=== PATIENT | female | born 1955 | race Caucasian/White ===

== ENCOUNTER → 2016-09-16 | Outpatient (REF) | payer OTHER ==
[~2016-09-16] MED LIST: /AMIT10TA PO; /ESOM40CA PO; /PRAV20TA PO; /RISE30TA PO; AMIT10TA PO; AMLO5TAB2 PO; CALC-204 PO; CELE50CA PO; CO Q100C10 PO; COLA50CA3 PO; COZA100T2 PO; CYMB1CAP PO; CYMB60CA3 PO; DETR4CAP PO; FISH500C PO; FOLI5INJ2 PO; HYDR-3713 PO; HYDR-3719 PO; HYDR200T3 PO; MAGN250T9 PO; METH2.5TA PO; NEXI40CA PO; PRIL20CA PO; PROL60SO SC; SKEL-29 PO; TOPA25TA10 PO; TRAM50TA2 PO; VICO5TAB16 PO; [UNRECOGNIZED DRUG - OTHER] PO; ambien PO; magnesium sulfate PO
== END | disposition home or self-care (01) ==
LOC: M SMT 17:13
PROVIDERS: ATTEND Nurse Practitioner Women's Health
DX: R32 Unspecified urinary incontinence (principal)

== ENCOUNTER → 2016-10-06 | Outpatient (CLI) | payer OTHER ==
--- NOTE | 2016-10-07 00:29 | ECWPNPC ---
PATIENT NAME: DUY RODRIGUEZ : 1955 GENDER: FEMALE VISIT DATE: 10/06/2016 DISCHARGE DATE: 10/06/16 0946 VISIT LOCKED DATE TIME: PHYSICIAN: ADRIANA ALLISON RESOURCE: ADRIANA ALLISON REASON FOR APPOINTMENT 1. FOLLOW UP HISTORY OF PRESENT ILLNESS HISTORY OF PRESENT ILLNESS: HERE FOR F/U AND MANAGEMENT OF CHRONIC GENERALIZED TORSO PAIN.RATING PAIN VAS 2/10.STATES SHE WAS DIAGNOSED WITH MULTIPLE SCLEROSISONE MOS. AGO.HAVING HEADACHES.USING TRAMADOL PRN AND VERY SPARINGLY.ON PREDNISONE 10MG DAILY.RESTARTED ON CELEBREX 100MG BID FROM RHEUMATOLOGY DR. 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 PAIN THE PATIENT DESCRIBES THE PAIN... FALL RISK SCREENING: SCREENING :NO FALLS IN THE PAST YEAR CURRENT MEDICATIONS TAKING AMLODIPINE 5MG TABLET 1 TAB ORAL ONCE DAILY TAKING CALCIUM 500 500-250-200 MG-MG-UNIT TABLET 1 TABLET WITH A MEAL ORALLY TWICE DAILY TAKING CO ENZYME Q-10 100 MG ORALLY ONCE A DAY TAKING COZAAR 100 MG TABLET 1 TABLET ORALLY ONCE A DAY TAKING CYMBALTA 60 MG CAPSULE DELAYED RELEASE PARTICLES 1 CAPSULE ORALLY ONCE A DAY AT BEDTIME TAKING DETROL LA 4 MG CAPSULE EXTENDED RELEASE 24 HOUR 1 CAPSULE ORALLY ONCE A DAY TAKING FOLIC ACID 1 MG TABLET 1 TABLET ORALLY ONCE A DAY TAKING NEXIUM 40 MG PACKET 1 CAPSULE ORALLY TWICE DAILY TAKING COLACE 100 MG CAPSULE 1 CAPSULE NEEDED ORALLY TWICE A DAY TAKING AMBIEN 5 MG TABLET 1 TABLET AT BEDTIME NEEDED ORALLY ONCE A DAY TAKING CYMBALTA 30 MG CAPSULE DELAYED RELEASE PARTICLES ORALLY ONCE A DAY IN AM TAKING ASPIR-81 81 MG TABLET DELAYED RELEASE 1 TABLET ORALLY ONCE A DAY TAKING METHOTREXATE 2.5 MG TABLET ORALLY DIRECTED, NOTES: WEEKLY ON TUESDAY TAKING CRESTOR 40 MG TABLET 1 TABLET ORALLY ONCE A DAY TAKING TRAMADOL HCL 50 MG TABLET 1-2 TAB ORALLY Q8H PRN MDD4 TAKING FISH OIL 500 MG CAPSULE 1 CAPSULE ORALLY DAILY TAKING PREDNISONE 10 MG TABLET 1 TABLET ORALLY BID TAKING CELEBREX 100 MG CAPSULE 1 CAPSULE ORALLY TWICE A DAY TAKING ELAVIL 10 MG TABLET 1 TABLET ORALLY ONCE A DAY NOT-TAKING SKELAXIN 800 MG TABLET 1 TABLET ORALLY THREE TIMES A DAY NOT-TAKING TOPIRAMATE 100 MG TABLET 1 TABLET ORALLY TWICE A DAY NOT-TAKING ATENOLOL 100 MG TABLET 1 TABLET ORALLY ONCE A DAY NOT-TAKING NORCO 5-325 MG TABLET 1-2 TAB ORALLY Q4-6H PRN MDD 8 NOT-TAKING VALTREX 1 GM TABLET ORALLY 1TIMES A DAY NOT-TAKING GABAPENTIN 300 MG TABLET ORALLY FOUR TIMES DAILY NOT-TAKING NICODERM CQ 7 MG/24HR PATCH 24 HOUR 1 PATCH TO SKIN TRANSDERMAL ONCE A DAY NOT-TAKING LYRICA 100 MG CAPSULE 1 CAPSULE ORALLY TWICE A DAY MDD2 NOT-TAKING VICODIN 5-500 MG TABLET 1 CAP ORALLY THREE TIMES DAILY NEEDED NOT-TAKING RESTASIS 0.05 % EMULSION 1 INTO AFFECTED EYE OPHTHALMIC TWICE A DAY NOT-TAKING LOSARTAN POTASSIUM 25 MG TABLET 1 TABLET ORALLY ONCE A DAY NOT-TAKING PROLIA 60MG/ML SUBCUTANEOUSLY DIRECTED NOT-TAKING OCUVITE ADULT 50+ 1 1 TAB ORALLY ONCE DAILY UNKNOWN CYMBALTA 60 MG CAPSULE DELAYED RELEASE PARTICLES 1 CAPSULE ORALLY BEFORE BEDTIME MEDICATION LIST REVIEWED AND RECONCILED WITH THE PATIENT PAST MEDICAL HISTORY BONE SPURS BOTH HIPS OSTEOPENIA URINARY INCONTINENCE HYPERCHOLESTEROLEMIA PERIODIC CONSTIPATION HTN CERVICALGIA AINCOMPLETE ROTATR-CUFF TEAR/RUPTR OF LEFT SHOULDER, NOT TRAUMA 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 NEW PATIENT PAIN DIARY TODAY'S VISITNOTES FROM 0-10, WHAT LEVEL IS YOUR PAIN TODAY?0 PAIN CLINIC PFS, CLERGY, PUBLIC HEALTH REFERRALS PFS REFERRAL NEEDED?NO CLERGY REFERRAL NEEDED?NO PUBLIC HEALTH REFERRAL NEEDED?NO WAS THE PROVIDER NOTIFIED OF ANY PERTINENT INFO?NO PFS REFERRAL NEEDED?NO CLERGY REFERRAL NEEDED?NO PUBLIC HEALTH REFERRAL NEEDED?NO WAS THE PROVIDER NOTIFIED OF ANY PERTINENT INFO?NO REVIEW OF SYSTEMS CONSTITUTIONAL: ANY CHANGE IN YOUR MEDICAL CONDITION? NO . RECENT ILLNESS DENIES . CHILLS NO . FEVER NO . WEIGHT LOSS DENIES . INFECTION: DO YOU HAVE NEW INFECTIONS? NO . DO YOU HAVE HISTORY OF MRSA? NO . MUSCULOSKELETAL: ANY NEW PATTERNS OF PAIN OR NUMBNESS? NO . GASTROENTEROLOGY: ANY NEW CHANGE IN BOWEL CONTROL? NO . GENITOURINARY: ANY NEW CHANGE IN BLADDER CONTROL? NO . IS THERE A CHANCE YOU COULD BE ? NO . HEMATOLOGY/LYMPH: DO YOU TAKE ANY BLOOD THINNERS? (FOR EXAMPLE- COUMADIN, PLAVIX, AGGRENOX, PLATEL, PRADAXA, OR XARELTO) NO . WHEN WAS YOUR LAST DOSE? DATE: TIME: . NEUROLOGY: HAVE YOU FALLEN IN THE PAST 6 MONTHS? NO . ANY NEW EXTREMITY NUMBNESS OR WEAKNESS? NO . CARDIOLOGY: DO YOU HAVE A PACEMAKER OR DEFIBRILLATOR? NO . CHEST PAIN DENIES . SHORTNESS OF BREATH DENIES . RESPIRATORY: HAVE YOU BEEN SICK IN THE PAST WEEK? NO . FEVER NO . FLU LIKE SYMPTOMS? NO . COUGH NO, DENIES . SHORTNESS OF BREATH DENIES . INTEGUMENTARY: DO YOU HAVE ANY RASHES OR OPEN SORES? NO . ALLERGIC/IMMUNO: ARE YOU ALLERGIC TO SHELLFISH OR IV DYE? NO . ANY NEW ALLERGIES? NO . PSYCHIATRIC: DO YOU HAVE THOUGHTS OF HURTING YOURSELF OR SOMEONE ELSE? NO . ARE YOU ABUSED, NEGLECTED, OR IN AN UNSAFE ENVIRONMENT? NO . ENDOCRINOLOGY: ARE YOU DIABETIC? NO . OTHER: DO YOU NEED ANY PRESCRIPTIONS? NO . IF YES, PLEASE LIST: ____ . ANY NEW PROBLEMS WITH YOUR MEDICATIONS? NO . WHEN DID YOU LAST EAT? ____ . WHEN DID YOU LAST DRINK? ____ . WHAT DID YOU LAST DRINK? ____ . NAME OF PERSON DRIVING YOU HOME? ____ . DO YOU HAVE ANY OTHER QUESTIONS OR CONCERNS NO . REVIEWED BY: PROVIDER: ADRIANA RICHMOND . REPORTS NUMBNESS IN HAND AND FEET.RECENT DIAGNOSIS OF MULTIPLE SCLEROSIS. VITAL SIGNS WT 125 LBS, HT 60 IN, BMI 24.41 INDEX, BP 155/73 MM HG, HR 108 /MIN, RR 16 /MIN, TEMP 98.7 F, OXYGEN SAT % 98, NA INITIALS TL 0835, REVIEWED BY: KG. EXAMINATION GENERAL EXAMINATION: LUNGS:LUNG SOUNDS ARE CLEAR. HEART:HEART RATE REGULAR. MUSCULOSKELETAL:*MUSCLE STRENGTH TESTING UPPER AND LOWER EXTREMITIES SHOWING WEAKNESS L>R.CLONUS NOTED BILAT LOWER EXTREMITIES.DTR-4+BILAT LOWER EXTREMITIES.MULTIPLE AREAS OF TENDER SPOTS INDICATIVE OF PMR/FIBROMYALGIA.. DIAGNOSTIC: . 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 IT IS NOT A COPY OF THE [employer] PROGRESS NOTE. ED
== END ==
LOC: M PAIN 08:40
PROVIDERS: ATTEND Nurse Practitioner Family
DX: Z09 Encounter for follow-up examination after completed treatment for conditions other than malignant neoplasm (principal); G89.29 Other chronic pain; M35.3 Polymyalgia rheumatica; G35 Multiple sclerosis; M54.5 Low back pain; M47.812 Spondylosis without myelopathy or radiculopathy, cervical region; M85.80 Other specified disorders of bone density and structure, unspecified site; E78.00 Pure hypercholesterolemia, unspecified; I65.21 Occlusion and stenosis of right carotid artery; I10 Essential (primary) hypertension; G25.0 Essential tremor; G46.7 Other lacunar syndromes; Z88.0 Allergy status to penicillin; Z88.8 Allergy status to other drugs, medicaments and biological substances; Z79.82 Long term (current) use of aspirin; Z79.891 Long term (current) use of opiate analgesic; Z79.52 Long term (current) use of systemic steroids; Z79.899 Other long term (current) drug therapy; Z86.73 Personal history of transient ischemic attack (TIA), and cerebral infarction without residual deficits

== ENCOUNTER → 2017-01-12 | Outpatient (CLI) | payer OTHER ==
--- NOTE | 2017-02-02 01:43 | ECWPNPC ---
PATIENT NAME: DUY RODRIGUEZ : 1955 GENDER: FEMALE VISIT DATE: 01/12/2017 DISCHARGE DATE: 01/12/17 1208 VISIT LOCKED DATE TIME: PHYSICIAN: ADRIANA ALLISON RESOURCE: ADRIANA ALLISON REASON FOR APPOINTMENT 1. CHRONIC PAIN HISTORY OF PRESENT ILLNESS HISTORY OF PRESENT ILLNESS: HERE FOR FOLLOW UP OF CHRONIC LOW BACK PAIN AND SHOULDER AND NECK PAIN.RECENTLY HAD 4 MONTHS DOSE PACK OF PREDNISONE WITH SOME IMPROVEMENT IN PAIN.USING HYDROCODONE 5/325 UP TO 4 TABS PER DAY THAT IS SOMEWHAT HELPFUL.RATING PAIN VAS 6/10.PAIN IS LOCATED MAINLY IN NECK AND JOINTS.DESCRIBES PAIN INTERMITTENT BURNING AND ACHING.PAIN IS AGGREVATED BY INCREASED ACTIVITY. FALL RISK SCREENING: SCREENING :NO FALLS IN THE PAST YEAR CURRENT MEDICATIONS TAKING AMLODIPINE 5MG TABLET 1 TAB ORAL ONCE DAILY TAKING CALCIUM 500 500-250-200 MG-MG-UNIT TABLET 1 TABLET WITH A MEAL ORALLY TWICE DAILY TAKING CO ENZYME Q-10 100 MG ORALLY ONCE A DAY TAKING COZAAR 100 MG TABLET 1 TABLET ORALLY ONCE A DAY TAKING CYMBALTA 60 MG CAPSULE DELAYED RELEASE PARTICLES 1 CAPSULE ORALLY ONCE A DAY AT BEDTIME TAKING DETROL LA 4 MG CAPSULE EXTENDED RELEASE 24 HOUR 1 CAPSULE ORALLY ONCE A DAY TAKING FOLIC ACID 1 MG TABLET 1 TABLET ORALLY ONCE A DAY TAKING NEXIUM 40 MG PACKET 1 CAPSULE ORALLY TWICE DAILY TAKING COLACE 100 MG CAPSULE 1 CAPSULE NEEDED ORALLY TWICE A DAY TAKING AMBIEN 5 MG TABLET 1 TABLET AT BEDTIME NEEDED ORALLY ONCE A DAY TAKING CYMBALTA 30 MG CAPSULE DELAYED RELEASE PARTICLES ORALLY ONCE A DAY IN AM TAKING ASPIR-81 81 MG TABLET DELAYED RELEASE 1 TABLET ORALLY ONCE A DAY TAKING METHOTREXATE 2.5 MG TABLET 6 TABS ORALLY DIRECTED, NOTES: WEEKLY ON TUESDAY TAKING CRESTOR 40 MG TABLET 1 TABLET ORALLY ONCE A DAY TAKING FISH OIL 500 MG CAPSULE 1 CAPSULE ORALLY DAILY TAKING CELEBREX 100 MG CAPSULE 1 CAPSULE ORALLY TWICE A DAY TAKING ELAVIL 10 MG TABLET 1 TABLET ORALLY ONCE A DAY TAKING NORCO 5-325 MG TABLET 1-2 TAB ORALLY Q4-6H PRN PAIN MDD4 TAKING COLACE 100 MG CAPSULE 1 CAPSULE NEEDED ORALLY ONCE A DAY NOT-TAKING PREDNISONE 10 MG TABLET 1 TABLET ORALLY BID NOT-TAKING TRAMADOL HCL 50 MG TABLET 1-2 TAB ORALLY Q8H PRN MDD4 NOT-TAKING SKELAXIN 800 MG TABLET 1 TABLET ORALLY THREE TIMES A DAY NOT-TAKING TOPIRAMATE 100 MG TABLET 1 TABLET ORALLY TWICE A DAY NOT-TAKING ATENOLOL 100 MG TABLET 1 TABLET ORALLY ONCE A DAY NOT-TAKING VALTREX 1 GM TABLET ORALLY 1TIMES A DAY NOT-TAKING GABAPENTIN 300 MG TABLET ORALLY FOUR TIMES DAILY NOT-TAKING NICODERM CQ 7 MG/24HR PATCH 24 HOUR 1 PATCH TO SKIN TRANSDERMAL ONCE A DAY NOT-TAKING LYRICA 100 MG CAPSULE 1 CAPSULE ORALLY TWICE A DAY MDD2 NOT-TAKING VICODIN 5-500 MG TABLET 1 CAP ORALLY THREE TIMES DAILY NEEDED NOT-TAKING RESTASIS 0.05 % EMULSION 1 INTO AFFECTED EYE OPHTHALMIC TWICE A DAY NOT-TAKING LOSARTAN POTASSIUM 25 MG TABLET 1 TABLET ORALLY ONCE A DAY NOT-TAKING PROLIA 60MG/ML SUBCUTANEOUSLY DIRECTED NOT-TAKING OCUVITE ADULT 50+ 1 1 TAB ORALLY ONCE DAILY UNKNOWN CYMBALTA 60 MG CAPSULE DELAYED RELEASE PARTICLES 1 CAPSULE ORALLY BEFORE BEDTIME MEDICATION LIST REVIEWED AND RECONCILED WITH THE PATIENT PAST MEDICAL HISTORY BONE SPURS BOTH HIPS OSTEOPENIA URINARY INCONTINENCE HYPERCHOLESTEROLEMIA PERIODIC CONSTIPATION HTN CERVICALGIA AINCOMPLETE ROTATR-CUFF TEAR/RUPTR OF LEFT SHOULDER, NOT TRAUMA TIA 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 NO . CHILLS NO . FEVER NO . INFECTION: DO YOU HAVE NEW INFECTIONS? NO . DO YOU HAVE HISTORY OF MRSA? NO . MUSCULOSKELETAL: ANY NEW PATTERNS OF PAIN OR NUMBNESS? YES ARMS LEGS/ . GASTROENTEROLOGY: ANY NEW CHANGE IN BOWEL CONTROL? NO . GENITOURINARY: ANY NEW CHANGE IN BLADDER CONTROL? NO . IS THERE A CHANCE YOU COULD BE ? NO . HEMATOLOGY/LYMPH: DO YOU TAKE ANY BLOOD THINNERS? (FOR EXAMPLE- COUMADIN, PLAVIX, AGGRENOX, PLATEL, PRADAXA, OR XARELTO) NO . WHEN WAS YOUR LAST DOSE? DATE: TIME: . NEUROLOGY: HAVE YOU FALLEN IN THE PAST 6 MONTHS? NO . ANY NEW EXTREMITY NUMBNESS OR WEAKNESS? NO . CARDIOLOGY: DO YOU HAVE A PACEMAKER OR DEFIBRILLATOR? NO . RESPIRATORY: HAVE YOU BEEN SICK IN THE PAST WEEK? NO . FEVER NO . FLU LIKE SYMPTOMS? NO . COUGH NO . INTEGUMENTARY: DO YOU HAVE ANY RASHES OR OPEN SORES? NO . ALLERGIC/IMMUNO: ARE YOU ALLERGIC TO SHELLFISH OR IV DYE? NO . ANY NEW ALLERGIES? NO . PSYCHIATRIC: DO YOU HAVE THOUGHTS OF HURTING YOURSELF OR SOMEONE ELSE? NO . ARE YOU ABUSED, NEGLECTED, OR IN AN UNSAFE ENVIRONMENT? NO . ENDOCRINOLOGY: ARE YOU DIABETIC? NO . OTHER: DO YOU NEED ANY PRESCRIPTIONS? NO . IF YES, PLEASE LIST: ____ . ANY NEW PROBLEMS WITH YOUR MEDICATIONS? NO . WHEN DID YOU LAST EAT? ____ . WHEN DID YOU LAST DRINK? ____ . WHAT DID YOU LAST DRINK? ____ . NAME OF PERSON DRIVING YOU HOME? ____ . DO YOU HAVE ANY OTHER QUESTIONS OR CONCERNS NO . REVIEWED BY: PROVIDER: ADRIANA RICHMOND . VITAL SIGNS WT 139.0 LBS, HT 60 IN, BMI 27.14 INDEX, BP 128/69 MM HG, HR 98 /MIN, RR 16 /MIN, TEMP 97.9 F, OXYGEN SAT % 96%, SAFE IN ENV? (Y/N) YES, NA INITIALS TL 1110, REVIEWED BY: KG. EXAMINATION GENERAL EXAMINATION: LUNGS:LUNG SOUNDS ARE CLEAR. HEART:HEART RATE REGULAR. MUSCULOSKELETAL:*MUSCLE STRENGTH TESTING UPPER AND LOWER EXTREMITIES SHOWING WEAKNESS L>R.CLONUS NOTED BILAT LOWER EXTREMITIES.DTR-4+BILAT LOWER EXTREMITIES.MULTIPLE AREAS OF TENDER SPOTS INDICATIVE OF PMR/FIBROMYALGIA.. DIAGNOSTIC: . 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 BRINGS IN MEDICATIONS WHICH IS APPROPRIATE FOR WHAT WAS DISPENSED. RECENT URINE TOXICOLOGY REVIEWED. NO UNAUTHORIZED MEDICATIONS. NO ILLICIT SUBSTANCES AND PRESCRIBED MEDICATIONS WERE PRESENT. , RISKS AND BENEFITS OF NARCOTIC/OPIOD MEDICATIONS WERE REVIEWED WITH PATIENT - THIS INCLUDES BUT IS NOT LIMITED TO RISK OF DEPENDANCE/DEVELOPMENT OF ADDICTION, MOOD DISTURBANCE AND DEPRESSION, OSTEOPOROSIS, HORMONAL AND LABIDAL CHANGES, RESPIRATORY DEPRESSION AND . PATIENT IS ADVISED NOT TO DRIVE WHILE ON THESE MEDICATIONS. PROCEDURE CODES FA211 ESTABILISHED PATIENT [facility] CHARGE DISPOSITION & COMMUNICATION FOLLOW UP 4 WEEKS ELECTRONICALLY SIGNED BY YI PENNY ON 02/01/2017 AT 04:53 PM EDT DISCLAIMER : THIS IS A VISIT SUMMARY EXTRACTED FROM THE [employer] CHART. IT IS NOT A COPY OF THE [employer] PROGRESS NOTE. ED
== END ==
LOC: M PAIN 11:00
PROVIDERS: ATTEND Nurse Practitioner Family
DX: G89.29 Other chronic pain (principal); M47.12 Other spondylosis with myelopathy, cervical region; M85.80 Other specified disorders of bone density and structure, unspecified site; E78.00 Pure hypercholesterolemia, unspecified; K59.00 Constipation, unspecified; I10 Essential (primary) hypertension; M35.3 Polymyalgia rheumatica; I65.22 Occlusion and stenosis of left carotid artery; G35 Multiple sclerosis; G46.7 Other lacunar syndromes; G25.0 Essential tremor; Z86.73 Personal history of transient ischemic attack (TIA), and cerebral infarction without residual deficits; Z79.891 Long term (current) use of opiate analgesic; Z79.82 Long term (current) use of aspirin; Z79.899 Other long term (current) drug therapy; Z88.0 Allergy status to penicillin; Z88.1 Allergy status to other antibiotic agents

== ENCOUNTER → 2017-02-11 | Outpatient (CLI) | payer OTHER ==
--- NOTE | 2017-02-23 23:45 | ECWPNPC ---
PATIENT NAME: DUY RODRIGUEZ : 1955 GENDER: FEMALE VISIT DATE: 02/11/2017 DISCHARGE DATE: 02/11/17 1003 VISIT LOCKED DATE TIME: PHYSICIAN: ADRIANA ALLISON RESOURCE: ADRIANA ALLISON REASON FOR APPOINTMENT 1. L SHOULDER HISTORY OF PRESENT ILLNESS HISTORY OF PRESENT ILLNESS: HERE FOR F/U OF GENERALIZED BACK PAIN AND UPPER BACK PAIN L>R.USING HYDROCODONE 5/325 Q6H PRN FOR SEVERE PAIN WITH SOME IMPROVEMENT.RATING PAIN VAS 7/10 MAINLY LEFT SHOULDER.PAIN IS AGGREVATED BY USE OF LEFT ARM.PATIENT STATES SHE WAS UPSET AT OUR LAST VISIT AFTER OUR DISCUSSION ON USE OF HYDROCODONE ON A SCHEDULED BASIS 4X PER DAY.WE TOLD HER WE DIDNT WANT HER TO TAKE IT 4X DAY AND ONLY TO USE IT PRN FOR SEVERE PAIN EPISODES #60 FOR ONE MONTH SUPPLY.SHE HAS TAKEN HERSELF OFF MEDICATION WE WANTED HER ON AND HAS RESTARTED HYDROCODONE ON A SCHEDULED BASIS.SHE THOUGHT I WAS ACCUSING HER OF DRUG SEEKING.SHE HAS NOT BEEN HERE ON A REGULAR BASIS AND JAYDA INFORMED HER THAT WE HAVE TO MONITOR THESE MEDICATIONS ON A MONTHLY BASIS.SHE DID SEEM TO UNDERSTAND OUR POSITION AFTER MUCH DISCUSSION TODAY. PAIN THE PATIENT DESCRIBES THE PAIN... FALL RISK SCREENING: SCREENING :NO FALLS IN THE PAST YEAR CURRENT MEDICATIONS TAKING CALCIUM 500 500-250-200 MG-MG-UNIT TABLET 1 TABLET WITH A MEAL ORALLY TWICE DAILY TAKING CO ENZYME Q-10 100 MG ORALLY ONCE A DAY TAKING COZAAR 100 MG TABLET 1 TABLET ORALLY ONCE A DAY TAKING CYMBALTA 60 MG CAPSULE DELAYED RELEASE PARTICLES 1 CAPSULE ORALLY ONCE A DAY AT BEDTIME TAKING DETROL LA 4 MG CAPSULE EXTENDED RELEASE 24 HOUR 1 CAPSULE ORALLY ONCE A DAY TAKING FOLIC ACID 1 MG TABLET 1 TABLET ORALLY ONCE A DAY TAKING NEXIUM 40 MG PACKET 1 CAPSULE ORALLY TWICE DAILY TAKING COLACE 100 MG CAPSULE 1 CAPSULE NEEDED ORALLY TWICE A DAY TAKING AMBIEN 5 MG TABLET 1 TABLET AT BEDTIME NEEDED ORALLY ONCE A DAY TAKING ASPIR-81 81 MG TABLET DELAYED RELEASE 1 TABLET ORALLY ONCE A DAY TAKING METHOTREXATE 2.5 MG TABLET 6 TABS ORALLY DIRECTED, NOTES: WEEKLY ON TUESDAY TAKING CRESTOR 40 MG TABLET 1 TABLET ORALLY ONCE A DAY TAKING FISH OIL 500 MG CAPSULE 1 CAPSULE ORALLY DAILY TAKING CELEBREX 100 MG CAPSULE 1 CAPSULE ORALLY TWICE A DAY TAKING NORCO 5-325 MG TABLET 1 ORALLY Q4-6H PRN MDD2 #60 TAB.SHOULD LAST 30 DAYS TAKING VITAMIN D3 1000 UNIT TABLET 1 TABLET ORALLY ONCE A DAY TAKES 3000 UNITS PER DAY NOT-TAKING AMLODIPINE 5MG TABLET 1 TAB ORAL ONCE DAILY NOT-TAKING CYMBALTA 30 MG CAPSULE DELAYED RELEASE PARTICLES ORALLY ONCE A DAY IN AM NOT-TAKING ELAVIL 10 MG TABLET 1 TABLET ORALLY ONCE A DAY NOT-TAKING COLACE 100 MG CAPSULE 1 CAPSULE NEEDED ORALLY ONCE A DAY NOT-TAKING PREDNISONE 10 MG TABLET 1 TABLET ORALLY BID NOT-TAKING TRAMADOL HCL 50 MG TABLET 1-2 TAB ORALLY Q8H PRN MDD4 NOT-TAKING SKELAXIN 800 MG TABLET 1 TABLET ORALLY THREE TIMES A DAY NOT-TAKING TOPIRAMATE 100 MG TABLET 1 TABLET ORALLY TWICE A DAY NOT-TAKING ATENOLOL 100 MG TABLET 1 TABLET ORALLY ONCE A DAY NOT-TAKING VALTREX 1 GM TABLET ORALLY 1TIMES A DAY NOT-TAKING GABAPENTIN 300 MG TABLET ORALLY FOUR TIMES DAILY NOT-TAKING NICODERM CQ 7 MG/24HR PATCH 24 HOUR 1 PATCH TO SKIN TRANSDERMAL ONCE A DAY NOT-TAKING LYRICA 100 MG CAPSULE 1 CAPSULE ORALLY TWICE A DAY MDD2 NOT-TAKING VICODIN 5-500 MG TABLET 1 CAP ORALLY THREE TIMES DAILY NEEDED NOT-TAKING RESTASIS 0.05 % EMULSION 1 INTO AFFECTED EYE OPHTHALMIC TWICE A DAY NOT-TAKING LOSARTAN POTASSIUM 25 MG TABLET 1 TABLET ORALLY ONCE A DAY NOT-TAKING PROLIA 60MG/ML SUBCUTANEOUSLY DIRECTED NOT-TAKING OCUVITE ADULT 50+ 1 1 TAB ORALLY ONCE DAILY UNKNOWN CYMBALTA 60 MG CAPSULE DELAYED RELEASE PARTICLES 1 CAPSULE ORALLY BEFORE BEDTIME MEDICATION LIST REVIEWED AND RECONCILED WITH THE PATIENT PAST MEDICAL HISTORY BONE SPURS BOTH HIPS OSTEOPENIA URINARY INCONTINENCE HYPERCHOLESTEROLEMIA PERIODIC CONSTIPATION HTN CERVICALGIA AINCOMPLETE ROTATR-CUFF TEAR/RUPTR OF LEFT SHOULDER, NOT TRAUMA 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 NEW PATIENT PAIN DIARY TODAY'S VISITNOTES FROM 0-10, WHAT LEVEL IS YOUR PAIN TODAY?0 PAIN CLINIC PFS, CLERGY, PUBLIC HEALTH REFERRALS PFS REFERRAL NEEDED?NO CLERGY REFERRAL NEEDED?NO PUBLIC HEALTH REFERRAL NEEDED?NO WAS THE PROVIDER NOTIFIED OF ANY PERTINENT INFO?NO HAS THE PATIENT BEEN EDUCATED REGARDING HIS/HER PLAN OF CARE?YES HAS THE PATIENT BEEN EDUCATED REGARDING PAIN, THE RISK FOR PAIN, THE IMPORTANCE OF EFFECTIVE PAIN MANAGEMENT, AND THE PAIN ASSESSMENT PROCESS?YES REVIEW OF SYSTEMS REVIEWED BY: PROVIDER: ADRIANA RICHMNOD . CONSTITUTIONAL: ANY CHANGE IN YOUR MEDICAL CONDITION? YES, DR. STOKES THINKS PATIENT HAS MS . CHILLS NO . FEVER NO . INFECTION: DO YOU HAVE NEW INFECTIONS? NO . DO YOU HAVE HISTORY OF MRSA? NO . MUSCULOSKELETAL: ANY NEW PATTERNS OF PAIN OR NUMBNESS? YES, NUMBNESS AND TINGLING NOW IN LEFT ARM . GASTROENTEROLOGY: ANY NEW CHANGE IN BOWEL CONTROL? NO . GENITOURINARY: ANY NEW CHANGE IN BLADDER CONTROL? NO . IS THERE A CHANCE YOU COULD BE ? NO . HEMATOLOGY/LYMPH: DO YOU TAKE ANY BLOOD THINNERS? (FOR EXAMPLE- COUMADIN, PLAVIX, AGGRENOX, PLATEL, PRADAXA, OR XARELTO) NO . WHEN WAS YOUR LAST DOSE? DATE: TIME: . NEUROLOGY: HAVE YOU FALLEN IN THE PAST 6 MONTHS? NO . ANY NEW EXTREMITY NUMBNESS OR WEAKNESS? NO . CARDIOLOGY: DO YOU HAVE A PACEMAKER OR DEFIBRILLATOR? NO . RESPIRATORY: HAVE YOU BEEN SICK IN THE PAST WEEK? NO . FEVER NO . FLU LIKE SYMPTOMS? NO . COUGH NO . INTEGUMENTARY: DO YOU HAVE ANY RASHES OR OPEN SORES? NO . ALLERGIC/IMMUNO: ARE YOU ALLERGIC TO SHELLFISH OR IV DYE? NO . ANY NEW ALLERGIES? NO . PSYCHIATRIC: DO YOU HAVE THOUGHTS OF HURTING YOURSELF OR SOMEONE ELSE? NO . ARE YOU ABUSED, NEGLECTED, OR IN AN UNSAFE ENVIRONMENT? NO . ENDOCRINOLOGY: ARE YOU DIABETIC? NO . OTHER: DO YOU NEED ANY PRESCRIPTIONS? NO . IF YES, PLEASE LIST: ____ . ANY NEW PROBLEMS WITH YOUR MEDICATIONS? NO . WHEN DID YOU LAST EAT? ____ . WHEN DID YOU LAST DRINK? ____ . WHAT DID YOU LAST DRINK? ____ . NAME OF PERSON DRIVING YOU HOME? ____ . DO YOU HAVE ANY OTHER QUESTIONS OR CONCERNS NO . VITAL SIGNS WT 135 LBS, HT 60 IN, BMI 26.36 INDEX, BP 159/74 MM HG, HR 96 /MIN, RR 16 /MIN, TEMP 96.9 F, OXYGEN SAT % 97%, REVIEWED BY: MAINOR (DONE AT 0925). EXAMINATION GENERAL EXAMINATION: LUNGS:LUNG SOUNDS ARE CLEAR. HEART:HEART RATE REGULAR. MUSCULOSKELETAL:*MUSCLE STRENGTH TESTING UPPER AND LOWER EXTREMITIES SHOWING WEAKNESS L>R.CLONUS NOTED BILAT LOWER EXTREMITIES.DTR-4+BILAT LOWER EXTREMITIES.MULTIPLE AREAS OF TENDER SPOTS INDICATIVE OF PMR/FIBROMYALGIA., TRIGGER POINTS:LEFT UPPER BACK. DIAGNOSTIC:MRI C-SPINE [id number]. 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 BRINGS IN MEDICATIONS WHICH IS APPROPRIATE FOR WHAT WAS DISPENSED. RECENT URINE TOXICOLOGY REVIEWED. NO UNAUTHORIZED MEDICATIONS. NO ILLICIT SUBSTANCES AND PRESCRIBED MEDICATIONS WERE PRESENT. , RISKS AND BENEFITS OF NARCOTIC/OPIOD MEDICATIONS WERE REVIEWED WITH PATIENT - THIS INCLUDES BUT IS NOT LIMITED TO RISK OF DEPENDANCE/DEVELOPMENT OF ADDICTION, MOOD DISTURBANCE AND DEPRESSION, OSTEOPOROSIS, HORMONAL AND LABIDAL CHANGES, RESPIRATORY DEPRESSION AND . PATIENT IS ADVISED NOT TO DRIVE WHILE ON THESE MEDICATIONS. PREVENTIVE MEDICINE PAIN CLINIC TEACHING: PROCEDURE TEACHING PRE-PROCEDURE INSTRUCTIONS GIVEN TO PATIENT AND QUESTIONS ANSWERED. PROCEDURE CODES FA211 ESTABILISHED PATIENT [facility] CHARGE DISPOSITION & COMMUNICATION FOLLOW UP 2WK POST (REASON: TPI LEFT SHOULDER) ELECTRONICALLY SIGNED BY YI PENNY ON 02/23/2017 AT 04:51 PM EDT DISCLAIMER : THIS IS A VISIT SUMMARY EXTRACTED FROM THE [employer] CHART. IT IS NOT A COPY OF THE [employer] PROGRESS NOTE. MTDD
== END ==
LOC: M PAIN 09:00
PROVIDERS: ATTEND Nurse Practitioner Family
DX: G89.29 Other chronic pain (principal); M47.12 Other spondylosis with myelopathy, cervical region; M25.512 Pain in left shoulder; M85.80 Other specified disorders of bone density and structure, unspecified site; E78.00 Pure hypercholesterolemia, unspecified; K59.00 Constipation, unspecified; I10 Essential (primary) hypertension; I65.21 Occlusion and stenosis of right carotid artery; R33.9 Retention of urine, unspecified; G25.0 Essential tremor; G35 Multiple sclerosis; M35.3 Polymyalgia rheumatica; Z79.891 Long term (current) use of opiate analgesic; Z79.52 Long term (current) use of systemic steroids; Z86.73 Personal history of transient ischemic attack (TIA), and cerebral infarction without residual deficits; Z79.899 Other long term (current) drug therapy; Z88.0 Allergy status to penicillin; Z88.1 Allergy status to other antibiotic agents

== ENCOUNTER → 2017-05-20 | Outpatient (CLI) | payer OTHER ==
[~2017-05-20] MED LIST changes: +PREG50CA; +SERT-155; -SKEL-29 PO; +SKEL800T97 PO; +TOPA1TAB PO; -TOPA25TA10 PO; +ZOLP5TAB
--- NOTE | 2017-06-12 23:35 | ECWPNPC ---
PATIENT NAME: DUY RODRIGUEZ : 1955 GENDER: FEMALE VISIT DATE: 05/20/2017 DISCHARGE DATE: 05/20/17 1352 VISIT LOCKED DATE TIME: PHYSICIAN: ADRIANA ALLISON RESOURCE: ADRIANA ALLISON REASON FOR APPOINTMENT 1. FIBRO HISTORY OF PRESENT ILLNESS HISTORY OF PRESENT ILLNESS: HERE FOR F/U OF GENERALIZED BACK PAIN AND UPPER BACK PAIN.HAVING SEVERE INCREASE IN PAIN AND PARATHESIAS LATELY.USING HYDROCODONE 5/325 Q6H PRN FOR SEVERE PAIN WITH SOME IMPROVEMENT.RATING PAIN VAS 8/10.DESCRIBES PAIN CONSTANT,BURNING AND ACHING.ACCOMPANIED IN EXAM ROOM WITH .SHE ADMITS TO NOT BEING ABLE TO GO OUT AND TOLERATE ADL'S DUE TO PSIN BEING OUT OF CONTROL,SHE IS DEPRESSED BUT DENIES ACTIVE SUICIDAL THOUGHTS.DISCUSSED MEDICINE AND TREATMENT OPTIONS. PAIN THE PATIENT DESCRIBES THE PAIN... THE PATIENT DESCRIBES THE PAIN... FALL RISK SCREENING: SCREENING :NO FALLS IN THE PAST YEAR CURRENT MEDICATIONS TAKING CALCIUM 500 500-250-200 MG-MG-UNIT TABLET 1 TABLET WITH A MEAL ORALLY TWICE DAILY TAKING CO ENZYME Q-10 100 MG ORALLY ONCE A DAY TAKING COZAAR 100 MG TABLET 1 TABLET ORALLY ONCE A DAY TAKING CYMBALTA 60 MG CAPSULE DELAYED RELEASE PARTICLES 1 CAPSULE ORALLY ONCE A DAY AT BEDTIME TAKING DETROL LA 4 MG CAPSULE EXTENDED RELEASE 24 HOUR 1 CAPSULE ORALLY ONCE A DAY TAKING FOLIC ACID 1 MG TABLET 1 TABLET ORALLY ONCE A DAY TAKING NEXIUM 40 MG PACKET 1 CAPSULE ORALLY TWICE DAILY TAKING COLACE 100 MG CAPSULE 1 CAPSULE NEEDED ORALLY TWICE A DAY TAKING AMBIEN 5 MG TABLET 1 TABLET AT BEDTIME NEEDED ORALLY ONCE A DAY TAKING ASPIR-81 81 MG TABLET DELAYED RELEASE 1 TABLET ORALLY ONCE A DAY TAKING METHOTREXATE 2.5 MG TABLET 6 TABS ORALLY DIRECTED, NOTES: WEEKLY ON TUESDAY TAKING CRESTOR 40 MG TABLET 1 TABLET ORALLY ONCE A DAY TAKING FISH OIL 500 MG CAPSULE 1 CAPSULE ORALLY DAILY TAKING CELEBREX 100 MG CAPSULE 1 CAPSULE ORALLY TWICE A DAY TAKING VITAMIN D3 1000 UNIT TABLET 1 TABLET ORALLY ONCE A DAY TAKES 3000 UNITS PER DAY TAKING NORCO 5-325 MG TABLET 1-2 ORALLY Q4-6H PRN MDD4 #100 FOR 30 DAY SUPPLY TAKING CYMBALTA 30 MG CAPSULE DELAYED RELEASE PARTICLES ORALLY ONCE A DAY IN AM NOT-TAKING AMLODIPINE 5MG TABLET 1 TAB ORAL ONCE DAILY NOT-TAKING ELAVIL 10 MG TABLET 1 TABLET ORALLY ONCE A DAY NOT-TAKING COLACE 100 MG CAPSULE 1 CAPSULE NEEDED ORALLY ONCE A DAY NOT-TAKING PREDNISONE 10 MG TABLET 1 TABLET ORALLY BID NOT-TAKING TRAMADOL HCL 50 MG TABLET 1-2 TAB ORALLY Q8H PRN MDD4 NOT-TAKING SKELAXIN 800 MG TABLET 1 TABLET ORALLY THREE TIMES A DAY NOT-TAKING TOPIRAMATE 100 MG TABLET 1 TABLET ORALLY TWICE A DAY NOT-TAKING ATENOLOL 100 MG TABLET 1 TABLET ORALLY ONCE A DAY NOT-TAKING VALTREX 1 GM TABLET ORALLY 1TIMES A DAY NOT-TAKING GABAPENTIN 300 MG TABLET ORALLY FOUR TIMES DAILY NOT-TAKING NICODERM CQ 7 MG/24HR PATCH 24 HOUR 1 PATCH TO SKIN TRANSDERMAL ONCE A DAY NOT-TAKING LYRICA 100 MG CAPSULE 1 CAPSULE ORALLY TWICE A DAY MDD2 NOT-TAKING VICODIN 5-500 MG TABLET 1 CAP ORALLY THREE TIMES DAILY NEEDED NOT-TAKING RESTASIS 0.05 % EMULSION 1 INTO AFFECTED EYE OPHTHALMIC TWICE A DAY NOT-TAKING LOSARTAN POTASSIUM 25 MG TABLET 1 TABLET ORALLY ONCE A DAY NOT-TAKING PROLIA 60MG/ML SUBCUTANEOUSLY DIRECTED NOT-TAKING OCUVITE ADULT 50+ 1 1 TAB ORALLY ONCE DAILY UNKNOWN CYMBALTA 60 MG CAPSULE DELAYED RELEASE PARTICLES 1 CAPSULE ORALLY BEFORE BEDTIME MEDICATION LIST REVIEWED AND RECONCILED WITH THE PATIENT PAST MEDICAL HISTORY BONE SPURS BOTH HIPS OSTEOPENIA URINARY INCONTINENCE HYPERCHOLESTEROLEMIA PERIODIC CONSTIPATION HTN CERVICALGIA AINCOMPLETE ROTATR-CUFF TEAR/RUPTR OF LEFT SHOULDER, NOT TRAUMA 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 CONSTITUTIONAL: ANY CHANGE IN YOUR MEDICAL CONDITION? QUIT SMOKING IN JANUARY . CHILLS NO . FEVER NO . INFECTION: DO YOU HAVE NEW INFECTIONS? NO . DO YOU HAVE HISTORY OF MRSA? NO . MUSCULOSKELETAL: ANY NEW PATTERNS OF PAIN OR NUMBNESS? NUMB TINGLE HANDS, ARMS, LEGS. THERE IS NOT A SPOT ON MY BODY THAT DOES NOT HURT RIGHT NOW . GASTROENTEROLOGY: ANY NEW CHANGE IN BOWEL CONTROL? NO . GENITOURINARY: ANY NEW CHANGE IN BLADDER CONTROL? NO . IS THERE A CHANCE YOU COULD BE ? NO . HEMATOLOGY/LYMPH: DO YOU TAKE ANY BLOOD THINNERS? (FOR EXAMPLE- COUMADIN, PLAVIX, AGGRENOX, PLATEL, PRADAXA, OR XARELTO) NO . WHEN WAS YOUR LAST DOSE? DATE: TIME: . NEUROLOGY: HAVE YOU FALLEN IN THE PAST 6 MONTHS? STARTED TO FALL IN THE SHOWER ABOUT 1 WEEK AGO AND CAUGHT SELF WITH THE RAILINGS BEFORE SHE FELL . ANY NEW EXTREMITY NUMBNESS OR WEAKNESS? NO . CARDIOLOGY: DO YOU HAVE A PACEMAKER OR DEFIBRILLATOR? NO . RESPIRATORY: HAVE YOU BEEN SICK IN THE PAST WEEK? NO . FEVER NO . FLU LIKE SYMPTOMS? NO . COUGH NO . INTEGUMENTARY: DO YOU HAVE ANY RASHES OR OPEN SORES? NO . ALLERGIC/IMMUNO: ARE YOU ALLERGIC TO SHELLFISH OR IV DYE? NO . ANY NEW ALLERGIES? NO . PSYCHIATRIC: DO YOU HAVE THOUGHTS OF HURTING YOURSELF OR SOMEONE ELSE? NO . ARE YOU ABUSED, NEGLECTED, OR IN AN UNSAFE ENVIRONMENT? NO . ENDOCRINOLOGY: ARE YOU DIABETIC? NO . OTHER: DO YOU NEED ANY PRESCRIPTIONS? NO . IF YES, PLEASE LIST: ____ . ANY NEW PROBLEMS WITH YOUR MEDICATIONS? NO . WHEN DID YOU LAST EAT? ____ . WHEN DID YOU LAST DRINK? ____ . WHAT DID YOU LAST DRINK? ____ . NAME OF PERSON DRIVING YOU HOME? ____ . DO YOU HAVE ANY OTHER QUESTIONS OR CONCERNS PAIN IS MUCH MORE DEBILITATING THAN IT HAS BEEN IN PAST . VITAL SIGNS WT 140 LBS, HT 60 IN, BMI 27.34 INDEX, BP 143/76 MM HG, HR 87 /MIN, RR 18 /MIN, TEMP 97.7 F, OXYGEN SAT % 96, NA INITIALS NL. EXAMINATION GENERAL EXAMINATION: LUNGS:LUNG SOUNDS ARE CLEAR. HEART:HEART RATE REGULAR. MUSCULOSKELETAL:*MUSCLE STRENGTH TESTING UPPER AND LOWER EXTREMITIES SHOWING WEAKNESS L>R.CLONUS NOTED BILAT LOWER EXTREMITIES.DTR-4+BILAT LOWER EXTREMITIES.MULTIPLE AREAS OF TENDER SPOTS INDICATIVE OF PMR/FIBROMYALGIA., TRIGGER POINTS:LEFT UPPER BACK. DIAGNOSTIC:MRI C-SPINE [id number]. ASSESSMENTS CHRONIC PRESCRIPTION OPIATE USE - Z79.891 FIBROMYALGIA - M79.7 TREATMENT OTHERS START ZOLOFT TABLET, 50 MG, 1 TABLET, ORALLY, ONCE A DAY, 30 DAY(S), 30, REFILLS 2 START LYRICA CAPSULE, 50 MG, 1 CAPSULE, ORALLY, BID MDD2, 30 DAY(S), 60, REFILLS 2 REFILL NORCO TABLET, 5-325 MG, 1-2, ORALLY, Q4-6H PRN MDD4 #100 FOR 30 DAY SUPPLY, 30 DAY(S), 100, REFILLS 0 NOTES: ISTOP REGISTRY REVIEWED [id number] AND DEMNOSTRATES COMPLLIANCE. BRINGS IN MEDICATIONS WHICH IS APPROPRIATE FOR WHAT WAS DISPENSED. RECENT URINE TOXICOLOGY REVIEWED. NO UNAUTHORIZED MEDICATIONS. NO ILLICIT SUBSTANCES AND PRESCRIBED MEDICATIONS WERE PRESENT RISKS AND BENEFITS OF NARCOTIC/OPIOD MEDICATIONS WERE REVIEWED WITH PATIENT - THIS INCLUDES BUT IS NOT LIMITED TO RISK OF DEPENDANCE/DEVELOPMENT OF ADDICTION, MOOD DISTURBANCE AND DEPRESSION, OSTEOPOROSIS, HORMONAL AND LABIDAL CHANGES, RESPIRATORY DEPRESSION AND . PATIENT IS ADVISED NOT TO DRIVE WHILE ON THESE MEDICATIONS, . PROCEDURE CODES FA211 ESTABILISHED PATIENT [facility] CHARGE DISPOSITION & COMMUNICATION FOLLOW UP 4 WEEKS ELECTRONICALLY SIGNED BY YI PENNY ON 06/12/2017 AT 06:36 PM EDT DISCLAIMER : THIS IS A VISIT SUMMARY EXTRACTED FROM THE [employer] CHART. IT IS NOT A COPY OF THE [employer] PROGRESS NOTE. ED
== END ==
LOC: M PAIN 13:00
PROVIDERS: ATTEND Nurse Practitioner Family
DX: G89.29 Other chronic pain (principal); M79.7 Fibromyalgia; E78.00 Pure hypercholesterolemia, unspecified; K59.00 Constipation, unspecified; M54.2 Cervicalgia; M35.3 Polymyalgia rheumatica; I10 Essential (primary) hypertension; M85.80 Other specified disorders of bone density and structure, unspecified site; R32 Unspecified urinary incontinence; I65.21 Occlusion and stenosis of right carotid artery; Z79.891 Long term (current) use of opiate analgesic; Z79.899 Other long term (current) drug therapy; Z79.82 Long term (current) use of aspirin; Z88.0 Allergy status to penicillin; Z88.1 Allergy status to other antibiotic agents; Z87.891 Personal history of nicotine dependence

== ENCOUNTER 2017-06-02 12:52 | Emergency (ER) | payer OTHER ==
[~2017-06-02] VITALS: Ht 152.4 cm; Wt 66.8 kg
[~2017-06-02 12:52] MED LIST changes: -PREG50CA; -SERT-155; -ZOLP5TAB
[2017-06-02] MEDS ORDERED: SERT-155 (13:09)
[2017-06-02] MEDS ORDERED: PREG50CA (13:09)
[2017-06-02] MEDS ORDERED: ZOLP5TAB (13:09)
[2017-06-02 17:53] LABS: BASO # 0.1 10^3/uL (0.0-0.2); BASO % 0.6 % (0.0-1.0); EOS # 0.2 10^3/uL (0.0-0.50); EOS % 2.5 % (0.0-3.0); IMMATURE GRANULOCYTE % 0.3 % (0-0); LYMPH # 2.8 10^3/uL (1.5-4.5); LYMPH % 35.8 % (24.0-44.0); MEAN CORPUSCULAR HEMOGLOBIN 27.4 pg (27.0-33.0); MEAN CORPUSCULAR HGB CONC 31.2 g/dl (32.0-36.5); MEAN CORPUSCULAR VOLUME 87.9 fl (80.0-96.0); MONO % 12.6 % (0.0-5.0); NEUTROPHILS # 3.8 10^3/uL (1.8-7.7); NEUTROPHILS % 48.2 % (36.0-66.0); PLATELET COUNT, AUTOMATED 271 10^3/uL (150-450); RED CELL DISTRIBUTION WIDTH 18.1 % (11.5-14.5); WHITE BLOOD COUNT 7.9 10^3/uL (4.0-10.0)
[2017-06-02 17:55] LABS: ADD MORPHOLOGY? NO
[2017-06-02 18:07] LABS: ALBUMIN 3.9 GM/DL (3.2-5.2); ALBUMIN/GLOBULIN RATIO 1.11 (1.00-1.93); ALKALINE PHOSPHATASE 86 U/L (45-117); ALT/SGPT 29 U/L (12-78); ANION GAP 7 MEQ/L (8-16); AST/SGOT 18 U/L (15-37); BILIRUBIN,DIRECT < 0.1 MG/DL (0.0-0.2); BILIRUBIN,TOTAL 0.2 MG/DL (0.2-1.0); BLOOD UREA NITROGEN 18 MG/DL (7-18); CARBON DIOXIDE LEVEL 29 MEQ/L (21-32); CHLORIDE LEVEL 106 MEQ/L (98-107); CREATININE FOR GFR 1.13 MG/DL (0.55-1.02); GLOMERULAR FILTRATION RATE 51.6 (>45); GLUCOSE, FASTING 90 MG/DL (80-110); POTASSIUM SERUM 3.7 MEQ/L (3.5-5.1); SODIUM LEVEL 142 MEQ/L (136-145); TOTAL PROTEIN 7.4 GM/DL (6.4-8.2)
[2017-06-02 19:14] VITALS: BP 156/84
--- NOTE | 2017-06-02 19:14 | REP ---
CT BRAIN WITHOUT IV CONTRAST: CT brain is performed without IV contrast. COMPARISON: 03/13/2012. 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 There are mild chronic periventricular small vessel ischemic changes. There is no midline shift or mass effect. There is no acute hemorrhage. There is no extra-axial fluid collection. There are mild vascular calcifications in the carotid siphons. IMPRESSION: No acute hemorrhage. Old left basal ganglia lacunar infarcts and chronic periventricular small vessel ischemic changes. Signed by Aston Lowe MD 06/02/2017 07:17 P
== END 2017-06-02 19:15 | disposition home or self-care (01) ==
LOC: M ED 12:52
DX: R53.83 Other fatigue (principal); T42.75XA Adverse effect of unspecified antiepileptic and sedative-hypnotic drugs, initial encounter; I10 Essential (primary) hypertension; G35 Multiple sclerosis; M79.7 Fibromyalgia; E78.70 Disorder of bile acid and cholesterol metabolism, unspecified; M50.80 Other cervical disc disorders, unspecified cervical region; Z79.899 Other long term (current) drug therapy; Z88.8 Allergy status to other drugs, medicaments and biological substances; Z88.0 Allergy status to penicillin; Z88.1 Allergy status to other antibiotic agents; Z86.73 Personal history of transient ischemic attack (TIA), and cerebral infarction without residual deficits; Z87.891 Personal history of nicotine dependence

== ENCOUNTER → 2017-06-17 | Outpatient (CLI) | payer OTHER ==
[~2017-06-17] MED LIST changes: +PREG50CA; +SERT-155; +ZOLP5TAB
--- NOTE | 2017-07-14 01:42 | ECWPNPC ---
PATIENT NAME: DUY RODRIGUEZ : 1955 GENDER: FEMALE VISIT DATE: 06/17/2017 DISCHARGE DATE: 06/17/17 1356 VISIT LOCKED DATE TIME: PHYSICIAN: ADRIANA ALLISON RESOURCE: ADRIANA ALLISON REASON FOR APPOINTMENT 1. FOLLOWUP- RUNNING 5 MIN. LATE HISTORY OF PRESENT ILLNESS HISTORY OF PRESENT ILLNESS: HERE FOR F/U OF GENERALIZED BACK PAIN AND UPPER BACK PAIN.HAVING SEVERE INCREASE IN PAIN AND PARATHESIAS LATELY.USING HYDROCODONE 5/325 Q6H PRN FOR SEVERE PAIN WITH SOME IMPROVEMENT.RATING PAIN VAS 8/10.DESCRIBES PAIN CONSTANT,BURNING AND ACHING.ACCOMPANIED IN EXAM ROOM WITH .AT HER LAST VISIT WE TRIALED LYRICA.SHE HAD AN ANAPHYLACTIC REACTION.TRIALED ON TRAMADOL AND THIS CAUSED MUSCLE FATIGUE.SHE ADMITS TO NOT BEING ABLE TO GO OUT AND TOLERATE ADL'S DUE TO PAIN BEING OUT OF CONTROL.SHE IS DEPRESSED BUT DENIES ACTIVE SUICIDAL THOUGHTS.DISCUSSED MEDICINE AND TREATMENT OPTIONS. PAIN THE PATIENT DESCRIBES THE PAIN... THE PATIENT DESCRIBES THE PAIN... THE PATIENT DESCRIBES THE PAIN... FALL RISK SCREENING: SCREENING :NO FALLS IN THE PAST YEAR CURRENT MEDICATIONS TAKING ZOLOFT 50 MG TABLET 1 TABLET ORALLY ONCE A DAY TAKING CALCIUM 500 500-250-200 MG-MG-UNIT TABLET 1 TABLET WITH A MEAL ORALLY TWICE DAILY TAKING CO ENZYME Q-10 100 MG ORALLY ONCE A DAY TAKING COZAAR 100 MG TABLET 1 TABLET ORALLY ONCE A DAY TAKING CYMBALTA 60 MG CAPSULE DELAYED RELEASE PARTICLES 1 CAPSULE ORALLY ONCE A DAY AT BEDTIME TAKING DETROL LA 4 MG CAPSULE EXTENDED RELEASE 24 HOUR 1 CAPSULE ORALLY ONCE A DAY TAKING FOLIC ACID 1 MG TABLET 1 TABLET ORALLY ONCE A DAY TAKING NEXIUM 40 MG PACKET 1 CAPSULE ORALLY TWICE DAILY TAKING COLACE 100 MG CAPSULE 1 CAPSULE NEEDED ORALLY TWICE A DAY TAKING AMBIEN 5 MG TABLET 1 TABLET AT BEDTIME NEEDED ORALLY ONCE A DAY TAKING ASPIR-81 81 MG TABLET DELAYED RELEASE 1 TABLET ORALLY ONCE A DAY TAKING METHOTREXATE 2.5 MG TABLET 6 TABS ORALLY DIRECTED, NOTES: WEEKLY ON TUESDAY TAKING CRESTOR 40 MG TABLET 1 TABLET ORALLY ONCE A DAY TAKING FISH OIL 500 MG CAPSULE 1 CAPSULE ORALLY DAILY TAKING CELEBREX 100 MG CAPSULE 1 CAPSULE ORALLY TWICE A DAY TAKING VITAMIN D3 1000 UNIT TABLET 1 TABLET ORALLY ONCE A DAY TAKES 3000 UNITS PER DAY TAKING CYMBALTA 30 MG CAPSULE DELAYED RELEASE PARTICLES ORALLY ONCE A DAY IN AM TAKING NORCO 5-325 MG TABLET 1-2 ORALLY Q4-6H PRN MDD4 #100 FOR 30 DAY SUPPLY TAKING AMLODIPINE 5MG TABLET 1 TAB ORAL ONCE DAILY TAKING ELAVIL 10 MG TABLET 1 TABLET ORALLY ONCE A DAY TAKING COLACE 100 MG CAPSULE 1 CAPSULE NEEDED ORALLY ONCE A DAY TAKING TRAMADOL HCL 50 MG TABLET 1-2 TAB ORALLY Q8H PRN MDD4 TAKING ATENOLOL 100 MG TABLET 1 TABLET ORALLY ONCE A DAY TAKING VICODIN 5-500 MG TABLET 1 CAP ORALLY THREE TIMES DAILY NEEDED TAKING PROLIA 60MG/ML SUBCUTANEOUSLY DIRECTED NOT-TAKING PREDNISONE 10 MG TABLET 1 TABLET ORALLY BID NOT-TAKING SKELAXIN 800 MG TABLET 1 TABLET ORALLY THREE TIMES A DAY NOT-TAKING TOPIRAMATE 100 MG TABLET 1 TABLET ORALLY TWICE A DAY NOT-TAKING VALTREX 1 GM TABLET ORALLY 1TIMES A DAY NOT-TAKING GABAPENTIN 300 MG TABLET ORALLY FOUR TIMES DAILY NOT-TAKING NICODERM CQ 7 MG/24HR PATCH 24 HOUR 1 PATCH TO SKIN TRANSDERMAL ONCE A DAY NOT-TAKING LYRICA 100 MG CAPSULE 1 CAPSULE ORALLY TWICE A DAY MDD2 NOT-TAKING RESTASIS 0.05 % EMULSION 1 INTO AFFECTED EYE OPHTHALMIC TWICE A DAY NOT-TAKING LOSARTAN POTASSIUM 25 MG TABLET 1 TABLET ORALLY ONCE A DAY NOT-TAKING OCUVITE ADULT 50+ 1 1 TAB ORALLY ONCE DAILY NOT-TAKING CYMBALTA 60 MG CAPSULE DELAYED RELEASE PARTICLES 1 CAPSULE ORALLY BEFORE BEDTIME DISCONTINUED TRAMADOL HCL 50 MG TABLET 1 TABLET NEEDED ORALLY EVERY 6 HRS PRN MODERATE PAIN MDD4 DISCONTINUED ZOLOFT 50 MG TABLET 1 TABLET ORALLY ONCE A DAY DISCONTINUED LYRICA 50 MG CAPSULE 1 CAPSULE ORALLY BID MDD2 MEDICATION LIST REVIEWED AND RECONCILED WITH THE PATIENT PAST MEDICAL HISTORY BONE SPURS BOTH HIPS OSTEOPENIA URINARY INCONTINENCE HYPERCHOLESTEROLEMIA PERIODIC CONSTIPATION HTN CERVICALGIA AINCOMPLETE ROTATR-CUFF TEAR/RUPTR OF LEFT SHOULDER, NOT TRAUMA 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 CONSTITUTIONAL: ANY CHANGE IN YOUR MEDICAL CONDITION? YES, MORE GENERALIZED PAIN, MORE PAIN . CHILLS NO . FEVER NO . INFECTION: DO YOU HAVE NEW INFECTIONS? NO . DO YOU HAVE HISTORY OF MRSA? NO . MUSCULOSKELETAL: ANY NEW PATTERNS OF PAIN OR NUMBNESS? NO . GASTROENTEROLOGY: ANY NEW CHANGE IN BOWEL CONTROL? NO . GENITOURINARY: ANY NEW CHANGE IN BLADDER CONTROL? NO . IS THERE A CHANCE YOU COULD BE ? NO . HEMATOLOGY/LYMPH: DO YOU TAKE ANY BLOOD THINNERS? (FOR EXAMPLE- COUMADIN, PLAVIX, AGGRENOX, PLATEL, PRADAXA, OR XARELTO) NO . WHEN WAS YOUR LAST DOSE? DATE: TIME: . NEUROLOGY: HAVE YOU FALLEN IN THE PAST 6 MONTHS? YES, LOST BALANCE IN SHOWER BUT CAUGHT HERSELF . ANY NEW EXTREMITY NUMBNESS OR WEAKNESS? NO . CARDIOLOGY: DO YOU HAVE A PACEMAKER OR DEFIBRILLATOR? NO . RESPIRATORY: HAVE YOU BEEN SICK IN THE PAST WEEK? NO . FEVER NO . FLU LIKE SYMPTOMS? NO . COUGH NO . INTEGUMENTARY: DO YOU HAVE ANY RASHES OR OPEN SORES? NO . ALLERGIC/IMMUNO: ARE YOU ALLERGIC TO SHELLFISH OR IV DYE? NO . ANY NEW ALLERGIES? NO . PSYCHIATRIC: DO YOU HAVE THOUGHTS OF HURTING YOURSELF OR SOMEONE ELSE? NO . ARE YOU ABUSED, NEGLECTED, OR IN AN UNSAFE ENVIRONMENT? NO . ENDOCRINOLOGY: ARE YOU DIABETIC? NO . OTHER: DO YOU NEED ANY PRESCRIPTIONS? NO . IF YES, PLEASE LIST: ____ . ANY NEW PROBLEMS WITH YOUR MEDICATIONS? YES, LYRICA - ALLERGIC (HIGH BP, SOB, SOME TONGUE SWELLING) . WHEN DID YOU LAST EAT? ____ . WHEN DID YOU LAST DRINK? ____ . WHAT DID YOU LAST DRINK? ____ . NAME OF PERSON DRIVING YOU HOME? ____ . DO YOU HAVE ANY OTHER QUESTIONS OR CONCERNS NO . VITAL SIGNS WT 139 LBS, HT 60 IN, BMI 27.14 INDEX, BP 146/69 MM HG, HR 100 /MIN, RR 18 /MIN, TEMP 96.3 F, OXYGEN SAT % 97%, NA INITIALS SC 13:15, REVIEWED BY: NL. EXAMINATION GENERAL EXAMINATION: LUNGS:LUNG SOUNDS ARE CLEAR. HEART:HEART RATE REGULAR. MUSCULOSKELETAL:*MUSCLE STRENGTH TESTING UPPER AND LOWER EXTREMITIES SHOWING WEAKNESS L>R.CLONUS NOTED BILAT LOWER EXTREMITIES.DTR-4+BILAT LOWER EXTREMITIES.MULTIPLE AREAS OF TENDER SPOTS INDICATIVE OF PMR/FIBROMYALGIA., TRIGGER POINTS:LEFT UPPER BACK. DIAGNOSTIC:MRI C-SPINE [id number]. 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 BRINGS IN MEDICATIONS WHICH IS APPROPRIATE FOR WHAT WAS DISPENSED. RECENT URINE TOXICOLOGY REVIEWED. NO UNAUTHORIZED MEDICATIONS. NO ILLICIT SUBSTANCES AND PRESCRIBED MEDICATIONS WERE PRESENT. , RISKS AND BENEFITS OF NARCOTIC/OPIOD MEDICATIONS WERE REVIEWED WITH PATIENT - THIS INCLUDES BUT IS NOT LIMITED TO RISK OF DEPENDANCE/DEVELOPMENT OF ADDICTION, MOOD DISTURBANCE AND DEPRESSION, OSTEOPOROSIS, HORMONAL AND LABIDAL CHANGES, RESPIRATORY DEPRESSION AND . PATIENT IS ADVISED NOT TO DRIVE WHILE ON THESE MEDICATIONS. PROCEDURE CODES FA211 ESTABILISHED PATIENT [facility] CHARGE DISPOSITION & COMMUNICATION FOLLOW UP 6 WEEKS ELECTRONICALLY SIGNED BY YI PENNY ON 07/12/2017 AT 08:42 PM EST DISCLAIMER : THIS IS A VISIT SUMMARY EXTRACTED FROM THE [employer] CHART. IT IS NOT A COPY OF THE [employer] PROGRESS NOTE. MTDD
== END ==
LOC: M PAIN 13:00
PROVIDERS: ATTEND Nurse Practitioner Family
DX: M47.12 Other spondylosis with myelopathy, cervical region (principal); M79.7 Fibromyalgia; Z79.891 Long term (current) use of opiate analgesic; I10 Essential (primary) hypertension; M85.80 Other specified disorders of bone density and structure, unspecified site; F32.9 Major depressive disorder, single episode, unspecified; E78.00 Pure hypercholesterolemia, unspecified; Z79.82 Long term (current) use of aspirin; Z79.899 Other long term (current) drug therapy; Z88.5 Allergy status to narcotic agent; Z88.0 Allergy status to penicillin; Z88.8 Allergy status to other drugs, medicaments and biological substances

== ENCOUNTER → 2017-09-09 | Outpatient (CLI) | payer OTHER | LOC: M PAIN 14:30 | DX: M12.9 Arthropathy, unspecified (principal); M85.80 Other specified disorders of bone density and structure, unspecified site; E78.00 Pure hypercholesterolemia, unspecified; I10 Essential (primary) hypertension; R25.1 Tremor, unspecified; G00-G99 Diseases of the nervous system; G35 Multiple sclerosis; M35.3 Polymyalgia rheumatica; Z79.891 Long term (current) use of opiate analgesic; Z79.82 Long term (current) use of aspirin; Z79.899 Other long term (current) drug therapy; Z86.79 Personal history of other diseases of the circulatory system; Z86.73 Personal history of transient ischemic attack (TIA), and cerebral infarction without residual deficits; Z87.891 Personal history of nicotine dependence | CPT/HCPCS: G0463 ==

== ENCOUNTER → 2017-11-10 | Outpatient (CLI) | payer OTHER ==
[2017-11-10 13:23] LABS: HEMOGLOBIN 11.6 g/dl (12.0-16.0)
== END ==
LOC: M CARPUL 12:21
DX: R91.8 Other nonspecific abnormal finding of lung field (principal); R94.2 Abnormal results of pulmonary function studies

== ENCOUNTER → 2017-11-25 | Outpatient (CLI) | payer OTHER | LOC: M PAIN 13:30 | DX: M12.9 Arthropathy, unspecified (principal); M25.751 Osteophyte, right hip; M25.752 Osteophyte, left hip; M85.80 Other specified disorders of bone density and structure, unspecified site; E78.00 Pure hypercholesterolemia, unspecified; I10 Essential (primary) hypertension; G25.0 Essential tremor; G46.7 Other lacunar syndromes; G35 Multiple sclerosis; M79.7 Fibromyalgia; M35.3 Polymyalgia rheumatica; I65.29 Occlusion and stenosis of unspecified carotid artery; Z79.82 Long term (current) use of aspirin; Z79.891 Long term (current) use of opiate analgesic; Z79.899 Other long term (current) drug therapy; Z88.0 Allergy status to penicillin; Z88.5 Allergy status to narcotic agent; Z88.8 Allergy status to other drugs, medicaments and biological substances; Z86.73 Personal history of transient ischemic attack (TIA), and cerebral infarction without residual deficits; Z87.891 Personal history of nicotine dependence | CPT/HCPCS: G0463 ==

== ENCOUNTER → 2018-03-16 | Outpatient (CLI) | payer MEDICARE, OTHER | LOC: M PAIN 14:30 | DX: M12.9 Arthropathy, unspecified (principal); M25.50 Pain in unspecified joint; G89.29 Other chronic pain; E78.00 Pure hypercholesterolemia, unspecified; I10 Essential (primary) hypertension; G25.0 Essential tremor; G46.7 Other lacunar syndromes; G35 Multiple sclerosis; M85.80 Other specified disorders of bone density and structure, unspecified site; Z79.82 Long term (current) use of aspirin; Z79.891 Long term (current) use of opiate analgesic; Z79.899 Other long term (current) drug therapy; Z88.0 Allergy status to penicillin; Z88.1 Allergy status to other antibiotic agents; Z88.6 Allergy status to analgesic agent; Z88.8 Allergy status to other drugs, medicaments and biological substances; Z86.73 Personal history of transient ischemic attack (TIA), and cerebral infarction without residual deficits; Z87.891 Personal history of nicotine dependence | CPT/HCPCS: G0463 ==

== ENCOUNTER → 2018-05-17 | Outpatient (CLI) | payer MEDICARE, OTHER | LOC: M PAIN 09:15 | DX: Z79.891 Long term (current) use of opiate analgesic (principal); Z79.82 Long term (current) use of aspirin; Z79.899 Other long term (current) drug therapy; Z88.0 Allergy status to penicillin; Z88.8 Allergy status to other drugs, medicaments and biological substances; G89.29 Other chronic pain; E78.00 Pure hypercholesterolemia, unspecified; I10 Essential (primary) hypertension; G35 Multiple sclerosis; M79.7 Fibromyalgia; Z87.891 Personal history of nicotine dependence | CPT/HCPCS: G0463 ==

== ENCOUNTER → 2018-07-17 | Outpatient (CLI) | payer MEDICARE, OTHER | LOC: M PAIN 13:45 | DX: M79.7 Fibromyalgia (principal); E78.00 Pure hypercholesterolemia, unspecified; I10 Essential (primary) hypertension; M85.80 Other specified disorders of bone density and structure, unspecified site; G35 Multiple sclerosis; G25.0 Essential tremor; G46.7 Other lacunar syndromes; Z79.891 Long term (current) use of opiate analgesic; Z79.82 Long term (current) use of aspirin; Z79.899 Other long term (current) drug therapy; Z88.0 Allergy status to penicillin; Z88.5 Allergy status to narcotic agent; Z88.8 Allergy status to other drugs, medicaments and biological substances; Z86.73 Personal history of transient ischemic attack (TIA), and cerebral infarction without residual deficits; Z86.79 Personal history of other diseases of the circulatory system; Z87.891 Personal history of nicotine dependence | CPT/HCPCS: G0463 ==

== ENCOUNTER → 2018-10-31 | Outpatient (CLI) | payer MEDICARE, OTHER ==
[~2018-10-31] MED LIST changes: +METH2.5T48 PO; -METH2.5TA PO
--- NOTE | 2018-11-15 01:29 | ECWPNPC ---
PATIENT NAME: DUY RODRIGUEZ : 1955 GENDER: FEMALE VISIT DATE: 10/31/2018 DISCHARGE DATE: 10/31/18 1522 VISIT LOCKED DATE TIME: PHYSICIAN: ADRIANA ALLISON RESOURCE: ADRIANA ALLISON REASON FOR APPOINTMENT 1. CHRONIC PAIN HISTORY OF PRESENT ILLNESS HISTORY OF PRESENT ILLNESS: HERE FOR F/U OF CHRONIC GENERALIZED PAIN.REPORTS GENERALIZED JOINT PAIN.FOLLOWS WITH RHEUMATOLOGY AND IS DIAGNOSED WITH CONNECTIVE TISSUE DISEASE.RATING PAIN VAS 7/10.FINDING HYDROCODONE 10/325 Q6H PRN SOMEWHAT EFFECTIVE.HAD A DISCUSSION ABOUT MEDICATION WITH BOTH SHE AND HER .GOAL IS FOR HER TO USE LESS AND TO BEGIN DOING MORE REGULAR AEROBIC ACTIVITY.SHE WILL BE REESTABLISHING WITH PSYCHIATRY. PAIN THE PATIENT DESCRIBES THE PAIN... FALL RISK SCREENING: SCREENING : NO FALLS IN THE PAST YEAR. CURRENT MEDICATIONS TAKING CALCIUM 500 500-250-200 MG-MG-UNIT TABLET 1 TABLET WITH A MEAL ORALLY TWICE DAILY TAKING CO ENZYME Q-10 100 MG ORALLY ONCE A DAY TAKING COZAAR 100 MG TABLET 1 TABLET ORALLY ONCE A DAY TAKING DETROL LA 4 MG CAPSULE EXTENDED RELEASE 24 HOUR 1 CAPSULE ORALLY ONCE A DAY TAKING FOLIC ACID 1 MG TABLET 1 TABLET ORALLY ONCE A DAY TAKING NEXIUM 40 MG PACKET 1 CAPSULE ORALLY TWICE DAILY TAKING COLACE 100 MG CAPSULE 1 CAPSULE NEEDED ORALLY TWICE A DAY TAKING AMBIEN 5 MG TABLET 1 TABLET AT BEDTIME NEEDED ORALLY ONCE A DAY TAKING ASPIR-81 81 MG TABLET DELAYED RELEASE 1 TABLET ORALLY ONCE A DAY TAKING METHOTREXATE 2.5 MG TABLET 4ABS ORALLY WEEKLY, NOTES: WEEKLY ON TUESDAY TAKING CRESTOR 20 MG TABLET 1 TABLET ORALLY ONCE A DAY TAKING FISH OIL 500 MG CAPSULE 1 CAPSULE ORALLY DAILY TAKING CELEBREX 100 MG CAPSULE ORALLY TWICE A DAY TAKING VITAMIN D3 1000 UNIT TABLET 1 TABLET ORALLY DAILY TAKING AMLODIPINE 5MG TABLET 1 TAB ORAL ONCE DAILY TAKING ATENOLOL 100 MG TABLET 1 TABLET ORALLY ONCE A DAY TAKING CYMBALTA 60 MG CAPSULE DELAYED RELEASE PARTICLES 1 CAPSULE ORALLY BEFORE BEDTIME TAKING CYMBALTA 30 MG CAPSULE DELAYED RELEASE PARTICLES ORALLY DAILY TAKING NORCO 10-325 MG TABLET 1 ORALLY Q4-6H PRN MDD4 TAKING MELATONIN 1 MG CAPSULE 1 CAPSULE AT BEDTIME NEEDED WITH FOOD ORALLY ONCE A DAY, NOTES: 2 MG NOT-TAKING PREDNISONE 10 MG TABLET 1 TABLET ORALLY BID MEDICATION LIST REVIEWED AND RECONCILED WITH THE PATIENT PAST MEDICAL HISTORY BONE SPURS BOTH HIPS OSTEOPENIA URINARY INCONTINENCE HYPERCHOLESTEROLEMIA PERIODIC CONSTIPATION HTN CERVICALGIA AINCOMPLETE ROTATR-CUFF TEAR/RUPTR OF LEFT SHOULDER, NOT TRAUMA TIA 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 SOCIAL HISTORY GENERAL: TOBACCO USE ARE YOU A:FORMER SMOKER E-CIGARETTEYES LATEX QUESTIONNAIRE LATEX ALLERGY : HAVE YOU EVER DEVELOPED ANY TYPE OF REACTION AFTER HANDLING LATEX PRODUCTS SUCH RUBBER GLOVES, CONDOMS, DIAPHRAGMS, BALLOONS, SOCKS, OR UNDERWEAR?NO LATEX ALLERGY : HAVE YOU EVER DEVELOPED ANY TYPE OF REACTION DURING OR AFTER DENTAL APPOINTMENT, VAGINAL/RECTAL EXAMINATION, SURGICAL PROCEDURE, OR ANY OTHER EXPOSURE?NO LATEX RISK : HAVE YOU EVER HAD ANY DIFFICULTY BREATHING OR HIVES AFTER EATING OR HANDLING ANY FRUITS, OR VEGETABLES; SUCH KIWI, BANANAS, STONE FRUITS, OR CHESTNUTSNO LATEX RISK : DO YOU HAVE A PREVIOUS PERSONAL HISTORY OF MORE THAN NINE SURGERIES, SPINA BIFIDA, OR REPEATED CATHERTIZATIONS? NO LATEX RISK : ARE YOU FREQUENTLY EXPOSED TO LATEX PRODUCTS IN YOUR OCCUPATION?NO DATE ASKED : 10/31/2018 RECREATIONAL DRUG USE DRUG USE?NO LANGUAGE LANGUAGES SPOKEN:SETSWANA LEARNING BARRIERS / SPECIAL NEEDS ORIENTED TO PLAN OF CARE: PATIENT, PAIN MANAGEMENT PATIENT, ORIENTED TO PLAN OF CARE: PATIENT, PAIN MANAGEMENT PATIENT. DIET: REGULAR. MARITAL STATUS: . NEW PATIENT PAIN DIARY TODAY'S VISITNOTES FROM 0-10, WHAT LEVEL IS YOUR PAIN TODAY?0 PAIN CLINIC PFS, CLERGY, PUBLIC HEALTH REFERRALS PFS REFERRAL NEEDED?NO CLERGY REFERRAL NEEDED?NO PUBLIC HEALTH REFERRAL NEEDED?NO WAS THE PROVIDER NOTIFIED OF ANY PERTINENT INFO?NO HAS THE PATIENT BEEN EDUCATED REGARDING HIS/HER PLAN OF CARE?YES HAS THE PATIENT BEEN EDUCATED REGARDING PAIN, THE RISK FOR PAIN, THE IMPORTANCE OF EFFECTIVE PAIN MANAGEMENT, AND THE PAIN ASSESSMENT PROCESS?YES ADVANCE DIRECTIVE ADVANCE DIRECTIVE DISCUSSED WITH PATIENT:YES HCP - JORY () REVIEWED WITH PATIENT 10/31/18 [id number] JS. HOSPITALIZATION/MAJOR DIAGNOSTIC PROCEDURE SURGICALY RELATED REVIEW OF SYSTEMS REVIEWED BY: PROVIDER: ADRIANA RICHMOND . CONSTITUTIONAL: ANY CHANGE IN YOUR MEDICAL CONDITION? YES, POSSIBLE LUPUS . CHILLS NO . FEVER NO . INFECTION: DO YOU HAVE NEW INFECTIONS? NO . DO YOU HAVE HISTORY OF MRSA? NO . MUSCULOSKELETAL: ANY NEW PATTERNS OF PAIN OR NUMBNESS? YES, PAIN MORE CONSTANT . GASTROENTEROLOGY: ANY NEW CHANGE IN BOWEL CONTROL? NO . GENITOURINARY: ANY NEW CHANGE IN BLADDER CONTROL? NO . IS THERE A CHANCE YOU COULD BE ? NO . HEMATOLOGY/LYMPH: DO YOU TAKE ANY BLOOD THINNERS? (FOR EXAMPLE- COUMADIN, PLAVIX, AGGRENOX, PLATEL, PRADAXA, OR XARELTO) NO . WHEN WAS YOUR LAST DOSE? DATE: TIME: . NEUROLOGY: HAVE YOU FALLEN IN THE PAST 12 MONTHS? NO . ANY NEW EXTREMITY NUMBNESS OR WEAKNESS? NO . CARDIOLOGY: DO YOU HAVE A PACEMAKER OR DEFIBRILLATOR? NO . RESPIRATORY: HAVE YOU BEEN SICK IN THE PAST WEEK? NO . FEVER NO . FLU LIKE SYMPTOMS? NO . COUGH NO . INTEGUMENTARY: DO YOU HAVE ANY RASHES OR OPEN SORES? NO . ALLERGIC/IMMUNO: ARE YOU ALLERGIC TO IV DYE? NO . ANY NEW ALLERGIES? NO . PSYCHIATRIC: DO YOU HAVE THOUGHTS OF HURTING YOURSELF OR SOMEONE ELSE? NO . ARE YOU ABUSED, NEGLECTED, OR IN AN UNSAFE ENVIRONMENT? NO . ENDOCRINOLOGY: ARE YOU DIABETIC? NO . OTHER: DO YOU NEED ANY PRESCRIPTIONS? NO . IF YES, PLEASE LIST: ____ . ANY NEW PROBLEMS WITH YOUR MEDICATIONS? NO . WHEN DID YOU LAST EAT? ____ . WHEN DID YOU LAST DRINK? ____ . WHAT DID YOU LAST DRINK? ____ . NAME OF PERSON DRIVING YOU HOME? ____ . DO YOU HAVE ANY OTHER QUESTIONS OR CONCERNS YES, STATES FEELING MORE DEPRESSED THIS WINTER . VITAL SIGNS WT 144.2 LBS, HT 60 IN, BMI 28.16 INDEX, BP 148/74 MM HG, HR 111 /MIN, RR 18 /MIN, TEMP 97.0 F, OXYGEN SAT % 96%, SAFE IN ENV? (Y/N) YES, NA INITIALS AW 1433, REVIEWED BY: ANKUR. EXAMINATION GENERAL EXAMINATION: GENERAL APPEARANCE:AWAKE,ALERT ,PLEAASANT . PSYCHAFFECT NORMAL . LUNGS:LUNG BERRIOS ARE CLEAR TO AUSCULTATION BILATERALLY. GOOD MOVEMENT OF AIR . HEART:S1, S2 IN A REGULAR RATE AND RHYTHM. NO SIGNIFICANT MURMURS, RUBS OR GALLOPS NOTED . ASSESSMENTS FIBROMYALGIA - M79.7 (PRIMARY) TREATMENT FIBROMYALGIA CONTINUE NORCO TABLET, 10-325 MG, 1, ORALLY, Q4-6H PRN MDD4, 30 DAY(S), 120, REFILLS 0 NOTES: CONTINUE HOME EXCERSISE, ISTOP REGISTRY REVIEWED AND DEMONSTRATES COMPLLIANCE. (REF # ) BRINGS IN MEDICATIONS WHICH IS APPROPRIATE FOR WHAT WAS DISPENSED. RECENT URINE TOXICOLOGY REVIEWED. NO UNAUTHORIZED MEDICATIONS. NO ILLICIT SUBSTANCES AND PRESCRIBED MEDICATIONS WERE PRESENT. [id number] TOX TODAY, RISKS AND BENEFITS OF NARCOTIC/OPIOD MEDICATIONS WERE REVIEWED WITH PATIENT - THIS INCLUDES BUT IS NOT LIMITED TO RISK OF DEPENDANCE/DEVELOPMENT OF ADDICTION, MOOD DISTURBANCE AND DEPRESSION, OSTEOPOROSIS, HORMONAL AND LABIDAL CHANGES, RESPIRATORY DEPRESSION AND . PATIENT IS ADVISED NOT TO DRIVE OR DRINK ALCOHOL WHILE ON THESE MEDICATIONS. PROCEDURE CODES [id number] ESTABILISHED PATIENT [facility] CHARGE DISPOSITION & COMMUNICATION FOLLOW UP 3 MONTHS ELECTRONICALLY SIGNED BY YI PEARSON ON 11/14/2018 AT 08:49 AM EDT DISCLAIMER : THIS IS A VISIT SUMMARY EXTRACTED FROM THE [employer] CHART. IT IS NOT A COPY OF THE [employer] PROGRESS NOTE. ED
== END ==
LOC: M PAIN 14:30
PROVIDERS: ATTEND Nurse Practitioner Family
DX: M79.7 Fibromyalgia (principal); M85.80 Other specified disorders of bone density and structure, unspecified site; E78.00 Pure hypercholesterolemia, unspecified; I10 Essential (primary) hypertension; Z86.73 Personal history of transient ischemic attack (TIA), and cerebral infarction without residual deficits; Z86.79 Personal history of other diseases of the circulatory system; Z87.39 Personal history of other diseases of the musculoskeletal system and connective tissue; Z87.891 Personal history of nicotine dependence; Z88.0 Allergy status to penicillin; Z88.1 Allergy status to other antibiotic agents; Z88.5 Allergy status to narcotic agent; Z88.8 Allergy status to other drugs, medicaments and biological substances; Z79.82 Long term (current) use of aspirin; Z79.891 Long term (current) use of opiate analgesic; Z79.899 Other long term (current) drug therapy

== ENCOUNTER → 2019-01-31 | Outpatient (CLI) | payer MEDICARE, OTHER ==
[~2019-01-31] MED LIST changes: -/AMIT10TA PO; -/ESOM40CA PO; -/PRAV20TA PO; -/RISE30TA PO; +AMIT1TAB10 PO; +NEXI1CAP3 PO; +OCUVTA PO; +PRAV1TAB39 PO; +[UNRECOGNIZED DRUG - CODE] PO; -[UNRECOGNIZED DRUG - OTHER] PO
--- NOTE | 2019-02-17 02:07 | ECWPNPC ---
PATIENT NAME: DUY RODRIGUEZ : 1955 GENDER: FEMALE VISIT DATE: 01/31/2019 DISCHARGE DATE: 01/31/19 1519 VISIT LOCKED DATE TIME: PHYSICIAN: ADRIANA ALLISON RESOURCE: ADRIANA ALLISON REASON FOR APPOINTMENT 1. CHRONIC PAIN HISTORY OF PRESENT ILLNESS HISTORY OF PRESENT ILLNESS: HERE FOR F/U OF CHRONIC GENERALIZED PAIN.REPORTS GENERALIZED JOINT PAIN.FOLLOWS WITH RHEUMATOLOGY AND IS DIAGNOSED WITH CONNECTIVE TISSUE DISEASE.RATING PAIN VAS 7/10.FINDING HYDROCODONE 10/325 Q6H PRN SOMEWHAT EFFECTIVE.HAD A DISCUSSION ABOUT MEDICATION WITH BOTH SHE AND HER .GOAL IS FOR HER TO USE LESS AND TO BEGIN DOING MORE REGULAR AEROBIC ACTIVITY.SHE WILL BE REESTABLISHING WITH PSYCHIATRY. PAIN THE PATIENT DESCRIBES THE PAIN... THE PATIENT DESCRIBES THE PAIN... PAIN THE PATIENT DESCRIBES THE PAIN... THE PATIENT DESCRIBES THE PAIN... FALL RISK SCREENING: SCREENING :NO FALLS REPORTED IN THE LAST YEAR CURRENT MEDICATIONS TAKING CALCIUM 500 500-250-200 MG-MG-UNIT TABLET 1 TABLET WITH A MEAL ORALLY TWICE DAILY TAKING CO ENZYME Q-10 100 MG ORALLY ONCE A DAY TAKING COZAAR 100 MG TABLET 1 TABLET ORALLY ONCE A DAY TAKING DETROL LA 4 MG CAPSULE EXTENDED RELEASE 24 HOUR 1 CAPSULE ORALLY ONCE A DAY TAKING FOLIC ACID 1 MG TABLET 1 TABLET ORALLY ONCE A DAY TAKING NEXIUM 40 MG PACKET 1 CAPSULE ORALLY TWICE DAILY TAKING COLACE 100 MG CAPSULE 1 CAPSULE NEEDED ORALLY TWICE A DAY TAKING AMBIEN 5 MG TABLET 1 TABLET AT BEDTIME NEEDED ORALLY ONCE A DAY TAKING ASPIR-81 81 MG TABLET DELAYED RELEASE 1 TABLET ORALLY ONCE A DAY TAKING METHOTREXATE 2.5 MG TABLET 3 TABS ORALLY THREE TIMES WEEKLY TAKING CRESTOR 20 MG TABLET 1 TABLET ORALLY ONCE A DAY TAKING FISH OIL 500 MG CAPSULE 1 CAPSULE ORALLY DAILY TAKING CELEBREX 100 MG CAPSULE ORALLY TWICE A DAY TAKING VITAMIN D3 1000 UNIT TABLET 1 TABLET ORALLY DAILY TAKING AMLODIPINE 5MG TABLET 1 TAB ORAL ONCE DAILY TAKING ATENOLOL 100 MG TABLET 1 TABLET ORALLY ONCE A DAY TAKING CYMBALTA 60 MG CAPSULE DELAYED RELEASE PARTICLES 1 CAPSULE ORALLY BEFORE BEDTIME TAKING CYMBALTA 30 MG CAPSULE DELAYED RELEASE PARTICLES ORALLY DAILY TAKING MELATONIN 1 MG CAPSULE 1 CAPSULE AT BEDTIME NEEDED WITH FOOD ORALLY ONCE A DAY, NOTES: NEEDED TAKING NORCO 10-325 MG TABLET 1 ORALLY Q4-6H PRN MDD4 NOT-TAKING PREDNISONE 10 MG TABLET 1 TABLET ORALLY BID MEDICATION LIST REVIEWED AND RECONCILED WITH THE PATIENT PAST MEDICAL HISTORY BONE SPURS BOTH HIPS OSTEOPENIA URINARY INCONTINENCE HYPERCHOLESTEROLEMIA PERIODIC CONSTIPATION HTN CERVICALGIA AINCOMPLETE ROTATR-CUFF TEAR/RUPTR OF LEFT SHOULDER, NOT TRAUMA TIA 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 MS PMR FIBROMYALGIA 2.7 CM AORIC ANEURYSM ALLERGIES CEPHALOSPORINS: ANAPHYLAXIS - ALLERGY PENICILLINS: ANAPHYLAXIS - ALLERGY LYRICA: SOB, TONGUE SWELLING - ALLERGY TRAMADOL: MUSCLE ACHES - SIDE EFFECTS SURGICAL HISTORY TOTAL HYSTERECTOMY 1998 1982 CHOLECYSTECTOMY 2002 C4-C6 FUSION 2011 RIGHT CORATID ENDOCARDOTEMY 03/12 FAMILY HISTORY FATHER: DIAGNOSED WITH HYPERTENSION SOCIAL HISTORY GENERAL: TOBACCO USE ARE YOU A:FORMER SMOKER E-CIGARETTEYES PAIN CLINIC PFS, CLERGY, PUBLIC HEALTH REFERRALS PFS REFERRAL NEEDED?NO CLERGY REFERRAL NEEDED?NO PUBLIC HEALTH REFERRAL NEEDED?NO WAS THE PROVIDER NOTIFIED OF ANY PERTINENT INFO?NO HAS THE PATIENT BEEN EDUCATED REGARDING HIS/HER PLAN OF CARE?YES HAS THE PATIENT BEEN EDUCATED REGARDING PAIN, THE RISK FOR PAIN, THE IMPORTANCE OF EFFECTIVE PAIN MANAGEMENT, AND THE PAIN ASSESSMENT PROCESS?YES LATEX QUESTIONNAIRE LATEX ALLERGY : HAVE YOU EVER DEVELOPED ANY TYPE OF REACTION AFTER HANDLING LATEX PRODUCTS SUCH RUBBER GLOVES, CONDOMS, DIAPHRAGMS, BALLOONS, SOCKS, OR UNDERWEAR?NO LATEX ALLERGY : HAVE YOU EVER DEVELOPED ANY TYPE OF REACTION DURING OR AFTER DENTAL APPOINTMENT, VAGINAL/RECTAL EXAMINATION, SURGICAL PROCEDURE, OR ANY OTHER EXPOSURE?NO LATEX RISK : HAVE YOU EVER HAD ANY DIFFICULTY BREATHING OR HIVES AFTER EATING OR HANDLING ANY FRUITS, OR VEGETABLES; SUCH KIWI, BANANAS, STONE FRUITS, OR CHESTNUTSNO LATEX RISK : DO YOU HAVE A PREVIOUS PERSONAL HISTORY OF MORE THAN NINE SURGERIES, SPINA BIFIDA, OR REPEATED CATHERTIZATIONS? NO LATEX RISK : ARE YOU FREQUENTLY EXPOSED TO LATEX PRODUCTS IN YOUR OCCUPATION?NO DATE ASKED : 10/31/2018 ADVANCE DIRECTIVE ADVANCE DIRECTIVE DISCUSSED WITH PATIENT:YES HCP - JORY () DIET: REGULAR. EPISCOPAL EPISCOPAL NO ORTHODOXY BELIEFS THAT WOULD IMPACT HEALTH CARE. LANGUAGE LANGUAGES SPOKEN:VIETNAMESE MARITAL STATUS: . NEW PATIENT PAIN DIARY FROM 0-10, WHAT LEVEL IS YOUR PAIN TODAY?8 RECREATIONAL DRUG USE DRUG USE?NO LEARNING BARRIERS / SPECIAL NEEDS BARRIERS TO LEARNING?NO HEARING IMPAIRED?YES : RIGHT EAR VISION IMPAIRED?YES :CORRECTIVE LENSES HAS VISION ISSUES MOSTLY RELATED TO MS COGNITIVELY IMPAIRED?NO READINESS TO LEARN?YES LEARNING PREFERENCES?NO LEARNING CAPABILITIES PRESENT?YES EMOTIONAL BARRIERS?NO SPECIAL DEVICES?YES : USE CANE REVIEWED WITH PATIENT 10/31/18 [id number] JSREVIEWED [facility] PATIENT 01/31/19 1502. HOSPITALIZATION/MAJOR DIAGNOSTIC PROCEDURE SURGICALY RELATED REVIEW OF SYSTEMS REVIEWED BY: PROVIDER: ADRIANA RICHMOND . CONSTITUTIONAL: ANY CHANGE IN YOUR MEDICAL CONDITION? NO . CHILLS NO . FEVER NO . INFECTION: DO YOU HAVE NEW INFECTIONS? NO . DO YOU HAVE HISTORY OF MRSA? NO . MUSCULOSKELETAL: ANY NEW PATTERNS OF PAIN OR NUMBNESS? NO . GASTROENTEROLOGY: ANY NEW CHANGE IN BOWEL CONTROL? NO . GENITOURINARY: ANY NEW CHANGE IN BLADDER CONTROL? NO . IS THERE A CHANCE YOU COULD BE ? NO . HEMATOLOGY/LYMPH: DO YOU TAKE ANY BLOOD THINNERS? (FOR EXAMPLE- COUMADIN, PLAVIX, AGGRENOX, PLATEL, PRADAXA, OR XARELTO) NO . WHEN WAS YOUR LAST DOSE? DATE: TIME: . NEUROLOGY: HAVE YOU FALLEN IN THE PAST 12 MONTHS? NO . ANY NEW EXTREMITY NUMBNESS OR WEAKNESS? NO . CARDIOLOGY: DO YOU HAVE A PACEMAKER OR DEFIBRILLATOR? NO . RESPIRATORY: HAVE YOU BEEN SICK IN THE PAST WEEK? NO . FEVER NO . FLU LIKE SYMPTOMS? NO . COUGH NO . INTEGUMENTARY: DO YOU HAVE ANY RASHES OR OPEN SORES? NO . ALLERGIC/IMMUNO: ARE YOU ALLERGIC TO IV DYE? NO . ANY NEW ALLERGIES? YES, PT HAS NO NEW ALLERGIES . PSYCHIATRIC: DO YOU HAVE THOUGHTS OF HURTING YOURSELF OR SOMEONE ELSE? NO . ARE YOU ABUSED, NEGLECTED, OR IN AN UNSAFE ENVIRONMENT? NO . ENDOCRINOLOGY: ARE YOU DIABETIC? NO . OTHER: DO YOU NEED ANY PRESCRIPTIONS? NO . IF YES, PLEASE LIST: ____ . ANY NEW PROBLEMS WITH YOUR MEDICATIONS? NO . WHEN DID YOU LAST EAT? ____ . WHEN DID YOU LAST DRINK? ____ . WHAT DID YOU LAST DRINK? ____ . NAME OF PERSON DRIVING YOU HOME? ____ . DO YOU HAVE ANY OTHER QUESTIONS OR CONCERNS NO . VITAL SIGNS WT 143.0 LBS, HT 60 IN, BMI 27.92 INDEX, BP 154/67 MM HG, HR 98 /MIN, RR 18 /MIN, TEMP 97.2 F, OXYGEN SAT % 96, NA INITIALS MP 1455, REVIEWED BY: BV. EXAMINATION GENERAL EXAMINATION: GENERAL APPEARANCE:AWAKE,ALERT ,PLEAASANT . PSYCHAFFECT NORMAL . LUNGS:LUNG BERRIOS ARE CLEAR TO AUSCULTATION BILATERALLY. GOOD MOVEMENT OF AIR . HEART:S1, S2 IN A REGULAR RATE AND RHYTHM. NO SIGNIFICANT MURMURS, RUBS OR GALLOPS NOTED . ASSESSMENTS FIBROMYALGIA - M79.7 (PRIMARY) TREATMENT FIBROMYALGIA CONTINUE NORCO TABLET, 10-325 MG, 1, ORALLY, Q4-6H PRN MDD4 CONTINUE COLACE CAPSULE, 100 MG, 1 CAPSULE NEEDED, ORALLY, TWICE A DAY CONTINUE CYMBALTA CAPSULE DELAYED RELEASE PARTICLES, 60 MG, 1 CAPSULE, ORALLY, BEFORE BEDTIME CONTINUE CYMBALTA CAPSULE DELAYED RELEASE PARTICLES, 30 MG, ORALLY, DAILY NOTES: ISTOP REGISTRY REVIEWED AND DEMONSTRATES COMPLLIANCE. BRINGS IN MEDICATIONS WHICH IS APPROPRIATE FOR WHAT WAS DISPENSED. RECENT URINE TOXICOLOGY REVIEWED. NO UNAUTHORIZED MEDICATIONS. NO ILLICIT SUBSTANCES AND PRESCRIBED MEDICATIONS WERE PRESENT. , RISKS AND BENEFITS OF NARCOTIC/OPIOD MEDICATIONS WERE REVIEWED WITH PATIENT - THIS INCLUDES BUT IS NOT LIMITED TO RISK OF DEPENDANCE/DEVELOPMENT OF ADDICTION, MOOD DISTURBANCE AND DEPRESSION, OSTEOPOROSIS, HORMONAL AND LABIDAL CHANGES, RESPIRATORY DEPRESSION AND . PATIENT IS ADVISED NOT TO DRIVE OR DRINK ALCOHOL WHILE ON THESE MEDICATIONS. PROCEDURE CODES FA211 ESTABILISHED PATIENT [facility] CHARGE DISPOSITION & COMMUNICATION FOLLOW UP 3 MONTHS ELECTRONICALLY SIGNED BY YI PEARSON ON 02/15/2019 AT 08:54 AM EDT DISCLAIMER : THIS IS A VISIT SUMMARY EXTRACTED FROM THE [employer] CHART. IT IS NOT A COPY OF THE [employer] PROGRESS NOTE. ED
== END ==
LOC: M PAIN 14:45
PROVIDERS: ATTEND Nurse Practitioner Family
DX: M79.7 Fibromyalgia (principal); M85.88 Other specified disorders of bone density and structure, other site; E78.00 Pure hypercholesterolemia, unspecified; I10 Essential (primary) hypertension; G35 Multiple sclerosis; Z87.891 Personal history of nicotine dependence; Z88.0 Allergy status to penicillin; Z88.1 Allergy status to other antibiotic agents; Z88.5 Allergy status to narcotic agent; Z88.8 Allergy status to other drugs, medicaments and biological substances; Z79.82 Long term (current) use of aspirin; Z79.891 Long term (current) use of opiate analgesic; Z79.899 Other long term (current) drug therapy

== ENCOUNTER → 2019-03-30 | Outpatient (REF) | payer MEDICARE, OTHER | LOC: M SFHCLERA 20:16 | PROVIDERS: ATTEND Physician Assistant | DX: J02.9 Acute pharyngitis, unspecified (principal) ==

== ENCOUNTER → 2019-05-04 | Outpatient (CLI) | payer MEDICARE, OTHER ==
--- NOTE | 2019-05-17 02:01 | ECWPNPC ---
PATIENT NAME: DUY RODRIGUEZ : 1955 GENDER: FEMALE VISIT DATE: 05/04/2019 DISCHARGE DATE: 05/04/19 1503 VISIT LOCKED DATE TIME: PHYSICIAN: ADRIANA ALLISON RESOURCE: ADRIANA ALLISON REASON FOR APPOINTMENT 1. CHRONIC PAIN HISTORY OF PRESENT ILLNESS HISTORY OF PRESENT ILLNESS: HERE FOR F/U OF CHRONIC GENERALIZED PAIN.REPORTS GENERALIZED JOINT PAIN.FOLLOWS WITH RHEUMATOLOGY AND IS DIAGNOSED WITH CONNECTIVE TISSUE DISEASE WITH RECENT DIAGNOSIS OF LUPUS.RATING PAIN VAS 7/10.FINDING HYDROCODONE 10/325 Q6H PRN SOMEWHAT EFFECTIVE.DISCUSSED [facility] AND SHE IS RECEPTIVE.REPORTING LESS USE OF HYDROCODONE SINCE STARTING GABAPENTIN 200MG TID 1 MOS AGO. PAIN THE PATIENT DESCRIBES THE PAIN... THE PATIENT DESCRIBES THE PAIN... THE PATIENT DESCRIBES THE PAIN... FALL RISK SCREENING: SCREENING :NO FALLS REPORTED IN THE LAST YEAR CURRENT MEDICATIONS TAKING CALCIUM 500 500-250-200 MG-MG-UNIT TABLET 1 TABLET WITH A MEAL ORALLY TWICE DAILY TAKING CO ENZYME Q-10 100 MG ORALLY ONCE A DAY TAKING COZAAR 100 MG TABLET 1 TABLET ORALLY ONCE A DAY TAKING DETROL LA 4 MG CAPSULE EXTENDED RELEASE 24 HOUR 1 CAPSULE ORALLY ONCE A DAY TAKING FOLIC ACID 1 MG TABLET 1 TABLET ORALLY ONCE A DAY TAKING NEXIUM 40 MG PACKET 1 CAPSULE ORALLY TWICE DAILY TAKING AMBIEN 5 MG TABLET 1 TABLET AT BEDTIME NEEDED ORALLY ONCE A DAY TAKING ASPIR-81 81 MG TABLET DELAYED RELEASE 1 TABLET ORALLY ONCE A DAY TAKING METHOTREXATE 2.5 MG TABLET 6 TABS ORALLY WEEKLY TAKING CRESTOR 20 MG TABLET 1 TABLET ORALLY ONCE A DAY TAKING CELEBREX 100 MG CAPSULE ORALLY TWICE A DAY TAKING VITAMIN D3 1000 UNIT TABLET 1 TABLET ORALLY DAILY TAKING AMLODIPINE 5MG TABLET 1 TAB ORAL ONCE DAILY TAKING ATENOLOL 100 MG TABLET 1 TABLET ORALLY ONCE A DAY TAKING COLACE 100 MG CAPSULE 1 CAPSULE NEEDED ORALLY TWICE A DAY TAKING CYMBALTA 60 MG CAPSULE DELAYED RELEASE PARTICLES 1 CAPSULE ORALLY BEFORE BEDTIME TAKING CYMBALTA 30 MG CAPSULE DELAYED RELEASE PARTICLES ORALLY DAILY TAKING LIDOCAINE VISCOUS 2 % SOLUTION 10 ML TO AFFECTED AREA NEEDED MOUTH/THROAT EVERY 4 HOURS NEEDED TAKING DIPHENHYDRAMINE HCL 12.5 MG/5ML ELIXIR 10 ML NEEDED ORALLY EVERY 4 HOURS NEEDED TAKING MAALOX 225-200 MG/5ML SUSPENSION 10 ML AFTER MEALS AND AT BEDTIME NEEDED ORALLY EVERY 4 HOURS NEEDED TAKING VALTREX 1 GM TABLET 1 TABLET ORALLY BID PRN TAKING NORCO 10-325 MG TABLET 1 ORALLY Q4-6H PRN MDD4 TAKING KRILL OIL 500 MG CAPSULE DIRECTED ORALLY TAKING GABAPENTIN 100 MG CAPSULE 2 TABS ORALLY TID NOT-TAKING MELATONIN 1 MG CAPSULE 1 CAPSULE AT BEDTIME NEEDED WITH FOOD ORALLY ONCE A DAY, NOTES: NEEDED NOT-TAKING PREDNISONE 10 MG TABLET 1 TABLET ORALLY BID MEDICATION LIST REVIEWED AND RECONCILED WITH THE PATIENT PAST MEDICAL HISTORY BONE SPURS BOTH HIPS OSTEOPENIA URINARY INCONTINENCE HYPERCHOLESTEROLEMIA PERIODIC CONSTIPATION HTN CERVICALGIA AINCOMPLETE ROTATR-CUFF TEAR/RUPTR OF LEFT SHOULDER, NOT TRAUMA TIA 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 MS PMR FIBROMYALGIA 2.7 CM AORIC ANEURYSM LUPUS ALLERGIES CEPHALOSPORINS: ANAPHYLAXIS - ALLERGY PENICILLINS: ANAPHYLAXIS - ALLERGY LYRICA: SOB, TONGUE SWELLING - ALLERGY TRAMADOL: MUSCLE ACHES - SIDE EFFECTS SURGICAL HISTORY TOTAL HYSTERECTOMY 1998 1982 CHOLECYSTECTOMY 2002 C4-C6 FUSION 2011 RIGHT CORATID ENDOCARDOTEMY 03/12 FAMILY HISTORY FATHER: DIAGNOSED WITH HYPERTENSION SOCIAL HISTORY GENERAL: TOBACCO USE ARE YOU A:FORMER SMOKER E-CIGARETTEYES PAIN CLINIC PFS, CLERGY, PUBLIC HEALTH REFERRALS PFS REFERRAL NEEDED?NO CLERGY REFERRAL NEEDED?NO PUBLIC HEALTH REFERRAL NEEDED?NO WAS THE PROVIDER NOTIFIED OF ANY PERTINENT INFO?NO HAS THE PATIENT BEEN EDUCATED REGARDING HIS/HER PLAN OF CARE?YES HAS THE PATIENT BEEN EDUCATED REGARDING PAIN, THE RISK FOR PAIN, THE IMPORTANCE OF EFFECTIVE PAIN MANAGEMENT, AND THE PAIN ASSESSMENT PROCESS?YES LATEX QUESTIONNAIRE LATEX ALLERGY : HAVE YOU EVER DEVELOPED ANY TYPE OF REACTION AFTER HANDLING LATEX PRODUCTS SUCH RUBBER GLOVES, CONDOMS, DIAPHRAGMS, BALLOONS, SOCKS, OR UNDERWEAR?NO LATEX ALLERGY : HAVE YOU EVER DEVELOPED ANY TYPE OF REACTION DURING OR AFTER DENTAL APPOINTMENT, VAGINAL/RECTAL EXAMINATION, SURGICAL PROCEDURE, OR ANY OTHER EXPOSURE?NO DATE ASKED : 10/31/2018 LATEX RISK : HAVE YOU EVER HAD ANY DIFFICULTY BREATHING OR HIVES AFTER EATING OR HANDLING ANY FRUITS, OR VEGETABLES; SUCH KIWI, BANANAS, STONE FRUITS, OR CHESTNUTSNO LATEX RISK : DO YOU HAVE A PREVIOUS PERSONAL HISTORY OF MORE THAN NINE SURGERIES, SPINA BIFIDA, OR REPEATED CATHERIZATIONS? NO LATEX RISK : ARE YOU FREQUENTLY EXPOSED TO LATEX PRODUCTS IN YOUR OCCUPATION?NO ADVANCE DIRECTIVE ADVANCE DIRECTIVE DISCUSSED WITH PATIENT:YES HCP - JORY () DIET: REGULAR. BAPTISM BAPTISM NO RASTAFARIAN BELIEFS THAT WOULD IMPACT HEALTH CARE. LANGUAGE LANGUAGES SPOKEN:BRUNEIAN MARITAL STATUS: . NEW PATIENT PAIN DIARY FROM 0-10, WHAT LEVEL IS YOUR PAIN TODAY?8 RECREATIONAL DRUG USE DRUG USE?NO LEARNING BARRIERS / SPECIAL NEEDS BARRIERS TO LEARNING?NO HEARING IMPAIRED?YES VISION IMPAIRED?YES COGNITIVELY IMPAIRED?NO : RIGHT EAR :CORRECTIVE LENSES HAS VISION ISSUES MOSTLY RELATED TO MS READINESS TO LEARN?YES LEARNING PREFERENCES?NO LEARNING CAPABILITIES PRESENT?YES EMOTIONAL BARRIERS?NO SPECIAL DEVICES?YES : USE CANE REVIEWED WITH PATIENT 10/31/18 1446 JSREVIEWED [facility] PATIENT 01/31/19 1502REVIEWED WITH PATIENT 05/04/19 1426 NLJ. HOSPITALIZATION/MAJOR DIAGNOSTIC PROCEDURE SURGICALY RELATED REVIEW OF SYSTEMS REVIEWED BY: PROVIDER: ADRIANA RICHMOND . CONSTITUTIONAL: ANY CHANGE IN YOUR MEDICAL CONDITION? YES- DIAGNOSED WITH LUPUS . CHILLS NO . FEVER NO . INFECTION: DO YOU HAVE NEW INFECTIONS? NO . DO YOU HAVE HISTORY OF MRSA? NO . MUSCULOSKELETAL: ANY NEW PATTERNS OF PAIN OR NUMBNESS? YES- GENERALIZED JINT AND BONE AIN THAT COMES AND GOES AND IS WORSE SOME DAYS THAN OTHERS . GASTROENTEROLOGY: ANY NEW CHANGE IN BOWEL CONTROL? NO . GENITOURINARY: ANY NEW CHANGE IN BLADDER CONTROL? NO . IS THERE A CHANCE YOU COULD BE ? NO . HEMATOLOGY/LYMPH: DO YOU TAKE ANY BLOOD THINNERS? (FOR EXAMPLE- COUMADIN, PLAVIX, AGGRENOX, PLATEL, PRADAXA, OR XARELTO) NO . WHEN WAS YOUR LAST DOSE? DATE: TIME: . NEUROLOGY: HAVE YOU FALLEN IN THE PAST 12 MONTHS? NO . ANY NEW EXTREMITY NUMBNESS OR WEAKNESS? NO . CARDIOLOGY: DO YOU HAVE A PACEMAKER OR DEFIBRILLATOR? NO . RESPIRATORY: HAVE YOU BEEN SICK IN THE PAST WEEK? NO . FEVER NO . FLU LIKE SYMPTOMS? NO . COUGH NO . INTEGUMENTARY: DO YOU HAVE ANY RASHES OR OPEN SORES? YES- MOUTH- IS TREATED WITH MEDS . ALLERGIC/IMMUNO: ARE YOU ALLERGIC TO IV DYE? NO . ANY NEW ALLERGIES? NO . PSYCHIATRIC: DO YOU HAVE THOUGHTS OF HURTING YOURSELF OR SOMEONE ELSE? NO . ARE YOU ABUSED, NEGLECTED, OR IN AN UNSAFE ENVIRONMENT? NO . ENDOCRINOLOGY: ARE YOU DIABETIC? NO . OTHER: DO YOU NEED ANY PRESCRIPTIONS? NO . IF YES, PLEASE LIST: ____ . ANY NEW PROBLEMS WITH YOUR MEDICATIONS? NO . WHEN DID YOU LAST EAT? ____ . WHEN DID YOU LAST DRINK? ____ . WHAT DID YOU LAST DRINK? ____ . NAME OF PERSON DRIVING YOU HOME? ____ . DO YOU HAVE ANY OTHER QUESTIONS OR CONCERNS YES- STATES SHE HAS CONSTANT PAIN THAT SHE STATES SHE FEELS IS GETTING WORSE . VITAL SIGNS WT 140.2 LBS, HT 60 IN, BMI 27.38 INDEX, BP 148/66 MM HG, HR 96 /MIN, RR 18 /MIN, TEMP 97.5 F, OXYGEN SAT % 96%, SAFE IN ENV? (Y/N) YES, REVIEWED BY: MEAGAN. EXAMINATION GENERAL EXAMINATION: GENERALAWAKE,ALERT ,PLEAASANT . PSYCHAFFECT NORMAL . LUNGS:LUNG BERRIOS ARE CLEAR TO AUSCULTATION BILATERALLY. GOOD MOVEMENT OF AIR . HEART:S1, S2 IN A REGULAR RATE AND RHYTHM. GR 4/6/ PANSYSTOLIC MURMUR. ASSESSMENTS FIBROMYALGIA - M79.7 (PRIMARY) INFLAMMATORY ARTHROPATHY - M19.90 TREATMENT FIBROMYALGIA CONTINUE CYMBALTA CAPSULE DELAYED RELEASE PARTICLES, 60 MG, 1 CAPSULE, ORALLY, BEFORE BEDTIME CONTINUE CYMBALTA CAPSULE DELAYED RELEASE PARTICLES, 30 MG, ORALLY, DAILY CONTINUE NORCO TABLET, 10-325 MG, 1, ORALLY, Q4-6H PRN MDD4 NOTES: ISTOP REGISTRY REVIEWED AND DEMONSTRATES COMPLLIANCE. BRINGS IN MEDICATIONS WHICH IS APPROPRIATE FOR WHAT WAS DISPENSED. RECENT URINE TOXICOLOGY REVIEWED. NO UNAUTHORIZED MEDICATIONS. NO ILLICIT SUBSTANCES AND PRESCRIBED MEDICATIONS WERE PRESENT. , RISKS AND BENEFITS OF NARCOTIC/OPIOD MEDICATIONS WERE REVIEWED WITH PATIENT - THIS INCLUDES BUT IS NOT LIMITED TO RISK OF DEPENDANCE/DEVELOPMENT OF ADDICTION, MOOD DISTURBANCE AND DEPRESSION, OSTEOPOROSIS, HORMONAL AND LABIDAL CHANGES, RESPIRATORY DEPRESSION AND . PATIENT IS ADVISED NOT TO DRIVE OR DRINK ALCOHOL WHILE ON THESE MEDICATIONS. [facility] REASON:CHRONIC PAIN HX OF LUPUS/INFLAMMATORY ARTHROPATHY PROCEDURE CODES FA211 ESTABILISHED PATIENT [facility] FACILITY CHARGE DISPOSITION & COMMUNICATION FOLLOW UP PT WILL CALL (REASON: [facility]ERR[facility]) ELECTRONICALLY SIGNED BY YI PEARSON ON 05/16/2019 AT 01:38 PM EDT DISCLAIMER : THIS IS A VISIT SUMMARY EXTRACTED FROM THE [employer] CHART. IT IS NOT A COPY OF THE [employer] PROGRESS NOTE. ED
== END ==
LOC: M PAIN 14:15
PROVIDERS: ATTEND Nurse Practitioner Family
DX: M79.7 Fibromyalgia (principal); M19.90 Unspecified osteoarthritis, unspecified site; M85.88 Other specified disorders of bone density and structure, other site; E78.00 Pure hypercholesterolemia, unspecified; I10 Essential (primary) hypertension; Z86.73 Personal history of transient ischemic attack (TIA), and cerebral infarction without residual deficits; G25.0 Essential tremor; G35 Multiple sclerosis; Z87.891 Personal history of nicotine dependence; Z88.0 Allergy status to penicillin; Z88.1 Allergy status to other antibiotic agents; Z88.5 Allergy status to narcotic agent; Z88.8 Allergy status to other drugs, medicaments and biological substances; M32.9 Systemic lupus erythematosus, unspecified; Z79.82 Long term (current) use of aspirin; Z79.891 Long term (current) use of opiate analgesic; Z79.899 Other long term (current) drug therapy

== ENCOUNTER 2019-07-30 13:43 | Emergency (ER) | payer MEDICARE, OTHER ==
[~2019-07-30] VITALS: Ht 152.4 cm; Wt 61.4 kg
[~2019-07-30 13:43] MED LIST changes: -SERT-155; +SERT50TA29
[2019-07-30] MEDS ORDERED: VICO10TA11 PO (14:11)
[2019-07-30] MEDS ORDERED: GABA-843 PO (14:11)
[2019-07-30] MEDS ORDERED: ALBUTEROL SULFATE 2.5 MG/0.5 ML INH NEB SOLN NEB ONE (15:00)
[2019-07-30 15:42] LABS: HEMATOCRIT 36.2 % (36.0-47.0); HEMOGLOBIN 11.2 g/dl (12.0-15.5); MEAN CORPUSCULAR HEMOGLOBIN 30.3 pg (27.0-33.0); MEAN CORPUSCULAR HGB CONC 30.9 g/dl (32.0-36.5); MEAN CORPUSCULAR VOLUME 97.8 fl (80.0-96.0); PLATELET COUNT, AUTOMATED 204 10^3/uL (150-450); WHITE BLOOD COUNT 8.1 10^3/uL (4.0-10.0)
--- NOTE | 2019-07-30 15:42 | REP ---
Clinical: Dyspnea. Wheezing. Technique: PA and lateral. Comparison: 03/22/2014. Findings: Mediastinum and cardiac silhouette are normal. Subtle vague coarsened markings suggests bronchitis and should be correlated clinically. No focal consolidation. No effusion. No pneumothorax. Skeletal structures intact. Anterior cervical fusion noted. Impression: Possible bronchitis. No focal consolidation or effusion. Electronically Signed by Ez Hurd MD 07/30/2019 03:33 P
--- NOTE | 2019-07-30 15:44 | REP ---
Three views neck soft tissues: 07/30/2019. Indication: Wheezing. Cough. Comparison: 05/10/2012. Findings: Postoperative sequelae are present status post C4 - C6 ACDF with the surgical hardware intact. Multiple neck soft tissue surgical clips are noted on the right likely related to previous carotid endarterectomy. There is no acute fracture. The prevertebral and additional visualized soft tissues are unremarkable. Impression: No significant neck soft tissue abnormality. Specifically, there is evidence of epiglottitis or prevertebral soft tissue edema/abscess. Electronically Signed by Artie Bautista DO 07/30/2019 03:36 P
[2019-07-30 16:17] LABS: ALBUMIN 3.2 GM/DL (3.2-5.2); ALT/SGPT 22 U/L (12-78); BILIRUBIN,TOTAL 0.3 MG/DL (0.2-1.0); BLOOD UREA NITROGEN 12 MG/DL (7-18); CALCIUM LEVEL 8.7 MG/DL (8.8-10.2); CARBON DIOXIDE LEVEL 25 MEQ/L (21-32); CHLORIDE LEVEL 100 MEQ/L (98-107); CREATININE FOR GFR 0.94 MG/DL (0.55-1.30); GLOMERULAR FILTRATION RATE > 60.0 (>45); GLUCOSE, FASTING 110 MG/DL (70-100); NT-PRO BNP 200 PG/ML (<125); POTASSIUM SERUM 4.2 MEQ/L (3.5-5.1); SODIUM LEVEL 133 MEQ/L (136-145)
--- NOTE | 2019-07-30 17:38 | ECGEPIP ---
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 Order Number: [id number] Reading MD: Shanna Velasquez Measurements Intervals [place] Rate: 74 P: -7 HI: 148 QRS: 38 QRSD: 82 T: 14 QT: 376 QTc: 418 Interpretive Statements SINUS RHYTHM NONSPECIFIC T-WAVE ABNORMALITY No prior Electronically Signed on 07-30-2019 17:37:55 EST by Shanna Velasquez
[2019-07-30] MEDS ORDERED: ISOVUE-370 76% 100ML VIAL (Q9967) As Ordered ONE (17:53)
--- NOTE | 2019-07-30 18:32 | REPVR ---
PROCEDURE INFORMATION: Exam: CT Neck With Contrast Exam date and time: 07/30/2019 6:13 PM Age: 64 years old Clinical history: Dyspnea / difficulty breathing; Additional info: Odynaphagia w/ ur wheeze; R/O narrowing, vocal cord paralysi TECHNIQUE: Imaging protocol: Computed tomography images of the neck with intravenous contrast. Radiation optimization: All CT scans at this facility use at least one of these dose optimization techniques: automated exposure control; mA and/or kV adjustment per patient size (includes targeted exams where dose is matched to clinical indication); or iterative reconstruction. Contrast material: ISOVUE 370; Contrast volume: 100 ml; Contrast route: IV; COMPARISON: CR Soft Tissue Neck 2019-07-30 15:05 FINDINGS: Limitations: Artifact from spinal hardware. Nasopharynx: Unremarkable. Oropharynx: Unremarkable. No significant tonsillar enlargement. Hypopharynx: Unremarkable Larynx: Unremarkable. Normal epiglottis. Retropharyngeal space: Unremarkable. Submandibular/Parotid glands: Normal. Glands are normal in size. Thyroid: Normal. No enlarged or calcified nodules. Lymph nodes: Unremarkable. No lymphadenopathy. Trachea: Visualized trachea is unremarkable. Lungs: Unremarkable as visualized. Vasculature: Coarse atherosclerotic calcifications in the vertebral and internal carotid arteries. Bones/joints: C4-C6 ACDF. Soft tissues: Inclusion cyst in the upper neck measuring 1.5 cm. Right neck clips. IMPRESSION: No acute findings. Electronically signed by: Chau Cristobal On 07/30/2019 18:32:25 PM
--- NOTE | 2019-07-30 18:42 | REPVR ---
PROCEDURE INFORMATION: Exam: CT Angiography Chest With Contrast Exam date and time: 07/30/2019 6:13 PM Age: 64 years old Clinical history: Dyspnea; Additional info: Acute dyspnea 64yo F; R/O pe TECHNIQUE: Imaging protocol: Computed tomographic angiography of the chest with intravenous contrast. 3D rendering: MIP reconstructed images were created and reviewed. Radiation optimization: All CT scans at this facility use at least one of these dose optimization techniques: automated exposure control; mA and/or kV adjustment per patient size (includes targeted exams where dose is matched to clinical indication); or iterative reconstruction. Contrast material: ISOVUE 370; Contrast volume: 100 ml; Contrast route: IV; COMPARISON: CR Chest, 2 view PA, Lat 2019-07-30 15:05 FINDINGS: Limitations: Motion artifact does moderately limit the sensitivity of this examination. Pulmonary arteries: No filling defects in the pulmonary arteries to suggest pulmonary emboli. Aorta: Unremarkable. No aortic aneurysm. No aortic dissection. Other arteries: Mild/moderate renal artery origin stenosis. Moderate celiac artery origin stenosis. Lungs: Mild hazy nonspecific pulmonary groundglass opacities and interlobular septal thickening, question mild edema. Pleural space: Unremarkable. No pneumothorax. No pleural effusion. Heart: Unremarkable. No cardiomegaly. No pericardial effusion. Gallbladder and bile ducts: Cholecystectomy clips in the right upper quadrant. Lymph nodes: Unremarkable. No enlarged lymph nodes. Bones/joints: Lower cervical spinal fusion. Soft tissues: Unremarkable. IMPRESSION: 1. No filling defects in the pulmonary arteries to suggest pulmonary emboli. 2. Mild hazy nonspecific pulmonary groundglass opacities and interlobular septal thickening, question mild edema. Electronically signed by: Chau Cristobal On 07/30/2019 18:41:37 PM
[2019-07-30] MEDS ORDERED: BENZ200C70 PO (19:19)
[2019-07-30 19:37] VITALS: BP 150/70
== END 2019-07-30 19:38 | disposition home or self-care (01) ==
LOC: M ED 13:43
DX: J20.8 Acute bronchitis due to other specified organisms (principal); I10 Essential (primary) hypertension; E78.5 Hyperlipidemia, unspecified; M79.7 Fibromyalgia; M32.9 Systemic lupus erythematosus, unspecified; G25.0 Essential tremor; M34.9 Systemic sclerosis, unspecified; I71.4 Abdominal aortic aneurysm, without rupture; Z87.891 Personal history of nicotine dependence; Z88.0 Allergy status to penicillin; Z88.1 Allergy status to other antibiotic agents; Z79.899 Other long term (current) drug therapy
CPT/HCPCS: 70360; 70491; 71046; 71275; 80053; 83880; 85027; 87486; 87581; 87633; 87798; 93005; 94640; 99284; Q9967

== ENCOUNTER 2019-10-27 09:02 | Inpatient (IN) | payer MEDICARE, OTHER ==
[~2019-10-27] VITALS: Ht 152.4 cm; Wt 59.6 kg
[~2019-10-27 09:02] MED LIST changes: +ASPIRIN 81 MG ENTERIC TAB PO SCH; +BENZ200C70 PO; +GABA-843 PO; +VICO10TA11 PO
[2019-10-27] MEDS ORDERED: NS 1,000 ML IV ONE ×2 (09:15→17:00)
[2019-10-27 09:34] LABS: BASO # 0.1 10^3/uL (0.0-0.2); BASO % 0.2 % (0.0-1.0); HEMATOCRIT 43.7 % (36.0-47.0); HEMOGLOBIN 14.5 g/dl (12.0-15.5); LYMPH # 1.2 10^3/uL (1.5-5.0); LYMPH % 4.8 % (24.0-44.0); MEAN CORPUSCULAR HEMOGLOBIN 29.4 pg (27.0-33.0); MEAN CORPUSCULAR HGB CONC 33.2 g/dl (32.0-36.5); MEAN CORPUSCULAR VOLUME 88.6 fl (80.0-96.0); MONO # 0.7 10^3/uL (0.0-0.8); MONO % 2.8 % (0.0-5.0); NEUTROPHILS # 22.9 10^3/uL (1.5-8.5); NEUTROPHILS % 91.8 % (36.0-66.0); PLATELET COUNT, AUTOMATED 294 10^3/uL (150-450); RED BLOOD COUNT 4.93 10^6/uL (4.00-5.40)
[2019-10-27 09:59] LABS: ALBUMIN 3.4 GM/DL (3.2-5.2); BILIRUBIN,DIRECT 0.2 MG/DL (0.0-0.2); BILIRUBIN,TOTAL 0.7 MG/DL (0.2-1.0); TOTAL PROTEIN 7.2 GM/DL (6.4-8.2)
[2019-10-27] MEDS ORDERED: TOLT4CAP3 PO (10:28)
[2019-10-27] MEDS ORDERED: ZOLP10TA2 PO (10:28)
[2019-10-27] MEDS ORDERED: CO Q100C10 PO (10:28)
[2019-10-27] MEDS ORDERED: FOLI1TAB11 PO (10:28)
[2019-10-27] MEDS ORDERED: ROSU10TA6 PO (10:28)
--- NOTE | 2019-10-27 10:29 | REP ---
CHEST, TWO VIEWS: Two views of the chest are performed and compared with prior study, 07/30/2019. There is a band of atelectasis or infiltrate in the right middle lobe. Mild chronic interstitial opacities are seen in the lung bases bilaterally. There is stable elevation of the right hemidiaphragm. Heart is not enlarged. There is mild calcification of the thoracic aorta. Mediastinal silhouette is unchanged. Metallic plate is seen in the lower cervical spine. There are mild degenerative changes of the spine. IMPRESSION: Band of atelectasis or mild infiltrate right middle lobe. Electronically Signed by Aston Lowe MD 10/27/2019 06:37 P
[2019-10-27] MEDS ORDERED: HYDR-4517 PO (10:57)
[2019-10-27] MEDS ORDERED: VALT1TAB PO (10:57)
[2019-10-27] MEDS ORDERED: MULTCAP PO (10:57)
[2019-10-27] MEDS ORDERED: OYST500T11 PO (10:57)
[2019-10-27] MEDS ORDERED: DULO1CAP5 PO (10:57)
[2019-10-27] MEDS ORDERED: DOCU100C16 PO (10:57)
[2019-10-27] MEDS ORDERED: CELE100C PO (10:57)
[2019-10-27] MEDS ORDERED: CARV3.12 PO (10:57)
[2019-10-27] MEDS ORDERED: ASPI81TA85 PO (10:57)
[2019-10-27] MEDS ORDERED: DULO30CA9 PO (10:57)
[2019-10-27] MEDS ORDERED: NORV5TAB PO (10:57)
[2019-10-27] MEDS ORDERED: PRED5TA PO (11:01)
--- NOTE | 2019-10-27 11:24 | REP ---
CT BRAIN WITHOUT CONTRAST: CT brain performed without IV contrast. Coronal reconstruction images are performed. Comparison made with prior study, 06/02/2017. Once again, there is mild to moderate atrophy. There is no midline shift or mass effect. Patchy periventricular chronic small vessel ischemic changes are again noted as well as an old left basal ganglia lacunar infarct. Findings are unchanged. There is no acute intracranial hemorrhage or extra-axial fluid collection. There are vascular calcifications in the carotid siphons. IMPRESSION: Stable, chronic changes, as discussed in detail above. No acute intracranial hemorrhage, midline shift, or mass effect. Electronically Signed by Aston Lowe MD 10/27/2019 06:42 P
[2019-10-27] MEDS ORDERED: AMLO25TA PO (11:45)
[2019-10-27 11:50] LABS: CREATININE FOR GFR 1.58 MG/DL (0.55-1.30); GLOMERULAR FILTRATION RATE 34.8 (>45); MAGNESIUM LEVEL 4.8 MG/DL (1.8-2.4); POTASSIUM SERUM 5.9 MEQ/L (3.5-5.1)
[2019-10-27] MEDS ORDERED: LevoFLOXacin IV 750 MG in IV 1 EA IV ONE (12:00)
[2019-10-27 12:11] LABS: CALCIUM LEVEL 8.6 MG/DL (8.8-10.2); CREATININE FOR GFR 1.74 MG/DL (0.55-1.30); GLOMERULAR FILTRATION RATE 31.2 (>45); POTASSIUM SERUM 5.4 MEQ/L (3.5-5.1)
[2019-10-27] MEDS ORDERED: NS 880 ML in IV 1 EA IV ONE (12:15)
--- NOTE | 2019-10-27 13:11 | REP ---
CT ABDOMEN/PELVIS WITHOUT CONTRAST: CT abdomen/pelvis performed. No IV contrast was administered. Sagittal and coronal reconstruction images are performed. There is patchy infiltrate or atelectasis in the right middle lobe. Liver demonstrates no gross abnormality. The patient has had a prior cholecystectomy. The spleen is normal in size. Adrenal glands are normal. Pancreas demonstrates no gross abnormality. Kidneys demonstrate no stone. There is no hydroureteronephrosis. There is mild aneurysmal dilation of the distal abdominal aorta up to 3.1 cm with mild to moderate atherosclerotic calcification. There is no adenopathy. There is no free air or free fluid. There appears to be mild thickening of a segment of sigmoid colon suggesting sigmoid colitis. I see no pelvic mass. The patient appears to have had a hysterectomy. Urinary bladder is moderately distended and is otherwise grossly unremarkable. There are degenerative changes of the spine. IMPRESSION: Right middle lobe infiltrate/atelectasis. Status post cholecystectomy. Mild aneurysmal dilatation of the distal abdominal aorta 3.1 cm. There appears to be mild thickening of the wall of the sigmoid colon, suggesting sigmoid colitis. Electronically Signed by Aston Lowe MD 10/27/2019 06:47 P
[2019-10-27] MEDS ORDERED: ACETAMINOPHEN TAB 650MG DOSE (2X325MG) PO PRN (13:15)
[2019-10-27] MEDS ORDERED: MORPHINE 2 MG/ML 1ML VIAL (J2270) IV PRN (13:30)
[2019-10-27] MEDS ORDERED: ONDANSETRON 4MG/2ML VIAL (J2405) IV PRN (13:30)
[2019-10-27] MEDS: NS 1,000 ML IV SCH (14:00)
[2019-10-27 14:18] LABS: C REACTIVE PROTEIN QUANTITATIV 11.8 MG/DL (0.00-0.30)
[2019-10-27 14:22] VITALS: BP 132/71
[2019-10-27] MEDS: metroNIDAZOLE 500 MG in IV 1 EA IV SCH ×2 (16:12→20:40)
[2019-10-27] MEDS: valACYclovir HCL 500 MG TAB PO SCH (16:12)
[2019-10-27] MEDS: FOLIC ACID 1 MG TAB PO SCH (16:14)
[2019-10-27] MEDS: TOLTERODINE TARTRATE 2 MG LA CAP (DETROL LA) PO SCH (16:14)
[2019-10-27] MEDS: GABAPENTIN 300 MG CAP PO SCH ×2 (16:14→20:38)
[2019-10-27] MEDS: PERCOCET 5MG/325MG TAB PO PRN ×2 (16:15→22:20)
[2019-10-27] MEDS: LOPERAMIDE 2 MG CAPLET PO PRN ×3 (17:17→22:19)
--- NOTE | 2019-10-27 17:51 | ECGEPIP ---
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
[2019-10-27] MEDS: ROSUVASTATIN 10 MG TAB (CRESTOR) PO SCH (20:38)
[2019-10-27] MEDS: PANTOPRAZOLE 40MG TAB (PROTONIX) PO SCH (20:38)
[2019-10-27] MEDS: HEPARIN SOD (PORCINE) 5000 UNITS/ML VIAL (J1644 PER 1000UNITS) SC SCH (20:39)
[2019-10-27] MEDS: ASPIRIN 81 MG ENTERIC TAB PO SCH (20:39)
[2019-10-27] MEDS ORDERED: DULoxetine 30 MG CAP (CYMBALTA) PO SCH (21:00)
[2019-10-27 22:00] VITALS: BP 126/69
[2019-10-27] MEDS ORDERED: zolPIDEM TARTRATE 5 MG TAB PO PRN (22:00)
[2019-10-28] MEDS: NS 1,000 ML IV SCH ×2 (02:12→09:51)
[2019-10-28 06:00] VITALS: BP 125/73
[2019-10-28 06:34] LABS: HEMATOCRIT 32.6 % (36.0-47.0); MEAN CORPUSCULAR HEMOGLOBIN 29.2 pg (27.0-33.0); MEAN CORPUSCULAR HGB CONC 31.9 g/dl (32.0-36.5); MEAN CORPUSCULAR VOLUME 91.6 fl (80.0-96.0); RED BLOOD COUNT 3.56 10^6/uL (4.00-5.40); WHITE BLOOD COUNT 9.6 10^3/uL (4.0-10.0)
[2019-10-28 06:44] LABS: HEMOGLOBIN 10.4 g/dl (12.0-15.5); PLATELET COUNT, AUTOMATED 178 10^3/uL (150-450)
[2019-10-28 06:53] LABS: ALBUMIN 2.7 GM/DL (3.2-5.2); BILIRUBIN,TOTAL 0.3 MG/DL (0.2-1.0); CALCIUM LEVEL 7.2 MG/DL (8.8-10.2); CREATININE FOR GFR 1.01 MG/DL (0.55-1.30); GLOMERULAR FILTRATION RATE 58.4 (>45); POTASSIUM SERUM 4.1 MEQ/L (3.5-5.1); TOTAL PROTEIN 5.8 GM/DL (6.4-8.2)
[2019-10-28] MEDS: HEPARIN SOD (PORCINE) 5000 UNITS/ML VIAL (J1644 PER 1000UNITS) SC SCH ×2 (09:40→20:08)
[2019-10-28] MEDS: metroNIDAZOLE 500 MG in IV 1 EA IV SCH (09:41)
[2019-10-28] MEDS: GABAPENTIN 300 MG CAP PO SCH ×3 (09:42→20:08)
[2019-10-28] MEDS: TOLTERODINE TARTRATE 2 MG LA CAP (DETROL LA) PO SCH (09:42)
[2019-10-28] MEDS: FOLIC ACID 1 MG TAB PO SCH (09:42)
[2019-10-28] MEDS: valACYclovir HCL 500 MG TAB PO SCH (09:42)
[2019-10-28] MEDS: PANTOPRAZOLE 40MG TAB (PROTONIX) PO SCH ×2 (09:42→20:08)
[2019-10-28] MEDS: PERCOCET 5MG/325MG TAB PO PRN ×3 (09:42→21:56)
[2019-10-28 10:00] VITALS: BP 121/73
--- NOTE | 2019-10-28 11:08 | HPE ---
DATE OF ADMISSION: 10/27/2019 TIME: 1:00 p.m. CHIEF COMPLAINT: Generalized weakness with associated nausea, vomiting and diarrhea. HISTORY OF PRESENT ILLNESS: Mrs. Newberry is a 64-year-old woman who has an extensive medical history that includes recently diagnosis scleroderma as well as lupus. She has a history of previously stroke secondary to carotid artery disease in addition to being immunocompromised by methotrexate therapy. The patient also has a history of aortic stenosis with associated pulmonary hypertension. The patient was in her usual state up until 1-2 days ago when she noticed that she was constipated. She had taken about five tablets of senna on a particular day and subsequently developed nausea, vomiting and diarrhea yesterday with associated subjective fevers. She reports having about five loose and runny nonbloody stools, over the course of the past 24 hours with associated generalized weakness. Her thought that she was becoming more confused while at home and brought her into the emergency room. She was found to have white count of 25,000. She was afebrile on admission with a temperature of 97.7. She was noted to be acutely dehydrated with a potassium of 5.9, BUN of 32, and a creatinine of 1.58. Her creatinine usually runs in the normal range. The patient met sepsis criteria. When orthostatics were checked she was found to have orthostatic hypotension. She was treated with intravenous fluids per sepsis protocol. A chest x-ray showed a right middle lobe linear infiltrate. She was prescribed IV Levaquin and because she was complaining of abdominal pain a CT of the abdomen and pelvis without contrast was obtained. This was essentially unremarkable with the exception showed some possible sigmoid colon thickening suggestive of sigmoid colitis. The patient has had diarrhea while in the emergency room, and she appears otherwise acutely ill. Due to her findings of sepsis with possible pneumonia versus colitis, she was admitted to the hospitalist service for further treatment and evaluation. She denies having any recent travel. She has not been on any antibiotics lately. A GI panel was obtained in the emergency room which was normal. The patient reports having an upper respiratory tract infection about a month ago. ALLERGIES: Her allergies are to PENICILLIN and CEPHALOSPORINS which cause anaphylaxis. HOME MEDICATIONS: Are the following: - Norvasc 7.5 mg daily - baby aspirin daily - calcium carbonate with vitamin D3 one tablet daily - Coreg 3.125 mg twice a day - Celebrex 100 mg twice a day - Colace 100 mg twice a day - duloxetine 60 mg at bedtime, 30 mg during the day - Nexium 40 mg twice a day - folic acid 1 mg by mouth daily - gabapentin 300 mg by mouth three times a day - [place] one tablet every 6 hours as needed for pain - methotrexate 5 mg on Tuesday, Tuesday, and Tuesday - multivitamin one capsule daily - prednisone 5 mg daily as needed for arthritis - rosuvastatin 10 mg at bedtime - Detrol XL 4 mg daily - coenzyme Q10 100 mg twice a day - Valtrex 1 gram by mouth daily - Ambien 10 mg at bedtime PAST MEDICAL HISTORY: Her past medical history includes: Right hemidiaphragm elevation. Gastroesophageal reflux disease (GERD). Immunocompromised state secondary to methotrexate therapy. Hyperlipidemia. Overactive bladder. Depression. Carotid artery stenosis status post carotid endarterectomy. She has history of a cerebrovascular accident (CVA). She has history of essential tremors. She has a history of endometriosis. She has a history of scleroderma. She has a history of lupus. Fibromyalgia. Aortic valve stenosis with chronic heart murmur. She has a history of pulmonary hypertension. She has a history of aortic abdominal aneurysm measuring 3.1 cm. PAST SURGICAL HISTORY: Notable for: Right carotid endarterectomy. She has a history of cervical fusion. She has a history of cholecystectomy. section. Hysterectomy. 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 She currently uses E-cigarettes. She quit tobacco 5 years ago. She is presently retired. Does not use any alcohol or illicit drugs. She lives at home with her who is her surrogate medical decision maker. She is a FULL CODE. FAMILY HISTORY: Notable for a brother with mesothelioma. Mom in her mid 60s from pancreatic cancer and her father is living, in his 90s presently, who has history of renal carcinoma. REVIEW OF SYSTEMS: 12 systems reviewed with the patient, otherwise negative with the exception that she is having subjective fevers and confusion, generalized weakness, constipation alternating with diarrhea, although she did take stool softeners. She had an upper respiratory tract infection a month ago and she has not been on any antibiotics or had any recent travel to any areas with endemic COVID-19 infections. PHYSICAL EXAMINATION: On examination, the patient's temperature is 97.3, pulse is 84, respirations 20, bp 133/64, oxygen saturation is 93% on 2 liters. General: The patient is alert and oriented times three. She is a middle aged woman who appears to be acutely ill. Her skin is warm to touch without any visible pallor, rash or jaundice. Head is atraumatic, normocephalic. She has eyeglasses in place. Her pupils are symmetric and reactive to light. Without any scleral icterus. The oropharynx is clear. Oral mucosa is dry Her neck is supple. No palpable lymphadenopathy or thyromegaly. Lung sounds are appreciated bilaterally without rales, wheezing or rhonchi heard. She has some symmetric chest wall rise. She has no audible strider. Heart S1, S2. She has a grade 3/6 systolic murmur consistent with her history of aortic stenosis. No rubs or gallops are appreciated. Abdomen is soft, mildly tender to palpation with no visible distention or ascites, nor midline pulsatile masses. No peritoneal signs are appreciated. Extremities are without any cyanosis, clubbing or edema. Neuro exam: Her speech is fluent. She has no facial asymmetry. She is moving all four extremities in a purposeful and coordinated manner. RELEVANT LABS: White count is 25,000 with a left shift of 91%, hemoglobin 14.5, hematocrit 43, platelet count is 294. Sodium 130, potassium 5.9, chloride 100, bicarb 22, BUN 32, creatinine 1.55, magnesium 4.8, lipase 31. GI panel was negative. CT scan of the head was unremarkable. CT of the abdomen and pelvis without contrast showed some questionable sigmoid colon thickening suggestive of mild sigmoid colitis. Chest x-ray showed a right middle lobe linear atelectasis versus infiltrate. Blood cultures have been drawn and are pending. IMPRESSION: 1. Sepsis, possibly secondary to acute colitis versus community acquired pneumonia. The patient will be admitted to an inpatient status. She warrants a minimum of two midnight hospital stay given her acute presentation. Blood cultures times two have been obtained. The patient will be placed on IV Levaquin given her antibiotics allergy profile in addition to Flagyl. Blood cultures have been requested. We will also request a urine with culture if indicated. Await the results of cultures. Patient will be aggressively hydrated with IV fluids. 2. Possible right middle lobe pneumonia versus infiltrate. The patient will be placed on empiric antibiotics consisting of IV Levaquin, although I do not feel that the pneumonia is playing a significant part. 3. Acute kidney injury with hyperkalemia and acute dehydration. The patient will be acutely hydrated. Will avoid nephrotoxins. Her Levaquin will be doses every 48 hours for now given her renal dysfunction. She will have repeat labs in the morning. I will check a urinalysis at this time. 4. Hypertension. Given her acute dehydration, we are going to hold her Norvasc and Coreg and will resume these as soon as we can. 5. Depression. The patient will be continued on her duloxetine. 6. History of scleroderma. We are going to hold her methotrexate given her acute illness. Will continue her Protonix 40 mg twice a day. I will hold her Norvasc for now. The patient will be a FULL CODE and will be placed on heparin subcu for deep vein thrombosis (DVT) prophylaxis.
--- NOTE | 2019-10-28 11:41 | IPNPDOC ---
Subjective Date Seen The patient was seen on 10/28/19. Subjective Chief Complaint/HPI Mable is improved today, no diarrhea since early this morning. Afebrile, no longer having abd pain/cramping. She's scheduled to have EGD/colonoscopy in 2 weeks. Objective Physical Examination General Exam: Positive: Alert, Cooperative, No Acute Distress ENT Exam: Negative: Mucous membr. moist/pink Neck Exam: Positive: Supple Chest Exam: Positive: Clear to auscultation Heart Exam: Positive: Rate Normal Abdomen Exam: Positive: Normal bowel sounds, Soft; Negative: Tenderness Extremity Exam: Negative: Edema Skin Exam: Negative: Rash Neuro Exam: Positive: Normal Speech Psych Exam: Positive: Mental status NL, Mood NL; Negative: Anxiety Assessment /Plan Assessment # Sepsis likely due to acute sigmoid colitis -resolved # Colitis may be attributed to methotrexate toxicity vs infectious vs. lower GI tract manifestation of scleroderma # MIQUEL/Dehydration/Hyperkalemia - resolved # Chronic immunosuppression (methotrexate) # HTN # Hx of scleroderma/lupus Plan: - change to oral abx - transfer to floor - saline lock - home in am - egd + c-scope as outpatient Plan/VTE VTE Prophylaxis Ordered?: Yes VTE Exclusion Mechanical Proph: N/A:VTE Prophy Ordered VTE Exclusion Pharmacological: N/A:VTE Prophy Ordered VS, I&O, 24H, Fishbone Vital Signs/I&O Vital Signs Date Time Temp Pulse Resp B/P (MAP) Pulse Ox O2 Delivery O2 Flow Rate FiO2 10/28/19 10:15 18 10/28/19 10:00 97.4 97 121/73 (89) 99 Room Air 10/27/19 12:58 2.0 I&O- Last 24 Hours up to 6 AM 10/28/19 06:00 Intake Total 4950 ml Output Total 15 ml Balance 4935 ml Laboratory Data 24H LABS Laboratory Tests 2 10/27/19 14:31: Urine Color AMIRAH, Urine Appearance CLEAR, Urine pH 5.0, Urine Specific [place] 1.012, Urine Protein NEGATIVE, Urine Glucose (UA) NEGATIVE, Urine Ketones NEGATIVE, Urine Blood 1+H, Urine Nitrite NEGATIVE, Urine Bilirubin NEGATIVE, Urine Urobilinogen 0.2, Urine Leukocyte Esterase NEGATIVE, Urine WBC (Auto) 2, Urine RBC (Auto) 3, Urine Hyaline Casts (Auto) 7, Urine Bacteria (Auto) 1+H, Urine Squamous Epithelial Cells 1, Urine Sperm (Auto) 10/27/19 15:22: Lactic Acid Followup at 4 Hours 3.2*H 10/28/19 06:06: Nucleated Red Blood Cells % (auto) 0.0, Anion Gap 3L, Glomerular Filtration Rate 58.4, Calcium Level 7.2L, Total Bilirubin 0.3#, Aspartate Amino Transf (AST/SGOT) 24, Alanine Aminotransferase (ALT/SGPT) 19, Alkaline Phosphatase 51, Total Protein 5.8L, Albumin 2.7#L, Albumin/Globulin Ratio 0.87L 10/28/19 08:00: Lactic Acid Level 0.8 CBC/BMP Laboratory Tests 10/28/19 06:06 Microbiology Microbiology 10/27/19 Blood Culture, Received Pending 10/27/19 Gastrointestinal Tract Panel (PCR) - Final, Complete BRICE SOUSA MD Oct 28, 2019 11:41
[2019-10-28 14:00] VITALS: BP 96/50
[2019-10-28] MEDS: metroNIDAZOLE (FLAGYL) 500 MG TAB PO SCH ×2 (15:44→23:23)
[2019-10-28 15:52] VITALS: BP 100/68
[2019-10-28 18:00] VITALS: BP 119/71
[2019-10-28] MEDS: CIPROFLOXACIN 500 MG TAB PO SCH (18:06)
[2019-10-28] MEDS: ROSUVASTATIN 10 MG TAB (CRESTOR) PO SCH (20:08)
[2019-10-28] MEDS: ASPIRIN 81 MG ENTERIC TAB PO SCH (20:08)
[2019-10-28 22:00] VITALS: BP 152/69
[2019-10-29 02:00] VITALS: BP 113/66
[2019-10-29 06:00] VITALS: BP 135/82
[2019-10-29 06:01] LABS: MEAN CORPUSCULAR HEMOGLOBIN 29.4 pg (27.0-33.0); MEAN CORPUSCULAR HGB CONC 32.3 g/dl (32.0-36.5); MEAN CORPUSCULAR VOLUME 91.2 fl (80.0-96.0); PLATELET COUNT, AUTOMATED 173 10^3/uL (150-450); WHITE BLOOD COUNT 5.5 10^3/uL (4.0-10.0)
[2019-10-29] MEDS: CIPROFLOXACIN 500 MG TAB PO SCH (06:01)
[2019-10-29] MEDS: FOLIC ACID 1 MG TAB PO SCH (08:59)
[2019-10-29] MEDS: GABAPENTIN 300 MG CAP PO SCH (08:59)
[2019-10-29] MEDS: TOLTERODINE TARTRATE 2 MG LA CAP (DETROL LA) PO SCH (08:59)
[2019-10-29] MEDS: valACYclovir HCL 500 MG TAB PO SCH (08:59)
[2019-10-29] MEDS: PANTOPRAZOLE 40MG TAB (PROTONIX) PO SCH (08:59)
[2019-10-29] MEDS: metroNIDAZOLE (FLAGYL) 500 MG TAB PO SCH (08:59)
[2019-10-29] MEDS: HEPARIN SOD (PORCINE) 5000 UNITS/ML VIAL (J1644 PER 1000UNITS) SC SCH (09:00)
[2019-10-29] MEDS ORDERED: LevoFLOXacin IV 750 MG in IV 1 EA IV SCH (09:00)
[2019-10-29] MEDS ORDERED: FLAG500T PO (09:09)
[2019-10-29] MEDS ORDERED: LEVA750T7 PO (09:09)
--- NOTE | 2019-10-29 09:15 | IPNPDOC ---
Subjective Date Seen The patient was seen on 10/29/19. Subjective Chief Complaint/HPI Only having some abd cramping, no diarrhea Objective Physical Examination General Exam: Positive: Alert, Cooperative, No Acute Distress ENT Exam: Negative: Mucous membr. moist/pink Neck Exam: Positive: Supple Chest Exam: Positive: Clear to auscultation Heart Exam: Positive: Rate Normal Abdomen Exam: Positive: Normal bowel sounds, Soft, Tenderness (mild) Extremity Exam: Negative: Edema Skin Exam: Negative: Rash Neuro Exam: Positive: Normal Speech Psych Exam: Positive: Mental status NL, Mood NL; Negative: Anxiety Assessment /Plan Assessment # Sepsis likely due to acute sigmoid colitis -resolved # Colitis may be attributed to methotrexate toxicity vs infectious vs. lower GI tract manifestation of scleroderma # MIQUEL/Dehydration/Hyperkalemia - resolved # Chronic immunosuppression (methotrexate) # HTN # Hx of scleroderma/lupus Plan: - Home today - F/u with PCP in 1 week - flagyl + levaquin x 5 days - outpt egd + c-scope in 2 weeks, previously scheduled Plan/VTE VTE Prophylaxis Ordered?: Yes VTE Exclusion Mechanical Proph: N/A:VTE Prophy Ordered VTE Exclusion Pharmacological: N/A:VTE Prophy Ordered VS, I&O, 24H, Fishbone Vital Signs/I&O Vital Signs Date Time Temp Pulse Resp B/P (MAP) Pulse Ox O2 Delivery O2 Flow Rate FiO2 10/29/19 06:00 98.7 86 16 135/82 (99) 95 Room Air 10/27/19 12:58 2.0 I&O- Last 24 Hours up to 6 AM 10/29/19 06:00 Intake Total 4140 ml Output Total 450 ml Balance 3690 ml Laboratory Data 24H LABS Laboratory Tests 2 10/29/19 05:32: Nucleated Red Blood Cells % (auto) 0.0 CBC/BMP Laboratory Tests 10/29/19 05:32 Microbiology Microbiology 10/27/19 Blood Culture - Preliminary, Resulted No growth after 24 hours . All specim... 10/27/19 Gastrointestinal Tract Panel (PCR) - Final, Complete BRICE SOUSA MD Oct 29, 2019 09:15
--- NOTE | 2019-10-31 15:17 | DSES ---
DATE OF ADMISSION: 10/27/2019 DATE OF DISCHARGE: 10/29/2019 DISCHARGE DIAGNOSES: 1. Sepsis, likely due to acute sigmoid colitis. 2. Colitis, possibly attributed to methotrexate toxicity versus infectious source versus lower gastrointestinal (GI) tract manifestation of scleroderma. 3. Acute kidney injury. 4. Dehydration. 5. Hyperkalemia. 6. Chronic immunosuppression with methotrexate. 7. Hypertension. 8. History of scleroderma and lupus. 9. Possible right middle lobe pneumonia versus atelectasis. PROCEDURES PERFORMED DURING THIS HOSPITALIZATION: None. CONSULTANTS ON CASE: None. DISPOSITION: The patient was discharged home in stable condition. LABS THAT ARE PENDING AT THE TIME OF DISCHARGE: None. DISCHARGE INSTRUCTIONS: The patient was instructed to take antibiotics as prescribed and followup with her primary care physician in one week. CONDITION ON DISCHARGE: Improved from admission. RELEVANT LABS: Blood cultures drawn during this hospitalization are without any growth of organism. GI panel was negative for any organism identified. White count on admission was 25,000, it discharge has trended down to 5,000. Hemoglobin is 10, hematocrit is 31, platelet count 173,000. Procalcitonin was 26, sodium was 142, potassium 4.1, chloride 114, bicarb 25, BUN 17, creatinine 1, glucose 96. RELEVANT IMAGING STUDIES: CT scan of the head without contrast was unremarkable. Chest x-ray was unremarkable. CT of the abdomen and pelvis showed a right middle lobe infiltrative atelectasis and then mild thickening of the wall of the sigmoid colon suggesting sigmoid colitis. DISCHARGE MEDICATIONS: - levofloxacin 750 mg by mouth daily for five days - Flagyl 500 mg every 8 hours for five days The remainder of her home medications are continued without any changes. HOSPITAL COURSE: Mrs. Newberry is a 64-year-old woman who presented to the hospital with headache, abdominal pain and diarrhea. She did not complain of any shortness of breath (SOB) or productive cough. In the ER, because she was complaining of a headache, she underwent a CT scan of her head which was negative for any acute intracranial event. Abdomen and pelvis CT without contrast was obtained due to acute kidney injury on presentation to the ED. This showed that she had some evidence of sigmoid colitis as well as a right middle lobe infiltrate. She was treated with antibiotics and admitted to the hospitalist service for further treatment. The patient was placed on IV Cipro and Flagyl with significant improvement in her white blood cell count, which was 26,000 upon admission. She was also noted to have an elevated procalcitonin. With 48 hours of intravenous antibiotics the patient's leukocytosis normalized. Her symptoms of diarrhea and abdominal cramping also improved significantly. A GI panel was tested and this was found to be negative. This morning, the patient is doing quite well and is appropriate for discharge home. She will be placed on oral antibiotics to complete a weeks course and she was advised to follow with her primary care physician upon discharge. A total of 30 minutes was spent, including all discharge paperwork.
== END 2019-10-29 10:30 | disposition home or self-care (01) | DRG 872 ==
LOC: M ED 09:02 → EDBD 09:02 → M ED INP 13:05 → ENRESERV 13:40 → M MSPAV 14:20
PROVIDERS: ADMIT Internal Medicine; ATTEND Internal Medicine
DX: A41.9 Sepsis, unspecified organism (principal); N17.9 Acute kidney failure, unspecified; K52.1 Toxic gastroenteritis and colitis; K21.9 Gastro-esophageal reflux disease without esophagitis; E78.5 Hyperlipidemia, unspecified; N32.81 Overactive bladder; F32.9 Major depressive disorder, single episode, unspecified; G25.0 Essential tremor; Z86.73 Personal history of transient ischemic attack (TIA), and cerebral infarction without residual deficits; Z88.0 Allergy status to penicillin; Z88.1 Allergy status to other antibiotic agents; Z79.891 Long term (current) use of opiate analgesic; Z79.899 Other long term (current) drug therapy; Z79.82 Long term (current) use of aspirin; M79.7 Fibromyalgia; I71.4 Abdominal aortic aneurysm, without rupture; M32.9 Systemic lupus erythematosus, unspecified; M34.9 Systemic sclerosis, unspecified; I35.0 Nonrheumatic aortic (valve) stenosis; F17.290 Nicotine dependence, other tobacco product, uncomplicated; E87.5 Hyperkalemia; T45.1X5A Adverse effect of antineoplastic and immunosuppressive drugs, initial encounter

== ENCOUNTER → 2019-11-27 | Outpatient (CLI) | payer MEDICARE, OTHER ==
[~2019-11-27] MED LIST changes: +AMLO25TA PO; +ASPI81TA85 PO; -ASPIRIN 81 MG ENTERIC TAB PO SCH; +CARV3.12 PO; +CELE100C PO; +DOCU100C16 PO; +DULO1CAP5 PO; +DULO30CA9 PO; +FLAG500T PO; +FOLI1TAB11 PO; +HYDR-4517 PO; +LEVA750T7 PO; +MULTCAP PO; +NORV5TAB PO; +OYST500T11 PO; +PRED5TA PO; +ROSU10TA6 PO; +TOLT4CAP3 PO; +VALT1TAB PO; +ZOLP10TA2 PO
== END ==
LOC: M LABSMTC 13:29
PROVIDERS: ATTEND Family Medicine
DX: Z11.59 Encounter for screening for other viral diseases (principal); Z20.828 Contact with and (suspected) exposure to other viral communicable diseases

== ENCOUNTER → 2019-11-29 | Outpatient (REF) | payer MEDICARE, OTHER ==
[2019-11-29 18:07] LABS: BASO # 0.1 10^3/uL (0.0-0.2); BASO % 0.9 % (0.0-1.0); EOS # 1.2 10^3/uL (0.0-0.5); EOS % 11.1 % (0.0-3.0); HEMATOCRIT 41.1 % (36.0-47.0); HEMOGLOBIN 13.6 g/dl (12.0-15.5); LYMPH # 2.2 10^3/uL (1.5-5.0); LYMPH % 19.8 % (24.0-44.0); MEAN CORPUSCULAR HEMOGLOBIN 31.3 pg (27.0-33.0); MEAN CORPUSCULAR HGB CONC 33.1 g/dl (32.0-36.5); MEAN CORPUSCULAR VOLUME 94.7 fl (80.0-96.0); MONO # 0.8 10^3/uL (0.0-0.8); MONO % 7.3 % (0.0-5.0); NEUTROPHILS # 6.6 10^3/uL (1.5-8.5); NEUTROPHILS % 60.4 % (36.0-66.0); PLATELET COUNT, AUTOMATED 216 10^3/uL (150-450); RED BLOOD COUNT 4.34 10^6/uL (4.00-5.40)
[2019-11-29 18:32] LABS: ALBUMIN 3.8 GM/DL (3.2-5.2); ALT/SGPT 23 U/L (12-78); BILIRUBIN,DIRECT 0.1 MG/DL (0.0-0.2); BILIRUBIN,TOTAL 0.2 MG/DL (0.2-1.0); BLOOD UREA NITROGEN 9 MG/DL (7-18); CALCIUM LEVEL 9.2 MG/DL (8.8-10.2); CARBON DIOXIDE LEVEL 29 MEQ/L (21-32); CHLORIDE LEVEL 106 MEQ/L (98-107); GLOMERULAR FILTRATION RATE > 60.0 (>45); GLUCOSE, FASTING 94 MG/DL (70-100); POTASSIUM SERUM 4.3 MEQ/L (3.5-5.1); SODIUM LEVEL 139 MEQ/L (136-145); TOTAL PROTEIN 7.4 GM/DL (6.4-8.2)
== END ==
LOC: M LABDRAW1 15:30
PROVIDERS: ATTEND Physician Assistant
DX: R19.7 Diarrhea, unspecified (principal)

== ENCOUNTER → 2019-12-06 | Outpatient (CLI) | payer MEDICARE, OTHER ==
[~2019-12-06] MED LIST changes: +ISOVUE-370 76% 100ML VIAL (Q9967) As Ordered ONE
--- NOTE | 2019-12-06 19:49 | REP ---
CT chest with IV contrast: History: Pulmonary nodule. Comparison chest CT study July 30, 2019. Comparison chest x-ray November 29, 2019. Most recent chest x-ray was read as showing a tiny nodular density in the right lower lobe. CT contrast dose: 75 mL of intravenous Isovue 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 The lung narayan are well inflated. No infiltrate is seen. No pulmonary mass lesion is observed. No observable pulmonary nodule is seen. No pleural or pericardial effusion is noted. There are scattered normal-sized mediastinal and right hilar lymph nodes which are felt to be unchanged from the comparison CT study. No adenopathy. No bony destructive lesion is appreciated. No adrenal mass is seen. The visualized upper abdominal structures are unremarkable. Impression: No active cardiopulmonary disease. No nodule is appreciated. Electronically Signed by Mike Cruz MD 12/06/2019 08:49 P
== END ==
LOC: M RAD 16:04
PROVIDERS: ATTEND Physician Assistant
DX: R91.1 Solitary pulmonary nodule (principal)
CPT/HCPCS: 71260; Q9967

== ENCOUNTER → 2020-02-11 | Outpatient (REF) | payer MEDICARE, OTHER ==
[~2020-02-11] MED LIST changes: -ISOVUE-370 76% 100ML VIAL (Q9967) As Ordered ONE
== END ==
LOC: M LAB REF 09:48
PROVIDERS: ATTEND Physician Assistant
DX: Z20.828 Contact with and (suspected) exposure to other viral communicable diseases (principal); Z11.59 Encounter for screening for other viral diseases

== ENCOUNTER 2020-04-09 16:00 | Inpatient (IN) | payer MEDICARE, OTHER ==
[~2020-04-09 16:00] MED LIST changes: -ASPI81TA85 PO; +ASPI81TA86 PO; +IPRATROPIUM 0.5MG/ALBUTEROL 2.5MG INH SOL UD 3ML (DUONEB) ONE
[2020-04-09] MEDS ORDERED: ACETAMINOPHEN 325 MG TAB As Ordered ONE (18:20)
[2020-04-09] MEDS ORDERED: DOCUSATE SODIUM 100 MG CAP As Ordered ONE (20:22)
[2020-04-09] MEDS ORDERED: guaiFENesin 200 MG TAB As Ordered ONE (20:22)
[2020-04-09] MEDS ORDERED: GABAPENTIN 300 MG CAP As Ordered ONE (20:22)
[2020-04-09] MEDS ORDERED: APIXABAN 5 MG TAB (ELIQUIS) As Ordered ONE (20:23)
[2020-04-09] MEDS ORDERED: PANTOPRAZOLE 40MG TAB (PROTONIX) As Ordered ONE (20:23)
[2020-04-09] MEDS ORDERED: DULoxetine 30 MG CAP (CYMBALTA) As Ordered ONE (20:23)
[2020-04-09] MEDS ORDERED: LACTOBACILLUS ACIDOPHILUS CAP (BACID) As Ordered ONE (20:23)
[2020-04-09] MEDS ORDERED: AMIODARONE 200 MG TAB (PACERONE) As Ordered ONE (20:24)
[2020-04-09] MEDS ORDERED: CIPROFLOXACIN 500MG TABLET As Ordered ONE (20:24)
[2020-04-09] MEDS ORDERED: ROSUVASTATIN 10 MG TAB (CRESTOR) As Ordered ONE (20:24)
[2020-04-09] MEDS ORDERED: LORATADINE 10 MG TAB As Ordered ONE (20:24)
[2020-04-09] MEDS ORDERED: SODIUM CHLORIDE NASAL 0.65% SPRAY BTL (OCEAN) ONE (21:00)
[2020-04-09] MEDS ORDERED: metroNIDAZOLE (FLAGYL) 500MG TABLET ONE (21:00)
[2020-04-09] MEDS ORDERED: FLUTICASONE PROP 0.05% NASAL SPRAY 16 GM (FLONASE) ONE (21:00)
[2020-04-10] MEDS ORDERED: guaiFENesin 200 MG TAB As Ordered ONE ×3 (08:10→20:41)
[2020-04-10] MEDS ORDERED: FOLIC ACID 1 MG TAB As Ordered ONE (08:10)
[2020-04-10] MEDS ORDERED: amLODIPine 5 MG TAB As Ordered ONE (08:11)
[2020-04-10] MEDS ORDERED: DOCUSATE SODIUM 100 MG CAP As Ordered ONE ×2 (08:11→16:05)
[2020-04-10] MEDS ORDERED: GABAPENTIN 300 MG CAP As Ordered ONE ×3 (08:11→20:42)
[2020-04-10] MEDS ORDERED: LACTOBACILLUS ACIDOPHILUS CAP (BACID) As Ordered ONE ×3 (08:12→20:42)
[2020-04-10] MEDS ORDERED: PANTOPRAZOLE 40MG TAB (PROTONIX) As Ordered ONE ×2 (08:12→20:53)
[2020-04-10] MEDS ORDERED: MAGNESIUM OXIDE 400 MG TAB (MAG-OX) As Ordered ONE (08:12)
[2020-04-10] MEDS ORDERED: VITAMIN D 1,000 INTERNATIONAL UNITS TABLET As Ordered ONE (08:13)
[2020-04-10] MEDS ORDERED: APIXABAN 5 MG TAB (ELIQUIS) As Ordered ONE ×2 (08:13→20:42)
[2020-04-10] MEDS ORDERED: DULoxetine 30 MG CAP (CYMBALTA) As Ordered ONE ×2 (08:14→20:43)
[2020-04-10] MEDS ORDERED: atenoloL 25 MG TAB As Ordered ONE (08:14)
[2020-04-10] MEDS ORDERED: CIPROFLOXACIN 500MG TABLET As Ordered ONE ×2 (08:15→20:43)
[2020-04-10] MEDS ORDERED: AMIODARONE 200 MG TAB (PACERONE) As Ordered ONE ×3 (08:15→20:43)
[2020-04-10] MEDS ORDERED: ACETAMINOPHEN TAB 650MG DOSE (2X325MG) As Ordered ONE (08:43)
[2020-04-10] MEDS ORDERED: IPRATROPIUM 0.5MG/ALBUTEROL 2.5MG INH SOL UD 3ML (DUONEB) ONE (10:00)
[2020-04-10] MEDS ORDERED: oxyCODONE 5MG TAB As Ordered ONE ×3 (10:23→23:05)
[2020-04-10] MEDS ORDERED: LORATADINE 10 MG TAB As Ordered ONE (20:43)
[2020-04-10] MEDS ORDERED: ROSUVASTATIN 10 MG TAB (CRESTOR) As Ordered ONE (20:43)
[2020-04-11] MEDS ORDERED: oxyCODONE 5MG TAB As Ordered ONE ×2 (05:01→09:06)
[2020-04-11] MEDS ORDERED: amLODIPine 5 MG TAB As Ordered ONE (09:05)
[2020-04-11] MEDS ORDERED: FOLIC ACID 1 MG TAB As Ordered ONE (09:05)
[2020-04-11] MEDS ORDERED: guaiFENesin 200 MG TAB As Ordered ONE ×3 (09:05→20:48)
[2020-04-11] MEDS ORDERED: DOCUSATE SODIUM 100 MG CAP As Ordered ONE ×2 (09:05→20:48)
[2020-04-11] MEDS ORDERED: GABAPENTIN 300 MG CAP As Ordered ONE ×3 (09:05→20:48)
[2020-04-11] MEDS ORDERED: MAGNESIUM OXIDE 400 MG TAB (MAG-OX) As Ordered ONE (09:06)
[2020-04-11] MEDS ORDERED: LACTOBACILLUS ACIDOPHILUS CAP (BACID) As Ordered ONE ×3 (09:06→20:48)
[2020-04-11] MEDS ORDERED: PANTOPRAZOLE 40MG TAB (PROTONIX) As Ordered ONE ×2 (09:06→20:48)
[2020-04-11] MEDS ORDERED: DULoxetine 30 MG CAP (CYMBALTA) As Ordered ONE ×2 (09:07→20:49)
[2020-04-11] MEDS ORDERED: VITAMIN D 1,000 INTERNATIONAL UNITS TABLET As Ordered ONE (09:07)
[2020-04-11] MEDS ORDERED: atenoloL 25 MG TAB As Ordered ONE (09:07)
[2020-04-11] MEDS ORDERED: APIXABAN 5 MG TAB (ELIQUIS) As Ordered ONE ×2 (09:07→20:49)
[2020-04-11] MEDS ORDERED: AMIODARONE 200 MG TAB (PACERONE) As Ordered ONE ×4 (09:08→21:13)
[2020-04-11] MEDS ORDERED: CIPROFLOXACIN 500MG TABLET As Ordered ONE ×2 (09:08→20:49)
[2020-04-11] MEDS ORDERED: IPRATROPIUM 0.5MG/ALBUTEROL 2.5MG INH SOL UD 3ML (DUONEB) ONE (10:00)
[2020-04-11] MEDS ORDERED: ROSUVASTATIN 10 MG TAB (CRESTOR) As Ordered ONE (20:49)
[2020-04-11] MEDS ORDERED: LORATADINE 10 MG TAB As Ordered ONE (20:49)
[2020-04-11] MEDS ORDERED: OLANZapine 2.5MG TABLET ONE (21:00)
[2020-04-11] MEDS ORDERED: NORCO, ANEXSIA 5/325MG TABLET (HYDROcodone/ACETAMINOPHEN) As Ordered ONE (21:04)
[2020-04-12] MEDS ORDERED: ACETAMINOPHEN TAB 650MG DOSE (2X325MG) As Ordered ONE ×2 (05:01→19:23)
[2020-04-12] MEDS ORDERED: GABAPENTIN 300 MG CAP As Ordered ONE ×3 (09:14→20:14)
[2020-04-12] MEDS ORDERED: FOLIC ACID 1 MG TAB As Ordered ONE (09:14)
[2020-04-12] MEDS ORDERED: guaiFENesin 200 MG TAB As Ordered ONE ×3 (09:14→20:14)
[2020-04-12] MEDS ORDERED: DOCUSATE SODIUM 100 MG CAP As Ordered ONE (09:14)
[2020-04-12] MEDS ORDERED: VITAMIN D 1,000 INTERNATIONAL UNITS TABLET As Ordered ONE (09:15)
[2020-04-12] MEDS ORDERED: MAGNESIUM OXIDE 400 MG TAB (MAG-OX) As Ordered ONE (09:15)
[2020-04-12] MEDS ORDERED: LACTOBACILLUS ACIDOPHILUS CAP (BACID) As Ordered ONE ×3 (09:15→20:14)
[2020-04-12] MEDS ORDERED: PANTOPRAZOLE 40MG TAB (PROTONIX) As Ordered ONE ×2 (09:15→20:15)
[2020-04-12] MEDS ORDERED: DULoxetine 30 MG CAP (CYMBALTA) As Ordered ONE ×2 (09:20→20:15)
[2020-04-12] MEDS ORDERED: atenoloL 25 MG TAB As Ordered ONE (09:20)
[2020-04-12] MEDS ORDERED: APIXABAN 5 MG TAB (ELIQUIS) As Ordered ONE ×2 (09:20→20:15)
[2020-04-12] MEDS ORDERED: CIPROFLOXACIN 500MG TABLET As Ordered ONE (09:21)
[2020-04-12] MEDS ORDERED: AMIODARONE 200 MG TAB (PACERONE) As Ordered ONE ×3 (09:21→20:16)
[2020-04-12] MEDS ORDERED: IPRATROPIUM 0.5MG/ALBUTEROL 2.5MG INH SOL UD 3ML (DUONEB) ONE (10:00)
[2020-04-12] MEDS ORDERED: NORCO, ANEXSIA 5/325MG TABLET (HYDROcodone/ACETAMINOPHEN) As Ordered ONE ×3 (12:01→20:16)
[2020-04-12] MEDS ORDERED: LevoFLOXacin 750MG/150ML IV BAG (J1956 PER 250MG) ONE (20:00)
[2020-04-12] MEDS ORDERED: LORATADINE 10 MG TAB As Ordered ONE (20:15)
[2020-04-12] MEDS ORDERED: VANCOMYCIN 1000MG/20ML VIAL As Ordered ONE ×2 (20:15→23:02)
[2020-04-12] MEDS ORDERED: ROSUVASTATIN 10 MG TAB (CRESTOR) As Ordered ONE (20:16)
[2020-04-13] MEDS ORDERED: ACETAMINOPHEN TAB 650MG DOSE (2X325MG) As Ordered ONE (04:12)
[2020-04-13] MEDS ORDERED: MAGNESIUM OXIDE 400 MG TAB (MAG-OX) As Ordered ONE (06:24)
[2020-04-13] MEDS ORDERED: FOLIC ACID 1 MG TAB As Ordered ONE (06:24)
[2020-04-13] MEDS ORDERED: LACTOBACILLUS ACIDOPHILUS CAP (BACID) As Ordered ONE ×3 (06:24→21:44)
[2020-04-13] MEDS ORDERED: GABAPENTIN 300 MG CAP As Ordered ONE ×3 (06:24→21:44)
[2020-04-13] MEDS ORDERED: VITAMIN D 1,000 INTERNATIONAL UNITS TABLET As Ordered ONE (06:25)
[2020-04-13] MEDS ORDERED: PANTOPRAZOLE 40MG TAB (PROTONIX) As Ordered ONE ×2 (06:25→21:44)
[2020-04-13] MEDS ORDERED: DULoxetine 30 MG CAP (CYMBALTA) As Ordered ONE ×2 (06:25→21:45)
[2020-04-13] MEDS ORDERED: APIXABAN 5 MG TAB (ELIQUIS) As Ordered ONE ×2 (06:25→21:45)
[2020-04-13] MEDS ORDERED: NORCO, ANEXSIA 5/325MG TABLET (HYDROcodone/ACETAMINOPHEN) As Ordered ONE ×3 (06:26→22:10)
[2020-04-13] MEDS ORDERED: AMIODARONE 200 MG TAB (PACERONE) As Ordered ONE ×3 (06:26→21:46)
[2020-04-13] MEDS ORDERED: MAGNESIUM SULFATE 1GM/100ML D5W BAG (10MG/ML) As Ordered ONE (16:08)
[2020-04-13] MEDS ORDERED: DOCUSATE SODIUM 100 MG CAP As Ordered ONE (16:08)
[2020-04-13] MEDS ORDERED: guaiFENesin 200 MG TAB As Ordered ONE (21:44)
[2020-04-13] MEDS ORDERED: ROSUVASTATIN 10 MG TAB (CRESTOR) As Ordered ONE (21:45)
[2020-04-13] MEDS ORDERED: LORATADINE 10 MG TAB As Ordered ONE (21:45)
[2020-04-13] MEDS ORDERED: LevoFLOXacin 750MG/150ML IV BAG (J1956 PER 250MG) As Ordered ONE (21:49)
[2020-04-14] MEDS ORDERED: LACTOBACILLUS ACIDOPHILUS CAP (BACID) ONE (09:00)
[2020-04-14] MEDS ORDERED: FLUTICASONE PROP 0.05% NASAL SPRAY 16 GM (FLONASE) ONE (09:00)
[2020-04-14] MEDS ORDERED: SODIUM CHLORIDE NASAL 0.65% SPRAY BTL (OCEAN) ONE (09:00)
[2020-04-14] MEDS ORDERED: OLANZapine 2.5MG TABLET ONE (09:00)
[2020-06-01 16:43] LABS: BASO # 0.1 10^3/uL (0.0-0.2); BASO % 0.3 % (0.0-1.0); EOS # 0.1 10^3/uL (0.0-0.5); EOS % 0.9 % (0.0-3.0); HEMOGLOBIN 9.7 g/dl (12.0-15.5); LYMPH % 6.9 % (24.0-44.0); MEAN CORPUSCULAR HEMOGLOBIN 30.4 pg (27.0-33.0); MEAN CORPUSCULAR HGB CONC 32.3 g/dl (32.0-36.5); MONO # 0.9 10^3/uL (0.0-0.8); MONO % 5.8 % (0.0-5.0); NEUTROPHILS # 12.8 10^3/uL (1.5-8.5); NEUTROPHILS % 84.8 % (36.0-66.0); PLATELET COUNT, AUTOMATED 341 10^3/uL (150-450); RED BLOOD COUNT 3.19 10^6/uL (4.00-5.40); WHITE BLOOD COUNT 15.1 10^3/uL (4.0-10.0)
[2020-06-01 18:02] LABS: APPEARANCE, URINE CLEAR (CLEAR); BACTERIA, URINE AUTO NEGATIVE (NEGATIVE); BILIRUBIN, URINE AUTO NEGATIVE (NEGATIVE); BLOOD, URINE BLOOD NEGATIVE (NEGATIVE); COLOR, URINE YELLOW (YELLOW); GLUCOSE, URINE (UA) AUTO NEGATIVE (NEGATIVE); KETONE, URINE AUTO NEGATIVE (NEGATIVE); LEUKOCYTE ESTERASE, URINE AUTO NEGATIVE (NEGATIVE); NITRITE, URINE AUTO NEGATIVE (NEGATIVE); PROTEIN, URINE AUTO NEGATIVE (NEGATIVE); RBC, URINE AUTO 2 /HPF (0-3); SQUAMOUS EPITHELIAL CELL UR AU 0 /HPF (0-6); UROBILINOGEN, URINE AUTO 0.2 mg/dL (0.0-2.0); WBC, URINE AUTO 1 /HPF (0-3)
[2020-06-08 07:16] LABS: HEMATOCRIT 31.1 % (36.0-47.0); HEMOGLOBIN 9.8 g/dl (12.0-15.5); MEAN CORPUSCULAR HEMOGLOBIN 29.9 pg (27.0-33.0); MEAN CORPUSCULAR HGB CONC 31.5 g/dl (32.0-36.5); MEAN CORPUSCULAR VOLUME 94.8 fl (80.0-96.0); PLATELET COUNT, AUTOMATED 331 10^3/uL (150-450); RED BLOOD COUNT 3.28 10^6/uL (4.00-5.40)
[2020-06-08 18:14] LABS: HEMATOCRIT 30.5 % (36.0-47.0); HEMOGLOBIN 9.7 g/dl (12.0-15.5); MEAN CORPUSCULAR HEMOGLOBIN 29.8 pg (27.0-33.0); MEAN CORPUSCULAR HGB CONC 31.8 g/dl (32.0-36.5); MEAN CORPUSCULAR VOLUME 93.8 fl (80.0-96.0); PLATELET COUNT, AUTOMATED 360 10^3/uL (150-450); RED BLOOD COUNT 3.25 10^6/uL (4.00-5.40); WHITE BLOOD COUNT 9.8 10^3/uL (4.0-10.0)
[2020-06-18] MEDS ORDERED: CO Q200C10 PO (15:51)
[2020-06-18] MEDS ORDERED: WELLTAB38 PO (15:51)
[2020-06-18] MEDS ORDERED: ALBU83IN INH (15:51)
[2020-06-18] MEDS ORDERED: SING10TA32 PO (15:51)
[2020-06-18] MEDS ORDERED: OYST500T12 PO (15:51)
[2020-06-18] MEDS ORDERED: DETR4CAP PO (15:51)
[2020-06-18] MEDS ORDERED: NEXI40CA PO (15:51)
[2020-06-18] MEDS ORDERED: CELE100C PO (15:51)
[2020-06-18] MEDS ORDERED: PERC10TA26 PO (15:51)
[2020-06-23 13:46] LABS: HEMATOCRIT 26.8 % (36.0-47.0); HEMOGLOBIN 8.7 g/dl (12.0-15.5); MEAN CORPUSCULAR HGB CONC 32.5 g/dl (32.0-36.5); MEAN CORPUSCULAR VOLUME 92.4 fl (80.0-96.0); PLATELET COUNT, AUTOMATED 361 10^3/uL (150-450); WHITE BLOOD COUNT 9.1 10^3/uL (4.0-10.0)
[2020-06-29 07:37] LABS: ALBUMIN 1.7 GM/DL (3.2-5.2); ALT/SGPT 39 U/L (12-78); BILIRUBIN,TOTAL 0.4 MG/DL (0.2-1.0); BLOOD UREA NITROGEN 12 MG/DL (7-18); CALCIUM LEVEL 6.9 MG/DL (8.8-10.2); CARBON DIOXIDE LEVEL 19 MEQ/L (21-32); CHLORIDE LEVEL 105 MEQ/L (98-107); CREATININE FOR GFR 0.81 MG/DL (0.55-1.30); GLOMERULAR FILTRATION RATE > 60.0 (>45); GLUCOSE, FASTING 83 MG/DL (70-100); MAGNESIUM LEVEL 1.6 MG/DL (1.8-2.4); POTASSIUM SERUM 3.8 MEQ/L (3.5-5.1); SODIUM LEVEL 131 MEQ/L (136-145); TOTAL PROTEIN 4.8 GM/DL (6.4-8.2)
[2020-07-06 02:50] LABS: ALBUMIN 2.1 GM/DL (3.2-5.2); ALT/SGPT 87 U/L (12-78); BILIRUBIN,TOTAL 0.5 MG/DL (0.2-1.0); BLOOD UREA NITROGEN 12 MG/DL (7-18); CALCIUM LEVEL 7.5 MG/DL (8.8-10.2); CARBON DIOXIDE LEVEL 19 MEQ/L (21-32); CHLORIDE LEVEL 110 MEQ/L (98-107); CREATININE FOR GFR 0.85 MG/DL (0.55-1.30); GLOMERULAR FILTRATION RATE > 60.0 (>45); GLUCOSE, FASTING 85 MG/DL (70-100); MAGNESIUM LEVEL 1.9 MG/DL (1.8-2.4); POTASSIUM SERUM 3.8 MEQ/L (3.5-5.1); SODIUM LEVEL 137 MEQ/L (136-145); TOTAL PROTEIN 5.6 GM/DL (6.4-8.2)
== END 2020-04-13 21:00 | disposition home or self-care (01) | DRG 91 ==
LOC: M PM&R 16:00
PROVIDERS: ADMIT Physical Medicine & Rehabilitation; ATTEND Physical Medicine & Rehabilitation
DX: R26.89 Other abnormalities of gait and mobility (principal); J18.9 Pneumonia, unspecified organism; Z90.49 Acquired absence of other specified parts of digestive tract; I48.91 Unspecified atrial fibrillation; Z79.01 Long term (current) use of anticoagulants; E83.42 Hypomagnesemia; I35.0 Nonrheumatic aortic (valve) stenosis

== ENCOUNTER 2020-04-13 21:50 | Inpatient (IN) | payer MEDICARE, OTHER ==
[~2020-04-13 21:50] MED LIST changes: +AMIODARONE 200 MG TAB (PACERONE) ONE; +APIXABAN 5 MG TAB (ELIQUIS) ONE; +DULoxetine 30 MG CAP (CYMBALTA) ONE; +GABAPENTIN 300 MG CAP ONE; +LACTOBACILLUS ACIDOPHILUS CAP (BACID) ONE; +LORATADINE 10 MG TAB ONE; +LevoFLOXacin 750MG/150ML IV BAG (J1956 PER 250MG) ONE; +PANTOPRAZOLE 40MG TAB (PROTONIX) ONE; +ROSUVASTATIN 10 MG TAB (CRESTOR) ONE; +guaiFENesin 200 MG TAB ONE
[2020-04-13] MEDS ORDERED: NORCO, ANEXSIA 5/325MG TABLET (HYDROcodone/ACETAMINOPHEN) ONE (22:10)
[2020-04-14] MEDS ORDERED: VANCOMYCIN 1000MG/20ML VIAL As Ordered ONE (04:23)
[2020-04-14] MEDS ORDERED: NORCO, ANEXSIA 5/325MG TABLET (HYDROcodone/ACETAMINOPHEN) As Ordered ONE ×5 (05:02→22:54)
[2020-04-14] MEDS ORDERED: DULoxetine 30 MG CAP (CYMBALTA) As Ordered ONE ×2 (09:45→21:13)
[2020-04-14] MEDS ORDERED: DOCUSATE SODIUM 100 MG CAP As Ordered ONE ×3 (09:45→21:13)
[2020-04-14] MEDS ORDERED: GABAPENTIN 300 MG CAP As Ordered ONE ×3 (09:46→21:14)
[2020-04-14] MEDS ORDERED: APIXABAN 5 MG TAB (ELIQUIS) As Ordered ONE ×2 (09:46→21:13)
[2020-04-14] MEDS ORDERED: PANTOPRAZOLE 40MG TAB (PROTONIX) As Ordered ONE ×2 (09:46→21:14)
[2020-04-14] MEDS ORDERED: MAGNESIUM OXIDE 400 MG TAB (MAG-OX) As Ordered ONE (09:46)
[2020-04-14] MEDS ORDERED: FOLIC ACID 1 MG TAB As Ordered ONE (09:47)
[2020-04-14] MEDS ORDERED: VITAMIN D 1,000 INTERNATIONAL UNITS TABLET As Ordered ONE (09:47)
[2020-04-14] MEDS ORDERED: AMIODARONE 200 MG TAB (PACERONE) As Ordered ONE ×3 (09:47→21:15)
[2020-04-14] MEDS ORDERED: PERCOCET 5MG/325MG TAB As Ordered ONE (10:15)
[2020-04-14] MEDS ORDERED: OLANZapine 2.5MG TABLET ONE (13:00)
[2020-04-14] MEDS ORDERED: LACTOBACILLUS ACIDOPHILUS CAP (BACID) As Ordered ONE ×2 (17:13→21:14)
[2020-04-14] MEDS ORDERED: metroNIDAZOLE/NACL 500MG(5MG/ML) 100ML BAG (S0030) As Ordered ONE ×2 (18:10→23:30)
[2020-04-14] MEDS ORDERED: LORATADINE 10 MG TAB As Ordered ONE (21:13)
[2020-04-14] MEDS ORDERED: ROSUVASTATIN 10 MG TAB (CRESTOR) As Ordered ONE (21:15)
[2020-04-14] MEDS ORDERED: LevoFLOXacin 750MG/150ML IV BAG (J1956 PER 250MG) As Ordered ONE (22:54)
[2020-04-15] MEDS ORDERED: ACETAMINOPHEN TAB 650MG DOSE (2X325MG) As Ordered ONE (01:47)
[2020-04-15] MEDS ORDERED: NORCO, ANEXSIA 5/325MG TABLET (HYDROcodone/ACETAMINOPHEN) As Ordered ONE ×4 (03:28→18:33)
[2020-04-15] MEDS ORDERED: DOCUSATE SODIUM 100 MG CAP As Ordered ONE ×2 (09:08→15:38)
[2020-04-15] MEDS ORDERED: DULoxetine 30 MG CAP (CYMBALTA) As Ordered ONE (09:08)
[2020-04-15] MEDS ORDERED: APIXABAN 5 MG TAB (ELIQUIS) As Ordered ONE (09:08)
[2020-04-15] MEDS ORDERED: PANTOPRAZOLE 40MG TAB (PROTONIX) As Ordered ONE (09:09)
[2020-04-15] MEDS ORDERED: GABAPENTIN 300 MG CAP As Ordered ONE ×2 (09:09→15:39)
[2020-04-15] MEDS ORDERED: MAGNESIUM OXIDE 400 MG TAB (MAG-OX) As Ordered ONE (09:09)
[2020-04-15] MEDS ORDERED: FOLIC ACID 1 MG TAB As Ordered ONE (09:10)
[2020-04-15] MEDS ORDERED: AMIODARONE 200 MG TAB (PACERONE) As Ordered ONE ×2 (09:10→15:40)
[2020-04-15] MEDS ORDERED: metroNIDAZOLE/NACL 500MG(5MG/ML) 100ML BAG (S0030) As Ordered ONE ×2 (09:10→15:39)
[2020-04-15] MEDS ORDERED: LACTOBACILLUS ACIDOPHILUS CAP (BACID) As Ordered ONE ×2 (09:10→15:39)
[2020-04-15] MEDS ORDERED: VITAMIN D 1,000 INTERNATIONAL UNITS TABLET As Ordered ONE (09:10)
[2020-04-15] MEDS ORDERED: CARV12.5 PO (13:17)
[2020-04-15] MEDS ORDERED: ZOLP5TAB PO (13:17)
[2020-04-15] MEDS ORDERED: VITA-145 PO (13:17)
[2020-04-15] MEDS ORDERED: GNP250TA9 PO (13:17)
[2020-04-15] MEDS ORDERED: LORA-674 PO (13:17)
[2020-04-15] MEDS ORDERED: FLEEENE12 PR (13:17)
[2020-04-15] MEDS ORDERED: SENN-80 PO (13:27)
[2020-04-15] MEDS ORDERED: GLUCAGON INJ 1MG VIAL SC PRN (19:00)
[2020-04-15] MEDS ORDERED: GLUCOSE 4GM CHEW TABLET PO PRN (19:00)
[2020-04-15] MEDS ORDERED: DEXTROSE 50% 50 ML SYRINGE IV PRN (19:00)
[2020-04-15 20:00] VITALS: BP 97/53
[2020-04-15] MEDS: IPRATROPIUM 0.5MG/ALBUTEROL 2.5MG INH SOL UD 3ML (DUONEB) NEB SCH (20:48)
[2020-04-15] MEDS: DOCUSATE SODIUM 100 MG CAP PO SCH (21:12)
[2020-04-15] MEDS: APIXABAN 5 MG TAB (ELIQUIS) PO SCH (21:12)
[2020-04-15] MEDS: PANTOPRAZOLE 40MG TAB (PROTONIX) PO SCH (21:12)
[2020-04-15] MEDS: DULoxetine 30 MG CAP (CYMBALTA) PO SCH (21:13)
[2020-04-15] MEDS: GABAPENTIN 300 MG CAP PO SCH (21:13)
[2020-04-15] MEDS: LACTOBACILLUS ACIDOPHILUS CAP (BACID) PO SCH (21:13)
[2020-04-15] MEDS: ROSUVASTATIN 10 MG TAB (CRESTOR) PO SCH (21:13)
[2020-04-15] MEDS: OLANZapine 2.5MG TABLET PO SCH (21:13)
[2020-04-15] MEDS: LORATADINE 10 MG TAB PO SCH (21:13)
[2020-04-15] MEDS: FLUTICASONE PROP 0.05% NASAL SPRAY 16 GM (FLONASE) NARES SCH (21:14)
[2020-04-15] MEDS: SODIUM CHLORIDE NASAL 0.65% SPRAY BTL (OCEAN) SCH (21:14)
[2020-04-15] MEDS: ACETAMINOPHEN TAB 650MG DOSE (2X325MG) PO PRN (21:14)
[2020-04-15] MEDS: REMEDY PHYTOPLEX Z-GUARD PASTE 113GM TUBE (FROM STOREROOM PRODUCT) TOP SCH (21:15)
[2020-04-15] MEDS: NS 1,000 ML IV SCH (21:15)
[2020-04-15] MEDS: AMIODARONE 200 MG TAB (PACERONE) PO SCH (21:16)
[2020-04-15 21:50] LABS: HEMATOCRIT 27.5 % (36.0-47.0); HEMOGLOBIN 8.6 g/dl (12.0-15.5); MEAN CORPUSCULAR HEMOGLOBIN 29.7 pg (27.0-33.0); MEAN CORPUSCULAR HGB CONC 31.3 g/dl (32.0-36.5); MEAN CORPUSCULAR VOLUME 94.8 fl (80.0-96.0); PLATELET COUNT, AUTOMATED 393 10^3/uL (150-450); WHITE BLOOD COUNT 7.9 10^3/uL (4.0-10.0)
[2020-04-15] MEDS: NORCO, ANEXSIA 5/325MG TABLET (HYDROcodone/ACETAMINOPHEN) PO PRN (22:34)
[2020-04-16] MEDS: LevoFLOXacin IV 750 MG in IV 1 EA IV SCH ×2 (00:22→23:21)
[2020-04-16] MEDS: metroNIDAZOLE 500 MG in IV 1 EA IV SCH ×3 (01:28→16:10)
[2020-04-16] MEDS ORDERED: VANCOMYCIN HCL 1,000 MG, VIAL MATE ADAPTER 1 EACH in D5W 250 ML IV SCH (02:00)
[2020-04-16] MEDS: zolPIDEM TARTRATE 5 MG TAB PO PRN (03:04)
[2020-04-16 04:00] VITALS: BP 113/61
[2020-04-16] MEDS: NS 1,000 ML IV SCH ×2 (05:31→16:16)
[2020-04-16 06:15] LABS: HEMATOCRIT 26.4 % (36.0-47.0); HEMOGLOBIN 8.2 g/dl (12.0-15.5); MEAN CORPUSCULAR HEMOGLOBIN 29.6 pg (27.0-33.0); MEAN CORPUSCULAR HGB CONC 31.1 g/dl (32.0-36.5); MEAN CORPUSCULAR VOLUME 95.3 fl (80.0-96.0); PLATELET COUNT, AUTOMATED 354 10^3/uL (150-450); RED BLOOD COUNT 2.77 10^6/uL (4.00-5.40)
[2020-04-16 06:47] LABS: BLOOD UREA NITROGEN 5 MG/DL (7-18); CALCIUM LEVEL 7.4 MG/DL (8.8-10.2); CARBON DIOXIDE LEVEL 20 MEQ/L (21-32); CHLORIDE LEVEL 118 MEQ/L (98-107); CREATININE FOR GFR 0.77 MG/DL (0.55-1.30); GLOMERULAR FILTRATION RATE > 60.0 (>45); GLUCOSE, FASTING 84 MG/DL (70-100); POTASSIUM SERUM 3.7 MEQ/L (3.5-5.1); SODIUM LEVEL 143 MEQ/L (136-145)
[2020-04-16 07:36] VITALS: BP 137/83
[2020-04-16] MEDS: VITAMIN D 1,000 INTERNATIONAL UNITS TABLET PO SCH (07:42)
[2020-04-16] MEDS: AMIODARONE 200 MG TAB (PACERONE) PO SCH ×3 (07:42→20:45)
[2020-04-16] MEDS: PANTOPRAZOLE 40MG TAB (PROTONIX) PO SCH ×2 (07:42→20:46)
[2020-04-16] MEDS: FOLIC ACID 1 MG TAB PO SCH (07:43)
[2020-04-16] MEDS: GABAPENTIN 300 MG CAP PO SCH ×3 (07:43→20:46)
[2020-04-16] MEDS: DULoxetine 30 MG CAP (CYMBALTA) PO SCH ×2 (07:43→20:46)
[2020-04-16] MEDS: LACTOBACILLUS ACIDOPHILUS CAP (BACID) PO SCH ×3 (07:43→20:45)
[2020-04-16] MEDS: OLANZapine 2.5MG TABLET PO SCH ×2 (07:43→20:46)
[2020-04-16] MEDS: MAGNESIUM OXIDE 400 MG TAB (MAG-OX) PO SCH (07:43)
[2020-04-16] MEDS: APIXABAN 5 MG TAB (ELIQUIS) PO SCH ×2 (07:44→20:46)
[2020-04-16] MEDS: NORCO, ANEXSIA 5/325MG TABLET (HYDROcodone/ACETAMINOPHEN) PO PRN ×4 (07:45→20:47)
[2020-04-16] MEDS: SODIUM CHLORIDE NASAL 0.65% SPRAY BTL (OCEAN) SCH ×3 (07:45→20:47)
[2020-04-16] MEDS: FLUTICASONE PROP 0.05% NASAL SPRAY 16 GM (FLONASE) NARES SCH ×2 (07:45→20:47)
[2020-04-16] MEDS: REMEDY PHYTOPLEX Z-GUARD PASTE 113GM TUBE (FROM STOREROOM PRODUCT) TOP SCH ×3 (07:48→21:00)
[2020-04-16] MEDS: DOCUSATE SODIUM 100 MG CAP PO SCH ×3 (07:49→20:46)
[2020-04-16] MEDS: IPRATROPIUM 0.5MG/ALBUTEROL 2.5MG INH SOL UD 3ML (DUONEB) NEB SCH ×3 (07:57→19:40)
[2020-04-16 12:00] VITALS: BP 133/75
[2020-04-16 15:43] VITALS: BP 111/71
--- NOTE | 2020-04-16 16:00 | IPNPDOC ---
Date Seen The patient was seen on 04/16/20. Progress Note SUBJECTIVE: Pt seen at bedside this am, NAD. no acute complaints. Pain is controlled. Wound vac site intact. No acute events overnight. BP controlled and no episodes of hypotension. bp was 137/83 this am. Denies CP, SOB, abdominal pain. Pt is tolerating PT/OT well. OBJECTIVE PHYSICAL EXAMINATION: VITAL SIGNS: Please see below. GENERAL: NAD, resting comfortably in bed, no accessory m use, no retractions HEENT: head atraumatic EOMI, mucosa moist NECK:no lymphadenopathy, neck supple no thyromegaly CARDIOVASCULAR EXAMINATION: Ns1,2, systolic murmur 3/6 (aortic stenosis ) RESPIRATORY EXAMINATION: no wheezing, rhonci or rales ABDOMINAL EXAMINATION: soft, nt, nd, nbs, wound vac site intact EXTREMITIES/SKIN :no pitting edema, no bruising, cyanosis, clubbing or hematomas NEUROLOGICAL EXAMINATION: no focal neuro deficits PSYCHIATRIC EXAMINATION: appropriate mood and affect LABORATORY DATA, IMAGING STUDIES, MICROBIOLOGY: Please see below. ASSESSMENT AND PLAN: # SBO s/p subtotal colectomy # PNA # Afib RVR # HTN # acute hypoxic respiratory failure (resolved) # #HLD - Pt is in sinus rhythm; Continue amiodarone 200mg PO TID - Hypotension resolved- resumed atenolol 25mg PO qd w/ hold parameters sbp <100; dbp <90; HR <60 - will continue to monitor bp closely - Continue levaquin and flagyl - Continue PT/OT - daily CBC, BMP - will continue to monitor closely and replete lytes accordingly DVT ppx: eliquis GI ppx: protonix and detrol LA DISPOSITION: Continue PT/OT. Dr. Urbina wants patient on the floor for a few more days before returning back to [facility]. VS, I&O, 24H, Fishbone Vital Signs/I&O Vital Signs Date Time Temp Pulse Resp B/P (MAP) Pulse Ox O2 Delivery O2 Flow Rate FiO2 04/16/20 12:45 18 Room Air 04/16/20 12:00 97.7 92 133/75 (94) 99 Laboratory Data 24H LABS Laboratory Tests 2 04/16/20 05:40: Nucleated Red Blood Cells % (auto) 0.3H, Anion Gap 5L, Glomerular Filtration Rate > 60.0, Calcium Level 7.4L CBC/BMP Laboratory Tests 04/16/20 05:40 GME ATTESTATION GME ATTESTATION My faculty preceptor for this patient encounter was physically present during the encounter and was fully available. All aspects of the patient interview, examination, medical decision making process, and medical care plan development were reviewed and approved by the faculty preceptor. The faculty preceptor is aware and concurs with the plan as stated in the body of this note and will attest to such by his/her cosignature. ATTENDING NOTE Patient independently seen and examined. Agree with resident's note. Carlos Singh DO Apr 16, 2020 15:59 JORY HENDERSON MD May 13, 2020 11:14
[2020-04-16] MEDS ORDERED: atenoloL 25 MG TAB As Ordered ONE (16:05)
[2020-04-16] MEDS: TOLTERODINE TARTRATE 2 MG LA CAP (DETROL LA) PO SCH (16:12)
[2020-04-16] MEDS ORDERED: NORCO, ANEXSIA 5/325MG TABLET (HYDROcodone/ACETAMINOPHEN) PO ONE (18:00)
[2020-04-16 20:00] VITALS: BP 113/55
[2020-04-16] MEDS: ROSUVASTATIN 10 MG TAB (CRESTOR) PO SCH (20:46)
[2020-04-16] MEDS: LORATADINE 10 MG TAB PO SCH (20:46)
[2020-04-17] VITALS: BP 118/78
[2020-04-17] MEDS: NORCO, ANEXSIA 5/325MG TABLET (HYDROcodone/ACETAMINOPHEN) PO PRN ×5 (00:51→21:20)
[2020-04-17] MEDS: zolPIDEM TARTRATE 5 MG TAB PO PRN (00:51)
[2020-04-17] MEDS: metroNIDAZOLE 500 MG in IV 1 EA IV SCH ×3 (01:36→16:56)
[2020-04-17 04:00] VITALS: BP 114/64
[2020-04-17 04:47] LABS: HEMATOCRIT 28.6 % (36.0-47.0); HEMOGLOBIN 8.5 g/dl (12.0-15.5); MEAN CORPUSCULAR HEMOGLOBIN 29.6 pg (27.0-33.0); MEAN CORPUSCULAR HGB CONC 29.7 g/dl (32.0-36.5); MEAN CORPUSCULAR VOLUME 99.7 fl (80.0-96.0); PLATELET COUNT, AUTOMATED 330 10^3/uL (150-450); RED BLOOD COUNT 2.87 10^6/uL (4.00-5.40); WHITE BLOOD COUNT 9.3 10^3/uL (4.0-10.0)
[2020-04-17 05:11] LABS: BLOOD UREA NITROGEN 4 MG/DL (7-18); CALCIUM LEVEL 7.1 MG/DL (8.8-10.2); CARBON DIOXIDE LEVEL 18 MEQ/L (21-32); CHLORIDE LEVEL 120 MEQ/L (98-107); CREATININE FOR GFR 0.92 MG/DL (0.55-1.30); GLOMERULAR FILTRATION RATE > 60.0 (>45); GLUCOSE, FASTING 93 MG/DL (70-100); POTASSIUM SERUM 3.6 MEQ/L (3.5-5.1); SODIUM LEVEL 142 MEQ/L (136-145)
[2020-04-17] MEDS: NS 1,000 ML IV SCH ×3 (06:26→21:00)
--- NOTE | 2020-04-17 07:39 | IPNPDOC ---
Date Seen The patient was seen on 04/17/20. Progress Note SUBJECTIVE: Pt seen at bedside this am, NAD. No acute complaints. Pain is controlled. Wound vac site intact. No acute events overnight. Atenolol decreased from 25mg to 12.5mg PO daily. BP controlled and no episodes of hypotension overnight. Denies CP, sob, fever, n/v/d. She has some increased pain from the wound vac. OBJECTIVE PHYSICAL EXAMINATION: VITAL SIGNS: Please see below. GENERAL: NAD, resting comfortably in bed, no accessory m use, no retractions HEENT: head atraumatic EOMI, mucosa moist NECK: no lymphadenopathy, neck supple no thyromegaly CARDIOVASCULAR EXAMINATION: Ns1,2, systolic murmur 3/6 (aortic stenosis ) RESPIRATORY EXAMINATION: no wheezing, rhonci or rales ABDOMINAL EXAMINATION: soft, nt, nd, nbs, wound vac site intact EXTREMITIES/SKIN :no pitting edema, no bruising, cyanosis, clubbing or hematomas NEUROLOGICAL EXAMINATION: no focal neuro deficits PSYCHIATRIC EXAMINATION: appropriate mood and affect LABORATORY DATA, IMAGING STUDIES, MICROBIOLOGY: Please see below. LABORATORY DATA, IMAGING STUDIES, MICROBIOLOGY: Please see below. ASSESSMENT AND PLAN: # SBO s/p subtotal colectomy # PNA # Afib RVR # HTN # Acute hypoxic respiratory failure (resolved) # #HLD - Pt is in sinus rhythm; Continue amiodarone 200mg PO TID - Hypotension resolved- atenolol 12.5mg PO qd w/ hold parameters sbp <100; dbp <90; HR <60 - will continue to monitor bp closely - Continue levaquin and flagyl - Continue PT/OT - daily CBC, BMP - will continue to monitor closely and replete lytes accordingly DVT ppx: eliquis GI ppx: protonix and detrol LA DISPOSITION: Continue PT/OT. Dr. Urbina wants patient on the floor for a few more days before returning back to ARU. VS, I&O, 24H, Fishbone Vital Signs/I&O Vital Signs Date Time Temp Pulse Resp B/P (MAP) Pulse Ox O2 Delivery O2 Flow Rate FiO2 04/17/20 05:26 18 Room Air 04/17/20 04:00 98.1 99 114/64 (81) 95 I&O- Last 24 Hours up to 6 AM 04/17/20 06:00 Intake Total 3520 ml Output Total 2300 ml Balance 1220 ml Laboratory Data 24H LABS Laboratory Tests 2 04/17/20 04:15: Nucleated Red Blood Cells % (auto) 0.2H, Anion Gap 4L, Glomerular Filtration Rate > 60.0, Calcium Level 7.1L CBC/BMP Laboratory Tests 04/17/20 04:15 Microbiology Microbiology 04/14/20 Gram Stain - Final, Complete 04/14/20 Wound Culture - Final, Complete 04/14/20 Urine Culture - Final, Complete GME ATTESTATION GME ATTESTATION My faculty preceptor for this patient encounter was physically present during the encounter and was fully available. All aspects of the patient interview, examination, medical decision making process, and medical care plan development were reviewed and approved by the faculty preceptor. The faculty preceptor is aware and concurs with the plan as stated in the body of this note and will attest to such by his/her cosignature. ATTENDING NOTE Patient independently seen and examined. Agree with resident's note. Carlos Singh DO Apr 17, 2020 07:39 JORY HENDERSON MD May 13, 2020 11:15
[2020-04-17] MEDS: IPRATROPIUM 0.5MG/ALBUTEROL 2.5MG INH SOL UD 3ML (DUONEB) NEB SCH ×3 (07:41→20:00)
[2020-04-17 08:00] VITALS: BP 102/54
[2020-04-17 08:40] LABS: BASO % 0.5 % (0.0-1.0); EOS # 0.2 10^3/uL (0.0-0.5); EOS % 2.7 % (0.0-3.0); HEMOGLOBIN 8.8 g/dl (12.0-15.5); LYMPH # 0.9 10^3/uL (1.5-5.0); LYMPH % 13.9 % (24.0-44.0); MEAN CORPUSCULAR HEMOGLOBIN 29.5 pg (27.0-33.0); MEAN CORPUSCULAR HGB CONC 31.4 g/dl (32.0-36.5); MONO # 0.8 10^3/uL (0.0-0.8); MONO % 12.9 % (0.0-5.0); NEUTROPHILS # 4.2 10^3/uL (1.5-8.5); NEUTROPHILS % 68.1 % (36.0-66.0); PLATELET COUNT, AUTOMATED 386 10^3/uL (150-450); RED BLOOD COUNT 2.98 10^6/uL (4.00-5.40); WHITE BLOOD COUNT 6.2 10^3/uL (4.0-10.0)
[2020-04-17 08:57] LABS: INR 2.26; PROTHROMBIN TIME 25.5 SECONDS (11.8-14.0)
[2020-04-17] MEDS ORDERED: atenoloL 25 MG TAB PO SCH (09:00)
[2020-04-17] MEDS: MAGNESIUM OXIDE 400 MG TAB (MAG-OX) PO SCH (09:41)
[2020-04-17] MEDS: VITAMIN D 1,000 INTERNATIONAL UNITS TABLET PO SCH (09:41)
[2020-04-17] MEDS: LACTOBACILLUS ACIDOPHILUS CAP (BACID) PO SCH ×3 (09:41→21:19)
[2020-04-17] MEDS: OLANZapine 2.5MG TABLET PO SCH ×2 (09:41→21:20)
[2020-04-17] MEDS: APIXABAN 5 MG TAB (ELIQUIS) PO SCH ×2 (09:41→21:20)
[2020-04-17] MEDS: TOLTERODINE TARTRATE 2 MG LA CAP (DETROL LA) PO SCH (09:41)
[2020-04-17] MEDS: GABAPENTIN 300 MG CAP PO SCH ×3 (09:42→21:19)
[2020-04-17] MEDS: AMIODARONE 200 MG TAB (PACERONE) PO SCH ×3 (09:42→21:20)
[2020-04-17] MEDS: DOCUSATE SODIUM 100 MG CAP PO SCH ×3 (09:42→21:00)
[2020-04-17] MEDS: PANTOPRAZOLE 40MG TAB (PROTONIX) PO SCH ×2 (09:42→21:19)
[2020-04-17] MEDS: FOLIC ACID 1 MG TAB PO SCH (09:42)
[2020-04-17] MEDS: DULoxetine 30 MG CAP (CYMBALTA) PO SCH ×2 (09:42→21:19)
[2020-04-17 09:43] LABS: APPEARANCE, URINE MANUAL CLEAR (CLEAR); COLOR, URINE MANUAL YELLOW (YELLOW); GLUCOSE, URINE (UA) MANUAL NEGATIVE (NEGATIVE); KETONE, URINE MANUAL NEGATIVE (NEGATIVE); PROTEIN, URINE MANUAL NEGATIVE (NEGATIVE)
[2020-04-17 09:44] LABS: BILIRUBIN, URINE MANUAL NEGATIVE (NEGATIVE); BLOOD URINE MANUAL TRACE (NEGATIVE); LEUKOCYTE ESTERASE, URINE MAN NEGATIVE (NEGATIVE); NITRITE, URINE MANUAL NEGATIVE (NEGATIVE); UROBILINOGEN, URINE MANUAL NORMAL (NORMAL)
[2020-04-17] MEDS: SODIUM CHLORIDE NASAL 0.65% SPRAY BTL (OCEAN) SCH ×3 (09:44→21:19)
[2020-04-17] MEDS: FLUTICASONE PROP 0.05% NASAL SPRAY 16 GM (FLONASE) NARES SCH ×2 (09:44→21:18)
[2020-04-17] MEDS: REMEDY PHYTOPLEX Z-GUARD PASTE 113GM TUBE (FROM STOREROOM PRODUCT) TOP SCH ×3 (09:45→21:22)
[2020-04-17 09:46] LABS: BACTERIA, URINE SMALL AMOUNT; HYALINE CAST, URINE NONE SEEN /lpf (0-1); MUCUS, URINE SMALL AMOUNT (NEGATIVE); RBC, URINE 0-1 /hpf (0-3); SQUAMOUS EPITHELIAL CELL URINE SMALL AMOUNT /hpf (SMALL AMT)
[2020-04-17] MEDS: ATENOLOL 12.5MG PER 1/2 TABLET PO SCH (10:25)
[2020-04-17 11:24] VITALS: BP 127/69
[2020-04-17 15:37] VITALS: BP 112/59
[2020-04-17 20:00] VITALS: BP 97/72
[2020-04-17] MEDS: ROSUVASTATIN 10 MG TAB (CRESTOR) PO SCH (21:18)
[2020-04-17] MEDS: LORATADINE 10 MG TAB PO SCH (21:19)
[2020-04-17] MEDS: LevoFLOXacin IV 750 MG in IV 1 EA IV SCH (23:07)
[2020-04-18] VITALS (7 sets, daily range): BP systolic 95–129; BP diastolic 48–79
[2020-04-18] MEDS: metroNIDAZOLE 500 MG in IV 1 EA IV SCH ×3 (00:55→16:54)
[2020-04-18] MEDS: NORCO, ANEXSIA 5/325MG TABLET (HYDROcodone/ACETAMINOPHEN) PO PRN ×3 (03:16→16:55)
[2020-04-18 04:19] LABS: HEMATOCRIT 27.5 % (36.0-47.0); HEMOGLOBIN 8.7 g/dl (12.0-15.5); MEAN CORPUSCULAR HEMOGLOBIN 29.7 pg (27.0-33.0); MEAN CORPUSCULAR HGB CONC 31.6 g/dl (32.0-36.5); MEAN CORPUSCULAR VOLUME 93.9 fl (80.0-96.0); PLATELET COUNT, AUTOMATED 315 10^3/uL (150-450); RED BLOOD COUNT 2.93 10^6/uL (4.00-5.40); WHITE BLOOD COUNT 9.5 10^3/uL (4.0-10.0)
[2020-04-18 04:42] LABS: BLOOD UREA NITROGEN 4 MG/DL (7-18); C REACTIVE PROTEIN QUANTITATIV 7.98 MG/DL (0.00-0.30); CALCIUM LEVEL 7.2 MG/DL (8.8-10.2); CARBON DIOXIDE LEVEL 20 MEQ/L (21-32); CHLORIDE LEVEL 119 MEQ/L (98-107); CREATININE FOR GFR 0.81 MG/DL (0.55-1.30); GLOMERULAR FILTRATION RATE > 60.0 (>45); GLUCOSE, FASTING 81 MG/DL (70-100); POTASSIUM SERUM 3.6 MEQ/L (3.5-5.1); SODIUM LEVEL 140 MEQ/L (136-145)
[2020-04-18] MEDS: NS 1,000 ML IV SCH ×2 (06:56→18:39)
--- NOTE | 2020-04-18 07:50 | IPNPDOC ---
Date Seen The patient was seen on 04/18/20. Progress Note SUBJECTIVE: Pt seen at bedside this am, NAD. No acute complaints. Pain is controlled. Wound vac popped off and nurse is putting in new one. No acute events overnight. BP controlled and no episodes of hypotension overnight. Denies CP, sob, fever, n/v/d. She has some increased pain from the wound vac. OBJECTIVE PHYSICAL EXAMINATION: VITAL SIGNS: Please see below. GENERAL: NAD, resting comfortably in bed, no accessory m use, no retractions HEENT: head atraumatic EOMI, mucosa moist NECK: no lymphadenopathy, neck supple no thyromegaly CARDIOVASCULAR EXAMINATION: Ns1,2, systolic murmur 3/6 (aortic stenosis ) RESPIRATORY EXAMINATION: no wheezing, rhonci or rales ABDOMINAL EXAMINATION: soft, nt, nd, nbs, wound vac site intact EXTREMITIES/SKIN :no pitting edema, no bruising, cyanosis, clubbing or hematomas NEUROLOGICAL EXAMINATION: no focal neuro deficits PSYCHIATRIC EXAMINATION: appropriate mood and affect LABORATORY DATA, IMAGING STUDIES, MICROBIOLOGY: Please see below. LABORATORY DATA, IMAGING STUDIES, MICROBIOLOGY: Please see below. ASSESSMENT AND PLAN: # SBO s/p subtotal colectomy # PNA # Afib RVR # HTN # Acute hypoxic respiratory failure (resolved) # #HLD - Pt is in sinus rhythm; Continue amiodarone 200mg PO TID - Hypotension resolved- continue atenolol 12.5mg PO qd w/ hold parameters sbp <100; dbp <90; HR <60 - no hypotension in 48h- d/c telemetry - will continue to monitor bp closely - Continue levaquin (day 3) and flagyl (10/05) per infectious disease recommendations - Continue PT/OT - daily CBC, BMP - will continue to monitor closely and replete lytes accordingly Consultations: Dr. Urbina (Gen surg); ID (Dr. Stokes) DVT ppx: eliquis GI ppx: protonix and detrol LA DISPOSITION: Continue PT/OT. Anticipate ARU on tuesday. VS, I&O, 24H, Fishbone Vital Signs/I&O Vital Signs Date Time Temp Pulse Resp B/P (MAP) Pulse Ox O2 Delivery O2 Flow Rate FiO2 04/18/20 04:00 97.5 83 16 103/67 (79) 95 Room Air I&O- Last 24 Hours up to 6 AM 04/18/20 06:00 Intake Total 1770 ml Output Total 1875 ml Balance -105 ml Laboratory Data 24H LABS Laboratory Tests 2 04/18/20 03:42: Nucleated Red Blood Cells % (auto) 0.2H, Anion Gap 1L, Glomerular Filtration Rate > 60.0, Calcium Level 7.2L, C-Reactive Protein, Quantitative 7.98H CBC/BMP Laboratory Tests 04/18/20 03:42 Microbiology Microbiology 04/14/20 Gram Stain - Final, Complete 04/14/20 Wound Culture - Final, Complete 04/14/20 Urine Culture - Final, Complete GME ATTESTATION GME ATTESTATION My faculty preceptor for this patient encounter was physically present during the encounter and was fully available. All aspects of the patient interview, examination, medical decision making process, and medical care plan development were reviewed and approved by the faculty preceptor. The faculty preceptor is aware and concurs with the plan as stated in the body of this note and will attest to such by his/her cosignature. ATTENDING NOTE Patient independently seen and examined. Agree with resident's note. Carlos Singh DO Apr 18, 2020 07:50 JORY HENDERSON MD May 13, 2020 11:17
[2020-04-18] MEDS: IPRATROPIUM 0.5MG/ALBUTEROL 2.5MG INH SOL UD 3ML (DUONEB) NEB SCH ×3 (08:30→20:23)
[2020-04-18] MEDS: AMIODARONE 200 MG TAB (PACERONE) PO SCH ×3 (08:50→22:12)
[2020-04-18] MEDS: FOLIC ACID 1 MG TAB PO SCH (08:50)
[2020-04-18] MEDS: VITAMIN D 1,000 INTERNATIONAL UNITS TABLET PO SCH (08:51)
[2020-04-18] MEDS: MAGNESIUM OXIDE 400 MG TAB (MAG-OX) PO SCH (08:51)
[2020-04-18] MEDS: GABAPENTIN 300 MG CAP PO SCH ×3 (08:52→22:12)
[2020-04-18] MEDS: DOCUSATE SODIUM 100 MG CAP PO SCH ×3 (08:52→22:12)
[2020-04-18] MEDS: APIXABAN 5 MG TAB (ELIQUIS) PO SCH ×2 (08:52→22:12)
[2020-04-18] MEDS: ATENOLOL 12.5MG PER 1/2 TABLET PO SCH (08:52)
[2020-04-18] MEDS: PANTOPRAZOLE 40MG TAB (PROTONIX) PO SCH ×2 (08:52→22:12)
[2020-04-18] MEDS: TOLTERODINE TARTRATE 2 MG LA CAP (DETROL LA) PO SCH (08:52)
[2020-04-18] MEDS: DULoxetine 30 MG CAP (CYMBALTA) PO SCH ×2 (08:52→22:11)
[2020-04-18] MEDS: SODIUM CHLORIDE NASAL 0.65% SPRAY BTL (OCEAN) SCH ×3 (08:53→22:13)
[2020-04-18] MEDS: OLANZapine 2.5MG TABLET PO SCH ×2 (08:53→22:12)
[2020-04-18] MEDS: LACTOBACILLUS ACIDOPHILUS CAP (BACID) PO SCH ×3 (08:53→22:11)
[2020-04-18] MEDS: FLUTICASONE PROP 0.05% NASAL SPRAY 16 GM (FLONASE) NARES SCH ×2 (08:53→22:13)
[2020-04-18] MEDS: REMEDY PHYTOPLEX Z-GUARD PASTE 113GM TUBE (FROM STOREROOM PRODUCT) TOP SCH ×3 (08:54→22:18)
[2020-04-18] MEDS: LevoFLOXacin IV 750 MG in IV 1 EA IV SCH (22:11)
[2020-04-18] MEDS: LORATADINE 10 MG TAB PO SCH (22:12)
[2020-04-18] MEDS: ROSUVASTATIN 10 MG TAB (CRESTOR) PO SCH (22:12)
[2020-04-19] MEDS: metroNIDAZOLE 500 MG in IV 1 EA IV SCH ×3 (01:19→17:00)
[2020-04-19] MEDS: NORCO, ANEXSIA 5/325MG TABLET (HYDROcodone/ACETAMINOPHEN) PO PRN ×4 (02:31→21:56)
[2020-04-19 06:00] VITALS: BP 112/62
[2020-04-19] MEDS: IPRATROPIUM 0.5MG/ALBUTEROL 2.5MG INH SOL UD 3ML (DUONEB) NEB SCH ×3 (07:28→19:52)
--- NOTE | 2020-04-19 07:56 | IPNPDOC ---
Date Seen The patient was seen on 04/19/20. Progress Note SUBJECTIVE: Pt seen at bedside this am, NAD. No acute complaints. Pain is controlled. Wound vac popped off and nurse is putting in new one. No acute events overnight. BP controlled and no episodes of hypotension overnight. Denies CP, sob, fever, n/v/d. Pain from the wound vac controlled with 2 tabs of hydrocodone ROS: see HPI OBJECTIVE PHYSICAL EXAMINATION: VITAL SIGNS: Please see below. GENERAL: NAD, resting comfortably in bed, no accessory m use, no retractions HEENT: head atraumatic EOMI, mucosa moist NECK: no lymphadenopathy, neck supple no thyromegaly CARDIOVASCULAR EXAMINATION: Ns1,2, systolic murmur 3/6 (aortic stenosis ) RESPIRATORY EXAMINATION: no wheezing, rhonci or rales ABDOMINAL EXAMINATION: soft, nt, nd, nbs, wound vac site intact EXTREMITIES/SKIN :no pitting edema, no bruising, cyanosis, clubbing or hematomas NEUROLOGICAL EXAMINATION: no focal neuro deficits PSYCHIATRIC EXAMINATION: appropriate mood and affect LABORATORY DATA, IMAGING STUDIES, MICROBIOLOGY: Please see below. ASSESSMENT AND PLAN: # SBO s/p subtotal colectomy # PNA # Afib RVR # HTN # Acute hypoxic respiratory failure (resolved) # #HLD - Pt is in sinus rhythm; Continue amiodarone 200mg PO TID - Hypotension resolved- continue atenolol 12.5mg PO qd w/ hold parameters sbp <100; dbp <90; HR <60 - Will continue to monitor bp closely - Continue levaquin (day 12/03) and flagyl (11/02) per infectious disease recommendations - D/C abx after 7 days per ID (Dr. Stokes) - Continue PT/OT - daily CBC, BMP - will continue to monitor closely and replete lytes accordingly Consultations: Dr. Urbina (Gen surg); ID (Dr. Stokes) DVT ppx: Eliquis GI ppx: protonix and detrol LA Code status: Full DISPOSITION: Continue PT/OT. Anticipate ARU on Tuesday. VS, I&O, 24H, Fishbone Vital Signs/I&O Vital Signs Date Time Temp Pulse Resp B/P (MAP) Pulse Ox O2 Delivery O2 Flow Rate FiO2 04/19/20 06:00 98.6 78 18 112/62 (79) 95 Room Air I&O- Last 24 Hours up to 6 AM 04/19/20 06:00 Intake Total 2110 ml Output Total 1125 ml Balance 985 ml Laboratory Data 24H LABS Laboratory Tests 2 04/19/20 06:05: CBC/BMP Microbiology Microbiology 04/14/20 Gram Stain - Final, Complete 04/14/20 Wound Culture - Final, Complete 04/14/20 Urine Culture - Final, Complete GME ATTESTATION GME ATTESTATION My faculty preceptor for this patient encounter was physically present during the encounter and was fully available. All aspects of the patient interview, examination, medical decision making process, and medical care plan development were reviewed and approved by the faculty preceptor. The faculty preceptor is aware and concurs with the plan as stated in the body of this note and will attest to such by his/her cosignature. ATTENDING NOTE Patient independently seen and examined. Agree with resident's note. Carlos Singh DO Apr 19, 2020 07:56 JORY HENDERSON MD May 13, 2020 11:18
[2020-04-19 08:22] LABS: HEMATOCRIT 24.1 % (36.0-47.0); HEMOGLOBIN 7.5 g/dl (12.0-15.5); MEAN CORPUSCULAR HEMOGLOBIN 29.6 pg (27.0-33.0); MEAN CORPUSCULAR HGB CONC 31.1 g/dl (32.0-36.5); MEAN CORPUSCULAR VOLUME 95.3 fl (80.0-96.0); PLATELET COUNT, AUTOMATED 258 10^3/uL (150-450); RED BLOOD COUNT 2.53 10^6/uL (4.00-5.40); WHITE BLOOD COUNT 8.2 10^3/uL (4.0-10.0)
[2020-04-19] MEDS: NS 1,000 ML IV SCH ×3 (08:27→22:01)
[2020-04-19] MEDS: GABAPENTIN 300 MG CAP PO SCH ×3 (08:36→21:57)
[2020-04-19] MEDS: LACTOBACILLUS ACIDOPHILUS CAP (BACID) PO SCH ×3 (08:36→21:57)
[2020-04-19] MEDS: MAGNESIUM OXIDE 400 MG TAB (MAG-OX) PO SCH (08:36)
[2020-04-19] MEDS: OLANZapine 2.5MG TABLET PO SCH ×2 (08:37→21:57)
[2020-04-19] MEDS: PANTOPRAZOLE 40MG TAB (PROTONIX) PO SCH ×2 (08:37→21:00)
[2020-04-19] MEDS: DULoxetine 30 MG CAP (CYMBALTA) PO SCH ×2 (08:37→21:57)
[2020-04-19] MEDS: FOLIC ACID 1 MG TAB PO SCH (08:37)
[2020-04-19] MEDS: TOLTERODINE TARTRATE 2 MG LA CAP (DETROL LA) PO SCH (08:37)
[2020-04-19] MEDS: ATENOLOL 12.5MG PER 1/2 TABLET PO SCH (08:37)
[2020-04-19] MEDS: AMIODARONE 200 MG TAB (PACERONE) PO SCH ×3 (08:37→21:57)
[2020-04-19] MEDS: FLUTICASONE PROP 0.05% NASAL SPRAY 16 GM (FLONASE) NARES SCH ×2 (08:38→21:58)
[2020-04-19] MEDS: APIXABAN 5 MG TAB (ELIQUIS) PO SCH ×2 (08:38→21:57)
[2020-04-19] MEDS: REMEDY PHYTOPLEX Z-GUARD PASTE 113GM TUBE (FROM STOREROOM PRODUCT) TOP SCH ×3 (08:38→21:58)
[2020-04-19] MEDS: SODIUM CHLORIDE NASAL 0.65% SPRAY BTL (OCEAN) SCH ×3 (08:38→21:57)
[2020-04-19] MEDS: VITAMIN D 1,000 INTERNATIONAL UNITS TABLET PO SCH (08:38)
[2020-04-19] MEDS: DOCUSATE SODIUM 100 MG CAP PO SCH (08:40)
[2020-04-19 08:56] LABS: BLOOD UREA NITROGEN 5 MG/DL (7-18); CALCIUM LEVEL 6.3 MG/DL (8.8-10.2); CARBON DIOXIDE LEVEL 17 MEQ/L (21-32); CHLORIDE LEVEL 125 MEQ/L (98-107); CREATININE FOR GFR 0.63 MG/DL (0.55-1.30); GLOMERULAR FILTRATION RATE > 60.0 (>45); GLUCOSE, FASTING 71 MG/DL (70-100); POTASSIUM SERUM 3.1 MEQ/L (3.5-5.1); SODIUM LEVEL 145 MEQ/L (136-145)
[2020-04-19 14:00] VITALS: BP 120/64
[2020-04-19] MEDS ORDERED: POTASSIUM CHLORIDE 10 MEQ SR TABLET PO ONE (16:00)
[2020-04-19] MEDS: ROSUVASTATIN 10 MG TAB (CRESTOR) PO SCH (21:57)
[2020-04-19] MEDS: LORATADINE 10 MG TAB PO SCH (21:57)
[2020-04-19 22:00] VITALS: BP 128/57
[2020-04-19] MEDS: LevoFLOXacin IV 750 MG in IV 1 EA IV SCH (22:00)
[2020-04-19 23:08] LABS: BLOOD UREA NITROGEN 6 MG/DL (7-18); CALCIUM LEVEL 7.3 MG/DL (8.8-10.2); CARBON DIOXIDE LEVEL 18 MEQ/L (21-32); CHLORIDE LEVEL 115 MEQ/L (98-107); CREATININE FOR GFR 0.88 MG/DL (0.55-1.30); GLOMERULAR FILTRATION RATE > 60.0 (>45); GLUCOSE, FASTING 84 MG/DL (70-100); SODIUM LEVEL 140 MEQ/L (136-145)
[2020-04-20] MEDS: metroNIDAZOLE 500 MG in IV 1 EA IV SCH ×3 (00:44→16:45)
[2020-04-20] MEDS: zolPIDEM TARTRATE 5 MG TAB PO PRN (00:47)
[2020-04-20 06:00] VITALS: BP 121/59
[2020-04-20 06:51] LABS: HEMATOCRIT 28.3 % (36.0-47.0); HEMOGLOBIN 8.7 g/dl (12.0-15.5); MEAN CORPUSCULAR HEMOGLOBIN 29.4 pg (27.0-33.0); MEAN CORPUSCULAR HGB CONC 30.7 g/dl (32.0-36.5); MEAN CORPUSCULAR VOLUME 95.6 fl (80.0-96.0); PLATELET COUNT, AUTOMATED 256 10^3/uL (150-450); RED BLOOD COUNT 2.96 10^6/uL (4.00-5.40); WHITE BLOOD COUNT 9.8 10^3/uL (4.0-10.0)
[2020-04-20 06:56] LABS: BLOOD UREA NITROGEN 5 MG/DL (7-18); CARBON DIOXIDE LEVEL 16 MEQ/L (21-32); CHLORIDE LEVEL 119 MEQ/L (98-107); CREATININE FOR GFR 0.81 MG/DL (0.55-1.30); GLOMERULAR FILTRATION RATE > 60.0 (>45); GLUCOSE, FASTING 80 MG/DL (70-100); POTASSIUM SERUM 4.2 MEQ/L (3.5-5.1); SODIUM LEVEL 144 MEQ/L (136-145)
[2020-04-20] MEDS: REMEDY PHYTOPLEX Z-GUARD PASTE 113GM TUBE (FROM STOREROOM PRODUCT) TOP SCH ×3 (08:07→22:21)
[2020-04-20] MEDS: FLUTICASONE PROP 0.05% NASAL SPRAY 16 GM (FLONASE) NARES SCH ×2 (08:07→22:20)
[2020-04-20] MEDS: SODIUM CHLORIDE NASAL 0.65% SPRAY BTL (OCEAN) SCH ×3 (08:07→22:20)
[2020-04-20 08:15] LABS: MAGNESIUM LEVEL 1.6 MG/DL (1.8-2.4)
[2020-04-20] MEDS: GABAPENTIN 300 MG CAP PO SCH ×3 (08:22→22:19)
[2020-04-20] MEDS: DULoxetine 30 MG CAP (CYMBALTA) PO SCH ×2 (08:22→22:20)
[2020-04-20] MEDS: ATENOLOL 12.5MG PER 1/2 TABLET PO SCH (08:22)
[2020-04-20] MEDS: PANTOPRAZOLE 40MG TAB (PROTONIX) PO SCH ×2 (08:23→22:19)
[2020-04-20] MEDS: OLANZapine 2.5MG TABLET PO SCH ×2 (08:23→22:19)
[2020-04-20] MEDS: VITAMIN D 1,000 INTERNATIONAL UNITS TABLET PO SCH (08:23)
[2020-04-20] MEDS: TOLTERODINE TARTRATE 2 MG LA CAP (DETROL LA) PO SCH (08:23)
[2020-04-20] MEDS: MAGNESIUM OXIDE 400 MG TAB (MAG-OX) PO SCH (08:23)
[2020-04-20] MEDS: FOLIC ACID 1 MG TAB PO SCH (08:23)
[2020-04-20] MEDS: LACTOBACILLUS ACIDOPHILUS CAP (BACID) PO SCH ×3 (08:23→22:19)
[2020-04-20] MEDS: AMIODARONE 200 MG TAB (PACERONE) PO SCH ×3 (08:24→22:20)
[2020-04-20] MEDS: APIXABAN 5 MG TAB (ELIQUIS) PO SCH ×2 (08:24→22:19)
[2020-04-20] MEDS: IPRATROPIUM 0.5MG/ALBUTEROL 2.5MG INH SOL UD 3ML (DUONEB) NEB SCH ×3 (08:41→19:53)
[2020-04-20] MEDS: NS 1,000 ML IV SCH (09:51)
--- NOTE | 2020-04-20 11:58 | IPNPDOC ---
Text Note Date of Service The patient was seen on 04/20/20. NOTE SUBJECTIVE: Patient seen and examined at bedside. No acute overnight events reported. No new medical complaints this morning. OBJECTIVE PHYSICAL EXAMINATION: VITAL SIGNS: Please see below. GENERAL: NAD, resting comfortably in bed, in good spirits HEENT: NC/AT, EOMI CARDIOVASCULAR EXAMINATION: +S1S2, RRR, systolic murmur 3/6 (aortic stenosis ) RESPIRATORY EXAMINATION: no wheezing, rhonci or rales ABDOMINAL EXAMINATION: soft, nt, nd, nbs, wound vac in place LABORATORY DATA, IMAGING STUDIES, MICROBIOLOGY: Please see below. ASSESSMENT AND PLAN: 65 yo female transferred to medical floor from ARU, s/p colon resection secondary to SBO. # SBO s/p subtotal colectomy - follow as per surgery - recs appreciated # PNA - continue levaquin (01/02), flagyl (12/03) as per ID - assistance appreciated # Afib RVR - rate controlled - continue BB, amiodarone - Eliquis for a/c # HTN # Acute hypoxic respiratory failure - resolved #possible lupus/scleroderma - was on MTX - stopped in August 2019 #HLD DISPOSITION: Continue PT/OT. Anticipate ARU on Tuesday. VS,Fishbone, I+O VS, Fishbone, I+O Laboratory Tests 04/20/20 05:50 Vital Signs Date Time Temp Pulse Resp B/P (MAP) Pulse Ox O2 Delivery O2 Flow Rate FiO2 04/20/20 08:22 86 121/59 04/20/20 06:00 97.0 18 97 Room Air I&O- Last 24 Hours up to 6 AM 04/20/20 06:00 Intake Total 2450 ml Output Total 1100 ml Balance 1350 ml JORY HENDERSON MD Apr 20, 2020 11:58
[2020-04-20] MEDS: NORCO, ANEXSIA 5/325MG TABLET (HYDROcodone/ACETAMINOPHEN) PO PRN ×3 (12:05→23:15)
[2020-04-20] MEDS: MAG SULF 1GM/100ML (MAG RUN) 1 GM in IV 1 EA IV SCH ×2 (13:19→15:24)
[2020-04-20 14:00] VITALS: BP 120/60
[2020-04-20 22:00] VITALS: BP 88/53
[2020-04-20 22:15] VITALS: BP 110/70
[2020-04-20] MEDS: ROSUVASTATIN 10 MG TAB (CRESTOR) PO SCH (22:18)
[2020-04-20] MEDS: LORATADINE 10 MG TAB PO SCH (22:19)
[2020-04-20] MEDS: LevoFLOXacin IV 750 MG in IV 1 EA IV SCH (23:13)
[2020-04-21] VITALS (15 sets, daily range): BP systolic 82–115; BP diastolic 42–74
[2020-04-21] MEDS: zolPIDEM TARTRATE 5 MG TAB PO PRN (00:54)
[2020-04-21] MEDS: metroNIDAZOLE 500 MG in IV 1 EA IV SCH ×3 (01:09→16:35)
[2020-04-21] MEDS: NORCO, ANEXSIA 5/325MG TABLET (HYDROcodone/ACETAMINOPHEN) PO PRN ×2 (05:38→16:36)
[2020-04-21] MEDS: IPRATROPIUM 0.5MG/ALBUTEROL 2.5MG INH SOL UD 3ML (DUONEB) NEB SCH ×3 (08:11→20:00)
[2020-04-21] MEDS: LACTOBACILLUS ACIDOPHILUS CAP (BACID) PO SCH ×3 (08:56→20:33)
[2020-04-21] MEDS: VITAMIN D 1,000 INTERNATIONAL UNITS TABLET PO SCH (08:57)
[2020-04-21] MEDS: APIXABAN 5 MG TAB (ELIQUIS) PO SCH ×2 (08:57→20:34)
[2020-04-21] MEDS: GABAPENTIN 300 MG CAP PO SCH ×3 (08:57→20:34)
[2020-04-21] MEDS: DULoxetine 30 MG CAP (CYMBALTA) PO SCH ×2 (08:57→20:33)
[2020-04-21] MEDS: OLANZapine 2.5MG TABLET PO SCH ×2 (08:57→20:34)
[2020-04-21] MEDS: FOLIC ACID 1 MG TAB PO SCH (08:58)
[2020-04-21] MEDS: AMIODARONE 200 MG TAB (PACERONE) PO SCH ×3 (08:58→20:34)
[2020-04-21] MEDS: PANTOPRAZOLE 40MG TAB (PROTONIX) PO SCH ×2 (08:58→20:33)
[2020-04-21] MEDS: MAGNESIUM OXIDE 400 MG TAB (MAG-OX) PO SCH (08:59)
[2020-04-21] MEDS: FLUTICASONE PROP 0.05% NASAL SPRAY 16 GM (FLONASE) NARES SCH ×2 (09:00→20:35)
[2020-04-21] MEDS: ATENOLOL 12.5MG PER 1/2 TABLET PO SCH (09:00)
[2020-04-21 09:02] LABS: HEMATOCRIT 28.5 % (36.0-47.0); HEMOGLOBIN 8.6 g/dl (12.0-15.5); MEAN CORPUSCULAR HEMOGLOBIN 28.7 pg (27.0-33.0); MEAN CORPUSCULAR HGB CONC 30.2 g/dl (32.0-36.5); PLATELET COUNT, AUTOMATED 271 10^3/uL (150-450); WHITE BLOOD COUNT 13.3 10^3/uL (4.0-10.0)
[2020-04-21] MEDS: SODIUM CHLORIDE NASAL 0.65% SPRAY BTL (OCEAN) SCH ×3 (09:05→20:35)
[2020-04-21] MEDS: TOLTERODINE TARTRATE 2 MG LA CAP (DETROL LA) PO SCH (09:23)
[2020-04-21 09:42] LABS: BLOOD UREA NITROGEN 6 MG/DL (7-18); CALCIUM LEVEL 7.4 MG/DL (8.8-10.2); CARBON DIOXIDE LEVEL 19 MEQ/L (21-32); CHLORIDE LEVEL 116 MEQ/L (98-107); CREATININE FOR GFR 0.95 MG/DL (0.55-1.30); GLOMERULAR FILTRATION RATE > 60.0 (>45); GLUCOSE, FASTING 95 MG/DL (70-100); MAGNESIUM LEVEL 2.1 MG/DL (1.8-2.4); SODIUM LEVEL 143 MEQ/L (136-145)
[2020-04-21] MEDS ORDERED: NS 500 ML IV ONE ×2 (10:00→12:00)
[2020-04-21] MEDS: REMEDY PHYTOPLEX Z-GUARD PASTE 113GM TUBE (FROM STOREROOM PRODUCT) TOP SCH ×3 (10:25→20:35)
[2020-04-21] MEDS: ACETAMINOPHEN TAB 650MG DOSE (2X325MG) PO PRN (12:14)
[2020-04-21 12:59] LABS: ALBUMIN 1.8 GM/DL (3.2-5.2); ALT/SGPT 10 U/L (12-78); BILIRUBIN,DIRECT < 0.1 MG/DL (0.0-0.2); BILIRUBIN,TOTAL 0.2 MG/DL (0.2-1.0); TOTAL PROTEIN 4.8 GM/DL (6.4-8.2)
[2020-04-21] MEDS ORDERED: MEROPENEM INJ 1 GM in IV 1 EA IV SCH (13:30)
[2020-04-21] MEDS ORDERED: ISOVUE-370 76% 100ML VIAL As Ordered ONE (13:33)
--- NOTE | 2020-04-21 14:21 | REPVR ---
PROCEDURE INFORMATION: Exam: CT Abdomen And Pelvis With Contrast Exam date and time: 04/21/2020 2:01 PM Age: 65 years old Clinical indication: Abdominal pain; Generalized; Additional info: Hypotension, abdominal pain TECHNIQUE: Imaging protocol: Computed tomography of the abdomen and pelvis with intravenous contrast. Radiation optimization: All CT scans at this facility use at least one of these dose optimization techniques: automated exposure control; mA and/or kV adjustment per patient size (includes targeted exams where dose is matched to clinical indication); or iterative reconstruction. Contrast material: ISOVUE 370; Contrast volume: 100 ml; Contrast route: INTRAVENOUS (IV); COMPARISON: CT ABD PELVIS W/O CONTRAST 03/28/2020 10:35 AM FINDINGS: Lungs: Bilateral posterior pulmonary partial passive atelectasis. Right middle lobe pulmonary subsegmental atelectasis. Pleural space: Moderate bilateral pleural effusions. Heart: Mitral annular calcification is present. Liver: Normal. No mass. Gallbladder and bile ducts: The gallbladder is surgically absent, with metallic clips in the gallbladder fossa. Pancreas: Moderate pancreatic atrophy. Spleen: Normal. No splenomegaly. Adrenals: Normal. No mass. Kidneys and ureters: Normal. No hydronephrosis. Stomach and bowel: Prior abdominal colectomy. Sigmoid colonic Ragini pouch. Right lower quadrant ileostomy. Appendix: No evidence of appendicitis. Intraperitoneal space: Loculated subhepatic fluid collection measuring 7.9 x 4.2 x 7.8 cm, with a peripheral thin wall. Vasculature: Fusiform infrarenal abdominal aortic ectasia measuring 2.8 cm, stable. No evidence of rupture/leakage. The iliac vasculature shows marked bilateral atherosclerotic calcifications without evidence of aneurysm. Left pelvic phleboliths. Atherosclerotic coronary calcifications are noted involving the left main and LAD coronary arteries. Lymph nodes: Right external iliac lymph node measuring 7 mm short axis. Bladder: The urinary bladder contains a small amount of gas. Reproductive: The uterus is status post hysterectomy. The ovaries are not identified. Bones/joints: Angular kyphosis of the sacrococcygeal junction consistent with remote injury. Soft tissues: Moderate anasarca. IMPRESSION: 1. Prior cholecystectomy. 2. Loculated subhepatic fluid. Differential diagnosis could include abscess or benign postsurgical fluid collection. Clinical correlation is recommended. 3. Prior abdominal colectomy. 4. Sigmoid colonic Ragini pouch. 5. Right lower quadrant ileostomy. 6. The urinary bladder contains a small amount of gas. Recommend clinical confirmation of recent bladder catheterization. 7. Prior hysterectomy. 8. Moderate bilateral pleural effusions. 9. Coronary atherosclerosis. Electronically signed by: Juan Luis Gordillo On 04/21/2020 14:22:03 PM
--- NOTE | 2020-04-21 18:55 | IPNPDOC ---
Text Note Date of Service The patient was seen on 04/21/20. NOTE SUBJECTIVE: Episode of hypotension last night with lightheadedness and genera lized weakness this AM. Initially normotensive but was again found to be hypotensive on 0900 vitals. Otherwise denies fevers, chills, chest pain, SOB, nausea, vomiting, or abdominal pain. Complaining of LE edema primarily. Patient seen and examined at bedside. No acute overnight events reported. No new medical complaints this morning. OBJECTIVE PHYSICAL EXAMINATION: VITAL SIGNS: Please see below. GENERAL: Patient is lying comfortably in bed in no acute distress HEENT: NC,AT, EOMI, no scleral icterus. Dry mucous membranes, no pharyngeal erythema. CV: +S1S2, RRR, systolic murmur appreciated 3/6 (aortic stenosis ) Resp: CTAB with full breath sounds, no wheezes, crackles, or rhonchi appreciated on exam. Abdomen: Bowel sounds diminished, but present, abdomen is obese, soft, generalized tenderness to palpation, non-distended, mild generalized guarding present throughout abdomen, no rebound tenderness. Wound vac in place. Ostomy in place. LABORATORY DATA, IMAGING STUDIES, MICROBIOLOGY: Please see below. ASSESSMENT AND PLAN: 65 yo female transferred to medical floor from ARU, s/p c olon resection secondary to SBO. #. Hypotension. -Given LE edema, will be judicious with fluids and give 500ml NS boluses to see how she responds as she has already had 3 liters of intake on 04/20 and is net positive in the past 24 hours. - No URI or dysuria symptoms, but some abd pain, will obtain CT abd/pelvis to r/o abscess. If abscess is present will have radiology drain in AM using US. - Addendum: hypotension persisted throughout the day despite fluids, consulted Dr. Obrien with ICU for central line placement. Patient's blood pressure correct during elevator ride, will continue to monitor in ICU as patient has hx of hypotension. Dr. Obrien to help with line placement should pressors become necessary. Continue with broad spectrum abx (levaquin and flagyl) # SBO s/p subtotal colectomy - follow as per surgery - recs appreciated # PNA - continue levaquin (01/02), flagyl (12/03) as per ID - assistance appreciated # Afib RVR - rate controlled - continue BB, amiodarone - Eliquis for a/c # HTN - Hold home meds # Acute hypoxic respiratory failure - resolved #possible lupus/scleroderma - was on MTX - stopped in August 2019 #HLD -Continue home meds DISPOSITION: Pending clinical improvement. VS,Fishbone, I+O VS, Fishbone, I+O Laboratory Tests 04/21/20 08:24 Vital Signs Date Time Temp Pulse Resp B/P (MAP) Pulse Ox O2 Delivery O2 Flow Rate FiO2 04/21/20 17:21 77 104/55 (71) 95 Room Air 04/21/20 17:06 17 04/21/20 16:35 98.2 I&O- Last 24 Hours up to 6 AM 04/21/20 06:00 Intake Total 3290 ml Output Total 1300 ml Balance 1990 ml GME ATTESTATION GME ATTESTATION My faculty preceptor for this patient encounter was physically present during the encounter and was fully available. All aspects of the patient interview, examination, medical decision making process, and medical care plan development were reviewed and approved by the faculty preceptor. The faculty preceptor is aware and concurs with the plan as stated in the body of this note and will attest to such by his/her cosignature. ATTENDING NOTE I, Eboni Arriola, have independently examined this patient and performed my own physical exam, as well as reviewed the documentation and edited where necessary. I have discussed in detail with the resident / student the findings and plan of treatment as documented by the resident / student and edited their note. I agree with their findings and treatment plan and have edited their documentation. I will continue to follow the patient during this hospital stay. - Will hold anticoagulation (Eliquis) for US guided drainage of abscess on - Will consider downgrade from ICU ZACKARY ROTHMAN DO Apr 21, 2020 18:55 EBONI ARRIOLA MD Apr 22, 2020 14:21
[2020-04-21] MEDS: ROSUVASTATIN 10 MG TAB (CRESTOR) PO SCH (20:32)
[2020-04-21] MEDS: LORATADINE 10 MG TAB PO SCH (20:33)
[2020-04-21] MEDS ORDERED: SODIUM CHLORIDE 0.9% 1000ML IV ONE (21:15)
[2020-04-21] MEDS ORDERED: LR 1,000 ML IV ONE (22:15)
[2020-04-21] MEDS: LevoFLOXacin IV 750 MG in IV 1 EA IV SCH (23:21)
[2020-04-22] VITALS (22 sets, daily range): BP systolic 97–146; BP diastolic 55–74
[2020-04-22] MEDS: metroNIDAZOLE 500 MG in IV 1 EA IV SCH ×3 (00:57→16:29)
[2020-04-22] MEDS ORDERED: LR 500 ML IV ONE (01:30)
[2020-04-22 05:43] LABS: HEMATOCRIT 28.7 % (36.0-47.0); HEMOGLOBIN 8.9 g/dl (12.0-15.5); MEAN CORPUSCULAR HEMOGLOBIN 29.5 pg (27.0-33.0); PLATELET COUNT, AUTOMATED 235 10^3/uL (150-450); RED BLOOD COUNT 3.02 10^6/uL (4.00-5.40); WHITE BLOOD COUNT 10.8 10^3/uL (4.0-10.0)
[2020-04-22 06:31] LABS: ALBUMIN 1.6 GM/DL (3.2-5.2); ALT/SGPT 11 U/L (12-78); BILIRUBIN,TOTAL 0.2 MG/DL (0.2-1.0); BLOOD UREA NITROGEN 4 MG/DL (7-18); CALCIUM LEVEL 7.4 MG/DL (8.8-10.2); CARBON DIOXIDE LEVEL 15 MEQ/L (21-32); CHLORIDE LEVEL 122 MEQ/L (98-107); CREATININE FOR GFR 0.92 MG/DL (0.55-1.30); GLOMERULAR FILTRATION RATE > 60.0 (>45); GLUCOSE, FASTING 93 MG/DL (70-100); POTASSIUM SERUM 4.1 MEQ/L (3.5-5.1); SODIUM LEVEL 145 MEQ/L (136-145); TOTAL PROTEIN 5.2 GM/DL (6.4-8.2)
[2020-04-22] MEDS: IPRATROPIUM 0.5MG/ALBUTEROL 2.5MG INH SOL UD 3ML (DUONEB) NEB SCH ×3 (07:04→19:30)
[2020-04-22] MEDS: NORCO, ANEXSIA 5/325MG TABLET (HYDROcodone/ACETAMINOPHEN) PO PRN ×4 (08:20→21:40)
[2020-04-22] MEDS: APIXABAN 5 MG TAB (ELIQUIS) PO SCH (09:00)
[2020-04-22] MEDS: ATENOLOL 12.5MG PER 1/2 TABLET PO SCH (09:00)
[2020-04-22] MEDS: FOLIC ACID 1 MG TAB PO SCH (09:28)
[2020-04-22] MEDS: VITAMIN D 1,000 INTERNATIONAL UNITS TABLET PO SCH (09:28)
[2020-04-22] MEDS: DULoxetine 30 MG CAP (CYMBALTA) PO SCH ×2 (09:28→20:22)
[2020-04-22] MEDS: FLUTICASONE PROP 0.05% NASAL SPRAY 16 GM (FLONASE) NARES SCH ×2 (09:29→20:23)
[2020-04-22] MEDS: GABAPENTIN 300 MG CAP PO SCH ×3 (09:29→20:21)
[2020-04-22] MEDS: SODIUM CHLORIDE NASAL 0.65% SPRAY BTL (OCEAN) SCH ×3 (09:29→20:22)
[2020-04-22] MEDS: PANTOPRAZOLE 40MG TAB (PROTONIX) PO SCH ×2 (09:29→20:21)
[2020-04-22] MEDS: LACTOBACILLUS ACIDOPHILUS CAP (BACID) PO SCH ×3 (09:29→20:20)
[2020-04-22] MEDS: OLANZapine 2.5MG TABLET PO SCH ×2 (09:29→20:20)
[2020-04-22] MEDS: MAGNESIUM OXIDE 400 MG TAB (MAG-OX) PO SCH (09:29)
[2020-04-22] MEDS: AMIODARONE 200 MG TAB (PACERONE) PO SCH ×3 (09:29→20:21)
[2020-04-22] MEDS: TOLTERODINE TARTRATE 2 MG LA CAP (DETROL LA) PO SCH (09:29)
[2020-04-22] MEDS: REMEDY PHYTOPLEX Z-GUARD PASTE 113GM TUBE (FROM STOREROOM PRODUCT) TOP SCH ×3 (09:31→20:23)
--- NOTE | 2020-04-22 14:46 | REPVR ---
PROCEDURE INFORMATION: Exam: US Duplex Left Upper Extremity Veins, Limited Exam date and time: 04/22/2020 2:19 PM Age: 65 years old Clinical indication: Pain; Swelling (edema) of limb; Upper extremity, left; Arm, upper; Additional info: Swelling/pain in lue TECHNIQUE: Imaging protocol: Real-time Duplex ultrasound of the Left Upper Extremity with 2-D rawls scale, color Doppler flow and spectral waveform analysis with image documentation. Limited exam focused on the left upper extremity veins. COMPARISON: No relevant prior studies available. FINDINGS: Left deep veins: Unremarkable. Axillary and brachial veins are patent throughout without thrombus. Normal Doppler waveforms. Normal compressibility and/or augmentation response. Visualized internal jugular and subclavian veins are patent. Left superficial veins: Unremarkable. Visualized cephalic and basilic veins are patent without thrombus. Soft tissues: There is soft tissue swelling. IMPRESSION: No evidence of deep vein thrombosis. Electronically signed by: Farzad Payton On 04/22/2020 14:46:43 PM
--- NOTE | 2020-04-22 18:38 | IPNPDOC ---
Text Note Date of Service The patient was seen on 04/22/20. NOTE SUBJECTIVE: Mild hypotension overnight requiring 2 total liters of fluid bolu ses, but patient asymptomatic and very responsive to fluids now in AM. She states she feels "lousy" today, but cannot articulate why and just feels generally weak. She denies any fevers, chills, chest pain, SOB, nausea, or vomiting. She admits to generalized abdominal pain still. OBJECTIVE PHYSICAL EXAMINATION: VITAL SIGNS: Please see below. GENERAL: Patient is lying comfortably in bed in no acute distress HEENT: NC,AT, EOMI, no scleral icterus. Dry mucous membranes, no pharyngeal erythema. CV: +S1S2, RRR, 3/6 systolic murmur on exam. Resp: CTAB with full breath sounds, no wheezes, crackles, or rhonchi appreciated on exam. Abdomen: Bowel sounds diminished, but present, abdomen is obese, soft, generalized tenderness to palpation, but more focal tenderness in RUQ, non- distended, no guarding, no rebound tenderness. Wound vac in place. Ostomy in place. C/D/I. LABORATORY DATA, IMAGING STUDIES, MICROBIOLOGY: Please see below. ASSESSMENT AND PLAN: 65 yo female s/p colon resection secondary to undifferentiated ischemia #. Subhepatic fluid collection -Plans for US guided drainage on Tuesday, holding patient's eliquis until then. - Will continue patient on broad spectrum abx pending results of fluid collection (flagyl and Levaquin). #. Generalized weakness -Hypotension seems to have resolved but given her hypoalbuminemia it seems likely she will 3rd space again. -Surgery recommending initiating TPN today given poor nutrition status. -PT/OT reconsulted to work with her today as well. #. Hypotension -Appears to have resolved and she is now much more fluid responsive. #. Poor peripheral access -Patient has hx of LUE dvt, so unable to obtain access in that arm, ordering LUE US to see if it is still present and a viable option for peripheral access. -If unable to obtain access, will put in order for midline. # SBO s/p subtotal colectomy - follow as per surgery - recs appreciated # PNA - Resolved. Patient previously on Zosyn without issue. ID recommending Meropenem in the event she spikes a fever. # Afib RVR - rate controlled - continue BB, amiodarone - Eliquis for a/c # HTN - Continue holding home meds # Acute hypoxic respiratory failure - resolved #possible lupus/scleroderma - was on MTX - stopped in August 2019 #HLD -Continue home meds DISPOSITION: Pending clinical improvement. VS,Fishbone, I+O VS, Fishbone, I+O Laboratory Tests 04/22/20 05:30 Vital Signs Date Time Temp Pulse Resp B/P (MAP) Pulse Ox O2 Delivery O2 Flow Rate FiO2 04/22/20 16:18 15 04/22/20 16:00 97.6 87 146/74 (98) 96 Room Air I&O- Last 24 Hours up to 6 AM 04/22/20 05:59 Intake Total 2810 ml Output Total 376 ml Balance 2434 ml GME ATTESTATION GME ATTESTATION My faculty preceptor for this patient encounter was physically present during the encounter and was fully available. All aspects of the patient interview, examination, medical decision making process, and medical care plan development were reviewed and approved by the faculty preceptor. The faculty preceptor is aware and concurs with the plan as stated in the body of this note and will attest to such by his/her cosignature. ATTENDING NOTE I, Eboni Arriola, have independently examined this patient and performed my own physical exam, as well as reviewed the documentation and edited where necessary. I have discussed in detail with the resident / student the findings and plan of treatment as documented by the resident / student and edited their note. I agree with their findings and treatment plan and have edited their documentation. I will continue to follow the patient during this hospital stay. ZACKARY ROTHMAN DO Apr 22, 2020 18:38 EBONI ARRIOLA MD May 11, 2020 16:32
[2020-04-22] MEDS: ROSUVASTATIN 10 MG TAB (CRESTOR) PO SCH (20:21)
[2020-04-22] MEDS: LORATADINE 10 MG TAB PO SCH (20:21)
[2020-04-22] MEDS: LevoFLOXacin IV 750 MG in IV 1 EA IV SCH (22:47)
[2020-04-23] MEDS: metroNIDAZOLE 500 MG in IV 1 EA IV SCH ×3 (00:26→17:08)
[2020-04-23 01:30] VITALS: BP 118/63
[2020-04-23] MEDS: NORCO, ANEXSIA 5/325MG TABLET (HYDROcodone/ACETAMINOPHEN) PO PRN ×4 (02:51→18:07)
[2020-04-23 06:00] VITALS: BP 146/83
[2020-04-23] MEDS: IPRATROPIUM 0.5MG/ALBUTEROL 2.5MG INH SOL UD 3ML (DUONEB) NEB SCH ×3 (08:12→19:36)
[2020-04-23] MEDS: OMEPRAZOLE 20 MG CAP PO SCH ×2 (09:00→09:08)
[2020-04-23] MEDS: VITAMIN D 1,000 INTERNATIONAL UNITS TABLET PO SCH (09:06)
[2020-04-23] MEDS: FOLIC ACID 1 MG TAB PO SCH (09:06)
[2020-04-23] MEDS: TOLTERODINE TARTRATE 2 MG LA CAP (DETROL LA) PO SCH (09:06)
[2020-04-23] MEDS: OLANZapine 2.5MG TABLET PO SCH ×2 (09:06→22:17)
[2020-04-23] MEDS: MAGNESIUM OXIDE 400 MG TAB (MAG-OX) PO SCH (09:07)
[2020-04-23] MEDS: ATENOLOL 12.5MG PER 1/2 TABLET PO SCH (09:07)
[2020-04-23] MEDS: LACTOBACILLUS ACIDOPHILUS CAP (BACID) PO SCH ×3 (09:07→22:16)
[2020-04-23] MEDS: AMIODARONE 200 MG TAB (PACERONE) PO SCH ×3 (09:07→22:16)
[2020-04-23] MEDS: DULoxetine 30 MG CAP (CYMBALTA) PO SCH ×2 (09:08→22:17)
[2020-04-23] MEDS: GABAPENTIN 300 MG CAP PO SCH ×3 (09:08→22:17)
[2020-04-23] MEDS: PANTOPRAZOLE 40MG TAB (PROTONIX) PO SCH (09:08)
[2020-04-23 09:38] LABS: BASO # 0.1 10^3/uL (0.0-0.2); BASO % 0.7 % (0.0-1.0); EOS # 0.2 10^3/uL (0.0-0.5); EOS % 2.3 % (0.0-3.0); HEMATOCRIT 30.6 % (36.0-47.0); HEMOGLOBIN 9.4 g/dl (12.0-15.5); LYMPH # 2.5 10^3/uL (1.5-5.0); LYMPH % 24.5 % (24.0-44.0); MEAN CORPUSCULAR HEMOGLOBIN 28.7 pg (27.0-33.0); MEAN CORPUSCULAR HGB CONC 30.7 g/dl (32.0-36.5); MEAN CORPUSCULAR VOLUME 93.6 fl (80.0-96.0); MONO # 0.7 10^3/uL (0.0-0.8); MONO % 6.4 % (0.0-5.0); NEUTROPHILS # 6.4 10^3/uL (1.5-8.5); NEUTROPHILS % 62.8 % (36.0-66.0); PLATELET COUNT, AUTOMATED 244 10^3/uL (150-450); RED BLOOD COUNT 3.27 10^6/uL (4.00-5.40); WHITE BLOOD COUNT 10.2 10^3/uL (4.0-10.0)
[2020-04-23 10:12] LABS: ALBUMIN 1.8 GM/DL (3.2-5.2); ALT/SGPT 9 U/L (12-78); BILIRUBIN,TOTAL 0.2 MG/DL (0.2-1.0); BLOOD UREA NITROGEN 4 MG/DL (7-18); CALCIUM LEVEL 7.6 MG/DL (8.8-10.2); CARBON DIOXIDE LEVEL 19 MEQ/L (21-32); CHLORIDE LEVEL 116 MEQ/L (98-107); CREATININE FOR GFR 0.86 MG/DL (0.55-1.30); GLOMERULAR FILTRATION RATE > 60.0 (>45); GLUCOSE, FASTING 85 MG/DL (70-100); MAGNESIUM LEVEL 1.7 MG/DL (1.8-2.4); POTASSIUM SERUM 4.2 MEQ/L (3.5-5.1); SODIUM LEVEL 143 MEQ/L (136-145); TOTAL PROTEIN 4.9 GM/DL (6.4-8.2)
[2020-04-23] MEDS: FLUTICASONE PROP 0.05% NASAL SPRAY 16 GM (FLONASE) NARES SCH ×2 (10:14→22:18)
[2020-04-23] MEDS: SODIUM CHLORIDE NASAL 0.65% SPRAY BTL (OCEAN) SCH ×3 (10:14→22:18)
[2020-04-23] MEDS ORDERED: PERCOCET 5MG/325MG TAB PO ONE (10:30)
[2020-04-23] MEDS: REMEDY PHYTOPLEX Z-GUARD PASTE 113GM TUBE (FROM STOREROOM PRODUCT) TOP SCH ×3 (10:45→21:00)
[2020-04-23] MEDS: NEXIUM 40 MG PO SCH ×2 (11:16→22:17)
[2020-04-23] MEDS ORDERED: LIDOCAINE 1% MDV 20ML VIAL ONE (14:00)
[2020-04-23] MEDS ORDERED: MAG SULF 1GM/100ML (MAG RUN) 1 GM in IV 1 EA IV ONE (14:15)
[2020-04-23 15:56] VITALS: BP 137/86
[2020-04-23] MEDS ORDERED: SODIUM CHLORIDE 0.9% INJ 10 ML SYR IV PRN (17:15)
[2020-04-23] MEDS: HumaLOG INSULIN (NovoLOG) PER UNIT SC SCH (18:00)
[2020-04-23] MEDS ORDERED: AMINO AC/ELECTROLYTE/DEX/CALC 2,000 ML IV SCH (18:00)
[2020-04-23] MEDS ORDERED: FAT EMULSION IV 20% 500 ML IV SCH (18:00)
[2020-04-23] MEDS: SODIUM CHLORIDE 0.9% INJ 10 ML SYR IV SCH (18:08)
--- NOTE | 2020-04-23 21:41 | IPNPDOC ---
Text Note Date of Service The patient was seen on 04/23/20. NOTE SUBJECTIVE: No acute events overnight. Patient states she isn't feeling great but has no specific complaints including fevers, chills, chest pain, SOB, nausea, or vomiting. She admits to generalized abdominal pain still. She continues to work with physical therapy. OBJECTIVE PHYSICAL EXAMINATION: VITAL SIGNS: Please see below. GENERAL: Patient is lying comfortably in bed in no acute distress HEENT: NC,AT, EOMI, no scleral icterus. Dry mucous membranes, no pharyngeal linda thema. CV: +S1S2, RRR, 3/6 systolic murmur on exam. Resp: CTAB with full breath sounds, no wheezes, crackles, or rhonchi appreciated on exam. Abdomen: Bowel sounds diminished, but present, abdomen is obese, soft, generalized tenderness to palpation, but more focal tenderness in RUQ, non-distended, no guarding, no rebound tenderness. Wound vac in place. Ostomy in place. C/D/I. LABORATORY DATA, IMAGING STUDIES, MICROBIOLOGY: Please see below. ASSESSMENT AND PLAN: 65 yo female s/p colon resection secondary to undifferentiated ischemia who was sent to ARU but returned to medical management because she was hypotensive in afib with rvr which has since been corrected in the ICU. She was then transferred to med/surg for further care with surgery wanting her on the medical floor for monitoring, however she again became hypotensive and unresponsive to fluids so she was transferred back to the icu with resolution of her hypotension and a subhepatic fluid collection was found concerning for possible abscess. She was transferred back to the medical floor where she was placed on tpn for poor nutrition and awaits subhepatic drainage of fluid collection in light of temporary discontinuation of her anticoagulants for the procedure. #. Subhepatic fluid collection -Plans for US guided drainage tomorrow, continue holding eliquis, ok to resume after procedure. - Will continue patient on broad spectrum abx pending results of fluid collection (flagyl and Levaquin). #. Poor nutrition status -S/p picc line, initiating tpn today. #. Generalized weakness -PT/OT reconsulted #. Hypotension -Resolved #. Poor peripheral access -LUE negative for DVT but poor access, picc line placed. # SBO s/p subtotal colectomy - Wound vac changes MWF # Atrial fibrillation. - rate controlled - continue BB, amiodarone - Eliquis for a/c # HTN - Continue holding home meds # Acute hypoxic respiratory failure - resolved #possible lupus/scleroderma - was on MTX - stopped in August 2019 #HLD -Continue home meds DISPOSITION: Pending clinical improvement. VS,Fishbone, I+O VS, Fishbone, I+O Laboratory Tests 04/23/20 08:58 Vital Signs Date Time Temp Pulse Resp B/P (MAP) Pulse Ox O2 Delivery O2 Flow Rate FiO2 04/23/20 18:37 18 04/23/20 15:56 98.0 78 137/86 (103) 98 04/23/20 14:28 Room Air I&O- Last 24 Hours up to 6 AM 04/23/20 06:00 Intake Total 990 ml Output Total 2805 ml Balance -1815 ml GME ATTESTATION GME ATTESTATION My faculty preceptor for this patient encounter was physically present during the encounter and was fully available. All aspects of the patient interview, examination, medical decision making process, and medical care plan development were reviewed and approved by the faculty preceptor. The faculty preceptor is aware and concurs with the plan as stated in the body of this note and will attest to such by his/her cosignature. ATTENDING NOTE I, Eboni Arriola, have independently examined this patient and performed my own physical exam, as well as reviewed the documentation and edited where necessary. I have discussed in detail with the resident / student the findings and plan of treatment as documented by the resident / student and edited their note. I agree with their findings and treatment plan and have edited their documentation. I will continue to follow the patient during this hospital stay. ZACKARY ROTHMAN DO Apr 23, 2020 21:41 EBONI ARRIOLA MD Apr 24, 2020 12:58
[2020-04-23 22:00] VITALS: BP 131/77
[2020-04-23] MEDS: zolPIDEM TARTRATE 5 MG TAB PO PRN (22:16)
[2020-04-23] MEDS: ROSUVASTATIN 10 MG TAB (CRESTOR) PO SCH (22:16)
[2020-04-23] MEDS: LORATADINE 10 MG TAB PO SCH (22:17)
[2020-04-23] MEDS: LevoFLOXacin IV 750 MG in IV 1 EA IV SCH (23:04)
[2020-04-24] MEDS: metroNIDAZOLE 500 MG in IV 1 EA IV SCH ×3 (00:46→15:39)
[2020-04-24] MEDS: HumaLOG INSULIN (NovoLOG) PER UNIT SC SCH ×5 (01:12→23:51)
[2020-04-24 06:00] VITALS: BP 151/83
[2020-04-24] MEDS: SODIUM CHLORIDE 0.9% INJ 10 ML SYR IV SCH ×2 (06:00→16:52)
[2020-04-24] MEDS: IPRATROPIUM 0.5MG/ALBUTEROL 2.5MG INH SOL UD 3ML (DUONEB) NEB SCH ×3 (06:33→18:40)
[2020-04-24] MEDS: ONDANSETRON 4MG/2ML VIAL IV PRN (06:40)
[2020-04-24] MEDS: REMEDY PHYTOPLEX Z-GUARD PASTE 113GM TUBE (FROM STOREROOM PRODUCT) TOP SCH ×3 (09:00→21:05)
[2020-04-24] MEDS ORDERED: SODIUM BICARBONATE 8.4% INJ 50MEQ 50 ML VIAL As Ordered ONE (09:11)
[2020-04-24] MEDS ORDERED: LIDOCAINE 1% MDV 20ML VIAL As Ordered ONE (09:11)
[2020-04-24 10:50] VITALS: BP 164/74
--- NOTE | 2020-04-24 11:09 | IPNPDOC ---
Text Note Date of Service The patient was seen on 04/24/20. NOTE SUBJECTIVE: No acute events overnight. Patient states she still has some abdominal pain. Denies fevers, chills, chest pain, SOB, nausea, or vomiting. She continues to work with physical therapy. OBJECTIVE PHYSICAL EXAMINATION: VITAL SIGNS: Please see below. GENERAL: Patient is lying comfortably in bed in no acute distress HEENT: NC,AT, EOMI, no scleral icterus. Dry mucous membranes, no pharyngeal erythema. CV: +S1S2, RRR, 3/6 systolic murmur on exam. Resp: CTAB with full breath sounds, no wheezes, crackles, or rhonchi appreciated on exam. Abdomen: Bowel sounds diminished, but present, abdomen is obese, soft, generalized tenderness to palpation, but more focal tenderness in RUQ, non- distended, no guarding, no rebound tenderness. Wound vac in place. Ostomy in place. C/D/I. Ext: 1+ pitting edema in bilateral LE. LABORATORY DATA, IMAGING STUDIES, MICROBIOLOGY: Please see below. ASSESSMENT AND PLAN: 65 yo female s/p colon resection secondary to undifferentiated ischemia who was sent to ARU but returned to medical management because she was hypotensive in afib with rvr which has since been corrected in the ICU. She was then transferred to med/surg for further care with surgery wanting her on the medical floor for monitoring, however she again became hypotensive and unresponsive to fluids so she was transferred back to the icu with resolution of her hypotension and a subhepatic fluid collection was found concerning for possible abscess. She was transferred back to the medical floor where she was placed on tpn for poor nutrition and awaits subhepatic drainage of fluid collection in light of temporary discontinuation of her anticoagulants for the procedure. #. Subhepatic fluid collection -US guided drainage today, resuming eliquis after procedure. - Will continue patient on broad spectrum abx pending results of fluid collection (flagyl and Levaquin). Procalcitonin ordered. #. Poor nutrition status -TPN #. Peripheral edema -Blood pressure has been consistently stable, giving one time dose of IV lasix. #. Generalized weakness -PT/OT consulted #. Poor peripheral access -LUE negative for DVT but poor access, picc line placed. # SBO s/p subtotal colectomy - Wound vac changes MWF # Atrial fibrillation. - rate controlled - continue BB, amiodarone - Eliquis for a/c # HTN - Continue holding home meds #possible lupus/scleroderma - was on MTX - stopped in August 2019 #HLD -Continue home meds DISPOSITION: Pending clinical improvement. VS,Fishbone, I+O VS, Fishbone, I+O Vital Signs Date Time Temp Pulse Resp B/P (MAP) Pulse Ox O2 Delivery O2 Flow Rate FiO2 04/24/20 10:25 89 18 94 Room Air 04/24/20 09:47 99.1 04/24/20 06:00 151/83 (105) I&O- Last 24 Hours up to 6 AM0 04/24/20 06:00 Intake Total 870 ml Output Total 2950 ml Balance -2080 ml GME ATTESTATION GME ATTESTATION My faculty preceptor for this patient encounter was physically present during the encounter and was fully available. All aspects of the patient interview, examination, medical decision making process, and medical care plan development were reviewed and approved by the faculty preceptor. The faculty preceptor is aware and concurs with the plan as stated in the body of this note and will attest to such by his/her cosignature. ATTENDING NOTE I, Eboni Arriola, have independently examined this patient and performed my own physical exam, as well as reviewed the documentation and edited where necessary. I have discussed in detail with the resident / student the findings and plan of treatment as documented by the resident / student and edited their note. I agree with their findings and treatment plan and have edited their documentation. I will continue to follow the patient during this hospital stay. - Discussed case in depth with patient and - Will get PCT today and discontinue antibiotics if negative ZACKARY ROTHMAN DO Apr 24, 2020 11:09 EBONI ARRIOLA MD Apr 24, 2020 20:17
[2020-04-24] MEDS: NORCO, ANEXSIA 5/325MG TABLET (HYDROcodone/ACETAMINOPHEN) PO PRN ×3 (11:25→21:04)
[2020-04-24] MEDS: ATENOLOL 12.5MG PER 1/2 TABLET PO SCH (11:33)
[2020-04-24] MEDS: TOLTERODINE TARTRATE 2 MG LA CAP (DETROL LA) PO SCH (11:34)
[2020-04-24] MEDS: DULoxetine 30 MG CAP (CYMBALTA) PO SCH ×2 (11:34→21:04)
[2020-04-24] MEDS: VITAMIN D 1,000 INTERNATIONAL UNITS TABLET PO SCH (11:35)
[2020-04-24] MEDS: LACTOBACILLUS ACIDOPHILUS CAP (BACID) PO SCH ×3 (11:35→21:02)
[2020-04-24] MEDS: GABAPENTIN 300 MG CAP PO SCH ×3 (11:36→21:02)
[2020-04-24] MEDS: MAGNESIUM OXIDE 400 MG TAB (MAG-OX) PO SCH (11:36)
[2020-04-24] MEDS: FOLIC ACID 1 MG TAB PO SCH (11:36)
[2020-04-24] MEDS: OLANZapine 2.5MG TABLET PO SCH ×2 (11:37→21:02)
[2020-04-24] MEDS: AMIODARONE 200 MG TAB (PACERONE) PO SCH ×3 (11:37→21:02)
[2020-04-24] MEDS: FLUTICASONE PROP 0.05% NASAL SPRAY 16 GM (FLONASE) NARES SCH ×2 (11:38→21:04)
[2020-04-24] MEDS: NEXIUM 40 MG PO SCH ×2 (11:38→21:04)
[2020-04-24] MEDS: SODIUM CHLORIDE NASAL 0.65% SPRAY BTL (OCEAN) SCH ×3 (11:39→21:04)
[2020-04-24 12:50] LABS: HEMATOCRIT 31.1 % (36.0-47.0); HEMOGLOBIN 9.6 g/dl (12.0-15.5); MEAN CORPUSCULAR HEMOGLOBIN 28.8 pg (27.0-33.0); MEAN CORPUSCULAR HGB CONC 30.9 g/dl (32.0-36.5); MEAN CORPUSCULAR VOLUME 93.4 fl (80.0-96.0); PLATELET COUNT, AUTOMATED 248 10^3/uL (150-450); RED BLOOD COUNT 3.33 10^6/uL (4.00-5.40); WHITE BLOOD COUNT 10.4 10^3/uL (4.0-10.0)
[2020-04-24 13:11] LABS: ALBUMIN 1.8 GM/DL (3.2-5.2); ALT/SGPT 12 U/L (12-78); BILIRUBIN,TOTAL 0.2 MG/DL (0.2-1.0); BLOOD UREA NITROGEN 8 MG/DL (7-18); CALCIUM LEVEL 7.8 MG/DL (8.8-10.2); CARBON DIOXIDE LEVEL 23 MEQ/L (21-32); CHLORIDE LEVEL 113 MEQ/L (98-107); CREATININE FOR GFR 0.76 MG/DL (0.55-1.30); GLOMERULAR FILTRATION RATE > 60.0 (>45); GLUCOSE, FASTING 118 MG/DL (70-100); MAGNESIUM LEVEL 1.8 MG/DL (1.8-2.4); SODIUM LEVEL 143 MEQ/L (136-145); TOTAL PROTEIN 5.5 GM/DL (6.4-8.2)
[2020-04-24] MEDS ORDERED: FUROSEMIDE 20MG/2ML VIAL (J1940) IV ONE (13:30)
[2020-04-24 13:38] LABS: SOURCE, BODY FLUID GLUCOSE ASCITES; SOURCE, BODY FLUID TOT PROTEIN ASCITES; TOTAL PROTEIN, BODY FLUID 3.8 G/DL (NOT ESTABLISHED)
[2020-04-24 14:00] VITALS: BP 133/70
[2020-04-24 14:00] LABS: SOURCE, BODY FLUID ASCITES
[2020-04-24 14:02] LABS: APPEARANCE, BODY FLUID TURBID (CLEAR); ASCITES FL COLOR RED (COLORLESS)
--- NOTE | 2020-04-24 14:46 | HPEPDOC ---
[facility] Medical History & Physical History and Physical CHIEF COMPLAINT: HISTORY OF PRESENT ILLNESS: PAST MEDICAL HISTORY: 1. . 2. . 3. . PAST SURGICAL HISTORY: 1. . 2. . 3. . SOCIAL HISTORY: Marital status: . Resides in: Children: Employment: Tobacco use: ETOH: Illicit drug use: Tattoos done unprofessionally: . IV drug use: Other relevant social factors: FAMILY HISTORY: Father: Mother: Siblings: Children: Hereditary Diseases: Unexpected deaths due to medical reasons: ALLERGIES: Please see below. REVIEW OF SYSTEMS: CONSTITUTIONAL: . HEENT: . CARDIOVASCULAR: . RESPIRATORY: . GASTROINTESTINAL: . GENITOURINARY: . SKIN: . MUSCULOSKELETAL: . NEUROLOGICAL: . PSYCHIATRIC: . ENDOCRINE: . HEMATOLOGIC/LYMPHATIC: . HOME MEDICATIONS: Please see below. PHYSICAL EXAMINATION: VITAL SIGNS: Temperature , pulse , respiratory rate , blood pressure , pulse oximetry % on room air. GENERAL APPEARANCE: . HEENT: . CARDIOVASCULAR: . LUNGS: . ABDOMEN: . MUSCULOSKELETAL: . EXTREMITIES: . NEUROLOGICAL: . PSYCHIATRIC: . LABORATORY DATA: See below. IMAGING: MICROBIOLOGY: Please see below. ASSESSMENT: . . PLAN: 1. . Vital Signs Vital Signs Date Time Temp Pulse Resp B/P (MAP) Pulse Ox O2 Delivery O2 Flow Rate FiO2 04/24/20 11:33 98 164/74 04/24/20 11:25 16 04/24/20 10:50 99.1 94 Room Air Laboratory Data Labs 24H Laboratory Tests 2 04/24/20 10:35: 04/24/20 12:15: Nucleated Red Blood Cells % (auto) 0.0, Anion Gap 7L, Glomerular Filtration Rate > 60.0, Calcium Level 7.8L, Phosphorus Level 3.0, Magnesium Level 1.8, Total Bilirubin 0.2, Aspartate Amino Transf (AST/SGOT) 17, Alanine Aminotransferase (ALT/SGPT) 12, Alkaline Phosphatase 67, Total Protein 5.5L, Albumin 1.8L, Albumin/Globulin Ratio 0.5L CBC/BMP Laboratory Tests 04/24/20 12:15 Microbiology Microbiology 04/24/20 Acid Fast Stain, Received Pending 04/24/20 Mycobacterial Culture, Received Pending 04/24/20 Fungal Smear, Received Pending 04/24/20 Fungal Culture, Received Pending 04/24/20 Gram Stain, Received Pending 04/24/20 Body Fluid Culture, Received Pending 04/14/20 Gram Stain - Final, Complete 04/14/20 Wound Culture - Final, Complete 04/14/20 Urine Culture - Final, Complete Home Medications Scheduled Amlodipine Besylate (Norvasc) 5 Mg Tablet, 5 MG PO DAILY TOTAL OF 7.5MG DAILY Aspirin (Aspir 81) 81 Mg Tablet.dr, 81 MG PO QHS Carvedilol (Carvedilol) 12.5 Mg Tablet, 12.5 MG PO BID Cholecalciferol (Vitamin D3) (Vitamin D3) 25 Mcg Tablet, 25 MCG PO DAILY Duloxetine Hcl (Duloxetine HCl) 30 Mg Capsule.dr, 60 MG PO QHS Duloxetine Hcl (Duloxetine HCl) 30 Mg Capsule.dr, 30 MG PO QAM Esomeprazole Magnesium (Nexium) 40 Mg Cap, 40 MG PO BID Folic Acid (Folic Acid) 1 Mg Tablet, 1 MG PO DAILY Gabapentin (Gabapentin) 300 Mg Capsule, 300 MG PO TID Loratadine (Loratadine) 10 Mg Tablet, 10 MG PO QHS Magnesium Oxide (Magnesium) 250 Mg Tablet, 1 TAB PO DAILY Rosuvastatin Calcium (Rosuvastatin Calcium) 10 Mg Tablet, 10 MG PO QHS Zolpidem Tartrate (Zolpidem Tartrate) 5 Mg Tablet, 5 MG PO QHS Scheduled PRN Hydrocodone/Acetaminophen (Hydrocodone-Acetamin 10-325 mg) 1 Each Tablet, 1 TAB PO QID PRN for PAIN Prednisone (Prednisone) 5 Mg Tablet, 5 MG PO DAILY PRN for ARTHRITIS Sennosides (Senna) 8.6 Mg Tablet, 43 MG PO QHS PRN for CONSTIPATION Miscellaneous Medications Sodium Phosphate,[place]-Dibasic (Fleet Enema) 133 Ml Enema, 1 [place] Allergies Coded Allergies: Cephalosporins (Verified Allergy, Severe, red man syndrome, 07/30/19) Penicillins (Verified Allergy, Severe, anyphylaxis, 07/30/19) Physical Examination General Exam: Positive: Alert, No Acute Distress Eye Exam: Positive: PERRLA, Conjunctiva & lids normal; Negative: Sclera icteric ENT EXAM: Positive: Atraumatic, Mucous membr. moist/pink Neck Exam: Positive: Supple; Negative: JVD, Thyromegaly, Lymphadenopathy Chest Exam: Positive: Clear to auscultation, Normal air movement Heart Exam: Positive: Rate Normal Breast Exam: Positive: Symmetric Bilaterally Abdomen Exam: Positive: Normal bowel sounds; Negative: Tenderness, Hepatospenomegaly, Mass Extremity Exam: Negative: Clubbing, Cyanosis, Edema Skin Exam: Positive: Nl turgor and temperature; Negative: Rash, Breakdown, Lesion Neuro Exam: Positive: Normal Speech, Normal Tone Psych Exam: Positive: Mental status JAMARI VILLAR OMS-3 Apr 24, 2020 14:36
[2020-04-24] MEDS ORDERED: AMINO AC/ELECTROLYTE/DEX/CALC 2,000 ML IV SCH (18:00)
[2020-04-24] MEDS ORDERED: FAT EMULSION IV 20% 500 ML IV SCH (18:00)
[2020-04-24] MEDS: ACETAMINOPHEN TAB 650MG DOSE (2X325MG) PO PRN (18:27)
[2020-04-24] MEDS: ROSUVASTATIN 10 MG TAB (CRESTOR) PO SCH (21:02)
[2020-04-24] MEDS: LORATADINE 10 MG TAB PO SCH (21:02)
[2020-04-24 22:00] VITALS: BP 107/56
[2020-04-24] MEDS: LevoFLOXacin IV 750 MG in IV 1 EA IV SCH (23:37)
[2020-04-25] MEDS: zolPIDEM TARTRATE 5 MG TAB PO PRN (00:20)
[2020-04-25] MEDS: metroNIDAZOLE 500 MG in IV 1 EA IV SCH ×3 (01:28→15:31)
[2020-04-25 06:00] VITALS: BP 117/62
[2020-04-25] MEDS: HumaLOG INSULIN (NovoLOG) PER UNIT SC SCH ×2 (06:00→12:08)
[2020-04-25] MEDS: SODIUM CHLORIDE 0.9% INJ 10 ML SYR IV SCH ×2 (06:00→18:36)
[2020-04-25] MEDS: IPRATROPIUM 0.5MG/ALBUTEROL 2.5MG INH SOL UD 3ML (DUONEB) NEB SCH ×3 (07:30→18:04)
[2020-04-25] MEDS: NEXIUM 40 MG PO SCH ×2 (08:04→21:33)
[2020-04-25] MEDS: FLUTICASONE PROP 0.05% NASAL SPRAY 16 GM (FLONASE) NARES SCH ×2 (08:04→21:34)
[2020-04-25] MEDS: SODIUM CHLORIDE NASAL 0.65% SPRAY BTL (OCEAN) SCH ×3 (08:05→21:34)
[2020-04-25] MEDS: VITAMIN D 1,000 INTERNATIONAL UNITS TABLET PO SCH (08:05)
[2020-04-25] MEDS: MAGNESIUM OXIDE 400 MG TAB (MAG-OX) PO SCH (08:05)
[2020-04-25] MEDS: TOLTERODINE TARTRATE 2 MG LA CAP (DETROL LA) PO SCH (08:05)
[2020-04-25] MEDS: DULoxetine 30 MG CAP (CYMBALTA) PO SCH ×2 (08:05→21:32)
[2020-04-25] MEDS: ATENOLOL 12.5MG PER 1/2 TABLET PO SCH (08:05)
[2020-04-25] MEDS: OLANZapine 2.5MG TABLET PO SCH ×2 (08:06→21:33)
[2020-04-25] MEDS: LACTOBACILLUS ACIDOPHILUS CAP (BACID) PO SCH ×3 (08:06→21:32)
[2020-04-25] MEDS: AMIODARONE 200 MG TAB (PACERONE) PO SCH ×3 (08:06→21:33)
[2020-04-25] MEDS: FOLIC ACID 1 MG TAB PO SCH (08:06)
[2020-04-25] MEDS: NORCO, ANEXSIA 5/325MG TABLET (HYDROcodone/ACETAMINOPHEN) PO PRN ×3 (08:06→21:38)
[2020-04-25] MEDS: GABAPENTIN 300 MG CAP PO SCH ×3 (08:06→21:32)
[2020-04-25] MEDS: REMEDY PHYTOPLEX Z-GUARD PASTE 113GM TUBE (FROM STOREROOM PRODUCT) TOP SCH ×4 (08:07→22:12)
[2020-04-25] MEDS ORDERED: FUROSEMIDE 20MG/2ML VIAL (J1940) IV ONE (08:15)
[2020-04-25 09:24] LABS: BASO # 0.1 10^3/uL (0.0-0.2); BASO % 0.6 % (0.0-1.0); EOS # 0.3 10^3/uL (0.0-0.5); EOS % 2.2 % (0.0-3.0); HEMATOCRIT 29.9 % (36.0-47.0); HEMOGLOBIN 9.3 g/dl (12.0-15.5); LYMPH # 2.2 10^3/uL (1.5-5.0); LYMPH % 18.8 % (24.0-44.0); MEAN CORPUSCULAR HEMOGLOBIN 29.3 pg (27.0-33.0); MEAN CORPUSCULAR HGB CONC 31.1 g/dl (32.0-36.5); MEAN CORPUSCULAR VOLUME 94.3 fl (80.0-96.0); MONO # 0.6 10^3/uL (0.0-0.8); MONO % 5.5 % (0.0-5.0); NEUTROPHILS # 8.2 10^3/uL (1.5-8.5); NEUTROPHILS % 71.1 % (36.0-66.0); PLATELET COUNT, AUTOMATED 228 10^3/uL (150-450); RED BLOOD COUNT 3.17 10^6/uL (4.00-5.40); WHITE BLOOD COUNT 11.5 10^3/uL (4.0-10.0)
--- NOTE | 2020-04-25 09:37 | IPNPDOC ---
Text Note Date of Service The patient was seen on 04/25/20. NOTE SUBJECTIVE: Patient seen on med surg floor this morning, was pleasant and com fortable. No further episodes of hypotension. Says she feels ok, a little sore from the ultrasound guided subhepatic abscess performed yesterday. She denies any fever, chills, chest pain, SOB, nausea or vomiting. Still complains of abdominal pain at an intensity of 9/10 before administration of pain medication. OBJECTIVE: PHYSICAL EXAMINATION: VITAL SIGNS: Please see below. GENERAL: Patient is pleasant and lying comfortably in bed in NAD. HEENT: NC, AT, EOMI, no scleral icterus. Dry mucous membranes, no pharyngeal erythema. CV: RRR +S1 and S2, 3/6 systolic murmur appreciated. RESP: Exam limited due to pain but no abnormalities appreciated. ABDOMEN: Bowel sounds present, abdomen obese and generally tender, more tenderness in RUQ, non-distended, no guarding or rebound tenderness. Colectomy wound appears clean and dry without erythema. Wound vac still in place with no signs of infection. Ostomy bag in place nondistended with semi-solid stool and is clean and dry without erythema. RUQ abscess drainage site clean and dry without erythema. EXTREMITIES: 1+ pitting edema noted LABORATORY DATA, IMAGING STUDIES, MICROBIOLOGY: Please see below. ASSESSMENT AND PLAN: 65 yo female s/p colectomy secondary to undifferentiated ischemia and following ultrasound guided drainage of subhepatic abscess. #Subhepatic fluid collection - likely 2/2 hematoma / seroma - Drainage performed yesterday, culture and analysis pending. - Continue on broad spectrum antibiotics pending results of fluid analysis. #Generalized weakness - Pt has been working with PT/OT with the goal of going to rehab unit or discharge home. - Currently on TPN via PICC line to improve nutrition status. - Continue PT/OT and blood pressure monitoring. #Hypotension - Appears to have resolved and is responsive to fluids. #Poor peripheral access - PICC line in place for peripheral access. - Continue TPN through PICC line. #SBO s/p subtotal colectomy - follow as per surgery #Afib RVR - Rate controlled - Continue BB and amiodarone. - Eliquis for anticoagulation. #HTN - Continue holding home meds. #HLD - Continue home meds. VS,Fishbone, I+O VS, Fishbone, I+O Laboratory Tests 04/24/20 12:15 Vital Signs Date Time Temp Pulse Resp B/P (MAP) Pulse Ox O2 Delivery O2 Flow Rate FiO2 04/25/20 08:36 18 04/25/20 08:05 75 117/62 04/25/20 06:00 98.7 96 Room Air I&O- Last 24 Hours up to 6 AM 04/25/20 06:00 Intake Total 1635 ml Output Total 3450 ml Balance -1815 ml GME ATTESTATION GME ATTESTATION My faculty preceptor for this patient encounter was physically present during the encounter and was fully available. All aspects of the patient interview, examination, medical decision making process, and medical care plan development were reviewed and approved by the faculty preceptor. The faculty preceptor is aware and concurs with the plan as stated in the body of this note and will attest to such by his/her cosignature. ATTENDING NOTE I, Eboni Arriola, have independently examined this patient and performed my own physical exam, as well as reviewed the documentation and edited where necessary. I have discussed in detail with the resident / student the findings and plan of treatment as documented by the resident / student and edited their note. I agree with their findings and treatment plan and have edited their documentation. I will continue to follow the patient during this hospital stay. JAMARI MCDOWELL S-3 Apr 25, 2020 09:37 EBONI ARRIOLA MD Apr 25, 2020 17:23
[2020-04-25] MEDS: APIXABAN 5 MG TAB (ELIQUIS) PO SCH ×2 (09:39→21:33)
[2020-04-25 09:55] LABS: ALBUMIN 1.7 GM/DL (3.2-5.2); ALT/SGPT 10 U/L (12-78); BILIRUBIN,TOTAL 0.2 MG/DL (0.2-1.0); BLOOD UREA NITROGEN 10 MG/DL (7-18); CALCIUM LEVEL 7.4 MG/DL (8.8-10.2); CARBON DIOXIDE LEVEL 23 MEQ/L (21-32); CHLORIDE LEVEL 111 MEQ/L (98-107); CREATININE FOR GFR 0.75 MG/DL (0.55-1.30); GLOMERULAR FILTRATION RATE > 60.0 (>45); GLUCOSE, FASTING 122 MG/DL (70-100); MAGNESIUM LEVEL 1.7 MG/DL (1.8-2.4); PHOSPHORUS LEVEL 3.5 MG/DL (2.5-4.9); POTASSIUM SERUM 4.3 MEQ/L (3.5-5.1); SODIUM LEVEL 142 MEQ/L (136-145); TOTAL PROTEIN 4.9 GM/DL (6.4-8.2)
[2020-04-25 14:00] VITALS: BP_SYST 134; BP_SYST 167; BP_DIAS 74; BP_DIAS 86
[2020-04-25] MEDS: ACETAMINOPHEN TAB 650MG DOSE (2X325MG) PO PRN (15:31)
[2020-04-25 20:00] VITALS: BP 109/62
[2020-04-25] MEDS: ROSUVASTATIN 10 MG TAB (CRESTOR) PO SCH (21:32)
[2020-04-25] MEDS: LORATADINE 10 MG TAB PO SCH (21:33)
[2020-04-25 22:11] LABS: SPEC. GRAVITY BODY FLUIDS 1.029 (NOT ESTABLISHED)
[2020-04-25] MEDS: ONDANSETRON 4MG/2ML VIAL IV PRN (22:51)
[2020-04-25] MEDS: LevoFLOXacin IV 750 MG in IV 1 EA IV SCH (22:52)
[2020-04-26] MEDS: metroNIDAZOLE 500 MG in IV 1 EA IV SCH ×2 (00:40→09:01)
[2020-04-26 06:00] VITALS: BP 115/65
[2020-04-26] MEDS: NORCO, ANEXSIA 5/325MG TABLET (HYDROcodone/ACETAMINOPHEN) PO PRN ×4 (06:22→19:35)
[2020-04-26] MEDS: SODIUM CHLORIDE 0.9% INJ 10 ML SYR IV SCH ×2 (06:24→19:03)
[2020-04-26 06:40] LABS: BASO # 0.1 10^3/uL (0.0-0.2); BASO % 0.7 % (0.0-1.0); EOS # 0.1 10^3/uL (0.0-0.5); EOS % 1.3 % (0.0-3.0); HEMATOCRIT 30.2 % (36.0-47.0); HEMOGLOBIN 9.3 g/dl (12.0-15.5); LYMPH # 1.7 10^3/uL (1.5-5.0); LYMPH % 20.9 % (24.0-44.0); MEAN CORPUSCULAR HEMOGLOBIN 29.2 pg (27.0-33.0); MEAN CORPUSCULAR HGB CONC 30.8 g/dl (32.0-36.5); MONO # 0.7 10^3/uL (0.0-0.8); MONO % 8.2 % (0.0-5.0); NEUTROPHILS # 5.5 10^3/uL (1.5-8.5); NEUTROPHILS % 66.9 % (36.0-66.0); PLATELET COUNT, AUTOMATED 195 10^3/uL (150-450); RED BLOOD COUNT 3.18 10^6/uL (4.00-5.40); WHITE BLOOD COUNT 8.2 10^3/uL (4.0-10.0)
[2020-04-26 06:53] LABS: ALBUMIN 1.6 GM/DL (3.2-5.2); ALT/SGPT 7 U/L (12-78); BILIRUBIN,TOTAL 0.2 MG/DL (0.2-1.0); BLOOD UREA NITROGEN 10 MG/DL (7-18); CALCIUM LEVEL 7.7 MG/DL (8.8-10.2); CARBON DIOXIDE LEVEL 24 MEQ/L (21-32); CHLORIDE LEVEL 112 MEQ/L (98-107); CREATININE FOR GFR 0.78 MG/DL (0.55-1.30); GLOMERULAR FILTRATION RATE > 60.0 (>45); GLUCOSE, FASTING 89 MG/DL (70-100); MAGNESIUM LEVEL 1.8 MG/DL (1.8-2.4); PHOSPHORUS LEVEL 3.9 MG/DL (2.5-4.9); POTASSIUM SERUM 3.8 MEQ/L (3.5-5.1); SODIUM LEVEL 143 MEQ/L (136-145); TOTAL PROTEIN 5.2 GM/DL (6.4-8.2)
[2020-04-26] MEDS: IPRATROPIUM 0.5MG/ALBUTEROL 2.5MG INH SOL UD 3ML (DUONEB) NEB SCH ×3 (07:38→18:18)
[2020-04-26 08:15] VITALS: BP 124/64
--- NOTE | 2020-04-26 08:45 | IPNPDOC ---
Text Note Date of Service The patient was seen on 04/26/20. NOTE No acute events overnight. She is tolerating a reg diet. No complaints of suzy sea, emesis, fevers, or pains. The subhepatic drain has minimal output, and her ostomy is working well. VSSAF NAD abd - soft, nt, nd, dressing c/d/i with wound vac in place w/out leak, subhepatic drain with serosanguinous output labs - below A) 65y/o female s/p subtotal colectomy with ileostomy. Wound dehisence with wound vac in place P) reg diet wound vac likely removed subhepatic drain by tuesday abx PT/OT plan for return to rehab soon Jeramie Byrd DO VS,[place], I+O VS, [place], I+O Laboratory Tests 04/25/20 08:57 04/26/20 05:56 Vital Signs Date Time Temp Pulse Resp B/P (MAP) Pulse Ox O2 Delivery O2 Flow Rate FiO2 04/26/20 06:22 17 04/26/20 06:00 98.7 78 115/65 (82) 97 Room Air I&O- Last 24 Hours up to 6 AM 04/26/20 06:00 Intake Total 1450 ml Output Total 3170 ml Balance -1720 ml ROXANN BYRD DO Apr 26, 2020 08:45
[2020-04-26] MEDS ORDERED: MORPHINE 2 MG/ML 1ML VIAL (J2270) IV ONE (10:00)
[2020-04-26] MEDS: NEXIUM 40 MG PO SCH ×2 (10:39→20:19)
[2020-04-26] MEDS: MAGNESIUM OXIDE 400 MG TAB (MAG-OX) PO SCH (10:41)
[2020-04-26] MEDS: FOLIC ACID 1 MG TAB PO SCH (10:41)
[2020-04-26] MEDS: OLANZapine 2.5MG TABLET PO SCH ×2 (10:41→20:19)
[2020-04-26] MEDS: DULoxetine 30 MG CAP (CYMBALTA) PO SCH ×2 (10:42→20:19)
[2020-04-26] MEDS: LACTOBACILLUS ACIDOPHILUS CAP (BACID) PO SCH ×3 (10:42→20:19)
[2020-04-26] MEDS: AMIODARONE 200 MG TAB (PACERONE) PO SCH (10:42)
[2020-04-26] MEDS: APIXABAN 5 MG TAB (ELIQUIS) PO SCH ×2 (10:42→20:19)
[2020-04-26] MEDS: GABAPENTIN 300 MG CAP PO SCH ×3 (10:42→20:19)
[2020-04-26] MEDS: VITAMIN D 1,000 INTERNATIONAL UNITS TABLET PO SCH (10:42)
[2020-04-26] MEDS: TOLTERODINE TARTRATE 2 MG LA CAP (DETROL LA) PO SCH (10:46)
[2020-04-26] MEDS: ATENOLOL 12.5MG PER 1/2 TABLET PO SCH (10:46)
[2020-04-26] MEDS: FLUTICASONE PROP 0.05% NASAL SPRAY 16 GM (FLONASE) NARES SCH ×2 (10:48→20:20)
[2020-04-26] MEDS: SODIUM CHLORIDE NASAL 0.65% SPRAY BTL (OCEAN) SCH ×3 (10:49→20:20)
[2020-04-26] MEDS: REMEDY PHYTOPLEX Z-GUARD PASTE 113GM TUBE (FROM STOREROOM PRODUCT) TOP SCH ×3 (10:50→20:20)
[2020-04-26] MEDS: FUROSEMIDE 20MG/2ML VIAL (J1940) IV SCH (11:00)
[2020-04-26 14:00] VITALS: BP 91/58
[2020-04-26 14:15] VITALS: BP 110/58
--- NOTE | 2020-04-26 17:56 | IPNPDOC ---
Text Note Date of Service The patient was seen on 04/26/20. NOTE SUBJECTIVE: No acute events overnight, patient reports she is doing well. She denies any fever, chills, chest pain, SOB, nausea or vomiting. Still complains of abdominal pain, but well controlled on pain medications. OBJECTIVE: PHYSICAL EXAMINATION: VITAL SIGNS: Please see below. GENERAL: Patient is pleasant and lying comfortably in bed in NAD. HEENT: NC, AT, EOMI, no scleral icterus. Dry mucous membranes, no pharyngeal erythema. CV: RRR +S1 and S2, 3/6 systolic murmur appreciated. RESP: CTAB with diminished breath sounds, no wheezes, crackles, or rhonchi. ABDOMEN: Bowel sounds present, abdomen obese and generally tender, more tenderness in RUQ, non-distended, no guarding or rebound tenderness. Colectomy wound appears clean and dry without erythema. Wound vac still in place with no signs of infection. Ostomy bag in place nondistended with semi-solid stool and is clean and dry without erythema. RUQ abscess drainage site clean and dry without erythema. EXTREMITIES: 1+ pitting edema noted LABORATORY DATA, IMAGING STUDIES, MICROBIOLOGY: Please see below. ASSESSMENT AND PLAN: 65 yo female s/p colectomy secondary to undifferentiated ischemia and following ultrasound guided drainage of subhepatic abscess. #Subhepatic fluid collection - likely 2/2 hematoma/seroma - Drainage performed, fluid analysis showing 38k wbc, 528 RBC with PMN predominance, procalcitonin negative, gram stain negative, will dc IV abx as patient has been on them for 10 days with no fevers,chills, or elevation in WBC count #Generalized weakness - Pt has been working with PT/OT with the goal of going to rehab unit or discharge home. - Currently on TPN via PICC line to improve nutrition status. - Continue PT/OT and blood pressure monitoring. #Poor peripheral access - PICC line in place for peripheral access. - Continue TPN through PICC line. #SBO s/p subtotal colectomy - follow as per surgery #Afib RVR - Rate controlled - Continue BB and amiodarone. - Eliquis for anticoagulation. #HTN - Continue holding home meds. #HLD - Continue home meds. Dispo: Pending clinical improvement, ARU screen entered. VS,Fishbone, I+O VS, Fishbone, I+O Laboratory Tests 04/26/20 05:56 Vital Signs Date Time Temp Pulse Resp B/P (MAP) Pulse Ox O2 Delivery O2 Flow Rate FiO2 04/26/20 16:02 16 04/26/20 10:46 80 124/64 04/26/20 08:15 97.8 94 Room Air I&O- Last 24 Hours up to 6 AM 04/26/20 06:00 Intake Total 1450 ml Output Total 3170 ml Balance -1720 ml GME ATTESTATION GME ATTESTATION My faculty preceptor for this patient encounter was physically present during the encounter and was fully available. All aspects of the patient interview, examination, medical decision making process, and medical care plan development were reviewed and approved by the faculty preceptor. The faculty preceptor is aware and concurs with the plan as stated in the body of this note and will attest to such by his/her cosignature. ATTENDING NOTE I, Eboni Arriola, have independently examined this patient and performed my own physical exam, as well as reviewed the documentation and edited where necessary. I have discussed in detail with the resident / student the findings and plan of treatment as documented by the resident / student and edited their note. I agree with their findings and treatment plan and have edited their documentation. I will continue to follow the patient during this hospital stay. ZACKARY ROTHMAN DO Apr 26, 2020 17:56 EBONI ARRIOLA MD May 11, 2020 16:35
[2020-04-26] MEDS ORDERED: FAT EMULSION IV 20% 500 ML IV SCH (18:00)
[2020-04-26] MEDS: HumaLOG INSULIN (NovoLOG) PER UNIT SC SCH ×2 (18:00→23:38)
[2020-04-26] MEDS ORDERED: AMINO AC/ELECTROLYTE/DEX/CALC 2,000 ML IV SCH (18:00)
[2020-04-26 20:00] VITALS: BP 124/71
[2020-04-26] MEDS: LORATADINE 10 MG TAB PO SCH (20:19)
[2020-04-26] MEDS: ROSUVASTATIN 10 MG TAB (CRESTOR) PO SCH (20:19)
[2020-04-26 21:30] LABS: C REACTIVE PROTEIN QUANTITATIV 2.24 MG/DL (0.00-0.30)
[2020-04-27] MEDS: zolPIDEM TARTRATE 5 MG TAB PO PRN (00:49)
[2020-04-27] MEDS: NORCO, ANEXSIA 5/325MG TABLET (HYDROcodone/ACETAMINOPHEN) PO PRN ×4 (03:57→22:19)
[2020-04-27] MEDS: SODIUM CHLORIDE 0.9% INJ 10 ML SYR IV SCH ×3 (05:10→18:21)
[2020-04-27 06:00] VITALS: BP 125/69
[2020-04-27] MEDS: HumaLOG INSULIN (NovoLOG) PER UNIT SC SCH ×2 (06:47→12:00)
[2020-04-27] MEDS: IPRATROPIUM 0.5MG/ALBUTEROL 2.5MG INH SOL UD 3ML (DUONEB) NEB SCH ×3 (07:45→20:42)
[2020-04-27] MEDS: NEXIUM 40 MG PO SCH ×2 (09:27→21:50)
[2020-04-27] MEDS: APIXABAN 5 MG TAB (ELIQUIS) PO SCH ×2 (09:28→21:51)
[2020-04-27] MEDS: FUROSEMIDE 20MG/2ML VIAL (J1940) IV SCH (09:28)
[2020-04-27] MEDS: GABAPENTIN 300 MG CAP PO SCH ×3 (09:29→21:51)
[2020-04-27] MEDS: OLANZapine 2.5MG TABLET PO SCH ×2 (09:29→21:51)
[2020-04-27] MEDS: FOLIC ACID 1 MG TAB PO SCH (09:29)
[2020-04-27] MEDS: DULoxetine 30 MG CAP (CYMBALTA) PO SCH ×2 (09:29→21:51)
[2020-04-27] MEDS: VITAMIN D 1,000 INTERNATIONAL UNITS TABLET PO SCH (09:29)
[2020-04-27] MEDS: AMIODARONE 200 MG TAB (PACERONE) PO SCH (09:29)
[2020-04-27] MEDS: TOLTERODINE TARTRATE 2 MG LA CAP (DETROL LA) PO SCH (09:29)
[2020-04-27] MEDS: MAGNESIUM OXIDE 400 MG TAB (MAG-OX) PO SCH (09:29)
[2020-04-27] MEDS: ATENOLOL 12.5MG PER 1/2 TABLET PO SCH (09:30)
[2020-04-27] MEDS: LACTOBACILLUS ACIDOPHILUS CAP (BACID) PO SCH ×3 (09:30→21:51)
[2020-04-27] MEDS: SODIUM CHLORIDE NASAL 0.65% SPRAY BTL (OCEAN) SCH ×3 (09:41→21:51)
[2020-04-27] MEDS: FLUTICASONE PROP 0.05% NASAL SPRAY 16 GM (FLONASE) NARES SCH ×2 (09:41→21:51)
[2020-04-27] MEDS: REMEDY PHYTOPLEX Z-GUARD PASTE 113GM TUBE (FROM STOREROOM PRODUCT) TOP SCH ×3 (09:42→21:52)
[2020-04-27 09:49] LABS: BASO # 0.1 10^3/uL (0.0-0.2); BASO % 0.8 % (0.0-1.0); EOS # 0.3 10^3/uL (0.0-0.5); HEMATOCRIT 25.8 % (36.0-47.0); HEMOGLOBIN 8.8 g/dl (12.0-15.5); LYMPH # 1.4 10^3/uL (1.5-5.0); LYMPH % 21.9 % (24.0-44.0); MEAN CORPUSCULAR HEMOGLOBIN 35.2 pg (27.0-33.0); MEAN CORPUSCULAR HGB CONC 34.1 g/dl (32.0-36.5); MEAN CORPUSCULAR VOLUME 103.2 fl (80.0-96.0); MONO # 0.5 10^3/uL (0.0-0.8); MONO % 7.9 % (0.0-5.0); NEUTROPHILS # 4.2 10^3/uL (1.5-8.5); NEUTROPHILS % 63.6 % (36.0-66.0); PLATELET COUNT, AUTOMATED 196 10^3/uL (150-450); WHITE BLOOD COUNT 6.6 10^3/uL (4.0-10.0)
--- NOTE | 2020-04-27 09:55 | IPNPDOC ---
Text Note Date of Service The patient was seen on 04/27/20. NOTE Subjective: Patient is a 65 year old female with recent colectomy 2/2 ischemic colitis. Admitted to hospitalist service after she was noted to be hypotensive in the ARU. Patient was seen and examined at the bedside. Denies any problems overnight. Reports no CP, SOB or palpitations. Reports that her leg swelling has improved. Objective: Vitals (See below) General: Lying in bed, appears comfortable, AAOx3 HEENT: NC, AT CVS: +S1S2 Lungs: Fair air entry b/l, -w/r/r Abdomen: Soft, drainage catheter at RUQ, midline incision with wound vac in place Extremities: 1+ edema bilaterally, - Calf tenderness Assessment and plan: s/p Leukocytosis - No evidence of ongoing infection - Hemodynamically stable / Afebrile - s/p Leukocytosis - PCT negative - s/p Drainage of subhepatic fluid collection - likely 2/2 hematoma/seroma - Plans for removal of drainage catheter on Tuesday - will discuss with Surgery - s/p antibiotics Generalized weakness - likely 2/2 deconditioning - Currently on TPN nutrition for supplement; will c/w regular diet + ensure - c/w PT and OT Fluid overload - continues to improve - c/w Diuresis with Furosemide IV Poor peripheral access - s/p PICC line SBO s/p subtotal colectomy for ischemic colitis - Surgery on consultation A. fib; s/p RVR - c/w rate / rhythm control with Amiodarone / Atenolol - c/w Eliquis for anticoagulation HTN - c/w Atenolol with hold parameters DLP - c/w Rosuvastatin GI prophylaxis - c/w Home Nexium DVT prophylaxis - c/w full anticoagulation with Eliquis Disposition: - Pending clinical improvement, ARU screen entered. VS,Fishbone, I+O VS, Fishbone, I+O Vital Signs Date Time Temp Pulse Resp B/P (MAP) Pulse Ox O2 Delivery O2 Flow Rate FiO2 04/27/20 09:30 88 121/76 04/27/20 07:47 16 04/27/20 06:00 95.6 93 Room Air I&O- Last 24 Hours up to 6 AM 04/27/20 06:00 Intake Total 1210 ml Output Total 2750 ml Balance -1540 ml ARRIOLA,VIJESH MD Apr 27, 2020 09:55
[2020-04-27 12:09] LABS: ALBUMIN 1.8 GM/DL (3.2-5.2); ALT/SGPT 7 U/L (12-78); BILIRUBIN,TOTAL 0.2 MG/DL (0.2-1.0); BLOOD UREA NITROGEN 11 MG/DL (7-18); CALCIUM LEVEL 7.8 MG/DL (8.8-10.2); CARBON DIOXIDE LEVEL 29 MEQ/L (21-32); CHLORIDE LEVEL 106 MEQ/L (98-107); CREATININE FOR GFR 0.75 MG/DL (0.55-1.30); GLOMERULAR FILTRATION RATE > 60.0 (>45); GLUCOSE, FASTING 115 MG/DL (70-100); MAGNESIUM LEVEL 1.7 MG/DL (1.8-2.4); PHOSPHORUS LEVEL 3.7 MG/DL (2.5-4.9); POTASSIUM SERUM 3.6 MEQ/L (3.5-5.1); SODIUM LEVEL 142 MEQ/L (136-145); TOTAL PROTEIN 5.6 GM/DL (6.4-8.2)
[2020-04-27 14:00] VITALS: BP 116/69
[2020-04-27] MEDS ORDERED: MAG SULF 1GM/100ML (MAG RUN) 1 GM in IV 1 EA IV ONE (14:00)
[2020-04-27] MEDS ORDERED: AMINO AC/ELECTROLYTE/DEX/CALC 2,000 ML IV SCH (18:00)
[2020-04-27] MEDS ORDERED: FAT EMULSION IV 20% 500 ML IV SCH (18:00)
[2020-04-27] MEDS: LORATADINE 10 MG TAB PO SCH (21:51)
[2020-04-27] MEDS: ROSUVASTATIN 10 MG TAB (CRESTOR) PO SCH (21:51)
[2020-04-27 22:00] VITALS: BP 135/74
[2020-04-28] MEDS: zolPIDEM TARTRATE 5 MG TAB PO PRN ×2 (00:01→23:29)
[2020-04-28] MEDS: SODIUM CHLORIDE 0.9% INJ 10 ML SYR IV SCH ×2 (05:57→18:00)
[2020-04-28 06:00] VITALS: BP 129/70
[2020-04-28 06:07] LABS: BASO # 0.1 10^3/uL (0.0-0.2); BASO % 0.6 % (0.0-1.0); EOS # 0.2 10^3/uL (0.0-0.5); EOS % 2.2 % (0.0-3.0); HEMATOCRIT 26.7 % (36.0-47.0); HEMOGLOBIN 8.3 g/dl (12.0-15.5); LYMPH # 1.5 10^3/uL (1.5-5.0); LYMPH % 19.7 % (24.0-44.0); MEAN CORPUSCULAR HEMOGLOBIN 29.1 pg (27.0-33.0); MEAN CORPUSCULAR HGB CONC 31.1 g/dl (32.0-36.5); MEAN CORPUSCULAR VOLUME 93.7 fl (80.0-96.0); MONO # 0.7 10^3/uL (0.0-0.8); MONO % 8.9 % (0.0-5.0); NEUTROPHILS # 5.2 10^3/uL (1.5-8.5); NEUTROPHILS % 67.4 % (36.0-66.0); PLATELET COUNT, AUTOMATED 203 10^3/uL (150-450); RED BLOOD COUNT 2.85 10^6/uL (4.00-5.40); WHITE BLOOD COUNT 7.7 10^3/uL (4.0-10.0)
[2020-04-28] MEDS: IPRATROPIUM 0.5MG/ALBUTEROL 2.5MG INH SOL UD 3ML (DUONEB) NEB SCH ×3 (06:11→18:38)
[2020-04-28 07:03] LABS: ALBUMIN 1.7 GM/DL (3.2-5.2); ALT/SGPT 6 U/L (12-78); BILIRUBIN,TOTAL 0.1 MG/DL (0.2-1.0); BLOOD UREA NITROGEN 13 MG/DL (7-18); CALCIUM LEVEL 7.7 MG/DL (8.8-10.2); CARBON DIOXIDE LEVEL 28 MEQ/L (21-32); CHLORIDE LEVEL 108 MEQ/L (98-107); CREATININE FOR GFR 0.78 MG/DL (0.55-1.30); GLOMERULAR FILTRATION RATE > 60.0 (>45); GLUCOSE, FASTING 108 MG/DL (70-100); MAGNESIUM LEVEL 2.2 MG/DL (1.8-2.4); PHOSPHORUS LEVEL 4.1 MG/DL (2.5-4.9); POTASSIUM SERUM 4.3 MEQ/L (3.5-5.1); SODIUM LEVEL 142 MEQ/L (136-145)
[2020-04-28] MEDS: NORCO, ANEXSIA 5/325MG TABLET (HYDROcodone/ACETAMINOPHEN) PO PRN ×4 (07:44→21:29)
[2020-04-28] MEDS ORDERED: ATEN25TA PO (09:54)
[2020-04-28] MEDS ORDERED: OLAN2.5T25 PO (09:54)
[2020-04-28] MEDS ORDERED: AMIO200T3 PO (09:54)
[2020-04-28] MEDS ORDERED: RISATAB3 PO (09:54)
[2020-04-28] MEDS ORDERED: FURO40TA2 PO (09:54)
[2020-04-28] MEDS ORDERED: ELIQ5TAB PO (09:54)
[2020-04-28] MEDS ORDERED: DETR2CAP PO (09:54)
[2020-04-28] MEDS: MAGNESIUM OXIDE 400 MG TAB (MAG-OX) PO SCH (10:21)
[2020-04-28] MEDS: LACTOBACILLUS ACIDOPHILUS CAP (BACID) PO SCH ×3 (10:21→21:30)
[2020-04-28] MEDS: ATENOLOL 12.5MG PER 1/2 TABLET PO SCH (10:22)
[2020-04-28] MEDS: TOLTERODINE TARTRATE 2 MG LA CAP (DETROL LA) PO SCH (10:23)
[2020-04-28] MEDS: DULoxetine 30 MG CAP (CYMBALTA) PO SCH ×2 (10:23→21:30)
[2020-04-28] MEDS: AMIODARONE 200 MG TAB (PACERONE) PO SCH (10:23)
[2020-04-28] MEDS: APIXABAN 5 MG TAB (ELIQUIS) PO SCH ×2 (10:23→21:31)
[2020-04-28] MEDS: GABAPENTIN 300 MG CAP PO SCH ×3 (10:23→21:30)
[2020-04-28] MEDS: VITAMIN D 1,000 INTERNATIONAL UNITS TABLET PO SCH (10:23)
[2020-04-28] MEDS: OLANZapine 2.5MG TABLET PO SCH ×2 (10:24→21:31)
[2020-04-28] MEDS: FUROSEMIDE 20MG/2ML VIAL (J1940) IV SCH (10:24)
[2020-04-28] MEDS: FOLIC ACID 1 MG TAB PO SCH (10:24)
[2020-04-28] MEDS: NEXIUM 40 MG PO SCH ×2 (10:25→21:32)
[2020-04-28] MEDS: SODIUM CHLORIDE NASAL 0.65% SPRAY BTL (OCEAN) SCH ×3 (10:26→21:32)
[2020-04-28] MEDS: FLUTICASONE PROP 0.05% NASAL SPRAY 16 GM (FLONASE) NARES SCH ×2 (10:28→21:32)
[2020-04-28] MEDS: REMEDY PHYTOPLEX Z-GUARD PASTE 113GM TUBE (FROM STOREROOM PRODUCT) TOP SCH ×3 (10:30→21:32)
--- NOTE | 2020-04-28 13:15 | IPNPDOC ---
Text Note Date of Service The patient was seen on 04/28/20. NOTE Subjective: Patient is a 65 year old female with recent colectomy 2/2 ischemic colitis. Admitted to hospitalist service after she was noted to be hypotensive in the ARU. Patient was seen and examined at the bedside. Currently denies any CP, SOB or palpitations. No N/V, has been tolerating a PO diet, reports some abdominal discomfort, has had output from her ostomy. Objective: Vitals (See below) General: Lying in bed, remains comfortable, AAOx3 HEENT: NC, AT CVS: +S1S2 Lungs: Fair air entry b/l, no wheezing / rhonchi / rales Abdomen: Soft, drainage catheter at RUQ, wound vac in place on mid line incision Extremities: 1+ edema of LE bilaterally, No calf tenderness Assessment and plan: s/p Leukocytosis - No evidence of ongoing infection - Hemodynamically stable / Afebrile - PCT negative - s/p Drainage of subhepatic fluid collection - likely 2/2 hematoma/seroma - Will have drainage catheter removed today - Will DC PICC line and TPN today - s/p antibiotics Generalized weakness - likely 2/2 deconditioning - Currently on TPN nutrition for supplement; c/w regular diet + ensure - c/w PT and OT Fluid overload - continues to improve - c/w Diuresis; will transition to PO diuretics Poor peripheral access - s/p PICC line; will likely discontinue today SBO s/p subtotal colectomy for ischemic colitis - Surgery on consultation A. fib; s/p RVR - c/w rate / rhythm control with Amiodarone / Atenolol - c/w Eliquis for anticoagulation HTN - c/w Atenolol with hold parameters DLP - c/w Rosuvastatin GI prophylaxis - c/w Home Nexium DVT prophylaxis - c/w full anticoagulation with Eliquis Disposition: - Anticipate DC within 24 hours VS[place], I+O VSFranklin, I+O Laboratory Tests 04/28/20 05:50 Vital Signs Date Time Temp Pulse Resp B/P (MAP) Pulse Ox O2 Delivery O2 Flow Rate FiO2 04/28/20 10:22 87 129/70 04/28/20 08:14 18 04/28/20 06:00 98.1 96 Room Air I&O- Last 24 Hours up to 6 AM 04/28/20 06:00 Intake Total 2106 ml Output Total 2400 ml Balance -294 ml GERRY ARRIOLA MD Apr 28, 2020 13:15
[2020-04-28 14:00] VITALS: BP 126/70
--- NOTE | 2020-04-28 15:35 | CR ---
DATE OF CONSULTATION: 04/14/2020 REASON FOR CONSULTATION: Asked to consult by hospitalist for fever in a patient who had a subtotal colectomy for ischemic colitis. HISTORY OF PRESENT ILLNESS: Mable is a 65-year-old female who was admitted about 3 weeks ago with bowel perforation. She was admitted with abdominal pain. She underwent a subtotal colectomy and ileostomy done by Dr. Do for ischemic colitis. The patient was treated with IV Zosyn followed by Levaquin, Cipro, and Flagyl. Eventually, she slowly improved and transferred on 04/09/2020 to acute rehabilitation. The patient was there for 4 days without much improvement. Patient stated she was in a lot of pain and the wound did not heal at all. She is now being transferred back to the progressive care unit (PCU) for mild hypotension and a fever of 101.6. She only had one fever spike. Part of the workup done was a CT chest abdomen and pelvis which showed, on 04/12/2020, right lower lobe consolidation with air bronchograms concerning for pneumonia and CT abdomen showed a possible seroma versus abscess on the right lateral side of the abdomen. Patient had her wound open up and now a wound vacuum assisted closure (VAC) is being placed to promote wound healing. She states that she has a lot of pain in general everywhere, specifically in the abdomen, but everything hurts. The drainage from the abdominal wound is mostly serosanguinous. PAST MEDICAL HISTORY: Significant for atrial fibrillation, history of fibromyalgia and scleroderma, ischemic colitis, aortic stenosis, hypertension, fibromyalgia, chronic pain syndrome. PAST SURGICAL HISTORY: Subtotal colectomy on 03/28/2020 for ischemic bowel. ALLERGIES: PENICILLIN, but patient has been treated with IV Zosyn in the hospital and has tolerated. MEDICATIONS: - rosuvastatin 10 mg by mouth nightly - Colace 100 mg by mouth three times a day - gabapentin 300 mg by mouth three times a day - loratadine 10 mg by mouth nightly - folic acid 1 mg daily - vitamin D 3000 units daily - magnesium oxide 400 mg daily - Cymbalta 60 mg by mouth nightly, 30 mg every morning - Bacid one tablet by mouth three times a day - amiodarone 200 mg by mouth three times a day - Flonase nasal spray one inhalation twice a day - Protonix 40 mg by mouth twice a day - Zyprexa 2 mg by mouth nightly - Levaquin 750 mg IV every 24 hours - vancomycin one dose was given today 1 gram IV every 12 hours but this was discontinued - Eliquis 5 mg by mouth twice a day Yesterday, patient was on Cipro and Flagyl, these were discontinued. PHYSICAL EXAMINATION: She is a frail looking female in no acute distress. Vital signs: Temperature is 97.8, she has been afebrile for 24 hours, oxygen saturation 96% on room air, respiratory rate 18, blood pressure 99/57. Heart: Normal S1, S2, regular, no murmurs, rubs, or gallops. Lungs are clear, no wheezes, rales, or rhonchi anteriorly. Abdomen: Soft, diffusely tender, open wound from the xiphoid to the mons pubis with serosanguinous drainage. The wound is open all the way to the fascia, there is good granulation tissue, no purulent discharge noted. There is an area of the wound on the suprapubic area that is deep and has a lot of pooling of secretions and therefore a culture was obtained from there. IMPRESSION: 65-year-old female with ischemic colitis status post subtotal colectomy and ileostomy who had no wound healing now 18 days post-surgery. She had spiked a fever up to 101.[address] concerning for infection versus seroma. She has been on multiple antibiotics including Zosyn, quinolones, and Flagyl. She has no evidence of lactic acidosis, her fever resolved without change of antibiotics. PLAN: Continue with levofloxacin 750 mg IV daily. Continue with IV Flagyl 500 mg every 8 hours for anaerobic coverage. Wound gram stain and culture has been obtained. Fungal smear and culture has been obtained. Blood cultures two sets were ordered on the day she spiked a fever, 48 hours ago, so far are negative. Will continue to follow. If the patient has a recurrent fever in spite of Levaquin, Flagyl, patient could be switched to meropenem. Will decide on further antibiotics based on results of culture and clinical course. Case has been discussed with Dr. Hays, who agrees with the plan, and Dr. Do. [facility] CENTER[facility]atin
[2020-04-28] MEDS: LORATADINE 10 MG TAB PO SCH (21:31)
[2020-04-28] MEDS: ROSUVASTATIN 10 MG TAB (CRESTOR) PO SCH (21:31)
[2020-04-28 22:00] VITALS: BP 105/65
[2020-04-29 06:00] VITALS: BP 100/56
[2020-04-29] MEDS: SODIUM CHLORIDE 0.9% INJ 10 ML SYR IV SCH (06:00)
[2020-04-29 07:24] LABS: BASO # 0.1 10^3/uL (0.0-0.2); BASO % 0.4 % (0.0-1.0); EOS # 0.2 10^3/uL (0.0-0.5); EOS % 1.8 % (0.0-3.0); HEMATOCRIT 33.4 % (36.0-47.0); HEMOGLOBIN 10.2 g/dl (12.0-15.5); LYMPH % 15.7 % (24.0-44.0); MEAN CORPUSCULAR HEMOGLOBIN 28.8 pg (27.0-33.0); MEAN CORPUSCULAR HGB CONC 30.5 g/dl (32.0-36.5); MEAN CORPUSCULAR VOLUME 94.4 fl (80.0-96.0); MONO # 1.2 10^3/uL (0.0-0.8); MONO % 9.7 % (0.0-5.0); NEUTROPHILS # 8.9 10^3/uL (1.5-8.5); PLATELET COUNT, AUTOMATED 207 10^3/uL (150-450); RED BLOOD COUNT 3.54 10^6/uL (4.00-5.40); WHITE BLOOD COUNT 12.5 10^3/uL (4.0-10.0)
[2020-04-29 08:00] LABS: ALBUMIN 2.1 GM/DL (3.2-5.2); ALT/SGPT 9 U/L (12-78); BILIRUBIN,TOTAL 0.3 MG/DL (0.2-1.0); BLOOD UREA NITROGEN 11 MG/DL (7-18); CALCIUM LEVEL 8.3 MG/DL (8.8-10.2); CARBON DIOXIDE LEVEL 29 MEQ/L (21-32); CHLORIDE LEVEL 102 MEQ/L (98-107); CREATININE FOR GFR 0.84 MG/DL (0.55-1.30); GLOMERULAR FILTRATION RATE > 60.0 (>45); GLUCOSE, FASTING 87 MG/DL (70-100); PHOSPHORUS LEVEL 4.1 MG/DL (2.5-4.9); POTASSIUM SERUM 4.4 MEQ/L (3.5-5.1); SODIUM LEVEL 139 MEQ/L (136-145); TOTAL PROTEIN 5.5 GM/DL (6.4-8.2)
[2020-04-29] MEDS: IPRATROPIUM 0.5MG/ALBUTEROL 2.5MG INH SOL UD 3ML (DUONEB) NEB SCH ×2 (08:00→14:46)
[2020-04-29 09:00] VITALS: BP 100/56
[2020-04-29] MEDS ORDERED: FUROSEMIDE 40 MG TAB PO SCH (09:00)
[2020-04-29] MEDS: REMEDY PHYTOPLEX Z-GUARD PASTE 113GM TUBE (FROM STOREROOM PRODUCT) TOP SCH ×2 (09:00→15:08)
[2020-04-29] MEDS: ATENOLOL 12.5MG PER 1/2 TABLET PO SCH (09:00)
[2020-04-29] MEDS: NEXIUM 40 MG PO SCH (10:31)
[2020-04-29] MEDS: LACTOBACILLUS ACIDOPHILUS CAP (BACID) PO SCH ×2 (10:32→15:08)
[2020-04-29] MEDS: VITAMIN D 1,000 INTERNATIONAL UNITS TABLET PO SCH (10:32)
[2020-04-29] MEDS: APIXABAN 5 MG TAB (ELIQUIS) PO SCH (10:33)
[2020-04-29] MEDS: OLANZapine 2.5MG TABLET PO SCH (10:33)
[2020-04-29] MEDS: AMIODARONE 200 MG TAB (PACERONE) PO SCH (10:33)
[2020-04-29] MEDS: DULoxetine 30 MG CAP (CYMBALTA) PO SCH (10:33)
[2020-04-29] MEDS: TOLTERODINE TARTRATE 2 MG LA CAP (DETROL LA) PO SCH (10:33)
[2020-04-29] MEDS: GABAPENTIN 300 MG CAP PO SCH ×2 (10:33→15:08)
[2020-04-29] MEDS: MAGNESIUM OXIDE 400 MG TAB (MAG-OX) PO SCH (10:34)
[2020-04-29] MEDS: FOLIC ACID 1 MG TAB PO SCH (10:34)
[2020-04-29] MEDS: NORCO, ANEXSIA 5/325MG TABLET (HYDROcodone/ACETAMINOPHEN) PO PRN ×2 (10:35→15:07)
[2020-04-29] MEDS: FLUTICASONE PROP 0.05% NASAL SPRAY 16 GM (FLONASE) NARES SCH (10:35)
[2020-04-29] MEDS: SODIUM CHLORIDE NASAL 0.65% SPRAY BTL (OCEAN) SCH ×2 (10:35→15:08)
[2020-04-29 14:00] VITALS: BP 108/62
--- NOTE | 2020-04-29 19:48 | DS.PDOC ---
Discharge Summary General Date of Admission Apr 13, 2020 at 21:50 Date of Discharge 04/29/2020 Discharge Summary Date of Admission: April 13, 2020 Date of Discharge: April 29, 2020 Attending Physician: Milagros PCP: see below Admission Diagnosis: hypotension. Discharge Diagnosis: generalized weakness Secondary Diagnoses: volume overload Consultations: none Procedures: none HPI: 65-year-old female with past medical history of hypertension, scleroderma, aortic stenosis was admitted four weeks ago for abdominal pain secondary to ischemic colitis and was transferred to aru. Hospital Course: Patient was then transferred back to inpatient on 04/13 for hypotension suspected to be secondary to pneumonia or intra-abdominal abscess. Initial leukocytosis was reviewed to be unlikely to be infectious. She has completed four weeks of antibiotic therapy. Given Pro calcitonin being negative and no other systemic signs of infection, no other antibiotics were given. Patients medically cleared to be transferred to aru. Physical Exam: General: no acute distress HEENT: normocephalic Neck: supple Heart: normal heart sounds Lungs: no abnormalities on auscultation GI: soft Neuro: no focal deficits Psych: normal mood vitals as below Pending Lab or Test Results: none Immunizations Given During Admission: none Discharge Disposition: stable Diet: cardiac Discharge Medications: as attached Follow-up Appointments: PCP within one week of discharge TIME SPENT ON DISCHARGE: 20min Vital Signs/I&Os Vital Signs Date Time Temp Pulse Resp B/P (MAP) Pulse Ox O2 Delivery O2 Flow Rate FiO2 04/29/20 15:07 16 Room Air 04/29/20 14:00 97.9 91 108/62 (77) 96 I&O- Last 24 Hours up to 6 AM 04/29/20 06:00 Intake Total 1100 ml Output Total 0 ml Balance 1100 ml Laboratory Data Labs 24H Laboratory Tests 2 04/29/20 06:49: Immature Granulocyte % (Auto) 1.4, Neutrophils (%) (Auto) 71.0H, Lymphocytes (%) (Auto) 15.7L, Monocytes (%) (Auto) 9.7H, Eosinophils (%) (Auto) 1.8, Basophils (%) (Auto) 0.4, Neutrophils # (Auto) 8.9H, Lymphocytes # (Auto) 2.0, Monocytes # (Auto) 1.2H, Eosinophils # (Auto) 0.2, Basophils # (Auto) 0.1, Nucleated Red Blood Cells % (auto) 0.2H, Anion Gap 8, Glomerular Filtration Rate > 60.0, Calcium Level 8.3L, Phosphorus Level 4.1, Magnesium Level 2.0, Total Bilirubin 0.3#, Aspartate Amino Transf (AST/SGOT) 19, Alanine Aminotransferase (ALT/SGPT) 9L, Alkaline Phosphatase 72, Total Protein 5.5L, Albumin 2.1#L, Albumin/Globulin Ratio 0.6L CBC/BMP Laboratory Tests 04/29/20 06:49 Microbiology Microbiology 04/24/20 Acid Fast Stain, Received Pending 04/24/20 Mycobacterial Culture, Received Pending 04/24/20 Fungal Smear, Received Pending 04/24/20 Fungal Culture, Received Pending 04/24/20 Gram Stain - Final, Complete 04/24/20 Body Fluid Culture - Final, Complete Discharge Medications Scheduled Amiodarone HCl (Amiodarone HCl) 200 Mg Tablet, 200 MG PO DAILY Apixaban (Eliquis) 5 Mg Tablet, 5 MG PO BID Aspirin (Aspir 81) 81 Mg Tablet.dr, 81 MG PO QHS, (Reported) Atenolol (Atenolol) 25 Mg Tablet, 12.5 MG PO DAILY Cholecalciferol (Vitamin D3) (Vitamin D3) 25 Mcg Tablet, 25 MCG PO DAILY, (R eported) Duloxetine Hcl (Duloxetine HCl) 30 Mg Capsule.dr, 60 MG PO QHS, (Reported) Duloxetine Hcl (Duloxetine HCl) 30 Mg Capsule.dr, 30 MG PO QAM, (Reported) Esomeprazole Magnesium (Nexium) 40 Mg Cap, 40 MG PO BID, (Reported) Folic Acid (Folic Acid) 1 Mg Tablet, 1 MG PO DAILY, (Reported) Furosemide (Furosemide) 40 Mg Tablet, 1 TAB PO DAILY Hold for SBP < 110 Gabapentin (Gabapentin) 300 Mg Capsule, 300 MG PO TID, (Reported) L.acidoph/L.bulg/B.bif/S.therm (Jaquelin-Bid Caplet) 1 Each Tablet, 1 EA PO TID Loratadine (Loratadine) 10 Mg Tablet, 10 MG PO QHS, (Reported) Magnesium Oxide (Magnesium) 250 Mg Tablet, 1 TAB PO DAILY, (Reported) Olanzapine (Olanzapine) 2.5 Mg Tablet, 2.5 MG PO BID Rosuvastatin Calcium (Rosuvastatin Calcium) 10 Mg Tablet, 10 MG PO QHS, (Rep orted) Tolterodine Tartrate (Detrol LA) 2 Mg Cap.er.24h, 2 MG PO DAILY Zolpidem Tartrate (Zolpidem Tartrate) 5 Mg Tablet, 5 MG PO QHS, (Reported) Scheduled PRN Hydrocodone/Acetaminophen (Hydrocodone-Acetamin 10-325 mg) 1 Each Tablet, 1 TAB PO QID PRN for PAIN, (Reported) Sennosides (Senna) 8.6 Mg Tablet, 43 MG PO QHS PRN for CONSTIPATION, (Reported) Allergies Coded Allergies: Penicillins (Verified Allergy, Severe, anyphylaxis, 07/30/19) Cephalosporins (Verified Adverse Reaction, Severe, red man syndrome, 04/29/20) SUDHEER STEPHENS DO Apr 29, 2020 19:48
--- NOTE | 2020-04-30 15:35 | REP ---
PICC LINE INSERTION WITH KARISHMA The procedure was performed under the direct supervision of Dr. Cruz. The risks and benefits of the procedure were explained to the patient and informed consent was obtained. The right basilic vein was localized using ultrasound guidance. The skin was prepped and draped in a sterile fashion. 1% Lidocaine was used as a local anesthetic. Using ultrasound guidance, the basilic vein was cannulated and a 0.018 guidewire was inserted and advanced to the SVC using fluoroscopic guidance. The needle was removed and a 5.5 Tamazight dilator and Peel-Away sheath was inserted over the guidewire. A 5.5 Tamazight dual-lumen catheter was cut to a length of 34 cm. The dilator was removed and the catheter was inserted over the guidewire with the tip ending in the SVC. The Peel-Away sheath was removed, and the catheter was flushed with heparinized saline as per hospital protocol. The catheter was affixed to the skin and a sterile dressing was applied. The patient tolerated the procedure well and there were no immediate complications. 0.5 minutes of fluoroscopy time was utilized for this procedure. ED
--- NOTE | 2020-04-30 15:37 | REP ---
ULTRASOUND-GUIDED SUBHEPATIC ABSCESS DRAIN The procedure was performed under the direct supervision of Dr. Cruz. The patient has a history of a loculated subhepatic fluid collection measuring 7.9 x 4.2 x 7.[address] a previous [address] scan dated 04/21/2020. The risks and benefits of the procedure were explained to the patient and informed consent was obtained. The subhepatic fluid collection was localized using ultrasound guidance. The skin was prepped and draped in a sterile fashion. 1% Lidocaine was used as a local anesthetic. Using ultrasound guidance, a 10-[place] Skater APDL catheter was inserted using trocar technique. 20 mL of low viscosity red colored fluid was withdrawn and sent to the lab for analysis. The catheter was affixed to the skin and a sterile dressing was applied. The catheter was connected to a gravity drainage bag. The patient tolerated the procedure well and there were no immediate complications. After the appropriate amount of monitored convalescence, the patient was discharged from the department. ED
[2020-05-05 22:07] LABS: HEMOGLOBIN 10.9 g/dl (12.0-15.5); MEAN CORPUSCULAR HEMOGLOBIN 29.6 pg (27.0-33.0); MEAN CORPUSCULAR HGB CONC 34.1 g/dl (32.0-36.5); PLATELET COUNT, AUTOMATED 76 10^3/uL (150-450); RED BLOOD COUNT 3.68 10^6/uL (4.00-5.40); WHITE BLOOD COUNT 13.7 10^3/uL (4.0-10.0)
[2020-05-05 22:08] LABS: PLATELET ESTIMATE DECREASED (NORMAL); POLYCHROMASIA 1+
--- NOTE | 2020-05-12 15:30 | IPN ---
DATE: 04/15/2020 Mable feels much better today. She states the wound vacuum assisted closure (VAC) has given her much more relief, she does not feel as bloated. She was able to get out of bed. She has been afebrile for 48 hours. Temperature is 98.3, pulse 92, respirations 20, oxygen saturation 95% on room air, blood pressure 140/62. Heart: Normal S1, S2, no murmurs. Lungs: Anteriorly clear, no wheezes, rales, or rhonchi. Abdomen: Obese, soft, mildly tender around the wound VAC but better than yesterday. Extremities: No clubbing, cyanosis, or edema. No calf tenderness. Procalcitonin on 04/14/2020 was 0.6, lactic acid was 0.9. IMPRESSION: 1. Status post colectomy with ileostomy for ischemic colitis with postoperative fever, slightly elevated procalcitonin. Patient on IV Levaquin and metronidazole. Wound culture has been obtained from lower aspect of abdominal wound where there was some tracking of fluid. The cultures are still pending, but if patient is afebrile with normal white count I would not switch her antibiotics at this time. 2. CT findings of pneumonia with air bronchogram although patient does not have a cough, shortness of breath, or hypoxia so I am not sure if this is more related to atelectasis and from abdominal wound. PLAN: Continue with IV levofloxacin and metronidazole. Will continue to follow. Patient is being transferred to medical/surgical floor. Continue with vacuum assisted closure (VAC). ED
--- NOTE | 2020-05-12 15:39 | IPN ---
DATE: 04/17/2020 Mable is doing well. She has some abdominal pain from the wound vacuum assisted closure (VAC), but otherwise is doing well. No fever or chills. No nausea, vomiting, or diarrhea. No chest pain or shortness of breath. PHYSICAL EXAMINATION: She is in no acute distress. Heart: Normal S1, S2 with a systolic ejection murmur 3/6. Lungs: Clear, no wheezes, rales, or rhonchi. Abdomen: Soft, mildly tender around the wound VAC site. Open abdominal wound from xiphoid process to the suprapubic area. Extremities: No clubbing, cyanosis, or edema. LABORATORY DATA: White count 9.3, hemoglobin 8.5, hematocrit 28.6, platelets 330. ESR on 04/14/2020 was 89. Sodium 142, potassium 3.6, chloride 120, bicarbonate 18, BUN 4, creatinine 0.92, glucose 93, calcium 7.1. Wound culture from 04/14/2020 was negative. Urine culture was negative. Chest CT, abdomen and pelvis had shown a pneumonia with consolidation and air bronchogram. MEDICATIONS: - metronidazole 500 mg IV every 8 hours - levofloxacin 750 mg IV every 24 hours IMPRESSION: 1. Pneumonia by CT even though clinically patient does not have any pulmonary symptoms. Patient on Levaquin and Flagyl doing well. 2. Wound dehiscence status post colectomy for ischemic colitis. Wound culture negative, no evidence of infection. PLAN: Patient could be switched to oral Levaquin and Flagyl and transferred back to acute rehabilitation. Please continue 7 day course of antibiotics. MTDD
--- NOTE | 2020-05-12 15:43 | IPN ---
DATE: 04/23/2020 Patient was transferred to the floor last week and essentially had been seeing her on the floor and she has been doing well with her wound vacuum assisted closure (VAC) in place and had done well over the weekend with the wound VAC in place, however her white count spiked to 13,000. She did get a followup CT scan on 04/21/2020 that showed some fluid around the liver and at that point although she did not appear septic to me, she still did have a low blood pressure, her white count was elevated, and thus etiology for her elevated white count was undetermined at that time. Given the fluid and somewhat of a rim enhancement, the patient then had an ultrasound-guided placement of a needle into this fluid and it appears to be not turbid but mostly old bloody fluid and was probably a hematoma from the original operation. In any case, she has been stable and been transferred from intensive care unit (ICU) to progressive care unit (PCU) and to the floor. Her ostomy is still putting out a lot of stool. They have still had some significant difficulties with placing the ostomy appliance on this given it is in a fold in her abdominal wall. But, the wound VAC has been slowly closing up the midline quite nicely and has not been affected by the ostomy itself. IMPRESSION/PLAN: Patients abdomen is soft, nondistended, nontender, her ostomy is putting out fine amounts and she is stable. I do feel that continuing with this current treatment is reasonable for right now and we will see how she does with this. I am not convinced the fluid was infected but we are waiting on some cultures from the aspiration that was performed. ED
--- NOTE | 2020-05-12 15:46 | IPN ---
DATE: 04/24/2020 White count has been stable at 10.4 and overall the Pan-Jim (LYNDA) drainage has not been a significant amount. However, I took a look at the ostomy and it has always had a great deal of stool coming out of the ostomy after the first few days and thus with the stool output I could see some pink fluid tinged area under this, but obviously what has occurred is that the ostomy itself has retracted significantly and there is some granulation tissue along the skin edges and some inflammatory changes along this area, and this may be a component of why there is some slightly elevated white count here, but I am not seeing any abscess formation and no evidence of cellulitis in this area, but this may be why she is having this persistent low grade inflammatory response. I do feel that unfortunately she has such bad albumin and just such total anasarca that any operative intervention at this time would be fraught with significant difficulty postoperatively healing. Thus, at this point she is not leaking intra-abdominally. She is adequately draining that I do feel that this is something that we will have to be concerned about and watching, but I would say that intervention at this time could be fraught with significant problems and overall she is so frail and not doing well from an almost failure to thrive standpoint, that I would feel that an operative intervention would even set her back further, and I think there would be a significant likelihood that she would not recover significantly well from this and would need some prolonged long term care. We are seeing some healing on the midline wound. Once we get this well enough healed, the question is whether when she is stabilized, and we are far enough out, could she have, instead of a new ostomy placed, something put back together. Her best option may need to be something like a robotic repair and that is something I do not perform and we may need to get her to the colorectal surgeons for additional recommendation/treatment for this in [place] at some point in the future. However, at this time, we will continue with her current treatment and continue with the wound vacuum assisted closure (VAC). From the drain standpoint, it has put out a significantly decreased amount since yesterday and overall this appears to be more serosanguinous old blood and I anticipate that this will be a non-infected source and resolving hematoma. ED
--- NOTE | 2020-05-12 15:49 | IPN ---
DATE: 04/25/2020 SUBJECTIVE: Patient seems to be doing well from an overall strength standpoint. She has been afebrile. Her white count still is slightly elevated. Her hematocrit is still on the low side, but really has not budged too much. From a chemistry standpoint, her albumin is still very low. She is getting the TPN and tolerating this with supplementing with her own p.o. intake, although she really does not take much for p.o. intake. From her midline incision standpoint, this is actually coming together relatively well with the wound VAC, and I am pleasantly surprised and happy that this is working this way. The ostomy is still putting out. There is no surrounding cellulitis. There is some abdominal wall edema and this has been her baseline status, but I am not seeing any other significant abnormality present. Thus, at this point, we will continue with supportive care and will be available should any additional issues develop. Her other issue obviously is that drain that is in place. I am not seeing a lot of drainage at this point and it is probably reasonable to discontinue that drain tomorrow morning if it continues with decreased output as it is at this point. ED
--- NOTE | 2020-05-20 10:07 | ECGEPIP ---
[facility] Test Date: 2020-04-14 Pat Name: DUY RODRIGUEZ Department: Room: [place] [address] Gender: Female Vp [employer]: TEJ : 1955 Requested By: GERRY ARRIOLA Order Number: [id number] Reading MD: Abhinav Theodore Measurements Intervals [place] Rate: 77 P: 30 MN: 159 QRS: -3 QRSD: 91 T: 14 QT: 313 QTc: 355 Interpretive Statements SINUS RHYTHM MODERATE VOLTAGE CRITERIA FOR LVH, CONSIDER NORMAL VARIANT NONSPECIFIC T-WAVE ABNORMALITY BORDERLINE ECG NO PRIOR IN THE SYSTEM SEE SCANNED DOWNTIME REPORT
--- NOTE | 2020-05-25 14:00 | REP ---
PELVIC RADIOGRAPH: CLINICAL: Trauma, fall. TECHNIQUE: Single AP view of the pelvis. FINDINGS: The osseous structure are intact and there is no evidence for acute fracture or dislocation. Post surgical changes are appreciated, including ostomy overlying the right pelvis. IMPRESSION: No acute fracture or dislocation. MTDD
[2020-06-18] MEDS ORDERED: NEXI40CA PO (15:51)
[2020-06-18] MEDS ORDERED: ALBU83IN INH (15:51)
[2020-06-18] MEDS ORDERED: CELE100C PO (15:51)
[2020-06-18] MEDS ORDERED: WELLTAB38 PO (15:51)
[2020-06-18] MEDS ORDERED: PERC10TA26 PO (15:51)
[2020-06-18] MEDS ORDERED: CO Q200C10 PO (15:51)
[2020-06-18] MEDS ORDERED: DETR4CAP PO (15:51)
[2020-06-18] MEDS ORDERED: OYST500T12 PO (15:51)
[2020-06-18] MEDS ORDERED: SING10TA32 PO (15:51)
[2020-07-06 13:02] LABS: ALBUMIN 1.7 GM/DL (3.2-5.2); ALT/SGPT 29 U/L (12-78); BILIRUBIN,TOTAL 0.3 MG/DL (0.2-1.0); BLOOD UREA NITROGEN 8 MG/DL (7-18); CARBON DIOXIDE LEVEL 19 MEQ/L (21-32); CHLORIDE LEVEL 115 MEQ/L (98-107); CHOLESTEROL LEVEL 69 MG/DL (<200); CHOLESTEROL RISK RATIO 2.653 (<5); CREATININE FOR GFR 0.85 MG/DL (0.55-1.30); GLOMERULAR FILTRATION RATE > 60.0 (>45); GLUCOSE, FASTING 101 MG/DL (70-100); HDL CHOLESTEROL 26 MG/DL (>40); HEMOGLOBIN A1c 5.1 %; LDL CHOLESTEROL 20 MG/DL (<100); MAGNESIUM LEVEL 1.9 MG/DL (1.8-2.4); NON-HDL-C 43 MG/DL; PHOSPHORUS LEVEL 2.2 MG/DL (2.5-4.9); POTASSIUM SERUM 3.6 MEQ/L (3.5-5.1); SODIUM LEVEL 139 MEQ/L (136-145); TOTAL 25(OH) VITAMIN D 29.6 NG/ML (30.0-100.0); TOTAL PROTEIN 4.8 GM/DL (6.4-8.2); TRIGLYCERIDES LEVEL 113 MG/DL (<150)
[2020-07-06 13:02] LABS: ALBUMIN 1.7 GM/DL (3.2-5.2); ALT/SGPT 30 U/L (12-78); BILIRUBIN,TOTAL 0.3 MG/DL (0.2-1.0); BLOOD UREA NITROGEN 7 MG/DL (7-18); CALCIUM LEVEL 7.2 MG/DL (8.8-10.2); CARBON DIOXIDE LEVEL 19 MEQ/L (21-32); CHLORIDE LEVEL 116 MEQ/L (98-107); GLOMERULAR FILTRATION RATE > 60.0 (>45); GLUCOSE, FASTING 85 MG/DL (70-100); POTASSIUM SERUM 3.6 MEQ/L (3.5-5.1); SODIUM LEVEL 140 MEQ/L (136-145); TOTAL PROTEIN 4.9 GM/DL (6.4-8.2)
== END 2020-04-29 16:50 | DRG 919 ==
LOC: M PCU 21:50 → M MSPAV 04-18 19:04 → M ICU 04-21 16:01 → M MS5PR 04-23 01:30
PROVIDERS: ADMIT Internal Medicine; ATTEND Internal Medicine
PROC: 3E0436Z Introduction of Nutritional Substance into Central Vein, Percutaneous Approach (ICD-10-PCS; 2020-04-23)
PROC: 02HV33Z Insertion of Infusion Device into Superior Vena Cava, Percutaneous Approach (ICD-10-PCS; principal; 2020-04-23 13:00)
PROC: 0W9G30Z Drainage of Peritoneal Cavity with Drainage Device, Percutaneous Approach (ICD-10-PCS; 2020-04-24)
DX: K91.872 Postprocedural seroma of a digestive system organ or structure following a digestive system procedure (principal); J18.9 Pneumonia, unspecified organism; J96.01 Acute respiratory failure with hypoxia; R53.1 Weakness; I48.91 Unspecified atrial fibrillation; I35.0 Nonrheumatic aortic (valve) stenosis; I95.9 Hypotension, unspecified; I10 Essential (primary) hypertension; M79.7 Fibromyalgia; Z88.0 Allergy status to penicillin; Z88.1 Allergy status to other antibiotic agents; M34.9 Systemic sclerosis, unspecified; Z79.01 Long term (current) use of anticoagulants; Z90.49 Acquired absence of other specified parts of digestive tract; Z79.899 Other long term (current) drug therapy; Y83.8 Other surgical procedures as the cause of abnormal reaction of the patient, or of later complication, without mention of misadventure at the time of the procedure

== ENCOUNTER 2020-04-29 15:02 | Inpatient (IN) | payer MEDICARE, OTHER ==
[~2020-04-29] VITALS: Ht 149.9 cm; Wt 63.1 kg
[~2020-04-29 15:02] MED LIST changes: +AMIO200T3 PO; -AMIODARONE 200 MG TAB (PACERONE) ONE; -APIXABAN 5 MG TAB (ELIQUIS) ONE; +ATEN25TA PO; +CARV12.5 PO; +DETR2CAP PO; -DULoxetine 30 MG CAP (CYMBALTA) ONE; +ELIQ5TAB PO; +FLEEENE12 PR; +FURO40TA2 PO; -GABAPENTIN 300 MG CAP ONE; +GNP250TA9 PO; -IPRATROPIUM 0.5MG/ALBUTEROL 2.5MG INH SOL UD 3ML (DUONEB) ONE; -LACTOBACILLUS ACIDOPHILUS CAP (BACID) ONE; +LORA-674 PO; -LORATADINE 10 MG TAB ONE; -LevoFLOXacin 750MG/150ML IV BAG (J1956 PER 250MG) ONE; +OLAN2.5T25 PO; -PANTOPRAZOLE 40MG TAB (PROTONIX) ONE; +RISATAB3 PO; -ROSUVASTATIN 10 MG TAB (CRESTOR) ONE; +SENN-80 PO; +VITA-145 PO; +ZOLP5TAB PO; -guaiFENesin 200 MG TAB ONE
[2020-04-29 17:31] VITALS: BP 101/55
[2020-04-29] MEDS ORDERED: ACETAMINOPHEN TAB 650MG DOSE (2X325MG) PO PRN (17:45)
[2020-04-29] MEDS: IPRATROPIUM 0.5MG/ALBUTEROL 2.5MG INH SOL UD 3ML (DUONEB) NEB SCH (18:19)
[2020-04-29 20:00] VITALS: BP 102/57
[2020-04-29] MEDS: SODIUM CHLORIDE NASAL 0.65% SPRAY BTL (OCEAN) SCH (20:34)
[2020-04-29] MEDS: FLUTICASONE PROP 0.05% NASAL SPRAY 16 GM (FLONASE) NARES SCH (20:34)
[2020-04-29] MEDS: ESOMEPRAZOLE 40 MG PO SCH (20:35)
[2020-04-29] MEDS: LACTOBACILLUS ACIDOPHILUS CAP (BACID) PO SCH (20:35)
[2020-04-29] MEDS: OLANZapine 2.5MG TABLET PO SCH (20:35)
[2020-04-29] MEDS: APIXABAN 5 MG TAB (ELIQUIS) PO SCH (20:35)
[2020-04-29] MEDS: DULoxetine 30 MG CAP (CYMBALTA) PO SCH (20:35)
[2020-04-29] MEDS: ROSUVASTATIN 10 MG TAB (CRESTOR) PO SCH (20:35)
[2020-04-29] MEDS: LORATADINE 10 MG TAB PO SCH (20:35)
[2020-04-29] MEDS: DOCUSATE SODIUM 100 MG CAP PO SCH (20:36)
[2020-04-29] MEDS: NORCO, ANEXSIA 5/325MG TABLET (HYDROcodone/ACETAMINOPHEN) PO PRN (20:36)
[2020-04-29] MEDS: GABAPENTIN 300 MG CAP PO SCH (20:36)
[2020-04-29] MEDS: REMEDY PHYTOPLEX Z-GUARD PASTE 113GM TUBE (FROM STOREROOM PRODUCT) TOP SCH (20:36)
[2020-04-30] MEDS: NORCO, ANEXSIA 5/325MG TABLET (HYDROcodone/ACETAMINOPHEN) PO PRN ×3 (03:02→20:52)
[2020-04-30 06:21] VITALS: BP 128/68
[2020-04-30] MEDS ORDERED: ONDANSETRON 4 MG TAB PO ONE (06:45)
[2020-04-30 06:59] LABS: BASO # 0.1 10^3/uL (0.0-0.2); BASO % 0.4 % (0.0-1.0); EOS % 0.4 % (0.0-3.0); HEMATOCRIT 28.7 % (36.0-47.0); HEMOGLOBIN 8.9 g/dl (12.0-15.5); LYMPH # 1.3 10^3/uL (1.5-5.0); MEAN CORPUSCULAR HEMOGLOBIN 29.2 pg (27.0-33.0); MEAN CORPUSCULAR VOLUME 94.1 fl (80.0-96.0); MONO % 8.8 % (0.0-5.0); NEUTROPHILS # 8.6 10^3/uL (1.5-8.5); NEUTROPHILS % 77.4 % (36.0-66.0); PLATELET COUNT, AUTOMATED 223 10^3/uL (150-450); RED BLOOD COUNT 3.05 10^6/uL (4.00-5.40); WHITE BLOOD COUNT 11.1 10^3/uL (4.0-10.0)
[2020-04-30 07:25] LABS: ALBUMIN 1.9 GM/DL (3.2-5.2); ALT/SGPT 8 U/L (12-78); BILIRUBIN,TOTAL 0.3 MG/DL (0.2-1.0); BLOOD UREA NITROGEN 9 MG/DL (7-18); CARBON DIOXIDE LEVEL 29 MEQ/L (21-32); CHLORIDE LEVEL 103 MEQ/L (98-107); GLOMERULAR FILTRATION RATE > 60.0 (>45); GLUCOSE, FASTING 103 MG/DL (70-100); POTASSIUM SERUM 4.1 MEQ/L (3.5-5.1); SODIUM LEVEL 137 MEQ/L (136-145); TOTAL PROTEIN 5.7 GM/DL (6.4-8.2)
[2020-04-30] MEDS: IPRATROPIUM 0.5MG/ALBUTEROL 2.5MG INH SOL UD 3ML (DUONEB) NEB SCH ×3 (07:35→17:56)
[2020-04-30] MEDS: ATENOLOL 12.5MG PER 1/2 TABLET PO SCH (09:00)
[2020-04-30] MEDS: FUROSEMIDE 40 MG TAB PO SCH (09:00)
[2020-04-30] MEDS: DOCUSATE SODIUM 100 MG CAP PO SCH ×2 (09:00→20:51)
[2020-04-30] MEDS: VITAMIN D 1,000 INTERNATIONAL UNITS TABLET PO SCH (11:08)
[2020-04-30] MEDS: TOLTERODINE TARTRATE 2 MG LA CAP (DETROL LA) PO SCH (11:08)
[2020-04-30] MEDS: MAGNESIUM OXIDE 400 MG TAB (MAG-OX) PO SCH (11:08)
[2020-04-30] MEDS: ESOMEPRAZOLE 40 MG PO SCH ×2 (11:08→20:53)
[2020-04-30] MEDS: GABAPENTIN 300 MG CAP PO SCH ×3 (11:08→20:51)
[2020-04-30] MEDS: APIXABAN 5 MG TAB (ELIQUIS) PO SCH ×2 (11:09→20:51)
[2020-04-30] MEDS: FOLIC ACID 1 MG TAB PO SCH (11:09)
[2020-04-30] MEDS: AMIODARONE 200 MG TAB (PACERONE) PO SCH (11:09)
[2020-04-30] MEDS: OLANZapine 2.5MG TABLET PO SCH ×2 (11:09→20:51)
[2020-04-30] MEDS: SODIUM CHLORIDE NASAL 0.65% SPRAY BTL (OCEAN) SCH ×2 (11:09→20:53)
[2020-04-30] MEDS: LACTOBACILLUS ACIDOPHILUS CAP (BACID) PO SCH ×3 (11:09→20:51)
[2020-04-30] MEDS: DULoxetine 30 MG CAP (CYMBALTA) PO SCH ×2 (11:09→20:51)
[2020-04-30] MEDS: FLUTICASONE PROP 0.05% NASAL SPRAY 16 GM (FLONASE) NARES SCH ×2 (11:10→20:53)
[2020-04-30] MEDS: REMEDY PHYTOPLEX Z-GUARD PASTE 113GM TUBE (FROM STOREROOM PRODUCT) TOP SCH ×3 (11:10→20:53)
[2020-04-30] MEDS ORDERED: ONDANSETRON 4 MG ORAL DISINTEGRATING TAB PO PRN (11:15)
--- NOTE | 2020-04-30 13:33 | HPEPDOC ---
[employer] Note DATE OF ADMISSION: 04-29-20 DATE OF SERVICE: 04-30-20 TIME OF ADMISSION: Please refer to physician's admission order. SOURCE OF ADMISSION INFORMATION: [facility] record and patient CHIEF COMPLAINT:s/p subtotal colectomy with sepsis HISTORY OF PRESENT ILLNESS: 65F pmh aortic stenosis, newly diagnosed Afib on eliquis, HTN, scleroderma, fibromyalgia, chronic pain syndrome who underwent a subtotal colectomy on 03-28-20 for ischemic bowel after which she was transferred to inpatient rehab on antibiotics for suspected bowel infection. She was transferred out on 04-13-20 for sepsis with suspected pneumonia and CT abdomen showing a possible abscess vs seroma in the right lateral side of her abdomen. She was started with a wound vac to promote better incision site healing and seen by ID who recommended continuation of Flagyl and Levaquin pending blood culture results. She had drainage performed of her subhepatic fluid collection with negative gram stain and her antibiotics were discontinued after 10 days. She was again evaluated by therapy, still noted to have impairments in mobility and ADLs and deemed medically appropriate for discharge to ARU on 04-29-20. REVIEW OF SYSTEMS: The following is a completed review of systems and has been reviewed. Review of systems otherwise unremarkable. PAIN: Patient self reports generalized pain EYES: No recent vision changes EARS, NOSE, & THROAT: No throat pain, or dysphagia, or rhinorrhea CARDIOVASCULAR: Denies chest pain or palpitations PULMONARY: Denies shortness of breath GASTROINTESTINAL: +colostomy GENITOURINARY: denies dysuria MUSCULOSKELETAL: generalized weakness NEUROLOGICAL: denies paresthesias HEMATOLOGICAL: denies easy bruising, +chronic anemia SKIN: +colostomy, sacral erythema, abdominal incision PSYCHIATRIC: Unremarkable All other review of systems found to be negative. PAST MEDICAL HISTORY: as per HPI PAST SURGICAL HISTORY: as per HPI ALLERGIES: Please see below. MEDICATIONS: Please see below. SOCIAL HISTORY: denies etoh/smoking/illicit drugs DIET: regular diet PHYSICAL EXAMINATION: VITAL SIGNS: Please see below. GENERAL: Pleasant and cooperative. No acute distress. HEENT: PERRL. Extraocular movements intact. Clear conjunctiva CARDIOVASCULAR: Regular rate and rhythm. No murmurs, rubs, or gallops LUNGS: Clear to auscultation bilaterally. No wheezes. No rhonchi ABDOMEN: Soft, mildly TTP near incision site, +colsotomy and vertical wound vac, +bowel sounds NEUROLOGICAL: Alert and oriented times three. Cranial nerves II through XII grossly intact. Sensation grossly intact in all 4limbs EXTREMITIES: 5\5 strength bilateral upper extremities. 5-\5 strength right lower extremity. 5-/5 strength in left lower extremity. SKIN: sacral erythema (blanchable), vertical incision with wound vac in place- no periwound induration/erythema LABORATORY DATA: Please see below. IMAGING:Imaging documentation personally reviewed by record FUNCTIONAL STATUS: Premorbid: Independent with all activities of daily life as well as mobility On Admission: Contact guard for functional transfers and ambulation, dressing, toileting, requires assistance with wound vac GOALS: Mod-I for ambulation with RW, functional transfers, stairs, dressing, toileting, bathing ASSESSMENT:65-year-old F with past medical history of Afib who presents status post subtotal colectomy complicated by sepsis PLAN: 1. Rehab- PT/OT advance mobility and ADLs, work on colostomy care 2. Neuro- monitor for delirium, patient with fluctuating levels of confusion, may be baseline or related to chronic opioid use, c/u Zyprexa and monitor for infectious source 3. CArdiac- c/u eliquis, Atenolol, and amiodarone for Afib, medicine following along -HLD c/u statin 4. Resp- c/u duonebs and incentive spirometry, monitor for infection 5. GI- s/p subtotal colectomy 03-28-20 with subhepatic fluid drainage, completed course of Cipro and Flagyl, monitor for infection, f/u surgery on d/c -c/u wound vac -Bacid 6. DVT ppx- on eliquis 7. Pain- c/u Cymbalta, [place], gabapentin, and Tylenol 8. Dispo- TBD POST ADMISSION PHYSICIAN EVALUATION: Medical and functional status: Description of medical status, medical assessmen t: As above. Rehabilitation diagnosis and current and prior cold morbid medical conditions as above. Risk of complications and plans to mitigate them as above. Description of functional status current status is as above. Prior status as above. Status compared to preadmission: There are no clinically significant differences between the patient's current status and the information described on the preadmission screening document. Treatment plan anticipated: Treatment plan is as described above. Required disciplines including physical therapy, occupational therapy, others as noted above. Intensity of services: 3 hours a day, 6 days a week. Special considerations: There are no specific special or safety considerations that would likely preclude immediate implementation of an intensive rehabil itation program or subsequently influence the plan of care. ATTESTATION: Considering all the information above, it is my best judgment that this patient requires intensive rehabilitation therapy as described above and an inpatient hospital environment due to the complexity of nursing, medical, and rehabilitation needs required by the patient. Furthermore, this patient can reasonably be expected to participate in an benefit from an inpatient rehabilitation stay with an interdisciplinary team approach to the delivery of rehabilitation care under the direction and supervision of johanna cat. PROGNOSIS: good ESTIMATED LENGTH OF STAY:10-14 days. PROJECTED DISCHARGE DESTINATION: Home with family support and any durable medical equipment required to increase functional safety and mobility. TIME SPENT COUNSELING AND COORDINATING INITIAL CARE: Greater than 70 minutes. Vital Signs Vital Sign - Last 24 Hours 04/29/20 04/29/20 04/29/20 04/29/20 17:31 20:00 20:36 21:10 Temp 97.5 98.1 Pulse 92 76 Resp 18 17 18 18 B/P (MAP) 101/55 (70) 102/57 (72) Pulse Ox 93 97 O2 Delivery Room Air Room Air Room Air Room Air 04/30/20 04/30/20 04/30/20 04/30/20 03:02 03:40 06:21 09:00 Temp 98.6 Pulse 94 Resp 18 18 18 B/P (MAP) 128/68 (88) 98/62 Pulse Ox 91 O2 Delivery Room Air Room Air Room Air 04/30/20 04/30/20 10:12 10:45 Resp 17 16 O2 Delivery Room Air Room Air Laboratory Data CBC/BMP Laboratory Tests 04/30/20 06:30 Labs 24H Laboratory Tests 2 04/30/20 06:30: Immature Granulocyte % (Auto) 1.0, Neutrophils (%) (Auto) 77.4H, Lymphocytes (%) (Auto) 12.0L, Monocytes (%) (Auto) 8.8H, Eosinophils (%) (Auto) 0.4, Basophils (%) (Auto) 0.4, Neutrophils # (Auto) 8.6H, Lymphocytes # (Auto) 1.3L, Monocytes # (Auto) 1.0H, Eosinophils # (Auto) 0.0, Basophils # (Auto) 0.1, Nucleated Red Blood Cells % (auto) 0.2H, Anion Gap 5L, Glomerular Filtration Rate > 60.0, Calcium Level 8.0L, Total Bilirubin 0.3, Aspartate Amino Transf (AST/SGOT) 17, Alanine Aminotransferase (ALT/SGPT) 8L, Alkaline Phosphatase 82, Total Protein 5.7L, Albumin 1.9L, Albumin/Globulin Ratio 0.5L Home Medications Scheduled Amiodarone HCl (Amiodarone HCl) 200 Mg Tablet, 200 MG PO DAILY Apixaban (Eliquis) 5 Mg Tablet, 5 MG PO BID Aspirin (Aspir 81) 81 Mg Tablet.dr, 81 MG PO QHS, (Reported) Atenolol (Atenolol) 25 Mg Tablet, 12.5 MG PO DAILY Cholecalciferol (Vitamin D3) (Vitamin D3) 25 Mcg Tablet, 25 MCG PO DAILY, (Reported) Duloxetine Hcl (Duloxetine HCl) 30 Mg Capsule.dr, 60 MG PO QHS, (Reported) Duloxetine Hcl (Duloxetine HCl) 30 Mg Capsule.dr, 30 MG PO QAM, (Reported) Esomeprazole Magnesium (Nexium) 40 Mg Cap, 40 MG PO BID, (Reported) Folic Acid (Folic Acid) 1 Mg Tablet, 1 MG PO DAILY, (Reported) Furosemide (Furosemide) 40 Mg Tablet, 1 TAB PO DAILY Hold for SBP < 110 Gabapentin (Gabapentin) 300 Mg Capsule, 300 MG PO TID, (Reported) L.acidoph/L.bulg/B.bif/S.therm (Jaquelin-Bid Caplet) 1 Each Tablet, 1 EA PO TID Loratadine (Loratadine) 10 Mg Tablet, 10 MG PO QHS, (Reported) Magnesium Oxide (Magnesium) 250 Mg Tablet, 1 TAB PO DAILY, (Reported) Olanzapine (Olanzapine) 2.5 Mg Tablet, 2.5 MG PO BID Rosuvastatin Calcium (Rosuvastatin Calcium) 10 Mg Tablet, 10 MG PO QHS, (Reported) Tolterodine Tartrate (Detrol LA) 2 Mg Cap.er.24h, 2 MG PO DAILY Zolpidem Tartrate (Zolpidem Tartrate) 5 Mg Tablet, 5 MG PO QHS, (Reported) Scheduled PRN Hydrocodone/Acetaminophen (Hydrocodone-Acetamin 10-325 mg) 1 Each Tablet, 1 TAB PO QID PRN for PAIN, (Reported) Sennosides (Senna) 8.6 Mg Tablet, 43 MG PO QHS PRN for CONSTIPATION, (Reported) Allergies Coded Allergies: Penicillins (Verified Allergy, Severe, anyphylaxis, 07/30/19) Cephalosporins (Verified Adverse Reaction, Severe, red man syndrome, 04/29/20) A-FIB/CHADSVASC A-FIB History Current/History of A-Fib/PAF?: Yes Current PO Anticoag Therapy: Yes EDIE TORRES MD Apr 30, 2020 13:33
[2020-04-30 14:00] VITALS: BP 108/59
[2020-04-30 20:00] VITALS: BP 103/59
[2020-04-30] MEDS: ROSUVASTATIN 10 MG TAB (CRESTOR) PO SCH (20:51)
[2020-04-30] MEDS: LORATADINE 10 MG TAB PO SCH (20:51)
[2020-05-01] MEDS: zolPIDEM TARTRATE 5 MG TAB PO PRN ×2 (00:53→21:08)
[2020-05-01] MEDS: NORCO, ANEXSIA 5/325MG TABLET (HYDROcodone/ACETAMINOPHEN) PO PRN ×4 (00:56→21:09)
[2020-05-01 06:00] VITALS: BP 113/68
--- NOTE | 2020-05-01 06:58 | CR.PDOC ---
General Date of Consultation: May 01, 2020 Attending Physician: WINSTON HOSKINS MD Consultation REASON FOR CONSULTATION/CHIEF COMPLAINT: Admission to ARU. HISTORY OF PRESENT ILLNESS: . ALLERGIES: Please see below. HOME MEDICATIONS: Please see below. PAST MEDICAL HISTORY: 1. HTN 2. Scleroderma 3. Fibromyalgia 4. Chronic pain syndrome PAST SURGICAL HISTORY: Seroma drainage, s/p wound vac, ostomy. Right carotid endarterectomy. She has a history of cervical fusion. She has a history of cholecystectomy. section. Hysterectomy. FAMILY HISTORY: Brother hx of mesothelioma SOCIAL HISTORY: Quit smoking 6 years ago. Uses e-cigarettes Does not use any alcohol REVIEW OF SYSTEMS: CONSTITUTIONAL: none HEENT: none. CARDIOVASCULAR: none. RESPIRATORY: none. GENITOURINARY: none. MUSCULOSKELETAL: c/o back pain. GASTROINTESTINAL: stoma functioning, semi solid output. SKIN: none. NEUROLOGICAL: none. PSYCHIATRIC: none. ENDOCRINE: none. HEMATOLOGIC/LYMPHATIC: none. ALLERGIC/IMMUNOLOGIC: none. PHYSICAL EXAMINATION: VITAL SIGNS: Please see below. GENERAL APPEARANCE: NAD, comfortable HEENT: PERRLA, eomi. RESPIRATORY: lungs CTAB. CARDIOVASCULAR: RRR, normal S1, s2. ABDOMEN: wound vac, RLQ stoma, retracted. EXTREMITIES: no edema. NEUROLOGICAL: no focal neuro deficits. PSYCHIATRIC: AAO x 3, calm, cooperative. LABORATORY DATA: Please see below. ASSESSMENT/PLAN: 1. Subhepatic seroma/hematoma: s/p subtotal colectomy for SBO. s/p drainage. afebrile. VSS. completed course of abx. wound vac in place. Surgery as outpatient. 2. Generalized weakness: deconditioning. active PT at ARU. 3. Afib: rate control with amiodarone, atenolol. Eliquis for AC. 4. HTN: c/w atenolol 5. Dyslipidemia: crestor 6. Chronic pain syndrome: cymbalta, gabapentin, tylenol. Given fluctuating levels of cog, recommend avoidance of sedating medications eg narcotics at this time. DVT ppx: eliquis. Thank you for involving us in the care of this patient. Please re-consult as necessary. Vital Signs/I&O Vital Signs Date Time Temp Pulse Resp B/P (MAP) Pulse Ox O2 Delivery O2 Flow Rate FiO2 05/01/20 06:20 18 Room Air 04/30/20 20:00 98.0 104 103/59 (33) 53 I&O- Last 24 Hours up to 6 AM 05/01/20 05:59 Intake Total 1320 ml Output Total 1250 ml Balance 70 ml Allergies Coded Allergies: Penicillins (Verified Allergy, Severe, anyphylaxis, 07/30/19) Cephalosporins (Verified Adverse Reaction, Severe, red man syndrome, 04/29/20) Home Medications Scheduled Amiodarone HCl (Amiodarone HCl) 200 Mg Tablet, 200 MG PO DAILY for 30 Days, #30 Apixaban (Eliquis) 5 Mg Tablet, 5 MG PO BID for 30 Days, #60 Aspirin (Aspir 81) 81 Mg Tablet.dr, 81 MG PO QHS, (Reported) Atenolol (Atenolol) 25 Mg Tablet, 12.5 MG PO DAILY for 30 Days, #30 Cholecalciferol (Vitamin D3) (Vitamin D3) 25 Mcg Tablet, 25 MCG PO DAILY, (Reported) Duloxetine Hcl (Duloxetine HCl) 30 Mg Capsule.dr, 60 MG PO QHS, (Reported) Duloxetine Hcl (Duloxetine HCl) 30 Mg Capsule.dr, 30 MG PO QAM, (Reported) Esomeprazole Magnesium (Nexium) 40 Mg Cap, 40 MG PO BID, (Reported) Folic Acid (Folic Acid) 1 Mg Tablet, 1 MG PO DAILY, (Reported) Furosemide (Furosemide) 40 Mg Tablet, 1 TAB PO DAILY for 30 Days, #30 Hold for SBP < 110 Gabapentin (Gabapentin) 300 Mg Capsule, 300 MG PO TID, (Reported) L.acidoph/L.bulg/B.bif/S.therm ([place]-Bid [place]) 1 Each Tablet, 1 EA PO TID for 30 Days, #90 Loratadine (Loratadine) 10 Mg Tablet, 10 MG PO QHS, (Reported) Magnesium Oxide (Magnesium) 250 Mg Tablet, 1 TAB PO DAILY for 30 Days, #30 (Reported) Olanzapine (Olanzapine) 2.5 Mg Tablet, 2.5 MG PO BID for 30 Days, #60 Rosuvastatin Calcium (Rosuvastatin Calcium) 10 Mg Tablet, 10 MG PO QHS, (Reported) Tolterodine Tartrate (Detrol LA) 2 Mg Cap.er.24h, 2 MG PO DAILY for 30 Days, #30 Zolpidem Tartrate (Zolpidem Tartrate) 5 Mg Tablet, 5 MG PO QHS, (Reported) Scheduled PRN Hydrocodone/Acetaminophen (Hydrocodone-Acetamin 10-325 mg) 1 Each Tablet, 1 TAB PO QID PRN for PAIN, (Reported) Sennosides (Senna) 8.6 Mg Tablet, 43 MG PO QHS PRN for CONSTIPATION, (Reported) WINSTON HOSKINS MD May 01, 2020 06:58
[2020-05-01] MEDS: DULoxetine 30 MG CAP (CYMBALTA) PO SCH ×2 (07:48→21:08)
[2020-05-01] MEDS: OLANZapine 2.5MG TABLET PO SCH ×2 (07:49→21:08)
[2020-05-01] MEDS: GABAPENTIN 300 MG CAP PO SCH ×3 (07:49→21:08)
[2020-05-01] MEDS: DOCUSATE SODIUM 100 MG CAP PO SCH ×2 (07:49→19:35)
[2020-05-01] MEDS: MAGNESIUM OXIDE 400 MG TAB (MAG-OX) PO SCH (07:49)
[2020-05-01] MEDS: AMIODARONE 200 MG TAB (PACERONE) PO SCH (07:50)
[2020-05-01] MEDS: ATENOLOL 12.5MG PER 1/2 TABLET PO SCH (07:50)
[2020-05-01] MEDS: FUROSEMIDE 40 MG TAB PO SCH (07:50)
[2020-05-01] MEDS: TOLTERODINE TARTRATE 2 MG LA CAP (DETROL LA) PO SCH (07:50)
[2020-05-01] MEDS: FOLIC ACID 1 MG TAB PO SCH (07:50)
[2020-05-01] MEDS: APIXABAN 5 MG TAB (ELIQUIS) PO SCH ×2 (07:51→21:08)
[2020-05-01] MEDS: LACTOBACILLUS ACIDOPHILUS CAP (BACID) PO SCH ×3 (07:51→21:08)
[2020-05-01] MEDS: VITAMIN D 1,000 INTERNATIONAL UNITS TABLET PO SCH (07:51)
[2020-05-01] MEDS: SODIUM CHLORIDE NASAL 0.65% SPRAY BTL (OCEAN) SCH ×2 (07:51→21:08)
[2020-05-01] MEDS: ESOMEPRAZOLE 40 MG PO SCH ×2 (07:52→21:09)
[2020-05-01] MEDS: REMEDY PHYTOPLEX Z-GUARD PASTE 113GM TUBE (FROM STOREROOM PRODUCT) TOP SCH ×3 (07:52→21:11)
[2020-05-01] MEDS: FLUTICASONE PROP 0.05% NASAL SPRAY 16 GM (FLONASE) NARES SCH ×2 (07:52→21:07)
[2020-05-01] MEDS: IPRATROPIUM 0.5MG/ALBUTEROL 2.5MG INH SOL UD 3ML (DUONEB) NEB SCH ×3 (08:00→18:07)
[2020-05-01 08:13] LABS: BASO % 0.5 % (0.0-1.0); EOS # 0.2 10^3/uL (0.0-0.5); EOS % 2.8 % (0.0-3.0); HEMATOCRIT 26.3 % (36.0-47.0); LYMPH # 1.8 10^3/uL (1.5-5.0); LYMPH % 23.7 % (24.0-44.0); MEAN CORPUSCULAR HEMOGLOBIN 29.1 pg (27.0-33.0); MEAN CORPUSCULAR HGB CONC 30.4 g/dl (32.0-36.5); MEAN CORPUSCULAR VOLUME 95.6 fl (80.0-96.0); MONO # 1.2 10^3/uL (0.0-0.8); MONO % 16.7 % (0.0-5.0); NEUTROPHILS % 54.5 % (36.0-66.0); PLATELET COUNT, AUTOMATED 200 10^3/uL (150-450); RED BLOOD COUNT 2.75 10^6/uL (4.00-5.40); WHITE BLOOD COUNT 7.4 10^3/uL (4.0-10.0)
[2020-05-01 08:37] LABS: BLOOD UREA NITROGEN 8 MG/DL (7-18); CALCIUM LEVEL 7.9 MG/DL (8.8-10.2); CARBON DIOXIDE LEVEL 30 MEQ/L (21-32); CHLORIDE LEVEL 102 MEQ/L (98-107); CREATININE FOR GFR 0.85 MG/DL (0.55-1.30); GLOMERULAR FILTRATION RATE > 60.0 (>45); GLUCOSE, FASTING 87 MG/DL (70-100); SODIUM LEVEL 138 MEQ/L (136-145)
[2020-05-01 14:00] VITALS: BP 105/55
[2020-05-01 20:00] VITALS: BP 117/54
[2020-05-01] MEDS: DICLOFENAC EPOLAMINE 1.3 % PATCH TOP SCH (21:07)
[2020-05-01] MEDS: ROSUVASTATIN 10 MG TAB (CRESTOR) PO SCH (21:08)
[2020-05-01] MEDS: LORATADINE 10 MG TAB PO SCH (21:08)
[2020-05-02] VITALS (9 sets, daily range): BP systolic 105–152; BP diastolic 59–78
[2020-05-02] MEDS: NORCO, ANEXSIA 5/325MG TABLET (HYDROcodone/ACETAMINOPHEN) PO PRN ×3 (03:46→14:17)
[2020-05-02 06:52] LABS: BASO % 0.5 % (0.0-1.0); EOS # 0.1 10^3/uL (0.0-0.5); EOS % 1.4 % (0.0-3.0); HEMATOCRIT 24.9 % (36.0-47.0); HEMOGLOBIN 7.7 g/dl (12.0-15.5); LYMPH # 1.7 10^3/uL (1.5-5.0); LYMPH % 20.3 % (24.0-44.0); MEAN CORPUSCULAR HEMOGLOBIN 29.5 pg (27.0-33.0); MEAN CORPUSCULAR HGB CONC 30.9 g/dl (32.0-36.5); MEAN CORPUSCULAR VOLUME 95.4 fl (80.0-96.0); MONO # 1.2 10^3/uL (0.0-0.8); MONO % 14.1 % (0.0-5.0); NEUTROPHILS # 5.2 10^3/uL (1.5-8.5); NEUTROPHILS % 62.4 % (36.0-66.0); PLATELET COUNT, AUTOMATED 223 10^3/uL (150-450); RED BLOOD COUNT 2.61 10^6/uL (4.00-5.40); WHITE BLOOD COUNT 8.3 10^3/uL (4.0-10.0)
[2020-05-02] MEDS: IPRATROPIUM 0.5MG/ALBUTEROL 2.5MG INH SOL UD 3ML (DUONEB) NEB SCH ×3 (07:01→18:00)
[2020-05-02 07:14] LABS: BLOOD UREA NITROGEN 7 MG/DL (7-18); CALCIUM LEVEL 8.2 MG/DL (8.8-10.2); CARBON DIOXIDE LEVEL 31 MEQ/L (21-32); CHLORIDE LEVEL 102 MEQ/L (98-107); CREATININE FOR GFR 0.87 MG/DL (0.55-1.30); GLOMERULAR FILTRATION RATE > 60.0 (>45); GLUCOSE, FASTING 87 MG/DL (70-100); POTASSIUM SERUM 3.9 MEQ/L (3.5-5.1); SODIUM LEVEL 138 MEQ/L (136-145)
[2020-05-02] MEDS: MAGNESIUM OXIDE 400 MG TAB (MAG-OX) PO SCH (08:58)
[2020-05-02] MEDS: FUROSEMIDE 40 MG TAB PO SCH (08:58)
[2020-05-02] MEDS: LACTOBACILLUS ACIDOPHILUS CAP (BACID) PO SCH ×3 (08:58→19:53)
[2020-05-02] MEDS: FOLIC ACID 1 MG TAB PO SCH (08:58)
[2020-05-02] MEDS: VITAMIN D 1,000 INTERNATIONAL UNITS TABLET PO SCH (08:58)
[2020-05-02] MEDS: DOCUSATE SODIUM 100 MG CAP PO SCH ×2 (08:58→19:44)
[2020-05-02] MEDS: GABAPENTIN 300 MG CAP PO SCH ×3 (08:58→19:53)
[2020-05-02] MEDS: DULoxetine 30 MG CAP (CYMBALTA) PO SCH ×2 (08:58→19:54)
[2020-05-02] MEDS: APIXABAN 5 MG TAB (ELIQUIS) PO SCH ×2 (08:58→19:53)
[2020-05-02] MEDS: ESOMEPRAZOLE 40 MG PO SCH ×2 (09:00→19:53)
[2020-05-02] MEDS: ATENOLOL 12.5MG PER 1/2 TABLET PO SCH (09:00)
[2020-05-02] MEDS: AMIODARONE 200 MG TAB (PACERONE) PO SCH (09:00)
[2020-05-02] MEDS: OLANZapine 2.5MG TABLET PO SCH ×2 (09:00→19:53)
[2020-05-02] MEDS: SODIUM CHLORIDE NASAL 0.65% SPRAY BTL (OCEAN) SCH ×2 (09:01→19:54)
[2020-05-02] MEDS: FLUTICASONE PROP 0.05% NASAL SPRAY 16 GM (FLONASE) NARES SCH ×2 (09:01→19:55)
[2020-05-02] MEDS: DICLOFENAC EPOLAMINE 1.3 % PATCH TOP SCH ×2 (09:01→19:56)
[2020-05-02] MEDS: REMEDY PHYTOPLEX Z-GUARD PASTE 113GM TUBE (FROM STOREROOM PRODUCT) TOP SCH ×3 (09:01→19:55)
[2020-05-02] MEDS: TOLTERODINE TARTRATE 2 MG LA CAP (DETROL LA) PO SCH (09:02)
--- NOTE | 2020-05-02 10:14 | IPNPDOC ---
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 She is open to trying a topical analgesic instead of increasing her opioids. REVIEW OF SYSTEMS: The following is a completed review of systems and has been reviewed. Review of systems otherwise unremarkable. PAIN: Patient self reports generalized pain EYES: No recent vision changes EARS, NOSE, & THROAT: No throat pain, or dysphagia, or rhinorrhea CARDIOVASCULAR: Denies chest pain or palpitations, +chest wall tenderness PULMONARY: Denies shortness of breath GASTROINTESTINAL: +colostomy GENITOURINARY: denies dysuria MUSCULOSKELETAL: generalized weakness NEUROLOGICAL: denies paresthesias HEMATOLOGICAL: denies easy bruising, +chronic anemia SKIN: +colostomy, sacral erythema, abdominal incision PSYCHIATRIC: Unremarkable All other review of systems found to be negative. PHYSICAL EXAMINATION: VITAL SIGNS: Please see below. GENERAL: Pleasant and cooperative. No acute distress. HEENT: PERRL. Extraocular movements intact. Clear conjunctiva CARDIOVASCULAR: Regular rate and rhythm. No murmurs, rubs, or gallops, TTP sternal LUNGS: Clear to auscultation bilaterally. No wheezes. No rhonchi ABDOMEN: Soft, mildly TTP near incision site, +colostomy and vertical wound vac, +bowel sounds NEUROLOGICAL: Alert and oriented times three. Cranial nerves II through XII grossly intact. Sensation grossly intact in all 4limbs EXTREMITIES: 5\5 strength bilateral upper extremities. 5-\5 strength right lower extremity. 5-/5 strength in left lower extremity. SKIN: sacral erythema (blanchable), vertical incision with wound vac in place- no periwound induration/erythema ASSESSMENT:65-year-old F with past medical history of Afib who presents status post subtotal colectomy complicated by sepsis PLAN: 1. Rehab- PT/OT advance mobility and ADLs, work on colostomy care, ambulating in therapy 2. Neuro- monitor for delirium, patient with fluctuating levels of confusion, may be baseline or related to chronic opioid use, c/u Zyprexa and monitor for infectious source 3. CArdiac- c/u eliquis, Atenolol, and amiodarone for Afib, medicine following along -HLD c/u statin 4. Resp- c/u duonebs and incentive spirometry, monitor for infection 5. GI- s/p subtotal colectomy 03-28-20 with subhepatic fluid drainage, completed course of Cipro and Flagyl, monitor for infection, f/u surgery on d/c -c/u wound vac -Bacid 6. DVT ppx- on eliquis 7. Pain- c/u Cymbalta, [place], gabapentin, and Tylenol -will add flector patch to chest for patient's chronic chest wall pain likely due to costochondritis 8. Heme- anemia likely due to blood loss from recent surgery and chronic disease, monitor and transfuse if Hgb <8 9. Dispo- TBD Allergies Coded Allergies: Penicillins (Verified Allergy, Severe, anyphylaxis, 07/30/19) Cephalosporins (Verified Adverse Reaction, Severe, red man syndrome, 04/29/20) Vital Signs Vital Signs Date Time Temp Pulse Resp B/P (MAP) Pulse Ox O2 Delivery O2 Flow Rate FiO2 05/02/20 09:27 18 05/02/20 09:00 106 122/59 05/02/20 06:00 98.3 95 Room Air Laboratory Data CBC/BMP Laboratory Tests 05/02/20 06:31 Labs 24H Laboratory Tests 2 05/02/20 06:31: Immature Granulocyte % (Auto) 1.3, Neutrophils (%) (Auto) 62.4, Lymphocytes (%) (Auto) 20.3L, Monocytes (%) (Auto) 14.1H, Eosinophils (%) (Auto) 1.4, Basophils (%) (Auto) 0.5, Neutrophils # (Auto) 5.2, Lymphocytes # (Auto) 1.7, Monocytes # (Auto) 1.2H, Eosinophils # (Auto) 0.1, Basophils # (Auto) 0.0, Nucleated Red Blood Cells % (auto) 0.6H, Anion Gap 5L, Glomerular Filtration Rate > 60.0, Calcium Level 8.2L Current Medications Current Medications Current Medications Medications (Trade) Dose Ordered Sig/Nicolas Route PRN Reason Start Time Stop Time Status Last Admin Dose Admin Acetaminophen (Tylenol Tab) 650 mg Q4HP PRN PO fever/MILD PAIN (PS 1-4) 04/29/20 17:45 05/01/20 13:18 Acetaminophen/ Hydrocodone Bitart ([place], Anexsia 5/325) 1 tab Q4HP PRN PO MILD/MODERATE PAIN (PS 1-7) 04/29/20 17:45 05/02/20 08:57 Albuterol/ Ipratropium (Duoneb (Ipr 0.5mg/Alb 2.5mg)) 3 ml RTID NEB 04/29/20 20:00 05/02/20 07:01 Amiodarone HCl (Pacerone, Cordarone) 200 mg DAILY PO 04/30/20 09:00 05/02/20 09:00 Apixaban (Eliquis) 5 mg BID PO 04/29/20 21:00 05/02/20 08:58 Atenolol (Tenormin) 12.5 mg DAILY PO 04/30/20 09:00 05/02/20 09:00 Diclofenac Epolamine (Flector 1.3%) 1 patch Q12H TOP 05/01/20 21:00 05/02/20 09:01 Docusate Sodium (Colace) 100 mg BID PO 04/29/20 21:00 05/02/20 08:58 Duloxetine HCl (Cymbalta) 30 mg DAILY PO 04/30/20 09:00 05/02/20 08:58 Duloxetine HCl (Cymbalta) 60 mg QHS PO 04/29/20 21:00 05/01/20 21:08 Fluticasone Propionate (Flonase 0.05% Nasal [place]) 1 spray BID NARES 04/29/20 21:00 05/02/20 09:01 Folic Acid (Folic Acid) 1 mg DAILY PO 04/30/20 09:00 05/02/20 08:58 Furosemide (Lasix) 40 mg DAILY PO 04/30/20 09:00 05/02/20 08:58 Gabapentin (Neurontin) 300 mg TID PO 04/29/20 21:00 05/02/20 08:58 Lactobacillus Acidophilus (Bacid) 1 ea TID PO 04/29/20 21:00 05/02/20 08:58 Loratadine (Claritin) 10 mg QHS PO 04/29/20 21:00 05/01/20 21:08 Magnesium Oxide (Mag-Ox) 400 mg DAILY PO 04/30/20 09:00 05/02/20 08:58 Olanzapine (ZyPREXA) 2.5 mg BID PO 04/29/20 21:00 05/02/20 09:00 Ondansetron HCl (Zofran Odt) 4 mg Q4HP PRN PO NAUSEA OR VOMITING 04/30/20 11:15 Patient Own Medication (Patient'S Own Med) nexium 40mg BID BID PO 04/29/20 21:00 05/02/20 09:00 Rosuvastatin Calcium (Crestor) 10 mg QHS PO 04/29/20 21:00 05/01/20 21:08 Sodium Chloride ([place] Nasal [place]) 2 spray BID NA 04/29/20 21:00 05/02/20 09:01 Tolterodine Tartrate (Detrol La) 2 mg DAILY PO 04/30/20 09:00 05/02/20 09:02 Vitamin D (Vitamin D) 1,000 units DAILY PO 04/30/20 09:00 05/02/20 08:58 Zolpidem Tartrate (Ambien) 5 mg QHSP PRN PO insomnia 04/29/20 17:45 05/01/20 21:08 EDIE TORRES MD May 02, 2020 10:14
--- NOTE | 2020-05-02 10:14 | IPNPDOC ---
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 REVIEW OF SYSTEMS: The following is a completed review of systems and has been reviewed. Review of systems otherwise unremarkable. PAIN: Patient self reports generalized pain EYES: No recent vision changes EARS, NOSE, & THROAT: No throat pain, or dysphagia, or rhinorrhea CARDIOVASCULAR: Denies chest pain or palpitations, +chest wall tenderness PULMONARY: Denies shortness of breath GASTROINTESTINAL: +colostomy GENITOURINARY: denies dysuria MUSCULOSKELETAL: generalized weakness NEUROLOGICAL: denies paresthesias HEMATOLOGICAL: denies easy bruising, +chronic anemia SKIN: +colostomy, sacral erythema, abdominal incision PSYCHIATRIC: Unremarkable All other review of systems found to be negative. PHYSICAL EXAMINATION: VITAL SIGNS: Please see below. GENERAL: Pleasant and cooperative. No acute distress. HEENT: PERRL. Extraocular movements intact. Clear conjunctiva CARDIOVASCULAR: Regular rate and rhythm. No murmurs, rubs, or gallops, TTP sternal LUNGS: Clear to auscultation bilaterally. No wheezes. No rhonchi ABDOMEN: Soft, mildly TTP near incision site, +colostomy and vertical wound vac, +bowel sounds NEUROLOGICAL: Alert and oriented times three. Cranial nerves II through XII grossly intact. Sensation grossly intact in all 4limbs EXTREMITIES: 5\5 strength bilateral upper extremities. 5-\5 strength right lower extremity. 5-/5 strength in left lower extremity. SKIN: sacral erythema (blanchable), vertical incision with wound vac in place- no periwound induration/erythema ASSESSMENT:65-year-old F with past medical history of Afib who presents status post subtotal colectomy complicated by sepsis PLAN: 1. Rehab- PT/OT advance mobility and ADLs, work on colostomy care, ambulating in therapy 2. Neuro- monitor for delirium, patient with fluctuating levels of confusion, may be baseline or related to chronic opioid use, c/u Zyprexa and monitor for infectious source 3. CArdiac- c/u eliquis, Atenolol, and amiodarone for Afib, medicine following along -HLD c/u statin 4. Resp- c/u duonebs and incentive spirometry, monitor for infection 5. GI- s/p subtotal colectomy 03-28-20 with subhepatic fluid drainage, completed course of Cipro and Flagyl, monitor for infection, f/u surgery on d/c -c/u wound vac -Bacid 6. DVT ppx- on eliquis 7. Pain- c/u Cymbalta, [place], gabapentin, and Tylenol -c/u flector patch to chest for patient's chronic chest wall pain likely due to costochondritis 8. Heme- anemia likely due to blood loss from recent surgery and chronic disease, Hgn 7.7 today with mild tachcyardia and fatigue, will transfuse 2 units and f/u cbc tomorrow 9. Dispo- TBD Allergies Coded Allergies: Penicillins (Verified Allergy, Severe, anyphylaxis, 07/30/19) Cephalosporins (Verified Adverse Reaction, Severe, red man syndrome, 04/29/20) Vital Signs Vital Signs Date Time Temp Pulse Resp B/P (MAP) Pulse Ox O2 Delivery O2 Flow Rate FiO2 05/02/20 09:27 18 05/02/20 09:00 106 122/59 05/02/20 06:00 98.3 95 Room Air Laboratory Data CBC/BMP Laboratory Tests 05/02/20 06:31 Labs 24H Laboratory Tests 2 05/02/20 06:31: Immature Granulocyte % (Auto) 1.3, Neutrophils (%) (Auto) 62.4, Lymphocytes (%) (Auto) 20.3L, Monocytes (%) (Auto) 14.1H, Eosinophils (%) (Auto) 1.4, Basophils (%) (Auto) 0.5, Neutrophils # (Auto) 5.2, Lymphocytes # (Auto) 1.7, Monocytes # (Auto) 1.2H, Eosinophils # (Auto) 0.1, Basophils # (Auto) 0.0, Nucleated Red Blood Cells % (auto) 0.6H, Anion Gap 5L, Glomerular Filtration Rate > 60.0, Calcium Level 8.2L Current Medications Current Medications Current Medications Medications (Trade) Dose Ordered Sig/Nicolas Route PRN Reason Start Time Stop Time Status Last Admin Dose Admin Acetaminophen (Tylenol Tab) 650 mg Q4HP PRN PO fever/MILD PAIN (PS 1-4) 04/29/20 17:45 05/01/20 13:18 Acetaminophen/ Hydrocodone Bitart ([place], Anexsia 5/325) 1 tab Q4HP PRN PO MILD/MODERATE PAIN (PS 1-7) 04/29/20 17:45 05/02/20 08:57 Albuterol/ Ipratropium (Duoneb (Ipr 0.5mg/Alb 2.5mg)) 3 ml RTID NEB 04/29/20 20:00 05/02/20 07:01 Amiodarone HCl (Pacerone, Cordarone) 200 mg DAILY PO 04/30/20 09:00 05/02/20 09:00 Apixaban (Eliquis) 5 mg BID PO 04/29/20 21:00 05/02/20 08:58 Atenolol (Tenormin) 12.5 mg DAILY PO 04/30/20 09:00 05/02/20 09:00 Diclofenac Epolamine (Flector 1.3%) 1 patch Q12H TOP 05/01/20 21:00 05/02/20 09:01 Docusate Sodium (Colace) 100 mg BID PO 04/29/20 21:00 05/02/20 08:58 Duloxetine HCl (Cymbalta) 30 mg DAILY PO 04/30/20 09:00 05/02/20 08:58 Duloxetine HCl (Cymbalta) 60 mg QHS PO 04/29/20 21:00 05/01/20 21:08 Fluticasone Propionate (Flonase 0.05% Nasal [place]) 1 spray BID NARES 04/29/20 21:00 05/02/20 09:01 Folic Acid (Folic Acid) 1 mg DAILY PO 04/30/20 09:00 05/02/20 08:58 Furosemide (Lasix) 40 mg DAILY PO 04/30/20 09:00 05/02/20 08:58 Gabapentin (Neurontin) 300 mg TID PO 04/29/20 21:00 05/02/20 08:58 Lactobacillus Acidophilus (Bacid) 1 ea TID PO 04/29/20 21:00 05/02/20 08:58 Loratadine (Claritin) 10 mg QHS PO 04/29/20 21:00 05/01/20 21:08 Magnesium Oxide (Mag-Ox) 400 mg DAILY PO 04/30/20 09:00 05/02/20 08:58 Olanzapine (ZyPREXA) 2.5 mg BID PO 04/29/20 21:00 05/02/20 09:00 Ondansetron HCl (Zofran Odt) 4 mg Q4HP PRN PO NAUSEA OR VOMITING 04/30/20 11:15 Patient Own Medication (Patient'S Own Med) nexium 40mg BID BID PO 04/29/20 21:00 05/02/20 09:00 Rosuvastatin Calcium (Crestor) 10 mg QHS PO 04/29/20 21:00 05/01/20 21:08 Sodium Chloride ([place] Nasal [place]) 2 spray BID NA 04/29/20 21:00 05/02/20 09:01 Tolterodine Tartrate (Detrol La) 2 mg DAILY PO 04/30/20 09:00 05/02/20 09:02 Vitamin D (Vitamin D) 1,000 units DAILY PO 04/30/20 09:00 05/02/20 08:58 Zolpidem Tartrate (Ambien) 5 mg QHSP PRN PO insomnia 04/29/20 17:45 05/01/20 21:08 EDIE TORRES MD May 02, 2020 10:14
[2020-05-02] MEDS ORDERED: diphenhydrAMINE 25MG CAP PO ONE (10:15)
[2020-05-02] MEDS ORDERED: ACETAMINOPHEN TAB 650MG DOSE (2X325MG) PO ONE (10:15)
[2020-05-02] MEDS ORDERED: FUROSEMIDE 20MG/2ML VIAL (J1940) IV ONE (10:15)
[2020-05-02] MEDS: LORATADINE 10 MG TAB PO SCH (19:54)
[2020-05-02] MEDS: ROSUVASTATIN 10 MG TAB (CRESTOR) PO SCH (19:54)
[2020-05-03] MEDS: NORCO, ANEXSIA 5/325MG TABLET (HYDROcodone/ACETAMINOPHEN) PO PRN ×3 (05:20→15:08)
[2020-05-03] MEDS ORDERED: ONDANSETRON 4MG/2ML VIAL As Ordered ONE (05:58)
[2020-05-03 06:00] VITALS: BP 155/84
[2020-05-03] MEDS ORDERED: ONDANSETRON 4MG/2ML VIAL IV ONE (06:00)
[2020-05-03] MEDS: IPRATROPIUM 0.5MG/ALBUTEROL 2.5MG INH SOL UD 3ML (DUONEB) NEB SCH ×2 (07:24→14:00)
[2020-05-03 07:54] VITALS: BP 140/72
[2020-05-03] MEDS: ATENOLOL 12.5MG PER 1/2 TABLET PO SCH (07:54)
[2020-05-03] MEDS: DULoxetine 30 MG CAP (CYMBALTA) PO SCH (07:55)
[2020-05-03] MEDS: VITAMIN D 1,000 INTERNATIONAL UNITS TABLET PO SCH (07:55)
[2020-05-03] MEDS: MAGNESIUM OXIDE 400 MG TAB (MAG-OX) PO SCH (07:55)
[2020-05-03] MEDS: LACTOBACILLUS ACIDOPHILUS CAP (BACID) PO SCH (07:55)
[2020-05-03] MEDS: FUROSEMIDE 40 MG TAB PO SCH (07:56)
[2020-05-03] MEDS: APIXABAN 5 MG TAB (ELIQUIS) PO SCH (07:56)
[2020-05-03] MEDS: OLANZapine 2.5MG TABLET PO SCH (07:56)
[2020-05-03] MEDS: DOCUSATE SODIUM 100 MG CAP PO SCH (07:56)
[2020-05-03] MEDS: AMIODARONE 200 MG TAB (PACERONE) PO SCH (07:56)
[2020-05-03] MEDS: GABAPENTIN 300 MG CAP PO SCH (07:56)
[2020-05-03] MEDS: FOLIC ACID 1 MG TAB PO SCH (07:56)
[2020-05-03] MEDS: TOLTERODINE TARTRATE 2 MG LA CAP (DETROL LA) PO SCH (07:56)
[2020-05-03] MEDS: SODIUM CHLORIDE NASAL 0.65% SPRAY BTL (OCEAN) SCH (07:57)
[2020-05-03] MEDS: ESOMEPRAZOLE 40 MG PO SCH (07:57)
[2020-05-03] MEDS: FLUTICASONE PROP 0.05% NASAL SPRAY 16 GM (FLONASE) NARES SCH (07:57)
[2020-05-03] MEDS: DICLOFENAC EPOLAMINE 1.3 % PATCH TOP SCH (07:57)
[2020-05-03] MEDS: REMEDY PHYTOPLEX Z-GUARD PASTE 113GM TUBE (FROM STOREROOM PRODUCT) TOP SCH (07:58)
[2020-05-03 09:23] LABS: BASO # 0.1 10^3/uL (0.0-0.2); BASO % 0.5 % (0.0-1.0); EOS % 0.3 % (0.0-3.0); HEMATOCRIT 38.7 % (36.0-47.0); LYMPH # 1.3 10^3/uL (1.5-5.0); LYMPH % 12.6 % (24.0-44.0); MEAN CORPUSCULAR HEMOGLOBIN 28.8 pg (27.0-33.0); MEAN CORPUSCULAR VOLUME 89.8 fl (80.0-96.0); MONO # 1.1 10^3/uL (0.0-0.8); MONO % 10.7 % (0.0-5.0); NEUTROPHILS % 75.2 % (36.0-66.0); PLATELET COUNT, AUTOMATED 266 10^3/uL (150-450); RED BLOOD COUNT 4.31 10^6/uL (4.00-5.40); WHITE BLOOD COUNT 10.6 10^3/uL (4.0-10.0)
[2020-05-03 09:24] LABS: HEMOGLOBIN 12.4 g/dl (12.0-15.5)
[2020-05-03] MEDS ORDERED: NS 1,000 ML IV SCH (10:00)
--- NOTE | 2020-05-03 10:06 | IPNPDOC ---
Date Seen The patient was seen on 05/03/20. Progress Note SUBJECTIVE: patient seen and examined at bedside. Vomited stool at approx 6 am this morning per patient. Reports projectile vomitus. Did not see blood. Afebrile. VSS. Endorses worsening abdominal pain on palpation. Stoma bag has gas, some secretions. Per RN, stoma output has decreased over past 2 days. OBJECTIVE PHYSICAL EXAMINATION: VITAL SIGNS: Please see below. GENERAL APPEARANCE: NAD, comfortable HEENT: PERRLA, eomi. RESPIRATORY: lungs CTAB. CARDIOVASCULAR: RRR, normal S1, s2. ABDOMEN: wound vac, RLQ stoma, retracted. EXTREMITIES: no edema. NEUROLOGICAL: no focal neuro deficits. PSYCHIATRIC: AAO x 3, calm, cooperative. LABORATORY DATA, IMAGING STUDIES, MICROBIOLOGY: Please see below. DVT prophylaxis ordered?: On eliquis, holding now. ASSESSMENT AND PLAN: 65 yo F with a hx of newly diagnosed Afib on eliquis, HTN, Scleroderma, fibromyalgia, chronic pain syndrome, recently underwent a subtotal colectomy on 03/28/20 for bowel ischemia. She was transfered to ARU with IV abx. On 04/13/20, transfered to inpatient unit with sepsis, CT abdo showing a developed abscess poss seroma in R abdomen. Underwent drainage of subhepatic collection. Wound vac placed for improved healing of dehisced wound. Completed course of flagyl and levaquin. PROBLEMS: 1. Fecal vomiting: projectile fecal vomitus at 6 am. No blood seen. Reduced output in ileostomy bag. Suspect bowel obstruction. Hgb 12.4. WBC 10.6. Ordered stat NGT to LIS. NPO. Stat CT abdo pelvis with IV contrast. Start zosyn for empiric therapy. General surgery consult. 2. Subhepatic seroma/hematoma: s/p subtotal colectomy for ischemic colitis, with ileostomy. s/p drainage. VSS. completed course of abx. wound vac in place. 3. Generalized weakness: deconditioning. active PT at ARU. 4. Afib: rate control with amiodarone, atenolol. Eliquis for AC. 5. HTN: c/w atenolol 6. Dyslipidemia: crestor 7. Chronic pain syndrome: cymbalta, gabapentin, tylenol. Given fluctuating levels of cog, recommend avoidance of sedating medications eg narcotics at this time. DVT ppx: eliquis, on hold given SBO, possible OR. TEDs, SCDs. VS, I&O, 24H, Fishbone Vital Signs/I&O Vital Signs Date Time Temp Pulse Resp B/P (MAP) Pulse Ox O2 Delivery O2 Flow Rate FiO2 05/03/20 07:54 86 140/72 05/03/20 06:20 16 05/03/20 06:00 97.1 91 Room Air I&O- Last 24 Hours up to 6 AM 05/03/20 05:59 Intake Total 1050 ml Balance 1050 ml Laboratory Data 24H LABS Laboratory Tests 2 05/03/20 08:15: Immature Granulocyte % (Auto) 0.7, Neutrophils (%) (Auto) 75.2H, Lymphocytes (%) (Auto) 12.6L, Monocytes (%) (Auto) 10.7H, Eosinophils (%) (Auto) 0.3, Basophils (%) (Auto) 0.5, Neutrophils # (Auto) 8.0, Lymphocytes # (Auto) 1.3L, Monocytes # (Auto) 1.1H, Eosinophils # (Auto) 0.0, Basophils # (Auto) 0.1, Nucleated Red Blood Cells % (auto) 0.4H CBC/BMP Laboratory Tests 05/03/20 08:15 WINSTON HOSKINS MD May 03, 2020 10:06
[2020-05-03] MEDS ORDERED: LevoFLOXacin IV 750 MG in IV 1 EA IV SCH (11:00)
[2020-05-03] MEDS ORDERED: ISOVUE-370 76% 100ML VIAL As Ordered ONE (11:55)
[2020-05-03] MEDS ORDERED: metroNIDAZOLE 500 MG in IV 1 EA IV SCH (13:00)
--- NOTE | 2020-05-03 13:28 | REPVR ---
PROCEDURE INFORMATION: Exam: CT Abdomen And Pelvis With Contrast Exam date and time: 05/03/2020 12:29 PM Age: 65 years old Clinical indication: Vomiting; Prior surgery; Surgery date: 3-7 days post-operative; Surgery type: Colostomy; Additional info: Vomited stool, colostomy, suspect obstruction TECHNIQUE: Imaging protocol: Computed tomography of the abdomen and pelvis with intravenous contrast. Radiation optimization: All CT scans at this facility use at least one of these dose optimization techniques: automated exposure control; mA and/or kV adjustment per patient size (includes targeted exams where dose is matched to clinical indication); or iterative reconstruction. Contrast material: ISOVUE 370; Contrast volume: 100 ml; Contrast route: INTRAVENOUS (IV); COMPARISON: CT ABD/PEL W/IV CONTRAST ONLY 04/21/2020 2:09 PM FINDINGS: Tubes, catheters and devices: There is a nasogastric tube within the stomach. Lungs: There is bibasilar atelectasis. Liver: There is a 5.6 x 2.0 cm loculated fluid collection inferior to the right hepatic lobe, smaller than prior study. An underlying abscess cannot be excluded. Gallbladder and bile ducts: The patient is status post cholecystectomy. Pancreas: Normal. No ductal dilation. Spleen: Normal. No splenomegaly. Adrenals: Normal. No mass. Kidneys and ureters: Normal. No hydronephrosis. Stomach and bowel: There is a right lower quadrant ostomy, please correlate with surgical history. There is a high-grade distal small-bowel obstruction. At least 1 transition point is identified in the mid anterior abdomen deep to the umbilicus. There may be a 2nd transition point at the ostomy site. There may be a 3rd transition point in the left upper quadrant. The stomach is collapsed. There is a minimal amount of oral contrast within the gastric fundus. No oral contrast is seen distal to the stomach. There is a suture line within the sigmoid colon with what appears to be a Ragini's pouch, please correlate with surgical history. Appendix: No evidence of appendicitis. Intraperitoneal space: Unremarkable. No free air. No significant fluid collection. Vasculature: There are atherosclerotic changes of the abdominal aorta and aneurysmal dilatation of the infrarenal abdominal aorta measuring as large as 3.0 cm, similar to prior study. Lymph nodes: There are multiple borderline enlarged right lower quadrant lymph nodes. Bladder: The urinary bladder is moderately distended. Reproductive: The patient is status post hysterectomy. Bones/joints: Unremarkable. No acute fracture. Soft tissues: Unremarkable. IMPRESSION: 1. There is a high-grade distal small-bowel obstruction. At least 1 transition point is identified in the mid anterior abdomen deep to the umbilicus. There may be a 2nd transition point at the ostomy site. There may be a 3rd transition point in the left upper quadrant. Evaluation is limited due to a paucity of oral contrast. Surgical consultation is recommended. 2. There is a 5.6 x 2.0 cm loculated fluid collection inferior to the right hepatic lobe, smaller than prior study. An underlying abscess cannot be excluded. 3. The urinary bladder is moderately distended. Consider [place] catheter placement if clinically indicated. Electronically signed by: Dav Hopper On 05/03/2020 13:28:16 PM
[2020-05-03 14:00] VITALS: BP 121/60
--- NOTE | 2020-05-03 14:35 | DS.PDOC ---
Discharge Summary General Date of Admission Apr 29, 2020 at 16:55 Date of Discharge 05/03/2020 Attending Physician: WINSTON HOSKINS MD Discharge Summary PROCEDURES PERFORMED DURING STAY: [None]. ADMITTING DIAGNOSES: 1. Bowel ischemia s/p subtotal colectomy 2. Ileostomy 3. Afib 4. HTN 5. Scleroderma 6. Fibromyalgia 6. Chronic pain syndrome DISCHARGE DIAGNOSES: 1. Bowel ischemia s/p subtotal colectomy 2. Ileostomy 3. Afib 4. HTN 5. Scleroderma 6. Fibromyalgia 6. Chronic pain syndrome 7. Small bowel obstruction COMPLICATIONS/CHIEF COMPLAINT: S/P Colectomy For Ischemic Colitis. HISTORY OF PRESENT ILLNESS: 65 yo F with a hx of newly diagnosed Afib on is, HTN, Scleroderma, fibromyalgia, chronic pain syndrome, recently underwent a subtotal colectomy on 03/28/20 for bowel ischemia. She was transfered to ARU with IV abx. On 04/13/20, transfered to inpatient unit with sepsis, CT abdo showing a developed abscess poss seroma in R abdomen. Underwent drainage of subhepatic collection. Wound vac placed for improved healing of dehisced wound. Completed course of flagyl and levaquin. HOSPITAL COURSE: Patient was admitted to ARU for active rehab. On morning of 05/03/20, developed fecal vomiting. Decompressed with NGT. CT abdo showed high grade distal SBO with multiple transition points. Made NPO. General surgery was consulted. Planned for surgery. Discharged and for admission to inpatient unit for management of SBO. DISCHARGE MEDICATIONS: Please see below. ALLERGIES: Please see below. PHYSICAL EXAMINATION ON DISCHARGE: VITAL SIGNS: Please see below. GENERAL APPEARANCE: NAD, comfortable HEENT: PERRLA, eomi. RESPIRATORY: lungs CTAB. CARDIOVASCULAR: RRR, normal S1, s2. ABDOMEN: wound vac, RLQ stoma, retracted, epigastric pain to palpation 7/10. Stoma bag tense with gas. EXTREMITIES: no edema. NEUROLOGICAL: no focal neuro deficits. PSYCHIATRIC: AAO x 3, calm, cooperative. LABORATORY DATA: Please see below. IMAGING: IMPRESSION: 1. There is a high-grade distal small-bowel obstruction. At least 1 transition point is identified in the mid anterior abdomen deep to the umbilicus. There may be a 2nd transition point at the ostomy site. There may be a 3rd transition point in the left upper quadrant. Evaluation is limited due to a paucity of oral contrast. Surgical consultation is recommended. 2. There is a 5.6 x 2.0 cm loculated fluid collection inferior to the right hepatic lobe, smaller than prior study. An underlying abscess cannot be excluded. 3. The urinary bladder is moderately distended. Consider Dudley catheter placement if clinically indicated. PROGNOSIS: good ACTIVITY: [As tolerated]. DIET: NPO DISCHARGE PLAN: will admit to inpatient for surgical management of SBO DISPOSITION: admit to inpatient unit at [facility] DISCHARGE INSTRUCTIONS: 1. admit to Inpatient ITEMS TO FOLLOWUP ON ON OUTPATIENT: 1. SBO obstruction DISCHARGE CONDITION: [Stable]. TIME SPENT ON DISCHARGE: Greater than [30] minutes. Vital Signs/I&Os Vital Signs Date Time Temp Pulse Resp B/P (MAP) Pulse Ox O2 Delivery O2 Flow Rate FiO2 05/03/20 11:33 18 05/03/20 07:54 86 140/72 05/03/20 06:00 97.1 91 Room Air I&O- Last 24 Hours up to 6 AM 05/03/20 05:59 Intake Total 1050 ml Balance 1050 ml Laboratory Data Labs 24H Laboratory Tests 2 05/03/20 08:15: Immature Granulocyte % (Auto) 0.7, Neutrophils (%) (Auto) 75.2H, Lymphocytes (%) (Auto) 12.6L, Monocytes (%) (Auto) 10.7H, Eosinophils (%) (Auto) 0.3, Basophils (%) (Auto) 0.5, Neutrophils # (Auto) 8.0, Lymphocytes # (Auto) 1.3L, Monocytes # (Auto) 1.1H, Eosinophils # (Auto) 0.0, Basophils # (Auto) 0.1, Nucleated Red Blood Cells % (auto) 0.4H CBC/BMP Laboratory Tests 05/03/20 08:15 Microbiology Microbiology 05/03/20 Blood Culture, Received Pending Discharge Medications Scheduled Amiodarone HCl (Amiodarone HCl) 200 Mg Tablet, 200 MG PO DAILY Apixaban (Eliquis) 5 Mg Tablet, 5 MG PO BID Aspirin (Aspir 81) 81 Mg Tablet.dr, 81 MG PO QHS, (Reported) Atenolol (Atenolol) 25 Mg Tablet, 12.5 MG PO DAILY Cholecalciferol (Vitamin D3) (Vitamin D3) 25 Mcg Tablet, 25 MCG PO DAILY, (Reported) Duloxetine Hcl (Duloxetine HCl) 30 Mg Capsule.dr, 60 MG PO QHS, (Reported) Duloxetine Hcl (Duloxetine HCl) 30 Mg Capsule.dr, 30 MG PO QAM, (Reported) Esomeprazole Magnesium (Nexium) 40 Mg Cap, 40 MG PO BID, (Reported) Folic Acid (Folic Acid) 1 Mg Tablet, 1 MG PO DAILY, (Reported) Furosemide (Furosemide) 40 Mg Tablet, 1 TAB PO DAILY Hold for SBP < 110 Gabapentin (Gabapentin) 300 Mg Capsule, 300 MG PO TID, (Reported) L.acidoph/L.bulg/B.bif/S.therm (Jaquelin-Bid Caplet) 1 Each Tablet, 1 EA PO TID Loratadine (Loratadine) 10 Mg Tablet, 10 MG PO QHS, (Reported) Magnesium Oxide (Magnesium) 250 Mg Tablet, 1 TAB PO DAILY, (Reported) Olanzapine (Olanzapine) 2.5 Mg Tablet, 2.5 MG PO BID Rosuvastatin Calcium (Rosuvastatin Calcium) 10 Mg Tablet, 10 MG PO QHS, (Reported) Tolterodine Tartrate (Detrol LA) 2 Mg Cap.er.24h, 2 MG PO DAILY Zolpidem Tartrate (Zolpidem Tartrate) 5 Mg Tablet, 5 MG PO QHS, (Reported) Scheduled PRN Hydrocodone/Acetaminophen (Hydrocodone-Acetamin 10-325 mg) 1 Each Tablet, 1 TAB PO QID PRN for PAIN, (Reported) Sennosides (Senna) 8.6 Mg Tablet, 43 MG PO QHS PRN for CONSTIPATION, (Reported) Allergies Coded Allergies: Penicillins (Verified Allergy, Severe, anyphylaxis, 07/30/19) Cephalosporins (Verified Adverse Reaction, Severe, red man syndrome, 04/29/20) WINSTON HOSKINS MD May 03, 2020 14:34
[2020-05-03 15:44] VITALS: BP 111/57
--- NOTE | 2020-05-27 11:17 | DSES ---
DATE OF ADMISSION: 04/29/2020. DATE OF DISCHARGE: 05/03/2020. CHIEF COMPLAINT/DISCHARGE DIAGNOSIS: Status post subtotal colectomy with sepsis and anemia. HISTORY OF PRESENT ILLNESS: This is a 65-year-old female with a past medical history of aortic stenosis, newly diagnosed atrial fibrillation on Eliquis, hypertension, scleroderma, fibromyalgia, chronic pain syndrome, who underwent a subtotal colectomy on 03/28/2020 for ischemic bowel. After which, she was transferred to inpatient rehab on antibiotics for suspected bowel infection. She was transferred out on 04/13/2020 for sepsis with suspected pneumonia and CT abdomen showing a possible abscess versus seroma in the right lateral side of her abdomen. She was started with a wound VAC to promote better incision site healing and seen by ID, who recommended continuation of Flagyl and Levaquin pending blood culture results. She had drainage of her subhepatic fluid collection with negative gram stain and her antibiotics were discontinued after 10 days total. She was again evaluated by therapy, and still noted to have impairments in mobility and ADLs, and deemed medically appropriate for discharge to ARU on 04/29/2020. PAST MEDICAL HISTORY: As per HPI. HOSPITAL COURSE: The patient was admitted and enrolled in comprehensive PT/OT programs. She received 24 hour nursing supervision and weekly team meetings were set up. Patient received wound VAC changes three times a week and was maintained off of antibiotics with close monitoring for infection. She had a drop in her hemoglobin and hematocrit with hemoglobin on 05/02/2020 down to 7.7 with mild tachycardia and reported fatigue. She was given two units of PRBCs and for her pain, she was treated with Cymbalta, [place], Gabapentin, Tylenol and a Flector patch was added to her chest for costochondritis. Patient was making slow but steady gains in therapy when on 05/03/2020, patient was reported to have vomiting of fecal matter. NG tube was placed. CT abdomen showed high grade distal small bowel obstruction. She was made n.p.o. and discharged back to acute care for further surgery. ED
[2020-06-18] MEDS ORDERED: DETR4CAP PO (15:51)
[2020-06-18] MEDS ORDERED: CELE100C PO (15:51)
[2020-06-18] MEDS ORDERED: OYST500T12 PO (15:51)
[2020-06-18] MEDS ORDERED: ALBU83IN INH (15:51)
[2020-06-18] MEDS ORDERED: SING10TA32 PO (15:51)
[2020-06-18] MEDS ORDERED: NEXI40CA PO (15:51)
[2020-06-18] MEDS ORDERED: WELLTAB38 PO (15:51)
[2020-06-18] MEDS ORDERED: PERC10TA26 PO (15:51)
[2020-06-18] MEDS ORDERED: CO Q200C10 PO (15:51)
== END 2020-05-03 15:40 | disposition short-term general hospital (02) | DRG 948 ==
LOC: M PM&R 16:55 → M MSPAV 05-03 15:37 → M PM&R 05-03 15:37 → UNDODISIN 05-03 15:40
PROVIDERS: ADMIT Physical Medicine & Rehabilitation; ATTEND Physical Medicine & Rehabilitation
PROC: 30233N1 Transfusion of Nonautologous Red Blood Cells into Peripheral Vein, Percutaneous Approach (ICD-10-PCS; principal; 2020-05-02)
DX: R53.1 Weakness (principal); K56.601 Complete intestinal obstruction, unspecified as to cause; I35.0 Nonrheumatic aortic (valve) stenosis; I48.91 Unspecified atrial fibrillation; I10 Essential (primary) hypertension; M34.9 Systemic sclerosis, unspecified; R11.13 Vomiting of fecal matter; M79.7 Fibromyalgia; D50.0 Iron deficiency anemia secondary to blood loss (chronic); G89.4 Chronic pain syndrome; Z79.01 Long term (current) use of anticoagulants; Z79.82 Long term (current) use of aspirin; Z79.891 Long term (current) use of opiate analgesic; Z79.899 Other long term (current) drug therapy; Z88.0 Allergy status to penicillin; Z88.1 Allergy status to other antibiotic agents; Z90.49 Acquired absence of other specified parts of digestive tract; Z93.3 Colostomy status; Z98.1 Arthrodesis status

== ENCOUNTER 2020-05-03 14:13 | Inpatient (IN) | payer MEDICARE, OTHER ==
[~2020-05-03] VITALS: Ht 149.9 cm; Wt 58.8 kg
[2020-05-03] MEDS: LORATADINE 10 MG TAB PO SCH (00:38)
[2020-05-03] MEDS: ROSUVASTATIN 10 MG TAB (CRESTOR) PO SCH (00:38)
[2020-05-03] MEDS: DULoxetine 30 MG CAP (CYMBALTA) PO SCH (00:38)
[2020-05-03] MEDS: GABAPENTIN 300 MG CAP PO SCH (00:39)
[2020-05-03] MEDS: OLANZapine 2.5MG TABLET PO SCH (00:40)
[2020-05-03] MEDS ORDERED: MOM 30ML SUSPENSION UDC PO PRN (15:00)
[2020-05-03] MEDS ORDERED: ACETAMINOPHEN TAB 650MG DOSE (2X325MG) PO PRN (15:00)
--- NOTE | 2020-05-03 15:05 | HPEPDOC ---
[facility] Medical History & Physical Date of Admission May 03, 2020 Date of Service: May 03, 2020 Attending Physician: WINSTON HOSKINS MD History and Physical CHIEF COMPLAINT: FECAL VOMITING 2/2 SBO HISTORY OF PRESENT ILLNESS: 65 yo F with a hx of newly diagnosed Afib on eliquis, HTN, Scleroderma, fibromyalgia, chronic pain syndrome, recently underwent a subtotal colectomy on 03/28/20 for bowel ischemia. She was transfered to ARU with IV abx. On 04/13/20, transfered to inpatient unit with sepsis, CT abdo showing a developed abscess poss seroma in R abdomen. Underwent drainage of subhepatic collection. Wound vac placed for improved healing of dehisced wound. Completed course of flagyl and levaquin. Back at ARU, on morning of 05/03/20, patient developed projective fecal vomitus, with worsening diffuse abdo pain. NGT placed. CT scan showing high grade SBO with multiple transition points. Gen Surg consulted. Transfered back to inpatient for surgical management. PMHX: Gastroesophageal reflux disease (GERD) Hyperlipidemia. Overactive bladder Depression. Carotid artery stenosis status post carotid endarterectomy. cerebrovascular accident (CVA) essential tremors endometriosis scleroderma SLE. Fibromyalgia. Aortic valve stenosis with chronic heart murmur. pulmonary hypertension. aortic abdominal aneurysm measuring 3.1 cm. PAST SURGICAL HISTORY: Bowel ischemia s/p subtotal colectomy with ileostomy Right carotid endarterectomy. cervical fusion. cholecystectomy. section. Hysterectomy. 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 She currently uses E-cigarettes. She quit tobacco 5 years ago. She is presently retired. Does not use any alcohol or illicit drugs. FAMILY HISTORY: Notable for a brother with mesothelioma. Mom in her mid 60s from pancreatic cancer and her father is living, in his 90s presently, who has history of renal carcinoma. ALLERGIES: Please see below. REVIEW OF SYSTEMS: EYES: No recent vision changes EARS, NOSE, & THROAT: No throat pain, or dysphagia, or rhinorrhea CARDIOVASCULAR: Denies chest pain or palpitations PULMONARY: Denies shortness of breath GASTROINTESTINAL: ileostomy. wound vac. FECAL VOMITUS THIS MORNING. PROJECTILE. ABDOMINAL PAIN, WORSE IN EPIGASTRIUM GENITOURINARY: denies dysuria MUSCULOSKELETAL: generalized weakness NEUROLOGICAL: denies focal weakness HEMATOLOGICAL: denies easy bruising, +chronic anemia SKIN: +ileostomy, wound vac midline abdo PSYCHIATRIC: Unremarkable All other review of systems found to be negative. HOME MEDICATIONS: Please see below. PHYSICAL EXAMINATION: VITAL SIGNS: see below GENERAL APPEARANCE: NAD, comfortable HEENT: PERRLA, eomi. RESPIRATORY: lungs CTAB. CARDIOVASCULAR: RRR, normal S1, s2. ABDOMEN: wound vac, RLQ stoma, retracted, epigastric pain to palpation 7/10. Stoma bag tense with gas. EXTREMITIES: no edema. NEUROLOGICAL: no focal neuro deficits. PSYCHIATRIC: AAO x 3, calm, cooperative. LABORATORY DATA: See below. IMAGING: IMPRESSION: 1. There is a high-grade distal small-bowel obstruction. At least 1 transition point is identified in the mid anterior abdomen deep to the umbilicus. There may be a 2nd transition point at the ostomy site. There may be a 3rd transition point in the left upper quadrant. Evaluation is limited due to a paucity of oral contrast. Surgical consultation is recommended. 2. There is a 5.6 x 2.0 cm loculated fluid collection inferior to the right hepatic lobe, smaller than prior study. An underlying abscess cannot be excluded. 3. The urinary bladder is moderately distended. Consider Dudley catheter placement if clinically indicated. MICROBIOLOGY: Please see below. ASSESSMENT AND PLAN: 65 yo F with a hx of newly diagnosed Afib on eliquis, HTN, Scleroderma, fibromyalgia, chronic pain syndrome, recently underwent a subtotal colectomy on 03/28/20 for bowel ischemia. She was transfered to ARU with IV abx. On 04/13/20, transfered to inpatient unit with sepsis, CT abdo showing a developed abscess poss seroma in R abdomen. Underwent drainage of subhepatic collection. Wound vac placed for improved healing of dehisced wound. Completed course of flagyl and levaquin. Fecal vomitus, with worsening diffuse abdo pain. NGT placed. CT scan showing high grade SBO with multiple transition points. Gen Surg consulted. Transfered back to inpatient for surgical management. PROBLEMS: 1. Fecal vomiting: projectile fecal vomitus at 6 am. No blood seen. Reduced output in ileostomy bag. Suspect bowel obstruction. Hgb 12.4. WBC 10.6. Ordered stat NGT to LIS. NPO. Stat CT abdo pelvis with IV contrast. Start zosyn for empiric therapy. General surgery consult. 2. Subhepatic seroma/hematoma: s/p subtotal colectomy for ischemic colitis, with ileostomy. s/p drainage. VSS. completed course of abx. wound vac in place. 3. Generalized weakness: deconditioning. active PT at ARU. 4. Afib: rate control with amiodarone, atenolol. Eliquis for AC. Held 5. HTN: c/w atenolol 6. Dyslipidemia: crestor. 7. Chronic pain syndrome: cymbalta, gabapentin, tylenol. Given fluctuating levels of cog, recommend avoidance of sedating medications eg narcotics at this time. 8. Hx of CVA: asa/statin. hold ASA. Possible OR. DVT ppx: eliquis, on hold given SBO, possible OR. TEDs, SCDs. . Laboratory Data Labs 24H Vital Signs Date Time Temp Pulse Resp B/P (MAP) Pulse Ox O2 Delivery O2 Flow Rate FiO2 05/03/20 20:15 16 Room Air 05/03/20 20:05 18 Room Air 05/03/20 16:00 98.0 78 18 111/57 (75) 92 Room Air Laboratory Tests 05/03/20 16:58: White Blood Count 8.3, Red Blood Count 4.23, Hemoglobin 12.0, Hematocrit 38.4, Mean Corpuscular Volume 90.8, Mean Corpuscular Hemoglobin 28.4, Mean Corpuscular Hemoglobin Concent 31.3L, Red Cell Distribution Width 19.3H, Platelet Count 253, Immature Granulocyte % (Auto) 0.6, Neutrophils (%) (Auto) 62.1, Lymphocytes (%) (Auto) 20.9L, Monocytes (%) (Auto) 14.6H, Eosinophils (%) (Auto) 1.4, Basophils (%) (Auto) 0.4, Neutrophils # (Auto) 5.1, Lymphocytes # (Auto) 1.7, Monocytes # (Auto) 1.2H, Eosinophils # (Auto) 0.1, Basophils # (Auto) 0.0, Nucleated Red Blood Cells % (auto) 0.0, Prothrombin Time 21.8H, Prothromb Time International Ratio 1.85, Sodium Level 135L, Potassium Level 3.8, Chloride Level 99, Carbon Dioxide Level 32, Anion Gap 4L, Blood Urea Nitrogen 10, Creatinine 0.98, Glomerular Filtration Rate > 60.0, Fasting Glucose 86, Calcium Level 7.5L Current Medications Medications (Trade) Dose Ordered Sig/Nicolas Route PRN Reason Start Time Stop Time Status Last Admin Dose Admin Lactated Ringer's 1,000 ml @ 100 mls/hr Q10H IV 05/03/20 16:30 05/03/20 17:28 100 MLS/HR Metronidazole 500 mg/IV Miscellaneous Supplies 100 ml @ 100 mls/hr Q8H IV 05/03/20 22:00 05/03/20 21:11 100 MLS/HR Morphine Sulfate (Morphine Sulfate Inj) 2 mg Q4H PRN IV MODERATE PAIN (PS 5-7) 05/03/20 16:30 05/03/20 20:05 2 MG Home Medications Scheduled Amiodarone HCl (Amiodarone HCl) 200 Mg Tablet, 200 MG PO DAILY Apixaban (Eliquis) 5 Mg Tablet, 5 MG PO BID Aspirin (Aspir 81) 81 Mg Tablet.dr, 81 MG PO QHS Atenolol (Atenolol) 25 Mg Tablet, 12.5 MG PO DAILY Cholecalciferol (Vitamin D3) (Vitamin D3) 25 Mcg Tablet, 25 MCG PO DAILY Duloxetine Hcl (Duloxetine HCl) 30 Mg Capsule.dr, 60 MG PO QHS Duloxetine Hcl (Duloxetine HCl) 30 Mg Capsule.dr, 30 MG PO QAM Esomeprazole Magnesium (Nexium) 40 Mg Cap, 40 MG PO BID Folic Acid (Folic Acid) 1 Mg Tablet, 1 MG PO DAILY Furosemide (Furosemide) 40 Mg Tablet, 1 TAB PO DAILY Hold for SBP < 110 Gabapentin (Gabapentin) 300 Mg Capsule, 300 MG PO TID L.acidoph/L.bulg/B.bif/S.therm (Jaquelin-Bid Caplet) 1 Each Tablet, 1 EA PO TID Loratadine (Loratadine) 10 Mg Tablet, 10 MG PO QHS Magnesium Oxide (Magnesium) 250 Mg Tablet, 1 TAB PO DAILY Olanzapine (Olanzapine) 2.5 Mg Tablet, 2.5 MG PO BID Rosuvastatin Calcium (Rosuvastatin Calcium) 10 Mg Tablet, 10 MG PO QHS Tolterodine Tartrate (Detrol LA) 2 Mg Cap.er.24h, 2 MG PO DAILY Zolpidem Tartrate (Zolpidem Tartrate) 5 Mg Tablet, 5 MG PO QHS Scheduled PRN Hydrocodone/Acetaminophen (Hydrocodone-Acetamin 10-325 mg) 1 Each Tablet, 1 TAB PO QID PRN for PAIN Sennosides (Senna) 8.6 Mg Tablet, 43 MG PO QHS PRN for CONSTIPATION Allergies Coded Allergies: Penicillins (Verified Allergy, Severe, anyphylaxis, 07/30/19) Cephalosporins (Verified Adverse Reaction, Severe, red man syndrome, 04/29/20) A-FIB/CHADSVASC A-FIB History Current/History of A-Fib/PAF?: Yes Current PO Anticoag Therapy: Yes WINSOTN HOSKINS MD May 03, 2020 15:05
[2020-05-03 16:00] VITALS: BP 111/57
[2020-05-03 17:11] LABS: BASO % 0.4 % (0.0-1.0); EOS # 0.1 10^3/uL (0.0-0.5); EOS % 1.4 % (0.0-3.0); HEMATOCRIT 38.4 % (36.0-47.0); LYMPH # 1.7 10^3/uL (1.5-5.0); LYMPH % 20.9 % (24.0-44.0); MEAN CORPUSCULAR HEMOGLOBIN 28.4 pg (27.0-33.0); MEAN CORPUSCULAR HGB CONC 31.3 g/dl (32.0-36.5); MEAN CORPUSCULAR VOLUME 90.8 fl (80.0-96.0); MONO # 1.2 10^3/uL (0.0-0.8); MONO % 14.6 % (0.0-5.0); NEUTROPHILS # 5.1 10^3/uL (1.5-8.5); NEUTROPHILS % 62.1 % (36.0-66.0); PLATELET COUNT, AUTOMATED 253 10^3/uL (150-450); RED BLOOD COUNT 4.23 10^6/uL (4.00-5.40); WHITE BLOOD COUNT 8.3 10^3/uL (4.0-10.0)
[2020-05-03] MEDS: LR 1,000 ML IV SCH (17:28)
[2020-05-03 17:34] LABS: BLOOD UREA NITROGEN 10 MG/DL (7-18); CALCIUM LEVEL 7.5 MG/DL (8.8-10.2); CARBON DIOXIDE LEVEL 32 MEQ/L (21-32); CHLORIDE LEVEL 99 MEQ/L (98-107); CREATININE FOR GFR 0.98 MG/DL (0.55-1.30); GLOMERULAR FILTRATION RATE > 60.0 (>45); GLUCOSE, FASTING 86 MG/DL (70-100); POTASSIUM SERUM 3.8 MEQ/L (3.5-5.1); SODIUM LEVEL 135 MEQ/L (136-145)
[2020-05-03 17:43] LABS: INR 1.85; PROTHROMBIN TIME 21.8 SECONDS (11.8-14.0)
[2020-05-03] MEDS: MORPHINE 2 MG/ML 1ML VIAL (J2270) IV PRN (20:05)
[2020-05-03] MEDS ORDERED: PANTOPRAZOLE 40MG TAB (PROTONIX) PO SCH (21:00)
[2020-05-03] MEDS: metroNIDAZOLE 500 MG in IV 1 EA IV SCH (21:11)
[2020-05-03 22:00] VITALS: BP 113/58
[2020-05-03] MEDS ORDERED: SENNA 8.6 MG TAB (SENOKOT) PO PRN (22:00)
[2020-05-04] MEDS: LR 1,000 ML IV SCH ×3 (02:30→21:01)
[2020-05-04] MEDS: LevoFLOXacin IV 750 MG in IV 1 EA IV SCH (04:30)
[2020-05-04] MEDS: MORPHINE 2 MG/ML 1ML VIAL (J2270) IV PRN ×4 (04:34→17:33)
[2020-05-04 06:00] VITALS: BP 133/73
[2020-05-04] MEDS: metroNIDAZOLE 500 MG in IV 1 EA IV SCH ×3 (06:03→21:00)
[2020-05-04 06:48] LABS: BASO % 0.6 % (0.0-1.0); EOS # 0.1 10^3/uL (0.0-0.5); EOS % 1.7 % (0.0-3.0); HEMATOCRIT 36.1 % (36.0-47.0); HEMOGLOBIN 11.2 g/dl (12.0-15.5); LYMPH # 1.2 10^3/uL (1.5-5.0); LYMPH % 19.2 % (24.0-44.0); MEAN CORPUSCULAR HEMOGLOBIN 28.7 pg (27.0-33.0); MEAN CORPUSCULAR VOLUME 92.6 fl (80.0-96.0); MONO % 15.8 % (0.0-5.0); NEUTROPHILS # 3.9 10^3/uL (1.5-8.5); NEUTROPHILS % 61.9 % (36.0-66.0); PLATELET COUNT, AUTOMATED 231 10^3/uL (150-450); WHITE BLOOD COUNT 6.3 10^3/uL (4.0-10.0)
[2020-05-04 07:12] LABS: ALBUMIN 1.8 GM/DL (3.2-5.2); ALT/SGPT 7 U/L (12-78); BILIRUBIN,TOTAL 0.3 MG/DL (0.2-1.0); BLOOD UREA NITROGEN 8 MG/DL (7-18); CALCIUM LEVEL 7.4 MG/DL (8.8-10.2); CARBON DIOXIDE LEVEL 31 MEQ/L (21-32); CHLORIDE LEVEL 103 MEQ/L (98-107); CREATININE FOR GFR 0.91 MG/DL (0.55-1.30); GLOMERULAR FILTRATION RATE > 60.0 (>45); GLUCOSE, FASTING 89 MG/DL (70-100); POTASSIUM SERUM 3.5 MEQ/L (3.5-5.1); SODIUM LEVEL 140 MEQ/L (136-145); TOTAL PROTEIN 4.9 GM/DL (6.4-8.2)
[2020-05-04] MEDS: PANTOPRAZOLE 40MG VIAL (C9113 PER 1) IV SCH ×2 (08:40→21:00)
[2020-05-04] MEDS: OLANZapine 2.5MG TABLET PO SCH (08:42)
[2020-05-04] MEDS: FOLIC ACID 1 MG TAB PO SCH (08:42)
[2020-05-04] MEDS: FUROSEMIDE 40 MG TAB PO SCH (08:42)
[2020-05-04] MEDS: GABAPENTIN 300 MG CAP PO SCH (08:42)
[2020-05-04] MEDS: ATENOLOL 12.5MG PER 1/2 TABLET PO SCH (08:42)
[2020-05-04] MEDS: AMIODARONE 200 MG TAB (PACERONE) PO SCH (08:43)
[2020-05-04] MEDS: TOLTERODINE TARTRATE 2 MG LA CAP (DETROL LA) PO SCH (09:00)
[2020-05-04] MEDS: DULoxetine 30 MG CAP (CYMBALTA) PO SCH (09:00)
[2020-05-04] MEDS ORDERED: APIXABAN 5 MG TAB (ELIQUIS) PO SCH (09:00)
[2020-05-04 14:00] VITALS: BP_SYST 126; BP_SYST 129; BP_DIAS 72; BP_DIAS 79
--- NOTE | 2020-05-04 17:38 | IPNPDOC ---
Date Seen The patient was seen on 05/04/20. Progress Note SUBJECTIVE: patient was seen and examined at bedside. No acute events overnight. Afebrile. Abdo pain 6-7/10. No further vomitus. Denies CP. Stoma putting out bilious stool. GENERAL APPEARANCE: NAD, comfortable HEENT: PERRLA, eomi. RESPIRATORY: lungs CTAB. CARDIOVASCULAR: RRR, normal S1, s2. ABDOMEN: wound vac, RLQ stoma, retracted, epigastric pain to palpation 7/10. Stoma putting out bilious stool. EXTREMITIES: no edema. NEUROLOGICAL: no focal neuro deficits. PSYCHIATRIC: AAO x 3, calm, cooperative. LABORATORY DATA: See below. IMAGING: CT abdo pelvis: IMPRESSION: 1. There is a high-grade distal small-bowel obstruction. At least 1 transition point is identified in the mid anterior abdomen deep to the umbilicus. There may be a 2nd transition point at the ostomy site. There may be a 3rd transition point in the left upper quadrant. Evaluation is limited due to a paucity of oral contrast. Surgical consultation is recommended. 2. There is a 5.6 x 2.0 cm loculated fluid collection inferior to the right hepatic lobe, smaller than prior study. An underlying abscess cannot be excluded. 3. The urinary bladder is moderately distended. Consider Dudley catheter placement if clinically indicated. MICROBIOLOGY: Please see below. ASSESSMENT AND PLAN: 65 yo F with a hx of newly diagnosed Afib on eliquis, HTN, Scleroderma, fibromyalgia, chronic pain syndrome, recently underwent a subtotal colectomy on 03/28/20 for bowel ischemia. She was transfered to ARU with IV abx. On 04/13/20, transfered to inpatient unit with sepsis, CT abdo showing a developed abscess poss seroma in R abdomen. Underwent drainage of subhepatic collection. Wound vac placed for improved healing of dehisced wound. Completed course of flagyl and levaquin. Fecal vomitus, with worsening diffuse abdo pain. NGT placed. CT scan showing high grade SBO with multiple transition points. Gen Surg consulted. Transfered back to inpatient for surgical management. PROBLEMS: 1. SBO: projectile fecal vomitus at 6 am. No blood seen. Reduced output in ileostomy bag. Hgb 12.4. WBC trending down. Ordered stat NGT to LIS. NPO. zosyn. General surgery consult. Discussed with Dr. Johnson. Will likely require revision ileostomy, give retraction, possible site of obstruction at ostomy. 2. Subhepatic seroma/hematoma: s/p subtotal colectomy for ischemic colitis, with ileostomy. s/p drainage. VSS. completed course of abx. wound vac in place. 3. Generalized weakness: deconditioning. active PT at ARU. 4. Afib: rate control with amiodarone, atenolol. Eliquis for AC. Held 5. HTN: c/w atenolol 6. Dyslipidemia: crestor. 7. Chronic pain syndrome: cymbalta, gabapentin, tylenol. Given fluctuating levels of cog, recommend avoidance of sedating medications eg narcotics at this time. 8. Hx of CVA: asa/statin. hold ASA. Possible OR. DVT ppx: eliquis, on hold given SBO, possible OR. TEDs, SCDs. . VS, I&O, 24H, Fishbone Vital Signs/I&O Vital Signs Date Time Temp Pulse Resp B/P (MAP) Pulse Ox O2 Delivery O2 Flow Rate FiO2 05/04/20 17:33 16 05/04/20 14:00 98.6 81 126/72 (90) 96 Room Air I&O- Last 24 Hours up to 6 AM 05/04/20 06:00 Intake Total 1510 ml Output Total 225 ml Balance 1285 ml Laboratory Data 24H LABS Laboratory Tests 2 05/04/20 06:17: Immature Granulocyte % (Auto) 0.8, Neutrophils (%) (Auto) 61.9, Lymphocytes (%) (Auto) 19.2L, Monocytes (%) (Auto) 15.8H, Eosinophils (%) (Auto) 1.7, Basophils (%) (Auto) 0.6, Neutrophils # (Auto) 3.9, Lymphocytes # (Auto) 1.2L, Monocytes # (Auto) 1.0H, Eosinophils # (Auto) 0.1, Basophils # (Auto) 0.0, Nucleated Red Blood Cells % (auto) 0.0, Anion Gap 6L, Glomerular Filtration Rate > 60.0, C alcium Level 7.4L, Phosphorus Level 3.0, Magnesium Level 2.0, Total Bilirubin 0.3, Aspartate Amino Transf (AST/SGOT) 11, Alanine Aminotransferase (ALT/SGPT) 7L, Alkaline Phosphatase 64, Total Protein 4.9L, Albumin 1.8L, Albumin/Globulin Ratio 0.6L CBC/BMP Laboratory Tests 05/04/20 06:17 WINSTON HOSKINS MD May 04, 2020 17:38
[2020-05-04] MEDS ORDERED: ASPIRIN 81 MG ENTERIC TAB PO SCH (21:00)
[2020-05-04] MEDS: zolPIDEM TARTRATE 5 MG TAB PO SCH (21:00)
[2020-05-04 22:00] VITALS: BP 129/70
[2020-05-04] MEDS: MORPHINE 4 MG/ML 1ML VIAL/SYRINGE (J2270) IV PRN (22:04)
[2020-05-05] MEDS: LevoFLOXacin IV 750 MG in IV 1 EA IV SCH (03:58)
[2020-05-05] MEDS: metroNIDAZOLE 500 MG in IV 1 EA IV SCH ×3 (05:44→22:02)
[2020-05-05] MEDS: LR 1,000 ML IV SCH ×3 (05:44→19:52)
[2020-05-05] MEDS: MORPHINE 4 MG/ML 1ML VIAL/SYRINGE (J2270) IV PRN ×3 (05:44→19:53)
[2020-05-05 06:00] VITALS: BP 156/69
[2020-05-05 06:49] LABS: BASO % 0.3 % (0.0-1.0); EOS # 0.2 10^3/uL (0.0-0.5); EOS % 3.1 % (0.0-3.0); HEMATOCRIT 38.3 % (36.0-47.0); HEMOGLOBIN 11.7 g/dl (12.0-15.5); LYMPH # 1.1 10^3/uL (1.5-5.0); LYMPH % 18.9 % (24.0-44.0); MEAN CORPUSCULAR HEMOGLOBIN 28.5 pg (27.0-33.0); MEAN CORPUSCULAR HGB CONC 30.5 g/dl (32.0-36.5); MEAN CORPUSCULAR VOLUME 93.4 fl (80.0-96.0); MONO # 0.9 10^3/uL (0.0-0.8); MONO % 15.3 % (0.0-5.0); NEUTROPHILS # 3.6 10^3/uL (1.5-8.5); NEUTROPHILS % 61.4 % (36.0-66.0); PLATELET COUNT, AUTOMATED 204 10^3/uL (150-450); WHITE BLOOD COUNT 5.8 10^3/uL (4.0-10.0)
[2020-05-05 07:13] LABS: ALBUMIN 1.9 GM/DL (3.2-5.2); ALT/SGPT < 6 U/L (12-78); BILIRUBIN,TOTAL 0.4 MG/DL (0.2-1.0); BLOOD UREA NITROGEN 7 MG/DL (7-18); CALCIUM LEVEL 7.6 MG/DL (8.8-10.2); CARBON DIOXIDE LEVEL 31 MEQ/L (21-32); CHLORIDE LEVEL 104 MEQ/L (98-107); CREATININE FOR GFR 0.83 MG/DL (0.55-1.30); GLOMERULAR FILTRATION RATE > 60.0 (>45); GLUCOSE, FASTING 77 MG/DL (70-100); PHOSPHORUS LEVEL 2.4 MG/DL (2.5-4.9); POTASSIUM SERUM 3.6 MEQ/L (3.5-5.1); SODIUM LEVEL 140 MEQ/L (136-145); TOTAL PROTEIN 4.9 GM/DL (6.4-8.2)
[2020-05-05] MEDS: PANTOPRAZOLE 40MG VIAL (C9113 PER 1) IV SCH ×2 (08:56→22:02)
--- NOTE | 2020-05-05 10:27 | IPN ---
DATE: 05/04/2020 HISTORY: The patient was transferred from acute rehab back to the Medicine service yesterday after she showed evidence of a bowel obstruction. I saw her yesterday in consultation. Her CT scan shows a bowel obstruction that on my review suggests that the blockage is at the level of her ileostomy. Examination shows that she does not have any small bowel visible at the ostomy site. There is just an open wound with the ileostomy itself either necrosed and sloughed or perhaps just badly retracted. She has an NG tube in place. PHYSICAL EXAMINATION: VITAL SIGNS: Vital signs show that she has been afebrile over the past 24 hours. Her pulse is in the 70s and 80s, and her blood pressure is good. Intake and output show that yesterday after she was transferred she received 860 mL with 150 recorded out in NG output. She had several incontinent voids which were not measured. She did have a small amount of stool recorded out this morning. GENERAL APPEARANCE: The patient is lying quietly in the hospital bed. She is alert and responsive. NG tube appears to be appropriately placed with a minimal amount of turbid brownish fluid in the container and tubing. HEART: Regular rhythm and she is not tachycardic. LUNGS: Good bilateral breath sounds. ABDOMEN: A wound VAC dressinf is on a midline wound. There is an ostomy site in the right mid abdomen with an appliance in place. There is no fluid or stool coming from the ostomy at this point. Again, this appears just as an open, ragged edged wound with no bowel visible. The abdomen is not particularly distended. There is some mild diffuse tenderness throughout on palpation. LABORATORY STUDIES: This morning white count of 6, hemoglobin 11, hematocrit 36, and a platelet count of 231,000. Differential count shows 62% neutrophils, 19% lymphocytes and 16% monocytes. Chemistry profile shows normal electrolytes, BUN, creatinine and glucose. Liver function tests are normal. Total protein and albumin are both low at 4.9 and 1.8 respectively. A KUB done today shows some markedly dilated air filled loops of small bowel in the mid and upper abdomen. I do not see any definite air in bowel approaching her ostomy site. IMPRESSION: The patient has a small-bowel obstruction. The ostomy site shows that the small bowel has retracted and this appeared to be a point of obstruction on yesterdays CT scan. Today there are still some markedly dilated proximal small bowel loops though there is no air noted distally or approaching the ostomy appliance. PLAN: 1. The patient will be kept n.p.o. and off her anticoagulation for right now. 2. It may be worthwhile attempting some sort of contrast study to insure that the level of her obstruction is truly at the site of her stoma and not more proximal. 3. I will reassess her in the morning and try to determine how to proceed. ED
--- NOTE | 2020-05-05 12:02 | IPNPDOC ---
Date Seen The patient was seen on 05/05/20. Progress Note SUBJECTIVE: patient was seen and examined at bedside. No acute events overnight. Afebrile. Abdo pain /10. No further vomitus. Denies CP. Stoma putting out bilious stool. AA x 3. GENERAL APPEARANCE: NAD, comfortable HEENT: PERRLA, eomi. RESPIRATORY: lungs CTAB. CARDIOVASCULAR: RRR, normal S1, s2. ABDOMEN: wound vac, RLQ stoma, retracted, epigastric pain to palpation 03/07. Stoma putting out bilious stool. Abdomen is soft. No guarding. EXTREMITIES: no edema. NEUROLOGICAL: no focal neuro deficits. PSYCHIATRIC: AAO x 3, calm, cooperative. LABORATORY DATA: See below. IMAGING: CT abdo pelvis: IMPRESSION: 1. There is a high-grade distal small-bowel obstruction. At least 1 transition point is identified in the mid anterior abdomen deep to the umbilicus. There may be a 2nd transition point at the ostomy site. There may be a 3rd transition point in the left upper quadrant. Evaluation is limited due to a paucity of oral contrast. Surgical consultation is recommended. 2. There is a 5.6 x 2.0 cm loculated fluid collection inferior to the right hepatic lobe, smaller than prior study. An underlying abscess cannot be excluded. 3. The urinary bladder is moderately distended. Consider Dudley catheter placement if clinically indicated. MICROBIOLOGY: Please see below. ASSESSMENT AND PLAN: 65 yo F with a hx of newly diagnosed Afib on eliquis, HTN, Scleroderma, fibromyalgia, chronic pain syndrome, recently underwent a subtotal colectomy on 03/28/20 for bowel ischemia. She was transfered to ARU with IV abx. On 04/13/20, transfered to inpatient unit with sepsis, CT abdo showing a developed abscess poss seroma in R abdomen. Underwent drainage of subhepatic collection. Wound vac placed for improved healing of dehisced wound. Completed course of flagyl and levaquin. Fecal vomitus, with worsening diffuse abdo pain. NGT placed. CT scan showing high grade SBO with multiple transition points. Gen Surg consulted. Transfered back to inpatient for surgical management. PROBLEMS: 1. SBO: admitted for SBO, likely at level of ostomy. Dr. Johnson consulted. Patient will likely require surgery. VSS. Afebrile. No leukocytosis. Empiric zosyn. Pain control. 2. Subhepatic seroma/hematoma: s/p subtotal colectomy for ischemic colitis, with ileostomy. s/p drainage. VSS. completed course of abx. wound vac in place. 3. Generalized weakness: deconditioning. Will require ongoing PT after DC. 4. Afib: rate control with amiodarone, atenolol. Eliquis for AC. Held 5. HTN: c/w atenolol 6. Dyslipidemia: crestor. 7. Chronic pain syndrome: cymbalta, gabapentin, tylenol. 8. Hx of CVA: asa/statin. hold ASA. Possible OR. DVT ppx: eliquis, on hold given SBO, possible OR. TEDs, SCDs. . VS, I&O, 24H, Fishbone Vital Signs/I&O Vital Signs Date Time Temp Pulse Resp B/P (MAP) Pulse Ox O2 Delivery O2 Flow Rate FiO2 05/05/20 10:11 16 05/05/20 06:00 97.8 81 156/69 (98) 93 Room Air I&O- Last 24 Hours up to 6 AM 05/05/20 05:59 Intake Total 2700 ml Output Total 600 ml Balance 2100 ml Laboratory Data 24H LABS Laboratory Tests 2 05/05/20 06:27: Immature Granulocyte % (Auto) 1.0, Neutrophils (%) (Auto) 61.4, Lymphocytes (%) (Auto) 18.9L, Monocytes (%) (Auto) 15.3H, Eosinophils (%) (Auto) 3.1H, Basophils (%) (Auto) 0.3, Neutrophils # (Auto) 3.6, Lymphocytes # (Auto) 1.1L, Monocytes # (Auto) 0.9H, Eosinophils # (Auto) 0.2, Basophils # (Auto) 0.0, Nucleated Red Blood Cells % (auto) 0.0, Anion Gap 5L, Glomerular Filtration Rate > 60.0, Calcium Level 7.6L, Phosphorus Level 2.4L, Magnesium Level 2.0, Total Bilirubin 0.4, Aspartate Amino Transf (AST/SGOT) 11, Alanine Aminotransferase (ALT/SGPT) < 6L, Alkaline Phosphatase 60, Total Protein 4.9L, Albumin 1.9L, Albumin/Globulin Ratio 0.6L CBC/BMP Laboratory Tests 9/7/20 06:27 WINSTON HOSKINS MD May 05, 2020 12:02
[2020-05-05] MEDS: ONDANSETRON 4MG/2ML VIAL IV PRN (12:58)
[2020-05-05 14:00] VITALS: BP 154/69
[2020-05-05] MEDS: GABAPENTIN 300 MG CAP PO SCH ×2 (15:19→22:02)
[2020-05-05] MEDS: OLANZapine 2.5MG TABLET PO SCH (21:00)
[2020-05-05 22:00] VITALS: BP 151/70
[2020-05-05] MEDS: zolPIDEM TARTRATE 5 MG TAB PO SCH (22:01)
[2020-05-05] MEDS: LORATADINE 10 MG TAB PO SCH (22:01)
[2020-05-05] MEDS: DULoxetine 30 MG CAP (CYMBALTA) PO SCH (22:02)
[2020-05-05] MEDS: ROSUVASTATIN 10 MG TAB (CRESTOR) PO SCH (22:02)
[2020-05-06] MEDS: MORPHINE 4 MG/ML 1ML VIAL/SYRINGE (J2270) IV PRN ×6 (00:13→22:53)
[2020-05-06] MEDS: LevoFLOXacin IV 750 MG in IV 1 EA IV SCH (03:52)
[2020-05-06] MEDS: metroNIDAZOLE 500 MG in IV 1 EA IV SCH ×3 (05:46→21:14)
[2020-05-06 06:00] VITALS: BP 107/52
[2020-05-06 06:12] LABS: BASO % 0.3 % (0.0-1.0); EOS # 0.2 10^3/uL (0.0-0.5); EOS % 3.3 % (0.0-3.0); HEMATOCRIT 34.5 % (36.0-47.0); HEMOGLOBIN 10.3 g/dl (12.0-15.5); LYMPH # 1.1 10^3/uL (1.5-5.0); LYMPH % 18.5 % (24.0-44.0); MEAN CORPUSCULAR HEMOGLOBIN 28.1 pg (27.0-33.0); MEAN CORPUSCULAR HGB CONC 29.9 g/dl (32.0-36.5); MEAN CORPUSCULAR VOLUME 94.3 fl (80.0-96.0); MONO # 0.7 10^3/uL (0.0-0.8); MONO % 12.1 % (0.0-5.0); PLATELET COUNT, AUTOMATED 189 10^3/uL (150-450); RED BLOOD COUNT 3.66 10^6/uL (4.00-5.40); WHITE BLOOD COUNT 6.1 10^3/uL (4.0-10.0)
[2020-05-06 06:37] LABS: ALBUMIN 1.8 GM/DL (3.2-5.2); ALT/SGPT 6 U/L (12-78); BILIRUBIN,TOTAL 0.4 MG/DL (0.2-1.0); BLOOD UREA NITROGEN 6 MG/DL (7-18); CALCIUM LEVEL 7.4 MG/DL (8.8-10.2); CARBON DIOXIDE LEVEL 25 MEQ/L (21-32); CHLORIDE LEVEL 103 MEQ/L (98-107); CREATININE FOR GFR 0.64 MG/DL (0.55-1.30); GLOMERULAR FILTRATION RATE > 60.0 (>45); GLUCOSE, FASTING 64 MG/DL (70-100); MAGNESIUM LEVEL 1.8 MG/DL (1.8-2.4); PHOSPHORUS LEVEL 2.5 MG/DL (2.5-4.9); POTASSIUM SERUM 3.3 MEQ/L (3.5-5.1); SODIUM LEVEL 137 MEQ/L (136-145); TOTAL PROTEIN 4.7 GM/DL (6.4-8.2)
[2020-05-06] MEDS: PANTOPRAZOLE 40MG VIAL (C9113 PER 1) IV SCH ×2 (08:22→21:13)
[2020-05-06] MEDS ORDERED: E-Z-PAQUE 96% w/w SUSP 176GM BTL As Ordered ONE (09:57)
[2020-05-06] MEDS ORDERED: LIDOCAINE 1% MDV 20ML VIAL As Ordered ONE (10:27)
--- NOTE | 2020-05-06 10:27 | IPN ---
DATE: 05/05/2020 HISTORY: The patient is somewhat over a month out from her exploratory laparotomy and subtotal colectomy with ileostomy. She was on rehab and developed nausea and vomiting 2 days ago and was transferred back to the acute care locke. She clearly requires revision of her ileostomy as this has either retracted or necrosed. The CT scan done 2 days ago shows evidence for a small-bowel obstruction. Initially I thought this was at the level of her stoma but on further review, and following a KUB yesterday, I think it is likely that her bowel obstruction is more proximal in the small bowel. She remains with an NG tube in place. PHYSICAL EXAMINATION: VITAL SIGNS: Vital signs show that she has been afebrile over the past 24 hours. Pulse is in the 80s and her blood pressure is good. Intake and output show that yesterday she had 2,500 in with 600 recorded out. She did have 500 mL of stool noted as well as a small amount of gastric output. She had several unmeasured voids and incontinent voids. GENERAL APPEARANCE: The patient today appears somewhat more alert but reports she just feels bad overall. She is not having any nausea or vomiting and the NG tube remains in place. ABDOMEN: as called in to see her when the wound VAC was being replaced and her midline incision is open and looks to be granulating well and healing. This is a bilobed open wound with two segments that are 8-10 cm in length and about 3 cm in width and one and a half to two cm deep, at the umbilicus by a bridge of healed skin at the umbilicus. Her stoma site is on the right but there is just a jagged open wound with no mucosa showing, as I believe this has retracted about to the level of the fascia. The abdomen is somewhat full and she has a few bowel sounds present. LABORATORY STUDIES: Today white count of 6, hemoglobin 12, hematocrit 38 and a platelet count of 204,000. Differential shows 61 neutrophils, 19% lymphocytes and 15% monocytes. Chemistry profile shows normal electrolytes, BUN, creatinine and glucose. Liver function tests are within normal limits. Her protein is 4.9 with an album of 1.9. KUB from yesterday I reviewed, and there are several markedly dilated small bowel loops in the upper mid abdomen but there does not appear to be any significant or visible air in the small bowel distal to this point. There is certainly no air in the right lower quadrant or in the area where her ileostomy would be located. IMPRESSION: Small-bowel obstruction, likely more proximal though she also will require revision of her ileostomy. RECOMMENDATIONS: At this point I have ordered a repeat KUB to reassess her bowel loops. I think that if surgery is required for her bowel obstruction, that this could be quite difficult given her recent surgery, and her nutrition is poor at this time. I would recommend placement of a PICC line and I have taken the liberty of ordering this, although it will probably not be done until tomorrow. I believe she should be on total parenteral nutrition to try to improve her nutrition prior to the potential need of abdominal surgery. With any luck, this will resolve over the next couple of days. She should continue the wound VAC. I did communicate by text with the hospitalist about my recommendation for TPN. MTDD
[2020-05-06] MEDS: DULoxetine 30 MG CAP (CYMBALTA) PO SCH ×2 (14:24→21:12)
[2020-05-06] MEDS: FOLIC ACID 1 MG TAB PO SCH (14:24)
[2020-05-06 14:25] VITALS: BP 167/88
[2020-05-06] MEDS: GABAPENTIN 300 MG CAP PO SCH ×3 (14:25→21:11)
[2020-05-06] MEDS: FUROSEMIDE 40 MG TAB PO SCH (14:26)
[2020-05-06] MEDS: AMIODARONE 200 MG TAB (PACERONE) PO SCH (14:27)
[2020-05-06] MEDS: OLANZapine 2.5MG TABLET PO SCH ×2 (14:27→21:12)
[2020-05-06] MEDS: TOLTERODINE TARTRATE 2 MG LA CAP (DETROL LA) PO SCH (14:27)
[2020-05-06] MEDS: ATENOLOL 12.5MG PER 1/2 TABLET PO SCH (14:28)
[2020-05-06] MEDS: KCL 10MEQ/100ML SWI (KRUN) 10 MEQ in IV 1 EA IV SCH ×4 (14:29→18:40)
[2020-05-06] MEDS: LR 1,000 ML IV SCH (16:27)
[2020-05-06] MEDS ORDERED: KCL 10MEQ IN STERILE WATER 100ML As Ordered ONE ×2 (17:10→18:23)
[2020-05-06] MEDS: AMINO AC/ELECTROLYTE/DEX/CALC 2,000 ML IV SCH (18:38)
[2020-05-06] MEDS: FAT EMULSION IV 20% 500 ML IV SCH (18:39)
[2020-05-06] MEDS: ONDANSETRON 4MG/2ML VIAL IV PRN (18:40)
--- NOTE | 2020-05-06 19:50 | IPNPDOC ---
Subjective Date Seen The patient was seen on 05/06/20. Subjective Chief Complaint/HPI Patient is a 65 year old female with fibromyalgia, chronic pain syndrome, and recent subtotal colectomy on 03/28/20 for bowel ischemia here for SBO. No events overnight. She continues with NGT. No change in abdominal pain, although she feels pain all over from fibromyalgia. No events overnight. Constitutional: Denies: Chills, Fever Eyes: Denies: Vision change ENT: Reports: Other Symptoms (Irritation from NG tube) Pulmonary: Denies: Dyspnea Cardiovascular: Denies: Chest Pain Gastrointestinal: Reports: Abdominal Pain Genitourinary: Denies: Dysuria Objective Physical Examination General Exam: Positive: Alert, Cooperative, No Acute Distress Eye Exam: Positive: EOMI; Negative: Sclera icteric Neck Exam: Positive: Supple Chest Exam: Positive: Clear to auscultation, Normal air movement Heart Exam: Positive: Rate Normal, Regular Rhythm Abdomen Exam: Positive: BS Hypoactive Neuro Exam: Positive: Normal Speech Psych Exam: Positive: Mental status NL, Mood NL Assessment /Plan Assessment Patient is a 65 year old female with fibromyalgia and chronic pain syndrome here for SBO. On 03/28/2020 she had subtotal colectomy for bowel ischemia and t ransferred to ARU for IV antibiotics. on 04/13/2020, she was transferred to inpatient unit for sepsis with seroma. She underwent drainage of subhepatic collection and wound vac was placed. She completed a course of flagyl and levaquin. Then she had Fecal vomitus with worsening abdominal pain. She was found to have high grade SBO with multiple transition points. General surgery following, pending surgery Plan/VTE VTE Prophylaxis Ordered?: Yes Plan 1. SBO. CT demonstrated multiple transition points. General surgery is following, recommendations appreciated. Continue NG tube. Started TPN today. Currently on levofloxacin and metronidazole 2. Subhepatic seroma/hematoma. S/p drainage. Completed course on antibiotics. Wound vac in place 3. Atrial fibrillation. On amiodarone and atenolol. Eliquis held for surgery 4. HTN. Continue with atenolol 5. Generalized weakness: Deconditioning. Will need PT on DC 6. Dyslipidemia: Crestor 7. Chronic pain syndrome: Olanzapine, Duloxetine, Gabapentin 8. DVT ppx: SCD and TEDS. Off anticoagulation pending surgery VS, I&O, 24H, [place] Vital Signs/I&O Vital Signs Date Time Temp Pulse Resp B/P (MAP) Pulse Ox O2 Delivery O2 Flow Rate FiO2 05/06/20 18:42 18 Nasal Cannula 0.5 05/06/20 14:28 85 167/88 05/06/20 14:25 98.3 94 I&O- Last 24 Hours up to 6 AM 05/06/20 06:00 Intake Total 1200 ml Output Total 1350 ml Balance -150 ml Laboratory Data 24H LABS Laboratory Tests 2 05/06/20 05:35: Immature Granulocyte % (Auto) 0.8, Neutrophils (%) (Auto) 65.0, Lymphocytes (%) (Auto) 18.5L, Monocytes (%) (Auto) 12.1H, Eosinophils (%) (Auto) 3.3H, Basophils (%) (Auto) 0.3, Neutrophils # (Auto) 4.0, Lymphocytes # (Auto) 1.1L, Monocytes # (Auto) 0.7, Eosinophils # (Auto) 0.2, Basophils # (Auto) 0.0, Nucleated Red Blood Cells % (auto) 0.0, Anion Gap 9, Glomerular Filtration Rate > 60.0, Calcium Level 7.4L, Phosphorus Level 2.5, Magnesium Level 1.8, Total Bilirubin 0.4, Aspartate Amino Transf (AST/SGOT) 10, Alanine Aminotransferase (ALT/SGPT) 6L, Alkaline Phosphatase 53, Total Protein 4.7L, Albumin 1.8L, Albumin/Globulin Ratio 0.6L CBC/BMP Laboratory Tests 05/06/20 05:35 LUIS AMIN DO May 06, 2020 19:50
[2020-05-06] MEDS: LORATADINE 10 MG TAB PO SCH (21:12)
[2020-05-06] MEDS: ROSUVASTATIN 10 MG TAB (CRESTOR) PO SCH (21:12)
[2020-05-06] MEDS: zolPIDEM TARTRATE 5 MG TAB PO SCH (21:13)
[2020-05-06 22:00] VITALS: BP 155/82
[2020-05-06] MEDS: SODIUM CHLORIDE 0.9% INJ 10 ML SYR IV PRN (22:54)
[2020-05-07] MEDS: LevoFLOXacin IV 750 MG in IV 1 EA IV SCH (03:57)
[2020-05-07] MEDS: MORPHINE 4 MG/ML 1ML VIAL/SYRINGE (J2270) IV PRN ×4 (04:08→16:51)
[2020-05-07] MEDS: metroNIDAZOLE 500 MG in IV 1 EA IV SCH ×3 (05:53→21:41)
[2020-05-07 06:00] VITALS: BP 138/75
[2020-05-07 06:28] LABS: BASO % 0.6 % (0.0-1.0); EOS # 0.4 10^3/uL (0.0-0.5); EOS % 6.3 % (0.0-3.0); HEMATOCRIT 34.4 % (36.0-47.0); HEMOGLOBIN 10.7 g/dl (12.0-15.5); LYMPH # 1.2 10^3/uL (1.5-5.0); MEAN CORPUSCULAR HEMOGLOBIN 28.5 pg (27.0-33.0); MEAN CORPUSCULAR HGB CONC 31.1 g/dl (32.0-36.5); MEAN CORPUSCULAR VOLUME 91.7 fl (80.0-96.0); MONO # 0.9 10^3/uL (0.0-0.8); MONO % 13.6 % (0.0-5.0); NEUTROPHILS # 3.9 10^3/uL (1.5-8.5); NEUTROPHILS % 60.3 % (36.0-66.0); PLATELET COUNT, AUTOMATED 187 10^3/uL (150-450); RED BLOOD COUNT 3.75 10^6/uL (4.00-5.40); WHITE BLOOD COUNT 6.5 10^3/uL (4.0-10.0)
[2020-05-07 06:57] LABS: ALBUMIN 1.8 GM/DL (3.2-5.2); ALT/SGPT 8 U/L (12-78); BILIRUBIN,TOTAL 0.4 MG/DL (0.2-1.0); BLOOD UREA NITROGEN 10 MG/DL (7-18); CALCIUM LEVEL 7.5 MG/DL (8.8-10.2); CARBON DIOXIDE LEVEL 29 MEQ/L (21-32); CHLORIDE LEVEL 100 MEQ/L (98-107); CREATININE FOR GFR 0.74 MG/DL (0.55-1.30); GLOMERULAR FILTRATION RATE > 60.0 (>45); GLUCOSE, FASTING 140 MG/DL (70-100); MAGNESIUM LEVEL 1.8 MG/DL (1.8-2.4); PHOSPHORUS LEVEL 2.6 MG/DL (2.5-4.9); POTASSIUM SERUM 3.3 MEQ/L (3.5-5.1); SODIUM LEVEL 135 MEQ/L (136-145); TOTAL PROTEIN 4.9 GM/DL (6.4-8.2)
[2020-05-07] MEDS: SODIUM CHLORIDE 0.9% INJ 10 ML SYR IV SCH ×2 (07:21→17:05)
[2020-05-07] MEDS: DULoxetine 30 MG CAP (CYMBALTA) PO SCH ×2 (08:45→21:40)
[2020-05-07] MEDS: OLANZapine 2.5MG TABLET PO SCH ×2 (08:45→21:41)
[2020-05-07] MEDS: GABAPENTIN 300 MG CAP PO SCH ×3 (08:45→21:41)
[2020-05-07] MEDS: TOLTERODINE TARTRATE 2 MG LA CAP (DETROL LA) PO SCH (08:46)
[2020-05-07] MEDS: FOLIC ACID 1 MG TAB PO SCH (08:46)
[2020-05-07] MEDS: FUROSEMIDE 40 MG TAB PO SCH (08:47)
[2020-05-07] MEDS: ATENOLOL 12.5MG PER 1/2 TABLET PO SCH (08:47)
[2020-05-07] MEDS: AMIODARONE 200 MG TAB (PACERONE) PO SCH (08:47)
[2020-05-07] MEDS: PANTOPRAZOLE 40MG VIAL (C9113 PER 1) IV SCH ×2 (08:47→21:40)
[2020-05-07] MEDS: SODIUM CHLORIDE 0.9% INJ 10 ML SYR IV PRN (12:52)
[2020-05-07 14:00] VITALS: BP 102/62
[2020-05-07] MEDS ORDERED: AMINO AC/ELECTROLYTE/DEX/CALC 2,000 ML IV SCH (18:00)
[2020-05-07] MEDS ORDERED: FAT EMULSION IV 20% 500 ML IV SCH (18:00)
[2020-05-07] MEDS: AMINO AC/ELECTROLYTE/DEX/CALC 2,000 ML IV SCH (18:24)
[2020-05-07] MEDS: FAT EMULSION IV 20% 500 ML IV SCH (18:24)
[2020-05-07] MEDS: LORATADINE 10 MG TAB PO SCH (21:40)
[2020-05-07] MEDS: ROSUVASTATIN 10 MG TAB (CRESTOR) PO SCH (21:41)
[2020-05-07] MEDS: zolPIDEM TARTRATE 5 MG TAB PO SCH (21:41)
[2020-05-07] MEDS: CHLORASEPTIC SPRAY MT PRN (21:47)
[2020-05-07 22:00] VITALS: BP 146/73
[2020-05-08] MEDS: LevoFLOXacin IV 750 MG in IV 1 EA IV SCH (03:34)
[2020-05-08] MEDS: CHLORASEPTIC SPRAY MT PRN (03:38)
[2020-05-08] MEDS: metroNIDAZOLE 500 MG in IV 1 EA IV SCH (05:26)
[2020-05-08 06:00] VITALS: BP 112/67
[2020-05-08 06:02] LABS: BASO % 0.3 % (0.0-1.0); EOS # 0.5 10^3/uL (0.0-0.5); EOS % 5.5 % (0.0-3.0); HEMATOCRIT 37.4 % (36.0-47.0); HEMOGLOBIN 11.7 g/dl (12.0-15.5); LYMPH # 1.4 10^3/uL (1.5-5.0); LYMPH % 15.9 % (24.0-44.0); MEAN CORPUSCULAR HEMOGLOBIN 28.7 pg (27.0-33.0); MEAN CORPUSCULAR HGB CONC 31.3 g/dl (32.0-36.5); MEAN CORPUSCULAR VOLUME 91.9 fl (80.0-96.0); MONO # 1.1 10^3/uL (0.0-0.8); MONO % 12.2 % (0.0-5.0); NEUTROPHILS # 5.6 10^3/uL (1.5-8.5); NEUTROPHILS % 64.8 % (36.0-66.0); PLATELET COUNT, AUTOMATED 178 10^3/uL (150-450); RED BLOOD COUNT 4.07 10^6/uL (4.00-5.40); WHITE BLOOD COUNT 8.6 10^3/uL (4.0-10.0)
[2020-05-08 06:14] LABS: INR 1.14; PROTHROMBIN TIME 14.9 SECONDS (11.8-14.0)
[2020-05-08 06:28] LABS: BLOOD UREA NITROGEN 16 MG/DL (7-18); CALCIUM LEVEL 7.6 MG/DL (8.8-10.2); CARBON DIOXIDE LEVEL 31 MEQ/L (21-32); CHLORIDE LEVEL 101 MEQ/L (98-107); GLOMERULAR FILTRATION RATE > 60.0 (>45); GLUCOSE, FASTING 112 MG/DL (70-100); POTASSIUM SERUM 3.2 MEQ/L (3.5-5.1); SODIUM LEVEL 137 MEQ/L (136-145)
[2020-05-08] MEDS: SODIUM CHLORIDE 0.9% INJ 10 ML SYR IV SCH ×2 (06:38→18:15)
[2020-05-08] MEDS: MORPHINE 4 MG/ML 1ML VIAL/SYRINGE (J2270) IV PRN ×3 (06:55→20:17)
[2020-05-08] MEDS: OLANZapine 2.5MG TABLET PO SCH ×2 (08:30→20:16)
[2020-05-08] MEDS: KCL 10MEQ/100ML SWI (KRUN) 10 MEQ in IV 1 EA IV SCH ×4 (08:30→12:14)
[2020-05-08] MEDS: FUROSEMIDE 40 MG TAB PO SCH (08:31)
[2020-05-08] MEDS: GABAPENTIN 300 MG CAP PO SCH ×3 (08:31→20:16)
[2020-05-08] MEDS: FOLIC ACID 1 MG TAB PO SCH (08:31)
[2020-05-08] MEDS: DULoxetine 30 MG CAP (CYMBALTA) PO SCH ×2 (08:31→20:16)
[2020-05-08] MEDS: AMIODARONE 200 MG TAB (PACERONE) PO SCH (08:31)
[2020-05-08] MEDS: TOLTERODINE TARTRATE 2 MG LA CAP (DETROL LA) PO SCH (08:31)
[2020-05-08 08:32] VITALS: BP 112/67
[2020-05-08] MEDS: ATENOLOL 12.5MG PER 1/2 TABLET PO SCH (08:32)
[2020-05-08] MEDS: PANTOPRAZOLE 40MG VIAL (C9113 PER 1) IV SCH ×2 (08:32→20:16)
[2020-05-08 14:00] VITALS: BP 86/48
[2020-05-08] MEDS ORDERED: NS 500 ML IV ONE ×2 (14:30→19:00)
[2020-05-08] MEDS ORDERED: PERCOCET 5MG/325MG TAB PO ONE (14:30)
--- NOTE | 2020-05-08 15:05 | IPNPDOC ---
Subjective Date Seen The patient was seen on 05/08/20. Subjective Chief Complaint/HPI Patient is a 65 year old female with fibromyalgia, chronic pain syndrome, and recent subtotal colectomy on 03/28/20 for bowel ischemia here for SBO. No events overnight. Still has abdominal pain/tenderness and continues with NGT. She tells me she has not had much output from ostomy bag. Otherwise denies fever/chills, chest pain, dyspnea, or dysuria Constitutional: Denies: Chills, Fever Eyes: Denies: Vision change ENT: Reports: Sore Throat Pulmonary: Denies: Dyspnea Cardiovascular: Denies: Chest Pain Gastrointestinal: Reports: Abdominal Pain Genitourinary: Denies: Dysuria Objective Physical Examination General Exam: Positive: Alert, Cooperative, No Acute Distress Eye Exam: Positive: EOMI; Negative: Sclera icteric Neck Exam: Positive: Supple Chest Exam: Positive: Clear to auscultation, Normal air movement Heart Exam: Positive: Rate Normal, Regular Rhythm Abdomen Exam: Positive: BS Hypoactive, Soft, Tenderness Extremity Exam: Negative: Edema Neuro Exam: Positive: Normal Speech Psych Exam: Positive: Mental status NL, Mood NL Assessment /Plan Assessment Patient is a 65 year old female with fibromyalgia and chronic pain syndrome here for SBO. On 03/28/2020 she had subtotal colectomy for bowel ischemia and tr ansferred to ARU for IV antibiotics. on 04/13/2020, she was transferred to inpatient unit for sepsis with seroma. She underwent drainage of subhepatic collection and wound vac was placed. She completed a course of flagyl and levaquin. Then she had Fecal vomitus with worsening abdominal pain. She was found to have high grade SBO with multiple transition points. General surgery following, pending surgery Plan/VTE VTE Prophylaxis Ordered?: Yes Plan 1. SBO. CT demonstrated multiple transition points. General surgery is following, recommendations appreciated. Continue NG tube. Continuing TPN today. Will discontinue antibiotics today. She had sore throat yesterday secondary to NG tube, but improved with Chloraseptic spray. Continue spray 2. Subhepatic seroma/hematoma. S/p drainage. Completed course of antibiotics. Wound vac in place 3. Atrial fibrillation. On amiodarone and atenolol. Eliquis held for surgery 4. HTN. Continue with atenolol 5. Generalized weakness: Deconditioning. Will need PT on DC 6. Dyslipidemia: Crestor 7. Chronic pain syndrome: Olanzapine, Duloxetine, Gabapentin 8. DVT ppx: SCD and TEDS. Off anticoagulation pending surgery VS, I&O, 24H, Fishbone Vital Signs/I&O Vital Signs Date Time Temp Pulse Resp B/P (MAP) Pulse Ox O2 Delivery O2 Flow Rate FiO2 05/08/20 09:57 18 05/08/20 08:32 85 112/67 05/08/20 06:00 98.1 95 Room Air 05/07/20 21:00 0.5 I&O- Last 24 Hours up to 6 AM 05/08/20 06:00 Intake Total 2100 ml Output Total 2475 ml Balance -375 ml Laboratory Data 24H LABS Laboratory Tests 2 05/07/20 12:00: Bedside Glucose (Misc Panel) 135H 05/07/20 15:13: Coronavirus (COVID-19)(PCR) NEGATIVE 05/07/20 17:20: Bedside Glucose (Misc Panel) 139H 05/07/20 20:21: Bedside Glucose (Misc Panel) 153H 05/08/20 00:09: Bedside Glucose (Misc Panel) 152H 05/08/20 05:43: Immature Granulocyte % (Auto) 1.3, Neutrophils (%) (Auto) 64.8, Lymphocytes (%) (Auto) 15.9L, Monocytes (%) (Auto) 12.2H, Eosinophils (%) (Auto) 5.5H, Basophils (%) (Auto) 0.3, Neutrophils # (Auto) 5.6, Lymphocytes # (Auto) 1.4L, Monocytes # (Auto) 1.1H, Eosinophils # (Auto) 0.5, Basophils # (Auto) 0.0, Nucleated Red Blood Cells % (auto) 0.0, Prothrombin Time 14.9H, Prothromb Time International Ratio 1.14, Anion Gap 5L, Glomerular Filtration Rate > 60.0, Calcium Level 7.6L 05/08/20 06:03: Bedside Glucose (Misc Panel) 105 CBC/BMP Laboratory Tests 05/08/20 05:43 LUIS AMIN DO May 08, 2020 10:33
--- NOTE | 2020-05-08 15:12 | IPNPDOC ---
Subjective Date Seen The patient was seen on 05/07/20. Note from 05/07/2020 had not been saved and has been entered 05/08/2020 Subjective Chief Complaint/HPI Patient is a 65 year old female with fibromyalgia, chronic pain syndrome, and recent subtotal colectomy on 03/28/20 for bowel ischemia here for SBO. No events overnight yesterday. Today, she felt about the same. Still has abdominal pain and does not have output from ostomy bag. She has sore throat from the NG tube. Otherwise, denies fever/chills, chest pain, shortness of breath, or dysuria Constitutional: Denies: Chills, Fever ENT: Reports: Sore Throat Pulmonary: Denies: Dyspnea Cardiovascular: Denies: Chest Pain Gastrointestinal: Reports: Abdominal Pain Genitourinary: Denies: Dysuria Objective Physical Examination General Exam: Positive: Alert, Cooperative, No Acute Distress Eye Exam: Positive: EOMI; Negative: Sclera icteric Neck Exam: Positive: Supple Chest Exam: Positive: Clear to auscultation, Normal air movement Heart Exam: Positive: Rate Normal, Regular Rhythm Abdomen Exam: Positive: BS Hypoactive, Soft, Tenderness Extremity Exam: Negative: Edema Neuro Exam: Positive: Normal Speech Psych Exam: Positive: Mental status NL, Mood NL Assessment /Plan Assessment Patient is a 65 year old female with fibromyalgia and chronic pain syndrome here for SBO. On 03/28/2020 she had subtotal colectomy for bowel ischemia and transferred to ARU for IV antibiotics. on 04/13/2020, she was transferred to inpatient unit for sepsis with seroma. She underwent drainage of subhepatic collection and wound vac was placed. She completed a course of flagyl and levaquin. Then she had Fecal vomitus with worsening abdominal pain. She was found to have high grade SBO with multiple transition points. General surgery following, pending surgery Plan/VTE VTE Prophylaxis Ordered?: Yes Plan This is plan from 05/07/2020. Note was lost (not saved) yesterday 1. SBO. CT demonstrated multiple transition points. General surgery is following, recommendations appreciated. Continue NG tube. Continue TPN today. Currently on levofloxacin and metronidazole 2. Subhepatic seroma/hematoma. S/p drainage. Completed course on antibiotics. Wound vac in place 3. Atrial fibrillation. On amiodarone and atenolol. Eliquis held for surgery 4. HTN. Continue with atenolol 5. Generalized weakness: Deconditioning. Will need PT on DC 6. Dyslipidemia: Crestor 7. Chronic pain syndrome: Olanzapine, Duloxetine, Gabapentin 8. DVT ppx: SCD and TEDS. Off anticoagulation pending surgery VS, I&O, 24H, Fishbone Vital Signs/I&O Vital Signs Date Time Temp Pulse Resp B/P (MAP) Pulse Ox O2 Delivery O2 Flow Rate FiO2 05/08/20 15:02 16 05/08/20 08:32 85 112/67 05/08/20 06:00 98.1 95 Room Air 05/07/20 21:00 0.5 I&O- Last 24 Hours up to 6 AM 05/08/20 05:59 Intake Total 2100 ml Output Total 2300 ml Balance -200 ml Laboratory Data 24H LABS Laboratory Tests 2 05/07/20 15:13: Coronavirus (COVID-19)(PCR) NEGATIVE 05/07/20 17:20: Bedside Glucose (Misc Panel) 139H 05/07/20 20:21: Bedside Glucose (Misc Panel) 153H 05/08/20 00:09: Bedside Glucose (Misc Panel) 152H 05/08/20 05:43: Immature Granulocyte % (Auto) 1.3, Neutrophils (%) (Auto) 64.8, Lymphocytes (%) (Auto) 15.9L, Monocytes (%) (Auto) 12.2H, Eosinophils (%) (Auto) 5.5H, Basophils (%) (Auto) 0.3, Neutrophils # (Auto) 5.6, Lymphocytes # (Auto) 1.4L, Monocytes # (Auto) 1.1H, Eosinophils # (Auto) 0.5, Basophils # (Auto) 0.0, Nucleated Red Blood Cells % (auto) 0.0, Prothrombin Time 14.9H, Prothromb Time International Ratio 1.14, Anion Gap 5L, Glomerular Filtration Rate > 60.0, Calcium Level 7.6L 05/08/20 06:03: Bedside Glucose (Misc Panel) 105 05/08/20 11:59: Bedside Glucose (Misc Panel) 124H CBC/BMP Laboratory Tests 05/08/20 05:43 LUIS AMIN DO May 08, 2020 15:12
[2020-05-08 16:04] VITALS: BP 104/52
[2020-05-08] MEDS ORDERED: FAT EMULSION IV 20% 500 ML IV SCH (18:00)
[2020-05-08] MEDS ORDERED: AMINO AC/ELECTROLYTE/DEX/CALC 2,000 ML IV SCH (18:00)
[2020-05-08 18:44] VITALS: BP 103/74
[2020-05-08] MEDS ORDERED: oxyCODONE 5MG TAB PO ONE (19:00)
[2020-05-08] MEDS: ROSUVASTATIN 10 MG TAB (CRESTOR) PO SCH (20:16)
[2020-05-08] MEDS: LORATADINE 10 MG TAB PO SCH (20:16)
[2020-05-08] MEDS: zolPIDEM TARTRATE 5 MG TAB PO SCH (20:16)
[2020-05-08 22:00] VITALS: BP 106/71
[2020-05-09] VITALS (9 sets, daily range): BP systolic 109–145; BP diastolic 67–76
[2020-05-09 06:29] LABS: BLOOD UREA NITROGEN 19 MG/DL (7-18); CALCIUM LEVEL 7.4 MG/DL (8.8-10.2); CARBON DIOXIDE LEVEL 30 MEQ/L (21-32); CHLORIDE LEVEL 103 MEQ/L (98-107); CREATININE FOR GFR 0.75 MG/DL (0.55-1.30); GLOMERULAR FILTRATION RATE > 60.0 (>45); GLUCOSE, FASTING 118 MG/DL (70-100); POTASSIUM SERUM 3.5 MEQ/L (3.5-5.1); SODIUM LEVEL 137 MEQ/L (136-145)
[2020-05-09] MEDS: SODIUM CHLORIDE 0.9% INJ 10 ML SYR IV SCH ×2 (06:34→18:00)
[2020-05-09] MEDS ORDERED: ONDANSETRON 4MG/2ML VIAL As Ordered ONE (07:06)
[2020-05-09] MEDS ORDERED: LIDOCAINE 2% 100MG/5ML SDV (FOR ANES.) As Ordered ONE (07:06)
[2020-05-09] MEDS ORDERED: propofoL 200 MG/20 ML VIAL As Ordered ONE (07:06)
[2020-05-09] MEDS ORDERED: ROCURONIUM BROMIDE 50 MG/5 ML VIAL As Ordered ONE ×3 (07:06→10:48)
[2020-05-09] MEDS ORDERED: dexameTHASONE 4 MG/ML 1ML VIAL (J1100 PER 1MG) As Ordered ONE (07:06)
[2020-05-09] MEDS ORDERED: fentaNYL 100 MCG/2 ML INJECTION (J3010) As Ordered ONE ×2 (07:07→09:33)
[2020-05-09] MEDS ORDERED: MIDAZOLAM INJ 2MG/2ML VIAL (J2250 PER 1MG) As Ordered ONE (07:07)
[2020-05-09] MEDS ORDERED: KCL 10MEQ/100ML SWI (KRUN) 10 MEQ in IV 1 EA IV ONE (07:30)
[2020-05-09] MEDS ORDERED: GLUCAGON INJ 1MG VIAL As Ordered ONE (08:25)
[2020-05-09] MEDS ORDERED: CLINDAMYCIN 600 MG/50 ML PREMIX BAG As Ordered ONE (08:59)
[2020-05-09] MEDS ORDERED: CLINDAMYCIN 900 MG/50 ML PREMIX BAG As Ordered ONE (09:00)
[2020-05-09] MEDS: GABAPENTIN 300 MG CAP PO SCH ×3 (09:00→21:23)
[2020-05-09] MEDS ORDERED: PHENYLEPHRINE 10MG/ML 1ML VIAL (J2370 PER 1) As Ordered ONE ×2 (09:30→10:38)
[2020-05-09] MEDS ORDERED: CLINDAMYCIN 900 MG in IV 1 EA IV ONE ×2 (10:00→11:00)
[2020-05-09] MEDS ORDERED: AZTREONAM 2 GM in D5W MINI-BAG PLUS 50 ML IV ONE (10:00)
[2020-05-09] MEDS ORDERED: SUGAMMADEX SODIUM 500 MG/5 ML VIAL (BRIDION) As Ordered ONE (10:38)
[2020-05-09] MEDS ORDERED: BUPIVACAINE LIPOSOME/PF 1.3% 20ML VIAL (13.3MG/ML)(EXPAREL)(C9290 PER1MG) As Ordered ONE (11:56)
[2020-05-09] MEDS ORDERED: BUPIVACAINE HCL 0.25% 10ML VIAL As Ordered ONE (11:56)
--- NOTE | 2020-05-09 12:31 | IPNPDOC ---
Subjective Date Seen The patient was seen on 05/09/20. Subjective Chief Complaint/HPI Patient is a 65 year old female with fibromyalgia, chronic pain syndrome, and recent subtotal colectomy on 03/28/20 for bowel ischemia here for SBO. No events overnight. She was seen this morning prior to going down to surgery. She was feeling well. Denies fever/chills, chest pain, shortness of breath, or dysuria. NG tube was out. Constitutional: Denies: Chills, Fever ENT: Denies: Head Aches Pulmonary: Denies: Dyspnea Cardiovascular: Denies: Chest Pain Gastrointestinal: Reports: Abdominal Pain Genitourinary: Denies: Dysuria Objective Physical Examination General Exam: Positive: Alert, Cooperative, No Acute Distress Eye Exam: Positive: EOMI; Negative: Sclera icteric Neck Exam: Positive: Supple Chest Exam: Positive: Clear to auscultation, Normal air movement Heart Exam: Positive: Rate Normal, Regular Rhythm Abdomen Exam: Positive: BS Hypoactive, Soft, Tenderness Extremity Exam: Negative: Edema Neuro Exam: Positive: Normal Speech Psych Exam: Positive: Mental status NL, Mood NL Assessment /Plan Assessment Patient is a 65 year old female with fibromyalgia and chronic pain syndrome here for SBO. On 03/28/2020 she had subtotal colectomy for bowel ischemia and transferred to ARU for IV antibiotics. on 04/13/2020, she was transferred to inpatient unit for sepsis with seroma. She underwent drainage of subhepatic collection and wound vac was placed. She completed a course of flagyl and levaquin. Then she had fecal vomitus with worsening abdominal pain. She was found to have high grade SBO with multiple transition points. General surgery has been following and has taken the patient down to surgery today Plan/VTE VTE Prophylaxis Ordered?: Yes Plan 1. SBO. CT demonstrated multiple transition points. General surgery is following, recommendations appreciated. Going to surgery today. 2. Subhepatic seroma/hematoma. S/p drainage. Completed course of antibiotics. Wound vac in place 3. Atrial fibrillation. On amiodarone and atenolol. Eliquis held for surgery 4. HTN. Continue with atenolol 5. Generalized weakness: Deconditioning. Will need PT on DC 6. Dyslipidemia: Crestor 7. Chronic pain syndrome: Olanzapine, Duloxetine, Gabapentin 8. DVT ppx: SCD and TEDS. Off anticoagulation pending surgery VS, I&O, 24H, Fishbone Vital Signs/I&O Vital Signs Date Time Temp Pulse Resp B/P (MAP) Pulse Ox O2 Delivery O2 Flow Rate FiO2 05/09/20 06:00 98.8 86 16 109/70 (83) 96 Room Air 0.5 I&O- Last 24 Hours up to 6 AM 05/09/20 06:00 Intake Total 1880 ml Output Total 2350 ml Balance -470 ml Laboratory Data 24H LABS Laboratory Tests 2 05/08/20 18:49: Bedside Glucose (Misc Panel) 123H 05/08/20 20:22: Bedside Glucose (Misc Panel) 123H 05/09/20 02:52: Bedside Glucose (Misc Panel) 105 05/09/20 05:48: Anion Gap 4L, Glomerular Filtration Rate > 60.0, Calcium Level 7.4L 05/09/20 06:29: Bedside Glucose (Misc Panel) 118H CBC/BMP Laboratory Tests 05/09/20 05:48 LUIS AMIN DO May 09, 2020 12:31
[2020-05-09] MEDS ORDERED: HYDROmorphone HCL 2 MG/ML 1ML VIAL (J1170) As Ordered ONE (12:35)
[2020-05-09] MEDS ORDERED: LR 1,000 ML IV SCH (13:45)
[2020-05-09] MEDS ORDERED: fentaNYL 100 MCG/2 ML INJECTION (J3010) IV PRN (13:45)
[2020-05-09] MEDS ORDERED: HYDROMORPHONE HCL 0.5 MG/ 0.5 ML SYRINGE (J1170 PER 1) IV PRN (13:45)
[2020-05-09] MEDS ORDERED: ONDANSETRON 4MG/2ML VIAL IV PRN (13:45)
[2020-05-09] MEDS: DULoxetine 30 MG CAP (CYMBALTA) PO SCH ×2 (14:32→21:22)
[2020-05-09] MEDS: TOLTERODINE TARTRATE 2 MG LA CAP (DETROL LA) PO SCH (14:32)
[2020-05-09] MEDS: AMIODARONE 200 MG TAB (PACERONE) PO SCH (14:32)
[2020-05-09] MEDS: OLANZapine 2.5MG TABLET PO SCH ×2 (14:32→21:22)
[2020-05-09] MEDS: FOLIC ACID 1 MG TAB PO SCH (14:32)
[2020-05-09] MEDS: MORPHINE 2 MG/ML 1ML VIAL (J2270) IV PRN ×3 (14:52→21:24)
[2020-05-09] MEDS: KETOROLAC 30 MG/ML 1ML VIAL IV PRN (16:15)
[2020-05-09] MEDS: AZTREONAM 1 GM in D5W MINI-BAG PLUS 50 ML IV SCH (17:18)
[2020-05-09] MEDS ORDERED: FAT EMULSION IV 20% 500 ML IV SCH (18:00)
[2020-05-09] MEDS ORDERED: AMINO AC/ELECTROLYTE/DEX/CALC 2,000 ML IV SCH (18:00)
[2020-05-09] MEDS: oxyCODONE 5MG TAB PO PRN (18:23)
[2020-05-09] MEDS: CLINDAMYCIN 900 MG in IV 1 EA IV SCH (18:50)
[2020-05-09] MEDS: zolPIDEM TARTRATE 5 MG TAB PO SCH (21:21)
[2020-05-09] MEDS: ROSUVASTATIN 10 MG TAB (CRESTOR) PO SCH (21:22)
[2020-05-09] MEDS: LORATADINE 10 MG TAB PO SCH (21:23)
[2020-05-10] MEDS: AZTREONAM 1 GM in D5W MINI-BAG PLUS 50 ML IV SCH ×2 (01:30→08:58)
[2020-05-10] MEDS: KETOROLAC 30 MG/ML 1ML VIAL IV PRN ×3 (01:30→20:57)
[2020-05-10 02:00] VITALS: BP 131/71
[2020-05-10] MEDS: CLINDAMYCIN 900 MG in IV 1 EA IV SCH ×2 (02:29→10:20)
[2020-05-10 06:00] VITALS: BP 128/77
[2020-05-10] MEDS: SODIUM CHLORIDE 0.9% INJ 10 ML SYR IV SCH ×2 (06:45→18:45)
[2020-05-10 07:00] LABS: BASO # 0.1 10^3/uL (0.0-0.2); BASO % 0.5 % (0.0-1.0); EOS % 0.1 % (0.0-3.0); HEMATOCRIT 29.5 % (36.0-47.0); HEMOGLOBIN 9.3 g/dl (12.0-15.5); LYMPH # 0.9 10^3/uL (1.5-5.0); LYMPH % 9.5 % (24.0-44.0); MEAN CORPUSCULAR HEMOGLOBIN 28.8 pg (27.0-33.0); MEAN CORPUSCULAR HGB CONC 31.5 g/dl (32.0-36.5); MEAN CORPUSCULAR VOLUME 91.3 fl (80.0-96.0); MONO # 0.9 10^3/uL (0.0-0.8); MONO % 9.5 % (0.0-5.0); NEUTROPHILS # 7.6 10^3/uL (1.5-8.5); NEUTROPHILS % 78.2 % (36.0-66.0); PLATELET COUNT, AUTOMATED 154 10^3/uL (150-450); RED BLOOD COUNT 3.23 10^6/uL (4.00-5.40); WHITE BLOOD COUNT 9.8 10^3/uL (4.0-10.0)
[2020-05-10 07:15] LABS: ALBUMIN 1.7 GM/DL (3.2-5.2); ALT/SGPT 7 U/L (12-78); BILIRUBIN,TOTAL 0.2 MG/DL (0.2-1.0); BLOOD UREA NITROGEN 21 MG/DL (7-18); CALCIUM LEVEL 7.4 MG/DL (8.8-10.2); CARBON DIOXIDE LEVEL 26 MEQ/L (21-32); CHLORIDE LEVEL 101 MEQ/L (98-107); CREATININE FOR GFR 0.64 MG/DL (0.55-1.30); GLOMERULAR FILTRATION RATE > 60.0 (>45); GLUCOSE, FASTING 147 MG/DL (70-100); SODIUM LEVEL 132 MEQ/L (136-145); TOTAL PROTEIN 4.7 GM/DL (6.4-8.2)
[2020-05-10] MEDS: TOLTERODINE TARTRATE 2 MG LA CAP (DETROL LA) PO SCH (08:58)
[2020-05-10] MEDS: AMIODARONE 200 MG TAB (PACERONE) PO SCH (08:58)
[2020-05-10] MEDS: ENOXAPARIN 40MG/0.4ML SYRINGE (J1650 PER 10MG) SC SCH (08:58)
[2020-05-10] MEDS: GABAPENTIN 300 MG CAP PO SCH ×3 (08:59→20:56)
[2020-05-10] MEDS: OLANZapine 2.5MG TABLET PO SCH ×2 (08:59→20:56)
[2020-05-10] MEDS: FOLIC ACID 1 MG TAB PO SCH (08:59)
[2020-05-10] MEDS: PANTOPRAZOLE 40MG TAB (PROTONIX) PO SCH (08:59)
[2020-05-10] MEDS: oxyCODONE 5MG TAB PO PRN ×2 (08:59→14:57)
[2020-05-10] MEDS: DULoxetine 30 MG CAP (CYMBALTA) PO SCH ×2 (09:00→20:56)
[2020-05-10 10:00] VITALS: BP 123/70
[2020-05-10] MEDS: MORPHINE 2 MG/ML 1ML VIAL (J2270) IV PRN ×4 (10:20→22:53)
[2020-05-10] MEDS: SODIUM CHLORIDE 0.9% INJ 10 ML SYR IV PRN ×3 (11:43→18:51)
--- NOTE | 2020-05-10 12:53 | IPNPDOC ---
Subjective Date Seen The patient was seen on 05/10/20. Subjective Chief Complaint/HPI Patient is a 65 year old female with fibromyalgia, chronic pain syndrome, and recent subtotal colectomy on 03/28/20 for bowel ischemia here for SBO. Yesterday, she went down for surgery for SBO. POD#1. This morning, she was aware, alert, and orientated. She has pain 2/2 surgery, but otherwise denies fever/chills, chest pain, dyspnea, or dysuria. General: Denies: Chills Constitutional: Denies: Chills, Fever ENT: Denies: Head Aches, Sore Throat Pulmonary: Denies: Dyspnea Cardiovascular: Denies: Chest Pain Gastrointestinal: Reports: Abdominal Pain Genitourinary: Denies: Dysuria Objective Physical Examination General Exam: Positive: Alert, Cooperative, No Acute Distress Eye Exam: Positive: EOMI; Negative: Sclera icteric Neck Exam: Positive: Supple Chest Exam: Positive: Clear to auscultation, Normal air movement Heart Exam: Positive: Rate Normal, Regular Rhythm Abdomen Exam: Positive: BS Hypoactive, Soft, Tenderness Extremity Exam: Negative: Edema Neuro Exam: Positive: Normal Speech Psych Exam: Positive: Mental status NL, Mood NL Assessment /Plan Assessment Patient is a 65 year old female with fibromyalgia and chronic pain syndrome here for SBO. On 03/28/2020 she had subtotal colectomy for bowel ischemia and transferred to ARU for IV antibiotics. on 04/13/2020, she was transferred to inpatient unit for sepsis with seroma. She underwent drainage of subhepatic collection and wound vac was placed. She completed a course of flagyl and levaquin. Then she had fecal vomitus with worsening abdominal pain. She was found to have high grade SBO with multiple transition points. General surgery took her down for surgery on 05/10/2020. Today is POD#1. Otherwise, she will need rehab. Plan/VTE VTE Prophylaxis Ordered?: Yes Plan 1. SBO. CT demonstrated multiple transition points. General surgery is following, recommendations appreciated. When to surgery on 05/09/2020. Today is POD #1. Patient is currently on a clear liquid diet. 2. Subhepatic seroma/hematoma. S/p drainage. Completed course of antibiotics. 3. Atrial fibrillation. On amiodarone and atenolol. Spoke with surgery. Okay to restart anticoagulation tomorrow 4. HTN. Atenolol was held due to hypotension. Continue to monitor 5. Generalized weakness: Deconditioning. Will need rehab 6. Dyslipidemia: Crestor 7. Chronic pain syndrome: Olanzapine, Duloxetine, Gabapentin 8. DVT ppx: SCD and TEDS. Off anticoagulation, okay to restart tomorrow Dispo: Will need rehab VS, I&O, 24H, Fishbone Vital Signs/I&O Vital Signs Date Time Temp Pulse Resp B/P (MAP) Pulse Ox O2 Delivery O2 Flow Rate FiO2 05/10/20 10:30 18 05/10/20 09:00 0.5 05/10/20 06:00 97.0 95 128/77 (94) 94 Nasal Cannula I&O- Last 24 Hours up to 6 AM 05/10/20 06:00 Intake Total 3900 ml Output Total 2125 ml Balance 1775 ml Laboratory Data 24H LABS Laboratory Tests 2 05/09/20 19:29: Bedside Glucose (Misc Panel) 221H 05/10/20 00:24: Bedside Glucose (Misc Panel) 156H 05/10/20 06:03: Bedside Glucose (Misc Panel) 149H 05/10/20 06:25: Immature Granulocyte % (Auto) 2.2, Neutrophils (%) (Auto) 78.2H, Lymphocytes (%) (Auto) 9.5L, Monocytes (%) (Auto) 9.5H, Eosinophils (%) (Auto) 0.1, Basophils (%) (Auto) 0.5, Neutrophils # (Auto) 7.6, Lymphocytes # (Auto) 0.9L, Monocytes # (Auto) 0.9H, Eosinophils # (Auto) 0.0, Basophils # (Auto) 0.1, Nucleated Red Blood Cells % (auto) 0.0, Anion Gap 5L, Glomerular Filtration Rate > 60.0, Calcium Level 7.4L, Total Bilirubin 0.2, Aspartate Amino Transf (AST/SGOT) 12, Alanine Aminotransferase (ALT/SGPT) 7L, Alkaline Phosphatase 47, Total Protein 4.7L, Albumin 1.7L, Albumin/Globulin Ratio 0.6L CBC/BMP Laboratory Tests 05/10/20 06:25 LUIS AMIN DO May 10, 2020 12:53
[2020-05-10 14:00] VITALS: BP 123/68
[2020-05-10] MEDS ORDERED: AMINO AC/ELECTROLYTE/DEX/CALC 2,000 ML IV SCH (18:00)
[2020-05-10] MEDS ORDERED: FAT EMULSION IV 20% 500 ML IV SCH (18:00)
[2020-05-10] MEDS: ROSUVASTATIN 10 MG TAB (CRESTOR) PO SCH (20:56)
[2020-05-10] MEDS: zolPIDEM TARTRATE 5 MG TAB PO SCH (20:56)
[2020-05-10] MEDS: LORATADINE 10 MG TAB PO SCH (20:56)
[2020-05-10 22:00] VITALS: BP 127/66
[2020-05-11] MEDS: oxyCODONE 5MG TAB PO PRN ×2 (00:54→10:41)
[2020-05-11 02:00] VITALS: BP 126/66
[2020-05-11] MEDS: MORPHINE 2 MG/ML 1ML VIAL (J2270) IV PRN ×2 (03:57→18:18)
[2020-05-11 05:15] LABS: BASO # 0.1 10^3/uL (0.0-0.2); EOS # 0.5 10^3/uL (0.0-0.5); HEMATOCRIT 34.2 % (36.0-47.0); HEMOGLOBIN 10.8 g/dl (12.0-15.5); LYMPH # 1.8 10^3/uL (1.5-5.0); LYMPH % 16.1 % (24.0-44.0); MEAN CORPUSCULAR HEMOGLOBIN 28.5 pg (27.0-33.0); MEAN CORPUSCULAR HGB CONC 31.6 g/dl (32.0-36.5); MEAN CORPUSCULAR VOLUME 90.2 fl (80.0-96.0); MONO # 1.1 10^3/uL (0.0-0.8); MONO % 9.8 % (0.0-5.0); NEUTROPHILS # 7.4 10^3/uL (1.5-8.5); NEUTROPHILS % 64.8 % (36.0-66.0); PLATELET COUNT, AUTOMATED 180 10^3/uL (150-450); RED BLOOD COUNT 3.79 10^6/uL (4.00-5.40); WHITE BLOOD COUNT 11.4 10^3/uL (4.0-10.0)
[2020-05-11] MEDS: SODIUM CHLORIDE 0.9% INJ 10 ML SYR IV SCH ×2 (05:18→18:18)
[2020-05-11 05:41] LABS: BLOOD UREA NITROGEN 21 MG/DL (7-18); CALCIUM LEVEL 7.9 MG/DL (8.8-10.2); CARBON DIOXIDE LEVEL 26 MEQ/L (21-32); CHLORIDE LEVEL 100 MEQ/L (98-107); CREATININE FOR GFR 0.68 MG/DL (0.55-1.30); GLOMERULAR FILTRATION RATE > 60.0 (>45); GLUCOSE, FASTING 107 MG/DL (70-100); POTASSIUM SERUM 3.8 MEQ/L (3.5-5.1); SODIUM LEVEL 128 MEQ/L (136-145)
[2020-05-11 06:00] VITALS: BP 128/67
[2020-05-11] MEDS: ONDANSETRON 4MG/2ML VIAL IV PRN ×2 (06:48→10:42)
[2020-05-11] MEDS: DULoxetine 30 MG CAP (CYMBALTA) PO SCH ×2 (09:15→20:40)
[2020-05-11] MEDS: ENOXAPARIN 40MG/0.4ML SYRINGE (J1650 PER 10MG) SC SCH (09:15)
[2020-05-11] MEDS: oxyCODONE 10 MG CR TAB PO SCH ×2 (09:15→20:41)
[2020-05-11] MEDS: AMIODARONE 200 MG TAB (PACERONE) PO SCH (09:15)
[2020-05-11] MEDS: PANTOPRAZOLE 40MG TAB (PROTONIX) PO SCH (09:16)
[2020-05-11] MEDS: GABAPENTIN 300 MG CAP PO SCH ×3 (09:16→20:40)
[2020-05-11] MEDS: OLANZapine 2.5MG TABLET PO SCH ×2 (09:16→20:42)
[2020-05-11] MEDS: ACETAMINOPHEN TAB 650MG DOSE (2X325MG) PO SCH ×3 (09:16→20:40)
[2020-05-11] MEDS: FOLIC ACID 1 MG TAB PO SCH (09:16)
[2020-05-11 10:00] VITALS: BP 126/62
[2020-05-11] MEDS: TOLTERODINE TARTRATE 2 MG LA CAP (DETROL LA) PO SCH (10:35)
[2020-05-11] MEDS: SODIUM CHLORIDE 0.9% INJ 10 ML SYR IV PRN (10:41)
--- NOTE | 2020-05-11 11:32 | IPNPDOC ---
Subjective Date Seen The patient was seen on 05/11/20. Subjective Chief Complaint/HPI Patient is a 65 year old female with fibromyalgia, chronic pain syndrome, and recent subtotal colectomy on 03/28/20 for bowel ischemia here for SBO, s/p surgery. Today is POD#2. This morning, she was in more pain. Morphine, oxyIR, and tramadol did not help with the pain. In addition, she felt that she was having a lot of urine output, but no dysuria. She has a cleary in place. Denies fever/chills, chest pain, dyspnea. She was having abdominal pain secondary to surgery. Constitutional: Denies: Chills, Fever Eyes: Denies: Pain Pulmonary: Denies: Dyspnea Cardiovascular: Denies: Chest Pain Gastrointestinal: Reports: Abdominal Pain Genitourinary: Denies: Dysuria Objective Physical Examination General Exam: Positive: Alert, Cooperative, Mild Distress (From pain) Eye Exam: Positive: EOMI; Negative: Sclera icteric Neck Exam: Positive: Supple Chest Exam: Positive: Clear to auscultation, Normal air movement Heart Exam: Positive: Rate Normal, Regular Rhythm Abdomen Exam: Positive: BS Hypoactive, Tenderness Extremity Exam: Negative: Edema Neuro Exam: Positive: Normal Speech Psych Exam: Positive: Mental status NL, Mood NL Assessment /Plan Assessment Patient is a 65 year old female with fibromyalgia and chronic pain syndrome here for SBO. On 03/28/2020 she had subtotal colectomy for bowel ischemia and transferred to ARU for IV antibiotics. on 04/13/2020, she was transferred to inpatient unit for sepsis with seroma. She underwent drainage of subhepatic collection and wound vac was placed. She completed a course of flagyl and levaquin. Then she had fecal vomitus with worsening abdominal pain. She was found to have high grade SBO with multiple transition points. General surgery took her down for surgery on 05/09/2020. Today is POD#2. Otherwise, she will need rehab. Plan/VTE VTE Prophylaxis Ordered?: Yes Plan 1. SBO. CT demonstrated multiple transition points. General surgery is following, recommendations appreciated. When to surgery on 05/09/2020. Today is POD #2. Patient is currently on a mechanical soft diet. 2. Subhepatic seroma/hematoma. S/p drainage. Completed course of antibiotics. 3. Atrial fibrillation. On amiodarone and atenolol. Spoke with surgery today. Okay to start anticoagulation this evening 4. HTN. Atenolol was held due to hypotension. Continue to monitor 5. Generalized weakness: Deconditioning. Will need rehab 6. Dyslipidemia: Crestor 7. Chronic pain syndrome: Olanzapine, Duloxetine, Gabapentin 8. Hyponatremia: Sodium has been steadily declining while on TPN. Today 128. Spoke with surgery, her oral intake while on mechanical soft is not sufficient enough. Will decrease TPN from 60 to 25mL/hr. Will recheck sodium in the afternoon 9. DVT ppx: SCD and TEDS. Will restart anticoagulation this evening Dispo: Will need rehab VS, I&O, 24H, Fishbone Vital Signs/I&O Vital Signs Date Time Temp Pulse Resp B/P (MAP) Pulse Ox O2 Delivery O2 Flow Rate FiO2 05/11/20 10:41 16 Room Air 05/11/20 06:00 97.6 102 128/67 (87) 99 05/10/20 14:00 0.5 I&O- Last 24 Hours up to 6 AM 05/11/20 05:59 Intake Total 1230 ml Output Total 2525 ml Balance -1295 ml Laboratory Data 24H LABS Laboratory Tests 2 05/11/20 05:05: Immature Granulocyte % (Auto) 4.3H, Neutrophils (%) (Auto) 64.8, Lymphocytes (%) (Auto) 16.1L, Monocytes (%) (Auto) 9.8H, Eosinophils (%) (Auto) 4.0H, Basophils (%) (Auto) 1.0, Neutrophils # (Auto) 7.4, Lymphocytes # (Auto) 1.8, Monocytes # (Auto) 1.1H, Eosinophils # (Auto) 0.5, Basophils # (Auto) 0.1, Nucleated Red Blood Cells % (auto) 0.0, Anion Gap 2L, Glomerular Filtration Rate > 60.0, Calcium Level 7.9L CBC/BMP Laboratory Tests 05/11/20 05:05 LUIS AMIN DO May 11, 2020 11:21
--- NOTE | 2020-05-11 13:28 | IPN ---
DATE: 05/07/2020 HISTORY: The patient underwent a total abdominal colectomy about 6 weeks ago. She was on rehab and developed a small-bowel obstruction. Some of this may relate to a very stenotic ileostomy which is quite retracted. She had a small bowel study yesterday. For this I do not have any dictated report, but review of the images shows that there was some delay in transit through the small bowel, but the contrast passed all the way through to the ileostomy appliance. There was some marked narrowing noted at the ileostomy itself. Vital signs show that the patient has been afebrile over the past 24 hours. Her pulse has remained in the 70s and 80s and her blood pressure is good. Intake and output show that yesterday she had 1,100 in with 3,500 out in urine with 400 of gastric drainage. The patient Hospitalist has been giving her some Lasix. PHYSICAL EXAMINATION: GENERAL APPEARANCE: The patient is fairly alert and seems comfortable. HEART: Regular rhythm. LUNGS: Clear. ABDOMEN: Her ileostomy has a bag in the right lower quadrant, contains some barium contrast consistent with passage of the barium. The abdomen is flat and she has fairly active bowel sounds. LABORATORY STUDIES: Today white count of 6, hemoglobin 11, hematocrit 34 with a platelet count of 187,000. Her differential count is normal. Chemistries show a potassium of 3.3 and the electrolytes are otherwise normal. Liver function tests are normal and her total protein and albumin are 4.9 and 1.8 which is fairly stable for her. IMPRESSION: The patient tolerated the small bowel study and this showed no evidence of complete blockage with some delay in transit but the contrast has made it through easily to her ostomy appliance. PLAN: The patient will have her NG tube clamped today. If she tolerates this, we will consider removing her NG tube and starting her on some clear liquids. She will remain on her total parenteral nutrition for now. I am going to schedule tentatively for revision of her ileostomy on Tuesday, 05/09, as this will still need to be done even if any concerns about bowel obstruction elsewhere in the abdomen have resolved. ED
--- NOTE | 2020-05-11 13:29 | IPN ---
DATE: 05/08/2020 HISTORY: The patient is being followed for a very stenotic, retracted ileostomy and had a small bowel study on 05/06 that showed flow of contrast to through to her stoma. Her NG tube was clamped yesterday and she has tolerated this well. A KUB this morning shows that the contrast has basically completely cleared her GI tract. The patient reports she is fairly comfortable, and having no nausea or significant abdominal pain. Her biggest complaint is about the NG tube. Vital signs show that she has been afebrile. Her pulse is in the 70s to low 90s. Her blood pressure is good. Intake and output show that she had 1,800 in yesterday with 2,500 out. This is almost all urine output. PHYSICAL EXAMINATION: GENERAL APPEARANCE: The patient is alert and oriented. HEART: Regular rhythm. LUNGS: Clear. ABDOMEN: Flat. Her wound VAC remains on her midline. She has her ileostomy low in the right lower quadrant. This has a small amount of watery liquid in the bag. LABORATORY STUDIES: Sodium of 137, potassium 3.2, chloride 101, CO2 of 31, BUN of 16, creatinine 0.7 and a glucose of 112. Her CBC showed a white count of 9, hemoglobin 12, hematocrit 37 and a platelet count of 178. Differential count was effectively normal. As noted, her KUB showed that the contrast had cleared completely out of her GI tract. IMPRESSION: Patient clearly has flow of contrast through the GI tract. PLAN: The patients NG tube has been clamped since yesterday. This will be removed. I will start her on some clear liquids. I counseled her that now that there is no concern about any more proximal obstruction, I think we should go ahead and repair her ileostomy. I advised her that it is unclear exactly how difficult this will be. I anticipate trying to work through the ileostomy site to free up bowel. I would likely then move the ileostomy slightly higher up in the right abdominal wall and close the existing site. It is possible that she will be so adhesed that a more formal laparotomy would be required. It might be possible to accomplish some of this laparoscopically, and I could consider this at the time as well based on the findings. The patient is agreeable with this plan. Hopefully this would be the last surgery she would require and she could then proceed with her recuperation unhindered. ED
[2020-05-11 13:47] LABS: BLOOD UREA NITROGEN 19 MG/DL (7-18); CALCIUM LEVEL 7.8 MG/DL (8.8-10.2); CARBON DIOXIDE LEVEL 26 MEQ/L (21-32); CHLORIDE LEVEL 105 MEQ/L (98-107); CREATININE FOR GFR 0.64 MG/DL (0.55-1.30); GLOMERULAR FILTRATION RATE > 60.0 (>45); GLUCOSE, FASTING 92 MG/DL (70-100); POTASSIUM SERUM 4.5 MEQ/L (3.5-5.1); SODIUM LEVEL 136 MEQ/L (136-145)
[2020-05-11 14:00] VITALS: BP 119/66
[2020-05-11 18:00] VITALS: BP 112/65
[2020-05-11] MEDS ORDERED: FAT EMULSION IV 20% 500 ML IV SCH (18:00)
[2020-05-11] MEDS ORDERED: AMINO AC/ELECTROLYTE/DEX/CALC 2,000 ML IV SCH (18:00)
[2020-05-11] MEDS: zolPIDEM TARTRATE 5 MG TAB PO SCH (20:41)
[2020-05-11] MEDS: LORATADINE 10 MG TAB PO SCH (20:41)
[2020-05-11] MEDS: ROSUVASTATIN 10 MG TAB (CRESTOR) PO SCH (20:41)
[2020-05-11] MEDS: APIXABAN 5 MG TAB (ELIQUIS) PO SCH (20:42)
[2020-05-12] VITALS (8 sets, daily range): BP systolic 101–129; BP diastolic 59–74
[2020-05-12] MEDS: SODIUM CHLORIDE 0.9% INJ 10 ML SYR IV SCH ×2 (05:11→18:27)
[2020-05-12 06:47] LABS: BASO # 0.1 10^3/uL (0.0-0.2); EOS # 0.6 10^3/uL (0.0-0.5); HEMATOCRIT 31.3 % (36.0-47.0); HEMOGLOBIN 9.8 g/dl (12.0-15.5); LYMPH # 1.6 10^3/uL (1.5-5.0); LYMPH % 17.3 % (24.0-44.0); MEAN CORPUSCULAR HEMOGLOBIN 28.8 pg (27.0-33.0); MEAN CORPUSCULAR HGB CONC 31.3 g/dl (32.0-36.5); MEAN CORPUSCULAR VOLUME 92.1 fl (80.0-96.0); MONO % 11.2 % (0.0-5.0); NEUTROPHILS # 5.5 10^3/uL (1.5-8.5); PLATELET COUNT, AUTOMATED 162 10^3/uL (150-450); WHITE BLOOD COUNT 9.2 10^3/uL (4.0-10.0)
[2020-05-12 07:12] LABS: BLOOD UREA NITROGEN 18 MG/DL (7-18); CALCIUM LEVEL 7.9 MG/DL (8.8-10.2); CARBON DIOXIDE LEVEL 27 MEQ/L (21-32); CHLORIDE LEVEL 104 MEQ/L (98-107); CREATININE FOR GFR 0.67 MG/DL (0.55-1.30); GLOMERULAR FILTRATION RATE > 60.0 (>45); GLUCOSE, FASTING 97 MG/DL (70-100); POTASSIUM SERUM 4.2 MEQ/L (3.5-5.1); SODIUM LEVEL 135 MEQ/L (136-145)
[2020-05-12] MEDS: ONDANSETRON 4MG/2ML VIAL IV PRN ×2 (07:52→23:43)
[2020-05-12] MEDS: SODIUM CHLORIDE 0.9% INJ 10 ML SYR IV PRN ×3 (07:53→14:09)
[2020-05-12] MEDS: ACETAMINOPHEN TAB 650MG DOSE (2X325MG) PO SCH ×3 (07:54→21:39)
[2020-05-12] MEDS: FOLIC ACID 1 MG TAB PO SCH (07:54)
[2020-05-12] MEDS: APIXABAN 5 MG TAB (ELIQUIS) PO SCH ×2 (07:54→20:23)
[2020-05-12] MEDS: GABAPENTIN 300 MG CAP PO SCH ×3 (07:54→20:23)
[2020-05-12] MEDS: DULoxetine 30 MG CAP (CYMBALTA) PO SCH ×2 (07:54→20:23)
[2020-05-12] MEDS: PANTOPRAZOLE 40MG TAB (PROTONIX) PO SCH (07:54)
[2020-05-12] MEDS: OLANZapine 2.5MG TABLET PO SCH ×2 (07:54→21:31)
[2020-05-12] MEDS: TOLTERODINE TARTRATE 2 MG LA CAP (DETROL LA) PO SCH (07:55)
[2020-05-12] MEDS: AMIODARONE 200 MG TAB (PACERONE) PO SCH (07:55)
[2020-05-12] MEDS: oxyCODONE 10 MG CR TAB PO SCH ×2 (07:55→20:23)
[2020-05-12] MEDS: MORPHINE 2 MG/ML 1ML VIAL (J2270) IV PRN ×3 (09:17→18:27)
[2020-05-12] MEDS ORDERED: NYSTATIN 100,000 UNITS/GM TOPICAL PWD 15 GM TOP PRN (10:15)
--- NOTE | 2020-05-12 17:20 | IPN ---
DATE: 05/10/2020 SUBJECTIVE: The patient is status post revision of her colostomy and overall has had some significant improvement of her discomfort and pain overnight. She did have a fair drop off of her hematocrit but this may be partially dilutional given that she has had some good urine output over the morning. She continues still on her TPN. From the standpoint of overall she is complaining of pain and discomfort at the site but when we look at her and evaluate her she seems to be rather comfortable in bed when she is moving around slightly; when she is trying to be more active, however she does seem to wince to some degree but otherwise seems to be making some good progress clinically. Her ostomy is pink and functioning. IMPRESSION AND PLAN: The patient is doing well. Her ostomy is pink and appropriately edematous at this point. Her previously ostomy site is closed with marshall and overall appears to be intact without erythema, drainage or discharge and otherwise she looks like she is making some good progress. She is still not very hungry, thus at this point we will have her on clear liquids. I feel that given that she has good ostomy output and she is not distended it is reasonable for her to advance her diet as tolerated without restrictions although I have encouraged her to go slowly with this. Will continue her on TPN. In addition, because she is having a hard time getting up and moving around will keep Dudley in place overnight, however we may remove that in the next 24 to 48 hours. ED
[2020-05-12] MEDS ORDERED: MULTIVITAMIN -ADULT INJECTION 10 ML, CR/CU/SE/MN/ZN INJ 1 ML in AMINO AC/ELECTROLYTE/DE... IV SCH (18:00)
[2020-05-12] MEDS ORDERED: FAT EMULSION IV 20% 500 ML IV SCH (18:00)
--- NOTE | 2020-05-12 19:26 | IPNPDOC ---
Subjective Date Seen The patient was seen on 05/12/20. Subjective Chief Complaint/HPI Patient is a 65 year old female with fibromyalgia, chronic pain syndrome, and recent subtotal colectomy on 03/28/20 for bowel ischemia here for SBO, s/p surgery. Today is POD#3. Today, she still has significant pain, but feels that it is slightly better. On a soft diet and she is trying to eat. Still requiring TPN. Otherwise denies fever/chills, chest pain, dyspnea. Constitutional: Denies: Chills, Fever ENT: Denies: Head Aches Pulmonary: Denies: Dyspnea Cardiovascular: Denies: Chest Pain Gastrointestinal: Reports: Abdominal Pain Genitourinary: Denies: Dysuria Objective Physical Examination General Exam: Positive: Alert, Cooperative, Mild Distress (From pain) Eye Exam: Positive: EOMI; Negative: Sclera icteric Neck Exam: Positive: Supple Chest Exam: Positive: Clear to auscultation, Normal air movement Heart Exam: Positive: Rate Normal, Regular Rhythm Abdomen Exam: Positive: BS Hypoactive, Tenderness Extremity Exam: Negative: Edema Neuro Exam: Positive: Normal Speech Psych Exam: Positive: Mental status NL, Mood NL Assessment /Plan Assessment Patient is a 65 year old female with fibromyalgia and chronic pain syndrome here for SBO. On 03/28/2020 she had subtotal colectomy for bowel ischemia and transferred to ARU for IV antibiotics. on 04/13/2020, she was transferred to inpatient unit for sepsis with seroma. She underwent drainage of subhepatic collection and wound vac was placed. She completed a course of flagyl and levaquin. Then she had fecal vomitus with worsening abdominal pain. She was found to have high grade SBO with multiple transition points. General surgery took her down for surgery on 05/09/2020. Today is POD#3. Otherwise, she will need rehab. Plan/VTE VTE Prophylaxis Ordered?: Yes Plan 1. SBO. CT demonstrated multiple transition points. General surgery is following, recommendations appreciated. Went to surgery on 05/09/2020. Today is POD #3. Patient is currently on a soft diet. 2. Subhepatic seroma/hematoma. S/p drainage. Completed course of antibiotics. 3. Atrial fibrillation. On amiodarone and apixaban. Atenolol held due to low blood pressure. 4. HTN. Atenolol was held due to hypotension. Continue to monitor 5. Generalized weakness: Deconditioning. Will need rehab 6. Dyslipidemia: Crestor 7. Chronic pain syndrome: Olanzapine, Duloxetine, Gabapentin 8. Hyponatremia: Resolved with lower rate of TPN. Continue to monitor sodium while on TPN 9. DVT ppx: SCD and TEDS. On apixaban Dispo: Will need rehab VS, I&O, 24H, Fishbone Vital Signs/I&O Vital Signs Date Time Temp Pulse Resp B/P (MAP) Pulse Ox O2 Delivery O2 Flow Rate FiO2 05/12/20 18:40 17 05/12/20 17:30 97.7 106 101/59 (73) 94 Room Air 05/12/20 02:00 0.5 I&O- Last 24 Hours up to 6 AM 05/12/20 06:00 Intake Total 370 ml Output Total 3350 ml Balance -2980 ml Laboratory Data 24H LABS Laboratory Tests 2 05/12/20 06:32: Immature Granulocyte % (Auto) 4.5H, Neutrophils (%) (Auto) 60.0, Lymphocytes (%) (Auto) 17.3L, Monocytes (%) (Auto) 11.2H, Eosinophils (%) (Auto) 6.0H, Basophils (%) (Auto) 1.0, Neutrophils # (Auto) 5.5, Lymphocytes # (Auto) 1.6, Monocytes # (Auto) 1.0H, Eosinophils # (Auto) 0.6H, Basophils # (Auto) 0.1, Nucleated Red Blood Cells % (auto) 0.0, Anion Gap 4L, Glomerular Filtration Rate > 60.0, Calcium Level 7.9L CBC/BMP Laboratory Tests 05/12/20 06:32 LUIS AMIN DO May 12, 2020 19:26
[2020-05-12] MEDS: ROSUVASTATIN 10 MG TAB (CRESTOR) PO SCH (20:22)
[2020-05-12] MEDS: LORATADINE 10 MG TAB PO SCH (20:23)
[2020-05-12] MEDS: zolPIDEM TARTRATE 5 MG TAB PO SCH (21:31)
[2020-05-13] MEDS: KETOROLAC 30 MG/ML 1ML VIAL IV PRN (00:53)
[2020-05-13] MEDS: SODIUM CHLORIDE 0.9% INJ 10 ML SYR IV SCH ×2 (05:31→18:54)
[2020-05-13] MEDS: ONDANSETRON 4MG/2ML VIAL IV PRN ×4 (05:51→18:54)
[2020-05-13 06:00] VITALS: BP 137/78
[2020-05-13 06:16] LABS: BASO # 0.1 10^3/uL (0.0-0.2); BASO % 0.5 % (0.0-1.0); EOS # 0.5 10^3/uL (0.0-0.5); EOS % 3.8 % (0.0-3.0); HEMATOCRIT 35.4 % (36.0-47.0); LYMPH % 8.5 % (24.0-44.0); MEAN CORPUSCULAR HEMOGLOBIN 28.4 pg (27.0-33.0); MEAN CORPUSCULAR HGB CONC 31.1 g/dl (32.0-36.5); MEAN CORPUSCULAR VOLUME 91.5 fl (80.0-96.0); MONO # 0.9 10^3/uL (0.0-0.8); MONO % 7.2 % (0.0-5.0); NEUTROPHILS # 8.9 10^3/uL (1.5-8.5); NEUTROPHILS % 75.8 % (36.0-66.0); PLATELET COUNT, AUTOMATED 190 10^3/uL (150-450); RED BLOOD COUNT 3.87 10^6/uL (4.00-5.40); WHITE BLOOD COUNT 11.8 10^3/uL (4.0-10.0)
[2020-05-13 06:46] LABS: BLOOD UREA NITROGEN 21 MG/DL (7-18); CARBON DIOXIDE LEVEL 27 MEQ/L (21-32); CHLORIDE LEVEL 101 MEQ/L (98-107); CREATININE FOR GFR 0.78 MG/DL (0.55-1.30); GLOMERULAR FILTRATION RATE > 60.0 (>45); GLUCOSE, FASTING 127 MG/DL (70-100); POTASSIUM SERUM 4.5 MEQ/L (3.5-5.1); SODIUM LEVEL 134 MEQ/L (136-145)
[2020-05-13] MEDS: ACETAMINOPHEN TAB 650MG DOSE (2X325MG) PO SCH ×3 (07:43→21:00)
[2020-05-13] MEDS: GABAPENTIN 300 MG CAP PO SCH ×3 (07:44→21:00)
[2020-05-13] MEDS: DULoxetine 30 MG CAP (CYMBALTA) PO SCH ×2 (07:44→21:00)
[2020-05-13] MEDS: APIXABAN 5 MG TAB (ELIQUIS) PO SCH (07:44)
[2020-05-13] MEDS: AMIODARONE 200 MG TAB (PACERONE) PO SCH (07:44)
[2020-05-13] MEDS: OLANZapine 2.5MG TABLET PO SCH ×2 (07:44→21:00)
[2020-05-13] MEDS: PANTOPRAZOLE 40MG TAB (PROTONIX) PO SCH (07:44)
[2020-05-13] MEDS: TOLTERODINE TARTRATE 2 MG LA CAP (DETROL LA) PO SCH (07:44)
[2020-05-13] MEDS: FOLIC ACID 1 MG TAB PO SCH (07:44)
[2020-05-13] MEDS: oxyCODONE 10 MG CR TAB PO SCH (07:53)
[2020-05-13] MEDS: SODIUM CHLORIDE 0.9% INJ 10 ML SYR IV PRN ×2 (10:37→14:42)
[2020-05-13 12:30] VITALS: BP 155/96
[2020-05-13 14:00] VITALS: BP 120/60
[2020-05-13 15:00] VITALS: BP 182/86
--- NOTE | 2020-05-13 15:52 | IPNPDOC ---
Text Note Date of Service The patient was seen on 05/13/20. NOTE S: Patient seen and examined at bedside. No acute overnight events reported. No new medical complaints this morning, still c/o abdominal pain. Later in afternoon had episodes of bilious vomiting with some hematemesis. O: General: NAD, lying comfortably in bed, chronically ill appearing HEENT: NC/AT Lungs: CTA B/L Heart: harsh systolic murmur Abd: soft, mid-epigastric tenderness, hypoactive BS Ext: no edema A/P: Patient is a 65 year old female with fibromyalgia and chronic pain syndrome here for SBO. On 03/28/2020 she had subtotal colectomy for bowel ischemia and transferred to ARU for IV antibiotics. on 04/13/2020, she was transferred to inpatient unit for sepsis with seroma. She underwent drainage of subhepatic collection and wound vac was placed. She completed a course of flagyl and levaquin. Then she had fecal vomitus with worsening abdominal pain. She was found to have high grade SBO with multiple transition points. General surgery took her down for surgery on 05/09/2020. Today is POD#4. #SBO - follow as per surgery - still with abdominal pain, bilious vomiting today, increasing leukocytosis - POD #4 #lethargy/abdominal pain - concern for adverse effects from narcotics - will consider lowering dosage - patient was agreeable #Subhepatic seroma/hematoma. S/p drainage. Completed course of antibiotics. #Atrial fibrillation. On amiodarone and apixaban. Atenolol held due to low blood pressure. #HTN. Atenolol was held due to hypotension. Continue to monitor #Generalized weakness: Deconditioning. Will need rehab #Dyslipidemia: Crestor #Chronic pain syndrome: Olanzapine, Duloxetine, Gabapentin #Hyponatremia: Resolved with lower rate of TPN. Continue to monitor electrolytes while on TPN #cleary catheter - to d/w surgery and PT regarding discontinuing #DVT ppx: SCD and TEDS. On apixaban Dispo: pending clinical improvement; will need rehab VS,Fishbone, I+O VS, Fishbone, I+O Laboratory Tests 05/13/20 05:57 Vital Signs Date Time Temp Pulse Resp B/P (MAP) Pulse Ox O2 Delivery O2 Flow Rate FiO2 05/13/20 15:00 113 182/86 (118) 05/13/20 12:30 97.6 14 Room Air 05/13/20 06:00 94 05/12/20 02:00 0.5 I&O- Last 24 Hours up to 6 AM 05/13/20 05:59 Intake Total 4100 ml Output Total 3680 ml Balance 420 ml JORY HENDERSON MD May 13, 2020 15:52
[2020-05-13] MEDS: MORPHINE 2 MG/ML 1ML VIAL (J2270) IV PRN ×2 (16:15→21:44)
[2020-05-13] MEDS ORDERED: FAT EMULSION IV 20% 500 ML IV SCH (18:00)
[2020-05-13] MEDS ORDERED: AMINO AC/ELECTROLYTE/DEX/CALC 2,000 ML IV SCH (18:00)
[2020-05-13] MEDS: SUCRALFATE SUSP 1GM/10ML UD PO SCH ×2 (18:29→21:00)
[2020-05-13] MEDS: ROSUVASTATIN 10 MG TAB (CRESTOR) PO SCH (21:00)
[2020-05-13] MEDS: zolPIDEM TARTRATE 5 MG TAB PO SCH (21:00)
[2020-05-13] MEDS: LORATADINE 10 MG TAB PO SCH (21:00)
[2020-05-13] MEDS: PANTOPRAZOLE 40MG VIAL (C9113 PER 1) IV SCH (21:43)
[2020-05-13 22:00] VITALS: BP 154/90
[2020-05-13] MEDS: METOCLOPRAMIDE INJ 10MG/2ML VIAL (J2765 PER 1) IV PRN (22:20)
[2020-05-14] MEDS: MORPHINE 2 MG/ML 1ML VIAL (J2270) IV PRN ×3 (01:27→08:28)
[2020-05-14] MEDS: ONDANSETRON 4MG/2ML VIAL IV PRN ×3 (01:27→14:50)
[2020-05-14 06:00] VITALS: BP 154/90
[2020-05-14] MEDS: METOCLOPRAMIDE INJ 10MG/2ML VIAL (J2765 PER 1) IV PRN ×2 (06:08→18:24)
[2020-05-14] MEDS: SODIUM CHLORIDE 0.9% INJ 10 ML SYR IV SCH ×2 (06:09→17:15)
[2020-05-14 07:01] LABS: BASO # 0.1 10^3/uL (0.0-0.2); BASO % 0.8 % (0.0-1.0); EOS # 0.3 10^3/uL (0.0-0.5); EOS % 2.1 % (0.0-3.0); HEMATOCRIT 33.8 % (36.0-47.0); HEMOGLOBIN 10.7 g/dl (12.0-15.5); LYMPH # 1.5 10^3/uL (1.5-5.0); LYMPH % 10.5 % (24.0-44.0); MEAN CORPUSCULAR HEMOGLOBIN 28.8 pg (27.0-33.0); MEAN CORPUSCULAR HGB CONC 31.7 g/dl (32.0-36.5); MEAN CORPUSCULAR VOLUME 90.9 fl (80.0-96.0); MONO # 1.3 10^3/uL (0.0-0.8); MONO % 9.1 % (0.0-5.0); NEUTROPHILS # 10.8 10^3/uL (1.5-8.5); NEUTROPHILS % 74.6 % (36.0-66.0); PLATELET COUNT, AUTOMATED 231 10^3/uL (150-450); RED BLOOD COUNT 3.72 10^6/uL (4.00-5.40); WHITE BLOOD COUNT 14.5 10^3/uL (4.0-10.0)
[2020-05-14 07:06] LABS: BLOOD UREA NITROGEN 23 MG/DL (7-18); CALCIUM LEVEL 8.5 MG/DL (8.8-10.2); CARBON DIOXIDE LEVEL 30 MEQ/L (21-32); CHLORIDE LEVEL 101 MEQ/L (98-107); CREATININE FOR GFR 0.69 MG/DL (0.55-1.30); GLOMERULAR FILTRATION RATE > 60.0 (>45); GLUCOSE, FASTING 114 MG/DL (70-100); POTASSIUM SERUM 3.7 MEQ/L (3.5-5.1); SODIUM LEVEL 136 MEQ/L (136-145)
[2020-05-14] MEDS: SUCRALFATE SUSP 1GM/10ML UD PO SCH ×4 (08:27→21:48)
[2020-05-14] MEDS: SODIUM CHLORIDE 0.9% INJ 10 ML SYR IV PRN ×5 (08:29→21:52)
[2020-05-14 10:03] VITALS: BP 142/78
--- NOTE | 2020-05-14 10:51 | IPNPDOC ---
Text Note Date of Service The patient was seen on 05/14/20. NOTE S: Patient seen and examined at bedside. Still complains of abdominal pain. NG tube placed yesterday. O: General: NAD, lying comfortably in bed, chronically ill appearing HEENT: NC/AT, NG tube in place Lungs: CTA B/L Heart: systolic murmur Abd: soft, mid-epigastric tenderness, hypoactive BS Ext: no edema A/P: Patient is a 65 year old female with fibromyalgia and chronic pain syndrome here for SBO. On 03/28/2020 she had subtotal colectomy for bowel ischemia and transferred to ARU for IV antibiotics. on 04/13/2020, she was transferred to inpatient unit for sepsis with seroma. She underwent drainage of subhepatic collection and wound vac was placed. She completed a course of flagyl and levaquin. Then she had fecal vomitus with worsening abdominal pain. She was found to have high grade SBO with multiple transition points. General surgery took her down for surgery again on 05/09/2020 for lysis of adhesions/revision of ileostomy. Today is POD#5. #SBO - follow as per surgery - still with abdominal pain, NG tube place, repeat imaging pending - POD #5 #lethargy/abdominal pain - concern for adverse effects from narcotics - will consider lowering dosage - patient was agreeable #Subhepatic seroma/hematoma. S/p drainage. Completed course of antibiotics. #Atrial fibrillation. On amiodarone and apixaban. Atenolol held due to low blood pressure. #HTN. Atenolol was held due to hypotension. Continue to monitor #Generalized weakness: Deconditioning. Will need rehab #Dyslipidemia: Crestor #Chronic pain syndrome: Olanzapine, Duloxetine, Gabapentin #Hyponatremia: Resolved with lower rate of TPN. Continue to monitor electrolytes while on TPN #cleary catheter - to d/w surgery and PT regarding discontinuing #DVT ppx: SCD and TEDS. On apixaban Dispo: pending surgical follow up, clinical improvement; discussed at length with karla garland [phone] VS,Fishbone, I+O VS, Fishbone, I+O Laboratory Tests 05/14/20 06:07 Vital Signs Date Time Temp Pulse Resp B/P (MAP) Pulse Ox O2 Delivery O2 Flow Rate FiO2 05/14/20 10:03 96.9 93 18 142/78 (99) 97 Room Air 05/12/20 02:00 0.5 I&O- Last 24 Hours up to 6 AM 05/14/20 06:00 Intake Total 2820 ml Output Total 3625 ml Balance -805 ml KARLA HENDERSON MD May 14, 2020 10:51
[2020-05-14] MEDS: TOLTERODINE TARTRATE 2 MG LA CAP (DETROL LA) PO SCH (11:48)
[2020-05-14] MEDS: GABAPENTIN 300 MG CAP PO SCH ×3 (11:49→21:51)
[2020-05-14] MEDS: ACETAMINOPHEN TAB 650MG DOSE (2X325MG) PO SCH ×3 (11:50→21:51)
[2020-05-14] MEDS: FOLIC ACID 1 MG TAB PO SCH (11:50)
[2020-05-14] MEDS: DULoxetine 30 MG CAP (CYMBALTA) PO SCH ×2 (11:50→21:51)
[2020-05-14] MEDS: PANTOPRAZOLE 40MG VIAL (C9113 PER 1) IV SCH ×2 (11:51→21:48)
[2020-05-14] MEDS: AMIODARONE 200 MG TAB (PACERONE) PO SCH (11:52)
[2020-05-14] MEDS: OLANZapine 2.5MG TABLET PO SCH ×2 (11:57→21:51)
[2020-05-14] MEDS: oxyCODONE 5MG TAB PO PRN ×3 (11:59→21:50)
[2020-05-14 12:00] VITALS: BP 144/77
[2020-05-14 13:51] VITALS: BP 144/77
[2020-05-14 18:00] VITALS: BP 160/82
[2020-05-14] MEDS ORDERED: MULTIVITAMIN -ADULT INJECTION 10 ML, CR/CU/SE/MN/ZN INJ 1 ML in AMINO AC/ELECTROLYTE/DE... IV SCH (18:00)
[2020-05-14] MEDS ORDERED: FAT EMULSION IV 20% 500 ML IV SCH (18:00)
[2020-05-14] MEDS: zolPIDEM TARTRATE 5 MG TAB PO SCH (21:48)
[2020-05-14] MEDS: ROSUVASTATIN 10 MG TAB (CRESTOR) PO SCH (21:48)
[2020-05-14] MEDS: LORATADINE 10 MG TAB PO SCH (21:51)
[2020-05-14 22:00] VITALS: BP 156/80
[2020-05-15 02:00] VITALS: BP 161/89
[2020-05-15] MEDS: SODIUM CHLORIDE 0.9% INJ 10 ML SYR IV SCH ×2 (05:52→09:33)
[2020-05-15] MEDS: oxyCODONE 5MG TAB PO PRN ×4 (05:52→21:46)
[2020-05-15 06:00] VITALS: BP 131/71
[2020-05-15 06:17] LABS: BASO # 0.2 10^3/uL (0.0-0.2); BASO % 1.1 % (0.0-1.0); EOS # 0.6 10^3/uL (0.0-0.5); EOS % 3.7 % (0.0-3.0); HEMATOCRIT 30.2 % (36.0-47.0); HEMOGLOBIN 9.6 g/dl (12.0-15.5); LYMPH # 1.8 10^3/uL (1.5-5.0); MEAN CORPUSCULAR HEMOGLOBIN 28.9 pg (27.0-33.0); MEAN CORPUSCULAR HGB CONC 31.8 g/dl (32.0-36.5); MONO # 1.7 10^3/uL (0.0-0.8); MONO % 10.9 % (0.0-5.0); NEUTROPHILS # 10.2 10^3/uL (1.5-8.5); NEUTROPHILS % 66.2 % (36.0-66.0); PLATELET COUNT, AUTOMATED 250 10^3/uL (150-450); RED BLOOD COUNT 3.32 10^6/uL (4.00-5.40); WHITE BLOOD COUNT 15.4 10^3/uL (4.0-10.0)
[2020-05-15 06:34] LABS: BLOOD UREA NITROGEN 26 MG/DL (7-18); CALCIUM LEVEL 8.1 MG/DL (8.8-10.2); CARBON DIOXIDE LEVEL 28 MEQ/L (21-32); CHLORIDE LEVEL 101 MEQ/L (98-107); CREATININE FOR GFR 0.73 MG/DL (0.55-1.30); GLOMERULAR FILTRATION RATE > 60.0 (>45); GLUCOSE, FASTING 105 MG/DL (70-100); POTASSIUM SERUM 4.2 MEQ/L (3.5-5.1); SODIUM LEVEL 137 MEQ/L (136-145)
[2020-05-15] MEDS ORDERED: SUMAtriptan SUCCINATE 25 MG TAB PO ONE (07:00)
[2020-05-15] MEDS: GASTROGRAFIN SOLUTION 30ML PO SCH ×2 (07:48→07:49)
[2020-05-15] MEDS: ONDANSETRON 4MG/2ML VIAL IV PRN (08:27)
[2020-05-15] MEDS: SODIUM CHLORIDE 0.9% INJ 10 ML SYR IV PRN ×2 (08:30→15:38)
[2020-05-15] MEDS ORDERED: ISOVUE-370 76% 100ML VIAL As Ordered ONE (08:50)
--- NOTE | 2020-05-15 09:36 | REPVR ---
PROCEDURE INFORMATION: Exam: CT Abdomen And Pelvis With Contrast Exam date and time: 05/15/2020 9:09 AM Age: 65 years old Clinical indication: Abdominal pain; Additional info: Elevated wbc, ileus TECHNIQUE: Imaging protocol: Computed tomography of the abdomen and pelvis with intravenous contrast. Radiation optimization: All CT scans at this facility use at least one of these dose optimization techniques: automated exposure control; mA and/or kV adjustment per patient size (includes targeted exams where dose is matched to clinical indication); or iterative reconstruction. Contrast material: ISOVUE 370; Contrast volume: 100 ml; Contrast route: INTRAVENOUS (IV); COMPARISON: CT ABD PELVIS WITH CONTRAST 05/03/2020 12:24 PM FINDINGS: Tubes, catheters and devices: Termination of feeding tube in the gastric fundus. Lungs: Interstitial prominence and asymmetric airspace disease, disproportionately localized in the right lower lobe. Asymmetric elevation of the right hemidiaphragm. Liver: Fatty infiltration of the liver. Gallbladder and bile ducts: Status post cholecystectomy. Pancreas: No pancreatic mass or ductal dilatation. Spleen: No splenomegaly. Adrenals: Unremarkable adrenals. Kidneys and ureters: Normal renal morphology. No hydronephrosis. Stomach and bowel: Antro duodenal wall thickening (series 201: Image 49). Small bowel dilatation, of lesser severity when compared to the previous study, in a pattern of partial small bowel obstruction. Appendix: Status post appendectomy. Intraperitoneal space: Poorly defined complex fluid collection in the right subhepatic region, lateral to the ostomy site, with approximate measurements of 4.1 x 2.9 by 2.9 cm. This previously measured 5.4 by 3.1 by 5.0 cm. Small quantity of intraperitoneal fluid. Vasculature: Stable 3.1 cm infrarenal abdominal aortic aneurysm with prominent atherosclerotic plaque and vascular calcification. Duodenal dilatation with abrupt transition in caliber in the midline at the level of the superior mesenteric artery (series 201: Image 62). Lymph nodes: Subcentimeter lymph nodes. Bladder: Bladder dilatation and intraluminal air. Reproductive: Status post hysterectomy. Bones/joints: Osteopenia and degenerative change. Soft tissues: Right-sided ostomy and parastomal hernia. Infiltration of subcutaneous fat, edema, and high attenuation fluid in the right abdominal wall and pelvis. IMPRESSION: 1. Antroduodenal wall thickening (series 201: Image 49). 2. Duodenal dilatation with abrupt transition in caliber in the midline at the level of the superior mesenteric artery (series 201: Image 62). 3. Small bowel dilatation, of lesser severity when compared to the previous study, in a pattern of partial small bowel obstruction. 4. Right-sided ostomy and parastomal hernia. 5. Poorly defined complex fluid collection in the right subhepatic region, lateral to the ostomy site, with approximate measurements of 4.1 x 2.9 by 2.9 cm. This previously measured 5.4 by 3.1 by 5.0 cm. 6. Bladder dilatation and intraluminal air. 7. Additional findings as described above. Electronically signed by: Mandeep Cueva On 05/15/2020 09:35:59 AM
[2020-05-15] MEDS: PANTOPRAZOLE 40MG VIAL (C9113 PER 1) IV SCH ×2 (09:41→21:43)
[2020-05-15] MEDS: ACETAMINOPHEN TAB 650MG DOSE (2X325MG) PO SCH ×3 (09:42→21:46)
[2020-05-15] MEDS: TOLTERODINE TARTRATE 2 MG LA CAP (DETROL LA) PO SCH (09:42)
[2020-05-15] MEDS: DULoxetine 30 MG CAP (CYMBALTA) PO SCH ×2 (09:42→21:44)
[2020-05-15] MEDS: GABAPENTIN 300 MG CAP PO SCH ×3 (09:42→21:44)
[2020-05-15] MEDS: OLANZapine 2.5MG TABLET PO SCH ×2 (09:42→21:45)
[2020-05-15] MEDS: FOLIC ACID 1 MG TAB PO SCH (09:43)
[2020-05-15] MEDS: AMIODARONE 200 MG TAB (PACERONE) PO SCH (09:45)
[2020-05-15] MEDS: SUCRALFATE SUSP 1GM/10ML UD PO SCH ×4 (09:46→21:43)
--- NOTE | 2020-05-15 10:08 | IPN ---
DATE: 05/12/2020 SUBJECTIVE: Over the last couple of days, patient has had some great urine output. The ostomy has been working really well, although she has a very poor intake. A couple days ago, she started with some hyponatremia. We held her TPN for a short bit and then started at a lower rate and then her sodium came up significantly overnight. Today, it has been stable since yesterday and her white count is down at 9.2. She has been afebrile. Otherwise, she states that she is just feeling mostly weak and she has been terribly sore. Her incision/colostomy site hurts more this time than it did the previous operation and that has been a persistent pain that has been problematic for her. Her abdomen is tender throughout mild palpation, but with distraction she does not have significant peritoneal signs, it is mostly on the right hand side where the ostomy is that it is uncomfortable with palpation. She had a very difficult physical examination given that touching her on her hip actually causes pain, discomfort, etc. IMPRESSION/PLAN: Patient still has poor p.o. intake. I would recommend that we continue on the TPN for now and we have her on a regular diet, although I have encouraged to just go slowly with her diet at this point. She is making slow progress and I anticipate that we may have to continue with supportive I.V. nutrition for a while. Last albumin was on 05/10/2020 and it was 1.7. Otherwise we have encouraged her to increase her activity and I would like to get the [place] out, but she seems so frail at this time, I would like to avoid removing this if we are going to have a problem with I's and Os. ED
--- NOTE | 2020-05-15 10:09 | IPN ---
DATE: 05/13/2020 SUBJECTIVE: Patient still has had some stool overnight, but she has had a fair bit of vomiting in the middle of the night and this morning; it has mostly been bilious vomiting. I saw her earlier this morning and she was nauseated, got some Zofran and was feeling a little bit better. I told her to take it easy with food given that her ostomy was still putting out a fair bit of fluid at this time. She still has good urine output and has been rather sleepy today. She stated because she did not sleep well last night. She is rather tired. Overall that was earlier this morning and when I saw her again later on this afternoon after she had another episode of emesis, we obtained a KUB, which showed a dilated stomach. I went to see her and we had an NG tube placed. She was much more awake and alert, but unfortunately has not had much for pain medication today and she has been normally on some OxyContin and was complaining of ongoing discomfort. Overall, her abdomen is unchanged from a physical exam, it is a little bit more distended than it was previously. She does have some blood within the ostomy output, it is not clots and the last episode of emesis was bilious with a slight tinge of blood. IMPRESSION/PLAN: Patient has evidence of a probable ileus at this time. Will keep her n.p.o., place an NG tube, I.V. fluids. She may need additional saline if she continues with high NG output. Otherwise, her Eliquis has been on and that was started just a couple days ago and I feel that this is probably contributing to her blood, and we have asked to hold this for right now. We will see how the NG tube makes a difference with her abdominal tenderness and pain, and determine our next steps based on that. [facility]ERN[facility] HOSPITALJatin
--- NOTE | 2020-05-15 11:43 | IPNPDOC ---
Text Note Date of Service The patient was seen on 05/15/20. NOTE S: Patient seen and examined at bedside. Still complains of abdominal pain. NG tube placed yesterday. O: General: NAD, lying comfortably in bed, chronically ill appearing HEENT: NC/AT, NG tube in place Lungs: CTA B/L Heart: systolic murmur Abd: soft, mid-epigastric tenderness, hypoactive BS Ext: no edema A/P: Patient is a 65 year old female with fibromyalgia and chronic pain syndrome here for SBO. On 03/28/2020 she had subtotal colectomy for bowel ischemia and transferred to ARU for IV antibiotics. on 04/13/2020, she was transferred to inpatient unit for sepsis with seroma. She underwent drainage of subhepatic collection and wound vac was placed. She completed a course of flagyl and levaquin. Then she had fecal vomitus with worsening abdominal pain. She was found to have high grade SBO with multiple transition points. General surgery took her down for surgery again on #SBO - s/p lysis of adhesions/revision of ileostomy 05/09/20 - follow as per surgery - still with abdominal pain, NG tube place, repeat imaging pending #lethargy/abdominal pain - concern for adverse effects from narcotics - will consider lowering dosage - patient was agreeable #Subhepatic seroma/hematoma. S/p drainage. Completed course of antibiotics. #Atrial fibrillation. On amiodarone and apixaban. Atenolol held due to low blood pressure. #HTN. Atenolol was held due to hypotension. Continue to monitor #Generalized weakness: Deconditioning. Will need rehab #Dyslipidemia: Crestor #Chronic pain syndrome: Olanzapine, Duloxetine, Gabapentin #Hyponatremia: Resolved with lower rate of TPN. Continue to monitor electrolytes while on TPN #cleary catheter - to d/w surgery and PT regarding discontinuing #DVT ppx: SCD and TEDS. On apixaban Dispo: pending surgical follow up, clinical improvement; discussed at length with karla garland [phone] VS,[place], I+O VSFranklin, I+O Laboratory Tests 05/15/20 05:53 Vital Signs Date Time Temp Pulse Resp B/P (MAP) Pulse Ox O2 Delivery O2 Flow Rate FiO2 9/17/20 09:50 16 Room Air 05/15/20 06:00 99.1 103 131/71 (91) 95 05/12/20 02:00 0.5 I&O- Last 24 Hours up to 6 AM 05/15/20 06:00 Intake Total 1330 ml Output Total 2090 ml Balance -760 ml KARLA HENDERSON MD May 15, 2020 11:41
[2020-05-15] MEDS: CIPROFLOXACIN 400 MG in IV 1 EA IV SCH ×2 (13:19→23:14)
[2020-05-15 14:00] VITALS: BP 132/72
[2020-05-15] MEDS: metroNIDAZOLE 500 MG in IV 1 EA IV SCH ×2 (14:25→21:49)
[2020-05-15] MEDS ORDERED: FAT EMULSION IV 20% 500 ML IV SCH (18:00)
[2020-05-15] MEDS ORDERED: AMINO AC/ELECTROLYTE/DEX/CALC 2,000 ML IV SCH (18:00)
[2020-05-15] MEDS: ROSUVASTATIN 10 MG TAB (CRESTOR) PO SCH (21:44)
[2020-05-15] MEDS: zolPIDEM TARTRATE 5 MG TAB PO SCH (21:44)
[2020-05-15] MEDS: LORATADINE 10 MG TAB PO SCH (21:45)
[2020-05-15 22:00] VITALS: BP 121/65
[2020-05-16] MEDS: SODIUM CHLORIDE 0.9% INJ 10 ML SYR IV PRN ×4 (00:56→15:38)
[2020-05-16] MEDS: metroNIDAZOLE 500 MG in IV 1 EA IV SCH ×3 (05:22→20:39)
[2020-05-16 06:00] VITALS: BP 123/66
[2020-05-16] MEDS: oxyCODONE 5MG TAB PO PRN ×2 (06:24→14:00)
[2020-05-16] MEDS: SODIUM CHLORIDE 0.9% INJ 10 ML SYR IV SCH ×2 (06:31→18:06)
[2020-05-16] MEDS: PANTOPRAZOLE 40MG VIAL (C9113 PER 1) IV SCH ×2 (08:54→20:37)
[2020-05-16] MEDS: SUCRALFATE SUSP 1GM/10ML UD PO SCH ×4 (08:54→20:36)
[2020-05-16] MEDS: AMIODARONE 200 MG TAB (PACERONE) PO SCH (08:55)
[2020-05-16] MEDS: TOLTERODINE TARTRATE 2 MG LA CAP (DETROL LA) PO SCH (08:55)
[2020-05-16] MEDS: GABAPENTIN 300 MG CAP PO SCH ×3 (08:55→20:37)
[2020-05-16] MEDS: FOLIC ACID 1 MG TAB PO SCH (08:55)
[2020-05-16] MEDS: DULoxetine 30 MG CAP (CYMBALTA) PO SCH ×2 (08:55→20:37)
[2020-05-16] MEDS: OLANZapine 2.5MG TABLET PO SCH ×2 (08:55→20:46)
[2020-05-16] MEDS: ACETAMINOPHEN TAB 650MG DOSE (2X325MG) PO SCH ×3 (08:56→20:37)
[2020-05-16] MEDS: ONDANSETRON 4MG/2ML VIAL IV PRN ×3 (09:47→20:45)
[2020-05-16] MEDS: MORPHINE 2 MG/ML 1ML VIAL (J2270) IV PRN ×3 (09:48→20:46)
[2020-05-16] MEDS: CIPROFLOXACIN 400 MG in IV 1 EA IV SCH ×2 (11:15→23:31)
[2020-05-16 14:00] VITALS: BP 175/66
[2020-05-16] MEDS ORDERED: MULTIVITAMIN -ADULT INJECTION 10 ML, CR/CU/SE/MN/ZN INJ 1 ML in AMINO AC/ELECTROLYTE/DE... IV SCH (18:00)
[2020-05-16] MEDS ORDERED: FAT EMULSION IV 20% 500 ML IV SCH (18:00)
--- NOTE | 2020-05-16 19:36 | IPNPDOC ---
Subjective Date Seen The patient was seen on 05/16/20. Subjective Chief Complaint/HPI Patient is a 65 year old female with fibromyalgia, chronic pain syndrome, and recent subtotal colectomy on 03/28/20 for bowel ischemia here for SBO, s/p surgery. Today is POD#7. This morning, she had the NG tube place draining green bile. Today, she is still having abdominal pain. She reports some output from the ostomy bag, but appears to be small volume. Otherwise denies fevers, chest pain, dyspnea, or dysuria Constitutional: Denies: Fever Pulmonary: Denies: Dyspnea Cardiovascular: Denies: Chest Pain Gastrointestinal: Reports: Abdominal Pain Genitourinary: Denies: Dysuria Objective Physical Examination General Exam: Positive: Alert, Cooperative, Mild Distress (From pain) Eye Exam: Positive: EOMI; Negative: Sclera icteric Neck Exam: Positive: Supple Chest Exam: Positive: Clear to auscultation, Normal air movement Heart Exam: Positive: Rate Normal, Regular Rhythm Abdomen Exam: Positive: BS Hypoactive, Tenderness Extremity Exam: Negative: Edema Neuro Exam: Positive: Normal Speech Psych Exam: Positive: Mental status NL, Mood NL Assessment /Plan Assessment Patient is a 65 year old female with fibromyalgia and chronic pain syndrome here for SBO. On 03/28/2020 she had subtotal colectomy for bowel ischemia and transferred to ARU for IV antibiotics. on 04/13/2020, she was transferred to inpatient unit for sepsis with seroma. She underwent drainage of subhepatic collection and wound vac was placed. She completed a course of flagyl and levaquin. Then she had fecal vomitus with worsening abdominal pain. She was found to have high grade SBO with multiple transition points. General surgery took her down for surgery on 05/09/2020. Today is POD#7. Still having abdominal pain. There may be a component of ileus. Surgery following recommendations appreciated. Otherwise, she will need rehab. Plan/VTE VTE Prophylaxis Ordered?: Yes Plan 1. SBO. CT demonstrated multiple transition points. General surgery is following, recommendations appreciated. Went to surgery on 05/09/2020. Today is POD #7. Pain is persistent. NGT draining green bile 2. Ileus. Question if there is a component of ileus involved. NGT placed. Patient on TPN. Patient on PRN metoclopramide for nausea/vomiting 3. Subhepatic seroma/hematoma. S/p drainage. Completed course of antibiotics. 4. Atrial fibrillation. On amiodarone. Atenolol held due to low blood pressure. Apixaban on hold due to blood tinged output from NGT. 4. HTN. Atenolol was held due to hypotension. Blood pressure better off atenolol. Continue to monitor 5. Generalized weakness: Deconditioning. Will need rehab 6. Dyslipidemia: Crestor 7. Chronic pain syndrome: Olanzapine, Duloxetine, Gabapentin 8. Hyponatremia: Resolved with lower rate of TPN. Continue to monitor sodium wh ile on TPN 9. DVT ppx: SCD and TEDS. Dispo: Will need rehab VS, I&O, 24H, Fishbone Vital Signs/I&O Vital Signs Date Time Temp Pulse Resp B/P (MAP) Pulse Ox O2 Delivery O2 Flow Rate FiO2 05/16/20 16:00 16 Room Air 05/16/20 15:39 96 05/16/20 06:00 98.1 100 123/66 (85) 05/12/20 02:00 0.5 I&O- Last 24 Hours up to 6 AM 05/16/20 06:00 Intake Total 1800 ml Output Total 3670 ml Balance -1870 ml Laboratory Data Microbiology Microbiology 05/15/20 Urine Culture, Received Pending LUIS AMIN DO May 16, 2020 19:35
[2020-05-16] MEDS: LORATADINE 10 MG TAB PO SCH (20:36)
[2020-05-16] MEDS: zolPIDEM TARTRATE 5 MG TAB PO SCH (20:36)
[2020-05-16] MEDS: ROSUVASTATIN 10 MG TAB (CRESTOR) PO SCH (20:37)
[2020-05-16 22:00] VITALS: BP 126/66
[2020-05-17 06:00] VITALS: BP 125/65
[2020-05-17] MEDS: metroNIDAZOLE 500 MG in IV 1 EA IV SCH ×3 (06:04→21:45)
[2020-05-17] MEDS: SODIUM CHLORIDE 0.9% INJ 10 ML SYR IV SCH ×2 (06:04→18:32)
[2020-05-17] MEDS: PANTOPRAZOLE 40MG VIAL (C9113 PER 1) IV SCH ×2 (08:13→21:45)
[2020-05-17] MEDS: SUCRALFATE SUSP 1GM/10ML UD PO SCH ×4 (08:13→21:44)
[2020-05-17] MEDS: AMIODARONE 200 MG TAB (PACERONE) PO SCH (08:14)
[2020-05-17] MEDS: FOLIC ACID 1 MG TAB PO SCH (08:14)
[2020-05-17] MEDS: SODIUM CHLORIDE 0.9% INJ 10 ML SYR IV PRN ×3 (08:14→16:46)
[2020-05-17] MEDS: ACETAMINOPHEN TAB 650MG DOSE (2X325MG) PO SCH ×3 (08:14→21:45)
[2020-05-17] MEDS: OLANZapine 2.5MG TABLET PO SCH ×2 (08:14→21:44)
[2020-05-17] MEDS: DULoxetine 30 MG CAP (CYMBALTA) PO SCH ×2 (08:14→21:44)
[2020-05-17] MEDS: TOLTERODINE TARTRATE 2 MG LA CAP (DETROL LA) PO SCH (08:14)
[2020-05-17] MEDS: GABAPENTIN 300 MG CAP PO SCH ×3 (08:15→21:44)
[2020-05-17] MEDS: oxyCODONE 5MG TAB PO PRN ×2 (08:15→13:27)
[2020-05-17] MEDS: ONDANSETRON 4MG/2ML VIAL IV PRN ×3 (08:23→21:45)
[2020-05-17 08:33] LABS: HEMOGLOBIN 8.4 g/dl (12.0-15.5); MEAN CORPUSCULAR HEMOGLOBIN 28.7 pg (27.0-33.0); MEAN CORPUSCULAR HGB CONC 31.1 g/dl (32.0-36.5); MEAN CORPUSCULAR VOLUME 92.2 fl (80.0-96.0); PLATELET COUNT, AUTOMATED 209 10^3/uL (150-450); RED BLOOD COUNT 2.93 10^6/uL (4.00-5.40); WHITE BLOOD COUNT 13.2 10^3/uL (4.0-10.0)
[2020-05-17 08:40] LABS: BLOOD UREA NITROGEN 28 MG/DL (7-18); CALCIUM LEVEL 7.9 MG/DL (8.8-10.2); CARBON DIOXIDE LEVEL 24 MEQ/L (21-32); CHLORIDE LEVEL 106 MEQ/L (98-107); CREATININE FOR GFR 0.74 MG/DL (0.55-1.30); GLOMERULAR FILTRATION RATE > 60.0 (>45); GLUCOSE, FASTING 112 MG/DL (70-100); POTASSIUM SERUM 4.3 MEQ/L (3.5-5.1); SODIUM LEVEL 139 MEQ/L (136-145)
[2020-05-17] MEDS: CIPROFLOXACIN 400 MG in IV 1 EA IV SCH (12:02)
--- NOTE | 2020-05-17 13:02 | IPNPDOC ---
Subjective Date Seen The patient was seen on 05/17/20. Subjective Chief Complaint/HPI Patient is a 65 year old female with fibromyalgia, chronic pain syndrome, and recent subtotal colectomy on 03/28/20 for bowel ischemia here for SBO, s/p surgery. Today is POD#8. This morning, she still had the NGT, but it was clamped. Otherwise, still having abdominal pain. Denies fever, chest pain, dyspnea, or dysuria. Constitutional: Denies: Fever Pulmonary: Denies: Dyspnea Cardiovascular: Denies: Chest Pain Gastrointestinal: Reports: Abdominal Pain Genitourinary: Denies: Dysuria Objective Physical Examination General Exam: Positive: Alert, Cooperative Eye Exam: Positive: EOMI Neck Exam: Positive: Supple Chest Exam: Positive: Clear to auscultation, Normal air movement Heart Exam: Positive: Rate Normal, Regular Rhythm Abdomen Exam: Positive: BS Hypoactive, Tenderness Extremity Exam: Negative: Edema Neuro Exam: Positive: Normal Speech Psych Exam: Positive: Mental status NL, Mood NL Assessment /Plan Assessment Patient is a 65 year old female with fibromyalgia and chronic pain syndrome here for SBO. On 03/28/2020 she had subtotal colectomy for bowel ischemia and transferred to ARU for IV antibiotics. on 04/13/2020, she was transferred to inpatient unit for sepsis with seroma. She underwent drainage of subhepatic collection and wound vac was placed. She completed a course of flagyl and levaquin. Then she had fecal vomitus with worsening abdominal pain. She was found to have high grade SBO with multiple transition points. General surgery took her down for surgery on 05/09/2020. Today is POD#8. Still having abdominal pain. There may be a component of ileus. Surgery following recommendations appreciated. Otherwise, she will need rehab. Plan/VTE VTE Prophylaxis Ordered?: Yes Plan 1. SBO. CT demonstrated multiple transition points. General surgery is following, recommendations appreciated. Went to surgery on 05/09/2020. Today is POD #8. NGT clamp this morning 2. Ileus. Question if there is a component of ileus involved. NGT placed. Patient on TPN. Patient on PRN metoclopramide for nausea/vomiting 3. Subhepatic seroma/hematoma. S/p drainage. Completed course of antibiotics. 4. Atrial fibrillation. On amiodarone. Atenolol held due to low blood pressure. Apixaban on hold due to blood tinged output from NGT. 4. HTN. Atenolol was held due to hypotension. Blood pressure better off atenolol. Continue to monitor 5. Generalized weakness: Deconditioning. Will need rehab 6. Dyslipidemia: Crestor 7. Chronic pain syndrome: Olanzapine, Duloxetine, Gabapentin 8. Hyponatremia: Resolved with lower rate of TPN. Continue to monitor sodium while on TPN 9. DVT ppx: SCD and TEDS. Dispo: Will need rehab VS, I&O, 24H, Fishbone Vital Signs/I&O Vital Signs Date Time Temp Pulse Resp B/P (MAP) Pulse Ox O2 Delivery O2 Flow Rate FiO2 05/17/20 08:45 16 Room Air 05/17/20 06:00 97.5 96 125/65 (85) 100 05/12/20 02:00 0.5 I&O- Last 24 Hours up to 6 AM 05/17/20 06:00 Intake Total 1657 ml Output Total 3260 ml Balance -1603 ml Laboratory Data 24H LABS Laboratory Tests 2 05/17/20 06:52: Nucleated Red Blood Cells % (auto) 0.2H, Anion Gap 9, Glomerular Filtration Rate > 60.0, Calcium Level 7.9L CBC/BMP Laboratory Tests 05/17/20 06:52 Microbiology Microbiology 05/15/20 Urine Culture, Received Pending LUIS AMIN DO May 17, 2020 13:02
[2020-05-17 13:27] LABS: HEMOGLOBIN 9.9 g/dl (12.0-15.5)
[2020-05-17 14:00] VITALS: BP 133/68
[2020-05-17] MEDS: MORPHINE 2 MG/ML 1ML VIAL (J2270) IV PRN ×2 (16:46→21:45)
[2020-05-17] MEDS: HumaLOG INSULIN (NovoLOG) PER UNIT SC SCH (18:00)
[2020-05-17] MEDS ORDERED: AMINO AC/ELECTROLYTE/DEX/CALC 2,000 ML IV SCH (18:00)
[2020-05-17] MEDS ORDERED: FAT EMULSION IV 20% 500 ML IV SCH (18:00)
[2020-05-17] MEDS: zolPIDEM TARTRATE 5 MG TAB PO SCH (21:44)
[2020-05-17] MEDS: ROSUVASTATIN 10 MG TAB (CRESTOR) PO SCH (21:44)
[2020-05-17] MEDS: LORATADINE 10 MG TAB PO SCH (21:44)
[2020-05-17 22:00] VITALS: BP 130/67
[2020-05-18] MEDS: CIPROFLOXACIN 400 MG in IV 1 EA IV SCH ×3 (00:09→23:50)
[2020-05-18] MEDS: HumaLOG INSULIN (NovoLOG) PER UNIT SC SCH ×3 (05:32→12:00)
[2020-05-18] MEDS: metroNIDAZOLE 500 MG in IV 1 EA IV SCH ×3 (05:38→22:17)
[2020-05-18] MEDS: SODIUM CHLORIDE 0.9% INJ 10 ML SYR IV SCH ×2 (05:39→18:15)
[2020-05-18 06:00] VITALS: BP 129/67
[2020-05-18] MEDS: FOLIC ACID 1 MG TAB PO SCH (08:11)
[2020-05-18] MEDS: ONDANSETRON 4MG/2ML VIAL IV PRN ×5 (08:11→22:17)
[2020-05-18] MEDS: PANTOPRAZOLE 40MG VIAL (C9113 PER 1) IV SCH ×2 (08:11→22:17)
[2020-05-18] MEDS: TOLTERODINE TARTRATE 2 MG LA CAP (DETROL LA) PO SCH (08:11)
[2020-05-18] MEDS: SODIUM CHLORIDE 0.9% INJ 10 ML SYR IV PRN ×2 (08:11→15:35)
[2020-05-18] MEDS: SUCRALFATE SUSP 1GM/10ML UD PO SCH ×4 (08:11→22:17)
[2020-05-18] MEDS: GABAPENTIN 300 MG CAP PO SCH ×3 (08:12→22:18)
[2020-05-18] MEDS: OLANZapine 2.5MG TABLET PO SCH ×2 (08:12→22:19)
[2020-05-18] MEDS: ACETAMINOPHEN TAB 650MG DOSE (2X325MG) PO SCH ×3 (08:12→22:18)
[2020-05-18] MEDS: AMIODARONE 200 MG TAB (PACERONE) PO SCH (08:12)
[2020-05-18] MEDS: oxyCODONE 5MG TAB PO PRN ×3 (08:12→16:37)
[2020-05-18] MEDS: DULoxetine 30 MG CAP (CYMBALTA) PO SCH ×2 (08:12→22:18)
[2020-05-18 08:50] LABS: HEMATOCRIT 31.6 % (36.0-47.0); HEMOGLOBIN 9.6 g/dl (12.0-15.5); MEAN CORPUSCULAR HEMOGLOBIN 28.2 pg (27.0-33.0); MEAN CORPUSCULAR HGB CONC 30.4 g/dl (32.0-36.5); MEAN CORPUSCULAR VOLUME 92.9 fl (80.0-96.0); PLATELET COUNT, AUTOMATED 236 10^3/uL (150-450); WHITE BLOOD COUNT 13.3 10^3/uL (4.0-10.0)
[2020-05-18 09:05] LABS: BLOOD UREA NITROGEN 25 MG/DL (7-18); CARBON DIOXIDE LEVEL 25 MEQ/L (21-32); CHLORIDE LEVEL 107 MEQ/L (98-107); CREATININE FOR GFR 0.77 MG/DL (0.55-1.30); GLOMERULAR FILTRATION RATE > 60.0 (>45); GLUCOSE, FASTING 105 MG/DL (70-100); POTASSIUM SERUM 4.4 MEQ/L (3.5-5.1); SODIUM LEVEL 139 MEQ/L (136-145)
[2020-05-18 14:00] VITALS: BP 126/66
[2020-05-18] MEDS: MORPHINE 2 MG/ML 1ML VIAL (J2270) IV PRN ×3 (14:08→22:20)
--- NOTE | 2020-05-18 18:40 | IPNPDOC ---
Subjective Date Seen The patient was seen on 05/18/20. Subjective Chief Complaint/HPI Patient is a 65 year old female with fibromyalgia, chronic pain syndrome, and recent subtotal colectomy on 03/28/20 for bowel ischemia here for SBO, s/p surgery. Today is POD#9. She was seen in the morning. This morning, the NGT has been removed and she tolerated a clear liquid diet. There was some output in her ostomy bag. Abdominal pain present, but improving. Overnight, cleary was removed and she had an incontinence episode. Denies fever, chest pain, dyspnea, or dysuria. Constitutional: Denies: Chills, Fever Pulmonary: Denies: Dyspnea Cardiovascular: Denies: Chest Pain Gastrointestinal: Reports: Abdominal Pain Genitourinary: Reports: Incontinence; Denies: Dysuria Objective Physical Examination General Exam: Positive: Alert, Cooperative Eye Exam: Positive: EOMI Neck Exam: Positive: Supple Chest Exam: Positive: Clear to auscultation, Normal air movement Heart Exam: Positive: Rate Normal, Regular Rhythm Abdomen Exam: Positive: BS Hypoactive, Tenderness Extremity Exam: Negative: Edema Neuro Exam: Positive: Normal Speech Psych Exam: Positive: Mental status NL, Mood NL Assessment /Plan Assessment Patient is a 65 year old female with fibromyalgia and chronic pain syndrome here for SBO. On 03/28/2020 she had subtotal colectomy for bowel ischemia and t ransferred to ARU for IV antibiotics. on 04/13/2020, she was transferred to inpatient unit for sepsis with seroma. She underwent drainage of subhepatic collection and wound vac was placed. She completed a course of flagyl and levaquin. Then she had fecal vomitus with worsening abdominal pain. She was found to have high grade SBO with multiple transition points. General surgery took her down for surgery on 05/09/2020. Today is POD#9. Still having abdominal pain. There may be a component of ileus. Surgery following recommendations appreciated. Otherwise, she will need rehab. Plan/VTE VTE Prophylaxis Ordered?: Yes Plan 1. SBO. CT demonstrated multiple transition points. General surgery is following, recommendations appreciated. Went to surgery on 05/09/2020. Today is POD #9. NGT was removed yesterday. Tolerated a clear liquid diet this morning. 2. Ileus. Question if there is a component of ileus involved. NGT placed. Patient on TPN. Patient on PRN metoclopramide for nausea/vomiting 3. Subhepatic seroma/hematoma. S/p drainage. Completed course of antibiotics. 4. Atrial fibrillation. On amiodarone. Atenolol held due to low blood pressure. Apixaban on hold due to blood tinged output from NGT. 4. HTN. Atenolol was held due to hypotension. Blood pressure better off atenolol. Continue to monitor 5. Generalized weakness: Deconditioning. Will need rehab 6. Dyslipidemia: Crestor 7. Chronic pain syndrome: Olanzapine, Duloxetine, Gabapentin 8. Hyponatremia: Resolved with lower rate of TPN. Continue to monitor sodium while on TPN 9. DVT ppx: SCD and TEDS. Dispo: Will need rehab VS, I&O, 24H, Fishbone Vital Signs/I&O Vital Signs Date Time Temp Pulse Resp B/P (MAP) Pulse Ox O2 Delivery O2 Flow Rate FiO2 05/18/20 18:30 16 Room Air 05/18/20 14:00 97.3 95 126/66 (86) 97 05/12/20 02:00 0.5 I&O- Last 24 Hours up to 6 AM 05/18/20 06:00 Intake Total 2772 ml Output Total 1975 ml Balance 797 ml Laboratory Data 24H LABS Laboratory Tests 2 05/17/20 20:05: Bedside Glucose (Misc Panel) 115 05/17/20 23:56: Bedside Glucose (Misc Panel) 103 05/18/20 07:37: Nucleated Red Blood Cells % (auto) 0.4H, Anion Gap 7L, Glomerular Filtration Rate > 60.0, Calcium Level 8.0L 05/18/20 12:10: Bedside Glucose (Misc Panel) 114 05/18/20 16:59: Bedside Glucose (Misc Panel) 118H CBC/BMP Laboratory Tests 05/18/20 07:37 Microbiology Microbiology 05/15/20 Urine Culture - Final, Complete Enterococcus Faecalis LUIS AMIN DO May 18, 2020 18:40
[2020-05-18 22:00] VITALS: BP 125/65
[2020-05-18] MEDS: zolPIDEM TARTRATE 5 MG TAB PO SCH (22:18)
[2020-05-18] MEDS: ROSUVASTATIN 10 MG TAB (CRESTOR) PO SCH (22:19)
[2020-05-18] MEDS: LORATADINE 10 MG TAB PO SCH (22:19)
[2020-05-19] MEDS: metroNIDAZOLE 500 MG in IV 1 EA IV SCH ×3 (05:46→20:55)
[2020-05-19] MEDS: SODIUM CHLORIDE 0.9% INJ 10 ML SYR IV SCH ×2 (05:46→18:03)
[2020-05-19 06:00] VITALS: BP 141/74
[2020-05-19 06:43] LABS: HEMATOCRIT 28.9 % (36.0-47.0); HEMOGLOBIN 9.1 g/dl (12.0-15.5); MEAN CORPUSCULAR HGB CONC 31.5 g/dl (32.0-36.5); PLATELET COUNT, AUTOMATED 205 10^3/uL (150-450); RED BLOOD COUNT 3.14 10^6/uL (4.00-5.40); WHITE BLOOD COUNT 10.9 10^3/uL (4.0-10.0)
[2020-05-19 07:13] LABS: BLOOD UREA NITROGEN 23 MG/DL (7-18); CALCIUM LEVEL 7.9 MG/DL (8.8-10.2); CARBON DIOXIDE LEVEL 24 MEQ/L (21-32); CHLORIDE LEVEL 107 MEQ/L (98-107); CREATININE FOR GFR 0.95 MG/DL (0.55-1.30); GLOMERULAR FILTRATION RATE > 60.0 (>45); GLUCOSE, FASTING 86 MG/DL (70-100); POTASSIUM SERUM 4.8 MEQ/L (3.5-5.1); SODIUM LEVEL 138 MEQ/L (136-145)
[2020-05-19] MEDS: SUCRALFATE SUSP 1GM/10ML UD PO SCH ×4 (07:45→20:54)
[2020-05-19 08:15] VITALS: BP 107/70
[2020-05-19] MEDS: oxyCODONE 5MG TAB PO PRN (08:45)
[2020-05-19] MEDS: ACETAMINOPHEN TAB 650MG DOSE (2X325MG) PO SCH ×3 (09:40→20:55)
[2020-05-19] MEDS: TOLTERODINE TARTRATE 2 MG LA CAP (DETROL LA) PO SCH (09:42)
[2020-05-19] MEDS: OLANZapine 2.5MG TABLET PO SCH ×2 (09:42→20:55)
[2020-05-19] MEDS: DULoxetine 30 MG CAP (CYMBALTA) PO SCH ×2 (09:43→20:54)
[2020-05-19] MEDS: GABAPENTIN 300 MG CAP PO SCH ×3 (09:44→20:55)
[2020-05-19] MEDS: FOLIC ACID 1 MG TAB PO SCH (09:44)
[2020-05-19] MEDS: AMIODARONE 200 MG TAB (PACERONE) PO SCH (09:44)
[2020-05-19] MEDS: PANTOPRAZOLE 40MG VIAL (C9113 PER 1) IV SCH ×2 (09:46→20:55)
--- NOTE | 2020-05-19 10:58 | IPNPDOC ---
Text Note Date of Service The patient was seen on 05/19/20. NOTE Patient was seen and examined this morning by me. She looks in the very good mood and states that she has been getting out of the bed to chair without any difficulty. Appetite is good and she has been able to tolerate a clear liquid diet. PHYSICAL EXAMINATION: General: The patient is awake, alert, oriented x3, sitting up in the bed in no apparent distress. Head and Neck Exam: Extraocular muscles intact. Pupils equally round and reactive to light. Mucous membranes are moist. Neck is supple. There is no jugular venous distention (JVD). Cardiovascular: S1 and S2, regular rate. Trace edema of the bilateral lower extremities. Respiratory: No crackles, no rhonchi, no rales. Mildly decreased breath sounds at the left side. Abdomen: Ileostomy present with healthy stoma and a functional ileostomy liquid stool in the ileostomy bag. Wound VAC present and very mild tenderness on palpation. No rigidity, no guarding. Bowel sounds are present. Genitourinary: Deferred Musculoskeletal: Clubbing of the fingernails, no cyanosis was noted. PICC line in the right cubital fossa Central Nervous System (JAVASCRIPT SOFTWARE ENGINEER): No focal deficit. Power is 5/5 in all extremities. Assessment and plan Patient is a 65 year old female with fibromyalgia and chronic pain syndrome, was admitted for SBO and on 03/28/2020 she had subtotal colectomy for bowel ischemia and transferred to ARU. On 04/13/2020, she was transferred to inpatient unit for sepsis with seroma. She underwent drainage of subhepatic collection and wound vac was placed. She completed a course of flagyl and levaquin. Then she had fecal vomitus with worsening abdominal pain. She was found to have high grade SBO with multiple transition points. General surgery took her down for surgery on 05/09/2020. . She has been improving and currently has a wound VAC and an ileostomy which is functional. 1. SBO likely related to her multiple abdominal surgeries. Improving. This morning she has been able to tolerate good oral intake, which has been liquid and has a good ileostomy output. Patient was on TPN till 05/18/20 and has been tolerating clear liquid diet well. We will talk to surgery for advancement of her diet to a full liquid diet. Continue wound VAC as per surgical recommendations. Currently, the wound VAC looks clean and very minimal drainage. 2. Ileus. Improved .Patient on PRN metoclopramide for nausea/vomiting 3. Subhepatic seroma/hematoma. S/p drainage. Completed course of antibiotics. 4. Atrial fibrillation. On amiodarone. Atenolol held due to low blood pressure. Apixaban will be restarted as the patient has a chart of a score more than 2 and on my discussion with her. She understands the risks and the benefits and is agreeable to be restarted on an anticoagulant. 4. HTN. Atenolol was held due to hypotension. Continue to monitor 5. Generalized weakness: Deconditioning. Will need rehab 6. Dyslipidemia: Crestor 7. Chronic pain syndrome: Olanzapine, Duloxetine, Gabapentin DVT ppx: SCD and TEDS. Dispo: Will need rehab VS,Fishbone, I+O VS, Fishbone, I+O Laboratory Tests 05/19/20 06:30 Vital Signs Date Time Temp Pulse Resp B/P (MAP) Pulse Ox O2 Delivery O2 Flow Rate FiO2 05/19/20 09:15 18 05/19/20 08:45 Room Air 05/19/20 08:15 96.9 96 107/70 (82 95 I&O- Last 24 Hours up to 6 AM 05/19/20 06:00 Intake Total 2570 ml Output Total 1950 ml Balance 620 ml MARIPOSA CARRION MD May 19, 2020 10:58
[2020-05-19] MEDS: CIPROFLOXACIN 400 MG in IV 1 EA IV SCH (11:46)
[2020-05-19 14:24] VITALS: BP 105/62
[2020-05-19 14:45] VITALS: BP 105/62
[2020-05-19] MEDS: ONDANSETRON 4MG/2ML VIAL IV PRN ×2 (15:02→20:55)
[2020-05-19] MEDS: MORPHINE 2 MG/ML 1ML VIAL (J2270) IV PRN ×2 (15:04→20:56)
[2020-05-19] MEDS: SODIUM CHLORIDE 0.9% INJ 10 ML SYR IV PRN ×2 (15:05→22:27)
[2020-05-19] MEDS: ROSUVASTATIN 10 MG TAB (CRESTOR) PO SCH (20:54)
[2020-05-19] MEDS: zolPIDEM TARTRATE 5 MG TAB PO SCH (20:54)
[2020-05-19] MEDS: LORATADINE 10 MG TAB PO SCH (20:54)
[2020-05-19] MEDS: APIXABAN 5 MG TAB (ELIQUIS) PO SCH (20:55)
[2020-05-19 22:00] VITALS: BP 126/60
[2020-05-20] MEDS: CIPROFLOXACIN 400 MG in IV 1 EA IV SCH ×2 (00:53→12:38)
[2020-05-20] MEDS: SODIUM CHLORIDE 0.9% INJ 10 ML SYR IV PRN ×6 (00:55→23:42)
[2020-05-20] MEDS: metroNIDAZOLE 500 MG in IV 1 EA IV SCH ×2 (05:22→14:09)
[2020-05-20 06:00] VITALS: BP 127/69
[2020-05-20 06:24] LABS: HEMOGLOBIN 9.4 g/dl (12.0-15.5); MEAN CORPUSCULAR HEMOGLOBIN 28.1 pg (27.0-33.0); MEAN CORPUSCULAR HGB CONC 30.3 g/dl (32.0-36.5); MEAN CORPUSCULAR VOLUME 92.8 fl (80.0-96.0); PLATELET COUNT, AUTOMATED 199 10^3/uL (150-450); RED BLOOD COUNT 3.34 10^6/uL (4.00-5.40); WHITE BLOOD COUNT 7.8 10^3/uL (4.0-10.0)
[2020-05-20] MEDS: SODIUM CHLORIDE 0.9% INJ 10 ML SYR IV SCH ×2 (06:39→19:13)
[2020-05-20 06:50] LABS: BLOOD UREA NITROGEN 15 MG/DL (7-18); CARBON DIOXIDE LEVEL 23 MEQ/L (21-32); CHLORIDE LEVEL 106 MEQ/L (98-107); GLOMERULAR FILTRATION RATE > 60.0 (>45); GLUCOSE, FASTING 92 MG/DL (70-100); POTASSIUM SERUM 4.4 MEQ/L (3.5-5.1); SODIUM LEVEL 137 MEQ/L (136-145)
[2020-05-20] MEDS: PANTOPRAZOLE 40MG VIAL (C9113 PER 1) IV SCH (08:54)
[2020-05-20] MEDS: GABAPENTIN 300 MG CAP PO SCH ×3 (08:55→20:05)
[2020-05-20] MEDS: SUCRALFATE SUSP 1GM/10ML UD PO SCH ×4 (08:55→20:04)
[2020-05-20] MEDS: ACETAMINOPHEN TAB 650MG DOSE (2X325MG) PO SCH ×3 (08:56→20:05)
[2020-05-20] MEDS: TOLTERODINE TARTRATE 2 MG LA CAP (DETROL LA) PO SCH (08:56)
[2020-05-20] MEDS: oxyCODONE 5MG TAB PO PRN ×3 (08:56→20:06)
[2020-05-20] MEDS: FOLIC ACID 1 MG TAB PO SCH (08:56)
[2020-05-20] MEDS: APIXABAN 5 MG TAB (ELIQUIS) PO SCH ×2 (08:57→20:05)
[2020-05-20] MEDS: AMIODARONE 200 MG TAB (PACERONE) PO SCH (08:57)
[2020-05-20] MEDS: DULoxetine 30 MG CAP (CYMBALTA) PO SCH ×2 (08:57→20:05)
[2020-05-20] MEDS: OLANZapine 2.5MG TABLET PO SCH ×2 (08:58→20:05)
--- NOTE | 2020-05-20 11:08 | IPNPDOC ---
Text Note Date of Service The patient was seen on 05/20/20. NOTE Patient was seen and examined this morning by me. She looks in the very good mood and states that she has been getting out of the bed to chair without any difficulty. She wants her foot to be escalated to soft diet PHYSICAL EXAMINATION: General: The patient is awake, alert, oriented x3, sitting up in the bed in no apparent distress. Head and Neck Exam: Extraocular muscles intact. Pupils equally round and reactive to light. Mucous membranes are moist. Neck is supple. There is no jugular venous distention (JVD). Cardiovascular: S1 and S2, regular rate. Trace edema of the bilateral lower extremities. Respiratory: No crackles, no rhonchi, no rales. Mildly decreased breath sounds at the left side. Abdomen: Ileostomy present with healthy stoma and a functional ileostomy liquid stool in the ileostomy bag. Wound VAC present and very mild tenderness on palpation. No rigidity, no guarding. Bowel sounds are present. Genitourinary: Deferred Musculoskeletal: Clubbing of the fingernails, no cyanosis was noted. PICC line in the right cubital fossa Central Nervous System (VISITOR SERVICES INFORMATION ASSISTANT): No focal deficit. Power is 5/5 in all extremities. Assessment and plan Patient is a 65 year old female with fibromyalgia and chronic pain syndrome, was admitted for SBO and on 03/28/2020 she had subtotal colectomy for bowel ischemia and transferred to ARU. On 04/13/2020, she was transferred to inpatient unit for sepsis with seroma. She underwent drainage of subhepatic collection and wound vac was placed. She completed a course of flagyl and levaquin. Then she had fecal vomitus with worsening abdominal pain. She was found to have high grade SBO with multiple transition points. General surgery took her down for surgery on 05/09/2020. . She has been improving and currently has a wound VAC and an ileostomy which is functional. Her wound VAC will be reevaluated tomorrow and possibly discontinued as she has had very minimal output. 1. SBO likely related to her multiple abdominal surgeries. Improving. This morning she has been able to tolerate good oral intake, which has been liquid and has a good ileostomy output. Patient was on TPN till 05/18/20 and has been tolerating full liquid diet well. I spoke with surgery, Dr. Johnson for advancement of her diet to soft diet and she'll be put on low fiber, low residual diet. 2. Ileus. Improved .Patient on PRN metoclopramide for nausea/vomiting 3. Subhepatic seroma/hematoma. S/p drainage. Completed course of antibiotics. 4. Atrial fibrillation. On amiodarone. Atenolol held due to low blood pressure. Apixaban was restarted on 05/19/20 as the patient has a CHADVASC score more than 2 and on my discussion with her. She understands the risks and the benefits and is agreeable to be restarted on an anticoagulant. 4. HTN. Atenolol was held due to hypotension. Continue to monitor 5. Generalized weakness: Deconditioning. Will need rehab 6. Dyslipidemia: Crestor 7. Chronic pain syndrome: Olanzapine, Duloxetine, Gabapentin DVT ppx: SCD and TEDS. Dispo: She wants to go home with services and the process has been started. VS,Jerrybone, I+O VS, Fishbone, I+O Laboratory Tests 05/20/20 06:01 Vital Signs Date Time Temp Pulse Resp B/P (MAP) Pulse Ox O2 Delivery O2 Flow Rate FiO2 05/20/20 08:56 16 Room Air 05/20/20 06:00 97.9 94 127/69 (88) 97 I&O- Last 24 Hours up to 6 AM 05/20/20 06:00 Intake Total 1490 ml Output Total 2350 ml Balance -860 ml MARIPOSA CARRION MD May 20, 2020 11:07
[2020-05-20 14:00] VITALS: BP 131/93
[2020-05-20] MEDS: CIPROFLOXACIN 500MG TABLET PO SCH (19:11)
[2020-05-20] MEDS: ROSUVASTATIN 10 MG TAB (CRESTOR) PO SCH (20:04)
[2020-05-20] MEDS: LORATADINE 10 MG TAB PO SCH (20:04)
[2020-05-20] MEDS: zolPIDEM TARTRATE 5 MG TAB PO SCH (20:04)
[2020-05-20 22:00] VITALS: BP 133/64
[2020-05-20] MEDS: metroNIDAZOLE (FLAGYL) 500MG TABLET PO SCH (22:07)
[2020-05-20] MEDS: ONDANSETRON 4MG/2ML VIAL IV PRN (22:07)
[2020-05-20] MEDS: METOCLOPRAMIDE INJ 10MG/2ML VIAL (J2765 PER 1) IV PRN (23:41)
[2020-05-21 06:00] VITALS: BP 134/67
[2020-05-21] MEDS: metroNIDAZOLE (FLAGYL) 500MG TABLET PO SCH ×3 (06:19→21:21)
[2020-05-21] MEDS: SODIUM CHLORIDE 0.9% INJ 10 ML SYR IV SCH (06:19)
[2020-05-21] MEDS: CIPROFLOXACIN 500MG TABLET PO SCH ×2 (06:19→17:18)
[2020-05-21] MEDS: SODIUM CHLORIDE 0.9% INJ 10 ML SYR IV PRN (06:20)
[2020-05-21] MEDS: oxyCODONE 5MG TAB PO PRN ×4 (06:20→20:43)
[2020-05-21 07:10] LABS: HEMATOCRIT 31.3 % (36.0-47.0); HEMOGLOBIN 9.7 g/dl (12.0-15.5); MEAN CORPUSCULAR HEMOGLOBIN 28.7 pg (27.0-33.0); MEAN CORPUSCULAR VOLUME 92.6 fl (80.0-96.0); PLATELET COUNT, AUTOMATED 213 10^3/uL (150-450); RED BLOOD COUNT 3.38 10^6/uL (4.00-5.40); WHITE BLOOD COUNT 8.5 10^3/uL (4.0-10.0)
[2020-05-21 07:34] LABS: BLOOD UREA NITROGEN 11 MG/DL (7-18); CALCIUM LEVEL 8.3 MG/DL (8.8-10.2); CARBON DIOXIDE LEVEL 24 MEQ/L (21-32); CHLORIDE LEVEL 107 MEQ/L (98-107); CREATININE FOR GFR 0.96 MG/DL (0.55-1.30); GLOMERULAR FILTRATION RATE > 60.0 (>45); GLUCOSE, FASTING 92 MG/DL (70-100); POTASSIUM SERUM 4.3 MEQ/L (3.5-5.1); SODIUM LEVEL 139 MEQ/L (136-145)
[2020-05-21] MEDS: SUCRALFATE SUSP 1GM/10ML UD PO SCH ×4 (08:31→20:41)
[2020-05-21] MEDS: APIXABAN 5 MG TAB (ELIQUIS) PO SCH ×2 (08:32→20:42)
[2020-05-21] MEDS: GABAPENTIN 300 MG CAP PO SCH ×3 (08:32→20:42)
[2020-05-21] MEDS: ACETAMINOPHEN TAB 650MG DOSE (2X325MG) PO SCH ×3 (08:32→20:42)
[2020-05-21] MEDS: PANTOPRAZOLE 40MG TAB (PROTONIX) PO SCH (08:32)
[2020-05-21] MEDS: TOLTERODINE TARTRATE 2 MG LA CAP (DETROL LA) PO SCH (08:32)
[2020-05-21] MEDS: AMIODARONE 200 MG TAB (PACERONE) PO SCH (08:33)
[2020-05-21] MEDS: FOLIC ACID 1 MG TAB PO SCH (08:33)
[2020-05-21] MEDS: DULoxetine 30 MG CAP (CYMBALTA) PO SCH ×2 (08:33→20:42)
[2020-05-21] MEDS: METOCLOPRAMIDE 5 MG TAB PO PRN ×3 (11:03→23:46)
[2020-05-21] MEDS: OLANZapine 2.5MG TABLET PO SCH ×2 (11:03→21:48)
--- NOTE | 2020-05-21 11:23 | IPNPDOC ---
Text Note Date of Service The patient was seen on 05/21/20. NOTE Patient was seen and examined this morning by me. She is doing fine tolerated soft diet. PHYSICAL EXAMINATION: General: The patient is awake, alert, oriented x3, sitting up in the bed in no apparent distress. Head and Neck Exam: Extraocular muscles intact. Pupils equally round and reactive to light. Mucous membranes are moist. Neck is supple. There is no jugular venous distention (JVD). Cardiovascular: S1 and S2, regular rate. Trace edema of the bilateral lower extremities. Respiratory: No crackles, no rhonchi, no rales. Mildly decreased breath sounds at the left side. Abdomen: Ileostomy present with healthy stoma and a functional ileostomy soft stool in the ileostomy bag. Wound VAC present and very mild tenderness on palpation. No rigidity, no guarding. Bowel sounds are present. Genitourinary: Deferred Musculoskeletal: Clubbing of the fingernails, no cyanosis was noted. PICC line in the right cubital fossa Central Nervous System (MISSIONARY COORDINATOR): No focal deficit. Power is 5/5 in all extremities. Assessment and plan Patient is a 65 year old female with fibromyalgia and chronic pain syndrome, was admitted for SBO and on 03/28/2020 she had subtotal colectomy for bowel ischemia and transferred to ARU. On 04/13/2020, she was transferred to inpatient unit for sepsis with seroma. She underwent drainage of subhepatic collection and wound vac was placed. She completed a course of flagyl and levaquin. Then she had fecal vomitus with worsening abdominal pain. She was found to have high grade SBO with multiple transition points. General surgery took her down for surgery on 05/09/2020. . She has been improving and currently has a wound VAC and an ileostomy which is functional. Her wound VAC will be reevaluated today and possibly discontinued as she has had very minimal output. 1. SBO likely related to her multiple abdominal surgeries. Improving. This m orning she has been able to tolerate good oral intake, which has been liquid and has a good ileostomy output. Patient was on TPN till 05/18/20 and has been tolerating soft diet well. continue with low fiber, low residual diet. 2. Ileus. Improved .Patient on PRN metoclopramide for nausea/vomiting 3. Subhepatic seroma/hematoma. S/p drainage. Completed course of antibiotics. 4. Atrial fibrillation. On amiodarone. Atenolol held due to low blood pressure. Apixaban was restarted on 05/19/20 as the patient has a CHADVASC score more than 2 and on my discussion with her. She understands the risks and the benefits and is agreeable to be restarted on an anticoagulant. 4. HTN. Atenolol was held due to hypotension. Continue to monitor 5. Generalized weakness: Deconditioning. Will need rehab 6. Dyslipidemia: Crestor 7. Chronic pain syndrome: Olanzapine, Duloxetine, Gabapentin DVT ppx: SCD and TEDS. Dispo: She wants to go home with services and the process has been started. Discharge tomorrow VS,[place], I+O VSFranklin, I+O Laboratory Tests 05/21/20 06:23 Vital Signs Date Time Temp Pulse Resp B/P (MAP) Pulse Ox O2 Delivery O2 Flow Rate FiO2 05/21/20 11:03 17 05/21/20 06:20 Room Air 05/21/20 06:00 97.4 103 134/67 (89) 94 I&O- Last 24 Hours up to 6 AM 05/21/20 06:00 Intake Total 2035 ml Output Total 2100 ml Balance -65 ml MARIPOSA CARRION MD May 21, 2020 11:23
[2020-05-21] MEDS: ONDANSETRON 4 MG TAB PO PRN ×2 (13:56→20:42)
[2020-05-21 14:00] VITALS: BP 136/70
--- NOTE | 2020-05-21 15:20 | ECGEPIP ---
[facility] Test Date: 2020-05-03 Pat Name: DUY RODRIGUEZ Department: Room: - Gender: Female Internet Merchant: TEJ : 1955 Requested By: WINSTON HOSKINS Order Number: [id number] Reading MD: Abhinav Theodore Measurements Intervals [place] Rate: 78 P: 34 IA: 156 QRS: -13 QRSD: 82 T: 8 QT: 424 QTc: 484 Interpretive Statements SINUS RHYTHM WITH POOR R WAVE PROGRESION VOLTAGE CRITERIA FOR LVH ABNORMAL ECG NO PRIOR TRACING
[2020-05-21] MEDS: ROSUVASTATIN 10 MG TAB (CRESTOR) PO SCH (20:41)
[2020-05-21] MEDS: zolPIDEM TARTRATE 5 MG TAB PO SCH (20:41)
[2020-05-21] MEDS: LORATADINE 10 MG TAB PO SCH (20:41)
[2020-05-21 22:00] VITALS: BP 153/84
[2020-05-22] MEDS: ONDANSETRON 4 MG TAB PO PRN ×4 (00:48→20:38)
[2020-05-22] MEDS: oxyCODONE 5MG TAB PO PRN ×5 (00:49→21:20)
[2020-05-22] MEDS ORDERED: ONDANSETRON 4MG/2ML VIAL IV PRN (02:00)
[2020-05-22 06:00] VITALS: BP 153/82
[2020-05-22] MEDS: CIPROFLOXACIN 500MG TABLET PO SCH (06:00)
[2020-05-22] MEDS: metroNIDAZOLE (FLAGYL) 500MG TABLET PO SCH ×2 (06:00→14:05)
[2020-05-22 07:20] LABS: HEMATOCRIT 34.6 % (36.0-47.0); HEMOGLOBIN 10.6 g/dl (12.0-15.5); MEAN CORPUSCULAR HGB CONC 30.6 g/dl (32.0-36.5); MEAN CORPUSCULAR VOLUME 91.3 fl (80.0-96.0); PLATELET COUNT, AUTOMATED 241 10^3/uL (150-450); RED BLOOD COUNT 3.79 10^6/uL (4.00-5.40); WHITE BLOOD COUNT 9.3 10^3/uL (4.0-10.0)
[2020-05-22] MEDS: SUCRALFATE SUSP 1GM/10ML UD PO SCH ×2 (07:30→12:00)
[2020-05-22 07:33] LABS: BLOOD UREA NITROGEN 10 MG/DL (7-18); CALCIUM LEVEL 8.5 MG/DL (8.8-10.2); CARBON DIOXIDE LEVEL 24 MEQ/L (21-32); CHLORIDE LEVEL 105 MEQ/L (98-107); CREATININE FOR GFR 0.86 MG/DL (0.55-1.30); GLOMERULAR FILTRATION RATE > 60.0 (>45); GLUCOSE, FASTING 105 MG/DL (70-100); POTASSIUM SERUM 4.1 MEQ/L (3.5-5.1); SODIUM LEVEL 135 MEQ/L (136-145)
[2020-05-22] MEDS: AMIODARONE 200 MG TAB (PACERONE) PO SCH (08:40)
[2020-05-22] MEDS: DULoxetine 30 MG CAP (CYMBALTA) PO SCH ×2 (11:04→20:37)
[2020-05-22] MEDS: APIXABAN 5 MG TAB (ELIQUIS) PO SCH ×2 (11:05→20:37)
[2020-05-22] MEDS: PANTOPRAZOLE 40MG TAB (PROTONIX) PO SCH (11:05)
[2020-05-22] MEDS: OLANZapine 2.5MG TABLET PO SCH ×2 (11:05→20:37)
[2020-05-22] MEDS: GABAPENTIN 300 MG CAP PO SCH ×3 (11:05→20:37)
[2020-05-22] MEDS: TOLTERODINE TARTRATE 2 MG LA CAP (DETROL LA) PO SCH (11:06)
[2020-05-22] MEDS: FOLIC ACID 1 MG TAB PO SCH (11:06)
[2020-05-22] MEDS: ACETAMINOPHEN TAB 650MG DOSE (2X325MG) PO SCH ×3 (11:06→20:39)
--- NOTE | 2020-05-22 11:57 | IPNPDOC ---
Text Note Date of Service The patient was seen on 05/22/20. NOTE Patient was seen and examined this morning by me. . She had a rough night and has had multiple episodes of vomiting which were bilious but currently for the last 4 hours. She has not vomited. PHYSICAL EXAMINATION: General: The patient is awake, alert, oriented x3, sitting up in the bed in no apparent distress. Head and Neck Exam: Extraocular muscles intact. Pupils equally round and reactive to light. Mucous membranes are moist. Neck is supple. There is no jugular venous distention (JVD). Cardiovascular: S1 and S2, regular rate. Trace edema of the bilateral lower extremities. Respiratory: No crackles, no rhonchi, no rales. Mildly decreased breath sounds at the left side. Abdomen: Ileostomy present with healthy stoma and a functional ileostomy soft greenish stool in the ileostomy bag. very mild tenderness on palpation on the mid abdomen. No rigidity, no guarding. Bowel sounds are present. Genitourinary: Deferred Musculoskeletal: Clubbing of the fingernails, no cyanosis was noted. PICC line in the right cubital fossa Central Nervous System (HELPER STEEL FABRICATION): No focal deficit. Power is 5/5 in all extremities. Assessment and plan Patient is a 65 year old female with fibromyalgia and chronic pain syndrome, was admitted for SBO and on 03/28/2020 she had subtotal colectomy for bowel ischemia and transferred to ARU. On 04/13/2020, she was transferred to inpatient unit for sepsis with seroma. She underwent drainage of subhepatic collection and wound vac was placed. She completed a course of flagyl and levaquin. Then she had fecal vomitus with worsening abdominal pain. She was found to have high grade SBO with multiple transition points. General surgery took her down for surgery on 05/09/2020. Her wound VAC is still in place and has minimal drainage. She has had multiple episodes of vomiting overnight and for that reason, she has been kept nothing by mouth again and surgery will evaluate her again. 1. SBO likely related to her multiple abdominal surgeries. This morning it was reported that overnight she had multiple episodes of vomiting which were bilious in nature.. She has a well-functioning ileostomy with green stool in it and the abdominis completely benign. We will take surgeries opening and regarding this. No rebound, no guarding no rigidity. No need of acute decompression at this time. Will keep nothing by mouth until surgery evaluates. Nothing by mouth except meds 2. Ileus. Patient on PRN metoclopramide for nausea/vomiting 3. Subhepatic seroma/hematoma. S/p drainage. Completed course of antibiotics. 4. Atrial fibrillation. On amiodarone. Atenolol held due to low blood pressure. Apixaban was restarted on 05/19/20 as the patient has a CHADVASC score more than 2 and on my discussion with her. She understands the risks and the benefits and is agreeable to be restarted on an anticoagulant. 4. HTN. Atenolol was held due to hypotension. Continue to monitor 5. Generalized weakness: Deconditioning. Will need rehab 6. Dyslipidemia: Crestor 7. Chronic pain syndrome: Olanzapine, Duloxetine, Gabapentin DVT ppx: SCD and TEDS. Dispo: Unknown at this time VS,Fishbone, I+O VS, Fishbone, I+O Laboratory Tests 05/22/20 06:32 Vital Signs Date Time Temp Pulse Resp B/P (MAP) Pulse Ox O2 Delivery O2 Flow Rate FiO2 05/22/20 11:46 15 05/22/20 06:45 Room Air 05/22/20 06:00 97.0 103 153/82 (105) 92 I&O- Last 24 Hours up to 6 AM 05/22/20 06:00 Intake Total 1110 ml Output Total 2350 ml Balance -1240 ml MARIPOSA CARRION MD May 22, 2020 11:57
[2020-05-22 14:00] VITALS: BP 128/78
[2020-05-22] MEDS: zolPIDEM TARTRATE 5 MG TAB PO SCH (20:37)
[2020-05-22] MEDS: ROSUVASTATIN 10 MG TAB (CRESTOR) PO SCH (20:38)
[2020-05-22] MEDS: LORATADINE 10 MG TAB PO SCH (20:38)
[2020-05-22 22:00] VITALS: BP 129/78
[2020-05-23 06:00] VITALS: BP 129/76
[2020-05-23] MEDS: ONDANSETRON 4 MG TAB PO PRN ×4 (06:14→23:08)
[2020-05-23] MEDS: oxyCODONE 5MG TAB PO PRN ×4 (06:14→23:08)
[2020-05-23] MEDS: AMIODARONE 200 MG TAB (PACERONE) PO SCH (08:03)
[2020-05-23] MEDS: GABAPENTIN 300 MG CAP PO SCH ×3 (08:03→21:11)
[2020-05-23] MEDS: FOLIC ACID 1 MG TAB PO SCH (08:03)
[2020-05-23] MEDS: DULoxetine 30 MG CAP (CYMBALTA) PO SCH ×2 (08:03→21:11)
[2020-05-23] MEDS: ACETAMINOPHEN TAB 650MG DOSE (2X325MG) PO SCH ×3 (08:04→21:11)
[2020-05-23] MEDS: PANTOPRAZOLE 40MG TAB (PROTONIX) PO SCH (08:04)
[2020-05-23] MEDS: OLANZapine 2.5MG TABLET PO SCH ×2 (08:04→21:12)
[2020-05-23] MEDS: TOLTERODINE TARTRATE 2 MG LA CAP (DETROL LA) PO SCH (08:04)
[2020-05-23] MEDS: APIXABAN 5 MG TAB (ELIQUIS) PO SCH ×2 (08:04→21:11)
--- NOTE | 2020-05-23 10:53 | IPNPDOC ---
Text Note Date of Service The patient was seen on 05/23/20. NOTE Patient was seen and examined this morning by me. . He had a better night and did not have any issues with any vomiting. She was started on a clear liquid diet by surgery which she tolerated well. Her ileostomy is functional PHYSICAL EXAMINATION: General: The patient is awake, alert, oriented x3, sitting up in the bed in no apparent distress. Head and Neck Exam: Extraocular muscles intact. Pupils equally round and reactive to light. Mucous membranes are moist. Neck is supple. There is no jugular venous distention (JVD). Cardiovascular: S1 and S2, regular rate. Trace edema of the bilateral lower extremities. Respiratory: No crackles, no rhonchi, no rales. Mildly decreased breath sounds at the left side. Abdomen: Ileostomy present with healthy stoma and a functional ileostomy soft greenish stool in the ileostomy bag. very mild tenderness on palpation on the mid abdomen. No rigidity, no guarding. Bowel sounds are present. Genitourinary: Deferred Musculoskeletal: Clubbing of the fingernails, no cyanosis was noted. PICC line in the right cubital fossa Central Nervous System (SUPERINTENDENT WAREHOUSE): No focal deficit. Power is 5/5 in all extremities. Assessment and plan Patient is a 65 year old female with fibromyalgia and chronic pain syndrome, was admitted for SBO and on 03/28/2020 she had subtotal colectomy for bowel ischemia and transferred to ARU. On 04/13/2020, she was transferred to inpatient unit for sepsis with seroma. She underwent drainage of subhepatic collection and wound vac was placed. She completed a course of flagyl and levaquin. Then she had fecal vomitus with worsening abdominal pain. She was found to have high grade SBO with multiple transition points. General surgery took her down for surgery on 05/09/2020. Her wound VAC is still in place and has minimal drainage. She has had multiple episodes of vomiting overnight. On 05/22/20 and for that reason, she has been kept nothing by mouth again and surgery evaluated her again and I had a discussion with Dr. Johnson about her. 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 She probably will need to be only on clear liquids or full liquid diet because she is not tolerating soft diet. . She had a good night last night tolerated the clear liquids abdominis completely benign. Currently, her phone VAC is supposed to be taken off today , and if she continues to improve and tolerate the diet. She potentially could be discharged this weekend if cleared by surgery. Medically, she is optimized already 1. SBO likely related to her multiple abdominal surgeries. This morning. She reports of tolerated the clear liquid diet. She has a well-functioning ileostomy with green stool in it and the abdomen is completely benign. Continue clear liquid diet 2. Ileus. Patient on PRN metoclopramide for nausea/vomiting 3. Subhepatic seroma/hematoma. S/p drainage. Completed course of antibiotics. 4. Atrial fibrillation. On oral amiodarone. Atenolol held as she drops her blood pressure on it. Apixaban was restarted on 05/19/20 as the patient has a CHADVASC score more than 2 and on my discussion with her. She understands the risks and the benefits and is agreeable to be restarted on an anticoagulant. 4. HTN. Atenolol was held due to hypotension. Continue to monitor 5. Generalized weakness: Deconditioning. Will need rehab 6. Dyslipidemia: Crestor 7. Chronic pain syndrome: Olanzapine, Duloxetine, Gabapentin DVT ppx: SCD and TEDS. Dispo: If she continues to be stable on clear liquid diet in the next 24-48 hours if cleared by surgery. She can go home. She does not want to go to any rehabilitation and her is involved in her care. VS,Fishbone, I+O VS, Fishbone, I+O Vital Signs Date Time Temp Pulse Resp B/P (MAP) Pulse Ox O2 Delivery O2 Flow Rate FiO2 05/23/20 06:44 17 05/23/20 06:00 97.0 96 129/76 (93) 94 Room Air I&O- Last 24 Hours up to 6 AM 05/23/20 05:59 Intake Total 950 ml Output Total 600 ml Balance 350 ml MARIPOSA CARRION MD May 23, 2020 10:53
[2020-05-23 14:00] VITALS: BP 126/76
[2020-05-23] MEDS: ROSUVASTATIN 10 MG TAB (CRESTOR) PO SCH (21:12)
[2020-05-23] MEDS: LORATADINE 10 MG TAB PO SCH (21:12)
[2020-05-23] MEDS: zolPIDEM TARTRATE 5 MG TAB PO SCH (21:12)
[2020-05-23 22:00] VITALS: BP 126/75
[2020-05-24 06:00] VITALS: BP 126/76
[2020-05-24 07:27] LABS: HEMATOCRIT 35.4 % (36.0-47.0); MEAN CORPUSCULAR HEMOGLOBIN 28.6 pg (27.0-33.0); MEAN CORPUSCULAR HGB CONC 31.1 g/dl (32.0-36.5); MEAN CORPUSCULAR VOLUME 91.9 fl (80.0-96.0); PLATELET COUNT, AUTOMATED 246 10^3/uL (150-450); RED BLOOD COUNT 3.85 10^6/uL (4.00-5.40); WHITE BLOOD COUNT 9.7 10^3/uL (4.0-10.0)
[2020-05-24 07:48] LABS: BLOOD UREA NITROGEN 7 MG/DL (7-18); CALCIUM LEVEL 8.8 MG/DL (8.8-10.2); CARBON DIOXIDE LEVEL 23 MEQ/L (21-32); CHLORIDE LEVEL 101 MEQ/L (98-107); CREATININE FOR GFR 0.94 MG/DL (0.55-1.30); GLOMERULAR FILTRATION RATE > 60.0 (>45); GLUCOSE, FASTING 81 MG/DL (70-100); MAGNESIUM LEVEL 1.7 MG/DL (1.8-2.4); SODIUM LEVEL 130 MEQ/L (136-145)
[2020-05-24] MEDS: ACETAMINOPHEN TAB 650MG DOSE (2X325MG) PO SCH ×3 (08:31→20:05)
[2020-05-24] MEDS: ONDANSETRON 4 MG TAB PO PRN ×4 (08:31→21:20)
[2020-05-24] MEDS: oxyCODONE 5MG TAB PO PRN ×4 (08:32→21:20)
[2020-05-24] MEDS: OLANZapine 2.5MG TABLET PO SCH ×2 (09:06→20:05)
[2020-05-24] MEDS: GABAPENTIN 300 MG CAP PO SCH ×3 (09:06→20:04)
[2020-05-24] MEDS: PANTOPRAZOLE 40MG TAB (PROTONIX) PO SCH (09:06)
[2020-05-24] MEDS: AMIODARONE 200 MG TAB (PACERONE) PO SCH (09:06)
[2020-05-24] MEDS: TOLTERODINE TARTRATE 2 MG LA CAP (DETROL LA) PO SCH (09:06)
[2020-05-24] MEDS: FOLIC ACID 1 MG TAB PO SCH (09:06)
[2020-05-24] MEDS: DULoxetine 30 MG CAP (CYMBALTA) PO SCH ×2 (09:06→20:04)
[2020-05-24] MEDS: APIXABAN 5 MG TAB (ELIQUIS) PO SCH ×2 (09:07→20:04)
--- NOTE | 2020-05-24 09:10 | IPNPDOC ---
Text Note Date of Service The patient was seen on 05/24/20. NOTE No acute events overnight. She is tolerating full liquid diet without any nausea or emesis. 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 Jeramie Byrd DO VS,[place], I+O VS, Fishbone, I+O Laboratory Tests 05/24/20 06:53 Vital Signs Date Time Temp Pulse Resp B/P (MAP) Pulse Ox O2 Delivery O2 Flow Rate FiO2 05/24/20 08:32 20 05/24/20 06:00 98.2 98 126/76 (93) 96 Room Air I&O- Last 24 Hours up to 6 AM 05/24/20 06:00 Intake Total 2220 ml Output Total 1525 ml Balance 695 ml ORXANN BYRD DO May 24, 2020 09:10
--- NOTE | 2020-05-24 11:31 | IPNPDOC ---
Text Note Date of Service The patient was seen on 05/24/20. NOTE Subjective: Patient is a 65-year-old female with a PMHx of Moderate Aortic stenosis (Follows with Dr. Schulte), Fibromyalgia, Chronic pain syndrome who was originally admitted on 03/28/2020 for abdominal pain, found to be secondary to a small bowel obstruction with ischemia. Patient underwent urgent subtotal colectomy with ostomy creation. . She had remained inpatient and was eventually transitioned to acute rehabilitation unit on 04/09/2020. On 04/13/2020 she was transferred to inpatient floor again for suspected sepsis 2/2 seroma / fluid collection and questionable pneumonia. Subhepatic collection was drained. Wound vac continued for her abdominal incision. Patient had completed a course of Levaquin and Flagyl. Patient was again transitioned back to the acute rehabilitation unit on 04/29/2020. On 05/03/2020 patient experienced fecal vomitus with worsening abdominal pain. Was found to have a high-grade small bowel obstruction with multiple transition points. General surgery was consulted and she had failed conservative measures and was ultimately taken down for surgery on for revision of her ostomy on 05/09/2020. Patient continued to experience vomiting and was eventually taken down again on 05/12/2020 for laparotomy with lysis of adhesions and revision of ileostomy. Patient has remained on a wound VAC since that point. Her diet has been slowly advanced by surgery Patient was seen and examined at the bedside. Currently patient reports that she does not experience any nausea, vomiting, any significant worsening of her abdominal pain. Reports her ostomy output has been adequate. Denies any urinary discomfort. Denies any chest pain, shortness of breath or palpitations. Objective: Vitals (See below) General: Sitting up in bed, appears to be comfortable, AAOx3 HEENT: NC, AT CVS: +S1S2 Lungs: Fair air entry b/l Abdomen: Soft, nondistended. Mild tenderness, positive ostomy at right lower quadrant Extremities: No evidence of edema, - Calf tenderness Assessment and plan: s/p Nausea and Vomiting - likely SBO - Clinically patient has had significant improvement of symptoms and resolution of nausea and vomiting - Abdomen without any significant tenderness; ostomy continues to reveal adequate output - No leukocytosis - Diet advanced as per surgery Hyponatremia - suspect 2/2 hypotonic etiology - appears euvolemic - Will check Urine / Serum Osmolality - Will check urine electrolytes - Will place fluid restrictions for now Hypomagnesemia - Will supplement via IV Generalized weakness - likely 2/2 deconditioning - Has progressed with physical therapy s/p Ileus Subhepatic seroma/hematoma - Area of fluid collection has been drained via interventional radiology - Patient has completed course of antibiotics Atrial fibrillation - Continue with rate and rhythm control with amiodarone - Discussions about risks and benefits of anticoagulation were had with the patient on 05/19 - Continue with full anticoagulation with Eliquis Moderate Aortic stenosis - Follows with Dr. Schulte HTN - Currently patient's blood pressure appears to be normotensive - s/p atenolol DLP - c/w Rosuvastatin Fibromyalgia / Chronic pain syndrome - c/w Olanzapine, Duloxetine, Gabapentin GERD - c/w Protonix DVT prophylaxis - c/w TEDs/Sequentials Durable medical equipment requirements: Wheelchair 1) The beneficiary has a mobility limitation that significantly impairs her ability to participate in one or more mobility related activities of daily living (MRADL) such as toileting, feeding dressing, grooming and bathing in customary locations in the home. A mobility limitation is one that: a) prevents her from accomplishing an MRADL entirely b) places the beneficiary at reasonably determined heightened risk of morbidity or mortality secondary to the attempts to perform an MRADL c) prevents the beneficiary from completing an MRADL within a reasonable time frame 2) The beneficiary's mobility limitation cannot be sufficiently resolved by the use of an appropriate fitted cane or walker 3) Her home provides adequate access between rooms, maneuvering space and surface for use of the manual wheelchair that is provided 4) Use of manual wheelchair will significantly improve the beneficiary's ability to participate in MRADLs and she will use it on a regular basis in the home 5) The beneficiary has not expressed unwillingness to use the manual wheelchair that is provided in the home. 6) She has a caregiver who is available, willing and able to provide assistance with the wheelchair Disposition: - Diet will continue to be advanced as per surgery - Patient has been cleared by physical therapy for discharge home with services - Patient does not want to go to rehabilitation - Anticipate DC home within 24-48 hours VS,Fishbone, I+O VS, Fishbone, I+O Laboratory Tests 05/24/20 06:53 Vital Signs Date Time Temp Pulse Resp B/P (MAP) Pulse Ox O2 Delivery O2 Flow Rate FiO2 05/24/20 08:32 20 05/24/20 06:00 98.2 98 126/76 (93) 96 Room Air I&O- Last 24 Hours up to 6 AM 05/24/20 06:00 Intake Total 2220 ml Output Total 1525 ml Balance 695 ml GERRY ARRIOLA MD May 24, 2020 11:31
[2020-05-24] MEDS ORDERED: MAG SULF 1GM/100ML (MAG RUN) 1 GM in IV 1 EA IV ONE (12:00)
[2020-05-24 14:00] VITALS: BP 131/68
[2020-05-24 14:01] LABS: OSMOLALITY URINE 63 MOSM/KG (500-800)
[2020-05-24 14:13] LABS: CREATININE,RANDOM URINE < 13.0 MG/DL; SODIUM,RANDOM URINE < 10 MEQ/L
[2020-05-24 15:59] LABS: BLOOD UREA NITROGEN 6 MG/DL (7-18); CALCIUM LEVEL 8.3 MG/DL (8.8-10.2); CARBON DIOXIDE LEVEL 22 MEQ/L (21-32); CHLORIDE LEVEL 98 MEQ/L (98-107); CREATININE FOR GFR 0.92 MG/DL (0.55-1.30); GLOMERULAR FILTRATION RATE > 60.0 (>45); GLUCOSE, FASTING 91 MG/DL (70-100); POTASSIUM SERUM 4.3 MEQ/L (3.5-5.1); SODIUM LEVEL 127 MEQ/L (136-145)
[2020-05-24 16:00] LABS: OSMOLALITY SERUM 260 MOSM/KG (280-301)
[2020-05-24] MEDS ORDERED: NS 1,000 ML IV SCH ×2 (16:30→19:30)
[2020-05-24 19:05] LABS: BLOOD UREA NITROGEN 7 MG/DL (7-18); CALCIUM LEVEL 8.2 MG/DL (8.8-10.2); CARBON DIOXIDE LEVEL 22 MEQ/L (21-32); CHLORIDE LEVEL 97 MEQ/L (98-107); CREATININE FOR GFR 0.88 MG/DL (0.55-1.30); GLOMERULAR FILTRATION RATE > 60.0 (>45); GLUCOSE, FASTING 87 MG/DL (70-100); POTASSIUM SERUM 4.2 MEQ/L (3.5-5.1); SODIUM LEVEL 126 MEQ/L (136-145)
[2020-05-24] MEDS ORDERED: SODIUM CHLORIDE 0.9% 1000ML IV ONE (19:30)
[2020-05-24] MEDS: ROSUVASTATIN 10 MG TAB (CRESTOR) PO SCH (20:05)
[2020-05-24] MEDS: LORATADINE 10 MG TAB PO SCH (20:05)
[2020-05-24] MEDS: zolPIDEM TARTRATE 5 MG TAB PO SCH (20:05)
[2020-05-24 21:32] LABS: BLOOD UREA NITROGEN 6 MG/DL (7-18); CALCIUM LEVEL 8.3 MG/DL (8.8-10.2); CARBON DIOXIDE LEVEL 23 MEQ/L (21-32); CHLORIDE LEVEL 103 MEQ/L (98-107); CREATININE FOR GFR 0.92 MG/DL (0.55-1.30); GLOMERULAR FILTRATION RATE > 60.0 (>45); GLUCOSE, FASTING 88 MG/DL (70-100); POTASSIUM SERUM 3.7 MEQ/L (3.5-5.1); SODIUM LEVEL 130 MEQ/L (136-145)
[2020-05-24 22:00] VITALS: BP 142/90
[2020-05-25 01:46] LABS: BLOOD UREA NITROGEN 6 MG/DL (7-18); CARBON DIOXIDE LEVEL 21 MEQ/L (21-32); CHLORIDE LEVEL 105 MEQ/L (98-107); CREATININE FOR GFR 0.98 MG/DL (0.55-1.30); GLOMERULAR FILTRATION RATE > 60.0 (>45); GLUCOSE, FASTING 104 MG/DL (70-100); POTASSIUM SERUM 3.8 MEQ/L (3.5-5.1); SODIUM LEVEL 132 MEQ/L (136-145)
[2020-05-25] MEDS: ONDANSETRON 4 MG TAB PO PRN ×4 (03:45→22:20)
[2020-05-25] MEDS: oxyCODONE 5MG TAB PO PRN ×4 (03:45→22:18)
[2020-05-25 06:00] VITALS: BP 115/76
[2020-05-25 07:50] LABS: BASO # 0.1 10^3/uL (0.0-0.2); BASO % 0.7 % (0.0-1.0); EOS # 0.7 10^3/uL (0.0-0.5); HEMATOCRIT 30.7 % (36.0-47.0); HEMOGLOBIN 9.5 g/dl (12.0-15.5); LYMPH # 1.5 10^3/uL (1.5-5.0); LYMPH % 20.6 % (24.0-44.0); MEAN CORPUSCULAR HEMOGLOBIN 28.4 pg (27.0-33.0); MEAN CORPUSCULAR HGB CONC 30.9 g/dl (32.0-36.5); MEAN CORPUSCULAR VOLUME 91.6 fl (80.0-96.0); MONO # 0.9 10^3/uL (0.0-0.8); MONO % 11.8 % (0.0-5.0); NEUTROPHILS # 4.2 10^3/uL (1.5-8.5); NEUTROPHILS % 57.1 % (36.0-66.0); PLATELET COUNT, AUTOMATED 225 10^3/uL (150-450); RED BLOOD COUNT 3.35 10^6/uL (4.00-5.40); WHITE BLOOD COUNT 7.4 10^3/uL (4.0-10.0)
[2020-05-25 08:15] LABS: BLOOD UREA NITROGEN 6 MG/DL (7-18); CALCIUM LEVEL 7.4 MG/DL (8.8-10.2); CARBON DIOXIDE LEVEL 22 MEQ/L (21-32); CHLORIDE LEVEL 110 MEQ/L (98-107); CREATININE FOR GFR 0.93 MG/DL (0.55-1.30); GLOMERULAR FILTRATION RATE > 60.0 (>45); GLUCOSE, FASTING 88 MG/DL (70-100); MAGNESIUM LEVEL 1.8 MG/DL (1.8-2.4); POTASSIUM SERUM 4.3 MEQ/L (3.5-5.1); SODIUM LEVEL 138 MEQ/L (136-145)
--- NOTE | 2020-05-25 08:32 | IPNPDOC ---
Text Note Date of Service The patient was seen on 05/25/20. NOTE Subjective: Patient is a 65-year-old female with a PMHx of Moderate Aortic stenosis (Follows with Dr. Schulte), Fibromyalgia, Chronic pain syndrome who was originally admitted on 03/28/2020 for abdominal pain, found to be secondary to a small bowel obstruction with ischemia. Patient underwent urgent subtotal colectomy with ostomy creation. . She had remained inpatient and was eventually transitioned to acute rehabilitation unit on 04/09/2020. On 04/13/2020 she was transferred to inpatient floor again for suspected sepsis 2/2 seroma / fluid collection and questionable pneumonia. Subhepatic collection was drained. Wound vac continued for her abdominal incision. Patient had completed a course of Levaquin and Flagyl. Patient was again transitioned back to the acute rehabilitation unit on 04/29/2020. On 05/03/2020 patient experienced fecal vomitus with worsening abdominal pain. Was found to have a high-grade small bowel obstruction with multiple transition points. General surgery was consulted and she had failed conservative measures and was ultimately taken down for surgery on for revision of her ostomy on 05/09/2020. Patient continued to experience vomiting and was eventually taken down again on 05/12/2020 for laparotomy with lysis of adhesions and revision of ileostomy. Patient has remained on a wound VAC since that point. Her diet has been slowly advanced by surgery Patient was seen and examined at the bedside. Patient reports that she has had an uneventful evening denies any chest pain, shortness breath or palpitations. Denies any nausea, vomiting. Reports no significant abdominal tenderness and reports that her output from her ostomy site has continued to remain liquid. Objective: Vitals (See below) General: Patient is awake, alert and oriented 3, sitting up in bed. She reports that she does not like her pured breakfast HEENT: NC, AT CVS: +S1S2 Lungs: Air entry bilaterally is fair without any auscultated rhonchi, crackles or wheezing Abdomen: Abdomen remains soft. Mild tenderness noted diffusely central abdominal incision noted with wound fact in place, right-sided ostomy present Extremities: Lower extremities are free of pitting edema, - Calf tenderness Assessment and plan: s/p Nausea and Vomiting - likely SBO - Clinically patient has had significant improvement of symptoms and resolution of nausea and vomiting - Abdomen without any significant tenderness; ostomy continues to reveal adequate output - No leukocytosis - Diet advanced as per surgery s/p Hyponatremia - suspect 2/2 hypotonic etiology - likely 2/2 dehydration 2/2 increased ostomy output - Patient's likely severely dehydrated - Will DC fluids - Trend sodium to ensure stability - May require stool bulking agent to prevent additional fluid loss s/p Hypomagnesemia Generalized weakness - likely 2/2 deconditioning - Has progressed with physical therapy s/p Ileus Subhepatic seroma/hematoma - Area of fluid collection has been drained via interventional radiology - Patient has completed course of antibiotics Atrial fibrillation - Continue with rate and rhythm control with amiodarone - Discussions about risks and benefits of anticoagulation were had with the patient on 05/19 - Continue with full anticoagulation with Eliquis Moderate Aortic stenosis - Follows with Dr. Schulte HTN - Currently patient's blood pressure appears to be normotensive - s/p atenolol DLP - c/w Rosuvastatin Fibromyalgia / Chronic pain syndrome - c/w Olanzapine, Duloxetine, Gabapentin GERD - c/w Protonix DVT prophylaxis - c/w TEDs/Sequentials Durable medical equipment requirements: Wheelchair 1) The beneficiary has a mobility limitation that significantly impairs her ability to participate in one or more mobility related activities of daily living (MRADL) such as toileting, feeding dressing, grooming and bathing in customary locations in the home. A mobility limitation is one that: a) prevents her from accomplishing an MRADL entirely b) places the beneficiary at reasonably determined heightened risk of morbidity or mortality secondary to the attempts to perform an MRADL c) prevents the beneficiary from completing an MRADL within a reasonable time frame 2) The beneficiary's mobility limitation cannot be sufficiently resolved by the use of an appropriate fitted cane or walker 3) Her home provides adequate access between rooms, maneuvering space and surface for use of the manual wheelchair that is provided 4) Use of manual wheelchair will significantly improve the beneficiary's ability to participate in MRADLs and she will use it on a regular basis in the home 5) The beneficiary has not expressed unwillingness to use the manual wheelchair that is provided in the home. 6) She has a caregiver who is available, willing and able to provide assistance with the wheelchair Disposition: - Diet has been advanced to pured by surgery - Patient has been cleared by physical therapy for discharge home with services - Patient does not want to go to rehabilitation - Will continue to follow sodium trend anticipate discharge within the next 24 hours VSFranklin, I+O VSFranklin I+O Laboratory Tests 05/24/20 15:24 05/24/20 18:17 05/24/20 20:54 05/25/20 01:08 05/25/20 07:40 Vital Signs Date Time Temp Pulse Resp B/P (MAP) Pulse Ox O2 Delivery O2 Flow Rate FiO2 05/25/20 06:00 98.2 98 18 115/76 (89) 97 Room Air I&O- Last 24 Hours up to 6 AM0 05/25/20 06:00 Intake Total 1945 ml Output Total 1500 ml Balance 445 ml GERRY ARRIOLA MD May 25, 2020 08:32
[2020-05-25] MEDS: TOLTERODINE TARTRATE 2 MG LA CAP (DETROL LA) PO SCH (08:39)
[2020-05-25] MEDS: APIXABAN 5 MG TAB (ELIQUIS) PO SCH ×2 (08:39→22:17)
[2020-05-25] MEDS: FOLIC ACID 1 MG TAB PO SCH (08:39)
[2020-05-25] MEDS: ACETAMINOPHEN TAB 650MG DOSE (2X325MG) PO SCH ×3 (08:40→22:17)
[2020-05-25] MEDS: GABAPENTIN 300 MG CAP PO SCH ×3 (08:40→22:17)
[2020-05-25] MEDS: OLANZapine 2.5MG TABLET PO SCH ×2 (08:40→22:20)
[2020-05-25] MEDS: PANTOPRAZOLE 40MG TAB (PROTONIX) PO SCH (08:40)
[2020-05-25] MEDS: DULoxetine 30 MG CAP (CYMBALTA) PO SCH ×2 (08:40→22:17)
[2020-05-25] MEDS: AMIODARONE 200 MG TAB (PACERONE) PO SCH (08:40)
[2020-05-25] MEDS ORDERED: CHOLESTYRAMINE 4 GM PWD PKT PO SCH ×2 (12:00→12:18)
[2020-05-25] MEDS: CHOLESTYRAMINE 4 GM PWD PKT PO SCH ×2 (12:26→18:14)
[2020-05-25 12:33] LABS: BLOOD UREA NITROGEN 6 MG/DL (7-18); CALCIUM LEVEL 7.8 MG/DL (8.8-10.2); CARBON DIOXIDE LEVEL 20 MEQ/L (21-32); CHLORIDE LEVEL 110 MEQ/L (98-107); CREATININE FOR GFR 0.87 MG/DL (0.55-1.30); GLOMERULAR FILTRATION RATE > 60.0 (>45); GLUCOSE, FASTING 86 MG/DL (70-100); POTASSIUM SERUM 4.8 MEQ/L (3.5-5.1); SODIUM LEVEL 137 MEQ/L (136-145)
--- NOTE | 2020-05-25 13:35 | RO ---
DATE OF OPERATION: 05/09/2020 PREOPERATIVE DIAGNOSIS: Partially obstructing stenotic retracted ileostomy. POSTOPERATIVE DIAGNOSIS: Partially obstructing stenotic retracted ileostomy with extensive abdominal adhesions. PROCEDURE: Excision of scarred and retracted ileostomy, laparotomy with lysis of adhesions and creation of a new right upper quadrant ileostomy. SURGEON: Greg Johnson MD NIGHT STOCKER: ANESTHESIA: General. INDICATIONS FOR THE PROCEDURE: The patient is a 65-year-old woman who had undergone a total abdominal colectomy about 6 weeks ago for ischemic bowel. She had an ileostomy created in the right lower quadrant. She was noted to have a retracted and stenotic ileostomy, which was becoming obstructed. She is now for repair. DESCRIPTION OF OPERATIVE PROCEDURE: The patient was brought to the operating room and placed on the table in a supine position. She was placed under general endotracheal anesthesia. A Dudley catheter was inserted. The patient's wound V.A.C dressing and ileostomy appliance were all removed. The patient's abdomen was then prepped with a Betadine prep and draped sterilely. Inspection of the ileostomy showed an open skin wound with some granulation tissue and nodularity deeper, but there was no mucosa identified. The midline wound was granulating well and consisted of 2 largely separate islands of open wound by a healed skin bridge at the umbilicus. I made an elliptical incision around the ileostomy site in the right lower quadrant. This was oriented obliquely. The incision was deep into the subcutaneous tissues largely using electrocautery. I stayed out of the open wound working outside of this through the subcutaneous tissues and down to the fascia. At the level of the fascia, there was clearly some significant scarring and a narrowed segment of bowel that was quite scarred was identified at the level the level of the fascia. The fascia was incised circumferentially and then the anterior sheath was opened superiorly and inferiorly, longitudinally. The underlying rectus muscle fibers were off of the bowel and the posterior fascia and peritoneum were opened as well. The bowel was clearly quite scarred down to just at and slightly below the level of the fascia. Beyond this, the small bowel appeared viable. Initially, some of the adhesions right beneath the fascia were broken apart by blunt finger dissection. It was necessary to extend the fascial incisions somewhat during the course of the dissection to allow placement of retractors so that the bowel could be seen and a lysis of adhesions performed. This proceeded to free the distal small bowel over a distance of perhaps 8 to 10 inches. During the course of dissection, I elected to cut off the stenosed portion of the bowel and this was accomplished by placing a TX-60 G stapler across the end of the ileum and cutting off the distal portion. This was sent as a specimen for permanent pathology. Because of the amount of dissection required to free the bowel, I elected to move the ostomy superiorly into the right upper quadrant. I thought this would also create a more stable location and avoid a skin fold near her current site. After freeing the bowel adequately, the ostomy site was created. A roughly 2 to 2.5 cm disk of skin was excised. The subcutaneous tissues were opened in cruciate fashion with the cautery. The anterior rectus sheath was opened longitudinally with the cautery. The muscle fibers were spread and the posterior sheath was also opened longitudinally with cautery. Internal dissection had revealed that the inferior edge of the right lobe of the liver was just above the level I selected for the ostomy site. This was densely scarred to the abdominal wall because of the previous formation of an abscess of this area. A trial showed that the small bowel could be passed through the opening, but it required extension of the fascial incision slightly. The wounds were expected for hemostasis and hemostasis was found to be excellent. The very tip of the staple line of the small bowel looked slightly dusky, but otherwise the vascularity appeared excellent. The abdominal wounds and the right side of the abdomen that had been opened were irrigated and inspected and hemostasis was insured. The small bowel was then delivered through the ostomy site. This nicely came through far enough to create length for an eversion and maturation of the stoma. Two 3-0 Vicryls were used to tack the edge of the skin to the small bowel to prevent retraction. The right lower quadrant wound was then closed. The inner fascia was closed with a running suture of 0 Vicryl. Several 0 chromic sutures were placed to loosely approximate the rectus muscle in the lower portion of the wound where these were . The anterior fascia was then closed in his oblique orientation with interrupted simple suture of #1 Vicryl. One or two sutures were placed in the subcutaneous tissues to close the space slightly. The skin incision was then closed with skin marshall. The midline and right lower quadrant wounds were then covered with a towel and I proceeded with the maturation of the ileostomy. The antimesenteric portion of the staple line was excised from the end of the bowel and a short longitudinal incision was carried down the antimesenteric boarder of the small bowel to open this further. Four everting corner sutures of 3-0 Vicryl were then placed. Multiple additional sutures were then placed using 3-0 and 4-0 Vicryl to complete the suturing of the bowel wall to the skin edge. There was some mild edema beginning to form of the stoma. This remained pink and clearly viable. An ostomy appliance was then placed over the stoma. The wound V.A.C dressing was reapplied to the midline wound. A dry sterile dressing was placed over the right lower quadrant incision. The patient tolerated the procedure well without apparent complications. I elected to continue the Dudley catheter at this point. She was then awakened in the operating, extubated and moved to the recovery room in stable condition. ED
--- NOTE | 2020-05-25 13:39 | IPN ---
DATE: 05/14/2020 SUBJECTIVE: The patient overall was nauseated overnight. Events of yesterday have been noted, and she had some bloody output out of her ostomy, however really nothing overnight and into this morning, her hematocrit has not dropped significantly, however her white count is bumped a little bit this morning at 14.5. She is complaining of more nausea and her NG tube is not functioning well. However, when I walked in this morning her NG tube was out to 40 cm, suggesting it was only in the esophagus at most. Her urine output has still been good overnight, and earlier this morning when I first saw her she looked rather frail and stated that she did not sleep well, however after her NG tube was inserted the further and advanced and her abdomen became distended, later on in the afternoon she definitely perked up, definitely had more color and much more interactive and stated that she had much less pain, much less nausea and overall feeling better than she was earlier in the morning. Her abdomen is mildly distended, tender to light palpation throughout which is her typical exam. With distraction I am not finding significant tenderness, however. And she is a very difficult exam given her almost reflex nature to discomfort. IMPRESSION AND PLAN: The patient has an ileus postoperative. At this point we will keep her n.p.o. IV fluids. She does have a little bit of stool of out of her ostomy. It is clear, bilious. The ostomy is edematous, but it is pink, it is viable and no significant bloody discharge. Her NG tube output is bilious this afternoon and does not have any blood in it. Thus I feel that the bleeding probably was secondary to Eliquis and we will keep off the significant anticoagulation as she was on before, but continue with n.p.o. and IV fluids, TPN for now. If her white count is elevated tomorrow morning and she is not continuing to improve, then we will order a CT of the abdomen and pelvis for further evaluation. Right now the previous ostomy site on the right lower quadrant is clean. There is no edema, there is erythema. The midline wound VAC was changed today and was granulating in well without any evidence of pockets or drainage problems or evidence of healing issues. ED
--- NOTE | 2020-05-25 13:41 | IPN ---
DATE: 05/15/2020 SUBJECTIVE: The patient overnight has been actually feeling better, but her major complaint at this time is still some crampy abdominal pain. She has a white count that has bumped up a little bit. Essentially what correlated with her white count bumping up was also her Dudley coming out at the same time, and we got a CAT scan this morning that showed that her bladder is distended with an air fluid level, and I think she had some urinary retention that is contributing to this. Otherwise no other significant abnormalities or abscesses appreciated. It appears that she has more an ileus when we look at her x-rays than a true bowel obstruction per se. IMPRESSION AND PLAN: We will keep her n.p.o. on J-tube for right now, keep IV fluids, place Dudley at this time. We will see if that makes a difference with the white count and check a urinalysis and determine our next course of action depending on this. MTDD
--- NOTE | 2020-05-25 13:44 | REP ---
ABDOMINAL RADIOGRAPH CLINICAL: Small bowel obstruction. TECHNIQUE: Single supine view of the abdomen and pelvis. FINDINGS: Evidence for bowel obstruction. Ostomy overlies the right hemipelvis. No obvious free air. Skeletal structures are intact. IMPRESSION: Findings consistent with small bowel obstruction. MTDD
--- NOTE | 2020-05-25 13:46 | REP ---
PORTABLE ABDOMINAL RADIOGRAPHS: 05/05/20 AT 1:39PM CLINICAL: Follow-up small bowel obstruction. TECHNIQUE: Two supine portable views of the abdomen and pelvis. COMPARISON: 05/04/20 FINDINGS: There is evidence for a prior colostomy overlying the right lower abdomen. Continued evidence for small bowel obstruction is appreciated which may be slightly improved as compared to prior examination. The current examination demonstrates a nasogastric tube in satisfactory position. Post surgical changes are appreciated. Skeletal structures demonstrate age related changes. IMPRESSION: Continued evidence for small bowel obstruction although mildly improved. MTDD
--- NOTE | 2020-05-25 13:48 | REP ---
PICC LINE INSERTION WITH KARISHMA The procedure was performed under the direct supervision of Dr. Lowe. The risks and benefits of the procedure were explained to the patient and informed consent was obtained. The right brachial vein was localized using ultrasound guidance. The skin was prepped and draped in a sterile fashion. 1% Lidocaine was used as a local anesthetic. Using ultrasound guidance, the brachial vein was cannulated and a 0.018 guidewire was inserted and advanced to the SVC using fluoroscopic guidance. The needle was removed and a 5.5 Iranian dilator and Peel-Away sheath was inserted over the guidewire. A 5.5 Iranian dual-lumen catheter was cut to a length of 35 cm. The dilator was removed and the catheter was inserted over the guidewire with the tip ending in the SVC. The Peel-Away sheath was removed, and the catheter was flushed with heparinized saline as per hospital protocol. The catheter was affixed to the skin and a sterile dressing was applied. The patient tolerated the procedure well and there were no immediate complications. 0.1 minutes of fluoroscopy time was utilized for this procedure. ED
--- NOTE | 2020-05-25 13:51 | REP ---
SMALL BOWEL FOLLOW-THROUGH The procedure was performed under the direct supervision of Dr. Lowe. The images were reviewed with Dr. Lowe. The cross roller film shows no organomegaly or pathological masses. The intestinal gas pattern is nonspecific. There are multiple surgical clips and bowel sutures noted throughout the abdomen. There is a nasogastric (NG) tube in place. There is an ileostomy on the right. There is a wound VAC overlying the abdomen. Liquid barium was administered and the barium column was followed through the small bowel to the level of the terminal ileum. Small bowel transit time was approximately 160 minutes. During fluoroscopy gentle palpation shows all loops are freely movable and pliable. There are no fixed or angulated loops. The small bowel mucosal pattern is normal in course and caliber. At the ostomy site, there is a question of mild diffuse narrowing. There is contrast seen emptying into the bag. IMPRESSION: There is a question of mild diffuse narrowing at the ostomy. There is contrast seen emptying into the bag. The remainder of the bowel was unremarkable. 1.4minutes of fluoroscopy time was utilized for this procedure. ED
--- NOTE | 2020-05-25 13:54 | REP ---
ABDOMINAL RADIOGRAPH: 05/08/20 COMPARISON: 05/05/20 CLINICAL: Follow-up contrast passage. Prior small bowel obstruction. TECHNIQUE: Single supine view of the abdomen and pelvis. FINDINGS: Post-surgical changes are appreciated and previously noted small bowel obstruction appears to resolved. Intraluminal contrast material is now identified passing via the colostomy in the right lower abdomen. IMPRESSION: Previously noted small bowel obstruction has resolved and contrast is identified passing through the ostomy. MTDD
--- NOTE | 2020-05-25 13:56 | REP ---
KUB: 2-VIEWS HISTORY: Question ileus. COMPARISON: KUB study 05/08/2020. FINDINGS: There is a right lower abdominal enterostomy with adjacent surgical clips and there are sutures in the mid abdomen and pelvis. There is air and fluid distention of the stomach moderate in degree. This is new from the prior study of 05/08/2020. No large or small bowel dilation is seen. There is a small air bubble centrally in the pelvic, which may be rectal or conceivably within the urinary bladder. Psoas margins are symmetric. Flank stripes are intact. IMPRESSION: Gastric distention. Postsurgical changes. MTDD
--- NOTE | 2020-05-25 13:58 | REP ---
ABDOMINAL RADIOGRAPHS: 05/14/20 CLINICAL: Leukocytosis Ileus. TECHNIQUE: Frontal view of the chest, supine view of the abdomen and pelvis and cross table lateral views of the abdomen and pelvis. FINDINGS: Frontal view of the chest demonstrates a nasogastric tube terminating in the mid esophagus and warranting advancement. A right PICC line is identified with tip in the SVC. Linear atelectasis and suspected small pleural effusion at the right lung base noted. Images of the abdomen and pelvis demonstrate evidence for prior colostomy with a possible nasogastric tube extending through the ostomy and correlation is recommended. Surgical clips are identified along with suture material throughout the abdomen. The bowel gas pattern raises the possibility of ileus without definite obstruction. No obvious free air. Skeletal structures are intact. IMPRESSION: 1. Nasogastric tube identified terminating in the mid esophagus and requiring repositioning. 2. Right lower lobe linear atelectasis and right basilar opacity raising the possibility of underlying consolidation or effusion. 3. The bowel gas pattern is nonspecific although possible ileus and most likely early obstruction cannot be excluded. Follow up serial radiographs may be warranted. MTDD
[2020-05-25 14:00] VITALS: BP 124/84
[2020-05-25 18:45] LABS: BLOOD UREA NITROGEN 5 MG/DL (7-18); CALCIUM LEVEL 8.1 MG/DL (8.8-10.2); CARBON DIOXIDE LEVEL 21 MEQ/L (21-32); CHLORIDE LEVEL 110 MEQ/L (98-107); CREATININE FOR GFR 0.88 MG/DL (0.55-1.30); GLOMERULAR FILTRATION RATE > 60.0 (>45); GLUCOSE, FASTING 90 MG/DL (70-100); POTASSIUM SERUM 4.5 MEQ/L (3.5-5.1); SODIUM LEVEL 136 MEQ/L (136-145)
[2020-05-25 22:00] VITALS: BP 125/81
[2020-05-25] MEDS: LORATADINE 10 MG TAB PO SCH (22:17)
[2020-05-25] MEDS: ROSUVASTATIN 10 MG TAB (CRESTOR) PO SCH (22:17)
[2020-05-25] MEDS: zolPIDEM TARTRATE 5 MG TAB PO SCH (22:17)
[2020-05-26 00:38] LABS: BLOOD UREA NITROGEN 4 MG/DL (7-18); CALCIUM LEVEL 7.9 MG/DL (8.8-10.2); CARBON DIOXIDE LEVEL 22 MEQ/L (21-32); CHLORIDE LEVEL 107 MEQ/L (98-107); CREATININE FOR GFR 0.84 MG/DL (0.55-1.30); GLOMERULAR FILTRATION RATE > 60.0 (>45); GLUCOSE, FASTING 93 MG/DL (70-100); POTASSIUM SERUM 4.2 MEQ/L (3.5-5.1); SODIUM LEVEL 134 MEQ/L (136-145)
[2020-05-26 06:00] VITALS: BP 125/80
[2020-05-26 06:08] LABS: HEMATOCRIT 31.8 % (36.0-47.0); HEMOGLOBIN 9.7 g/dl (12.0-15.5); MEAN CORPUSCULAR HGB CONC 30.5 g/dl (32.0-36.5); MEAN CORPUSCULAR VOLUME 91.6 fl (80.0-96.0); PLATELET COUNT, AUTOMATED 240 10^3/uL (150-450); RED BLOOD COUNT 3.47 10^6/uL (4.00-5.40); WHITE BLOOD COUNT 6.4 10^3/uL (4.0-10.0)
[2020-05-26 06:32] LABS: BLOOD UREA NITROGEN 3 MG/DL (7-18); CALCIUM LEVEL 8.4 MG/DL (8.8-10.2); CARBON DIOXIDE LEVEL 21 MEQ/L (21-32); CHLORIDE LEVEL 109 MEQ/L (98-107); GLOMERULAR FILTRATION RATE > 60.0 (>45); GLUCOSE, FASTING 79 MG/DL (70-100); MAGNESIUM LEVEL 1.7 MG/DL (1.8-2.4); SODIUM LEVEL 137 MEQ/L (136-145)
[2020-05-26 07:44] VITALS: BP 136/78
[2020-05-26] MEDS: oxyCODONE 5MG TAB PO PRN (08:10)
[2020-05-26] MEDS: ONDANSETRON 4 MG TAB PO PRN (09:08)
[2020-05-26] MEDS: PANTOPRAZOLE 40MG TAB (PROTONIX) PO SCH (09:09)
[2020-05-26] MEDS: APIXABAN 5 MG TAB (ELIQUIS) PO SCH (09:09)
[2020-05-26] MEDS: GABAPENTIN 300 MG CAP PO SCH (09:10)
[2020-05-26] MEDS: AMIODARONE 200 MG TAB (PACERONE) PO SCH (09:10)
[2020-05-26] MEDS: OLANZapine 2.5MG TABLET PO SCH (09:10)
[2020-05-26] MEDS: FOLIC ACID 1 MG TAB PO SCH (09:12)
[2020-05-26] MEDS: ACETAMINOPHEN TAB 650MG DOSE (2X325MG) PO SCH (09:12)
[2020-05-26] MEDS: DULoxetine 30 MG CAP (CYMBALTA) PO SCH (09:12)
[2020-05-26] MEDS: TOLTERODINE TARTRATE 2 MG LA CAP (DETROL LA) PO SCH (09:12)
[2020-05-26] MEDS ORDERED: MOM30SS2 PO (10:54)
[2020-05-26] MEDS ORDERED: METO5TAB2 PO (10:54)
[2020-05-26] MEDS ORDERED: CHOL4PW PO (10:54)
[2020-05-26] MEDS ORDERED: OXYC-517 PO (10:54)
[2020-05-26] MEDS ORDERED: PANT40TA29 PO (10:54)
[2020-05-26] MEDS: CHOLESTYRAMINE 4 GM PWD PKT PO SCH (11:41)
[2020-05-26 13:45] VITALS: BP 134/104
--- NOTE | 2020-05-26 15:25 | DS.PDOC ---
Discharge Summary General Date of Admission May 03, 2020 at 15:40 Date of Discharge 05/26/2020 Discharge Summary PROCEDURES PERFORMED DURING STAY: 05/09/2020: Revision of her ostomy with Dr. Do 05/12/2020: Laparotomy with lysis of adhesions and revision of ileostomy with Dr. Johnson ADMITTING DIAGNOSES / DISCHARGE DIAGNOSES: s/p Nausea and Vomiting - likely SBO s/p Hyponatremia - suspect 2/2 hypotonic etiology - likely 2/2 dehydration 2/2 increased ostomy output s/p Hypomagnesemia Generalized weakness - likely 2/2 deconditioning s/p Ileus Subhepatic seroma/hematoma Atrial fibrillation Moderate Aortic stenosis HTN DLP Fibromyalgia / Chronic pain syndrome GERD DVT prophylaxis COMPLICATIONS/CHIEF COMPLAINT: Retracted Ileostomy. HISTORY OF PRESENT ILLNESS: Patient is a 65-year-old female with a PMHx of Moderate Aortic stenosis (Follows with Dr. Schulte), Fibromyalgia, Chronic pain syndrome who was originally admitted on 03/28/2020 for abdominal pain, found to be secondary to a small bowel obstruction with ischemia. Patient underwent urgent subtotal colectomy with ostomy creation. . She had remained inpatient and was eventually transitioned to acute rehabilitation unit on 04/09/2020. On 04/13/2020 she was transferred to inpatient floor again for suspected sepsis 2/2 seroma / fluid collection and questionable pneumonia. Subhepatic collection was drained. Wound vac continued for her abdominal incision. Patient had completed a course of Levaquin and Flagyl. Patient was again transitioned back to the acute rehabilitation unit on 04/29/2020. On 05/03/2020 patient experienced fecal vomitus with worsening abdominal pain. Was found to have a high-grade small bowel obstruction with multiple transition points. General surgery was consulted and she had failed conservative measures and was ultimately taken down for surgery on for revision of her ostomy on 05/09/2020. Patient continued to experience vomiting and was eventually taken down again on 05/12/2020 for laparotomy with lysis of adhesions and revision of ileostomy. Patient has remained on a wound VAC since that point. Her diet has been slowly advanced by surgery to pureed. Patient has had wound VAC discontinued this morning as per surgery and advised to continue with wet to dry dressing changes at home. Patient was seen and examined at the bedside. Currently patient denies any nausea, vomiting, abdominal discomfort. Reports adequate output from ostomy. Denies any chest pain, shortness breath or palpitations. HOSPITAL COURSE: s/p Nausea and Vomiting - likely SBO - Abdomen is without any significant tenderness, has not experience any nausea, vomiting, Output from ostomy has been adequate - Abdomen without any significant tenderness; ostomy continues to reveal adequate output - No leukocytosis - s/p Wound vac; has been discontinued by general surgery this morning - Continue with dressing changes as per surgery - Diet advanced as per surgery; tolerating pured diet - Will have outpatient follow-up with general surgery within the next 7 days s/p Hyponatremia - suspect 2/2 hypotonic etiology - likely 2/2 dehydration 2/2 increased ostomy output - Sodium has remained stable - s/p Fluids - Started of Cholestyramine; will have close follow up with PCP / General surgery to ensure adequate consistency of stools from ostomy - Patient has been advised to remain complaint with dietary plan s/p Hypomagnesemia Generalized weakness - likely 2/2 deconditioning - Has progressed with physical therapy; cleared for DC home s/p Ileus Subhepatic seroma/hematoma - Area of fluid collection has been drained via interventional radiology - Patient has completed course of antibiotics Atrial fibrillation - Continue with rate and rhythm control with amiodarone - Discussions about risks and benefits of anticoagulation were had with the patient on 05/19 and anticoagulation was resumed - c/w full anticoagulation with Eliquis Moderate Aortic stenosis - Follows with Dr. Schulte HTN - Currently patient's blood pressure appears to be normotensive - s/p atenolol DLP - c/w Rosuvastatin Fibromyalgia / Chronic pain syndrome - c/w Olanzapine, Duloxetine, Gabapentin GERD - c/w Protonix DVT prophylaxis - c/w TEDs/Sequentials and full anticoagulation with Eliquis DISCHARGE MEDICATIONS: Please see below. ALLERGIES: Please see below. PHYSICAL EXAMINATION ON DISCHARGE: VITAL SIGNS: Please see below. Vitals (See below) General: Patient is sitting up in chair, does not appear to be in any acute distress, is awake, alert and oriented 3 HEENT: NC, AT CVS: +S1S2 Lungs: Again, auscultation is fair bilaterally without evidence of rhonchi, crackles or wheezing Abdomen: Abdomen is soft without any distention or tenderness. Midline incision appears to be healing well; no drainage Extremities: There does not appear to be any edema. Extremities, - Calf tenderness LABORATORY DATA: Please see below. ACTIVITY: [As tolerated]. DIET: Pured DISCHARGE PLAN: Follow-up with primary care, cardiology and surgery within the next 7 days Remain compliant with treatment plan and medications Return to the ER if you experience any problems Durable medical equipment requirements: Wheelchair 1) The beneficiary has a mobility limitation that significantly impairs her ability to participate in one or more mobility related activities of daily living (MRADL) such as toileting, feeding dressing, grooming and bathing in customary locations in the home. A mobility limitation is one that: a) prevents her from accomplishing an MRADL entirely b) places the beneficiary at reasonably determined heightened risk of morbidity or mortality secondary to the attempts to perform an MRADL c) prevents the beneficiary from completing an MRADL within a reasonable time f rame 2) The beneficiary's mobility limitation cannot be sufficiently resolved by the use of an appropriate fitted cane or walker 3) Her home provides adequate access between rooms, maneuvering space and surface for use of the manual wheelchair that is provided 4) Use of manual wheelchair will significantly improve the beneficiary's ability to participate in MRADLs and she will use it on a regular basis in the home 5) The beneficiary has not expressed unwillingness to use the manual wheelchair that is provided in the home. 6) She has a caregiver who is available, willing and able to provide assistance with the wheelchair DISPOSITION: Home with services DISCHARGE CONDITION: [Stable]. TIME SPENT ON DISCHARGE: 35 minutes. Vital Signs/I&Os Vital Signs Date Time Temp Pulse Resp B/P (MAP) Pulse Ox O2 Delivery O2 Flow Rate FiO2 05/26/20 13:45 97.6 98 16 134/104 (114) 97 05/26/20 08:10 Room Air I&O- Last 24 Hours up to 6 AM 05/26/20 06:00 Intake Total 770 ml Output Total 1875 ml Balance -1105 ml Laboratory Data Labs 24H Laboratory Tests 2 05/25/20 17:58: Anion Gap 5L, Glomerular Filtration Rate > 60.0, Calcium Level 8.1L 05/26/20 00:02: Anion Gap 5L, Glomerular Filtration Rate > 60.0, Calcium Level 7.9L 05/26/20 05:44: Anion Gap 7L, Glomerular Filtration Rate > 60.0, Calcium Level 8.4L, Nucleated Red Blood Cells % (auto) 0.0, Magnesium Level 1.7L CBC/BMP Laboratory Tests 05/25/20 17:58 05/26/20 00:02 05/26/20 05:44 Discharge Medications Scheduled Amiodarone HCl (Amiodarone HCl) 200 Mg Tablet, 200 MG PO DAILY Apixaban (Eliquis) 5 Mg Tablet, 5 MG PO BID Cholecalciferol (Vitamin D3) (Vitamin D3) 25 Mcg Tablet, 25 MCG PO DAILY, (Reported) Cholestyramine (Cholestyramine Packet) 4 Gm Powd.pack, 2 GM PO BID@1100,1800 Duloxetine Hcl (Duloxetine HCl) 30 Mg Capsule.dr, 60 MG PO QHS, (Reported) Duloxetine Hcl (Duloxetine HCl) 30 Mg Capsule.dr, 30 MG PO QAM, (Reported) Folic Acid (Folic Acid) 1 Mg Tablet, 1 MG PO DAILY, (Reported) Gabapentin (Gabapentin) 300 Mg Capsule, 300 MG PO TID, (Reported) L.acidoph/L.bulg/B.bif/S.therm (Jaquelin-Bid Caplet) 1 Each Tablet, 1 EA PO TID Magnesium Oxide (Magnesium) 250 Mg Tablet, 1 TAB PO DAILY, (Reported) Olanzapine (Olanzapine) 2.5 Mg Tablet, 2.5 MG PO BID Pantoprazole Sodium (Pantoprazole Sodium) 40 Mg Tablet.dr, 40 MG PO DAILY Rosuvastatin Calcium (Rosuvastatin Calcium) 10 Mg Tablet, 10 MG PO QHS, (Reported) Tolterodine Tartrate (Detrol LA) 2 Mg Cap.er.24h, 2 MG PO DAILY Zolpidem Tartrate (Zolpidem Tartrate) 5 Mg Tablet, 5 MG PO QHS, (Reported) Scheduled PRN Magnesium Hydroxide (Milk of Magnesia) 400 Mg/5 Ml Oral.susp, 30 ML PO DAILY PRN for CONSTIPATION Metoclopramide HCl (Metoclopramide HCl) 5 Mg Tablet, 5 MG PO Q6HP PRN for NAUSEA OR VOMITING Oxycodone HCl (Oxycodone HCl) 5 Mg Tablet, 5 MG PO Q4HP PRN for MODERATE/SEVERE PAIN (PS 5-10) Allergies Coded Allergies: Penicillins (Verified Allergy, Severe, anyphylaxis, 07/30/19) Cephalosporins (Verified Adverse Reaction, Severe, red man syndrome, 04/29/20) GERRY ARRIOLA MD May 26, 2020 15:25
[2020-05-26] MEDS ORDERED: ELIQ5TAB PO (15:41)
[2020-05-26] MEDS ORDERED: OLAN2.5T25 PO (15:41)
--- NOTE | 2020-05-29 10:23 | IPN ---
DATE: 05/26/2020 HISTORY: Patient is now 17 days postoperative from revision of her ileostomy. She did well over the weekend and was advanced to a pureed diet. The diet was not appetizing and she is wondering if she can continue with some soft foods. She also expressed that she thinks the wound vacuum assisted closure (VAC) may no longer be necessary. Vital signs show that she has been afebrile over the past 24 hours. Her pulse is in the 90s. Blood pressure is good and her room air oxygen saturation is in the mid to upper 90s. Intake and output shows that she had 1670 in yesterday, 920 of which was oral. She had an excellent urine output and a good output of stool from her ileostomy. PHYSICAL EXAMINATION: Patient is alert and seems oriented. Skin is warm and dry. Heart and lung exams are unremarkable. The abdomen shows that the ileostomy is functioning well with the appliance in place. Her incision from the old ileostomy site appears to be well-healed though this is partially hidden by the overlying ostomy appliance. The wound VAC was removed and she has two thin strips of granulation tissue present at the top and bottom portions of the wound. These are about 3 cm in length x 1 cm in width and require only some epithelialization at this point. LABORATORY STUDIES: Today Show a white count of 6, hemoglobin 10, hematocrit 32, and a platelet count of 240,000. Chemistry profile shows sodium 137, potassium 4.0, chloride 109, CO2 of 21, BUN of 3, creatinine 0.8, and a glucose of 79. IMPRESSION: Patient appears to be doing well. I believe she is ready for discharge today. She has tolerated her pureed diet well. RECOMMENDATIONS: I have recommended to her that she remain on pureed food and baby food consistencies for now. I believe she has an underlying partial small bowel obstruction and has not tolerated solid foods several times now. I believe we can dispense with the wound vacuum assisted closure (VAC). I have encouraged her to wash the wound gently with soap and water twice daily and apply a light dressing of moist gauze covered by dry gauze. She should be up to ambulate as able and should probably continue some physical therapy at home. She should followup in the surgical office in another 2-3 weeks for assessment at that point. Hopefully, as time goes on, her partial obstruction will become less evident and she will be able to resume more normal foods. MTDD
--- NOTE | 2020-06-01 13:51 | IPN ---
DATE: 05/20/2020 HISTORY: Patient is a 65-year-old woman who, at the end of February, had undergone a total abdominal colectomy for ischemia. Her ileostomy had necrosed and retracted and on 05/09/2020, I recreated a new ileostomy and moved this into the right upper quadrant. The next day, I began vacation. In my absence, the patient had some recurrence of obstructive type symptoms. She did not tolerate a diet well and ultimately her nasogastric (NG) tube was reinserted. A repeat CT scan was done on 05/15/2020. This suggested possible partial small bowel obstruction. This was quite proximal. She subsequently had her NG tube removed and she has tolerated clear liquids and then full liquids over this past weekend. Vital signs show that patient has remained afebrile over the past 24 hours. Her pulse is generally in the 90s to low 100s and her blood pressure is good. Intake and output show that she had 1200 mL in yesterday with 2150 out. PHYSICAL EXAMINATION: The patient is alert and appears fairly comfortable. Skin is warm and dry. Heart and lung exam is unremarkable. Her wound vacuum assisted closure (VAC) remains in place on her midline incision. The ostomy appears to be functioning. The old ostomy site remains closed with surgical marshall. The abdomen is nondistended with bowel sounds present. LABORATORY STUDIES: Show a white count of 8, hemoglobin of 9, hematocrit of 31%, and a platelet count of 199,000. Chemistry profile shows normal electrolytes, BUN, creatinine, and glucose. IMPRESSION: The patient appears to be doing well and has been tolerating her current diet of full liquids. Her ostomy appears to be functioning and her abdomen is nondistended. PLAN: I discussed with Dr. Beaulieu possibly advancing the patients diet and she will be advanced to a low residue diet. I counseled her that she should chew carefully as she may still have a persistent partial obstruction. We will see how she does with this diet, but hopefully she will be ready for discharge within the next 2 days. ED
--- NOTE | 2020-06-01 13:53 | IPN ---
DATE: 05/21/2020 HISTORY: Patient is now 12 days postoperative from re-creation of her ileostomy. She has been tolerating her diet better. Her ostomy has been functioning well. She has been a little more physically active and has done some ambulation though fairly limited. Her wound vacuum assisted closure (VAC) has remained in place. Vital signs show that she has been afebrile over the past 24 hours. Her pulse is in the 90s generally to low 100s. Blood pressure is good and her room air oxygen saturations are normal. Intake and output show that yesterday she had 2300 in with 2100 out. Her urine output has been excellent. PHYSICAL EXAMINATION: The patient is alert and appears fairly comfortable. Heart exam shows a regular rhythm and the lungs are clear. The abdomen is flat. She has bowel sounds present. Her wound VAC is removed today and examination shows that she has only two shallow areas of primarily epithelialization yet to occur. The wound is nicely filled in and there are no more deep portions of the wound remaining. The ostomy appears healthy. The healing old ostomy site in the right lower quadrant has marshall still in place. LABORATORY STUDIES: Today show a white count of 8, hemoglobin 10, hematocrit 31, and a platelet count of 213,000. The chemistry profile shows normal electrolytes, BUN and creatinine, and glucose. IMPRESSION: Patient is doing well. Her wound has healed in very nicely and there remain only a few small areas to epithelialize. Her ostomy is functioning well. PLAN: We will continue the wound vacuum assisted closure (VAC) for now. I will have the nurse remove the marshall from her old ostomy site. She will continue with her low residue diet. I would anticipate her being ready for discharge within the next 1-2 days. ED
--- NOTE | 2020-06-01 13:54 | IPN ---
DATE: 05/22/2020 HISTORY: Patient is now 13 days postoperative creation of a new right upper quadrant ileostomy. She had been tolerating her low residue diet for about a day and a half but developed some vomiting very early this morning. She suggests that it may have been associated with the administration of her Flagyl but that is not entirely clear. She was made nothing by mouth after that episode by the covering physician. Her IV has remained saline locked. She currently complains of no nausea and no abdominal pain. She is now about 12-14 hours since her episode of emesis. Vital signs show that she has been afebrile over the past 24 hours. Pulse is in the 90s to low 100s. Blood pressure is good and her oxygenations are fine. Intake and output shows that yesterday she had 1200 in with 1900 out. PHYSICAL EXAMINATION: Patient is sitting up in a chair at the bedside and looks quite comfortable. She denies any nausea or vomiting. Skin is warm and dry. Her ostomy is putting out some watery green-brown fluid. The wound vacuum assisted closure (VAC) is functional with little to no output in the cannister. The abdomen is soft and nondistended with active bowel sounds. IMPRESSION: Patient has had another episode of vomiting following advancement to a low residue diet. PLAN: Patient will be started back on clears since she has not had any further vomiting since early this morning. I will stop her ciprofloxacin and Flagyl at this point as there does not seem to be any need to continue these. I encouraged her to be up ambulating. We will work slowly toward advancing her diet again, but it may be prudent not to advance her all the way back to anything thicker than a pureed diet. We will see how it goes over the next couple days. Her discharge will have to be on hold for now. ED
--- NOTE | 2020-06-01 13:55 | IPN ---
DATE: 05/23/2020 HISTORY: Patient is now 2 weeks post-creation of her new ileostomy. She had an episode of vomiting early yesterday morning after being advanced to a low residue diet about a day and a half earlier. She tolerated the clear liquids yesterday afternoon and this morning. She denies any nausea or vomiting currently and her urine output and ostomy output have been fine. Vital signs show that she has been afebrile over the past 24 hours. Her pulse is in the 90s. Blood pressure is good and her oxygen saturations are fine. Intake and output show that yesterday she had only 800 recorded in with 1350 out. PHYSICAL EXAMINATION: Patient is alert and comfortable. Skin is warm and dry. The abdomen is flat. Her wound vacuum assisted closure (VAC) remains in place with little to no output. The ostomy appears healthy. LABORATORY STUDIES: Patient had no labs this morning. IMPRESSION: Patient has tolerated the clear liquids since yesterday afternoon. She has had no recurrence of any vomiting. My impression is that she likely has a persistent partial obstruction and just may not be able to tolerate any solid food. PLAN: I discussed with the patient and her my concerns about a persistent partial small bowel obstruction. I advised them that we could advance her to a full liquid diet and see how this goes. I reassured them that if necessary she could go home on a liquid diet, though the seemed somewhat skeptical. I assured him that it would be possible for her to gain adequate calories and nutritional value from liquids if necessary. We will therefore try the full liquids today. I discussed with them that I will be out of the hospital this weekend but I will speak to the covering physician about advancing her to a pureed diet over the weekend. I would anticipate that if she can tolerate this, she could go home on a baby food consistency diet for a time to see if her partial obstruction will improve with time. We will continue the wound vacuum assisted closure (VAC) for now. ED
[2020-06-18] MEDS ORDERED: PERC10TA26 PO (15:51)
[2020-06-18] MEDS ORDERED: NEXI40CA PO (15:51)
[2020-06-18] MEDS ORDERED: CO Q200C10 PO (15:51)
[2020-06-18] MEDS ORDERED: SING10TA32 PO (15:51)
[2020-06-18] MEDS ORDERED: CELE100C PO (15:51)
[2020-06-18] MEDS ORDERED: WELLTAB38 PO (15:51)
[2020-06-18] MEDS ORDERED: OYST500T12 PO (15:51)
[2020-06-18] MEDS ORDERED: ALBU83IN INH (15:51)
[2020-06-18] MEDS ORDERED: DETR4CAP PO (15:51)
== END 2020-05-26 16:36 | disposition home health service (06) | DRG 330 ==
LOC: M MSPAV 15:40
PROVIDERS: ADMIT Family Medicine; ATTEND Internal Medicine
PROC: 02HV33Z Insertion of Infusion Device into Superior Vena Cava, Percutaneous Approach (ICD-10-PCS; 2020-05-06)
PROC: 3E0436Z Introduction of Nutritional Substance into Central Vein, Percutaneous Approach (ICD-10-PCS; 2020-05-06)
PROC: 0D1B0J4 Bypass Ileum to Cutaneous with Synthetic Substitute, Open Approach (ICD-10-PCS; 2020-05-09)
PROC: 0DBB0ZZ Excision of Ileum, Open Approach (ICD-10-PCS; principal; 2020-05-09 08:15)
DX: K94.13 Enterostomy malfunction (principal); K56.601 Complete intestinal obstruction, unspecified as to cause; E87.1 Hypo-osmolality and hyponatremia; K91.870 Postprocedural hematoma of a digestive system organ or structure following a digestive system procedure; K56.7 Ileus, unspecified; K91.89 Other postprocedural complications and disorders of digestive system; K21.9 Gastro-esophageal reflux disease without esophagitis; E83.42 Hypomagnesemia; I35.0 Nonrheumatic aortic (valve) stenosis; G89.4 Chronic pain syndrome; I10 Essential (primary) hypertension; R53.1 Weakness; I48.91 Unspecified atrial fibrillation; E78.5 Hyperlipidemia, unspecified; N32.81 Overactive bladder; F17.290 Nicotine dependence, other tobacco product, uncomplicated; F32.9 Major depressive disorder, single episode, unspecified; G25.0 Essential tremor; M79.7 Fibromyalgia; I27.20 Pulmonary hypertension, unspecified; I71.4 Abdominal aortic aneurysm, without rupture; Z86.73 Personal history of transient ischemic attack (TIA), and cerebral infarction without residual deficits; Z98.1 Arthrodesis status; Z90.49 Acquired absence of other specified parts of digestive tract

== ENCOUNTER → 2020-06-02 | Outpatient (REF) | payer MEDICARE, OTHER ==
[~2020-06-02] MED LIST changes: +ALBU83IN INH; +ASPI81TA26 PO; +CHOL4PW PO; +CIPR500T3 PO; +CO Q200C10 PO; +METO5TAB2 PO; +MOM30SS2 PO; +OXYC-517 PO; +OYST500T12 PO; +PANT40TA29 PO; +PERC10TA26 PO; +PRED20TA PO; +SING10TA32 PO; +WELLTAB38 PO
[2020-06-02 14:37] LABS: BASO % 0.4 % (0.0-1.0); EOS # 0.5 10^3/uL (0.0-0.5); EOS % 6.3 % (0.0-3.0); HEMATOCRIT 31.3 % (36.0-47.0); HEMOGLOBIN 9.7 g/dl (12.0-15.5); LYMPH # 1.7 10^3/uL (1.5-5.0); LYMPH % 19.6 % (24.0-44.0); MEAN CORPUSCULAR HEMOGLOBIN 28.4 pg (27.0-33.0); MEAN CORPUSCULAR VOLUME 91.5 fl (80.0-96.0); MONO # 0.9 10^3/uL (0.0-0.8); MONO % 10.1 % (0.0-5.0); NEUTROPHILS # 5.4 10^3/uL (1.5-8.5); PLATELET COUNT, AUTOMATED 208 10^3/uL (150-450); RED BLOOD COUNT 3.42 10^6/uL (4.00-5.40); WHITE BLOOD COUNT 8.6 10^3/uL (4.0-10.0)
[2020-06-02 15:09] LABS: ALBUMIN 2.7 GM/DL (3.2-5.2); ALT/SGPT 14 U/L (12-78); BILIRUBIN,DIRECT 0.1 MG/DL (0.0-0.2); BILIRUBIN,TOTAL 0.3 MG/DL (0.2-1.0); BLOOD UREA NITROGEN 6 MG/DL (7-18); C REACTIVE PROTEIN QUANTITATIV 0.96 MG/DL (0.00-0.30); CALCIUM LEVEL 8.5 MG/DL (8.8-10.2); CARBON DIOXIDE LEVEL 23 MEQ/L (21-32); CHLORIDE LEVEL 94 MEQ/L (98-107); CREATININE FOR GFR 0.86 MG/DL (0.55-1.30); FREE T4 1.85 NG/DL (0.76-1.46); GLOMERULAR FILTRATION RATE > 60.0 (>45); GLUCOSE, FASTING 71 MG/DL (70-100); IRON (FE) 37 UG/DL (50-170); LIPASE 82 U/L (73-393); MAGNESIUM LEVEL 1.3 MG/DL (1.8-2.4); PERCENT SATURATION 16.6 % (13.2-45.0); POTASSIUM SERUM 4.4 MEQ/L (3.5-5.1); SODIUM LEVEL 126 MEQ/L (136-145); TOTAL IRON BINDING CAPACITY 223 UG/DL (250-450); TOTAL PROTEIN 6.1 GM/DL (6.4-8.2)
[2020-06-05 16:10] LABS: AMIODARONE (CORDARONE) 1.1 ug/mL (1.0-2.5); ANA (HEP2) Negative (.); NORAMIODARONE LEVEL 0.8 ug/mL (1.0-2.5)
== END ==
LOC: M SHH 13:28
PROVIDERS: ATTEND Physician Assistant
DX: R10.84 Generalized abdominal pain (principal); L94.1 Linear scleroderma

== ENCOUNTER → 2020-06-03 | Outpatient (REF) | payer MEDICARE, OTHER ==
[2020-06-03 18:39] LABS: APPEARANCE, URINE CLOUDY (CLEAR); BACTERIA, URINE AUTO 3+ (NEGATIVE); BILIRUBIN, URINE AUTO NEGATIVE (NEGATIVE); BLOOD, URINE BLOOD 2+ (NEGATIVE); COLOR, URINE YELLOW (YELLOW); GLUCOSE, URINE (UA) AUTO NEGATIVE (NEGATIVE); KETONE, URINE AUTO NEGATIVE (NEGATIVE); LEUKOCYTE ESTERASE, URINE AUTO 3+ (NEGATIVE); MUCUS, URINE SMALL (NEGATIVE); NITRITE, URINE AUTO POSITIVE (NEGATIVE); PROTEIN, URINE AUTO 1+ mg/dL (NEGATIVE); RBC, URINE AUTO 27 /HPF (0-3); SPECIFIC GRAVITY URINE AUTO 1.008 (1.002-1.035); SQUAMOUS EPITHELIAL CELL UR AU 0 /HPF (0-6); UROBILINOGEN, URINE AUTO 0.2 mg/dL (0.0-2.0); WBC, URINE AUTO TNTC /HPF (0-3)
== END ==
LOC: M LAB REF 17:09 → M SHH 17:09
PROVIDERS: ATTEND Physician Assistant
DX: R82.90 Unspecified abnormal findings in urine (principal)

== ENCOUNTER 2020-06-14 04:50 | Emergency (ER) | payer MEDICARE, OTHER ==
[~2020-06-14] VITALS: Ht 152.4 cm; Wt 58.6 kg
[~2020-06-14 04:50] MED LIST changes: -ALBU83IN INH; -ASPI81TA26 PO; -CIPR500T3 PO; -CO Q200C10 PO; -OYST500T12 PO; -PERC10TA26 PO; -PRED20TA PO; -SING10TA32 PO; -WELLTAB38 PO
[2020-06-14] MEDS ORDERED: CIPR500T3 PO (05:15)
[2020-06-14] MEDS ORDERED: ASPI81TA26 PO (05:15)
[2020-06-14] MEDS ORDERED: dexameTHASONE 20MG/5ML VIAL (J1100 PER 1MG) IV ONE (06:15)
[2020-06-14 06:22] LABS: BASO % 0.4 % (0.0-1.0); EOS # 0.3 10^3/uL (0.0-0.5); EOS % 2.9 % (0.0-3.0); HEMATOCRIT 33.6 % (36.0-47.0); HEMOGLOBIN 10.5 g/dl (12.0-15.5); LYMPH # 2.5 10^3/uL (1.5-5.0); LYMPH % 23.5 % (24.0-44.0); MEAN CORPUSCULAR HEMOGLOBIN 28.6 pg (27.0-33.0); MEAN CORPUSCULAR HGB CONC 31.3 g/dl (32.0-36.5); MEAN CORPUSCULAR VOLUME 91.6 fl (80.0-96.0); MONO # 0.6 10^3/uL (0.0-0.8); NEUTROPHILS # 6.9 10^3/uL (1.5-8.5); NEUTROPHILS % 66.3 % (36.0-66.0); PLATELET COUNT, AUTOMATED 204 10^3/uL (150-450); RED BLOOD COUNT 3.67 10^6/uL (4.00-5.40); WHITE BLOOD COUNT 10.4 10^3/uL (4.0-10.0)
[2020-06-14 06:32] LABS: BLOOD UREA NITROGEN 7 MG/DL (7-18); CALCIUM LEVEL 7.5 MG/DL (8.8-10.2); CARBON DIOXIDE LEVEL 23 MEQ/L (21-32); CHLORIDE LEVEL 96 MEQ/L (98-107); CREATININE FOR GFR 0.77 MG/DL (0.55-1.30); GLOMERULAR FILTRATION RATE > 60.0 (>45); GLUCOSE, FASTING 91 MG/DL (70-100); SODIUM LEVEL 127 MEQ/L (136-145)
--- NOTE | 2020-06-14 07:08 | REPVR ---
PROCEDURE INFORMATION: Exam: XR Chest, 2 Views Exam date and time: 06/14/2020 6:13 AM Age: 65 years old Clinical indication: Other: Dyspnea/cough TECHNIQUE: Imaging protocol: XR of the chest Views: 2 views. COMPARISON: CR Abdomen,Flat Upright,PA CHEST 05/14/2020 9:31 AM FINDINGS: Lungs: Stable parenchymal stranding in the right middle lobe and mild interstitial prominence. Pleural space: No significant pleural effusion. Heart/Mediastinum: No cardiomegaly. Bones/joints: Cervical spine fusion. Degenerative change. When correlating with the previous study, no significant interval changes are present. IMPRESSION: Stable appearance of the chest, not significantly changed from 05/14/20. Electronically signed by: Mandeep Cueva On 06/14/2020 07:07:40 AM
[2020-06-14] MEDS ORDERED: PRED20TA PO (08:29)
[2020-06-14 09:06] VITALS: BP 146/81
[2020-06-18] MEDS ORDERED: OYST500T12 PO (15:51)
[2020-06-18] MEDS ORDERED: ALBU83IN INH (15:51)
[2020-06-18] MEDS ORDERED: CELE100C PO (15:51)
[2020-06-18] MEDS ORDERED: NEXI40CA PO (15:51)
[2020-06-18] MEDS ORDERED: WELLTAB38 PO (15:51)
[2020-06-18] MEDS ORDERED: SING10TA32 PO (15:51)
[2020-06-18] MEDS ORDERED: DETR4CAP PO (15:51)
[2020-06-18] MEDS ORDERED: PERC10TA26 PO (15:51)
[2020-06-18] MEDS ORDERED: CO Q200C10 PO (15:51)
== END 2020-06-14 09:15 | disposition home or self-care (01) ==
LOC: M ED 04:50
DX: R05 Cough (principal); I48.91 Unspecified atrial fibrillation; M79.7 Fibromyalgia; M34.9 Systemic sclerosis, unspecified; E78.5 Hyperlipidemia, unspecified; K55.9 Vascular disorder of intestine, unspecified; I35.0 Nonrheumatic aortic (valve) stenosis; Z88.0 Allergy status to penicillin; Z88.1 Allergy status to other antibiotic agents; Z88.8 Allergy status to other drugs, medicaments and biological substances; Z79.899 Other long term (current) drug therapy; Z79.01 Long term (current) use of anticoagulants
CPT/HCPCS: 36415; 71046; 80048; 85025; 93041; 94760; 96374; 99285; J1100

== ENCOUNTER → 2020-06-23 | Outpatient (CLI) | payer MEDICARE, OTHER ==
[~2020-06-23] MED LIST changes: +ALBU83IN INH; +ASPI1CHW3 PO; +ASPI81TA26 PO; +CHOL4POW4 PO; +CIPR500T3 PO; +CO Q200C10 PO; +FLUT44IN INH; +FLUTISP; +MILKSUS3 PO; +OYST500T12 PO; +PERC10TA26 PO; +PRED20TA PO; +SING10TA32 PO; +SM M250T PO; +WELLTAB38 PO; +flovent
== END ==
LOC: M LABSMTC 13:21
PROVIDERS: ATTEND Anesthesiology
DX: Z20.828 Contact with and (suspected) exposure to other viral communicable diseases (principal)
CPT/HCPCS: C9803; U0003

== ENCOUNTER 2020-07-04 21:34 | Inpatient (IN) | payer MEDICARE, OTHER ==
[~2020-07-04] VITALS: Ht 154.9 cm; Wt 60.5 kg
[~2020-07-04 21:34] MED LIST changes: -ASPI1CHW3 PO; -CHOL4POW4 PO; -FLUT44IN INH; -FLUTISP; -MILKSUS3 PO; -SM M250T PO; -flovent
[2020-07-04] MEDS ORDERED: SUCRALFATE 1 GM TAB PO ONE (23:15)
[2020-07-04] MEDS ORDERED: PANTOPRAZOLE 40MG VIAL (C9113 PER 1) IV ONE (23:15)
[2020-07-04] MEDS: NS 1,000 ML IV SCH (23:41)
[2020-07-04 23:48] LABS: HEMATOCRIT 34.2 % (36.0-47.0); HEMOGLOBIN 10.3 g/dl (12.0-15.5); MEAN CORPUSCULAR HGB CONC 30.1 g/dl (32.0-36.5); MEAN CORPUSCULAR VOLUME 92.9 fl (80.0-96.0); PLATELET COUNT, AUTOMATED 254 10^3/uL (150-450); RED BLOOD COUNT 3.68 10^6/uL (4.00-5.40); WHITE BLOOD COUNT 7.5 10^3/uL (4.0-10.0)
[2020-07-04 23:59] LABS: INR 0.99; PROTHROMBIN TIME 13.3 SECONDS (12.5-14.3)
[2020-07-05] MEDS ORDERED: AMIO200T3 PO (00:01)
[2020-07-05] MEDS ORDERED: ELIQ5TAB PO (00:01)
[2020-07-05] MEDS ORDERED: ASPI1CHW3 PO (00:01)
[2020-07-05] MEDS ORDERED: CHOL4POW4 PO (00:01)
[2020-07-05] MEDS ORDERED: RISATAB3 PO (00:05)
[2020-07-05] MEDS ORDERED: SM M250T PO (00:05)
[2020-07-05] MEDS ORDERED: MILKSUS3 PO (00:05)
[2020-07-05 00:10] LABS: ALBUMIN 3.4 GM/DL (3.2-5.2); ALT/SGPT 15 U/L (12-78); BILIRUBIN,DIRECT < 0.1 MG/DL (0.0-0.2); BILIRUBIN,TOTAL 0.2 MG/DL (0.2-1.0); BLOOD UREA NITROGEN 9 MG/DL (7-18); CALCIUM LEVEL 8.3 MG/DL (8.8-10.2); CARBON DIOXIDE LEVEL 27 MEQ/L (21-32); CHLORIDE LEVEL 100 MEQ/L (98-107); CREATININE FOR GFR 1.27 MG/DL (0.55-1.30); GLOMERULAR FILTRATION RATE 44.7 (>45); GLUCOSE, FASTING 85 MG/DL (70-100); LIPASE 69 U/L (73-393); POTASSIUM SERUM 4.3 MEQ/L (3.5-5.1); SODIUM LEVEL 133 MEQ/L (136-145); TOTAL PROTEIN 6.4 GM/DL (6.4-8.2)
[2020-07-05] MEDS ORDERED: HYDR-4517 PO (00:10)
[2020-07-05] MEDS ORDERED: OLAN2.5T25 PO (00:10)
[2020-07-05] MEDS ORDERED: FLUTISP (00:10)
[2020-07-05] MEDS ORDERED: METO5TAB2 PO (00:10)
[2020-07-05] MEDS ORDERED: FLUT44IN INH (00:14)
[2020-07-05] MEDS ORDERED: flovent (00:14)
--- NOTE | 2020-07-05 00:27 | REPVR ---
PROCEDURE INFORMATION: Exam: XR Complete Acute Abdomen Series Exam date and time: 07/04/2020 11:57 PM Age: 65 years old Clinical indication: Other: Abdominal pain TECHNIQUE: Imaging protocol: XR complete acute abdomen series, including 2 or more views of the abdomen and a single view chest. COMPARISON: CR Chest, 2 view PA, Lat 2020-06-14 05:50 FINDINGS: Lungs: Right basilar subsegmental platelike atelectasis. Pleural space: Normal. No pneumothorax. Heart/Mediastinum: Normal. No cardiomegaly. Gastrointestinal tract: Nonobstructed bowel gas pattern. Question right lower quadrant colostomy. Intraperitoneal space: Multiple clips in suture material in the abdomen. Organs: Cholecystectomy. Bones/joints: Cervical fusion. Soft tissues: Normal. IMPRESSION: 1. Right basilar subsegmental platelike atelectasis. 2. Nonobstructed bowel gas pattern. Electronically signed by: Chau Cristobal On 07/05/2020 00:26:53 AM
[2020-07-05 00:29] LABS: ANISOCYTOSIS 1+; EOSINOPHILS 4 % (0-3); LYMPHOCYTES 43 % (16-44); METAMYELOCYTES 2 % (0-0); MONOCYTES 4 % (0-5); NEUTROPHILS 46 % (28-66); PLATELET ESTIMATE NORMAL (NORMAL)
[2020-07-05 00:30] LABS: HYPOCHROMASIA 1+
[2020-07-05] MEDS ORDERED: ISOVUE-370 76% 100ML VIAL As Ordered ONE (01:32)
[2020-07-05] MEDS ORDERED: KETOROLAC 30 MG/ML 1ML VIAL IV ONE (02:00)
--- NOTE | 2020-07-05 02:07 | REPVR ---
PROCEDURE INFORMATION: Exam: CT Abdomen And Pelvis With Contrast Exam date and time: 07/05/2020 1:24 AM Age: 65 years old Clinical indication: Abdominal pain; Generalized TECHNIQUE: Imaging protocol: Computed tomography of the abdomen and pelvis with intravenous contrast. Radiation optimization: All CT scans at this facility use at least one of these dose optimization techniques: automated exposure control; mA and/or kV adjustment per patient size (includes targeted exams where dose is matched to clinical indication); or iterative reconstruction. Contrast material: ISO; Contrast volume: 100 ml; Contrast route: INTRAVENOUS (IV); COMPARISON: CT ABD/PEL W/IV ORAL CONTRAS 2020-05-15 09:20 FINDINGS: Lungs: Dependent subsegmental pulmonary atelectasis. Decreased atelectasis and opacities in the right lung base. Lingular atelectasis. Liver: Resolved perihepatic fluid. Hepatic steatosis. Gallbladder and bile ducts: Cholecystectomy. There is a mild, expected degree of intrahepatic and common bile duct dilation. Pancreas: Normal. No ductal dilation. Spleen: Normal. No splenomegaly. Adrenal glands: Normal. No mass. Kidneys and ureters: Normal. No hydronephrosis. Stomach and bowel: Diffuse gastric distension and proximal duodenal distension. Suspect some delayed transit or minimal partial obstruction related to the SMA. Courses along the proximal duodenum on series 201, image 54. Right lower quadrant ileostomy with peristomal hernia with protruding small bowel loops in a region measuring approximately 5 cm. Gastric mucosal enhancement, question gastritis. Some of the bowel loops appear adhesed to the anterior abdominal wall. Appendix: Appendectomy. Intraperitoneal space: Unremarkable. No free air. No significant fluid collection. Vasculature: Transition point at the aorta and SMA. There appear to be a couple small artery branches which appear embolized within the mesentery and are hyperdense on series 201, image 69. Focal saccular aneurysm from the distal aorta projecting anteriorly is unchanged measuring 1 cm. High origin of the celiac trunk with moderate stenosis related to the arcuate ligaments. Infrarenal aortic aneurysm with maximal diameter 3 cm is unchanged. Mild right common femoral artery stenosis. Mild moderate renal artery origin stenosis. Lymph nodes: Unremarkable. No enlarged lymph nodes. Urinary bladder: Bladder distension. Reproductive: Hysterectomy. Bones/joints: Moderate lumbar spondylosis. Soft tissues: Parastomal hernia is new since the comparison. Laparotomy scar. IMPRESSION: 1. Right lower quadrant ileostomy with peristomal hernia with protruding small bowel loops in a region measuring approximately 5 cm. Parastomal hernia is new since the comparison. 2. Diffuse gastric distension and proximal duodenal distension. Question gastritis. Transition point at the aorta and SMA. Suspect some delayed transit or minimal partial obstruction related to the SMA. Unchanged. 3. There appear to be a couple small artery branches which appear embolized within the mesentery and are hyperdense on series 201, image 69. Courses along the proximal duodenum on series 201, image 54. Correlate with surgical history. Unchanged. 4. Focal saccular aneurysm from the distal aorta projecting anteriorly is unchanged measuring 1 cm. 5. High origin of the celiac trunk with moderate stenosis related to the arcuate ligaments. 6. Infrarenal aortic aneurysm with maximal diameter 3 cm is unchanged. 7. Gastric mucosal enhancement, question gastritis. Electronically signed by: Chau Cristobal On 07/05/2020 02:06:58 AM
--- NOTE | 2020-07-05 03:28 | REPVR ---
PROCEDURE INFORMATION: Exam: CT Head Without Contrast Exam date and time: 07/05/2020 2:51 AM Age: 65 years old Clinical indication: Injury or trauma; Fall; Concussion/head injury; Consciousness not specified TECHNIQUE: Imaging protocol: Computed tomography of the head without contrast. Radiation optimization: All CT scans at this facility use at least one of these dose optimization techniques: automated exposure control; mA and/or kV adjustment per patient size (includes targeted exams where dose is matched to clinical indication); or iterative reconstruction. COMPARISON: CT Head without contrast 2019-10-27 10:18 FINDINGS: Brain: Diffuse moderate cerebral age related volume loss. Moderate patchy low attenuation in the white matter compatible with moderate chronic small vessel ischemic disease. No midline shift, mass, fluid collection, or evidence of hemorrhage. Cerebral ventricles: Ventricular enlargement proportional to volume loss. Bones/joints: Unremarkable. No acute fracture. Paranasal sinuses: Visualized sinuses are unremarkable. No fluid levels. Mastoid air cells: Visualized mastoid air cells are well aerated. Soft tissues: Right parietal scalp hematoma. IMPRESSION: 1. Moderate involutional changes, no acute intracranial abnormality. 2. Right parietal scalp hematoma. Electronically signed by: Chau Cristobal On 07/05/2020 03:28:22 AM
--- NOTE | 2020-07-05 03:31 | REPVR ---
PROCEDURE INFORMATION: Exam: CT Cervical Spine Without Contrast Exam date and time: 07/05/2020 2:51 AM Age: 65 years old Clinical indication: Injury or trauma; Fall; Concussion/head injury TECHNIQUE: Imaging protocol: Computed tomography images of the cervical spine without contrast. Radiation optimization: All CT scans at this facility use at least one of these dose optimization techniques: automated exposure control; mA and/or kV adjustment per patient size (includes targeted exams where dose is matched to clinical indication); or iterative reconstruction. COMPARISON: CT Neck with contrast 2019-07-30 18:08 FINDINGS: Bones/joints: C4-C6 ACDF. Straightened cervical curvature. No acute vertebral fracture/subluxation. Discs/Spinal canal/Neural foramina: Degenerative disc and joint disease greatest at C3-C4 with a central disc protrusion and disc osteophyte complex causing at least, moderate spinal and moderate to severe left greater than right foraminal stenosis. Soft tissues: Unremarkable. Auditory system: Debris and cerumen located in the external auditory canals. Lungs: Lung apices are normal. IMPRESSION: 1. Degenerative disc and joint disease greatest at C3-C4 with a central disc protrusion and disc osteophyte complex causing at least, moderate spinal and moderate to severe left greater than right foraminal stenosis. 2. No acute vertebral fracture/subluxation. Electronically signed by: Chau Cristobal On 07/05/2020 03:31:29 AM
[2020-07-05] MEDS: MORPHINE 2 MG/ML 1ML VIAL (J2270) IV PRN ×4 (04:04→20:50)
--- NOTE | 2020-07-05 04:10 | REPVR ---
PROCEDURE INFORMATION: Exam: XR Right Shoulder Exam date and time: 07/05/2020 2:53 AM Age: 65 years old Clinical indication: Other: Fall TECHNIQUE: Imaging protocol: XR Right shoulder. Views: 2 or more views. COMPARISON: No relevant prior studies available. FINDINGS: Bones/joints: Acute right humeral head fracture. Cervical fusion. Lungs: Right lung base opacities. Soft tissues: Soft tissue swelling. IMPRESSION: Acute right humeral head fracture. Electronically signed by: Chau Cristobal On 07/05/2020 04:10:26 AM
[2020-07-05] MEDS ORDERED: NORCO, ANEXSIA 5/325MG TABLET (HYDROcodone/ACETAMINOPHEN) PO ONE (05:00)
[2020-07-05] MEDS ORDERED: atenoloL 25 MG TAB PO ONE (05:00)
[2020-07-05] MEDS ORDERED: ACETAMINOPHEN TAB 650MG DOSE (2X325MG) PO PRN (05:00)
[2020-07-05] MEDS ORDERED: MOM 30ML SUSPENSION UDC PO PRN (05:00)
[2020-07-05] MEDS ORDERED: METOCLOPRAMIDE 5 MG TAB PO PRN (05:00)
--- NOTE | 2020-07-05 05:21 | HPEPDOC ---
[facility] Medical History & Physical Date of Admission Jul 05, 2020 Date of Service: Jul 05, 2020 History and Physical CHIEF COMPLAINT: Concern for blood in ostomy bag HISTORY OF PRESENT ILLNESS: 65F hx of paroxysmal Afib on eliquis, HTN, Scleroderma, fibromyalgia, chronic pain syndrome, recently underwent a subtotal colectomy on 03/28/20 for bowel ischemia with ostomy bag. Patient presented to the emergency department because of concern of perhaps having noticed blood in her ostomy bag. When I saw her she tells me she doesn't see the blood anymore. ED Dr. Manzano spoke with Dr. Do surgery who will evaluate the patient in the morning. While in the emergency department patient tells me she got up to use the washr oom and decided she did not want use her walker and tripped on her feet and fell onto her right shoulder and head. In the emergency department CT head which does not show an acute intracranial abnormality per the radiologist's read. Cervical spine CT does not show acute vertebral fracture/subluxation. Right shoulder x- ray shows acute right humeral head fracture and Dr. Manzano placed her on a sling and recommended morning evaluation by orthopedics. CT abdomen does not show any acute pathology. PAST MEDICAL HISTORY: Gastroesophageal reflux disease (GERD) Hyperlipidemia. Overactive bladder Depression. Carotid artery stenosis status post carotid endarterectomy. cerebrovascular accident (CVA) essential tremors endometriosis scleroderma SLE. Fibromyalgia. Aortic valve stenosis with chronic heart murmur. pulmonary hypertension. aortic abdominal aneurysm measuring 3.1 cm. PAST SURGICAL HISTORY: Bowel ischemia s/p subtotal colectomy with ileostomy Right carotid endarterectomy. cervical fusion. cholecystectomy. section. Hysterectomy. 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 She currently uses E-cigarettes. She quit tobacco 5 years ago. She is presently retired. Does not use any alcohol or illicit drugs. FAMILY HISTORY: From chart review: Notable for a brother with mesothelioma. Mom in her mid 60s from pancreatic cancer and her father is living, in his 90s presently, who has history of renal carcinoma. ALLERGIES: Please see below. REVIEW OF SYSTEMS: 10 point review of systems complete all negative otherwise stated in HPI HOME MEDICATIONS: Please see below. PHYSICAL EXAMINATION: Constitutional: Awake and alert, in no apparent distress ENT: Sclera are clear. Mucosa is moist. Respiratory: Lungs CTA bilaterally. No respiratory distress. No use of accessory muscles. Cardiovascular: RRR S1 and S2 are normal, no murmur Gastrointestinal: Abdomen is soft, non distended, non tender, BS present. Right- sided ileostomy bag with soft brown stool in no apparent blood or clots. Musculoskeletal: No edema. Neurologic: No focal neurological deficit. Mental Status: A&O x3, normal affect Skin: Warm, dry LABORATORY DATA: See below. IMAGING: Imaging reviewed. See chart. MICROBIOLOGY: Please see below. ASSESSMENT/PLAN 65F hx of paroxysmal Afib on eliquis, HTN, Scleroderma, fibromyalgia, chronic pain syndrome, recently underwent a subtotal colectomy on 03/28/20 for bowel is chemia with ostomy bag. Admitted because of concern of bleed in ostomy bag. ED spoke with Dr. Do who will see her in the morning. In the ED she was walking to bathroom and did not want use her walker and she fell on the back of her head and right shoulder. CT head negative. X-ray read by Dr. Rubio suggests right humeral head fracture knee put her on a sling and suggested orthopedics consultation in the morning. Admitted to medical unit for further management. #. Reported blood in ileostomy bag: s/p subtotal colectomy for ischemic colitis. Surgery Dr Roberts contacted from ED and evaluated patient in the morning. Hold eliquis for now. No blood seen on exam. Repeat CBC. CT abdomen/pelvis not showing acute pathology. # R humeral head fx s/p fall: consult ortho in the morning. Sling in place. Redig and tylenol for pain control. # Paroxysmal Afib: rate control with amiodarone, atenolol. Eliquis held. Med rec doesnt reveal atenolol but hr Is elevated ~100 and she was on it before. Attempt to reconcile in the morning, I will place her back on atenolol for now. EKG showing sinus tachy. Follows with Dr Hooks with plans for loop recorder to be placed next week in clinic. # HTN: Atenolol. Add amlodipine. Pain control. Monitor and titrate # Dyslipidemia: crestor. # Fibromyalgia: cymbalta, gabapentin, tylenol. # MDD: continue home meds # Hx of CVA: asa/statin. hold ASA. # DVT Prophylaxis: SCDs only until evaluation by surgery for possible ileostomy bag bleed A [facility] Hospitalist Vital Signs Vital Signs Date Time Temp Pulse Resp B/P (MAP) Pulse Ox O2 Delivery O2 Flow Rate FiO2 07/05/20 04:19 110 07/05/20 04:15 188/94 (125) 07/05/20 04:14 18 20 Room Air 07/04/20 21:35 98.3 Laboratory Data Labs 24H Laboratory Tests 2 07/04/20 23:34: Neutrophils (%) (Auto) , Nucleated Red Blood Cells % (auto) 0.0, Neutrophils 46, Band Neutrophils 1, Lymphocytes (Manual) 43, Monocytes (Manual) 4, Eosinophils (Manual) 4H, Metamyelocytes 2H, Hypochromasia 1+, Anisocytosis 1+, Platelet Estimate NORMAL, Prothrombin Time 13.3, Prothromb Time International Ratio 0.99, Anion Gap 6L, Glomerular Filtration Rate 44.7L, Calcium Level 8.3L, Total Bilirubin 0.2, Direct Bilirubin < 0.1, Aspartate Amino Transf (AST/SGOT) 13, Alanine Aminotransferase (ALT/SGPT) 15, Alkaline Phosphatase 75, Total Protein 6.4, Albumin 3.4, Albumin/Globulin Ratio 1.1L, Lipase 69L CBC/BMP Laboratory Tests 07/04/20 23:34 Home Medications Scheduled Albuterol Sulf (Albuterol Sulfate) 2.5 Mg/3 Ml Vial.neb, 2.5 MG INH DAILY Amiodarone HCl (Amiodarone HCl) 200 Mg Tablet, 200 MG PO DAILY Apixaban (Eliquis) 5 Mg Tablet, 5 MG PO BID Aspirin (Aspirin) 81 Mg Tab.chew, 81 MG PO DAILY Bupropion HCl (Wellbutrin Xl) 150 Mg Tab.er.24h, 150 MG PO DAILY Celecoxib (Celebrex) 100 Mg Capsule, 100 MG PO BID Cholecalciferol (Vitamin D3) (Vitamin D3) 25 Mcg Tablet, 25 MCG PO DAILY Cholestyramine (with Sugar) (Cholestyramine Packet) 4 Gm Powd.pack, 2 GM PO BID 1100 and 1800 Duloxetine Hcl (Duloxetine HCl) 30 Mg Capsule.dr, 60 MG PO QHS Duloxetine Hcl (Duloxetine HCl) 30 Mg Capsule.dr, 30 MG PO QAM Esomeprazole Magnesium (Nexium) 40 Mg Capsule.dr, 40 MG PO BID Fluticasone Propionate (Fluticasone Propionate) 16 Gm [place].susp, 2 SPRAY NA DAILY Folic Acid (Folic Acid) 1 Mg Tablet, 1 MG PO DAILY Gabapentin (Gabapentin) 300 Mg Capsule, 300 MG PO TID L.acidoph/L.bulg/B.bif/S.therm (Jaquelin-Bid Caplet) 1 Each Tablet, 1 TAB PO BID Magnesium (Magnesium) 250 Mg Tablet, 250 MG PO DAILY Montelukast Sodium (Singulair) 10 Mg Tablet, 10 MG PO QHS Olanzapine (Olanzapine) 2.5 Mg Tablet, 2.5 MG PO BID Rosuvastatin Calcium (Rosuvastatin Calcium) 10 Mg Tablet, 10 MG PO QHS Tolterodine Tartrate (Detrol LA) 4 Mg Cap.er.24h, 4 MG PO DAILY Ubidecarenone (Co Q-10) 200 Mg Capsule, 100 MG PO DAILY Zolpidem Tartrate (Zolpidem Tartrate) 5 Mg Tablet, 5 MG PO QHS Scheduled PRN Hydrocodone/Acetaminophen (Hydrocodone-Acetamin 10-325 mg) 1 Each Tablet, 1 TAB PO BID PRN for PAIN Magnesium Hydroxide (Milk of Magnesia) 400 Mg/5 Ml Oral.susp, 30 M PO DAILY PRN for CONSTIPATION Metoclopramide HCl (Metoclopramide HCl) 5 Mg Tablet, 5 MG PO Q6H PRN for NAUSEA OR VOMITING Miscellaneous Medications [flovent] patient not sure on dose and not in external Allergies Coded Allergies: Penicillins (Verified Allergy, Severe, anaphylaxis, 06/18/20) pregabalin (Verified Allergy, Severe, ANAPHYLAXIS, 07/04/20) Cephalosporins (Verified Adverse Reaction, Severe, red man syndrome, 06/14/20) HELGA WELLINGTON MD Jul 05, 2020 05:21
[2020-07-05] MEDS: ROSUVASTATIN 10 MG TAB (CRESTOR) PO SCH ×2 (05:22→20:34)
[2020-07-05] MEDS: amLODIPine 5 MG TAB PO SCH (05:25)
[2020-07-05 05:47] VITALS: BP 177/85
[2020-07-05] MEDS: DULoxetine 30 MG CAP (CYMBALTA) PO SCH ×2 (06:35→20:33)
[2020-07-05] MEDS: MONTELUKAST 10 MG TAB PO SCH ×2 (06:35→20:33)
[2020-07-05 07:06] LABS: HEMATOCRIT 32.8 % (36.0-47.0); HEMOGLOBIN 10.1 g/dl (12.0-15.5); MEAN CORPUSCULAR HEMOGLOBIN 28.6 pg (27.0-33.0); MEAN CORPUSCULAR HGB CONC 30.8 g/dl (32.0-36.5); MEAN CORPUSCULAR VOLUME 92.9 fl (80.0-96.0); PLATELET COUNT, AUTOMATED 234 10^3/uL (150-450); RED BLOOD COUNT 3.53 10^6/uL (4.00-5.40)
[2020-07-05 07:22] LABS: CALCIUM LEVEL 7.7 MG/DL (8.8-10.2); CREATININE FOR GFR 1.01 MG/DL (0.55-1.30); GLOMERULAR FILTRATION RATE 58.2 (>45); POTASSIUM SERUM 4.2 MEQ/L (3.5-5.1)
[2020-07-05] MEDS: ALBUTEROL SULFATE 2.5 MG/0.5 ML INH NEB SOLN INH SCH (07:42)
[2020-07-05] MEDS: FLUTICASONE PROP 0.05% NASAL SPRAY 16 GM (FLONASE) SCH (09:00)
[2020-07-05] MEDS: FOLIC ACID 1 MG TAB PO SCH (09:47)
[2020-07-05] MEDS: GABAPENTIN 300 MG CAP PO SCH ×3 (09:47→20:33)
[2020-07-05] MEDS: PANTOPRAZOLE 40MG TAB (PROTONIX) PO SCH ×2 (09:48→20:34)
[2020-07-05] MEDS: AMIODARONE 200 MG TAB (PACERONE) PO SCH (09:48)
[2020-07-05] MEDS: TOLTERODINE TARTRATE 2 MG LA CAP (DETROL LA) PO SCH (09:48)
[2020-07-05] MEDS: buPROPion **XL** TABLET 150MG (WELLBUTRIN XL) PO SCH (09:48)
[2020-07-05] MEDS: OLANZapine 2.5MG TABLET PO SCH ×2 (09:48→20:34)
[2020-07-05] MEDS: NORCO, ANEXSIA 5/325MG TABLET (HYDROcodone/ACETAMINOPHEN) PO PRN ×3 (09:49→22:07)
--- NOTE | 2020-07-05 10:27 | REP ---
INDICATION: right humeral head fracture s/p fall. COMPARISON: X-RAY 09/04/2019 TECHNIQUE: AXIAL SOFT TISSUE AND BONE WINDOWS WITH CORONAL AND SAGITTAL BONE WINDOW RECONSTRUCTIONS. FINDINGS: THE GREATER TUBEROSITY HUMERAL HEAD SHOWS A FRACTURE FROM ANTERIOR TO ITS MID POSTEROLATERAL ASPECT. THERE IS ONLY A FEW MM OF DISTRACTION OF THE LARGEST FRAGMENT LATERALLY WITHOUT SIGNIFICANT DISPLACEMENT AND NO ANGULATION. MULTIPLE SMALL NONDISPLACED CORTICAL FRAGMENTS ARE PRESENT AROUND THE MAJOR FRAGMENT. THE GLENOHUMERAL ARTICULATION WAS INTACT WITHOUT ARTICULAR FRACTURE, SUBLUXATION OR DISLOCATION. THE AC JOINT IS PRESERVED. THE SCAPULA, CLAVICLE AND RIBS SHOW NO EVIDENCE OF FRACTURE. SOME UNDERLYING FIBROSIS, LINEAR ATELECTATIC CHANGE OR SCARRING IN THE LUNG BERRIOS NOTED. IMPRESSION: 1. MILDLY COMMINUTED GREATER TUBEROSITY FRACTURE OF THE HUMERAL HEAD WITH THE LARGEST FRAGMENT LATERALLY AND MULTIPLE OTHER SMALL NONDISPLACED FRAGMENTS PRESENT A FEW MM OF DISTRACTION NOTED. 2. NO SUBLUXATION OR DISLOCATION THE AC JOINT, GLENOHUMERAL JOINT, SCAPULA, CLAVICLE AND RIBS WITHOUT VISIBLE FRACTURE. <Electronically signed by Fabrice Singh > 07/05/20 1022
[2020-07-05] MEDS: CHOLESTYRAMINE 4 GM PWD PKT PO SCH ×2 (11:58→18:58)
[2020-07-05 14:00] VITALS: BP 123/68
[2020-07-05] MEDS: NS 1,000 ML IV SCH ×2 (14:16→19:10)
--- NOTE | 2020-07-05 17:02 | ECGEPIP ---
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
[2020-07-05] MEDS ORDERED: zolPIDEM TARTRATE 5 MG TAB PO SCH (21:00)
[2020-07-05 22:00] VITALS: BP 147/68
[2020-07-05] MEDS: LACTOBACILLUS ACIDOPHILUS CAP (BACID) PO SCH (22:06)
[2020-07-05] MEDS: IPRATROPIUM HFA INHALER 12.9 GRAMS (ATROVENT HFA) INH SCH (22:18)
[2020-07-05 23:10] VITALS: BP 141/85
[2020-07-06] MEDS: NS 1,000 ML IV SCH (05:10)
[2020-07-06 06:00] VITALS: BP 130/67
[2020-07-06 06:15] LABS: HEMATOCRIT 31.6 % (36.0-47.0); HEMOGLOBIN 9.4 g/dl (12.0-15.5); MEAN CORPUSCULAR HEMOGLOBIN 27.8 pg (27.0-33.0); MEAN CORPUSCULAR HGB CONC 29.7 g/dl (32.0-36.5); MEAN CORPUSCULAR VOLUME 93.5 fl (80.0-96.0); PLATELET COUNT, AUTOMATED 206 10^3/uL (150-450); RED BLOOD COUNT 3.38 10^6/uL (4.00-5.40); WHITE BLOOD COUNT 8.1 10^3/uL (4.0-10.0)
[2020-07-06 06:43] LABS: BLOOD UREA NITROGEN 6 MG/DL (7-18); CALCIUM LEVEL 7.8 MG/DL (8.8-10.2); CARBON DIOXIDE LEVEL 26 MEQ/L (21-32); CHLORIDE LEVEL 112 MEQ/L (98-107); GLOMERULAR FILTRATION RATE > 60.0 (>45); GLUCOSE, FASTING 91 MG/DL (70-100); POTASSIUM SERUM 4.1 MEQ/L (3.5-5.1); SODIUM LEVEL 142 MEQ/L (136-145)
[2020-07-06] MEDS: IPRATROPIUM HFA INHALER 12.9 GRAMS (ATROVENT HFA) INH SCH (07:47)
[2020-07-06] MEDS: ALBUTEROL SULFATE 2.5 MG/0.5 ML INH NEB SOLN INH SCH (07:47)
[2020-07-06] MEDS: NORCO, ANEXSIA 5/325MG TABLET (HYDROcodone/ACETAMINOPHEN) PO PRN (09:18)
[2020-07-06] MEDS: FOLIC ACID 1 MG TAB PO SCH (09:18)
[2020-07-06] MEDS: OLANZapine 2.5MG TABLET PO SCH (09:18)
[2020-07-06] MEDS: TOLTERODINE TARTRATE 2 MG LA CAP (DETROL LA) PO SCH (09:19)
[2020-07-06] MEDS: AMIODARONE 200 MG TAB (PACERONE) PO SCH (09:19)
[2020-07-06] MEDS: GABAPENTIN 300 MG CAP PO SCH (09:19)
[2020-07-06] MEDS: PANTOPRAZOLE 40MG TAB (PROTONIX) PO SCH (09:19)
[2020-07-06] MEDS: LACTOBACILLUS ACIDOPHILUS CAP (BACID) PO SCH (09:19)
[2020-07-06 09:21] VITALS: BP 144/83
[2020-07-06] MEDS: amLODIPine 5 MG TAB PO SCH (09:21)
[2020-07-06] MEDS: FLUTICASONE PROP 0.05% NASAL SPRAY 16 GM (FLONASE) SCH (09:23)
[2020-07-06] MEDS: buPROPion **XL** TABLET 150MG (WELLBUTRIN XL) PO SCH (09:23)
[2020-07-06] MEDS: MORPHINE 2 MG/ML 1ML VIAL (J2270) IV PRN (10:16)
[2020-07-06] MEDS: CHOLESTYRAMINE 4 GM PWD PKT PO SCH (12:21)
--- NOTE | 2020-07-06 13:53 | DS.PDOC ---
Discharge Summary General Date of Admission Jul 05, 2020 at 04:54 Date of Discharge 07/06/20 Attending Physician: Selma Tabor MD Discharge Summary HISTORY OF PRESENT ILLNESS: 65F hx of paroxysmal Afib on eliquis, HTN, Scleroderma, fibromyalgia, chronic pain syndrome, recently underwent a subtotal colectomy on 03/28/20 for bowel ischemia with ostomy bag. Patient presented to the emergency department because of concern of perhaps having noticed blood in her ostomy bag. When I saw her she tells me she doesn't see the blood anymore. ED Dr. Manzano spoke with Dr. Hi song who will evaluate the patient in the morning. While in the emergency department patient told admitting physician she got up to use the washroom and decided she did not want use her walker and tripped on her feet and fell onto her right shoulder and head. In the emergency department CT head which does not show an acute intracranial abnormality per the radiologist's read. Cervical spine CT does not show acute vertebral fracture/subluxation. Right shoulder x-ray shows acute right humeral head fracture and Dr. Manzano placed her on a sling and recommended morning evaluation by orthopedics. CT abdomen does not show any acute pathology. HOSPITAL COURSE: Gen. surgery evaluated patient and stated that the patient will need follow-up with gastroenterology for upper and lower scope to further investigate source of bleeding. There was nothing emergent to be done this stay. Patient is well established with GI on the outside and will be following up with her after discharge. On their evaluation there was no blood in the ostomy bag. They felt that she could resume eliquis and aspirin after discharge. Orthopedic surgery also evaluated the patient and to continue toward the sling at all times. He also suggested icing the area with no lifting or reaching activities. The patient states to have fallen over the evening 07/05/2020 due to not being able to get to the bathroom fast enough. There were no new injury sustained. Due to controlled pain and follow-up in place, the patient was discharged on 07/06/2020 in improved condition. At the time of discharge the patient denied any chest pains, shortness of breath, fevers, chills, nausea, vomiting, abdominal pain. PAST MEDICAL HISTORY: Gastroesophageal reflux disease (GERD) Hyperlipidemia. Overactive bladder Depression. Carotid artery stenosis status post carotid endarterectomy. cerebrovascular accident (CVA) essential tremors endometriosis scleroderma SLE. Fibromyalgia. Aortic valve stenosis with chronic heart murmur. pulmonary hypertension. aortic abdominal aneurysm measuring 3.1 cm. PAST SURGICAL HISTORY: Bowel ischemia s/p subtotal colectomy with ileostomy Right carotid endarterectomy. cervical fusion. cholecystectomy. section. Hysterectomy. 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 She currently uses E-cigarettes. She quit tobacco 5 years ag o. She is presently retired. Does not use any alcohol or illicit drugs. FAMILY HISTORY: From chart review: Notable for a brother with mesothelioma. Mom in her mid 60s from pancreatic cancer and her father is living, in his 90s presently, who has history of renal carcinoma. ALLERGIES: Please see below. DISCHARGE MEDICATIONS: Please see below. PHYSICAL EXAMINATION: VS: Please see below Constitutional: Awake and alert, in no apparent distress ENT: Sclera are clear. Mucosa is moist. Respiratory: Lungs CTA bilaterally. No respiratory distress. No use of accessory muscles. Cardiovascular: RRR S1 and S2 are normal, no murmur Gastrointestinal: Abdomen is soft, non distended, non tender, BS present. Right- sided ileostomy bag with soft brown stool in no apparent blood or clots. Musculoskeletal: No edema. No ROM tested for RUE, full ROM of lower ext and RUE. Neurologic: No focal neurological deficit. Mental Status: A&O x3, normal affect Skin: Warm, dry Psych: Mood and affect appropriate LABORATORY DATA: See below. IMAGING: Imaging reviewed. See chart. MICROBIOLOGY: Please see below. ASSESSMENT: 65F hx of paroxysmal Afib on eliquis, HTN, Scleroderma, fibromyalgia, chronic pain syndrome, recently underwent a subtotal colectomy on 03/28/20 for bowel ischemia with ostomy bag admitted for GI bleed, right humeral head fracture s/p fall. PLAN: #. ? GI bleed, blood in ileostomy bag -S/p subtotal colectomy for ischemic colitis this summer -Per Dr. Do, no blood on bag when assessed. -Suggesting f/u with GI as o/p (already well established) for upper and lower scope -Held eliquis and ASA this admission; however, per surgery safe to resume after discharge. # R humeral head fx s/p fall -Ortho: keep in sling, no lifting or pulling. -pain control with norco and tylenol -To follow up with orthopedic surgery as o/p this week # Paroxysmal Afib -Rate controlled with current meds, holding eliquis. -Plans for loop recorder to be placed next week # HTN -C/w current meds # Dyslipidemia -statin # Fibromyalgia -Stable -C/w cymbalta, gabapentin, tylenol. # MDD -Denies HI/SI -Continue home meds # Hx of CVA -C/w asa/statin. DISPOSITION: D/c home today with f/u with PCP, GI and orthopedic surgery. TIME SPENT ON DISCHARGE: Greater than 30 minutes. Vital Signs/I&Os Vital Signs Date Time Temp Pulse Resp B/P (MAP) Pulse Ox O2 Delivery O2 Flow Rate FiO2 07/06/20 10:47 18 07/06/20 09:21 90 144/83 07/06/20 06:00 97.8 93 Room Air I&O- Last 24 Hours up to 6 AM 07/06/20 05:59 Intake Total 1630 ml Output Total 285 ml Balance 1345 ml Laboratory Data Labs 24H Laboratory Tests 2 07/06/20 05:53: Nucleated Red Blood Cells % (auto) 0.0, Anion Gap 4L, Glomerular Filtration Rate > 60.0, Calcium Level 7.8L CBC/BMP Laboratory Tests 07/06/20 05:53 Discharge Medications Scheduled Albuterol Sulf (Albuterol Sulfate) 2.5 Mg/3 Ml Vial.neb, 2.5 MG INH DAILY, (Reported) Amiodarone HCl (Amiodarone HCl) 200 Mg Tablet, 200 MG PO DAILY, (Reported) Apixaban (Eliquis) 5 Mg Tablet, 5 MG PO BID, (Reported) Aspirin (Aspirin) 81 Mg Tab.chew, 81 MG PO DAILY, (Reported) Bupropion HCl (Wellbutrin Xl) 150 Mg Tab.er.24h, 150 MG PO DAILY, (Reported) Celecoxib (Celebrex) 100 Mg Capsule, 100 MG PO BID, (Reported) Cholecalciferol (Vitamin D3) (Vitamin D3) 25 Mcg Tablet, 25 MCG PO DAILY, (Reported) Cholestyramine (with Sugar) (Cholestyramine Packet) 4 Gm Powd.pack, 2 GM PO BID, (Reported) 1100 and 1800 Duloxetine Hcl (Duloxetine HCl) 30 Mg Capsule.dr, 60 MG PO QHS, (Reported) Duloxetine Hcl (Duloxetine HCl) 30 Mg Capsule.dr, 30 MG PO QAM, (Reported) Esomeprazole Magnesium (Nexium) 40 Mg Capsule.dr, 40 MG PO BID, (Reported) Fluticasone Propionate (Fluticasone Propionate) 16 Gm [place].susp, 2 SPRAY NA DAILY, (Reported) Folic Acid (Folic Acid) 1 Mg Tablet, 1 MG PO DAILY, (Reported) Gabapentin (Gabapentin) 300 Mg Capsule, 300 MG PO TID, (Reported) L.acidoph/L.bulg/B.bif/S.therm (Jaquelin-Bid Caplet) 1 Each Tablet, 1 TAB PO BID, (Reported) Magnesium (Magnesium) 250 Mg Tablet, 250 MG PO DAILY, (Reported) Montelukast Sodium (Singulair) 10 Mg Tablet, 10 MG PO QHS, (Reported) Olanzapine (Olanzapine) 2.5 Mg Tablet, 2.5 MG PO BID, (Reported) Rosuvastatin Calcium (Rosuvastatin Calcium) 10 Mg Tablet, 10 MG PO QHS, (Reported) Tolterodine Tartrate (Detrol LA) 4 Mg Cap.er.24h, 4 MG PO DAILY, (Reported) Ubidecarenone (Co Q-10) 200 Mg Capsule, 100 MG PO DAILY, (Reported) Zolpidem Tartrate (Zolpidem Tartrate) 5 Mg Tablet, 5 MG PO QHS, (Reported) Scheduled PRN Hydrocodone/Acetaminophen (Hydrocodone-Acetamin 10-325 mg) 1 Each Tablet, 1 TAB PO BID PRN for PAIN, (Reported) Magnesium Hydroxide (Milk of Magnesia) 400 Mg/5 Ml Oral.susp, 30 M PO DAILY PRN for CONSTIPATION, (Reported) Metoclopramide HCl (Metoclopramide HCl) 5 Mg Tablet, 5 MG PO Q6H PRN for NAUSEA OR VOMITING, (Reported) Miscellaneous Medications [flovent] , (Reported) patient not sure on dose and not in external Allergies Coded Allergies: Penicillins (Verified Allergy, Severe, anaphylaxis, 06/18/20) pregabalin (Verified Allergy, Severe, ANAPHYLAXIS, 07/04/20) Cephalosporins (Verified Adverse Reaction, Severe, red man syndrome, 06/14/20) Selma Tabor MD Jul 06, 2020 13:53
--- NOTE | 2020-07-08 14:28 | CR ---
DATE OF CONSULTATION: 07/06/2020 REASON FOR CONSULTATION: Right proximal humerus fracture. HISTORY OF PRESENT ILLNESS: Mable is a pleasant right hand dominant 65-year-old female who was in the [facility] ER for bleeding of her stoma and unfortunately, she did fall in the ER landing on her right shoulder. X-rays in the emergency department revealed a proximal humerus fracture with mild displacement. The initial thought was that she could be discharged. I learned the next day that she was admitted to the hospitalist service so a consult was performed on 07/06/2020 and date of admission was 07/05/2020. In talking on the floor with the patient, she is reporting [id number] right shoulder pain improved with rest and worse with any movement. She denied numbness or tingling in her fingers. For the patients full past medical history, past surgical history, medications, allergies, social history, and review of systems, please see the admitting H&P, which I personally reviewed. PHYSICAL EXAMINATION: GENERAL: Reveals a well-appearing middle-aged female in no distress. Alert and oriented x3. Neurologic with appropriate mood and affect. She is very pleasant to talk to. CARDIOVASCULAR: 2+ radial pulse. PULMONARY: Nonlabored breathing. ABDOMEN: Nondistended. SKIN: Intact without open lesions. MUSCULOSKELETAL: The patient had a sling on the right arm. Proximal humerus was tender to palpation as expected. She could make a full fist and open her hand all the way. Sensation to light touch intact. No tenderness at the elbow. IMAGING: X-rays and CT scan of the right shoulder were reviewed. There was a mildly impacted fracture of the proximal humerus with involvement of the greater tuberosity on x-ray. On CT scan, there is a comminuted fracture of the greater tuberosity with very mild displacement and extension into the humeral head. ASSESSMENT/PLAN: Mable has a mildly displaced right proximal humerus fracture. We discussed operative and nonoperative treatment. I definitely recommend nonoperative treatment here. She has a chance to do very well as long as the fracture heals where it is. We discussed that the bone in this location is very soft and there would be a very high probability that it will settle somewhat. We discussed the importance of avoiding active range of motion of the shoulder to avoid the rotator cuff tendons displacing the tuberosity portion of the fracture. So really no role for surgery in my opinion and the patient agrees. She wants to proceed with nonoperative treatment. She understands that there is the chance that it does not heal. The patient was instructed on the importance of taking vitamin D, the importance of using her sling, and the plan would be for a sling for the first month and following up in one to two weeks with repeat x-rays and then, initiation of passive range of motion of the shoulder around the four week shahida. We could start some assisted range of motion around six to seven weeks as long as there is some callous formation. Active range of motion around eight weeks. I recommend holding off on any strengthening to 10-12 weeks depending on x-rays. So we will follow her in the office at [facility]. If we need to switch out her sling, we can get her a better fitting shoulder immobilizer. She was instructed to not put any rings onto the right hand for at least three weeks, and we discussed sleeping in a recliner if needed and icing. All of her questions were answered and she agrees to the plan. ED
== END 2020-07-06 12:46 | disposition home or self-care (01) | DRG 378 ==
LOC: M ED 21:34 → M ED INP 07-05 04:54 → ENRESERV 07-05 05:12 → M MSPAV 07-05 06:11 → ENRESERV 07-05 06:42 → M MS5PR 07-05 07:40 → M MSPAV 07-05 07:51
PROVIDERS: ADMIT Family Medicine; ATTEND Internal Medicine
DX: K92.2 Gastrointestinal hemorrhage, unspecified (principal); S42.251A Displaced fracture of greater tuberosity of right humerus, initial encounter for closed fracture; K21.9 Gastro-esophageal reflux disease without esophagitis; E78.5 Hyperlipidemia, unspecified; N32.81 Overactive bladder; F32.9 Major depressive disorder, single episode, unspecified; G25.0 Essential tremor; M79.7 Fibromyalgia; M32.9 Systemic lupus erythematosus, unspecified; M34.9 Systemic sclerosis, unspecified; I35.0 Nonrheumatic aortic (valve) stenosis; R01.1 Cardiac murmur, unspecified; I27.20 Pulmonary hypertension, unspecified; F17.290 Nicotine dependence, other tobacco product, uncomplicated; I71.4 Abdominal aortic aneurysm, without rupture; I10 Essential (primary) hypertension; I48.0 Paroxysmal atrial fibrillation; Z93.2 Ileostomy status; Z90.49 Acquired absence of other specified parts of digestive tract; Z98.1 Arthrodesis status; Z79.01 Long term (current) use of anticoagulants; Z79.82 Long term (current) use of aspirin; Z79.899 Other long term (current) drug therapy; Z88.0 Allergy status to penicillin; Z88.1 Allergy status to other antibiotic agents; Z88.8 Allergy status to other drugs, medicaments and biological substances; W18.09XA Striking against other object with subsequent fall, initial encounter; Y92.238 Other place in hospital as the place of occurrence of the external cause

== ENCOUNTER → 2020-08-28 | Outpatient (CLI) | payer MEDICARE, OTHER ==
[~2020-08-28] MED LIST changes: +AMLO1TAB24 PO; +ASPI1CHW3 PO; +CALC500T68 PO; +CHOL4POW4 PO; +FLUT44IN INH; +FLUTISP; +LASI20TA3 PO; +MILKSUS3 PO; +PROAAER10 INH; +RA T500C2 PO; +SM M250T PO; +THERTAB52 PO; +flovent
== END ==
LOC: M LABSMTC 13:35
PROVIDERS: ATTEND Anesthesiology
DX: Z01.812 Encounter for preprocedural laboratory examination (principal); Z20.828 Contact with and (suspected) exposure to other viral communicable diseases

== ENCOUNTER 2020-09-02 12:37 | Day surgery (SDC) | payer MEDICARE, OTHER ==
[~2020-09-02] VITALS: Ht 152.4 cm; Wt 58.5 kg
[~2020-09-02 12:37] MED LIST changes: +LR 1,000 ML IV ONE; +VANCOMYCIN HCL 1,000 MG, VIAL MATE ADAPTER 1 EACH in D5W 250 ML IV ONE
[2020-09-02] MEDS ORDERED: fentaNYL 100 MCG/2 ML INJECTION (J3010) As Ordered ONE (13:35)
[2020-09-02] MEDS ORDERED: LIDOCAINE 2% 100MG/5ML SDV (FOR ANES.) As Ordered ONE (13:35)
[2020-09-02] MEDS ORDERED: MIDAZOLAM INJ 2MG/2ML VIAL (J2250 PER 1MG) As Ordered ONE (13:35)
[2020-09-02] MEDS ORDERED: propofoL 200 MG/20 ML VIAL As Ordered ONE (13:35)
[2020-09-02] MEDS ORDERED: LIDOCAINE 1% SDV 30ML VIAL As Ordered ONE (14:01)
[2020-09-02 15:35] VITALS: BP 147/80
--- NOTE | 2020-09-03 09:22 | RO ---
OPERATIVE NOTE DATE OF OPERATION: 09/02/2020 PREOPERATIVE DIAGNOSIS: Atrial fibrillation monitoring (paroxysmal atrial fibrillation). POSTOPERATIVE DIAGNOSIS: Atrial fibrillation monitoring (paroxysmal atrial fibrillation). FINDINGS: Atrial fibrillation monitoring (paroxysmal atrial fibrillation). PROCEDURE PERFORMED: Implantation of a subcutaneous cardiac rhythm monitor (Medtronic). SURGEON: Chau Schulte MD NETWORK DEVELOPMENT COORDINATOR: None. ANESTHESIA: Lidocaine 1% local/monitored anesthetic care. SPECIMENS: None. ESTIMATED BLOOD LOSS: Less than 1 mL. No blood products given. DRAINS: None. BIOPSIES: None. COMPLICATIONS: None. PROCEDURE DESCRIPTION: The patient was prepped and draped over the sternum and left anterior chest. Lidocaine 1% was used for local anesthetic. An incision approximately 1 cm in length was made with a #15 blade through the skin at approximately the left fourth interspace but one inch lateral to the left parasternal border. The guide insertion tool was then placed into the incision and advanced into the subcutaneous tissue parallel to the chest wall in a left lateral-caudal direction. The insertion tool was rotated 180 degrees and then the plunger was used to advance the loop recorder into the subcutaneous tissue. The plunger was removed followed by removing the insertion tool. The initial R wave amplitude measured 0.70 millivolts. The incision was approximated temporarily using a 4-0 Biosyn subcuticular stitch with the free ends protruding 1 cm from either end of the incision on both sides. Three layers of Dermabond were applied and the suture was then pulled through the incision line and removed entirely. The patient tolerated the procedure well without any immediate complications. The implant loop recorder implanted was a [employer] Reveal LINQ, model LNQ11 with serial number [id number].
== END 2020-09-02 15:45 | disposition home or self-care (01) ==
LOC: M SDC 12:37
PROVIDERS: ATTEND Internal Medicine Cardiovascular Disease
DX: I48.0 Paroxysmal atrial fibrillation (principal); I10 Essential (primary) hypertension; I35.2 Nonrheumatic aortic (valve) stenosis with insufficiency; E78.2 Mixed hyperlipidemia; R94.31 Abnormal electrocardiogram [ECG] [EKG]; K21.9 Gastro-esophageal reflux disease without esophagitis; D64.9 Anemia, unspecified; M79.7 Fibromyalgia; Z79.82 Long term (current) use of aspirin; Z79.899 Other long term (current) drug therapy; Z79.01 Long term (current) use of anticoagulants; Z87.891 Personal history of nicotine dependence; Z88.0 Allergy status to penicillin; Z88.8 Allergy status to other drugs, medicaments and biological substances; Z88.1 Allergy status to other antibiotic agents
CPT/HCPCS: 33285; C1764; J2250; J3010; J3370

== ENCOUNTER → 2020-09-09 | Outpatient (CLI) | payer MEDICARE, OTHER ==
[~2020-09-09] MED LIST changes: +GABA-282 PO; -GABA-843 PO; -LR 1,000 ML IV ONE; +NEUR300C PO; -VANCOMYCIN HCL 1,000 MG, VIAL MATE ADAPTER 1 EACH in D5W 250 ML IV ONE; -VITA-145 PO; +VITAD1000T PO
== END ==
LOC: M LABSMTC 14:39
PROVIDERS: ATTEND Anesthesiology
DX: Z01.812 Encounter for preprocedural laboratory examination (principal); Z20.822 Contact with and (suspected) exposure to COVID-19

== ENCOUNTER → 2020-09-11 | Outpatient (CLI) | payer MEDICARE, OTHER ==
--- NOTE | 2020-09-11 09:09 | REPVR ---
PROCEDURE INFORMATION: Exam: CT Head Without Contrast Exam date and time: 09/11/2020 9:00 AM Age: 65 years old Clinical indication: Pain; Headache; Additional info: Unspecified abnormalities of gait and mobility TECHNIQUE: Imaging protocol: Computed tomography of the head without contrast. Radiation optimization: All CT scans at this facility use at least one of these dose optimization techniques: automated exposure control; mA and/or kV adjustment per patient size (includes targeted exams where dose is matched to clinical indication); or iterative reconstruction. COMPARISON: CT Head without contrast 07/05/2020 3:01 AM FINDINGS: Brain: There is no acute intracranial hemorrhage or mass effect. Moderate diffuse volume loss is within the range of normal for patient age. There are small vessel ischemic changes within the periventricular and subcortical white matter, but the normal rawls-white matter delineation is maintained. Cerebral ventricles: Prominence of the ventricular system is commensurate with volume loss. Bones/joints: Unremarkable. No acute fracture. Paranasal sinuses: Visualized sinuses are unremarkable. No fluid levels. Mastoid air cells: Visualized mastoid air cells are well aerated. Soft tissues: Unremarkable. IMPRESSION: No acute intracranial hemorrhage or edema. Electronically signed by: Muriel Gallegos On 09/11/2020 09:08:49 AM
== END ==
LOC: M RAD 08:33
PROVIDERS: ATTEND Physician Assistant
DX: R26.9 Unspecified abnormalities of gait and mobility (principal)

== ENCOUNTER 2020-09-19 01:20 | Emergency (ER) | payer MEDICARE, OTHER ==
[~2020-09-19] VITALS: Ht 152.4 cm; Wt 56.8 kg
[2020-09-19 01:22] VITALS: BP 166/95
--- OUTSIDE RECORDS SUMMARY | 2020-09-19 01:30 | CCD | Continuity of Care Document ---
Author Author Mable CHRISTENSEN Organization Unknown [place] [address] Phone [phone] Care Team Providers Care Policy Change Clerk Name Role Phone Elizabeth Sarkar D.O. 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 AUTM [phone] [facility]M [facility] AUTM [phone] Chioma Gorman AUTM [phone] Problems Active Problems Provider Date Mixed hyperlipidemia LEVI Melissa Onset: 01/25/2019 Insomnia LEVI Melissa Onset: 01/25/2019 Gastroesophageal reflux disease LEVI Melissa Onset: 01/25/2019 Coronary atherosclerosis LEVI Melissa Onset: 019 Osteoarthritis LEVI Melissa Onset: 01/25/2019 Essential hypertension LEVI Melissa Onset: 9 Urinary incontinence LEVI Melissa Onset: 01/25/2019 Fibromyalgia LEVI Melissa Onset: 01/25/2019 Constipation LEVI Melissa Onset: 01/25/2019 Disorder of connective tissue LEVI Melissa Onset: Other specified systemic involvement of connective tissue Mi LEVI Rose Onset: 06/29/2019 Paroxysmal atrial fibrillation LEVI Metzger Onset: Mild recurrent major depression LEVI Metzger Onset: 1 09/02/2019 Social History Type Date Description Comments Sex Unknown ETOH Use Denies alcohol use Tobacco Use Start: Unknown End: Patient is a former smoker Recreational Drug Use Denies Drug Use Smoking Uses Vape pen Smoking Status Reviewed: 02/19/19 Patient is a former smoker Exercise Type/Frequency Exercises regularly Stat ionary bike and swimming. Sun Exposure Uses sunscreen Seat Belt/Car Seat Always uses seat belt Allergies, Adverse Reactions, Alerts Active Allergies Reaction Severity Comments Date Penicillin anaphylaxis 01/15/2019 Cephalosporins Red Man Syndrome, Anaphylaxis 01/15/2019 Lyrica 06/19/2020 Medications Active Medications SIG Qnty Indications Ordering Provide r Date [facility] Home Sleep Study presence of Nocturnal hypoxia 1units R09 .02 Jatin Bernardo.OKristy 08/27/2020 Cholestyramine 4gm Packet 2 grams twice a day 120units Jatin Argueta.O. 08/27 Prednisone 5mg Tablets one tablet by mouth once a day 90tabs Jatin Argueta.O. 08/25 Esomeprazole Magnesium 40mg Capsul es DR 1 capsule twice a day by mouth every day 180caps Elizabeth Lindo D.O. 07/03/2020 Flonase Allergy Relief 50mcg/Act Suspension two sprays in each nostril once daily 18.200ml Jatin Burks.OKristy 06/17/2020 Metoclopramide HCL 5mg Tablets 1 by mouth every 4-6 hours as needed for nausea 42tabs Jatin Louise.O. 06/11/2020 Wellbutrin XL 150mg Tablets ER 24H R take one tablet by mouth once a day 90tabs Jatin Phan.O. 12/18/2019 Singulair 10mg Tablets 1 by mouth every day 90tabs Jatin Argueta.O. 11/29 Albuterol Sulfate HFA 108(90Base) mcg/Act Aerosol 1-2 puffs every 4-6 hours as needed for shortness of breath 25.5 gm J20.9 Elizabeth Sarkar D.O. 11/29/2019 Pro Comfort Inhaler Spacer Chamber Adult Misc to be used in combination with Mdi 1units Jatin Chaudhry.O. 11/29/2019 Zolpidem Tartrate 5mg Tablets take one - two tablet by mouth an hour before bedtime as needed. ensure at least 8 hours of sleep istop: [id number] 60tabs Jatin Argueta.O . 11/15/2019 Gabapentin 300mg Capsules 2 in the am 1 in the pm and 2 at bedtime 270caps Jatin Argueta. O. 07/23/2019 Premarin 0.625mg/GM Cream apply 1/2 gram topically to vagina as needed 90gm N95.2 Elizabeth Linares er, D.O. 02/19/2019 Amlodipine Besylate 5mg Tablets 1 by mouth every day 90tabs Jatin Argueta.O. Liquid Calcium With D3 Maximum Strength [id number] Capsules Unknown 0 Aspirin Ec Low Dose 81mg Tablets D R one by mouth every day 90tabs Jatin Argueta.O. Eliquis 5mg Tablets take one tablet by mouth twice a day 60tabs Jatin Argueta.O. Jaquelin-bid Probiotic Tablets 1 by mouth every three times day 270tabs Jatin Argueta.O. Folic Acid 1mg Tablets 1 by mouth every day 90tabs Jatin Argueta.O. Rosuvastatin Calcium 10mg Tablets take one tablet by mouth each night 90tabs Jatin Argueta.O. Turmeric 500mg Capsules one tablet by mouth once per day Unknown Celecoxib 100mg Capsules 1 tab by mouth twice a day 180caps Christopher ArguetaO. Tolterodine Tartrate ER 4mg Caps E R 24HR 1 tab by mouth daily 90caps Jatin Argueta.O. Duloxetine HCL 30mg Caps DR Part 2 tab by mouth in the morning and 1 tabs in the evening 360caps Elizabeth Sarkar D.O. Docusate Sodium 100mg Capsules 1 cap by mouth twice a day 180caps Christopher ArguetaO. Hydrocodone-Acetaminophen 10-325mg Tablets Take One - 2 Tablet By Mouth Every 6 Bimal rs as Needed Maximum Daily Dose 8 Tablets Unknown Osteo Bi-Flex Advanced Double Strength W ith Joint Shield Tablets take 2 tablets by mouth every day Unknown Multivitamin Women 50+ 50+ Tablets Unknown Vitamin D3 1000Unit Capsules 1 by mouth every day Unknown Co Q 10 100mg Capsules 1 by mouth every day Unknown History Medications Prednisone 20mg Tablets 1 tab by mouth daily x 5 days 5tabs Christopher ArguetaO. 08/18 - 08/25/2020 Nocturnal Oximetry Spo2 Monitor Increased desaturations at home. 1u nits R06.00 Christopher ArguetaO. 08/07/2020 - 09/09/2020 Lasix 20mg Tablets 1 by mouth once a day as needed for edema 90tabs Christopher ArguetaO. 1 09/07/2019 - 09/09/2020 Flovent HFA 44mcg/Act Aerosol take 2 puffs twice daily as needed 10.600gm R06.00 Christopher ArguetaO. 07/03/2020 - 09/09/2020 Cipro 500mg Tablets 1 tablet every 12 hours for 7 days 14tabs Christopher ArguetaO. 10/0 02/2020 - 06/19/2020 Macrobid 100mg Capsules one capsule by mouth daily for ten days 20caps Jatin ArguetaO. 06/03/2020 - 06/04/2020 Prevnar 13 Suspension administer at pharmacy .500ml Christopher ArguetaO. 04/10 - 05/29/2020 Shingrix 50mcg/0.5ML Suspension Re c administer shingrix vaccine at pharmacy 1units Christopher WalkerOKristy 04/10/2020 - 05/29/2020 Medications Administered in Office Medication SIG Qnty Indications Ordering Provider Date Injection Methylprednisolone Acetate 80 MG Injection LEVI Metzger 12/04/19 20 Immunizations Description No Information Available Vital Signs Date Vital Result Comment 09/09/2020 3:16pm BP Systolic 136 mmHg BP Diastolic 70 mmHg Height 60.2 inches 5'0.20" Weight 127.00 lb BMI (Body Mass Index) 24.6 kg/m2 Heart Rate 87 /min Respiratory Rate 20 /min Body Temperature 98.7 F O2 % BldC Oximetry 99 % [place] Body Weight 100 lb 08/07/2020 1:12pm BP Systolic 124 mmHg BP Diastolic 70 mmHg Height 60.2 inches 5'0.20" Heart Rate 85 /min Respiratory Rate 18 /min Body Temperature 97.4 F O2 % BldC Oximetry 96 % [place] Body Weight 100 lb Results Test Acquired Date Facility Test Result H/L Range Note CBC With Differential 07/04/2020 [facility] Outpatient Sherly ting (Registration) [address] [place] [address] [phone] White Blood Count 7.5 10 Normal 4.0-10.0 Red Blood Count 3.68 10 Low 4.00-5.40 Hemoglobin 10.3 g/dL Low 12.0-15.5 Hematocrit 34.2 % Low 36.0-47.0 Mean Corpuscular Volume 92.9 fl Normal 80.0-96.0 Mean Corpuscular Hemoglobin 28.0 pg Normal 27.0-33.0 Mean Corpuscular HGB Conc 30.1 g/dL Low 32.0-36.5 Red Cell Distribution Width 16.3 % High 11.5-14.5 Platelet Count, Automated 254 10 Normal 150-450 Nucleated Red Blood Cell % 0.0 % Normal 0-0 Prothrombin Time/Inr 07/04/2020 [facility] Outpatient Test ing (Registration) [address] [place] [address] [phone] Prothrombin Time 13.3 seconds Normal 12.5-14.3 Inr 0.99 Normal 1 Liver Profile 07/04/2020 [facility] Outpatient Testi ng (Registration) [address] [place] [address] [phone] Ast/Sgot 13 U/L Normal 7-37 Alt/SGPT 15 U/L Normal 12-78 Alkaline Phosphatase 75 U/L Normal 45-117 Bilirubin,Total 0.2 mg/dL Normal 0.2-1.0 Bilirubin,Direct < 0.1 mg/dL Normal 0.0-0.2 Total Protein 6.4 GM/DL Normal 6.4-8.2 Albumin 3.4 GM/DL Normal 3.2-5.2 Albumin/Globulin Ratio 1.1 Low 1.2-2.2 Basic Metabolic Profile 07/04/2020 [facility] Outpatient T esting (Registration) [address] [place] [address] [phone] Glucose, Fasting 85 mg/dL Normal 70-100 Blood Urea Nitrogen 9 mg/dL Normal 7-18 Creatinine For GFR 1.27 mg/dL Normal 0.55-1.30 Glomerular Filtration Rate 44.7 Low >45 2 Sodium Level 133 mEq/L Low 136-145 Potassium Serum 4.3 mEq/L Normal 3.5-5.1 Chloride Level 100 mEq/L Normal 98-107 Carbon Dioxide Level 27 mEq/L Normal 21-32 Anion Gap 6 mEq/L Low 8-16 Calcium Level 8.3 mg/dL Low 8.8-10.2 Laboratory test finding 07/04/2020 [facility] Outpatient T esting (Registration) [address] [place] [address] [phone] Lipase 69 U/L Low 73-393 Differential 07/04/2020 [facility] Outpatient Testi ng (Registration) [address] [place] [address] [phone] Neutrophils 46 % Normal 28-66 Bands 1 % Normal < 11 Lymphocytes 43 % Normal 16-44 Monocytes 4 % Normal 0-5 Eosinophils 4 % High 0-3 Metamyelocytes 2 % High 0-0 Hypochromasia 1+ Normal Anisocytosis 1+ Normal Laboratory test finding 07/04/2020 [facility] Outpatient T esting (Registration) [address] [place] [address] [phone] Platelet Estimate NORMAL Normal Normal Ua Routine 06/03/2020 [facility] nter [address] [place] [address] [phone] Appearance, Urine CLOUDY High Clear Color, Urine YELLOW Normal Yellow PH,Urine 6.0 units Normal 5.0-9.0 Specific [place] Urine Auto 1.008 Normal 1.002-1.035 Protein, Urine Auto 1+ mg/dL High Negative Glucose, Urine (Ua) Auto NEGATIVE mg/dL Normal Negative Ketone, Urine Auto NEGATIVE mg/dL Normal Negative Urobilinogen, Urine Auto 0.2 mg/dL Normal 0.0-2.0 Bilirubin, Urine Auto NEGATIVE Normal Negative Nitrite, Urine Auto POSITIVE Normal Negative Leukocyte Esterase, Urine Auto 3+ High Negative Blood, Urine Blood 2+ High Negative WBC, Urine Auto TNTC /HPF High 0-3 RBC, Urine Auto 27 /HPF High 0-3 Bacteria, Urine Auto 3+ High Negative Squamous Epithelial Cell Ur AU 0 /HPF Normal 0-6 Mucus, Urine SMALL Normal Negative Hyaline Cast, Urine Auto 0 /LPF Normal 0-1 Laboratory test finding 06/03/[address] [address] [phone] Urine Culture FULL REPORT IN L <SEE NOTE> Normal 3 Randa Titer & Pattern 06/02/[address] [address] [phone] Randa (Hep2) Negative Normal . 4 Amiodarone Level 06/02/[address] [address] [phone] Amiodarone (Cordarone) 1.1 ug/mL Normal 1.0-2.5 5 Noramiodarone Level 0.8 ug/mL Low 1.0-2.5 6 FT4&TSH Panel 06/02/[address] [address] [phone] Thyroid Stimulating Hormone 6.210 uIU/ML High 0. 358-3.740 Free T4 1.85 ng/dL High 0.76-1.46 Laboratory test finding 06/02/[address] [address] [phone] Lipase 82 U/L Normal 73-393 Total Iron Binding Capacit 06/02/[address] [address] [phone] Iron (Fe) 37 g/dL Low 50-170 Total Iron Binding Capacity 223 g/dL Low 250-450 Percent Saturation 16.6 % Normal 13.2-45.0 CBC With Differential 06/02/[address] [address] [phone] White Blood Count 8.6 10 Normal 4.0-10.0 Red Blood Count 3.42 10 Low 4.00-5.40 Hemoglobin 9.7 g/dL Low 12.0-15.5 Hematocrit 31.3 % Low 36.0-47.0 Mean Corpuscular Volume 91.5 fl Normal 80.0-96.0 Mean Corpuscular Hemoglobin 28.4 pg Normal 27.0-33.0 Mean Corpuscular HGB Conc 31.0 g/dL Low 32.0-36.5 Red Cell Distribution Width 16.5 % High 11.5-14.5 Platelet Count, Automated 208 10 Normal 150-450 Neutrophils % 63.0 % Normal 36.0-66.0 Lymph % 19.6 % Low 24.0-44.0 [place] % 10.1 % High 0.0-5.0 Eos % 6.3 % High 0.0-3.0 Baso % 0.4 % Normal 0.0-1.0 Immature Granulocyte % 0.6 % Normal 0-3.0 Nucleated Red Blood Cell % 0.0 % Normal 0-0 Neutrophils # 5.4 10 Normal 1.5-8.5 Lymph # 1.7 10 Normal 1.5-5.0 [place] # 0.9 10 High 0.0-0.8 Eos # 0.5 10 Normal 0.0-0.5 Baso # 0.0 10 Normal 0.0-0.2 Laboratory test finding 06/02/[address] [address] [phone] C Reactive Protein Quantitativ 0.96 mg/dL High 0 .00-0.30 Liver Profile 06/02/2020 [facility] nter [address] [place] [address] [phone] Ast/Sgot 15 U/L Normal 7-37 Alt/SGPT 14 U/L Normal 12-78 Alkaline Phosphatase 76 U/L Normal 45-117 Bilirubin,Total 0.3 mg/dL Normal 0.2-1.0 Bilirubin,Direct 0.1 mg/dL Normal 0.0-0.2 Total Protein 6.1 GM/DL Low 6.4-8.2 Albumin 2.7 GM/DL Low 3.2-5.2 Albumin/Globulin Ratio 0.8 Low 1.2-2.2 Basic Metabolic Profile 06/02/[address] [address] [phone] Glucose, Fasting 71 mg/dL Normal 70-100 Blood Urea Nitrogen 6 mg/dL Low 7-18 Creatinine For GFR 0.86 mg/dL Normal 0.55-1.30 Glomerular Filtration Rate > 60.0 Normal >45 7 Sodium Level 126 mEq/L Low 136-145 Potassium Serum 4.4 mEq/L Normal 3.5-5.1 Chloride Level 94 mEq/L Low 98-107 Carbon Dioxide Level 23 mEq/L Normal 21-32 Anion Gap 9 mEq/L Normal 8-16 Calcium Level 8.5 mg/dL Low 8.8-10.2 Laboratory test finding 06/02/[address] [address] [phone] Magnesium Level 1.3 mg/dL Low 1.8-2.4 Laboratory test finding 04/02/2020 [facility] Outpatient T esting (Registration) [address] [place] [address] [phone] Partial Thromboplastin Time 108.7 seconds High 2 5.0-38.4 Laboratory test finding 04/02/2020 [facility] Outpatient T esting (Registration) [address] [place] [address] [phone] Partial Thromboplastin Time 45.1 seconds High 25 .0-38.4 Laboratory test finding 04/02/2020 [facility] Outpatient T esting (Registration) [address] [place] [address] [phone] Partial Thromboplastin Time 95.8 seconds High 25 .0-38.4 Type & Screen -Incl Blood Type,[place],AB SC 03/28/2020 [facility] Outpatient Testing (Registration) [address] [place] [phone] Blood Type B POSITIVE Normal AB Screen (Indirect Sara)Vis NEGATIVE Normal Laboratory test finding 03/28/2020 [facility] Outpatient T esting (Registration) [address] [place] [address] [place] [id number] [phone] Packed Cells TRANSFUSED PRODU <SEE NOTE> 8 Complete Blood Count 03/28/2020 [facility] Outpatient Test ing (Registration) [address] [place] [address] [phone] White Blood Count 19.8 10 High 4.0-10.0 Red Blood Count 4.98 10 Normal 4.00-5.40 Hemoglobin 14.8 g/dL Normal 12.0-15.5 Hematocrit 47.1 % High 36.0-47.0 Mean Corpuscular Volume 94.6 fl Normal 80.0-96.0 Mean Corpuscular Hemoglobin 29.7 pg Normal 27.0-33.0 Mean Corpuscular HGB Conc 31.4 g/dL Low 32.0-36.5 Red Cell Distribution Width 14.7 % High 11.5-14.5 Platelet Count, Automated 335 10 Normal 150-450 Nucleated Red Blood Cell % 0.0 % Normal 0-0 Comprehensive Metabolic Profil 03/28/2020 [facility] Outpa tient Testing (Registration) [address] [place] [address] [phone] Glucose, Fasting 130 mg/dL High 70-100 Blood Urea Nitrogen 36 mg/dL High 7-18 Creatinine For GFR 1.77 mg/dL High 0.55-1.30 Glomerular Filtration Rate 30.5 Low >45 9 Sodium Level 136 mEq/L Normal 136-145 Potassium Serum 7.2 mEq/L Critical high 3.5-5.1 10 Chloride Level 108 mEq/L High 98-107 Carbon Dioxide Level 17 mEq/L Low 21-32 Anion Gap 11 mEq/L Normal 8-16 Calcium Level 7.9 mg/dL Low 8.8-10.2 Ast/Sgot 31 U/L Normal 7-37 Alt/SGPT 22 U/L Normal 12-78 Alkaline Phosphatase 67 U/L Normal 45-117 Bilirubin,Total 1.3 mg/dL High 0.2-1.0 Total Protein 5.4 GM/DL Low 6.4-8.2 Albumin 2.5 GM/DL Low 3.2-5.2 Albumin/Globulin Ratio 0.9 Low 1.2-2.2 Laboratory test finding 03/28/2020 [facility] Outpatient T esting (Registration) [address] [place] [address] [phone] Magnesium Level 5.5 mg/dL Critical high 1.8-2.4 PT & Aptt 03/27/2020 [facility] Outpatient Testi ng (Registration) [address] [place] [address] [phone] Prothrombin Time 15.2 seconds High 11.8-14.0 Inr 1.17 Normal 11 Partial Thromboplastin Time 35.4 seconds Normal 25.0-38.4 CBC With Differential 03/27/2020 [facility] Outpatient Sherly ting (Registration) [address] [place] [address] [phone] White Blood Count 14.4 10 High 4.0-10.0 Red Blood Count 4.86 10 Normal 4.00-5.40 Hemoglobin 14.5 g/dL Normal 12.0-15.5 Hematocrit 44.6 % Normal 36.0-47.0 Mean Corpuscular Volume 91.8 fl Normal 80.0-96.0 Mean Corpuscular Hemoglobin 29.8 pg Normal 27.0-33.0 Mean Corpuscular HGB Conc 32.5 g/dL Normal 32.0-36.5 Red Cell Distribution Width 14.0 % Normal 11.5-14.5 Platelet Count, Automated 248 10 Normal 150-450 Neutrophils % 74.4 % High 36.0-66.0 Lymph % 10.9 % Low 24.0-44.0 [place] % 13.9 % High 0.0-5.0 Eos % 0.3 % Normal 0.0-3.0 Baso % 0.2 % Normal 0.0-1.0 Immature Granulocyte % 0.3 % Normal 0-3.0 Nucleated Red Blood Cell % 0.0 % Normal 0-0 Neutrophils # 10.7 10 High 1.5-8.5 Lymph # 1.6 10 Normal 1.5-5.0 [place] # 2.0 10 High 0.0-0.8 Eos # 0.0 10 Normal 0.0-0.5 Baso # 0.0 10 Normal 0.0-0.2 Laboratory test finding 03/27/2020 [facility] Outpatient T esting (Registration) [address] [place] [address] [phone] Coronavirus 2019 Nasopharygeal <pending> Sars Covid-19 Amplification NEGATIVE Normal Negative 12 Sars Covid-19 Amplification <pending> Sars Covid-19 Amplification <pending> Sars Covid-19 Amplification <pending> Sars Covid-19 Amplification <pending> Sars Covid-19 Amplification <pending> Sars Covid-19 Amplification <pending> Sars Covid-19 Amplification <pending> Sars Covid-19 Amplification <pending> Sars Covid-19 Amplification <pending> Sars Covid-19 Amplification <pending> Sars Covid-19 Amplification <pending> Sars Covid-19 Amplification <pending> Sars Covid-19 Amplification <pending> Sars Covid-19 Amplification <pending> Sars Covid-19 Amplification <pending> Sars Covid-19 Amplification <pending> Sars Covid-19 Amplification <pending> Sars Covid-19 Amplification <pending> Sars Covid-19 Amplification <pending> Sars Covid-19 Amplification <pending> Sars Covid-19 Amplification <pending> Sars Covid-19 Amplification <pending> Sars Covid-19 Amplification <pending> 1 THERAPUTIC HUMAN INR VALUES INDICATIONS NORMAL RANGES PROPHYLAXIS/TREATMENT OF: VENOUS THROMBOSIS 2.0-3.0 PULMONARY EMBOLISM 2.0-3.0 PREVENTION OF SYSTEMIC EMBOLISM FROM: TISSUE HEART VALVES 2.0-3.0 ACUTE MYOCARDIAL INFARCTION 2.0-3.0 VALVULAR HEART DISEASE 2.0-3.0 ATRIAL FIBRILLATION 2.0-3.0 MECHANICAL VALVES(HIGH RISK) 2.5-3.5 RECURRENT MYOCARDIAL INFARCTION 2.5-3.5 2 Units are mL/min/1.73 m2 Chronic Kidney Disease Staging per NKF: Stage I & II GFR >=60 Normal to Mildly Decreased Stage III GFR 30-59 Moderately Decreased Stage IV GFR 15-29 Severely Decreased Stage V GFR <15 Very Little GFR Left ESRD GFR <15 on ELEVATING GRADER OPERATOR 3 FULL REPORT IN LAB NOTES (eC W and [facility]). ORGANISM 1: KLEBSIELLA PNEUMONIAE COLONY COUNT >100,000 ORGANISM 1: KLEBSIELLA PNEUMONIAE KLEBSIELLA PNEUMONIAE: REACTION TRIMETHOPRIM/SULFAMETHOXAZOLE IV 160mg TMP & 800mg SMXq6h <=20 S TRIMETHOPRIM/SULFAMETHOXAZOLE PO Bactrim DS Bid <=20 S AMPICILLIN IV 500mg q6h >=32 R AMPICILLIN PO 500mg q6h fasting >=32 R GENTAMICIN IV 80mg q8h <=1 S NITROFURANTOIN PO 100mg BID 128 R CEFAZOLIN IV 1gm q8h <=4 S LEVOFLOXACIN IV 500mg qd <=0.12 S LEVOFLOXACIN PO 250mg qd <=0.12 S LEVOFLOXACIN PO 500mg qd <=0.12 S TOBRAMYCIN IV 80mg q8h <=1 S CEFTRIAXONE IV 1gm q24h <=1 S CEFTAZIDIME IV 1gm q8h <=1 S AMPICILLIN/SULBACTAM IV 1.5g q6h 4 S PIPERACILLIN/TAZOBACTAM IV 2.25 gm q6h <=4 S AZTREONAM IV 1gm q8h <=1 S ERTAPENEM IV 1gm qd <=0.5 S MEROPENEM IV 1 gm q8h <=0.25 S MEROPENEM IV 500 mg q8h <=0.25 S TIGECYCLINE IV 50mg q12h 2 S CEFEPIME IV 1 gm q12h <=1 S CEFEPIME IV 2 gm q12h <=1 S EXTD BRD SPCTRM BETA LACTAMASE IV NEGATIVE FOR ESBL 4 Negative <1:80 Borderline 1:80 Positive >1:80 Performed at: [facility] [address] [id number] Doctor Of Audiology: Javier Scott MD, Phone: [phone] Performed at: [facility] [address] [id number] Doctor Of Audiology: Tammy Sarmiento MD, Phone: [phone] This test was developed and its performance characteristics determined by [facility] It has not been cleared or approved by the Food and Drug Administration. Detection Limit = 0.2 6 This test was developed and its performance characteristics determined by [facility]. It has not been cleared or approved by the Food and Drug Administration. Detection Limit = 0.2 7 Units are mL/min/1.73 m2 Chronic Kidney Disease Staging per NKF: Stage I & II GFR >=60 Normal to Mildly Decreased Stage III GFR 30-59 Moderately Decreased Stage IV GFR 15-29 Severely Decreased Stage V GFR <15 Very Little GFR Left ESRD GFR <15 on ELEVATING GRADER OPERATOR 8 TRANSFUSED PRODUCT: PACKED C ELLS COUNT: 2 9 Units are mL/min/1.73 m2 Chronic Kidney Disease Staging per NKF: Stage I & II GFR >=60 Normal to Mildly Decreased Stage III GFR 30-59 Moderately Decreased Stage IV GFR 15-29 Severely Decreased Stage V GFR <15 Very Little GFR Left ESRD GFR <15 on ELEVATING GRADER OPERATOR 10 This specimen has an elevate d potassium level but there is NO visible hemolysis noted. 11 THERAPUTIC HUMAN INR VALUES INDICATIONS NORMAL RANGES PROPHYLAXIS/TREATMENT OF: VENOUS THROMBOSIS 2.0-3.0 PULMONARY EMBOLISM 2.0-3.0 PREVENTION OF SYSTEMIC EMBOLISM FROM: TISSUE HEART VALVES 2.0-3.0 ACUTE MYOCARDIAL INFARCTION 2.0-3.0 VALVULAR HEART DISEASE 2.0-3.0 ATRIAL FIBRILLATION 2.0-3.0 MECHANICAL VALVES(HIGH RISK) 2.5-3.5 RECURRENT MYOCARDIAL INFARCTION 2.5-3.5 12 A false negative result may occur if a specimen is improperly collected, transported or handled. False negative results may also occur if inadequate numbers of organisms are present in the specimen. As with any molecular test, mutations within the target regions of Xpert Xpress SARS-CoV-2 could affect primer and/or probe binding resulting in failure to detect the presence of virus. This test cannot rule out diseases caused by other bacterial or viral pathogens. DISCLAIMER: Testing was performed using the [employer] SARS-CoV-2 test. This test was developed and its performance characteristics determined by [employer]. This test has not been FDA cleared or approved. This test has been authorized by FDA under an Emergency Use Authorization (EUA). This test is only authorized for the duration of time the declaration that circumstances exist justifying the authorization of the emergency use of in vitro diagnostic tests for detection of SARS-CoV-2 virus and/or diagnosis of COVID-19 infection under section 564(b)(1) of the Act, 21 U.S.C. 360bbb-3(b)(1), unless the authorization is terminated or revoked sooner. Procedures Description No Information Available Medical Devices Description No Information Available Encounters Type Date Location Provider Dx Diagnosis Office Visit 09/09/2020 3:30p [facility] LEVI Metzger R26.9 Unspecified abnormalities of gait and mobility I10 Essential (primary) hyperten opal I48.0 Paroxysmal atrial fibrillati on I49.5 Sick sinus syndrome M79.7 Fibromyalgia F33.0 Major depressive disorder, r ecurrent, mild E78.2 Mixed hyperlipidemia G47.8 Other sleep disorders Z79.899 Other care home (current) dr saleem therapy Z79.82 half-way (current) use of a spirin Z79.01 half-way (current) use of a nticoagulants Office Visit 08/07/2020 1:00p [facility] LEVI Metzger R06.00 Dyspnea, unspecified Office Visit 07/23/2020 10:00a [facility] LEVI Metzger I10 Essential (primary) hyperten opal I48.0 Paroxysmal atrial fibrillati on M79.7 Fibromyalgia S42.201D Unsp fx upper end of r yolanda , subs for fx w harish heal Office Visit 07/03/2020 3:00p [facility] LEVI Metzger E44.1 Mild protein-calorie malnutr ition R06.00 Dyspnea, unspecified Z79.899 Other terminal system operator (current) dr saleem therapy Z79.82 half-way (current) use of a spirin K21.9 Gastro-esophageal reflux dis ease without esophagitis F33.0 Major depressive disorder, r ecurrent, mild Office Visit 06/19/2020 1:30p [facility] LEVI Metzger E87.1 Hypo-osmolality and hyponatr emia E83.42 Hypomagnesemia E44.1 Mild protein-calorie malnutr ition Z79.82 terminal system operator (current) use of a spirin Z79.899 Other terminal system operator (current) dr saleem therapy R06.00 Dyspnea, unspecified Office Visit 05/29/2020 2:40p 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 Assessments Date Code Description Provider 09/09/2020 R26.9 Unspecified abnormalities of gai t and mobility LEVI Metzger 09/09/2020 I10 Essential (primary) hypertension LEVI Metzger 09/09/2020 I48.0 Paroxysmal atrial fibrillation LEVI Rain 09/09/2020 I49.5 Sick sinus syndrome LEVI Anthony 09/09/2020 M79.7 Fibromyalgia LEVI Metzger 09/09/2020 F33.0 Major depressive disorder, recur rent, mild LEVI Metzger 09/09/2020 E78.2 Mixed hyperlipidemia LEVI Ortiz 09/09/2020 G47.8 Other sleep disorders LEVI Nguyen 09/09/2020 Z79.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 LEVI Metzger 09/09/2020 Z79.82 half-way (current) use of aspir in LEVI Metzger 09/09/2020 Z79.01 half-way (current) use of antic oagulants LEVI Metzger 08/07/2020 R06.00 Dyspnea, unspecified LEVI Ortiz 07/23/2020 I10 Essential (primary) hypertension LEVI Metzger 07/23/2020 I48.0 Paroxysmal atrial fibrillation LEVI Rain 07/23/2020 M79.7 Fibromyalgia LEVI Metzger 07/23/2020 S42.201D Unspecified fracture of upper end of right humerus, subsequent encounter for fracture with routine healing LEVI Metzger 07/03/2020 E44.1 Mild protein-calorie malnutritio n LEVI Metzger 07/03/2020 R06.00 Dyspnea, unspecified LEVI Ortiz 07/03/2020 Z79.899 Other care home (current) drug t herapy LEVI Metzger 07/03/2020 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 LEVI Metzger 07/03/2020 K21.9 Gastro-esophageal reflux disease without esophagitis LEVI Metzger 07/03/2020 F33.0 Major depressive disorder, recur rent, mild LEVI Metzger 06/19/2020 E87.1 Hypo-osmolality and hyponatremia LEVI Metzger 06/19/2020 E83.42 Hypomagnesemia LEVI Metzger 06/19/2020 E44.1 Mild protein-calorie malnutritio n LEVI Metzger 06/19/2020 Z79.82 half-way (current) use of aspir in LEVI Metzger 06/19/2020 Z79.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 LEVI Metzger 06/19/2020 R06.00 Dyspnea, unspecified LEVI Ortiz 05/29/2020 R10.84 Generalized abdominal pain Jatinder LEVI Johnson 05/29/2020 I48.0 Paroxysmal atrial fibrillation Sandra aravindanoop LEVI Christensen 05/29/2020 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 She has weakness of her body generalized but noted to be worse in the LLE. She has a large hematoma to the left upper arm from a recent fall from sitting and unsteady gait. 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 Please evaluate and treat for weakness and deconditioning of LE and her unsteady gait. Please evaluate and treat LUE due to recent fall and pain in left upper arm. Closed [address] [place] [id number] [phone] [facility] had recent issue s with ischemic bowel, bowel resection, colostomy bag and fracture of right upper humerus on 07/05/20. She has weakness of her body generalized but noted to be worse in the LLE. She has a large hematoma to the left upper arm from a recent fall from sitting and unsteady gait. She is her right arm in a sling care home with muscle atrophy of the RUE and PT for upper extremity pending ortho clearance. Please evaluate and treat for weakness and deconditioning of LE and her unsteady gait. Please evaluate and treat LUE due to recent fall and pain in left upper arm. Closed [address] [place] [id number] [phone] SherifChioma Emi Riley has auto immune disease, recent colectomy, and history of depression which has been worse with her chronic disease. Interested in virtual counseling Sent [address] [place] [address] [address] [place] [address] [phone]
--- OUTSIDE RECORDS SUMMARY | 2020-09-19 01:30 | CCD | Continuity of Care Document ---
Author Author Mable IBARRA MD Organization Unknown Address [facility] [address] [address] Phone [phone] Care Team Providers Care Administrative Aide Name Role Phone Luis Fernando Banks MD AUT [phone] Problems Description No Information Available Social History Type Date Description Comments Sex Unknown ETOH Use Denies alcohol use Tobacco Use Start: Unknown End: Unknown Patient is a former smoker Smoking Status Reviewed: 09/09/20 Patient is a former smoker Allergies, Adverse Reactions, Alerts Active Allergies Reaction Severity Comments Date Cephalosporins 02/20/2015 Penicillin 02/20/2015 Medications Active Medications SIG Qnty Indications Ordering Provide r Date Duloxetine HCL 30mg Caps DR Part 1 by mouth once day Unknown Esomeprazole Magnesium 40mg Capsul es DR 1 po bid Unknown Multiple Vitamin/Minerals/No Iron Tablets Unknown Flovent HFA 44mcg/Act Aerosol 2 puffs twice a day with spacer Unknown 00 Flonase Allergy Relief 50mcg/Act Suspension 2 sprays per nostril every in the morning as needed Unknown Metoclopramide HCL 5mg Tablets Unknown Wellbutrin XL 150mg Tablets ER 24H R take 1 by mouth every morning Unknown 0 Singulair 10mg Tablets 1 by mouth every day Unknown Albuterol Sulfate HFA 108(90Base) mcg/Act Aerosol Unknown Zolpidem Tartrate 5mg Tablets Unknown Gabapentin 300mg Capsules 1 tab po qhs for one week, then one tab po bid for one week then one tab po tid Unknown Celecoxib 100mg Capsules Unknown Immunizations Description No Information Available Vital Signs Date Vital Result Comment 09/18/2020 2:49pm Body Temperature 96.2 F 07/11/2020 9:18am Body Temperature 97.1 F Height 69.75 inches 5'9.75" Weight 131.38 lb BMI (Body Mass Index) 19.0 kg/m2 Results Description No Information Available Procedures Date Code Description Status 09/18/2020 35671 X-Ray Shoulder Complete Complete d 09/09/2020 74825 X-Ray Shoulder Complete Complete d 07/31/2020 61417 X-Ray Shoulder Complete Complete d 07/11/2020 21602 X-Ray Shoulder Complete Complete d 07/06/2020 82620 FX Greater Tuberosity W/O Manipu lation Completed Medical Devices Description No Information Available Encounters Type Date Location Provider Dx Diagnosis Office Visit 09/09/2020 2:00p Campbell Ibarra MD S42. 251D Disp fx of greater tuberosity of r humer, 7thD Office Visit 07/31/2020 10:00a Campbell Ibarra MD S42. 251D Disp fx of greater tuberosity of r humer, 7thD Office Visit 07/11/2020 9:00a Campbell Ibarra MD S42. 251D Disp fx of greater tuberosity of r humer, 7thD Office Visit 07/06/2020 3:54p Campbell Ibarra MD S42. 251A Disp fx of greater tuberosity of right humerus, init Assessments Date Code Description Provider 09/18/2020 S42.251D Displaced fracture o f greater tuberosity of right humerus, subsequent encounter for fracture with routine healing Jama Ibarra MD 09/09/2020 S42.251D Displaced fracture o f greater tuberosity of right humerus, subsequent encounter for fracture with routine healing Jama Ibarra MD 07/31/2020 S42.251D Displaced fracture o f greater tuberosity of right humerus, subsequent encounter for fracture with routine healing Jama Ibarra MD 07/11/2020 S42.251D Displaced fracture o f greater tuberosity of right humerus, subsequent encounter for fracture with routine healing Jama Ibarra MD 07/11/2020 S42.251D Displaced fracture o f greater tuberosity of right humerus, subsequent encounter for fracture with routine healing Jama Ibarra MD 07/06/2020 S42.251A Displaced fracture o f greater tuberosity of right humerus, initial encounter for closed fracture Jama Ibarra MD Plan of Treatment Future Appointment(s):* 10/09/2020 3:00 pm - Narda Butler at [place] 09/18/2020 - Jama Ibarra MD* S42.251D Displaced fracture of greater tuberosity of right humerus, subsequent encounter for fracture with routine healing* New Xrays:* MRI RT Shoulder, Ordered: 09/18/20 * Follow up:* [facility] with [facility] at current appt on 10/09/20 for mri results Functional Status Description No Information Available Mental Status Description No Information Available Referrals Refer to Dr Reason for Referral Status Appt Date Milind Edwards MD CT NO AUTH REQUIRED FOR CT OF RIGHT SHOU LDER ([id number]). DG Created [address] [place] [id number] [phone] NO AUTH REQUIRED FOR CT OF RIGHT SHOU LDER ([id number]). DG Created [address] [place] [phone]
--- OUTSIDE RECORDS SUMMARY | 2020-09-19 01:31 | CCD | Continuity of Care Document ---
Author Author Mable REHMAN M.D. Organization Unknown Address [address] [facility], [address] [place] [address] Phone [phone] Care Team Providers Care Bandsaw Operator Name Role Phone Ian Yang AUTM [phone] Problems Active Problems Provider Date Pulmonary function studies abnormal Carlos Gilbert MD Onse t: 09/12/2013 Solitary nodule of lung Carlos Gilbert MD Onset: 4 Tobacco user Carlos Gilbert MD Onset: 06/11/2013 Cough Carlos Gilbert MD Onset: 06/11/2013 Overweight Carlos Gilbert MD Onset: 06/11/2013 Essential hypertension Greg Rehman M.D. Onset: 0 Social History Type Date Description Comments Sex Unknown ETOH Use Denies alcohol use Tobacco Use Start: Unknown End: Unknown Patient is a former smoker Quit tobacco 5 years ago Recreational Drug Use Denies Drug Use Tobacco Use Start: Unknown Using Electronic Cig. Smoking Status Reviewed: 07/08/20 Using Electronic Cig. Allergies, Adverse Reactions, Alerts Active Allergies Reaction Severity Comments Date Lyrica 12/22/2017 Penicillin Anaphylaxis, sick serum syndrome 06/11/2013 Cephalosporins sick serum syndrome 2012 Medications Active Medications SIG Qnty Indications Ordering Provide r Date Flovent HFA 44mcg/Act Aerosol 2 puffs once daily as needed Unknown Albuterol Sulfate HFA 108(90Base) mcg/Act Aerosol inhale two puffs by mouth four times a day as needed Unknown Coq-10 30mg Capsules every da y Unknown Celebrex 100mg Capsules 1 by mouth twice a day Unknown Montelukast Sodium 10mg Tablets 1 by mouth every day Unknown Wellbutrin SR 150mg Tablets ER 12H R by mouth every day Unknown Zolpidem Tartrate 5mg Tablets 1 po at hs Unknown Tolterodine Tartrate 2mg Tablets 1 po daily Unknown Rosuvastatin Calcium 10mg Tablets 1 by mouth every day Unknown Olanzapine 2.5mg Tablets 1 po bid Unknown Magnesium Oxide 250mg Tablets 1 by mouth daily Unknown Loratadine 10mg Capsules 1 by mouth every day Unknown Jaquelin-bid Probiotic Tablets 1 tab by mouth tid Unknown Esomeprazole Magnesium 40mg Capsul es DR 1 by mouth bid Unknown Duloxetine HCL 60mg Caps DR Part one tablet to be taken at bedtime.. Unknown Duloxetine HCL 30mg Caps DR Part 1 by mouth every day Unknown Vitamin D3 25mcg (1000 Ut) Tablets 1 po daily Unknown Eliquis 5mg Tablets 1 tab by mouth twice a day Unknown Amiodarone HCL 200mg Tablets 1 po daily Unknown Gabapentin 300mg Capsules 1 by mouth three times a day Unknown Aspir-[address] 1 by mouth every day Unknown Folic Acid 1mg Tablets 1 by mouth every day Unknown Immunizations CPT Code Status Date Vaccine Lot # [id number] Given 06/13/2014 Influenza Virus Split 3 Yrs And Above For Intramuscular Use Q2036 Given 06/27/2013 Influenza Vaccine 3 Years Of Age Or Older (Flulaval) Q2036 Given 06/07/2012 Influenza Vaccine 3 Years Of Age Or Older (Flulaval) Vital Signs Date Vital Result Comment 09/10/2020 8:39am BP Systolic 120 mmHg BP Diastolic 72 mmHg Height 60 inches 5'0" Weight 126.00 lb Stated BMI (Body Mass Index) 24.6 kg/m2 [place] Body Weight 100 lb Weight 57.154 kg BSA (Body Surface Area) 1.53 m2 07/08/2020 2:48pm BP Systolic 160 mmHg BP Diastolic 80 mmHg Heart Rate 102 /min O2 % BldC Oximetry 91 % 89 ra Height 60 inches 5'0" Weight 131.00 lb BMI (Body Mass Index) 25.6 kg/m2 [place] Body Weight 100 lb Weight 59.422 kg BSA (Body Surface Area) 1.56 m2 Results Test Acquired Date Facility Test Result H/L Range Note Laboratory test finding 03/28/2020 [facility] [address] [place] [address] [phone] Pathology Request For Service (SEE NOTE) 1 1 FINAL DIAGNOSIS Colon, resection for ischemic bowel: Ischemic bowel. Mucosal ulceration and transmural acute inflammation and early necrosis is noted. 04/24/2020 - 141 CLINICAL DIAGNOSIS Ischemic bowel 04/24/2020 - 1320 GROSS DIAGNOSIS Received in formalin labeled "colon" is a 50 cm. portion of colon as well as another 55 cm. portion of colon with omentum and an additional 15 cm. portion of sigmoid colon. The se mira lining is hemorrhagic with punctate necrotic areas. Opening reveals hemorrhagic fluid in the lumen. The sigmoid shows predominantly formed fecal material. Additional portions of fat, skin and colonic tissue, 5 cm. in aggregate are noted in the container. Space Planner sections are submitted as follows; (A1 & A2) cecum, (A3 & A4) transverse colon and (A5 & A6) sigmoid colon. - 04/24/2020 - 1413 Signed Cortez Portillo MD 04/24/2020 1558 Procedures Date Code Description Status 05/09/2020 36993 Revise Ileostomy Complicated Com pleted Medical Devices Description No Information Available Encounters Type Date Location Provider Dx Diagnosis Office Visit 07/08/2020 2:30p [facility] Pulmonary/Thoracic Lawrenc e MD Vladimir R91.8 Other nonspecific abnormal finding of bre ng field Office Visit 07/07/2020 9:00a [facility] Greg hernandez M.D. K55.049 Acute infarction of large intestine, ext ent unspecified K94.19 Other complications of enter ostomy S42.254S Nondisp fx of greater tubero sity of right humerus, sequela Z48.89 Encounter for other specifie d surgical aftercare Office Visit 06/11/2020 11:45a [facility] Greg hernandez M.D. Z48.89 Encounter for other specified surgical a ftercare K56.51 Intestinal adhesions [bands] , with partial obstruction K94.19 Other complications of enter ostomy K55.049 Acute infarction of large in testine, extent unspecified Office Visit 04/02/2020 1:23a [facility] Rosy Gilbert MD J98.11 Atelectasis I10 Essential (primary) hyperten opal I48.91 Unspecified atrial fibrillat ion N28.9 Disorder of kidney and urete r, unspecified Office Visit 04/01/2020 1:23a [facility] Rosy Gilbert MD J96.90 Respiratory failure, unsp, unsp w hypoxi a or hypercapnia E87.2 Acidosis Office Visit 03/31/2020 1:23a [facility] Rosy Gilbert MD J96.90 Respiratory failure, unsp, unsp w hypoxi a or hypercapnia E87.2 Acidosis I35.0 Nonrheumatic aortic (valve) stenosis N28.9 Disorder of kidney and urete r, unspecified Office Visit 03/30/2020 1:23a [facility] Rosy Gilbert MD J96.90 Respiratory failure, unsp, unsp w hypoxi a or hypercapnia E87.2 Acidosis I48.91 Unspecified atrial fibrillat ion Office Visit 03/29/2020 1:23a [facility] Rosy Gilbert MD J96.90 Respiratory failure, unsp, unsp w hypoxi a or hypercapnia E87.2 Acidosis Office Visit 03/28/2020 1:23a [facility] Rosy Gilbert MD I95.9 Hypotension, unspecified I35.0 Nonrheumatic aortic (valve) stenosis M34.9 Systemic sclerosis, unspecif ied Assessments Date Code Description Provider 07/08/2020 R91.8 Other nonspecific abnormal findi ng of lung field Carlos Gilbert MD 07/07/2020 K55.049 Acute infarction of large intest ine, extent unspecified Greg Rehman M.D. 07/07/2020 K94.19 Other complications of enterosto my Greg Rehman M.D. 07/07/2020 S42.254S Nondisplaced fractur e of greater tuberosity of right humerus, sequela Greg Rehman M.D. 07/07/2020 Z48.89 Encounter for other specified castellon rgical aftercare Greg Rehman M.D. 06/11/2020 Z48.89 Encounter for other specified castellon rgical aftercare Greg Rehman M.D. 06/11/2020 K56.51 Intestinal adhesions [bands], wi th partial obstruction Greg Rehman M.D. 06/11/2020 K94.19 Other complications of enterosto my Greg Rehman M.D. 06/11/2020 K55.049 Acute infarction of large intest ine, extent unspecified Greg Rehman M.D. 05/09/2020 K56.51 Intestinal adhesions [bands], wi th partial obstruction Greg Rehman M.D. 05/09/2020 K94.19 Other complications of enterosto my Greg Rehman M.D. 04/02/2020 J98.11 Atelectasis Carlos Gilbert MD 04/02/2020 I10 Essential (primary) hypertension Carlos Gilbert MD 04/02/2020 I48.91 Unspecified atrial fibrillation Carlos Gilbert MD 04/02/2020 N28.9 Disorder of kidney and ureter, u nspecified Carlos Gilbert MD 04/01/2020 J96.90 Respiratory failure, unspecified, unspecified whether with hypoxia or hypercapnia Carlos Gilbert MD 04/01/2020 E87.2 Acidosis Carlos Gilbert MD 03/31/2020 J96.90 Respiratory failure, unspecified, unspecified whether with hypoxia or hypercapnia Carlos Gilbert MD 03/31/2020 E87.2 Acidosis Carlos Gilbert MD 03/31/2020 I35.0 Nonrheumatic aortic (valve) sten josé miguel Gilbert MD 03/31/2020 N28.9 Disorder of kidney and ureter, u nspecified Carlos Gilbert MD 03/30/2020 J96.90 Respiratory failure, unspecified, unspecified whether with hypoxia or hypercapnia Carlos Gilbert MD 03/30/2020 E87.2 Acidosis Carlos Gilbert MD 03/30/2020 I48.91 Unspecified atrial fibrillation Carlos Gilbert MD 03/29/2020 J96.90 Respiratory failure, unspecified, unspecified whether with hypoxia or hypercapnia Carlos Gilbert MD 03/29/2020 E87.2 Acidosis Carlos Gilbert MD 03/28/2020 I95.9 Hypotension, unspecified Lawrenc gerri Gilbert MD 03/28/2020 I35.0 Nonrheumatic aortic (valve) sten josé miguel Gilbert MD 03/28/2020 M34.9 Systemic sclerosis, unspecified Carlos Gilbert MD Plan of Treatment Future Appointment(s):* 01/15/2021 1:00 pm - Carlos Gilbert MD at [facility] Pulmonary/Thoracic 07/08/2020 - Carlos Gilbert MD* R91.8 Other nonspecific abnormal finding of lung field * * Comments:* ~ At this point, I have urged her to continue with her physical therapy and increased activity.~ I will see her in a minimum of six months. At that point in time, we can consider a repeat CT scan, but I would let her get through her acute events now. She can certainly call me sooner if problems arise with which we can be of assistance. * Follow up:* 6 months....no testing Functional Status Description No Information Available Mental Status Description No Information Available Referrals Refer to Reason for Referral Status Appt Date Radiology/[place] [id number] Created
--- OUTSIDE RECORDS SUMMARY | 2020-09-19 01:31 | CCD | Continuity of Care Document ---
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 Supervisor Name Role Phone Shabana Velásquez PA-C AUTM [phone] Lenny Cote DO AUTM [phone] Emiliano Silveira MD AUTM [phone] Delvis Acevedo MD AUTM Chau Ventura MD AUTM [phone] Riley Alvarado MD AUTM [phone] Edilberto Al MD AUTM [phone] Beata Caballero Crna AUTM [phone] Elizabeth Sarkar DO AUTM [phone] Greg Johnson MD AUTM [phone] Problems Active Problems Provider Date Aortic valve disorder Chau Schulte MD Onset: 12/15/2011 Benign essential hypertension Chau Schulte MD Onset: Tobacco user Chau Schulte MD Onset: 12/15/2011 Precordial pain Chau Schulte MD Onset: 12/08/2012 Pure hypercholesterolemia Chau Schulte MD Onset: 2012 Aortic valve stenosis with insufficiency Sandra Car Onset: 09/04/2015 Essential hypertension Chau Schulte MD Onset: 6 Electrocardiogram abnormal Chau Schulte MD Onset: 09/04 Mixed hyperlipidemia Chau Schulte MD Onset: 09/03/2016 Substance abuse counseling Chau Schulte MD Onset: 09/21 Overweight Chau Schulte MD Onset: 09/21/2018 Dietary management surveillance Chau Schulte MD Onset: 05/14/2019 Edema Chau Schulte MD Onset: 09/18/2019 Paroxysmal atrial fibrillation Chau Schulte MD Onset: 1 Sinus node dysfunction Chau Schulte MD Onset: 1 Social History Type Date Description Comments Sex Unknown Tobacco Use Start: Unknown Patient is a current cigarette smoker, smokes some days Has smoked since age 16 up to 1ppd, curr ently <5 daily ETOH Use Consumes Wine 2 glasses yearly - Aureliano and New Year's ETOH Use Consumes Beer 1 once yearly fo r [employer]bowl Tobacco Use Start: Unknown End: Unknown Patient is a former smoker up to 1/2 ppd from age 16, quit 2016 Smoking Status Reviewed: 06/05/20 Patient is a former smoker up to 1/2 ppd from age 16, quit 2016 Exercise Type/Frequency Physical Therapy at home daily Exercise Type/Frequency Occupational Therapy alicia ly at home Exercise Limitations Joint Pain Exercise Limitations Fatigue Lupus Exercise Limitations Weakness Allergies, Adverse Reactions, Alerts Active Allergies Reaction Severity Comments Date Penicillins anaphylaxis 12/15/2011 Cephalosporins anaphylaxis 12/15/2011 Inactive Allergies NKDA 12/27/2007 Medications Active Medications SIG Qnty Indications Ordering Provide r Date Lasix 20mg Tablets 1 by mouth as needed for edema Unknown 09/07/2020 Celecoxib 100mg Capsules 1 by mouth bid Unknown 09/07/2020 Amiodarone HCL 200mg Tablets 1 by mouth every day 90tabs I48.0 Chau Schulte MD 09/07/2020 Jaquelin-bid Probiotic Tablets 1 by mouth daily Unknown 09/07/2020 Amlodipine Besylate 5mg Tablets 1 by mouth every day 30tabs Chau Schulte MD 07/22/2020 Aspirin Ec 81mg Tablets DR 1 by mouth every day 90tabs I48.0 Chau Schulte MD 06/05/2020 Duloxetine HCL 30mg Caps DR Part 2 by mouth twice every day Unknown 06/04/2020 Bupropion Hydrochloride ER (SR) 150mg Tablets ER 12HR once daily 180tabs Unknown 06/04/2020 Eliquis 5mg Tablets 1 by mouth twice a day Unknown 06/04/2020 Docusate Sodium 100mg Capsules 1 by mouth twice a day Unknown 06/04/2020 Tolterodine Tartrate ER 4mg Caps E R 24HR 1 by mouth every day Unknown 06/04/2020 Gabapentin 300mg Capsules 1 by mouth three times a day Unknown 09/17/2019 Zolpidem Tartrate 10mg Tablets 1 by mouth every night at bedtime as needed Unknown 09/17/2019 Rosuvastatin Calcium 10mg Tablets 1 tablet by mouth every evening 90tabs I65.21 Chau Schulte MD 04/29 E78.2 Folic Acid 1mg Tablets 1 by mouth every day Unknown 05/13/2019 Hydrocodone-Acetaminophen 10-325mg Tablets 1 by mouth every 6 hours as needed mmd=4 Beata Caballero Crna 09/20/2018 Vitamin D3 1000Unit Capsules 1 by mouth every day Unknown 09/20/[address] take one by mouth twice a day Unknown 03/15/2016 Coenzyme Q-10 100mg Capsules 1 po qd 90caps I35.2 Chau Schulte MD 01/03/2013 Multivitamins Tablets 1 PO D aily Unknown 12/27/2007 History Medications Carvedilol 3.125mg Tablets 2 by mouth twice a day 180tabs Chau Schulte MD 07/22/2020 - 09/07/2020 Carvedilol 3.125mg Tablets 1 by mouth twice a day 180tabs Chau Schulte MD 07/18/2020 - 07/22/2020 Montelukast Sodium 10mg Tablets 1 by mouth every day Unknown 06/04/2020 - 05/2021 Olanzapine 2.5mg Tablets one by mouth bid Unknown 06/04/2020 - 021 Probiotic Capsules 1 by mouth every day Unknown 06/04/2020 - 021 Ciprofloxacin HCL 500mg Tablets 1 by mouth twice a day Unknown 06/04/2020 - 05/2021 Amiodarone HCL 200mg Tablets 1 by mouth every day I48.0 Unknown 06/04/2020 - 03/2020 Immunizations Description No Information Available Vital Signs Date Vital Result Comment 09/08/2020 9:38am Weight 130.00 lb Home Weight 126lb home weight Height 60 inches 5'0" BMI (Body Mass Index) 25.4 kg/m2 Heart Rate 87 /min BP Systolic Sitting 152 mmHg CBP, adult cuff/LA BP Diastolic Sitting 81 mmHg CBP, adult cuff/LA 06/05/2020 9:55am Weight 127.00 lb Height 60 inches 5'0" BMI (Body Mass Index) 24.8 kg/m2 Heart Rate 90 /min BP Systolic Sitting 125 mmHg CBP, adult cuff/Ra BP Diastolic Sitting 74 mmHg CBP, adult cuff/Ra Results Test Acquired Date Facility Test Result H/L Range Note CMP 06/02/2020 [facility] - not interfaced (315)- - Albumin Serum/Plasma 2.7 Alt - SGPT 14 Calcium Ser/Plasma Mass/Vol 8.5 Carbon Dioxide Ser/Plasm 8.5 Chloride Serum/Plasma 94 Alkaline Phosphatase 76 Potassium 4.4 Protein Total 6.1 Sodium 126 Ast - Sgot 15 BUN - Urea Nitrogen 6 Glucose 71 70-100 Creatinine For GFR 6 Laboratory test finding 06/02/2020 [facility] - not interf aced (315)- - Magnesium Level 1.3 Low 1.8-2.4 Tibc/Iron/% Saturation 06/02/2020 [facility] - not interfa dlylan (315)- - Iron 37 Low 50-170 Tibc 223 Tibc % Saturation 16.6 Laboratory test finding 06/02/2020 [facility] - not interf aced (315)- - Thyroid Stimulating Hormone 6.210 High 0.358-3. 740 Free T4 1.85 C-Reactive Protein 0.96 Lipase 82 CBC without Differential 06/02/2020 [facility] - not inter faced (315)- - White Blood Count 8.6 4.0-10.0 Red Blood Count 3.42 Low 4.00-5.40 Platelets 208 172-450 Hemoglobin 9.7 Hematocrit 31.3 Procedures Date Code Description Status 09/08/2020 40242 Arterial Pressure Wa veform Analysis For Assessment Of Central Art Completed 06/05/2020 64644 Arterial Pressure Wa veform Analysis For Assessment Of Central Art Completed 06/05/2020 86547 ECG 12-Lead Completed Medical Devices Description No Information Available Encounters Type Date Location Provider Dx Diagnosis Office Visit 09/08/2020 9:30a Main Office Chau Schulte MD I49.5 Sick sinus syndrome I48.0 Paroxysmal atrial fibrillati on I10 Essential (primary) hyperten opal Office Visit 06/06/2020 11:03a Main Office Chau Schulte MD I48.0 Paroxysmal atrial fibrillation I35.2 Nonrheumatic aortic (valve) stenosis with insufficiency I10 Essential (primary) hyperten opal E78.2 Mixed hyperlipidemia Office Visit 06/05/2020 9:30a Main Office Chau Schulte MD I48.0 Paroxysmal atrial fibrillation I35.2 Nonrheumatic aortic (valve) stenosis with insufficiency I10 Essential (primary) hyperten opal R94.31 Abnormal electrocardiogram [ ECG] [EKG] E78.2 Mixed hyperlipidemia Assessments Date Code Description Provider 09/08/2020 I49.5 Sick sinus syndrome Chau navarro MD 09/08/2020 I48.0 Paroxysmal atrial fibrillation D nisha Schulte MD 09/08/2020 I10 Essential (primary) hypertension Chau Scuhlte MD 07/18/2020 I48.0 Paroxysmal atrial fibrillation D nisha Schulte MD 07/18/2020 I35.2 Nonrheumatic aortic (valve) sten osis with insufficiency Chau Schulte MD 07/18/2020 I10 Essential (primary) hypertension Chau Schulte MD 07/18/2020 E78.2 Mixed hyperlipidemia Chau florez MD 06/06/2020 I48.0 Paroxysmal atrial fibrillation D nisha Schulte MD 06/06/2020 I35.2 Nonrheumatic aortic (valve) sten osis with insufficiency Chau Schulte MD 06/06/2020 I10 Essential (primary) hypertension Chau Schulte MD 06/06/2020 E78.2 Mixed hyperlipidemia Chau florez MD 06/05/2020 I48.0 Paroxysmal atrial fibrillation D nisha Schulte MD 06/05/2020 I35.2 Nonrheumatic aortic (valve) sten osis with insufficiency Chau Schulte MD 06/05/2020 I10 Essential (primary) hypertension Chau Schulte MD 06/05/2020 R94.31 Abnormal electrocardiogram [ECG] [EKG] Chau Schulte MD 06/05/2020 E78.2 Mixed hyperlipidemia Chau florez MD Plan of Treatment Future Appointment(s):* 10/07/2020 7:00 am - [facility] at Main Office 09/08/2020 - Chau Schulte MD* I49.5 Sick sinus syndrome * I48.0 Paroxysmal atrial fibrillation * I10 Essential (primary) hypertension * All * Follow up:* 1. Book Medtronic dual-chamber pacemaker implant by Dr. Schulte 09/12/2020. 2. Book incision check/staple removal 7 days after pacemaker implant. Functional Status Functional Condition Comment Date Status Requires assistance with ambulating in wheelchair when out of home (uses walker in-home) Active Requires assistance with bathing Active Requires assistance with dressing Active Requires assistance with feeding Active Requires assistance with grooming Active Requires assistance with standing Active Requires assistance with toileting Active Mental Status Description No Information Available Referrals Description No Information Available
--- OUTSIDE RECORDS SUMMARY | 2020-09-19 01:31 | CCD ---
Continuity of Care Document (CCD) Created on: 09/09/2020 Mable Newberry External Reference #: [id number] : [id number] Sex: Female Author Author Mable IBARRA MD Organization Unknown Address [address] [address] Phone [phone] Care Team Providers Care Control Panel Assembler Name Role Phone Luis Fernando Banks MD AUT [phone] Problems Description No Information Available Social History [...] Available Vital Signs Date Vital Result Comment 07/11/2020 9:18am Body Temperature 97.1 F Height 69.75 inches 5'9.75" Weight 131.38 lb BMI (Body Mass Index) 19.0 kg/m2 02/20/2015 1:05pm Body Temperature 98.6 F Height 60 inches 5'0" Weight 126.00 lb BMI (Body Mass Index) 24.6 kg/m2 Results Description No Information Available Procedures Date Code Description Status 09/09/2020 47014 X-Ray Shoulder Complete Complete d 07/31/2020 02747 X-Ray Shoulder Complete Complete d 07/11/2020 27605 X-Ray Shoulder Complete Complete d 07/06/2020 30833 FX Greater Tuberosity W/O Manipu lation Completed Medical Devices Description No Information Available Encounters Type Date Location Provider Dx Diagnosis Office Visit 07/31/2020 10:00a Campbell Ibarra MD S42. 251D Disp fx of greater tuberosity of r humer, 7thD Office Visit 07/11/2020 9:00a Campbell Ibarra MD S42. 251D Disp fx of greater tuberosity of r humer, 7thD Office Visit 07/06/2020 3:54p Campbell Ibarra MD S42. 251A Disp fx of greater tuberosity of right humerus, init Assessments Date Code Description Provider 09/09/2020 S42.251D Displaced fracture o f greater [...] fracture Jama Ibarra MD Plan of Treatment 09/09/2020 - Jama Ibarra MD* S42.251D Displaced fracture of greater tuberosity of right humerus, subsequent encounter for fracture with routine healing* Follow up:* f/u with [facility] in 4-5 weeks with xray right shoulder 4 views Functional Status Description No Information Available Mental Status Description No Information Available Referrals Refer to Reason for Referral Status Appt Date Milind Edwards MD CT NO AUTH REQUIRED FOR CT OF RIGHT SHOU LDER ([id number]). DG Created [address] [place] [phone] NO AUTH REQUIRED FOR CT OF RIGHT SHOU LDER ([id number]). BHAVYA Created [address] [place] [phone]
--- OUTSIDE RECORDS SUMMARY | 2020-09-19 01:31 | CCD | Continuity of Care Document ---
Author Author Mable TILLMAN Organization Unknown Address [place] [address] Phone [phone] Care Team Providers Care Shoe Dyer Name Role Phone Elizabeth Sarkar D.O. AUTM Otnya Alejandro TICKET WRITER-R AUTM [phone] [facility] AUTM [phone] [facility] AUTM [phone] Choima Gorman AUTM [phone] Problems Active Problems Provider Date Mixed hyperlipidemia [...] SIG Qnty Indications Ordering Provide r Date [facility] Home Sleep Study presence of Nocturnal [...] at least 8 hours of sleep istop: [id number] 60tabs Jatin Argueta.O . 11/15/2019 Gabapentin 300mg Capsules 2 in the am 1 in the pm and 2 at bedtime 270caps Jatin Argueta. O. 07/23/2019 Premarin 0.625mg/GM Cream apply 1/2 gram topically to vagina as needed 90gm N95.2 Elizabeth Linares er, D.O. 02/19/2019 Amlodipine Besylate 5mg Tablets 1 by mouth every day 90tabs Jatin Argueta.O. Liquid Calcium With D3 Maximum Strength [id number] Capsules Unknown 0 Aspirin Ec Low Dose [...] F O2 % BldC Oximetry 99 % [facility] Body Weight 100 lb 08/07/2020 1:12pm BP Systolic 124 mmHg BP Diastolic 70 mmHg Height 60.2 inches 5'0.20" Heart Rate 85 /min Respiratory Rate 18 /min Body Temperature 97.4 F O2 % BldC Oximetry 96 % [facility] Body Weight 100 lb Results Test Acquired Date Facility Test Result H/L Range Note CBC With Differential 07/04/2020 [facility] (Registration) [address] [place] [address] [phone] White Blood Count 7.5 10 Normal 4.0-10.0 [...] 0.0 % Normal 0-0 Prothrombin Time/Inr 07/04/2020 [facility] Outpatient Test ing (Registration) [address] [place] [address] [phone] Prothrombin Time 13.3 seconds Normal 12.5-14.3 Inr 0.99 Normal 1 Liver Profile 07/04/2020 [facility] Outpatient Testi ng (Registration) [address] [place] [address] [phone] Ast/Sgot 13 U/L Normal 7-37 Alt/SGPT 15 U/L Normal 12-78 Alkaline Phosphatase 75 U/L Normal 45-117 Bilirubin,Total 0.2 mg/dL Normal 0.2-1.0 Bilirubin,Direct < 0.1 mg/dL Normal 0.0-0.2 Total Protein 6.4 GM/DL Normal 6.4-8.2 Albumin 3.4 GM/DL Normal 3.2-5.2 Albumin/Globulin Ratio 1.1 Low 1.2-2.2 Basic Metabolic Profile 07/04/2020 [facility] Out[facility] T esting (Registration) [address] [place] [address] [phone] Glucose, Fasting 85 mg/dL Normal 70-100 Blood [...] mg/dL Low 8.8-10.2 Laboratory test finding 07/04/2020 [facility] T est[facility] (Registration) [address] [place] [address] [phone] Lipase 69 U/L Low 73-393 Differential 07/04/2020 [facility] Outpatient Testi ng (Registration) [address] [place] [address] [phone] Neutrophils 46 % Normal 28-66 Bands 1 % Normal < 11 Lymphocytes 43 % Normal 16-44 Monocytes 4 % Normal 0-5 Eosinophils 4 % High 0-3 Metamyelocytes 2 % High 0-0 Hypochromasia 1+ Normal Anisocytosis 1+ Normal Laboratory test finding 07/04/2020 [facility] T esting (Registration) [address] [place] [address] [phone] Platelet Estimate NORMAL Normal Normal Ua Routine 06/03/2020 [facility] nter [address] [place] [address] [phone] Appearance, Urine CLOUDY High Clear Color, Urine YELLOW Normal Yellow PH,Urine 6.0 units Normal 5.0-9.0 Specific Dennis Urine Auto 1.008 Normal 1.002-1.035 Protein, Urine [...] /LPF Normal 0-1 Laboratory test finding 06/03/[address] [address] [phone] Urine Culture FULL REPORT IN L <SEE NOTE> Normal 3 Randa Titer & Pattern 06/02/[address] [address] [phone] Randa (Hep2) Negative Normal . 4 Amiodarone Level 06/02/[address] [address] [phone] Amiodarone (Cordarone) 1.1 ug/mL Normal 1.0-2.5 5 Noramiodarone Level 0.8 ug/mL Low 1.0-2.5 6 FT4&TSH Panel 06/02/[address] [address] [phone] Thyroid Stimulating Hormone 6.210 uIU/ML High 0. 358-3.740 Free T4 1.85 ng/dL High 0.76-1.46 Laboratory test finding 06/02/[address] [address] [phone] Lipase 82 U/L Normal 73-393 Total Iron Binding Capacit 06/02/[address] [address] [phone] Iron (Fe) 37 g/dL Low 50-170 Total Iron Binding Capacity 223 g/dL Low 250-450 Percent Saturation 16.6 % Normal 13.2-45.0 CBC With Differential 06/02/[address] [address] [phone] White Blood Count 8.6 10 Normal 4.0-10.0 [...] 36.0-66.0 Lymph % 19.6 % Low 24.0-44.0 Ramsey % 10.1 % High 0.0-5.0 Eos % 6.3 % High 0.0-3.0 Baso % 0.4 % Normal 0.0-1.0 Immature Granulocyte % 0.6 % Normal 0-3.0 Nucleated Red Blood Cell % 0.0 % Normal 0-0 Neutrophils # 5.4 10 Normal 1.5-8.5 Lymph # 1.7 10 Normal 1.5-5.0 Ramsey # 0.9 10 High 0.0-0.8 Eos # 0.5 10 Normal 0.0-0.5 Baso # 0.0 10 Normal 0.0-0.2 Laboratory test finding 06/02/[address] [address] [phone] C Reactive Protein Quantitativ 0.96 mg/dL High 0 .00-0.30 Liver Profile 06/02/2020 [facility] nter [address] [place] [address] [phone] Ast/Sgot 15 U/L Normal 7-37 Alt/SGPT 14 U/L Normal 12-78 Alkaline Phosphatase 76 U/L Normal 45-117 Bilirubin,Total 0.3 mg/dL Normal 0.2-1.0 Bilirubin,Direct 0.1 mg/dL Normal 0.0-0.2 Total Protein 6.1 GM/DL Low 6.4-8.2 Albumin 2.7 GM/DL Low 3.2-5.2 Albumin/Globulin Ratio 0.8 Low 1.2-2.2 Basic Metabolic Profile 06/02/[address] [address] [phone] Glucose, Fasting 71 mg/dL Normal 70-100 Blood [...] mg/dL Low 8.8-10.2 Laboratory test finding 06/02/[address] [address] [phone] Magnesium Level 1.3 mg/dL Low 1.8-2.4 Laboratory test finding 04/02/2020 [facility] Outpatient T esting (Registration) [address] [place] [address] [phone] Partial Thromboplastin Time 108.7 seconds High 2 5.0-38.4 Laboratory test finding 04/02/2020 [facility] Outpatient T esting (Registration) [address] [place] [address] [phone] Partial Thromboplastin Time 45.1 seconds High 25 .0-38.4 Laboratory test finding 04/02/2020 [facility] Outpatient T esting (Registration) [address] [place] [address] [phone] Partial Thromboplastin Time 95.8 seconds High 25 .0-38.4 Type & Screen -Incl Blood Type,[place],AB SC 03/28/2020 [facility] Outpatient Testing (Registration) [address] [place] [phone] Blood Type B POSITIVE Normal AB Screen (Indirect Sara)Vis NEGATIVE Normal Laboratory test finding 03/28/2020 [facility] Outpatient T esting (Registration) [address] [place] [address] [place] [id number] [phone] Packed Cells TRANSFUSED PRODU <SEE NOTE> 8 Complete Blood Count 03/28/2020 [facility] Outpatient Test ing (Registration) [address] [place] [address] [phone] White Blood Count 19.8 10 High 4.0-10.0 [...] % Normal 0-0 Comprehensive Metabolic Profil 03/28/2020 [facility] Outpa tient Testing (Registration) [address] [place] [address] [phone] Glucose, Fasting 130 mg/dL High 70-100 Blood [...] 0.9 Low 1.2-2.2 Laboratory test finding 03/28/2020 [facility] Outpatient T esting (Registration) [address] [place] [address] [phone] Magnesium Level 5.5 mg/dL Critical high 1.8-2.4 PT & Aptt 03/27/2020 [facility] Outpatient Testi ng (Registration) [address] [place] [address] [phone] Prothrombin Time 15.2 seconds High 11.8-14.0 Inr 1.17 Normal 11 Partial Thromboplastin Time 35.4 seconds Normal 25.0-38.4 CBC With Differential 03/27/2020 [facility] Outpatient Sherly ting (Registration) [address] [place] [address] [phone] White Blood Count 14.4 10 High 4.0-10.0 [...] 36.0-66.0 Lymph % 10.9 % Low 24.0-44.0 Ramsey % 13.9 % High 0.0-5.0 Eos % 0.3 % Normal 0.0-3.0 Baso % 0.2 % Normal 0.0-1.0 Immature Granulocyte % 0.3 % Normal 0-3.0 Nucleated Red Blood Cell % 0.0 % Normal 0-0 Neutrophils # 10.7 10 High 1.5-8.5 Lymph # 1.6 10 Normal 1.5-5.0 Ramsey # 2.0 10 High 0.0-0.8 Eos # 0.0 10 Normal 0.0-0.5 Baso # 0.0 10 Normal 0.0-0.2 Laboratory test finding 03/27/2020 [facility] Out[facility] T esting (Registration) [address] [place] [address] [phone] Coronavirus 2019 Nasopharygeal <pending> Sars Covid-19 Amplification [...] Little GFR Left ESRD GFR <15 on MAINTENANCE HELPER 3 FULL REPORT IN LAB NOTES (eC [...] <1:80 Borderline 1:80 Positive >1:80 Performed at: [facility] [address] [id number] Family Development Extension Specialist: Javier Scott MD, Phone: [phone] Performed at: [facility] [address] [id number] Family Development Extension Specialist: Tammy Sarmiento MD, Phone: [phone] This test was developed and its performance characteristics determined by [employer]. It has not been cleared or approved by the Food and Drug Administration. Detection Limit = 0.2 6 This test was developed and its performance characteristics determined by [employer]. It has not been cleared or approved by the Food and Drug Administration. Detection Limit = 0.2 7 Units are mL/min/1.73 m2 Chronic Kidney Disease Staging per NKF: Stage I & II GFR >=60 Normal to Mildly Decreased Stage III GFR 30-59 Moderately Decreased Stage IV GFR 15-29 Severely Decreased Stage V GFR <15 Very Little GFR Left ESRD GFR <15 on MAINTENANCE HELPER 8 TRANSFUSED PRODUCT: PACKED C ELLS COUNT: 2 9 Units are mL/min/1.73 m2 Chronic Kidney Disease Staging per NKF: Stage I & II GFR >=60 Normal to Mildly Decreased Stage III GFR 30-59 Moderately Decreased Stage IV GFR 15-29 Severely Decreased Stage V GFR <15 Very Little GFR Left ESRD GFR <15 on MAINTENANCE HELPER 10 This specimen has an elevate d [...] pathogens. DISCLAIMER: Testing was performed using the [employer] SARS-CoV-2 test. This test was developed and its performance characteristics determined by [employer]. This test has not been FDA cleared [...] Date Location Provider Dx Diagnosis Office Visit 08/07/2020 1:00p [facility] LEVI Metzger R06.00 Dyspnea, unspecified Office Visit 07/23/2020 10:00a [facility] LEVI Metzger I10 Essential (primary) hyperten opal I48.0 Paroxysmal atrial fibrillati on M79.7 Fibromyalgia S42.201D Unsp fx upper end of r humer , subs for fx w harish heal Office Visit 07/03/2020 3:00p [facility] LEVI Metzger E44.1 Mild protein-calorie malnutr ition R06.00 Dyspnea, unspecified Z79.899 Other exterminator helper termite (current) dr asleem therapy Z79.82 terminal block assembler (current) use of a spirin K21.9 Gastro-esophageal reflux dis ease without esophagitis F33.0 Major depressive disorder, r ecurrent, mild Office Visit 06/19/2020 1:30p [facility] LEVI Metzger E87.1 Hypo-osmolality and hyponatr emia E83.42 Hypomagnesemia E44.1 Mild protein-calorie malnutr ition Z79.82 terminal block assembler (current) use of a spirin Z79.899 Other mcfp (current) dr saleem therapy R06.00 Dyspnea, unspecified Office Visit 05/29/2020 2:40p [facility] LEVI Metzger R10.84 Generalized abdominal pain I48.0 Paroxysmal atrial fibrillati on 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 Assessments Date Code Description Provider 08/07/2020 R06.00 Dyspnea, unspecified LEVI Ortiz 07/23/2020 I10 Essential (primary) hypertension LEVI Metzger 07/23/2020 I48.0 Paroxysmal atrial fibrillation LEVI Rain 07/23/2020 M79.7 Fibromyalgia LEVI Metzger 07/23/2020 S42.201D Unspecified fracture of upper end of right humerus, subsequent encounter for fracture with routine healing LEVI Metzger 07/03/2020 E44.1 Mild protein-calorie malnutritio n LEVI Metzger 07/03/2020 R06.00 Dyspnea, unspecified LEVI Ortiz 07/03/2020 Z79.899 Other m[facility]p (current) drug t herapy LEVI Metzger 07/03/2020 Z79.82 jail (current) use of aspir in LEVI Metzger 07/03/2020 K21.9 Gastro-esophageal reflux disease without esophagitis LEVI Metzger 07/03/2020 F33.0 Major depressive disorder, recur rent, mild LEVI Metzger 06/19/2020 E87.1 Hypo-osmolality and hyponatremia LEVI Metzger 06/19/2020 E83.42 Hypomagnesemia LEVI Metzger 06/19/2020 E44.1 Mild protein-calorie malnutritio n LEVI Metzger 06/19/2020 Z79.82 terminal block assembler (current) use of aspir in LEVI Metzger 06/19/2020 Z79.899 Other exterminator helper termite (current) drug t herapy LEVI Metzger 06/19/2020 R06.00 Dyspnea, unspecified LEVI Ortiz 05/29/2020 R10.84 Generalized abdominal pain Jatinder LEVI Johnson 05/29/2020 I48.0 Paroxysmal atrial fibrillation Sandra LEVI Baker 05/29/2020 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 She has weakness of her body generalized but noted to be worse in the LLE. She has a large hematoma to the left upper arm from a recent fall from sitting and unsteady gait. She is her right arm in a sling exterminator helper termite with muscle atrophy of the RUE and PT for upper extremity pending ortho clearance. Please evaluate and treat for weakness and deconditioning of LE and her unsteady gait. Please evaluate and treat LUE due to recent fall and pain in left upper arm. Closed [address] [place] [address] [phone] [facility] had [...] is her right arm in a sling mcfp with muscle atrophy of the RUE and PT for upper extremity pending ortho clearance. Please evaluate and treat for weakness and deconditioning of LE and her unsteady gait. Please evaluate and treat LUE due to recent fall and pain in left upper arm. Closed [address] [facility] [address] [phone] Chioma Gorman has auto immune disease, recent colectomy, and history of depression which has been worse with her chronic disease. Interested in virtual counseling [address] [facility] [address] [place] [address] [phone]
--- OUTSIDE RECORDS SUMMARY | 2020-09-19 01:34 | CCD ---
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 Executive Creative Director Name Role Phone Desiree'barney, Brianna Ian PA Unavailable Unavailable O'barney, A Ian PA Unavailable Unavailable O'barney, A Ian PA Unavailable Unavailable O'barney, A Ian PA Unavailable Unavailable O'barney, A Ian PA Unavailable Unavailable O'barney, A Ian PA Unavailable Unavailable O'barney, A Ian PA Unavailable Unavailable O'barney, A Ian PA Unavailable Unavailable O'barney, A Ian PA Unavailable Unavailable O'barney, A Ian PA Unavailable Unavailable O'barney, A Ian PA Unavailable Unavailable O'barney, A Ian PA Unavailable Unavailable O'barney, A Ian PA Unavailable Unavailable O'barney, A Ian PA Unavailable Unavailable O'barney, A Ian PA Unavailable Unavailable O'barney, A Ian PA Unavailable Unavailable O'barney, A Ian PA Unavailable Unavailable O'barney, A Ian PA Unavailable Unavailable O'barney, A Ian PA Unavailable Unavailable O'barney, A Ian PA Unavailable Unavailable O'barney, A Ian PA Unavailable Unavailable O'barney, A Ian PA Unavailable Unavailable O'barney, A Ian PA Unavailable Unavailable O'barney, A Ian PA Unavailable Unavailable O'barney, A Ian PA Unavailable Unavailable O'barney, A Ian PA Unavailable Unavailable O'barney, A Ian PA Unavailable Unavailable O'barney, Brianna SIMS Unavailable Unavailable O'barney, Brianna Sosa PA Unavailable Unavailable O'barney, A Ian SIMS Unavailable Unavailable O'barney, A Ian PA Unavailable Unavailable O'barney, Brianna SIMS Unavailable Unavailable ANTECOL, Tatiana HARDEN MD Unavailable Unavailable ANTECOL, Tatiana HARDEN MD Unavailable Unavailable ANTECOL, Tatiana HARDEN MD Unavailable Unavailable ANTECOL, Tatiana HARDEN MD Unavailable Unavailable ANTECOL, Tatiana HARDEN MD Unavailable Unavailable ANTECOL, Tatiana HARDEN MD Unavailable Unavailable ANTECOL, Tatiana HARDEN MD Unavailable Unavailable ANTECOL, Tatiana HARDEN MD Unavailable Unavailable ANTECOL, Tatiana HARDEN MD Unavailable Unavailable ANTECOL, Ttaiana HARDEN MD Unavailable Unavailable ANTECOL, Tatiana HARDEN MD Unavailable Unavailable ANTECOL, Tatiana HARDEN MD Unavailable Unavailable ANTECOL, Tatiana HARDEN MD Unavailable Unavailable ANTECOL, Tatiana HARDEN MD Unavailable Unavailable ANTECOL, Tatiana HARDEN MD Unavailable Unavailable ANTECOL, Tatiana HARDEN MD Unavailable Unavailable ANTECOL, Tatiana HARDEN MD Unavailable Unavailable ANTECOL, Tatiana HARDEN MD Unavailable Unavailable ANTECOL, Tatiana HARDEN MD Unavailable Unavailable ANTECOL, Tatiana HARDEN MD Unavailable Unavailable ANTECOL, Tatiana HARDEN MD Unavailable Unavailable ANTECOL, Tatiana HARDEN MD Unavailable Unavailable ANTECOL, Tatiana HARDEN MD Unavailable Unavailable ANTECOL, Tatiana HARDEN MD Unavailable Unavailable ANTECOL, Tatiana HARDEN MD Unavailable Unavailable ANTECOL, Tatiana HARDEN MD Unavailable Unavailable ANTECOL, Tatiana HARDEN MD Unavailable Unavailable ANTECOL, Tatiana HARDEN MD Unavailable Unavailable ANTECOL, Tatiana HARDEN MD Unavailable Unavailable ANTECOL, Tatiana HARDEN MD Unavailable Unavailable ANTECOL, Tatiana HARDEN MD Unavailable Unavailable ANTECOL, Tatiana HARDEN MD Unavailable Unavailable ANTECOL, Tatiana HARDEN MD Unavailable Unavailable ANTECOL, Tatiana HARDEN MD Unavailable Unavailable ANTECOL, Tatiana HARDEN MD Unavailable Unavailable ANTECOL, Tatiana HARDEN MD Unavailable Unavailable ANTECOL, Tatiana HARDEN MD Unavailable Unavailable ANTECOL, Tatiana HARDEN MD Unavailable Unavailable ANTECOL, Tatiana HARDEN MD Unavailable Unavailable ANTECOL, Tatiana HARDEN MD Unavailable Unavailable ANTECOL, Tatiana HARDEN MD Unavailable Unavailable ANTECOL, Tatiana HARDEN MD Unavailable Unavailable ANTECOL, Tatiana HARDEN MD Unavailable Unavailable ANTECOL, Tatiana HARDEN MD Unavailable Unavailable ANTECOL, Tatiana HARDEN MD Unavailable Unavailable ANTECOL, Tatiana HARDEN MD Unavailable Unavailable ANTECOL, Tatiana HARDEN MD Unavailable Unavailable ANTECOL, Tatiana HARDEN MD Unavailable Unavailable ANTECOL, Tatiana HARDEN MD Unavailable Unavailable ANTECOL, Tatiana HARDEN MD Unavailable Unavailable ANTECOL, Tatiana HARDEN MD Unavailable Unavailable ANTECOL, Tatiana HARDEN MD Unavailable Unavailable ANTECOL, Tatiana HARDEN MD Unavailable Unavailable ANTECOL, Tatiana HARDEN MD Unavailable Unavailable ANTECOL, Tatiana HARDEN MD Unavailable Unavailable AUGUST, L KIRA MD Unavailable Unavailable AUGUST, L KIRA MD Unavailable Unavailable AUGUST, L KIRA MD Unavailable Unavailable AUGUST, L KIRA MD Unavailable Unavailable AUGUST, L KIRA MD Unavailable Unavailable AUGUST, L KIRA MD Unavailable Unavailable AUGUST, L KIRA MD Unavailable Unavailable AUGUST, L KIRA MD Unavailable Unavailable AUGUST, L KIRA MD Unavailable Unavailable AUGUST, L KIRA MD Unavailable Unavailable AUGUST, L KIRA MD Unavailable Unavailable AUGUST, L KIRA MD Unavailable Unavailable AUGUST, L KIRA MD Unavailable Unavailable AUGUST, L KIRA MD Unavailable Unavailable AUGUST, L KIRA MD Unavailable Unavailable AUGUST, L KIRA MD Unavailable Unavailable AUGUST, L KIRA MD Unavailable Unavailable AUGUST, L KIRA MD Unavailable Unavailable REDFORD, L KIRA MD Unavailable Unavailable AUGUST, L KIRA MD Unavailable Unavailable REDFORD, L KIRA MD Unavailable Unavailable REDFORD, L KIRA MD Unavailable Unavailable REDFORD, L KIRA MD Unavailable Unavailable REDFORD, L KIRA MD Unavailable Unavailable REDFORD, L KIRA MD Unavailable Unavailable REDFORD, L KIRA MD Unavailable Unavailable REDFORD, L KIRA MD Unavailable Unavailable REDFORD, L KIRA MD Unavailable Unavailable REDFORD, L KIRA MD Unavailable Unavailable REDFORD, L KIRA MD Unavailable Unavailable REDFORD, L KIRA MD Unavailable Unavailable REDFORD, L KIRA MD Unavailable Unavailable REDFORD, L KIRA MD Unavailable Unavailable REDFORD, L KIRA MD Unavailable Unavailable REDFORD, L KIRA MD Unavailable Unavailable REDFORD, L KIRA MD Unavailable Unavailable REDFORD, L KIRA MD Unavailable Unavailable REDFORD, L KIRA MD Unavailable Unavailable REDFORD, L KIRA MD Unavailable Unavailable REDFORD, L KIRA MD Unavailable Unavailable REDFORD, L KIRA MD Unavailable Unavailable REDFORD, L KIRA MD Unavailable Unavailable REDFORD, L KIRA MD Unavailable Unavailable REDFORD, L KIRA MD Unavailable Unavailable REDFORD, L KIRA MD Unavailable Unavailable REDFORD, L KIRA MD Unavailable Unavailable REDFORD, L KIRA MD Unavailable Unavailable REDFORD, L KIRA MD Unavailable Unavailable REDFORD, L KIRA MD Unavailable Unavailable REDFORD, L KIRA MD Unavailable Unavailable REDFORD, L KIRA MD Unavailable Unavailable REDFORD, L KIRA MD Unavailable Unavailable REDFORD, L KIRA MD Unavailable Unavailable REDFORD, L KIRA MD Unavailable Unavailable REDFORD, L KIRA MD Unavailable Unavailable REDFORD, L KIRA MD Unavailable Unavailable REDFORD, L KIRA MD Unavailable Unavailable REDFORD, L KIRA MD Unavailable Unavailable REDFORD, L KIRA MD Unavailable Unavailable REDFORD, L KIRA MD Unavailable Unavailable REDFORD, L KIRA MD Unavailable Unavailable REDFORD, L KIRA MD Unavailable Unavailable REDFORD, L KIRA MD Unavailable Unavailable REDFORD, L KIRA MD Unavailable Unavailable AUGUST, L KIRA MENDEZ Unavailable Unavailable AUGUST, L KIRA MENDEZ Unavailable Unavailable AUGUST, L KIRA MENDEZ Unavailable Unavailable AUGUST, L KIRA MENDEZ Unavailable Unavailable AUGUST, L KIRA MENDEZ Unavailable Unavailable AUGUST, L KIRA MENDEZ Unavailable Unavailable Justin, Milind PA Unavailable Unavailable Justin, Milind PA Unavailable Unavailable Justin, Milind PA Unavailable Unavailable Justin, Milind PA Unavailable Unavailable Justin, Milind PA Unavailable Unavailable Justin, Milind PA Unavailable Unavailable Justin, Milind PA Unavailable Unavailable Justin, Milind PA Unavailable Unavailable Justin, Milind PA Unavailable Unavailable Justin, Milind PA Unavailable Unavailable Justin, Milind PA Unavailable Unavailable Justin, Milind PA Unavailable Unavailable Justin, Milind PA Unavailable Unavailable Justin, Milind PA Unavailable Unavailable Justin, Milind PA Unavailable Unavailable Justin, Milind PA Unavailable Unavailable Justin, Milind PA Unavailable Unavailable Justin, Milind PA Unavailable Unavailable Justin, Milind PA Unavailable Unavailable Justin, Milind PA Unavailable Unavailable Justin, Milind PA Unavailable Unavailable Justin, Milind PA Unavailable Unavailable Justin, Milind PA Unavailable Unavailable Justin, Milind PA Unavailable Unavailable Justin, Milind PA Unavailable Unavailable Justin, Milind PA Unavailable Unavailable Justin, Milind PA Unavailable Unavailable Justin, Milind PA Unavailable Unavailable Justin, Milind PA Unavailable Unavailable Justin, Milind PA Unavailable Unavailable Justin, Milind PA Unavailable Unavailable Justin, Milind PA Unavailable Unavailable Justin, Milind PA Unavailable Unavailable Justin, Milind PA Unavailable Unavailable Justin, Milind PA Unavailable Unavailable Justin, Milind PA Unavailable Unavailable Justin, Milind PA Unavailable Unavailable Justin, Milind PA Unavailable Unavailable Justin, Milind PA Unavailable Unavailable Justin, Milind PA Unavailable Unavailable Justin, Milind PA Unavailable Unavailable Justin, Milind PA Unavailable Unavailable Justin, Milind PA Unavailable Unavailable Justin, Milind PA Unavailable Unavailable Justin, Milind PA Unavailable Unavailable Justin, Milind PA Unavailable Unavailable Justin, Milind PA Unavailable Unavailable Justin, Milind PA Unavailable Unavailable CECY-ILEANA, THONG DO Unavailable Unavailable CECY-ILEANA, THONG DO Unavailable Unavailable CECY-ILEANA, THONG DO Unavailable Unavailable CECY-ILEANA, THONG DO Unavailable Unavailable CECY-ILEANA, THONG DO Unavailable Unavailable CECY-ILEANA, THONG DO Unavailable Unavailable CECY-ILEANA, THONG DO Unavailable Unavailable CECY-ILEANA, THONG DO Unavailable Unavailable CECY-ILEANA, THONG DO Unavailable Unavailable CECY-ILEANA, THONG DO Unavailable Unavailable CECY-ILEANA, THONG DO Unavailable Unavailable CECY-ILEANA, THONG DO Unavailable Unavailable CECY-ILEANA, THONG DO Unavailable Unavailable CECY-ILEANA, THONG DO Unavailable Unavailable CECY-ILEANA, THONG DO Unavailable Unavailable CECY-ILEANA, THONG DO Unavailable Unavailable CECY-ILEANA, THONG DO Unavailable Unavailable CECY-ILEANA, THONG DO Unavailable Unavailable CECY-ILEANA, THONG DO Unavailable Unavailable CECY-ILEANA, THONG DO Unavailable Unavailable CECY-ILEANA, THONG DO Unavailable Unavailable CECY-ILEANA, THONG DO Unavailable Unavailable CECY-ILEANA, THONG DO Unavailable Unavailable CECY-ILEANA, THONG DO Unavailable Unavailable CECY-ILEANA, THONG DO Unavailable Unavailable CECY-ILEANA, THONG DO Unavailable Unavailable CECY-ILEANA, THONG DO Unavailable Unavailable CECY-ILEANA, THONG DO Unavailable Unavailable CECY-ILEANA, THONG DO Unavailable Unavailable CECY-ILEANA, THONG DO Unavailable Unavailable CECY-ILEANA, THONG DO Unavailable Unavailable CECY-ILEANA, THONG DO Unavailable Unavailable CECY-ILEANA, THONG DO Unavailable Unavailable CECY-ILEANA, THONG DO Unavailable Unavailable CECY-ILEANA, THONG DO Unavailable Unavailable CECY-ILEANA, THONG DO Unavailable Unavailable CECY-ILEANA, THONG DO Unavailable Unavailable CECY-ILEANA, THONG DO Unavailable Unavailable CECY-ILEANA, THONG DO Unavailable Unavailable CECY-ILEANA, THONG DO Unavailable Unavailable CECY-ILEANA, THONG DO Unavailable Unavailable CECY-ILEANA, THONG DO Unavailable Unavailable CECY-ILEANA, THONG DO Unavailable Unavailable CECY-ILEANA, THONG DO Unavailable Unavailable CECY-ILEANA, THONG DO Unavailable Unavailable CECY-ILEANA, THONG DO Unavailable Unavailable CECY-ILEANA, THONG DO Unavailable Unavailable CECY-ILEANA, THONG DO Unavailable Unavailable CECY-ILEANA, THONG DO Unavailable Unavailable CECY-ILEANA, THONG DO Unavailable Unavailable CECY-ILEANA, THONG DO Unavailable Unavailable CECY-ILEANA, THONG DO Unavailable Unavailable CECY-ILEANA, THONG DO Unavailable Unavailable CECY-ILEANA, THONG DO Unavailable Unavailable CECY-ILEANA, THONG DO Unavailable Unavailable CECY-ILEANA, THONG DO Unavailable Unavailable CECY-ILEANA, THONG DO Unavailable Unavailable CECY-ILEANA, THONG DO Unavailable Unavailable CECY-ILEANA, THONG DO Unavailable Unavailable CECY-ILEANA, THONG DO Unavailable Unavailable CECY-ILEANA, THONG DO Unavailable Unavailable CECY-ILEANA, THONG DO Unavailable Unavailable CECY-ILEANA, THONG DO Unavailable Unavailable CECY-ILEANA, THONG DO Unavailable Unavailable CECY-ILEANA, THONG DO Unavailable Unavailable CECY-ILEANA, THONG DO Unavailable Unavailable CECY-ILEANA, THONG DO Unavailable Unavailable CECY-ILEANA, THONG DO Unavailable Unavailable CECY-ILEANA, THONG DO Unavailable Unavailable CECY-ILEANA, THONG DO Unavailable Unavailable CECY-ILEANA, THONG DO Unavailable Unavailable CECY-ILEANA, THONG DO Unavailable Unavailable CECY-ILEANA, THONG DO Unavailable Unavailable CECY-ILEANA, THONG DO Unavailable Unavailable CECY-ILEANA, THONG DO Unavailable Unavailable CECY-ILEANA, THONG DO Unavailable Unavailable CECY-ILEANA, THONG DO Unavailable Unavailable CECY-ILEANA, THONG DO Unavailable Unavailable CECY-ILEANA, THONG DO Unavailable Unavailable CECY-ILEANA, THONG DO Unavailable Unavailable CECY-ILEANA, THONG DO Unavailable Unavailable CECY-ILEANA, THONG DO Unavailable Unavailable Desiree REHMAN MD Unavailable Unavailable Desiree REHMAN MD Unavailable Unavailable Desiree REHMAN MD Unavailable Unavailable Desiree REHMAN MD Unavailable Unavailable Desiree REHMAN MD Unavailable Unavailable Desiree REHMAN MD Unavailable Unavailable Desiree REHMAN MD Unavailable Unavailable Desiree REHMAN MD Unavailable Unavailable Desiree REHMAN MD Unavailable Unavailable Desiree REHMAN MD Unavailable Unavailable Desiree REHMAN MD Unavailable Unavailable Desiree REHMAN MD Unavailable Unavailable ORI O ALIZA MENDEZ Unavailable Unavailable ORI O ALIZA MENDEZ Unavailable Unavailable ORI O ALIZA MENDEZ Unavailable Unavailable ORI O ALIZA MENDEZ Unavailable Unavailable ORI O ALIZA MENDEZ Unavailable Unavailable ORI O ALIZA MENDEZ Unavailable Unavailable ORI, O ALIZA MENDEZ Unavailable Unavailable ORI, O ALIZA MENDEZ Unavailable Unavailable ORI, O ALIZA MENDEZ Unavailable Unavailable ORI, O ALIZA MENDEZ Unavailable Unavailable ORI, O ALIZA MENDEZ Unavailable Unavailable ORI, O ALIZA MENDEZ Unavailable Unavailable ORI, O ALIZA MENDEZ Unavailable Unavailable ORI, O ALIZA MENDEZ Unavailable Unavailable ORI, O ALIZA MENDEZ Unavailable Unavailable ORI, O ALIZA MENDEZ Unavailable Unavailable ORI, O ALIZA MENDEZ Unavailable Unavailable ORI O ALIZA MENDEZ Unavailable Unavailable ORI O ALIZA MENDEZ Unavailable Unavailable ORI O ALIZA MENDEZ Unavailable Unavailable ORI O ALIZA MENDEZ Unavailable Unavailable ORI O ALIZA MENDEZ Unavailable Unavailable ORI O ALIZA MENDEZ Unavailable Unavailable ORI O ALIZA MENDEZ Unavailable Unavailable ORI O ALIZA MENDEZ Unavailable Unavailable ORI O ALIZA MENDEZ Unavailable Unavailable ORI O ALIZA MENDEZ Unavailable Unavailable Desiree REHMAN MD Unavailable Unavailable Desiree REHMAN MD Unavailable Unavailable JASWANT ALVARADO MD Unavailable Unavailable JASWANT ALVARADO MD Unavailable Unavailable JASWANT ALVARADO MD Unavailable Unavailable JASWANT ALVARADO MD Unavailable Unavailable JASWANT ALVARADO MD Unavailable Unavailable JASWANT ALVARADO MD Unavailable Unavailable JASWANT ALVARADO MD Unavailable Unavailable JASWANT ALVARADO MD Unavailable Unavailable JASWANT ALVARADO MD Unavailable Unavailable JASWANT ALVARADO MD Unavailable Unavailable JASWANT ALVARADO MD Unavailable Unavailable JASWANT ALVARADO MD Unavailable Unavailable JASWANT ALVARADO MD Unavailable Unavailable JASWANT ALVARADO MD Unavailable Unavailable JASWANT ALVARADO MD Unavailable Unavailable JASWANT ALVARADO MD Unavailable Unavailable JASWANT ALVARADO MD Unavailable Unavailable JASWANT ALVARADO MD Unavailable Unavailable JASWANT ALVARADO MD Unavailable Unavailable JASWANT ALVARADO MD Unavailable Unavailable JASWANT ALVARADO MD Unavailable Unavailable JASWANT ALVARADO MD Unavailable Unavailable JASWANT ALVARADO MD Unavailable Unavailable JASWANT ALVARADO MD Unavailable Unavailable JASWANT ALVARADO MD Unavailable Unavailable JASWANT ALVARADO MD Unavailable Unavailable JASWANT ALVARADO MD Unavailable Unavailable JASWANT ALVARADO MD Unavailable Unavailable JASWANT ALVARADO MD Unavailable Unavailable JASWANT ALVARADO MD Unavailable Unavailable JASWANT ALVARADO MD Unavailable Unavailable JASWANT ALVARADO MD Unavailable Unavailable JASWANT ALVARADO MD Unavailable Unavailable JASWANT ALVARADO MD Unavailable Unavailable JASWANT ALVARADO MD Unavailable Unavailable JASWANT ALVARADO MD Unavailable Unavailable JASWANT ALVARADO MD Unavailable Unavailable JASWANT ALVARADO MD Unavailable Unavailable JASWANT ALVARADO MD Unavailable Unavailable JASWANT ALVARADO MD Unavailable Unavailable JASWANT ALVARADO MD Unavailable Unavailable JASWANT ALVARADO MD Unavailable Unavailable JASWANT ALVARADO MD Unavailable Unavailable JASWANT ALVARADO MD Unavailable Unavailable JASWANT ALVARADO MD Unavailable Unavailable JASWANT ALVARADO MD Unavailable Unavailable JASWANT ALVARADO MD Unavailable Unavailable JASWANT ALVARADO MD Unavailable Unavailable JASWANT ALVARADO MD Unavailable Unavailable JASWANT ALVARADO MD Unavailable Unavailable JASWANT ALVARADO MD Unavailable Unavailable JASWANT ALVARADO MD Unavailable Unavailable JASWANT ALVARADO MD Unavailable Unavailable JASWANT ALVARADO MD Unavailable Unavailable JASWANT ALVARADO MD Unavailable Unavailable JASWANT ALVARADO MD Unavailable Unavailable JASWANT ALVARADO MD Unavailable Unavailable JASWANT ALVARADO MD Unavailable Unavailable JASWANT ALVARADO MD Unavailable Unavailable JASWANT ALVARADO MD Unavailable Unavailable JASWANT ALVARADO MD Unavailable Unavailable JASWANT ALVARADO MD Unavailable Unavailable JASWANT ALVARADO MD Unavailable Unavailable JASWANT ALVARADO MD Unavailable Unavailable JASWANT ALVARADO MD Unavailable Unavailable JASWANT ALVARADO MD Unavailable Unavailable JASWANT ALVARADO MD Unavailable Unavailable JASWANT ALVARADO MD Unavailable Unavailable JASWANT ALVARADO MD Unavailable Unavailable JASWANT ALVARADO MD Unavailable Unavailable JASWANT ALVARADO MD Unavailable Unavailable JASWANT ALVARADO MD Unavailable Unavailable JASWANT ALVARADO MD Unavailable Unavailable JASWANT ALVARADO MD Unavailable Unavailable JASWANT ALVARADO MD Unavailable Unavailable JASWANT ALVARADO MD Unavailable Unavailable JASWANT ALVARADO MD Unavailable Unavailable GARFIELD, JASWANT TA MD Unavailable Unavailable GARFIELD, JASWANT TA MD Unavailable Unavailable ALVARADO, JASWANT TA MD Unavailable Unavailable GARFIELD, JASWANT TA MD Unavailable Unavailable JASWANT ALVARADO MD Unavailable Unavailable JASWANT ALVARADO MD Unavailable Unavailable Hansel Gilbert MD Unavailable Unavailable Hansel Gilbert MD Unavailable Unavailable Hansel Gilbert MD Unavailable Unavailable Hansel Gilbert MD Unavailable Unavailable Hansel Gilbert MD Unavailable Unavailable GilbertHansel MD Unavailable Unavailable GilbertHansel MD Unavailable Unavailable GilbertHansel MD Unavailable Unavailable Hansel Gilbert MD Unavailable Unavailable Hansel Gilbert MD Unavailable Unavailable Hansel Gilbert MD Unavailable Unavailable Hansel Gilbert MD Unavailable Unavailable Hansel Gilbert MD Unavailable Unavailable aHnsel Gilbert MD Unavailable Unavailable Hansel Gilbert MD Unavailable Unavailable Hansel Gilbert MD Unavailable Unavailable Hansle Gilbert MD Unavailable Unavailable Hansel Gilbert MD Unavailable Unavailable Hansel Gilbert MD Unavailable Unavailable Hansel Gilbert MD Unavailable Unavailable Hansel Gilbert MD Unavailable Unavailable Hansel Gilbert MD Unavailable Unavailable Hansel Gilbert MD Unavailable Unavailable Hansel Gilbert MD Unavailable Unavailable Hansel Gilbert MD Unavailable Unavailable Hansel Gilbert MD Unavailable Unavailable Hansel Giblert MD Unavailable Unavailable Hansel Gilbert MD Unavailable Unavailable Hansel Gilbert MD Unavailable Unavailable Hansel Gilbert MD Unavailable Unavailable Hansel Gilbert MD Unavailable Unavailable Hansel Gilbert MD Unavailable Unavailable Hansel Gilbert MD Unavailable Unavailable Hansel Gilbert MD Unavailable Unavailable Hansel Gilbert MD Unavailable Unavailable Hansel Gilbert MD Unavailable Unavailable Hansel Gilbert MD Unavailable Unavailable Hansel Gilbert MD Unavailable Unavailable Hansel Gilbert MD Unavailable Unavailable Hansel Gilbert MD Unavailable Unavailable Hansel Gilbert MD Unavailable Unavailable Hansel Gilbert MD Unavailable Unavailable Hansel Gilbert MD Unavailable Unavailable Hansel Gilbert MD Unavailable Unavailable Hansel Gilbert MD Unavailable Unavailable Hansel Gilbert MD Unavailable Unavailable Hansel Gilbert MD Unavailable Unavailable Hansel Gilbert MD Unavailable Unavailable Hansel Gilbert MD Unavailable Unavailable Hansel Gilbert MD Unavailable Unavailable Hansel Gilbert MD Unavailable Unavailable LOREN IBARRA MD Unavailable Unavailable LOREN IBARRA MD Unavailable Unavailable LOREN IBARRA MD Unavailable Unavailable LOREN IBARRA MD Unavailable Unavailable LOREN IBARRA MD Unavailable Unavailable LOREN IBARRA MD Unavailable Unavailable LOREN IBARRA MD Unavailable Unavailable LOREN IBARRA MD Unavailable Unavailable LOREN IBARRA MD Unavailable Unavailable LOREN IBARRA MD Unavailable Unavailable LOREN IBARRA MD Unavailable Unavailable LOREN IBARRA MD Unavailable Unavailable LOREN IBARRA MD Unavailable Unavailable LOREN IBARRA MD Unavailable Unavailable LOREN IBARRA MD Unavailable Unavailable LOREN IBARRA MD Unavailable Unavailable LOREN IBARRA MD Unavailable Unavailable LOREN IBARRA MD Unavailable Unavailable LOREN IBARRA MD Unavailable Unavailable LOREN IBARRA MD Unavailable Unavailable LOREN IBARRA MD Unavailable Unavailable LOREN IBARRA MD Unavailable Unavailable LOREN IBARRA MD Unavailable Unavailable LOREN IBARRA MD Unavailable Unavailable LOREN IBARRA MD Unavailable Unavailable LOREN IBARRA MD Unavailable Unavailable LOREN IBARRA MD Unavailable Unavailable LOREN IBARRA MD Unavailable Unavailable LOREN IBARRA MD Unavailable Unavailable LOREN IBARRA MD Unavailable Unavailable LOREN IBARRA MD Unavailable Unavailable LOREN IBARRA MD Unavailable Unavailable LOREN IBARRA MD Unavailable Unavailable O'barney, A Ian PA Unavailable Unavailable O'barney, A Ian PA Unavailable Unavailable O'barney, A Ian PA Unavailable Unavailable O'barney, A Ian PA Unavailable Unavailable O'barney, A Ian PA Unavailable Unavailable O'barney, A Ian PA Unavailable Unavailable O'barney, A Ian PA Unavailable Unavailable O'barney, A Ian PA Unavailable Unavailable O'barney, A Ian PA Unavailable Unavailable O'barney, A Ian PA Unavailable Unavailable O'barney, A Ian PA Unavailable Unavailable O'barney, A Ian PA Unavailable Unavailable O'barney, A Ian PA Unavailable Unavailable O'barney, A Ian PA Unavailable Unavailable O'barney, A Ian PA Unavailable Unavailable O'barney, A Ian PA Unavailable Unavailable O'barney, A Ian PA Unavailable Unavailable O'barney, A Ian PA Unavailable Unavailable O'barney, A Ian PA Unavailable Unavailable O'barney, A Ian PA Unavailable Unavailable O'barney, A Ian PA Unavailable Unavailable O'barney, A Ian PA Unavailable Unavailable O'barney, A Ian PA Unavailable Unavailable O'barney, A Ian PA Unavailable Unavailable O'barney, A Ian PA Unavailable Unavailable O'barney, A Ian PA Unavailable Unavailable O'barney, A Ian PA Unavailable Unavailable O'barney, A Ian PA Unavailable Unavailable O'barney, A Ian PA Unavailable Unavailable O'barney, A Ian PA Unavailable Unavailable O'barney, A Ian PA Unavailable Unavailable O'barney, Brianna Ian SIMS Unavailable Unavailable Re-disclosure Warning The records that you are about to access may contain information from federally-assisted alcohol or drug abuse programs. If such information is present, then the following federally mandated warning applies: This information has been disclosed to you from records protected by federal confidentiality rules (42 CFR part 2). The federal rules prohibit you from making any further disclosure of this information unless further disclosure is expressly permitted by the written consent of the person to whom it pertains or as otherwise permitted by 42 CFR part 2. A general authorization for the release of medical or other information is NOT sufficient for this purpose. The Federal rules restrict any use of the information to criminally investigate or prosecute any alcohol or drug abuse patient.The records that you are about to access may contain highly sensitive health information, the redisclosure of which is protected by Article 27-F of the [facility] Public Health law. If you continue you may have access to information: Regarding HIV / AIDS; Provided by facilities licensed or operated by the [facility] Office of Mental Health; or Provided by the [facility] Office for People With Developmental Disabilities. If such information is present, then the following [facility] mandated warning applies: This information has been disclosed to you from confidential records which are protected by state law. State law prohibits you from making any further disclosure of this information without the specific written consent of the person to whom it pertains, or as otherwise permitted by law. Any unauthorized further disclosure in violation of state law may result in a fine or half-way sentence or both. A general authorization for the release of medical or other information is NOT sufficient authorization for further disc losure. Allergies and Adverse Reactions Type Description Substance Reaction Status Data Source(s ) Drug allergy ALENDRONATE SODIUM ALENDRONATE SODIUM [facility] Family History Family Member Name Family Member Gender Family Member Status Date o f Status Description Data Source(s) Unknown Male Problem [facility] ([facility]) Unknown Unknown Problem [facility] ([facility] Male Problem [facility] ([facility] Unknown Male Problem [facility] ([facility]) Unknown Male Problem [facility] ([facility]) Unknown Male Problem [facility] ([facility]) Unknown Male Problem [facility] ([facility]) Encounters Encounter Providers Location Date Indications Data Source(s ) Outpatient Attender: CELY ALVARADO MD 02/16/2021 12:00:00 A [facility] Outpatient Attender: Ian SIMS [facility] 09/09/2020 02:30:00 PM EST MED[facility] ([facility]) Office Visit Attender: LOREN IBARRA MD Physical Therapy 01:00:00 PM EST MED[facility] ([facility]) Outpatient Attender: DERECK MORALES MD Main Office 09/08/2020 08:30:00 AM EST MED[facility] ([facility]) Outpatient Attender: Ian SIMS [facility] 08/07/2020 12:00:00 PM EST MED[facility] ([facility]) Office Visit Attender: LOREN IBARRA MD Physical Therapy 09:00:00 AM EST MED[facility] ([facility]) Outpatient Attender: Ian SIMS [facility] 07/23/2020 09:00:00 AM EST MED[facility] ([facility]) Outpatient Attender: KIRA AUGUST MDReferrer: Milind SIMS 07/17/2020 12:00:00 AM [facility] Office Visit Attender: LOREN IBARRA MD Physical Therapy 08:00:00 AM EST MED[facility] ([facility]) Outpatient Attender: Carlos Noriega/Fabio/Harris/R eindl 07/08/2020 01:30:00 PM EST MED[facility] ([facility]) Office Visit Attender: ALIZA Noriega/Fabio/Harris/Re indl 07/07/2020 08:00:00 AM EST [facility] ([facility]) Outpatient Attender: LOREN IBARRA MD Physical Therapy 02:54:00 PM EST MED[facility] ([facility]) Outpatient Attender: Ian SIMS [facility] 07/03/2020 02:00:00 PM EST MED[facility] ([facility]) Outpatient Attender: Ian SIMS [facility] 06/19/2020 01:30:00 PM EDT MED[facility] ([facility]) Office Visit Attender: ALIZA Noriega/[place]/Harris/Re indl 06/11/2020 11:45:00 AM EDT MED[facility] ([facility] Office Visit Attender: DERECK MORALES MD Main Office 06/06/2020 11: 03:00 AM EDT MED[facility] ([facility]) Outpatient Attender: DERECK MORALES MD Main Office 06/05/2020 09:30:00 AM EDT MED[facility] ([facility]) Outpatient Attender: Ian SIMS [facility] 05/29/2020 02:40:00 PM EDT MED[facility] ([facility]) Outpatient Attender: Carlos Noriega/[place]/Harris/R eindl 04/02/2020 01:23:00 AM EDT [facility] ([facility]) Outpatient Attender: Carlos Noriega/[place]/Harris/R eindl 04/01/2020 01:23:00 AM EDT [facility] ([facility]) Outpatient Attender: Carlos Noriega/Fabio/Harris/R eindl 03/31/2020 01:23:00 AM EDT [facility] ([facility]) Outpatient Attender: Carlos Noriega/Fabio/Harris/R eindl 03/30/2020 01:23:00 AM EDT [facility] ([facility]) Outpatient Attender: Carlos Noriega/Fabio/Harris/R eindl 03/29/2020 01:23:00 AM EDT [facility] ([facility]) Outpatient Attender: Carlos Noriega/Fabio/Harris/R eindl 03/28/2020 01:23:00 AM EDT [facility] ([facility]) Outpatient Attender: CELY ALVARADO MD 03/11/2020 12:00:00 A [facility] Outpatient Attender: CELY ALVARADO MDReferrer: THONG MOSLEY DO [id number] 02/18/2020 12:00:00 AM EDT - 02/18/2020 10:38:33 AM ED T Rheumatoid arthritis without rheumatoid factor, unspecified site [facility] Rheumatoid arthritis without rheumatoid factor, unspecified site [facility] [address] [place] [id number] 01/10/2020 12:00:00 AM EDT eCW1 ([facility]) Outpatient Attender: Ian SIMS [facility] 12/28/2019 01:00:00 PM EDT MED[facility] ([facility]) Outpatient Attender: Ian SIMS [facility] 12/18/2019 02:30:00 PM EDT MED[facility] ([facility]) Outpatient Attender: Ian SIMS [facility] 12/04/2019 03:40:00 PM EDT MED[facility] ([facility]) Outpatient Referrer: Ian SIMS 11/29/2019 03:11:0 0 PM EDT [facility] Outpatient Referrer: Ian SIMS 11/29/2019 03:11:0 0 PM EDT [facility] Outpatient Referrer: Ian SIMS 11/29/2019 03:11:0 0 PM EDT [facility] Outpatient Referrer: Ian SIMS 11/29/2019 03:04:0 0 PM EDT [facility] Outpatient Attender: Ian SIMS [facility] 11/29/2019 01:20:00 PM EDT [facility] ([facility]) Outpatient Referrer: Ian SIMS 11/27/2019 04:14:0 0 PM EDT [facility] Outpatient Attender: Ian SIMS [facility] 11/07/2019 02:30:00 PM EDT MED[facility] ([facility]) Outpatient Attender: CELY ALVARADO MD [id number] 2019 12:00:00 AM EDT - 11/05/2019 12:38:34 PM EDT Other [facility] (current) drug therapy [facility] Other [facility] (current) drug therapy Outpatient Referrer: Ian SIMS 11/01/2019 12:11:0 0 PM EST [facility] Outpatient Attender: CELY ALVARADO MD 10/29/2019 12:00:00 A M [facility] Outpatient Attender: CELY ALVARADO MD 10/23/2019 12:00:00 A M [facility] Outpatient Attender: Milind SIMS [facility] 10/18/2019 01:40:00 PM EST MED[facility] ([facility]) Outpatient Attender: DERECK MORALES MD Main Office 09/18/2019 10:30:00 AM EST [facility] ([facility]) Outpatient Attender: CELY ALVARADO MD 08/08/2019 12:00:00 A M [facility] Outpatient Attender: Carlos Noriega/Fabio/Harris/Theo salguero 08/02/2019 12:30:00 PM EST [facility] ([facility] Outpatient Referrer: Ian SIMS 07/23/2019 03:09:0 0 PM EST [facility] Outpatient Attender: Ian SIMS [facility] 07/23/2019 12:00:00 PM EST MED[facility] ([facility]) Immunizations Vaccine Date Status Description Data Source(s) INFLUENZA VACCINE QUADRIVALENT (65 YR UP)/MF59 C.1/PF 06/19/2020 12:00:00 AM EDT completed [facility] Medications Medication Brand Name Start Date Product Form Dose Route Admi nistrative Instructions Pharmacy Instructions Status Indications Reaction Description Data Source(s) 5 mg 09/10/2020 12:00:00 AM EST tablet 60 TAKE ONE TO TWO TABLETS BY MOUTH AN HOUR BEFORE BEDTIME NEEDED MAXIMUM DAILY DOSE = TWO TABLETS TAKE ONE TO TWO TABLETS BY MOUTH AN HOUR BEFORE BEDTIME NEEDED MAXIMUM DAILY DOSE = TWO TABLETS SOLD: 09/15/2020 [facility] Jaquelin-bid Probiotic 09/07/2020 12:00:00 AM EST ORAL active MED[facility] ([facility]) celecoxib 100 MG Oral Capsule Celecoxib 09/07/2020 12:00:00 AM EST ORAL active [facility] ([facility]) Amiodarone hydrochloride 200 MG Oral Tablet Amiodarone HCL 09/07/2020 12:00:00 AM EST ORAL active [facility] ([facility]) Furosemide 20 MG Oral Tablet [Lasix] Lasix 09/07/2020 12:00:00 AM EST ORAL active [facility] ([facility]) 1 billion cell- 250 mg 09/01/2020 12:00:00 AM EST tablet 270 TAKE ONE TABLET BY MOUTH THREE TIMES A DAY TAKE ONE TABLET BY MOUTH THREE TIMES A DAY SOLD: 09/05/2020 [facility] 5 mg 08/29/2020 12:00:00 AM EST tablet 90 TAKE ONE TABLET BY MOUTH ONCE DAILY TAKE ONE TABLET BY MOUTH ONCE DAILY SOLD: 08/29/2020 [facility] 10-325 mg 08/27/2020 12:00:00 AM EST tablet 240 TAKE ONE AND ONE- HALF TO TWO TABLETS BY MOUTH FOUR TIMES A DAY NEEDED FOR PAIN MAXIMUM DAILY DOSE = EIGHT TABLETS TAKE ONE AND ONE- HALF TO TWO TABLETS BY MOUTH FOUR TIMES A DAY NEEDED FOR PAIN MAXIMUM DAILY DOSE = EIGHT TABLETS SOLD: 08/28/2020 [facility] Home Sleep Study 08/27/2020 12:00:00 AM EST active [facility] ([facility]) Cholestyramine Resin 66.7 MG/ML Oral Suspension Cholestyrami ne 08/27/2020 12:00:00 AM EST active EDENT ([facility]) Prednisone 5 MG Oral Tablet Prednisone 08/25/2020 12:00:00 AM EST ORAL active [facility] ([facility]) Prednisone 20 MG Oral Tablet Prednisone 08/18/2020 12:00:00 AM EST ORAL completed [facility] ([facility]) Nocturnal Oximetry Spo2 Monitor 08/07/2020 12:00:00 AM EST completed [facility] ([facility]) 10-325 mg 08/01/2020 12:00:00 AM EST tablet 240 TAKE 1 & 1/2 TO 2 TABLETS BY MOUTH FOUR TIMES A DAY NEEDED FOR PAIN, MAXIMUM DAILY DOSE = EIGHT TABLETS TAKE 1 & 1/2 TO 2 TABLETS BY MOUTH FOUR TIMES A DAY NEEDED FOR PAIN, MAXIMUM DAILY DOSE = EIGHT TABLETS SOLD: 08/06/2020 [facility] carvedilol 3.125 MG Oral Tablet Carvedilol 07/22/2020 12:00:00 AM EST ORAL completed [facility] ([facility]) 5 mg 07/22/2020 12:00:00 AM EST tablet 30 TAKE ONE TABLET BY MOUTH EVERY DAY TAKE ONE TABLET BY MOUTH EVERY DAY SOLD: 07/23/2020 [facility] Amlodipine 5 MG Oral Tablet Amlodipine Besylate 07/22/2020 12:00:00 A M EST ORAL active [facility] ([facility] carvedilol 3.125 MG Oral Tablet Carvedilol 07/18/2020 12:00:00 AM EST ORAL completed [facility] ([facility]) 20 mg 07/08/2020 12:00:00 AM EST tablet 90 TAKE ONE TABLET BY MOUTH EVERY DAY NEEDED FOR EDEMA TAKE ONE TABLET BY MOUTH EVERY DAY NEEDED FOR EDEMA SOLD: 07/08/2020 [facility] Furosemide 20 MG Oral Tablet [Lasix] Lasix 07/08/2020 12:00:00 AM EST ORAL completed [facility] ([facility]) 10-325 mg 07/07/2020 12:00:00 AM EST tablet 240 TAKE 1 & 1/2 TO 2 TABLETS BY MOUTH FOUR TIMES A DAY NEEDED FOR PAIN, MAXIMUM DAILY DOSE = EIGHT TABLETS TAKE 1 & 1/2 TO 2 TABLETS BY MOUTH FOUR TIMES A DAY NEEDED FOR PAIN, MAXIMUM DAILY DOSE = EIGHT TABLETS SOLD: 07/08/2020 [facility] Esomeprazole 40 MG Delayed Release Oral Capsule Esomeprazole Magnesium 07/03/2020 12:00:00 AM EST ORAL active [facility] ([facility]) 120 ACTUAT Fluticasone propionate 0.044 MG/ACTUAT Metered Dose Inhaler [Flovent] Flovent HFA 07/03/2020 12:00:00 AM EST RESPIRATORY completed [facility] ([facility]) 5 mg 06/19/2020 12:00:00 AM EDT tablet 60 TAKE 1 TO 2 TABLETS BY MOUTH ONCE DAILY ONE HOUR BEFORE BEDTIME NEEDED, MAXIMUM DAILY DOSE = TWO TABLETS TAKE 1 TO 2 TABLETS BY MOUTH ONCE DAILY ONE HOUR BEFORE BEDTIME NEEDED, MAXIMUM DAILY DOSE = TWO TABLETS SOLD: 06/19/2020 [facility] Flonase Allergy Relief Flonase Allergy Relief 06/17/2020 12:00:00 AM E DT active [facility] ([facility]) 50 mcg/actuation 06/17/2020 12:00:00 AM EDT spray,suspension 16 INSTILL 2 SPRAYS IN EACH NOSTRIL ONCE DAILY INSTILL 2 SPRAYS IN EACH NOSTRIL ONCE DAILY SOLD: 06/19/2020 [facility] 10-325 mg 06/16/2020 12:00:00 AM EDT tablet 120 TAKE ONE TABLET BY MOUTH FOUR TIMES A DAY NEEDED FOR PAIN, MAXIMUM DAILY DOSE = FOUR TABLETS TAKE ONE TABLET BY MOUTH FOUR TIMES A DAY NEEDED FOR PAIN, MAXIMUM DAILY DOSE = FOUR TABLETS SOLD: 06/17/2020 [facility] 20 mg 06/14/2020 12:00:00 AM EDT tablet 8 TAKE ONE TABLET BY MOUTH TWO TIMES A DAY TAKE ONE TABLET BY MOUTH TWO TIMES A DAY SOLD: 06/14/2020 [facility] Metoclopramide 5 MG Oral Tablet Metoclopramide HCL 06/11/2020 12:00 :00 AM EDT ORAL active [facility] ([facility]) Aspirin 81 MG Delayed Release Oral Tablet Aspirin Ec 2019 12:00:00 AM EDT ORAL active [facility] ( [facility]) apixaban 5 MG Oral Tablet [Eliquis] Eliquis 06/04/2020 12:00:00 AM E DT ORAL active [facility] ([facility]) Lactobacillus acidophilus [id number] UNT Oral Capsule Probiot ic 06/04/2020 12:00:00 AM EDT ORAL completed [facility] ([facility]) Docusate Sodium 100 MG Oral Capsule Docusate Sodium 06/04/2020 1 2:00:00 AM EDT ORAL active [facility] ( [facility]) Ciprofloxacin 500 MG Oral Tablet Ciprofloxacin HCL 06/04/2020 12:00 :00 AM EDT ORAL completed [facility] ([facility]) Bupropion Hydrochloride ER (SR) Bupropion Hydrochloride ER ( SR) 06/04/2020 12:00:00 AM EDT active M EDENT ([facility]) olanzapine 2.5 MG Oral Tablet Olanzapine 06/04/2020 12:00:00 AM EDT ORAL completed [facility] ([facility]) Amiodarone hydrochloride 200 MG Oral Tablet Amiodarone HCL 06/04/2020 12:00:00 AM EDT ORAL completed [facility] ([facility]) Ciprofloxacin 500 MG Oral Tablet [Cipro] Cipro 06/04/2020 12:00:00 AM EDT completed [facility] ([facility]) 24 HR tolterodine tartrate 4 MG Extended Release Oral Capsule Tolterodine Tartrate ER 06/04/2020 12:00:00 AM EDT ORAL active [facility] ([facility]) montelukast 10 MG Oral Tablet Montelukast Sodium 06/04/2020 12:00:00 AM EDT ORAL completed [facility] ([facility] duloxetine 30 MG Delayed Release Oral Capsule Duloxetine HCL 06/04/2020 12:00:00 AM EDT ORAL active [facility] ([facility]) NITROFURANTOIN, MACROCRYSTALS 25 MG / Ni trofurantoin, Monohydrate 75 MG Oral Capsule [Macrobid] Macrobid 06/03/2020 12:00:00 AM EDT ORAL completed [facility] ([facility]) Amiodarone hydrochloride 200 MG Oral Tablet AMIODARONE HCL 05/28/2020 12:00:00 AM EDT tablet 30 TAKE ONE TABLET BY MOUTH TAKE ONE TABLET BY MOUTH EVERY DAY SOLD: 07/08/2020 [facility] 200 mg 05/28/2020 12:00:00 AM EDT tablet 30 TAKE ONE TABLET BY MOUTH EVERY DAY TAKE ONE TABLET BY MOUTH EVERY DAY SOLD: 05/28/2020 [facility] 5 mg 05/26/2020 12:00:00 AM EDT tablet 20 TAKE ONE TABLET BY MOUTH EVERY 6 HOURS NEEDED FOR FOR NAUSEA AND VOMITING, MAXIMUM DAILY DOSE = FOUR TABLETS TAKE ONE TABLET BY MOUTH EVERY 6 HOURS NEEDED FOR FOR NAUSEA AND VOMITING, MAXIMUM DAILY DOSE = FOUR TABLETS SOLD: 05/26/2020 [facility] 2.5 mg 05/26/2020 12:00:00 AM EDT tablet 60 TAKE ONE TABLET BY MOUTH TWICE A DAY TAKE ONE TABLET BY MOUTH TWICE A DAY SOLD: 05/26/2020 [facility] 5 mg 05/26/2020 12:00:00 AM EDT tablet 60 TAKE ONE TABLET BY MOUTH TWICE A DAY TAKE ONE TABLET BY MOUTH TWICE A DAY SOLD: 05/26/2020 [facility] 5 mg 05/26/2020 12:00:00 AM EDT tablet 30 TAKE ONE TABLET BY MOUTH EVERY 4 HOURS NEEDED FOR MODERATE/ SEVERE PAIN, MAXIMUM DAILY DOSE = SIX TABLETS TAKE ONE TABLET BY MOUTH EVERY 4 HOURS NEEDED FOR MODERATE/ SEVERE PAIN, MAXIMUM DAILY DOSE = SIX TABLETS SOLD: 05/26/2020 [facility] 4 gram 05/26/2020 12:00:00 AM EDT powder in packet 60 TAKE 2 GRAMS BY MOUTH DIRECTED 2 TIMES A DAY AT 11AM AND 5PM TAKE 2 GRAMS BY MOUTH DIRECTED 2 TIMES A DAY AT 11AM AND 5PM SOLD: 05/26/2020 [facility] pantoprazole 40 MG Delayed Release Oral Tablet PANTOPRAZOLE SODIUM 05/26/2020 12:00:00 AM EDT tablet,delayed release (DR/EC) 30 T RM ONE TABLET BY MOUTH EVERY DAY TAKE ONE TABLET BY MOUTH EVERY DAY SOLD: 05/26/2020 [facility] Shingrix Shingrix 04/10/2020 12:00:00 AM EDT compl eted MED[facility] ([facility]) 0.5 ML Streptococcus pneumoniae serotype 1 capsular antigen diphtheria [id number] protein conjugate vaccine 0.0044 MG/ML / Streptococcus pneumoniae serotype 14 capsular antigen diphtheria [id number] protein conjugate vaccine 0.0044 MG/ML / Streptococcus pneumonia Prevnar 13 04/10/2020 12:00:00 AM EDT completed [facility] ([facility]) 5 mg 03/26/2020 12:00:00 AM EDT tablet 60 TAKE ONE TO TWO TABLETS BY MOUTH EVERY DAY AN HOUR BEFORE BEDTIME NEEDED, ENSURE AT LEAST 8 HOURS OF SLEEP MAXIMUM DAILY DOSE = TWO TABLETS TAKE ONE TO TWO TABLETS BY MOUTH EVERY D AY AN HOUR BEFORE BEDTIME NEEDED, ENSURE AT LEAST 8 HOURS OF SLEEP MAXIMUM DAILY DOSE = TWO TABLETS SOLD: 03/26/2020 [facility] 10-325 mg 03/19/2020 12:00:00 AM EDT tablet 120 TAKE ONE TABLET BY MOUTH FOUR TIMES A DAY NEEDED FOR PAIN, MAXIMUM DAILY DOSE = FOUR TABLETS TAKE ONE TABLET BY MOUTH FOUR TIMES A DAY NEEDED FOR PAIN, MAXIMUM DAILY DOSE = FOUR TABLETS SOLD: 03/19/2020 [facility] 5 mg 02/25/2020 12:00:00 AM EDT tablet 60 TAKE 1 TO 2 TABLETS BY MOUTH ONE HOUR BEFORE BEDTIME NEEDED, MAXIMUM DAILY DOSE = TWO TABLETS TAKE 1 TO 2 TABLETS BY MOUTH ONE HOUR BEFORE BEDTIME NEEDED, MAXIMUM DAILY DOSE = TWO TABLETS SOLD: 02/26/2020 [facility] 10-325 mg 02/23/2020 12:00:00 AM EDT tablet 120 TAKE ONE TABLET BY MOUTH FOUR TIMES A DAY NEEDED FOR PAIN, MAXIMUM DAILY DOSE = FOUR TABLETS TAKE ONE TABLET BY MOUTH FOUR TIMES A DAY NEEDED FOR PAIN, MAXIMUM DAILY DOSE = FOUR TABLETS SOLD: 02/23/2020 [facility] 10-325 mg 01/26/2020 12:00:00 AM EDT tablet 120 TAKE ONE TABLET BY MOUTH FOUR TIMES A DAY NEEDED FOR PAIN, MAXIMUM DAILY DOSE = FOUR TABLETS TAKE ONE TABLET BY MOUTH FOUR TIMES A DAY NEEDED FOR PAIN, MAXIMUM DAILY DOSE = FOUR TABLETS SOLD: 01/26/2020 [facility] 5 mg 01/23/2020 12:00:00 AM EDT tablet 60 TAKE ONE TO TWO TABLETS BY MOUTH EVERY DAY AN HOUR BEFORE BEDTIME NEEDED - ENSURE AT LEAST 8 HOURS OF SLEEP MAXIMUM DAILY DOSE = TWO TABLETS TAKE ONE TO TWO TABLETS BY MOUTH EVERY D AY AN HOUR BEFORE BEDTIME NEEDED - ENSURE AT LEAST 8 HOURS OF SLEEP MAXIMUM DAILY DOSE = TWO TABLETS SOLD: 01/24/2020 [facility] benzonatate 200 MG Oral Capsule Benzonatate 01/03/2020 12:00:00 AM EDT completed [facility] ([facility]) 4 mg 12/28/2019 12:00:00 AM EDT tablet 45 TAKE 1-2 TABLETS BY MOUTH EVERY 6 HOURS NEEDED FOR NAUSEA TAKE 1-2 TABLETS BY MOUTH EVERY 6 HOURS NEEDED FOR NAUSEA SOLD: 12/28/2019 [facility] Ondansetron 4 MG Oral Tablet [Zofran] Zofran 12/28/2019 12:00:00 AM EDT ORAL completed [facility] ([facility]) 10-325 mg 12/28/2019 12:00:00 AM EDT tablet 120 TAKE ONE TABLET BY MOUTH FOUR TIMES A DAY NEEDED FOR PAIN, MAXIMUM DAILY DOSE = FOUR TABLETS TAKE ONE TABLET BY MOUTH FOUR TIMES A DAY NEEDED FOR PAIN, MAXIMUM DAILY DOSE = FOUR TABLETS SOLD: 12/28/2019 [facility] 5 mg 12/19/2019 12:00:00 AM EDT tablet 60 TAKE 1-2 TABLETS BY MOUTH AN HOUR BEFORE BEDTIME NEEDED - ENSURE AT LEAST 8 HOURS OF SLEEP , MAXIMUM DAILY DOSE = 2 TABLETS TAKE 1-2 TABLETS BY MOUTH AN HOUR BEFORE BEDTIME NEEDED - ENSURE AT LEAST 8 HOURS OF SLEEP , MAXIMUM DAILY DOSE = 2 TABLETS SOLD: 12/19/2019 [facility] 24 HR Bupropion Hydrochloride 150 MG Extended Release Oral Tablet [Wellbutrin] Wellbutrin XL 12/18/2019 12:00:00 AM EDT ORAL active [facility] ([facility]) Injection Methylprednisolone Acetate 80 MG 12/04/2019 12:00:00 A M EDT completed [facility] ([facility]) Medication administered onsite Prednisone 10 MG Oral Tablet Prednisone 12/04/2019 12:00:00 AM EDT completed [facility] ([facility]) montelukast 10 MG Oral Tablet [Singulair] Singulair 2019 12:00:00 AM EDT ORAL active [facility] ( [facility]) montelukast 10 MG Oral Tablet MONTELUKAST SODIUM 11/30/2019 12:0 0:00 AM EDT tablet 90 TAKE ONE TABLET BY MOUTH EVERY D AY TAKE ONE TABLET BY MOUTH EVERY DAY SOLD: 11/30/2019 [facility] 90 mcg/actuation 11/29/2019 12:00:00 AM EDT HFA aerosol inha ler 25 INHALE ONE TO TWO PUFFS BY MOUTH EVERY 4 TO 6 HOURS NEEDED FOR SHORTNESS OF BREATH INHALE ONE TO TWO PUFFS BY MOUTH EVERY 4 TO 6 HOURS NEEDED FOR SHORTNESS OF BREATH SOLD: 11/29/2019 [facility] 60 ACTUAT Albuterol 0.09 MG/ACTUAT Metered Dose Inhaler Albu terol Sulfate HFA 11/29/2019 12:00:00 AM EDT RESPIRATORY active [facility] ([facility]) benzonatate 200 MG Oral Capsule Benzonatate 11/29/2019 12:00:00 AM EDT completed [facility] ([facility]) Levofloxacin 750 MG Oral Tablet [Levaquin] Levaquin 11/28 12:00:00 AM EDT ORAL completed [facility] ([facility]) 750 mg 11/29/2019 12:00:00 AM EDT tablet 7 TAKE ONE TABLET BY MOUTH ONCE DAILY FOR 7 DAYS TAKE ONE TABLET BY MOUTH ONCE DAILY FOR 7 DAYS SOLD: 0 11/29/2019 [facility] benzonatate 200 MG Oral Capsule BENZONATATE 11/29/2019 12:00:00 AM EDT capsule 60 TAKE ONE CAPSULE BY MOUTH EVERY 8 HOURS NEEDED FOR HELP CONTROL COUGH TAKE ONE CAPSULE BY MOUTH EVERY 8 HOURS NEEDED FOR HELP CONTROL COUGH SOLD: 11/29/2019 [facility] Pro Comfort Inhaler Spacer Chamber Adult 11/29/2019 12:00:00 AM EDT active [facility] ([facility]) INHALER, ASSIST DEVICES 11/29/2019 12:00:00 AM EDT spacer 1 DIRECTED WITH INHALER DIRECTED WITH INHALER SOLD: 11/29/2019 [facility] 10-325 mg 11/27/2019 12:00:00 AM EDT tablet 120 TAKE ONE TABLET BY MOUTH FOUR TIMES A DAY NEEDED FOR PAIN , MAXIMUM DAILY DOSE = 4 TABLETS TAKE ONE TABLET BY MOUTH FOUR TIMES A DAY NEEDED FOR PAIN , MAXIMUM DAILY DOSE = 4 TABLETS SOLD: 11/29/2019 [facility] Zolpidem tartrate 5 MG Oral Tablet Zolpidem Tartrate 11/15/2019 12:00:00 AM EDT ORAL active [facility] ( [facility]) 5 mg 11/15/2019 12:00:00 AM EDT tablet 60 TAKE ONE TO TWO TABLETS BY MOUTH EVERY DAY AN HOUR BEFORE BEDTIME NEEDED, ENSURE AT LEAST 8 HOURS OF SLEEP MAXIMUM DAILY DOSE = TWO TABLETS TAKE ONE TO TWO TABLETS BY MOUTH EVERY D AY AN HOUR BEFORE BEDTIME NEEDED, ENSURE AT LEAST 8 HOURS OF SLEEP MAXIMUM DAILY DOSE = TWO TABLETS SOLD: 11/20/2019 [facility] maalox/lidocaine/diphenhydrAMINE 1:1:1 SWISH & SWAL oral shante pension 10/23/2019 12:00:00 AM EST 5 mL Swish & Spit active Swish and spit 5 mLs every 8 (eight) hours as needed Pharmacy compound: Maalox, lidocaine viscous 2 %, Benadryl 12.5 mg/5 mL [facility] [id number] 10/22/2019 12:00:00 AM EST Suspension 120 SWISH AND SPIT 5ML EVERY 8 HOURS NEEDED SWISH AND SPIT 5ML EVERY 8 HOURS NEEDED SOLD: 10/22/2019 [facility] 10-325 mg 10/22/2019 12:00:00 AM EST tablet 120 TAKE ONE TABLET BY MOUTH FOUR TIMES A DAY NEEDED FOR PAIN , MAXIMUM DAILY DOSE = 4 TABLETS TAKE ONE TABLET BY MOUTH FOUR TIMES A DAY NEEDED FOR PAIN , MAXIMUM DAILY DOSE = 4 TABLETS SOLD: 10/22/2019 [facility] 10-325 mg 09/22/2019 12:00:00 AM EST tablet 120 TAKE ONE TABLET BY MOUTH FOUR TIMES A DAY NEEDED FOR PAIN,MAXIMUM DAILY DOSE = 4 TABLETS TAKE ONE TABLET BY MOUTH FOUR TIMES A DAY NEEDED FOR PAIN,MAXIMUM DAILY DOSE = 4 TABLETS SOLD: 09/22/2019 [facility] Zolpidem tartrate 10 MG Oral Tablet Zolpidem Tartrate 08/30 12:00:00 AM EST ORAL active [facility] ([facility]) gabapentin 300 MG Oral Capsule Gabapentin 09/17/2019 12:00:00 AM EST ORAL active [facility] ([facility]) Amlodipine 5 MG Oral Tablet Amlodipine Besylate 09/17/2019 12:00:00 A M EST ORAL active [facility] ([facility]) 10-325 mg 08/18/2019 12:00:00 AM EST tablet 120 TAKE ONE TABLET BY MOUTH FOUR TIMES A DAY NEEDED, MAXIMUM DAILY DOSE = FOUR TABLETS TAKE ONE TABLET BY MOUTH FOUR TIMES A DAY NEEDED, MAXIMUM DAILY DOSE = FOUR TABLETS SOLD: 08/24/2019 [facility] acid 70 MG Oral Tablet [Fosamax] Fosamax 11/2018 12:00:00 AM EST ORAL completed [facility] ([facility]) 24 HR Bupropion Hydrochloride 150 MG Extended Release Oral Tablet [Wellbutrin] Wellbutrin XL 07/23/2019 12:00:00 AM EST ORAL completed [facility] ([facility]) Zolpidem tartrate 10 MG Oral Tablet Zolpidem Tartrate 06/30 12:00:00 AM EST completed [facility] ([facility]) Esomeprazole 40 MG Delayed Release Oral Capsule [Nexium] Nex ium 07/23/2019 12:00:00 AM EST ORAL active M EDENT ([facility]) Shingrix Shingrix 07/23/2019 12:00:00 AM EST activ e [facility] ([facility]) gabapentin 300 MG Oral Capsule Gabapentin 07/23/2019 12:00:00 AM EST active [facility] 10-325 mg 07/20/2019 12:00:00 AM EST tablet 120 TAKE ONE TABLET BY MOUTH EVERY 4-6 HOURS NEEDED , MAXIMUM DAILY DOSE = 4 TABLETS TAKE ONE TABLET BY MOUTH EVERY 4-6 HOURS NEEDED , MAXIMUM DAILY DOSE = 4 TABLETS SOLD: 07/20/2019 [facility] Folic Acid 1 MG Oral Tablet folic acid (FOLVITE) 1 MG tablet folic acid (FOLVITE) 1 MG tablet 06/19/2019 12:00:00 AM EDT 2 mg Oral aborted Take 2 tablets by mouth daily [facility] Diphenhydramine Hydrochloride 25 MG Oral Tablet Sleep-Tabs 05/13/2019 12:00:00 AM EDT ORAL completed [facility] ([facility]) gabapentin 100 MG Oral Capsule Gabapentin 05/13/2019 12:00:00 AM EDT ORAL completed [facility] ([facility]) gabapentin 100 MG Oral Capsule Gabapentin 04/13/2019 12:00:00 AM EDT ORAL completed [facility] ([facility]) Folic Acid 1 MG Oral Tablet folic acid (FOLVITE) 1 MG tablet folic acid (FOLVITE) 1 MG tablet 03/27/2019 12:00:00 AM EDT 2 mg Oral aborted Take 2 tablets by mouth daily [facility] Insurance Providers Payer name Policy type / Coverage type Policy ID Covered democrat ID Covered democrat's relationship to wiggins Policy Wiggins Plan Information FOR LIFE [id number] MEDICARE [id number] SP [id number] W64 FOR LIFE U [id number] Self [id number] MEDICARE A [id number] Self [id number] W64 FOR LIFE O [id number] S [id number] MEDICARE C [id number] S [id number] W64 U [id number] Spouse [id number] FOR LIFE [id number] 2 [id number] [employer] [id number] S [id number] MEDICARE [id number] SP [id number] ANSI-Not a Secondary Insurance [id number] ANSI-Medicare Part B [id number] ANSI-Commercial [id number] ANSI-Commercial [id number] ANSI-Medicare Part B [id number] ANSI-Not a Secondary Insurance [id number] [facility] For Life [facility] Part B [id number] Family Dependent [id number] [place] Primary [id number] Self [id number] ANSI-Commercial [id number] ANSI-Not a Secondary Insurance [id number] ANSI-Medicare Part B [id number] ANSI-Commercial [id number] ANSI-Not a Secondary Insurance [id number] ANSI-Medicare Part B [id number] For Life [facility] Part B [id number] Family Dependent [id number] Medicare [place] Medicare Primary [id number] Self [id number] ANSI-Not a Secondary Insurance [id number] ANSI-Medicare Part B [id number] ANSI-Commercial [id number] ANSI-Not a Secondary Insurance [id number] ANSI-Medicare Part B [id number] ANSI-Commercial [id number] ANSI-Commercial [id number] ANSI-Medicare Part B [id number] ANSI-Not a Secondary Insurance [id number] ANSI-Commercial [id number] ANSI-Not a Secondary Insurance [id number] ANSI-Medicare Part B [id number] ANSI-Not a Secondary Insurance [id number] ANSI-Commercial [id number] ANSI-Medicare Part B [id number] For Life - [employer] Medigap Part B [id number] Family Dependent [id number] Medicare (Part B) Medicare Primary [id number] Self [id number] Prime - [employer] Health Maintenance Organization (HMO) [id number] For Life - [employer] Medigap Part B [id number] Family Dependent [id number] Medicare (Part B) Medicare Primary [id number] Self [id number] [facility] Health Maintenance Organization ([facility]) [id number] ANSI-Commercial [id number] ANSI-Not a Secondary Insurance [id number] ANSI-Medicare Part B [id number] ANSI-Commercial [id number] ANSI-Not a Secondary Insurance [id number] ANSI-Medicare Part B [id number] ANSI-Commercial [id number] ANSI-Not a Secondary Insurance [id number] ANSI-Medicare Part B [id number] For Life F [id number] SELF 0 [id number] Medicare C [id number] SELF [id number] W64 FOR LIFE O UNAVAILABLE P U NAVAILABLE MEDICARE C UNAVAILABLE S UNAVAILA BLE ANSI-Medicare Part B [id number] ANSI-Not a Secondary Insurance [id number] [place]AST HUMANA [id number] [facility] [id number] ANSI-Not a Secondary Insurance [id number] ANSI-Medicare Part B [id number] ANSI-Medicare Part B [id number] ANSI-Not a Secondary Insurance [id number] ANSI-Medicare Part B [id number] ANSI-Not a Secondary Insurance [id number] ANSI-Not a Secondary Insurance [id number] ANSI-Medicare Part B [id number] U [id number] Self [id number] [address] (2018) Commercial [id number] Self [id number] Prime Commercial [id number] 000 [id number] [place]AST HUMANA [id number] HU2 [id number] [place]AST [employer] [id number] HU2 [id number] [place] [place] [id number] P [id number] [employer] [place] O [id number] P [id number] [employer] [place] [id number] HU2 [id number] U [id number] Spouse [id number] [employer]/ AD O [id number] P [id number] [facility] 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 [id number] Family Depend ent [id number] FOR LIFE -CLINIC [id number] [employer] [place] [id number] HU2 [id number] Prime - [facility] Health Maintenance Organization ([facility]) [id number] Spo [id number] [employer] [place] [id number] HU2 [id number] [employer]/ AD O [id number] P [id number] [facility] 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 Family Depend ent [employer] [place] P [id number] S [id number] [facility] O [id number] U [id number] [facility] O [id number] U [id number] Problems, Conditions, and Diagnoses Code Display Name Description Problem Type Effective Dates Data Source(s) 94904184 Sinus node dysfunction Sinus node dysfunction Problem 09/08/2020 12:00:00 AM ADRI LYONS ([facility]) [id number] Mild recurrent major depression Mild recurrent m ajor depression Problem 07/03/2020 12:00:00 AM EST [facility] ([facility]) [id number] Paroxysmal atrial fibrillation Paroxysmal atrial fibri llation Problem 06/05/2020 12:00:00 AM EDT [facility] ([facility]) [id number] Paroxysmal atrial fibrillation Paroxysmal atrial fibri llation Problem 05/29/2020 12:00:00 AM EDT [facility] ([facility]) 56609940 Essential hypertension Essential hypertension Problem 05/28/2020 12:00:00 AM EDT [facility] ([facility] ) [id number] Edema Edema Problem 09/18/2019 12:00:00 AM ES T [facility] ([facility]) G89.29 Other chronic pain Other chronic pain Diagnosis 10:17:06 AM [facility] M54.5 Low back pain Low back pain Diagnosis 02/18/2020 10:17:06 AM [facility] Z79.899 Other mcc (current) drug therapy 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 Diagnosis 11/05/2019 11:32:36 AM T [facility] Surgeries/Procedures Procedure Description Date Indications Data Source(s) RADEX SHOULDER COMPLETE MINIMUM 2 VIEWS 09/18/2020 12: 00:00 AM EST [facility] ([facility] ) RADEX SHOULDER COMPLETE MINIMUM 2 VIEWS 09/09/2020 12: 00:00 AM EST [facility] ([facility]) Arterial Pressure Waveform Analysis For Assessment Of Centra l Art 09/08/2020 12:00:00 AM EST [facility] ([facility]) RADEX SHOULDER COMPLETE MINIMUM 2 VIEWS 07/31/2020 12: 00:00 AM EST [facility] ([facility] ) RADEX SHOULDER COMPLETE MINIMUM 2 VIEWS 07/11/2020 12: 00:00 AM EST [facility] ([facility] ) FX Greater Tuberosity W/O Manipulation 07/06/2020 12:0 0:00 AM EST [facility] ([facility] ) ECG ROUTINE ECG W/LEAST 12 LDS W/I&R 06/05/2020 12:00: 00 AM EDT [facility] ([facility]) Arterial Pressure Waveform Analysis For Assessment Of Centra l Art 06/05/2020 12:00:00 AM EDT [facility] REVJ ILEOSTOMY COMPLIC RCNSTJ IN-DEPTH SPX 05/09/2020 12:00:00 AM EDT MEDDHARMESH ([facility], ) Arterial Pressure Waveform Analysis For Assessment Of Centra l Art 09/18/2019 12:00:00 AM EST [facility] ([facility]) Spirometry 08/02/2019 12:00:00 AM EST M LEXX ([facility], ) Results ID Date Data Source [id number] 09/09/2020 02:20:00 PM EST [facility] Name Value Range Interpretation Code Description Data Aby rce(s) Supporting Document(s) SARS coronavirus 2 RNA [facility] This lab was ordered by [facility] and reported by [facility]. ID Date Data Source [id number] 08/28/2020 12:00:00 PM EST [facility] Name Value Range Interpretation Code Description Data Aby rce(s) Supporting Document(s) SARS coronavirus [address] [facility] This lab was ordered by [facility] and reported by [facility]. ID Date Data Source [id number] 08/07/2020 12:00:00 AM EST [facility] Loren Ibarra MD Patient Name: DUY RODRIGUEZ [id number] [facility] Date of : 1955 89 Date of Exam: 08/07/2020CHARISSA Hightower [id number]#: Fax: [id number] EXAM: CT UPPER EXTREMITY WITHOUT CONTRASTCLINICAL INFORMATION: Followup fracture right shoulder.Low dose 64 slice helical scanning through the right shoulder was obtainedusing 2 mm increments and reconstructed in both coronal and sagittalplanes. 3D reconstructions were also obtained. Post processing wasperformed at the physician's workstation.Comparison is 07/05/2020 from [facility].Once again, there is a comminuted fracture of the proximal humerus. Thisinvolves the neck of the humerus and the lateral humeral head including thegreater tuberosity. Compared to the prior study, there appears to beslightly increased impaction at the fracture site and slightly increaseddistraction of the multiple small fragments laterally. There appears to beearly healing callus formation. Humeral head is well aligned with theglenoid. There is btso-fn-gzpuasjt narrowing the acromioclavicular joint.Surrounding soft tissue structures are unremarkable. There are no othersignificant findings.IMPRESSION:Comminuted fracture involving the head and neck of the proximal humerus.There is slightly increased impaction and distraction of fracture fragmentscompared to the prior exam. There appears to be very early healing callusformation.Accredited by the [employer] in [place].JONNY Camacho/Eamon you for referring DUY RODRIGUEZ to our office. Electronically Signed - ROXANN ENGLISH MD 08/07/20 16:46 Name Value Range Interpretation Code Description Data Aby rce(s) Supporting Document(s) ID Date Data Source [id number] 07/04/2020 11:34:00 PM EST [facility] ([facility]) Name Value Range Interpretation Code Description Data Aby rce(s) Supporting Document(s) Platelets [#/volume] in Blood by Estimate Laboratory test result Normal (applies to non-numeric results) [facility] ([facility]) ID Date Data Source [id number] 07/04/2020 11:34:00 PM EST [facility] ([facility]) Name Value Range Interpretation Code Description Data Aby rce(s) Supporting Document(s) Bands 1 % Normal (applies to non-numeric resul ts) [facility] ([facility]) Neutrophils 46 % 28-66 Normal (applies to non-numeric resu lts) [facility] ([facility]) Lymphocytes 43 % 16-44 Normal (applies to non-numeric resu lts) [facility] ([facility]) Eosinophils 4 % 0-3 Above high normal [facility] ([facility]) Monocytes 4 % 0-5 Normal (applies to non-numeric resul ts) [facility] ([facility]) Hypochromasia Laboratory test result Normal (applies t o non-numeric results) [facility] ([facility]) Anisocytosis Laboratory test result Normal (applies to non -numeric results) [facility] ([facility]) Metamyelocytes 2 % 0-0 Above high normal [facility] ([facility]) ID Date Data Source [id number] 07/04/2020 11:34:00 PM EST [facility] ([facility]) Name Value Range Interpretation Code Description Data Aby rce(s) Supporting Document(s) Lipase [Enzymatic activity/volume] in Serum or Plasma 69 U/L 73-393 Below low normal [facility] ([facility]) ID Date Data Source [id number] 07/04/2020 11:34:00 PM EST [facility] ([facility]) Name Value Range Interpretation Code Description Data Aby rce(s) Supporting Document(s) Glucose, Fasting 85 mg/dL 70-100 Normal (applies to non-numeric results) [facility] ([facility]) Blood Urea Nitrogen 9 mg/dL 7-18 Normal (applies to non-nume mike results) [facility] ([facility]) Glomerular Filtration Rate 44.7 Below low normal [facility] ([facility]) <content>Units are mL/min/1.73 m2</content>
<content></content>
<content>Chronic Kidney Disease Staging per NKF:</content>
<content></content>
<content>Stage I & II GFR >=60 Normal to Mildly Decreased</content>
<content>Stage III GFR 30-59 Moderately Decreased</content>
<content>Stage IV GFR 15-29 Severely Decreased</content>
<content>Stage V GFR <15 Very Little GFR Left</content>
<content>ESRD GFR <15 on SPEAR FISHER</content>
<content></content> Creatinine For GFR 1.27 mg/dL 0.55-1.30 Normal (applies to non -numeric results) [facility] ([facility]) Potassium Serum 4.3 meq/L 3.5-5.1 Normal (applies to non-numeric results) [facility] ([facility]) Sodium Level 133 meq/L 136-145 Below low normal [facility] ([facility]) Chloride Level 100 meq/L 98-107 Normal (applies to non-numeric r esults) [facility] ([facility]) Carbon Dioxide Level 27 meq/L 21-32 Normal (applies to non-num eladio results) [facility] Calcium Level 8.3 mg/dL 8.8-10.2 Below low normal MED[facility] T ([facility]) Anion Gap 6 meq/L 8-16 Below low normal [facility] ( [facility]) ID Date Data Source [id number] 07/04/2020 11:34:00 PM EST [facility] ([facility]) Name Value Range Interpretation Code Description Data Aby rce(s) Supporting Document(s) Ast/Sgot 13 U/L 7-37 Normal (applies to non-numeric resul ts) [facility] ([facility]) Alt/SGPT 15 U/L 12-78 Normal (applies to non-numeric resul ts) [facility] Alkaline Phosphatase 75 U/L 45-117 Normal (applies to non-num eladio results) [facility] ([facility]) Bilirubin,Direct Laboratory test result 0.0-0.2 Normal ( applies to non-numeric results) [facility] ([facility]) Bilirubin,Total 0.2 mg/dL 0.2-1.0 Normal (applies to non-numeric results) [facility] ([facility]) Total Protein 6.4 GM/DL 6.4-8.2 Normal (applies to non-numeric re sults) [facility] ([facility]) Albumin 3.4 GM/DL 3.2-5.2 Normal (applies to non-numeric resul ts) [facility] ([facility]) Albumin/Globulin Ratio 1.1 1.2-2.2 Below low normal [facility] ([facility]) ID Date Data Source [id number] 07/04/2020 11:34:00 PM EST [facility] ([facility]) Name Value Range Interpretation Code Description Data Aby rce(s) Supporting Document(s) Prothrombin Time 13.3 s 12.5-14.3 Normal (applies to non-numeric results) [facility] ([facility]) Inr 0.99 Normal (applies to non-numeric resul ts) [facility] ([facility]) THERAPUTIC HUMAN INR VALUES INDICATIONS NORMAL RANGES PROPHYLAXIS/TREATMENT OF: VENOUS THROMBOSIS 2.0-3.0 PULMONARY EMBOLISM 2.0-3.0 PREVENTION OF SYSTEMIC EMBOLISM FROM: TISSUE HEART VALVES 2.0-3.0 ACUTE MYOCARDIAL INFARCTION 2.0-3.0 VALVULAR HEART DISEASE 2.0-3.0 ATRIAL FIBRILLATION 2.0-3.0 MECHANICAL VALVES(HIGH RISK) 2.5-3.5 RECURRENT MYOCARDIAL INFARCTION 2.5-3.5 ID Date Data Source [id number] 07/04/2020 11:34:00 PM EST [facility] ([facility]) Name Value Range Interpretation Code Description Data Aby rce(s) Supporting Document(s) White Blood Count 7.5 10 4.0-10.0 Normal (applies to non-numeri c results) [facility] ([facility]) Red Blood Count 3.68 10 4.00-5.40 Below low normal [facility] ([facility]) Hemoglobin 10.3 g/dL 12.0-15.5 Below low normal [facility] ( [facility]) Hematocrit 34.2 % 36.0-47.0 Below low normal [facility] ( [facility]) Mean Corpuscular Volume 92.9 fl 80.0-96.0 Normal ( applies to non-numeric results) [facility] ([facility]) Mean Corpuscular Hemoglobin 28.0 pg 27.0-33.0 Norm al (applies to non-numeric results) [facility] ([facility]) Red Cell Distribution Width 16.3 % 11.5-14.5 Above high normal [facility] ([facility]) Platelet Count, Automated 254 10 150-450 Normal (applies to non-numeric results) [facility] ([facility]) Mean Corpuscular HGB Conc 30.1 g/dL 32.0-36.5 Below low normal [facility] ([facility]) Nucleated Red Blood Cell % 0.0 % 0-0 Normal (applies to n on-numeric results) [facility] ([facility]) ID Date Data Source [id number] 06/23/2020 02:30:00 PM EDT [facility] Name Value Range Interpretation Code Description Data Aby rce(s) Supporting Document(s) SARS coronavirus 2 RNA [facility] This lab was ordered by [facility] and reported by [facility]. ID Date Data Source [id number] 06/19/2020 12:00:00 AM EDT [facility] Carlos Gilbert MD Patient Name: ARNOLD [id number] [facility] Date of : 1955[place] Date of Exam: 06/19/2020CHARISSA Hightower [id number]#: Fax: [id number] EXAM: CT THORAX WITHOUT CONTRASTCLINICAL INFORMATION: Followup nodule.The latest prior for comparison is 04/12/2020 with older priors alsoreviewed.64 slice low dose helical CT scanning was obtained throughout the thoraxwithout intravenous contrast along with sagittal and coronalreconstructions.The mediastinum and pulmonary lynn essentially unchanged. No mass oradenopathy has developed. There is no significant change in the appearanceof the imaged upper abdomen or imaged osseous structures.Evaluation of the lung narayan shows improvement in the curvilinear, patchy,and asymmetric opacities in the right middle lobe and bilateral lowerlobes. The area of consolidation with air bronchograms seen previously inthe right lower lobe has nearly completely resolved. There is a minimalinferior lingular opacity, likely representing subsegmental atelectaticchange. There is cylindrical bronchiectasis, status quo. No new abnormalnodules, masses, or opacities have developed.IMPRESSION:There has been significant improvement in the lung narayan as describedabove and seen with some persistent chronic changes.Accredited by the [employer] in [place].ELOY Wooten/Eamon you for referring DUY RODRIGUEZ to our office. Electronically Signed - JARROD ZAPATA DO 06/20/20 12:01 Name Value Range Interpretation Code Description Data Aby rce(s) Supporting Document(s) ID Date Data Source [id number] 06/11/2020 12:00:00 AM EDT [facility] Patient Name: DUY RODRIGUEZ [id number] Date of : 1955[place] [address] Date of Exam: 06/11/2020PH#: Fax: [phone] EXAM: LUMBOSACRAL SPINE (5 VIEWS)CLINICAL INFORMATION: Pain after trauma "the other day".The are no priors.There is mild posterior disc space narrowing at every level. There isanterior lipping at every level. Vertebral body height and alignment iswithin normal limits. There is no spondylolysis or spondylolisthesis. Thepedicles are intact bilaterally. Heavy marginal osteophytosis is seen onthe right at L1-2.IMPRESSION:Chronic changes as described above.ELOY Wooten/Mario you for referring DUY RODRIGUEZ to our office. Electronically Signed - JARROD ZAPATA DO 06/12/20 14:25 Name Value Range Interpretation Code Description Data Aby rce(s) Supporting Document(s) ID Date Data Source [id number] 06/11/2020 12:00:00 AM EDT [facility] Ian Cortez Pa-C Patient Name: DUY RODRIGUEZ [id number] Date of : 1955[place] [address] Date of Exam: 06/11/2020#: Fax: [phone] EXAM: PELVIS (1OR2 VIEWS) X-RAYCLINICAL INFORMATION: Pain after trauma "the other day".AP PELVIS:The hip joint spaces are symmetric and relatively well maintained.. Thereis no acute fracture or destructive osseous lesion.ELOY Wooten/Mario you for referring DUY RODRIGUEZ to our office. Electronically Signed - JARROD ZAPATA DO 06/12/20 14:25 Name Value Range Interpretation Code Description Data Aby rce(s) Supporting Document(s) ID Date Data Source [id number] 06/11/2020 12:00:00 AM EDT [facility] Ian Cortez Pa-C Patient Name: DUY RODRIGUEZ [id number] Date of : 1955[place] [address] Date of Exam: 06/11/2020#: Fax: [phone] EXAM: HIP RIGHT UNILATERAL (COMPLETE) X-RAYCLINICAL INFORMATION: Pain after trauma "the other day".The hip joint space is symmetric and relatively well maintained. There isno acute fracture or destructive osseous lesion.ELOY Wooten/Mario anguiano for referring DUY RODRIGUEZ to our office. Electronically Signed - JARROD ZAPATA DO 06/12/20 14:24 Name Value Range Interpretation Code Description Data Aby rce(s) Supporting Document(s) ID Date Data Source [id number] 06/03/2020 03:30:00 PM EDT [facility] ([facility]) Name Value Range Interpretation Code Description Data Aby rce(s) Supporting Document(s) Bacteria identified in Urine by Culture Laboratory test result Normal (applies to non-numeric results) [facility] ([facility]) <content>FULL REPORT IN LAB NOTES ([facility]CW a nd [facility]).</content>
<content></content>
<content>ORGANISM 1: KLEBSIELLA PNEUMONIAE</content>
<content></content>
<content>COLONY COUNT >100,000</content>
<content></content>
<content></content>
<content> ORGANISM 1: KLEBSIELLA PNEUMONIAE</content>
<content></content>
<content>KLEBSIELLA PNEUMONIAE: REACTION</content>
<content>TRIMETHOPRIM/SULFAMETHOXAZOLE IV 160mg TMP & 800mg SMXq6h <=20 S</content>
<content> TRIMETHOPRIM/SULFAMETHOXAZOLE PO Bactrim DS Bid <=20 S</content>
<content>AMPICILLIN IV 500mg q6h >=32 R</content>
<content>AMPICILLIN PO 500mg q6h fasting >=32 R</content>
<content>GENTAMICIN IV 80mg q8h <=1 S</content>
<content>NITROFURANTOIN PO 100mg BID 128 R</content>
<content>CEFAZOLIN IV 1gm q8h <=4 S</content>
<content> LEVOFLOXACIN IV 500mg qd <=0.12 S</content>
<content>LEVOFLOXACIN PO 250mg qd <=0.12 S</content>
<content>LEVOFLOXACIN PO 500mg qd <=0.12 S</content>
<content>TOBRAMYCIN IV 80mg q8h <=1 S</content>
<content>CEFTRIAXONE IV 1gm q24h <=1 S</content>
<content>CEFTAZIDIME IV 1gm q8h <=1 S</content>
<content> AMPICILLIN/SULBACTAM IV 1.5g q6h 4 S</content>
<content>PIPERACILLIN/TAZOBACTAM IV 2.25 gm q6h <=4 S</content>
<content>AZTREONAM IV 1gm q8h <=1 S</content>
<content>ERTAPENEM IV 1gm qd <=0.5 S</content>
<content>MEROPENEM IV 1 gm q8h <=0.25 S</content>
<content>MEROPENEM IV 500 mg q8h <=0.25 S</content>
<content> TIGECYCLINE IV 50mg q12h 2 S</content>
<content>CEFEPIME IV 1 gm q12h <=1 S</content>
<content>CEFEPIME IV 2 gm q12h <=1 S</content>
<content>EXTD BRD SPCTRM BETA LACTAMASE IV NEGATIVE FOR ESBL</content>
<content></content> ID Date Data Source [id number] 06/03/2020 03:30:00 PM EDT [facility] ([facility]) Name Value Range Interpretation Code Description Data Aby rce(s) Supporting Document(s) PH,Urine 6.0 units 5.0-9.0 Normal (applies to non-numeric resul ts) [facility] ([facility]) Appearance, Urine Laboratory test result Above high normal [facility] ([facility]) Color, Urine Laboratory test result Normal (applies to non -numeric results) [facility] ([facility]) Specific Curtice Urine Auto 1.008 1.002-1.035 Norm al (applies to non-numeric results) [facility] ([facility]) Protein, Urine Auto Laboratory test result Above high norm al [facility] ([facility]) Glucose, Urine (Ua) Auto Laboratory test result Normal (applies to non-numeric results) [facility] ([facility]) Bilirubin, Urine Auto Laboratory test result Nor mal (applies to non-numeric results) [facility] ([facility]) Ketone, Urine Auto Laboratory test result Normal (applies to non-numeric results) [facility] ([facility]) Urobilinogen, Urine Auto 0.2 mg/dL 0.0-2.0 Normal (applies to non-numeric results) [facility] ([facility]) Nitrite, Urine Auto Laboratory test result Jody l (applies to non-numeric results) [facility] ([facility]) Blood, Urine Blood Laboratory test result Above high jody l [facility] ([facility]) Leukocyte Esterase, Urine Auto Laboratory test result Abov e high normal [facility] ([facility]) WBC, Urine Auto Laboratory test result 0-3 Above high normal [facility] ([facility]) Bacteria, Urine Auto Laboratory test result Above high nor mal [facility] ([facility]) RBC, Urine Auto 27 /HPF 0-3 Above high normal [facility] ([facility]) Squamous Epithelial Cell Ur AU 0 /HPF 0-6 N ormal (applies to non-numeric results) [facility] ([facility]) Mucus, Urine Laboratory test result Normal (applies to non -numeric results) [facility] ([facility]) Hyaline Cast, Urine Auto 0 /LPF 0-1 Normal (applies to non -numeric results) [facility] ID Date Data Source [id number] 06/02/2020 10:30:00 AM EDT [facility] ([facility]) Name Value Range Interpretation Code Description Data Aby rce(s) Supporting Document(s) Magnesium [Mass/volume] in Serum or Plasma 1.3 mg/dL 1.8-2.4 Belo w low normal [facility] ([facility]) ID Date Data Source [id number] 06/02/2020 10:30:00 AM EDT [facility] ([facility]) Name Value Range Interpretation Code Description Data Aby rce(s) Supporting Document(s) Creatinine For GFR 0.86 mg/dL 0.55-1.30 Normal (applies to non -numeric results) [facility] ([facility]) Blood Urea Nitrogen 6 mg/dL 7-18 Below low normal [facility] ([facility]) Glucose, Fasting 71 mg/dL 70-100 Normal (applies to non-numeric results) [facility] ([facility]) Glomerular Filtration Rate Laboratory test result Normal (applies to non- numeric results) [facility] ([facility]) <content>Units are mL/min/1.73 m2</content>
<content></content>
<content>Chronic Kidney Disease Staging per NKF:</content>
<content></content>
<content>Stage I & II GFR >=60 Normal to Mildly Decreased</content>
<content>Stage III GFR 30- 59 Moderately Decreased</content>
<content>Stage IV GFR 15-29 Severely Decreased</content>
<content>Stage V GFR <15 Very Little GFR Left</content>
<content>ESRD GFR <15 on SPEAR FISHER</content>
<content></content> Sodium Level 126 meq/L 136-145 Below low normal [facility] ([facility]) Potassium Serum 4.4 meq/L 3.5-5.1 Normal (applies to non-numeric results) [facility] ([facility]) Carbon Dioxide Level 23 meq/L 21-32 Normal (applies to non-num eladio results) [facility] ([facility]) Chloride Level 94 meq/L 98-107 Below low normal [facility] ([facility]) Calcium Level 8.5 mg/dL 8.8-10.2 Below low normal [facility] ([facility]) Anion Gap 9 meq/L 8-16 Normal (applies to non-numeric resul ts) [facility] ([facility]) ID Date Data Source [id number] 06/02/2020 10:30:00 AM EDT [facility] ([facility]) Name Value Range Interpretation Code Description Data Aby rce(s) Supporting Document(s) Alt/SGPT 14 U/L 12-78 Normal (applies to non-numeric resul ts) [facility] Ast/Sgot 15 U/L 7-37 Normal (applies to non-numeric resul ts) [facility]) Bilirubin,Total 0.3 mg/dL 0.2-1.0 Normal (applies to non-numeric results) [facility] ([facility]) Alkaline Phosphatase 76 U/L 45-117 Normal (applies to non-num eladio results) [facility] ([facility]) Bilirubin,Direct 0.1 mg/dL 0.0-0.2 Normal (applies to non-numeric results) [facility] ([facility]) Total Protein 6.1 GM/DL 6.4-8.2 Below low normal [facility] ([facility]) Albumin 2.7 GM/DL 3.2-5.2 Below low normal [facility] ( [facility]) Albumin/Globulin Ratio 0.8 1.2-2.2 Below low normal [facility] ([facility]) ID Date Data Source [id number] 06/02/2020 10:30:00 AM EDT [facility] ([facility]) Name Value Range Interpretation Code Description Data Aby rce(s) Supporting Document(s) C reactive protein [Mass/volume] in Serum or Plasma by High sensitivity method 0.96 mg/dL 0.00-0.30 Above high normal [facility] ([facility]) ID Date Data Source [id number] 06/02/2020 10:30:00 AM EDT [facility] ([facility]) Name Value Range Interpretation Code Description Data Aby rce(s) Supporting Document(s) White Blood Count 8.6 10 4.0-10.0 Normal (applies to non-numeri c results) [facility] ([facility]) Hematocrit 31.3 % 36.0-47.0 Below low normal [facility] ( [facility]) Hemoglobin 9.7 g/dL 12.0-15.5 Below low normal [facility] ( [facility]) Red Blood Count 3.42 10 4.00-5.40 Below low normal [facility] ([facility]) Mean Corpuscular Hemoglobin 28.4 pg 27.0-33.0 Norm al (applies to non-numeric results) [facility] ([facility]) Mean Corpuscular Volume 91.5 fl 80.0-96.0 Normal ( applies to non-numeric results) [facility] ([facility]) Mean Corpuscular HGB Conc 31.0 g/dL 32.0-36.5 Below low normal [facility] ([facility]) Platelet Count, Automated 208 10 150-450 Normal (applies to non-numeric results) [facility] ([facility]) Red Cell Distribution Width 16.5 % 11.5-14.5 Above high normal [facility] ([facility]) Lymph % 19.6 % 24.0-44.0 Below low normal [facility] ( [facility]) Greenlee % 10.1 % 0.0-5.0 Above high normal [facility] ([facility]) Neutrophils % 63.0 % 36.0-66.0 Normal (applies to non-numeric re sults) [facility] ([facility]) Baso % 0.4 % 0.0-1.0 Normal (applies to non-numeric resul ts) [facility] ([facility]) Immature Granulocyte % 0.6 % 0-3.0 Normal (applies to non-n umeric results) [facility] ([facility]) Eos % 6.3 % 0.0-3.0 Above high normal [facility] ([facility]) Lymph # 1.7 10 1.5-5.0 Normal (applies to non-numeric resul ts) [facility] ([facility]) Nucleated Red Blood Cell % 0.0 % 0-0 Normal (applies to n on-numeric results) [facility] ([facility]) Neutrophils # 5.4 10 1.5-8.5 Normal (applies to non-numeric re sults) [facility] ([facility]) Eos # 0.5 10 0.0-0.5 Normal (applies to non-numeric resul ts) [facility] ([facility]) Baso # 0.0 10 0.0-0.2 Normal (applies to non-numeric resul ts) [facility] ([facility]) Greenlee # 0.9 10 0.0-0.8 Above high normal [facility] ([facility]) ID Date Data Source [id number] 06/02/2020 10:30:00 AM EDT [facility] ([facility]) Name Value Range Interpretation Code Description Data Aby rce(s) Supporting Document(s) Iron (Fe) 37 ug/dL 50-170 Below low normal [facility] ( [facility]) Total Iron Binding Capacity 223 ug/dL 250-450 Below low normal [facility] ([facility]) Percent Saturation 16.6 % 13.2-45.0 Normal (applies to non-numer ic results) [facility] ([facility]) ID Date Data Source [id number] 06/02/2020 10:30:00 AM EDT [facility] ([facility]) Name Value Range Interpretation Code Description Data Aby rce(s) Supporting Document(s) Lipase [Enzymatic activity/volume] in Serum or Plasma 82 U/L 73-393 Normal (applies to non-numeric results) [facility] ([facility]) ID Date Data Source [id number] 06/02/2020 10:30:00 AM EDT [facility] ([facility]) Name Value Range Interpretation Code Description Data Aby rce(s) Supporting Document(s) Thyroid Stimulating Hormone 6.210 uIU/ML 0.358-3.740 Above high jody l [facility] ([facility]) Free T4 1.85 ng/dL 0.76-1.46 Above high normal [facility] ([facility]) ID Date Data Source [id number] 06/02/2020 10:30:00 AM EDT [facility] ([facility]) Name Value Range Interpretation Code Description Data Aby rce(s) Supporting Document(s) Laboratory test finding (navigational concept) 0.8 ug/mL 1 .0-2.5 Below low normal [facility] ([facility]) This test was developed and its performa nce characteristics determined by [facility]. It has not been cleared or approved by the Food and Drug Administration. Detection Limit = 0.2 Laboratory test finding (navigational concept) 1.1 ug/mL 1 .0-2.5 Normal (applies to non-numeric results) [facility] ([facility]) This test was developed and its performa nce characteristics determined by [facility]. It has not been cleared or approved by the Food and Drug Administration. Detection Limit = 0.2 ID Date Data Source [id number] 06/02/2020 10:30:00 AM EDT [facility] ([facility]) Name Value Range Interpretation Code Description Data Aby rce(s) Supporting Document(s) Randa (Hep2) Laboratory test result Normal (applies to non-n umeric results) [facility] ([facility]) <content>Negative <1:80</content>
<content>Borderline 1:80</content>
<content>Positive >1:80</content>
<content>Performed at: - [facility]</content>
<content>[address], [place] [id number]</content>
<content>[employer]: Javier Scott MD, Phone: [phone]</content>
<content>Performed at: - [facility]</content>
<content>[address], [place] [id number]</content>
<content>[employer]: Tammy Sarmiento MD, Phone: [phone]</content>
<content></content> ID Date Data Source [id number] 06/02/2020 08:33:00 AM EDT [facility] ([facility]) Name Value Range Interpretation Code Description Data Aby rce(s) Supporting Document(s) White Blood Count 8.6 4.0-10.0 [facility]) Platelets 208 172-450 [facility] Red Blood Count 3.42 4.00-5.40 [facility]) Hematocrit 31.3 [facility] ([facility]) Hemoglobin 9.7 [facility] ([facility]) ID Date Data Source [id number] 06/02/2020 08:33:00 AM EDT [facility] ([facility] Name Value Range Interpretation Code Description Data Aby rce(s) Supporting Document(s) Thyroid Stimulating Hormone 6.210 0.358-3.740 [facility] ([facility]) C-Reactive Protein 0.96 [facility] Free T4 1.85 [facility] Lipoprotein lipase [Enzymatic activity/volume] in Serum or Plasma 82 [facility] ([facility]) ID Date Data Source [id number] 06/02/2020 08:33:00 AM EDT [facility] ([facility] Name Value Range Interpretation Code Description Data Aby rce(s) Supporting Document(s) Iron 37 50-170 [facility] Iron binding capacity [Mass/volume] in Serum or Plasma 223 [facility] ([facility]) Tibc % Saturation 16.6 [facility]) ID Date Data Source [id number] 06/02/2020 08:33:00 AM EDT [facility] ([facility]) Name Value Range Interpretation Code Description Data Aby rce(s) Supporting Document(s) Magnesium Level 1.3 1.8-2.4 [facility] ID Date Data Source [id number] 06/02/2020 08:33:00 AM EDT [facility] ([facility]) Name Value Range Interpretation Code Description Data Aby rce(s) Supporting Document(s) Albumin [Mass/volume] in Serum or Plasma 2.7 [facility] ([facility]) Alanine aminotransferase [Enzymatic activity/volume] in Serum or Pl asma 14 [facility] ([facility]) Calcium [Mass/volume] in Serum or Plasma 8.5 [facility] ([facility]) Chloride [Moles/volume] in Serum or Plasma 94 [facility] ([facility]) Carbon dioxide, total [Moles/volume] in Serum or Plasma 8.5 [facility] ([facility]) Alkaline phosphatase [Enzymatic activity/volume] in Serum or Plasma 7 6 [facility] ([facility]) Potassium [Moles/volume] in Serum or Plasma 4.4 [facility] ([facility]) Sodium 126 [facility] Protein [Mass/volume] in Serum or Plasma 6.1 [facility] ([facility]) Aspartate aminotransferase [Enzymatic activity/volume] in Serum or Plasma 15 [facility] ([facility]) Urea nitrogen [Mass/volume] in Serum or Plasma 6 [facility] ([facility]) Glucose 71 70-100 [facility] Creatinine For GFR 6 [facility]) ID Date Data Source [id number] 04/02/2020 06:00:00 PM EDT [facility] ([facility]) Name Value Range Interpretation Code Description Data Aby rce(s) Supporting Document(s) aPTT in Platelet poor plasma by Coagulation assay 108.7 s 25.0-38.4 Above high normal [facility] ([facility]) ID Date Data Source [id number] 04/02/2020 09:45:00 AM EDT [facility] ([facility]) Name Value Range Interpretation Code Description Data Aby rce(s) Supporting Document(s) aPTT in Platelet poor plasma by Coagulation assay 45.1 s 25.0-38.4 Above high normal [facility] ([facility]) ID Date Data Source [id number] 04/02/2020 12:01:00 AM EDT [facility] ([facility]) Name Value Range Interpretation Code Description Data Aby rce(s) Supporting Document(s) aPTT in Platelet poor plasma by Coagulation assay 95.8 s 25.0-38.4 Above high normal [facility] ([facility]) ID Date Data Source [id number] 03/28/2020 01:00:00 PM EDT [facility] ([facility], ) Name Value Range Interpretation Code Description Data Aby rce(s) Supporting Document(s) Surgical pathology study Laboratory test result [facility] ([facility], ) <content>FINAL DIAGNOSIS</content>
< content></content>
<content>Colon, resection for ischemic bowel:</content>
<content>Ischemic bowel.</content>
<content>Mucosal ulceration and transmural acute inflammation and early</content>
<content>necrosis is noted.</content>
<content>04/24/2020 - 1413</content>
<content></content>
<content>CLINICAL DIAGNOSIS</content>
<content></content>
<content>Ischemic bowel</content>
<content>04/24/2020 - 1320</content>
<content></content>
<content>GROSS DIAGNOSIS</content>
<content></content>
<content>Received in formalin labeled "colon" is a 50 cm. portion of colon as</content>
<content>well as another 55 cm. portion of colon with omentum and an additional</content>
<content>15 cm. portion of sigmoid colon. The serosal lining is hemorrhagic with</content>
<content>punctate necrotic areas. Opening reveals hemorrhagic fluid in the</content>
<content>lumen. The sigmoid shows predominantly formed fecal material.</content>
<content>Additional portions of fat, skin and colonic tissue, 5 cm. in aggregate</content>
<content>are noted in the container. [employer] sections are submitted as</content>
<content>follows; (A1 & A2) cecum, (A3 & A4) transverse colon and (A5 & A6)</content>
<content>sigmoid colon.</content>
<content>- SH</content>
<content>04/24/2020 - 1413</content>
<content> </content>
<content>Signed Cortez Portillo MD 04/24/2020 1558</content>
<content></content> ID Date Data Source [id number] 03/28/2020 11:25:00 AM EDT [facility]) Name Value Range Interpretation Code Description Data Aby rce(s) Supporting Document(s) Packed Cells Laboratory test result [facility]) TRANSFUSED PRODUCT: PACKED CELLS COUNT: 2 ID Date Data Source [id number] 03/28/2020 11:25:00 AM EDT [facility]) Name Value Range Interpretation Code Description Data Aby rce(s) Supporting Document(s) AB Screen (Indirect Sara)Vis Laboratory test result Normal (applies to non- numeric results) [facility]) Blood Type Laboratory test result Normal (applies to non-n umeric results) [facility] ([facility]) ID Date Data Source [id number] 03/28/2020 06:40:00 AM EDT [facility]) Name Value Range Interpretation Code Description Data Aby rce(s) Supporting Document(s) Magnesium [Mass/volume] in Serum or Plasma 5.5 mg/dL 1.8-2 .4 Above upper panic limits [facility] ([facility]) ID Date Data Source [id number] 03/28/2020 06:40:00 AM EDT [facility] ([facility]) Name Value Range Interpretation Code Description Data Aby rce(s) Supporting Document(s) Blood Urea Nitrogen 36 mg/dL 7-18 Above high normal [facility] ([facility]) Glucose, Fasting 130 mg/dL 70-100 Above high normal [facility] ([facility]) Creatinine For GFR 1.77 mg/dL 0.55-1.30 Above high [facility] Sodium Level 136 meq/L 136-145 Normal (applies to non-numeric res ults) [facility] ([facility]) Potassium Serum 7.2 meq/L 3.5-5.1 Above upper panic limits [facility] ([facility]) This specimen has an elevated potassium level but there is NO visible hemolysis noted. Glomerular Filtration Rate 30.5 Below low normal [facility] ([facility]) <content>Units are mL/min/1.73 m2</content>
<content></content>
<content>Chronic Kidney Disease Staging per NKF:</content>
<content></content>
<content>Stage I & II GFR >=60 Normal to Mildly Decreased</content>
<content>Stage III GFR 30- 59 Moderately Decreased</content>
<content>Stage IV GFR 15-29 Severely Decreased</content>
<content>Stage V GFR <15 Very Little GFR Left</content>
<content>ESRD GFR <15 on SPEAR FISHER</content>
<content></content> Chloride Level 108 meq/L 98-107 Above high normal [facility] ([facility]) Carbon Dioxide Level 17 meq/L 21-32 Below low [facility] Anion Gap 11 meq/L 8-16 Normal (applies to non-numeric resul ts) [facility] ([facility]) Ast/Sgot 31 U/L 7-37 Normal (applies to non-numeric resul ts) [facility] ([facility]) Calcium Level 7.9 mg/dL 8.8-10.2 Below low normal [facility] ([facility]) Alkaline Phosphatase 67 U/L 45-117 Normal (applies to non-num eladio results) [facility] ([facility]) Alt/SGPT 22 U/L 12-78 Normal (applies to non-numeric resul ts) [facility] ([facility]) Bilirubin,Total 1.3 mg/dL 0.2-1.0 Above high normal [facility] ([facility]) Albumin 2.5 GM/DL 3.2-5.2 Below low normal [facility] ( [facility]) Total Protein 5.4 GM/DL 6.4-8.2 Below low normal [facility] ([facility]) Albumin/Globulin Ratio 0.9 1.2-2.2 Below low normal [facility] ([facility]) ID Date Data Source [id number] 03/28/2020 06:40:00 AM EDT [facility] ([facility]) Name Value Range Interpretation Code Description Data Aby rce(s) Supporting Document(s) White Blood Count 19.8 10 4.0-10.0 Above high normal [facility] ([facility]) Red Blood Count 4.98 10 4.00-5.40 Normal (applies to non-numeric results) [facility] Hematocrit 47.1 % 36.0-47.0 Above high normal [facility] ([facility]) Hemoglobin 14.8 g/dL 12.0-15.5 Normal (applies to non-numeric resul ts) [facility] ([facility]) Mean Corpuscular Volume 94.6 fl 80.0-96.0 Normal ( applies to non-numeric results) [facility] ([facility]) Mean Corpuscular Hemoglobin 29.7 pg 27.0-33.0 Norm al (applies to non-numeric results) [facility] Red Cell Distribution Width 14.7 % 11.5-14.5 Above high normal [facility] ([facility]) Platelet Count, Automated 335 10 150-450 Normal (applies to non-numeric results) [facility] ([facility]) Mean Corpuscular HGB Conc 31.4 g/dL 32.0-36.5 Below low normal [facility] ([facility]) Nucleated Red Blood Cell % 0.0 % 0-0 Normal (applies to n on-numeric results) [facility] ([facility]) ID Date Data Source [id number] 03/27/2020 04:27:00 PM EDT [facility] ([facility]) Name Value Range Interpretation Code Description Data Aby rce(s) Supporting Document(s) Red Blood Count 4.86 10 4.00-5.40 Normal (applies to non-numeric results) [facility] ([facility]) White Blood Count 14.4 10 4.0-10.0 Above high normal [facility] Mean Corpuscular Volume 91.8 fl 80.0-96.0 Normal ( applies to non-numeric results) [facility] ([facility]) Hematocrit 44.6 % 36.0-47.0 Normal (applies to non-numeric resul ts) [facility] ([facility]) Hemoglobin 14.5 g/dL 12.0-15.5 Normal (applies to non-numeric resul ts) [facility] Red Cell Distribution Width 14.0 % 11.5-14.5 Norm al (applies to non-numeric results) [facility] ([facility]) Mean Corpuscular HGB Conc 32.5 g/dL 32.0-36.5 Normal (applies to non-numeric results) [facility] ([facility]) Mean Corpuscular Hemoglobin 29.8 pg 27.0-33.0 Norm al (applies to non-numeric results) [facility] Platelet Count, Automated 248 10 150-450 Normal (applies to non-numeric results) [facility] ([facility]) Neutrophils % 74.4 % 36.0-66.0 Above high normal [facility] ([facility]) Lymph % 10.9 % 24.0-44.0 Below low normal [facility] ( [facility]) Greenlee % 13.9 % 0.0-5.0 Above high normal [facility] ([facility]) Eos % 0.3 % 0.0-3.0 Normal (applies to non-numeric resul ts) [facility] ([facility]) Baso % 0.2 % 0.0-1.0 Normal (applies to non-numeric resul ts) [facility] ([facility]) Immature Granulocyte % 0.3 % 0-3.0 Normal (applies to non-n umeric results) [facility] ([facility]) Neutrophils # 10.7 10 1.5-8.5 Above high normal [facility] ([facility]) Nucleated Red Blood Cell % 0.0 % 0-0 Normal (applies to n on-numeric results) [facility] ([facility]) Lymph # 1.6 10 1.5-5.0 Normal (applies to non-numeric resul ts) [facility] ([facility]) Baso # 0.0 10 0.0-0.2 Normal (applies to non-numeric resul ts) [facility] ([facility]) Greenlee # 2.0 10 0.0-0.8 Above high normal [facility] ([facility]) Eos # 0.0 10 0.0-0.5 Normal (applies to non-numeric resul ts) [facility] ([facility]) ID Date Data Source [id number] 03/27/2020 04:27:00 PM EDT [facility] ([facility]) Name Value Range Interpretation Code Description Data Aby rce(s) Supporting Document(s) Inr 1.17 Normal (applies to non-numeric resul ts) [facility] ([facility]) THERAPUTIC HUMAN INR VALUES INDICATIONS NORMAL RANGES PROPHYLAXIS/TREATMENT OF: VENOUS THROMBOSIS 2.0-3.0 PULMONARY EMBOLISM 2.0-3.0 PREVENTION OF SYSTEMIC EMBOLISM FROM: TISSUE HEART VALVES 2.0-3.0 ACUTE MYOCARDIAL INFARCTION 2.0-3.0 VALVULAR HEART DISEASE 2.0-3.0 ATRIAL FIBRILLATION 2.0-3.0 MECHANICAL VALVES(HIGH RISK) 2.5-3.5 RECURRENT MYOCARDIAL INFARCTION 2.5-3.5 Partial Thromboplastin Time 35.4 s 25.0-38.4 Norm al (applies to non-numeric results) [facility] ([facility]) Prothrombin Time 15.2 s 11.8-14.0 Above high normal [facility] ID Date Data Source [id number] 03/27/2020 11:12:00 AM EDT [facility] ([facility]) Name Value Range Interpretation Code Description Data Aby rce(s) Supporting Document(s) Coronavirus 2019 Nasopharygeal Laboratory test result [facility] ([facility]) Laboratory test finding (navigational concept) Laboratory test result [facility] ([facility]) Laboratory test finding (navigational concept) Laboratory test r esult Normal (applies to non-numeric results) [facility] ([facility]) A false negative result may occur if a s pecimen is improperly collected, transported or handled. False [...] pathogens. DISCLAIMER: Testing was performed using the [employer] SARS-CoV-2 test. This test was developed and its performance characteristics determined by [employer]. This test has not been FDA cleared [...] the authorization is terminated or revoked sooner. Laboratory test finding (navigational concept) Laboratory test result [facility] ([facility]) Laboratory test finding (navigational concept) Laboratory test result [facility] ([facility]) Laboratory test finding (navigational concept) Laboratory test result [facility] Laboratory test finding (navigational concept) Laboratory test result [facility]) Laboratory test finding (navigational concept) Laboratory test result [facility] ([facility]) Laboratory test finding (navigational concept) Laboratory test result [facility] ([facility]) Laboratory test finding (navigational concept) Laboratory test result [facility] ([facility]) Laboratory test finding (navigational concept) Laboratory test result [facility] ([facility]) Laboratory test finding (navigational concept) Laboratory test result [facility] ([facility]) Laboratory test finding (navigational concept) Laboratory test result [facility] ([facility]) Laboratory test finding (navigational concept) Laboratory test result [facility] ([facility]) Laboratory test finding (navigational concept) Laboratory test result [facility] ([facility]) Laboratory test finding (navigational concept) Laboratory test result [facility] ([facility]) Laboratory test finding (navigational concept) Laboratory test result [facility] ([facility]) Laboratory test finding (navigational concept) Laboratory test result [facility] ([facility]) Laboratory test finding (navigational concept) Laboratory test result [facility] ([facility]) Laboratory test finding (navigational concept) Laboratory test result [facility] ([facility]) Laboratory test finding (navigational concept) Laboratory test result [facility] ([facility]) Laboratory test finding (navigational concept) Laboratory test result [facility] ([facility]) Laboratory test finding (navigational concept) Laboratory test result [facility] ([facility]) Laboratory test finding (navigational concept) Laboratory test result [facility] ([facility]) Laboratory test finding (navigational concept) Laboratory test result [facility] ([facility]) ID Date Data Source [id number] 02/18/2020 10:40:49 AM EDT [facility] Name Value Range Interpretation Code Description Data Aby rce(s) Supporting Document(s) Progress Note [facility] DDZQPr9dHqVYYhKv40/UGLsgIDTug5PcUTssERm7JXkqXJQlV7EiFJQ0gU2yZSN2OEvNReFsJkGeMrId [facility] [file] K4ukfxsKjtqejhaF+3gSqmlxvsz9L7izx28m31gd9y +BhpyaVhgF/kmxOOb5jY2JKYImGm7QIh98co+9cdOtTVQaKD7c/4uRyhwUhsPcicSXG46l5eaT+yPvWP dAjsSl4KCNhyzd9/I/tiaxapH0P1HCsDWej5ZzYPIQMcBLS0RND+BBHTKNDksdRB0EO/gYGOKH8Yrn+b jKZ+BSVji09dna67NyF2IPTAsOacF11eC8CiA7QbuV u4FKwDA7Iuvl/gmvzNrMaVW8tVLt/9H1U93IdWQl2EVoEss4D778aQgQgpnSdYBYpFfJb6gmyKh+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 [file] AgICAgICAgICAgICAgICAgICAgICAgICAgICAgICAg ICAgICAgICAgICAgICAgICAgICAgICAgICAgICAgICAgICAgICAgICANCiAgICAgICAgICAgICAgICAg ICAgICAgICAgICAgICAgICAgICAgICAgICAgICAgICAgICAgICAgICAgICAgICAgICAgICAgICAgICAg ICAgICAgICAgICAgICAgICAgICAgICANCiAgICAgIC AgICAgICAgICAgICAgICAgICAgICAgICAgICAgICAgICAgICAgICAgICAgICAgICAgICAgICAgICAgIC AgICAgICAgICAgICAgICAgICAgICAgICAgICAgICAgICANCiAgICAgICAgICAgICAgICAgICAgICAgIC AgICAgICAgICAgICAgICAgICAgICAgICAgICAgICAg ICAgICAgICAgICAgICAgICAgICAgICAgICAgICAgICAgICAgICAgICAgICANCiAgICAgICAgICAgICAg ICAgICAgICAgICAgICAgICAgICAgICAgICAgICAgICAgICAgICAgICAgICAgICAgICAgICAgICAgICAg ICAgICAgICAgICAgICAgICAgICAgICAgICANCiAgIC AgICAgICAgICAgICAgICAgICAgICAgICAgICAgICAgICAgICAgICAgICAgICAgICAgICAgICAgICAgIC AgICAgICAgICAgICAgICAgICAgICAgICAgICAgICAgICAgICANCiAgICAgICAgICAgICAgICAgICAgIC AgICAgICAgICAgICAgICAgICAgICAgICAgICAgICAg ICAgICAgICAgICAgICAgICAgICAgICAgICAgICAgICAgICAgICAgICAgICAgICANCiAgICAgICAgICAg ICAgICAgICAgICAgICAgICAgICAgICAgICAgICAgICAgICAgICAgICAgICAgICAgICAgICAgICAgICAg ICAgICAgICAgICAgICAgICAgICAgICAgICAgICANCi AgICAgICAgICAgICAgICAgICAgICAgICAgICAgICAgICAgICAgICAgICAgICAgICAgICAgICAgICAgIC AgICAgICAgICAgICAgICAgICAgICAgICAgICAgICAgICAgICAgICANCiAgICAgICAgICAgICAgICAgIC AgICAgICAgICAgICAgICAgICAgICAgICAgICAgICAg ICAgICAgICAgICAgICAgICAgICAgICAgICAgICAgICAgICAgICAgICAgICAgICAgICANCjw/kMGpQ0ex wKQbtqD0P8diMz7SCi9JUH2sz8NySDThSNmhunGoGdvPDiVbBCHwKzvBLnd9NKhuBT7JrAAlC4ZtJ2Sj DBztBX9TOJGwNYJwvCXjTKFbPOShEuM1TRPbFWnvQY 4EcBZaPAmwNKDkYCAsUrLyVDMdLYRkLAKqJIHcWKPPKKLyLMTdFgRcCJWoFSBjKLogCGROTCC1LIChOt UtPSRfLACjRrOjIUOIGW6RRdLvY7IpoJ72IVFlCOf+Vs1BRQ9kr1JmXOt8UcLaXZ7asd6GTVfKDhYrU5 SaquK6MZX4JTEfJh9RUORbIZNrwBZ3PTQfNYCKPsLb A7AelZ34BDCMAy7+DOsghlUyLjzAPtT5TGOky4KvWLm9TA0HCOWxCKu0uEQvDRBjR3Kfy9IdBh31LMUm XniqFfgqzngpm24uXQi5TTQFDCSjhTV1GpOrDpEjEmMtWEF5OTByWW1oLLhlMG4YZKE2LHfzNCBrPINs H6yMAvWrMKEyYRVwqIbwHM9MUcFxH3FuxpFszLG5Gl AwIFINCj4+JKxdriTnPosUDzS3DNQji3NcJOd6LN4NZUMoSQumXH7OKELddC0xRFevUZ7GQuI9CYJpWV JGTuJgD65qrMAxRNc5I0ZcKkZfMTUuNwjcKUWbOKckIhGxZEUvFpBfJEivFR6+ID4+OKhrRD6NKWxnws KsKDQgZy6EAIFxVEUbRB6vVJIzGJMeL4S5cOezFAZK RnToV7lrejooVC3iDTLjR285jFsmqkPnIXMvSUIkJv1TUNNaQHK3YGXomGNqSGSeNVKRFJvxGN4LeRRb JKY6fO9sMRfjHQApKVHpC9nXMoMbvClvBA96lEocbeNcsNOoBRj+Fj2RSL8xd9InVAo8vvRwXOxfJCZ9 WTdaFDGiBXKjUHMlBPU5AWX8ADMJReDuHQTlRVRyZB pfONEpWGXcvt8AUPHaOWY1PDIvGXIaHCIqARAiWDirBFWmYCV6GiX8UEIzIWRoYD1KVjPoBMDkUELfBW fmXVRoNIDlwy0BXDOrFQTyOkl2FsJdMJJlPUWxGQrwLZBbWSI3PoJqPDWpFIAnVB0BWpDhRRPeSEh3MV BaKHErDKInll0ZVMMeOIYxPYQdDOOgDOTwMRLnYKog NLQnOBNnTXHdZXXzMOBhZT5YCqJtLDAbPQJrEGVcKICtLBRxxs8YSPXkMITpOUS8IEGrHGQgAGWfKHzq GBWlIZZ1PtK1KPJdKHAaFO5YJkIrRNPoLxNqWkFaDURsHUTwyz3NOCHjWXJyRKT1KABjMKGiARWuVPed VAEjMFM2TQX7OXQfNKJzXU5ONrQpDMObZmP7YvMpGC WrFNNqak1BBCJuJARdZvk6KyOjMYTzEMHsYVfxQGHdRBR5WCIbUSNdRVPmNS2LZfZjDPHiSpT4JXmnEX TrEICxpj5RVVYgDSMtQLI9ZIHxDGPbPFDeTYwcCNFnOFZ2FyF0JVYbUCGtQE4RXrUlRANjKnM4FHWgRD MtKSGlnc3JEGCdFMXqGcVkOXOiGCJjSXKtHDypBNJv BIB8PgCeXEFsTYMqNX0BOfRtMCWnFrczZrRpGYXvJIZjjh9EBOEkQNLnWJG3BGYyATDsOXGoZFcrBZSi ENV8IdMfQPPsVWHnFE0PPuKgRGGxNcy7YYKqWUBgHLEnxm8VPPOeBNGsMIajVdAgHFQyABGjBTggCTUc EGHbKJRoPICpPGLpGV9HTzLoVJImWPK8MaWkOPXhPI Pvaj2OZAKfOKU1VRw3SJWqITRvMWDuHEioASThDBShBCT4TWVsUUEcHT9WIlGwADKaQEYlQMCqSWZzVK Hgpv3OQKIjOVV2AcF1PCWqSOVzHBVvBQygFFVkWGCbQwHzJDFaLKHvPI6DWkPnNTNyZEZ0NGMpLMOtQG Rkoh8FMRWgSVE4EuN0WqNhSDMxTEDwZYekHMAjNNL3 PiG0BTJhSMRpMV6YYvJcEQMeNVZ8PNElOTYuTQBrvh2NUNLtHMQ4MVs6UsEtOMNsZGHxYJkaGOFfKDS9 CYI1NZGdHWNmCW2YTdYrWOCeGVS7XETvYOVzDGEfar2SYCBvCXH1Tva6WyPtPXFcVVPsZYncCZXqAWI8 LOOoKAUrOETwGG3FTzKeQUpgLFFOTpq7QWvnA5v7BT D0Gv1SL1Tza6PvBAEmOPKKWFtiMC9zfzMvYMPrRf6IK8iYMec2NlKcMOS2SHG4DCQ0OVP1ViUrK3KyIJ FrXRM9ZopoGy0bKTp6PSDdFOolKye2JQJuJoZ2IrWnF8GqWUH9UbvvVpXxSvYfXC3DOt2GFeT9QYY8gG OfZl7DZSgvRvtDVvCzTE3JDLq= ID Date Data Source [id number] 02/11/2020 09:14:00 AM EDT [facility] ([facility]) Name Value Range Interpretation Code Description Data Aby rce(s) Supporting Document(s) Coronavirus 2019 Nasopharygeal Laboratory test result [facility] ([facility]) Testing was performed using the [employer] S ARS-CoV-2 assay. This test was developed and its performance characteristics determined by [employer]. This test has not been FDA cleared [...] the authorization is terminated or revoked sooner. When diagnostic testing is negative, the possibility of a false negative result should be considered in the context of a patient's recent exposures and the presence of clinical signs and symptoms consistent with COVID-19. An individual without symptoms of COVID-19 and who is not shedding SARS-CoV-2 virus would expect to have a negative (not detected) result in this assay. Performed at: [address] [id number] [place] Laborer: Tammy Sarmiento MD, Phone: [phone] Not Detected ID Date Data Source [id number] 02/11/2020 09:14:00 AM EDT [facility] Name Value Range Interpretation Code Description Data Aby rce(s) Supporting Document(s) SARS CORONAVIRUS 2 RNA [facility] This lab was ordered by [facility] and reported by [facility]. ID Date Data Source [id number] 11/29/2019 03:30:00 PM EDT [facility] ([facility]) Name Value Range Interpretation Code Description Data Aby rce(s) Supporting Document(s) Ast/Sgot 21 U/L 7-37 Normal (applies to non-numeric resul ts) [facility] ([facility]) Bilirubin,Total 0.2 mg/dL 0.2-1.0 Normal (applies to non-numeric results) [facility] ([facility]) Alkaline Phosphatase 65 U/L 45-117 Normal (applies to non-num eladio results) [facility] ([facility]) Bilirubin,Direct 0.1 mg/dL 0.0-0.2 Normal (applies to non-numeric results) [facility] ([facility]) Alt/SGPT 23 U/L 12-78 Normal (applies to non-numeric resul ts) [facility] ([facility]) Albumin/Globulin Ratio 1.06 1.00-1.93 Normal (applies to non-numeric results) [facility] ([facility]) Total Protein 7.4 GM/DL 6.4-8.2 Normal (applies to non-numeric re sults) [facility] ([facility]) Albumin 3.8 GM/DL 3.2-5.2 Normal (applies to non-numeric resul ts) [facility] ([facility]) ID Date Data Source [id number] 11/29/2019 03:30:00 PM EDT [facility] ([facility]) Name Value Range Interpretation Code Description Data Aby rce(s) Supporting Document(s) White Blood Count 11.0 10 4.0-10.0 Above high normal [facility] ([facility]) Red Blood Count 4.34 10 4.00-5.40 Normal (applies to non-numeric results) [facility] ([facility]) Hemoglobin 13.6 g/dL 12.0-15.5 Normal (applies to non-numeric resul ts) [facility] ([facility]) Hematocrit 41.1 % 36.0-47.0 Normal (applies to non-numeric resul ts) [facility] ([facility]) Mean Corpuscular HGB Conc 33.1 g/dL 32.0-36.5 Normal (applies to non-numeric results) [facility] ([facility]) Mean Corpuscular Hemoglobin 31.3 pg 27.0-33.0 Norm al (applies to non-numeric results) [facility] ([facility]) Red Cell Distribution Width 18.6 % 11.5-14.5 Above high normal [facility] ([facility]) Mean Corpuscular Volume 94.7 fl 80.0-96.0 Normal ( applies to non-numeric results) [facility] ([facility]) Greenlee % 7.3 % 0.0-5.0 Above high normal [facility] ([facility]) Platelet Count, Automated 216 10 150-450 Normal (applies to non-numeric results) [facility] ([facility]) Neutrophils % 60.4 % 36.0-66.0 Normal (applies to non-numeric re sults) [facility] ([facility]) Lymph % 19.8 % 24.0-44.0 Below low normal [facility] ( [facility]) Immature Granulocyte % 0.5 % 0-3.0 Normal (applies to non-n umeric results) [facility] ([facility]) Eos % 11.1 % 0.0-3.0 Above high normal [facility] ([facility]) Baso % 0.9 % 0.0-1.0 Normal (applies to non-numeric resul ts) [facility] ([facility]) Neutrophils # 6.6 10 1.5-8.5 Normal (applies to non-numeric re sults) [facility] ([facility]) Nucleated Red Blood Cell % 0.0 % 0-0 Normal (applies to n on-numeric results) [facility] ([facility]) Greenlee # 0.8 10 0.0-0.8 Normal (applies to non-numeric resul ts) [facility] ([facility]) Lymph # 2.2 10 1.5-5.0 Normal (applies to non-numeric resul ts) [facility] ([facility]) Eos # 1.2 10 0.0-0.5 Above high normal [facility] ([facility]) Baso # 0.1 10 0.0-0.2 Normal (applies to non-numeric resul ts) [facility] ([facility]) ID Date Data Source [id number] 11/29/2019 03:30:00 PM EDT [facility] ([facility]) Name Value Range Interpretation Code Description Data Aby rce(s) Supporting Document(s) Glucose, Fasting 94 mg/dL 70-100 Normal (applies to non-numeric results) [facility] ([facility]) Glomerular Filtration Rate Laboratory test result Normal (applies to non- numeric results) [facility] ([facility]) <content>Units are mL/min/1.73 m2</content>
<content></content>
<content>Chronic Kidney Disease Staging per NKF:</content>
<content></content>
<content>Stage I & II GFR >=60 Normal to Mildly Decreased</content>
<content>Stage III GFR 30- 59 Moderately Decreased</content>
<content>Stage IV GFR 15-29 Severely Decreased</content>
<content>Stage V GFR <15 Very Little GFR Left</content>
<content>ESRD GFR <15 on SPEAR FISHER</content>
<content></content> Creatinine For GFR 0.80 mg/dL 0.55-1.30 Normal (applies to non -numeric results) [facility] ([facility]) Blood Urea Nitrogen 9 mg/dL 7-18 Normal (applies to non-nume mike results) [facility] ([facility]) Sodium Level 139 meq/L 136-145 Normal (applies to non-numeric res ults) [facility] ([facility]) Potassium Serum 4.3 meq/L 3.5-5.1 Normal (applies to non-numeric results) [facility] ([facility]) Carbon Dioxide Level 29 meq/L 21-32 Normal (applies to non-num eladio results) [facility] ([facility]) Chloride Level 106 meq/L 98-107 Normal (applies to non-numeric r esults) [facility] ([facility]) Calcium Level 9.2 mg/dL 8.8-10.2 Normal (applies to non-numeric re sults) [facility] Anion Gap 4 meq/L 8-16 Below low normal [facility] ( [facility]) ID Date Data Source [id number] [facility] Patient Name: ABDULKADIR [id number] Date of : 1955[place] [address] Date of Exam: 11/29/2019PH#: Fax: [phone] EXAM: CHEST (2 VIEW) X-RAYCLINICAL INFORMATION: History of acute bronchitis with cough.Comparison, multiples, the latest 10/27/2019. Lung base images from a CT ofthe abdomen and pelvis 10/27/2019 also reviewed.Two views. These images were obtained using digital radiography.There is a tiny 6 mm sized nodular density in the right lower lobe justsuperior to the diaphragmatic surface of the right lung. This waspreviously silhouetted out by the diaphragmatic surface of the right lungon the prior exams of 10/27/2019 and 07/30/2019, however, that area was wellvisualized on 07/30/2019 and the small nodule was not present on that exam.Lung base images of 10/27/2019 showed subsegmental atelectatic changes onthe right.The pleural angles are sharp. There are no patchy opacities in the lungfields. The heart is not enlarged. The osseous structures are normal.IMPRESSION:Tiny nodular density in the right lower lobe as described above, likely theresidual of right lung base subsegmental atelectatic change. Considerfollowup.ELOY Wooten /Eamon you for referring DUY RODRIGUEZ to our office. Electronically Signed - JARROD J ZAPATA, DO 11/29/19 16:55 Name Value Range Interpretation Code Description Data Aby rce(s) Supporting Document(s) ID Date Data Source [id number] 11/27/2019 01:45:00 PM EDT [facility]) Name Value Range Interpretation Code Description Data Aby rce(s) Supporting Document(s) Coronavirus 2019 Nasopharygeal Laboratory test result [facility] ([facility]) Testing was performed using the [employer] SARS-CoV-2 test. This test was developed and its performance characteristics determined by [employer]. This test has not been FDA cleared [...] the authorization is terminated or revoked sooner. Performed at: - [facility] [id number] [place] Laborer: Tammy Sarmiento MD, Phone: [phone] Not Detected ID Date Data Source [id number] 11/27/2019 01:45:00 PM EDT [facility] Name Value Range Interpretation Code Description Data Aby rce(s) Supporting Document(s) SARS CORONAVIRUS 2 RNA [facility] This lab was ordered by [facility] and reported by [facility]. ID Date Data Source [id number] 11/06/2019 09:53:38 AM EDT [facility] Name Value Range Interpretation Code Description Data Aby rce(s) Supporting Document(s) Progress Note [facility] NTHWPz8pKlRFWbIb95/WAOdsNFTji2KxKZuzSZc6HQirYXWvD3PbYZW2dE1cUJD9SPeQQtSqThIaFuJo [facility] WpYwaQBpYoJIDjJlrGFkRsWVnyWnfmjMImXB0ZjRD5PPMcQ29aZIVbVQFgB6ViCAP5KIa+Tu1ZUUSjrU AgWQ9TMtlE4M1boxpROj7qyR/PTpJyI0Jet700BqCY+BXqmXRSPjOGnN0Y0VtfdQMHDVdO/vro69NoIr mqNCt5CK36LHQghm0dxpDfYoh2YAx792+nY8aj92jM /5f/eSTldvkcq78Nj5ENA0ho/skGkQ+0l3hx+UH+T+P//zGdiaJ2btC4KZA/ahrRMYND8vOtAgs/evBk nk8aDvRNznHomQSnQqS8J90WecGcxZM45lxSA9S/d0vnE91wG/C1LS1gWM5fU2kf9DZJunEC3iDx63ra RJu53kOjHfo8YhwpOJWpN46rP/XoSe389uWqUIPku7 EIv0YscH62WIqbFwzQx6lq9L7y91XpdMKr7Z0pmkgjWeDr88krq4X9uqe+G8cpvGuR2wNVf3F5pbVgnJ dVohImk8biI9BGyO0kEeOHozuMqGvLV6QvI3Q8lteohqgbb/l3yY32V22KoEJkC5ku5NYwhi64nCQAwv Vknn3/hA0rEoHESEI5hG1XU+tky9oWg2txQvbPrhB3 MBrNsmuH+bpHt4nZsek/VG/7B/3n6iT/j2Eu4hSOLOpnu6Hw/6Pff140zwUM2vpiRD3gqe5olhnZzPKL hANOYAOThl451aC1Yy+WILg3KREcytk9VJIpCUO81amUJJ9oUr9rvI4ljm77mEkHBcB6JoUYT5dl9wd7 dOUVvlQX+K31ocFt9NnBal6kzONmc9zBIzWchB4YVm 6BTAPTNFBHpjjry3u1H+tcF76oIcoM3Q6dyHlRSzfasBM+tPMGXrQZr9M5NRkBpPIfp3FYtFRgRm82kZ Gf0X4fUf7HwDX9dNdTpgl+qzju165+62jGIeOB1joh56Uu5+oihf9ik5tK0xlkIH+SE8lJmolcT4r8Gl cQb2l1gz9kDJNtu1I3zecN8dohRUuN0hvkI5Aahr5U RO9wr9Oiy+joSVKFRuaaw3I6uPc2ydGOWrlijPbq2xKYvbXVqjCm7wFdfz91JgUwjpUbQ5HlwoYVh8g8 pTNXm8+cDr0X/c6hNGaSBiBDdBTVuMelMHlSGiWzgZshbEcBbT3veAXeXlQBvYuZ8rSRnScz8sgKpt/K oPGwL4Zx7yaelyYyvzVJvM1mtAoACowZV+CsK7l6oD RpW2Pm6lE2wOqmuuxI3nyPmCW10DI2S93ephntT/lOpsGoi2GiKW0ulvv0lYzrXQ16nZ0V4wrhTmRz9G xLV+DzB5VbUcFKKYvrvzupEu5uzb8jo8z08Z4DCHFlBuI32si5U7pgLwHeE5Il9qHDaHiDuJqwPcj4dq Smh7Sp51wv95v6+++ed6r/8R/[employer] ENGINEER+eAq5d0Se0wsx01 [file] ogICAgICAgICAgICAgICAgICAgICAgICAgICAgICAgICAgICAgICAgICAgICAgICAgICAgICAgICAgIC AgICAgICAgICAgICAgICAgICAgICAgICAgICAgICAgICAgICAgICAgDQogICAgICAgICAgICAgICAgIC AgICAgICAgICAgICAgICAgICAgICAgICAgICAgICAg ICAgICAgICAgICAgICAgICAgICAgICAgICAgICAgICAgICAgICAgICAgICAgICAgICAgDQogICAgICAg ICAgICAgICAgICAgICAgICAgICAgICAgICAgICAgICAgICAgICAgICAgICAgICAgICAgICAgICAgICAg ICAgICAgICAgICAgICAgICAgICAgICAgICAgICAgIC AgDQogICAgICAgICAgICAgICAgICAgICAgICAgICAgICAgICAgICAgICAgICAgICAgICAgICAgICAgIC AgICAgICAgICAgICAgICAgICAgICAgICAgICAgICAgICAgICAgICAgICAgDQogICAgICAgICAgICAgIC AgICAgICAgICAgICAgICAgICAgICAgICAgICAgICAg ICAgICAgICAgICAgICAgICAgICAgICAgICAgICAgICAgICAgICAgICAgICAgICAgICAgICAgDQogICAg ICAgICAgICAgICAgICAgICAgICAgICAgICAgICAgICAgICAgICAgICAgICAgICAgICAgICAgICAgICAg ICAgICAgICAgICAgICAgICAgICAgICAgICAgICAgIC AgICAgDQogICAgICAgICAgICAgICAgICAgICAgICAgICAgICAgICAgICAgICAgICAgICAgICAgICAgIC AgICAgICAgICAgICAgICAgICAgICAgICAgICAgICAgICAgICAgICAgICAgICAgDQogICAgICAgICAgIC AgICAgICAgICAgICAgICAgICAgICAgICAgICAgICAg ICAgICAgICAgICAgICAgICAgICAgICAgICAgICAgICAgICAgICAgICAgICAgICAgICAgICAgICAgDQog ICAgICAgICAgICAgICAgICAgICAgICAgICAgICAgICAgICAgICAgICAgICAgICAgICAgICAgICAgICAg ICAgICAgICAgICAgICAgICAgICAgICAgICAgICAgIC AgICAgICAgDQogICAgICAgICAgICAgICAgICAgICAgICAgICAgICAgICAgICAgICAgICAgICAgICAgIC PwXKOzRTTnTYGyGNAeURCgDRPrHSSdTERbECWyVLQrJFZdHNAoBPVzXLRbELGhMSQoDHb7P3byJEYuZK YqDO7cAPt8Mu7+ZIiKZsKiPPC0zzPcwS2UPI8ru4Qo DZppZNXxz9LrDJz9WG3IRJJcMMokYB9KDGhber9PPFTdTOZmxSALt2uuDfNtBYA1EOWgQgzeTY3BDACg L3snyoSzTBGeVHJZOJnkNTFPEHgpEAXUTXQlELCwZpDfGeJjSBAbZQBlFNBHUTP3ULWqXxXfYODjMXFe EaBuOXRCOYWgLTAgQzSmLUjoRM3Ib4BqjKJxGL2EPl 2CXdHqFC7vot5CVHJfDONaDgtJLzn1IErnAE4ZmFTyaCZ8XRRdKSLSKuAmF6chi5MhLXYjEDLZMNgxAV 1Vo5OvrTQoKQl+Gh6DOJ6ls4LfMSm0BTEoYV7spv1CVMjFZjBfN2PycJwfXGAqc6jgDLXnIL0bhOBxDG A3RDgeUG3guE5tAsWHpCalSISfFIYeVx61VlSyXvQr IJU3FNTlTP4oQKxjJW6ZWRJ1JGzrJVUbAVIbX1zZTdUzDEH5DxYmsRcqFE2MBjQjC2XczfVmjCB5EyKm IFINCj4+OGxmxeQfNgkVBrU5IKSmg4NeZSl8ID1EEPZnWRflWK1ZFIFbeI3gJQgzBH2NCqP3PDMhDUBR XiBbO34rkNBqZSk0K1VmXiGrSWVwTfdsTVUyNGzfNi FtZXMgWyBdDQogID4+ID4+YKhwPY3XOQqqhcKeDGEhTd0GMWPvHNMuJP0eKHBhCNKsO2N8wEanORSTDo QuC5kzvvvoOF9iCWNoV139pBqzpmUhGDElTOIbFw5GHQCjVAH4BIAcpICwSGZqUJQASIcgSQ7LfUJnHQ H0xG7wAZvdJCCnVFVgN1qFWfZvdUeeVE92tHredcAq bCBdDQo+Yh3UXQ9vs5UwNEm6ubKjUAewBGH2VFbnFYEdZHDgLLCeCAQ0TJW4YVGJSfVtMVIdYXRdBPxf FOAfYDSlnr2AEBEsSHM5ARNuIsUtHBAsZXHlQBpiOXAlXMH5OMK8JZMtSEUgEF8BMkSxNPFpXAKyBMvm FAFtIZAglk9RXIGsRLZvDTUtMgMiFTGuSLFlOVshEY CcQKK5CuKnMGMjMKKyFD0LNzIdNNSoDPf1OkSdUKCaCCYzgy1BMHAbMJEwFUVlSYOuCSBcBEWbWQxpXN EdIWApRKCcFBKpCLCsGM6SPqKhHPXpMYNqZVVnGNFmUZSpdm0CJDTjUVYxJAHaTnMbNWQuMYVoWMlkGY OwMVP1SeX5KWEuCRVtOO9FNwIiVBIqRdX7FmmnESJr MZDfav5ZVBOhHHVdWTWbWKYmGJTmUTFsKEhtVLBjWMS5HIC8CASgMJYiRN2FRdNgZPMtFiY1AIGjMMUz GVDnkc5ZCEVrVQPlXNB9WWPhCNNkEUCuVNhnVUEeWKK5ItqsQJKcUBAeKQ0MWxAyTWXqWiB1ZzcpKBTd BVTxji2RXUYuFHWqMZcsELGiIKNoWLDjIWssKAHlVO I6AHH3WJRiYJVnDU9ATuRtEKUlKfGbPvRfSAJzFRYdds3WBLBlBRJlJwLzHuVyIIXgYGVsKOrpYSIhSP L1LxRfJVUyXNTlOZ8AHrVyDYXiIom3WnGdSRNfPKRkxa9VMBLgXAQcDmb9IIRqUTOhIMDlNQudKPEmNM G0AUViCJCfKHBnVQ2VPqQnWZRyVsg1JDWjXZBqMWXf ba9AINVpMYXzHTNhUIFvZMGsKIXaIFozCNYcJEB9BcPcFZFsGVYjHB9GVjMbKDEfVEE5SgGaBEFdOFNh yh4YBSVaWAH4ZGL2OnBaAPMwBFHaGJivCEXjPKXpHvT6JEKxVIGgHW0IQsNqEZZmDTZ8TDGsSELgVOFk nq4LHRKxOWX0RHO6XlZyCUBeYVUtNLiuUIDyYPTiHr Z6IUNyJJOzRZ5TVgFyDSXlZNS5KWCgFHOaQLWypc9KNXDxXHA5Zat6DXFwOFCjSILmKGazMGAcMWSgMR Z3NZRuKMKdHJ4EVkCfHABnFYAyDMZxQZDeNIHwxq7ZFPFrWOB9QXK8TJFmLQHuQBXgSKadRXOnIAR4Dh K2KKJdBDWwPK8ZSpHeGMMmJBQjCZvjUSJzHLUjla3O BTLdJZL7ItA9GXAiCXGaEYDkIOkoEYVjGWL1QNC7DRVpWFRhHP2EBmYvQIsvWDBIBaq9KZzsF2q1QPX8 Qv4KT2Kky6NuIOGzBRDMBZrhQC0cgsRqEWNmBo3JQ9nQKqafFPJ9GVj5XUB0WWK6UiJuL4JlYfFgOgQ1 HqCdQtFyZd6jAAFaNfHgClH7LKfbXXcpQPN2HfK6TK C0GVEkXxGtNSXhIcFpWV4COs8BSkY3ZPL4jJBtDb5AKSJ4IrbAUlIwCU0YCNr= ID Date Data Source [id number] 10/27/2019 11:58:00 AM EST [facility] ([facility]) Name Value Range Interpretation Code Description Data Aby rce(s) Supporting Document(s) Gastrointestinal (GI) Panel Laboratory test result [facility]) This Gastrointestinal PCR Panel detects the following bacteria, parasites and viruses: Campylobacter (jejuni, coli and upsaliensis), Clostridium difficile (toxin A/B), Plesiomonas shigelloides, Salmonella, Yersinia enterocolitica, Vibrio (parahaemolyticus, vulnificus and cholerae), Vibrio clolerae, Enteroaggregative E. coli (EAEC), Enteropathogenis E. coli (EPEC), Enterotoxigenic E. coli (ETEC) it/st, Shiga-like producing E. coli (STEC) stx1/stc2, E.coli O157, Shigella/Enteroinvasive E. coli (EIEC), Cryptosporidium, Cyclospora cayetanensis, Entamoeba histolytica, Giardia lamblia, Adenovirus F 40/41, Astrovirus, Norovirus GI/GII, Rotavirus A and Sapovirus (I, II, IV, V). NEGATIVE by MULTIPLEXED NUCLEIC ACID PCR ID Date Data Source [id number] 10/27/2019 11:09:00 AM EST [facility] ([facility]) Name Value Range Interpretation Code Description Data Bay rce(s) Supporting Document(s) Magnesium [Mass/volume] in Serum or Plasma 4.8 mg/dL 1.8-2 .4 Above upper panic limits [facility]) ID Date Data Source [id number] 10/27/2019 11:09:00 AM EST [facility] ([facility]) Name Value Range Interpretation Code Description Data Aby rce(s) Supporting Document(s) Glucose, Fasting 108 mg/dL 70-100 Above high normal [facility] ([facility]) Glomerular Filtration Rate 34.8 Below low normal [facility] ([facility]) <content>Units are mL/min/1.73 m2</content>
<content></content>
<content>Chronic Kidney Disease Staging per NKF:</content>
<content></content>
<content>Stage I & II GFR >=60 Normal to Mildly Decreased</content>
<content>Stage III GFR 30- 59 Moderately Decreased</content>
<content>Stage IV GFR 15-29 Severely Decreased</content>
<content>Stage V GFR <15 Very Little GFR Left</content>
<content>ESRD GFR <15 on SPEAR FISHER</content>
<content></content> Blood Urea Nitrogen 32 mg/dL 7-18 Above high normal [facility] ([facility]) Creatinine For GFR 1.58 mg/dL 0.55-1.30 Above high normal [facility] Potassium Serum 5.9 meq/L 3.5-5.1 Above high normal [facility] ([facility]) Sodium Level 130 meq/L 136-145 Below low normal [facility]) Chloride Level 100 meq/L 98-107 Normal (applies to non-numeric r esults) [facility] ([facility]) Carbon Dioxide Level 22 meq/L 21-32 Normal (applies to non-num eladio results) [facility] ([facility]) Anion Gap 8 meq/L 8-16 Normal (applies to non-numeric resul ts) [facility] Calcium Level 7.0 mg/dL 8.8-10.2 [facility] ID Date Data Source [id number] 10/27/2019 09:18:00 AM EST [facility] ([facility]) Name Value Range Interpretation Code Description Data Aby rce(s) Supporting Document(s) Laboratory test finding (navigational concept) 128 mg/dL 7 0-105 Above high normal [facility]) Laboratory test finding (navigational concept) 124 meq/L 1 36-145 Below low normal [facility] Laboratory test finding (navigational concept) 46.0 % 3 8.0-51.0 Normal (applies to non-numeric results) [facility] ([facility]) Laboratory test finding (navigational concept) 4.1 mg/dL 4 .5-5.3 Below low normal [facility] ([facility]) Laboratory test finding (navigational concept) 5.5 meq/L 3 .5-5.1 Above high normal [facility] ([facility]) Laboratory test finding (navigational concept) 19.0 MM/L 2 3.0-27.0 Below low normal [facility] ([facility]) Laboratory test finding (navigational concept) 98 meq/L 9 8-109 Normal (applies to non-numeric results) [facility] ([facility]) Laboratory test finding (navigational concept) 33 mg/dL 8-26 Above high normal [facility] ([facility]) Laboratory test finding (navigational concept) 1.7 mg/dL 0 .6-1.3 Above high normal [facility] ([facility]) ID Date Data Source [id number] 10/27/2019 09:16:00 AM EST [facility] ([facility]) Name Value Range Interpretation Code Description Data Aby rce(s) Supporting Document(s) Glucose, Fasting 123 mg/dL 70-100 Above high normal [facility] ([facility]) Creatinine For GFR 1.74 mg/dL 0.55-1.30 Above high normal [facility] ([facility]) Glomerular Filtration Rate 31.2 Below low normal [facility] ([facility]) <content>Units are mL/min/1.73 m2</content>
<content></content>
<content>Chronic Kidney Disease Staging per NKF:</content>
<content></content>
<content>Stage I & II GFR >=60 Normal to Mildly Decreased</content>
<content>Stage III GFR 30- 59 Moderately Decreased</content>
<content>Stage IV GFR 15-29 Severely Decreased</content>
<content>Stage V GFR <15 Very Little GFR Left</content>
<content>ESRD GFR <15 on SPEAR FISHER</content>
<content></content> Blood Urea Nitrogen 37 mg/dL 7-18 Above high normal [facility] ([facility]) Potassium Serum 5.4 meq/L 3.5-5.1 Above high normal [facility] ([facility]) This specimen has an elevated potassium level but there is NO visible hemolysis noted. Sodium Level 125 meq/L 136-145 Below low normal [facility] ([facility]) Chloride Level 96 meq/L 98-107 Below low normal [facility] ([facility]) Calcium Level 8.6 mg/dL 8.8-10.2 Below low normal [facility] ([facility]) Carbon Dioxide Level 18 meq/L 21-32 Below low normal [facility] ([facility]) Anion Gap 11 meq/L 8-16 Normal (applies to non-numeric resul ts) [facility] ([facility]) ID Date Data Source [id number] 10/27/2019 09:16:00 AM EST [facility] ([facility]) Name Value Range Interpretation Code Description Data Aby rce(s) Supporting Document(s) Magnesium [Mass/volume] in Serum or Plasma 5.5 mg/dL 1.8-2 .4 Above upper panic limits [facility]) Lipase [Enzymatic activity/volume] in Serum or Plasma 31 U/L 73-393 Below low normal [facility]) Lactate [Mass/volume] in Serum or Plasma 2.6 mmol/L 0.4-2.0 Above upper panic limits [facility] ([facility]) Y/N query for Sepsis Lactate Rule: Y ID Date Data Source [id number] 10/27/2019 09:16:00 AM EST [facility] ([facility]) Name Value Range Interpretation Code Description Data Aby rce(s) Supporting Document(s) Alt/SGPT 22 U/L 12-78 Normal (applies to non-numeric resul ts) [facility] ([facility]) Ast/Sgot 34 U/L 7-37 Normal (applies to non-numeric resul ts) [facility] ([facility]) Alkaline Phosphatase 72 U/L 45-117 Normal (applies to non-num eladio results) [facility]) Bilirubin,Total 0.7 mg/dL 0.2-1.0 Normal (applies to non-numeric results) [facility] ([facility]) Total Protein 7.2 GM/DL 6.4-8.2 Normal (applies to non-numeric re sults) [facility] ([facility]) Albumin 3.4 GM/DL 3.2-5.2 Normal (applies to non-numeric resul ts) [facility] ([facility]) Bilirubin,Direct 0.2 mg/dL 0.0-0.2 Normal (applies to non-numeric results) [facility] ([facility]) Albumin/Globulin Ratio 0.89 1.00-1.93 Below low normal [facility] ([facility]) ID Date Data Source [id number] 10/27/2019 09:16:00 AM EST [facility] ([facility]) Name Value Range Interpretation Code Description Data Aby rce(s) Supporting Document(s) White Blood Count 25.0 10 4.0-10.0 Above high normal [facility] ([facility]) Red Blood Count 4.93 10 4.00-5.40 Normal (applies to non-numeric results) [facility] ([facility]) Mean Corpuscular Volume 88.6 fl 80.0-96.0 Normal ( applies to non-numeric results) [facility] ([facility]) Hemoglobin 14.5 g/dL 12.0-15.5 Normal (applies to non-numeric resul ts) [facility] ([facility]) Hematocrit 43.7 % 36.0-47.0 Normal (applies to non-numeric resul ts) [facility] ([facility]) Mean Corpuscular HGB Conc 33.2 g/dL 32.0-36.5 Normal (applies to non-numeric results) [facility] ([facility]) Mean Corpuscular Hemoglobin 29.4 pg 27.0-33.0 Norm al (applies to non-numeric results) [facility] ([facility]) Platelet Count, Automated 294 10 150-450 Normal (applies to non-numeric results) [facility] ([facility]) Red Cell Distribution Width 19.0 % 11.5-14.5 Above high normal [facility] ([facility]) Neutrophils % 91.8 % 36.0-66.0 Above high normal [facility] ([facility]) Eos % 0.0 % 0.0-3.0 Normal (applies to non-numeric resul ts) [facility] ([facility]) Greenlee % 2.8 % 0.0-5.0 Normal (applies to non-numeric resul ts) [facility] ([facility]) Lymph % 4.8 % 24.0-44.0 Below low normal [facility] ( [facility]) Immature Granulocyte % 0.4 % 0-3.0 Normal (applies to non-n umeric results) [facility] ([facility]) Baso % 0.2 % 0.0-1.0 Normal (applies to non-numeric resul ts) [facility] ([facility]) Neutrophils # 22.9 10 1.5-8.5 Above high normal [facility] ([facility]) Nucleated Red Blood Cell % 0.1 % 0-0 Above high normal [facility] ([facility]) Lymph # 1.2 10 1.5-5.0 Below low normal [facility] ( [facility]) Greenlee # 0.7 10 0.0-0.8 Normal (applies to non-numeric resul ts) [facility] ([facility]) Baso # 0.1 10 0.0-0.2 Normal (applies to non-numeric resul ts) [facility] ([facility]) Eos # 0.0 10 0.0-0.5 Normal (applies to non-numeric resul ts) [facility] ([facility]) ID Date Data Source [id number] 08/10/2019 09:45:00 AM EST [facility] Name Value Range Interpretation Code Description Data Aby rce(s) Supporting Document(s) [facility] YOOPLe5uKfNXHiJaWNUfQycVXDmwUKkeHHXiJ0H9HVssNs1JXYiuloXcXNDnYl2+QFLmIW2ccd6vSXJs gMy 5eAKYaKofkP9RjBCPkg22KKVXcNHyGYvDqJSvbYaUfOTBeFTY5POH8HwYrLxjvYG0sJDC3XAYsNZgmRW J4XHWgSmXmFZWpGE7nGIxdACsaYc8JVN1nu0MpHHMuBLCsYnnBKNjaLVvzWHDbEATkUYNdJ405lbAkIK 1YgJRiNAa3UXHxDpD6FRAgLmX1KXJkReTcNfCfFEPy T5Nlz219tmFlckO6QI5LP0KoQVV1OEp7R2kpVgCsMOLyTVUaQB4hYyE0LCRzUk1AaTqeCLDjFNDqTe3U kIi3VQI4QVYgTs4+Pj4+Ee7btuZbRyxVCJGnLR7zqx67EW6EyYWqKY1TKEtyW32aGGafIu32CWmvSTEf TuUbFKu3Sz8dWnKzf7FoX5IkTRx8O5tLFunfR0OeLA hqKF6pPQM4UBMtNt0+Ic3tZWFzFD44YBWlDTLKJ7HxvjJwowOzIGt1QUYqRa9+Rt9gywCnEimTOTOqLC 4wyo68WO3GZP3ksUjbIeWoMZG8K56cbDJaA3mhSqFdJ5QabPhaOGKnKJ8uT5XySHybMNLgVA2lqvEpaM 9ZlFu8BZUsUj4JiPR2GLCqR57aEJQlUZTDEYDzm7Uf WR2Qz0boevQpIEVtSZ2LNPPmY2XDP8HwF1vsbUtzYKWsTQ8HIHemcQUtFJs1LY8HiQGdCJJrG95joM2g XC20ZQu+KaG9xvWwyP6ZdUhae9BZBA632n9C9+MfPq6BnWjMUUOKLCjfTDZK6Y3VmFnETEGGb8Pow6lg 7gwafAYd/OS/4479rZ1nvuf9ii5scvn51h0N36ix56 [file] vC56H16LtBk3vr/xd56FIGI7fwCYU2z+BONDING SUPERVISOR/bpCHZ7Nqtky38h+dUYgJ9y5UFMAdsZQ8Cid30gyJy5BWz [file] 1uEaQur+evp global product [file] medical technician/driver+70oxV [file] precipitator operator [file] V4xqd2gqUvigLPnc7MTgxi935Hzx3UyotqwnbrX0B8ZMjZB0ESdrMF3/Metal Baler/fqBMDaJjTD3v+KapCnCbN [file] superintendent stevedoring+hzFiVjV3nS/N30IdxPPNEHQPyTkgXCx+IYbunnLEGcInQU+iv1PIskWGj7R912xt0NZ9/pjZtUou1 [file] j9UGELlp4Rtdum6k1Z2P/gD+walton+y+qoxY4SyjL7yCxdnLK5JSBOj42cL1g2+BI0GPlMfoQ0D6Hy2d+8h FsRh3UUwi8lbaJQ6icIgh/+L5/5XIj0Sgq1FQ/3pap CBl3OIZKAf4805CYdA7ZezOyDlwy9hBN4vQ9kCbGwNQgl9jP3Reg2vopsx1RAAH8n5IWB+filTe+4HIu D1o1C3XDQq2JCu81to2TywydhPFThM8ixpm3dIaL2brXSs6vcL1XoOAQC/cxlmOrIquTE3ChOhgWeLEZ +dTYO3ve2WKO7mj0EkTBATM2zHP5D/++r6il9CgyUA JU3Qz1MYNiB+5in7fjklIuVKAQuXUkkTODqwdz5fbcOaMo1rTYRJvOXlLI0mbxpyvgl18CdHdD/erTp5 8siZAy6nSLcTKNd5mMeNzZlBNp89BXhgZkKLGhiZi8RZBWL6EFqsqDWWftUdLBlmd+qVSf/h4gykJJL/ RiQsU9LITH9gcy6Ze705td6zC+KFqUoxZSM7lHBdk0 hfaMgCrZnXlYsx99mu5reBshTZ4UFhjkMzBZmnxN4xJd3NegoRJCBkrXKyf2U4SOusHhsx/1MhGw+p6E lL2iWGqyTloHzlBonY+taM0nQK/UGMxBcI3jfgjlAILIgSkMVchpj6JyucV5VoESnBGep5+D7AQZwA4u h8Sd20CQ3JSgwsy0WtNlrDO3rB5Lvqf+kgpcEX0tin 2VnmJa4tIG+o7pgLcAZFo//x4u+m6d8Pe+Rp0r7zajCOxosRFnJzgd07j/Y1xpIK630UvTr8NtE7ca2G T4aPVi6ONLEu2chAIK6wRct5gIG5Lrnp0qrPEyWE0qkq4RtqdRke5RNLxX/Pb3X01kKtrY04vKg2yJk0 FHoCtIZFwazkAURF3ef8cKuko/Wo3s1g0/VgbH1dRn f9k8SZYCcW1+RAIL SPLITTER+t7z/e2/F8jVWt2wrk8OBs7MG5w6mRcUqmDmlo7v2Lxjl5daIIk2LF1XUEeIM1yYA [file] A7lOXhs430vsGauDEt3sbhO++kxuph08ch5nwqaF7r1cFcfvVy30bWx+[place]/dDzi3nQi5RHyTFVQAnYp [file] tRRNC08mHo2upxoHfGvQGIZGLT2MxZQOztZWZPWBcu p4i4PzX/pryilCiupXBAuC9B+4ZFoGXO/4HZKBPE4pQseJfSAHMBT01JLKWtXMl7YUhpWq1as3zgB8Ag ui/kF75N5PxY/RA+EAml2KIcSo7yMEZHfjPBkIPKilbqFDieYZoXS3moGAp1LU404bFbd+yobYo6cBOL vsJ3Z0gnWji6M+kOebhjJu9DfXKfyeU5qXuIY7Ap5X /B8evuNqqC/tBQg2w9OecdS9VGoRDiSDUgiwMdD28kTICwpbsd7Sc6rD+x1y3gfFnmjlhVj52bBUNwDe OHZU7d+GzkzZHUtqQXL9/Q/Vv+iwDRDPID7xiO8d4NkGepqe+4sESahoWoZTybWpT6Ui2falvAS+bNmN NhM1shpCMK4rmv7+G+QnsCjH+7bWjh4B53Xlp [file] cB9lRly62B/+BH0/MqZ4wFA1NOFyA98tu7tf4nW9K7rp4njEywNPbC9vgGKRdaUQAQ1o8JY5SBnf+[place] IYQT8n1yHyDypT6F7CqPPRIi04cL6nAIIeVD10VNhQPv6SvXirkUkV+iCnb1kBk/bT5ehP9c0jC0m6g7 evp global product leadership+0pX8ewM47kYu33X1TKkQT0F5r+7SkNChN1EuZ+Y [file] Rg== ID Date Data Source [id number] 07/30/2019 03:24:00 PM EST [facility] ([facility]) Name Value Range Interpretation Code Description [facility]s) Respiratory Panel This respiratory <SEE NOTE> [facility] ([facility]) This respiratory PCR panel detects Influ nj A H1, H3 and 2009 H1 viruses, Influenza B virus, Resp iratory syncytial virus, Human metapneumovirus, Parainfluenza virus 1, 2, 3 and 4, Adenovirus, Rhinovirus/Enterovirus, Coronavirus HKU1, NL63, OC43 and 229E, Bordetella pertussis, Mycoplasma pneumoniae and Chlamydia pneumoniae. NEGATIVE by MULTIPLEXED NUCLEIC ACID PCR ID Date Data Source [id number] 07/30/2019 03:24:00 PM EST [facility] ([facility]) Name Value Range Interpretation Code Description Data Aby rce(s) Supporting Document(s) Natriuretic peptide.B prohormone N-Terminal [Mass/volu me] in Serum or Plasma 200 pg/mL Above high normal [facility] ([facility]) ID Date Data Source [id number] 07/30/2019 03:24:00 PM EST [facility] ([facility]) Name Value Range Interpretation Code Description Data [facility]) Glucose, Fasting 110 mg/dL 70-100 Above high normal [facility] Glomerular Filtration Rate > 60.0 Normal (applies to n on-numeric results) [facility] ([facility]) <content>Units are mL/min/1.73 m2</content>
<content></content>
<content>Chronic Kidney Disease Staging per NKF:</content>
<content></content>
<content>Stage I & II GFR >=60 Normal to Mildly Decreased</content>
<content>Stage III GFR 30- 59 Moderately Decreased</content>
<content>Stage IV GFR 15-29 Severely Decreased</content>
<content>Stage V GFR <15 Very Little GFR Left</content>
<content>ESRD GFR <15 on SPEAR FISHER</content>
<content></content> Blood Urea Nitrogen 12 mg/dL 7-18 Normal (applies to non-nume mike results) [facility] Creatinine For GFR 0.94 mg/dL 0.55-1.30 Normal (applies to non -numeric results) [facility] ([facility]) Sodium Level 133 meq/L 136-145 Below low normal [facility] Potassium Serum 4.2 meq/L 3.5-5.1 Normal (applies to non-numeric results) [facility] ([facility]) Chloride Level 100 meq/L 98-107 Normal (applies to non-numeric r esults) [facility] ([facility]) Anion Gap 8 meq/L 8-16 Normal (applies to non-numeric resul ts) [facility] Carbon Dioxide Level 25 meq/L 21-32 Normal (applies to non-num eladio results) [facility] ([facility]) Alt/SGPT 22 U/L 12-78 Normal (applies to non-numeric resul ts) [facility] ([facility]) Calcium Level 8.7 mg/dL 8.8-10.2 Below low normal [facility] ([facility]) Ast/Sgot 18 U/L 7-37 Normal (applies to non-numeric resul ts) [facility] Bilirubin,Total 0.3 mg/dL 0.2-1.0 Normal (applies to non-numeric results) [facility] ([facility]) Total Protein 7.0 GM/DL 6.4-8.2 Normal (applies to non-numeric re sults) [facility]) Alkaline Phosphatase 94 U/L 45-117 Normal (applies to non-num eladio results) [facility] ([facility]) Albumin 3.2 GM/DL 3.2-5.2 Normal (applies to non-numeric resul ts) [facility]) Albumin/Globulin Ratio 0.84 1.00-1.93 Below low normal [facility] ([facility]) ID Date Data Source [id number] 07/30/2019 03:24:00 PM EST [facility] ([facility]) Name Value Range Interpretation Code Description Data Aby rce(s) Supporting Document(s) Red Blood Count 3.70 10 4.00-5.40 Below low normal [facility] ([facility]) White Blood Count 8.1 10 4.0-10.0 Normal (applies to non-numeri c results) [facility] ([facility]) Hemoglobin 11.2 g/dL 12.0-15.5 Below low normal [facility] ( [facility]) Mean Corpuscular Hemoglobin 30.3 pg 27.0-33.0 Norm al (applies to non-numeric results) [facility] ([facility]) Hematocrit 36.2 % 36.0-47.0 Normal (applies to non-numeric resul ts) [facility] ([facility]) Mean Corpuscular Volume 97.8 fl 80.0-96.0 Above high normal [facility] ([facility]) Mean Corpuscular HGB Conc 30.9 g/dL 32.0-36.5 Below low normal [facility] ([facility]) Red Cell Distribution Width 15.0 % 11.5-14.5 Above high normal [facility] ([facility]) Platelet Count, Automated 204 10 150-450 Normal (applies to non-numeric results) [facility] ([facility]) Nucleated Red Blood Cell % 0.0 % 0-0 Normal (applies to n on-numeric results) [facility] ([facility]) ID Date Data Source [id number] 07/23/2019 12:00:00 AM EST [facility] Patient Name: DUY RODRIGUEZ [id number] Date of : 1955 1 Date of Exam:07/23/2019CHARISSA Hightower [id number]#: Fax: [id number] EXAM: MAMMO SCREENING WITH CADCLINICAL INFORMATION: Screening.Based on the personal and family history information your patient suppliedat the time of imaging, her lifetime risk of breast cancer estimated by theTyrer-Cuzick model is 6.6%. Given that this patient has less than 20% TCrisk score, no further medical management is currently recommended at thistime.Based on the personal and family history information your patient suppliedat the time of imaging, your patient meets the National ComprehensiveCancer Network testing criteria and elected to meet with our hereditarycancer specialist which may include genetic testing. Results are pending.This test result could increase or decrease your patient's breast cancerrisk estimate. Addendum to follow.Digital screening (2D) mammography was performed bilaterally in the CC andMLO projections. Additionally, breast tomosynthesis (3D mammography) wasperformed bilaterally in the CC and MLO projections. Today's exam wascompared to the prior exam(s).By history, the patient has no complaints of a palpable breast abnormalityor other significant breast complaints.The patient states that a clinical breast exam was not performed.The breasts are unchanged in size and shape. There are no genaro- soft tissuedensities or spiculated masses. There is no internal architecturaldistortion. There are no suspicious genaro-calcific clusters. Skinthickening or nipple retraction is not present.The Volpara volumetric breast density category is B, there are scatteredareas of fibroglandular density.IMPRESSION:BI-RADS Category 1 - Negative Mammogram. Stable mammogram. There is noevidence of malignant alteration of the breasts. Followup examinationrecommended in one year.This mammogram was read with the assistance of [employer], an FDAapproved computer aided detection system for ma mmography.Negative x-ray reports should not delay surgical consultation if a dominantor clinically suspicious mass is present.Not all breast cancers can be identified by mammography. Therefore, werecommend that you continue to perform regular breast self-examination andphysical examination and then promptly contact your physician of anyconcerns or changes.Adenosis and dense breasts may obscure an underlying neoplasm.ELOY Wooten/Eamon you for referring DUY RODRIGUEZ to our office. Electronically Signed - JARROD ZAPATA DO 07/24/19 13:35 Name Value Range Interpretation Code Description Data Aby rce(s) Supporting Document(s) Procedure Social History Code Duration Value Status Description Data Source(s ) Smoking 09/09/2020 12:00:00 AM EST Patient is a former smoker completed Patient is a former smoker [facility] ([facility]) Smoking 06/05/2020 12:00:00 AM EDT Patient is a former smoker completed Patient is a former smoker [facility] ([facility]) Alcohol intake 02/18/2020 12:00:00 AM EDT Current non-d breanna of alcohol (finding) completed Current non-drinker of alcohol (finding) [facility] Cigarette pack-years 02/18/2020 12:00:00 AM EDT [facility] Cigarettes smoked current (pack per day) - Reported 02/18/20 12:00:00 AM EDT UNK completed [facility] Smoking 02/18/2020 12:00:00 AM EDT Former smoker completed Former smoker [facility] Alcohol intake 11/05/2019 12:00:00 AM EDT Current non-d breanna of alcohol (finding) completed Current non-drinker of alcohol (finding) [facility] Cigarette pack-years 11/05/2019 12:00:00 AM EDT [facility] Cigarettes smoked current (pack per day) - Reported 11/05/19 12:00:00 AM EDT UNK completed [facility] Smoking 11/05/2019 12:00:00 AM EDT Former smoker completed Former smoker [facility] Vital Signs ID Date Data Source UNK Name Value Range Interpretation Code Description Data Source(s) Body temperature 96.2 [degF] 96.2 [degF] [facility] ([facility]) Body surface area Derived from formula 1.53 m2 1.53 m2 [facility] ([facility], ) Body weight 57.154 kg 57.154 kg [facility] ([facility]) [place] body weight 100 [lb_av] 100 [lb_av] MEDEN T ([facility]) Body mass index (BMI) [Ratio] 24.6 kg/m2 24.6 k g/m2 [facility] ([facility]) Body weight 126.00 [lb_av] 126.00 [lb_av] LEIGH T ([facility]) Stated Body height 60 [in_i] 60 [in_i] [facility] ([facility]) 5'0" Diastolic blood pressure 72 mm[Hg] 72 mm[Hg] [facility] ([facility]) Systolic blood pressure 120 mm[Hg] 120 mm[Hg] M LEXX ([facility]) [place] body weight 100 [lb_av] 100 [[facility]_av] [facility] Oxygen saturation in Arterial blood by Pulse oximetry 99 % 99 % [facility] ([facility]) Body temperature 98.7 [degF] 98.7 [degF] [facility] ([facility]) Respiratory rate 20 /min 20 /min [facility] ( [facility]) Heart rate 87 /min 87 /min [facility] ([facility]) Body mass index (BMI) [Ratio] 24.6 kg/m2 24.6 k g/m2 [facility] ([facility]) Body weight 127.00 [lb_av] 127.00 [lb_av] [facility] Body height 60.2 [in_i] 60.2 [in_i] [facility] ([facility]) 5'0.20" Diastolic blood pressure 70 mm[Hg] 70 mm[Hg] [facility] ([facility]) Systolic blood pressure 136 mm[Hg] 136 mm[Hg] [facility] Diastolic blood pressure--sitting 81 mm[Hg] 81 mm[Hg] [facility] CBP, adult cuff/LA Systolic blood pressure--sitting 152 mm[Hg] 152 mm[Hg] [facility] ([facility]) CBP, adult cuff/LA Heart rate 87 /min 87 /min [facility] ([facility]) Body mass index (BMI) [Ratio] 25.4 kg/m2 25.4 k g/m2 [facility] ([facility]) Body height 60 [in_i] 60 [in_i] [facility] ([facility]) 5'0" Body weight 130.00 [lb_av] 130.00 [lb_av] MEDEN T ([facility]) [place] body weight 100 [lb_av] 100 [lb_av] MEDEN T ([facility]) Oxygen saturation in Arterial blood by Pulse oximetry 96 % 96 % [facility] ([facility]) Body temperature 97.4 [degF] 97.4 [degF] [facility] ([facility]) Respiratory rate 18 /min 18 /min [facility] ( [facility]) Heart rate 85 /min 85 /min [facility] ([facility]) Body height 60.2 [in_i] 60.2 [in_i] [facility] ([facility] 5'0.20" Diastolic blood pressure 70 mm[Hg] 70 mm[Hg] [facility] ([facility]) Systolic blood pressure 124 mm[Hg] 124 mm[Hg] M EDENT ([facility]) [place] body weight 100 [lb_av] 100 [lb_av] MEDEN T ([facility]) Oxygen saturation in Arterial blood by Pulse oximetry 93 % 93 % [facility] ([facility]) Body temperature 97.5 [degF] 97.5 [degF] [facility] ([facility]) Respiratory rate 18 /min 18 /min [facility] ( [facility]) Heart rate 91 /min 91 /min [facility] ([facility]) Body mass index (BMI) [Ratio] 25.5 kg/m2 25.5 k g/m2 [facility] ([facility]) Body weight 131.50 [lb_av] 131.50 [lb_av] MEDEN T ([facility]) Body height 60.2 [in_i] 60.2 [in_i] [facility] ([facility] 5'0.20" Diastolic blood pressure 76 mm[Hg] 76 mm[Hg] [facility] ([facility]) Systolic blood pressure 140 mm[Hg] 140 mm[Hg] [facility] Body mass index (BMI) [Ratio] 19.0 kg/m2 19.0 k g/m2 [facility] ([facility]) Body weight 131.38 [lb_av] 131.38 [lb_av] MEDEN T ([facility]) Body height 69.75 [in_i] 69.75 [in_i] [facility] ([facility]) 5'9.75" Body temperature 97.1 [degF] 97.1 [degF] [facility] ([facility]) Body surface area Derived from formula 1.56 m2 1.56 m2 [facility] Body weight 59.422 kg 59.422 kg [facility] ([facility], ) [place] body weight 100 [lb_av] 100 [lb_av] MED[facility] T ([facility]) Body mass index (BMI) [Ratio] 25.6 kg/m2 25.6 k g/m2 [facility] ([facility], ) Body weight 131.00 [lb_av] 131.00 [lb_av] [facility] Body height 60 [in_i] 60 [in_i] [facility] ([facility]) 5'0" Oxygen saturation in Arterial blood by Pulse oximetry 91 % 91 % [facility] ([facility], ) 89 ra Heart rate 102 /min 102 /min [facility] ([facility], ) Diastolic blood pressure 80 mm[Hg] 80 mm[Hg] [facility] ([facility], ) Systolic blood pressure 160 mm[Hg] 160 mm[Hg] M LEXX ([facility], ) Body weight 60.896 kg 60.896 kg [facility] ([facility]) [place] body weight 100 [lb_av] 100 [lb_av] MEDEN T ([facility]) Body mass index (BMI) [Ratio] 26.2 kg/m2 26.2 k g/m2 [facility] ([facility], ) Body weight 134.25 [lb_av] 134.25 [lb_av] MED[facility] T ([facility]) Body height 60 [in_i] 60 [in_i] [facility] ([facility]) 5'0" Diastolic blood pressure 60 mm[Hg] 60 mm[Hg] [facility] ([facility]) Systolic blood pressure 135 mm[Hg] 135 mm[Hg] [facility] [place] body weight 100 [lb_av] 100 [lb_av] MEDEN T ([facility]) Oxygen saturation in Arterial blood by Pulse oximetry 99 % 99 % [facility] ([facility]) Body temperature 98.3 [degF] 98.3 [degF] [facility] ([facility]) Respiratory rate 16 /min 16 /min [facility] ( [facility]) Heart rate 97 /min 97 /min [facility] ([facility]) Body mass index (BMI) [Ratio] 25.4 kg/m2 25.4 k g/m2 [facility] Body weight 131.00 [lb_av] 131.00 [lb_av] MED[facility] T ([facility]) Body height 60.2 [in_i] 60.2 [in_i] [facility] 5'0.20" Diastolic blood pressure 80 mm[Hg] 80 mm[Hg] [facility] Systolic blood pressure 138 mm[Hg] 138 mm[Hg] [facility] ([facility]) [place] body weight 100 [lb_av] 100 [lb_av] MEDEN T ([facility]) Oxygen saturation in Arterial blood by Pulse oximetry 99 % 99 % [facility] Body temperature 97.8 [degF] 97.8 [degF] [facility] Respiratory rate 16 /min 16 /min [facility] ( [facility]) Heart rate 87 /min 87 /min [facility] Body height 60.2 [in_i] 60.2 [in_i] [facility] ([facility] 5'0.20" Diastolic blood pressure 80 mm[Hg] 80 mm[Hg] [facility] ([facility]) Systolic blood pressure 122 mm[Hg] 122 mm[Hg] [facility] Body weight 59.875 kg 59.875 kg [facility] ([facility]) [place] body weight 100 [lb_av] 100 [lb_av] MED[facility] T ([facility]) Body mass index (BMI) [Ratio] 25.8 kg/m2 25.8 k g/m2 [facility] ([facility]) Body weight 132.00 [lb_av] 132.00 [lb_av] [facility] Body height 60 [in_i] 60 [in_i] [facility] 5'0" Diastolic blood pressure 60 mm[Hg] 60 mm[Hg] [facility] ([facility]) Systolic blood pressure 120 mm[Hg] 120 mm[Hg] [facility] ([facility]) Diastolic blood pressure--sitting 74 mm[Hg] 74 mm[Hg] [facility] ([facility]) CBP, adult cuff/Ra Systolic blood pressure--sitting 125 mm[Hg] 125 mm[Hg] [facility] CBP, adult cuff/Ra Heart rate 90 /min 90 /min [facility] Body mass index (BMI) [Ratio] 24.8 kg/m2 24.8 k g/m2 [facility]) Body height 60 [in_i] 60 [in_i] [facility] ([facility]) 5'0" Body weight 127.00 [lb_av] 127.00 [lb_av] MEDEN T ([facility]) [place] body weight 100 [lb_av] 100 [lb_av] MEDEN T ([facility]) Oxygen saturation in Arterial blood by Pulse oximetry 96 % 96 % [facility] ([facility]) Body temperature 98.5 [degF] 98.5 [degF] [facility] ([facility]) Respiratory rate 20 /min 20 /min [facility] ( [facility]) Heart rate 99 /min 99 /min [facility] ([facility]) Body mass index (BMI) [Ratio] 23.1 kg/m2 23.1 k g/m2 [facility] ([facility]) Body weight 119.00 [lb_av] 119.00 [lb_av] MEDEN T ([facility]) Body height 60.2 [in_i] 60.2 [in_i] [facility] ([facility] 5'0.20" Diastolic blood pressure 76 mm[Hg] 76 mm[Hg] [facility] ([facility]) Systolic blood pressure 136 mm[Hg] 136 mm[Hg] M EDENT ([facility]) [place] body weight 100 [lb_av] 100 [lb_av] MEDEN T ([facility]) Oxygen saturation in Arterial blood by Pulse oximetry 97 % 97 % [facility] ([facility]) Body temperature 98.5 [degF] 98.5 [degF] [facility] ([facility]) Respiratory rate 20 /min 20 /min [facility] ( [facility]) Heart rate 82 /min 82 /min [facility] Body mass index (BMI) [Ratio] 26.4 kg/m2 26.4 k g/m2 [facility] ([facility]) Body weight 136.12 [lb_av] 136.12 [lb_av] MED[facility] T ([facility]) Body height 60.2 [in_i] 60.2 [in_i] [facility] ([facility] 5'0.20" Diastolic blood pressure 80 mm[Hg] 80 mm[Hg] [facility] ([facility]) Systolic blood pressure 118 mm[Hg] 118 mm[Hg] M EDENT ([facility]) Body mass index (BMI) [Ratio] 26.6 kg/m2 26.6 k g/m2 [facility] ([facility]) Body weight 137.00 [lb_av] 137.00 [lb_av] MEDEN T ([facility]) Body height 60.2 [in_i] 60.2 [in_i] [facility] ([facility] 5'0.20" Oxygen saturation in Arterial blood by Pulse oximetry 93 % 93 % [facility] Body temperature 99.0 [degF] 99.0 [degF] [facility] ([facility]) Heart rate 81 /min 81 /min [facility] ([facility]) Body mass index (BMI) [Ratio] 29.1 kg/m2 29.1 k g/m2 [facility] ([facility]) Body weight 150.00 [lb_av] 150.00 [lb_av] MED[facility] T ([facility]) Body height 60.2 [in_i] 60.2 [in_i] [facility] ([facility] 5'0.20" Diastolic blood pressure 72 mm[Hg] 72 mm[Hg] [facility] ([facility]) Systolic blood pressure 118 mm[Hg] 118 mm[Hg] M EDENT ([facility]) Respiratory rate 20 /min 20 /min [facility] ( [facility]) Systolic blood pressure 132 mm[Hg] 132 mm[Hg] M EDENT ([facility]) Oxygen saturation in Arterial blood by Pulse oximetry 97 % 97 % [facility] Body temperature 99.2 [degF] 99.2 [degF] [facility] ([facility]) Respiratory rate 97 /min 97 /min [facility] ( [facility]) Heart rate 98 /min 98 /min [facility] ([facility]) Body mass index (BMI) [Ratio] 27.4 kg/m2 27.4 k g/m2 [facility] ([facility]) Body weight 141.38 [lb_av] 141.38 [lb_av] MEDEN T ([facility]) Body height 60.2 [in_i] 60.2 [in_i] [facility] ([facility] 5'0.20" Diastolic blood pressure 74 mm[Hg] 74 mm[Hg] [facility] ([facility]) Oxygen saturation in Arterial blood by Pulse oximetry 95 % 95 % [facility] ([facility]) Body temperature 99.0 [degF] 99.0 [degF] [facility] Respiratory rate 18 /min 18 /min [facility] ( [facility]) Heart rate 89 /min 89 /min [facility] ([facility]) Body mass index (BMI) [Ratio] 28.2 kg/m2 28.2 k g/m2 [facility] ([facility]) Body weight 145.38 [lb_av] 145.38 [lb_av] MED[facility] T ([facility]) Body height 60.2 [in_i] 60.2 [in_i] [facility] 5'0.20" Diastolic blood pressure 74 mm[Hg] 74 mm[Hg] [facility] ([facility]) Systolic blood pressure 130 mm[Hg] 130 mm[Hg] [facility] Body mass index (BMI) [Ratio] 28.1 kg/m2 28.1 k g/m2 [facility] ) Body weight 144.00 [lb_av] 144.00 [lb_av] MED[facility] T ([facility], ) Body height 60 [in_i] 60 [in_i] [facility] ([facility]) 5'0" Oxygen saturation in Arterial blood by Pulse oximetry 97 % 97 % [facility] ([facility], ) Room Air Heart rate 98 /min 98 /min [facility] ([facility], ) Diastolic blood pressure 70 mm[Hg] 70 mm[Hg] [facility] ([facility]) Systolic blood pressure 122 mm[Hg] 122 mm[Hg] M [facility] ([facility], ) Body weight 65.318 kg 65.318 kg [facility] ([facility]) [place] body weight 100 [lb_av] 100 [lb_av] MEDEN T ([facility], ) Diastolic blood pressure--sitting 80 mm[Hg] 80 mm[Hg] [facility] ([facility]) CBP adult cuff, Ra Systolic blood pressure--sitting 132 mm[Hg] 132 mm[Hg] [facility] ([facility]) CBP adult cuff, Ra Heart rate 79 /min 79 /min [facility] ([facility]) Body mass index (BMI) [Ratio] 28.3 kg/m2 28.3 k g/m2 [facility] ([facility]) Body height 60 [in_i] 60 [in_i] [facility] ([facility]) 5'0" Body weight 145.00 [lb_av] 145.00 [lb_av] MED[facility] T ([facility]) Body weight 65.318 kg 65.318 kg [facility] ([facility]) Body mass index (BMI) [Ratio] 28.1 kg/m2 28.1 k g/m2 [facility] ([facility]) Body weight 144.00 [lb_av] 144.00 [lb_av] MEDEN T ([facility]) Body height 60 [in_i] 60 [in_i] [facility] ([facility]) 5'0" Oxygen saturation in Arterial blood by Pulse oximetry 97 % 97 % [facility] ([facility]) Room Air Heart rate 96 /min 96 /min [facility] ([facility]) Diastolic blood pressure 80 mm[Hg] 80 mm[Hg] [facility] ([facility]) Systolic blood pressure 126 mm[Hg] 126 mm[Hg] [facility] Oxygen saturation in Arterial blood by Pulse oximetry 97 % 97 % [facility] ([facility]) Body temperature 97.4 [degF] 97.4 [degF] [facility] ([facility]) Respiratory rate 18 /min 18 /min [facility] Heart rate 87 /min 87 /min [facility] ([facility]) Body mass index (BMI) [Ratio] 28.0 kg/m2 28.0 k g/m2 [facility] ([facility]) Body weight 144.50 [lb_av] 144.50 [lb_av] MED[facility] T ([facility]) Body height 60.2 [in_i] 60.2 [in_i] [facility] ([facility] 5'0.20" Diastolic blood pressure 76 mm[Hg] 76 mm[Hg] [facility] ([facility]) Systolic blood pressure 144 mm[Hg] 144 mm[Hg] [facility] ID Date Data Source [id number] 06/11/2020 04:54:52 PM [facility] Name Value Range Interpretation Code Description Data Source(s) WEIGHT RECORDED 140 lb 140 lb [facility] Body height Measured 60 in 60 in [facility] WEIGHT RECORDED 140 lb 140 lb [facility] Body height Measured 60 in 60 in [facility] ID Date Data Source [id number] 11/06/2019 09:53:38 AM [facility] Name Value Range Interpretation Code Description Data Source(s) WEIGHT RECORDED 139 lb 139 lb [facility] Body height Measured 60 in 60 in [facility] Patient Treatment Plan of Care Planned Activity Planned Date Details Description Data Source (s) maalox/lidocaine/diphenhydrAMINE 1:1:1 SWISH & SWAL or al suspension 10/23/2019 12:00:00 AM [facility] Folic Acid 1 MG Oral Tablet 06/19/2019 12:00:00 AM [facility] Folic Acid 1 MG Oral Tablet 03/27/2019 12:00:00 AM [facility]
[2020-09-19] MEDS ORDERED: diazePAM 10MG/2ML SYRINGE (J3360 PER 5MG) IV ONE ×2 (03:30→07:00)
--- OUTSIDE RECORDS SUMMARY | 2020-09-19 03:30 | CCD ---
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 Name Role Phone Desiree'barney, Brianna Ian PA [...] Unavailable AUGUST, L KIRA MD Unavailable Unavailable BEULAVILLE, L KIRA MD Unavailable Unavailable AUGUST, L KIRA MD Unavailable Unavailable BEUL[place]IL[place], L KIRA MD Unavailable Unavailable BEUL[place], L KIRA MD Unavailable Unavailable BEUL[place]IL[place], L KIRA MD Unavailable Unavailable BEUL[place]IL[place], L KIRA MD Unavailable Unavailable BE[place], L KIRA MD Unavailable Unavailable BEUL[place], L KIRA MD Unavailable Unavailable BE[place], L KIRA MD Unavailable Unavailable [place], L KIRA MD Unavailable Unavailable [place], L KIAR MD Unavailable Unavailable [place], L KIRA MD Unavailable Unavailable [place], L KIRA MD Unavailable Unavailable [place], L KIRA MD Unavailable Unavailable [place], L KIRA MD Unavailable Unavailable [place], L KIRA MD Unavailable Unavailable BE[place]IL[place], L KIRA MD Unavailable Unavailable [place], L KIRA MD Unavailable Unavailable [place], L KIRA MD Unavailable Unavailable [place], L KIRA MD Unavailable Unavailable [place], L KIRA MD Unavailable Unavailable [place], L KIRA MD Unavailable Unavailable [place], L KIRA MD Unavailable Unavailable [place], L KIRA MD Unavailable Unavailable [place], L KIRA MD Unavailable Unavailable [place], L KIRA MD Unavailable Unavailable [place], L KIRA MD Unavailable Unavailable [place], L KIRA MD Unavailable Unavailable [place], L KIRA MD Unavailable Unavailable [place], L KIRA MD Unavailable Unavailable [place], L KIRA MD Unavailable Unavailable [place], L KIRA MD Unavailable Unavailable [place], L KIRA MD Unavailable Unavailable [place], L KIRA MD Unavailable Unavailable [place], L KIRA MD Unavailable Unavailable [place], L KIRA MD Unavailable Unavailable [place], L KIRA MD Unavailable Unavailable [place], L KIRA MD Unavailable Unavailable [place], L KIRA MD Unavailable Unavailable [place], L KIRA MD Unavailable Unavailable [place], L KIRA MD Unavailable Unavailable [place], L KIRA MD Unavailable Unavailable [place], L KIRA MD Unavailable Unavailable [place], L KIRA MD Unavailable Unavailable [place], L KIRA MD Unavailable Unavailable [place], L KIRA MD Unavailable Unavailable AUGUST, L [...] Unavailable Unavailable Justin, Milind PA Unavailable Unavailable Jsutin, Milind PA Unavailable Unavailable Justin, Milind PA [...] Unavailable Unavailable CECY-ILEANA, THONG DO Unavailable Unavailable CEYC-ILEANA, THONG DO Unavailable Unavailable CECY-ILEANA, THONG DO [...] Unavailable Unavailable JASWANT ALVARADO MD Unavailable Unavailable JASWATN ALVARADO MD Unavailable Unavailable JASWANT ALVARADO MD [...] A Ian PA Unavailable Unavailable O'barney, A Ain PA Unavailable Unavailable O'barney, A Ian PA [...] is protected by Article 27-F of the [facility] Public Health law. If you continue you may have access to information: Regarding HIV / AIDS; Provided by facilities licensed or operated by the [facility] Office of Mental Health; or Provided by the [facility] Office for People With Developmental Disabilities. If such information is present, then the following [facility] mandated warning applies: This information has [...] law may result in a fine or long-term sentence or both. A general authorization for the release of medical or other information is NOT sufficient authorization for further disc losure. Allergies and Adverse Reactions Type Description Substance Reaction Status Data Source(s ) Drug allergy ALENDRONATE SODIUM ALENDRONATE SODIUM [facility] Family History Family Member Name Family Member Gender Family Member Status Date o f Status Description Data Source(s) Unknown Male Problem [facility] ([facility]) Unknown Unknown Problem [facility] ([facility] Unknown Male Problem [facility] Unknown Male Problem [facility] ([facility] Unknown Male Problem [facility] ([facility]) Unknown Male Problem [facility] ([facility]) Unknown Male Problem [facility] ([facility]) Encounters Encounter Providers Location Date Indications Data Source(s ) Outpatient Attender: CELY ALVARADO MD 02/16/2021 12:00:00 A M [facility] Outpatient Attender: Ian SIMS [facility] 09/09/2020 02:30:00 PM EST [facility] ([facility]) Office Visit Attender: LOREN IBARRA MD Physical Therapy 01:00:00 PM EST [facility] ([facility]) Outpatient Attender: DERECK MORALES MD Main Office 09/08/2020 08:30:00 AM EST [facility] ([facility]) Outpatient Attender: Ian SIMS [facility] 08/07/2020 12:00:00 PM EST [facility] ([facility]) Office Visit Attender: LOREN IBARRA MD Physical Therapy 09:00:00 AM EST [facility] ([facility] Outpatient Attender: Ian SIMS [facility] 07/23/2020 09:00:00 AM EST [facility] ([facility]) Outpatient Attender: KIRA AUGUST MDReferrer: Milind SIMS 07/17/2020 12:00:00 AM [facility] Office Visit Attender: LOREN IBARRA MD Physical Therapy 08:00:00 AM EST [facility] ([facility]) Outpatient Attender: Carlos Noriega/Fabio/Harris/R eindl 07/08/2020 01:30:00 PM EST [facility] ([facility] Office Visit Attender: ALIZA Noriega/Fabio/Harris/Re indl 07/07/2020 08:00:00 AM EST [facility] ([facility] Outpatient Attender: LOREN IBARRA MD Physical Therapy 02:54:00 PM EST [facility] ([facility]) Outpatient Attender: Ian SIMS [facility] 07/03/2020 02:00:00 PM EST MED[facility] ([facility]) Outpatient Attender: Ian SIMS [facility] 06/19/2020 01:30:00 PM EDT [facility] ([facility]) Office Visit Attender: ALIZA Noriega/[place]/Harris/Re indl 06/11/2020 11:45:00 AM EDT [facility] ([facility] Office Visit Attender: DERECK MORALES MD Main Office 06/06/2020 11: 03:00 AM EDT MED[facility] ([facility]) Outpatient Attender: DERECK MORALES MD Main Office 06/05/2020 09:30:00 AM EDT MED[facility] ([facility]) Outpatient Attender: Ian SIMS [facility] 05/29/2020 02:40:00 PM EDT MED[facility] ([facility]) Outpatient Attender: Carlos Noriega/[place]/Harris/R eindl 04/02/2020 01:23:00 AM EDT [facility] ([facility] Outpatient Attender: Carlos Noriega/[place]/Harris/R eindl 04/01/2020 01:23:00 AM EDT [facility] ([facility] Outpatient Attender: Carlos Noriega/Fabio/Harris/R eindl 03/31/2020 01:23:00 AM EDT [facility] ([facility] Outpatient Attender: Carlos Noriega/Fabio/Harris/R eindl 03/30/2020 01:23:00 AM EDT [facility] ([facility] Outpatient Attender: Carlos Noriega/Fabio/Harris/R eindl 03/29/2020 01:23:00 AM EDT [facility] ([facility] Outpatient Attender: Carlos Noriega/Fabio/Harris/R eindl 03/28/2020 01:23:00 AM EDT [facility] ([facility] Outpatient Attender: CELY ALVARADO MD 03/11/2020 12:00:00 A M [facility] Outpatient Attender: CELY ALVARADO MDReferrer: THONG MOSLEY DO [id number] 02/18/2020 12:00:00 AM EDT - 02/18/2020 10:38:33 AM ED T Rheumatoid arthritis without rheumatoid factor, unspecified site [facility] Rheumatoid arthritis without rheumatoid factor, unspecified site [facility] [address] [place] [id number] 01/10/2020 12:00:00 AM EDT eCW1 ([facility]) Outpatient Attender: Ian SIMS [facility] 12/28/2019 01:00:00 PM EDT MED[facility] ([facility]) Outpatient Attender: Ian SIMS [facility] 12/18/2019 02:30:00 PM EDT [facility] ([facility]) Outpatient Attender: Ian SIMS [facility] 12/04/2019 03:40:00 PM EDT MED[facility] ([facility]) Outpatient Referrer: Ian SIMS 11/29/2019 03:11:0 0 PM EDT [facility] Outpatient Referrer: Ian SIMS 11/29/2019 03:11:0 0 PM EDT [facility] Outpatient Referrer: Ian SIMS 11/29/2019 03:11:0 0 PM EDT [facility] Outpatient Referrer: Ian SIMS 11/29/2019 03:04:0 0 PM EDT [facility] Outpatient Attender: Ian ISMS [facility] 11/29/2019 01:20:00 PM EDT [facility] ([facility]) Outpatient Referrer: Ian SIMS 11/27/2019 04:14:0 0 PM EDT [facility] Outpatient Attender: Ian SIMS [facility] 11/07/2019 02:30:00 PM EDT [facility] ([facility]) Outpatient Attender: CELY ALVARADO MD [id number] 2019 12:00:00 AM EDT - 11/05/2019 12:38:34 PM EDT Other snf (current) drug therapy [facility] Other snf (current) drug therapy Outpatient Referrer: Ian SIMS 11/01/2019 12:11:0 0 PM EST [facility] Outpatient Attender: CELY ALVARADO MD 10/29/2019 12:00:00 A M [facility] Outpatient Attender: ECLY ALVARADO MD 10/23/2019 12:00:00 A M [facility] Outpatient Attender: Milind SIMS [facility] 10/18/2019 01:40:00 PM EST [facility] ([facility]) Outpatient Attender: DERECK MORALES MD Main Office 09/18/2019 10:30:00 AM EST [facility] ([facility]) Outpatient Attender: CELY ALVARADO MD 08/08/2019 12:00:00 A M [facility] Outpatient Attender: Carlos Nroiega/Fabio/Harris/Theo salguero 08/02/2019 12:30:00 PM EST [facility] ([facility] Outpatient Referrer: Ian SIMS 07/23/2019 03:09:0 0 PM EST [facility] Outpatient Attender: Ian SIMS [facility] 07/23/2019 12:00:00 PM EST [facility] ([facility]) Immunizations Vaccine Date Status Description Data Source(s) [...] AM EST ORAL active MED[facility] ([facility]) celecoxib 100 MG Oral Capsule Celecoxib 09/07/2020 12:00:00 AM EST ORAL active [facility] ([facility]) Amiodarone hydrochloride 200 MG Oral Tablet Amiodarone HCL 09/07/2020 12:00:00 AM EST ORAL active [facility] ([facility]) Furosemide 20 MG Oral Tablet [Lasix] Lasix 09/07/2020 12:00:00 AM EST ORAL active [facility] ([facility]) 1 billion cell- 250 mg [...] DAILY DOSE = EIGHT TABLETS SOLD: 08/28/2020 PureWR[facility] Home Sleep Study 08/27/2020 12:00:00 AM EST active [facility] ([facility]) Cholestyramine Resin 66.7 MG/ML Oral Suspension Cholestyrami ne 08/27/2020 12:00:00 AM EST active EDENT ([facility]) Prednisone 5 MG Oral Tablet Prednisone 08/25/2020 12:00:00 AM EST ORAL active [facility] ([facility]) Prednisone 20 MG Oral Tablet Prednisone 08/18/2020 12:00:00 AM EST ORAL completed [facility] ([facility]) Nocturnal Oximetry Spo2 Monitor 08/07/2020 12:00:00 AM EST completed [facility] ([facility]) 10-325 mg 08/01/2020 12:00:00 AM EST tablet 240 TAKE 1 & 1/2 TO 2 TABLETS BY MOUTH FOUR TIMES A DAY NEEDED FOR PAIN, MAXIMUM DAILY DOSE = EIGHT TABLETS TAKE 1 & 1/2 TO 2 TABLETS BY MOUTH FOUR TIMES A DAY NEEDED FOR PAIN, MAXIMUM DAILY DOSE = EIGHT TABLETS SOLD: 08/06/2020 [facility] carvedilol 3.125 MG Oral Tablet Carvedilol 07/22/2020 12:00:00 AM EST ORAL completed [facility] ([facility]) 5 mg 07/22/2020 12:00:00 AM EST tablet 30 TAKE ONE TABLET BY MOUTH EVERY DAY TAKE ONE TABLET BY MOUTH EVERY DAY SOLD: 07/23/2020 [facility] Amlodipine 5 MG Oral Tablet Amlodipine Besylate 07/22/2020 12:00:00 A M EST ORAL active [facility] ([facility] carvedilol 3.125 MG Oral Tablet Carvedilol 07/18/2020 12:00:00 AM EST ORAL completed [facility] ([facility]) 20 mg 07/08/2020 12:00:00 AM EST tablet 90 TAKE ONE TABLET BY MOUTH EVERY DAY NEEDED FOR EDEMA TAKE ONE TABLET BY MOUTH EVERY DAY NEEDED FOR EDEMA SOLD: 07/08/2020 [facility] Furosemide 20 MG Oral Tablet [Lasix] Lasix 07/08/2020 12:00:00 AM EST ORAL completed [facility] ([facility]) 10-325 mg 07/07/2020 12:00:00 AM EST tablet 240 TAKE 1 & 1/2 TO 2 TABLETS BY MOUTH FOUR TIMES A DAY NEEDED FOR PAIN, MAXIMUM DAILY DOSE = EIGHT TABLETS TAKE 1 & 1/2 TO 2 TABLETS BY MOUTH FOUR TIMES A DAY NEEDED FOR PAIN, MAXIMUM DAILY DOSE = EIGHT TABLETS SOLD: 07/08/2020 [facility] Esomeprazole 40 MG Delayed Release Oral Capsule Esomeprazole Magnesium 07/03/2020 12:00:00 AM EST ORAL active [facility] ([facility]) 120 ACTUAT Fluticasone propionate 0.044 MG/ACTUAT Metered Dose Inhaler [Flovent] Flovent HFA 07/03/2020 12:00:00 AM EST RESPIRATORY completed [facility] ([facility]) 5 mg 06/19/2020 12:00:00 AM EDT tablet 60 TAKE 1 TO 2 TABLETS BY MOUTH ONCE DAILY ONE HOUR BEFORE BEDTIME NEEDED, MAXIMUM DAILY DOSE = TWO TABLETS TAKE 1 TO 2 TABLETS BY MOUTH ONCE DAILY ONE HOUR BEFORE BEDTIME NEEDED, MAXIMUM DAILY DOSE = TWO TABLETS SOLD: 06/19/2020 [facility] Flonase Allergy Relief Flonase Allergy Relief 06/17/2020 12:00:00 AM E DT active MED[facility] ([facility]) 50 mcg/actuation 06/17/2020 12:00:00 AM EDT spray,suspension [...] 12:00 :00 AM EDT ORAL active [facility] ([facility]) Aspirin 81 MG Delayed Release Oral Tablet Aspirin Ec 2019 12:00:00 AM EDT ORAL active [facility] ( [facility]) apixaban 5 MG Oral Tablet [Eliquis] Eliquis 06/04/2020 12:00:00 AM E DT ORAL active [facility] ([facility]) Lactobacillus acidophilus [id number] UNT Oral Capsule Probiot ic 06/04/2020 12:00:00 AM EDT ORAL completed [facility] ([facility]) Docusate Sodium 100 MG Oral Capsule Docusate Sodium 06/04/2020 1 2:00:00 AM EDT ORAL active [facility] ( [facility]) Ciprofloxacin 500 MG Oral Tablet Ciprofloxacin HCL 06/04/2020 12:00 :00 AM EDT ORAL completed [facility] ([facility]) Bupropion Hydrochloride ER (SR) Bupropion Hydrochloride ER ( SR) 06/04/2020 12:00:00 AM EDT active M EDENT ([facility]) olanzapine 2.5 MG Oral Tablet Olanzapine 06/04/2020 12:00:00 AM EDT ORAL completed [facility] ([facility]) Amiodarone hydrochloride 200 MG Oral Tablet Amiodarone HCL 06/04/2020 12:00:00 AM EDT ORAL completed [facility] ([facility]) Ciprofloxacin 500 MG Oral Tablet [Cipro] Cipro 06/04/2020 12:00:00 AM EDT completed [facility] ([facility]) 24 HR tolterodine tartrate 4 MG Extended Release Oral Capsule Tolterodine Tartrate ER 06/04/2020 12:00:00 AM EDT ORAL active [facility] ([facility]) montelukast 10 MG Oral Tablet Montelukast Sodium 06/04/2020 12:00:00 AM EDT ORAL completed [facility] ([facility]) duloxetine 30 MG Delayed Release Oral Capsule Duloxetine HCL 06/04/2020 12:00:00 AM EDT ORAL active [facility] ([facility]) NITROFURANTOIN, MACROCRYSTALS 25 MG / Ni trofurantoin, Monohydrate 75 MG Oral Capsule [Macrobid] Macrobid 06/03/2020 12:00:00 AM EDT ORAL completed [facility] ([facility]) Amiodarone hydrochloride 200 MG Oral Tablet AMIODARONE [...] 04/10/2020 12:00:00 AM EDT compl eted MED[facility] ([facility]) 0.5 ML Streptococcus pneumoniae serotype 1 capsular antigen diphtheria [id number] protein conjugate vaccine 0.0044 MG/ML / Streptococcus pneumoniae serotype 14 capsular antigen diphtheria [id number] protein conjugate vaccine 0.0044 MG/ML / Streptococcus pneumonia Prevnar 13 04/10/2020 12:00:00 AM EDT completed [facility] ([facility]) 5 mg 03/26/2020 12:00:00 AM EDT [...] Benzonatate 01/03/2020 12:00:00 AM EDT completed [facility] ([facility]) 4 mg 12/28/2019 12:00:00 AM EDT tablet 45 TAKE 1-2 TABLETS BY MOUTH EVERY 6 HOURS NEEDED FOR NAUSEA TAKE 1-2 TABLETS BY MOUTH EVERY 6 HOURS NEEDED FOR NAUSEA SOLD: 12/28/2019 [facility] Ondansetron 4 MG Oral Tablet [Zofran] Zofran 12/28/2019 12:00:00 AM EDT ORAL completed [facility] ([facility]) 10-325 mg 12/28/2019 12:00:00 AM EDT tablet [...] 12/18/2019 12:00:00 AM EDT ORAL active [facility] ([facility]) Injection Methylprednisolone Acetate 80 MG 12/04/2019 12:00:00 A M EDT completed [facility] ([facility]) Medication administered onsite Prednisone 10 MG Oral Tablet Prednisone 12/04/2019 12:00:00 AM EDT completed [facility] ([facility]) montelukast 10 MG Oral Tablet [Singulair] Singulair 2019 12:00:00 AM EDT ORAL active [facility] ( [facility]) montelukast 10 MG Oral Tablet MONTELUKAST SODIUM [...] 11/29/2019 12:00:00 AM EDT RESPIRATORY active [facility] ([facility]) benzonatate 200 MG Oral Capsule Benzonatate 11/29/2019 12:00:00 AM EDT completed [facility] ([facility]) Levofloxacin 750 MG Oral Tablet [Levaquin] Levaquin 11/28 12:00:00 AM EDT ORAL completed [facility] ([facility]) 750 mg 11/29/2019 12:00:00 AM EDT tablet [...] Adult 11/29/2019 12:00:00 AM EDT active [facility] ([facility]) INHALER, ASSIST DEVICES 11/29/2019 12:00:00 AM [...] 12:00:00 AM EDT ORAL active [facility] ( [facility]) 5 mg 11/15/2019 12:00:00 AM EDT tablet [...] viscous 2 %, Benadryl 12.5 mg/5 mL [facility] [phone] 10/22/2019 12:00:00 AM EST Suspension 120 SWISH [...] EST ORAL active [facility] ([facility]) gabapentin 300 MG Oral Capsule Gabapentin 09/17/2019 12:00:00 AM EST ORAL active [facility] ([facility]) Amlodipine 5 MG Oral Tablet Amlodipine Besylate 09/17/2019 12:00:00 A M EST ORAL active [facility] ([facility]) 10-325 mg 08/18/2019 12:00:00 AM EST tablet 120 TAKE ONE TABLET BY MOUTH FOUR TIMES A DAY NEEDED, MAXIMUM DAILY DOSE = FOUR TABLETS TAKE ONE TABLET BY MOUTH FOUR TIMES A DAY NEEDED, MAXIMUM DAILY DOSE = FOUR TABLETS SOLD: 08/24/2019 [facility] Alendronic acid 70 MG Oral Tablet [Fosamax] Fosamax 11/2018 12:00:00 AM EST ORAL completed [facility] ([facility]) 24 HR Bupropion Hydrochloride 150 MG Extended Release Oral Tablet [Wellbutrin] Wellbutrin XL 07/23/2019 12:00:00 AM EST ORAL completed [facility] ([facility]) Zolpidem tartrate 10 MG Oral Tablet Zolpidem Tartrate 06/30 12:00:00 AM EST completed [facility] ([facility]) Esomeprazole 40 MG Delayed Release Oral Capsule [Nexium] Nex ium 07/23/2019 12:00:00 AM EST ORAL active M EDENT ([facility]) Shingrix Shingrix 07/23/2019 12:00:00 AM EST activ e [facility] ([facility]) gabapentin 300 MG Oral Capsule Gabapentin 07/23/2019 12:00:00 AM EST active [facility] 10-325 mg 07/20/2019 12:00:00 AM EST tablet [...] aborted Take 2 tablets by mouth daily [facility] Diphenhydramine Hydrochloride 25 MG Oral Tablet Sleep-Tabs 05/13/2019 12:00:00 AM EDT ORAL completed [facility] ([facility]) gabapentin 100 MG Oral Capsule Gabapentin 05/13/2019 12:00:00 AM EDT ORAL completed [facility] ([facility]) gabapentin 100 MG Oral Capsule Gabapentin 04/13/2019 12:00:00 AM EDT ORAL completed [facility] ([facility]) Folic Acid 1 MG Oral Tablet folic acid (FOLVITE) 1 MG tablet folic acid (FOLVITE) 1 MG tablet 03/27/2019 12:00:00 AM EDT 2 mg Oral aborted Take 2 tablets by mouth daily [facility] Insurance Providers Payer name Policy type / Coverage type Policy ID Covered libertarian ID Covered libertarian's relationship to wiggins Policy Wiggins Plan Information FOR LIFE [id number] MEDICARE [id number] SP [id number] W64 FOR LIFE U [id number] Self [id number] MEDICARE A [id number] Self [id number] W64 FOR LIFE O [id number] S [id number] MEDICARE C [id number] S [id number] W64 U [id number] Spouse [id number] FOR LIFE [id number] [employer] [id number] S [id number] MEDICARE [id number] SP [id number] A ANSI-Not a Secondary Insurance [id number] ANSI-Medicare Part B [id number] ANSI-Commercial [id number] ANSI-Commercial [id number] ANSI-Medicare Part B [id number] ANSI-Not a Secondary Insurance [id number] [facility] For Life [facility] Part B [id number] Family Dependent [id number] Medicare [place] Primary [id number] Self [id number] ANSI-Commercial [id number] ANSI-Not a Secondary Insurance [id number] ANSI-Medicare Part B [id number] ANSI-Commercial [id number] ANSI-Not a Secondary Insurance [id number] ANSI-Medicare Part B [id number] For Life [facility] Part B [id number] Family Dependent [id number] Medicare [place] Medicare Primary [id number] Self [id number] ANSI-Not a Secondary Insurance [id number] ANSI-Medicare Part B [id number] ANSI-Commercial [id number] ANSI-Not a Secondary Insurance [id number] ANSI-Medicare Part B [id number] ANSI-Commercial [id number] ANSI-Commercial [id number] ANSI-Medicare Part B [id number] ANSI-Not a Secondary Insurance [id number] ANSI-Commercial [id number] ANSI-Not a Secondary Insurance [id number] ANSI-Medicare Part B [id number] ANSI-Not a Secondary Insurance [id number] ANSI-Commercial [id number] ANSI-Medicare Part B [id number] For Life - WPS Medigap Part B [id number] Family Dependent [id number] Medicare (Part B) Medicare Primary [id number] Self [id number] Prime - [employer] Health Maintenance Organization (HMO) [id number] For Life - WPS Medigap Part B [id number] Family Dependent [id number] Medicare (Part B) Medicare Primary [id number] Self [id number] [facility] Health Maintenance Organization ([facility]) [id number] ANSI-Commercial [id number] ANSI-Not a Secondary Insurance [id number] ANSI-Medicare Part B [id number] ANSI-Commercial [id number] ANSI-Not a Secondary Insurance [id number] ANSI-Medicare Part B [id number] ANSI-Commercial [id number] ANSI-Not a Secondary Insurance [id number] ANSI-Medicare Part B [id number] For Life F [id number] SELF 0 [id number] Medicare C [id number] SELF [id number] FOR LIFE O UNAVAILABLE P U NAVAILABLE MEDICARE C UNAVAILABLE S UNAVAILA BLE ANSI-Medicare Part B [id number] ANSI-Not a Secondary Insurance [id number] [place]AST HU[employer] [id number] [facility] [id number] ANSI-Not a Secondary Insurance [id number] ANSI-Medicare Part B [id number] ANSI-Medicare Part B [id number] ANSI-Not a Secondary Insurance [id number] ANSI-Medicare Part B [id number] ANSI-Not a Secondary Insurance [id number] ANSI-Not a Secondary Insurance [id number] ANSI-Medicare Part B [id number] U [id number] Self [id number] [address] (2018) Commercial [id number] Self [id number] Prime Commercial [id number] 000 [id number] [place] [employer] [id number] HU2 [id number] [place] [employer] [id number] HU2 [id number] [place] [place] [id number] P [id number] [employer] [place] O [id number] P [id number] [employer] [place] [id number] HU2 [id number] U [id number] Spouse [id number] [employer]/ AD O [id number] P [id number] [facility] 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 [id number] Family Depend ent [id number] FOR LIFE -CLINIC [id number] 01 [id number] [employer] [place] [id number] HU2 [id number] Prime - [facility] Health Maintenance Organization ([facility]) [id number] Spo [id number] [employer] [place] [id number] HU2 [id number] [employer]/ AD O [id number] P [id number] [facility] 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 Family Depend ent [employer] [place] P [id number] S [id number] [facility] O [id number] U [id number] [facility] O [id number] U [id number] Problems, Conditions, and Diagnoses Code Display Name Description Problem Type Effective Dates Data Source(s) 59742622 Sinus node dysfunction Sinus node dysfunction Problem 09/08/2020 12:00:00 AM ADRI LYONS ([facility]) [id number] Mild recurrent major depression Mild recurrent m ajor depression Problem 07/03/2020 12:00:00 AM EST [facility] ([facility]) [id number] Paroxysmal atrial fibrillation Paroxysmal atrial fibri llation Problem 06/05/2020 12:00:00 AM EDT [facility] ([facility]) [id number] Paroxysmal atrial fibrillation Paroxysmal atrial fibri llation Problem 05/29/2020 12:00:00 AM EDT [facility] ([facility]) 45164809 Essential hypertension Essential hypertension Problem 05/28/2020 12:00:00 AM EDT [facility] ([facility], ) [id number] Edema Edema Problem 09/18/2019 12:00:00 AM ES T [facility] ([facility]) G89.29 Other chronic pain Other chronic pain Diagnosis 10:17:06 AM [facility] M54.5 Low back pain Low back pain Diagnosis 02/18/2020 10:17:06 AM [facility] Z79.899 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 Diagnosis 11/05/2019 11:32:36 AM T [facility] Surgeries/Procedures Procedure Description Date Indications Data Source(s) RADEX SHOULDER COMPLETE MINIMUM 2 VIEWS 09/18/2020 12: 00:00 AM EST [facility] ([facility] ) RADEX SHOULDER COMPLETE MINIMUM 2 VIEWS 09/09/2020 12: 00:00 AM EST [facility] ([facility]) Arterial Pressure Waveform Analysis For Assessment Of Centra l Art 09/08/2020 12:00:00 AM EST [facility] ([facility]) RADEX SHOULDER COMPLETE MINIMUM 2 VIEWS 07/31/2020 12: 00:00 AM EST [facility] ([facility] ) RADEX SHOULDER COMPLETE MINIMUM 2 VIEWS 07/11/2020 12: 00:00 AM EST [facility] ([facility] ) FX Greater Tuberosity W/O Manipulation 07/06/2020 12:0 0:00 AM EST [facility] ([facility] ) ECG ROUTINE ECG W/LEAST 12 LDS W/I&R 06/05/2020 12:00: 00 AM EDT [facility] ([facility]) Arterial Pressure Waveform Analysis For Assessment Of Centra l Art 06/05/2020 12:00:00 AM EDT [facility] REVJ ILEOSTOMY COMPLIC RCNSTJ IN-DEPTH SPX 05/09/2020 12:00:00 AM EDT [facility]ESH ([facility], ) Arterial Pressure Waveform Analysis For Assessment Of Centra l Art 09/18/2019 12:00:00 AM EST [facility] ([facility]) Spirometry 08/02/2019 12:00:00 AM EST M LEXX ([facility], ) Results ID Date Data Source [id number] 09/09/2020 02:20:00 PM EST [facility] Name Value Range Interpretation Code Description Data Aby rce(s) Supporting Document(s) SARS coronavirus 2 RNA Not Detected [facility] This lab was ordered by [facility] and reported by [facility]. ID Date Data Source [id number] 08/28/2020 12:00:00 PM EST [facility] Name Value Range Interpretation Code Description Data Aby rce(s) Supporting Document(s) SARS coronavirus 2 RNA [facility] This lab was ordered by [facility] and reported by [facility]. ID Date Data Source [id number] 08/07/2020 12:00:00 AM EST [facility] Loren Ibarra MD Patient Name: DUY RODRIGUEZ [id number] [facility] Date of : 1955 201 Date of Exam: 08/07/2020CHARISSA Hightower [id number]#: Fax: [phone] EXAM: CT UPPER EXTREMITY WITHOUT CONTRASTCLINICAL INFORMATION: Followup fracture right shoulder.Low dose 64 slice helical scanning through the right shoulder was obtainedusing 2 mm increments and reconstructed in both coronal and sagittalplanes. 3D reconstructions were also obtained. Post processing wasperformed at the physician's workstation.Comparison is 07/05/2020 from [facility].Once again, there is a comminuted fracture [...] is well aligned with theglenoid. There is qdsf-qj-igocougi narrowing the acromioclavicular joint.Surrounding soft tissue structures are unremarkable. There are no othersignificant findings.IMPRESSION:Comminuted fracture involving the head and neck of the proximal humerus.There is slightly increased impaction and distraction of fracture fragmentscompared to the prior exam. There appears to be very early healing callusformation.Accredited by the [employer] in [place].JONNY Camacho/Eamon you for referring DUY RODRIGUEZ to our office. Electronically Signed - ROXANN ENGLISH MD 08/07/20 16:46 Name Value Range Interpretation Code Description Data Aby rce(s) Supporting Document(s) ID Date Data Source [id number] 07/04/2020 11:34:00 PM EST [facility] ([facility]) Name Value Range Interpretation Code Description Data Aby rce(s) Supporting Document(s) Platelets [#/volume] in Blood by Estimate Laboratory test result Normal (applies to non-numeric results) [facility] ([facility]) ID Date Data Source [id number] 07/04/2020 11:34:00 PM EST [facility] ([facility]) Name Value Range Interpretation Code Description Data Aby rce(s) Supporting Document(s) Bands 1 % Normal (applies to non-numeric resul ts) [facility] ([facility]) Neutrophils 46 % 28-66 Normal (applies to non-numeric resu lts) [facility] ([facility]) Lymphocytes 43 % 16-44 Normal (applies to non-numeric resu lts) [facility] ([facility]) Eosinophils 4 % 0-3 Above high normal [facility] ([facility]) Monocytes 4 % 0-5 Normal (applies to non-numeric resul ts) [facility] ([facility]) Hypochromasia Laboratory test result Normal (applies t o non-numeric results) [facility] ([facility]) Anisocytosis Laboratory test result Normal (applies to non -numeric results) [facility] ([facility]) Metamyelocytes 2 % 0-0 Above high normal [facility] ([facility]) ID Date Data Source [id number] 07/04/2020 11:34:00 PM EST [facility] ([facility]) Name Value Range Interpretation Code Description Data Aby rce(s) Supporting Document(s) Lipase [Enzymatic activity/volume] in Serum or Plasma 69 U/L 73-393 Below low normal [facility] ([facility]) ID Date Data Source [id number] 07/04/2020 11:34:00 PM EST [facility] ([facility]) Name Value Range Interpretation Code Description Data Aby rce(s) Supporting Document(s) Glucose, Fasting 85 mg/dL 70-100 Normal (applies to non-numeric results) [facility] ([facility]) Blood Urea Nitrogen 9 mg/dL 7-18 Normal (applies to non-nume mike results) [facility] ([facility]) Glomerular Filtration Rate 44.7 Below low normal [facility] ([facility]) <content>Units are mL/min/1.73 m2</content>
<content></content>
<content>Chronic Kidney Disease Staging per NKF:</content>
<content></content>
<content>Stage I & II GFR >=60 Normal to Mildly Decreased</content>
<content>Stage III GFR 30-59 Moderately Decreased</content>
<content>Stage IV GFR 15-29 Severely Decreased</content>
<content>Stage V GFR <15 Very Little GFR Left</content>
<content>ESRD GFR <15 on [facility]</content>
<content></content> Creatinine For GFR 1.27 mg/dL 0.55-1.30 Normal (applies to non -numeric results) [facility] ([facility]) Potassium Serum 4.3 meq/L 3.5-5.1 Normal (applies to non-numeric results) [facility] ([facility]) Sodium Level 133 meq/L 136-145 Below low normal [facility] ([facility]) Chloride Level 100 meq/L 98-107 Normal (applies to non-numeric r esults) [facility] ([facility]) Carbon Dioxide Level 27 meq/L 21-32 Normal (applies to non-num eladio results) [facility] Calcium Level 8.3 mg/dL 8.8-10.2 Below low normal [facility] ([facility]) Anion Gap 6 meq/L 8-16 Below low normal [facility] ( [facility]) ID Date Data Source [id number] 07/04/2020 11:34:00 PM EST [facility] ([facility]) Name Value Range Interpretation Code Description Data Aby rce(s) Supporting Document(s) Ast/Sgot 13 U/L 7-37 Normal (applies to non-numeric resul ts) [facility] ([facility]) Alt/SGPT 15 U/L 12-78 Normal (applies to non-numeric resul ts) [facility] Alkaline Phosphatase 75 U/L 45-117 Normal (applies to non-num eladio results) [facility] ([facility]) Bilirubin,Direct Laboratory test result 0.0-0.2 Normal ( applies to non-numeric results) [facility] ([facility]) Bilirubin,Total 0.2 mg/dL 0.2-1.0 Normal (applies to non-numeric results) [facility] ([facility]) Total Protein 6.4 GM/DL 6.4-8.2 Normal (applies to non-numeric re sults) [facility] ([facility]) Albumin 3.4 GM/DL 3.2-5.2 Normal (applies to non-numeric resul ts) [facility] ([facility]) Albumin/Globulin Ratio 1.1 1.2-2.2 Below low normal [facility] ([facility]) ID Date Data Source [id number] 07/04/2020 11:34:00 PM EST [facility] ([facility]) Name Value Range Interpretation Code Description Data Aby rce(s) Supporting Document(s) Prothrombin Time 13.3 s 12.5-14.3 Normal (applies to non-numeric results) [facility] ([facility]) Inr 0.99 Normal (applies to non-numeric resul ts) [facility] ([facility]) THERAPUTIC HUMAN INR VALUES INDICATIONS NORMAL RANGES PROPHYLAXIS/TREATMENT OF: VENOUS THROMBOSIS 2.0-3.0 PULMONARY EMBOLISM 2.0-3.0 PREVENTION OF SYSTEMIC EMBOLISM FROM: TISSUE HEART VALVES 2.0-3.0 ACUTE MYOCARDIAL INFARCTION 2.0-3.0 VALVULAR HEART DISEASE 2.0-3.0 ATRIAL FIBRILLATION 2.0-3.0 MECHANICAL VALVES(HIGH RISK) 2.5-3.5 RECURRENT MYOCARDIAL INFARCTION 2.5-3.5 ID Date Data Source [id number] 07/04/2020 11:34:00 PM EST [facility] ([facility]) Name Value Range Interpretation Code Description Data Aby rce(s) Supporting Document(s) White Blood Count 7.5 10 4.0-10.0 Normal (applies to non-numeri c results) [facility] ([facility]) Red Blood Count 3.68 10 4.00-5.40 Below low normal [facility] ([facility]) Hemoglobin 10.3 g/dL 12.0-15.5 Below low normal [facility] ( [facility]) Hematocrit 34.2 % 36.0-47.0 Below low normal [facility] ( [facility]) Mean Corpuscular Volume 92.9 fl 80.0-96.0 Normal ( applies to non-numeric results) [facility] ([facility]) Mean Corpuscular Hemoglobin 28.0 pg 27.0-33.0 Norm al (applies to non-numeric results) [facility] ([facility]) Red Cell Distribution Width 16.3 % 11.5-14.5 Above high normal [facility] ([facility]) Platelet Count, Automated 254 10 150-450 Normal (applies to non-numeric results) [facility] ([facility]) Mean Corpuscular HGB Conc 30.1 g/dL 32.0-36.5 Below low normal [facility] ([facility]) Nucleated Red Blood Cell % 0.0 % 0-0 Normal (applies to n on-numeric results) [facility] ([facility]) ID Date Data Source [id number] 06/23/2020 02:30:00 PM EDT [facility] Name Value Range Interpretation Code Description Data Aby rce(s) Supporting Document(s) SARS coronavirus 2 RNA [facility] This lab was ordered by [facility] and reported by [facility]. ID Date Data Source [id number] 06/19/2020 12:00:00 AM EDT [facility] Carlos Gilbert MD Patient Name: ARNOLD [id number] [facility] Date of : 1955[place] Date of Exam: 06/19/2020CHARISSA Hightower [id number]#: Fax: [phone] EXAM: CT THORAX WITHOUT CONTRASTCLINICAL [...] with some persistent chronic changes.Accredited by the [employer] in [place].ELOY Wooten/Eamon you for referring DUY RODRIGUEZ to our office. Electronically Signed - JARROD ZAPATA DO 06/20/20 12:01 Name Value Range Interpretation Code Description Data Aby rce(s) Supporting Document(s) ID Date Data Source [id number] 06/11/2020 12:00:00 AM EDT [facility] Ian Cortez Pa-C Patient Name: DUY RODRIGUEZ [id number] Date of : 1955[place] [address] Date of Exam: 06/11/2020PH#: Fax: [phone] EXAM: [...] rce(s) Supporting Document(s) ID Date Data Source [id number] 06/11/2020 12:00:00 AM EDT [facility] Ian Cortez Pa-C Patient Name: DUY RODRIGUEZ [id number] Date of : 1955[place] [address] Date of Exam: 06/11/2020#: Fax: [phone] EXAM: [...] rce(s) Supporting Document(s) ID Date Data Source [id number] 06/11/2020 12:00:00 AM EDT [facility] Ian Cortez Pa-C Patient Name: DUY RODRIGUEZ [id number] Date of : 1955[place] [address] Date of Exam: 06/11/2020#: Fax: [phone] EXAM: [...] rce(s) Supporting Document(s) ID Date Data Source [id number] 06/03/2020 03:30:00 PM EDT [facility] ([facility]) Name Value Range Interpretation Code Description Data Aby rce(s) Supporting Document(s) Bacteria identified in Urine by Culture Laboratory test result Normal (applies to non-numeric results) [facility] ([facility]) <content>FULL REPORT IN LAB NOTES (eCW a [...] FOR ESBL</content>
<content></content> ID Date Data Source [id number] 06/03/2020 03:30:00 PM EDT [facility] ([facility]) Name Value Range Interpretation Code Description Data Aby rce(s) Supporting Document(s) PH,Urine 6.0 units 5.0-9.0 Normal (applies to non-numeric resul ts) [facility] ([facility]) Appearance, Urine Laboratory test result Above high normal [facility] ([facility]) Color, Urine Laboratory test result Normal (applies to non -numeric results) [facility] ([facility]) Specific [place] Urine Auto 1.008 1.002-1.035 Norm al (applies to non-numeric results) [facility] ([facility]) Protein, Urine Auto Laboratory test result Above high norm al [facility] ([facility]) Glucose, Urine (Ua) Auto Laboratory test result Normal (applies to non-numeric results) [facility] ([facility]) Bilirubin, Urine Auto Laboratory test result Nor mal (applies to non-numeric results) [facility] ([facility]) Ketone, Urine Auto Laboratory test result Normal (applies to non-numeric results) [facility] ([facility]) Urobilinogen, Urine Auto 0.2 mg/dL 0.0-2.0 Normal (applies to non-numeric results) [facility] ([facility]) Nitrite, Urine Auto Laboratory test result Jody l (applies to non-numeric results) [facility] ([facility]) Blood, Urine Blood Laboratory test result Above high jody l [facility] ([facility]) Leukocyte Esterase, Urine Auto Laboratory test result Abov e high normal [facility] ([facility]) WBC, Urine Auto Laboratory test result 0-3 Above high normal [facility] ([facility]) Bacteria, Urine Auto Laboratory test result Above high nor mal [facility] ([facility]) RBC, Urine Auto 27 /HPF 0-3 Above high normal [facility] ([facility]) Squamous Epithelial Cell Ur AU 0 /HPF 0-6 N ormal (applies to non-numeric results) [facility] ([facility]) Mucus, Urine Laboratory test result Normal (applies to non -numeric results) [facility] ([facility]) Hyaline Cast, Urine Auto 0 /LPF 0-1 Normal (applies to non -numeric results) [facility] ID Date Data Source [id number] 06/02/2020 10:30:00 AM EDT [facility] ([facility]) Name Value Range Interpretation Code Description Data Aby rce(s) Supporting Document(s) Magnesium [Mass/volume] in Serum or Plasma 1.3 mg/dL 1.8-2.4 Belo w low normal [facility] ([facility]) ID Date Data Source [id number] 06/02/2020 10:30:00 AM EDT [facility] ([facility]) Name Value Range Interpretation Code Description Data Aby rce(s) Supporting Document(s) Creatinine For GFR 0.86 mg/dL 0.55-1.30 Normal (applies to non -numeric results) [facility] ([facility]) Blood Urea Nitrogen 6 mg/dL 7-18 Below low normal [facility] ([facility]) Glucose, Fasting 71 mg/dL 70-100 Normal (applies to non-numeric results) [facility] ([facility]) Glomerular Filtration Rate Laboratory test result Normal (applies to non- numeric results) [facility] ([facility]) <content>Units are mL/min/1.73 m2</content>
<content></content>
<content>Chronic Kidney Disease Staging per NKF:</content>
<content></content>
<content>Stage I & II GFR >=60 Normal to Mildly Decreased</content>
<content>Stage III GFR 30- 59 Moderately Decreased</content>
<content>Stage IV GFR 15-29 Severely Decreased</content>
<content>Stage V GFR <15 Very Little GFR Left</content>
<content>ESRD GFR <15 on [facility]</content>
<content></content> Sodium Level 126 meq/L 136-145 Below low normal [facility] ([facility]) Potassium Serum 4.4 meq/L 3.5-5.1 Normal (applies to non-numeric results) [facility] ([facility]) Carbon Dioxide Level 23 meq/L 21-32 Normal (applies to non-num eladio results) [facility] ([facility]) Chloride Level 94 meq/L 98-107 Below low normal [facility] ([facility]) Calcium Level 8.5 mg/dL 8.8-10.2 Below low normal [facility] ([facility]) Anion Gap 9 meq/L 8-16 Normal (applies to non-numeric resul ts) [facility] ([facility]) ID Date Data Source [id number] 06/02/2020 10:30:00 AM EDT [facility] ([facility]) Name Value Range Interpretation Code Description Data Aby rce(s) Supporting Document(s) Alt/SGPT 14 U/L 12-78 Normal (applies to non-numeric resul ts) [facility] Ast/Sgot 15 U/L 7-37 Normal (applies to non-numeric resul ts) [facility] Bilirubin,Total 0.3 mg/dL 0.2-1.0 Normal (applies to non-numeric results) [facility] ([facility]) Alkaline Phosphatase 76 U/L 45-117 Normal (applies to non-num eladio results) [facility] ([facility]) Bilirubin,Direct 0.1 mg/dL 0.0-0.2 Normal (applies to non-numeric results) [facility] ([facility]) Total Protein 6.1 GM/DL 6.4-8.2 Below low normal [facility] ([facility]) Albumin 2.7 GM/DL 3.2-5.2 Below low normal [facility] ( [facility]) Albumin/Globulin Ratio 0.8 1.2-2.2 Below low normal [facility] ([facility]) ID Date Data Source [id number] 06/02/2020 10:30:00 AM EDT [facility] ([facility]) Name Value Range Interpretation Code Description Data Aby rce(s) Supporting Document(s) C reactive protein [Mass/volume] in Serum or Plasma by High sensitivity method 0.96 mg/dL 0.00-0.30 Above high normal [facility] ([facility]) ID Date Data Source [id number] 06/02/2020 10:30:00 AM EDT [facility] ([facility]) Name Value Range Interpretation Code Description Data Aby rce(s) Supporting Document(s) White Blood Count 8.6 10 4.0-10.0 Normal (applies to non-numeri c results) [facility] ([facility]) Hematocrit 31.3 % 36.0-47.0 Below low normal [facility] ( [facility]) Hemoglobin 9.7 g/dL 12.0-15.5 Below low normal [facility] ( [facility]) Red Blood Count 3.42 10 4.00-5.40 Below low normal [facility] ([facility]) Mean Corpuscular Hemoglobin 28.4 pg 27.0-33.0 Norm al (applies to non-numeric results) [facility] ([facility]) Mean Corpuscular Volume 91.5 fl 80.0-96.0 Normal ( applies to non-numeric results) [facility] ([facility]) Mean Corpuscular HGB Conc 31.0 g/dL 32.0-36.5 Below low normal [facility] ([facility]) Platelet Count, Automated 208 10 150-450 Normal (applies to non-numeric results) [facility] ([facility]) Red Cell Distribution Width 16.5 % 11.5-14.5 Above high normal [facility] ([facility]) Lymph % 19.6 % 24.0-44.0 Below low normal [facility] ( [facility]) Island % 10.1 % 0.0-5.0 Above high normal [facility] ([facility]) Neutrophils % 63.0 % 36.0-66.0 Normal (applies to non-numeric re sults) [facility] ([facility]) Baso % 0.4 % 0.0-1.0 Normal (applies to non-numeric resul ts) [facility] ([facility]) Immature Granulocyte % 0.6 % 0-3.0 Normal (applies to non-n umeric results) [facility] ([facility]) Eos % 6.3 % 0.0-3.0 Above high normal [facility] ([facility]) Lymph # 1.7 10 1.5-5.0 Normal (applies to non-numeric resul ts) [facility] ([facility]) Nucleated Red Blood Cell % 0.0 % 0-0 Normal (applies to n on-numeric results) [facility] ([facility]) Neutrophils # 5.4 10 1.5-8.5 Normal (applies to non-numeric re sults) [facility] ([facility]) Eos # 0.5 10 0.0-0.5 Normal (applies to non-numeric resul ts) [facility] ([facility]) Baso # 0.0 10 0.0-0.2 Normal (applies to non-numeric resul ts) [facility] ([facility]) Island # 0.9 10 0.0-0.8 Above high normal [facility] ([facility]) ID Date Data Source [id number] 06/02/2020 10:30:00 AM EDT [facility] ([facility]) Name Value Range Interpretation Code Description Data Aby rce(s) Supporting Document(s) Iron (Fe) 37 ug/dL 50-170 Below low normal [facility] ( [facility]) Total Iron Binding Capacity 223 ug/dL 250-450 Below low normal [facility] ([facility]) Percent Saturation 16.6 % 13.2-45.0 Normal (applies to non-numer ic results) [facility] ([facility]) ID Date Data Source [id number] 06/02/2020 10:30:00 AM EDT [facility] ([facility]) Name Value Range Interpretation Code Description Data Aby rce(s) Supporting Document(s) Lipase [Enzymatic activity/volume] in Serum or Plasma 82 U/L 73-393 Normal (applies to non-numeric results) [facility] ([facility]) ID Date Data Source [id number] 06/02/2020 10:30:00 AM EDT [facility] ([facility]) Name Value Range Interpretation Code Description Data Aby rce(s) Supporting Document(s) Thyroid Stimulating Hormone 6.210 uIU/ML 0.358-3.740 Above high jody l [facility] ([facility]) Free T4 1.85 ng/dL 0.76-1.46 Above high normal [facility] ([facility]) ID Date Data Source [id number] 06/02/2020 10:30:00 AM EDT [facility] ([facility]) Name Value Range Interpretation Code Description Data Aby rce(s) Supporting Document(s) Laboratory test finding (navigational concept) 0.8 ug/mL 1 .0-2.5 Below low normal [facility] ([facility]) This test was developed and its performa nce characteristics determined by [facility]. It has not been cleared or approved by the Food and Drug Administration. Detection Limit = 0.2 Laboratory test finding (navigational concept) 1.1 ug/mL 1 .0-2.5 Normal (applies to non-numeric results) [facility] ([facility]) This test was developed and its performa nce characteristics determined by [facility]. It has not been cleared or approved by the Food and Drug Administration. Detection Limit = 0.2 ID Date Data Source [id number] 06/02/2020 10:30:00 AM EDT [facility] ([facility]) Name Value Range Interpretation Code Description Data Aby rce(s) Supporting Document(s) Randa (Hep2) Laboratory test result Normal (applies to non-n umeric results) [facility] ([facility]) <content>Negative <1:80</content>
<content>Borderline 1:80</content>
<content>Positive >1:80</content>
<content>Performed at: - [facility]</content>
<content>[address] [place], [place] [id number]</content>
<content>[employer] Operator: Javier Scott MD, Phone: [phone]</content>
<content>Performed at: - [facility] [place]</content>
<content>[address], [place] [id number]</content>
<content>[employer] Operator: Tammy Sarmiento MD, Phone: [phone]</content>
<content></content> ID Date Data Source [id number] 06/02/2020 08:33:00 AM EDT [facility] ([facility]) Name Value Range Interpretation Code Description Data Aby rce(s) Supporting Document(s) White Blood Count 8.6 4.0-10.0 [facility] ([facility]) Platelets 208 172-450 [facility] Red Blood Count 3.42 4.00-5.40 [facility] ([facility]) Hematocrit 31.3 [facility] ([facility]) Hemoglobin 9.7 [facility] ([facility]) ID Date Data Source [id number] 06/02/2020 08:33:00 AM EDT [facility] ([facility]) Name Value Range Interpretation Code Description Data Aby rce(s) Supporting Document(s) Thyroid Stimulating Hormone 6.210 0.358-3.740 [facility] ([facility]) C-Reactive Protein 0.96 [facility] ([facility]) Free T4 1.85 [facility] Lipoprotein lipase [Enzymatic activity/volume] in Serum or Plasma 82 [facility] ([facility]) ID Date Data Source [id number] 06/02/2020 08:33:00 AM EDT [facility] ([facility]) Name Value Range Interpretation Code Description Data Aby rce(s) Supporting Document(s) Iron 37 50-170 [facility] Iron binding capacity [Mass/volume] in Serum or Plasma 223 [facility] ([facility]) Tibc % Saturation 16.6 [facility] ([facility]) ID Date Data Source [id number] 06/02/2020 08:33:00 AM EDT [facility] ([facility]) Name Value Range Interpretation Code Description Data Aby rce(s) Supporting Document(s) Magnesium Level 1.3 1.8-2.4 [facility] ([facility]) ID Date Data Source [id number] 06/02/2020 08:33:00 AM EDT [facility] ([facility]) Name Value Range Interpretation Code Description Data Aby rce(s) Supporting Document(s) Albumin [Mass/volume] in Serum or Plasma 2.7 [facility] ([facility]) Alanine aminotransferase [Enzymatic activity/volume] in Serum or Pl asma 14 [facility] ([facility]) Calcium [Mass/volume] in Serum or Plasma 8.5 [facility] ([facility]) Chloride [Moles/volume] in Serum or Plasma 94 [facility] ([facility]) Carbon dioxide, total [Moles/volume] in Serum or Plasma 8.5 [facility] ([facility]) Alkaline phosphatase [Enzymatic activity/volume] in Serum or Plasma 7 6 [facility] ([facility]) Potassium [Moles/volume] in Serum or Plasma 4.4 [facility] ([facility]) Sodium 126 [facility] ([facility] Protein [Mass/volume] in Serum or Plasma 6.1 [facility] ([facility]) Aspartate aminotransferase [Enzymatic activity/volume] in Serum or Plasma 15 [facility] ([facility]) Urea nitrogen [Mass/volume] in Serum or Plasma 6 [facility] ([facility]) Glucose 71 70-100 [facility] Creatinine For GFR 6 [facility] ([facility]) ID Date Data Source [id number] 04/02/2020 06:00:00 PM EDT [facility] ([facility]) Name Value Range Interpretation Code Description Data Aby rce(s) Supporting Document(s) aPTT in Platelet poor plasma by Coagulation assay 108.7 s 25.0-38.4 Above high normal [facility] ([facility]) ID Date Data Source [id number] 04/02/2020 09:45:00 AM EDT [facility] ([facility]) Name Value Range Interpretation Code Description Data Aby rce(s) Supporting Document(s) aPTT in Platelet poor plasma by Coagulation assay 45.1 s 25.0-38.4 Above high normal [facility] ([facility]) ID Date Data Source [id number] 04/02/2020 12:01:00 AM EDT [facility] ([facility]) Name Value Range Interpretation Code Description Data Aby rce(s) Supporting Document(s) aPTT in Platelet poor plasma by Coagulation assay 95.8 s 25.0-38.4 Above high normal [facility] ([facility]) ID Date Data Source [id number] 03/28/2020 01:00:00 PM EDT [facility] ([facility], ) Name Value Range Interpretation Code Description Data Aby rce(s) Supporting Document(s) Surgical pathology study Laboratory test result [facility] ([facility], ) <content>FINAL DIAGNOSIS</content>
< content></content>
<content>Colon, [...] in aggregate</content>
<content>are noted in the container. Rope Tier sections are submitted as</content>
<content>follows; (A1 & A2) cecum, (A3 & A4) transverse colon and (A5 & A6)</content>
<content>sigmoid colon.</content>
<content>- SH</content>
<content>04/24/2020 - 1413</content>
<content> </content>
<content>Signed Cortez Portillo MD 04/24/2020 1558</content>
<content></content> ID Date Data Source [id number] 03/28/2020 11:25:00 AM EDT [facility] Name Value Range Interpretation Code Description Data Aby rce(s) Supporting Document(s) Packed Cells Laboratory test result [facility] TRANSFUSED PRODUCT: PACKED CELLS COUNT: 2 ID Date Data Source [id number] 03/28/2020 11:25:00 AM EDT [facility] Name Value Range Interpretation Code Description Data Aby rce(s) Supporting Document(s) AB Screen (Indirect Sara)Vis Laboratory test result Normal (applies to non- numeric results) [facility] Blood Type Laboratory test result Normal (applies to non-n umeric results) [facility] ID Date Data Source [id number] 03/28/2020 06:40:00 AM EDT [facility] Name Value Range Interpretation Code Description Data Aby rce(s) Supporting Document(s) Magnesium [Mass/volume] in Serum or Plasma 5.5 mg/dL 1.8-2 .4 Above upper panic limits [facility] ([facility]) ID Date Data Source [id number] 03/28/2020 06:40:00 AM EDT [facility] ([facility]) Name Value Range Interpretation Code Description Data Aby rce(s) Supporting Document(s) Blood Urea Nitrogen 36 mg/dL 7-18 Above high normal [facility] ([facility]) Glucose, Fasting 130 mg/dL 70-100 Above high normal [facility] ([facility]) Creatinine For GFR 1.77 mg/dL 0.55-1.30 Above high normal [facility] Sodium Level 136 meq/L 136-145 Normal (applies to non-numeric res ults) [facility] ([facility]) Potassium Serum 7.2 meq/L 3.5-5.1 Above upper panic limits [facility] ([facility]) This specimen has an elevated potassium level but there is NO visible hemolysis noted. Glomerular Filtration Rate 30.5 Below low normal [facility] ([facility]) <content>Units are mL/min/1.73 m2</content>
<content></content>
<content>Chronic Kidney Disease Staging per NKF:</content>
<content></content>
<content>Stage I & II GFR >=60 Normal to Mildly Decreased</content>
<content>Stage III GFR 30- 59 Moderately Decreased</content>
<content>Stage IV GFR 15-29 Severely Decreased</content>
<content>Stage V GFR <15 Very Little GFR Left</content>
<content>ESRD GFR <15 on [employer]</content>
<content></content> Chloride Level 108 meq/L 98-107 Above high normal [facility] ([facility]) Carbon Dioxide Level 17 meq/L 21-32 Below low normal [facility]) Anion Gap 11 meq/L 8-16 Normal (applies to non-numeric resul ts) [facility] ([facility]) Ast/Sgot 31 U/L 7-37 Normal (applies to non-numeric resul ts) [facility] ([facility]) Calcium Level 7.9 mg/dL 8.8-10.2 Below low normal [facility] ([facility]) Alkaline Phosphatase 67 U/L 45-117 Normal (applies to non-num eladio results) [facility] ([facility]) Alt/SGPT 22 U/L 12-78 Normal (applies to non-numeric resul ts) [facility] ([facility]) Bilirubin,Total 1.3 mg/dL 0.2-1.0 Above high normal [facility] ([facility]) Albumin 2.5 GM/DL 3.2-5.2 Below low normal [facility] ( [facility]) Total Protein 5.4 GM/DL 6.4-8.2 Below low normal [facility] ([facility]) Albumin/Globulin Ratio 0.9 1.2-2.2 Below low normal [facility] ([facility]) ID Date Data Source [id number] 03/28/2020 06:40:00 AM EDT [facility] ([facility]) Name Value Range Interpretation Code Description Data Aby rce(s) Supporting Document(s) White Blood Count 19.8 10 4.0-10.0 Above high normal [facility] ([facility]) Red Blood Count 4.98 10 4.00-5.40 Normal (applies to non-numeric results) [facility] Hematocrit 47.1 % 36.0-47.0 Above high normal [facility] ([facility]) Hemoglobin 14.8 g/dL 12.0-15.5 Normal (applies to non-numeric resul ts) [facility] ([facility]) Mean Corpuscular Volume 94.6 fl 80.0-96.0 Normal ( applies to non-numeric results) [facility] ([facility]) Mean Corpuscular Hemoglobin 29.7 pg 27.0-33.0 Norm al (applies to non-numeric results) [facility] Red Cell Distribution Width 14.7 % 11.5-14.5 Above high normal [facility] ([facility]) Platelet Count, Automated 335 10 150-450 Normal (applies to non-numeric results) [facility] ([facility]) Mean Corpuscular HGB Conc 31.4 g/dL 32.0-36.5 Below low normal [facility] ([facility]) Nucleated Red Blood Cell % 0.0 % 0-0 Normal (applies to n on-numeric results) [facility] ([facility]) ID Date Data Source [id number] 03/27/2020 04:27:00 PM EDT [facility] ([facility]) Name Value Range Interpretation Code Description Data Aby rce(s) Supporting Document(s) Red Blood Count 4.86 10 4.00-5.40 Normal (applies to non-numeric results) [facility] ([facility]) White Blood Count 14.4 10 4.0-10.0 Above high normal [facility]) Mean Corpuscular Volume 91.8 fl 80.0-96.0 Normal ( applies to non-numeric results) [facility] ([facility]) Hematocrit 44.6 % 36.0-47.0 Normal (applies to non-numeric resul ts) [facility] ([facility]) Hemoglobin 14.5 g/dL 12.0-15.5 Normal (applies to non-numeric resul ts) [facility] Red Cell Distribution Width 14.0 % 11.5-14.5 Norm al (applies to non-numeric results) [facility] ([facility]) Mean Corpuscular HGB Conc 32.5 g/dL 32.0-36.5 Normal (applies to non-numeric results) [facility] ([facility]) Mean Corpuscular Hemoglobin 29.8 pg 27.0-33.0 Norm al (applies to non-numeric results) [facility] Platelet Count, Automated 248 10 150-450 Normal (applies to non-numeric results) [facility] ([facility]) Neutrophils % 74.4 % 36.0-66.0 Above high normal [facility] ([facility]) Lymph % 10.9 % 24.0-44.0 Below low normal [facility] ( [facility]) Island % 13.9 % 0.0-5.0 Above high normal [facility] ([facility]) Eos % 0.3 % 0.0-3.0 Normal (applies to non-numeric resul ts) [facility] ([facility]) Baso % 0.2 % 0.0-1.0 Normal (applies to non-numeric resul ts) [facility] ([facility]) Immature Granulocyte % 0.3 % 0-3.0 Normal (applies to non-n umeric results) [facility] ([facility]) Neutrophils # 10.7 10 1.5-8.5 Above high normal [facility] ([facility]) Nucleated Red Blood Cell % 0.0 % 0-0 Normal (applies to n on-numeric results) [facility] ([facility]) Lymph # 1.6 10 1.5-5.0 Normal (applies to non-numeric resul ts) [facility] ([facility]) Baso # 0.0 10 0.0-0.2 Normal (applies to non-numeric resul ts) [facility] ([facility]) Island # 2.0 10 0.0-0.8 Above high normal [facility] ([facility]) Eos # 0.0 10 0.0-0.5 Normal (applies to non-numeric resul ts) [facility] ([facility]) ID Date Data Source [id number] 03/27/2020 04:27:00 PM EDT [facility] ([facility]) Name Value Range Interpretation Code Description Data Aby rce(s) Supporting Document(s) Inr 1.17 Normal (applies to non-numeric resul ts) [facility] ([facility]) THERAPUTIC HUMAN INR VALUES INDICATIONS NORMAL RANGES PROPHYLAXIS/TREATMENT OF: VENOUS THROMBOSIS 2.0-3.0 PULMONARY EMBOLISM 2.0-3.0 PREVENTION OF SYSTEMIC EMBOLISM FROM: TISSUE HEART VALVES 2.0-3.0 ACUTE MYOCARDIAL INFARCTION 2.0-3.0 VALVULAR HEART DISEASE 2.0-3.0 ATRIAL FIBRILLATION 2.0-3.0 MECHANICAL VALVES(HIGH RISK) 2.5-3.5 RECURRENT MYOCARDIAL INFARCTION 2.5-3.5 Partial Thromboplastin Time 35.4 s 25.0-38.4 Norm al (applies to non-numeric results) [facility] ([facility]) Prothrombin Time 15.2 s 11.8-14.0 Above high normal [facility] ID Date Data Source [id number] 03/27/2020 11:12:00 AM EDT [facility] ([facility]) Name Value Range Interpretation Code Description Data Aby rce(s) Supporting Document(s) Coronavirus 2019 Nasopharygeal Laboratory test [facility] Laboratory test finding (navigational concept) Laboratory test result [facility] Laboratory test finding (navigational concept) Laboratory test r esult Normal (applies to non-numeric results) [facility] ([facility]) A false negative result may occur if [...] pathogens. DISCLAIMER: Testing was performed using the [employer] SARS-CoV-2 test. This test was developed and its performance characteristics determined by [employer]. This test has not been FDA cleared [...] test finding (navigational concept) Laboratory test result [facility] ([facility]) Laboratory test finding (navigational concept) Laboratory test result [facility] ([facility]) Laboratory test finding (navigational concept) Laboratory [facility] Laboratory test finding (navigational concept) Laboratory test [facility] Laboratory test finding (navigational concept) Laboratory test result [facility] ([facility]) Laboratory test finding (navigational concept) Laboratory test result [facility] ([facility]) Laboratory test finding (navigational concept) Laboratory test result [facility] ([facility]) Laboratory test finding (navigational concept) Laboratory test result [facility] ([facility]) Laboratory test finding (navigational concept) Laboratory test result [facility] ([facility]) Laboratory test finding (navigational concept) Laboratory test result [facility] ([facility]) Laboratory test finding (navigational concept) Laboratory test result [facility] ([facility]) Laboratory test finding (navigational concept) Laboratory test result [facility] ([facility]) Laboratory test finding (navigational concept) Laboratory test result [facility] ([facility]) Laboratory test finding (navigational concept) Laboratory test result [facility] ([facility]) Laboratory test finding (navigational concept) Laboratory test result [facility] ([facility]) Laboratory test finding (navigational concept) Laboratory test result [facility] ([facility]) Laboratory test finding (navigational concept) Laboratory test result [facility] ([facility]) Laboratory test finding (navigational concept) Laboratory test result [facility] ([facility]) Laboratory test finding (navigational concept) Laboratory test result [facility] [facility]) Laboratory test finding (navigational concept) Laboratory test result [facility] ([facility]) Laboratory test finding (navigational concept) Laboratory test result [facility] ([facility]) Laboratory test finding (navigational concept) Laboratory test result [facility] ([facility]) ID Date Data Source [id number] 02/18/2020 10:40:49 AM EDT [facility] Name Value Range Interpretation Code Description Data Aby rce(s) Supporting Document(s) Progress Note [facility] IVDJXp6zVpOVWvIk08/UEZbcCHBed8NdTRptNYa5FOozWFYwW5WpDNR6cF1jIHN4MAtUGxEjLzQbEcBe [facility] [file] E3etonrTikjmvipY+1kQhatzrlu5D1tvn86d92on7x +BhpyaVhgF/shcOBg3vF0VJOQsBt9TLn48dk+7huYcXKUeIN0v/1yQiwrUwvJrohZUO75z1ebE+yPvWP rUkbEl9ALKmqxh0/I/qddvzoW3D9JGkWDlc3ZlUTSSXjRSN4NFL+ZUMZNOXztxOS0HK/jRHUYW6Tzb+b jKZ+ORVpt72dkl00ZqF9EWKBhXniQ28eA4FbQ4HcqI o6VKhPM2Pvdy/wpmnOtAfCO5mODv/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 [file] AgICAgICAgICAgICAgICAgICAgICAgICAgICAgICAg ICAgICAgICAgICAgICAgICAgICAgICAgICAgICAgICAgICAgICAgICANCiAgICAgICAgICAgICAgICAg ICAgICAgICAgICAgICAgICAgICAgICAgICAgICAgICAgICAgICAgICAgICAgICAgICAgICAgICAgICAg ICAgICAgICAgICAgICAgICAgICAgICANCiAgICAgIC AgICAgICAgICAgICAgICAgICAgICAgICAgICAgICAgICAgICAgICAgICAgICAgICAgICAgICAgICAgIC AgICAgICAgICAgICAgICAgICAgICAgICAgICAgICAgICANCiAgICAgICAgICAgICAgICAgICAgICAgIC AgICAgICAgICAgICAgICAgICAgICAgICAgICAgICAg ICAgICAgICAgICAgICAgICAgICAgICAgICAgICAgICAgICAgICAgICAgICANCiAgICAgICAgICAgICAg ICAgICAgICAgICAgICAgICAgICAgICAgICAgICAgICAgICAgICAgICAgICAgICAgICAgICAgICAgICAg ICAgICAgICAgICAgICAgICAgICAgICAgICANCiAgIC AgICAgICAgICAgICAgICAgICAgICAgICAgICAgICAgICAgICAgICAgICAgICAgICAgICAgICAgICAgIC AgICAgICAgICAgICAgICAgICAgICAgICAgICAgICAgICAgICANCiAgICAgICAgICAgICAgICAgICAgIC AgICAgICAgICAgICAgICAgICAgICAgICAgICAgICAg ICAgICAgICAgICAgICAgICAgICAgICAgICAgICAgICAgICAgICAgICAgICAgICANCiAgICAgICAgICAg ICAgICAgICAgICAgICAgICAgICAgICAgICAgICAgICAgICAgICAgICAgICAgICAgICAgICAgICAgICAg ICAgICAgICAgICAgICAgICAgICAgICAgICAgICANCi AgICAgICAgICAgICAgICAgICAgICAgICAgICAgICAgICAgICAgICAgICAgICAgICAgICAgICAgICAgIC AgICAgICAgICAgICAgICAgICAgICAgICAgICAgICAgICAgICAgICANCiAgICAgICAgICAgICAgICAgIC AgICAgICAgICAgICAgICAgICAgICAgICAgICAgICAg ICAgICAgICAgICAgICAgICAgICAgICAgICAgICAgICAgICAgICAgICAgICAgICAgICANCjw/nMBuL3hq sVLhvbD1B3lsTz8GXs9AGR2sp6JpWZRoOHfcaxNvUhdUDpOdOGStUsbETbd7UHmhMQ2GkLJsF7KdL0Lz CVpcSF4TOUIhBVFbwUEuSQGsBJMcNpE2XQIiWFhyMJ 4GzMDkNGqtIZKdVYLpSxTnDIYvJADkHCLxNELrIMQYHZDxJVHeNhMyDPAvWOTvSSdeWZPETGP8UGYaIt PzHEZdNJBsZsSpMCJEGC9TXfAbG5BdwA48RMJpICx+Xt2JRW7gw3PuCVw4TfUsYN9zkv8SOKfJTxVlU0 ZzupI5TCY7MAMjPi8JTMOkZKJkiBD3TDXrMLOEJuNx W8CxsC61UVMNLq0+ETenqyKbOzlIYbL0KDRlf3QbGJv0BJ7PJMPfLIe2yYWzOHKsB2Dhx6IuNf73ZMOh KlpkNamzmndcg52mXYe9ANGIGFKztGB6WbQtNcAmNbCpJHQ1UOAgNQ4vMMybPR9FRLU4LLefYEGlEVCz V5dDRqAbTQGdGHKvmQuyEX7QAzFqO4QxbdUivEI5Ay AwIFINCj4+GKxdqxNlXmtBEfV4RTKsh4BpKYl5LU6FHARdIZjwSN3PHLQvfQ6cRSedWK9ZTjD7UIOoFT TDHjRrW62hsLOuZXn8C9IlQcWcORScSuctNJByNVnnHdKfRMYqSeMfWPrmKS7+ID4+YXcxPI1HEUybua AwKOVzOz9OFRFmGNEcMZ2tYGBtBTRlD1K2jIqxNTSX PjLqH0dkbmkxCW3aLPFaL581tSfavwDeIZYlAGEyYc1DFUJtENM8AYVhyMPgKQCuAFLNWJyyQL9EdDFx ZSG4cT8nWRieBSAsEXVgZ9uOJnXylSwvST52fMeoksGkuSYbIRk+Ub4DUA0dh5ThZQy5ayKhGSipFJU9 TIzsKUSoZIAhNDJnCEW1DVI2CWBVWiSdVLUfGTLkYF soBPPlXGIaqn5UMDFkYLB3CUZzAYVdVAXaVMBoGExwSXZyGDX8DgD3VCAgTEMhGH4IXgWiVFCwTCWfKP euJORsZJQifb7HNDWeBVFgMpe7VcHcXMNnEUGaTHduTYRyNNV6CjMkNBGeUXRjBL1ZZiSvUEHdUOh4QQ MiSUXcMGTrqd5JGBTjUZEqBBBdUYUnIBErUOEkUDlz YWUdPDSdWYWpNMGxMYTlFZ9GSmVbRZLvFYUqQDLmDBXnXZPewf4DSKSbQIVpITP6QRYnQMIqHYVnZSnh JLNtJQM2LbS2LMJbDVGtYN1ALdTcUHKoKtOvUrIpZEKzVRHmog3TDCKaJVZrERE7IFRgAAFmEBIcBOyh FWTtKPF2QGW4KVXsTKViDT6NGnReFBPxVjY9RxWgYX AxKXKbbg4NLSBlTLEmUhm5PlZrRSQwZOZjGHxvTXZsKEQ3MFKoGQNoIERiEM6CRaCvITQrZuT8RMrfGL QjUUBqqb7TDXBfHFVaRPX6UKNhOGXvLLKkBIzcXHRfOSU3RkW6DBDjRCAzMY4KVjXxQLJxEoV6WKXoDU FpZNBmpa8SJHOoMDBqWqRoMWOhHTDsFBHaEEhgJVGw MZO3XeWeSFTdSPOfEV5XCmUgDDAhPfawLdLoDQLhKCLqee1TNIQoNIDwTMQ9LICaAIBoITElCKnoGZYr KUG3UyIoXHNeEYTdES0CXaMgMOAtGup2BMTdBFUyANYklr2WRTRoXILlJIjeZcCfRPJzHHKwOBmeATHe MGUqCCJzUPRtXENqMF0MJyMpDOZwBKH9TxOaLHYhHW Owgj3QZONzEXJ1NGn6HPJkTLFoFTMbRNpxYHPrMRKkLLB0IZKaBQPnVT0YXwMuPGYbOKBuVAMyDXClYP Cbzx6JPQWqUVR8McS2ANEiKPOlZYYwOAioSVGlSYChDjQzGVCvZLEeUB1JCeQaCCZgDGR7MFPwWDUmOD Yjwr9CDVIyLBS1LuH6GsSjAEVgNMNoBIftIRHpPKE1 FuK0GWWcJGTePA0NXaGxUFZgSIA4ABTcIJOmNIXeoy4TFIKzWBF4CUi6WmEgNNZuATNvQQtaIGUcJHE1 HGG6PSElARKlKH7ORyQvDIYzBWC1AMKrUIGpRZZgfl6VBCImWAF1Qxm6ZuLlNJRiRLOwDBkqCRRcATM9 XQHeXIDpSPHhYH1IVmTpTKaqXXSLTkm8IQljG4d9VM G2Ku2GP9Eoe4WeIPTkDCFQQJsgHK9hmsRgWLZeEh7NL7eEHrs8TnYjFFV1BSI9BWE6XCM9FeHcV0ObAN KmJOE9FbydEa9tDFs2ISGpNMpeJav0KNGiFpI9VfNgM2EjIGK2QzkeQvFxDtJxUO5DHy4KKaS1NZJ0tQ DpLl1JZPeiBwoRYsKlYC9UCEg= ID Date Data Source [id number] 02/11/2020 09:14:00 AM EDT [facility] Name Value Range Interpretation Code Description Data Aby rce(s) Supporting Document(s) Coronavirus 2019 Nasopharygeal Laboratory test result [facility]) Testing was performed using the [employer] S ARS-CoV-2 assay. This test was developed and its performance characteristics determined by [facility] ([place]). This test has not been FDA cleared [...] detected) result in this assay. Performed at: [address] [id number] [employer] Machine Operator: Tammy Sarmiento MD, Phone: [phone] Not Detected ID Date Data Source [id number] 02/11/2020 09:14:00 AM EDT [facility] Name Value Range Interpretation Code Description Data Aby rce(s) Supporting Document(s) SARS CORONAVIRUS 2 RNA [facility] This lab was ordered by [facility] and reported by [facility]. ID Date Data Source [id number] 11/29/2019 03:30:00 PM EDT [facility] Name Value Range Interpretation Code Description Data Aby rce(s) Supporting Document(s) Ast/Sgot 21 U/L 7-37 Normal (applies to non-numeric resul ts) [facility] Bilirubin,Total 0.2 mg/dL 0.2-1.0 Normal (applies to non-numeric results) [facility] Alkaline Phosphatase 65 U/L 45-117 Normal (applies to non-num eladio results) [facility] ([facility]) Bilirubin,Direct 0.1 mg/dL 0.0-0.2 Normal (applies to non-numeric results) [facility] Alt/SGPT 23 U/L 12-78 Normal (applies to non-numeric resul ts) [facility] Albumin/Globulin Ratio 1.06 1.00-1.93 Normal (applies to non-numeric results) [facility] ([facility]) Total Protein 7.4 GM/DL 6.4-8.2 Normal (applies to non-numeric re sults) [facility] Albumin 3.8 GM/DL 3.2-5.2 Normal (applies to non-numeric resul ts) [facility]) ID Date Data Source [id number] 11/29/2019 03:30:00 PM EDT [facility] Name Value Range Interpretation Code Description Data Aby rce(s) Supporting Document(s) White Blood Count 11.0 10 4.0-10.0 Above high normal [facility] ([facility]) Red Blood Count 4.34 10 4.00-5.40 Normal (applies to non-numeric results) [facility] Hemoglobin 13.6 g/dL 12.0-15.5 Normal (applies to non-numeric resul ts) [facility]) Hematocrit 41.1 % 36.0-47.0 Normal (applies to non-numeric resul ts) [facility] Mean Corpuscular HGB Conc 33.1 g/dL 32.0-36.5 Normal (applies to non-numeric results) [facility] ([facility]) Mean Corpuscular Hemoglobin 31.3 pg 27.0-33.0 Norm al (applies to non-numeric results) [facility] ([facility]) Red Cell Distribution Width 18.6 % 11.5-14.5 Above high normal [facility] ([facility]) Mean Corpuscular Volume 94.7 fl 80.0-96.0 Normal ( applies to non-numeric results) [facility] ([facility]) Island % 7.3 % 0.0-5.0 Above high normal [facility] ([facility]) Platelet Count, Automated 216 10 150-450 Normal (applies to non-numeric results) [facility] ([facility]) Neutrophils % 60.4 % 36.0-66.0 Normal (applies to non-numeric re sults) [facility] ([facility]) Lymph % 19.8 % 24.0-44.0 Below low normal [facility] ( [facility]) Immature Granulocyte % 0.5 % 0-3.0 Normal (applies to non-n umeric results) [facility] ([facility]) Eos % 11.1 % 0.0-3.0 Above high normal [facility] ([facility]) Baso % 0.9 % 0.0-1.0 Normal (applies to non-numeric resul ts) [facility] ([facility]) Neutrophils # 6.6 10 1.5-8.5 Normal (applies to non-numeric re sults) [facility] ([facility]) Nucleated Red Blood Cell % 0.0 % 0-0 Normal (applies to n on-numeric results) [facility] ([facility]) Island # 0.8 10 0.0-0.8 Normal (applies to non-numeric resul ts) [facility] ([facility]) Lymph # 2.2 10 1.5-5.0 Normal (applies to non-numeric resul ts) [facility] ([facility]) Eos # 1.2 10 0.0-0.5 Above high normal [facility] ([facility]) Baso # 0.1 10 0.0-0.2 Normal (applies to non-numeric resul ts) [facility] ([facility]) ID Date Data Source [id number] 11/29/2019 03:30:00 PM EDT [facility] ([facility]) Name Value Range Interpretation Code Description Data Aby rce(s) Supporting Document(s) Glucose, Fasting 94 mg/dL 70-100 Normal (applies to non-numeric results) [facility] ([facility]) Glomerular Filtration Rate Laboratory test result Normal (applies to non- numeric results) [facility] ([facility]) <content>Units are mL/min/1.73 m2</content>
<content></content>
<content>Chronic Kidney Disease Staging per NKF:</content>
<content></content>
<content>Stage I & II GFR >=60 Normal to Mildly Decreased</content>
<content>Stage III GFR 30- 59 Moderately Decreased</content>
<content>Stage IV GFR 15-29 Severely Decreased</content>
<content>Stage V GFR <15 Very Little GFR Left</content>
<content>ESRD GFR <15 on [employer]</content>
<content></content> Creatinine For GFR 0.80 mg/dL 0.55-1.30 Normal (applies to non -numeric results) [facility] ([facility]) Blood Urea Nitrogen 9 mg/dL 7-18 Normal (applies to non-nume mike results) [facility] ([facility]) Sodium Level 139 meq/L 136-145 Normal (applies to non-numeric res ults) [facility] ([facility]) Potassium Serum 4.3 meq/L 3.5-5.1 Normal (applies to non-numeric results) [facility] ([facility]) Carbon Dioxide Level 29 meq/L 21-32 Normal (applies to non-num eladio results) [facility] ([facility]) Chloride Level 106 meq/L 98-107 Normal (applies to non-numeric r esults) [facility] ([facility]) Calcium Level 9.2 mg/dL 8.8-10.2 Normal (applies to non-numeric re sults) [facility] Anion Gap 4 meq/L 8-16 Below low normal [facility] ( [facility]) ID Date Data Source [id number] [facility]/29[facility]2019 [facility] Patient Name: ABDULKADIR [id number] Date of : [address] [address] Date of Exam: 11/29/2019PH#: Fax: [phone] EXAM: [...] rce(s) Supporting Document(s) ID Date Data Source [id number] 11/27/2019 01:45:00 PM EDT [facility] Name Value Range Interpretation Code Description Data Aby rce(s) Supporting Document(s) Coronavirus 2019 Nasopharygeal Laboratory test result [facility] ([facility]) Testing was performed using the [employer] SARS-CoV-2 test. This test was developed and its performance characteristics determined by [facility] ([place]). This test has not been FDA cleared [...] terminated or revoked sooner. Performed at: - [facility] [id number] [employer] Operator: Tammy Sarmiento MD, Phone: [phone] Not Detected ID Date Data Source [id number] 11/27/2019 01:45:00 PM EDT [facility] Name Value Range Interpretation Code Description Data Aby rce(s) Supporting Document(s) SARS CORONAVIRUS 2 RNA [facility] This lab was ordered by [facility] and reported by [facility]. ID Date Data Source [id number] 11/06/2019 09:53:38 AM EDT [facility] Name Value Range Interpretation Code Description Data Aby rce(s) Supporting Document(s) Progress Note [facility] CRGGXa4fKaYWAdDf21/ECGpzDUEpq5UiOJlmQBd9QDdnPGXyJ2FgQSX6uU5zZJR3SNxUXxMgGfOnJeIq [facility] GdMzuNQgAbYGZxMdmXFbIeIDbhRavuzHEcTX0RpEJ7VTRpQ20xPYJsRLCuQ2GbDPC1XKj+Ej5FBXWwwH WwMR8GSlyY4W3qzsjLBa9jaT/RNvCeR6Vic773StJW+JUypOZAKqPHjW8W7ZqnaWSETPkD/mfv74HuCh tcLZh5GC89IUStsn7ovvBiPyp2IYp826+hS2lm06lV /5f/vEGcqhsmt35Vm6OAE1am/skGkQ+0l3hx+UH+T+P//dQtjpZ0lbU0OUE/jjbDQGLY5aRvPsm/evBk qn6vBbQVqjAwwWYzKmE4S83CydIjpMX06mnYO1W/n6myG46lK/R6IW3pYG7rO1rf2NAHleXP6rZp85ei YKr01wUoVkr8XnxxPWBkU98lK/DhWp986lIkWXUpo8 RIs6ZljV72XGjuZpvIx0qk1G0r64KdvCJy1X0oblwkOzEk99dtj0A3tyr+Q1fqmXqM1hCXf6I8utAijO vUjuUel7meP2KHlY1gCiHZkqsWzYhCO4PdZ0L7zrfclnyur/e3nO51O20MtQIjL9wh8DYmva25aGSYik Vknn3/nN8jTaVERRQ1uL4AG+nqk5oIs9jcCbeQugH8 MBrNsmuH+atWe3nDqxq/VG/7B/3n6iT/p7Yt8gCGWSzcg3Od/2Pto084bdFL2ttiZK2wyp2grtzTlDMA rYUFEXCJfm380dF6Qe+DVPi7OUEmnzt1NFGmUYP78xrRUU4lNz3fzR8han74jBlQWzY2WzJGL8os2lg0 dOUVvlQX+K51qsOv6KnLna1ykZVap0mMQkPglY5SHt 5YJHRLPGZPknlvp2f7P+cqJ36nFggW4Y6rzWoMGbvobUK+sGFDIzVYx7J5QTvKiUXkz4XHbLLrIj96zZ Gr9F9aOz2AtTR9lKuAtfe+rqjr396+14cFYxHG2mhd30Zb1+ssnv2qp3rN7wfdUS+DE6bOwuwdX0b5Ul lSu3x9nd1aVDWtk2K5tbrH8pjsWEpL5shlK4Asbp9C PZ5dh0Qbb+jjXWYZEggin4S1lGl9lxEQKpwwoSnx6oNNlkCVdqIs7fFult41WoKpynLkB6WxsjJDv8u2 pTNXm8+cDr0X/r6tQBwDAvIMwQBNmHbzSVeCCkHjrOahrUmVbQ6ouEEbYnLHsDeF4gKToBpu2ghEcd/K bDScY2Nq7orgrcUlftCXiP2vjCfANzyOB+AtW7q5vK PwJ7Lw1rK9eFtghuaA3reCoIC31PT9M63dgfyhC/gPgbMjs1BaRC4rqbs7zDfbBR12zN6R6oirNnNp7E xLV+OfU5KnIdDQEFiicrfmWl6seb5lj5s70K5CYYTfJkW05cq5I0axHsRvQ3Ds1kZLbXhXfGttVba7em Iuo6Hb73ih54w4+++ed6r/8R/TRAP PULLER+sSu7a3Wv9rpe63 [file] ogICAgICAgICAgICAgICAgICAgICAgICAgICAgICAgICAgICAgICAgICAgICAgICAgICAgICAgICAgIC AgICAgICAgICAgICAgICAgICAgICAgICAgICAgICAgICAgICAgICAgDQogICAgICAgICAgICAgICAgIC AgICAgICAgICAgICAgICAgICAgICAgICAgICAgICAg ICAgICAgICAgICAgICAgICAgICAgICAgICAgICAgICAgICAgICAgICAgICAgICAgICAgDQogICAgICAg ICAgICAgICAgICAgICAgICAgICAgICAgICAgICAgICAgICAgICAgICAgICAgICAgICAgICAgICAgICAg ICAgICAgICAgICAgICAgICAgICAgICAgICAgICAgIC AgDQogICAgICAgICAgICAgICAgICAgICAgICAgICAgICAgICAgICAgICAgICAgICAgICAgICAgICAgIC AgICAgICAgICAgICAgICAgICAgICAgICAgICAgICAgICAgICAgICAgICAgDQogICAgICAgICAgICAgIC AgICAgICAgICAgICAgICAgICAgICAgICAgICAgICAg ICAgICAgICAgICAgICAgICAgICAgICAgICAgICAgICAgICAgICAgICAgICAgICAgICAgICAgDQogICAg ICAgICAgICAgICAgICAgICAgICAgICAgICAgICAgICAgICAgICAgICAgICAgICAgICAgICAgICAgICAg ICAgICAgICAgICAgICAgICAgICAgICAgICAgICAgIC AgICAgDQogICAgICAgICAgICAgICAgICAgICAgICAgICAgICAgICAgICAgICAgICAgICAgICAgICAgIC AgICAgICAgICAgICAgICAgICAgICAgICAgICAgICAgICAgICAgICAgICAgICAgDQogICAgICAgICAgIC AgICAgICAgICAgICAgICAgICAgICAgICAgICAgICAg ICAgICAgICAgICAgICAgICAgICAgICAgICAgICAgICAgICAgICAgICAgICAgICAgICAgICAgICAgDQog ICAgICAgICAgICAgICAgICAgICAgICAgICAgICAgICAgICAgICAgICAgICAgICAgICAgICAgICAgICAg ICAgICAgICAgICAgICAgICAgICAgICAgICAgICAgIC AgICAgICAgDQogICAgICAgICAgICAgICAgICAgICAgICAgICAgICAgICAgICAgICAgICAgICAgICAgIC UqNKYaNRTbCHIlGIZrNBBmWLFuAGPaVYBjFXZlLXXwWCXjNCNhUYJuTMFlYDOlMTXlROm4T1daZANyQN IxKO5hJSs1Em6+WZqWXcXsJAA5iqVqjH1MNY4aq4Tl KGzvLSNpv0JnGAk9WF6XSNNhDYuiDZ4FLQgzuq6ASYNwTAZdoPRVx5wxRuRuVUS4WVByPujtNM2JKMNc D4akffXyQUOoNHNUVHlxHYYTHMpnOQWADOGkXTPoCeWgNzEtULZrLCPiRHNBAPJ0DLBsCzKfHDDoGQSq AuXeLZTUHJNaFPCeWmNoFIzuAH8Oh7CdbCJpCZ0NIu 3UAyLeWD7wdt1GKQXpHGIuBguSVuc3CDtpVM3SoNYqxHA0RJDiYVDHZeGwW8xkc5ZvUECiQLPHVTvsRT 6Gj7UsnOHaOEq+Ib8VWV8aj5JaVYs2EOVeWD6sls8DURtVVlOkW5NakGhmBFUht8trAJIrNU8fsFKfQP S3SIlvRK2opL6vNmXHvCuhYHJlXUSnBm86GoDwMwLi XDU5UVLkTS4uWYwqBL5GWUW3IBhqLGPqFNCwT9jDHhLcTVP4ByNcaWuwJY7BDtTrY3LqonXluKK0FyGx IFINCj4+DUmlknKwAsmEKkZ8ORKox0SeACn1ED5WPIWkZFxhSP1DKOIigB1iBNfmPO7IOkU1LPIzITFK PsXsT76biMYcDGp5H6DwAfUiSCRjNqygEUJbBOxsDq FtZXMgWyBdDQogID4+ID4+QXmoTE1XEUwppjVcMBXyBa8DGEUpHOAnPI4hYTJoHGVpN6B6yJtuGVYNIx TtE3ctuxlfGG6eIKHaL926oHumjuWmJNJtSJLtAi4ODTJuTSZ4BUOohBYnSQNvWYBQVSeuVQ3KvVVyBT L4hJ3aVSeuVHUsOUUvB7uELkQctNpiAK81qJvtktCc bCBdDQo+Pv2DAO0vv3QtTOt9nrUuPIusSIG2CYpvAKBjJKWbJVGyNWA6QFG9PYPMCpElRUSjRNQfURgb OQWrUPOfze4ARPQtLWP3NTZeRaYgBXAwDFIeKNokVRKmPME5HOI1KBCrRDYdFX3ONvPtBUEuYBQeXSdt HHRjCSAhcm0HWYYhKHKfAQImQmYfKPVyLOBfNZlnCB GnFXF7OnIcPDQbDAGeAG4QEhFaRJVsSMu7KzXiBGJeXSIpym8TVTQnOWEeFBYjSRElTYOpCTClWAswIN KtIGAxHXDdWVIjGMBhGX9RJgCwNLEhCOIsMGZbKLXdHCCcaq3QJYQgDDOiFCUnRnUqFNJjOQWvQKnyZC YbCIE8IbY6ADJwMFQlSM2UTeCtBINyUjH4FtfpMAEg WGGsmf9LTJIiRREdYMFwABYyATPqDRLrCChpNMScOQO7XOX9ZGAyNSMfNH9ZFvRrVXOaBwB0MDWfANUp KUGrcf0CZPHvJUNtFCD8ZOTvZVMdRYReNUsjSJWqLPG0TpjhGGCzSBSwDS6CMqWmQSVoQuU0RdldEMKu ZRPlzc1NAQWcGGXsUPxxTKPzBSGqVBFsPMytKYMkEA F2EMI7NJRuAFQvTJ6IEtEkDBDeGeNyGxLqVNHoOMDzxw2EFQBkJSOjSyKyXfKnEMInNOKyYUnqRGJfBF S7YwGrEPAkDIKlJA7SPsJwKZVpXms2RwNjAIOqWKHhks1ADPKjFUCfVkl0KKHkSRBaBMZhIYxrCEDsCL P1DRHbGDMmQWKvGB6JYcKmEPXhLlj1PAYeUIOxRRNm ez1LPQKgWZQtCXIbWOPoJZXsVLZqTIemJWDrERT6PySkOEVyTEIaEL7WCzHoOLIgUMY8IhNsYHDlIWVg me1RAYMdKQH4FMA1YlJpTMRqUXQoSZboXQBzIZNjCpJ3OMRgFQZxEB0XUzJmDCCgNCQ5KDEyBLEuADDy ak3IZXIzPWE1WDP7ZdCrYUDcMCLxKDhcCKQqTEZlAx J3RMTrQVXvWQ1HElBuCXPuHYY5VQExRQKyJHDusj3GCESpZDY2Yli9UPBcWAQsPUEzAMkmLLIgQVTzBR P6LCInRGZdII9CCaZlUZAjRJXhKAUyBZMaHOBxzn7JDXPyLPB0PGG1DSNaJPApSJJcNCkbMEMnYQJ2Jp D6QEGtDYXfPE8RAzGbEQIxDETqFEmuOCUaDGPamw9H RMElJXB7BeW9ORXnUHVpPTCcGUlxDKMlICG8WUJ0MJFcQBAwAC2VBzGcBHkxOEDXBfd6CYrpY0s2MSK1 Lj6NG9Jbd1CpSQHnBZTORGgfTV3usaJaQIGpQl4DU8fYYtcdBNL3QNw2XUX1XFI3FxWiG3PsOsJdVfP9 ClKbKcQoPz6bIEAqYaJxKmG7PWxdTZedNZI8LkT0DZ T8UICrXeCsITKrJnMcLY0YMe6NWjA2QCX8aFWnZl3FBBH1XwkBTzMsHA1JERy= ID Date Data Source [id number] 10/27/2019 11:58:00 AM EST [facility] ([facility]) Name Value Range Interpretation Code Description Data Aby rce(s) Supporting Document(s) Gastrointestinal (GI) Panel Laboratory test result [facility] This Gastrointestinal PCR Panel detects the following [...] NUCLEIC ACID PCR ID Date Data Source [id number] 10/27/2019 11:09:00 AM EST [facility] ([facility]) Name Value Range Interpretation Code Description Data Aby rce(s) Supporting Document(s) Magnesium [Mass/volume] in Serum or Plasma 4.8 mg/dL 1.8-2 .4 Above upper panic limits [facility]) ID Date Data Source [id number] 10/27/2019 11:09:00 AM EST [facility] ([facility]) Name Value Range Interpretation Code Description Data Aby rce(s) Supporting Document(s) Glucose, Fasting 108 mg/dL 70-100 Above high normal [facility] ([facility]) Glomerular Filtration Rate 34.8 Below low normal [facility] ([facility]) <content>Units are mL/min/1.73 m2</content>
<content></content>
<content>Chronic Kidney Disease Staging per NKF:</content>
<content></content>
<content>Stage I & II GFR >=60 Normal to Mildly Decreased</content>
<content>Stage III GFR 30- 59 Moderately Decreased</content>
<content>Stage IV GFR 15-29 Severely Decreased</content>
<content>Stage V GFR <15 Very Little GFR Left</content>
<content>ESRD GFR <15 on [facility]</content>
<content></content> Blood Urea Nitrogen 32 mg/dL 7-18 Above high normal [facility] ([facility]) Creatinine For GFR 1.58 mg/dL 0.55-1.30 Above high normal [facility] Potassium Serum 5.9 meq/L 3.5-5.1 Above high normal [facility] ([facility]) Sodium Level 130 meq/L 136-145 Below low normal [facility] Chloride Level 100 meq/L 98-107 Normal (applies to non-numeric r esults) [facility] ([facility]) Carbon Dioxide Level 22 meq/L 21-32 Normal (applies to non-num eladio results) [facility] ([facility]) Anion Gap 8 meq/L 8-16 Normal (applies to non-numeric resul ts) [facility] Calcium Level 7.0 mg/dL 8.8-10.2 [facility]) ID Date Data Source [id number] 10/27/2019 09:18:00 AM EST [facility] ([facility]) Name Value Range Interpretation Code Description Data Aby rce(s) Supporting Document(s) Laboratory test finding (navigational concept) 128 mg/dL 7 0-105 Above high normal [facility]) Laboratory test finding (navigational concept) 124 meq/L 1 36-145 Below low normal [facility]) Laboratory test finding (navigational concept) 46.0 % 3 8.0-51.0 Normal (applies to non-numeric results) [facility] ([facility]) Laboratory test finding (navigational concept) 4.1 mg/dL 4 .5-5.3 Below low normal [facility] ([facility]) Laboratory test finding (navigational concept) 5.5 meq/L 3 .5-5.1 Above high normal [facility] ([facility]) Laboratory test finding (navigational concept) 19.0 MM/L 2 3.0-27.0 Below low normal [facility] ([facility]) Laboratory test finding (navigational concept) 98 meq/L 9 8-109 Normal (applies to non-numeric results) [facility] ([facility]) Laboratory test finding (navigational concept) 33 mg/dL 8-26 Above high normal [facility] ([facility]) Laboratory test finding (navigational concept) 1.7 mg/dL 0 .6-1.3 Above high normal [facility] ([facility]) ID Date Data Source [id number] 10/27/2019 09:16:00 AM EST [facility] ([facility]) Name Value Range Interpretation Code Description Data Aby rce(s) Supporting Document(s) Glucose, Fasting 123 mg/dL 70-100 Above high normal [facility] ([facility]) Creatinine For GFR 1.74 mg/dL 0.55-1.30 Above high normal [facility] ([facility]) Glomerular Filtration Rate 31.2 Below low normal [facility] ([facility]) <content>Units are mL/min/1.73 m2</content>
<content></content>
<content>Chronic Kidney Disease Staging per NK[facility]:</content>
<content></content>
<content>Stage I & II GFR >=60 Normal to Mildly Decreased</content>
<content>Stage III GFR 30- 59 Moderately Decreased</content>
<content>Stage IV GFR 15-29 Severely Decreased</content>
<content>Stage V GFR <15 Very Little GFR Left</content>
<content>ESRD GFR <15 on [facility] [employer] [facility] [facility]</content>
<content></content> Blood Urea Nitrogen 37 mg/dL 7-18 Above high normal [facility] ([facility]) Potassium Serum 5.4 meq/L 3.5-5.1 Above high normal ME DENT ([facility]) This specimen has an elevated potassium level but there is NO visible hemolysis noted. Sodium Level 125 meq/L 136-145 Below low normal [facility] ([facility]) Chloride Level 96 meq/L 98-107 Below low normal MEDE NT ([facility]) Calcium Level 8.6 mg/dL 8.8-10.2 Below low normal MEDEN T ([facility]) Carbon Dioxide Level 18 meq/L 21-32 Below low normal [facility] ([facility]) Anion Gap 11 meq/L 8-16 Normal (applies to non-numeric resul ts) [facility] ([facility]) ID Date Data Source [id number] 10/27/2019 09:16:00 AM EST [facility] ([facility]) Name Value Range Interpretation Code Description Data Aby rce(s) Supporting Document(s) Magnesium [Mass/volume] in Serum or Plasma 5.5 mg/dL 1.8-2 .4 Above upper panic limits [facility] Lipase [Enzymatic activity/volume] in Serum or Plasma 31 U/L 73-393 Below low normal [facility]) Lactate [Mass/volume] in Serum or Plasma 2.6 mmol/L 0.4-2.0 Above upper panic limits [facility] ([facility]) Y/N query for Sepsis Lactate Rule: Y ID Date Data Source [id number] 10/27/2019 09:16:00 AM EST [facility] ([facility]) Name Value Range Interpretation Code Description Data Aby rce(s) Supporting Document(s) Alt/SGPT 22 U/L 12-78 Normal (applies to non-numeric resul ts) [facility] ([facility]) Ast/Sgot 34 U/L 7-37 Normal (applies to non-numeric resul ts) [facility] ([facility]) Alkaline Phosphatase 72 U/L 45-117 Normal (applies to non-num eladio results) [facility]) Bilirubin,Total 0.7 mg/dL 0.2-1.0 Normal (applies to non-numeric results) [facility] ([facility]) Total Protein 7.2 GM/DL 6.4-8.2 Normal (applies to non-numeric re sults) [facility] ([facility]) Albumin 3.4 GM/DL 3.2-5.2 Normal (applies to non-numeric resul ts) [facility] ([facility]) Bilirubin,Direct 0.2 mg/dL 0.0-0.2 Normal (applies to non-numeric results) [facility] ([facility]) Albumin/Globulin Ratio 0.89 1.00-1.93 Below low normal [facility] ([facility]) ID Date Data Source [id number] 10/27/2019 09:16:00 AM EST [facility] ([facility]) Name Value Range Interpretation Code Description Data Aby rce(s) Supporting Document(s) White Blood Count 25.0 10 4.0-10.0 Above high normal [facility] ([facility]) Red Blood Count 4.93 10 4.00-5.40 Normal (applies to non-numeric results) [facility] ([facility]) Mean Corpuscular Volume 88.6 fl 80.0-96.0 Normal ( applies to non-numeric results) [facility] ([facility]) Hemoglobin 14.5 g/dL 12.0-15.5 Normal (applies to non-numeric resul ts) [facility] ([facility]) Hematocrit 43.7 % 36.0-47.0 Normal (applies to non-numeric resul ts) [facility] ([facility]) Mean Corpuscular HGB Conc 33.2 g/dL 32.0-36.5 Normal (applies to non-numeric results) [facility] ([facility]) Mean Corpuscular Hemoglobin 29.4 pg 27.0-33.0 Norm al (applies to non-numeric results) [facility] ([facility]) Platelet Count, Automated 294 10 150-450 Normal (applies to non-numeric results) [facility] ([facility]) Red Cell Distribution Width 19.0 % 11.5-14.5 Above high normal [facility] ([facility]) Neutrophils % 91.8 % 36.0-66.0 Above high normal [facility] NT ([facility]) Eos % 0.0 % 0.0-3.0 Normal (applies to non-numeric resul ts) [facility] ([facility]) Island % 2.8 % 0.0-5.0 Normal (applies to non-numeric resul ts) [facility] ([facility]) Lymph % 4.8 % 24.0-44.0 Below low normal [facility] ( [facility]) Immature Granulocyte % 0.4 % 0-3.0 Normal (applies to non-n umeric results) [facility] ([facility]) Baso % 0.2 % 0.0-1.0 Normal (applies to non-numeric resul ts) [facility] ([facility]) Neutrophils # 22.9 10 1.5-8.5 Above high normal [facility] NT ([facility]) Nucleated Red Blood Cell % 0.1 % 0-0 Above high normal [facility] ([facility]) Lymph # 1.2 10 1.5-5.0 Below low normal [facility] ( [facility]) Island # 0.7 10 0.0-0.8 Normal (applies to non-numeric resul ts) [facility] ([facility]) Baso # 0.1 10 0.0-0.2 Normal (applies to non-numeric resul ts) [facility] ([facility]) Eos # 0.0 10 0.0-0.5 Normal (applies to non-numeric resul ts) [facility] ([facility]) ID Date Data Source [id number] 08/10/2019 09:45:00 AM EST [facility] Name Value Range Interpretation Code Description Data Aby rce(s) Supporting Document(s) [facility] QKVHBe0wVvKDAcKwGCGeNkiEHUocMGizZTRmA4F5MDetSn2KDUhgvoRuUYIyZf8+LRPvST5uqr8aYYUj gMy 5xBNLcQyzjL9VbTCJtg01RMJRkLNeDJwQpGVqkOuQcTZNuEKE3OMW4UdVmTjdaLE3iAZZ4KHZgMCpaEG L6XNFzXlRuCZKfYQ0bTLceYDxlEt0FYO4po5NlJSOjLPIgGusZWBnxZKmzVGQpZTXmZAFyB948kgZsVQ 5GhHBsCRo3KFSsLpQ7AGKeYlE7QFAwYhPiLuOxEJPm C6Dta051ciMcndX7VP5FF3VfQLX6WLn2W1wzZwInZBKqUIQfLP2iQwT0BHLeLs0ApKdeWHBrBBLaSy9E bAf0ORY8OROqCz8+Pj4+Tt3gfxFnCpeOCJQdYP8nif26JT8EmLVsUQ8VXQjhJ90rRZkiAp43JQujFAIp UnZsMWu3Qb4lQwWrg3BuO0NfILq7Q8qNYqtzQ0SaUM tsWT0xPUM0JFToYs3+Aa7qIKHvHO28ABTtJWETW5YqiqQcorExQDa8GJVpBo2+Mr1ovoOaZaoUARGnYN 1kjq86XI7LEY8sbOdoHiEiNPC5M97akNJdJ1rcNpWwL5ScnCgsJPKlQD2eF7TcACvcIFVfPF4kqhDziH 8InPw4TRRhNb5BjCZ0DPRtL97zYQYuCZMEPRFpk1Sa AS4Qs3cotcJyVZGhGY4WZFElV5BAW8OoN5sqhOqsERVcSA3MJFhvhNFdZIm3GI0YkYSkOQEkI86anS1d YP41NQc+HoS7uaVknR5LkRvgd8SKJU631n0X0+KuHh7OaVcCGLBIBDlwRJNM1G4JaMrBAUDLi8Myc6ge 7gwafAYd/OS/7094qB4uwxv3cq4gdim43w0H79bn60 [file] oI25Y60YlWk1he/sz66HYKH2wcPIO0c+CLIENT DELIVERY MANAGER/abVXE5Aozdl80m+wLVjN1e1MGGWirMW9Jml68htWy0ZZk [file] 1uEaQur+vp emerging media/29LMNsNo+qjAuKz0Ew5oA8p/g5XNSaz [file] RYNVNr8qV9jUuvGLbWGXtdMp5emH7Rfx/towel rolling machine operator+70oxV K/EBw1KdpLRpxrCvxGKwEEntQveJskoXFERLydZcJvw2q+kiZXBTwLYI7AB7LIulvFBHBDG6vEDOQoEf ndcebmXO+HUFCuglqmlNUOdssvRhfpSf8B2JMt3QKJzojWQWjZypUf+cE6ymN41IYGSys8LaB74WkJ1N Yo3Zm/SXBX0P0Vr4SYcwxkEjYKDigXhrPUfJ48gABM SxvA2/2b5dFhjMg1q5JQRb5YZdbESxdF18r+ZVkLGnBPp8Oduc22DtlH57uvKR7hffZby72C2QMg7XFv JkuvT/dEGByPMoljWRXakHO0FuA92WDrtvbvEbMfc3H/7KzaD68VOslMO7BY6yDxKoEkPeAQ3HX2v7l5 s07sHiypVkRgzWiNGw8YW2hvGQUm4WnbeGsIIm+LGW 7jrOkvmv1jTyeOGkjHUbehlNFiTd7LPURL3YlE+6U5nkHX+ANImI9IMKkiLA2CLjFuKt+dI7HSem0Dun 2SWDu3rLK0IZR8JCvgppQPltD6KI+3w8vlsSqHnGS96IabQmMY6T6Aq3T3qTYwEILAcav8sKfx+RpsYi Tayl03Jo91vNcxmbu5YSmYoAhLx3r5hM0L2YdsNnWW nZ5zgNb5v0CCuxYL3Dahv8KVyZtvV02nCUHxdDlDyQkNPB1hqtVhf4ggxVOyk3UVWO31SuPSOt7Rqf4H fryyX4z3m//PFbRkg/yWU5enAE7f/Lkx+cwg5vB5covuhF4xRZ1hda6QO8ugZWPZ78Cb6v6nUkxkQQoe YdIU4ytxbv9mpf4bxxG7R1xvfCT/v0RUwtsRgY5Zef YsCZ8YgebvLZFWibbUSh5jPul4HPWtOsjQh71rsovhE1r8J1GVqkC+c3c75XJmG/ZkQFTspOY8OTyt5q DGE4FLmLMsyveorVFx+WOLxZ65Bhr9VEvp/2PO8WZ9Kt3yjLIx4bgq3aT5jZRniokpdprc/SwVSg6pBM F4rpOMnAaqK5iK4quoWrDQD4VLCbsiZHs4sYDKw34Q ZRcYQRhgGZNUdaBQCWA5qAtIq6iqeHNJg83u/A96+H/xw3Mogo5RfKE8k8DDjFk+Om6xyBWQVXgYde5h /lBjwHfSY7saL1Hce/Ew6QThq3/LA1RLd6KGyoxore3vZgw/GPNmTi//JrjQFdG9DGK82yn3n13hUTZ3 dkoG7mTCns/qEyquYE/FANdGPzT+Nrql6TDpxGeI7A kkYdH/5tZiDk2UMah2u8Ua0FYQ2ij6wfFHL29TxX/HJozZZSrBFHlPgdE93eY/z2gX+z6KDKBvSKjZc2 fJLoNupWdlVwzu3DIyDKRFdAckqY0Q2CZU1yyvN2hhMZ+ZnmjMdWVjwu01uemWiEfh63M6LMID6cLGZO +08mor31nfzSt0tQdbZzY1d/+tm/txf/fwZK8+utP3 75ms1pJ6oGP1vOakRqCd3tyd3MrchCSSTNyLsJZ3W0swP1AHCq+iIsmeYN+kQiT1rFdMhCUzr9FpMVuB kPp5BTLfg8jHydsaeRvbb/ECrOnpmURjhfs3mPJJpHoFH/l/76MEjm7vfAkkszBjhxp7jY7LkO924EWE Q4ibd1mAiWIGeRTRLhy/OEPpNqRhFDW4O6dpkX/hand embroiderer [file] L0efa0shTxgkERzx4CXpio999Sch9QphvvkhtuA3X1HDeDK3NIpbDE2/Python Java Developer/xhJFOeCkJI9y+KapCnCbN [file] comparative sociology professor+jwAfNbT8rX/T71RbjKQMINHWeHtnRDw+IYbunnLEGcInQU+hu7LBnyVDi5G649ni6HF0/pjZtUou1 [file] j5BZYVnm1Zulxf9l0L2M/gD+walton+y+opjB4TcrW9jGzmoSL9CKZAi77eZ7l2+CW8RAuDctV5U7Zj4i+8h LhGg0TLrr9sxaNI8duDqi/+L5/5ISb9Bod2YO/3pap WFt2LYSQNj8418ZTrJ0RnsAoFokq4lJP1mB1wVoYpKQhe3mD5Eia8hcude1VYMT3d0NBI+filTe+4HIu W0q3Y4INVf6YSy51le3PuqmwtOSXqX7fwra9qTxM1meXKd1ppK2SmHLAF/wmeaWfXwwBC4ZzWgpKiDPS +mLBR2wi5EVC9fn0OnETRNL3mHH2Q/++r4py9YugSC ZV4Vu0ZPQvI+6lx1khijCeWTMMpTDjnTAPdkrv6zkcInKe2dMQKZdJYiVS6afthdtci53FcRlD/erTp5 8dqWUe1cWSkAGDc8jYkDgGhTOa13XAhyTqTUPmaRw6KZWQP8HKtelWFOybFaELcbr+qVSf/o8vgpBEC/ HwIrW6TOBQ7eos0Vr014tg8tC+PYaLdrXEW2gOSwk9 hznCzNwEfSiQbb07ga8cwDkqUA0GQzepEqYDutuK9gIf2EhvoGBMOycPHkk3Q4QSneXcds/1MhGw+p6E cJ2oQMoeAfgRcuOumG+pqP0rRU/RYOoIcO5ladmeDYTSrVmGPlike6OvivU7BrARlJHmj7+F5SBQzI7p x6Se49WQ7LXlfew3AsLdmLV3mU5Zqrl+ngunRV6oqq 9EbzQz8sGJ+r6xoAiBIMj//x4u+m6d8Pe+Mm9p1yreACtbhRSqDzrl05a/N7euAR625EdRo1UnA0vp3R Y1nOHc5HVMCd8oeYEQ7qQnq7aSR4Ooyb8xuSUtUL5fkg5PbgnAnv5SCYqP/Px0C82vSciY66uFq0bSb3 DQjAuWMKkeypUYER0as5zBslb/Es4e3w8/ZitH6iOq f7v2TJIBvS0+WATER PUMPER+t7z/e2/D6dFGx3rti5FAt2JC2i4fRmCxcPcsl5c0Biwz4xhNKc1DE0HOFfVQ5cMK [file] F5eUUir556xnKhmMAs3wooV++zqhmk06ch0neupH2i9jOmgdOq35wFf+De Santiago/vVkg8wCv1KUcGEFFHmJp [file] rFHXE09oZl0tougKeGfGOHMONR2TdTHVfwEWQKFGbs e5d8NnI/wembkAgxmFTZuT1F+4ZFoGXO/4DHMNLH2fSubOuLLKHHQ63IQQHjAYu5RLwuMe9xf7ubW0Hd ui/dR79T3NbG/RA+SYdy4WCoHx5eVIGNneEEtPUXyyipAZijRJxQS4icGOt4SZ804iXvi+kycKm8dAIE bhU5O4ktGyp7T+nCgrmiLc8OcRVwrjG2dCmCT0Wd4V /G2zaiMfqT/sCJq7g9MgkbJ1VNwMIjMOKbfnGtC58hZMNfuiio2Mo4zH+n9s8gsYzfnwkGe90sTHHsAr OHZU7d+GzkzZHUtqQXL9/Q/Vv+oeJZCNMD7yxH8v1DsBsbmt+6lIVbnaUmLXccRyG7Fz1xduaKB+bNmN GjK6kguAEM1tmg7+G+QnsCjH+5kVat7T77Blx [file] lV5zBvh33U/+BH0/ZsB8gEA2WSUgG68vt6ht1rH2H5yv1xvYfyNRoD1obWSDqrQYEQ4z4LY6XSvu+[place] BAIV3e2qEqTmaC6D9BiFOQGl30uI3bUGUhZW32SXmNMf3BwErdsPeS+oZdd0aEr/qC8bfK3k2hF6n7c3 vp emerging media+8tD6rtX70iEt73J6RSdBS7Q8e+0UvYKmD1BhV+Y [file] Rg== ID Date Data Source [id number] 07/30/2019 03:24:00 PM EST [facility] ([facility]) Name Value Range Interpretation Code Description Data [facility] Document(s) Respiratory Panel This respiratory <SEE NOTE> [facility] ([facility]) This respiratory PCR panel detects Influ nj A H1, H3 and 2009 H1 viruses, Influenza B virus, Resp iratory syncytial virus, Human metapneumovirus, Parainfluenza virus 1, 2, 3 and 4, Adenovirus, Rhinovirus/Enterovirus, Coronavirus HKU1, NL63, OC43 and 229E, Bordetella pertussis, Mycoplasma pneumoniae and Chlamydia pneumoniae. NEGATIVE by MULTIPLEXED NUCLEIC ACID PCR ID Date Data Source [id number] 07/30/2019 03:24:00 PM EST [facility] ([facility]) Name Value Range Interpretation Code Description Data Aby rce(s) Supporting Document(s) Natriuretic peptide.B prohormone N-Terminal [Mass/volu me] in Serum or Plasma 200 pg/mL Above high normal [facility] ([facility]) ID Date Data Source [id number] 07/30/2019 03:24:00 PM EST [facility] ([facility]) Name Value Range Interpretation Code Description Data [facility] Supporting Document(s) Glucose, Fasting 110 mg/dL 70-100 Above high normal [facility] Glomerular Filtration Rate > 60.0 Normal (applies to n on-numeric results) [facility] ([facility]) <content>Units are mL/min/1.73 m2</content>
<content></content>
<content>Chronic Kidney Disease Staging per NKF:</content>
<content></content>
<content>Stage I & II GFR >=60 Normal to Mildly Decreased</content>
<content>Stage III GFR 30- 59 Moderately Decreased</content>
<content>Stage IV GFR 15-29 Severely Decreased</content>
<content>Stage V GFR <15 Very Little GFR Left</content>
<content>ESRD GFR <15 on [employer] [employer]AF[employer]</content>
<content></content> Blood Urea Nitrogen 12 mg/dL 7-18 Normal (applies to non-nume mike results) [facility] Creatinine For GFR 0.94 mg/dL 0.55-1.30 Normal (applies to non -numeric results) [facility] ([facility]) Sodium Level 133 meq/L 136-145 Below low normal [facility] Potassium Serum 4.2 meq/L 3.5-5.1 Normal (applies to non-numeric results) [facility] ([facility]) Chloride Level 100 meq/L 98-107 Normal (applies to non-numeric r esults) [facility] ([facility]) Anion Gap 8 meq/L 8-16 Normal (applies to non-numeric resul ts) [facility] Carbon Dioxide Level 25 meq/L 21-32 Normal (applies to non-num eladio results) [facility] ([facility]) Alt/SGPT 22 U/L 12-78 Normal (applies to non-numeric resul ts) [facility] ([facility]) Calcium Level 8.7 mg/dL 8.8-10.2 Below low normal [facility] T ([facility]) Ast/Sgot 18 U/L 7-37 Normal (applies to non-numeric resul ts) [facility] Bilirubin,Total 0.3 mg/dL 0.2-1.0 Normal (applies to non-numeric results) [facility] ([facility]) Total Protein 7.0 GM/DL 6.4-8.2 Normal (applies to non-numeric re sults) [facility] Alkaline Phosphatase 94 U/L 45-117 Normal (applies to non-num eladio results) [facility] ([facility]) Albumin 3.2 GM/DL 3.2-5.2 Normal (applies to non-numeric resul ts) [facility] Albumin/Globulin Ratio 0.84 1.00-1.93 Below low normal [facility] ([facility]) ID Date Data Source [id number] 07/30/2019 03:24:00 PM EST [facility] ([facility]) Name Value Range Interpretation Code Description Data Aby rce(s) Supporting Document(s) Red Blood Count 3.70 10 4.00-5.40 Below low normal [facility] ([facility]) White Blood Count 8.1 10 4.0-10.0 Normal (applies to non-numeri c results) [facility] ([facility]) Hemoglobin 11.2 g/dL 12.0-15.5 Below low normal [facility] ( [facility]) Mean Corpuscular Hemoglobin 30.3 pg 27.0-33.0 Norm al (applies to non-numeric results) [facility] ([facility]) Hematocrit 36.2 % 36.0-47.0 Normal (applies to non-numeric resul ts) [facility] ([facility]) Mean Corpuscular Volume 97.8 fl 80.0-96.0 Above high normal [facility] ([facility]) Mean Corpuscular HGB Conc 30.9 g/dL 32.0-36.5 Below low normal [facility] ([facility]) Red Cell Distribution Width 15.0 % 11.5-14.5 Above high normal [facility] ([facility]) Platelet Count, Automated 204 10 150-450 Normal (applies to non-numeric results) [facility] ([facility]) Nucleated Red Blood Cell % 0.0 % 0-0 Normal (applies to n on-numeric results) [facility] ([facility]) ID Date Data Source [id number] 07/23/2019 12:00:00 AM EST [facility] Patient Name: DUY RODRIGUEZ [id number] Date of : 1955 1 Date of Exam:07/23/2019CHARISSA Hightower [id number]#: Fax: [phone] EXAM: MAMMO SCREENING WITH CADCLINICAL [...] completed Patient is a former smoker [facility] ([facility]) Smoking 06/05/2020 12:00:00 AM EDT Patient is a former smoker completed Patient is a former smoker [facility] ([facility]) Alcohol intake 02/18/2020 12:00:00 AM EDT Current non-d breanna of alcohol (finding) completed Current non-drinker of alcohol (finding) [facility] Cigarette pack-years 02/18/2020 12:00:00 AM EDT [facility] Cigarettes smoked current (pack per day) - Reported 02/18/20 12:00:00 AM EDT [facility] completed [facility] Smoking 02/18/2020 12:00:00 AM EDT Former smoker completed Former smoker [facility] Alcohol intake 11/05/2019 12:00:00 AM EDT Current non-d breanna of alcohol (finding) completed Current non-drinker of alcohol (finding) [facility] Cigarette pack-years 11/05/2019 12:00:00 AM EDT [facility] Cigarettes smoked current (pack per day) - Reported 11/05/19 12:00:00 AM EDT [facility] completed [facility] Smoking 11/05/2019 12:00:00 AM EDT Former smoker completed Former smoker [facility] Vital Signs ID Date Data Source UNK Name Value Range Interpretation Code Description Data Source(s) Body temperature 96.2 [degF] 96.2 [degF] [facility] ([facility]) Body surface area Derived from formula 1.53 m2 1.53 m2 [facility] ([facility] ) Body weight 57.154 kg 57.154 kg [facility] ([facility]) [place] body weight 100 [lb_av] 100 [lb_av] [facility] T ([facility]) Body mass index (BMI) [Ratio] 24.6 kg/m2 24.6 k g/m2 [facility] ([facility]) Body weight 126.00 [lb_av] 126.00 [lb_av] LEIGH T ([facility]) Stated Body height 60 [in_i] 60 [in_i] [facility] ([facility]) 5'0" Diastolic blood pressure 72 mm[Hg] 72 mm[Hg] [facility] ([facility]) Systolic blood pressure 120 mm[Hg] 120 mm[Hg] M L[facility]X ([facility]) [place] body weight 100 [lb_av] 100 [lb_av] [facility] Oxygen saturation in Arterial blood by Pulse oximetry 99 % 99 % [facility] ([facility]) Body temperature 98.7 [degF] 98.7 [degF] [facility] ([facility]) Respiratory rate 20 /min 20 /min [facility] ( [facility]) Heart rate 87 /min 87 /min [facility] ([facility]) Body mass index (BMI) [Ratio] 24.6 kg/m2 24.6 k g/m2 [facility] ([facility]) Body weight 127.00 [lb_av] 127.00 [lb_av] [facility] Body height 60.2 [in_i] 60.2 [in_i] [facility] ([facility]) 5'0.20" Diastolic blood pressure 70 mm[Hg] 70 mm[Hg] [facility] ([facility]) Systolic blood pressure 136 mm[Hg] 136 mm[Hg] [facility] Diastolic blood pressure--sitting 81 mm[Hg] 81 mm[Hg] [facility] CBP, adult cuff/LA Systolic blood pressure--sitting 152 mm[Hg] 152 mm[Hg] [facility] ([facility]) CBP, adult cuff/LA Heart rate 87 /min 87 /min [facility] Body mass index (BMI) [Ratio] 25.4 kg/m2 25.4 k g/m2 [facility] ([facility]) Body height 60 [in_i] 60 [in_i] [facility] 5'0" Body weight 130.00 [lb_av] 130.00 [lb_av] [facility] T ([facility]) [place] body weight 100 [lb_av] 100 [lb_av] [facility] ([facility]) Oxygen saturation in Arterial blood by Pulse oximetry 96 % 96 % [facility] ([facility]) Body temperature 97.4 [degF] 97.4 [degF] [facility] ([facility]) Respiratory rate 18 /min 18 /min [facility] ( [facility]) Heart rate 85 /min 85 /min [facility] ([facility]) Body height 60.2 [in_i] 60.2 [in_i] [facility] ([facility]) 5'0.20" Diastolic blood pressure 70 mm[Hg] 70 mm[Hg] [facility] ([facility]) Systolic blood pressure 124 mm[Hg] 124 mm[Hg] M EDENT ([facility]) [place] body weight 100 [lb_av] 100 [lb_av] MEDEN T ([facility]) Oxygen saturation in Arterial blood by Pulse oximetry 93 % 93 % [facility] ([facility]) Body temperature 97.5 [degF] 97.5 [degF] [facility] ([facility]) Respiratory rate 18 /min 18 /min [facility] ( [facility]) Heart rate 91 /min 91 /min [facility] ([facility]) Body mass index (BMI) [Ratio] 25.5 kg/m2 25.5 k g/m2 [facility] ([facility]) Body weight 131.50 [lb_av] 131.50 [lb_av] MEDEN T ([facility]) Body height 60.2 [in_i] 60.2 [in_i] MEDENT ([facility]) 5'0.20" Diastolic blood pressure 76 mm[Hg] 76 mm[Hg] [facility] ([facility]) Systolic blood pressure 140 mm[Hg] 140 mm[Hg] [facility] Body mass index (BMI) [Ratio] 19.0 kg/m2 19.0 k g/m2 MEDENT ([facility]) Body weight 131.38 [lb_av] 131.38 [lb_av] MEDEN T ([facility]) Body height 69.75 [in_i] 69.75 [in_i] MEDENT ([facility]) 5'9.75" Body temperature 97.1 [degF] 97.1 [degF] MEDENT ([facility]) Body surface area Derived from formula 1.56 m2 1.56 m2 [facility] Body weight 59.422 kg 59.422 kg [facility] ([facility], ) [place] body weight 100 [lb_av] 100 [lb_av] MEDEN T ([facility]) Body mass index (BMI) [Ratio] 25.6 kg/m2 25.6 k g/m2 [facility] ([facility], ) Body weight 131.00 [lb_av] 131.00 [lb_av] [facility] Body height 60 [in_i] 60 [in_i] [facility] ([facility]) 5'0" Oxygen saturation in Arterial blood by Pulse oximetry 91 % 91 % [facility] ([facility], ) 89 ra Heart rate 102 /min 102 /min [facility] ([facility], ) Diastolic blood pressure 80 mm[Hg] 80 mm[Hg] [facility] ([facility], ) Systolic blood pressure 160 mm[Hg] 160 mm[Hg] M [facility] ([facility], ) Body weight 60.896 kg 60.896 kg [facility] ([facility]) [place] body weight 100 [lb_av] 100 [lb_av] MEDEN T ([facility]) Body mass index (BMI) [Ratio] 26.2 kg/m2 26.2 k g/m2 [facility] ([facility], ) Body weight 134.25 [lb_av] 134.25 [lb_av] MED[facility] T ([facility]) Body height 60 [in_i] 60 [in_i] [facility] [facility]) 5'0" Diastolic blood pressure 60 mm[Hg] 60 mm[Hg] [facility] ([facility]) Systolic blood pressure 135 mm[Hg] 135 mm[Hg] [facility] [place] body weight 100 [lb_av] 100 [lb_av] [facility] ([facility]) Oxygen saturation in Arterial blood by Pulse oximetry 99 % 99 % [facility] ([facility]) Body temperature 98.3 [degF] 98.3 [degF] [facility] ([facility]) Respiratory rate 16 /min 16 /min [facility] ( [facility]) Heart rate 97 /min 97 /min [facility] ([facility]) Body mass index (BMI) [Ratio] 25.4 kg/m2 25.4 k g/m2 [facility] Body weight 131.00 [lb_av] 131.00 [lb_av] [facility] ([facility]) Body height 60.2 [in_i] 60.2 [in_i] [facility]) 5'0.20" Diastolic blood pressure 80 mm[Hg] 80 mm[Hg] [facility] Systolic blood pressure 138 mm[Hg] 138 mm[Hg] [facility] ([facility]) [place] body weight 100 [lb_av] 100 [lb_av] [facility] ([facility]) Oxygen saturation in Arterial blood by Pulse oximetry 99 % 99 % [facility] Body temperature 97.8 [degF] 97.8 [degF] [facility] Respiratory rate 16 /min 16 /min [facility] ( [facility]) Heart rate 87 /min 87 /min [facility] Body height 60.2 [in_i] 60.2 [in_i] [facility] ([facility]) 5'0.20" Diastolic blood pressure 80 mm[Hg] 80 mm[Hg] [facility] ([facility]) Systolic blood pressure 122 mm[Hg] 122 mm[Hg] [facility] Body weight 59.875 kg 59.875 kg [facility] ([facility]) [place] body weight 100 [lb_av] 100 [lb_av] [facility] ([facility]) Body mass index (BMI) [Ratio] 25.8 kg/m2 25.8 k g/m2 [facility] ([facility]) Body weight 132.00 [lb_av] 132.00 [lb_av] [facility] Body height 60 [in_i] 60 [in_i] [facility] 5'0" Diastolic blood pressure 60 mm[Hg] 60 mm[Hg] [facility] ([facility]) Systolic blood pressure 120 mm[Hg] 120 mm[Hg] [facility] ([facility]) Diastolic blood pressure--sitting 74 mm[Hg] 74 mm[Hg] [facility] ([facility]) CBP, adult cuff/Ra Systolic blood pressure--sitting 125 mm[Hg] 125 mm[Hg] [facility] CBP, adult cuff/Ra Heart rate 90 /min 90 /min [facility] Body mass index (BMI) [Ratio] 24.8 kg/m2 24.8 k g/m2 [facility]) Body height 60 [in_i] 60 [in_i] [facility] ([facility] 5'0" Body weight 127.00 [lb_av] 127.00 [lb_av] [facility] ([facility]) [place] body weight 100 [lb_av] 100 [lb_av] [facility] ([facility]) Oxygen saturation in Arterial blood by Pulse oximetry 96 % 96 % [facility] ([facility]) Body temperature 98.5 [degF] 98.5 [degF] [facility] ([facility]) Respiratory rate 20 /min 20 /min [facility] ( [facility]) Heart rate 99 /min 99 /min [facility] ([facility]) Body mass index (BMI) [Ratio] 23.1 kg/m2 23.1 k g/m2 [facility] ([facility]) Body weight 119.00 [lb_av] 119.00 [lb_av] [facility] ([facility]) Body height 60.2 [in_i] 60.2 [in_i] [facility] ([facility]) 5'0.20" Diastolic blood pressure 76 mm[Hg] 76 mm[Hg] [facility] ([facility]) Systolic blood pressure 136 mm[Hg] 136 mm[Hg] M [facility] ([facility]) [place] body weight 100 [lb_av] 100 [lb_av] [facility] ([facility]) Oxygen saturation in Arterial blood by Pulse oximetry 97 % 97 % [facility] ([facility]) Body temperature 98.5 [degF] 98.5 [degF] [facility] ([facility]) Respiratory rate 20 /min 20 /min [facility] ( [facility]) Heart rate 82 /min 82 /min [facility] Body mass index (BMI) [Ratio] 26.4 kg/m2 26.4 k g/m2 [facility] ([facility]) Body weight 136.12 [lb_av] 136.12 [lb_av] [facility] ([facility]) Body height 60.2 [in_i] 60.2 [in_i] [facility] ([facility]) 5'0.20" Diastolic blood pressure 80 mm[Hg] 80 mm[Hg] [facility] ([facility]) Systolic blood pressure 118 mm[Hg] 118 mm[Hg] M [facility] ([facility]) Body mass index (BMI) [Ratio] 26.6 kg/m2 26.6 k g/m2 [facility] ([facility]) Body weight 137.00 [lb_av] 137.00 [lb_av] [facility] ([facility]) Body height 60.2 [in_i] 60.2 [in_i] [facility] ([facility]) 5'0.20" Oxygen saturation in Arterial blood by Pulse oximetry 93 % 93 % [facility] Body temperature 99.0 [degF] 99.0 [degF] [facility] ([facility]) Heart rate 81 /min 81 /min [facility] ([facility]) Body mass index (BMI) [Ratio] 29.1 kg/m2 29.1 k g/m2 [facility] ([facility]) Body weight 150.00 [lb_av] 150.00 [lb_av] [facility] ([facility]) Body height 60.2 [in_i] 60.2 [in_i] [facility] ([facility]) 5'0.20" Diastolic blood pressure 72 mm[Hg] 72 mm[Hg] [facility] ([facility]) Systolic blood pressure 118 mm[Hg] 118 mm[Hg] M [facility] ([facility]) Respiratory rate 20 /min 20 /min [facility] ( [facility]) Systolic blood pressure 132 mm[Hg] 132 mm[Hg] M [facility] ([facility]) Oxygen saturation in Arterial blood by Pulse oximetry 97 % 97 % [facility] Body temperature 99.2 [degF] 99.2 [degF] [facility] ([facility]) Respiratory rate 97 /min 97 /min [facility] ( [facility]) Heart rate 98 /min 98 /min [facility] ([facility]) Body mass index (BMI) [Ratio] 27.4 kg/m2 27.4 k g/m2 [facility] ([facility]) Body weight 141.38 [lb_av] 141.38 [lb_av] [facility] ([facility]) Body height 60.2 [in_i] 60.2 [in_i] [facility] ([facility]) 5'0.20" Diastolic blood pressure 74 mm[Hg] 74 mm[Hg] [facility] ([facility]) Oxygen saturation in Arterial blood by Pulse oximetry 95 % 95 % [facility] ([facility]) Body temperature 99.0 [degF] 99.0 [degF] [facility]) Respiratory rate 18 /min 18 /min [facility] ( [facility]) Heart rate 89 /min 89 /min [facility] ([facility]) Body mass index (BMI) [Ratio] 28.2 kg/m2 28.2 k g/m2 [facility] ([facility]) Body weight 145.38 [lb_av] 145.38 [lb_av] [facility] ([facility]) Body height 60.2 [in_i] 60.2 [in_i] [facility]) 5'0.20" Diastolic blood pressure 74 mm[Hg] 74 mm[Hg] [facility] ([facility]) Systolic blood pressure 130 mm[Hg] 130 mm[Hg] [facility] Body mass index (BMI) [Ratio] 28.1 kg/m2 28.1 k g/m2 [facility] ([facility] ) Body weight 144.00 [lb_av] 144.00 [lb_av] [facility] ([facility], ) Body height 60 [in_i] 60 [in_i] [facility] ([facility]) 5'0" Oxygen saturation in Arterial blood by Pulse oximetry 97 % 97 % [facility] ([facility], ) Room Air Heart rate 98 /min 98 /min [facility] ([facility], ) Diastolic blood pressure 70 mm[Hg] 70 mm[Hg] [facility] ([facility]) Systolic blood pressure 122 mm[Hg] 122 mm[Hg] M [facility] ([facility], ) Body weight 65.318 kg 65.318 kg [facility] ([facility]) [place] body weight 100 [lb_av] 100 [lb_av] [facility] ([facility], ) Diastolic blood pressure--sitting 80 mm[Hg] 80 mm[Hg] [facility] ([facility]) CBP adult cuff, Ra Systolic blood pressure--sitting 132 mm[Hg] 132 mm[Hg] [facility] ([facility]) CBP adult cuff, Ra Heart rate 79 /min 79 /min [facility] ([facility]) Body mass index (BMI) [Ratio] 28.3 kg/m2 28.3 k g/m2 [facility] ([facility]) Body height 60 [in_i] 60 [in_i] [facility] ([facility]) 5'0" Body weight 145.00 [lb_av] 145.00 [lb_av] [facility] ([facility]) Body weight 65.318 kg 65.318 kg [facility] ([facility]) Body mass index (BMI) [Ratio] 28.1 kg/m2 28.1 k g/m2 [facility] ([facility]) Body weight 144.00 [lb_av] 144.00 [lb_av] [facility] ([facility]) Body height 60 [in_i] 60 [in_i] [facility] ([facility]) 5'0" Oxygen saturation in Arterial blood by Pulse oximetry 97 % 97 % [facility] ([facility]) Room Air Heart rate 96 /min 96 /min [facility] ([facility]) Diastolic blood pressure 80 mm[Hg] 80 mm[Hg] [facility] ([facility]) Systolic blood pressure 126 mm[Hg] 126 mm[Hg] [facility]) Oxygen saturation in Arterial blood by Pulse oximetry 97 % 97 % [facility] ([facility]) Body temperature 97.4 [degF] 97.4 [degF] [facility] ([facility]) Respiratory rate 18 /min 18 /min [facility]) Heart rate 87 /min 87 /min [facility] ([facility]) Body mass index (BMI) [Ratio] 28.0 kg/m2 28.0 k g/m2 [facility] ([facility]) Body weight 144.50 [lb_av] 144.50 [lb_av] [facility] ([facility]) Body height 60.2 [in_i] 60.2 [in_i] [facility] ([facility]) 5'0.20" Diastolic blood pressure 76 mm[Hg] 76 mm[Hg] [facility] ([facility]) Systolic blood pressure 144 mm[Hg] 144 mm[Hg] [facility]) ID Date Data Source [id number] 06/11/2020 04:54:52 PM [facility] Name Value Range Interpretation Code Description Data Source(s) WEIGHT RECORDED 140 lb 140 lb [facility] Body height Measured 60 in 60 in [facility] WEIGHT RECORDED 140 lb 140 lb [facility] Body height Measured 60 in 60 in [facility] ID Date Data Source [id number] 11/06/2019 09:53:38 AM [facility] Name Value Range Interpretation Code Description Data Source(s) WEIGHT RECORDED 139 lb 139 lb [facility] Body height Measured 60 in 60 in [facility] Patient Treatment Plan of Care Planned Activity Planned Date Details Description Data Source (s) maalox/lidocaine/diphenhydrAMINE 1:1:1 SWISH & SWAL or al suspension 10/23/2019 12:00:00 AM [facility] ospital Folic Acid 1 MG Oral Tablet 06/19/2019 12:00:00 AM [facility] Folic Acid 1 MG Oral Tablet 03/27/2019 12:00:00 AM [facility]
[2020-09-19 03:57] LABS: BASO # 0.1 10^3/uL (0.0-0.2); BASO % 0.7 % (0.0-1.0); EOS # 0.2 10^3/uL (0.0-0.5); EOS % 2.8 % (0.0-3.0); HEMATOCRIT 39.6 % (36.0-47.0); HEMOGLOBIN 12.7 g/dl (12.0-15.5); LYMPH # 1.9 10^3/uL (1.5-5.0); LYMPH % 24.8 % (24.0-44.0); MEAN CORPUSCULAR HEMOGLOBIN 28.6 pg (27.0-33.0); MEAN CORPUSCULAR HGB CONC 32.1 g/dl (32.0-36.5); MEAN CORPUSCULAR VOLUME 89.2 fl (80.0-96.0); MONO # 0.8 10^3/uL (0.0-0.8); MONO % 10.1 % (0.0-5.0); NEUTROPHILS # 4.6 10^3/uL (1.5-8.5); NEUTROPHILS % 61.2 % (36.0-66.0); PLATELET COUNT, AUTOMATED 236 10^3/uL (150-450); RED BLOOD COUNT 4.44 10^6/uL (4.00-5.40); WHITE BLOOD COUNT 7.5 10^3/uL (4.0-10.0)
--- NOTE | 2020-09-19 04:28 | REPVR ---
PROCEDURE INFORMATION: Exam: CT Head Without Contrast Exam date and time: 09/19/2020 3:16 AM Age: 65 years old Clinical indication: Other: Myoclonic jerk TECHNIQUE: Imaging protocol: Computed tomography of the head without contrast. Radiation optimization: All CT scans at this facility use at least one of these dose optimization techniques: automated exposure control; mA and/or kV adjustment per patient size (includes targeted exams where dose is matched to clinical indication); or iterative reconstruction. COMPARISON: CT Head without contrast 09/11/2020 9:01 AM FINDINGS: Brain: Stable bilateral white matter changes. Cerebral ventricles: No ventriculomegaly. Bones/joints: Unremarkable. No acute fracture. Paranasal sinuses: Visualized sinuses are unremarkable. No fluid levels. Mastoid air cells: Visualized mastoid air cells are well aerated. Soft tissues: Unremarkable. IMPRESSION: No significant interval change. Stable bilateral white matter changes. Electronically signed by: Seferino Velez On 09/19/2020 04:28:37 AM
[2020-09-19 04:30] LABS: BLOOD UREA NITROGEN 8 MG/DL (7-18); CALCIUM LEVEL 9.1 MG/DL (8.8-10.2); CARBON DIOXIDE LEVEL 25 MEQ/L (21-32); CHLORIDE LEVEL 107 MEQ/L (98-107); CPK CREATINE PHOSPHOKINASE 88 U/L (26-192); CREATININE FOR GFR 0.87 MG/DL (0.55-1.30); GLOMERULAR FILTRATION RATE > 60.0 (>45); GLUCOSE, FASTING 95 MG/DL (70-100); MAGNESIUM LEVEL 2.1 MG/DL (1.8-2.4); POTASSIUM SERUM 3.7 MEQ/L (3.5-5.1); SODIUM LEVEL 139 MEQ/L (136-145)
[2020-09-19] MEDS ORDERED: VALI5TAB PO (06:44)
== END 2020-09-19 07:52 | disposition home or self-care (01) ==
LOC: M ED 01:20
DX: G25.3 Myoclonus (principal); M79.7 Fibromyalgia; Z88.0 Allergy status to penicillin; Z88.8 Allergy status to other drugs, medicaments and biological substances
CPT/HCPCS: 70450; 80048; 82550; 83735; 85025; 96374; 96375; 99284; J3360

== ENCOUNTER → 2020-10-12 | Outpatient (CLI) | payer MEDICARE, OTHER ==
[~2020-10-12] MED LIST changes: +VALI5TAB PO
== END ==
LOC: M LABSMTC 09:48
PROVIDERS: ATTEND Anesthesiology
DX: Z01.812 Encounter for preprocedural laboratory examination (principal); Z20.822 Contact with and (suspected) exposure to COVID-19

== ENCOUNTER 2020-10-17 11:46 | Day surgery (SDC) | payer MEDICARE, OTHER ==
[~2020-10-17] VITALS: Ht 152.4 cm; Wt 59.9 kg
[~2020-10-17 11:46] MED LIST changes: -AMIT10TA PO; +AMIT10TA7 PO; +LR 1,000 ML IV ONE; +NS 1,000 ML IV SCH; +VANCOMYCIN HCL 1,000 MG, VIAL MATE ADAPTER 1 EACH in D5W 250 ML IV ONE
--- OUTSIDE RECORDS SUMMARY | 2020-10-17 11:58 | CCD | Continuity of Care Document ---
Author Author Mable TILLMAN Organization Unknown Address [address] [place] [address] Phone [phone] Care Team Providers Care Boilermaker Name Role Phone Elizabeth Sarkar D.O. AUTM Tonyaben Allen MASTER POLICE DETECTIVE-R AUTM [phone] [facility] AUTM [facility] AUTM [phone] Chioma Gorman AUTM [phone] Marzena Gonzalez AUTM [phone] [facility] AUTM [phone] Mandeep Scott M.D. AUTM [phone] [facility] AUTM [phone] Problems Active Problems Provider Date Mixed hyperlipidemia [...] Other specified systemic involvement of connective tissue LEVI Franks Onset: 06/29/2019 Paroxysmal atrial fibrillation LEVI Metzger [...] SIG Qnty Indications Ordering Provide r Date Cyclobenzaprine HCL 10mg Tablets take one tablet twice a day by mouth. 60tabs Elizabeth Huitron r, D.O. 10/10/2020 Calcitonin ([place]) 200Unit/Act So lution one spray (alternating nostrils) daily 3.700ml Jatin Parisi.OKristy 10/03/2020 Hydrocodone-Acetaminophen 5-325mg Tablets 1 tablets by mouth every 4 hours (between 10/325 dose) for breakthrough pain 45tabs Jatin Argueta.OKristy 10/03/2020 Cholestyramine 4gm Packet 2 grams twice a day 120units Jatin Argueta.O. 08/27 Prednisone 5mg Tablets one tablet by mouth once a day 90tabs Elizabeth Sarkar D.O. 08/25 Esomeprazole Magnesium 40mg Capsul es DR 1 capsule twice a day by mouth every day 180caps Jatin Parisi.O. 07/03/2020 Wellbutrin XL 150mg Tablets ER 24H R take one tablet by mouth once a day 90tabs Jatin Phan.OKristy 12/18/2019 Singulair 10mg Tablets 1 by mouth every day 90tabs Jatin Argueta.O. 11/29 Albuterol Sulfate HFA 108(90Base) mcg/Act Aerosol 1-2 puffs every 4-6 hours as needed for shortness of breath 25.5 gm J20.9 Jatin Argueta.OKristy 11/29/2019 Pro Comfort Inhaler Spacer Chamber Adult Misc to be used in combination with Mdi 1units Christopher ChaudhryOKristy 11/29/2019 Zolpidem Tartrate 5mg Tablets take one - two tablet by mouth an hour before bedtime as needed. ensure at least 8 hours of sleep istop: [id number] 60tabs Jatin Argueta.O . 11/15/2019 Gabapentin 300mg Capsules 2 in the am 1 in the pm and 2 at bedtime 270caps Jatin Argueta. O. 07/23/2019 Premarin 0.625mg/GM Cream apply 1/2 gram topically to vagina as needed 90gm N95.2 Elizabeth Linares er, D.O. 02/19/2019 Amlodipine Besylate 5mg Tablets 1 by mouth every day 90tabs Jatin Argueta.O. Liquid Calcium With D3 Maximum Strength [id number] Capsules Unknown 0 Aspirin Ec Low Dose [...] tablet by mouth once per day Unknown Co Q 10 100mg Capsules 1 by mouth every day Unknown Vitamin D3 1000Unit Capsules 1 by mouth every day Unknown Multivitamin Women 50+ 50+ Tablets Unknown Osteo Bi-Flex Advanced Double Strength W ith Joint Shield Tablets take 2 tablets by mouth every day Unknown Hydrocodone-Acetaminophen 10-325mg Tablets Take One - 2 Tablet By Mouth Every 6 Bimal rs as Needed Maximum Daily Dose 8 Tablets Unknown Docusate Sodium 100mg Capsules 1 cap by mouth twice a day 180caps Elizabeth Sarkar D.O. Duloxetine HCL 30mg Caps DR Part 2 tab by mouth in the morning and 1 tabs in the evening 360caps Jatin Argueta.O. Tolterodine Tartrate ER 4mg Caps E R 24HR 1 tab by mouth daily 90caps Jatin Argueta.O. Celecoxib 100mg Capsules 1 tab by mouth twice a day 180caps Elizabeth Sarkar D.O. History Medications Valium 2mg Tablets take 1-2 tabs every 6 hours as needed for involuntary muscle activity 60tabs R26.9 Jatin Bernardo.O. 09/25/2020 - 10/10/2020 R25.8 Valium 5mg Tablets take 1 tab every 8 hours as needed for muscle spasm 9tabs Christopher GutiérrezO. 09/22/2020 - 09/25/2020 [facility] Home Sleep Study presence of Nocturnal hypoxia 1units R09 .02 Jatin Bernardo.O. 08/27/2020 - 09/25/2020 Prednisone 20mg Tablets 1 tab by mouth daily x 5 days 5tabs Jatin Argueta.O. 08/18 - 08/25/2020 Nocturnal Oximetry Spo2 Monitor Increased desaturations at home. 1u nits R06.00 Jatin Argueta.O. 08/07/2020 - 09/09/2020 Lasix 20mg Tablets 1 by mouth once a day as needed for edema 90tabs Christopher ArguetaOKristy 1 09/07/2019 - 09/09/2020 Flovent HFA 44mcg/Act Aerosol take 2 puffs twice daily as needed 10.600gm R06.00 Christopher ArguetaOKristy 07/03/2020 - 09/09/2020 Flonase Allergy Relief 50mcg/Act Suspension two sprays in each nostril once daily 18.200ml Christopher BurksOKristy 06/17/2020 - 10/10/2020 Metoclopramide HCL 5mg Tablets 1 by mouth every 4-6 hours as needed for nausea 42tabs Elizabeth Panda D.O. 06/11/2020 - 09/25/2020 Cipro 500mg Tablets 1 tablet every 12 hours for 7 days 14tabs Elizabeth Sarkar D.O. 10/0 02/2020 - 06/19/2020 Macrobid 100mg Capsules one capsule by mouth daily for ten days 20caps Jatin ArguetaOKristy 06/03/2020 - 06/04/2020 Medications Administered in Office Medication SIG Qnty Indications Ordering Provider Date Injection Methylprednisolone Acetate 80 MG Injection LEVI Metzger 12/04/19 20 Immunizations Description No Information Available Vital Signs Date Vital Result Comment 10/10/2020 8:41am BP Systolic 133 mmHg BP Diastolic 72 mmHg Height 60.2 inches 5'0.20" Weight 125.00 lb BMI (Body Mass Index) 24.2 kg/m2 Heart Rate 93 /min Respiratory Rate 14 /min Body Temperature 97.7 F O2 % BldC Oximetry 98 % [place] Body Weight 100 lb 09/25/2020 3:47pm BP Systolic 130 mmHg BP Diastolic 74 mmHg Height 60.2 inches 5'0.20" Weight 126.00 lb BMI (Body Mass Index) 24.4 kg/m2 Heart Rate 105 /min Respiratory Rate 18 /min Body Temperature 98.5 F O2 % BldC Oximetry 94 % [place] Body Weight 100 lb Results Test Acquired Date Facility Test Result H/L Range Note CBC With Differential 09/19/2020 [facility] Outpatient Sherly baileyelbert (Registration) [address] [place] [address] [phone] White Blood Count 7.5 10 Normal 4.0-10.0 Red Blood Count 4.44 10 Normal 4.00-5.40 Hemoglobin 12.7 g/dL Normal 12.0-15.5 Hematocrit 39.6 % Normal 36.0-47.0 Mean Corpuscular Volume 89.2 fl Normal 80.0-96.0 Mean Corpuscular Hemoglobin 28.6 pg Normal 27.0-33.0 Mean Corpuscular HGB Conc 32.1 g/dL Normal 32.0-36.5 Red Cell Distribution Width 17.4 % High 11.5-14.5 Platelet Count, Automated 236 10 Normal 150-450 Neutrophils % 61.2 % Normal 36.0-66.0 Lymph % 24.8 % Normal 24.0-44.0 Hinds % 10.1 % High 0.0-5.0 Eos % 2.8 % Normal 0.0-3.0 Baso % 0.7 % Normal 0.0-1.0 Immature Granulocyte % 0.4 % Normal 0-3.0 Nucleated Red Blood Cell % 0.0 % Normal 0-0 Neutrophils # 4.6 10 Normal 1.5-8.5 Lymph # 1.9 10 Normal 1.5-5.0 Hinds # 0.8 10 Normal 0.0-0.8 Eos # 0.2 10 Normal 0.0-0.5 Baso # 0.1 10 Normal 0.0-0.2 Basic Metabolic Profile 09/19/2020 [facility] Outpatient T esting (Registration) [address] [place] [address] [phone] Glucose, Fasting 95 mg/dL Normal 70-100 Blood Urea Nitrogen 8 mg/dL Normal 7-18 Creatinine For GFR 0.87 mg/dL Normal 0.55-1.30 Glomerular Filtration Rate > 60.0 Normal >45 1 Sodium Level 139 mEq/L Normal 136-145 Potassium Serum 3.7 mEq/L Normal 3.5-5.1 Chloride Level 107 mEq/L Normal 98-107 Carbon Dioxide Level 25 mEq/L Normal 21-32 Anion Gap 7 mEq/L Low 8-16 Calcium Level 9.1 mg/dL Normal 8.8-10.2 Laboratory test finding 09/19/2020 [facility] Outpatient T esting (Registration) [address] [place] [address] [phone] CPK Creatine Phosphokinase 88 U/L Normal 26-19 2 Magnesium Level 2.1 mg/dL Normal 1.8-2.4 CBC With Differential 07/04/2020 [facility] Outpatient Sherly ting (Registration) [address] [place] [address] [phone] White Blood Count 7.5 10 Normal 4.0-10.0 [...] 0.0 % Normal 0-0 Prothrombin Time/Inr 07/04/2020 [facility] Outpatient Test ing (Registration) [address] [place] [address] [phone] Prothrombin Time 13.3 seconds Normal 12.5-14.3 Inr 0.99 Normal 2 Liver Profile 07/04/2020 [facility] Outpatient Testi ng (Registration) [address] [place] [address] [phone] Ast/Sgot 13 U/L Normal 7-37 Alt/SGPT 15 U/L Normal 12-78 Alkaline Phosphatase 75 U/L Normal 45-117 Bilirubin,Total 0.2 mg/dL Normal 0.2-1.0 Bilirubin,Direct < 0.1 mg/dL Normal 0.0-0.2 Total Protein 6.4 GM/DL Normal 6.4-8.2 Albumin 3.4 GM/DL Normal 3.2-5.2 Albumin/Globulin Ratio 1.1 Low 1.2-2.2 Basic Metabolic Profile 07/04/2020 [facility] Outpatient T esting (Registration) [address] [place] [address] [phone] Glucose, Fasting 85 mg/dL Normal 70-100 Blood Urea Nitrogen 9 mg/dL Normal 7-18 Creatinine For GFR 1.27 mg/dL Normal 0.55-1.30 Glomerular Filtration Rate 44.7 Low >45 3 Sodium Level 133 mEq/L Low 136-145 Potassium Serum 4.3 mEq/L Normal 3.5-5.1 Chloride Level 100 mEq/L Normal 98-107 Carbon Dioxide Level 27 mEq/L Normal 21-32 Anion Gap 6 mEq/L Low 8-16 Calcium Level 8.3 mg/dL Low 8.8-10.2 Laboratory test finding 07/04/2020 [facility] Outpatient T esting (Registration) [address] [id number] [phone] Lipase 69 U/L Low 73-393 Differential 07/04/2020 [facility] Outpatient Testi ng (Registration) [address] [place] [address] [phone] Neutrophils 46 % Normal 28-66 Bands 1 % Normal < 11 Lymphocytes 43 % Normal 16-44 Monocytes 4 % Normal 0-5 Eosinophils 4 % High 0-3 Metamyelocytes 2 % High 0-0 Hypochromasia 1+ Normal Anisocytosis 1+ Normal Laboratory test finding 07/04/2020 [facility] Outpatient T esting (Registration) [address] [id number] [phone] Platelet Estimate NORMAL Normal Normal Laboratory test finding 06/03/[address] [address] [phone] Urine Culture FULL REPORT IN L <SEE NOTE> Normal 4 Ua Routine 06/03/2020 [facility] nter [address] [place] [address] [phone] Appearance, Urine CLOUDY High Clear Color, Urine YELLOW Normal Yellow PH,Urine 6.0 units Normal 5.0-9.0 Specific Bland Urine Auto 1.008 Normal 1.002-1.035 Protein, Urine [...] 0 /LPF Normal 0-1 Laboratory test finding 06/02/[address] [address] [phone] C Reactive Protein Quantitativ 0.96 mg/dL High 0 .00-0.30 Liver Profile 06/02/2020 [facility] nter [address] [place] [address] [phone] Ast/Sgot 15 U/L Normal 7-37 Alt/SGPT 14 U/L Normal 12-78 Alkaline Phosphatase 76 U/L Normal 45-117 Bilirubin,Total 0.3 mg/dL Normal 0.2-1.0 Bilirubin,Direct 0.1 mg/dL Normal 0.0-0.2 Total Protein 6.1 GM/DL Low 6.4-8.2 Albumin 2.7 GM/DL Low 3.2-5.2 Albumin/Globulin Ratio 0.8 Low 1.2-2.2 Basic Metabolic Profile 06/02/[address] [address] [phone] Glucose, Fasting 71 mg/dL Normal 70-100 Blood Urea Nitrogen 6 mg/dL Low 7-18 Creatinine For GFR 0.86 mg/dL Normal 0.55-1.30 Glomerular Filtration Rate > 60.0 Normal >45 5 Sodium Level 126 mEq/L Low 136-145 Potassium Serum 4.4 mEq/L Normal 3.5-5.1 Chloride Level 94 mEq/L Low 98-107 Carbon Dioxide Level 23 mEq/L Normal 21-32 Anion Gap 9 mEq/L Normal 8-16 Calcium Level 8.5 mg/dL Low 8.8-10.2 Laboratory test finding 06/02/[address] [address] [phone] Magnesium Level 1.3 mg/dL Low 1.8-2.4 Total Iron Binding Capacit 06/02/[address] [address] [phone] Iron (Fe) 37 g/dL Low 50-170 Total Iron Binding Capacity 223 g/dL Low 250-450 Percent Saturation 16.6 % Normal 13.2-45.0 Laboratory test finding 06/02/[address] [address] [phone] Lipase 82 U/L Normal 73-393 FT4&TSH Panel 06/02/[address] [address] [phone] Thyroid Stimulating Hormone 6.210 uIU/ML High 0. 358-3.740 Free T4 1.85 ng/dL High 0.76-1.46 Amiodarone Level 06/02/[address] [address] [phone] Amiodarone (Cordarone) 1.1 ug/mL Normal 1.0-2.5 6 Noramiodarone Level 0.8 ug/mL Low 1.0-2.5 7 Randa Titer & Pattern 06/02/[address] [address] [phone] Randa (Hep2) Negative Normal . 8 CBC With Differential 06/02/[address] [address] [phone] White Blood Count 8.6 10 Normal 4.0-10.0 [...] 36.0-66.0 Lymph % 19.6 % Low 24.0-44.0 Hinds % 10.1 % High 0.0-5.0 Eos % 6.3 % High 0.0-3.0 Baso % 0.4 % Normal 0.0-1.0 Immature Granulocyte % 0.6 % Normal 0-3.0 Nucleated Red Blood Cell % 0.0 % Normal 0-0 Neutrophils # 5.4 10 Normal 1.5-8.5 Lymph # 1.7 10 Normal 1.5-5.0 Hinds # 0.9 10 High 0.0-0.8 Eos # 0.5 10 Normal 0.0-0.5 Baso # 0.0 10 Normal 0.0-0.2 1 Units are mL/min/1.73 m2 Chronic Kidney Disease Staging per NKF: Stage I & II GFR >=60 Normal to Mildly Decreased Stage III GFR 30-59 Moderately Decreased Stage IV GFR 15-29 Severely Decreased Stage V GFR <15 Very Little GFR Left ESRD GFR <15 on HYDROELECTRIC PLANT MAINTAINER 2 THERAPUTIC HUMAN INR VALUES INDICATIONS NORMAL RANGES PROPHYLAXIS/TREATMENT OF: VENOUS THROMBOSIS 2.0-3.0 PULMONARY EMBOLISM 2.0-3.0 PREVENTION OF SYSTEMIC EMBOLISM FROM: TISSUE HEART VALVES 2.0-3.0 ACUTE MYOCARDIAL INFARCTION 2.0-3.0 VALVULAR HEART DISEASE 2.0-3.0 ATRIAL FIBRILLATION 2.0-3.0 MECHANICAL VALVES(HIGH RISK) 2.5-3.5 RECURRENT MYOCARDIAL INFARCTION 2.5-3.5 3 Units are mL/min/1.73 m2 Chronic Kidney Disease Staging per NKF: Stage I & II GFR >=60 Normal to Mildly Decreased Stage III GFR 30-59 Moderately Decreased Stage IV GFR 15-29 Severely Decreased Stage V GFR <15 Very Little GFR Left ESRD GFR <15 on HYDROELECTRIC PLANT MAINTAINER 4 FULL REPORT IN LAB NOTES (eC W and Med[facility]). ORGANISM 1: KLEBSIELLA PNEUMONIAE COLONY COUNT >100,000 [...] SPCTRM BETA LACTAMASE IV NEGATIVE FOR ESBL 5 Units are mL/min/1.73 m2 Chronic Kidney Disease Staging per NKF: Stage I & II GFR >=60 Normal to Mildly Decreased Stage III GFR 30-59 Moderately Decreased Stage IV GFR 15-29 Severely Decreased Stage V GFR <15 Very Little GFR Left ESRD GFR <15 on HYDROELECTRIC PLANT MAINTAINER 6 This test was developed and its performance characteristics determined by [employer]. It has not been cleared or approved by the Food and Drug Administration. Detection Limit = 0.2 7 This test was developed and its performance characteristics determined by [employer]. It has not been cleared or approved by the Food and Drug Administration. Detection Limit = 0.2 8 Negative <1:80 Borderline 1:80 Positive >1:80 Performed at: [facility] [id number] [employer] Supervisor: Javier Scott MD, Phone: [phone] Performed at: [facility] [id number] [employer] Supervisor: Tammy Sarmiento MD, Phone: [phone] Procedures Description No Information Available Medical Devices Description No Information Available Encounters Type Date Location Provider Dx Diagnosis Office Visit 10/10/2020 8:30a [facility] LEVI Metzger S22.000A Wedge compression fracture o f unsp thoracic vertebra, init Office Visit 09/30/2020 1:30p [facility] LEVI Ramon S20.20xA Contusion of thorax, unspeci fied, initial encounter M54.5 Low back pain Office Visit 09/25/2020 4:00p [facility] LEVI Ramon R25.8 Other abnormal involuntary m ovements R26.9 Unspecified abnormalities of gait and mobility Z79.899 Other exterminator helper termite (current) dr stiven marshall Z79.01 senior living (current) use of a nticoagulants Office Visit 09/09/2020 3:30p [facility] LEVI Metzger R26.9 Unspecified abnormalities of gait and mobility I10 Essential (primary) hyperten opal I48.0 Paroxysmal atrial fibrillati on I49.5 Sick sinus syndrome M79.7 Fibromyalgia F33.0 Major depressive disorder, r ecurrent, mild E78.2 Mixed hyperlipidemia G47.8 Other sleep disorders Z79.899 Other exterminator helper termite (current) dr stiven marshall Z79.82 terminal manager (current) use of a spirin Z79.01 senior living (current) use of a nticoagulants Office Visit 08/07/2020 1:00p [facility] LEVI Ramon R06.00 Dyspnea, unspecified Office Visit 07/23/2020 10:00a [facility] LEVI Metzger I10 Essential (primary) hyperten opal I48.0 Paroxysmal atrial fibrillati on M79.7 Fibromyalgia S42.201D Unsp fx upper end of r yolanda , subs for fx w [facility] Office Visit 07/03/2020 3:00p [facility] LEVI Metzger E44.1 Mild protein-calorie malnutr ition R06.00 Dyspnea, unspecified Z79.899 Other care home (current) dr saleem therapy Z79.82 terminal manager (current) use of a spirin K21.9 Gastro-esophageal reflux dis ease without esophagitis F33.0 Major depressive disorder, r ecurrent, mild Office Visit 06/19/2020 1:30p [facility] LEVI Ramon E87.1 Hypo-osmolality and hyponatr emia E83.42 Hypomagnesemia E44.1 Mild protein-calorie malnutr ition Z79.82 terminal manager (current) use of a spirin Z79.899 Other care home (current) dr stiven marshall R06.00 Dyspnea, unspecified Office Visit 05/29/2020 2:40p [facility] Medicine [facility] LEVI Metzger R10.84 Generalized abdominal pain I48.0 Paroxysmal atrial fibrillati on 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 Assessments Date Code Description Provider 10/10/2020 S22.000A Wedge compression fr acture of unspecified thoracic vertebra, initial encounter for closed fracture LEVI Metzger 09/30/2020 S20.20xA Contusion of thorax, unspecified , initial encounter LEVI Metzger 09/30/2020 M54.5 Low back pain LEVI Metzger 09/25/2020 R25.8 Other abnormal involuntary movem ents LEVI Metzger 09/25/2020 R26.9 Unspecified abnormalities of gai t and mobility LEVI Metzger 09/25/2020 Z79.899 Other care home (current) drug t herapy LEVI Metzger 09/25/2020 Z79.01 terminal manager (current) use of antic oagulants LEVI Metzger 09/09/2020 R26.9 Unspecified abnormalities of gai t and mobility LEVI Metzger 09/09/2020 I10 Essential (primary) hypertension LEVI Metzger 09/09/2020 I48.0 Paroxysmal atrial fibrillation LEVI Rain 09/09/2020 I49.5 Sick sinus syndrome LEVI Anthony 09/09/2020 M79.7 Fibromyalgia LEVI Metzger 09/09/2020 F33.0 Major depressive disorder, recur rent, mild LEVI Metzger 09/09/2020 E78.2 Mixed hyperlipidemia LEVI Ortiz 09/09/2020 G47.8 Other sleep disorders LEVI Nguyen 09/09/2020 Z79.899 Other exterminator helper termite (current) drug t herapy LEVI Metzger 09/09/2020 Z79.82 terminal manager (current) use of aspir in LEVI Metzger 09/09/2020 Z79.01 terminal manager (current) use of antic oagulants LEVI Metzger 08/07/2020 R06.00 Dyspnea, unspecified LEVI Ortiz 07/23/2020 I10 Essential (primary) hypertension LEVI Metzger 07/23/2020 I48.0 Paroxysmal atrial fibrillation M LEVI Baker 07/23/2020 M79.7 Fibromyalgia LEVI Metzger 07/23/2020 S42.201D Unspecified fracture of upper end of right humerus, subsequent encounter for fracture with routine healing LEVI Metzger 07/03/2020 E44.1 Mild protein-calorie malnutritio n LEVI Metzger 07/03/2020 R06.00 Dyspnea, unspecified LEVI Ortiz 07/03/2020 Z79.899 Other care home (current) drug t herapy LEVI Metzger 07/03/2020 Z79.82 terminal manager (current) use of aspir in LEVI Metzger 07/03/2020 K21.9 Gastro-esophageal reflux disease without esophagitis LEVI Metzger 07/03/2020 F33.0 Major depressive disorder, recur rent, mild LEVI Metzger 06/19/2020 E87.1 Hypo-osmolality and hyponatremia LEVI Metzger 06/19/2020 E83.42 Hypomagnesemia LEVI Metzger 06/19/2020 E44.1 Mild protein-calorie malnutritio n LEVI Metzger 06/19/2020 Z79.82 senior living (current) use of aspir in LEVI Metzger 06/19/2020 Z79.899 Other care home (current) drug t herapy LEVI Metzger 06/19/2020 R06.00 Dyspnea, unspecified LEVI Ortiz 05/29/2020 R10.84 Generalized abdominal pain Jatinder LEVI Johnson 05/29/2020 I48.0 Paroxysmal atrial fibrillation M LEVI Baker 05/29/2020 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 Concern for over sedation with current hydrocodone and valium. Please evaluate for better pain management. Sent [phone] Mandeep Scott M.D. compression fracture of T12. please sebastián luate and treat. Sent [facility] [address] [place] [address] [phone] [facility] Mable has sick sinus syndr ome, paroxysmal atrial fibrillation, hx of ischemic bowel, SBO and now has been complaint and taking her Eliquis. She has a history of frequent falls in recent past. She has a Pace maker for her sick sinus syndrome inserted on 09/12/20. She recently has been having some left sided neglect and a positive Rhomberg sign. She had a stat CT head on 09/11/20 which was normal. please evaluate and treat for cerebellar dysfunction. Sent [address] [facility], [place] [id number] [phone] [facility] had [...] and pain in left upper arm. Closed [address] [facility] [address] [phone] [facility] had [...] and pain in left upper arm. Closed [address] [facility] [address] [phone] Chioma Gorman Rosemary has auto immune disease, recent colectomy, and history of depression which has been worse with her chronic disease. Interested in virtual counseling Sent [address] [facility] [address] [place], [place] [id number] [phone]
--- OUTSIDE RECORDS SUMMARY | 2020-10-17 11:59 | CCD | Continuity of Care Document ---
Author Author Mable CHRISTENSEN Organization Unknown [place] [address] Phone [phone] Care Team Providers Care Crowd Controller Name Role Phone Elizabeth Sarkar D.O. AUTM Tonya Allen WOOLEN TESTER-R AUTM [phone] [facility] AUTM [phone] [facility] AUTM [phone] Chioma Gorman AUTM [phone] Marzena Gonzalez AUTM [phone] [facility] AUTM [phone] Mandeep Scott M.D. AUTM [phone] Problems Active Problems Provider Date Mixed hyperlipidemia [...] twice a day by mouth. 60tabs Elizabeth soriano, D.O. 10/10/2020 Calcitonin ([place]) 200Unit/Act So lution one spray (alternating nostrils) daily 3.700ml Jatin Parisi.OKristy 10/03/2020 Hydrocodone-Acetaminophen 5-325mg Tablets 1 tablets by mouth every 4 hours (between 10/325 dose) for breakthrough pain 45tabs Jatin Argueta.O. 10/03/2020 Cholestyramine 4gm Packet 2 grams twice a day 120units Jatin Argueta.OKristy 08/27 Prednisone 5mg Tablets one tablet by mouth once a day 90tabs Elizabeth Sarkar D.O. 08/25 Esomeprazole Magnesium 40mg Capsul es DR 1 capsule twice a day by mouth every day 180caps Jatin Parisi.OKristy 07/03/2020 Wellbutrin XL 150mg Tablets ER 24H R take one tablet by mouth once a day 90tabs Jatin Phan.OKristy 12/18/2019 Singulair 10mg Tablets 1 by mouth every day 90tabs Jatin Argueta.OKristy 11/29 Albuterol Sulfate HFA 108(90Base) mcg/Act Aerosol 1-2 puffs every 4-6 hours as needed for shortness of breath 25.5 gm J20.9 Christopher ArguetaOKristy 11/29/2019 Pro Comfort Inhaler Spacer Chamber Adult Misc to be used in combination with Mdi 1units Christopher ChaudhryOKristy 11/29/2019 Zolpidem Tartrate 5mg Tablets take one - two tablet by mouth an hour before bedtime as needed. ensure at least 8 hours of sleep istop: [id number] 60tabs Jatin Argueta.O . 11/15/2019 Gabapentin 300mg Capsules 2 in the am 1 in the pm and 2 at bedtime 270caps Jatin Argueta. O. 07/23/2019 Premarin 0.625mg/GM Cream apply 1/2 gram topically to vagina as needed 90gm N95.2 Elizabeth Linares er, D.O. 02/19/2019 Amlodipine Besylate 5mg Tablets 1 by mouth every day 90tabs Jatin Argueta.O. Liquid Calcium With D3 Maximum Strength [id number] Capsules Unknown 0 Aspirin Ec Low Dose 81mg Tablets D R one by mouth every day 90tabs Elizabeth Sarkar D.O. Eliquis 5mg Tablets take one tablet by [...] 1 tab by mouth daily 90caps Jatin Argutea.O. Celecoxib 100mg Capsules 1 tab by mouth twice a day 180caps Jatin Argueta.O. History Medications Valium 2mg Tablets take 1-2 tabs every 6 hours as needed for involuntary muscle activity 60tabs R26.9 Jatin Bernardo.O. 09/25/2020 - 10/10/2020 R25.8 Valium 5mg Tablets take 1 tab every 8 hours as needed for muscle spasm 9tabs Jatin Gutiérrez.O. 09/22/2020 - 09/25/2020 [facility] Home Sleep Study presence of Nocturnal hypoxia 1units R09 .02 Christopher BernardoO. 08/27/2020 - 09/25/2020 Prednisone 20mg Tablets 1 [...] nostril once daily 18.200ml Jatin Burks.OKristy 06/17/2020 - 10/10/2020 Metoclopramide HCL 5mg Tablets 1 by mouth every 4-6 hours as needed for nausea 42tabs Jatin Louise.OKristy 06/11/2020 - 09/25/2020 Cipro 500mg Tablets 1 tablet every 12 hours for 7 days 14tabs Christopher ArguetaOKristy 100 02/2020 - 06/19/2020 Macrobid 100mg Capsules one capsule by mouth daily for ten days 20caps Jatin ArguetaOKristy 06/03/2020 - 06/04/2020 Prevnar 13 Suspension administer at pharmacy .500ml Christopher ArguetaOKristy 04/10 - 05/29/2020 Shingrix 50mcg/0.5ML Suspension Re c administer shingrix vaccine at pharmacy 1units Elizabeth Zmimerman D.O. 04/10/2020 - 05/29/2020 Medications Administered in Office [...] F O2 % BldC Oximetry 98 % Dinosaur Body Weight 100 lb 09/25/2020 3:47pm BP Systolic 130 mmHg BP Diastolic 74 mmHg Height 60.2 inches 5'0.20" Weight 126.00 lb BMI (Body Mass Index) 24.4 kg/m2 Heart Rate 105 /min Respiratory Rate 18 /min Body Temperature 98.5 F O2 % BldC Oximetry 94 % Dinosaur Body Weight 100 lb Results Test Acquired Date Facility Test Result H/L Range Note CBC With Differential 09/19/2020 [facility] Outpatient Sherly cesar (Registration) [address] [place] [address] [phone] White Blood Count 7.5 10 Normal 4.0-10.0 [...] 36.0-66.0 Lymph % 24.8 % Normal 24.0-44.0 Boundary % 10.1 % High 0.0-5.0 Eos % 2.8 % Normal 0.0-3.0 Baso % 0.7 % Normal 0.0-1.0 Immature Granulocyte % 0.4 % Normal 0-3.0 Nucleated Red Blood Cell % 0.0 % Normal 0-0 Neutrophils # 4.6 10 Normal 1.5-8.5 Lymph # 1.9 10 Normal 1.5-5.0 Boundary # 0.8 10 Normal 0.0-0.8 Eos # 0.2 10 Normal 0.0-0.5 Baso # 0.1 10 Normal 0.0-0.2 Basic Metabolic Profile 09/19/2020 [facility] Outpatient T chioma (Registration) [address] [place] [address] [phone] Glucose, Fasting 95 mg/dL Normal 70-100 Blood [...] mg/dL Normal 8.8-10.2 Laboratory test finding 09/19/2020 [facility] Outpatient T esting (Registration) [address] [place] [address] [phone] CPK Creatine Phosphokinase 88 U/L Normal 26-19 2 Magnesium Level 2.1 mg/dL Normal 1.8-2.4 CBC With Differential 07/04/2020 [facility] Outpatient Sherly ting (Registration) [address] [place] [address] [phone] White Blood Count 7.5 10 Normal 4.0-10.0 [...] 0.0 % Normal 0-0 Prothrombin Time/Inr 07/04/2020 [facility] Outpatient Test ing (Registration) [address] [place] [address] [phone] Prothrombin Time 13.3 seconds Normal 12.5-14.3 Inr 0.99 Normal 2 Liver Profile 07/04/2020 [facility] Outpatient Testi ng (Registration) [address] [place] [address] [phone] Ast/Sgot 13 U/L Normal 7-37 Alt/SGPT 15 U/L Normal 12-78 Alkaline Phosphatase 75 U/L Normal 45-117 Bilirubin,Total 0.2 mg/dL Normal 0.2-1.0 Bilirubin,Direct < 0.1 mg/dL Normal 0.0-0.2 Total Protein 6.4 GM/DL Normal 6.4-8.2 Albumin 3.4 GM/DL Normal 3.2-5.2 Albumin/Globulin Ratio 1.1 Low 1.2-2.2 Basic Metabolic Profile 07/04/2020 [facility] Outpatient T esting (Registration) [address] [place] [address] [phone] Glucose, Fasting 85 mg/dL Normal 70-100 Blood [...] mg/dL Low 8.8-10.2 Laboratory test finding 07/04/2020 [facility] Outpatient T esting (Registration) [address] [place] [address] [phone] Lipase 69 U/L Low 73-393 Differential 07/04/2020 [facility] Outpatient Testi ng (Registration) [address] [place] [address] [phone] Neutrophils 46 % Normal 28-66 Bands 1 % Normal < 11 Lymphocytes 43 % Normal 16-44 Monocytes 4 % Normal 0-5 Eosinophils 4 % High 0-3 Metamyelocytes 2 % High 0-0 Hypochromasia 1+ Normal Anisocytosis 1+ Normal Laboratory test finding 07/04/2020 [facility] Outpatient T esting (Registration) [address] [place] [address] [phone] Platelet Estimate NORMAL Normal Normal Laboratory test finding 06/03/2020 [facility] [address] [address] [phone] Urine Culture FULL REPORT IN L <SEE NOTE> Normal 4 Ua Routine 06/03/2020 [facility] [address] [place] [address] [phone] Appearance, Urine CLOUDY High Clear Color, Urine YELLOW Normal Yellow PH,Urine 6.0 units Normal 5.0-9.0 Specific [place] Urine Auto 1.008 Normal 1.002-1.035 Protein, Urine [...] /LPF Normal 0-1 Laboratory test finding 06/02/[address] [address] [phone] C Reactive Protein Quantitativ 0.96 mg/dL High 0 .00-0.30 Liver Profile 06/02/2020 [facility] nter [address] [place] [address] [phone] Ast/Sgot 15 U/L Normal 7-37 Alt/SGPT 14 U/L Normal 12-78 Alkaline Phosphatase 76 U/L Normal 45-117 Bilirubin,Total 0.3 mg/dL Normal 0.2-1.0 Bilirubin,Direct 0.1 mg/dL Normal 0.0-0.2 Total Protein 6.1 GM/DL Low 6.4-8.2 Albumin 2.7 GM/DL Low 3.2-5.2 Albumin/Globulin Ratio 0.8 Low 1.2-2.2 Basic Metabolic Profile 06/02/[address] [address] [phone] Glucose, Fasting 71 mg/dL Normal 70-100 Blood [...] mg/dL Low 8.8-10.2 Laboratory test finding 06/02/[address] [address] [phone] Magnesium Level 1.3 mg/dL Low 1.8-2.4 Total Iron Binding Capacit 06/02/[address] [address] [phone] Iron (Fe) 37 g/dL Low 50-170 Total Iron Binding Capacity 223 g/dL Low 250-450 Percent Saturation 16.6 % Normal 13.2-45.0 Laboratory test finding 06/02/[address] [address] [phone] Lipase 82 U/L Normal 73-393 FT4&TSH Panel 06/02/2020 [facility] [address] [address] [phone] Thyroid Stimulating Hormone 6.210 uIU/ML High 0. 358-3.740 Free T4 1.85 ng/dL High 0.76-1.46 Amiodarone Level 06/02/[address] [address] [phone] Amiodarone (Cordarone) 1.1 ug/mL Normal 1.0-2.5 6 Noramiodarone Level 0.8 ug/mL Low 1.0-2.5 7 Randa Titer & Pattern 06/02/2020 [facility] [address] [address] [phone] Randa (Hep2) Negative Normal . 8 CBC With Differential 06/02/[address] [address] [phone] White Blood Count 8.6 10 Normal 4.0-10.0 [...] 36.0-66.0 Lymph % 19.6 % Low 24.0-44.0 Boundary % 10.1 % High 0.0-5.0 Eos % 6.3 % High 0.0-3.0 Baso % 0.4 % Normal 0.0-1.0 Immature Granulocyte % 0.6 % Normal 0-3.0 Nucleated Red Blood Cell % 0.0 % Normal 0-0 Neutrophils # 5.4 10 Normal 1.5-8.5 Lymph # 1.7 10 Normal 1.5-5.0 Boundary # 0.9 10 High 0.0-0.8 Eos # 0.5 10 Normal 0.0-0.5 Baso # 0.0 10 Normal 0.0-0.2 1 Units are mL/min/1.73 m2 Chronic Kidney Disease Staging per NKF: Stage I & II GFR >=60 Normal to Mildly Decreased Stage III GFR 30-59 Moderately Decreased Stage IV GFR 15-29 Severely Decreased Stage V GFR <15 Very Little GFR Left ESRD GFR <15 on WELT BUTTER HAND 2 THERAPUTIC HUMAN INR VALUES INDICATIONS NORMAL [...] Little GFR Left ESRD GFR <15 on WELT BUTTER HAND 4 FULL REPORT IN LAB NOTES (eC [...] Little GFR Left ESRD GFR <15 on WELT BUTTER HAND 6 This test was developed and its performance characteristics determined by [employer]. It has not been cleared or approved by the Food and Drug Administration. Detection Limit = 0.2 7 This test was developed and its performance characteristics determined by [employer]. It has not been cleared or approved by the Food and Drug Administration. Detection Limit = 0.2 8 Negative <1:80 Borderline 1:80 Positive >1:80 Performed at: - [facility] [address] [id number] Sod Farmer: Javier Scott MD, Phone: [phone] Performed at: - [facility] [address] [id number] Sod Farmer: Tammy Sarmiento MD, Phone: [phone] Procedures Description No Information Available Medical Devices Description No Information Available Encounters Type Date Location Provider Dx Diagnosis Office Visit 09/30/2020 1:30p [facility] Ian Christensen, PA S20.20xA Contusion of thorax, unspeci fied, initial encounter M54.5 Low back pain Office Visit 09/25/2020 4:00p [facility] LEVI Metzger R25.8 Other abnormal involuntary m ovements R26.9 Unspecified abnormalities of gait and mobility Z79.899 Other [facility] (current) dr stiven marshall Z79.01 [employer] (current) use of a nticoagulants Office Visit 09/09/2020 3:30p [facility] LEVI Ramon R26.9 Unspecified abnormalities of gait and mobility I10 Essential (primary) hyperten opal I48.0 Paroxysmal atrial fibrillati on I49.5 Sick sinus syndrome M79.7 Fibromyalgia F33.0 Major depressive disorder, r ecurrent, mild E78.2 Mixed hyperlipidemia G47.8 Other sleep disorders Z79.899 Other [facility] (current) dr stiven marshall Z79.82 [employer] (current) use of a spirin Z79.01 nursing home (current) use of a nticoagulants Office Visit 08/07/2020 1:00p [facility] LEVI Metzger R06.00 Dyspnea, unspecified Office Visit 07/23/2020 10:00a [facility] LEVI Metzger I10 Essential (primary) hyperten opal I48.0 Paroxysmal atrial fibrillati on M79.7 Fibromyalgia S42.201D Unsp fx upper end of r yolanda , subs for fx w [facility] Office Visit 07/03/2020 3:00p [facility] LEVI Ramon E44.1 Mild protein-calorie malnutr ition R06.00 Dyspnea, unspecified Z79.899 Other [facility] (current) dr stiven marshall Z79.82 [employer] (current) use of a spirin K21.9 Gastro-esophageal reflux dis ease without esophagitis F33.0 Major depressive disorder, r ecurrent, mild Office Visit 06/19/2020 1:30p [facility] LEVI Ramon E87.1 Hypo-osmolality and hyponatr emia E83.42 Hypomagnesemia E44.1 Mild protein-calorie malnutr ition Z79.82 [employer] (current) use of a spirin Z79.899 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 R06.00 Dyspnea, unspecified Office Visit 05/29/2020 2:40p [facility] LEVI Metzger R10.84 Generalized abdominal pain I48.0 Paroxysmal atrial fibrillati on 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 Assessments Date Code Description Provider 09/30/2020 S20.20xA Contusion of thorax, unspecified , initial encounter LEVI Metzger 09/30/2020 M54.5 Low back pain LEVI Metzger 09/25/2020 R25.8 Other abnormal involuntary movem ents LEVI Metzger 09/25/2020 R26.9 Unspecified abnormalities of gai t and mobility LEVI Metzger 09/25/2020 Z79.899 Other [facility] (current) drug t herapy LEVI Metzger 09/25/2020 Z79.01 [employer] (current) use of antic oagulants LEVI Metzger [...] sleep disorders LEVI Nguyen 09/09/2020 Z79.899 Other termite helper (current) drug t herapy LEVI Metzger 09/09/2020 Z79.82 nursing home (current) use of aspir in LEVI Meztger 09/09/2020 Z79.01 [employer] (current) use of antic oagulants LEVI Metzger [...] Dyspnea, unspecified LEVI Ortiz 07/03/2020 Z79.899 Other termite helper (current) drug t herapy LEVI Metzger 07/03/2020 Z79.82 nursing home (current) use of aspir in LEVI Metzger 07/03/2020 K21.9 Gastro-esophageal reflux disease without esophagitis LEVI Metzger 07/03/2020 F33.0 Major depressive disorder, recur rent, mild LEVI Metzger 06/19/2020 E87.1 Hypo-osmolality and hyponatremia LEVI Metzger 06/19/2020 E83.42 Hypomagnesemia LEVI Metzger 06/19/2020 E44.1 Mild protein-calorie malnutritio n LEVI Metzger 06/19/2020 Z79.82 [employer] (current) use of aspir in LEVI Metzger 06/19/2020 Z79.899 Other [facility] (current) drug t herapy LEVI Metzger 06/19/2020 R06.00 Dyspnea, unspecified LEVI Ortiz 05/29/2020 R10.84 Generalized abdominal pain Jatinder LEVI Johnson 05/29/2020 I48.0 Paroxysmal atrial fibrillation LEVI Rain 05/29/2020 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 compression fracture of T12. please sebastiánben díazate and treat. Sent [facility] [address] [place] [address] [phone] [facility] Mable has sick sinus syndr [...] evaluate and treat for cerebellar dysfunction. Sent [address] [place] [address] [phone] [facility] had [...] and pain in left upper arm. Closed [address] [facility] [address] [phone] [facility] had [...] and pain in left upper arm. Closed [address] [facility] [address] [phone] Chioma Gorman has auto immune disease, recent colectomy, and history of depression which has been worse with her chronic disease. Interested in virtual counseling Sent [address] [facility] [address] [place] [address] [phone]
--- OUTSIDE RECORDS SUMMARY | 2020-10-17 11:59 | CCD | Continuity of Care Document ---
Author Author Mable TILLMAN Organization Unknown Address [place] [address] Phone [phone] Care Team Providers Care Home Management Supervisor Name Role Phone Elizabeth Sarkar D.O. AUTM Tonyaben Allen [employer] AUTM [phone] [facility] AUTM [phone] Chioma Gorman AUTM [phone] Marzena Gonzalez AUTM [phone] Problems Active Problems Provider Date Mixed hyperlipidemia [...] systemic involvement of connective tissue Mi LEVI oRse Onset: 06/29/2019 Paroxysmal atrial fibrillation LEVI Metzger [...] SIG Qnty Indications Ordering Provide r Date Valium 2mg Tablets take 1 tab every 8 hours as needed for involuntary muscle activity 30tabs R26.9 Elizabeth Snider D.O. 09/25/2020 R25.8 Cholestyramine 4gm Packet 2 grams twice a day 120units Jatin Argueta.OKristy 08/27 Prednisone 5mg Tablets one tablet by mouth once a day 90tabs Elizabeth Sarkar D.O. 08/25 Esomeprazole Magnesium 40mg Capsul es DR 1 capsule twice a day by mouth every day 180caps Jatin Parisi.O. 07/03/2020 Flonase Allergy Relief 50mcg/Act Suspension two sprays in each nostril once daily 18.200ml Jatin Burks.OKristy 06/17/2020 Wellbutrin XL 150mg Tablets ER 24H R take one tablet by mouth once a day 90tabs Elizabeth echevarria D.O. 12/18/2019 Singulair 10mg Tablets 1 by mouth every day 90tabs Elizabeth Sarkar D.O. 11/29 Albuterol Sulfate HFA 108(90Base) mcg/Act Aerosol [...] at least 8 hours of sleep istop: [id number] 60tabs Jatin Argueta.O . 11/15/2019 Gabapentin 300mg Capsules 2 in the am 1 in the pm and 2 at bedtime 270caps Jatin Argueta. O. 07/23/2019 Premarin 0.625mg/GM Cream apply 1/2 gram topically to vagina as needed 90gm N95.2 Elizabeth Linares er, D.O. 02/19/2019 Amlodipine Besylate 5mg Tablets 1 by mouth every day 90tabs Jatin Argueta.O. Liquid Calcium With D3 Maximum Strength [id number] Capsules Unknown 0 Aspirin Ec Low Dose 81mg Tablets D R one by mouth every day 90tabs Christopher ArguetaO. Eliquis 5mg Tablets take one tablet by [...] cap by mouth twice a day 180caps Jatin Argueta.O. Duloxetine HCL 30mg Caps DR Part 2 tab by mouth in the morning and 1 tabs in the evening 360caps Jatin Argueta.O. Tolterodine Tartrate ER 4mg Caps E R 24HR 1 tab by mouth daily 90caps Jatin Argueta.O. Celecoxib 100mg Capsules 1 tab by mouth twice a day 180caps Jatin Argueta.O. History Medications Valium 5mg Tablets take 1 tab every 8 hours as needed for muscle spasm 9tabs Christopher GutiérrezO. 09/22/2020 - 09/25/2020 [facility] Home Sleep Study presence of Nocturnal hypoxia 1units R09 .02 Christopher BernardoO. 08/27/2020 - 09/25/2020 Prednisone 20mg Tablets 1 tab by mouth daily x 5 days 5tabs Jatin Argueta.O. 08/18 - 08/25/2020 Nocturnal Oximetry Spo2 Monitor Increased desaturations at home. 1u nits R06.00 Jatin Argueta.O. 08/07/2020 - 09/09/2020 Lasix 20mg Tablets 1 by mouth once a day as needed for edema 90tabs Jatin Argueta.O. 1 09/07/2019 - 09/09/2020 Flovent HFA 44mcg/Act Aerosol take 2 puffs twice daily as needed 10.600gm R06.00 Jatin Argueta.O. 07/03/2020 - 09/09/2020 Metoclopramide HCL 5mg Tablets 1 by mouth every 4-6 hours as needed for nausea 42tabs Jatin Louise.O. 06/11/2020 - 09/25/2020 Cipro 500mg Tablets 1 tablet every 12 hours for 7 days 14tabs Christopher ArguetaO. 1002/2020 - 06/19/2020 Macrobid 100mg Capsules one capsule by mouth daily for ten days 20caps Jatin Argueta 06/03/2020 - 06/04/2020 Prevnar 13 Suspension administer at pharmacy .500ml Elizabeth Sarkar D.O. 04/10 - 05/29/2020 Shingrix 50mcg/0.5ML Suspension Re c administer shingrix vaccine at pharmacy 1units Elizabeth Zimmerman D.O. 04/10/2020 - 05/29/2020 Medications Administered in Office Medication SIG Qnty Indications Ordering Provider Date Injection Methylprednisolone Acetate 80 MG Injection LEVI Metzger 12/04/19 20 Immunizations Description No Information Available Vital Signs Date Vital Result Comment 09/25/2020 3:47pm BP Systolic 130 mmHg BP Diastolic 74 mmHg Height 60.2 inches 5'0.20" Weight 126.00 lb BMI (Body Mass Index) 24.4 kg/m2 Heart Rate 105 /min Respiratory Rate 18 /min Body Temperature 98.5 F O2 % BldC Oximetry 94 % Taylor Body Weight 100 lb 09/09/2020 3:16pm BP Systolic 136 mmHg BP Diastolic 70 mmHg Height 60.2 inches 5'0.20" Weight 127.00 lb BMI (Body Mass Index) 24.6 kg/m2 Heart Rate 87 /min Respiratory Rate 20 /min Body Temperature 98.7 F O2 % BldC Oximetry 99 % Taylor Body Weight 100 lb Results Test Acquired Date Facility Test Result H/L Range Note CBC With Differential 09/19/2020 [facility] Outpatient Sherly cesar (Registration) [address] [place] [address] [phone] White Blood Count 7.5 10 Normal 4.0-10.0 [...] 36.0-66.0 Lymph % 24.8 % Normal 24.0-44.0 [place] % 10.1 % High 0.0-5.0 Eos % 2.8 % Normal 0.0-3.0 Baso % 0.7 % Normal 0.0-1.0 Immature Granulocyte % 0.4 % Normal 0-3.0 Nucleated Red Blood Cell % 0.0 % Normal 0-0 Neutrophils # 4.6 10 Normal 1.5-8.5 Lymph # 1.9 10 Normal 1.5-5.0 [place] # 0.8 10 Normal 0.0-0.8 Eos # 0.2 10 Normal 0.0-0.5 Baso # 0.1 10 Normal 0.0-0.2 Basic Metabolic Profile 09/19/2020 [facility] Outpatient T chioma (Registration) [address] [place] [address] [phone] Glucose, Fasting 95 mg/dL Normal 70-100 Blood [...] mg/dL Normal 8.8-10.2 Laboratory test finding 09/19/2020 [facility] Outpatient T fabioing (Registration) [address] [place] [address] [phone] CPK Creatine Phosphokinase 88 U/L Normal 26-19 2 Magnesium Level 2.1 mg/dL Normal 1.8-2.4 CBC With Differential 07/04/2020 [facility] Outpatient Sherly ting (Registration) [address] [place] [address] [phone] White Blood Count 7.5 10 Normal 4.0-10.0 [...] 0.0 % Normal 0-0 Prothrombin Time/Inr 07/04/2020 [facility] Outpatient Test ing (Registration) [address] [place] [address] [phone] Prothrombin Time 13.3 seconds Normal 12.5-14.3 Inr 0.99 Normal 2 Liver Profile 07/04/2020 [facility] Outpatient Testi ng (Registration) [address] [place] [address] [phone] Ast/Sgot 13 U/L Normal 7-37 Alt/SGPT 15 U/L Normal 12-78 Alkaline Phosphatase 75 U/L Normal 45-117 Bilirubin,Total 0.2 mg/dL Normal 0.2-1.0 Bilirubin,Direct < 0.1 mg/dL Normal 0.0-0.2 Total Protein 6.4 GM/DL Normal 6.4-8.2 Albumin 3.4 GM/DL Normal 3.2-5.2 Albumin/Globulin Ratio 1.1 Low 1.2-2.2 Basic Metabolic Profile 07/04/2020 [facility] Outpatient T esting (Registration) [address] [place] [address] [phone] Glucose, Fasting 85 mg/dL Normal 70-100 Blood [...] mg/dL Low 8.8-10.2 Laboratory test finding 07/04/2020 [facility] Outpatient T esting (Registration) [address] [place] [address] [phone] Lipase 69 U/L Low 73-393 Differential 07/04/2020 [facility] Outpatient Testi ng (Registration) [address] [place] [address] [phone] Neutrophils 46 % Normal 28-66 Bands 1 % Normal < 11 Lymphocytes 43 % Normal 16-44 Monocytes 4 % Normal 0-5 Eosinophils 4 % High 0-3 Metamyelocytes 2 % High 0-0 Hypochromasia 1+ Normal Anisocytosis 1+ Normal Laboratory test finding 07/04/2020 [facility] Outpatient T esting (Registration) [address] [place] [address] [phone] Platelet Estimate NORMAL Normal Normal Ua Routine 06/03/2020 [facility] nter [address] [place] [address] [phone] Appearance, Urine CLOUDY High Clear Color, Urine YELLOW Normal Yellow PH,Urine 6.0 units Normal 5.0-9.0 Specific [place] Urine Auto 1.008 Normal 1.002-1.035 Protein, Urine [...] /LPF Normal 0-1 Laboratory test finding 06/03/2020 [facility] [address] [place] [address] [phone] Urine Culture FULL REPORT IN L <SEE NOTE> Normal 4 Randa Titer & Pattern 06/02/2020 [facility] nter [address] [place] [address] [phone] Randa (Hep2) Negative Normal . 5 Amiodarone Level 06/02/2020 [facility] [address] [address] [phone] Amiodarone (Cordarone) 1.1 ug/mL Normal 1.0-2.5 6 Noramiodarone Level 0.8 ug/mL Low 1.0-2.5 7 FT4&TSH Panel 06/02/2020 [facility] nter [address] [place] [address] [phone] Thyroid Stimulating Hormone 6.210 uIU/ML High 0. 358-3.740 Free T4 1.85 ng/dL High 0.76-1.46 Laboratory test finding 06/02/2020 [place] [id number] [phone] Lipase 82 U/L Normal 73-393 Total Iron Binding Capacit 06/02/[address] [address] [phone] Iron (Fe) 37 g/dL Low 50-170 Total Iron Binding Capacity 223 g/dL Low 250-450 Percent Saturation 16.6 % Normal 13.2-45.0 Laboratory test finding 06/02/2020 [place] [phone] Magnesium Level 1.3 mg/dL Low 1.8-2.4 Basic Metabolic Profile 06/02/[address] [address] [phone] Glucose, Fasting 71 mg/dL Normal 70-100 Blood Urea Nitrogen 6 mg/dL Low 7-18 Creatinine For GFR 0.86 mg/dL Normal 0.55-1.30 Glomerular Filtration Rate > 60.0 Normal >45 8 Sodium Level 126 mEq/L Low 136-145 Potassium Serum 4.4 mEq/L Normal 3.5-5.1 Chloride Level 94 mEq/L Low 98-107 Carbon Dioxide Level 23 mEq/L Normal 21-32 Anion Gap 9 mEq/L Normal 8-16 Calcium Level 8.5 mg/dL Low 8.8-10.2 Liver Profile 06/02/2020 [facility] nter [address] [place] [address] [phone] Ast/Sgot 15 U/L Normal 7-37 Alt/SGPT 14 U/L Normal 12-78 Alkaline Phosphatase 76 U/L Normal 45-117 Bilirubin,Total 0.3 mg/dL Normal 0.2-1.0 Bilirubin,Direct 0.1 mg/dL Normal 0.0-0.2 Total Protein 6.1 GM/DL Low 6.4-8.2 Albumin 2.7 GM/DL Low 3.2-5.2 Albumin/Globulin Ratio 0.8 Low 1.2-2.2 Laboratory test finding 06/02/[address] [address] [phone] C Reactive Protein Quantitativ 0.96 mg/dL High 0 .00-0.30 CBC With Differential 06/02/[address] [address] [phone] White Blood Count 8.6 10 Normal 4.0-10.0 [...] 36.0-66.0 Lymph % 19.6 % Low 24.0-44.0 [place] % 10.1 % High 0.0-5.0 Eos % 6.3 % High 0.0-3.0 Baso % 0.4 % Normal 0.0-1.0 Immature Granulocyte % 0.6 % Normal 0-3.0 Nucleated Red Blood Cell % 0.0 % Normal 0-0 Neutrophils # 5.4 10 Normal 1.5-8.5 Lymph # 1.7 10 Normal 1.5-5.0 [place] # 0.9 10 High 0.0-0.8 Eos # 0.5 10 Normal 0.0-0.5 Baso # 0.0 10 Normal 0.0-0.2 Laboratory test finding 04/02/2020 [facility] Outpatient T esting (Registration) [address] [place] [address] [phone] Partial Thromboplastin Time 108.7 seconds High 2 5.0-38.4 Laboratory test finding 04/02/2020 [facility] Outpatient T esting (Registration) [address] [place] [address] [phone] Partial Thromboplastin Time 45.1 seconds High 25 .0-38.4 Laboratory test finding 04/02/2020 [facility] Outpatient T esting (Registration) [address] [place] [address] [phone] Partial Thromboplastin Time 95.8 seconds High 25 .0-38.4 1 Units are mL/min/1.73 m2 Chronic Kidney Disease Staging per NKF: Stage I & II GFR >=60 Normal to Mildly Decreased Stage III GFR 30-59 Moderately Decreased Stage IV GFR 15-29 Severely Decreased Stage V GFR <15 Very Little GFR Left ESRD GFR <15 on DIRECTOR MARKETING 2 THERAPUTIC HUMAN INR VALUES INDICATIONS NORMAL [...] Little GFR Left ESRD GFR <15 on DIRECTOR MARKETING 4 FULL REPORT IN LAB NOTES (eC [...] BETA LACTAMASE IV NEGATIVE FOR ESBL 5 Negative <1:80 Borderline 1:80 Positive >1:80 Performed at: [facility] [address] [id number] Punching Machine Operator: Javier Scott MD, Phone: [phone] Performed at: [facility] [id number] Punching Machine Operator: Tammy Sarmiento MD, Phone: [phone] This test was developed and its performance characteristics determined by [employer]. It has not been cleared or approved by the Food and Drug Administration. Detection Limit = 0.2 7 This test was developed and its performance characteristics determined by [employer]. It has not been cleared or approved by the Food and Drug Administration. Detection Limit = 0.2 8 Units are mL/min/1.73 m2 Chronic Kidney Disease Staging per NKF: Stage I & II GFR >=60 Normal to Mildly Decreased Stage III GFR 30-59 Moderately Decreased Stage IV GFR 15-29 Severely Decreased Stage V GFR <15 Very Little GFR Left ESRD GFR <15 on DIRECTOR MARKETING Procedures Description No Information Available Medical Devices Description No Information Available Encounters Type Date Location Provider Dx Diagnosis Office Visit 09/30/2020 1:30p [facility] LEVI Metzger S20.20xA Contusion of thorax, unspeci fied, initial encounter M54.5 Low back pain Office Visit 09/25/2020 4:00p [facility] LEVI Ramon R25.8 Other abnormal involuntary m ovements R26.9 Unspecified abnormalities of gait and mobility Z79.899 Other terminal operator (current) dr stiven marshall Z79.01 terminal operator (current) use of a nticoagulants Office Visit 09/09/2020 3:30p [facility] LEVI Ramon R26.9 Unspecified abnormalities of gait and mobility I10 Essential (primary) hyperten opal I48.0 Paroxysmal atrial fibrillati on I49.5 Sick sinus syndrome M79.7 Fibromyalgia F33.0 Major depressive disorder, r ecurrent, mild E78.2 Mixed hyperlipidemia G47.8 Other sleep disorders Z79.899 Other group home (current) dr stiven marshall Z79.82 terminal operator (current) use of a spirin Z79.01 skilled nursing (current) use of a nticoagulants Office Visit 08/07/2020 1:00p [facility] LEVI Ramon R06.00 Dyspnea, unspecified Office Visit 07/23/2020 10:00a [facility] LEVI Metzger I10 Essential (primary) hyperten opal I48.0 Paroxysmal atrial fibrillati on M79.7 Fibromyalgia S42.201D Unsp fx upper end of r yolanda , subs for fx w [facility] Office Visit 07/03/2020 3:00p [facility] LEVI Ramon E44.1 Mild protein-calorie malnutr ition R06.00 Dyspnea, unspecified Z79.899 Other group home (current) dr stiven marshall Z79.82 terminal operator (current) use of a spirin K21.9 Gastro-esophageal reflux dis ease without esophagitis F33.0 Major depressive disorder, r ecurrent, mild Office Visit 06/19/2020 1:30p [facility] LEVI Ramon E87.1 Hypo-osmolality and hyponatr emia E83.42 Hypomagnesemia E44.1 Mild protein-calorie malnutr ition Z79.82 terminal operator (current) use of a spirin Z79.899 Other terminal operator (current) dr stiven marshall R06.00 Dyspnea, unspecified Office Visit 05/29/2020 2:40p [facility] LEVI Metzger R10.84 Generalized abdominal pain I48.0 Paroxysmal atrial fibrillati on 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 Assessments Date Code Description Provider 09/30/2020 S20.20xA Contusion of thorax, unspecified , initial encounter LEVI Metzger 09/30/2020 M54.5 Low back pain LEVI Metzger 09/25/2020 R25.8 Other abnormal involuntary movem ents LEVI Metzger 09/25/2020 R26.9 Unspecified abnormalities of gai t and mobility LEVI Metzger 09/25/2020 Z79.899 Other terminal operator (current) drug t herapy LEVI Metzger 09/25/2020 Z79.01 terminal operator (current) use of antic oagulants LEVI Metzger [...] sleep disorders LEVI Nguyen 09/09/2020 Z79.899 Other group home (current) drug t herapy LEVI Metzger 09/09/2020 Z79.82 terminal operator (current) use of aspir in LEVI Metzger 09/09/2020 Z79.01 terminal operator (current) use of antic oagulants LEVI Metzger [...] Dyspnea, unspecified LEVI Ortiz 07/03/2020 Z79.899 Other group home (current) drug t herapy LEVI Metzger 07/03/2020 Z79.82 skilled nursing (current) use of aspir in LEVI Metzger 07/03/2020 K21.9 Gastro-esophageal reflux disease without esophagitis LEVI Metzger 07/03/2020 F33.0 Major depressive disorder, recur rent, mild LEVI Metzger 06/19/2020 E87.1 Hypo-osmolality and hyponatremia LEVI Metzger 06/19/2020 E83.42 Hypomagnesemia LEVI Metzger 06/19/2020 E44.1 Mild protein-calorie malnutritio n LEVI Metzger 06/19/2020 Z79.82 terminal operator (current) use of aspir in LEVI Metzger 06/19/2020 Z79.899 Other group home (current) drug t herapy LEVI Metzger 06/19/2020 R06.00 Dyspnea, unspecified LEVI Ortiz 05/29/2020 R10.84 Generalized abdominal pain Jatinder LEVI Johnson 05/29/2020 I48.0 Paroxysmal atrial fibrillation M LEVI Baker 05/29/2020 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 Take up to 2 valium every 6 hours to help with muscle pains. apply warm compresses. * M54.5 Low back pain* New Xrays:* Lumbar Spine Complete Min 6 Views Bending, Scheduled: 09/30/20 * Comments:* please get x rays to evaluate for fractures. Functional Status Description No Information Available Mental Status Description No Information Available Referrals Refer to Reason for Referral Status Appt Date Lorenzo Gonzalez M.DKristy Akins has sick sinus syndr ome, paroxysmal atrial [...] evaluate and treat for cerebellar dysfunction. 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 Please evaluate and treat for weakness and deconditioning of LE and her unsteady gait. Please evaluate and treat LUE due to recent fall and pain in left upper arm. Closed [address] [facility] [address] [phone] [facility] had [...] is her right arm in a sling group home with muscle atrophy of the RUE and PT for upper extremity pending ortho clearance. Please evaluate and treat for weakness and deconditioning of LE and her unsteady gait. Please evaluate and treat LUE due to recent fall and pain in left upper arm. Closed [address] [facility] [address] [phone] Chioma Gorman has auto immune disease, recent colectomy, and history of depression which has been worse with her chronic disease. Interested in virtual counseling Sent [address] [facility] [address] [place] [address] [phone]
--- OUTSIDE RECORDS SUMMARY | 2020-10-17 11:59 | CCD | Continuity of Care Document ---
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 08/27 Prednisone 5mg Tablets one tablet [...] for shortness of breath 25.5 gm J20.9 Jaitn Argueta.OKristy 11/29/2019 Pro Comfort Inhaler Spacer Chamber Adult Misc to be used in combination with Mdi 1units Christopher ChaudhryOKristy 11/29/2019 Zolpidem Tartrate 5mg Tablets take one - two tablet by mouth an hour before bedtime as needed. ensure at least 8 hours of sleep istop: [id number] 60tabs Elizabeth Sarkar D.O . 11/15/2019 Gabapentin 300mg Capsules 2 in the am 1 in the pm and 2 at bedtime 270caps Jatin Argueta. O. 07/23/2019 Premarin 0.625mg/GM Cream apply 1/2 gram topically to vagina as needed 90gm N95.2 Elizabeth Linares er, D.O. 02/19/2019 Amlodipine Besylate 5mg Tablets 1 by mouth every day 90tabs Jatin Argueta.O. Liquid Calcium With D3 Maximum Strength [id number] Capsules Unknown 0 Aspirin Ec Low Dose [...] spasm 9tabs Christopher GutiérrezO. 09/22/2020 - 09/25/2020 [facility] Home Sleep Study presence of Nocturnal hypoxia [...] F O2 % BldC Oximetry 94 % [place] Body Weight 100 lb 09/09/2020 3:16pm BP Systolic 136 mmHg BP Diastolic 70 mmHg Height 60.2 inches 5'0.20" Weight 127.00 lb BMI (Body Mass Index) 24.6 kg/m2 Heart Rate 87 /min Respiratory Rate 20 /min Body Temperature 98.7 F O2 % BldC Oximetry 99 % [place] Body Weight 100 lb Results Test Acquired Date Facility Test Result H/L Range Note CBC With Differential 09/19/2020 [facility] Outpatient Sherly cesar (Registration) [address] [place] [address] [phone] White Blood Count 7.5 10 Normal 4.0-10.0 [...] 36.0-66.0 Lymph % 24.8 % Normal 24.0-44.0 Lagrange % 10.1 % High 0.0-5.0 Eos % 2.8 % Normal 0.0-3.0 Baso % 0.7 % Normal 0.0-1.0 Immature Granulocyte % 0.4 % Normal 0-3.0 Nucleated Red Blood Cell % 0.0 % Normal 0-0 Neutrophils # 4.6 10 Normal 1.5-8.5 Lymph # 1.9 10 Normal 1.5-5.0 Lagrange # 0.8 10 Normal 0.0-0.8 Eos # 0.2 10 Normal 0.0-0.5 Baso # 0.1 10 Normal 0.0-0.2 Basic Metabolic Profile 09/19/2020 [facility] Outpatient T esting (Registration) [address] [place] [address] [phone] Glucose, Fasting 95 mg/dL Normal 70-100 Blood [...] mg/dL Normal 8.8-10.2 Laboratory test finding 09/19/2020 [facility] Outpatient T esting (Registration) [address] [place] [address] [phone] CPK Creatine Phosphokinase 88 U/L Normal 26-19 2 Magnesium Level 2.1 mg/dL Normal 1.8-2.4 CBC With Differential 07/04/2020 [facility] Outpatient Sherly ting (Registration) [address] [place] [address] [phone] White Blood Count 7.5 10 Normal 4.0-10.0 [...] 0.0 % Normal 0-0 Prothrombin Time/Inr 07/04/2020 [facility] Outpatient Test ing (Registration) [address] [place] [address] [phone] Prothrombin Time 13.3 seconds Normal 12.5-14.3 Inr 0.99 Normal 2 Liver Profile 07/04/2020 [facility] Outpatient Testi ng (Registration) [address] [place] [address] [phone] Ast/Sgot 13 U/L Normal 7-37 Alt/SGPT 15 U/L Normal 12-78 Alkaline Phosphatase 75 U/L Normal 45-117 Bilirubin,Total 0.2 mg/dL Normal 0.2-1.0 Bilirubin,Direct < 0.1 mg/dL Normal 0.0-0.2 Total Protein 6.4 GM/DL Normal 6.4-8.2 Albumin 3.4 GM/DL Normal 3.2-5.2 Albumin/Globulin Ratio 1.1 Low 1.2-2.2 Basic Metabolic Profile 07/04/2020 [facility] Outpatient T esting (Registration) [address] [place], [place] [address] [phone] Glucose, Fasting 85 mg/dL Normal 70-100 Blood [...] mg/dL Low 8.8-10.2 Laboratory test finding 07/04/2020 [facility] Outpatient T esting (Registration) [address] [place] [address] [phone] Lipase 69 U/L Low 73-393 Differential 07/04/2020 [facility] Outpatient Testi ng (Registration) [address] [place] [address] [phone] Neutrophils 46 % Normal 28-66 Bands 1 % Normal < 11 Lymphocytes 43 % Normal 16-44 Monocytes 4 % Normal 0-5 Eosinophils 4 % High 0-3 Metamyelocytes 2 % High 0-0 Hypochromasia 1+ Normal Anisocytosis 1+ Normal Laboratory test finding 07/04/2020 [facility] Outpatient T esting (Registration) [address] [place] [address] [phone] Platelet Estimate NORMAL Normal Normal Ua Routine 06/03/2020 [facility] [address] [place] [address] [phone] Appearance, Urine CLOUDY High Clear Color, Urine YELLOW Normal Yellow PH,Urine 6.0 units Normal 5.0-9.0 Specific Stigler Urine Auto 1.008 Normal 1.002-1.035 Protein, Urine [...] /LPF Normal 0-1 Laboratory test finding 06/03/2020 [facility] [address] [place] [address] [phone] Urine Culture FULL REPORT IN L <SEE NOTE> Normal 4 Randa Titer & Pattern 06/02/2020 [facility] nter [address] [place] [address] [phone] Randa (Hep2) Negative Normal . 5 Amiodarone Level 06/02/2020 [facility] [place]ter [address] [place] [address] [phone] Amiodarone (Cordarone) 1.1 ug/mL Normal 1.0-2.5 6 Noramiodarone Level 0.8 ug/mL Low 1.0-2.5 7 FT4&TSH Panel 06/02/2020 [facility] [address] [place] [address] [phone] Thyroid Stimulating Hormone 6.210 uIU/ML High 0. 358-3.740 Free T4 1.85 ng/dL High 0.76-1.46 Laboratory test finding 06/02/2020 [place] [id number] [phone] Lipase 82 U/L Normal 73-393 Total Iron Binding Capacit 06/02/[address] [address] [phone] Iron (Fe) 37 g/dL Low 50-170 Total Iron Binding Capacity 223 g/dL Low 250-450 Percent Saturation 16.6 % Normal 13.2-45.0 Laboratory test finding 06/02/2020 [place] [id number] [phone] Magnesium Level 1.3 mg/dL Low 1.8-2.4 Basic Metabolic Profile 06/02/[address] [address] [phone] Glucose, Fasting 71 mg/dL Normal 70-100 Blood [...] 8.5 mg/dL Low 8.8-10.2 Liver Profile 06/02/2020 [facility]ter [address] [place] [address] [phone] Ast/Sgot 15 U/L Normal 7-37 Alt/SGPT 14 U/L Normal 12-78 Alkaline Phosphatase 76 U/L Normal 45-117 Bilirubin,Total 0.3 mg/dL Normal 0.2-1.0 Bilirubin,Direct 0.1 mg/dL Normal 0.0-0.2 Total Protein 6.1 GM/DL Low 6.4-8.2 Albumin 2.7 GM/DL Low 3.2-5.2 Albumin/Globulin Ratio 0.8 Low 1.2-2.2 Laboratory test finding 06/02/[address] [address] [phone] C Reactive Protein Quantitativ 0.96 mg/dL High 0 .00-0.30 CBC With Differential 06/02/[address] [address] [phone] White Blood Count 8.6 10 Normal 4.0-10.0 [...] 36.0-66.0 Lymph % 19.6 % Low 24.0-44.0 Lagrange % 10.1 % High 0.0-5.0 Eos % 6.3 % High 0.0-3.0 Baso % 0.4 % Normal 0.0-1.0 Immature Granulocyte % 0.6 % Normal 0-3.0 Nucleated Red Blood Cell % 0.0 % Normal 0-0 Neutrophils # 5.4 10 Normal 1.5-8.5 Lymph # 1.7 10 Normal 1.5-5.0 Lagrange # 0.9 10 High 0.0-0.8 Eos # 0.5 10 Normal 0.0-0.5 Baso # 0.0 10 Normal 0.0-0.2 Laboratory test finding 04/02/2020 [facility] Outpatient Raman bedolla (Registration) [address] [place] [address] [phone] Partial Thromboplastin Time 108.7 seconds High 2 5.0-38.4 Laboratory test finding 04/02/2020 [facility] Outpatient T esting (Registration) [address] [place] [address] [phone] Partial Thromboplastin Time 45.1 seconds High 25 .0-38.4 Laboratory test finding 04/02/2020 [facility] Outpatient T esting (Registration) [address] [place], [place] [address] [phone] Partial Thromboplastin Time 95.8 seconds High 25 .0-38.4 1 Units are mL/min/1.73 m2 Chronic Kidney Disease Staging per NKF: Stage I & II GFR >=60 Normal to Mildly Decreased Stage III GFR 30-59 Moderately Decreased Stage IV GFR 15-29 Severely Decreased Stage V GFR <15 Very Little GFR Left ESRD GFR <15 on [employer] 2 THERAPUTIC HUMAN INR VALUES INDICATIONS NORMAL [...] Little GFR Left ESRD GFR <15 on [place] 4 FULL REPORT IN LAB NOTES (eC [...] Borderline 1:80 Positive >1:80 Performed at: [facility] [address] [id number] Filling And Stapling Machine Operator: Javier Scott MD, Phone: [phone] Performed at: [facility] [place] [address] [id number] Filling And Stapling Machine Operator: Tammy Sarmiento MD, Phone: [phone] This test was developed and its performance characteristics determined by [employer]. It has not been cleared or approved by the Food and Drug Administration. Detection Limit = 0.2 7 This test was developed and its performance characteristics determined by [employer]. It has not been cleared or approved by the Food and Drug Administration. Detection Limit = 0.2 8 Units are mL/min/1.73 m2 Chronic Kidney Disease Staging per NKF: Stage I & II GFR >=60 Normal to Mildly Decreased Stage III GFR 30-59 Moderately Decreased Stage IV GFR 15-29 Severely Decreased Stage V GFR <15 Very Little GFR Left ESRD GFR <15 on [employer] Procedures Description No Information Available Medical Devices Description No Information Available Encounters Type Date Location Provider Dx Diagnosis Office Visit 09/30/2020 1:30p [facility] LEVI Metzger S20.20xA Contusion of thorax, unspeci fied, initial encounter M54.5 Low back pain Office Visit 09/25/2020 4:00p [facility] Ian O'barney, PA R25.8 Other abnormal involuntary m ovements R26.9 Unspecified abnormalities of gait and mobility Z79.899 Other long-term (current) dr stiven marshall Z79.01 FDC (current) use of a nticoagulants Office Visit 09/09/2020 3:30p [facility] LEVI Metzger R26.9 Unspecified abnormalities of gait and mobility I10 Essential (primary) hyperten opal I48.0 Paroxysmal atrial fibrillati on I49.5 Sick sinus syndrome M79.7 Fibromyalgia F33.0 Major depressive disorder, r ecurrent, mild E78.2 Mixed hyperlipidemia G47.8 Other sleep disorders Z79.899 Other 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 block assembler (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) dr stiven marshall Z79.82 intermediate frame tender (current) use of a spirin Z79.01 intermediate frame tender (current) use of a nticoagulants Office Visit 08/07/2020 1:00p [facility] LEVI Ramon R06.00 Dyspnea, unspecified Office Visit 07/23/2020 10:00a [facility] LEVI Metzger I10 Essential (primary) hyperten opal I48.0 Paroxysmal atrial fibrillati on M79.7 Fibromyalgia S42.201D Unsp fx upper end of christie murdock, subs for fx w [facility] Office Visit 07/03/2020 3:00p [facility] LEVI Metzger E44.1 Mild protein-calorie malnutr ition R06.00 Dyspnea, unspecified Z79.899 Other long-term (current) dr stiven marshall Z79.82 intermediate frame tender (current) use of a spirin K21.9 Gastro-esophageal reflux dis ease without esophagitis F33.0 Major depressive disorder, r ecurrent, mild Office Visit 06/19/2020 1:30p [facility] LEVI Ramon E87.1 Hypo-osmolality and hyponatr emia E83.42 Hypomagnesemia E44.1 Mild protein-calorie malnutr ition Z79.82 FDC (current) use of a spirin Z79.899 Other long-term (current) dr saleem therapy R06.00 Dyspnea, unspecified Office Visit 05/29/2020 2:40p [facility] LEVI Metzger R10.84 Generalized abdominal pain I48.0 Paroxysmal atrial fibrillati on 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 Assessments Date Code Description Provider 09/30/2020 S20.20xA Contusion of thorax, unspecified , initial encounter LEVI Metzger 09/30/2020 M54.5 Low back pain LEVI Metzger 09/25/2020 R25.8 Other abnormal involuntary movem ents LEVI Metzger 09/25/2020 R26.9 Unspecified abnormalities of gai t and mobility LEVI Metzger 09/25/2020 Z79.899 Other terminal block assembler (current) drug t herapy LEVI Metzgre 09/25/2020 Z79.01 intermediate frame tender (current) use of antic oagulants LEVI Metzger 09/09/2020 R26.9 Unspecified abnormalities of gai t and mobility LEVI Metzger 09/09/2020 I10 Essential (primary) hypertension LEVI Metzger 09/09/2020 I48.0 Paroxysmal atrial fibrillation M LEVI Baker 09/09/2020 I49.5 Sick sinus syndrome LEVI Anthony 09/09/2020 M79.7 Fibromyalgia LEVI Metzger 09/09/2020 F33.0 Major depressive disorder, recur rent, mild LEVI Metzger 09/09/2020 E78.2 Mixed hyperlipidemia LEVI Ortiz 09/09/2020 G47.8 Other sleep disorders LEVI Nguyen 09/09/2020 Z79.899 Other terminal block assembler (current) drug t herapy LEVI Metzger 09/09/2020 Z79.82 intermediate frame tender (current) use of aspir in LEVI Metzger 09/09/2020 Z79.01 FDC (current) use of antic oagulants LEVI Metzger [...] Dyspnea, unspecified LEVI Ortiz 07/03/2020 Z79.899 Other terminal block assembler (current) drug t herapy LEVI Metzger 07/03/2020 Z79.82 FDC (current) use of aspir in LEVI Metzger 07/03/2020 K21.9 Gastro-esophageal reflux disease without esophagitis LEVI Metzger 07/03/2020 F33.0 Major depressive disorder, recur rent, mild LEVI Metzger 06/19/2020 E87.1 Hypo-osmolality and hyponatremia LEVI Metzger 06/19/2020 E83.42 Hypomagnesemia LEVI Metzger 06/19/2020 E44.1 Mild protein-calorie malnutritio n LEVI Metzger 06/19/2020 Z79.82 intermediate frame tender (current) use of aspir in LEVI Metzger 06/19/2020 Z79.899 Other long-term (current) drug t herapy LEVI Metzger 06/19/2020 R06.00 Dyspnea, unspecified LEVI Ortiz 05/29/2020 R10.84 Generalized abdominal pain LEVI Figueroa 05/29/2020 I48.0 Paroxysmal atrial fibrillation M LEVI Baker 05/29/2020 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 Please evaluate and treat for weakness and deconditioning of LE and her unsteady gait. Please evaluate and treat LUE due to recent fall and pain in left upper arm. Closed [address] [facility] [address] [phone] [facility] had [...] is her right arm in a sling long-term with muscle atrophy of the RUE and PT for upper extremity pending ortho clearance. Please evaluate and treat for weakness and deconditioning of LE and her unsteady gait. Please evaluate and treat LUE due to recent fall and pain in left upper arm. Closed [address] [facility] [id number] [phone] Chioma Gorman Rosemary has auto immune disease, recent colectomy, and history of depression which has been worse with her chronic disease. Interested in virtual counseling Sent [address] [facility] [address] [place], [place] [id number] [phone]
--- OUTSIDE RECORDS SUMMARY | 2020-10-17 11:59 | CCD | Continuity of Care Document ---
Author Author Mable TILLMAN Organization Unknown Address [place] [address] Phone [phone] Care Team Providers Care Residential Assistant Name Role Phone Elizabeth Sarkar D.O. AUTM [phone] Tonyaben Allen LINE ASSEMBLER-R AUTM [phone] [facility] AUTM [phone] Chioma Gorman AUTM [phone] Marzena Gonzalez AUTM [phone] Problems Active Problems Provider Date Mixed hyperlipidemia [...] at least 8 hours of sleep istop: [id number] 60tabs Jatin Argueta.O . 11/15/2019 Gabapentin 300mg Capsules 2 in the am 1 in the pm and 2 at bedtime 270caps Jatin Argueta. O. 07/23/2019 Premarin 0.625mg/GM Cream apply 1/2 gram topically to vagina as needed 90gm N95.2 Elizabeth Linares er, D.O. 02/19/2019 Amlodipine Besylate 5mg Tablets 1 by mouth every day 90tabs Jatin Argueta.O. Liquid Calcium With D3 Maximum Strength [id number] Capsules Unknown 0 Aspirin Ec Low Dose [...] spasm 9tabs Christopher GutiérrezO. 09/22/2020 - 09/25/2020 [facility] Home Sleep Study presence of Nocturnal [...] F O2 % BldC Oximetry 94 % [place] Body Weight 100 lb 09/09/2020 3:16pm BP Systolic 136 mmHg BP Diastolic 70 mmHg Height 60.2 inches 5'0.20" Weight 127.00 lb BMI (Body Mass Index) 24.6 kg/m2 Heart Rate 87 /min Respiratory Rate 20 /min Body Temperature 98.7 F O2 % BldC Oximetry 99 % [place] Body Weight 100 lb Results Test Acquired Date Facility Test Result H/L Range Note CBC With Differential 09/19/2020 [facility] Outpatient Sherly cesar (Registration) [address] [place] [address] [phone] White Blood Count 7.5 10 Normal 4.0-10.0 [...] 36.0-66.0 Lymph % 24.8 % Normal 24.0-44.0 [place]ergus % 10.1 % High 0.0-5.0 Eos % 2.8 % Normal 0.0-3.0 Baso % 0.7 % Normal 0.0-1.0 Immature Granulocyte % 0.4 % Normal 0-3.0 Nucleated Red Blood Cell % 0.0 % Normal 0-0 Neutrophils # 4.6 10 Normal 1.5-8.5 Lymph # 1.9 10 Normal 1.5-5.0 Fergus # 0.8 10 Normal 0.0-0.8 Eos # 0.2 10 Normal 0.0-0.5 Baso # 0.1 10 Normal 0.0-0.2 Basic Metabolic Profile 09/19/2020 [facility] Outpatient T chioma (Registration) [address] [place] [address] [phone] Glucose, Fasting 95 mg/dL Normal 70-100 Blood [...] mg/dL Normal 8.8-10.2 Laboratory test finding 09/19/2020 [facility] Outpatient T fabioing (Registration) [address] [place] [address] [phone] CPK Creatine Phosphokinase 88 U/L Normal 26-19 2 Magnesium Level 2.1 mg/dL Normal 1.8-2.4 CBC With Differential 07/04/2020 [facility] Outpatient Sherly ting (Registration) [address] [place] [address] [phone] White Blood Count 7.5 10 Normal 4.0-10.0 [...] 0.0 % Normal 0-0 Prothrombin Time/Inr 07/04/2020 [facility] Outpatient Test ing (Registration) [address] [place] [address] [phone] Prothrombin Time 13.3 seconds Normal 12.5-14.3 Inr 0.99 Normal 2 Liver Profile 07/04/2020 [facility] Outpatient Testi ng (Registration) [address] [place] [address] [phone] Ast/Sgot 13 U/L Normal 7-37 Alt/SGPT 15 U/L Normal 12-78 Alkaline Phosphatase 75 U/L Normal 45-117 Bilirubin,Total 0.2 mg/dL Normal 0.2-1.0 Bilirubin,Direct < 0.1 mg/dL Normal 0.0-0.2 Total Protein 6.4 GM/DL Normal 6.4-8.2 Albumin 3.4 GM/DL Normal 3.2-5.2 Albumin/Globulin Ratio 1.1 Low 1.2-2.2 Basic Metabolic Profile 07/04/2020 [facility] Outpatient T esting (Registration) [address] [place] [address] [phone] Glucose, Fasting 85 mg/dL Normal 70-100 Blood [...] mg/dL Low 8.8-10.2 Laboratory test finding 07/04/2020 [facility] Outpatient T esting (Registration) [address] [place] [address] [phone] Lipase 69 U/L Low 73-393 Differential 07/04/2020 [facility] Outpatient Testi ng (Registration) [address] [place] [address] [phone] Neutrophils 46 % Normal 28-66 Bands 1 % Normal < 11 Lymphocytes 43 % Normal 16-44 Monocytes 4 % Normal 0-5 Eosinophils 4 % High 0-3 Metamyelocytes 2 % High 0-0 Hypochromasia 1+ Normal Anisocytosis 1+ Normal Laboratory test finding 07/04/2020 [facility] Outpatient T esting (Registration) [address] [place] [address] [phone] Platelet Estimate NORMAL Normal Normal Ua Routine 06/03/2020 [facility] nter [address] [place] [address] [phone] Appearance, Urine CLOUDY High Clear Color, Urine YELLOW Normal Yellow PH,Urine 6.0 units Normal 5.0-9.0 Specific [place] Urine Auto 1.008 Normal 1.002-1.035 Protein, Urine [...] /LPF Normal 0-1 Laboratory test finding 06/03/2020 [facility] [address] [place] [address] [phone] Urine Culture FULL REPORT IN L <SEE NOTE> Normal 4 Randa Titer & Pattern 06/02/2020 [facility] nter [address] [place] [address] [phone] Randa (Hep2) Negative Normal . 5 Amiodarone Level 06/02/2020 [facility] [address] [address] [phone] Amiodarone (Cordarone) 1.1 ug/mL Normal 1.0-2.5 6 Noramiodarone Level 0.8 ug/mL Low 1.0-2.5 7 FT4&TSH Panel 06/02/2020 [facility] nter [address] [place] [address] [phone] Thyroid Stimulating Hormone 6.210 uIU/ML High 0. 358-3.740 Free T4 1.85 ng/dL High 0.76-1.46 Laboratory test finding 06/02/2020 [place] [id number] [phone] Lipase 82 U/L Normal 73-393 Total Iron Binding Capacit 06/02/[address] [address] [phone] Iron (Fe) 37 g/dL Low 50-170 Total Iron Binding Capacity 223 g/dL Low 250-450 Percent Saturation 16.6 % Normal 13.2-45.0 Laboratory test finding 06/02/2020 [place] [id number] [phone] Magnesium Level 1.3 mg/dL Low 1.8-2.4 Basic Metabolic Profile 06/02/[address] [address] [phone] Glucose, Fasting 71 mg/dL Normal 70-100 Blood [...] 8.5 mg/dL Low 8.8-10.2 Liver Profile 06/02/2020 [facility] nter [address] [place] [address] [phone] Ast/Sgot 15 U/L Normal 7-37 Alt/SGPT 14 U/L Normal 12-78 Alkaline Phosphatase 76 U/L Normal 45-117 Bilirubin,Total 0.3 mg/dL Normal 0.2-1.0 Bilirubin,Direct 0.1 mg/dL Normal 0.0-0.2 Total Protein 6.1 GM/DL Low 6.4-8.2 Albumin 2.7 GM/DL Low 3.2-5.2 Albumin/Globulin Ratio 0.8 Low 1.2-2.2 Laboratory test finding 06/02/[address] [address] [phone] C Reactive Protein Quantitativ 0.96 mg/dL High 0 .00-0.30 CBC With Differential 06/02/[address] [address] [phone] White Blood Count 8.6 10 Normal 4.0-10.0 [...] 36.0-66.0 Lymph % 19.6 % Low 24.0-44.0 Fergus % 10.1 % High 0.0-5.0 Eos % 6.3 % High 0.0-3.0 Baso % 0.4 % Normal 0.0-1.0 Immature Granulocyte % 0.6 % Normal 0-3.0 Nucleated Red Blood Cell % 0.0 % Normal 0-0 Neutrophils # 5.4 10 Normal 1.5-8.5 Lymph # 1.7 10 Normal 1.5-5.0 Fergus # 0.9 10 High 0.0-0.8 Eos # 0.5 10 Normal 0.0-0.5 Baso # 0.0 10 Normal 0.0-0.2 Laboratory test finding 04/02/2020 [facility] Outpatient T esting (Registration) [address] [place] [address] [phone] Partial Thromboplastin Time 108.7 seconds High 2 5.0-38.4 Laboratory test finding 04/02/2020 [facility] Outpatient T esting (Registration) [address] [place] [address] [phone] Partial Thromboplastin Time 45.1 seconds High 25 .0-38.4 Laboratory test finding 04/02/2020 [facility] Outpatient T esting (Registration) [address] [place] [address] [phone] Partial Thromboplastin Time 95.8 seconds High 25 .0-38.4 1 Units are mL/min/1.73 m2 Chronic Kidney Disease Staging per NKF: Stage I & II GFR >=60 Normal to Mildly Decreased Stage III GFR 30-59 Moderately Decreased Stage IV GFR 15-29 Severely Decreased Stage V GFR <15 Very Little GFR Left ESRD GFR <15 on SERVICE STATION HELPER 2 THERAPUTIC HUMAN INR VALUES INDICATIONS NORMAL [...] Little GFR Left ESRD GFR <15 on SERVICE STATION HELPER 4 FULL REPORT IN LAB NOTES (eC [...] <1:80 Borderline 1:80 Positive >1:80 Performed at: [facility] [address] [id number] Superintendent Service: Javier Scott MD, Phone: [phone] Performed at: [facility] [address] [id number] Superintendent Service: Tammy Sarmiento MD, Phone: [phone] This test was developed and its performance characteristics determined by [employer]. It has not been cleared or approved by the Food and Drug Administration. Detection Limit = 0.2 7 This test was developed and its performance characteristics determined by [employer]. It has not been cleared or approved by the Food and Drug Administration. Detection Limit = 0.2 8 Units are mL/min/1.73 m2 Chronic Kidney Disease Staging per NKF: Stage I & II GFR >=60 Normal to Mildly Decreased Stage III GFR 30-59 Moderately Decreased Stage IV GFR 15-29 Severely Decreased Stage V GFR <15 Very Little GFR Left ESRD GFR <15 on SERVICE STATION HELPER Procedures Description No Information Available Medical Devices Description No Information Available Encounters Type Date Location Provider Dx Diagnosis Office Visit 09/30/2020 1:30p [facility] LEVI Metzger S20.20xA Contusion of thorax, unspeci fied, initial encounter M54.5 Low back pain Office Visit 09/25/2020 4:00p [facility] LEVI Ramon R25.8 Other abnormal involuntary m ovements R26.9 Unspecified abnormalities of gait and mobility 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 Z79.01 rehabilitation counselor (current) use of a nticoagulants Office Visit 09/09/2020 3:30p [facility] LEVI Ramon R26.9 Unspecified abnormalities of gait and mobility I10 Essential (primary) hyperten opal I48.0 Paroxysmal atrial fibrillati on I49.5 Sick sinus syndrome M79.7 Fibromyalgia F33.0 Major depressive disorder, r ecurrent, mild E78.2 Mixed hyperlipidemia G47.8 Other sleep disorders Z79.899 Other [facility] (current) dr stiven amrshall Z79.82 rehabilitation counselor (current) use of a spirin Z79.01 custodial (current) use of a nticoagulants Office Visit 08/07/2020 1:00p [facility] LEVI Ramon R06.00 Dyspnea, unspecified Office Visit 07/23/2020 10:00a [facility] LEVI Metzger I10 Essential (primary) hyperten opal I48.0 Paroxysmal atrial fibrillati on M79.7 Fibromyalgia S42.201D Unsp fx upper end of r yolanda , subs for fx w [facility] Office Visit 07/03/2020 3:00p [facility] LEVI Ramon E44.1 Mild protein-calorie malnutr ition R06.00 Dyspnea, unspecified Z79.899 Other [facility] (current) dr stiven marshall Z79.82 rehabilitation counselor (current) use of a spirin K21.9 Gastro-esophageal reflux dis ease without esophagitis F33.0 Major depressive disorder, r ecurrent, mild Office Visit 06/19/2020 1:30p [facility] LEVI Ramon E87.1 Hypo-osmolality and hyponatr emia E83.42 Hypomagnesemia E44.1 Mild protein-calorie malnutr ition Z79.82 rehabilitation counselor (current) use of a spirin 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 R06.00 Dyspnea, unspecified Office Visit 05/29/2020 2:40p [facility] LEVI Metzger R10.84 Generalized abdominal pain I48.0 Paroxysmal atrial fibrillati on 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 Assessments Date Code Description Provider 09/30/2020 S20.20xA Contusion of thorax, unspecified , initial encounter LEVI Metzger 09/30/2020 M54.5 Low back pain LEVI Metzger 09/25/2020 R25.8 Other abnormal involuntary movem ents LEVI Metzger 09/25/2020 R26.9 Unspecified abnormalities of gai t and mobility LEVI Metzger 09/25/2020 Z79.899 Other [employer] (current) drug t herapy LEVI Metzger 09/25/2020 Z79.01 rehabilitation counselor (current) use of antic oagulants LEVI Metzger [...] sleep disorders LEVI Nguyen 09/09/2020 Z79.899 Other [facility] (current) drug t herapy LEVI Metzger 09/09/2020 Z79.82 rehabilitation counselor (current) use of aspir in LEVI Metzger 09/09/2020 Z79.01 rehabilitation counselor (current) use of antic oagulants LEVI Metzger [...] drug t herapy LEVI Metzger 07/03/2020 Z79.82 custodial (current) use of aspir in LEVI Metzger 07/03/2020 K21.9 Gastro-esophageal reflux disease without esophagitis LEVI Metzger 07/03/2020 F33.0 Major depressive disorder, recur rent, mild LEVI Metzger 06/19/2020 E87.1 Hypo-osmolality and hyponatremia LEVI Metzger 06/19/2020 E83.42 Hypomagnesemia LEVI Metzger 06/19/2020 E44.1 Mild protein-calorie malnutritio n LEVI Metzger 06/19/2020 Z79.82 rehabilitation counselor (current) use of aspir in LEVI Metzger [...] [facility] 09/30/2020 - LEVI Metzger* S20.20xA Contusion [...] evaluate and treat for cerebellar dysfunction. 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 Please evaluate and treat for weakness and deconditioning of LE and her unsteady gait. Please evaluate and treat LUE due to recent fall and pain in left upper arm. Closed [address] [facility] [address] [phone] [facility] had [...] and pain in left upper arm. Closed [address] [facility] [address] [phone] Chioma Gorman has auto immune disease, recent colectomy, and history of depression which has been worse with her chronic disease. Interested in virtual counseling Sent [address] [facility] [address] [place] [address] [phone]
--- OUTSIDE RECORDS SUMMARY | 2020-10-17 11:59 | CCD | Continuity of Care Document ---
Author Author Mable IBARRA MD Organization Unknown Address [address] [address] Phone [phone] Care Team Providers Care Insole Doubler Name Role Phone Luis Fernando Banks MD AUT [phone] Problems Description No Information Available Social History [...] Available Procedures Date Code Description Status 09/18/2020 48145 X-Ray Shoulder Complete Complete d 09/09/2020 37540 X-Ray Shoulder Complete Complete d 07/31/2020 49584 X-Ray Shoulder Complete Complete d 07/11/2020 97545 X-Ray Shoulder Complete Complete d 07/06/2020 68029 FX Greater Tuberosity W/O Manipu lation Completed Medical Devices Description No Information Available Encounters Type Date Location Provider Dx Diagnosis Office Visit 09/18/2020 2:30p Campbell Ibarra MD S42. 251D Disp fx of greater tuberosity of r humer, 7thD Office Visit 09/09/2020 2:00p Campbell Ibarra MD [...] 10/09/2020 3:00 pm - Narda Butler at [place] 09/18/2020 - Jama Ibarra MD* S42.251D Displaced fracture of greater tuberosity of right humerus, subsequent encounter for fracture with routine healing* Follow up:* [facility] B[facility] IT MARY with [facility] at current appt on 10/09/20 for mri results Functional Status Description No Information Available Mental Status Description No Information Available Referrals Refer to Dr Reason for Referral Status Appt Date Milind Edwards MD MRI NO AUTH REQUIRED FOR MRI OF RIGHT SHOULDER ([id number]) TO X- RAY. BHAVYA Created [facility] [address] [id number] [phone] Milind Edwards MD MRI NO AUTH REQUIRED FOR MRI OF RIGHT SHOULDER ([id number]) TO X- RAY. BHAVYA Created [facility] [address] [address] [phone] NO AUTH REQUIRED FOR CT OF RIGHT SHOU LDER ([id number]). BHAVYA Created [facility] [address] [address] [phone] NO AUTH REQUIRED FOR CT OF RIGHT SHOU LDER ([id number]). BHAVYA Created [facility] [address] [address] [phone]
--- OUTSIDE RECORDS SUMMARY | 2020-10-17 11:59 | CCD | Continuity of Care Document ---
Author Author Mable HOLLIDAY P.A. Organization Unknown Address [address] [place] [address] Phone [phone] Care Team Providers Care Film Vault Supervisor Name Role Phone Luis Fernando aBnks MD AUTM [phone] Problems Description No Information Available Social History [...] Information Available Procedures Date Code Description Status 10/09/2020 82046 X-Ray Shoulder Complete Complete d 09/18/2020 95808 X-Ray Shoulder Complete Complete d 09/09/2020 99301 X-Ray Shoulder Complete Complete d 07/31/2020 53425 X-Ray Shoulder Complete Complete d 07/11/2020 98141 X-Ray Shoulder Complete Complete d 07/06/2020 79289 FX Greater Tuberosity W/O Manipu lation Completed [...] humerus, init Assessments Date Code Description Provider 10/09/2020 S42.251D Displaced fracture o f greater tuberosity of right humerus, subsequent encounter for fracture with routine healing Ian Holliday, P.A. 10/09/2020 M19.011 Primary osteoarthritis, right sh oulder Ian Holliday, P.A. 10/09/2020 S22.080D Wedge compression fr acture of T11-T12 vertebra, subsequent encounter for fracture with routine healing Ian Holliday, P.A. 10/09/2020 M48.02 Spinal stenosis, cervical region Ian Holliday P.A. 10/09/2020 S46.011A Strain of muscle(s) and tendon(s) of the rotator cuff of right shoulder, initial encounter Jax ButelrA. 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 09/18/2020 S42.251D Displaced fracture o f greater [...] fracture Jama Ibarra MD Plan of Treatment 10/09/2020 - Ian Holliday, P.A.* S42.251D Displaced fracture of greater tuberosity of right humerus, subsequent encounter for fracture with routine healing* Follow up:* after L-spine mri results with [facility] please. 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 BHAVYA Created [address] [address] [phone] Milind Edwards MD MRI NO AUTH REQUIRED FOR MRI OF RIGHT SHOULDER ([id number]) TO X- RAY. BHAVYA Created [facility] [address] [address] [phone] NO AUTH REQUIRED FOR CT OF RIGHT SHOU LDER ([id number]). BHAVYA Created [facility] [address] [address] [phone] NO AUTH REQUIRED FOR CT OF RIGHT SHOU LDER ([id number]). BHAVYA Created [facility] [address] [address] [phone]
--- OUTSIDE RECORDS SUMMARY | 2020-10-17 12:00 | CCD | Continuity of Care Document ---
Author Organization Unknown Address Unknown Phone Unavailable Care Team Providers Care Enrollment Specialist Name Role Phone Shabana Velásquez PA-C AUTM [phone] Lenny Cote DO AUTM [phone] Emiliano Silveira MD AUTM [phone] Delvis Acevedo MD AUTM Chau Ventura MD AUTM [phone] Riley Alvarado MD AUTM [phone] Edilberto Al MD AUTM [phone] Beata Caballero Crna AUTM [phone] Elizabeth Sarkar DO AUTM [phone] Greg Johnson MD AUTM [phone] Problems Active Problems Provider Date Aortic valve [...] Use Consumes Wine 2 glasses yearly - [place] and New Year's ETOH Use Consumes Beer 1 once yearly fo r [employer] Tobacco Use Start: Unknown End: Unknown Patient is a former smoker up to 1/2 ppd from age 16, quit 2017 Smoking Status Reviewed: 09/08/20 Patient is a former smoker up to [...] Facility Test Result H/L Range Note CBC without Differential 09/19/2020 [facility] (315)- - White Blood Count 7.5 4.3-10.9 Red Blood Count 4.44 Low 4.70-6.20 Platelets 236 130-400 Hemoglobin 12.7 Low 13.0-17.0 Hematocrit 39.6 39.0-50.0 BMP 09/19/2020 [facility] ([facility])- - Calcium Ser/Plasma Mass/Vol 9.1 Sodium 139 Carbon Dioxide Ser/Plasm 25 Chloride Serum/Plasma 107 Potassium 3.7 Glucose 95 70-100 Blood Urea Nitrogen 8 5-21 Creatinine 0.87 0.6-1.5 G F R 60.0 Laboratory test finding 09/19/2020 [facility] (315)- - CK Creatine Kinase Ser/Plasma 88 Magnesium Level 2.1 CMP 06/02/2020 [facility] - not interfaced (315)- - Albumin Serum/Plasma 2.7 Alt - SGPT 14 Calcium Ser/Plasma Mass/Vol 8.5 Carbon Dioxide Ser/Plasm 8.5 Chloride Serum/Plasma 94 Alkaline Phosphatase 76 Potassium 4.4 Protein Total 6.1 Sodium 126 Ast - Sgot 15 BUN - Urea Nitrogen 6 Glucose 71 70-100 Creatinine For GFR 6 Laboratory test finding 06/02/2020 [facility] - not interf aced (315)- - Magnesium Level 1.3 Low 1.8-2.4 Tibc/Iron/% Saturation 06/02/2020 [facility] - not interfa dyllan (315)- - Iron 37 Low 50-170 Tibc 223 Tibc % Saturation 16.6 Laboratory test finding 06/02/2020 [facility] - not interf aced (315)- - Thyroid Stimulating Hormone 6.210 High 0.358-3. 740 Free T4 1.85 C-Reactive Protein 0.96 Lipase 82 CBC without Differential 06/02/2020 [facility] - not inter faced (315)- - White Blood Count 8.6 4.0-10.0 Red Blood Count 3.42 Low 4.00-5.40 Platelets 208 172-450 Hemoglobin 9.7 Hematocrit 31.3 Procedures Date Code Description Status 09/08/2020 80460 Arterial Pressure Wa veform Analysis For Assessment Of Central Art Completed 06/05/2020 48790 Arterial Pressure Wa veform Analysis For Assessment Of Central Art Completed 06/05/2020 75978 ECG 12-Lead Completed Medical Devices Description No Information Available Encounters Type Date Location Provider Dx Diagnosis Office Visit 09/08/2020 9:30a Main Office Chau Schulte MD I49.5 Sick sinus syndrome I48.0 Paroxysmal atrial fibrillati on I10 Essential (primary) hyperten opal Office Visit 07/18/2020 4:12p Main Office Chau Schulte MD I48.0 Paroxysmal atrial fibrillation I35.2 Nonrheumatic aortic (valve) stenosis with insufficiency I10 Essential (primary) hyperten opal E78.2 Mixed hyperlipidemia Office Visit 06/06/2020 11:03a Main Office Chau Schulte MD I48.0 Paroxysmal atrial fibrillation I35.2 Nonrheumatic aortic (valve) stenosis with insufficiency I10 Essential (primary) hyperten poal E78.2 Mixed hyperlipidemia Office Visit 06/05/2020 9:30a [...] MD 09/08/2020 I10 Essential (primary) hypertension Chau Schulte MD 08/25/2020 I49.5 Sick sinus syndrome Chau navarro MD 08/25/2020 I48.0 Paroxysmal atrial fibrillation Jatin Schulte MD 08/25/2020 I10 Essential (primary) hypertension Chau Schulte MD 08/25/2020 I35.2 Nonrheumatic aortic (valve) sten osis with insufficiency Chau cShulte MD 07/18/2020 I48.0 Paroxysmal atrial fibrillation D [...] - Chau Schulte MD* I49.5 Sick sinus syndrome* Recommendations:* Implantation of permanent dual-chamber pacemaker was explained to the patient. Also the option of no pacemaker was explained to the patient (risk of syncope and its consequences &/or inability to use medications to adequately control rapid ventricular response). Risks of pacemaker implantation were explained to the patient including, but not all-inclusive: Infection (1%), pneumothorax (1%), bleeding/hematoma, adverse drug reaction, cardiac dysrhythmias, lead dislodgment, cardiac perforation with cardiac tamponade (10/999). Patient was agreeable and signed consent form for implantation of dual-chamber pacemaker and removal of the ILR. Arrangements in progress for patient to undergo implantation of dual chamber pacemaker and removal of the ILR in the near future. She is instructed to hold Eliquis for 3 days prior to surgery. She was instructed to hold amiodarone until following pacemaker implant. Continue to hold carvedilol until following pacemaker implant. * I48.0 Paroxysmal atrial fibrillation* Recommendations:* Continue Eliquis other than to hold Eliquis for 3 days prior to pacemaker surgery. Hold amiodarone 200 mg daily until following pacemaker implant. Continue to hold carvedilol 6.25 mg twice a day until following pacemaker implant. * I10 Essential (primary) hypertension* Recommendations:* Continue amlodipine at the current dosage for now. Following pacemaker implant, I will consider restarting carvedilol. * All * Follow up:* 1. Book [...]
--- OUTSIDE RECORDS SUMMARY | 2020-10-17 12:00 | CCD | Continuity of Care Document ---
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 Name Role Phone Shabana Velásquez PA-C AUTM [phone] Lenny Cote DO AUTM [phone] Emiliano Silveira MD AUTM [phone] Delvis Acevedo MD AUTM [phone] Chau Ventura MD AUTM [phone] Riley Alvarado MD AUTM [phone] Edilberto Al MD AUTM [phone] Beata Caballero Crna AUTM [phone] Elizabeth Sarkar DO AUTM Greg Johnson MD AUTM [phone] Problems Active Problems Provider Date Aortic valve [...] Schulte MD Onset: 1 Sinus node dysfunction hCau Schulte MD Onset: 1 Social History Type [...] age 16, quit 2016 Smoking Status Reviewed: 09/08/20 Patient is a [...] Test Result H/L Range Note CMP 06/02/2020 [facility] - not interfaced (315)- - Albumin Serum/Plasma 2.7 Alt - SGPT 14 Calcium Ser/Plasma Mass/Vol 8.5 Carbon Dioxide Ser/Plasm 8.5 Chloride Serum/Plasma 94 Alkaline Phosphatase 76 Potassium 4.4 Protein Total 6.1 Sodium 126 Ast - Sgot 15 BUN - Urea Nitrogen 6 Glucose 71 70-100 Creatinine For GFR 6 Laboratory test finding 06/02/2020 [facility] - not interf aced (315)- - Magnesium Level 1.3 Low 1.8-2.4 Tibc/Iron/% Saturation 06/02/2020 [facility] - not interfa dyllan (315)- - Iron 37 Low 50-170 Tibc 223 Tibc % Saturation 16.6 Laboratory test finding 06/02/2020 [facility] - not interf aced (315)- - Thyroid Stimulating Hormone 6.210 High 0.358-3. 740 Free T4 1.85 C-Reactive Protein 0.96 Lipase 82 CBC without Differential 06/02/2020 [facility] - not inter faced (315)- - White Blood Count 8.6 4.0-10.0 Red Blood Count 3.42 Low 4.00-5.40 Platelets 208 172-450 Hemoglobin 9.7 Hematocrit 31.3 Procedures Date Code Description Status 09/08/2020 15870 Arterial Pressure Wa veform Analysis For Assessment Of Central Art Completed 06/05/2020 43944 Arterial Pressure Wa veform Analysis For Assessment Of Central Art Completed 06/05/2020 37002 ECG 12-Lead Completed Medical Devices Description No [...] navarro MD 08/25/2020 I48.0 Paroxysmal atrial fibrillation D nisha Schulte MD 08/25/2020 I10 Essential (primary) hypertension Chau Schulte MD 08/25/2020 I35.2 Nonrheumatic aortic (valve) sten osis with insufficiency Chau Schulte MD 07/18/2020 I48.0 Paroxysmal atrial fibrillation D [...] MD 06/05/2020 I48.0 Paroxysmal atrial fibrillation D avijennifer Schulte MD 06/05/2020 I35.2 Nonrheumatic aortic (valve) [...]
--- OUTSIDE RECORDS SUMMARY | 2020-10-17 12:00 | CCD | Continuity of Care Document ---
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 Name Role Phone Luis Fernando Banks MD AUT [phone] Problems Description No Information Available Social History [...] Available Procedures Date Code Description Status 09/18/2020 94340 X-Ray Shoulder Complete Complete d 09/09/2020 88074 X-Ray Shoulder Complete Complete d 07/31/2020 70913 X-Ray Shoulder Complete Complete d 07/11/2020 77672 X-Ray Shoulder Complete Complete d 07/06/2020 66402 FX Greater Tuberosity W/O Manipu lation Completed [...] 10/09/2020 3:00 pm - [facility] at [place] 09/18/2020 - Jama Ibarra MD* S42.251D Displaced fracture of greater tuberosity of right humerus, subsequent encounter for fracture with routine healing* New Xrays:* MRI RT Shoulder, Scheduled: 09/22/20 * Follow up:* [facility] with [facility] at current appt on 10/09/20 for mri results Functional Status Description No Information Available Mental Status Description No Information Available Referrals Refer to Reason for Referral Status Appt Date Milind Edwards MD MRI NO AUTH REQUIRED FOR MRI OF RIGHT SHOULDER ([id number]) TO X- RAY. BHAVYA Created [facility] [place] [address] [phone] Milind Edwards MD MRI NO AUTH REQUIRED FOR MRI OF RIGHT SHOULDER ([id number]) TO X- RAY. BHAVYA Created [facility] [address] [address] [phone] NO AUTH REQUIRED FOR CT OF RIGHT SHOU LDER ([id number]). BHAVYA Created [facility] [address] [address] [phone] NO AUTH REQUIRED FOR CT OF RIGHT SHOU LDER ([id number]). BHAVYA Created [facility] [address] [address] [phone]
--- OUTSIDE RECORDS SUMMARY | 2020-10-17 12:02 | CCD ---
Author Author [facility] Organization [facility] Address Unknown Phone Unavailable Care Team Providers Care Patient Biller Name Role Phone Desiree'barney, Brianna Arnoldo PA Unavailable Unavailable O'barney, A Arnoldo PA Unavailable Unavailable O'barney, A Arnoldo PA Unavailable Unavailable O'barney, A Arnoldo PA Unavailable Unavailable O'barney, A Arnoldo PA Unavailable Unavailable O'barney, A Arnoldo PA Unavailable Unavailable O'barney, A Arnoldo PA Unavailable Unavailable O'barney, A Arnoldo PA Unavailable Unavailable O'barney, A Arnoldo PA Unavailable Unavailable O'barney, A Arnoldo PA Unavailable Unavailable O'barney, A Arnoldo PA Unavailable Unavailable O'barney, A Arnoldo PA Unavailable Unavailable O'barney, A Arnoldo PA Unavailable Unavailable O'barney, A Arnoldo PA Unavailable Unavailable O'barney, A Arnoldo PA Unavailable Unavailable O'barney, A Arnoldo PA Unavailable Unavailable O'barney, A Arnoldo PA Unavailable Unavailable O'barney, A Arnoldo PA Unavailable Unavailable O'barney, A Arnoldo PA Unavailable Unavailable O'barney, A Arnoldo PA Unavailable Unavailable O'barney, A Arnoldo PA Unavailable Unavailable O'barney, A Arnoldo PA Unavailable Unavailable O'barney, A Arnoldo PA Unavailable Unavailable O'barney, A Arnoldo PA Unavailable Unavailable O'barney, A Arnoldo PA Unavailable Unavailable O'barney, A Arnoldo PA Unavailable Unavailable O'barney, A Arnoldo PA Unavailable Unavailable O'barney, A Arnoldo PA Unavailable Unavailable O'barney, A Arnoldo PA Unavailable Unavailable O'barney, A Arnoldo PA Unavailable Unavailable O'barney, A Arnoldo PA Unavailable Unavailable O'barney, A Arnoldo PA Unavailable Unavailable O'barney, Brianna SIMS Unavailable [...] ANTECOL, Tatiana HARDEN MD Unavailable Unavailable ANTECOL, H DERECK MD Unavailable Unavailable AUGUST, L KIRA MD Unavailable Unavailable DRESHER, L KIRA MD Unavailable Unavailable DRESHER, L KIRA MD Unavailable Unavailable AUGUST, L KIRA MD Unavailable Unavailable DRESHER, L KIRA MD Unavailable Unavailable AUGUST, L KIRA MD Unavailable Unavailable AUGUST, L KIRA MD Unavailable Unavailable AUGUST, L KIRA MD Unavailable Unavailable AUGUST, L KIRA MD Unavailable Unavailable DRESHER, L KIRA MD Unavailable Unavailable AUGUST, L KIRA MD Unavailable Unavailable AUGUST, L KIRA MD Unavailable Unavailable DRESHER, L KIRA MD Unavailable Unavailable DRESHER, L KIRA MD Unavailable Unavailable DRESHER, L KIRA MD Unavailable Unavailable DRESHER, L KIRA MD Unavailable Unavailable DRESHER, L KIRA MD Unavailable Unavailable DRESHER, L KIRA MD Unavailable Unavailable DRESHER, L KIRA MD Unavailable Unavailable DRESHER, L KIRA MD Unavailable Unavailable DRESHER, L KIRA MD Unavailable Unavailable DRESHER, L KIRA MD Unavailable Unavailable DRESHER, L KIRA MD Unavailable Unavailable DRESHER, L KIRA MD Unavailable Unavailable DRESHER, L KIRA MD Unavailable Unavailable DRESHER, L KIRA MD Unavailable Unavailable DRESHER, L KIRA MD Unavailable Unavailable DRESHER, L KIRA MD Unavailable Unavailable DRESHER, L KIRA MD Unavailable Unavailable DRESHER, L KIRA MD Unavailable Unavailable DRESHER, L KIRA MD Unavailable Unavailable DRESHER, L KIRA MD Unavailable Unavailable DRESHER, L KIRA MD Unavailable Unavailable DRESHER, L KIRA MD Unavailable Unavailable DRESHER, L KIRA MD Unavailable Unavailable DRESHER, L KIRA MD Unavailable Unavailable DRESHER, L KIRA MD Unavailable Unavailable DRESHER, L KIRA MD Unavailable Unavailable DRESHER, L KIRA MD Unavailable Unavailable DRESHER, L KIRA MD Unavailable Unavailable DRESHER, L KIRA MD Unavailable Unavailable DRESHER, L KIRA MD Unavailable Unavailable DRESHER, L KIRA MD Unavailable Unavailable DRESHER, L KIRA MD Unavailable Unavailable DRESHER, L KIRA MD Unavailable Unavailable DRESHER, L KIRA MD Unavailable Unavailable DRESHER, L KIRA MD Unavailable Unavailable DRESHER, L KIRA MD Unavailable Unavailable DRESHER, L KIRA MD Unavailable Unavailable DRESHER, L KIRA MD Unavailable Unavailable DRESHER, L KIRA MD Unavailable Unavailable DRESHER, L KIRA MD Unavailable Unavailable DRESHER, L KIRA MD Unavailable Unavailable DRESHER, L KIRA MD Unavailable Unavailable DRESHER, L IKRA MD Unavailable Unavailable DRESHER, L KIRA MD Unavailable Unavailable DRESHER, L KIRA MD Unavailable Unavailable DRESHER, L KIRA MD Unavailable Unavailable DRESHER, L KIRA MD Unavailable Unavailable DRESHER, L KIRA MD Unavailable Unavailable DRESHER, L KIRA MD Unavailable Unavailable DRESHER, L KIRA MD Unavailable Unavailable AUGUST, L KIRA MD Unavailable Unavailable DRESHER, L KIRA MENDEZ Unavailable Unavailable AUGUST, L [...] Unavailable Unavailable Justin, Milind PA Unavailable Unavailable Jusitn, Milind PA Unavailable Unavailable Justin, Milind PA Unavailable Unavailable Justin, Milind PA Unavailable Unavailable Justin, Milind PA Unavailable Unavailable Justin, Milind PA Unavailable Unavailable Justin, Milind PA Unavailable Unavailable Justin, Milind PA Unavailable Unavailable Jusitn, Milind PA Unavailable Unavailable Justin, Milind PA [...] Unavailable Desiree REHMAN MD Unavailable Unavailable Desiree RHEMAN MD Unavailable Unavailable Desiree REHMAN MD Unavailable Unavailable ORI, O ALIZA MD Unavailable Unavailable ORI, O ALIZA MD Unavailable Unavailable ORI, O ALIZA MD Unavailable Unavailable ORI, O ALIZA MD Unavailable Unavailable ORI, O ALIZA MD Unavailable Unavailable ORI, O ALIZA MD Unavailable Unavailable ORI, O ALIZA MD Unavailable Unavailable ORI, O ALIZA MD Unavailable Unavailable ORI, O ALIZA MD Unavailable Unavailable ORI, O ALIZA MD Unavailable Unavailable ORI, O ALIZA MD Unavailable Unavailable ORI, O ALIZA MD Unavailable Unavailable ORI, O ALIZA MD Unavailable Unavailable ORI, O ALIZA MD Unavailable Unavailable ORI, O ALIZA MD Unavailable Unavailable ORI, O ALIZA MD Unavailable Unavailable ORI, O ALIZA MD Unavailable Unavailable ORI, O ALIZA MD Unavailable Unavailable ORI, O ALIZA MD Unavailable Unavailable ORI, O ALIZA MD Unavailable Unavailable ORI, O ALIZA MD Unavailable Unavailable ORI, O ALIZA MD Unavailable Unavailable ORI, O ALIZA MD Unavailable Unavailable ORI, O ALIZA MD Unavailable Unavailable ORI, O ALIZA MD Unavailable Unavailable ORI, O ALIZA MD Unavailable Unavailable ORI, O ALIZA MD Unavailable Unavailable ORI, O ALIZA MD Unavailable Unavailable ORI, O ALIZA MD Unavailable Unavailable ORI, O ALIZA MD Unavailable Unavailable ORI, O ALIZA MD Unavailable Unavailable ORI, O ALIZA MD Unavailable Unavailable ORI, O ALIZA MD Unavailable Unavailable ORI, O ALIZA MD Unavailable Unavailable ORI, O ALIZA MD Unavailable Unavailable ORI, O ALIZA MD Unavailable Unavailable FARRELL,LOREN JORGITO Unavailable Unavailable FARRELL,LOREN JORGITO Unavailable Unavailable FARRELL,LOREN JORGITO Unavailable Unavailable FARRELL,LOREN JORGITO Unavailable Unavailable FARRELL,LOREN JORGITO Unavailable Unavailable FARRELL,LOREN JORGITO Unavailable Unavailable FARRELL,LOREN JORGITO Unavailable Unavailable FARRELL,LOREN JORGITO Unavailable Unavailable FARRELL,LOREN JORGITO Unavailable Unavailable FARRELL,LOREN JORGITO Unavailable Unavailable FARRELL,LOREN JORGITO Unavailable Unavailable FARRELL,LOREN JORGITO Unavailable Unavailable JASWANT MERRILL MD Unavailable Unavailable JASWANT MERRILL MD Unavailable Unavailable JASWANT MERRILL MD Unavailable Unavailable JASWANT MERRILL MD Unavailable Unavailable JASWANT MERRILL MD Unavailable Unavailable JASWANT MERRILL MD Unavailable Unavailable JASWANT MERRILL MD Unavailable Unavailable JASWANT MERRILL MD Unavailable Unavailable JASWANT MERRILL MD Unavailable Unavailable JASWANT MERRILL MD Unavailable Unavailable JASWANT MERRILL MD Unavailable Unavailable JASWANT MERRILL MD Unavailable Unavailable JASWANT MERRILL MD Unavailable Unavailable JASWANT MERRILL MD Unavailable Unavailable JASWANT MERRILL MD Unavailable Unavailable JASWANT MERRILL MD Unavailable Unavailable JASWANT MERRILL MD Unavailable Unavailable JASWANT MERRILL MD Unavailable Unavailable JASWANT MERRILL MD Unavailable Unavailable JASWANT MERRILL MD Unavailable Unavailable JASWANT MERRILL MD Unavailable Unavailable JASWANT MERRILL MD Unavailable Unavailable JASWANT MERRILL MD Unavailable Unavailable JASWANT MERRILL MD Unavailable Unavailable JASWANT MERRILL MD Unavailable Unavailable JASWANT MERRILL MD Unavailable Unavailable JASWANT MERRILL MD Unavailable Unavailable JASWANT MERRILL MD Unavailable Unavailable JASWANT MERRILL MD Unavailable Unavailable JASWANT MERRILL MD Unavailable Unavailable JASWANT MERRILL MD Unavailable Unavailable JASWANT MERRILL MD Unavailable Unavailable JASWANT MERRILL MD Unavailable Unavailable JASWANT MERRILL MD Unavailable Unavailable JASWANT MERRILL MD Unavailable Unavailable JASWANT MERRILL MD Unavailable Unavailable JASWANT MERRILL MD Unavailable Unavailable JASWANT MERRILL MD Unavailable Unavailable JASWANT MERRILL MD Unavailable Unavailable JASWANT MERRILL MD Unavailable Unavailable JASWANT MERRILL MD Unavailable Unavailable JASWANT MERRILL MD Unavailable Unavailable JASWANT MERRILL MD Unavailable Unavailable JASWANT MERRILL MD Unavailable Unavailable JASWANT MERRILL MD Unavailable Unavailable JASWANT MERRILL MD Unavailable Unavailable JASWANT MERRILL MD Unavailable Unavailable JASWANT MERRILL MD Unavailable Unavailable JASWANT MERRILL MD Unavailable Unavailable JASWANT MERRILL MD Unavailable Unavailable JASWANT MERRILL MD Unavailable Unavailable JASWANT MERRILL MD Unavailable Unavailable JASWANT MERRILL MD Unavailable Unavailable JASWANT MERRILL MD Unavailable Unavailable JASWANT MERRILL MD Unavailable Unavailable JASWANT MERRILL MD Unavailable Unavailable JASWANT MERRILL MD Unavailable Unavailable JASWANT MERRILL MD Unavailable Unavailable JASWANT MERRILL MD Unavailable Unavailable JASWANT MERRILL MD Unavailable Unavailable JASWANT MERRILL MD Unavailable Unavailable JASWANT MERRILL MD Unavailable Unavailable JASWANT MERRILL MD Unavailable Unavailable JASWANT MERRILL MD Unavailable Unavailable JASWANT MERRILL MD Unavailable Unavailable JASWANT MERRILL MD Unavailable Unavailable JASWANT MERRILL MD Unavailable Unavailable JASWANT MERRILL MD Unavailable Unavailable JASWANT MERRILL MD Unavailable Unavailable JASWANT MERRILL MD Unavailable Unavailable JASWANT MERRILL MD Unavailable Unavailable JASWANT MERRILL MD Unavailable Unavailable JASWANT MERRILL MD Unavailable Unavailable JASWANT MERRILL MD Unavailable Unavailable JASWANT MERRILL MD Unavailable Unavailable JASWANT MERRILL MD Unavailable Unavailable JASWANT MERRILL MD Unavailable Unavailable JASWANT MERRILL MD Unavailable Unavailable JASWANT MERRILL MD Unavailable Unavailable JASWANT MERRILL MD Unavailable Unavailable JASWANT MERRILL MD Unavailable Unavailable JASWANT MERRILL MD Unavailable Unavailable JASWANT MERRILL MD Unavailable Unavailable JASWANT MERRILL MD Unavailable Unavailable MCELHERAN, ARNOLDO PA Unavailable Unavailable MCELHERAN, ARNOLDO PA Unavailable Unavailable MCELHERAN, ARNOLDO PA Unavailable Unavailable MCELHERAN, ARNOLDO PA Unavailable Unavailable MCELHERAN, ARNOLDO PA Unavailable Unavailable MCELHERAN, ARNOLDO PA Unavailable Unavailable MCELHERAN, ARNOLDO PA Unavailable Unavailable MCELHERAN, ARNOLDO PA Unavailable Unavailable MCELHERAN, ARNOLDO PA Unavailable Unavailable MCELHERAN, ARNOLDO PA Unavailable Unavailable MCELHERAN, ARNOLDO PA Unavailable Unavailable MCELHERAN, ARNOLDO PA Unavailable Unavailable MCELHERAN, ARNOLDO PA Unavailable Unavailable MCELHERAN, ARNOLDO PA Unavailable Unavailable MCELHERAN, ARNOLDO PA Unavailable Unavailable MCELHERAN, ARNOLDO PA Unavailable Unavailable MCELHERAN, ARNOLDO PA Unavailable Unavailable MCELAN, ARNOLDO PA Unavailable Unavailable MCELAN, ARNOLDO PA Unavailable Unavailable MCELAN, ARNOLDO PA Unavailable Unavailable MCELAN, ARNOLDO PA Unavailable Unavailable MCELHERAN, ARNOLDO PA Unavailable Unavailable MCELAN, ARNOLDO PA Unavailable Unavailable MCELHERAN, ARNOLDO PA Unavailable Unavailable MCELHERAN, ARNOLDO PA Unavailable Unavailable MCELHERAN, ARNOLDO PA Unavailable Unavailable MCELHERAN, ARNOLDO PA Unavailable Unavailable MCELHERAN, ARNOLDO PA Unavailable Unavailable ARNOLDO LIAO Unavailable Unavailable Hansel Gilbert MD Unavailable Unavailable Gilbert, Hansel Carlos MD Unavailable Unavailable Gilbert, Hansel Gonzalez MD Unavailable Unavailable Gilbert, Hansel Gonzalez MD Unavailable Unavailable Gilbert, Hansel Carlos MD Unavailable Unavailable Gilbert, Hansel Carlos MD Unavailable Unavailable Gilbert, Hansel Carlos MD Unavailable Unavailable Gilbert, Hansel Carlos MD Unavailable Unavailable Gilbert, Hansel Carlos MD Unavailable Unavailable Gilbert, Hansel Carlos MD Unavailable Unavailable Gilbert, Hansel Carlos MD Unavailable Unavailable Gilbert, Hnasel Carlos MD Unavailable Unavailable Gilbert, Hansel Carlos MD Unavailable Unavailable Gilbert, Hansel Carlos MD Unavailable Unavailable Gilbert, Hansel Carlos MD Unavailable Unavailable Gilbert, Hansel Gonzalez MD Unavailable Unavailable Gilbert, Hansel Gonzalez MD Unavailable Unavailable Gilbert, Hansel Gonzalez MD Unavailable Unavailable Gilbert, Hansel Gonzalez MD Unavailable Unavailable Gilbert, Hansel Gonzalez MD Unavailable Unavailable Gilbert, Hansel Carlos MD Unavailable Unavailable Gilbert, Hansel Carlos MD Unavailable Unavailable Gilbert, Hansel Gonzalez MD Unavailable Unavailable Gilbert, Hansel Gonzalez MD Unavailable Unavailable Gilbert, Hansel Gonzalez MD Unavailable Unavailable Gilbert, Hansel Gonzalez MD Unavailable Unavailable Gilbert, Hansel Gonzalez MD Unavailable Unavailable Gilbert, Hansel Gonzalez MD Unavailable Unavailable Gilbert, Hansel Gonzalez MD Unavailable Unavailable Gilbert, Hansel Gonzalez MD Unavailable Unavailable Gilbert, Hansel Gonzalez MD Unavailable Unavailable Gilbert, Hansel Gonzalez MD Unavailable Unavailable Gilbert, Hansel Gonzalez MD Unavailable Unavailable Gilbert, Hansel Gonzalez MD Unavailable Unavailable Gilbert, Hansel Gonzalez MD Unavailable Unavailable Gilbert, Hansel Gonzalez MD Unavailable Unavailable Gilbert, Hansel Gonzalez MD Unavailable Unavailable Gilbert, Hansel Gonzalez MD Unavailable Unavailable Gilbert, Hansel Gonzalez MD Unavailable Unavailable Gilbert, Hansel Gonzalez MD Unavailable Unavailable Gilbert, Hansel Gonzalez MD Unavailable Unavailable Gilbert, Hansel Gonzalez MD Unavailable Unavailable Gilbert, Hansel Gonzalez MD Unavailable Unavailable Gilbert, Hansel Gonzalez MD Unavailable Unavailable Gilbert, Hansel Gonzalez MD Unavailable Unavailable Gilbert, Hansel Gonzalez MD Unavailable Unavailable Gilbert, Hansel Gonzalez MD Unavailable Unavailable GlibertHansel MD Unavailable Unavailable Gilbert, Hansel Gonzalez MD Unavailable Unavailable Gilbert, Hansel Gonzalez MD Unavailable Unavailable Gilbert, Hansel Gonzalez MD Unavailable Unavailable LOREN IBARRA MD Unavailable [...] LOREN IBARRA MD Unavailable Unavailable O'barney, A Arnoldo PA Unavailable Unavailable O'barney, A Arnoldo PA Unavailable Unavailable O'barney, A Arnoldo PA Unavailable Unavailable O'barney, A Arnoldo PA Unavailable Unavailable O'barney, A Arnoldo PA Unavailable Unavailable O'barney, A Arnoldo PA Unavailable Unavailable O'barney, A Arnoldo PA Unavailable Unavailable O'barney, A Arnoldo PA Unavailable Unavailable O'barney, A Arnoldo PA Unavailable Unavailable O'barney, A Arnoldo PA Unavailable Unavailable O'barney, A Arnoldo PA Unavailable Unavailable O'barney, A Arnoldo PA Unavailable Unavailable O'barney, A Arnoldo PA Unavailable Unavailable O'barney, A Arnoldo PA Unavailable Unavailable O'barney, A Arnoldo PA Unavailable Unavailable O'barney, A Arnoldo PA Unavailable Unavailable O'barney, A Arnoldo PA Unavailable Unavailable O'barney, A Arnoldo PA Unavailable Unavailable O'barney, A Arnoldo PA Unavailable Unavailable O'barney, A Arnoldo PA Unavailable Unavailable O'barney, A Arnoldo PA Unavailable Unavailable O'barney, A Arnoldo PA Unavailable Unavailable O'barney, A Arnoldo PA Unavailable Unavailable O'barney, A Arnoldo PA Unavailable Unavailable O'barney, A Arnoldo PA Unavailable Unavailable O'barney, A Arnoldo PA Unavailable Unavailable O'barney, A Arnoldo PA Unavailable Unavailable O'barney, A Arnoldo PA Unavailable Unavailable O'barney, A Arnoldo PA Unavailable Unavailable O'barney, A Arnoldo PA Unavailable Unavailable O'abrney, A Arnoldo PA Unavailable Unavailable O'barney, A Arnoldo PA Unavailable Unavailable O'barney, A Arnoldo PA Unavailable Unavailable LOREN IBARRA MD Unavailable Unavailable LOREN IBARRA MD Unavailable Unavailable LOREN IBARRA MD Unavailable Unavailable LOREN IBARRA MD Unavailable Unavailable LOREN IBARRA MD Unavailable Unavailable LOREN IBARRA MD Unavailable Unavailable LOREN IBARRA MD Unavailable Unavailable MARKWITH, LOREN MD Unavailable Unavailable MARKWITH, LOREN MD Unavailable Unavailable MARKWITH, LOREN MD Unavailable Unavailable MARKWITH, LOREN MD Unavailable Unavailable MARKWITH, LOREN MD Unavailable Unavailable MARKWITH, LOREN MD Unavailable Unavailable MARKWITH, LOREN MD Unavailable Unavailable MARKWITH, LOREN MD Unavailable Unavailable MARKWITH, LOREN MD Unavailable Unavailable MARKWITH, LOREN MD Unavailable Unavailable MARKWITH, LOREN MD Unavailable Unavailable MARKWITH, LOREN MD Unavailable Unavailable MARKWITH, LOREN MD Unavailable Unavailable MARKWITH, LOREN MD Unavailable Unavailable MARKWITH, LOREN MD Unavailable Unavailable MARKWITH, LOREN MD Unavailable Unavailable MARKWITH, LOREN MD Unavailable Unavailable MARKWITH, LOREN MD Unavailable Unavailable MARKWITH, LOREN MD Unavailable Unavailable MARKWITH, LOREN MD Unavailable Unavailable MARKWITH, LOREN MD Unavailable Unavailable MARKWITH, LOREN MD Unavailable Unavailable MARKWITH, LOREN MD Unavailable Unavailable MARKWITH, LOREN MD Unavailable Unavailable MARKWITH, LOREN MD Unavailable Unavailable MARKWITH, LOREN MD Unavailable Unavailable Re-disclosure Warning The records that [...] is protected by Article 27-F of the [facility] Public Health law. If you continue you may have access to information: Regarding HIV / AIDS; Provided by facilities licensed or operated by the [facility] Office of Mental Health; or Provided by the [facility] Office for People With Developmental Disabilities. If such information is present, then the following [facility] mandated warning applies: This information has [...] law may result in a fine or long term sentence or both. A general authorization for the release of medical or other information is NOT sufficient authorization for further disc losure. Allergies and Adverse Reactions Type Description Substance Reaction Status Data Source(s ) Drug allergy ALENDRONATE SODIUM ALENDRONATE SODIUM [facility] Family History Family Member Name Family Member Gender Family Member Status Date o f Status Description Data Source(s) Unknown Male Problem [facility] ([facility]) Unknown Unknown Problem [facility] Unknown Male Problem [facility] Unknown Male Problem [facility] ([facility] Unknown Male Problem [facility] ([facility]) Unknown Male Problem [facility] ([facility]) Unknown Male Problem [facility] ([facility]) Encounters Encounter Providers Location Date Indications Data Source(s ) Outpatient Attender: CELY MERRILL MD 02/16/2021 12:00:00 A [facility] Outpatient Attender: ARNOLDO GIPSON PAConsultant: JORGITO SARMIENTO, 10/16/2020 10:22:30 AM EST - 10/17/2020 08:13:00 AM [facility] Patient discharged. Outpatient Attender: Arnoldo SIMS [facility] 10/10/2020 07:30:00 AM EST [facility] ([facility]) Outpatient Attender: ARNOLDO LIAOConsultant: JORGITO FARRELL, 10/03/2020 11:12:00 AM EST - 10/03/2020 12:12:00 PM [facility] Patient discharged. Outpatient Attender: Arnoldo SIMS [facility] 09/30/2020 12:30:00 PM EST [facility] ([facility]) Outpatient Attender: Arnoldo SIMS [facility] 09/25/2020 03:00:00 PM EST [facility] ([facility]) Outpatient Attender: LOREN IBARRA MDConsultant: JORGITO COLEMAN, 09/22/2020 07:28:00 AM EST - 09/22/2020 08:28:00 AM [facility] Office Visit Attender: LOREN IBARRA MD Physical Therapy 01:30:00 PM EST [facility] ([facility]) Outpatient Attender: Arnoldo SIMS [facility] 09/09/2020 02:30:00 PM EST [facility] ([facility]) Office Visit Attender: LOREN IBARRA MD Physical Therapy 01:00:00 PM EST [facility] ([facility]) Outpatient Attender: DERECK MORALES MD Main Office 09/08/2020 08:30:00 AM EST [facility] ([facility]) Outpatient Attender: Arnoldo SIMS [facility] 08/07/2020 12:00:00 PM EST [facility] ([facility]) Office Visit Attender: LOREN IBARRA MD Physical Therapy 09:00:00 AM EST [facility] ([facility]) Outpatient Attender: Arnoldo SIMS [facility] 07/23/2020 09:00:00 AM EST [facility] ([facility]) Office Visit Attender: DERECK MORALES MD Main Office 07/18/2020 03: 12:00 PM EST [facility] ([facility]) Outpatient Attender: KIRA PORTEReferrer: Milind SIMS 07/17/2020 12:00:00 AM [facility] Office Visit Attender: LOREN IBARRA MD Physical Therapy 08:00:00 AM EST [facility] ([facility]) Outpatient Attender: Carlos Noriega/Fabio/Harris/R eindl 07/08/2020 01:30:00 PM EST [facility] ([facility] Office Visit Attender: ALIZA Noriega/Fabio/Harris/Re indl 07/07/2020 08:00:00 AM EST [facility] ([facility]) Outpatient Attender: LOREN IBARRA MD Physical Therapy 02:54:00 PM EST [facility] ([facility]) Outpatient Attender: Arnoldo SIMS [facility] 07/03/2020 02:00:00 PM EST [facility] ([facility]) Outpatient Attender: Arnoldo SIMS [facility] 06/19/2020 01:30:00 PM EDT [facility] ([facility]) Office Visit Attender: ALIZA Noriega/Fabio/Harris/Re indl 06/11/2020 11:45:00 AM EDT [facility] ([facility]) Office Visit Attender: DERECK MORALES MD Main Office 06/06/2020 11: 03:00 AM EDT [facility] ([facility]) Outpatient Attender: DERECK MORALES MD Main Office 06/05/2020 09:30:00 AM EDT [facility] ([facility]) Outpatient Attender: Arnoldo SIMS [facility] 05/29/2020 02:40:00 PM EDT [facility] ([facility]) Outpatient Attender: Carlos Noriega/[place]/Harris/R eindl 04/02/2020 01:23:00 AM EDT [facility] ([facility]) Outpatient Attender: Carlos Noriega/Fabio/Harris/R eindl 04/01/2020 01:23:00 AM EDT [facility] ([facility]) Outpatient Attender: Carlos Noriega/Fabio/Harris/R eindl 03/31/2020 01:23:00 AM EDT [facility] ([facility] Outpatient Attender: Carlos Noriega/Fabio/Harris/R eindl 03/30/2020 01:23:00 AM EDT [facility] ([facility] Outpatient Attender: Carlos Noriega/Fabio/Harris/R eindl 03/29/2020 01:23:00 AM EDT [facility] ([facility] Outpatient Attender: Carlos Noriega/Fabio/Harris/R eindl 03/28/2020 01:23:00 AM EDT [facility] ([facility]) Outpatient Attender: CELY MERRILL MD 03/11/2020 12:00:00 [facility] Outpatient Attender: CELY MERRILL MDReferrer: THONG MOSLEY DO [id number] 02/18/2020 12:00:00 AM EDT - 02/18/2020 10:38:33 AM ED T Rheumatoid arthritis without rheumatoid factor, unspecified site [facility] Rheumatoid arthritis without rheumatoid factor, unspecified site [facility] [address] [place] [id number] 01/10/2020 12:00:00 AM EDT eCW1 ([facility]) Outpatient Attender: Arnoldo SIMS [facility] 12/28/2019 01:00:00 PM EDT [facility] ([facility]) Outpatient Attender: Arnoldo SIMS [facility] 12/18/2019 02:30:00 PM EDT [facility] ([facility]) Outpatient Attender: Arnoldo SIMS [facility] 12/04/2019 03:40:00 PM EDT [facility] ([facility]) Outpatient Referrer: Arnoldo SIMS 11/29/2019 03:11:0 0 PM EDT [facility] Outpatient Referrer: Arnoldo SIMS 11/29/2019 03:11:0 0 PM EDT [facility] Outpatient Referrer: Arnoldo SIMS 11/29/2019 03:11:0 0 PM EDT [facility] Outpatient Referrer: Arnoldo SIMS 11/29/2019 03:04:0 0 PM EDT [facility] Outpatient Attender: Arnoldo SIMS [facility] 11/29/2019 01:20:00 PM EDT [facility] ([facility]) Outpatient Referrer: Arnoldo SIMS 11/27/2019 04:14:0 0 PM EDT [facility] Outpatient Attender: Arnoldo SIMS [facility] 11/07/2019 02:30:00 PM EDT [facility] ([facility]) Outpatient Attender: CELY MERRILL MD [id number] 2019 12:00:00 AM EDT - 11/05/2019 12:38:34 PM EDT Other snf (current) drug therapy [facility] Other snf (current) drug therapy Outpatient Referrer: Arnoldo SIMS 11/01/2019 12:11:0 0 PM [facility] Outpatient Attender: CELY MERRILL MD 10/29/2019 12:00:00 A M [facility] Outpatient Attender: CELY MERRILL MD 10/23/2019 12:00:00 A M [facility] Outpatient Attender: Milind SMIS [facility] 10/18/2019 01:40:00 PM EST [facility] ([facility]) Outpatient Attender: DERECK MORALES MD Main Office 09/18/2019 10:30:00 AM EST [facility] ([facility]) Immunizations Vaccine Date Status Description Data Source(s) COVID-19 VACCINE, MRNA-1273, LNP-S (MODERNA)/PF 09/22/2020 1 2:00:00 AM EST completed [facility] INFLUENZA VACCINE QUADRIVALENT (65 YR UP)/MF59 C.1/PF 06/19/2020 12:00:00 AM EDT completed [facility] Medications Medication Brand Name Start Date Product Form Dose Route Admi nistrative Instructions Pharmacy Instructions Status Indications Reaction Description Data Source(s) Cyclobenzaprine hydrochloride 10 MG Oral Tablet Cyclobenzapr ine HCL 10/10/2020 12:00:00 AM EST ORAL active M EDENT ([facility]) Cyclobenzaprine hydrochloride 10 MG Oral Tablet CYCLOBENZAPR INE HCL 10/10/2020 12:00:00 AM EST tablet 60 TAKE ONE TABLET BY MOUTH TWICE A DAY TAKE ONE TABLET BY MOUTH TWICE A DAY SOLD: 10/10/2020 [facility] 5-325 mg 10/04/2020 12:00:00 AM EST tablet 45 TAKE ONE TABLET BY MOUTH EVERY 4 HOURS (BETWEEN 10/325 DOSE) FOR BREAKTHROUGH PAIN MAXIMUM DAILY DOSE = 2 TABLETS TAKE ONE TABLET BY MOUTH EVERY 4 HOURS ( BETWEEN 10/325 DOSE) FOR BREAKTHROUGH PAIN MAXIMUM DAILY DOSE = 2 TABLETS SOLD: 10/05/2020 [facility] 2 mg 10/04/2020 12:00:00 AM EST tablet 60 TAKE 1-2 TABLETS BY MOUTH EVERY 6 HOURS NEEDED FOR INVOLUNTARY MUSCLE ACTIVITY MAXIMUM DAILY DOSE = 6 TABLETS TAKE 1-2 TABLETS BY MOUTH EVERY 6 HOURS NEEDED FOR INVOLUNTARY MUSCLE ACTIVITY MAXIMUM DAILY DOSE = 6 TABLETS SOLD: 10/05/2020 [facility] 200 unit/actuation 10/04/2020 12:00:00 AM EST spray,non-aero chana 3 SPRAY ONE SPRAY IN ONE NOSTRIL EVERY DAY (ALTERNATING NOSTRILS) SPRAY ONE SPRAY IN ONE NOSTRIL EVERY DAY (ALTERNATING NOSTRILS) SOLD: 10/05/2020 [facility] salmon calcitonin 200 UNT/ACTUAT Nasal [place] Calcitonin (Trace mon) 10/03/2020 12:00:00 AM EST active M [facility] ([facility]) Acetaminophen 325 MG / Hydrocodone Bitartrate 5 MG Ora l Tablet Hydrocodone-Acetaminophen 10/03/2020 12:00:00 AM EST ORAL active [facility] ([facility]) 2 mg 09/26/2020 12:00:00 AM EST tablet 30 TAKE ONE TABLET BY MOUTH EVERY 8 HOURS NEEDED FOR INVOLUNTARY MUSCLE ACTIVITY, MAXIMUM DAILY DOSE = THREE TABLETS TAKE ONE TABLET BY MOUTH EVERY 8 HOURS A S NEEDED FOR INVOLUNTARY MUSCLE ACTIVITY, MAXIMUM DAILY DOSE = THREE TABLETS SOLD: 09/28/2020 [facility] 10-325 mg 09/26/2020 12:00:00 AM EST tablet 240 TAKE 1 & 1/2 TO 2 TABLETS BY MOUTH FOUR TIMES A DAY NEEDED FOR PAIN, MAXIMUM DAILY DOSE = EIGHT TABLETS TAKE 1 & 1/2 TO 2 TABLETS BY MOUTH FOUR TIMES A DAY NEEDED FOR PAIN, MAXIMUM DAILY DOSE = EIGHT TABLETS SOLD: 09/28/2020 [facility] Diazepam 2 MG Oral Tablet [Valium] Valium 09/25/2020 12:00:00 AM EST completed [facility] ([facility]) 5 mg 09/22/2020 12:00:00 AM EST tablet 9 TAKE ONE TABLET BY MOUTH EVERY 8 HOURS NEEDED FOR MUSCLE SPASM , MAXIMUM DAILY DOSE = 3 TABLETS TAKE ONE TABLET BY MOUTH EVERY 8 HOURS NEEDED FOR MUSCLE SPASM , MAXIMUM DAILY DOSE = 3 TABLETS SOLD: 09/22/2020 [facility] Diazepam 5 MG Oral Tablet [Valium] Valium 09/22/2020 12:00:00 AM EST completed [facility] ([facility]) 5 mg 09/19/2020 12:00:00 AM EST tablet 9 TAKE ONE TABLET BY MOUTH THREE TIMES A DAY NEEDED FOR MUSCLE SPASMS MAXIMUM DAILY DOSE = 3 TABLETS TAKE ONE TABLET BY MOUTH THREE TIMES A DAY NEEDED FOR MUSCLE SPASMS MAXIMUM DAILY DOSE = 3 TABLETS SOLD: 09/19/2020 [facility] 5 mg 09/10/2020 12:00:00 AM EST tablet 60 TAKE ONE TO TWO TABLETS BY MOUTH AN HOUR BEFORE BEDTIME NEEDED MAXIMUM DAILY DOSE = TWO TABLETS TAKE ONE TO TWO TABLETS BY MOUTH AN HOUR BEFORE BEDTIME NEEDED MAXIMUM DAILY DOSE = TWO TABLETS SOLD: 09/15/2020 [facility] Jaquelin-bid Probiotic 09/07/2020 12:00:00 AM EST ORAL active [facility] ([facility]) celecoxib 100 MG Oral Capsule Celecoxib 09/07/2020 12:00:00 AM EST ORAL active [facility] ([facility]) Amiodarone hydrochloride 200 MG Oral Tablet Amiodarone HCL 09/07/2020 12:00:00 AM EST ORAL active [facility] ([facility] Furosemide 20 MG Oral Tablet [Lasix] Lasix 09/07/2020 12:00:00 AM EST ORAL active [facility] ([facility] 1 billion cell- 250 mg 09/01/2020 12:00:00 [...] DAILY DOSE = EIGHT TABLETS SOLD: 08/28/2020 [facility] Home Sleep Study 08/27/2020 12:00:00 AM EST completed [facility] ([facility]) Cholestyramine Resin 66.7 MG/ML Oral Suspension Cholestyrami ne 08/27/2020 12:00:00 AM EST active [facility] ([facility]) Prednisone 5 MG Oral Tablet Prednisone 08/25/2020 12:00:00 AM EST ORAL active [facility] ([facility]) Prednisone 20 MG Oral Tablet Prednisone 08/18/2020 12:00:00 AM EST ORAL completed [facility] ([facility]) Nocturnal Oximetry Spo2 Monitor 08/07/2020 12:00:00 AM EST completed [facility] ([facility]) 10-325 mg 08/01/2020 12:00:00 AM EST tablet 240 TAKE 1 & 1/2 TO 2 TABLETS BY MOUTH FOUR TIMES A DAY NEEDED FOR PAIN, MAXIMUM DAILY DOSE = EIGHT TABLETS TAKE 1 & 1/2 TO 2 TABLETS BY MOUTH FOUR TIMES A DAY NEEDED FOR PAIN, MAXIMUM DAILY DOSE = EIGHT TABLETS SOLD: 08/06/2020 [facility] carvedilol 3.125 MG Oral Tablet Carvedilol 07/22/2020 12:00:00 AM EST ORAL completed [facility] ([facility] 5 mg 07/22/2020 12:00:00 AM EST tablet 30 TAKE ONE TABLET BY MOUTH EVERY DAY TAKE ONE TABLET BY MOUTH EVERY DAY SOLD: 07/23/2020 [facility] Amlodipine 5 MG Oral Tablet Amlodipine Besylate 07/22/2020 12:00:00 A M EST ORAL active [facility] ([facility] carvedilol 3.125 MG Oral Tablet Carvedilol 07/18/2020 12:00:00 AM EST ORAL completed [facility] ([facility]) 20 mg 07/08/2020 12:00:00 AM EST tablet 90 TAKE ONE TABLET BY MOUTH EVERY DAY NEEDED FOR EDEMA TAKE ONE TABLET BY MOUTH EVERY DAY NEEDED FOR EDEMA SOLD: 07/08/2020 [facility] Furosemide 20 MG Oral Tablet [Lasix] Lasix 07/08/2020 12:00:00 AM EST ORAL completed [facility] ([facility]) 10-325 mg 07/07/2020 12:00:00 AM EST tablet 240 TAKE 1 & 1/2 TO 2 TABLETS BY MOUTH FOUR TIMES A DAY NEEDED FOR PAIN, MAXIMUM DAILY DOSE = EIGHT TABLETS TAKE 1 & 1/2 TO 2 TABLETS BY MOUTH FOUR TIMES A DAY NEEDED FOR PAIN, MAXIMUM DAILY DOSE = EIGHT TABLETS SOLD: 07/08/2020 [facility] Esomeprazole 40 MG Delayed Release Oral Capsule Esomeprazole Magnesium 07/03/2020 12:00:00 AM EST ORAL active [facility] ([facility]) 120 ACTUAT Fluticasone propionate 0.044 MG/ACTUAT Metered Dose Inhaler [Flovent] Flovent HFA 07/03/2020 12:00:00 AM EST RESPIRATORY completed [facility] ([facility]) 5 mg 06/19/2020 12:00:00 AM EDT tablet 60 TAKE 1 TO 2 TABLETS BY MOUTH ONCE DAILY ONE HOUR BEFORE BEDTIME NEEDED, MAXIMUM DAILY DOSE = TWO TABLETS TAKE 1 TO 2 TABLETS BY MOUTH ONCE DAILY ONE HOUR BEFORE BEDTIME NEEDED, MAXIMUM DAILY DOSE = TWO TABLETS SOLD: 06/19/2020 [facility] Flonase Allergy Relief Flonase Allergy Relief 06/17/2020 12:00:00 AM E DT completed [facility] ([facility]) 50 mcg/actuation 06/17/2020 12:00:00 AM EDT [...] HCL 06/11/2020 12:00 :00 AM EDT ORAL completed [facility] ([facility]) Aspirin 81 MG Delayed Release Oral Tablet Aspirin Ec 2019 12:00:00 AM EDT ORAL active [facility] ( [facility]) apixaban 5 MG Oral Tablet [Eliquis] Eliquis 06/04/2020 12:00:00 AM E DT ORAL active [facility] ([facility]) Lactobacillus acidophilus [id number] UNT Oral Capsule Probiot ic 06/04/2020 12:00:00 AM EDT ORAL completed [facility] ([facility]) Docusate Sodium 100 MG Oral Capsule Docusate Sodium 06/04/2020 1 2:00:00 AM EDT ORAL active [facility] ( [facility]) Ciprofloxacin 500 MG Oral Tablet Ciprofloxacin HCL 06/04/2020 12:00 :00 AM EDT ORAL completed [facility] ([facility]) Bupropion Hydrochloride ER (SR) Bupropion Hydrochloride ER ( SR) 06/04/2020 12:00:00 AM EDT active M [facility] ([facility]) olanzapine 2.5 MG Oral Tablet Olanzapine 06/04/2020 12:00:00 AM EDT ORAL completed [facility] ([facility]) Amiodarone hydrochloride 200 MG Oral Tablet Amiodarone HCL 06/04/2020 12:00:00 AM EDT ORAL completed [facility] ([facility]) Ciprofloxacin 500 MG Oral Tablet [Cipro] Cipro 06/04/2020 12:00:00 AM EDT completed [facility] ([facility]) 24 HR tolterodine tartrate 4 MG Extended Release Oral Capsule Tolterodine Tartrate ER 06/04/2020 12:00:00 AM EDT ORAL active [facility] ([facility]) montelukast 10 MG Oral Tablet Montelukast Sodium 06/04/2020 12:00:00 AM EDT ORAL completed [facility] ([facility] duloxetine 30 MG Delayed Release Oral Capsule Duloxetine HCL 06/04/2020 12:00:00 AM EDT ORAL active [facility] ([facility] NITROFURANTOIN, MACROCRYSTALS 25 MG / Ni trofurantoin, Monohydrate 75 MG Oral Capsule [Macrobid] Macrobid 06/03/2020 12:00:00 AM EDT ORAL completed [facility] ([facility]) Amiodarone hydrochloride 200 MG Oral Tablet AMIODARONE HCL 05/28/2020 12:00:00 AM EDT tablet 30 TAKE ONE TABLET BY MOUTH NIKITA DAY TAKE ONE TABLET BY MOUTH EVERY [...] DAILY DOSE = SIX TABLETS SOLD: 05/26/2020 [facility] 4 gram 05/26/2020 12:00:00 AM EDT powder in packet 60 TAKE 2 GRAMS BY MOUTH DIRECTED 2 TIMES A DAY AT 11AM AND 5PM TAKE 2 GRAMS BY MOUTH DIRECTED 2 TIMES A DAY AT 11AM AND 5PM SOLD: 05/26/2020 [facility] pantoprazole 40 MG Delayed Release Oral Tablet PANTOPRAZOLE SODIUM 05/26/2020 12:00:00 AM EDT tablet,delayed release (DR/EC) 30 T RM ONE TABLET BY MOUTH EVERY DAY TAKE ONE TABLET BY MOUTH EVERY DAY SOLD: 05/26/2020 [facility] Shingrix Shingrix 04/10/2020 12:00:00 AM EDT compl eted [facility] ([facility]) 0.5 ML Streptococcus pneumoniae serotype 1 capsular antigen diphtheria [id number] protein conjugate vaccine 0.0044 MG/ML / Streptococcus pneumoniae serotype 14 capsular antigen diphtheria [id number] protein conjugate vaccine 0.0044 MG/ML / Streptococcus pneumonia Prevnar 13 04/10/2020 12:00:00 AM EDT completed [facility] ([facility]) 5 mg 03/26/2020 12:00:00 AM EDT tablet [...] DAILY DOSE = TWO TABLETS SOLD: 03/26/2020 [facility] 10-325 mg 03/19/2020 12:00:00 AM [...] Benzonatate 01/03/2020 12:00:00 AM EDT completed [facility] ([facility]) 4 mg 12/28/2019 12:00:00 AM EDT tablet 45 TAKE 1-2 TABLETS BY MOUTH EVERY 6 HOURS NEEDED FOR NAUSEA TAKE 1-2 TABLETS BY MOUTH EVERY 6 HOURS NEEDED FOR NAUSEA SOLD: 12/28/2019 [facility] Ondansetron 4 MG Oral Tablet [Zofran] Zofran 12/28/2019 12:00:00 AM EDT ORAL completed [facility] ([facility]) 10-325 mg 12/28/2019 12:00:00 AM EDT tablet [...] 12/18/2019 12:00:00 AM EDT ORAL active [facility] ([facility]) Injection Methylprednisolone Acetate 80 MG 12/04/2019 12:00:00 A M EDT completed [facility] ([facility]) Medication administered onsite Prednisone 10 MG Oral Tablet Prednisone 12/04/2019 12:00:00 AM EDT completed [facility] ([facility]) montelukast 10 MG Oral Tablet [Singulair] Singulair 2019 12:00:00 AM EDT ORAL active [facility] ( [facility]) montelukast 10 MG Oral Tablet MONTELUKAST SODIUM 11/30/2019 12:0 0:00 AM EDT tablet 90 TAKE ONE TABLET BY MOUTH EVERY D AY TAKE ONE TABLET BY MOUTH EVERY DAY SOLD: 11/30/2019 [facility] 90 mcg/actuation 11/29/2019 12:00:00 AM EDT HFA aerosol inha ler 25 INHALE ONE TO TWO PUFFS BY MOUTH EVERY 4 TO 6 HOURS NEEDED FOR SHORTNESS OF BREATH INHALE ONE TO TWO PUFFS BY MOUTH EVERY 4 TO 6 HOURS NEEDED FOR SHORTNESS OF BREATH SOLD: 11/29/2019 [facility] 60 ACTUAT Albuterol 0.09 MG/ACTUAT Metered Dose Inhaler Albu terol Sulfate HFA 11/29/2019 12:00:00 AM EDT RESPIRATORY active [facility] ([facility]) benzonatate 200 MG Oral Capsule Benzonatate 11/29/2019 12:00:00 AM EDT completed [facility] ([facility]) Levofloxacin 750 MG Oral Tablet [Levaquin] Levaquin 11/28 12:00:00 AM EDT ORAL completed [facility] ([facility]) 750 mg 11/29/2019 12:00:00 AM EDT tablet 7 TAKE ONE TABLET BY MOUTH ONCE DAILY FOR 7 DAYS TAKE ONE TABLET BY MOUTH ONCE DAILY FOR 7 DAYS SOLD: 0 11/29/2019 [facility] benzonatate 200 MG Oral Capsule BENZONATATE 11/29/2019 12:00:00 AM EDT capsule 60 TAKE ONE CAPSULE BY MOUTH EVERY 8 HOURS NEEDED FOR HELP CONTROL COUGH TAKE ONE CAPSULE BY MOUTH EVERY 8 HOURS NEEDED FOR HELP CONTROL COUGH SOLD: 11/29/2019 [facility] Pro Comfort Inhaler Spacer Chamber Adult 11/29/2019 12:00:00 AM EDT active [facility] ([facility]) INHALER, ASSIST DEVICES 11/29/2019 12:00:00 AM EDT [...] 12:00:00 AM EDT ORAL active [facility] ( [facility]) 5 mg 11/15/2019 12:00:00 AM EDT [...] viscous 2 %, Benadryl 12.5 mg/5 mL [facility] [id number] 10/22/2019 12:00:00 AM EST Suspension 120 SWISH AND SPIT 5ML EVERY 8 HOURS NEEDED SWISH AND SPIT 5ML EVERY 8 HOURS NEEDED SOLD: 10/22/2019 [facility] 10-325 mg 10/22/2019 12:00:00 AM EST [...] EST ORAL active [facility] ([facility] gabapentin 300 MG Oral Capsule Gabapentin 09/17/2019 12:00:00 AM EST ORAL active [facility] ([facility]) Amlodipine 5 MG Oral Tablet Amlodipine Besylate 09/17/2019 12:00:00 A M EST ORAL active [facility] ([facility] 10-325 mg 08/18/2019 12:00:00 AM EST tablet 120 TAKE ONE TABLET BY MOUTH FOUR TIMES A DAY NEEDED, MAXIMUM DAILY DOSE = FOUR TABLETS TAKE ONE TABLET BY MOUTH FOUR TIMES A DAY NEEDED, MAXIMUM DAILY DOSE = FOUR TABLETS SOLD: 08/24/2019 [facility] Alendronic acid 70 MG Oral Tablet [Fosamax] Fosamax 11/2018 12:00:00 AM EST ORAL completed [facility] ([facility]) 24 HR Bupropion Hydrochloride 150 MG Extended Release Oral Tablet [Wellbutrin] Wellbutrin XL 07/23/2019 12:00:00 AM EST ORAL completed [facility] ([facility]) Zolpidem tartrate 10 MG Oral Tablet Zolpidem Tartrate 06/30 12:00:00 AM EST completed [facility] ([facility]) Folic Acid 1 MG Oral Tablet folic acid (FOLVITE) 1 MG tablet folic acid (FOLVITE) 1 MG tablet 06/19/2019 12:00:00 AM EDT 2 mg Oral aborted Take 2 tablets by mouth daily [facility] Diphenhydramine Hydrochloride 25 MG Oral Tablet Sleep-Tabs 05/13/2019 12:00:00 AM EDT ORAL completed [facility] ([facility]) gabapentin 100 MG Oral Capsule Gabapentin 05/13/2019 12:00:00 AM EDT ORAL completed [facility] ([facility] Folic Acid 1 MG Oral Tablet folic acid (FOLVITE) 1 MG tablet folic acid (FOLVITE) 1 MG tablet 03/27/2019 12:00:00 AM EDT 2 mg Oral aborted Take 2 tablets by mouth daily [facility] Insurance Providers Payer name Policy type / Coverage type Policy ID Covered alliance party ID Covered alliance party's relationship to wiggins Policy W[employer]ins Plan Information FOR LIFE [id number] MEDICARE [id number] SP [id number] W64 FOR LIFE -O/P [id number] 01 [id number] MEDICARE PART A -O/P [id number] FOR LIFE U [id number] Self [id number] MEDICARE A [id number] Self [id number] W64 FOR LIFE O [id number] S [id number] MEDICARE C [id number] S [id number] W64 U [id number] Spouse [id number] FOR LIFE [id number] [employer] [id number] S [id number] MEDICARE [id number] SP [id number] ANSI-Not a Secondary Insurance [id number] ANSI-Medicare Part B [id number] ANSI-Commercial [id number] ANSI-Commercial [id number] ANSI-Medicare Part B [id number] ANSI-Not a Secondary Insurance [id number] For Life [facility] Part B [id number] Family Dependent [id number] Medicare [place] Primary [id number] Self [id number] ANSI-Commercial [id number] ANSI-Not a Secondary Insurance [id number] ANSI-Medicare Part B [id number] ANSI-Commercial [id number] ANSI-Not a Secondary Insurance [id number] ANSI-Medicare Part B [id number] For Life [facility] Part B [id number] Family Dependent [id number] Medicare [place] Medicare Primary [id number] Self [id number] ANSI-Not a Secondary Insurance [id number] ANSI-Medicare Part B [id number] ANSI-Commercial [id number] ANSI-Not a Secondary Insurance [id number] ANSI-Medicare Part B [id number] ANSI-Commercial [id number] ANSI-Commercial [id number] ANSI-Medicare Part B [id number] ANSI-Not a Secondary Insurance [id number] ANSI-Commercial [id number] ANSI-Not a Secondary Insurance [id number] ANSI-Medicare Part B [id number] ANSI-Not a Secondary Insurance [id number] ANSI-Commercial [id number] ANSI-Medicare Part B [id number] For Life - [employer] Med[employer]ap Part B [id number] Family Dependent [id number] Medicare (Part B) Medicare Primary [id number] Self [id number] [employer] Health Maintenance Organization (HMO) [id number] For Life - [employer] Medigap Part B [id number] Family Dependent [id number] Medicare (Part B) Medicare Primary [id number] Self [id number] [facility] Health Maintenance Organization (HMO) [id number] ANSI-Commercial [id number] ANSI-Not a Secondary Insurance [id number] ANSI-Medicare Part B [id number] ANSI-Commercial [id number] ANSI-Not a Secondary Insurance [id number] ANSI-Medicare Part B [id number] ANSI-Commercial [id number] ANSI-Not a Secondary Insurance [id number] ANSI-Medicare Part B [id number] For Life F [id number] SELF 0 [id number] Medicare C [id number] SELF [id number] [id number] FOR LIFE O UNAVAILABLE P U NAVAILABLE MEDICARE C UNAVAILABLE S UNAVAILA BLE ANSI-Medicare Part B [id number] ANSI-Not a Secondary Insurance [id number] [facility] [id number] [facility] [id number] ANSI-Not a Secondary Insurance [id number] ANSI-Medicare Part B [id number] ANSI-Medicare Part B [id number] ANSI-Not a Secondary Insurance [id number] ANSI-Medicare Part B [id number] ANSI-Not a Secondary Insurance [id number] ANSI-Not a Secondary Insurance [id number] ANSI-Medicare Part B [id number] U [id number] Self [id number] [address] (2018) Commercial [id number] Self [id number] Prime Commercial [id number] 000 [id number] [place] [id number] HU2 [id number] [facility] HUMANA [id number] 2 [id number] [place] O [id number] P [id number] [facility] [place] O [id number] P [id number] [facility] [place] [id number] HU2 [id number] U [id number] Spouse [id number] [employer]/ AD O [id number] P [id number] [facility] [employer] Service Commercial [id number] Family Depend ent [id number] [facility] [id number] 01 [id number] [facility] [place] [id number] HU2 [id number] Prime - [facility] Health Maintenance Organization ([facility] [place]) [id number] Spo [id number] [facility] [id number] HU2 [id number] [facility]/ AD O [id number] P [id number] [facility] [employer] Service Commercial Family Depend ent [facility] [place] [place] P [id number] S [id number] [facility] O [id number] U 07 [id number] [facility] O [id number] U 07 [id number] Problems, Conditions, and Diagnoses Code Display Name Description Problem Type Effective Dates Data Source(s) 74185043 Sinus node dysfunction Sinus node dysfunction Problem 09/08/2020 12:00:00 AM EST [facility] ([facility]) [id number] Mild recurrent major depression Mild recurrent m ajor depression Problem 07/03/2020 12:00:00 AM EST [facility] ([facility]) [id number] Paroxysmal atrial fibrillation Paroxysmal atrial fibri llation Problem 06/05/2020 12:00:00 AM EDT [facility] ([facility]) [id number] Paroxysmal atrial fibrillation Paroxysmal atrial fibri llation Problem 05/29/2020 12:00:00 AM EDT [facility] ([facility]) 49944421 Essential hypertension Essential hypertension Problem 05/28/2020 12:00:00 AM EDT [facility] ([facility] ) [id number] Edema Edema Problem 09/18/2019 12:00:00 AM ES T [facility] ([facility]) M4802 Spinal stenosis, cervical region Spinal stenosis , cervical region Diagnosis 10/03/2020 11:12:00 AM [facility] M160 Bilateral primary osteoarthritis of hip Bilateral primary osteoarthritis of hip Diagnosis 10/03/2020 11:12:00 AM [facility] [id number] Collapsed vertebra, not else where classified, thoracic region, initial encounter for fracture Collapsed vertebra, not elsewhere classi fied, thoracic region, initial encounter for fracture Diagnosis 10/03/2020 11:12:00 A [facility] I517 Cardiomegaly Cardiomegaly Diagnosis 10/03/2020 11:12:00 [facility] M545 Low back pain Low back pain Diagnosis 10/03/2020 11:12:00 AM [facility] [id number] Contusion of thorax, unspecified, initia l encounter Contusion of thorax, unspecified, initial encounter Diagnosis 10/03/2020 11:12:00 AM [facility] R269 Unspecified abnormalities of gait and mo bility Unspecified abnormalities of gait and mobility Diagnosis 10/03/2020 11:12:00 AM [facility] R937 Abnormal findings on diagnos tic imaging of other parts of musculoskeletal system Abnormal findings on diagnostic imaging of other parts of musculoskeletal system Diagnosis 09/22/2020 07:28:00 AM [facility] A45959 Effusion, right shoulder Effusion, right shoulder Diag nosis 09/22/2020 07:28:00 AM [facility] F80528V Displaced fracture of greate r tuberosity of right humerus, subsequent encounter for fracture with routine healing Displaced fracture of greater tuberosity of right humerus, subsequent encounter for fracture with routine healing Diagnosis 09/22/2020 07:28:00 AM [facility] G89.29 Other chronic pain Other chronic pain Diagnosis 10:17:06 AM [facility] M54.5 Low back pain Low back pain Diagnosis 02/18/2020 10:17:06 AM [facility] 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 O ther snf (current) drug therapy Diagnosis 11/05/2019 11:32:36 AM Health system Surgeries/Procedures Procedure Description Date Indications Data Source(s) RADEX SHOULDER COMPLETE MINIMUM 2 VIEWS 10/09/2020 12: 00:00 AM EST [facility] ([facility] ) RADEX SHOULDER COMPLETE MINIMUM 2 VIEWS 09/18/2020 12: 00:00 AM EST [facility] ([facility] ) RADEX SHOULDER COMPLETE MINIMUM 2 VIEWS 09/09/2020 12: 00:00 AM EST [facility] ([facility]) Arterial Pressure Waveform Analysis For Assessment Of Centra l Art 09/08/2020 12:00:00 AM EST [facility] ([facility]) RADEX SHOULDER COMPLETE MINIMUM 2 VIEWS 07/31/2020 12: 00:00 AM EST [facility] ([facility]) RADEX SHOULDER COMPLETE MINIMUM 2 VIEWS 07/11/2020 12: 00:00 AM EST [facility] ([facility]) FX Greater Tuberosity W/O Manipulation 07/06/2020 12:0 0:00 AM EST [facility] ([facility]) ECG ROUTINE ECG W/LEAST 12 LDS W/I&R 06/05/2020 12:00: 00 AM EDT [facility] ([facility]) Arterial Pressure Waveform Analysis For Assessment Of Centra l Art 06/05/2020 12:00:00 AM EDT [facility] ([facility]) REVJ ILEOSTOMY COMPLIC RCNSTJ IN-DEPTH SPX 05/09/2020 12:00:00 AM EDT [facility] ([facility]) Arterial Pressure Waveform Analysis For Assessment Of Centra l Art 09/18/2019 12:00:00 AM EST [facility] ([facility]) Results ID Date Data Source [id number] 10/12/2020 12:00:00 PM ADRI SALDANA Name Value Range Interpretation Code Description Data Aby rce(s) Supporting Document(s) SARS coronavirus 2 RNA Not Detected [facility] [place] This lab was ordered by [facility] and reported by [facility]. ID Date Data Source [id number] 10/06/2020 10:18:00 AM EST [facility] [address] [place] [address] PHONE: [phone] FAX: [phone] Name .................. : MICHAEL PANCHALTatiana Loya Acct Number.................. : [id number] ROOM. ................. : Number ................... : [id number] Stay type ............. : O/P Discharge Date......... ... : 10/03/20 Admit Date ......... : 10/03/20 Admit Phys .................... : [facility] Date of ....... : 1955 Family Phys ................... : JAMI JORGITO Phone .................. : [phone] Age ................................ : 65 Film# .................. .:[id number] Sex ................................. : F Unsigned transcriptions are preliminary reports and do not represent a medical or legal document MRA HEAD W/O CONTRAST [id number] COMPLETE:10/03/20 14:53 [facility] 3687 (REASON FOR PROCEDURE INCREASED CEREBELLAR DYSFUNCTION MRA OF THE BRAIN WITHOUT CONTRAST: CLINICAL HISTORY: Increased cerebellar dysfunction. FINDINGS: No hemodynamically significant obstructing lesions are noted. No vascular occlusions are present. No aneurysms are identified. Incidentally noted is the left posterior cerebral artery originating from the left posterior communicating artery. IMPRESSION: Normal examination. Electronically Reviewed and Signed By Arnoldo De Leon MD , 10/06/20 10:18, [facility] Transcribe Initials: GIRISH , Transcribe Date: 10/04/20 00:51, Dictation Date: Copy for: KESHAWN MCLAUGHLIN via fax Copy for: [address] [place] [address] Page 1 of 1 Name Value Range Interpretation Code Description Data Aby rce(s) Supporting Document(s) ID Date Data Source [id number] 10/06/2020 10:16:00 AM EST [facility] [address] [place] [address] PHONE: [phone] FAX: [phone] Name .................. : [facility] : [id number] ROOM. ................. : Number ................... : [id number] Stay type ............. : O/P Discharge Date......... ... : 10/03/20 Admit Date ......... : 10/03/20 Admit Phys .................... : KESHAWN [facility] Date of ....... : 1955 Family Phys ................... : JAMI BULL Phone .................. : [phone] Age ................................ : 65 Film# .................. .:[id number] Sex ................................. : F Unsigned transcriptions are preliminary reports and do not represent a medical or legal document MRI BRAIN W/O CONTRAST 21776 COMPLETE:10/03/20 11:18 3688 (REASON FOR PROCEDURE INCREASED CEREBELLAR DYSFUNCTION MRI OF THE BRAIN WITHOUT CONTRAST, 10/03/20: INDICATION: Increased cerebellar dysfunction. FINDINGS: There is extensive abnormal signal in the michael and periventricular white matter consistent with small vessel ischemic change. The ventricles are dilated out of proportion to sulci. This is compatible with atrophy versus normal pressure hydrocephalus. There is mild vermian atrophy. No bleeding is present. Midline symmetry is preserved. IMPRESSION: Mild vermian atrophy. Extensive small vessel ischemic change. Ventricular dilatation. Diagnostic considerations include atrophy versus normal pressure hydrocephalus. Electronically Reviewed and Signed By Arnoldo De Leon MD , 10/06/20 10:16, [facility] Transcribe Initials: SSR, Transcribe Date: 10/03/20 13:46, Dictation Date: Copy for: KESHAWN MCLAUGHLIN via fax Copy for: [address] [place] [address] Page 1 of 1 Name Value Range Interpretation Code Description Data Aby rce(s) Supporting Document(s) ID Date Data Source [id number] 10/06/2020 10:16:00 AM EST [facility] [address] [place] [address] PHONE: [phone] FAX: [phone] Name .................. : MICHAEL Loya Acct Number.................. : [id number] ROOM. ................. : MR Number ................... : [id number] Stay type ............. : O/P Discharge Date......... ... : 10/03/20 Admit Date ......... : 10/03/20 Admit Phys .................... : [facility] Date of ....... : 1955 Family Phys ................... : [employer] Phone .................. : [phone] Age ................................ : 65 Film# .................. .:[id number] Sex ................................. : F Unsigned transcriptions are preliminary reports and do not represent a medical or legal document MRI CERVICAL SPINE W/O CONTRA 36373 COMPLETE:10/03/20 11:18 3689 (SPINE PROC REASON: INCREASED CEREBELLAR DYSFUNCTION MRI CERVICAL SPINE WITHOUT CONTRAST, 10/03/20: INDICATION: Increased cerebellar dysfunction. FINDINGS: The base is status post anterior fusion of C4, C5, and C6. At C3-4, there is a moderate disc protrusion with posterior cervical spondylosis and moderately severe spinal stenosis. At C6-7, there is a mild bulging annulus. There is mild posterior spondylosis. The cervical cord is normal in size and signal. There may be mild atrophy at the cerebellar vermis. The remainder of the exam is unremarkable. IMPRESSION: Moderately severe spinal stenosis at C3-4 related to a moderate disc protrusion with posterior spondylosis. Mild bulging annulus at C6-7. Electronically Reviewed and Signed By Arnoldo De Leon MD , 10/06/20 10:16, [facility] Transcribe Initials: SSR, Transcribe Date: 10/03/20 13:33, Dictation Date: Page 1 of 2 [facility] [address] [place] [address] PHONE: [phone] FAX: [phone] Name .................. : MICHAEL DUY Loya Acct Number.................. : [id number] ROOM. ................. : Number ................... : [id number] Stay type ............. : O/P Discharge Date......... ... : 10/03/20 Admit Date ......... : 10/03/20 Admit Phys .................... : [facility] Date of ....... : 1955 Family Phys ................... : JAMI JORGITO Phone .................. : [phone] Age ................................ : 65 Film# .................. .:[id number] Sex ................................. : F Unsigned transcriptions are preliminary reports and do not represent a medical or legal document MRI CERVICAL SPINE W/O CONTRA [id number] COMPLETE:10/03/20 11:18 3689 (SPINE PROC REASON: INCREASED CEREBELLAR DYSFUNCTION Copy for: KESHAWN MCLAUGHLIN via fax Copy for: [address] [place] [address] REC Page 2 of 2 Name Value Range Interpretation Code Description Data Aby rce(s) Supporting Document(s) ID Date Data Source [id number] 10/06/2020 10:09:00 AM EST [facility] [address] [place] [address] PHONE: [phone] FAX: [phone] Name .................. : MICHAEL GORDILLO Vincenzo Acct Number.................. : [id number] ROOM. ................. : Number ................... : [id number] Stay type ............. : O/P Discharge Date......... ... : 10/03/20 Admit Date ......... : 10/03/20 Admit Phys .................... : [facility] Date of ....... : 1955 Family Phys ................... : JAMI BULL Phone .................. : [phone] Age ................................ : 65 Film# .................. .:[id number] Sex ................................. : F Unsigned transcriptions are preliminary reports and do not represent a medical or legal document PELVIS COMPLETE - 3 VIEWS 23635 COMPLETE:10/03/20 12:44 [facility] 3686 (REASON FOR PELVIS: FALL AP PELVIC X-RAY: 3-VIEWS CLINICAL HISTORY: Trauma. FINDINGS: There is spurring at the superolateral aspect of both hips consistent with degenerative disease. No fractures are seen. Bone mineralization is intact. The soft tissues are unremarkable. IMPRESSION: Findings in both hips consistent with degenerative disease. Electronically Reviewed and Signed By Arnoldo De Leon MD , 10/06/20 10:09, [facility] Transcribe Initials: GIRISH , Transcribe Date: 10/03/20 23:55, Dictation Date: Copy for: KESHAWN MCLAUGHLIN via fax Copy for: [address] [place] [address] Page 1 of 1 Name Value Range Interpretation Code Description Data Aby rce(s) Supporting Document(s) ID Date Data Source [id number] 10/06/2020 10:08:00 [place] [address] PHONE: [phone] FAX: [phone] Name .................. : MICHAELJOSÉ LUIS Loya Acct Number.................. : [id number] ROOM. ................. : Number ................... : [id number] Stay type ............. : O/P Discharge Date......... ... : 10/03/20 Admit Date ......... : 10/03/20 Admit Phys .................... : KESHAWN [facility] Date of ....... : 1955 Family Phys ................... : JAMI BULL Phone . ................. : [phone] Age ................................ : 65 Film# .................. .:[id number] Sex ................................. : F Unsigned transcriptions are preliminary reports and do not represent a medical or legal document SPINE LS COMPLETE [id number] COMPLETE:10/03/20 12:44 [facility] 3685 (SPINE PROC REASON: FALL LUMBAR SPINE X-RAY: CLINICAL HISTORY: Trauma FINDINGS: There is a moderately severe compression fracture to T12. No retropulsion is seen. There is eburnation to the L3-4, L4-5 and L5-S1 facet joints. There is spurring at the superolateral aspect of both hips. The soft tissues are intact. IMPRESSION: Compression fracture to T12. Findings in both hips in the L3-4, L4-5 and L5-S1 facet joints consistent with degenerative disease. Electronically Reviewed and Signed By Arnoldo De Leon MD , 10/06/20 10:08, [facility] Transcribe Initials: GIRISH , Transcribe Date: 10/03/20 23:53, Dictation Date: Copy for: KESHAWN MCLAUGHLIN via fax Copy for: [address] [place] [address] Page 1 of 1 Name Value Range Interpretation Code Description Data Aby rce(s) Supporting Document(s) ID Date Data Source [id number] 10/06/2020 10:08:00 AM EST [facility] [address] [place] [address] PHONE: [phone] FAX: [phone] Name .................. : MICHAELJOSÉ LUIS Loya Acct Number.................. : [id number] ROOM. ................. : MR Number ................... : [id number] Stay type ............. : O/P Discharge Date......... ... : 10/03/20 Admit Date ......... : 10/03/20 Admit Phys .................... : PAJENNIFFER [facility] Date of ....... : 1955 Family Phys ................... : JAMI BULL Phone .................. : [phone] Age ................................ : 65 Film# .................. .:[id number] Sex ................................. : F Unsigned transcriptions are preliminary reports and do not represent a medical or legal document RIBS UNILAT W/[place] [id number] COMPLETE:10/03/20 12:44 [facility] 3684 (REASON FOR CHEST: FALL LEFT RIB SERIES WITH PA CHEST: CLINICAL HISTORY: Fall. FINDINGS: No fractures are seen. No pneumothorax is noted. Linear scar versus atelectasis at the right base. The heart is enlarged. IMPRESSION: No evidence for fracture. Cardiomegaly. Electronically Reviewed and Signed By Arnoldo De Leon MD , 10/06/20 10:08, [facility] Transcribe Initials: GIRISH , Transcribe Date: 10/03/20 23:17, Dictation Date: Copy for: KESHAWN MCLAUGHLIN via fax Copy for: [employer] [facility] Page 1 of 1 Name Value Range Interpretation Code Description Data Aby rce(s) Supporting Document(s) ID Date Data Source [id number] 09/23/2020 09:16:00 AM EST [facility] [address] [place] [address] PHONE: [phone] FAX: [phone] Name .................. : MICHAEL Loya Acct Number.................. : [id number] ROOM. ................. : Number ................... : [id number] Stay type ............. : O/P Discharge Date......... ... : 09/22/20 Admit Date ......... : 09/22/20 Admit Phys .................... : LIZYWITH A Date of ....... : 1955 Family Phys ................... : JAMI BULL Phone .................. : [phone] Age ................................ : 65 Film# .................. .:[id number] Sex ................................. : F Unsigned transcriptions are preliminary reports and do not represent a medical or legal document MRI UPP EXT ANY JT W/O CON [place] [id number] COMPLETE:09/22/20 08:55 [facility] 2584 (REASON FOR PROCESS: PAIN ? ROTATOR CUFF TEAR MRI OF THE RIGHT SHOULDER, 09/22/20: FINDINGS: Comminuted fracture deformity of the humeral neck, humeral head, and proximal humeral shaft noted. There is subchondral signal abnormality seen in the humeral head that is suspicious for osteonecrosis. There is no dislocation. Mild osteoarthritic changes are noted in the acromioclavicular joint. A moderate-sized glenohumeral joint effusion is s een. Signal abnormality seen in supraspinatus tendon, infraspinatus tendon, and subscapularis tendon, most likely due to recent trauma and partial thickness disruptions, and/or sprains. Long head of the biceps tendon is intact and in appropriate positioning. Teres minor tendon is unremarkable. Labral tear is not seen. IMPRESSION: Proximal humeral fracture deformity noted. Subchondral signal abnormality noted in the humeral head, suspicious for osteonecrosis. Medium- sized joint effusion. Partial tears and/or sprains supraspinatus, infraspinatus, and subscapularis tendons. Electronically Reviewed and Signed By Humphrey Grey MD , 09/23/20 09:16, [facility] Transcribe Initials: [facility], Transcribe Date: 09/22/20 08:56, Dictation Date: Copy for: KATHRYN PIMENTEL Copy for: [address] [place] [address] REC Page 1 of 1 Name Value Range Interpretation Code Description Data Aby rce(s) Supporting Document(s) ID Date Data Source [id number] 09/19/2020 02:33:00 PM EST [facility] Name Value Range Interpretation Code Description Data Aby rce(s) Supporting Document(s) Creatine kinase [Enzymatic activity/volume] in Serum or Plasma 88 [facility] ([facility]) Magnesium Level 2.1 [facility] ([facility]) ID Date Data Source [id number] 09/19/2020 02:33:00 PM EST [facility] ([facility] Name Value Range Interpretation Code Description Data Aby rce(s) Supporting Document(s) Calcium [Mass/volume] in Serum or Plasma 9.1 [facility] ([facility]) Sodium 139 [facility] Carbon dioxide, total [Moles/volume] in Serum or Plasma 25 [facility] ([facility]) Potassium [Moles/volume] in Serum or Plasma 3.7 [facility] ([facility]) Chloride [Moles/volume] in Serum or Plasma 107 [facility] ([facility]) Glucose 95 70-100 [facility] Creatinine 0.87 0.6-1.5 [facility] ([facility]) Blood Urea Nitrogen 8 5-21 [facility] ([facility]) Glomerular filtration rate/1.73 sq M.pre dicted [Volume Rate/Area] in Serum or Plasma by Creatinine-based formula (MDRD) 60.0 [facility] ([facility]) ID Date Data Source [id number] 09/19/2020 02:33:00 PM EST [facility] ([facility]) Name Value Range Interpretation Code Description Data Aby rce(s) Supporting Document(s) White Blood Count 7.5 4.3-10.9 [facility] ([facility]) Red Blood Count 4.44 4.70-6.20 [facility] ([facility]) Hemoglobin 12.7 13.0-17.0 [facility] ([facility]) Platelets 236 130-400 [facility] Hematocrit 39.6 39.0-50.0 [facility] ([facility]) ID Date Data Source [id number] 09/19/2020 03:35:00 AM EST [facility] ([facility]) Name Value Range Interpretation Code Description Data Aby rce(s) Supporting Document(s) Creatine kinase [Enzymatic activity/volume] in Serum or Plasma 8 8 U/L 26-192 Normal (applies to non-numeric results) [facility] ([facility]) Magnesium [Mass/volume] in Serum or Plasma 2.1 mg/dL 1.8-2 .4 Normal (applies to non-numeric results) [facility] ([facility]) ID Date Data Source [id number] 09/19/2020 03:35:00 AM EST [facility] ([facility]) Name Value Range Interpretation Code Description Data Aby rce(s) Supporting Document(s) Glucose, Fasting 95 mg/dL 70-100 Normal (applies to non-numeric results) [facility] ([facility]) Blood Urea Nitrogen 8 mg/dL 7-18 Normal (applies to non-nume beny results) [facility] ([facility]) Glomerular Filtration Rate Laboratory test result Normal (applies to non- numeric results) [facility] ([facility]) <content>Units are mL/min/1.73 m2</content>
<content></content>
<content>Chronic Kidney Disease Staging per NKF:</content>
<content></content>
<content>Stage I & II GFR >=60 Normal to Mildly Decreased</content>
<content>Stage III GFR 30- 59 Moderately Decreased</content>
<content>Stage IV GFR 15-29 Severely Decreased</content>
<content>Stage V GFR <15 Very Little GFR Left</content>
<content>ESRD GFR <15 on HEAD AND NECK SURGEON</content>
<content></content> Creatinine For GFR 0.87 mg/dL 0.55-1.30 Normal (applies to non -numeric results) [facility] ([facility]) Potassium Serum 3.7 meq/L 3.5-5.1 Normal (applies to non-numeric results) [facility] ([facility]) Sodium Level 139 meq/L 136-145 Normal (applies to non-numeric res ults) [facility] ([facility]) Chloride Level 107 meq/L 98-107 Normal (applies to non-numeric r esults) [facility] ([facility]) Carbon Dioxide Level 25 meq/L 21-32 Normal (applies to non-num eladio results) [facility] ([facility]) Anion Gap 7 meq/L 8-16 Below low normal [facility] ( [facility]) Calcium Level 9.1 mg/dL 8.8-10.2 Normal (applies to non-numeric re sults) [facility] ([facility]) ID Date Data Source [id number] 09/19/2020 03:35:00 AM EST [facility] Name Value Range Interpretation Code Description Data Aby rce(s) Supporting Document(s) White Blood Count 7.5 10 4.0-10.0 Normal (applies to non-numeri c results) [facility] ([facility]) Hematocrit 39.6 % 36.0-47.0 Normal (applies to non-numeric resul ts) [facility] ([facility]) Red Blood Count 4.44 10 4.00-5.40 Normal (applies to non-numeric results) [facility] ([facility]) Hemoglobin 12.7 g/dL 12.0-15.5 Normal (applies to non-numeric resul ts) [facility] ([facility]) Mean Corpuscular Volume 89.2 fl 80.0-96.0 Normal ( applies to non-numeric results) [facility] ([facility]) Mean Corpuscular Hemoglobin 28.6 pg 27.0-33.0 Norm al (applies to non-numeric results) [facility] ([facility]) Mean Corpuscular HGB Conc 32.1 g/dL 32.0-36.5 Normal (applies to non-numeric results) [facility] ([facility]) Platelet Count, Automated 236 10 150-450 Normal (applies to non-numeric results) [facility] ([facility]) Red Cell Distribution Width 17.4 % 11.5-14.5 Above high normal [facility] ([facility]) [place] % 10.1 % 0.0-5.0 Above high normal [facility] ([facility]) Lymph % 24.8 % 24.0-44.0 Normal (applies to non-numeric resul ts) [facility] ([facility]) Neutrophils % 61.2 % 36.0-66.0 Normal (applies to non-numeric re sults) [facility] ([facility]) Immature Granulocyte % 0.4 % 0-3.0 Normal (applies to non-n umeric results) [facility] ([facility]) Baso % 0.7 % 0.0-1.0 Normal (applies to non-numeric resul ts) [facility] ([facility]) Eos % 2.8 % 0.0-3.0 Normal (applies to non-numeric resul ts) [facility] ([facility]) Neutrophils # 4.6 10 1.5-8.5 Normal (applies to non-numeric re sults) [facility] ([facility]) Nucleated Red Blood Cell % 0.0 % 0-0 Normal (applies to n on-numeric results) [facility] ([facility]) Lymph # 1.9 10 1.5-5.0 Normal (applies to non-numeric resul ts) [facility] ([facility]) Baso # 0.1 10 0.0-0.2 Normal (applies to non-numeric resul ts) [facility] ([facility]) [place] # 0.8 10 0.0-0.8 Normal (applies to non-numeric resul ts) [facility] ([facility]) Eos # 0.2 10 0.0-0.5 Normal (applies to non-numeric resul ts) [facility] ([facility]) ID Date Data Source [id number] 09/09/2020 02:20:00 PM EST [facility] Name Value Range Interpretation Code Description Data Aby rce(s) Supporting Document(s) SARS coronavirus 2 RNA Not Detected [facility] This lab was ordered by [facility] and reported by [facility]. ID Date Data Source [id number] 08/28/2020 12:00:00 PM EST [facility] Name Value Range Interpretation Code Description Data Aby rce(s) Supporting Document(s) SARS coronavirus [address] [facility] This lab was ordered by [facility] and reported by [facility]. ID Date Data Source [id number] 08/07/2020 12:00:00 AM EST [facility] Loren Ibarra MD Patient Name: DUY RODRIGUEZ [id number] [facility] Date of : 1955e [birth year] Date of Exam: 08/07/2020CHARISSA Hightower [id number]#: Fax: [phone] EXAM: CT UPPER EXTREMITY WITHOUT CONTRASTCLINICAL INFORMATION: Followup fracture right shoulder.Low dose 64 slice helical scanning through the right shoulder was obtainedusing 2 mm increments and reconstructed in both coronal and sagittalplanes. 3D reconstructions were also obtained. Post processing wasperformed at the physician's workstation.Comparison is 07/05/[address] [facility].Once again, there is a comminuted [...] is well aligned with theglenoid. There is dwji-sa-qkdqqndy narrowing the acromioclavicular joint.Surrounding soft tissue structures are unremarkable. There are no othersignificant findings.IMPRESSION:Comminuted fracture involving the head and neck of the proximal humerus.There is slightly increased impaction and distraction of fracture fragmentscompared to the prior exam. There appears to be very early healing callusformation.Accredited by the [employer] in [place].JONNY Camacho/Eamon you for referring DUY RODRIGUEZ to our office. Electronically Signed - ROXANN ENGLISH MD 08/07/20 16:46 Name Value Range Interpretation Code Description Data Aby rce(s) Supporting Document(s) ID Date Data Source [id number] 07/04/2020 11:34:00 PM EST [facility] ([facility]) Name Value Range Interpretation Code Description Data Aby rce(s) Supporting Document(s) Platelets [#/volume] in Blood by Estimate Laboratory test result Normal (applies to non-numeric results) [facility] ([facility]) ID Date Data Source [id number] 07/04/2020 11:34:00 PM EST [facility] ([facility]) Name Value Range Interpretation Code Description Data Aby rce(s) Supporting Document(s) Lymphocytes 43 % 16-44 Normal (applies to non-numeric resu lts) [facility] ([facility]) Bands 1 % Normal (applies to non-numeric resul ts) [facility] ([facility]) Neutrophils 46 % 28-66 Normal (applies to non-numeric resu lts) [facility] ([facility]) Eosinophils 4 % 0-3 Above high normal [facility] ([facility]) Monocytes 4 % 0-5 Normal (applies to non-numeric resul ts) [facility] ([facility]) Metamyelocytes 2 % 0-0 Above high normal [facility] ([facility]) Hypochromasia Laboratory test result Normal (applies t o non-numeric results) [facility] ([facility]) Anisocytosis Laboratory test result Normal (applies to non -numeric results) [facility] ([facility]) ID Date Data Source [id number] 07/04/2020 11:34:00 PM EST [facility] ([facility]) Name Value Range Interpretation Code Description Data Aby rce(s) Supporting Document(s) Lipase [Enzymatic activity/volume] in Serum or Plasma 69 U/L 73-393 Below low normal [facility] ([facility]) ID Date Data Source [id number] 07/04/2020 11:34:00 PM EST [facility] ([facility]) Name Value Range Interpretation Code Description Data Aby rce(s) Supporting Document(s) Glucose, Fasting 85 mg/dL 70-100 Normal (applies to non-numeric results) [facility] ([facility]) Blood Urea Nitrogen 9 mg/dL 7-18 Normal (applies to non-nume beny results) [facility] ([facility]) Glomerular Filtration Rate 44.7 Below low normal [facility] ([facility]) <content>Units are mL/min/1.73 m2</content>
<content></content>
<content>Chronic Kidney Disease Staging per NKF:</content>
<content></content>
<content>Stage I & II GFR >=60 Normal to Mildly Decreased</content>
<content>Stage III GFR 30-59 Moderately Decreased</content>
<content>Stage IV GFR 15-29 Severely Decreased</content>
<content>Stage V GFR <15 Very Little GFR Left</content>
<content>ESRD GFR <15 on HEAD AND NECK SURGEON</content>
<content></content> Creatinine For GFR 1.27 mg/dL 0.55-1.30 Normal (applies to non -numeric results) [facility] ([facility]) Potassium Serum 4.3 meq/L 3.5-5.1 Normal (applies to non-numeric results) [facility] ([facility]) Sodium Level 133 meq/L 136-145 Below [facility] Chloride Level 100 meq/L 98-107 Normal (applies to non-numeric r esults) [facility]) Carbon Dioxide Level 27 meq/L 21-32 Normal (applies to non-num eladio results) [facility] ([facility]) Calcium Level 8.3 mg/dL 8.8-10.2 Below low normal [facility] ([facility]) Anion Gap 6 meq/L 8-16 Below low normal [facility]) ID Date Data Source [id number] 07/04/2020 11:34:00 PM EST [facility] ([facility]) Name Value Range Interpretation Code Description Data Aby rce(s) Supporting Document(s) Ast/Sgot 13 U/L 7-37 Normal (applies to non-numeric resul ts) [facility] ([facility]) Alt/SGPT 15 U/L 12-78 Normal (applies to non-numeric resul ts) [facility] ([facility]) Alkaline Phosphatase 75 U/L 45-117 Normal (applies to non-num eladio results) [facility] ([facility]) Bilirubin,Direct Laboratory test result 0.0-0.2 Normal ( applies to non-numeric results) [facility] ([facility]) Bilirubin,Total 0.2 mg/dL 0.2-1.0 Normal (applies to non-numeric results) [facility] ([facility]) Total Protein 6.4 GM/DL 6.4-8.2 Normal (applies to non-numeric re sults) [facility] ([facility]) Albumin 3.4 GM/DL 3.2-5.2 Normal (applies to non-numeric resul ts) [facility] ([facility]) Albumin/Globulin Ratio 1.1 1.2-2.2 Below low normal [facility] ([facility]) ID Date Data Source [id number] 07/04/2020 11:34:00 PM EST [facility] ([facility]) Name Value Range Interpretation Code Description Data Aby rce(s) Supporting Document(s) Prothrombin Time 13.3 s 12.5-14.3 Normal (applies to non-numeric results) [facility] ([facility]) Inr 0.99 Normal (applies to non-numeric resul ts) [facility] ([facility]) THERAPUTIC HUMAN INR VALUES INDICATIONS NORMAL RANGES PROPHYLAXIS/TREATMENT OF: VENOUS THROMBOSIS 2.0-3.0 PULMONARY EMBOLISM 2.0-3.0 PREVENTION OF SYSTEMIC EMBOLISM FROM: TISSUE HEART VALVES 2.0-3.0 ACUTE MYOCARDIAL INFARCTION 2.0-3.0 VALVULAR HEART DISEASE 2.0-3.0 ATRIAL FIBRILLATION 2.0-3.0 MECHANICAL VALVES(HIGH RISK) 2.5-3.5 RECURRENT MYOCARDIAL INFARCTION 2.5-3.5 ID Date Data Source [id number] 07/04/2020 11:34:00 PM EST [facility] ([facility]) Name Value Range Interpretation Code Description Data Aby rce(s) Supporting Document(s) White Blood Count 7.5 10 4.0-10.0 Normal (applies to non-numeri c results) [facility] ([facility]) Red Blood Count 3.68 10 4.00-5.40 Below low normal [facility] ([facility]) Hematocrit 34.2 % 36.0-47.0 Below low normal [facility] ( [facility]) Mean Corpuscular Volume 92.9 fl 80.0-96.0 Normal ( applies to non-numeric results) [facility] ([facility]) Hemoglobin 10.3 g/dL 12.0-15.5 Below low normal [facility] ( [facility]) Red Cell Distribution Width 16.3 % 11.5-14.5 Above high normal [facility] ([facility]) Mean Corpuscular HGB Conc 30.1 g/dL 32.0-36.5 Below low normal [facility] ([facility]) Mean Corpuscular Hemoglobin 28.0 pg 27.0-33.0 Norm al (applies to non-numeric results) [facility] ([facility]) Nucleated Red Blood Cell % 0.0 % 0-0 Normal (applies to n on-numeric results) [facility] ([facility]) Platelet Count, Automated 254 10 150-450 Normal (applies to non-numeric results) [facility] ([facility]) ID Date Data Source [id number] 06/23/2020 02:30:00 PM EDT [facility] Name Value Range Interpretation Code Description Data Aby rce(s) Supporting Document(s) SARS coronavirus 2 RNA [facility] This lab was ordered by [facility] and reported by [facility]. ID Date Data Source [id number] 06/19/2020 12:00:00 AM EDT [facility] Carlos Gilbert MD Patient Name: ABDULKADIR [id number] [facility] Date of : 1955[place] Date of Exam: 06/19/2020[place] CHARISSA [id number]#: Fax: [phone] EXAM: CT THORAX WITHOUT CONTRASTCLINICAL [...] with some persistent chronic changes.Accredited by the [employer] [place] [employer] in [place].ELOY Wooten/Eamon you for referring DYU RODRIGUEZ to our office. Electronically Signed - JARROD ZAPATA DO 06/20/20 12:01 Name Value Range Interpretation Code Description Data Aby rce(s) Supporting Document(s) ID Date Data Source [id number] 06/11/2020 12:00:00 AM EDT [facility] Arnoldo Cortez Pa-C Patient Name: DUY RODRIGUEZ [id number] Date [facility] : 1955[facility] [place] [address] Date of Exam: 06/11/2020#: Fax: [phone] EXAM: LUMBOSACRAL SPINE (5 VIEWS)CLINICAL INFORMATION: Pain after trauma "the other day".The are no priors.There is mild posterior disc space narrowing at every level. There isanterior lipping at every level. Vertebral body height and alignment iswithin normal limits. There is no spondylolysis or spondylolisthesis. Thepedicles are intact bilaterally. Heavy marginal osteophytosis is seen onthe right at L1-2.IMPRESSION:Chronic changes as described above.ELOY Wooten/vickiemTlamberto you for referring DUYETHEL RODRIGUEZ to our office. Electronically Signed - JARROD ZAPATA DO 06/12/20 14:25 Name Value Range Interpretation Code Description Data Aby rce(s) Supporting Document(s) ID Date Data Source [id number] 06/11/2020 12:00:00 AM EDT [facility] Arnoldo Cortez Pa-C Patient Name: DUY RODRIGUEZ [id number] Date of : 1955[place] [address] Date of Exam: 06/11/2020#: Fax: [phone] EXAM: PELVIS (1OR2 VIEWS) X-RAYCLINICAL INFORMATION: Pain after trauma "the other day".AP PELVIS:The hip joint spaces are symmetric and relatively well maintained.. Thereis no acute fracture or destructive osseous lesion.ELOY Wooten/Mario you for referring DUY VALDOVINOSCO to our office. Electronically Signed - JARROD ZAPATA DO 06/12/20 14:25 Name Value Range Interpretation Code Description Data Aby rce(s) Supporting Document(s) ID Date Data Source [id number] 06/11/2020 12:00:00 AM EDT [facility] Arnoldo Cortez Pa-C Patient Name: DUY RODRIGUEZ [id number] Date of : 1955[place] [address] Date of Exam: 06/11/2020#: Fax: [phone] EXAM: HIP RIGHT UNILATERAL (COMPLETE) X-RAYCLINICAL INFORMATION: Pain after trauma "the other day".The hip joint space is symmetric and relatively well maintained. There isno acute fracture or destructive osseous lesion.ELOY Wooten/Mario you for referring DUY VALDOVINOSCO to our office. Electronically Signed - JARROD ZAPATA DO 06/12/20 14:24 Name Value Range Interpretation Code Description Data Aby rce(s) Supporting Document(s) ID Date Data Source [id number] 06/03/2020 03:30:00 PM EDT [facility] ([facility]) Name Value Range Interpretation Code Description Data Aby rce(s) Supporting Document(s) Appearance, Urine Laboratory test result Above high normal [facility]) PH,Urine 6.0 units 5.0-9.0 Normal (applies to non-numeric resul ts) [facility] ([facility]) Specific [place] Urine Auto 1.008 1.002-1.035 Norm al (applies to non-numeric results) [facility] ([facility]) Color, Urine Laboratory test result Normal (applies to non -numeric results) [facility] ([facility]) Protein, Urine Auto Laboratory test result Above high norm al [facility] ([facility]) Glucose, Urine (Ua) Auto Laboratory test result Normal (applies to non-numeric results) [facility] ([facility]) Ketone, Urine Auto Laboratory test result Normal (applies to non-numeric results) [facility] ([facility]) Bilirubin, Urine Auto Laboratory test result Nor mal (applies to non-numeric results) [facility] ([facility]) Urobilinogen, Urine Auto 0.2 mg/dL 0.0-2.0 Normal (applies to non-numeric results) [facility] ([facility]) Nitrite, Urine Auto Laboratory test result Jody l (applies to non-numeric results) [facility] ([facility]) Blood, Urine Blood Laboratory test result Above high jody l [facility] ([facility]) Leukocyte Esterase, Urine Auto Laboratory test result Abov e high normal [facility] ([facility]) WBC, Urine Auto Laboratory test result 0-3 Above high normal [facility] ([facility]) Bacteria, Urine Auto Laboratory test result Above high nor mal [facility] ([facility]) RBC, Urine Auto 27 /HPF 0-3 Above high normal [facility] ([facility]) Squamous Epithelial Cell Ur AU 0 /HPF 0-6 N ormal (applies to non-numeric results) [facility] ([facility]) Mucus, Urine Laboratory test result Normal (applies to non -numeric results) [facility] ([facility]) Hyaline Cast, Urine Auto 0 /LPF 0-1 Normal (applies to non -numeric results) [facility] ([facility]) ID Date Data Source [id number] 06/03/2020 03:30:00 PM EDT [facility] ([facility]) Name Value Range Interpretation Code Description Data Aby rce(s) Supporting Document(s) Bacteria identified in Urine by Culture Laboratory test result Normal (applies to non-numeric results) [facility] ([facility]) <content>FULL REPORT IN LAB NOTES (eCW [...] FOR ESBL</content>
<content></content> ID Date Data Source [id number] 06/02/2020 10:30:00 AM EDT [facility] ([facility]) Name Value Range Interpretation Code Description Data Aby rce(s) Supporting Document(s) White Blood Count 8.6 10 4.0-10.0 Normal (applies to non-numeri c results) [facility] ([facility]) Hematocrit 31.3 % 36.0-47.0 Below low normal [facility] ( [facility]) Hemoglobin 9.7 g/dL 12.0-15.5 Below low normal [facility] Red Blood Count 3.42 10 4.00-5.40 Below low normal [facility] ([facility]) Mean Corpuscular Hemoglobin 28.4 pg 27.0-33.0 Norm al (applies to non-numeric results) [facility] ([facility]) Mean Corpuscular Volume 91.5 fl 80.0-96.0 Normal ( applies to non-numeric results) [facility] ([facility]) Mean Corpuscular HGB Conc 31.0 g/dL 32.0-36.5 Below low normal [facility] ([facility]) Platelet Count, Automated 208 10 150-450 Normal (applies to non-numeric results) [facility] ([facility]) Red Cell Distribution Width 16.5 % 11.5-14.5 Above high normal [facility] ([facility]) Neutrophils % 63.0 % 36.0-66.0 Normal (applies to non-numeric re sults) [facility] ([facility]) Lymph % 19.6 % 24.0-44.0 Below low normal [facility] ( [facility]) [place] % 10.1 % 0.0-5.0 Above high normal [facility] ([facility]) Eos % 6.3 % 0.0-3.0 Above high normal [facility] ([facility]) Baso % 0.4 % 0.0-1.0 Normal (applies to non-numeric resul ts) [facility] ([facility]) Nucleated Red Blood Cell % 0.0 % 0-0 Normal (applies to n on-numeric results) [facility] ([facility]) Immature Granulocyte % 0.6 % 0-3.0 Normal (applies to non-n umeric results) [facility] ([facility]) Lymph # 1.7 10 1.5-5.0 Normal (applies to non-numeric resul ts) [facility] ([facility]) [place] # 0.9 10 0.0-0.8 Above high normal [facility] ([facility]) Neutrophils # 5.4 10 1.5-8.5 Normal (applies to non-numeric re sults) [facility] ([facility]) Eos # 0.5 10 0.0-0.5 Normal (applies to non-numeric resul ts) [facility] ([facility]) Baso # 0.0 10 0.0-0.2 Normal (applies to non-numeric resul ts) [facility] ([facility]) ID Date Data Source [id number] 06/02/2020 10:30:00 AM EDT [facility] ([facility]) Name Value Range Interpretation Code Description Data Aby rce(s) Supporting Document(s) Randa (Hep2) Laboratory test result Normal (applies to non-n umeric results) [facility] ([facility]) <content>Negative <1:80</content>
<content>Borderline 1:80</content>
<content>Positive >1:80</content>
<content>Performed at: [facility]</content>
<content>[address] [place] [address] [id number]</content>
<content>Fryer Operator: Javier Scott MD, Phone: [phone]</content>
<content>Performed at: [facility]</content>
<content>[address] [place] [phone]</content>
<content>Fryer Operator: Tammy Sarmiento MD, Phone: [phone]</content>
<content></content> ID Date Data Source [id number] 06/02/2020 10:30:00 AM EDT [facility] ([facility]) Name Value Range Interpretation Code Description Data Aby rce(s) Supporting Document(s) Laboratory test finding (navigational concept) 1.1 ug/mL 1 .0-2.5 Normal (applies to non-numeric results) [facility] ([facility]) This test was developed and its performa nce characteristics determined by [facility]. It has not been cleared or approved by the Food and Drug Administration. Detection Limit = 0.2 Laboratory test finding (navigational concept) 0.8 ug/mL 1 .0-2.5 Below low normal [facility] ([facility]) This test was developed and its performa nce characteristics determined by [facility]. It has not been cleared or approved by the Food and Drug Administration. Detection Limit = 0.2 ID Date Data Source [id number] 06/02/2020 10:30:00 AM EDT [facility] ([facility]) Name Value Range Interpretation Code Description Data Aby rce(s) Supporting Document(s) Thyroid Stimulating Hormone 6.210 uIU/ML 0.358-3.740 Above high jody l [facility] ([facility]) Free T4 1.85 ng/dL 0.76-1.46 Above high normal [facility] ([facility]) ID Date Data Source [id number] 06/02/2020 10:30:00 AM EDT [facility] ([facility]) Name Value Range Interpretation Code Description Data Aby rce(s) Supporting Document(s) Lipase [Enzymatic activity/volume] in Serum or Plasma 82 U/L 73-393 Normal (applies to non-numeric results) [facility] ([facility]) ID Date Data Source [id number] 06/02/2020 10:30:00 AM EDT [facility] ([facility]) Name Value Range Interpretation Code Description Data Aby rce(s) Supporting Document(s) Iron (Fe) 37 ug/dL 50-170 Below low normal [facility] Percent Saturation 16.6 % 13.2-45.0 Normal (applies to non-numer ic results) [facility] ([facility]) Total Iron Binding Capacity 223 ug/dL 250-450 Below low normal [facility] ([facility]) ID Date Data Source [id number] 06/02/2020 10:30:00 AM EDT [facility] ([facility]) Name Value Range Interpretation Code Description Data Aby rce(s) Supporting Document(s) Magnesium [Mass/volume] in Serum or Plasma 1.3 mg/dL 1.8-2.4 Belo w low normal [facility] ([facility]) ID Date Data Source [id number] 06/02/2020 10:30:00 AM EDT [facility] ([facility]) Name Value Range Interpretation Code Description Data Aby rce(s) Supporting Document(s) Glucose, Fasting 71 mg/dL 70-100 Normal (applies to non-numeric results) [facility]) Creatinine For GFR 0.86 mg/dL 0.55-1.30 Normal (applies to non -numeric results) [facility] ([facility]) Blood Urea Nitrogen 6 mg/dL 7-18 Below low normal [facility] Glomerular Filtration Rate Laboratory test result Normal (applies to non- numeric results) [facility] ([facility]) <content>Units are mL/min/1.73 m2</content>
<content></content>
<content>Chronic Kidney Disease Staging per NKF:</content>
<content></content>
<content>Stage I & II GFR >=60 Normal to Mildly Decreased</content>
<content>Stage III GFR 30- 59 Moderately Decreased</content>
<content>Stage IV GFR 15-29 Severely Decreased</content>
<content>Stage V GFR <15 Very Little GFR Left</content>
<content>ESRD GFR <15 on HEAD AND NECK SURGEON</content>
<content></content> Sodium Level 126 meq/L 136-145 Below low normal [facility] ([facility]) Potassium Serum 4.4 meq/L 3.5-5.1 Normal (applies to non-numeric results) [facility] ([facility]) Carbon Dioxide Level 23 meq/L 21-32 Normal (applies to non-num eladio results) [facility] ([facility]) Chloride Level 94 meq/L 98-107 Below low normal MEDE NT ([facility]) Calcium Level 8.5 mg/dL 8.8-10.2 Below low normal MEDEN T ([facility]) Anion Gap 9 meq/L 8-16 Normal (applies to non-numeric resul ts) [facility] ([facility]) ID Date Data Source [id number] 06/02/2020 10:30:00 AM EDT [facility] ([facility]) Name Value Range Interpretation Code Description Data Aby rce(s) Supporting Document(s) Alt/SGPT 14 U/L 12-78 Normal (applies to non-numeric resul ts) [facility] ([facility]) Ast/Sgot 15 U/L 7-37 Normal (applies to non-numeric resul ts) [facility] Alkaline Phosphatase 76 U/L 45-117 Normal (applies to non-num eladio results) [facility] ([facility]) Bilirubin,Total 0.3 mg/dL 0.2-1.0 Normal (applies to non-numeric results) [facility] ([facility]) Bilirubin,Direct 0.1 mg/dL 0.0-0.2 Normal (applies to non-numeric results) [facility] ([facility]) Total Protein 6.1 GM/DL 6.4-8.2 Below low normal [facility] T ([facility]) Albumin/Globulin Ratio 0.8 1.2-2.2 Below low normal [facility] ([facility]) Albumin 2.7 GM/DL 3.2-5.2 Below low normal [facility] ( [facility]) ID Date Data Source [id number] 06/02/2020 10:30:00 AM EDT [facility] ([facility]) Name Value Range Interpretation Code Description Data Aby rce(s) Supporting Document(s) C reactive protein [Mass/volume] in Serum or Plasma by High sensitivity method 0.96 mg/dL 0.00-0.30 Above high normal [facility] ID Date Data Source [id number] 06/02/2020 08:33:00 AM EDT [facility] ([facility]) Name Value Range Interpretation Code Description Data Aby rce(s) Supporting Document(s) Platelets 208 172-450 [facility] White Blood Count 8.6 4.0-10.0 [facility] ([facility]) Red Blood Count 3.42 4.00-5.40 [facility] ([facility]) Hematocrit 31.3 [facility] ([facility]) Hemoglobin 9.7 [facility] ([facility]) ID Date Data Source [id number] 06/02/2020 08:33:00 AM EDT [facility]) Name Value Range Interpretation Code Description Data Aby rce(s) Supporting Document(s) Thyroid Stimulating Hormone 6.210 0.358-3.740 [facility] ([facility]) Free T4 1.85 [facility] C-Reactive Protein 0.96 [facility] ([facility]) Lipoprotein lipase [Enzymatic activity/volume] in Serum or Plasma 82 [facility] ([facility]) ID Date Data Source [id number] 06/02/2020 08:33:00 AM EDT [facility]) Name Value Range Interpretation Code Description Data Aby rce(s) Supporting Document(s) Iron 37 50-170 [facility] Iron binding capacity [Mass/volume] in Serum or Plasma 223 [facility] ([facility]) Tibc % Saturation 16.6 [facility] ([facility]) ID Date Data Source [id number] 06/02/2020 08:33:00 AM EDT [facility] Name Value Range Interpretation Code Description Data Aby rce(s) Supporting Document(s) Magnesium Level 1.3 1.8-2.4 [facility] ([facility]) ID Date Data Source [id number] 06/02/2020 08:33:00 AM EDT [facility] Name Value Range Interpretation Code Description Data Aby rce(s) Supporting Document(s) Calcium [Mass/volume] in Serum or Plasma 8.5 [facility] ([facility]) Albumin [Mass/volume] in Serum or Plasma 2.7 [facility] ([facility]) Alanine aminotransferase [Enzymatic activity/volume] in Serum or Pl asma 14 [facility] ([facility]) Chloride [Moles/volume] in Serum or Plasma 94 [facility] ([facility]) Alkaline phosphatase [Enzymatic activity/volume] in Serum or Plasma 7 6 [facility] ([facility]) Carbon dioxide, total [Moles/volume] in Serum or Plasma 8.5 [facility] ([facility]) Potassium [Moles/volume] in Serum or Plasma 4.4 [facility] ([facility]) Sodium 126 [facility] Protein [Mass/volume] in Serum or Plasma 6.1 [facility] ([facility]) Glucose 71 70-100 [facility] Urea nitrogen [Mass/volume] in Serum or Plasma 6 [facility] ([facility]) Aspartate aminotransferase [Enzymatic activity/volume] in Serum or Plasma 15 [facility] ([facility]) Creatinine For GFR 6 [facility] ([facility]) ID Date Data Source [id number] 04/02/2020 06:00:00 PM EDT [facility] ([facility]) Name Value Range Interpretation Code Description Data Aby rce(s) Supporting Document(s) aPTT in Platelet poor plasma by Coagulation assay 108.7 s 25.0-38.4 Above high normal [facility] ([facility]) ID Date Data Source [id number] 04/02/2020 09:45:00 AM EDT [facility] ([facility]) Name Value Range Interpretation Code Description Data Aby rce(s) Supporting Document(s) aPTT in Platelet poor plasma by Coagulation assay 45.1 s 25.0-38.4 Above high normal [facility] ([facility]) ID Date Data Source [id number] 04/02/2020 12:01:00 AM EDT [facility] ([facility]) Name Value Range Interpretation Code Description Data Aby rce(s) Supporting Document(s) aPTT in Platelet poor plasma by Coagulation assay 95.8 s 25.0-38.4 Above high normal [facility] ([facility]) ID Date Data Source [id number] 03/28/2020 01:00:00 PM EDT [facility] ([facility], ) Name Value Range Interpretation Code Description Data Aby rce(s) Supporting Document(s) Surgical pathology study Laboratory test result [facility] ([facility], ) <content>FINAL DIAGNOSIS</content>
< content></content>
<content>Colon, resection [...] colon. The serosal lining is hemorrhagic with</content>
<content> punctate necrotic areas. Opening reveals hemorrhagic fluid in the</content>
<content>lumen. The sigmoid shows predominantly formed fecal material.</content>
<content>Additional portions of fat, skin and colonic tissue, 5 cm. in aggregate</content>
<content>are noted in the container. Patient Financial Services Coordinator sections are submitted as</content>
<content>follows; (A1 & A2) cecum, (A3 & A4) transverse colon and (A5 & A6)</content>
<content>sigmoid colon.</content>
<content>- SH</content>
<content>04/24/2020 - 1413</content>
<content> </content>
<content>Signed Cortez Portillo MD 04/24/2020 1558</content>
<content></content> ID Date Data Source [id number] 03/28/2020 11:25:00 AM EDT [facility] ([facility]) Name Value Range Interpretation Code Description Data Aby rce(s) Supporting Document(s) Packed Cells Laboratory test result [facility]) TRANSFUSED PRODUCT: PACKED CELLS COUNT: 2 ID Date Data Source [id number] 03/28/2020 11:25:00 AM EDT [facility] ([facility]) Name Value Range Interpretation Code Description Data Aby rce(s) Supporting Document(s) AB Screen (Indirect Sara)Vis Laboratory test result Normal (applies to non- numeric results) [facility] ([facility]) Blood Type Laboratory test result Normal (applies to non-n umeric results) [facility] ([facility]) ID Date Data Source [id number] 03/28/2020 06:40:00 AM EDT [facility] ([facility]) Name Value Range Interpretation Code Description Data Aby rce(s) Supporting Document(s) Magnesium [Mass/volume] in Serum or Plasma 5.5 mg/dL 1.8-2 .4 Above upper panic limits [facility] ([facility]) ID Date Data Source [id number] 03/28/2020 06:40:00 AM EDT [facility] ([facility]) Name Value Range Interpretation Code Description Data Aby rce(s) Supporting Document(s) Blood Urea Nitrogen 36 mg/dL 7-18 Above high normal [facility] ([facility]) Glucose, Fasting 130 mg/dL 70-100 Above high normal [facility] Creatinine For GFR 1.77 mg/dL 0.55-1.30 Above high normal [facility] ([facility]) Sodium Level 136 meq/L 136-145 Normal (applies to non-numeric res ults) [facility] ([facility]) Potassium Serum 7.2 meq/L 3.5-5.1 Above upper panic limits [facility] ([facility]) This specimen has an elevated potassium level but there is NO visible hemolysis noted. Glomerular Filtration Rate 30.5 Below low normal [facility] ([facility]) <content>Units are mL/min/1.73 m2</content>
<content></content>
<content>Chronic Kidney Disease Staging per NKF:</content>
<content></content>
<content>Stage I & II GFR >=60 Normal to Mildly Decreased</content>
<content>Stage III GFR 30- 59 Moderately Decreased</content>
<content>Stage IV GFR 15-29 Severely Decreased</content>
<content>Stage V GFR <15 Very Little GFR Left</content>
<content>ESRD GFR <15 on HEAD AND NECK SURGEON</content>
<content></content> Chloride Level 108 meq/L 98-107 Above high normal [facility] ([facility]) Carbon Dioxide Level 17 meq/L 21-32 Below low normal [facility] ([facility]) Anion Gap 11 meq/L 8-16 Normal (applies to non-numeric resul ts) [facility] ([facility]) Ast/Sgot 31 U/L 7-37 Normal (applies to non-numeric resul ts) [facility] ([facility]) Calcium Level 7.9 mg/dL 8.8-10.2 Below low normal [facility] T ([facility]) Alkaline Phosphatase 67 U/L 45-117 Normal (applies to non-num eladio results) [facility] ([facility]) Alt/SGPT 22 U/L 12-78 Normal (applies to non-numeric resul ts) [facility] ([facility]) Bilirubin,Total 1.3 mg/dL 0.2-1.0 Above high normal [facility] ([facility]) Albumin 2.5 GM/DL 3.2-5.2 Below low normal [facility] ( [facility]) Total Protein 5.4 GM/DL 6.4-8.2 Below low normal [facility] T ([facility]) Albumin/Globulin Ratio 0.9 1.2-2.2 Below low normal [facility] ([facility]) ID Date Data Source [id number] 03/28/2020 06:40:00 AM EDT [facility] ([facility]) Name Value Range Interpretation Code Description Data Aby rce(s) Supporting Document(s) White Blood Count 19.8 10 4.0-10.0 Above high normal [facility] ([facility]) Red Blood Count 4.98 10 4.00-5.40 Normal (applies to non-numeric results) [facility] ([facility]) Hematocrit 47.1 % 36.0-47.0 Above high normal [facility] ([facility]) Hemoglobin 14.8 g/dL 12.0-15.5 Normal (applies to non-numeric resul ts) [facility] ([facility]) Mean Corpuscular Volume 94.6 fl 80.0-96.0 Normal ( applies to non-numeric results) [facility] ([facility]) Mean Corpuscular Hemoglobin 29.7 pg 27.0-33.0 Norm al (applies to non-numeric results) [facility] ([facility]) Red Cell Distribution Width 14.7 % 11.5-14.5 Above high normal [facility] ([facility]) Platelet Count, Automated 335 10 150-450 Normal (applies to non-numeric results) [facility] ([facility]) Mean Corpuscular HGB Conc 31.4 g/dL 32.0-36.5 Below low normal [facility] ([facility]) Nucleated Red Blood Cell % 0.0 % 0-0 Normal (applies to n on-numeric results) [facility] ([facility]) ID Date Data Source [id number] 03/27/2020 04:27:00 PM EDT [facility] ([facility]) Name Value Range Interpretation Code Description Data Aby rce(s) Supporting Document(s) Red Blood Count 4.86 10 4.00-5.40 Normal (applies to non-numeric results) [facility] ([facility]) White Blood Count 14.4 10 4.0-10.0 Above high normal [facility] ([facility]) Mean Corpuscular Volume 91.8 fl 80.0-96.0 Normal ( applies to non-numeric results) [facility] ([facility]) Hematocrit 44.6 % 36.0-47.0 Normal (applies to non-numeric resul ts) [facility] ([facility]) Hemoglobin 14.5 g/dL 12.0-15.5 Normal (applies to non-numeric resul ts) [facility] ([facility]) Red Cell Distribution Width 14.0 % 11.5-14.5 Norm al (applies to non-numeric results) [facility] ([facility]) Mean Corpuscular HGB Conc 32.5 g/dL 32.0-36.5 Normal (applies to non-numeric results) [facility] ([facility]) Mean Corpuscular Hemoglobin 29.8 pg 27.0-33.0 Norm al (applies to non-numeric results) [facility] ([facility]) Platelet Count, Automated 248 10 150-450 Normal (applies to non-numeric results) [facility] ([facility]) Neutrophils % 74.4 % 36.0-66.0 Above high normal [facility] ([facility]) Lymph % 10.9 % 24.0-44.0 Below low normal [facility] ( [facility]) [place] % 13.9 % 0.0-5.0 Above high normal [facility] ([facility]) Eos % 0.3 % 0.0-3.0 Normal (applies to non-numeric resul ts) [facility] ([facility]) Baso % 0.2 % 0.0-1.0 Normal (applies to non-numeric resul ts) [facility] ([facility]) Immature Granulocyte % 0.3 % 0-3.0 Normal (applies to non-n umeric results) [facility] ([facility]) Neutrophils # 10.7 10 1.5-8.5 Above high normal [facility] NT ([facility]) Nucleated Red Blood Cell % 0.0 % 0-0 Normal (applies to n on-numeric results) [facility] ([facility]) Lymph # 1.6 10 1.5-5.0 Normal (applies to non-numeric resul ts) [facility] ([facility]) Baso # 0.0 10 0.0-0.2 Normal (applies to non-numeric resul ts) [facility] ([facility]) [place] # 2.0 10 0.0-0.8 Above high normal [facility] ([facility]) Eos # 0.0 10 0.0-0.5 Normal (applies to non-numeric resul ts) [facility] ([facility]) ID Date Data Source [id number] 03/27/2020 04:27:00 PM EDT [facility] ([facility]) Name Value Range Interpretation Code Description Data Aby rce(s) Supporting Document(s) Inr 1.17 Normal (applies to non-numeric resul ts) [facility] ([facility]) THERAPUTIC HUMAN INR VALUES INDICATIONS NORMAL RANGES PROPHYLAXIS/TREATMENT OF: VENOUS THROMBOSIS 2.0-3.0 PULMONARY EMBOLISM 2.0-3.0 PREVENTION OF SYSTEMIC EMBOLISM FROM: TISSUE HEART VALVES 2.0-3.0 ACUTE MYOCARDIAL INFARCTION 2.0-3.0 VALVULAR HEART DISEASE 2.0-3.0 ATRIAL FIBRILLATION 2.0-3.0 MECHANICAL VALVES(HIGH RISK) 2.5-3.5 RECURRENT MYOCARDIAL INFARCTION 2.5-3.5 Partial Thromboplastin Time 35.4 s 25.0-38.4 Norm al (applies to non-numeric results) [facility] ([facility]) Prothrombin Time 15.2 s 11.8-14.0 Above high normal [facility] ID Date Data Source [id number] 03/27/2020 11:12:00 AM EDT [facility] ([facility]) Name Value Range Interpretation Code Description Data Aby rce(s) Supporting Document(s) Coronavirus 2019 Nasopharygeal Laboratory test result [facility] ([facility]) Laboratory test finding (navigational concept) Laboratory test result [facility] ([facility]) Laboratory test finding (navigational concept) Laboratory test r esult Normal (applies to non-numeric results) [facility] ([facility]) A false negative result may occur [...] pathogens. DISCLAIMER: Testing was performed using the [employer] SARS-CoV-2 test. This test was developed and its performance characteristics determined by [employer]. This test has not been FDA cleared [...] test finding (navigational concept) Laboratory test result [facility] ([facility]) Laboratory test finding (navigational concept) Laboratory test result [facility] ([facility]) Laboratory test finding (navigational concept) Laboratory test result [facility] ([facility]) Laboratory test finding (navigational concept) Laboratory test result [facility] ([facility]) Laboratory test finding (navigational concept) Laboratory test result [facility] ([facility]) Laboratory test finding (navigational concept) Laboratory test result [facility] ([facility]) Laboratory test finding (navigational concept) Laboratory test result [facility] ([facility]) Laboratory test finding (navigational concept) Laboratory test result [facility] ([facility]) Laboratory test finding (navigational concept) Laboratory test result [facility] ([facility]) Laboratory test finding (navigational concept) Laboratory test result [facility] ([facility]) Laboratory test finding (navigational concept) Laboratory test result [facility] ([facility]) Laboratory test finding (navigational concept) Laboratory test result [facility] ([facility]) Laboratory test finding (navigational concept) Laboratory test result [facility] ([facility]) Laboratory test finding (navigational concept) Laboratory test result [facility] ([facility]) Laboratory test finding (navigational concept) Laboratory test result [facility] ([facility]) Laboratory test finding (navigational concept) Laboratory test result [facility] ([facility]) Laboratory test finding (navigational concept) Laboratory test result [facility] ([facility]) Laboratory test finding (navigational concept) Laboratory test result [facility] ([facility]) Laboratory test finding (navigational concept) Laboratory test result [facility] ([facility]) Laboratory test finding (navigational concept) Laboratory test result [facility] ([facility]) Laboratory test finding (navigational concept) Laboratory test result [facility] ([facility]) Laboratory test finding (navigational concept) Laboratory test result [facility] ([facility]) ID Date Data Source [id number] 02/18/2020 10:40:49 AM EDT [facility] Name Value Range Interpretation Code Description Data Aby rce(s) Supporting Document(s) Progress Note 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 [file] AgICAgICAgICAgICAgICAgICAgICAgICAgICAgICAg ICAgICAgICAgICAgICAgICAgICAgICAgICAgICAgICAgICAgICAgICANCiAgICAgICAgICAgICAgICAg ICAgICAgICAgICAgICAgICAgICAgICAgICAgICAgICAgICAgICAgICAgICAgICAgICAgICAgICAgICAg ICAgICAgICAgICAgICAgICAgICAgICANCiAgICAgIC AgICAgICAgICAgICAgICAgICAgICAgICAgICAgICAgICAgICAgICAgICAgICAgICAgICAgICAgICAgIC AgICAgICAgICAgICAgICAgICAgICAgICAgICAgICAgICANCiAgICAgICAgICAgICAgICAgICAgICAgIC AgICAgICAgICAgICAgICAgICAgICAgICAgICAgICAg ICAgICAgICAgICAgICAgICAgICAgICAgICAgICAgICAgICAgICAgICAgICANCiAgICAgICAgICAgICAg ICAgICAgICAgICAgICAgICAgICAgICAgICAgICAgICAgICAgICAgICAgICAgICAgICAgICAgICAgICAg ICAgICAgICAgICAgICAgICAgICAgICAgICANCiAgIC AgICAgICAgICAgICAgICAgICAgICAgICAgICAgICAgICAgICAgICAgICAgICAgICAgICAgICAgICAgIC AgICAgICAgICAgICAgICAgICAgICAgICAgICAgICAgICAgICANCiAgICAgICAgICAgICAgICAgICAgIC AgICAgICAgICAgICAgICAgICAgICAgICAgICAgICAg ICAgICAgICAgICAgICAgICAgICAgICAgICAgICAgICAgICAgICAgICAgICAgICANCiAgICAgICAgICAg ICAgICAgICAgICAgICAgICAgICAgICAgICAgICAgICAgICAgICAgICAgICAgICAgICAgICAgICAgICAg ICAgICAgICAgICAgICAgICAgICAgICAgICAgICANCi AgICAgICAgICAgICAgICAgICAgICAgICAgICAgICAgICAgICAgICAgICAgICAgICAgICAgICAgICAgIC AgICAgICAgICAgICAgICAgICAgICAgICAgICAgICAgICAgICAgICANCiAgICAgICAgICAgICAgICAgIC AgICAgICAgICAgICAgICAgICAgICAgICAgICAgICAg ICAgICAgICAgICAgICAgICAgICAgICAgICAgICAgICAgICAgICAgICAgICAgICAgICANCjw/oMYvN4ox yHTcraX9S0fbOx5CXe2YSZ4yn3TbXJSuINlzlxGwEacZTvKqZLAuUzsGWsd5VXxgXU2XiTJxL9ChD6Nw KYyvEK1TEQUsWDOcvBMqWWBaVBTtZtW4LZBsOAgrVR 3VaUOvBZsjONFxXUSrTcUrCGItEYCgVZFtGFJtXJFNNZVzSEDiSjMgSFCzPTDhLRmgXDSKNYR0VUWvNq BkEQZrQFAdFeXqGARBSF4ZKiThW2WrtT99QEDtLHu+Wc7URJ2gt7IeFEn5JzUjTB9lqv2VVXwXEoVaU4 SinmM6HFV7TYWcAb2ZFIOkQMCagUZ4FPEaLWKYIvEh N4OdbT14SAZRWa9+BBpxxbXmTnvQVtG4CKXol6IcRLm8CL0CTNHgXJa5cYKtQVPwE2Lrx4RoMe87AIIt LfyqUecigqkrd04fMMs2XXQUSPGugLN7WgVnBoFnQhYtLRN9GDMqJJ3eAQmrQY0MADP6TMtrIQBiUVCy D5eOSkQhZRJpTKDjqPzsQM0BWcMqB3UvipHvyVM6Ob AwIFINCj4+KMzwppSzTumVIuL9HVOfv2DbSPh6OR4ABILxWFuaSM6UCNZxvC4bJMpgDW4QAbP2TMSkER ARAhYnB05yyENiFVq3N2OnOvXxRFDpOrdkCDRyHKgjQgXxJCItHhTlDJnlHB5+ID4+DSokWB9WOTtrqs LvNIKkYj8GWEHaIJPrOF2nLIZmAHPcQ0B3aIkvBCFL BpTiF4jwymlqMQ7wVPWvJ007eUnwsaRlHDAlEZXdYk0IDICvJRB2MDItmKHeGTRaOFPUTAmzOQ2SxKGz VYP3hJ5fAEqaSVYtNYNaC3yVEiMxfFgpRQ14lWpszaJnjVWiPMg+Ln3MBD2it7EsEVj3lkNfSHmzKKK9 DOveWMUvZZVxZEOlOMN1EOS1EKBHXhZxHFGyMIGqDW nzWIUaRXXele0OTREtUAW4AFOwHZNzMGAkOJJdWAqkQKHnZOI7TxW0LLVaWPMfLV8OXgTiHKZgNTRsOB nbQMYqMKRsad2UHWRuZJKqOyw7SmGkMDQnLOXtATarIKEtZNT4RsKsMQOpKEOwRZ4ODmQxBOUhHAe1GN BaKRXtYISxgs8NKKKsWESkGIAfQZXfZFWvSABuYNbl LELrTHJjAIKpICQmJPOpSB8RUuItVCBxXCKmIJDmQSMnYNIslk4ZFSHsHOMiXMF2FBUjOEMcQNPmLPpy FDZlSBS7XmA8VKVxLZVnAO5CFkNoCFUxUoEdPrEiOIExFXHtbl4COFDkITLqLVV6RXTxHTPlSPChPBok DXVuXXR8QZJ7ZLBgFRNgZP7LRuAgEOQyArQ8JqApJD PxLJKgew7HICNrDLJiMsv6BbJaPGDhPJOkHAlxTOVsJZC8QGKxYPBjLIGsLE5LEcIeOJViEjZ0ZMbhYJ LhBCTaor4YIWYmCQYjHNF8RKVtQKJhYVNvIBdbDRWzQWV3VhP6LGTcKWQqZJ0NOuXoTWVvXaD1AGFdRW YqSPMbkx8YDURhJIAeHyKoCWAbCVLzEJGmPUupGMIn YPL7JhOkJMYkMBMdQS2XYuNhENNxUyfxGcFtMNLbHASknf3QRBGaVXMvMNM6DXWfTVIfCIFuWYfuJAPc TAU0WrTlWREiAEAiML3UOxExBVHiQey4BMNmPZTeSNNikc7CPAPiCINrQEitGgObCBIjEOVzPNjnGKWd BMJpCRNbTURsYUSbMN4CTwIcUQWlXFU8EwEcWFCkBH Ivsm1SBJXpAVI5JSn4YKQzLCNnJYBoWYhcOVMiFPUsPXE6PCSvXKMoWA8EQjFnTWQnMJFvOIXyPXSoDJ Ljjv1FRJCaPEA1NyJ8KSShNDUjHYHiRWwvAXYcUNAcHzPdQETpWSEpYT3HZxUbCHQcLXY1FPPzQMTnPO Xxku3XGOWhWEX8HqZ2YmJiHUVtQWHzMEbmPGCoDBX1 RfY4USZlZVCjUI8JTvRkEOBwRYH4POCmGPRsTVHtkh7DVPIwVQA4IFu6ZyCwYUXdABEzFLszJZVzZJL1 UMR9VKSuVAUfOL2DSzKcXCLaPIK3VVYfIGSuIUCbnz4CSGBlADP6Hms1LjIsLCBuUGNrWUgyJIUpULU3 DDUlUGQvPTHaAQ6FAlDeXDacYSBFBfz7MOvsJ9v4YB Y2Wc7QN0Yzc5HpOJPxZPNPWSkqYD6xaxHfTFXjLe2GH3mZMxi8KxLxGPV8LSO8BBZ6ONG1NlNcC5UgCE KgFQK3ZtmgRh3gCCw9FFKsJEurUeu1OTWdKhG5OkUcG2OnMOC0LkilZfQuUnZpTB4ROo2UEtI5RHF8rU UrFh5YREisSjeAYcYzVN8GPFj= ID Date Data Source [id number] 02/11/2020 09:14:00 AM EDT [facility] ([facility]) Name Value Range Interpretation Code Description Data Aby rce(s) Supporting Document(s) Coronavirus 2019 Nasopharygeal Laboratory test result [facility] ([facility]) Testing was performed using the Selenokhod S ARS-CoV-2 assay. This test was developed and its performance characteristics determined by [employer]. This test has not been FDA cleared [...] detected) result in this assay. Performed at: [facility] [id number] [place] Operator: Tammy Sarmiento MD, Phone: [phone] Not Detected ID Date Data Source [id number] 02/11/2020 09:14:00 AM EDT [facility] Name Value Range Interpretation Code Description Data Aby rce(s) Supporting Document(s) SARS CORONAVIRUS 2 RNA [facility] This lab was ordered by [facility] and reported by [facility]. ID Date Data Source [id number] 11/29/2019 03:30:00 PM EDT [facility] ([facility]) Name Value Range Interpretation Code Description Data Aby rce(s) Supporting Document(s) Ast/Sgot 21 U/L 7-37 Normal (applies to non-numeric resul ts) [facility] ([facility]) Bilirubin,Total 0.2 mg/dL 0.2-1.0 Normal (applies to non-numeric results) [facility] ([facility]) Alkaline Phosphatase 65 U/L 45-117 Normal (applies to non-num eladio results) [facility] ([facility]) Bilirubin,Direct 0.1 mg/dL 0.0-0.2 Normal (applies to non-numeric results) [facility] ([facility]) Alt/SGPT 23 U/L 12-78 Normal (applies to non-numeric resul ts) [facility] ([facility]) Albumin/Globulin Ratio 1.06 1.00-1.93 Normal (applies to non-numeric results) [facility] ([facility]) Total Protein 7.4 GM/DL 6.4-8.2 Normal (applies to non-numeric re sults) [facility] ([facility]) Albumin 3.8 GM/DL 3.2-5.2 Normal (applies to non-numeric resul ts) [facility] ([facility]) ID Date Data Source [id number] 11/29/2019 03:30:00 PM EDT [facility] ([facility]) Name Value Range Interpretation Code Description Data Aby rce(s) Supporting Document(s) White Blood Count 11.0 10 4.0-10.0 Above high normal [facility] ([facility]) Red Blood Count 4.34 10 4.00-5.40 Normal (applies to non-numeric results) [facility] ([facility]) Hemoglobin 13.6 g/dL 12.0-15.5 Normal (applies to non-numeric resul ts) [facility] ([facility]) Hematocrit 41.1 % 36.0-47.0 Normal (applies to non-numeric resul ts) [facility] ([facility]) Mean Corpuscular HGB Conc 33.1 g/dL 32.0-36.5 Normal (applies to non-numeric results) [facility] ([facility]) Mean Corpuscular Hemoglobin 31.3 pg 27.0-33.0 Norm al (applies to non-numeric results) [facility] ([facility]) Red Cell Distribution Width 18.6 % 11.5-14.5 Above high normal [facility] ([facility]) Mean Corpuscular Volume 94.7 fl 80.0-96.0 Normal ( applies to non-numeric results) [facility] ([facility]) [place] % 7.3 % 0.0-5.0 Above high normal [facility] ([facility]) Platelet Count, Automated 216 10 150-450 Normal (applies to non-numeric results) [facility] ([facility]) Neutrophils % 60.4 % 36.0-66.0 Normal (applies to non-numeric re sults) [facility] ([facility]) Lymph % 19.8 % 24.0-44.0 Below low normal [facility] ( [facility]) Immature Granulocyte % 0.5 % 0-3.0 Normal (applies to non-n umeric results) [facility] ([facility]) Eos % 11.1 % 0.0-3.0 Above high normal [facility] ([facility]) Baso % 0.9 % 0.0-1.0 Normal (applies to non-numeric resul ts) [facility] ([facility]) Neutrophils # 6.6 10 1.5-8.5 Normal (applies to non-numeric re sults) [facility] ([facility]) Nucleated Red Blood Cell % 0.0 % 0-0 Normal (applies to n on-numeric results) [facility] ([facility]) [place] # 0.8 10 0.0-0.8 Normal (applies to non-numeric resul ts) [facility] ([facility]) Lymph # 2.2 10 1.5-5.0 Normal (applies to non-numeric resul ts) [facility] ([facility]) Eos # 1.2 10 0.0-0.5 Above high normal [facility] ([facility]) Baso # 0.1 10 0.0-0.2 Normal (applies to non-numeric resul ts) [facility] ([facility]) ID Date Data Source [id number] 11/29/2019 03:30:00 PM EDT [facility] ([facility]) Name Value Range Interpretation Code Description Data Aby rce(s) Supporting Document(s) Glucose, Fasting 94 mg/dL 70-100 Normal (applies to non-numeric results) [facility] ([facility]) Glomerular Filtration Rate Laboratory test result Normal (applies to non- numeric results) [facility] ([facility]) <content>Units are mL/min/1.73 m2</content>
<content></content>
<content>Chronic Kidney Disease Staging per NKF:</content>
<content></content>
<content>Stage I & II GFR >=60 Normal to Mildly Decreased</content>
<content>Stage III GFR 30- 59 Moderately Decreased</content>
<content>Stage IV GFR 15-29 Severely Decreased</content>
<content>Stage V GFR <15 Very Little GFR Left</content>
<content>ESRD GFR <15 on HEAD AND NECK SURGEON</content>
<content></content> Creatinine For GFR 0.80 mg/dL 0.55-1.30 Normal (applies to non -numeric results) [facility] ([facility]) Blood Urea Nitrogen 9 mg/dL 7-18 Normal (applies to non-nume beny results) [facility] ([facility]) Sodium Level 139 meq/L 136-145 Normal (applies to non-numeric res ults) [facility] ([facility]) Potassium Serum 4.3 meq/L 3.5-5.1 Normal (applies to non-numeric results) [facility] ([facility]) Carbon Dioxide Level 29 meq/L 21-32 Normal (applies to non-num eladio results) [facility] ([facility]) Chloride Level 106 meq/L 98-107 Normal (applies to non-numeric r esults) [facility] ([facility]) Calcium Level 9.2 mg/dL 8.8-10.2 Normal (applies to non-numeric re sults) [facility] ([facility]) Anion Gap 4 meq/L 8-16 Below low normal [facility] ( [facility]) ID Date Data Source [id number] 11/29/2019 12:00:00 AM EDT [facility] Arnoldo Cortez Pa-C Patient Name: ABDULKADIR [id number] Date [facility] : 1955[facility] [place] [address] Date of Exam: 11/29/2019PH#: Fax: [phone] EXAM: [...] base subsegmental atelectatic change. Considerfollowup.ELOY Wooten /Eamon anguiano for referring DUY RODRIGUEZ to our office. Electronically Signed - JARROD ZAPATA DO 11/29/19 16:55 Name Value Range Interpretation Code Description Data Aby rce(s) Supporting Document(s) ID Date Data Source [id number] 11/27/2019 01:45:00 PM EDT [facility] Name Value Range Interpretation Code Description Data Aby rce(s) Supporting Document(s) Coronavirus 2019 Nasopharygeal Laboratory test result [facility] ([facility]) Testing was performed using the audrey(R) SARS-CoV-2 test. This test was developed and its performance characteristics determined by [employer]. This test has not been FDA cleared [...] terminated or revoked sooner. Performed at: - [facility] [address] [id number] [place] Operator: Tammy Sarmiento MD, Phone: [phone] Not Detected ID Date Data Source [id number] 11/27/2019 01:45:00 PM EDT [facility] Name Value Range Interpretation Code Description Data Aby rce(s) Supporting Document(s) SARS CORONAVIRUS 2 RNA [facility] This lab was ordered by [facility] and reported by [facility]. ID Date Data Source [id number] 11/06/2019 09:53:38 AM EDT [facility] Name Value Range Interpretation Code Description Data Aby rce(s) Supporting Document(s) Progress Note [facility] ADAZWr5dNiVDRuRm93/OQFrdMGWra7SqIZylBJq8CEwrUGLiD1OpSBR9yN0nBIG6MAbZPwQwDjPjFoDw lbm [file] Njg1Xu94lj86l8+++ed6r/8R/FIELD SEISMOLOGIST+jKm1p0Gs2hkz68 [file] ogICAgICAgICAgICAgICAgICAgICAgICAgICAgICAgICAgICAgICAgICAgICAgICAgICAgICAgICAgIC AgICAgICAgICAgICAgICAgICAgICAgICAgICAgICAgICAgICAgICAgDQogICAgICAgICAgICAgICAgIC AgICAgICAgICAgICAgICAgICAgICAgICAgICAgICAg ICAgICAgICAgICAgICAgICAgICAgICAgICAgICAgICAgICAgICAgICAgICAgICAgICAgDQogICAgICAg ICAgICAgICAgICAgICAgICAgICAgICAgICAgICAgICAgICAgICAgICAgICAgICAgICAgICAgICAgICAg ICAgICAgICAgICAgICAgICAgICAgICAgICAgICAgIC AgDQogICAgICAgICAgICAgICAgICAgICAgICAgICAgICAgICAgICAgICAgICAgICAgICAgICAgICAgIC AgICAgICAgICAgICAgICAgICAgICAgICAgICAgICAgICAgICAgICAgICAgDQogICAgICAgICAgICAgIC AgICAgICAgICAgICAgICAgICAgICAgICAgICAgICAg ICAgICAgICAgICAgICAgICAgICAgICAgICAgICAgICAgICAgICAgICAgICAgICAgICAgICAgDQogICAg ICAgICAgICAgICAgICAgICAgICAgICAgICAgICAgICAgICAgICAgICAgICAgICAgICAgICAgICAgICAg ICAgICAgICAgICAgICAgICAgICAgICAgICAgICAgIC AgICAgDQogICAgICAgICAgICAgICAgICAgICAgICAgICAgICAgICAgICAgICAgICAgICAgICAgICAgIC AgICAgICAgICAgICAgICAgICAgICAgICAgICAgICAgICAgICAgICAgICAgICAgDQogICAgICAgICAgIC AgICAgICAgICAgICAgICAgICAgICAgICAgICAgICAg ICAgICAgICAgICAgICAgICAgICAgICAgICAgICAgICAgICAgICAgICAgICAgICAgICAgICAgICAgDQog ICAgICAgICAgICAgICAgICAgICAgICAgICAgICAgICAgICAgICAgICAgICAgICAgICAgICAgICAgICAg ICAgICAgICAgICAgICAgICAgICAgICAgICAgICAgIC AgICAgICAgDQogICAgICAgICAgICAgICAgICAgICAgICAgICAgICAgICAgICAgICAgICAgICAgICAgIC FwQSNqUZWjFSNvXZCfABGuVIGqXXVoAQFjSIEtNHJfLWEyECYfPGDxPVLcIRGmSOIgXKn8B7ddKHWqJZ UiKT4hHPa9Xg1+PNpHSbLgXEZ4hkQkcS5VMJ0ov6Cp ZBzmHMCov7NeVSw7OL0LDHRjUBsgKB5NHArntf0QVRNxSHRmqHGWo5sxLtZdQYX6LMUsSfdpEY9ZFQIv K3ohxkXsLQLsAVSRBXrlEMQQHKeiAQYEIDTzTBNkUlPrRbKoLLZpLJNeRQEMNYW1OORfOaYlSZXqNPSc TzPwSRYGOEImNUQaIbKzRFcxHM9Nv5QfnHQpEV8MXy 0TXuGiWF7hlu3JWSVnFCBlLgcWQyj3FAxyNA8BcOLqpVG5GCFrGSZMNoRtV7aqy0JhSXZuYGCIETxrKS 9Eq5FnpCUoEUo+Nc4PNY2ie2YzXYw0FPPwKA1aud9PFXkGLwXgE1BchNfaVDJou3mtMBZxIP5cqPBvLL X1OYvqTV4bqZ3qWbASfWlgFNAnROIdGx27NuMdYbMk VVU4WVRjSG9iNMfnFH5WRKX2AAqmOXZcAWPgM4nRRzKlBVY2TwZwtMhsGS4VTxBoW4JnltQvjUG7NtKn IFINCj4+OGhqpnPwVtcUFaW5SBOvk6XjQBm6ZK6JUKUsFMjeCL9MRXXszJ1gRVmyUF9HXgQ7JBMlAJMD XxTnI42hmTAzASe2O5SePcCwORNdVgmkYAZfIOdhLo FtZXMgWyBdDQogID4+ID4+MFkvBM0YRGejnwXmDCGgTc4OTNWuMKQeKP7oXWNvLQZnZ4B6eApvLBFGBb RmI1zdlqrwJT7oMITuG424cLghecJhGXPcYWGrXe6WSYVfFJI4OPZteUEeWYKdFNPORTmmBI8MgMOyMQ T2iS9kESmfRWQmUFPxN6uYEmOvgYgvOQ21kMeoizXv bCBdDQo+Ft8LMY1kw3EfGNd8dgZwBAdaTQC6XVbfHQTqMSWfDXQiYUU9ESF9BGYRSfVmKNLiWDJmRBkw HEOiYUAkth5PROZlIEP6VBCqJkTlUJWmSFTiHPgfBMLjRBU4ZXU1JUJdPLTmIR2YHlBzDRYgQHCbQTfy YSZzOPIujl4LFXHvHDEwIZNzGiFpCIQdZONkECujGK YaEDZ7UgDpCSOmKZMwAO1NClDuXACrCVl6CgGjHYHzHNIrll4PGYPvOTQeNRAuVUSrDBLbTESwBYnyZD GmTOEoUYUwLSEqDTKuDB1XSxVfAHXtYKItYXUxBFMuNDIozm3BWQCbJFBtLLYxYrSsKZSoEDLwZOycEC PzEJG9YpY1GBVeLERfXT0EPoFlZMOiQlP1WomrCJZo CPZepl4HQFNrSBXgUTHpCYNiRNAyYMWtNFsmVBMdZTW3GBO7OUTqOJGzDP0QDxQkBLUxAkW0INGtRBQl VLAwmu0QCMTmCCDgJDG0LOMfTFRoZFRuYNiyANXgMVV0XthvSTOgWAKnNF3UQeMmLFTxXpA8GsliGOTl RKVozt8JZFUmWSLjZCduMFOxMJAjUEAtZSenBWXtXS I6EBA1SLHyOWDfMC3PJwGfTZGbRqWpLgJyMYKaUUYjdi7PBLAfSRNyJzZrUpPcFEZkXIYwSGafVVCbOW V0ExKyPEXmHGSbSR8HJkMgTREsZmy8UySjLNWmRVTruj8NXTSeEDAzXuh0EUQvVMEfEKBeHEmeVLXoSW N2LXFwFZFuNJLcCL7BInZpWAVaYro9UKClRAVgRSGc ra6CYJFhZDCvIEJbSCMpSVYcQGHcODlvVVQiVOA7EbDtJZOhDCLeDB6YMcBdARJqCPO5VdIzCPWyGKIb yy9DWXEnDAZ8ZKO1NjWsXDPoZZUoYRyfHSGgLLAuYoD5KAOtTZMhAU7HCaYxNWCuPKK2DSWcGOOdONKk uy3DDWAzLFC5UMM3MrXwWOJdOJOwZNjcCAAjLJCsZz C9YCEqIGBxFQ8MOlNaNUVdCTD8XUPwTBOnEBDazz6FTNJiJZB8Cvj7LFCyKUUhJUGlBBevYTTaMWNpNP M6BRYlOZSdNG8OAfZmZARzUIOhUSHqUHTuRSZhfi4LRXFoEWJ0BDL3UIAyLHIcVAUyCJbsJVNoNSZ5Sv H8OVIzAAQlEM3UHyRePIZdSIWoMJgyNFNiAXTnsw2B ZQGzNVM7BjP5DIPvRCWeQCCzVGyoJXVfQFI6JUT0XYAiNMXlVC5KFcHnMJlwIFOHTvw6NXdjW6a2UXN8 Eo3FD5Vct4GlIBIuWUDGCXmwHH2xiqGlIQKcVx2QX2xHYkzfEWG6MUt3EJQ3RWL3SfUbD3DjUlGcZnM0 LvMdWvZxIm7lPXGuIkByJlU3XChaANksDGN4XzT8FG J3JVDdHnHwUKWwTkAyLN2HRc0EOqD8JHH6mUJhBd2VWTM6UngMXlNlJG6ETXn= ID Date Data Source [id number] 10/27/2019 11:58:00 AM EST [facility] ([facility]) Name Value Range Interpretation Code Description Data Aby rce(s) Supporting Document(s) Gastrointestinal (GI) Panel Laboratory test result [facility] ([facility]) This Gastrointestinal PCR Panel detects the [...] NUCLEIC ACID PCR ID Date Data Source [id number] 10/27/2019 11:09:00 AM EST [facility] ([facility]) Name Value Range Interpretation Code Description Data Aby rce(s) Supporting Document(s) Magnesium [Mass/volume] in Serum or Plasma 4.8 mg/dL 1.8-2 .4 Above upper panic limits [facility] ([facility]) ID Date Data Source [id number] 10/27/2019 11:09:00 AM EST [facility] ([facility]) Name Value Range Interpretation Code Description Data Aby rce(s) Supporting Document(s) Glucose, Fasting 108 mg/dL 70-100 Above high normal [facility] ([facility]) Glomerular Filtration Rate 34.8 Below low normal [facility] ([facility]) <content>Units are mL/min/1.73 m2</content>
<content></content>
<content>Chronic Kidney Disease Staging per NKF:</content>
<content></content>
<content>Stage I & II GFR >=60 Normal to Mildly Decreased</content>
<content>Stage III GFR 30- 59 Moderately Decreased</content>
<content>Stage IV GFR 15-29 Severely Decreased</content>
<content>Stage V GFR <15 Very Little GFR Left</content>
<content>ESRD GFR <15 on HEAD AND NECK SURGEON</content>
<content></content> Blood Urea Nitrogen 32 mg/dL 7-18 [facility] Creatinine For GFR 1.58 mg/dL 0.55-1.30 Above high normal [facility] Potassium Serum 5.9 meq/L 3.5-5.1 Above high normal [facility] ([facility]) Sodium Level 130 meq/L 136-145 Below low normal [facility] ([facility]) Chloride Level 100 meq/L 98-107 Normal (applies to non-numeric r esults) [facility] ([facility]) Carbon Dioxide Level 22 meq/L 21-32 Normal (applies to non-num eladio results) [facility] ([facility]) Anion Gap 8 meq/L 8-16 Normal (applies to non-numeric resul ts) [facility] ([facility]) Calcium Level 7.0 mg/dL 8.8-10.2 [facility] ([facility]) ID Date Data Source [id number] 10/27/2019 09:18:00 AM EST [facility] ([facility]) Name Value Range Interpretation Code Description Data Aby rce(s) Supporting Document(s) Laboratory test finding (navigational concept) 128 mg/dL 7 0-105 Above high normal [facility] ([facility]) Laboratory test finding (navigational concept) 124 meq/L 1 36-145 Below low normal [facility] ([facility]) Laboratory test finding (navigational concept) 46.0 % 3 8.0-51.0 Normal (applies to non-numeric results) [facility] ([facility]) Laboratory test finding (navigational concept) 4.1 mg/dL 4 .5-5.3 Below low normal [facility] ([facility]) Laboratory test finding (navigational concept) 5.5 meq/L 3 .5-5.1 Above high normal [facility] ([facility]) Laboratory test finding (navigational concept) 19.0 MM/L 2 3.0-27.0 Below low normal [facility] ([facility]) Laboratory test finding (navigational concept) 98 meq/L 9 8-109 Normal (applies to non-numeric results) [facility] ([facility]) Laboratory test finding (navigational concept) 33 mg/dL 8-26 Above high normal [facility] ([facility]) Laboratory test finding (navigational concept) 1.7 mg/dL 0 .6-1.3 Above high normal [facility] ([facility]) ID Date Data Source [id number] 10/27/2019 09:16:00 AM EST [facility] ([facility]) Name Value Range Interpretation Code Description Data Aby rce(s) Supporting Document(s) Glucose, Fasting 123 mg/dL 70-100 Above high normal [facility] ([facility]) Creatinine For GFR 1.74 mg/dL 0.55-1.30 Above high normal [facility] ([facility]) Glomerular Filtration Rate 31.2 Below low normal [facility] ([facility]) <content>Units are mL/min/1.73 m2</content>
<content></content>
<content>Chronic Kidney Disease Staging per NKF:</content>
<content></content>
<content>Stage I & II GFR >=60 Normal to Mildly Decreased</content>
<content>Stage III GFR 30- 59 Moderately Decreased</content>
<content>Stage IV GFR 15-29 Severely Decreased</content>
<content>Stage V GFR <15 Very Little GFR Left</content>
<content>ESRD GFR <15 on HEAD AND NECK SURGEON</content>
<content></content> Blood Urea Nitrogen 37 mg/dL 7-18 Above high normal [facility] ([facility]) Potassium Serum 5.4 meq/L 3.5-5.1 Above high normal [facility] ([facility]) This specimen has an elevated potassium level but there is NO visible hemolysis noted. Sodium Level 125 meq/L 136-145 Below low normal [facility] ([facility]) Chloride Level 96 meq/L 98-107 Below low normal [facility] ([facility]) Calcium Level 8.6 mg/dL 8.8-10.2 Below low normal [facility] ([facility]) Carbon Dioxide Level 18 meq/L 21-32 Below low normal [facility] ([facility]) Anion Gap 11 meq/L 8-16 Normal (applies to non-numeric resul ts) [facility] ([facility]) ID Date Data Source [id number] 10/27/2019 09:16:00 AM EST [facility] ([facility]) Name Value Range Interpretation Code Description Data Aby rce(s) Supporting Document(s) Magnesium [Mass/volume] in Serum or Plasma 5.5 mg/dL 1.8-2 .4 Above upper panic limits [facility] ([facility]) Lipase [Enzymatic activity/volume] in Serum or Plasma 31 U/L 73-393 Below low normal [facility] ([facility]) Lactate [Mass/volume] in Serum or Plasma 2.6 mmol/L 0.4-2.0 Above upper panic limits [facility] ([facility]) Y/N query for Sepsis Lactate Rule: Y ID Date Data Source [id number] 10/27/2019 09:16:00 AM EST [facility] ([facility]) Name Value Range Interpretation Code Description Data Aby rce(s) Supporting Document(s) Alt/SGPT 22 U/L 12-78 Normal (applies to non-numeric resul ts) [facility] ([facility]) Ast/Sgot 34 U/L 7-37 Normal (applies to non-numeric resul ts) [facility] ([facility]) Alkaline Phosphatase 72 U/L 45-117 Normal (applies to non-num eladio results) [facility] ([facility]) Bilirubin,Total 0.7 mg/dL 0.2-1.0 Normal (applies to non-numeric results) [facility] ([facility]) Total Protein 7.2 GM/DL 6.4-8.2 Normal (applies to non-numeric re sults) [facility] ([facility]) Albumin 3.4 GM/DL 3.2-5.2 Normal (applies to non-numeric resul ts) [facility] ([facility]) Bilirubin,Direct 0.2 mg/dL 0.0-0.2 Normal (applies to non-numeric results) [facility] ([facility]) Albumin/Globulin Ratio 0.89 1.00-1.93 Below low normal [facility] ([facility]) ID Date Data Source [id number] 10/27/2019 09:16:00 AM EST [facility] ([facility]) Name Value Range Interpretation Code Description Data Aby rce(s) Supporting Document(s) White Blood Count 25.0 10 4.0-10.0 Above high normal [facility] ([facility]) Red Blood Count 4.93 10 4.00-5.40 Normal (applies to non-numeric results) [facility] ([facility]) Mean Corpuscular Volume 88.6 fl 80.0-96.0 Normal ( applies to non-numeric results) [facility] ([facility]) Hemoglobin 14.5 g/dL 12.0-15.5 Normal (applies to non-numeric resul ts) [facility] ([facility]) Hematocrit 43.7 % 36.0-47.0 Normal (applies to non-numeric resul ts) [facility] ([facility]) Mean Corpuscular HGB Conc 33.2 g/dL 32.0-36.5 Normal (applies to non-numeric results) [facility] ([facility]) Mean Corpuscular Hemoglobin 29.4 pg 27.0-33.0 Norm al (applies to non-numeric results) [facility] ([facility]) Platelet Count, Automated 294 10 150-450 Normal (applies to non-numeric results) [facility] ([facility]) Red Cell Distribution Width 19.0 % 11.5-14.5 Above high normal [facility] ([facility]) Neutrophils % 91.8 % 36.0-66.0 Above high normal [facility] ([facility]) Eos % 0.0 % 0.0-3.0 Normal (applies to non-numeric resul ts) [facility] ([facility]) [place] % 2.8 % 0.0-5.0 Normal (applies to non-numeric resul ts) [facility] ([facility]) Lymph % 4.8 % 24.0-44.0 Below low normal [facility] ( [facility]) Immature Granulocyte % 0.4 % 0-3.0 Normal (applies to non-n umeric results) [facility] ([facility]) Baso % 0.2 % 0.0-1.0 Normal (applies to non-numeric resul ts) [facility] ([facility]) Neutrophils # 22.9 10 1.5-8.5 Above high normal [facility] ([facility]) Nucleated Red Blood Cell % 0.1 % 0-0 Above high normal [facility] ([facility]) Lymph # 1.2 10 1.5-5.0 Below low normal [facility] ( [facility]) [place] # 0.7 10 0.0-0.8 Normal (applies to non-numeric resul ts) [facility] ([facility]) Baso # 0.1 10 0.0-0.2 Normal (applies to non-numeric resul ts) [facility] ([facility]) Eos # 0.0 10 0.0-0.5 Normal (applies to non-numeric resul ts) [facility] ([facility]) Procedure Social History Code Duration Value Status Description Data Source(s ) Smoking 09/09/2020 12:00:00 AM EST Patient is a former smoker completed Patient is a former smoker [facility] Smoking 09/08/2020 12:00:00 AM EST Patient is a former smoker completed Patient is a former smoker [facility] ([facility]) Alcohol intake 02/18/2020 12:00:00 AM EDT Current non-d breanna of alcohol (finding) completed Current non-drinker of alcohol (finding) [facility] Cigarette pack-years 02/18/2020 12:00:00 AM EDT UNK completed [facility] Cigarettes smoked current (pack per day) - Reported 02/18/20 12:00:00 AM EDT UNK completed [facility] Smoking 02/18/2020 12:00:00 AM EDT Former smoker completed Former smoker [facility] Alcohol intake 11/05/2019 12:00:00 AM EDT Current non-d breanna of alcohol (finding) completed Current non-drinker of alcohol (finding) [facility] Cigarette pack-years 11/05/2019 12:00:00 AM EDT UNK [facility] Cigarettes smoked current (pack per day) - Reported 11/05/19 12:00:00 AM EDT UNK completed [facility] Smoking 11/05/2019 12:00:00 AM EDT Former smoker completed Former smoker [facility] Vital Signs ID Date Data Source UNK Name Value Range Interpretation Code Description Data Source(s) [place] body weight 100 [lb_av] 100 [lb_av] [facility] ([facility]) Oxygen saturation in Arterial blood by Pulse oximetry 98 % 98 % [facility] ([facility]) Body temperature 97.7 [degF] 97.7 [degF] [facility] ([facility]) Respiratory rate 14 /min 14 /min [facility] ( [facility]) Heart rate 93 /min 93 /min [facility] ([facility]) Body mass index (BMI) [Ratio] 24.2 kg/m2 24.2 k g/m2 [facility] ([facility]) Body weight 125.00 [lb_av] 125.00 [lb_av] MEDEN T ([facility]) Body height 60.2 [in_i] 60.2 [in_i] [facility] ([facility]) 5'0.20" Diastolic blood pressure 72 mm[Hg] 72 mm[Hg] [facility] ([facility]) Systolic blood pressure 133 mm[Hg] 133 mm[Hg] M EDENT ([facility]) [place] body weight 100 [lb_av] 100 [lb_av] MEDEN T ([facility]) Oxygen saturation in Arterial blood by Pulse oximetry 94 % 94 % [facility] ([facility]) Body temperature 98.5 [degF] 98.5 [degF] [facility] ([facility]) Respiratory rate 18 /min 18 /min [facility] ( [facility]) Heart rate 105 /min 105 /min [facility] ([facility]) Body mass index (BMI) [Ratio] 24.4 kg/m2 24.4 k g/m2 [facility] ([facility]) Body weight 126.00 [lb_av] 126.00 [lb_av] MED[facility] T ([facility]) Body height 60.2 [in_i] 60.2 [in_i] [facility] ([facility]) 5'0.20" Diastolic blood pressure 74 mm[Hg] 74 mm[Hg] [facility] ([facility]) Systolic blood pressure 130 mm[Hg] 130 mm[Hg] [facility] ([facility]) Body temperature 96.2 [degF] 96.2 [degF] [facility] ([facility]) Body surface area Derived from formula 1.53 m2 1.53 m2 [facility] ([facility], ) Body weight 57.154 kg 57.154 kg [facility] ([facility], ) [place] body weight 100 [lb_av] 100 [lb_av] MEDEN T ([facility], ) Body mass index (BMI) [Ratio] 24.6 kg/m2 24.6 k g/m2 [facility] ([facility], ) Body weight 126.00 [lb_av] 126.00 [lb_av] [facility] Stated Body height 60 [in_i] 60 [in_i] [facility] ([facility], ) 5'0" Diastolic blood pressure 72 mm[Hg] 72 mm[Hg] [facility] ([facility], ) Systolic blood pressure 120 mm[Hg] 120 mm[Hg] M LEXX ([facility], ) [place] body weight 100 [lb_av] 100 [lb_av] MEDEN T ([facility]) Oxygen saturation in Arterial blood by Pulse oximetry 99 % 99 % [facility] ([facility]) Body temperature 98.7 [degF] 98.7 [degF] [facility] ([facility]) Respiratory rate 20 /min 20 /min [facility] ( [facility]) Heart rate 87 /min 87 /min [facility] ([facility]) Body mass index (BMI) [Ratio] 24.6 kg/m2 24.6 k g/m2 [facility] ([facility]) Body weight 127.00 [lb_av] 127.00 [lb_av] MED[facility] T ([facility]) Body height 60.2 [in_i] 60.2 [in_i] [facility] ([facility]) 5'0.20" Diastolic blood pressure 70 mm[Hg] 70 mm[Hg] [facility] ([facility]) Systolic blood pressure 136 mm[Hg] 136 mm[Hg] [facility]) Diastolic blood pressure--sitting 81 mm[Hg] 81 mm[Hg] [facility] ([facility]) CBP, adult cuff/LA Systolic blood pressure--sitting 152 mm[Hg] 152 mm[Hg] [facility] ([facility]) CBP, adult cuff/LA Heart rate 87 /min 87 /min [facility] ([facility]) Body mass index (BMI) [Ratio] 25.4 kg/m2 25.4 k g/m2 [facility] ([facility]) Body height 60 [in_i] 60 [in_i] [facility] ([facility] 5'0" Body weight 130.00 [lb_av] 130.00 [lb_av] MED[facility] T ([facility]) [place] body weight 100 [lb_av] 100 [lb_av] MED[facility] T ([facility]) Oxygen saturation in Arterial blood by Pulse oximetry 96 % 96 % [facility] ([facility]) Body temperature 97.4 [degF] 97.4 [degF] [facility] ([facility]) Respiratory rate 18 /min 18 /min [facility] ( [facility]) Heart rate 85 /min 85 /min [facility] ([facility]) Body height 60.2 [in_i] 60.2 [in_i] [facility] 5'0.20" Diastolic blood pressure 70 mm[Hg] 70 mm[Hg] [facility] ([facility]) Systolic blood pressure 124 mm[Hg] 124 mm[Hg] M EDENT ([facility]) [place] body weight 100 [lb_av] 100 [lb_av] MED[facility] T ([facility]) Oxygen saturation in Arterial blood by Pulse oximetry 93 % 93 % [facility] ([facility]) Body temperature 97.5 [degF] 97.5 [degF] [facility] ([facility]) Respiratory rate 18 /min 18 /min [facility] ( [facility]) Heart rate 91 /min 91 /min [facility] ([facility]) Body mass index (BMI) [Ratio] 25.5 kg/m2 25.5 k g/m2 [facility] ([facility]) Body weight 131.50 [lb_av] 131.50 [lb_av] MED[facility] T ([facility]) Body height 60.2 [in_i] 60.2 [in_i] [facility] ([facility]) 5'0.20" Diastolic blood pressure 76 mm[Hg] 76 mm[Hg] [facility] ([facility]) Systolic blood pressure 140 mm[Hg] 140 mm[Hg] M EDENT ([facility]) Body mass index (BMI) [Ratio] 19.0 kg/m2 19.0 k g/m2 [facility] ([facility]) Body weight 131.38 [lb_av] 131.38 [lb_av] MED[facility] T ([facility]) Body height 69.75 [in_i] 69.75 [in_i] [facility] ([facility]) 5'9.75" Body temperature 97.1 [degF] 97.1 [degF] [facility] ([facility]) Body surface area Derived from formula 1.56 m2 1.56 m2 [facility] ([facility]) Body weight 59.422 kg 59.422 kg [facility] ([facility]) [place] body weight 100 [lb_av] 100 [lb_av] MED[facility] T ([facility]) Body mass index (BMI) [Ratio] 25.6 kg/m2 25.6 k g/m2 [facility] ([facility]) Body weight 131.00 [lb_av] 131.00 [lb_av] [facility] T ([facility]) Body height 60 [in_i] 60 [in_i] [facility] ([facility]) 5'0" Oxygen saturation in Arterial blood by Pulse oximetry 91 % 91 % [facility] ([facility]) 89 ra Heart rate 102 /min 102 /min [facility] ([facility]) Diastolic blood pressure 80 mm[Hg] 80 mm[Hg] [facility] ([facility]) Systolic blood pressure 160 mm[Hg] 160 mm[Hg] [facility] ([facility]) Body weight 60.896 kg 60.896 kg [facility] ([facility]) [place] body weight 100 [lb_av] 100 [lb_av] [facility] Body mass index (BMI) [Ratio] 26.2 kg/m2 26.2 k g/m2 [facility] ([facility]) Body weight 134.25 [lb_av] 134.25 [lb_av] [facility] Body height 60 [in_i] 60 [in_i] [facility] ([facility]) 5'0" Diastolic blood pressure 60 mm[Hg] 60 mm[Hg] [facility] ([facility]) Systolic blood pressure 135 mm[Hg] 135 mm[Hg] [facility] ([facility]) [place] body weight 100 [lb_av] 100 [lb_av] MEDEN ([facility]) Oxygen saturation in Arterial blood by Pulse oximetry 99 % 99 % [facility] ([facility]) Body temperature 98.3 [degF] 98.3 [degF] [facility] ([facility]) [facility]piratory rate 16 /min 16 /[facility] Heart rate 97 /min 97 /min [facility] ([facility]) Body mass index (BMI) [Ratio] 25.4 kg/m2 25.4 k g/m2 [facility] ([facility]) Body weight 131.00 [lb_av] 131.00 [lb_av] [facility] T ([facility]) Body height 60.2 [in_i] 60.2 [in_i] [facility] 5'0.20" Diastolic blood pressure 80 mm[Hg] 80 mm[Hg] [facility] ([facility]) Systolic blood pressure 138 mm[Hg] 138 mm[Hg] M [facility] ([facility]) [place] body weight 100 [lb_av] 100 [lb_av] MED[facility] T ([facility]) Oxygen saturation in Arterial blood by Pulse oximetry 99 % 99 % [facility] ([facility]) Body temperature 97.8 [degF] 97.8 [degF] [facility]) Respiratory rate 16 /min 16 /min [facility] ( [facility]) Heart rate 87 /min 87 /min [facility] ([facility]) Body height 60.2 [in_i] 60.2 [in_i] [facility] ([facility]) 5'0.20" Diastolic blood pressure 80 mm[Hg] 80 mm[Hg] [facility] ([facility]) Systolic blood pressure 122 mm[Hg] 122 mm[Hg] [facility] Body weight 59.875 kg 59.875 [facility] [place] body weight 100 [lb_av] 100 [lb_av] MED[facility] T ([facility], ) Body mass index (BMI) [Ratio] 25.8 kg/m2 25.8 k g/m2 [facility] ([facility], ) Body weight 132.00 [lb_av] 132.00 [lb_av] MEDEN T ([facility], ) Body height 60 [in_i] 60 [in_i] [facility] ([facility], ) 5'0" Diastolic blood pressure 60 mm[Hg] 60 mm[Hg] [facility] ([facility], ) Systolic blood pressure 120 mm[Hg] 120 mm[Hg] M EDENT ([facility], ) Diastolic blood pressure--sitting 74 mm[Hg] 74 mm[Hg] [facility] ([facility]) CBP, adult cuff/Ra Systolic blood pressure--sitting 125 mm[Hg] 125 mm[Hg] [facility] ([facility]) CBP, adult cuff/Ra Heart rate 90 /min 90 /min [facility] ([facility]) Body mass index (BMI) [Ratio] 24.8 kg/m2 24.8 k g/m2 [facility] ([facility]) Body height 60 [in_i] 60 [in_i] [facility] ([facility]) 5'0" Body weight 127.00 [lb_av] 127.00 [lb_av] MED[facility] T ([facility]) [place] body weight 100 [lb_av] 100 [lb_av] MED[facility] T ([facility]) Oxygen saturation in Arterial blood by Pulse oximetry 96 % 96 % [facility] ([facility]) Body temperature 98.5 [degF] 98.5 [degF] [facility] ([facility]) Respiratory rate 20 /min 20 /min [facility] ( [facility]) Heart rate 99 /min 99 /min [facility] ([facility]) Body mass index (BMI) [Ratio] 23.1 kg/m2 23.1 k g/m2 [facility] ([facility]) Body weight 119.00 [lb_av] 119.00 [lb_av] [facility] T ([facility]) Body height 60.2 [in_i] 60.2 [in_i] [facility] ([facility]) 5'0.20" Diastolic blood pressure 76 mm[Hg] 76 mm[Hg] [facility] ([facility]) Systolic blood pressure 136 mm[Hg] 136 mm[Hg] [facility] [place] body weight 100 [lb_av] 100 [lb_av] MED[facility] T ([facility]) Oxygen saturation in Arterial blood by Pulse oximetry 97 % 97 % [facility] ([facility]) Body temperature 98.5 [degF] 98.5 [degF] [facility] ([facility]) Respiratory rate 20 /min 20 /min [facility] ( [facility]) Heart rate 82 /min 82 /min [facility] ([facility]) Body mass index (BMI) [Ratio] 26.4 kg/m2 26.4 k g/m2 [facility] ([facility]) Body weight 136.12 [lb_av] 136.12 [lb_av] MED[facility] T ([facility]) Body height 60.2 [in_i] 60.2 [in_i] [facility] ([facility]) 5'0.20" Diastolic blood pressure 80 mm[Hg] 80 mm[Hg] [facility]) Systolic blood pressure 118 mm[Hg] 118 mm[Hg] [facility] ([facility]) Body mass index (BMI) [Ratio] 26.6 kg/m2 26.6 k g/m2 [facility] ([facility]) Body weight 137.00 [lb_av] 137.00 [lb_av] MED[facility] T ([facility]) Body height 60.2 [in_i] 60.2 [in_i] [facility] ([facility]) 5'0.20" Oxygen saturation in Arterial blood by Pulse oximetry 93 % 93 % [facility] ([facility]) Body temperature 99.0 [degF] 99.0 [degF] [facility] ([facility]) Heart rate 81 /min 81 /min [facility] ([facility]) Body mass index (BMI) [Ratio] 29.1 kg/m2 29.1 k g/m2 [facility] ([facility]) Body weight 150.00 [lb_av] 150.00 [lb_av] MED[facility] T ([facility]) Body height 60.2 [in_i] 60.2 [in_i] [facility] ([facility]) 5'0.20" Diastolic blood pressure 72 mm[Hg] 72 mm[Hg] [facility] ([facility]) Systolic blood pressure 118 mm[Hg] 118 mm[Hg] M EDENT ([facility]) Respiratory rate 20 /min 20 /min [facility] ( [facility]) Systolic blood pressure 132 mm[Hg] 132 mm[Hg] M EDENT ([facility]) Oxygen saturation in Arterial blood by Pulse oximetry 97 % 97 % [facility] ([facility]) Body temperature 99.2 [degF] 99.2 [degF] [facility] ([facility]) Respiratory rate 97 /min 97 /min [facility] ( [facility]) Heart rate 98 /min 98 /min [facility] ([facility]) Body mass index (BMI) [Ratio] 27.4 kg/m2 27.4 k g/m2 [facility] ([facility]) Body weight 141.38 [lb_av] 141.38 [lb_av] MED[facility] T ([facility]) Body height 60.2 [in_i] 60.2 [in_i] [facility] ([facility]) 5'0.20" Diastolic blood pressure 74 mm[Hg] 74 mm[Hg] [facility] ([facility]) Oxygen saturation in Arterial blood by Pulse oximetry 95 % 95 % [facility] ([facility]) Body temperature 99.0 [degF] 99.0 [degF] [facility] ([facility]) Respiratory rate 18 /min 18 /min [facility] ( [facility]) Heart rate 89 /min 89 /min [facility] ([facility]) Body mass index (BMI) [Ratio] 28.2 kg/m2 28.2 k g/m2 [facility] ([facility]) Body weight 145.38 [lb_av] 145.38 [lb_av] MED[facility] T ([facility]) Body height 60.2 [in_i] 60.2 [in_i] [facility] ([facility]) 5'0.20" Diastolic blood pressure 74 mm[Hg] 74 mm[Hg] [facility] ([facility]) Systolic blood pressure 130 mm[Hg] 130 mm[Hg] [facility] ([facility]) Body mass index (BMI) [Ratio] 28.1 kg/m2 28.1 k g/m2 [facility] ([facility]) Body weight 144.00 [lb_av] 144.00 [lb_av] MED[facility] T ([facility], ) Body height 60 [in_i] 60 [in_i] [facility] ([facility]) 5'0" Oxygen saturation in Arterial blood by Pulse oximetry 97 % 97 % [facility] ([facility]) Room Air Heart rate 98 /min 98 /min [facility] ([facility]) Diastolic blood pressure 70 mm[Hg] 70 mm[Hg] [facility] ([facility]) Systolic blood pressure 122 mm[Hg] 122 mm[Hg] [facility] ([facility]) Body weight 65.318 kg 65.318 kg [facility] ([facility]) [place] body weight 100 [lb_av] 100 [lb_av] MED[facility] T ([facility]) Diastolic blood pressure--sitting 80 mm[Hg] 80 mm[Hg] [facility]) CBP adult cuff, Ra Systolic blood pressure--sitting 132 mm[Hg] 132 mm[Hg] [facility] ([facility]) CBP adult cuff, Ra Heart rate 79 /min 79 /min [facility] Body mass index (BMI) [Ratio] 28.3 kg/m2 28.3 k g/m2 [facility] ([facility]) Body height 60 [in_i] 60 [in_i] [facility] ([facility]) 5'0" Body weight 145.00 [lb_av] 145.00 [lb_av] MED[facility] T ([facility]) ID Date Data Source [id number] 06/11/2020 04:54:52 PM [facility] Hospital Name Value Range Interpretation Code Description Data Source(s) WEIGHT RECORDED 140 lb 140 lb [facility] Body height Measured 60 in 60 in [facility] WEIGHT RECORDED 140 lb 140 lb [facility] Body height Measured 60 in 60 in [facility] ID Date Data Source [id number] 11/06/2019 09:53:38 AM Health system Name Value Range Interpretation Code Description Data Source(s) WEIGHT RECORDED 139 lb 139 lb [facility] Body height Measured 60 in 60 in [facility] Patient Treatment Plan of Care Planned Activity Planned Date Details Description Data Source (s) maalox/lidocaine/diphenhydrAMINE 1:1:1 SWISH & SWAL or al suspension 10/23/2019 12:00:00 AM [facility] ospital Folic Acid 1 MG Oral Tablet 06/19/2019 12:00:00 AM [facility] Folic Acid 1 MG Oral Tablet 03/27/2019 12:00:00 AM [facility]
[2020-10-17] MEDS ORDERED: propofoL 500 MG/50 ML VIAL As Ordered ONE (12:44)
[2020-10-17] MEDS ORDERED: fentaNYL 100 MCG/2 ML INJECTION (J3010) As Ordered ONE (12:45)
[2020-10-17] MEDS ORDERED: MIDAZOLAM INJ 2MG/2ML VIAL (J2250 PER 1MG) As Ordered ONE (12:45)
[2020-10-17] MEDS ORDERED: CARV6.25 PO (12:48)
[2020-10-17] MEDS ORDERED: CYCL5TAB PO (12:48)
[2020-10-17] MEDS ORDERED: AMIO200T3 PO (12:48)
[2020-10-17] MEDS ORDERED: HYDR-4517 PO (12:48)
[2020-10-17] MEDS ORDERED: LASI20TA3 PO (12:48)
[2020-10-17] MEDS ORDERED: LIDOCAINE 2% 100MG/5ML SDV (FOR ANES.) As Ordered ONE (12:49)
[2020-10-17] MEDS ORDERED: propofoL 200 MG/20 ML VIAL As Ordered ONE (13:15)
[2020-10-17] MEDS ORDERED: ONDANSETRON 4MG/2ML VIAL As Ordered ONE (13:19)
[2020-10-17] MEDS ORDERED: LIDOCAINE 1% SDV 30ML VIAL As Ordered ONE (13:31)
[2020-10-17] MEDS ORDERED: MUPIROCIN 2% OINT 22 GM TUBE As Ordered ONE (13:31)
[2020-10-17] MEDS ORDERED: ISOVUE-300 61% 50ML VIAL As Ordered ONE (13:32)
--- NOTE | 2020-10-17 15:57 | REP ---
INDICATION: EXPLANT OF INTERNAL LOOP RECORDER AND IMPLANT. COMPARISON: None. TECHNIQUE: Single-view. 5 minutes 55 seconds of fluoroscopy time is reported. FINDINGS: A single last image hold fluoroscopically obtained spot radiograph of the chest documents pacemaker and loop recorder position. IMPRESSION: Procedural imaging. <Electronically signed by Delfino Cruz > 10/17/20 [id number]
--- NOTE | 2020-10-17 16:33 | REP ---
INDICATION: PACEMAKER, PACU 2236. COMPARISON: Comparison chest x-ray 04 July 2020. TECHNIQUE: Portable upright AP chest radiograph. 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 There is no evidence of pneumothorax. There is linear fibrosis in the right mid lung zone. Mild linear fibrosis versus platelike atelectasis is seen in the left perihilar region. Heart is not enlarged. Aorta is tortuous. There are clips in right upper quadrant of the abdomen and the patient is status post cervical spine fusion plating.. IMPRESSION: Pacemaker in place. Bilateral perihilar pop linear fibrosis. No complication seen.. <Electronically signed by Delfino Cruz > 10/17/20 [id number]
[2020-10-17] MEDS ORDERED: fentaNYL 100 MCG/2 ML INJECTION (J3010) IV PRN (16:45)
[2020-10-17] MEDS ORDERED: oxyCODONE 5MG TAB PO PRN (16:45)
[2020-10-17 17:00] VITALS: BP 119/73
[2020-10-17] MEDS ORDERED: ACETAMINOPHEN TAB 650MG DOSE (2X325MG) PO PRN (17:00)
[2020-10-17] MEDS ORDERED: NORCO, ANEXSIA 5/325MG TABLET (HYDROcodone/ACETAMINOPHEN) PO PRN (17:00)
--- OUTSIDE RECORDS SUMMARY | 2020-10-17 17:12 | CCD ---
Author Author [facility] Organization [facility] Address Unknown Phone Unavailable Care Team Providers Care [place] Utility Worker Name Role Phone Desiree'barney, Brianna Arnoldo PA [...] Tatiana HARDEN MD Unavailable Unavailable ANTECOL, Tatiana HARDNE MD Unavailable Unavailable ANTECOL, Tatiana HARDEN MD [...] Tatiana HARDEN MD Unavailable Unavailable ANTECOL, Tatiana HAREDN MD Unavailable Unavailable ANTECOL, Tatiana HARDEN MD [...] Unavailable AUGUST, L KIRA MD Unavailable Unavailable PLEASANT PLAINS, L KIRA MD Unavailable Unavailable PLEASANT [place]INS, L KIRA MD Unavailable Unavailable AUGUST, L KIRA MD Unavailable Unavailable PLEASANT [place]INS, L KIRA MD Unavailable Unavailable AUGUST, L KIRA MD Unavailable Unavailable AUGUST, L KIRA MD Unavailable Unavailable AUGUST, L KIRA MD Unavailable Unavailable AUGUST, L KIRA MD Unavailable Unavailable PLEASANT [place]INS, L KIRA MD Unavailable Unavailable AUGUST, L KIRA MD Unavailable Unavailable AUGUST, L KIRA MD Unavailable Unavailable PLEASANT [place]INS, L KIRA MD Unavailable Unavailable PLEASANT [place]INS, L KIRA MD Unavailable Unavailable PLEASANT [place]INS, L KIRA MD Unavailable Unavailable PLEASANT PLAINS, L KIRA MD Unavailable Unavailable PLEASANT [place]INS, L KIRA MD Unavailable Unavailable PLEASANT PLAINS, L KIRA MD Unavailable Unavailable PLEASANT PLAINS, L KIRA MD Unavailable Unavailable PLEASANT [place]INS, L KIRA MD Unavailable Unavailable PLEASANT PLAINS, L KIRA MD Unavailable Unavailable PLEASANT [place]INS, L KIRA MD Unavailable Unavailable PLEASANT [place]INS, L KIRA MD Unavailable Unavailable PLEASANT [place]INS, L KIRA MD Unavailable Unavailable PLEASANT PLAINS, L KIRA MD Unavailable Unavailable PLEASANT PLAINS, L KIRA MD Unavailable Unavailable PLEASANT [place]INS, L KIRA MD Unavailable Unavailable PLEASANT [place]INS, L KIRA MD Unavailable Unavailable PLEASANT [place]INS, L KIRA MD Unavailable Unavailable PLEASANT [place]INS, L KIRA MD Unavailable Unavailable PLEASANT [place]INS, L KIRA MD Unavailable Unavailable PLEASANT [place]INS, L KIRA MD Unavailable Unavailable PLEASANT [place]INS, L KIRA MD Unavailable Unavailable PLEASANT [place]INS, L KIRA MD Unavailable Unavailable PLEASANT [place]INS, L KIRA MD Unavailable Unavailable PLEASANT [place]INS, L KIRA MD Unavailable Unavailable PLEASANT [place]INS, L KIRA MD Unavailable Unavailable PLEASANT [place]INS, L KIRA MD Unavailable Unavailable PLEASANT [place]INS, L KIRA MD Unavailable Unavailable PLEASANT [place]INS, L KIRA MD Unavailable Unavailable PLEASANT [place]INS, L KIRA MD Unavailable Unavailable PLEASANT [place]INS, L KIRA MD Unavailable Unavailable PLEASANT [place]INS, L KIRA MD Unavailable Unavailable PLEASANT [place]INS, L KIRA MD Unavailable Unavailable PLEASANT [place]INS, L KIRA MD Unavailable Unavailable PLEASANT [place]INS, L KIRA MD Unavailable Unavailable PLEASANT [place]INS, L KIRA MD Unavailable Unavailable PLEASANT [place]INS, L KIRA MD Unavailable Unavailable PLEASANT [place]INS, L KIRA MD Unavailable Unavailable PLEASANT [place]INS, L KIRA MD Unavailable Unavailable PLEASANT PLAINS, L KIRA MD Unavailable Unavailable PLEASANT [place]INS, L KIRA MD Unavailable Unavailable PLEASANT [place]INS, L KIRA MD Unavailable Unavailable PLEASANT [place]INS, L KIRA MD Unavailable Unavailable PLEASANT [place]INS, L KIRA MD Unavailable Unavailable PLEASANT [place]INS, L KIRA MD Unavailable Unavailable PLEASANT [place]INS, L KIRA MD Unavailable Unavailable PLEASANT [place]INS, L KIRA MD Unavailable Unavailable PLEASANT [place]INS, L KIRA MD Unavailable Unavailable PLEASANT [place]INS, L KIRA MD Unavailable Unavailable PLEAS[place], L KIRA MD Unavailable Unavailable [place], L KIRA MD Unavailable Unavailable AUGUST, L KIRA MD Unavailable Unavailable [place], L KIRA MENDEZ Unavailable Unavailable AUGUST, L [...] Unavailable Justin, Milind PA Unavailable Unavailable Justin, Milidn PA Unavailable Unavailable Justin, Milind PA Unavailable [...] Unavailable CECY-ILEANA, THONG DO Unavailable Unavailable CECY-ILEANA, THOGN DO Unavailable Unavailable CECY-ILEANA, THONG DO Unavailable [...] Unavailable Unavailable CECY-ILEANA, THONG DO Unavailable Unavailable ECCY-ILEANA, THONG DO Unavailable Unavailable CECY-ILEANA, THONG DO [...] Unavailable Unavailable JASWANT MERRILL MD Unavailable Unavailable JASWNAT MERRILL MD Unavailable Unavailable JASWANT MERRILL MD [...] Unavailable Gilbert, Hansel Gonzalez MD Unavailable Unavailable GilbertHansel MD Unavailable Unavailable Gilbert, Hansel Gonzalez MD [...] is protected by Article 27-F of the [facility] Public Health law. If you continue you may have access to information: Regarding HIV / AIDS; Provided by facilities licensed or operated by the [facility] Office of Mental Health; or Provided by the [facility] Office for People With Developmental Disabilities. If such information is present, then the following [facility] mandated warning applies: This information has been [...] law may result in a fine or snf sentence or both. A general authorization for the release of medical or other information is NOT sufficient authorization for further disc losure. Allergies and Adverse Reactions Type Description Substance Reaction Status Data Source(s ) Drug allergy ALENDRONATE SODIUM ALENDRONATE SODIUM [facility] Family History Family Member Name Family Member Gender Family Member Status Date o f Status Description Data Source(s) Unknown Male Problem [facility] ([facility]) Unknown Unknown Problem [facility] ([facility] Unknown Male Problem [facility] Unknown Male Problem [facility] ([facility] Unknown Male Problem [facility] ([facility]) Unknown Male Problem [facility] ([facility]) Unknown Male Problem [facility] ([facility]) Encounters Encounter Providers Location Date Indications Data Source(s ) Outpatient Attender: CELY MERRILL MD 02/16/2021 12:00:00 A M [facility] Outpatient Attender: ARNOLDO GIPSON PAConsultant: JORGITO SARMIENTO, 10/16/2020 10:22:30 AM EST - 10/17/2020 08:13:00 AM [facility] Patient discharged. Outpatient Attender: Arnoldo SIMS [facility] 10/10/2020 07:30:00 AM EST [facility] ([facility]) Outpatient Attender: ARNOLDO LIAOConsultant: JORGITO FARRELL, 10/03/2020 11:12:00 AM EST - 10/03/2020 12:12:00 PM [facility] ital Patient discharged. Outpatient Attender: Arnoldo SIMS [facility] 09/30/2020 12:30:00 PM EST [facility] ([facility]) Outpatient Attender: Arnoldo SIMS [facility] 09/25/2020 03:00:00 PM EST [facility] ([facility]) Outpatient Attender: LOREN IBARRA MDConsultant: JORGITO COLEMAN, 09/22/2020 07:28:00 AM EST - 09/22/2020 08:28:00 AM [facility] Office Visit Attender: LOREN IBARRA MD Physical Therapy 01:30:00 PM EST MED[facility] ([facility]) Outpatient Attender: Arnoldo SIMS [facility] 09/09/2020 02:30:00 PM EST MED[facility] ([facility]) Office Visit Attender: LOREN IBARRA MD Physical Therapy 01:00:00 PM EST [facility] ([facility]) Outpatient Attender: DERECK MORALES MD Main Office 09/08/2020 08:30:00 AM EST [facility] ([facility]) Outpatient Attender: Arnoldo SIMS [facility] 08/07/2020 12:00:00 PM EST MED[facility] ([facility]) Office Visit Attender: LOREN IBARRA MD Physical Therapy 09:00:00 AM EST [facility] ([facility]) Outpatient Attender: Arnoldo SIMS [facility] 07/23/2020 09:00:00 AM EST [facility] ([facility]) Office Visit Attender: DERECK MORALES MD Main Office 07/18/2020 03: 12:00 PM EST [facility] ([facility]) Outpatient Attender: KIRA PORTEReferrer: Milind SIMS 07/17/2020 12:00:00 AM [facility] Office Visit Attender: LOREN IBARRA MD Physical Therapy 08:00:00 AM EST [facility] ([facility]) Outpatient Attender: Carlos Noriega/Fabio/Harris/R eindl 07/08/2020 01:30:00 PM EST [facility] ([facility] Office Visit Attender: ALIZA Noriega/Fabio/Harris/Re indl 07/07/2020 08:00:00 AM EST [facility] ([facility]) Outpatient Attender: LOREN IBARRA MD Physical Therapy 02:54:00 PM EST [facility] ([facility]) Outpatient Attender: Arnoldo SIMS [facility] 07/03/2020 02:00:00 PM EST [facility] ([facility]) Outpatient Attender: Arnoldo SIMS [facility] 06/19/2020 01:30:00 PM EDT MED[facility] ([facility]) Office Visit Attender: ALIZA Noriega/Fabio/Harris/Re indl 06/11/2020 11:45:00 AM EDT [facility] ([facility]) Office Visit Attender: DERECK MORALES MD Main Office 06/06/2020 11: 03:00 AM EDT MED[facility] ([facility]) Outpatient Attender: DERECK MORALES MD Main Office 06/05/2020 09:30:00 AM EDT MED[facility] ([facility]) Outpatient Attender: Arnoldo SIMS [facility] 05/29/2020 02:40:00 PM EDT MED[facility] ([facility]) Outpatient Attender: Carlos Noriega/[place]/Harris/R eindl 04/02/2020 01:23:00 AM EDT [facility] ([facility]) Outpatient Attender: Carlos Noriega/Fabio/Harris/R eindl 04/01/2020 01:23:00 AM EDT [facility] ([facility] [...] CELY MERRILL MD 03/11/2020 12:00:00 A M [facility] Outpatient Attender: CELY MERRILL MDReferrer: THONG MOSLEY DO [id number] 02/18/2020 12:00:00 AM EDT - 02/18/2020 10:38:33 AM ED T Rheumatoid arthritis without rheumatoid factor, unspecified site [facility] Rheumatoid arthritis without rheumatoid factor, unspecified site [facility] [address] [place] [id number] 01/10/2020 12:00:00 AM EDT eCW1 ([facility]) Outpatient Attender: Arnoldo SIMS [facility] 12/28/2019 01:00:00 PM EDT MED[facility] ([facility]) Outpatient Attender: Arnoldo SIMS [facility] 12/18/2019 02:30:00 PM EDT [facility] ([facility]) Outpatient Attender: Arnoldo SIMS [facility] 12/04/2019 03:40:00 PM EDT MED[facility] ([facility]) Outpatient Referrer: Arnoldo SIMS 11/29/2019 03:11:0 0 PM EDT [facility] Outpatient Referrer: Arnoldo SIMS 11/29/2019 03:11:0 0 PM EDT [facility] Outpatient Referrer: Arnoldo SIMS 11/29/2019 03:11:0 0 PM EDT [facility] Outpatient Referrer: Arnoldo SIMS 11/29/2019 03:04:0 0 PM EDT [facility] Outpatient Attender: Arnoldo SIMS [facility] 11/29/2019 01:20:00 PM EDT [facility] ([facility]) Outpatient Referrer: Arnoldo SIMS 11/27/2019 04:14:0 0 PM EDT [facility] Outpatient Attender: Arnoldo SIMS [facility] 11/07/2019 02:30:00 PM EDT MED[facility] ([facility]) Outpatient Attender: CELY MERRILL MD [id number] 2019 12:00:00 AM EDT - 11/05/2019 12:38:34 PM EDT Other correction (current) drug therapy [facility] Other correction (current) drug therapy Outpatient Referrer: Arnoldo SIMS 11/01/2019 12:11:0 0 PM [facility] Outpatient Attender: CELY MERRILL MD 10/29/2019 12:00:00 A M [facility] Outpatient Attender: CELY MERRILL MD 10/23/2019 12:00:00 A M [facility] Outpatient Attender: Milind SIMS [facility] 10/18/2019 01:40:00 PM EST [facility] ([facility]) Outpatient Attender: DERECK MORALES MD Main Office 09/18/2019 10:30:00 AM EST [facility] ([facility]) Immunizations Vaccine Date Status Description Data [...] 12:00:00 AM EST ORAL active M EDENT ([facility]) Cyclobenzaprine hydrochloride 10 MG Oral Tablet [...] DAILY DOSE = 6 TABLETS SOLD: 10/05/2020 [facility] 200 unit/actuation 10/04/2020 12:00:00 AM EST spray,non-aero chana 3 SPRAY ONE SPRAY IN ONE NOSTRIL EVERY DAY (ALTERNATING NOSTRILS) SPRAY ONE SPRAY IN ONE NOSTRIL EVERY DAY (ALTERNATING NOSTRILS) SOLD: 10/05/2020 [facility] salmon calcitonin 200 UNT/ACTUAT Nasal [place] Calcitonin (Trace mon) 10/03/2020 12:00:00 AM EST active M EDENT ([facility]) Acetaminophen 325 MG / Hydrocodone Bitartrate 5 MG Ora l Tablet Hydrocodone-Acetaminophen 10/03/2020 12:00:00 AM EST ORAL active [facility] ([facility]) 2 mg 09/26/2020 12:00:00 AM EST tablet 30 TAKE ONE TABLET BY MOUTH EVERY 8 HOURS NEEDED FOR INVOLUNTARY MUSCLE ACTIVITY, MAXIMUM DAILY DOSE = THREE TABLETS TAKE ONE TABLET BY MOUTH EVERY 8 HOURS A S NEEDED FOR INVOLUNTARY MUSCLE ACTIVITY, MAXIMUM DAILY DOSE = THREE TABLETS SOLD: 09/28/2020 [facility] 10-325 mg 09/26/2020 12:00:00 AM EST tablet 240 TAKE 1 & 1/2 TO 2 TABLETS BY MOUTH FOUR TIMES A DAY NEEDED FOR PAIN, MAXIMUM DAILY DOSE = EIGHT TABLETS TAKE 1 & 1/2 TO 2 TABLETS BY MOUTH FOUR TIMES A DAY NEEDED FOR PAIN, MAXIMUM DAILY DOSE = EIGHT TABLETS SOLD: 09/28/2020 [facility] Diazepam 2 MG Oral Tablet [Valium] Valium 09/25/2020 12:00:00 AM EST completed [facility] ([facility]) 5 mg 09/22/2020 12:00:00 AM EST tablet [...] Valium 09/22/2020 12:00:00 AM EST completed [facility] ([facility]) 5 mg 09/19/2020 12:00:00 AM EST tablet [...] AM EST ORAL active [facility] ([facility]) celecoxib 100 MG Oral Capsule Celecoxib 09/07/2020 12:00:00 AM EST ORAL active [facility] ([facility]) Amiodarone hydrochloride 200 MG Oral Tablet Amiodarone HCL 09/07/2020 12:00:00 AM EST ORAL active [facility] ([facility] Furosemide 20 MG Oral Tablet [Lasix] Lasix 09/07/2020 12:00:00 AM EST ORAL active [facility] ([facility] 1 billion cell- 250 mg 09/01/2020 [...] = EIGHT TABLETS SOLD: 08/28/2020 [facility] Home Sleep Study 08/27/2020 12:00:00 AM EST completed [facility] ([facility]) Cholestyramine Resin 66.7 MG/ML Oral Suspension Cholestyrami ne 08/27/2020 12:00:00 AM EST active M EDENT ([facility]) Prednisone 5 MG Oral Tablet Prednisone 08/25/2020 12:00:00 AM EST ORAL active [facility] ([facility]) Prednisone 20 MG Oral Tablet Prednisone 08/18/2020 12:00:00 AM EST ORAL completed [facility] ([facility]) Nocturnal Oximetry Spo2 Monitor 08/07/2020 12:00:00 AM EST completed [facility] ([facility]) 10-325 mg 08/01/2020 12:00:00 AM EST tablet 240 TAKE 1 & 1/2 TO 2 TABLETS BY MOUTH FOUR TIMES A DAY NEEDED FOR PAIN, MAXIMUM DAILY DOSE = EIGHT TABLETS TAKE 1 & 1/2 TO 2 TABLETS BY MOUTH FOUR TIMES A DAY NEEDED FOR PAIN, MAXIMUM DAILY DOSE = EIGHT TABLETS SOLD: 08/06/2020 [facility] carvedilol 3.125 MG Oral Tablet Carvedilol 07/22/2020 12:00:00 AM EST ORAL completed [facility] ([facility]) 5 mg 07/22/2020 12:00:00 AM EST tablet 30 TAKE ONE TABLET BY MOUTH EVERY DAY TAKE ONE TABLET BY MOUTH EVERY DAY SOLD: 07/23/2020 [facility] Amlodipine 5 MG Oral Tablet Amlodipine Besylate 07/22/2020 12:00:00 A M EST ORAL active [facility] ([facility] carvedilol 3.125 MG Oral Tablet Carvedilol 07/18/2020 12:00:00 AM EST ORAL completed [facility] ([facility]) 20 mg 07/08/2020 12:00:00 AM EST tablet 90 TAKE ONE TABLET BY MOUTH EVERY DAY NEEDED FOR EDEMA TAKE ONE TABLET BY MOUTH EVERY DAY NEEDED FOR EDEMA SOLD: 07/08/2020 [facility] Furosemide 20 MG Oral Tablet [Lasix] Lasix 07/08/2020 12:00:00 AM EST ORAL completed [facility] ([facility]) 10-325 mg 07/07/2020 12:00:00 AM EST tablet 240 TAKE 1 & 1/2 TO 2 TABLETS BY MOUTH FOUR TIMES A DAY NEEDED FOR PAIN, MAXIMUM DAILY DOSE = EIGHT TABLETS TAKE 1 & 1/2 TO 2 TABLETS BY MOUTH FOUR TIMES A DAY NEEDED FOR PAIN, MAXIMUM DAILY DOSE = EIGHT TABLETS SOLD: 07/08/2020 [facility] Esomeprazole 40 MG Delayed Release Oral Capsule Esomeprazole Magnesium 07/03/2020 12:00:00 AM EST ORAL active [facility] ([facility]) 120 ACTUAT Fluticasone propionate 0.044 MG/ACTUAT Metered Dose Inhaler [Flovent] Flovent HFA 07/03/2020 12:00:00 AM EST RESPIRATORY completed [facility] ([facility]) 5 mg 06/19/2020 12:00:00 AM EDT [...] 06/17/2020 12:00:00 AM E DT completed [facility] ([facility]) 50 mcg/actuation 06/17/2020 12:00:00 AM EDT [...] 12:00 :00 AM EDT ORAL completed [facility] ([facility]) Aspirin 81 MG Delayed Release Oral Tablet Aspirin Ec 2019 12:00:00 AM EDT ORAL active [facility] ( [facility]) apixaban 5 MG Oral Tablet [Eliquis] Eliquis 06/04/2020 12:00:00 AM E DT ORAL active [facility] ([facility]) Lactobacillus acidophilus [id number] UNT Oral Capsule Probiot ic 06/04/2020 12:00:00 AM EDT ORAL completed [facility] ([facility]) Docusate Sodium 100 MG Oral Capsule Docusate Sodium 06/04/2020 1 2:00:00 AM EDT ORAL active [facility] ( [facility]) Ciprofloxacin 500 MG Oral Tablet Ciprofloxacin HCL 06/04/2020 12:00 :00 AM EDT ORAL completed [facility] ([facility]) Bupropion Hydrochloride ER (SR) Bupropion Hydrochloride ER ( SR) 06/04/2020 12:00:00 AM EDT active M [facility]ENT ([facility]) olanzapine 2.5 MG Oral Tablet Olanzapine 06/04/2020 12:00:00 AM EDT ORAL completed [facility] ([facility]) Amiodarone hydrochloride 200 MG Oral Tablet Amiodarone HCL 06/04/2020 12:00:00 AM EDT ORAL completed [facility] ([facility]) Ciprofloxacin 500 MG Oral Tablet [Cipro] Cipro 06/04/2020 12:00:00 AM EDT completed [facility] ([facility]) 24 HR tolterodine tartrate 4 MG Extended Release Oral Capsule Tolterodine Tartrate ER 06/04/2020 12:00:00 AM EDT ORAL active [facility] ([facility]) montelukast 10 MG Oral Tablet Montelukast Sodium 06/04/2020 12:00:00 AM EDT ORAL completed [facility] ([facility] duloxetine 30 MG Delayed Release Oral Capsule Duloxetine HCL 06/04/2020 12:00:00 AM EDT ORAL active [facility] ([facility]) NITROFURANTOIN, MACROCRYSTALS 25 MG / Ni trofurantoin, Monohydrate 75 MG Oral Capsule [Macrobid] Macrobid 06/03/2020 12:00:00 AM EDT ORAL completed [facility] ([facility]) Amiodarone hydrochloride 200 MG Oral Tablet [...] DAILY DOSE = SIX TABLETS SOLD: 05/26/2020 [facility] 4 gram 05/26/2020 12:00:00 AM EDT powder in packet 60 TAKE 2 GRAMS BY MOUTH DIRECTED 2 TIMES A DAY AT 11AM AND 5PM TAKE 2 GRAMS BY MOUTH DIRECTED 2 TIMES A DAY AT 11AM AND 5PM SOLD: 05/26/2020 [facility] pantoprazole 40 MG Delayed Release Oral Tablet PANTOPRAZOLE SODIUM 05/26/2020 12:00:00 AM EDT tablet,delayed release (DR/EC) 30 T RM ONE TABLET BY MOUTH EVERY DAY TAKE ONE TABLET BY MOUTH EVERY DAY SOLD: 05/26/2020 [facility] Shingrix Shingrix 04/10/2020 12:00:00 AM EDT compl eted MEDENT ([facility]) 0.5 ML Streptococcus pneumoniae serotype 1 capsular antigen diphtheria [id number] protein conjugate vaccine 0.0044 MG/ML / Streptococcus pneumoniae serotype 14 capsular antigen diphtheria [id number] protein conjugate vaccine 0.0044 MG/ML / Streptococcus pneumonia Prevnar 13 04/10/2020 12:00:00 AM EDT completed [facility] ([facility]) 5 mg 03/26/2020 12:00:00 AM EDT tablet [...] Benzonatate 01/03/2020 12:00:00 AM EDT completed [facility] ([facility]) 4 mg 12/28/2019 12:00:00 AM EDT tablet 45 TAKE 1-2 TABLETS BY MOUTH EVERY 6 HOURS NEEDED FOR NAUSEA TAKE 1-2 TABLETS BY MOUTH EVERY 6 HOURS NEEDED FOR NAUSEA SOLD: 12/28/2019 [facility] Ondansetron 4 MG Oral Tablet [Zofran] Zofran 12/28/2019 12:00:00 AM EDT ORAL completed [facility] ([facility]) 10-325 mg 12/28/2019 12:00:00 AM EDT [...] 12/18/2019 12:00:00 AM EDT ORAL active [facility] ([facility]) Injection Methylprednisolone Acetate 80 MG 12/04/2019 12:00:00 A M EDT completed [facility] ([facility]) Medication administered onsite Prednisone 10 MG Oral Tablet Prednisone 12/04/2019 12:00:00 AM EDT completed [facility] ([facility]) montelukast 10 MG Oral Tablet [Singulair] Singulair 2019 12:00:00 AM EDT ORAL active [facility] ( [facility]) montelukast 10 MG Oral Tablet MONTELUKAST [...] 11/29/2019 12:00:00 AM EDT RESPIRATORY active [facility] ([facility]) benzonatate 200 MG Oral Capsule Benzonatate 11/29/2019 12:00:00 AM EDT completed [facility] ([facility]) Levofloxacin 750 MG Oral Tablet [Levaquin] Levaquin 11/28 12:00:00 AM EDT ORAL completed [facility] ([facility]) 750 mg 11/29/2019 12:00:00 AM EDT [...] Adult 11/29/2019 12:00:00 AM EDT active [facility] ([facility]) INHALER, ASSIST DEVICES 11/29/2019 12:00:00 AM EDT [...] 12:00:00 AM EDT ORAL active [facility] ( [facility]) 5 mg 11/15/2019 12:00:00 AM EDT [...] viscous 2 %, Benadryl 12.5 mg/[address] [facility] [id number] 10/22/2019 12:00:00 AM EST Suspension 120 SWISH [...] EST ORAL active [facility] ([facility] gabapentin 300 MG Oral Capsule Gabapentin 09/17/2019 12:00:00 AM EST ORAL active [facility] ([facility]) Amlodipine 5 MG Oral Tablet Amlodipine Besylate 09/17/2019 12:00:00 A M EST ORAL active [facility] ([facility] 10-325 mg 08/18/2019 12:00:00 AM EST tablet 120 TAKE ONE TABLET BY MOUTH FOUR TIMES A DAY NEEDED, MAXIMUM DAILY DOSE = FOUR TABLETS TAKE ONE TABLET BY MOUTH FOUR TIMES A DAY NEEDED, MAXIMUM DAILY DOSE = FOUR TABLETS SOLD: 08/24/2019 [facility] Alendronic acid 70 MG Oral Tablet [Fosamax] Fosamax 11/2018 12:00:00 AM EST ORAL completed [facility] ([facility]) 24 HR Bupropion Hydrochloride 150 MG Extended Release Oral Tablet [Wellbutrin] Wellbutrin XL 07/23/2019 12:00:00 AM EST ORAL completed [facility] ([facility]) Zolpidem tartrate 10 MG Oral Tablet Zolpidem Tartrate 06/30 12:00:00 AM EST completed [facility] ([facility]) Folic Acid 1 MG Oral Tablet folic acid (FOLVITE) 1 MG tablet folic acid (FOLVITE) 1 MG tablet 06/19/2019 12:00:00 AM EDT 2 mg Oral aborted Take 2 tablets by mouth daily [facility] Diphenhydramine Hydrochloride 25 MG Oral Tablet Sleep-Tabs 05/13/2019 12:00:00 AM EDT ORAL completed [facility] ([facility]) gabapentin 100 MG Oral Capsule Gabapentin 05/13/2019 12:00:00 AM EDT ORAL completed [facility] ([facility]) Folic Acid 1 MG Oral Tablet folic acid (FOLVITE) 1 MG tablet folic acid (FOLVITE) 1 MG tablet 03/27/2019 12:00:00 AM EDT 2 mg Oral aborted Take [address] tablets by mouth daily [facility] Insurance Providers Payer name Policy type / Coverage type Policy ID Covered constitution party ID Covered constitution party's relationship to wiggins Policy [place] Plan Information FOR LIFE [id number] MEDICARE [id number] FOR LIFE -O/P [id number] MEDICARE PART A -O/P [id number] FOR LIFE U [id number] Self [id number] MEDICARE A [id number] Self [id number] FOR LIFE O [id number] S [id number] MEDICARE C [id number] S [id number] U [id number] Spouse [id number] FOR LIFE [id number] [employer] [id number] S [id number] MEDICARE [id number] ANSI-Not a Secondary Insurance [id number] ANSI-Medicare Part B [id number] ANSI-Commercial [id number] ANSI-Commercial [id number] ANSI-Medicare Part B [id number] ANSI-Not a Secondary Insurance [id number] For Life [facility] Part B [id number] Family Dependent [id number] [place] Primary [id number] Self [id number] ANSI-Commercial [id number] ANSI-Not a Secondary Insurance [id number] ANSI-Medicare Part B [id number] ANSI-Commercial [id number] ANSI-Not a Secondary Insurance [id number] ANSI-Medicare Part B [id number] For Life [facility] Part B [id number] Family Dependent [id number] Medicare [place] Medicare Primary [id number] Self [id number] ANSI-Not a Secondary Insurance [id number] ANSI-Medicare Part B [id number] ANSI-Commercial [id number] ANSI-Not a Secondary Insurance [id number] ANSI-Medicare Part B [id number] ANSI-Commercial [id number] ANSI-Commercial [id number] ANSI-Medicare Part B [id number] ANSI-Not a Secondary Insurance [id number] ANSI-Commercial [id number] ANSI-Not a Secondary Insurance [id number] ANSI-Medicare Part B [id number] ANSI-Not a Secondary Insurance [id number] ANSI-Commercial [id number] ANSI-Medicare Part B [id number] For Life - [employer] Medigap Part B [id number] Family Dependent [id number] Medicare (Part B) Medicare Primary [id number] Self [id number] Prime - [employer] Health Maintenance Organization (HMO) [id number] For Life - WPS Medigap Part B [id number] Family Dependent [id number] Medicare (Part B) Medicare Primary [id number] Self [id number] [facility] Health Maintenance Organization (HMO) [id number] ANSI-Commercial [id number] ANSI-Not a Secondary Insurance [id number] ANSI-Medicare Part B [id number] ANSI-Commercial [id number] ANSI-Not a Secondary Insurance [id number] ANSI-Medicare Part B [id number] ANSI-Commercial [id number] ANSI-Not a Secondary Insurance [id number] ANSI-Medicare Part B [id number] For Life F [id number] SELF 0 [id number] Medicare C [id number] SELF [id number] FOR LIFE O UNAVAILABLE P U NAVAILABLE MEDICARE C UNAVAILABLE S UNAVAILA BLE ANSI-Medicare Part B [id number] ANSI-Not a Secondary Insurance [id number] [facility] [id number] [facility] [id number] ANSI-Not a Secondary Insurance [id number] ANSI-Medicare Part B [id number] ANSI-Medicare Part B [id number] ANSI-Not a Secondary Insurance [id number] ANSI-Medicare Part B [id number] ANSI-Not a Secondary Insurance [id number] ANSI-Not a Secondary Insurance [id number] ANSI-Medicare Part B [id number] U [id number] Self [id number] [address] (2018) Commercial [id number] Self [id number] Prime Commercial [id number] [place] [id number] HU2 [id number] [facility] HUMANA [id number] 2 [id number] HU[employer] [place] O [id number] P [id number] [employer] [place] O [id number] P [id number] [employer] [place] [id number] HU2 [id number] U [id number] Spouse [id number] [employer]/ AD O [id number] P [id number] [facility] [employer] Commercial [id number] Family Depend ent [id number] FOR LIFE -CLINIC [id number] 01 [id number] [employer] [place] [id number] HU2 [id number] Prime - [facility] Health Maintenance Organization ([facility]) [id number] Spo [id number] [employer] [place] [id number] HU2 [id number] [employer]/ AD O [id number] P [id number] [facility] [employer] Analysis Service Commercial Family Depend ent [employer] [place] P [id number] S [id number] [facility] O [id number] U [id number] [facility] O [id number] U [id number] Problems, Conditions, and Diagnoses Code Display Name Description Problem Type Effective Dates Data Source(s) 95730698 Sinus node dysfunction Sinus node dysfunction Problem 09/08/2020 12:00:00 AM EST [facility] ([facility]) 86715382 Mild recurrent major depression Mild recurrent m ajor depression Problem 07/03/2020 12:00:00 AM EST [facility] ([facility]) 920565462 Paroxysmal atrial fibrillation Paroxysmal atrial fibri llation Problem 06/05/2020 12:00:00 AM EDT [facility] ([facility]) 159738111 Paroxysmal atrial fibrillation Paroxysmal atrial fibri llation Problem 05/29/2020 12:00:00 AM EDT [facility] ([facility]) 14772546 Essential hypertension Essential hypertension Problem 05/28/2020 12:00:00 AM EDT [facility] ([facility] ) 341021003 Edema Edema Problem 09/18/2019 12:00:00 AM ES T [facility] ([facility]) M4802 Spinal stenosis, cervical region Spinal stenosis , cervical region Diagnosis 10/03/2020 11:12:00 AM [facility] M160 Bilateral primary osteoarthritis of hip Bilateral primary osteoarthritis of hip Diagnosis 10/03/2020 11:12:00 AM [facility] [id number] Collapsed vertebra, not else where classified, thoracic region, initial encounter for fracture Collapsed vertebra, not elsewhere classi fied, thoracic region, initial encounter for fracture Diagnosis 10/03/2020 11:12:00 A [facility] I517 Cardiomegaly Cardiomegaly Diagnosis 10/03/2020 11:12:00 [facility] M545 Low back pain Low back pain Diagnosis 10/03/2020 11:12:00 AM [facility] [id number] Contusion of thorax, unspecified, initia l encounter Contusion of thorax, unspecified, initial encounter Diagnosis 10/03/2020 11:12:00 AM [facility] R269 Unspecified abnormalities of gait and mo bility Unspecified abnormalities of gait and mobility Diagnosis 10/03/2020 11:12:00 AM [facility] R937 Abnormal findings on diagnos tic imaging of other parts of musculoskeletal system Abnormal findings on diagnostic imaging of other parts of musculoskeletal system Diagnosis 09/22/2020 07:28:00 AM [facility] J65229 Effusion, right shoulder Effusion, right shoulder Diag nosis 09/22/2020 07:28:00 AM [facility] P72569X Displaced fracture of greate r tuberosity of right humerus, subsequent encounter for fracture with routine healing Displaced fracture of greater tuberosity of right humerus, subsequent encounter for fracture with routine healing Diagnosis 09/22/2020 07:28:00 AM [facility] G89.29 Other chronic pain Other chronic pain Diagnosis 10:17:06 AM [facility] M54.5 Low back pain Low back pain Diagnosis 02/18/2020 10:17:06 AM [facility] 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 O ther correction (current) drug therapy Diagnosis 11/05/2019 11:32:36 AM [facility] Surgeries/Procedures Procedure Description Date Indications Data Source(s) RADEX SHOULDER COMPLETE MINIMUM 2 VIEWS 10/09/2020 12: 00:00 AM EST [facility] ([facility] ) RADEX SHOULDER COMPLETE MINIMUM 2 VIEWS 09/18/2020 12: 00:00 AM EST [facility] ([facility] ) RADEX SHOULDER COMPLETE MINIMUM 2 VIEWS 09/09/2020 12: 00:00 AM EST [facility] ([facility]) Arterial Pressure Waveform Analysis For Assessment Of Centra l Art 09/08/2020 12:00:00 AM EST [facility] ([facility]) RADEX SHOULDER COMPLETE MINIMUM 2 VIEWS 07/31/2020 12: 00:00 AM EST [facility] ([facility]) RADEX SHOULDER COMPLETE MINIMUM 2 VIEWS 07/11/2020 12: 00:00 AM EST [facility] ([facility]) FX Greater Tuberosity W/O Manipulation 07/06/2020 12:0 0:00 AM EST [facility] ([facility]) ECG ROUTINE ECG W/LEAST 12 LDS W/I&R 06/05/2020 12:00: 00 AM EDT [facility] ([facility]) Arterial Pressure Waveform Analysis For Assessment Of Centra l Art 06/05/2020 12:00:00 AM EDT [facility] ([facility]) REVJ ILEOSTOMY COMPLIC RCNSTJ IN-DEPTH SPX 05/09/2020 12:00:00 AM EDT [facility] ([facility]) Arterial Pressure Waveform Analysis For Assessment Of Centra l Art 09/18/2019 12:00:00 AM EST [facility] ([facility]) Results ID Date Data Source [id number] 10/12/2020 12:00:00 PM ADRI SALDANA Name Value Range Interpretation Code Description Data Aby rce(s) Supporting Document(s) SARS coronavirus 2 RNA Not Detected [facility] [place] This lab was ordered by [facility] and reported by [facility]. ID Date Data Source [id number] 10/06/2020 10:18:00 AM EST [facility] [address] [place] [address] PHONE: [phone] FAX: [phone] Name .................. : MICHAEL PANCHALTatiana Loya Acct Number.................. : [id number] ROOM. ................. : Number ................... : [id number] Stay type ............. : O/P Discharge Date......... ... : 10/03/20 Admit Date ......... : 10/03/20 Admit Phys .................... : [facility] Date of ....... : 1955 Family Phys ................... : JAMI JORGITO Phone .................. : [phone] Age ................................ : 65 Film# .................. .:[id number] Sex ................................. : F Unsigned transcriptions are preliminary reports and do not represent a medical or legal document MRA HEAD W/O CONTRAST 90005 COMPLETE:10/03/20 14:53 [facility] 3687 (REASON FOR PROCEDURE INCREASED CEREBELLAR DYSFUNCTION [...] for: KESHAWN MCLAUGHLIN via fax Copy for: [address] [place] [address] Page 1 of 1 Name Value Range Interpretation Code Description Data Aby rce(s) Supporting Document(s) ID Date Data Source [id number] 10/06/2020 10:16:00 AM EST [facility] [address] [place] [address] PHONE: [phone] FAX: [phone] Name .................. : [facility] : [id number] ROOM. ................. : Number ................... : [id number] Stay type ............. : O/P Discharge Date......... ... : 10/03/20 Admit Date ......... : 10/03/20 Admit Phys .................... : KESHAWN [facility] Date of ....... : 1955 Family Phys ................... : JAMI BULL Phone .................. : [phone] Age ................................ : 65 Film# .................. .:[id number] Sex ................................. : F Unsigned transcriptions are preliminary reports and do not represent a medical or legal document MRI BRAIN W/O CONTRAST 33471 COMPLETE:10/03/20 11:18 3688 (REASON FOR PROCEDURE INCREASED [...] Arnoldo De Leon MD , 10/06/20 10:16, [facility] Transcribe Initials: SSR, Transcribe Date: 10/03/20 13:46, Dictation Date: Copy for: KESHAWN MCLAUGHLIN via fax Copy for: [address] [place] [address] Page 1 of 1 Name Value Range Interpretation Code Description Data Aby rce(s) Supporting Document(s) ID Date Data Source [id number] 10/06/2020 10:16:00 AM EST [facility] [address] [place] [address] PHONE: [phone] FAX: [phone] Name .................. : MICHAEL Loya Acct Number.................. : [id number] ROOM. ................. : MR Number ................... : [id number] Stay type ............. : O/P Discharge Date......... ... : 10/03/20 Admit Date ......... : 10/03/20 Admit Phys .................... : [facility] Date of ....... : 1955 Family Phys ................... : [employer] Phone .................. : [phone] Age ................................ : 65 Film# .................. .:[id number] Sex ................................. : F Unsigned transcriptions are preliminary reports and do not represent a medical or legal document MRI CERVICAL SPINE W/O CONTRA 77756 COMPLETE:10/03/20 11:18 3689 (SPINE PROC REASON: INCREASED [...] Arnoldo De Leon MD , 10/06/20 10:16, [facility] Transcribe Initials: SSR, Transcribe Date: 10/03/20 13:33, Dictation Date: Page 1 of 2 [facility] [address] [place] [address] PHONE: [phone] FAX: [phone] Name .................. : MICHAEL DUY Loya Acct Number.................. : [id number] ROOM. ................. : Number ................... : [id number] Stay type ............. : O/P Discharge Date......... ... : 10/03/20 Admit Date ......... : 10/03/20 Admit Phys .................... : [facility] Date of ....... : 1955 Family Phys ................... : JAMI JORGITO Phone .................. : [phone] Age ................................ : 65 Film# .................. .:[id number] Sex ................................. : F Unsigned transcriptions are preliminary reports and do not represent a medical or legal document MRI CERVICAL SPINE W/O CONTRA 01365 COMPLETE:10/03/20 11:18 3689 (SPINE PROC REASON: INCREASED CEREBELLAR DYSFUNCTION Copy for: KESHAWN MCLAUGHLIN via fax Copy for: [address] [place] [address] REC Page 2 of 2 Name Value Range Interpretation Code Description Data Aby rce(s) Supporting Document(s) ID Date Data Source [id number] 10/06/2020 10:09:00 AM EST [facility] [address] [place] [address] PHONE: [phone] FAX: [phone] Name .................. : MICHAEL GORDILLO Vincenzo Acct Number.................. : [id number] ROOM. ................. : Number ................... : [id number] Stay type ............. : O/P Discharge Date......... ... : 10/03/20 Admit Date ......... : 10/03/20 Admit Phys .................... : [facility] Date of ....... : 1955 Family Phys ................... : JAMI BULL Phone .................. : [phone] Age ................................ : 65 Film# .................. .:[id number] Sex ................................. : F Unsigned transcriptions are preliminary reports and do not represent a medical or legal document PELVIS COMPLETE - 3 VIEWS 87214 COMPLETE:10/03/20 12:44 [facility] 3686 (REASON FOR PELVIS: [...] Arnoldo De Leon MD , 10/06/20 10:09, [facility] Transcribe Initials: GIRISH , Transcribe Date: 10/03/20 23:55, Dictation Date: Copy for: KESHAWN MCLAUGHLIN via fax Copy for: [address] [place] [address] Page 1 of 1 Name Value Range Interpretation Code Description Data Aby rce(s) Supporting Document(s) ID Date Data Source [id number] 10/06/2020 10:08:00 [place] [address] PHONE: [phone] FAX: [phone] Name .................. : MICHAELJOSÉ LUIS Loya Acct Number.................. : [id number] ROOM. ................. : Number ................... : [id number] Stay type ............. : O/P Discharge Date......... ... : 10/03/20 Admit Date ......... : 10/03/20 Admit Phys .................... : KESHAWN [facility] Date of ....... : 1955 Family Phys ................... : JAMI BULL Phone . ................. : [phone] Age ................................ : 65 Film# .................. .:[id number] Sex ................................. : F Unsigned transcriptions are preliminary reports and do not represent a medical or legal document SPINE LS COMPLETE 96555 COMPLETE:10/03/20 12:44 [facility] 3685 (SPINE PROC REASON: [...] for: KESHAWN MCLAUGHLIN via fax Copy for: [address] [place] [address] Page 1 of 1 Name Value Range Interpretation Code Description Data Aby rce(s) Supporting Document(s) ID Date Data Source [id number] 10/06/2020 10:08:00 AM EST [facility] [address] [place] [address] PHONE: [phone] FAX: [phone] Name .................. : MICHAELJOSÉ LUIS Loya Acct Number.................. : [id number] ROOM. ................. : MR Number ................... : [id number] Stay type ............. : O/P Discharge Date......... ... : 10/03/20 Admit Date ......... : 10/03/20 Admit Phys .................... : VTJENNIFFER [facility] Date of ....... : 1955 Family Phys ................... : JAMI BULL Phone .................. : [phone] Age ................................ : 65 Film# .................. .:[id number] Sex ................................. : F Unsigned transcriptions are preliminary reports and do not represent a medical or legal document RIBS UNILAT W/PA CXR [place] [id number] COMPLETE:10/03/20 12:44 [facility] 3684 (REASON FOR CHEST: [...] for: KESHAWN MCLAUGHLIN via fax Copy for: [email or web address] Page 1 of 1 Name Value Range Interpretation Code Description Data Aby rce(s) Supporting Document(s) ID Date Data Source [id number] 09/23/2020 09:16:00 AM EST [facility] [address] [place] [address] PHONE: [phone] FAX: [phone] Name .................. : MICHAEL Loya Acct Number.................. : [id number] ROOM. ................. : Number ................... : [id number] Stay type ............. : O/P Discharge Date......... ... : 09/22/20 Admit Date ......... : 09/22/20 Admit Phys .................... : LIZYWITH A Date of ....... : 1955 Family Phys ................... : JAMI BULL Phone .................. : [phone] Age ................................ : 65 Film# .................. .:[id number] Sex ................................. : F Unsigned transcriptions are preliminary reports and do not represent a medical or legal document MRI UPP EXT ANY JT W/O CON RT [id number] COMPLETE:09/22/20 08:55 [facility] 4834 (REASON FOR PROCESS: PAIN ? ROTATOR CUFF [...] MD , 09/23/20 09:16, [facility] Transcribe Initials: [facility], Transcribe Date: 09/22/20 08:56, Dictation Date: Copy for: KATHRYN PIMENTEL Copy for: [address] [place] [address] REC Page 1 of 1 Name Value Range Interpretation Code Description Data Aby rce(s) Supporting Document(s) ID Date Data Source [id number] 09/19/2020 02:33:00 PM EST [facility] Name Value Range Interpretation Code Description Data Aby rce(s) Supporting Document(s) Creatine kinase [Enzymatic activity/volume] in Serum or Plasma 88 [facility] ([facility]) Magnesium Level 2.1 [facility] ([facility]) ID Date Data Source [id number] 09/19/2020 02:33:00 PM EST [facility] ([facility]) Name Value Range Interpretation Code Description Data Aby rce(s) Supporting Document(s) Calcium [Mass/volume] in Serum or Plasma 9.1 [facility] ([facility]) Sodium 139 [facility] Carbon dioxide, total [Moles/volume] in Serum or Plasma 25 [facility] ([facility]) Potassium [Moles/volume] in Serum or Plasma 3.7 [facility] ([facility]) Chloride [Moles/volume] in Serum or Plasma 107 [facility] ([facility]) Glucose 95 70-100 [facility] Creatinine 0.87 0.6-1.5 [facility] ([facility]) Blood Urea Nitrogen 8 5-21 [facility] ([facility]) Glomerular filtration rate/1.73 sq M.pre dicted [Volume Rate/Area] in Serum or Plasma by Creatinine-based formula (MDRD) 60.0 [facility] ([facility]) ID Date Data Source [id number] 09/19/2020 02:33:00 PM EST [facility] ([facility]) Name Value Range Interpretation Code Description Data Aby rce(s) Supporting Document(s) White Blood Count 7.5 4.3-10.9 [facility] ([facility]) Red Blood Count 4.44 4.70-6.20 [facility] ([facility]) Hemoglobin 12.7 13.0-17.0 [facility] ([facility]) Platelets 236 130-400 [facility] Hematocrit 39.6 39.0-50.0 [facility] ([facility]) ID Date Data Source [id number] 09/19/2020 03:35:00 AM EST [facility] ([facility]) Name Value Range Interpretation Code Description Data Aby rce(s) Supporting Document(s) Creatine kinase [Enzymatic activity/volume] in Serum or Plasma 8 8 U/L 26-192 Normal (applies to non-numeric results) [facility] ([facility]) Magnesium [Mass/volume] in Serum or Plasma 2.1 mg/dL 1.8-2 .4 Normal (applies to non-numeric results) [facility] ([facility]) ID Date Data Source [id number] 09/19/2020 03:35:00 AM EST [facility] ([facility]) Name Value Range Interpretation Code Description Data Aby rce(s) Supporting Document(s) Glucose, Fasting 95 mg/dL 70-100 Normal (applies to non-numeric results) [facility] ([facility]) Blood Urea Nitrogen 8 mg/dL 7-18 Normal (applies to non-nume beny results) [facility] ([facility]) Glomerular Filtration Rate Laboratory test result Normal (applies to non- numeric results) [facility] ([facility]) <content>Units are mL/min/1.73 m2</content>
<content></content>
<content>Chronic Kidney Disease Staging per NKF:</content>
<content></content>
<content>Stage I & II GFR >=60 Normal to Mildly Decreased</content>
<content>Stage III GFR 30- 59 Moderately Decreased</content>
<content>Stage IV GFR 15-29 Severely Decreased</content>
<content>Stage V GFR <15 Very Little GFR Left</content>
<content>ESRD GFR <15 on BUSINESS PLANNING MANAGER</content>
<content></content> Creatinine For GFR 0.87 mg/dL 0.55-1.30 Normal (applies to non -numeric results) [facility] ([facility]) Potassium Serum 3.7 meq/L 3.5-5.1 Normal (applies to non-numeric results) [facility] ([facility]) Sodium Level 139 meq/L 136-145 Normal (applies to non-numeric res ults) [facility] ([facility]) Chloride Level 107 meq/L 98-107 Normal (applies to non-numeric r esults) [facility] ([facility]) Carbon Dioxide Level 25 meq/L 21-32 Normal (applies to non-num eladio results) [facility] ([facility]) Anion Gap 7 meq/L 8-16 Below low normal [facility] ( [facility]) Calcium Level 9.1 mg/dL 8.8-10.2 Normal (applies to non-numeric re sults) [facility] ([facility]) ID Date Data Source [id number] 09/19/2020 03:35:00 AM EST [facility]) Name Value Range Interpretation Code Description Data Aby rce(s) Supporting Document(s) White Blood Count 7.5 10 4.0-10.0 Normal (applies to non-numeri c results) [facility] ([facility]) Hematocrit 39.6 % 36.0-47.0 Normal (applies to non-numeric resul ts) [facility] ([facility]) Red Blood Count 4.44 10 4.00-5.40 Normal (applies to non-numeric results) [facility] ([facility]) Hemoglobin 12.7 g/dL 12.0-15.5 Normal (applies to non-numeric resul ts) [facility] ([facility]) Mean Corpuscular Volume 89.2 fl 80.0-96.0 Normal ( applies to non-numeric results) [facility] ([facility]) Mean Corpuscular Hemoglobin 28.6 pg 27.0-33.0 Norm al (applies to non-numeric results) [facility] ([facility]) Mean Corpuscular HGB Conc 32.1 g/dL 32.0-36.5 Normal (applies to non-numeric results) [facility] ([facility]) Platelet Count, Automated 236 10 150-450 Normal (applies to non-numeric results) [facility] ([facility]) Red Cell Distribution Width 17.4 % 11.5-14.5 Above high normal [facility] ([facility]) Woodruff % 10.1 % 0.0-5.0 Above high normal [facility] ([facility]) Lymph % 24.8 % 24.0-44.0 Normal (applies to non-numeric resul ts) [facility] ([facility]) Neutrophils % 61.2 % 36.0-66.0 Normal (applies to non-numeric re sults) [facility] ([facility]) Immature Granulocyte % 0.4 % 0-3.0 Normal (applies to non-n umeric results) [facility] ([facility]) Baso % 0.7 % 0.0-1.0 Normal (applies to non-numeric resul ts) [facility] ([facility]) Eos % 2.8 % 0.0-3.0 Normal (applies to non-numeric resul ts) [facility] ([facility]) Neutrophils # 4.6 10 1.5-8.5 Normal (applies to non-numeric re sults) [facility] ([facility]) Nucleated Red Blood Cell % 0.0 % 0-0 Normal (applies to n on-numeric results) [facility] ([facility]) Lymph # 1.9 10 1.5-5.0 Normal (applies to non-numeric resul ts) [facility] ([facility]) Baso # 0.1 10 0.0-0.2 Normal (applies to non-numeric resul ts) [facility] ([facility]) Woodruff # 0.8 10 0.0-0.8 Normal (applies to non-numeric resul ts) [facility] ([facility]) Eos # 0.2 10 0.0-0.5 Normal (applies to non-numeric resul ts) [facility] ([facility]) ID Date Data Source [id number] 09/09/2020 02:20:00 PM EST [facility] Name Value Range Interpretation Code Description Data Aby rce(s) Supporting Document(s) SARS coronavirus 2 RNA Not Detected [facility] This lab was ordered by [facility] and reported by [facility]. ID Date Data Source [id number] 08/28/2020 12:00:00 PM EST [facility] Name Value Range Interpretation Code Description Data Aby rce(s) Supporting Document(s) SARS coronavirus 2 RNA [facility] This lab was ordered by [facility] and reported by [facility]. ID Date Data Source [id number] 08/07/2020 12:00:00 AM EST [facility] Loren Ibarra MD Patient Name: DUY RODRIGUEZ [id number] [facility] Date of : 1955e 89 Date of Exam: 08/07/2020CHARISSA Hightower [id number]#: Fax: [phone] EXAM: CT UPPER EXTREMITY WITHOUT CONTRASTCLINICAL INFORMATION: Followup fracture right shoulder.Low dose 64 slice helical scanning through the right shoulder was obtainedusing 2 mm increments and reconstructed in both coronal and sagittalplanes. 3D reconstructions were also obtained. Post processing wasperformed at the physician's workstation.Comparison is 07/05/2020 from [facility].Once again, there is a comminuted fracture of [...] is well aligned with theglenoid. There is [id number] narrowing the acromioclavicular joint.Surrounding soft tissue structures are unremarkable. There are no othersignificant findings.IMPRESSION:Comminuted fracture involving the head and neck of the proximal humerus.There is slightly increased impaction and distraction of fracture fragmentscompared to the prior exam. There appears to be very early healing callusformation.Accredited by the [employer] in [place].JONNY Camacho/Eamon you for referring DUY RODRIGUEZ to our office. Electronically Signed - ROXANN ENGLISH MD 08/07/20 16:46 Name Value Range Interpretation Code Description Data Aby rce(s) Supporting Document(s) ID Date Data Source [id number] 07/04/2020 11:34:00 PM EST [facility] Name Value Range Interpretation Code Description Data Aby rce(s) Supporting Document(s) Platelets [#/volume] in Blood by Estimate Laboratory test result Normal (applies to non-numeric results) [facility]) ID Date Data Source [id number] 07/04/2020 11:34:00 PM EST [facility] ([facility]) Name Value Range Interpretation Code Description Data Aby rce(s) Supporting Document(s) Lymphocytes 43 % 16-44 Normal (applies to non-numeric resu lts) [facility] ([facility]) Bands 1 % Normal (applies to non-numeric resul ts) [facility] ([facility]) Neutrophils 46 % 28-66 Normal (applies to non-numeric resu lts) [facility] ([facility]) Eosinophils 4 % 0-3 Above high normal [facility] ([facility]) Monocytes 4 % 0-5 Normal (applies to non-numeric resul ts) [facility] ([facility]) Metamyelocytes 2 % 0-0 Above high normal [facility] ([facility]) Hypochromasia Laboratory test result Normal (applies t o non-numeric results) [facility] ([facility]) Anisocytosis Laboratory test result Normal (applies to non -numeric results) [facility] ([facility]) ID Date Data Source [id number] 07/04/2020 11:34:00 PM EST [facility] ([facility]) Name Value Range Interpretation Code Description Data Aby rce(s) Supporting Document(s) Lipase [Enzymatic activity/volume] in Serum or Plasma 69 U/L 73-393 Below low normal [facility] ([facility]) ID Date Data Source [id number] 07/04/2020 11:34:00 PM EST [facility] ([facility]) Name Value Range Interpretation Code Description Data Aby rce(s) Supporting Document(s) Glucose, Fasting 85 mg/dL 70-100 Normal (applies to non-numeric results) [facility] ([facility]) Blood Urea Nitrogen 9 mg/dL 7-18 Normal (applies to non-nume beny results) [facility] ([facility]) Glomerular Filtration Rate 44.7 Below low normal [facility] ([facility]) <content>Units are mL/min/1.73 m2</content>
<content></content>
<content>Chronic Kidney Disease Staging per NKF:</content>
<content></content>
<content>Stage I & II GFR >=60 Normal to Mildly Decreased</content>
<content>Stage III GFR 30-59 Moderately Decreased</content>
<content>Stage IV GFR 15-29 Severely Decreased</content>
<content>Stage V GFR <15 Very Little GFR Left</content>
<content>ESRD GFR <15 on BUSINESS PLANNING MANAGER</content>
<content></content> Creatinine For GFR 1.27 mg/dL 0.55-1.30 Normal (applies to non -numeric results) [facility] ([facility]) Potassium Serum 4.3 meq/L 3.5-5.1 Normal (applies to non-numeric results) [facility] ([facility]) Sodium Level 133 meq/L 136-145 Below low normal [facility] Chloride Level 100 meq/L 98-107 Normal (applies to non-numeric r esults) [facility] ([facility]) Carbon Dioxide Level 27 meq/L 21-32 Normal (applies to non-num eladio results) [facility] ([facility]) Calcium Level 8.3 mg/dL 8.8-10.2 Below low normal [facility] ([facility]) Anion Gap 6 meq/L 8-16 Below low normal [facility] ID Date Data Source [id number] 07/04/2020 11:34:00 PM EST [facility] ([facility]) Name Value Range Interpretation Code Description Data Aby rce(s) Supporting Document(s) Ast/Sgot 13 U/L 7-37 Normal (applies to non-numeric resul ts) [facility] ([facility]) Alt/SGPT 15 U/L 12-78 Normal (applies to non-numeric resul ts) [facility] ([facility]) Alkaline Phosphatase 75 U/L 45-117 Normal (applies to non-num eladio results) [facility] ([facility]) Bilirubin,Direct Laboratory test result 0.0-0.2 Normal ( applies to non-numeric results) [facility] ([facility]) Bilirubin,Total 0.2 mg/dL 0.2-1.0 Normal (applies to non-numeric results) [facility] ([facility]) Total Protein 6.4 GM/DL 6.4-8.2 Normal (applies to non-numeric re sults) [facility] ([facility]) Albumin 3.4 GM/DL 3.2-5.2 Normal (applies to non-numeric resul ts) [facility] ([facility]) Albumin/Globulin Ratio 1.1 1.2-2.2 Below low normal [facility] ([facility]) ID Date Data Source [id number] 07/04/2020 11:34:00 PM EST [facility] ([facility]) Name Value Range Interpretation Code Description Data Aby rce(s) Supporting Document(s) Prothrombin Time 13.3 s 12.5-14.3 Normal (applies to non-numeric results) [facility] ([facility]) Inr 0.99 Normal (applies to non-numeric resul ts) [facility] ([facility]) THERAPUTIC HUMAN INR VALUES INDICATIONS NORMAL RANGES PROPHYLAXIS/TREATMENT OF: VENOUS THROMBOSIS 2.0-3.0 PULMONARY EMBOLISM 2.0-3.0 PREVENTION OF SYSTEMIC EMBOLISM FROM: TISSUE HEART VALVES 2.0-3.0 ACUTE MYOCARDIAL INFARCTION 2.0-3.0 VALVULAR HEART DISEASE 2.0-3.0 ATRIAL FIBRILLATION 2.0-3.0 MECHANICAL VALVES(HIGH RISK) 2.5-3.5 RECURRENT MYOCARDIAL INFARCTION 2.5-3.5 ID Date Data Source [id number] 07/04/2020 11:34:00 PM EST [facility] ([facility]) Name Value Range Interpretation Code Description Data Aby rce(s) Supporting Document(s) White Blood Count 7.5 10 4.0-10.0 Normal (applies to non-numeri c results) [facility] ([facility]) Red Blood Count 3.68 10 4.00-5.40 Below low normal [facility] ([facility]) Hematocrit 34.2 % 36.0-47.0 Below low normal [facility] ( [facility]) Mean Corpuscular Volume 92.9 fl 80.0-96.0 Normal ( applies to non-numeric results) [facility] ([facility]) Hemoglobin 10.3 g/dL 12.0-15.5 Below low normal [facility] ( [facility]) Red Cell Distribution Width 16.3 % 11.5-14.5 Above high normal [facility] ([facility]) Mean Corpuscular HGB Conc 30.1 g/dL 32.0-36.5 Below low normal [facility] ([facility]) Mean Corpuscular Hemoglobin 28.0 pg 27.0-33.0 Norm al (applies to non-numeric results) [facility] ([facility]) Nucleated Red Blood Cell % 0.0 % 0-0 Normal (applies to n on-numeric results) [facility] ([facility]) Platelet Count, Automated 254 10 150-450 Normal (applies to non-numeric results) [facility] ([facility]) ID Date Data Source [id number] 06/23/2020 02:30:00 PM EDT [facility] Name Value Range Interpretation Code Description Data Aby rce(s) Supporting Document(s) SARS coronavirus 2 RNA [facility] This lab was ordered by [facility] and reported by [facility]. ID Date Data Source [id number] 06/19/2020 12:00:00 AM EDT [facility] Carlos Gilbert MD Patient Name: ABDULKADIR [id number] [facility] Date of : 1955[place] Date of Exam: 06/19/2020[place] CHARISSA [id number]#: Fax: [phone] EXAM: CT THORAX WITHOUT CONTRASTCLINICAL [...] with some persistent chronic changes.Accredited by the [employer] in [place].ELOY Wooten/Eamon you for referring DUY RODRIGUEZ to our office. Electronically Signed - JARROD ZAPATA DO 06/20/20 12:01 Name Value Range Interpretation Code Description Data Aby rce(s) Supporting Document(s) ID Date Data Source [id number] 06/11/2020 12:00:00 AM EDT [facility] Arnoldo Cortez Pa-C Patient Name: DUY RODRIGUEZ [id number] Date [facility] : 1955[facility] [place] [address] Date of Exam: 06/11/2020#: Fax: [phone] EXAM: [...] rce(s) Supporting Document(s) ID Date Data Source [id number] 06/11/2020 12:00:00 AM EDT [facility] Arnoldo Cortez Pa-C Patient Name: DUY RODRIGUEZ [id number] Date of : 1955[place] [address] Date of Exam: 06/11/2020#: Fax: [phone] EXAM: [...] rce(s) Supporting Document(s) ID Date Data Source [id number] 06/11/2020 12:00:00 AM EDT [facility] Arnoldo Cortez Pa-C Patient Name: DUY RODRIGUEZ [id number] Date of : 1955[place] [address] Date of Exam: 06/11/2020#: Fax: [phone] EXAM: [...] rce(s) Supporting Document(s) ID Date Data Source [id number] 06/03/2020 03:30:00 PM EDT [facility] ([facility]) Name Value Range Interpretation Code Description Data Aby rce(s) Supporting Document(s) Appearance, Urine Laboratory test result Above high normal [facility] ([facility]) PH,Urine 6.0 units 5.0-9.0 Normal (applies to non-numeric resul ts) [facility] ([facility]) Specific [place] Urine Auto 1.008 1.002-1.035 Norm al (applies to non-numeric results) [facility] ([facility]) Color, Urine Laboratory test result Normal (applies to non -numeric results) [facility] ([facility]) Protein, Urine Auto Laboratory test result Above high norm al [facility] ([facility]) Glucose, Urine (Ua) Auto Laboratory test result Normal (applies to non-numeric results) [facility] ([facility]) Ketone, Urine Auto Laboratory test result Normal (applies to non-numeric results) [facility] ([facility]) Bilirubin, Urine Auto Laboratory test result Nor mal (applies to non-numeric results) [facility] ([facility]) Urobilinogen, Urine Auto 0.2 mg/dL 0.0-2.0 Normal (applies to non-numeric results) [facility] ([facility]) Nitrite, Urine Auto Laboratory test result Jody l (applies to non-numeric results) [facility] ([facility]) Blood, Urine Blood Laboratory test result Above high jody l [facility] ([facility]) Leukocyte Esterase, Urine Auto Laboratory test result Abov e high normal [facility] ([facility]) WBC, Urine Auto Laboratory test result 0-3 Above high normal [facility] ([facility]) Bacteria, Urine Auto Laboratory test result Above high nor mal [facility] ([facility]) RBC, Urine Auto 27 /HPF 0-3 Above high normal [facility] ([facility]) Squamous Epithelial Cell Ur AU 0 /HPF 0-6 N ormal (applies to non-numeric results) [facility] ([facility]) Mucus, Urine Laboratory test result Normal (applies to non -numeric results) [facility] ([facility]) Hyaline Cast, Urine Auto 0 /LPF 0-1 Normal (applies to non -numeric results) [facility] ([facility]) ID Date Data Source [id number] 06/03/2020 03:30:00 PM EDT [facility] ([facility]) Name Value Range Interpretation Code Description Data Aby rce(s) Supporting Document(s) Bacteria identified in Urine by Culture Laboratory test result Normal (applies to non-numeric results) [facility] ([facility]) <content>FULL REPORT IN LAB NOTES (eCW [...] FOR ESBL</content>
<content></content> ID Date Data Source [id number] 06/02/2020 10:30:00 AM EDT [facility] ([facility]) Name Value Range Interpretation Code Description Data Aby rce(s) Supporting Document(s) White Blood Count 8.6 10 4.0-10.0 Normal (applies to non-numeri c results) [facility] ([facility]) Hematocrit 31.3 % 36.0-47.0 Below low normal [facility] ( [facility]) Hemoglobin 9.7 g/dL 12.0-15.5 Below low normal [facility] Red Blood Count 3.42 10 4.00-5.40 Below low normal [facility] ([facility]) Mean Corpuscular Hemoglobin 28.4 pg 27.0-33.0 Norm al (applies to non-numeric results) [facility] ([facility]) Mean Corpuscular Volume 91.5 fl 80.0-96.0 Normal ( applies to non-numeric results) [facility] ([facility]) Mean Corpuscular HGB Conc 31.0 g/dL 32.0-36.5 Below low normal [facility] ([facility]) Platelet Count, Automated 208 10 150-450 Normal (applies to non-numeric results) [facility] ([facility]) Red Cell Distribution Width 16.5 % 11.5-14.5 Above high normal [facility] ([facility]) Neutrophils % 63.0 % 36.0-66.0 Normal (applies to non-numeric re sults) [facility] ([facility]) Lymph % 19.6 % 24.0-44.0 Below low normal [facility] ( [facility]) Woodruff % 10.1 % 0.0-5.0 Above high normal [facility] ([facility]) Eos % 6.3 % 0.0-3.0 Above high normal [facility] ([facility]) Baso % 0.4 % 0.0-1.0 Normal (applies to non-numeric resul ts) [facility] ([facility]) Nucleated Red Blood Cell % 0.0 % 0-0 Normal (applies to n on-numeric results) [facility] ([facility]) Immature Granulocyte % 0.6 % 0-3.0 Normal (applies to non-n umeric results) [facility] ([facility]) Lymph # 1.7 10 1.5-5.0 Normal (applies to non-numeric resul ts) [facility] ([facility]) Woodruff # 0.9 10 0.0-0.8 Above high normal [facility] ([facility]) Neutrophils # 5.4 10 1.5-8.5 Normal (applies to non-numeric re sults) [facility] ([facility]) Eos # 0.5 10 0.0-0.5 Normal (applies to non-numeric resul ts) [facility] ([facility]) Baso # 0.0 10 0.0-0.2 Normal (applies to non-numeric resul ts) [facility] ([facility]) ID Date Data Source [id number] 06/02/2020 10:30:00 AM EDT [facility] ([facility]) Name Value Range Interpretation Code Description Data Aby rce(s) Supporting Document(s) Randa (Hep2) Laboratory test result Normal (applies to non-n umeric results) [facility] ([facility]) <content>Negative <1:80</content>
<content>Borderline 1:80</content>
<content>Positive >1:80</content>
<content>Performed at: [facility]content>
<content>[address] [place] [address] [phone]</content>
<content>[employer]ender Lace: Javier Scott MD, Phone: [phone]</content>
<content>Performed at: [facility]</content>
<content>[address] [place] [address] [phone]</content>
<content>[employer] Tender Lace: Tammy Sarmiento MD, Phone: [phone]</content>
<content></content> ID Date Data Source [id number] 06/02/2020 10:30:00 AM EDT [facility] ([facility]) Name Value Range Interpretation Code Description Data Aby rce(s) Supporting Document(s) Laboratory test finding (navigational concept) 1.1 ug/mL 1 .0-2.5 Normal (applies to non-numeric results) [facility] ([facility]) This test was developed and its performa nce characteristics determined by [facility]. It has not been cleared or approved by the Food and Drug Administration. Detection Limit = 0.2 Laboratory test finding (navigational concept) 0.8 ug/mL 1 .0-2.5 Below low normal [facility] ([facility]) This test was developed and its performa nce characteristics determined by [facility]. It has not been cleared or approved by the Food and Drug Administration. Detection Limit = 0.2 ID Date Data Source [id number] 06/02/2020 10:30:00 AM EDT [facility] ([facility]) Name Value Range Interpretation Code Description Data Aby rce(s) Supporting Document(s) Thyroid Stimulating Hormone 6.210 uIU/ML 0.358-3.740 Above high jody l [facility] ([facility]) Free T4 1.85 ng/dL 0.76-1.46 Above high normal [facility] ([facility]) ID Date Data Source [id number] 06/02/2020 10:30:00 AM EDT [facility] ([facility]) Name Value Range Interpretation Code Description Data Aby rce(s) Supporting Document(s) Lipase [Enzymatic activity/volume] in Serum or Plasma 82 U/L 73-393 Normal (applies to non-numeric results) [facility]) ID Date Data Source [id number] 06/02/2020 10:30:00 AM EDT [facility] ([facility]) Name Value Range Interpretation Code Description Data Aby rce(s) Supporting Document(s) Iron (Fe) 37 ug/dL 50-170 Below low normal [facility] Percent Saturation 16.6 % 13.2-45.0 Normal (applies to non-numer ic results) [facility] ([facility]) Total Iron Binding Capacity 223 ug/dL 250-450 Below low normal [facility] ([facility]) ID Date Data Source [id number] 06/02/2020 10:30:00 AM EDT [facility] ([facility]) Name Value Range Interpretation Code Description Data Aby rce(s) Supporting Document(s) Magnesium [Mass/volume] in Serum or Plasma 1.3 mg/dL 1.8-2.4 Belo w low normal [facility] ([facility]) ID Date Data Source [id number] 06/02/2020 10:30:00 AM EDT [facility] ([facility]) Name Value Range Interpretation Code Description Data Aby rce(s) Supporting Document(s) Glucose, Fasting 71 mg/dL 70-100 Normal (applies to non-numeric results) [facility]) Creatinine For GFR 0.86 mg/dL 0.55-1.30 Normal (applies to non -numeric results) [facility] ([facility]) Blood Urea Nitrogen 6 mg/dL 7-18 Below low normal [facility] Glomerular Filtration Rate Laboratory test result Normal (applies to non- numeric results) [facility] ([facility]) <content>Units are mL/min/1.73 m2</content>
<content></content>
<content>Chronic Kidney Disease Staging per NKF:</content>
<content></content>
<content>Stage I & II GFR >=60 Normal to Mildly Decreased</content>
<content>Stage III GFR 30- 59 Moderately Decreased</content>
<content>Stage IV GFR 15-29 Severely Decreased</content>
<content>Stage V GFR <15 Very Little GFR Left</content>
<content>ESRD GFR <15 on BUSINESS PLANNING MANAGER</content>
<content></content> Sodium Level 126 meq/L 136-145 Below low normal [facility] ([facility]) Potassium Serum 4.4 meq/L 3.5-5.1 Normal (applies to non-numeric results) [facility] ([facility]) Carbon Dioxide Level 23 meq/L 21-32 Normal (applies to non-num eladio results) [facility] ([facility]) Chloride Level 94 meq/L 98-107 Below low normal [facility] ([facility]) Calcium Level 8.5 mg/dL 8.8-10.2 Below low normal [facility] ([facility]) Anion Gap 9 meq/L 8-16 Normal (applies to non-numeric resul ts) [facility] ([facility]) ID Date Data Source [id number] 06/02/2020 10:30:00 AM EDT [facility] ([facility]) Name Value Range Interpretation Code Description Data Aby rce(s) Supporting Document(s) Alt/SGPT 14 U/L 12-78 Normal (applies to non-numeric resul ts) [facility] ([facility]) Ast/Sgot 15 U/L 7-37 Normal (applies to non-numeric resul ts) [facility] ([facility]) Alkaline Phosphatase 76 U/L 45-117 Normal (applies to non-num eladio results) [facility] ([facility]) Bilirubin,Total 0.3 mg/dL 0.2-1.0 Normal (applies to non-numeric results) [facility] ([facility]) Bilirubin,Direct 0.1 mg/dL 0.0-0.2 Normal (applies to non-numeric results) [facility] ([facility]) Total Protein 6.1 GM/DL 6.4-8.2 Below low normal [facility] ([facility]) Albumin/Globulin Ratio 0.8 1.2-2.2 Below low normal [facility] ([facility]) Albumin 2.7 GM/DL 3.2-5.2 Below low normal [facility] ( [facility]) ID Date Data Source [id number] 06/02/2020 10:30:00 AM EDT [facility] ([facility]) Name Value Range Interpretation Code Description Data Aby rce(s) Supporting Document(s) C reactive protein [Mass/volume] in Serum or Plasma by High sensitivity method 0.96 mg/dL 0.00-0.30 Above high normal [facility] ID Date Data Source [id number] 06/02/2020 08:33:00 AM EDT [facility] ([facility]) Name Value Range Interpretation Code Description Data Aby rce(s) Supporting Document(s) Platelets 208 172-450 [facility] White Blood Count 8.6 4.0-10.0 [facility] ([facility]) Red Blood Count 3.42 4.00-5.40 [facility] ([facility]) Hematocrit 31.3 [facility] ([facility]) Hemoglobin 9.7 [facility] ([facility]) ID Date Data Source [id number] 06/02/2020 08:33:00 AM EDT [facility] Name Value Range Interpretation Code Description Data Aby rce(s) Supporting Document(s) Thyroid Stimulating Hormone 6.210 0.358-3.740 [facility] ([facility]) Free T4 1.85 [facility] C-Reactive Protein 0.96 [facility] ([facility]) Lipoprotein lipase [Enzymatic activity/volume] in Serum or Plasma 82 [facility] ([facility]) ID Date Data Source [id number] 06/02/2020 08:33:00 AM EDT [facility] ([facility]) Name Value Range Interpretation Code Description Data Aby rce(s) Supporting Document(s) Iron 37 50-170 [facility] Iron binding capacity [Mass/volume] in Serum or Plasma 223 [facility] ([facility]) Tibc % Saturation 16.6 [facility] ([facility]) ID Date Data Source [id number] 06/02/2020 08:33:00 AM EDT [facility] ([facility]) Name Value Range Interpretation Code Description Data Aby rce(s) Supporting Document(s) Magnesium Level 1.3 1.8-2.4 [facility] ([facility]) ID Date Data Source [id number] 06/02/2020 08:33:00 AM EDT [facility] Name Value Range Interpretation Code Description Data Aby rce(s) Supporting Document(s) Calcium [Mass/volume] in Serum or Plasma 8.5 [facility] ([facility]) Albumin [Mass/volume] in Serum or Plasma 2.7 [facility] ([facility]) Alanine aminotransferase [Enzymatic activity/volume] in Serum or Pl asma 14 [facility] ([facility]) Chloride [Moles/volume] in Serum or Plasma 94 [facility] ([facility]) Alkaline phosphatase [Enzymatic activity/volume] in Serum or Plasma 7 6 [facility] ([facility]) Carbon dioxide, total [Moles/volume] in Serum or Plasma 8.5 [facility] ([facility]) Potassium [Moles/volume] in Serum or Plasma 4.4 [facility] ([facility]) Sodium 126 [facility] Protein [Mass/volume] in Serum or Plasma 6.1 [facility] ([facility]) Glucose 71 70-100 [facility] Urea nitrogen [Mass/volume] in Serum or Plasma 6 [facility] ([facility]) Aspartate aminotransferase [Enzymatic activity/volume] in Serum or Plasma 15 [facility] ([facility]) Creatinine For GFR 6 [facility] ([facility]) ID Date Data Source [id number] 04/02/2020 06:00:00 PM EDT [facility] ([facility]) Name Value Range Interpretation Code Description Data Aby rce(s) Supporting Document(s) aPTT in Platelet poor plasma by Coagulation assay 108.7 s 25.0-38.4 Above high normal [facility] ([facility]) ID Date Data Source [id number] 04/02/2020 09:45:00 AM EDT [facility] ([facility]) Name Value Range Interpretation Code Description Data Aby rce(s) Supporting Document(s) aPTT in Platelet poor plasma by Coagulation assay 45.1 s 25.0-38.4 Above high normal [facility] ([facility]) ID Date Data Source [id number] 04/02/2020 12:01:00 AM EDT [facility] ([facility]) Name Value Range Interpretation Code Description Data Aby rce(s) Supporting Document(s) aPTT in Platelet poor plasma by Coagulation assay 95.8 s 25.0-38.4 Above high normal [facility] ([facility]) ID Date Data Source [id number] 03/28/2020 01:00:00 PM EDT [facility] ([facility], ) Name Value Range Interpretation Code Description Data Aby rce(s) Supporting Document(s) Surgical pathology study Laboratory test result [facility] ([facility], ) <content>FINAL DIAGNOSIS</content>
< content></content>
[...] in aggregate</content>
<content>are noted in the container. Law Professor sections are submitted as</content>
<content>follows; (A1 & A2) cecum, (A3 & A4) transverse colon and (A5 & A6)</content>
<content>sigmoid colon.</content>
<content>- SH</content>
<content>04/24/2020 - 1413</content>
<content> </content>
<content>Signed Cortez Portillo MD 04/24/2020 1558</content>
<content></content> ID Date Data Source [id number] 03/28/2020 11:25:00 AM EDT [facility] ([facility]) Name Value Range Interpretation Code Description Data Aby rce(s) Supporting Document(s) Packed Cells Laboratory test result [facility] ([facility]) TRANSFUSED PRODUCT: PACKED CELLS COUNT: 2 ID Date Data Source [id number] 03/28/2020 11:25:00 AM EDT [facility] ([facility]) Name Value Range Interpretation Code Description Data Aby rce(s) Supporting Document(s) AB Screen (Indirect Sara)Vis Laboratory test result Normal (applies to non- numeric results) [facility] ([facility]) Blood Type Laboratory test result Normal (applies to non-n umeric results) [facility] ([facility]) ID Date Data Source [id number] 03/28/2020 06:40:00 AM EDT [facility] ([facility]) Name Value Range Interpretation Code Description Data Aby rce(s) Supporting Document(s) Magnesium [Mass/volume] in Serum or Plasma 5.5 mg/dL 1.8-2 .4 Above upper panic limits [facility] ([facility]) ID Date Data Source [id number] 03/28/2020 06:40:00 AM EDT [facility] ([facility]) Name Value Range Interpretation Code Description Data Aby rce(s) Supporting Document(s) Blood Urea Nitrogen 36 mg/dL 7-18 Above high normal [facility] ([facility]) Glucose, Fasting 130 mg/dL 70-100 Above high normal [facility] Creatinine For GFR 1.77 mg/dL 0.55-1.30 Above high normal [facility] ([facility]) Sodium Level 136 meq/L 136-145 Normal (applies to non-numeric res ults) [facility] ([facility]) Potassium Serum 7.2 meq/L 3.5-5.1 Above upper panic limits [facility] ([facility]) This specimen has an elevated potassium level but there is NO visible hemolysis noted. Glomerular Filtration Rate 30.5 Below low normal [facility] ([facility]) <content>Units are mL/min/1.73 m2</content>
<content></content>
<content>Chronic Kidney Disease Staging per NKF:</content>
<content></content>
<content>Stage I & II GFR >=60 Normal to Mildly Decreased</content>
<content>Stage III GFR 30- 59 Moderately Decreased</content>
<content>Stage IV GFR 15-29 Severely Decreased</content>
<content>Stage V GFR <15 Very Little GFR Left</content>
<content>ESRD GFR <15 on BUSINESS PLANNING MANAGER</content>
<content></content> Chloride Level 108 meq/L 98-107 Above high normal [facility] ([facility]) Carbon Dioxide Level 17 meq/L 21-32 Below low normal [facility] ([facility]) Anion Gap 11 meq/L 8-16 Normal (applies to non-numeric resul ts) [facility] ([facility]) Ast/Sgot 31 U/L 7-37 Normal (applies to non-numeric resul ts) [facility] ([facility]) Calcium Level 7.9 mg/dL 8.8-10.2 Below low normal [facility] ([facility]) Alkaline Phosphatase 67 U/L 45-117 Normal (applies to non-num eladio results) [facility] ([facility]) Alt/SGPT 22 U/L 12-78 Normal (applies to non-numeric resul ts) [facility] ([facility]) Bilirubin,Total 1.3 mg/dL 0.2-1.0 Above high normal [facility] ([facility]) Albumin 2.5 GM/DL 3.2-5.2 Below low normal [facility] ( [facility]) Total Protein 5.4 GM/DL 6.4-8.2 Below low normal [facility] ([facility]) Albumin/Globulin Ratio 0.9 1.2-2.2 Below low normal [facility] ([facility]) ID Date Data Source [id number] 03/28/2020 06:40:00 AM EDT [facility] ([facility]) Name Value Range Interpretation Code Description Data Ayb rce(s) Supporting Document(s) White Blood Count 19.8 10 4.0-10.0 Above high normal [facility] ([facility]) Red Blood Count 4.98 10 4.00-5.40 Normal (applies to non-numeric results) [facility] ([facility]) Hematocrit 47.1 % 36.0-47.0 Above high normal [facility] ([facility]) Hemoglobin 14.8 g/dL 12.0-15.5 Normal (applies to non-numeric resul ts) [facility] ([facility]) Mean Corpuscular Volume 94.6 fl 80.0-96.0 Normal ( applies to non-numeric results) [facility] ([facility]) Mean Corpuscular Hemoglobin 29.7 pg 27.0-33.0 Norm al (applies to non-numeric results) [facility] ([facility]) Red Cell Distribution Width 14.7 % 11.5-14.5 Above high normal [facility] ([facility]) Platelet Count, Automated 335 10 150-450 Normal (applies to non-numeric results) [facility] ([facility]) Mean Corpuscular HGB Conc 31.4 g/dL 32.0-36.5 Below low normal [facility] ([facility]) Nucleated Red Blood Cell % 0.0 % 0-0 Normal (applies to n on-numeric results) [facility] ([facility]) ID Date Data Source [id number] 03/27/2020 04:27:00 PM EDT [facility] ([facility]) Name Value Range Interpretation Code Description Data Aby rce(s) Supporting Document(s) Red Blood Count 4.86 10 4.00-5.40 Normal (applies to non-numeric results) [facility] ([facility]) White Blood Count 14.4 10 4.0-10.0 Above high normal [facility] ([facility]) Mean Corpuscular Volume 91.8 fl 80.0-96.0 Normal ( applies to non-numeric results) [facility] ([facility]) Hematocrit 44.6 % 36.0-47.0 Normal (applies to non-numeric resul ts) [facility] ([facility]) Hemoglobin 14.5 g/dL 12.0-15.5 Normal (applies to non-numeric resul ts) [facility] ([facility]) Red Cell Distribution Width 14.0 % 11.5-14.5 Norm al (applies to non-numeric results) [facility] ([facility]) Mean Corpuscular HGB Conc 32.5 g/dL 32.0-36.5 Normal (applies to non-numeric results) [facility] ([facility]) Mean Corpuscular Hemoglobin 29.8 pg 27.0-33.0 Norm al (applies to non-numeric results) [facility] ([facility]) Platelet Count, Automated 248 10 150-450 Normal (applies to non-numeric results) [facility] ([facility]) Neutrophils % 74.4 % 36.0-66.0 Above high normal [facility] ([facility]) Lymph % 10.9 % 24.0-44.0 Below low normal [facility] ( [facility]) Woodruff % 13.9 % 0.0-5.0 Above high normal [facility] ([facility]) Eos % 0.3 % 0.0-3.0 Normal (applies to non-numeric resul ts) [facility] ([facility]) Baso % 0.2 % 0.0-1.0 Normal (applies to non-numeric resul ts) [facility] ([facility]) Immature Granulocyte % 0.3 % 0-3.0 Normal (applies to non-n umeric results) [facility] ([facility]) Neutrophils # 10.7 10 1.5-8.5 Above high normal [facility] ([facility]) Nucleated Red Blood Cell % 0.0 % 0-0 Normal (applies to n on-numeric results) [facility] ([facility]) Lymph # 1.6 10 1.5-5.0 Normal (applies to non-numeric resul ts) [facility] ([facility]) Baso # 0.0 10 0.0-0.2 Normal (applies to non-numeric resul ts) [facility] ([facility]) Woodruff # 2.0 10 0.0-0.8 Above high normal [facility] ([facility]) Eos # 0.0 10 0.0-0.5 Normal (applies to non-numeric resul ts) [facility] ([facility]) ID Date Data Source [id number] 03/27/2020 04:27:00 PM EDT [facility] ([facility]) Name Value Range Interpretation Code Description Data Aby rce(s) Supporting Document(s) Inr 1.17 Normal (applies to non-numeric resul ts) [facility] ([facility]) THERAPUTIC HUMAN INR VALUES INDICATIONS NORMAL RANGES PROPHYLAXIS/TREATMENT OF: VENOUS THROMBOSIS 2.0-3.0 PULMONARY EMBOLISM 2.0-3.0 PREVENTION OF SYSTEMIC EMBOLISM FROM: TISSUE HEART VALVES 2.0-3.0 ACUTE MYOCARDIAL INFARCTION 2.0-3.0 VALVULAR HEART DISEASE 2.0-3.0 ATRIAL FIBRILLATION 2.0-3.0 MECHANICAL VALVES(HIGH RISK) 2.5-3.5 RECURRENT MYOCARDIAL INFARCTION 2.5-3.5 Partial Thromboplastin Time 35.4 s 25.0-38.4 Norm al (applies to non-numeric results) [facility] ([facility]) Prothrombin Time 15.2 s 11.8-14.0 Above high normal [facility] ID Date Data Source [id number] 03/27/2020 11:12:00 AM EDT [facility] ([facility]) Name Value Range Interpretation Code Description Data Aby rce(s) Supporting Document(s) Coronavirus 2019 Nasopharygeal Laboratory test result [facility] ([facility]) Laboratory test finding (navigational concept) Laboratory test result [facility] ([facility]) Laboratory test finding (navigational concept) Laboratory test r esult Normal (applies to non-numeric results) [facility] ([facility]) A false negative result may occur [...] pathogens. DISCLAIMER: Testing was performed using the [employer] SARS-CoV-2 test. This test was developed and its performance characteristics determined by [employer]. This test has not been FDA cleared [...] test finding (navigational concept) Laboratory test result [facility] ([facility]) Laboratory test finding (navigational concept) Laboratory test result [facility] ([facility]) Laboratory test finding (navigational concept) Laboratory test result [facility] ([facility]) Laboratory test finding (navigational concept) Laboratory test result [facility] ([facility]) Laboratory test finding (navigational concept) Laboratory test result [facility] ([facility]) Laboratory test finding (navigational concept) Laboratory test result [facility] ([facility]) Laboratory test finding (navigational concept) Laboratory test result [facility] ([facility]) Laboratory test finding (navigational concept) Laboratory test result [facility] ([facility]) Laboratory test finding (navigational concept) Laboratory test result [facility] ([facility]) Laboratory test finding (navigational concept) Laboratory test result [facility] ([facility]) Laboratory test finding (navigational concept) Laboratory test result [facility] ([facility]) Laboratory test finding (navigational concept) Laboratory test result [facility] ([facility]) Laboratory test finding (navigational concept) Laboratory test result [facility] ([facility]) Laboratory test finding (navigational concept) Laboratory test result [facility] ([facility]) Laboratory test finding (navigational concept) Laboratory test result [facility] ([facility]) Laboratory test finding (navigational concept) Laboratory test result [facility] ([facility]) Laboratory test finding (navigational concept) Laboratory test result [facility] ([facility]) Laboratory test finding (navigational concept) Laboratory test result [facility] ([facility]) Laboratory test finding (navigational concept) Laboratory test result [facility] ([facility]) Laboratory test finding (navigational concept) Laboratory test result [facility] ([facility]) Laboratory test finding (navigational concept) Laboratory test result [facility] ([facility]) Laboratory test finding (navigational concept) Laboratory test result [facility] ([facility]) ID Date Data Source [id number] 02/18/2020 10:40:49 AM EDT [facility] Name Value Range Interpretation Code Description Data Aby rce(s) Supporting Document(s) Progress Note [facility] YBTUMh5bKvLXHuKj78/ZWSpbDTVto2EiHYfaVDy4PJekSCSvU7NrJOV1dB2bZXP1BMlGUlQgLaYeDhAs lbm [file] O3zpnspAqickkprD+8tKgqlxfuc6E1ihw57b47el0o +BhpyaVhgF/lofXWh3hH2BSDOzGc9EOf11ia+9zqCqQQRbPL8w/9eZfsuDlnGsjxNQN51e6nrX+yPvWP lVfbEo6ZPZkrkj3/I/oespeyG7K7HKsMJro1MfAOAMJfSUL4KBF+YRWWZXWqaeKK1WR/uBFVJM7Iqt+b jKZ+ZLJsm64nhk17UjL3UGVAgHggD80cN7PdZ3PzbL w6PIxOY6Crkd/glzeIpSvIZ3tPJo/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 [file] AgICAgICAgICAgICAgICAgICAgICAgICAgICAgICAg ICAgICAgICAgICAgICAgICAgICAgICAgICAgICAgICAgICAgICAgICANCiAgICAgICAgICAgICAgICAg ICAgICAgICAgICAgICAgICAgICAgICAgICAgICAgICAgICAgICAgICAgICAgICAgICAgICAgICAgICAg ICAgICAgICAgICAgICAgICAgICAgICANCiAgICAgIC AgICAgICAgICAgICAgICAgICAgICAgICAgICAgICAgICAgICAgICAgICAgICAgICAgICAgICAgICAgIC AgICAgICAgICAgICAgICAgICAgICAgICAgICAgICAgICANCiAgICAgICAgICAgICAgICAgICAgICAgIC AgICAgICAgICAgICAgICAgICAgICAgICAgICAgICAg ICAgICAgICAgICAgICAgICAgICAgICAgICAgICAgICAgICAgICAgICAgICANCiAgICAgICAgICAgICAg ICAgICAgICAgICAgICAgICAgICAgICAgICAgICAgICAgICAgICAgICAgICAgICAgICAgICAgICAgICAg ICAgICAgICAgICAgICAgICAgICAgICAgICANCiAgIC AgICAgICAgICAgICAgICAgICAgICAgICAgICAgICAgICAgICAgICAgICAgICAgICAgICAgICAgICAgIC AgICAgICAgICAgICAgICAgICAgICAgICAgICAgICAgICAgICANCiAgICAgICAgICAgICAgICAgICAgIC AgICAgICAgICAgICAgICAgICAgICAgICAgICAgICAg ICAgICAgICAgICAgICAgICAgICAgICAgICAgICAgICAgICAgICAgICAgICAgICANCiAgICAgICAgICAg ICAgICAgICAgICAgICAgICAgICAgICAgICAgICAgICAgICAgICAgICAgICAgICAgICAgICAgICAgICAg ICAgICAgICAgICAgICAgICAgICAgICAgICAgICANCi AgICAgICAgICAgICAgICAgICAgICAgICAgICAgICAgICAgICAgICAgICAgICAgICAgICAgICAgICAgIC AgICAgICAgICAgICAgICAgICAgICAgICAgICAgICAgICAgICAgICANCiAgICAgICAgICAgICAgICAgIC AgICAgICAgICAgICAgICAgICAgICAgICAgICAgICAg ICAgICAgICAgICAgICAgICAgICAgICAgICAgICAgICAgICAgICAgICAgICAgICAgICANCjw/zQJnX8ij mKZuioN9D7lmVm9MVk4DWY3ff0DuNEPiIYwqoxSiXvuJHlVfTAQdWxuGOow5MGetQP6NsIBoJ5CqG3Cg KKxzBY2XQJJoVBOgaOBtPULgODOeGzA4AGToRMwaYE 6FsXTePFmlQWTbIDBwXxUzBKCkQVZuILOuIWVeLIGOUMNqPAGwFkYnXUFmQVZkFEcjMUGDYLL0QUKpHh LpAILfRWImUkOuLXYJFB4NAtBcB5DhgC59ROLmOOm+Xo2URX0mj3BmOAm5QnCeYG8edx5LIHxIRhIcX0 YbopJ9SCM8CAFjJe3AWAAnYBTlnPF5AIPkHCYFAtCd J0BdrB47KXVSHa1+ZDzkdkItRdfKYxY2IXRov2ViTEa8YY3LLSIdGLq1kNFxDKXkN9Rns5PhGv40DAPo HlcdJukmlmwoo72xDWa3FFLHCDEqjVS1YvKhJjCwYlGzCAG9PBPhDW7mNDnkOP7YFMD9NAtfAOEqKHOa R6fANpSmNBMaSPKpiAihPW5YPzFvI6LenyFgmCK6Yu AwIFINCj4+PWvfodCpInxVOzB0HEGhi2AcQEu8JJ3QDNFgCWohNY5CJCIvoX1fQAodPF3GFeB6IGKfAW JSDlHzB66kiPAbDSi7W9BbLhHrQWKdBzerIITlAQnoUpYaVPFiAoLjDVnmFP9+ID4+OPgxIQ7DKHualp HbXOSdRw6YGCFrAMMwSO4oLPFiWNBrG9Q1iXzeHYPM IqXeC1mmwyjvMQ7jNKMxS937cEylyaCbKKZlBPJbIs9GIZLvONL1XNAndHUgBLBnAYMSPYjfKB3AqQZq PYH1gH5eMZwuRKZtPQSjG2lOQpBeoPzsBC95qLxjdtUkbFSgLHt+Zg3RCZ4xy7FpKVx3qwRrYVnlFNA0 VTufARNtBBOzBXQnSEC8PDR6ULVMSdXfKXSqIVVqYY ohLMBzBLWwjz9NGJKbGJC2DXCvPXCyLWNzGYDbYZyuBOXqLKO4QfU8TETnFBXwMW3SLiHbNYBhMTRuHE bzPIRnVFGmir9KMKQbTHPeGsv9FiXzZAYwWSMiVBgkIVSlXUU1YtPjGLUcXQSnKL8UYcHzBARkJYt9RF EeEWGnUKRcsl0FOTRoGHVlVRIeTYWeSAAkITOrBMij ROYpISRfVHXgKQDaVCCpFQ2ZDhDnSPJaTNNaSXAaPZNtLKXtni7VCLHxHGPnDIJ2KLDqCPYtKTFhXFxg HTFvRGT4AaR6UJVqUHCrGN4ISiIpNDOpYxHvGfUeIPWtZENmic5MXWRdFYZiDMG2XOMdRVKqUFOzXIbr KQQwLBS6SGY4YMFjPJXbSO2BRsVfOCXlHmA1WlRpSN NgHKQmax6DYXDjMMYbVfm1NbQmSYCwYCDoXOmjYWWyFBC3MUZrSVLqFGDaTG0UOsWdKMQfIyE0QBttLE RdEQPepc0CKXXxAXFeBMW2XUTjFSFxLQImPXdoAXXrGTH5QzK6FPHhVEXxDO1UKbWdBINwZcJ4WDNzEN XcNZExue0DWIWuZQXfQeHmBTEoXEAqNAQpROhyPBLo EHE8RhIaVBGuGDIhYQ4LZmUvOXGkEfsiIvStUTRaIOZvap1WLRNsWANlUAM5YJVfYTWyOLUrGJnrNLFe CVY9HaOnMHEjQPZlJZ7BClHcRKMbLmn6LNMlWEGcEVLkng4LNLKaLNGsRWmdAdJxLDTtHQEgHSuhATNe UXRfXRRwAZDvTVBxJN3KYcUpCOTsYHJ2MgNmUCVsDY Afkv3GBYMpZCL5NBo9CYLsAQYpUEBnTBqwAZGwLXYjHVU5QMBpRRWcLY5BClNdUFPpNLXoKQHiUDAeUH Vfbz6PKKQwDEK7DjY4NCKaTTLyMKDlCQneXOPaPBNzMoRsPIJoETXsDF1RIgWlOFPlAKS7OVBfCYRcCX Rjyw7OAGGgLFJ4BwG6LkZdUYQaNOTzEDlxPXAiZPY9 InK8HCHlZBCmYJ2SEvBwQBLzMCT9NHCmXYVmOFJnca8PWBShDHX3WVa1PbTfPIHkHCJlMEhfIDNnRDN9 TEN7MHRmPNQlRJ3NVrNmTVIqXNE4IODvUBHyMBSroz1CWSLcROA3Wqb1BsEpXYLpGFPqVPsvPNJqAAQ9 XOOnADGwHAKpUQ2EGeDoVRsySGEYEaq7TKvtN9l1KK J1Gc1LN8Ijl1BmIVIgFWVYAIycJX7lqmUoYIAwHq5KV2yKVoj5LgGgRZG3QNO9SNH4EDD2SnIwP8MqWF QgFQP7FoawSm1iXOa4BBSyMRcdTzq7LMYcIxU8PgRsW6FeSDZ4PcyxMvPkJhExSD1HSt4JPsB1OCC1fC VsTj2EQSusTlwYPoKuIJ7HBHk= ID Date Data Source [id number] 02/11/2020 09:14:00 AM EDT [facility] ([facility]) Name Value Range Interpretation Code Description Data Aby rce(s) Supporting Document(s) Coronavirus 2019 Nasopharygeal Laboratory test result [facility] ([facility]) Testing was performed using the [employer]-CoV-2 assay. This test was developed and its performance characteristics determined by [email or web address]. This test has not been FDA cleared [...] detected) result in this assay. Performed at: [facility] [id number] Burn Out Tender Lace: Tammy Sarmiento MD, Phone: [phone] Not Detected ID Date Data Source [id number] 02/11/2020 09:14:00 AM EDT [facility] Name Value Range Interpretation Code Description Data Aby rce(s) Supporting Document(s) SARS CORONAVIRUS 2 RNA [facility] This lab was ordered by [facility] and reported by [facility]. ID Date Data Source [id number] 11/29/2019 03:30:00 PM EDT [facility] ([facility]) Name Value Range Interpretation Code Description Data Aby rce(s) Supporting Document(s) Ast/Sgot 21 U/L 7-37 Normal (applies to non-numeric resul ts) [facility] ([facility]) Bilirubin,Total 0.2 mg/dL 0.2-1.0 Normal (applies to non-numeric results) [facility] ([facility]) Alkaline Phosphatase 65 U/L 45-117 Normal (applies to non-num eladio results) [facility] ([facility]) Bilirubin,Direct 0.1 mg/dL 0.0-0.2 Normal (applies to non-numeric results) [facility] ([facility]) Alt/SGPT 23 U/L 12-78 Normal (applies to non-numeric resul ts) [facility] ([facility]) Albumin/Globulin Ratio 1.06 1.00-1.93 Normal (applies to non-numeric results) [facility] ([facility]) Total Protein 7.4 GM/DL 6.4-8.2 Normal (applies to non-numeric re sults) [facility] ([facility]) Albumin 3.8 GM/DL 3.2-5.2 Normal (applies to non-numeric resul ts) [facility] ([facility]) ID Date Data Source [id number] 11/29/2019 03:30:00 PM EDT [facility] ([facility]) Name Value Range Interpretation Code Description Data Aby rce(s) Supporting Document(s) White Blood Count 11.0 10 4.0-10.0 Above high normal [facility] ([facility]) Red Blood Count 4.34 10 4.00-5.40 Normal (applies to non-numeric results) [facility] ([facility]) Hemoglobin 13.6 g/dL 12.0-15.5 Normal (applies to non-numeric resul ts) [facility] ([facility]) Hematocrit 41.1 % 36.0-47.0 Normal (applies to non-numeric resul ts) [facility] ([facility]) Mean Corpuscular HGB Conc 33.1 g/dL 32.0-36.5 Normal (applies to non-numeric results) [facility] ([facility]) Mean Corpuscular Hemoglobin 31.3 pg 27.0-33.0 Norm al (applies to non-numeric results) [facility] ([facility]) Red Cell Distribution Width 18.6 % 11.5-14.5 Above high normal [facility] ([facility]) Mean Corpuscular Volume 94.7 fl 80.0-96.0 Normal ( applies to non-numeric results) [facility] ([facility]) Woodruff % 7.3 % 0.0-5.0 Above high normal [facility] ([facility]) Platelet Count, Automated 216 10 150-450 Normal (applies to non-numeric results) [facility] ([facility]) Neutrophils % 60.4 % 36.0-66.0 Normal (applies to non-numeric re sults) [facility] ([facility]) Lymph % 19.8 % 24.0-44.0 Below low normal [facility] ( [facility]) Immature Granulocyte % 0.5 % 0-3.0 Normal (applies to non-n umeric results) [facility] ([facility]) Eos % 11.1 % 0.0-3.0 Above high normal [facility] ([facility]) Baso % 0.9 % 0.0-1.0 Normal (applies to non-numeric resul ts) [facility] ([facility]) Neutrophils # 6.6 10 1.5-8.5 Normal (applies to non-numeric re sults) [facility] ([facility]) Nucleated Red Blood Cell % 0.0 % 0-0 Normal (applies to n on-numeric results) [facility] ([facility]) Woodruff # 0.8 10 0.0-0.8 Normal (applies to non-numeric resul ts) [facility] ([facility]) Lymph # 2.2 10 1.5-5.0 Normal (applies to non-numeric resul ts) [facility] ([facility]) Eos # 1.2 10 0.0-0.5 Above high normal [facility] ([facility]) Baso # 0.1 10 0.0-0.2 Normal (applies to non-numeric resul ts) [facility] ([facility]) ID Date Data Source [id number] 11/29/2019 03:30:00 PM EDT [facility] ([facility]) Name Value Range Interpretation Code Description Data Aby rce(s) Supporting Document(s) Glucose, Fasting 94 mg/dL 70-100 Normal (applies to non-numeric results) [facility] ([facility]) Glomerular Filtration Rate Laboratory test result Normal (applies to non- numeric results) [facility] ([facility]) <content>Units are mL/min/1.73 m2</content>
<content></content>
<content>Chronic Kidney Disease Staging per NKF:</content>
<content></content>
<content>Stage I & II GFR >=60 Normal to Mildly Decreased</content>
<content>Stage III GFR 30- 59 Moderately Decreased</content>
<content>Stage IV GFR 15-29 Severely Decreased</content>
<content>Stage V GFR <15 Very Little GFR Left</content>
<content>ESRD GFR <15 on BUSINESS PLANNING MANAGER</content>
<content></content> Creatinine For GFR 0.80 mg/dL 0.55-1.30 Normal (applies to non -numeric results) [facility] ([facility]) Blood Urea Nitrogen 9 mg/dL 7-18 Normal (applies to non-nume beny results) [facility] ([facility]) Sodium Level 139 meq/L 136-145 Normal (applies to non-numeric res ults) [facility] ([facility]) Potassium Serum 4.3 meq/L 3.5-5.1 Normal (applies to non-numeric results) [facility] ([facility]) Carbon Dioxide Level 29 meq/L 21-32 Normal (applies to non-num eladio results) [facility] ([facility]) Chloride Level 106 meq/L 98-107 Normal (applies to non-numeric r esults) [facility] ([facility]) Calcium Level 9.2 mg/dL 8.8-10.2 Normal (applies to non-numeric re sults) [facility] ([facility]) Anion Gap 4 meq/L 8-16 Below low normal [facility] ( [facility]) ID Date Data Source [id number] 11/29/2019 12:00:00 AM EDT [facility] Arnoldo Cortez Pa-C Patient Name: ABDULKADIR [id number] Date [facility] : 1955[facility] [id number] Date of Exam: 11/29/2019PH#: Fax: [phone] EXAM: [...] rce(s) Supporting Document(s) ID Date Data Source [id number] 11/27/2019 01:45:00 PM EDT [facility] ([facility] Name Value Range Interpretation Code Description Data Aby rce(s) Supporting Document(s) Coronavirus 2019 Nasopharygeal Laboratory test result [facility] ([facility]) Testing was performed using the audrey(R) SARS-CoV-2 test. This test was developed and its performance characteristics determined by [email or web address]. This test has not been FDA cleared [...] or revoked sooner. Performed at: - [facility] [address] [id number] [employer] Lace: Tammy Sarmiento MD, Phone: [phone] Not Detected ID Date Data Source [id number] 11/27/2019 01:45:00 PM EDT [facility] Name Value Range Interpretation Code Description Data Aby rce(s) Supporting Document(s) SARS CORONAVIRUS 2 RNA [facility] This lab was ordered by [facility] and reported by [facility]. ID Date Data Source [id number] 11/06/2019 09:53:38 AM EDT [facility] Name Value Range Interpretation Code Description Data Aby rce(s) Supporting Document(s) Progress Note [facility] OEVPWz5pXvKHHxFs40/CRBawQRKvf8GsARdwTZz5NDleUUGbQ3SpUZW8fR8aSVA7PZtAMnAdZrYbYnPd lbm VbDibBQcCkWMXzGmbFQgLaVSmlQmoacOVkUR4PsFY0VZUmI77oTOBwNDCqX6NnLFM2NSn+He7IYASceH EuJE2UTbfF2L5adyjOCz7osD/PHsIfG9Uoe796CmLZ+CFunTHVEbSNrB0C5UndnUTIUQqS/cyf02QgZb psQXy2RL58ECVqiu8abgRnTzo1ZXd486+yB4pc68mB /5f/iVNkqvyza81Sy2RQH5cl/skGkQ+0l3hx+UH+T+P//oAtdmY2tqQ3XFG/clvSCFER0aSyYkt/evBk xt2xWvQYwsXscISbRoE4R31ViuMluHG50lgGD4F/v7pxC16nW/F6PO8pBZ8lN4ev4FDBmiRH6jTy45nx VSk00qHrXdp6VvppADLmU68vT/ZxGg029mSzKUZdp2 QSz4TmkQ43MNnyNxlVj0vo8U2n18AqpEAz0D7cmbrqIlZg76cfk6G4rvs+O4qnkDtN6xWOk9X2flRchJ nJibDpo6voV3UMqG8mYmZSmiyHuWeST4NzW1G2zexatbsqn/j8yD31X03VeAYiA1kp4XVoqj75uZNYow Vknn3/wG0wRdWYBCG0wX2ZV+tij2rTm2mbImnRpwL7 MBrNsmuH+rlWv8yVvze/VG/7B/3n6iT/q3Fz9kGILNqbp7Ln/7Onw777ouDG6vvkGT6lco1vsumKkVDD pXYSMSZKdk506rM8Jc+KFNm9BCOjgro8TPSkZQF46maQHR7aIt0nwM3jcv99kJbIZhT3OcNNP6nm0am8 dOUVvlQX+Q19ahXt3WgGql3kmIMeo8eOMdCjqD2JXk 3QORNHMLOKtelgj7w3S+kvH62jKyvR2M8dlChUNhndjAL+nXSSIlKOq6N7FOcXiKIiz3LBfJDbFc12mP Hi5L8bMn1XoJD2gVoXvfu+nilh448+88hXMuHN3dzl29Ih0+tdcw2bc6gT2nmsAE+YA9oIpyggX6z7Jg nPg6b6ej9jRWNtp1Z8xtmT3vkjTLdD4rolD4Bhmp6A EP3tq3Obv+saYFRXUuvar4Z1qDx1blMZExxceEpr2mGPxoFIprPx0fDnfh20NfNtytDhN7TuefGDi9f6 pTNXm8+cDr0X/y4yKDyPDjXCpNHRaHyzLGcMQkRweLqxgOmWoW3jzJIhKrDAuPpB0zVFxHrs1rhDmt/K bIQlU9Mo3jffooZxloNOgK9jzQlGTqiRG+UnH6z2fC BxF6Cl0wC8bJuppncU0ryHlHQ61AG1N08agpdbX/vFppAgv6QjNB3gvka9wCiiJS69tK2N1ektIjQo5R xLV+NoU4WeJhECXHxxjykdJc3xvu8dz7u75G5FICRzMxO27dy7R8awGiRxG0Pn6xYYcPaYcOzwAmm9ht Dxc7Ys57ys12c5+++ed6r/8R/TERRAZZO LAYER+kWf7u4Gt4whu22 [file] ogICAgICAgICAgICAgICAgICAgICAgICAgICAgICAgICAgICAgICAgICAgICAgICAgICAgICAgICAgIC AgICAgICAgICAgICAgICAgICAgICAgICAgICAgICAgICAgICAgICAgDQogICAgICAgICAgICAgICAgIC AgICAgICAgICAgICAgICAgICAgICAgICAgICAgICAg ICAgICAgICAgICAgICAgICAgICAgICAgICAgICAgICAgICAgICAgICAgICAgICAgICAgDQogICAgICAg ICAgICAgICAgICAgICAgICAgICAgICAgICAgICAgICAgICAgICAgICAgICAgICAgICAgICAgICAgICAg ICAgICAgICAgICAgICAgICAgICAgICAgICAgICAgIC AgDQogICAgICAgICAgICAgICAgICAgICAgICAgICAgICAgICAgICAgICAgICAgICAgICAgICAgICAgIC AgICAgICAgICAgICAgICAgICAgICAgICAgICAgICAgICAgICAgICAgICAgDQogICAgICAgICAgICAgIC AgICAgICAgICAgICAgICAgICAgICAgICAgICAgICAg ICAgICAgICAgICAgICAgICAgICAgICAgICAgICAgICAgICAgICAgICAgICAgICAgICAgICAgDQogICAg ICAgICAgICAgICAgICAgICAgICAgICAgICAgICAgICAgICAgICAgICAgICAgICAgICAgICAgICAgICAg ICAgICAgICAgICAgICAgICAgICAgICAgICAgICAgIC AgICAgDQogICAgICAgICAgICAgICAgICAgICAgICAgICAgICAgICAgICAgICAgICAgICAgICAgICAgIC AgICAgICAgICAgICAgICAgICAgICAgICAgICAgICAgICAgICAgICAgICAgICAgDQogICAgICAgICAgIC AgICAgICAgICAgICAgICAgICAgICAgICAgICAgICAg ICAgICAgICAgICAgICAgICAgICAgICAgICAgICAgICAgICAgICAgICAgICAgICAgICAgICAgICAgDQog ICAgICAgICAgICAgICAgICAgICAgICAgICAgICAgICAgICAgICAgICAgICAgICAgICAgICAgICAgICAg ICAgICAgICAgICAgICAgICAgICAgICAgICAgICAgIC AgICAgICAgDQogICAgICAgICAgICAgICAgICAgICAgICAgICAgICAgICAgICAgICAgICAgICAgICAgIC YoFWYbFCOyIMQoQCMjGPByGYEbVRChBQWqDHQxCYZeDIJqMMKfDJGbQADeOEGjJAOlQRn1R0wlNKErCQ AyUY5hWAo3Yd8+TXpQEiFgXSX5kwWerJ7UGD3jk4Yo LFwbCWTsa6KfVVb3ZU8URYCtEWqsEC8FGZtfuh5QOLZmHTDfqKLDh1jbYoQbEJE8OBNsOtqiMQ0TWPFf O8axkmQvAHKgUMPUJPohXEFEAEhvFIEZPEAjNRHkQeBaFaWaEOCzRMWiNXMMNTF4JAOfJuWhPFXyJCUz XuXiKJTQGGWmAEIsRoXhKDbmBA1Na4FxwBHyJU9KLc 3EEdMeYH4tje0GTBFtJAFcUkvQQwu6OFcoOJ3AmHOkuHO9ZHXvTFVWHpFjY0qwo5UwEHMgESHWRKedQQ 8Cn7ErrDWiUFz+Np3PTG2ii0KfMDu2DTUaJB9vnx0JZCmALvBtT6AwaIfjMAWim2vvDAEjYN1klLRnFG U7YGmzBN2kvR1xNgVTnEghLULpHXQeLy19AfLrDkYn HHN3XXBeCQ8rWWxhMI3RKJH9ZZrwGCTdLLHiT0pIEaMcGUW5UaKpsNycBR4LGvKaT2OrwwLzbEF9YpJw IFINCj4+NHiqztXjUvpYXtC4JSQoy2VjLNc2OW7ZUJWtAFniWG4JLEXszS9fPOtjCL6XEqR0NYGqYFZV RkLfD58thSYsBXm7P9BmZoSnOLUvZmlaZNMmLSomSo FtZXMgWyBdDQogID4+ID4+CBviRX1URUrsizWxEHHrWl7RYLOyDPHjMB8vRFCdXAGrD9J8hLrlPJGKRj UuT5ubzkwiVP4tUEAgL014vRmfbqVsHPEnQWXjQu9JXJAfMAC5NGYhjKMwOPMbWIKLRCniXM7TcDEbRG N6tD6zPLjvVLQvOXLtS9wBUzUiaTscDM85rVntmlXc bCBdDQo+Yz4NZB6lx8LcNHb6ivYjWQmhPVV5CQhvLPBtFKMbLKRtTMU2LXJ2GUAYWxDhZXYeSIOuTCti ZQFfAZBdgm9VHQHdXDT9YESjBbLwLHSsUNWeCBauIYFzRAK6ZPK4XZUwENVwYF4TQeFwVJOmCHVvYLty CIGlMTJjbc1OTYSwLEBwVRPnRgCuOOYjMIVcXFrbFK KwGAR1PgWoLAAeTKAhBR4FEwToWNMfQPl7GkFaWCLaBGKepu7LKPPpTEAqDOOhIFXgUJSbCEMxQRuzBH LiSTOhOSYkWMOwHHHuZB6CNcYaDQSnXCVpLJZuSHMuSBOshe8DQRPvNKOeMHPeCoXbJRIpQQMzMBeoJW ZjQXD0RnR6OYNaFANhFS3HVuXnKLPgZaJ8SrjhVGJu KRBjzd6BQTQoYHRvQJNdDIKaDRQaQCVgLRpaFWZrAHM0AZJ9RZGzCTLzOZ9OAjLjXGQxFgB0CIGdSEYh WSCjnz4FAQGkSCBsPAU6BFJiJTJqYTXgETinEBKdKXQ4ZmwaDGYrHRUeLY7AEtQiEEOuWnS0KhliIAGy YXFbge5XTJLtPPUdWSgoFPPsHDFwVISbZEntNBEhFO W5GIZ3OUGzMSFzSC3NTwLoLQRbDtNbCpDhVOWjYWSytn9RQPTgJAUsXdYoZpDlTPMyLRHuNQgmXGHfGE J4WlCuOWWiZKDjMP5EElEdQWKtAop6JjTvYXOsUVQitn8QWDOqTTBdLlb0OIKfTXCnOGGeLOqhTZQyIW I6VCFfKGQqIIVlOM8APfXxIEVuWlv8KJUwLPHkWZFj se4RELDyUWVrEXAqYXRuCTQlEFHnQYsiPCGaCPH1QsCgAJUvAIKxCO9LPeAqOTTqFQS6XnBhKTOsFDXy bt5UUMNbBFN6FBA0TmVuFIKaFEJgXTooOASiQKBpQvU5IFAwOAVsPK4HMtNlVIEvVFJ2XNNnLPYmMZBk ap2FGNQbUYQ9UAM6AwXkTNAwTDKwODznLIRdONOpWs C3YLUgNLXkGX8GHsWqZYXmATM3CGLrQJGtSKBxct0JJTCxOAD5Div0WLPjGEMsJKSlXWlvGFKwLWEwLA R0DRVqOPRaWM1LDnTxLNBiLDUdRLHrXHIlCXAxtn5JAAKoQAO5VJK6ZUVtFGXkVIToAQoqPLDbZRF5Zu R8YQTbMKGvUR4PTlXbUSGwOQSzFQumUVNwTPExyr8D AZCpVGX1ImN0IRKvMPLuSILdAMccBRFpUUQ2YPX4BKRoJBWxAR6MLeFpNThkEBJYSeb3JQzfN0h9QSO2 Ba2HH5Lth2QxRPNpEGFLNEmxNA9kzqByFFHmYj5DU9dCMsfrVOE0TLl2VYI2BUT0RcHeA7XuBzCjKwH9 EtDiXfIaZm6wIYLzNjEwDeF1WNtyUNkpOJO2IdV6RQ M9ZCAgSgZeQKTlXzEnNK1VWg4SKrA9HQM6dRFuEc4JDGM7YnrVAoHgOP5GPNs= ID Date Data Source [id number] 10/27/2019 11:58:00 AM EST [facility] ([facility]) Name Value Range Interpretation Code Description Data Aby rce(s) Supporting Document(s) Gastrointestinal (GI) Panel Laboratory test result [facility] ([facility]) This Gastrointestinal PCR Panel detects the [...] NUCLEIC ACID PCR ID Date Data Source [id number] 10/27/2019 11:09:00 AM EST [facility] ([facility]) Name Value Range Interpretation Code Description Data Aby rce(s) Supporting Document(s) Magnesium [Mass/volume] in Serum or Plasma 4.8 mg/dL 1.8-2 .4 Above upper panic limits [facility] ([facility]) ID Date Data Source [id number] 10/27/2019 11:09:00 AM EST [facility] ([facility]) Name Value Range Interpretation Code Description Data Aby rce(s) Supporting Document(s) Glucose, Fasting 108 mg/dL 70-100 Above high normal [facility] ([facility]) Glomerular Filtration Rate 34.8 Below low normal [facility] ([facility]) <content>Units are mL/min/1.73 m2</content>
<content></content>
<content>Chronic Kidney Disease Staging per NKF:</content>
<content></content>
<content>Stage I & II GFR >=60 Normal to Mildly Decreased</content>
<content>Stage III GFR 30- 59 Moderately Decreased</content>
<content>Stage IV GFR 15-29 Severely Decreased</content>
<content>Stage V GFR <15 Very Little GFR Left</content>
<content>ESRD GFR <15 on BUSINESS PLANNING MANAGER</content>
<content></content> Blood Urea Nitrogen 32 mg/dL 7-18 [facility] Creatinine For GFR 1.58 mg/dL 0.55-1.30 Above high [facility] Potassium Serum 5.9 meq/L 3.5-5.1 Above high normal [facility] ([facility]) Sodium Level 130 meq/L 136-145 Below low normal [facility] ([facility]) Chloride Level 100 meq/L 98-107 Normal (applies to non-numeric r esults) [facility] ([facility]) Carbon Dioxide Level 22 meq/L 21-32 Normal (applies to non-num eladio results) [facility] ([facility]) Anion Gap 8 meq/L 8-16 Normal (applies to non-numeric resul ts) [facility] ([facility]) Calcium Level 7.0 mg/dL 8.8-10.2 [facility] ([facility]) ID Date Data Source [id number] 10/27/2019 09:18:00 AM EST [facility] ([facility]) Name Value Range Interpretation Code Description Data Aby rce(s) Supporting Document(s) Laboratory test finding (navigational concept) 128 mg/dL 7 0-105 Above high normal [facility] ([facility]) Laboratory test finding (navigational concept) 124 meq/L 1 36-145 Below low normal [facility] ([facility]) Laboratory test finding (navigational concept) 46.0 % 3 8.0-51.0 Normal (applies to non-numeric results) [facility] ([facility]) Laboratory test finding (navigational concept) 4.1 mg/dL 4 .5-5.3 Below low normal [facility] ([facility]) Laboratory test finding (navigational concept) 5.5 meq/L 3 .5-5.1 Above high normal [facility] ([facility]) Laboratory test finding (navigational concept) 19.0 MM/L 2 3.0-27.0 Below low normal [facility] ([facility]) Laboratory test finding (navigational concept) 98 meq/L 9 8-109 Normal (applies to non-numeric results) [facility] ([facility]) Laboratory test finding (navigational concept) 33 mg/dL 8-26 Above high normal [facility] ([facility]) Laboratory test finding (navigational concept) 1.7 mg/dL 0 .6-1.3 Above high normal [facility] ([facility]) ID Date Data Source [id number] 10/27/2019 09:16:00 AM EST [facility] ([facility]) Name Value Range Interpretation Code Description Data Aby rce(s) Supporting Document(s) Glucose, Fasting 123 mg/dL 70-100 Above high normal [facility] ([facility]) Creatinine For GFR 1.74 mg/dL 0.55-1.30 Above high normal [facility] ([facility]) Glomerular Filtration Rate 31.2 Below low normal [facility] ([facility]) <content>Units are mL/min/1.73 m2</content>
<content></content>
<content>Chronic Kidney Disease Staging per NKF:</content>
<content></content>
<content>Stage I & II GFR >=60 Normal to Mildly Decreased</content>
<content>Stage III GFR 30- 59 Moderately Decreased</content>
<content>Stage IV GFR 15-29 Severely Decreased</content>
<content>Stage V GFR <15 Very Little GFR Left</content>
<content>ESRD GFR <15 on BUSINESS PLANNING MANAGER</content>
<content></content> Blood Urea Nitrogen 37 mg/dL 7-18 Above high normal [facility] ([facility]) Potassium Serum 5.4 meq/L 3.5-5.1 Above high normal [facility] ([facility]) This specimen has an elevated potassium level but there is NO visible hemolysis noted. Sodium Level 125 meq/L 136-145 Below low normal [facility] ([facility]) Chloride Level 96 meq/L 98-107 Below low normal [facility] ([facility]) Calcium Level 8.6 mg/dL 8.8-10.2 Below low normal [facility] ([facility]) Carbon Dioxide Level 18 meq/L 21-32 Below low normal [facility] ([facility]) Anion Gap 11 meq/L 8-16 Normal (applies to non-numeric resul ts) [facility] ([facility]) ID Date Data Source [id number] 10/27/2019 09:16:00 AM EST [facility] ([facility]) Name Value Range Interpretation Code Description Data Aby rce(s) Supporting Document(s) Magnesium [Mass/volume] in Serum or Plasma 5.5 mg/dL 1.8-2 .4 Above upper panic limits [facility] ([facility]) Lipase [Enzymatic activity/volume] in Serum or Plasma 31 U/L 73-393 Below low normal [facility] ([facility]) Lactate [Mass/volume] in Serum or Plasma 2.6 mmol/L 0.4-2.0 Above upper panic limits [facility] ([facility]) Y/N query for Sepsis Lactate Rule: Y ID Date Data Source [id number] 10/27/2019 09:16:00 AM EST [facility] ([facility]) Name Value Range Interpretation Code Description Data Aby rce(s) Supporting Document(s) Alt/SGPT 22 U/L 12-78 Normal (applies to non-numeric resul ts) [facility] ([facility]) Ast/Sgot 34 U/L 7-37 Normal (applies to non-numeric resul ts) [facility] ([facility]) Alkaline Phosphatase 72 U/L 45-117 Normal (applies to non-num eladio results) [facility] ([facility]) Bilirubin,Total 0.7 mg/dL 0.2-1.0 Normal (applies to non-numeric results) [facility] ([facility]) Total Protein 7.2 GM/DL 6.4-8.2 Normal (applies to non-numeric re sults) [facility] ([facility]) Albumin 3.4 GM/DL 3.2-5.2 Normal (applies to non-numeric resul ts) [facility] ([facility]) Bilirubin,Direct 0.2 mg/dL 0.0-0.2 Normal (applies to non-numeric results) [facility] ([facility]) Albumin/Globulin Ratio 0.89 1.00-1.93 Below low normal [facility] ([facility]) ID Date Data Source [id number] 10/27/2019 09:16:00 AM EST [facility] ([facility]) Name Value Range Interpretation Code Description Data Aby rce(s) Supporting Document(s) White Blood Count 25.0 10 4.0-10.0 Above high normal [facility] ([facility]) Red Blood Count 4.93 10 4.00-5.40 Normal (applies to non-numeric results) [facility] ([facility]) Mean Corpuscular Volume 88.6 fl 80.0-96.0 Normal ( applies to non-numeric results) [facility] ([facility]) Hemoglobin 14.5 g/dL 12.0-15.5 Normal (applies to non-numeric resul ts) [facility] ([facility]) Hematocrit 43.7 % 36.0-47.0 Normal (applies to non-numeric resul ts) [facility] ([facility]) Mean Corpuscular HGB Conc 33.2 g/dL 32.0-36.5 Normal (applies to non-numeric results) [facility] ([facility]) Mean Corpuscular Hemoglobin 29.4 pg 27.0-33.0 Norm al (applies to non-numeric results) [facility] ([facility]) Platelet Count, Automated 294 10 150-450 Normal (applies to non-numeric results) [facility] ([facility]) Red Cell Distribution Width 19.0 % 11.5-14.5 Above high normal [facility] ([facility]) Neutrophils % 91.8 % 36.0-66.0 Above high normal [facility] ([facility]) Eos % 0.0 % 0.0-3.0 Normal (applies to non-numeric resul ts) [facility] ([facility]) Woodruff % 2.8 % 0.0-5.0 Normal (applies to non-numeric resul ts) [facility] ([facility]) Lymph % 4.8 % 24.0-44.0 Below low normal [facility] ( [facility]) Immature Granulocyte % 0.4 % 0-3.0 Normal (applies to non-n umeric results) [facility] ([facility]) Baso % 0.2 % 0.0-1.0 Normal (applies to non-numeric resul ts) [facility] ([facility]) Neutrophils # 22.9 10 1.5-8.5 Above high normal [facility] ([facility]) Nucleated Red Blood Cell % 0.1 % 0-0 Above high normal [facility] ([facility]) Lymph # 1.2 10 1.5-5.0 Below low normal [facility] ( [facility]) Woodruff # 0.7 10 0.0-0.8 Normal (applies to non-numeric resul ts) [facility] ([facility]) Baso # 0.1 10 0.0-0.2 Normal (applies to non-numeric resul ts) [facility] ([facility]) Eos # 0.0 10 0.0-0.5 Normal (applies to non-numeric resul ts) [facility] ([facility]) Procedure Social History Code Duration Value Status Description Data Source(s ) Smoking 09/09/2020 12:00:00 AM EST Patient is a former smoker completed Patient is a former smoker [facility] ([facility] Smoking 09/08/2020 12:00:00 AM EST Patient is a former smoker completed Patient is a former smoker [facility]) Alcohol intake 02/18/2020 12:00:00 AM EDT Current non-d breanna of alcohol (finding) completed Current non-drinker of alcohol (finding) [facility] Cigarette pack-years 02/18/2020 12:00:00 AM EDT UNK completed [facility] Cigarettes smoked current (pack per day) - Reported 02/18/20 12:00:00 AM EDT UNK completed [facility] Smoking 02/18/2020 12:00:00 AM EDT Former smoker completed Former smoker [facility] Alcohol intake 11/05/2019 12:00:00 AM EDT Current non-d breanna of alcohol (finding) completed Current non-drinker of alcohol (finding) [facility] Cigarette pack-years 11/05/2019 12:00:00 AM EDT UNK [facility] Cigarettes smoked current (pack per day) - Reported 11/05/19 12:00:00 AM EDT UNK completed [facility] Smoking 11/05/2019 12:00:00 AM EDT Former smoker completed Former smoker [facility] Vital Signs ID Date Data Source UNK Name Value Range Interpretation Code Description Data Source(s) [place] body weight 100 [lb_av] 100 [lb_av] LEIGH T ([facility]) Oxygen saturation in Arterial blood by Pulse oximetry 98 % 98 % [facility] ([facility]) Body temperature 97.7 [degF] 97.7 [degF] [facility] ([facility]) Respiratory rate 14 /min 14 /min [facility] ( [facility]) Heart rate 93 /min 93 /min [facility] ([facility]) Body mass index (BMI) [Ratio] 24.2 kg/m2 24.2 k g/m2 [facility] ([facility]) Body weight 125.00 [lb_av] 125.00 [lb_av] MEDEN T ([facility]) Body height 60.2 [in_i] 60.2 [in_i] [facility] ([facility]) 5'0.20" Diastolic blood pressure 72 mm[Hg] 72 mm[Hg] [facility] ([facility]) Systolic blood pressure 133 mm[Hg] 133 mm[Hg] M EDENT ([facility]) [place] body weight 100 [lb_av] 100 [lb_av] MEDEN T ([facility]) Oxygen saturation in Arterial blood by Pulse oximetry 94 % 94 % [facility] ([facility]) Body temperature 98.5 [degF] 98.5 [degF] [facility] ([facility]) Respiratory rate 18 /min 18 /min [facility] ( [facility]) Heart rate 105 /min 105 /min [facility] ([facility]) Body mass index (BMI) [Ratio] 24.4 kg/m2 24.4 k g/m2 [facility] ([facility]) Body weight 126.00 [lb_av] 126.00 [lb_av] MEDEN T ([facility]) Body height 60.2 [in_i] 60.2 [in_i] [facility] ([facility]) 5'0.20" Diastolic blood pressure 74 mm[Hg] 74 mm[Hg] [facility] ([facility]) Systolic blood pressure 130 mm[Hg] 130 mm[Hg] [facility] ([facility]) Body temperature 96.2 [degF] 96.2 [degF] [facility] ([facility]) Body surface area Derived from formula 1.53 m2 1.53 m2 [facility] ([facility], ) Body weight 57.154 kg 57.154 kg [facility] ([facility], ) [place] body weight 100 [lb_av] 100 [lb_av] MEDEN T ([facility], ) Body mass index (BMI) [Ratio] 24.6 kg/m2 24.6 k g/m2 [facility] ([facility], ) Body weight 126.00 [lb_av] 126.00 [[facility]_av] [facility] Stated Body height 60 [in_i] 60 [in_i] [facility] ([facility], ) 5'0" Diastolic blood pressure 72 mm[Hg] 72 mm[Hg] [facility] ([facility], ) Systolic blood pressure 120 mm[Hg] 120 mm[Hg] [facility] ([facility], ) [place] body weight 100 [lb_av] 100 [lb_av] MEDEN T ([facility]) Oxygen saturation in Arterial blood by Pulse oximetry 99 % 99 % [facility] ([facility]) Body temperature 98.7 [degF] 98.7 [degF] [facility] ([facility]) Respiratory rate 20 /min 20 /min [facility] ( [facility]) Heart rate 87 /min 87 /min [facility] ([facility]) Body mass index (BMI) [Ratio] 24.6 kg/m2 24.6 k g/m2 [facility] ([facility]) Body weight 127.00 [lb_av] 127.00 [lb_av] MEDEN T ([facility]) Body height 60.2 [in_i] 60.2 [in_i] [facility] ([facility]) 5'0.20" Diastolic blood pressure 70 mm[Hg] 70 mm[Hg] [facility] ([facility]) Systolic blood pressure 136 mm[Hg] 136 mm[Hg] [facility] Diastolic blood pressure--sitting 81 mm[Hg] 81 mm[Hg] [facility] ([facility]) CBP, adult cuff/LA Systolic blood pressure--sitting 152 mm[Hg] 152 mm[Hg] [facility] ([facility]) CBP, adult cuff/LA Heart rate 87 /min 87 /min [facility] ([facility] Body mass index (BMI) [Ratio] 25.4 kg/m2 25.4 k g/m2 [facility] ([facility]) Body height 60 [in_i] 60 [in_i] [facility] ([facility] 5'0" Body weight 130.00 [lb_av] 130.00 [lb_av] MED[facility] T ([facility]) [place] body weight 100 [lb_av] 100 [lb_av] [facility] T ([facility]) Oxygen saturation in Arterial blood by Pulse oximetry 96 % 96 % [facility] ([facility]) Body temperature 97.4 [degF] 97.4 [degF] [facility] ([facility]) Respiratory rate 18 /min 18 /min [facility] ( [facility]) Heart rate 85 /min 85 /min [facility] ([facility]) Body height 60.2 [in_i] 60.2 [in_i] [facility] 5'0.20" Diastolic blood pressure 70 mm[Hg] 70 mm[Hg] [facility] ([facility]) Systolic blood pressure 124 mm[Hg] 124 mm[Hg] M EDENT ([facility]) [place] body weight 100 [lb_av] 100 [lb_av] [facility] T ([facility]) Oxygen saturation in Arterial blood by Pulse oximetry 93 % 93 % [facility] ([facility]) Body temperature 97.5 [degF] 97.5 [degF] [facility] ([facility]) Respiratory rate 18 /min 18 /min [facility] ( [facility]) Heart rate 91 /min 91 /min [facility] ([facility]) Body mass index (BMI) [Ratio] 25.5 kg/m2 25.5 k g/m2 [facility] ([facility]) Body weight 131.50 [lb_av] 131.50 [lb_av] [facility] T ([facility]) Body height 60.2 [in_i] 60.2 [in_i] [facility] ([facility]) 5'0.20" Diastolic blood pressure 76 mm[Hg] 76 mm[Hg] [facility] ([facility]) Systolic blood pressure 140 mm[Hg] 140 mm[Hg] M EDENT ([facility]) Body mass index (BMI) [Ratio] 19.0 kg/m2 19.0 k g/m2 [facility] ([facility]) Body weight 131.38 [lb_av] 131.38 [lb_av] [facility] T ([facility]) Body height 69.75 [in_i] 69.75 [in_i] [facility] ([facility]) 5'9.75" Body temperature 97.1 [degF] 97.1 [degF] [facility] ([facility]) Body surface area Derived from formula 1.56 m2 1.56 m2 [facility] (Health system) Body weight 59.422 kg 59.422 kg [facility] ([facility]) [place] body weight 100 [lb_av] 100 [lb_av] [facility] T (Health system) Body mass index (BMI) [Ratio] 25.6 kg/m2 25.6 k g/m2 [facility] (Health system) Body weight 131.00 [lb_av] 131.00 [lb_av] [facility] T (Health system) Body height 60 [in_i] 60 [in_i] [facility] ([facility]) 5'0" Oxygen saturation in Arterial blood by Pulse oximetry 91 % 91 % [facility] (Health system) 89 ra Heart rate 102 /min 102 /min [facility] ([facility]) Diastolic blood pressure 80 mm[Hg] 80 mm[Hg] [facility] (Health system) Systolic blood pressure 160 mm[Hg] 160 mm[Hg] [facility] (Health system) Body weight 60.896 kg 60.896 kg [facility] ([facility]) [place] body weight 100 [lb_av] 100 [lb_av] [facility] Body mass index (BMI) [Ratio] 26.2 kg/m2 26.2 k g/m2 [facility] (Health system) Body weight 134.25 [lb_av] 134.25 [lb_av] [facility] Body height 60 [in_i] 60 [in_i] [facility] ([facility]) 5'0" Diastolic blood pressure 60 mm[Hg] 60 mm[Hg] [facility] (Health system) Systolic blood pressure 135 mm[Hg] 135 mm[Hg] [facility] (Health system) [place] body weight 100 [lb_av] 100 [lb_av] [facility] ([facility]) Oxygen saturation in Arterial blood by Pulse oximetry 99 % 99 % [facility] ([facility]) Body temperature 98.3 [degF] 98.3 [degF] [facility] ([facility]) Respiratory rate 16 /min 16 /min [facility] Heart rate 97 /min 97 /min [facility] ([facility]) Body mass index (BMI) [Ratio] 25.4 kg/m2 25.4 k g/m2 [facility] ([facility]) Body weight 131.00 [lb_av] 131.00 [lb_av] [facility] T ([facility]) Body height 60.2 [in_i] 60.2 [in_i] [facility]) 5'0.20" Diastolic blood pressure 80 mm[Hg] 80 mm[Hg] [facility] ([facility]) Systolic blood pressure 138 mm[Hg] 138 mm[Hg] [facility]) [place] body weight 100 [lb_av] 100 [lb_av] [facility] T ([facility]) Oxygen saturation in Arterial blood by Pulse oximetry 99 % 99 % [facility] ([facility]) Body temperature 97.8 [degF] 97.8 [degF] [facility] Respiratory rate 16 /min 16 /min [facility] ( [facility]) Heart rate 87 /min 87 /min [facility] ([facility]) Body height 60.2 [in_i] 60.2 [in_i] [facility]) 5'0.20" Diastolic blood pressure 80 mm[Hg] 80 mm[Hg] [facility] ([facility]) Systolic blood pressure 122 mm[Hg] 122 mm[Hg] [facility] Body weight 59.875 kg 59.875 kg [facility] [place] body weight 100 [lb_av] 100 [lb_av] [facility] T ([facility], ) Body mass index (BMI) [Ratio] 25.8 kg/m2 25.8 k g/m2 [facility] ([facility], ) Body weight 132.00 [lb_av] 132.00 [lb_av] [facility] T ([facility], ) Body height 60 [in_i] 60 [in_i] [facility] ([facility], ) 5'0" Diastolic blood pressure 60 mm[Hg] 60 mm[Hg] [facility] ([facility], ) Systolic blood pressure 120 mm[Hg] 120 mm[Hg] M EDENT ([facility], ) Diastolic blood pressure--sitting 74 mm[Hg] 74 mm[Hg] [facility] ([facility]) CBP, adult cuff/Ra Systolic blood pressure--sitting 125 mm[Hg] 125 mm[Hg] [facility] ([facility]) CBP, adult cuff/Ra Heart rate 90 /min 90 /min [facility] ([facility]) Body mass index (BMI) [Ratio] 24.8 kg/m2 24.8 k g/m2 [facility] ([facility]) Body height 60 [in_i] 60 [in_i] [facility] 5'0" Body weight 127.00 [lb_av] 127.00 [lb_av] [facility] T ([facility]) [place] body weight 100 [lb_av] 100 [lb_av] [facility] T ([facility]) Oxygen saturation in Arterial blood by Pulse oximetry 96 % 96 % [facility] ([facility]) Body temperature 98.5 [degF] 98.5 [degF] [facility] ([facility]) Respiratory rate 20 /min 20 /min [facility] ( [facility]) Heart rate 99 /min 99 /min [facility] ([facility]) Body mass index (BMI) [Ratio] 23.1 kg/m2 23.1 k g/m2 [facility] ([facility]) Body weight 119.00 [lb_av] 119.00 [lb_av] [facility] T ([facility]) Body height 60.2 [in_i] 60.2 [in_i] [facility] ([facility]) 5'0.20" Diastolic blood pressure 76 mm[Hg] 76 mm[Hg] [facility] ([facility]) Systolic blood pressure 136 mm[Hg] 136 mm[Hg] [facility] [place] body weight 100 [lb_av] 100 [lb_av] [facility] ([facility]) Oxygen saturation in Arterial blood by Pulse oximetry 97 % 97 % [facility] ([facility]) Body temperature 98.5 [degF] 98.5 [degF] [facility] ([facility]) Respiratory rate 20 /min 20 /min [facility] ( [facility]) Heart rate 82 /min 82 /min [facility] ([facility]) Body mass index (BMI) [Ratio] 26.4 kg/m2 26.4 k g/m2 [facility] ([facility]) Body weight 136.12 [lb_av] 136.12 [lb_av] [facility] T ([facility]) Body height 60.2 [in_i] 60.2 [in_i] [facility] ([facility]) 5'0.20" Diastolic blood pressure 80 mm[Hg] 80 mm[Hg] [facility] Systolic blood pressure 118 mm[Hg] 118 mm[Hg] [facility]) Body mass index (BMI) [Ratio] 26.6 kg/m2 26.6 k g/m2 [facility] ([facility]) Body weight 137.00 [lb_av] 137.00 [lb_av] [facility] T ([facility]) Body height 60.2 [in_i] 60.2 [in_i] [facility] ([facility]) 5'0.20" Oxygen saturation in Arterial blood by Pulse oximetry 93 % 93 % [facility] ([facility]) Body temperature 99.0 [degF] 99.0 [degF] [facility] ([facility]) Heart rate 81 /min 81 /min [facility] ([facility]) Body mass index (BMI) [Ratio] 29.1 kg/m2 29.1 k g/m2 [facility] ([facility]) Body weight 150.00 [lb_av] 150.00 [lb_av] [facility] T ([facility]) Body height 60.2 [in_i] 60.2 [in_i] [facility] ([facility]) 5'0.20" Diastolic blood pressure 72 mm[Hg] 72 mm[Hg] [facility] ([facility]) Systolic blood pressure 118 mm[Hg] 118 mm[Hg] M EDENT ([facility]) Respiratory rate 20 /min 20 /min [facility] ( [facility]) Systolic blood pressure 132 mm[Hg] 132 mm[Hg] M [facility] ([facility]) Oxygen saturation in Arterial blood by Pulse oximetry 97 % 97 % [facility] ([facility]) Body temperature 99.2 [degF] 99.2 [degF] [facility] ([facility]) Respiratory rate 97 /min 97 /min [facility] ( [facility]) Heart rate 98 /min 98 /min [facility] ([facility]) Body mass index (BMI) [Ratio] 27.4 kg/m2 27.4 k g/m2 [facility] ([facility]) Body weight 141.38 [lb_av] 141.38 [lb_av] [facility] T ([facility]) Body height 60.2 [in_i] 60.2 [in_i] [facility] ([facility]) 5'0.20" Diastolic blood pressure 74 mm[Hg] 74 mm[Hg] [facility] ([facility]) Oxygen saturation in Arterial blood by Pulse oximetry 95 % 95 % [facility] ([facility]) Body temperature 99.0 [degF] 99.0 [degF] [facility] ([facility]) Respiratory rate 18 /min 18 /min [facility] ( [facility]) Heart rate 89 /min 89 /min [facility] ([facility]) Body mass index (BMI) [Ratio] 28.2 kg/m2 28.2 k g/m2 [facility] ([facility]) Body weight 145.38 [lb_av] 145.38 [lb_av] [facility] T ([facility]) Body height 60.2 [in_i] 60.2 [in_i] [facility] ([facility]) 5'0.20" Diastolic blood pressure 74 mm[Hg] 74 mm[Hg] [facility] ([facility]) Systolic blood pressure 130 mm[Hg] 130 mm[Hg] [facility] ([facility]) Body mass index (BMI) [Ratio] 28.1 kg/m2 28.1 k g/m2 [facility] (Health system) Body weight 144.00 [lb_av] 144.00 [lb_av] [facility] T ([facility], ) Body height 60 [in_i] 60 [in_i] [facility] ([facility]) 5'0" Oxygen saturation in Arterial blood by Pulse oximetry 97 % 97 % [facility] (Health system) Room Air Heart rate 98 /min 98 /min [facility] ([facility]) Diastolic blood pressure 70 mm[Hg] 70 mm[Hg] [facility] (Health system) Systolic blood pressure 122 mm[Hg] 122 mm[Hg] [facility] (Health system) Body weight 65.318 kg 65.318 kg [facility] ([facility]) [place] body weight 100 [lb_av] 100 [lb_av] [facility] T (Health system) Diastolic blood pressure--sitting 80 mm[Hg] 80 mm[Hg] [facility]) CBP adult cuff, Ra Systolic blood pressure--sitting 132 mm[Hg] 132 mm[Hg] [facility] ([facility]) CBP adult cuff, Ra Heart rate 79 /min 79 /min [facility] ([facility] Body mass index (BMI) [Ratio] 28.3 kg/m2 28.3 k g/m2 [facility] ([facility]) Body height 60 [in_i] 60 [in_i] [facility] ([facility]) 5'0" Body weight 145.00 [lb_av] 145.00 [lb_av] [facility] T ([facility]) ID Date Data Source [id number] 06/11/2020 04:54:52 PM [facility] Hospital Name Value Range Interpretation Code Description Data Source(s) WEIGHT RECORDED 140 lb 140 lb [facility] Body height Measured 60 in 60 in [facility] WEIGHT RECORDED 140 lb 140 lb [facility] Body height Measured 60 in 60 in [facility] ID Date Data Source [id number] 11/06/2019 09:53:38 AM [facility] Name Value Range Interpretation Code Description Data Source(s) WEIGHT RECORDED 139 lb 139 lb [facility] Body height Measured 60 in 60 in [facility] Patient Treatment Plan of Care Planned Activity Planned Date Details Description Data Source (s) maalox/lidocaine/diphenhydrAMINE 1:1:1 SWISH & SWAL or al suspension 10/23/2019 12:00:00 AM [facility] ospital Folic Acid 1 MG Oral Tablet 06/19/2019 12:00:00 AM [facility] Folic Acid 1 MG Oral Tablet 03/27/2019 12:00:00 AM [facility]
[2020-10-17 17:15] VITALS: BP 124/67
[2020-10-17 17:43] VITALS: BP 122/60
[2020-10-17 18:15] VITALS: BP 116/62
[2020-10-17] MEDS ORDERED: SLF 3 ML SYR IV PRN (18:30)
[2020-10-17 20:00] VITALS: BP 124/58
--- NOTE | 2020-10-17 20:34 | ECGEPIP ---
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
[2020-10-17] MEDS ORDERED: DULoxetine 30 MG CAP (CYMBALTA) PO SCH (21:00)
[2020-10-17] MEDS ORDERED: CelecoXIB (CeleBREX) 100 MG CAP PO PRN (21:00)
[2020-10-17] MEDS ORDERED: zolPIDEM TARTRATE 5 MG TAB PO PRN (21:00)
[2020-10-17] MEDS ORDERED: ROSUVASTATIN 10 MG TAB (CRESTOR) PO SCH (21:00)
[2020-10-17] MEDS: ASCORBIC ACID 250 MG TAB PO SCH (21:08)
[2020-10-17] MEDS: DOCUSATE SODIUM 100MG CAPSULE PO SCH (21:08)
[2020-10-17] MEDS: GABAPENTIN 300 MG CAP PO SCH (21:09)
[2020-10-17] MEDS: OMEPRAZOLE 20 MG CAP PO SCH (21:09)
[2020-10-17] MEDS: SLF 3 ML SYR IV SCH (21:11)
[2020-10-18] VITALS: BP 132/60
[2020-10-18 04:00] VITALS: BP 128/64
[2020-10-18] MEDS: SLF 3 ML SYR IV SCH ×2 (05:09→09:02)
[2020-10-18 07:36] VITALS: BP 146/65
--- NOTE | 2020-10-18 08:51 | REP ---
INDICATION: May be off telemetry for ransfer to radiology fo CXR. COMPARISON: AP portable 10/17/2020 TECHNIQUE: AP lateral seated chest FINDINGS: Pacer unit over the left upper chest with skin marshall in leads terminating in the right atrium and ventricle. Some linear fibrotic change right mid lung zone again noted. Minor subsegmental atelectatic change perihilar regions bilaterally. There is no pleural effusion, dense consolidation or parenchymal mass. No visible nodule nor of left pneumothorax. Heart not grossly enlarged. The aorta is calcified at the arch mildly tortuous but without aneurysm airway intact no widening of the mediastinum. The bones are unchanged without acute finding. No free air under the diaphragm. IMPRESSION: Dual lead pacer unchanged with no evidence of left-sided effusion or pneumothorax. No cardiomegaly, edema, parenchymal nodule/mass or acute infiltrate. Some lessening of the subsegmental atelectatic change perihilar regions and some right infrahilar linear atelectatic change or scar. <Electronically signed by Fabrice Singh > 10/18/20 0040
[2020-10-18] MEDS ORDERED: DULoxetine 30 MG CAP (CYMBALTA) PO SCH (09:00)
[2020-10-18] MEDS ORDERED: FOLIC ACID 1 MG TAB PO SCH (09:00)
[2020-10-18] MEDS ORDERED: MULTIVITAMINS/MINERALS THERAP 1 TAB PO SCH (09:00)
[2020-10-18] MEDS ORDERED: VITAMIN D 1,000 INTERNATIONAL UNITS TABLET PO SCH (09:00)
[2020-10-18] MEDS ORDERED: AMIODARONE 200 MG TAB (PACERONE) PO SCH (09:00)
[2020-10-18] MEDS ORDERED: TOLTERODINE TARTRATE 2 MG LA CAP (DETROL LA) PO SCH (09:00)
[2020-10-18] MEDS ORDERED: buPROPion **XL** TABLET 150MG (WELLBUTRIN XL) PO SCH (09:00)
[2020-10-18] MEDS ORDERED: ASPIRIN 81 MG ENTERIC TAB PO SCH (09:00)
[2020-10-18] MEDS ORDERED: CO-ENZYME Q10 50 MG CAP PO SCH (09:00)
[2020-10-18] MEDS ORDERED: amLODIPine 5 MG TAB PO SCH (09:00)
[2020-10-18 09:01] VITALS: BP 146/65
[2020-10-18] MEDS: GABAPENTIN 300 MG CAP PO SCH (09:02)
[2020-10-18] MEDS: DOCUSATE SODIUM 100MG CAPSULE PO SCH (09:02)
[2020-10-18] MEDS: OMEPRAZOLE 20 MG CAP PO SCH (09:02)
[2020-10-18] MEDS: ASCORBIC ACID 250 MG TAB PO SCH (09:02)
[2020-10-18 12:00] VITALS: BP 121/58
--- NOTE | 2020-10-20 09:19 | RO ---
OPERATIVE NOTE DATE OF OPERATION: 10/17/2020 PREOPERATIVE DIAGNOSIS: 1. Sick sinus syndrome/tachycardia-bradycardia syndrome. 2. Subcutaneous cardiac rhythm monitor in situ. POSTOPERATIVE DIAGNOSIS: 1. Sick sinus syndrome/tachycardia-bradycardia syndrome. 2. Subcutaneous cardiac rhythm monitor in situ. FINDINGS: 1. Sick sinus syndrome/tachycardia-bradycardia syndrome. 2. Subcutaneous cardiac rhythm monitor in situ. PROCEDURE: Implantation of a Medtronic dual-chamber pacemaker. Removal of a Medtronic subcutaneous cardiac rhythm monitor. SURGEON: Chau Schulte M.D. PROFESSIONAL DRIVER: None. ANESTHESIA: Lidocaine 1% local/monitored anesthetic care. SPECIMENS: Medtronic subcutaneous cardiac rhythm monitor LINQ Model LNQ11 with Serial #[id number]; originally implanted 09/02/2020. ESTIMATED BLOOD LOSS: Less than 10 mL. BLOOD PRODUCTS: None replaced. DRAINS: None. COMPLICATIONS: None. DESCRIPTION OF PROCEDURE: The patient was prepped and draped over the left anterior chest. Lidocaine 1% was used for local anesthetic. A left subclavian venogram was performed using 20 mL of a solution consisting of five parts to one of Isovue/normal saline. This was injected via a peripheral vein in the left upper extremity and this was used on real-time under fluoroscopy to obtain percutaneous venous access of the micropuncture needle into the extrathoracic portion of the left subclavian vein. This was then guidewire exchanged for a guidewire that came with one of the 7 [place] sheaths. Next, an incision was made approximately 2.5 inches in length 1 cm below the entry site of the guidewire into the skin and proximal and parallel to the left clavicle using a PEAK plasma blade. The PEAK plasma blade was used to get through the fatty layer into the fibrous Samantha's tissue. The pacemaker pocket was then performed in a caudal direction using blunt dissection, using two fingers to separate the Samantha's fascia from the prepectoral fascia. Next, the guidewire was pulled through the skin into the incision line. Next, I used a brand new micropuncture needle and placed the needle in the pacemaker incision about 1.5 cm lateral to the first guidewire at the level of the pectoral muscle and using fluoroscopy, I was able to get into the left subclavian vein at a separate site. This was then guidewire exchanged for a guidewire that came with the other 7 Mauritanian sheath. A 7 Mauritanian sheath introducer was applied over the more lateral of the guidewire and was used for vein access for the right ventricle lead. The right ventricle lead was placed under fluoroscopic guidance into the right ventricle apex region where it was secured with a total of 10 turns. This was positioned electronically and anatomically satisfactory and no diaphragmatic stimulation could be palpated on either side at 10 volt high output pacing.The ventricle lead was then secured to the pectoral muscle using the supplied tie down safeties and two individual sutures consisting of 0-Vicryl. Next, the other 7 Mauritanian sheath with introducer was placed over the more medial of guidewires and was used for vein access for the right ventricle lead. The right ventricle lead was secured into the right atrial appendage position with the assistance of a preformed white J-stylet where it was secured with a total of 10 turns. This position was found to be electrically and anatomically satisfactory. The sheath was removed and the right atrial lead was secured to the pectoral muscle with the supplied tie down safeties and two individual sutures consisting of 0-Ethibond. Next, another 0-Ethibond suture was placed to the pectoral muscle to serve as the tie down for the pacemaker pulse generator. The terminal pins of each pacemaker lead were then placed into their respective ports in the header of the pacemaker pulse generator and each one was secured by tightening the set screws using the hex screwdriver. A pull test was applied to each lead to demonstrate that it was secure in the header. The excess lead material was then coiled under the pacemaker pulse generator and placed into the pacemaker pocket along with the pacemaker pulse generator with the excess lead material below and the pacemaker pulse generator on top. The pulse generator was then secured with the previously placed 0-Ethibond suture and secured to the pectoral muscle. The deep layer was closed using individual sutures consisting of 2-0 Vicryl. Some additional 3-0 Vicryl sutures were used to help approximate the more superficial layer. [place] were used to close the incision. The incision line was dressed with Bactroban followed by Telfa followed by a Tegaderm dressing. Attention was turned to removal of the implantable loop recorder. Lidocaine was applied. An incision using a 15 blade was made through the existing incision. A snap was used to grab the end of the loop recorder to pull it out of the pocket. The skin was then approximated temporarily with a 4-0 Biosyn suture. Two layers of Dermabond was applied. The Biosyn suture was then pulled through the incision line and removed entirely. The patient tolerated these procedures well without any immediate complications. The pacemaker pulse generator implanted was a Medtronic Model W1DR01 [place] XT DR BETY Reyes, which had Serial #[id number]. The right ventricle lead implanted was Medtronic Model 4076-52 cm with Serial #[id number]. Testing of the right ventricle lead in bipolar configuration in the operating room with the pulse analyzer showed capture threshold of 1.0 volts at 0.4 msec with lead impedance of 1102 ohms and R-wave amplitude of 15.2 mV. Device pace testing in the operating room of the right ventricle each showed R-wave amplitude of 13.0 mV, lead impedance 798 ohms, and capture threshold of 0.5 volts at 0.4 msec. The right atrial lead implanted was a Medtronic Model 4076-45 cm with Serial #[id number]. Testing in bipolar configuration with the pulse analyzer in the operating room for the right atrial lead showed capture threshold of 1.6 volts at 0.4 msec with lead impedance of 380 ohms and P-wave amplitude of 1.4 mV. Device pace testing in the operating room for the right atrial lead showed a capture threshold of 0.75 volts at 0.4 msec with lead impedance of 399 ohms and P-wave amplitude of 1.4 mV.
[2020-10-21] MEDS ORDERED: APIXABAN 5 MG TAB (ELIQUIS) PO SCH (09:00)
== END 2020-10-18 15:26 | disposition home or self-care (01) ==
LOC: M SDC 11:46 → M PCU 17:04 → UNDOADMIN 17:04 → UNDODISIN 10-18 15:26 → M SDC 10-18 15:26
PROVIDERS: ATTEND Internal Medicine Cardiovascular Disease
DX: I49.5 Sick sinus syndrome (principal); I35.2 Nonrheumatic aortic (valve) stenosis with insufficiency; I10 Essential (primary) hypertension; E78.5 Hyperlipidemia, unspecified; K21.9 Gastro-esophageal reflux disease without esophagitis; D64.9 Anemia, unspecified; M81.0 Age-related osteoporosis without current pathological fracture; M79.7 Fibromyalgia; J44.9 Chronic obstructive pulmonary disease, unspecified; Z88.0 Allergy status to penicillin; Z88.1 Allergy status to other antibiotic agents; Z88.8 Allergy status to other drugs, medicaments and biological substances; F32.9 Major depressive disorder, single episode, unspecified; Z79.899 Other long term (current) drug therapy; F17.290 Nicotine dependence, other tobacco product, uncomplicated; Z79.01 Long term (current) use of anticoagulants; Z79.82 Long term (current) use of aspirin
CPT/HCPCS: 33208; 33286; 71045; 71046; 76000; 93005; C1769; C1785; C1898; J2250; J2405; J3010; J3370; Q9967

== ENCOUNTER → 2020-12-02 | Outpatient (CLI) | payer MEDICARE, OTHER ==
[~2020-12-02] MED LIST changes: +CARV6.25 PO; +CYCL5TAB PO; -LR 1,000 ML IV ONE; -NS 1,000 ML IV SCH; -VANCOMYCIN HCL 1,000 MG, VIAL MATE ADAPTER 1 EACH in D5W 250 ML IV ONE
[2020-12-02 18:01] LABS: BASO % 0.4 % (0.0-1.0); EOS # 0.6 10^3/uL (0.0-0.5); EOS % 5.4 % (0.0-3.0); HEMATOCRIT 32.4 % (36.0-47.0); HEMOGLOBIN 10.5 g/dl (12.0-15.5); LYMPH # 2.1 10^3/uL (1.5-5.0); LYMPH % 20.1 % (24.0-44.0); MEAN CORPUSCULAR HEMOGLOBIN 30.8 pg (27.0-33.0); MEAN CORPUSCULAR HGB CONC 32.4 g/dl (32.0-36.5); MONO # 0.9 10^3/uL (0.0-0.8); MONO % 8.8 % (2.0-8.0); NEUTROPHILS # 6.7 10^3/uL (1.5-8.5); NEUTROPHILS % 64.8 % (36.0-66.0); PLATELET COUNT, AUTOMATED 227 10^3/uL (150-450); RED BLOOD COUNT 3.41 10^6/uL (4.00-5.40); WHITE BLOOD COUNT 10.3 10^3/uL (4.0-10.0)
--- NOTE | 2020-12-02 18:37 | REPPI ---
INDICATION: R05 COUGH. COMPARISON: 06/14/2020, 10/17/2020 and 10/18/2020 TECHNIQUE: Upright PA and lateral chest. FINDINGS: The lung narayan are clear. Cardiac size is normal. The lynn, mediastinum and skeletal structures are unremarkable. There is minor chronic linear parenchymal scarring superimposed over the right hilus, unchanged. There is a dual chamber pacemaker, unchanged. There is a cervical spine stabilization plate, unchanged. IMPRESSION: Essentially negative PA and lateral chest There is no significant interval change. <Electronically signed by Aston Pereira > 12/02/20 [id number]
[2020-12-02 18:42] LABS: ALBUMIN 3.4 GM/DL (3.2-5.2); ALT/SGPT 18 U/L (12-78); BILIRUBIN,TOTAL 0.2 MG/DL (0.2-1.0); BLOOD UREA NITROGEN 9 MG/DL (7-18); CALCIUM LEVEL 8.4 MG/DL (8.8-10.2); CARBON DIOXIDE LEVEL 27 MEQ/L (21-32); CHLORIDE LEVEL 89 MEQ/L (98-107); CHOLESTEROL LEVEL 123 MG/DL (<200); CHOLESTEROL RISK RATIO 1.835 (<5); CREATININE FOR GFR 0.83 MG/DL (0.55-1.30); FREE T4 1.13 NG/DL (0.76-1.46); GLOMERULAR FILTRATION RATE > 60.0 (>45); GLUCOSE, FASTING 74 MG/DL (70-100); HDL CHOLESTEROL 67 MG/DL (>40); LDL CHOLESTEROL 17 MG/DL (<100); NON-HDL-C 56 MG/DL; SODIUM LEVEL 120 MEQ/L (136-145); TOTAL PROTEIN 6.1 GM/DL (6.4-8.2); TRIGLYCERIDES LEVEL 195 MG/DL (<150)
== END ==
LOC: M PLAIMG 15:42
PROVIDERS: ATTEND Physician Assistant
DX: R05 Cough (principal); I10 Essential (primary) hypertension; I48.91 Unspecified atrial fibrillation; E78.00 Pure hypercholesterolemia, unspecified; J44.9 Chronic obstructive pulmonary disease, unspecified

== ENCOUNTER 2020-12-03 09:24 | Emergency (ER) | payer MEDICARE, OTHER ==
[~2020-12-03] VITALS: Ht 152.4 cm; Wt 58.2 kg
[2020-12-03 11:43] LABS: BASO # 0.1 10^3/uL (0.0-0.2); BASO % 0.8 % (0.0-1.0); EOS # 0.3 10^3/uL (0.0-0.5); EOS % 5.1 % (0.0-3.0); HEMATOCRIT 34.4 % (36.0-47.0); HEMOGLOBIN 11.2 g/dl (12.0-15.5); LYMPH # 0.8 10^3/uL (1.5-5.0); MEAN CORPUSCULAR HEMOGLOBIN 30.9 pg (27.0-33.0); MEAN CORPUSCULAR HGB CONC 32.6 g/dl (32.0-36.5); MEAN CORPUSCULAR VOLUME 94.8 fl (80.0-96.0); MONO # 0.5 10^3/uL (0.0-0.8); MONO % 8.5 % (2.0-8.0); NEUTROPHILS # 4.6 10^3/uL (1.5-8.5); NEUTROPHILS % 71.8 % (36.0-66.0); PLATELET COUNT, AUTOMATED 196 10^3/uL (150-450); RED BLOOD COUNT 3.63 10^6/uL (4.00-5.40); WHITE BLOOD COUNT 6.3 10^3/uL (4.0-10.0)
[2020-12-03 12:11] LABS: ALBUMIN 3.4 GM/DL (3.2-5.2); ALT/SGPT 18 U/L (12-78); BILIRUBIN,DIRECT < 0.1 MG/DL (0.0-0.2); BILIRUBIN,TOTAL 0.2 MG/DL (0.2-1.0); BLOOD UREA NITROGEN 9 MG/DL (7-18); CALCIUM LEVEL 8.8 MG/DL (8.8-10.2); CARBON DIOXIDE LEVEL 31 MEQ/L (21-32); CHLORIDE LEVEL 97 MEQ/L (98-107); CREATININE FOR GFR 0.84 MG/DL (0.55-1.30); GLOMERULAR FILTRATION RATE > 60.0 (>45); GLUCOSE, FASTING 105 MG/DL (70-100); POTASSIUM SERUM 4.1 MEQ/L (3.5-5.1); SODIUM LEVEL 131 MEQ/L (136-145); TOTAL PROTEIN 6.1 GM/DL (6.4-8.2)
[2020-12-03 13:39] VITALS: BP 147/66
== END 2020-12-03 13:39 | disposition home or self-care (01) ==
LOC: M ED 09:24
DX: E87.1 Hypo-osmolality and hyponatremia (principal); K21.9 Gastro-esophageal reflux disease without esophagitis; M32.9 Systemic lupus erythematosus, unspecified; I27.20 Pulmonary hypertension, unspecified; Z79.899 Other long term (current) drug therapy; Z79.82 Long term (current) use of aspirin; Z79.01 Long term (current) use of anticoagulants; Z88.0 Allergy status to penicillin; Z88.1 Allergy status to other antibiotic agents; Z88.8 Allergy status to other drugs, medicaments and biological substances

== ENCOUNTER → 2020-12-04 | Outpatient (REF) | payer MEDICARE, OTHER ==
[2020-12-04 18:15] LABS: BLOOD UREA NITROGEN 8 MG/DL (7-18); CALCIUM LEVEL 8.6 MG/DL (8.8-10.2); CARBON DIOXIDE LEVEL 32 MEQ/L (21-32); CHLORIDE LEVEL 103 MEQ/L (98-107); GLOMERULAR FILTRATION RATE > 60.0 (>45); GLUCOSE, FASTING 114 MG/DL (70-100); POTASSIUM SERUM 4.1 MEQ/L (3.5-5.1); SODIUM LEVEL 138 MEQ/L (136-145)
== END ==
LOC: M LAB REF 16:56
PROVIDERS: ATTEND Emergency Medicine
DX: E87.1 Hypo-osmolality and hyponatremia (principal)

== ENCOUNTER → 2020-12-12 | Outpatient (CLI) | payer MEDICARE, OTHER ==
[2020-12-12 17:54] LABS: CALCIUM LEVEL 9.1 MG/DL (8.8-10.2); CREATININE FOR GFR 1.02 MG/DL (0.55-1.30); GLOMERULAR FILTRATION RATE 57.5 (>45); POTASSIUM SERUM 4.7 MEQ/L (3.5-5.1)
== END ==
LOC: M PLALAB 15:18
PROVIDERS: ATTEND Physician Assistant
DX: E87.1 Hypo-osmolality and hyponatremia (principal)

== ENCOUNTER → 2020-12-18 | Outpatient (CLI) | payer MEDICARE, OTHER ==
[2020-12-18 16:02] LABS: BLOOD UREA NITROGEN 9 MG/DL (7-18); CREATININE FOR GFR 0.78 MG/DL (0.55-1.30); GLOMERULAR FILTRATION RATE > 60.0 (>45)
== END ==
LOC: M LAB 14:10
PROVIDERS: ATTEND Surgery
DX: R10.9 Unspecified abdominal pain (principal)

== ENCOUNTER → 2020-12-19 | Outpatient (CLI) | payer MEDICARE, OTHER ==
[~2020-12-19] MED LIST changes: +GASTROGRAFIN SOLUTION 30ML (Q9963) As Ordered ONE; +ISOVUE-370 76% 100ML VIAL As Ordered ONE
--- NOTE | 2020-12-19 10:05 | REP ---
INDICATION: LEFT LOWER QUADRANT PAIN. COMPARISON: 07/05/2020 TECHNIQUE: Axial contrast-enhanced images from the lung bases to the pubic symphysis using oral and 100 cc Isovue 370 intravenous contrast material. Precontrast images of the abdomen obtained along with coronal and sagittal reformations. This CT examination was performed using the following dose reduction techniques: Automated exposure control, adjustment of mA and/or kv according to the patient's size, and the use of iterative reconstruction technique. FINDINGS: Liver, spleen, pancreas, bilateral adrenal glands and kidneys are normal. Patient is status post cholecystectomy with compensatory biliary ductal dilatation. The patient is again noted to be status post colectomy with residual normal appearing Ragini's pouch in the pelvis and ileostomy via the right anterior abdominal wall. There is no evidence for bowel obstruction. There is however a large and increased peristomal hernia containing multiple loops of nonobstructed bowel. Pelvis demonstrates normal bladder and prior hysterectomy. No ascites. No free air. No intraperitoneal or retroperitoneal adenopathy. There is a appears to be a chronic focal infrarenal saccular abdominal aneurysm measuring approximately 3.2 cm maximal diameter with small amount of mural thrombus. IMPRESSION: 1. Evidence for prior colectomy and ileostomy with increased size to the peristomal hernia containing mesenteric fat and multiple loops of nonobstructed bowel. Normal appearing Ragini's pouch in the pelvis. No bowel obstruction or acute inflammatory process. 2. Stable chronic focal infrarenal abdominal aneurysm. 3. No acute abdominopelvic pathology otherwise appreciated. <Electronically signed by Ez Hurd > 12/19/20 100
== END ==
LOC: M RAD 07:10
PROVIDERS: ATTEND Surgery
DX: R10.9 Unspecified abdominal pain (principal)
CPT/HCPCS: 74178; Q9963; Q9967

== ENCOUNTER → 2020-12-26 | Outpatient (CLI) | payer MEDICARE, OTHER ==
[~2020-12-26] MED LIST changes: -GASTROGRAFIN SOLUTION 30ML (Q9963) As Ordered ONE; -ISOVUE-370 76% 100ML VIAL As Ordered ONE
--- NOTE | 2020-12-26 15:17 | REPMRS ---
Patient History Family history of pancreatic cancer at age 66 in mother. Took hormonal contraceptives for 4 years. Benign left breast biopsy. Patient states no breast complaints today. Patient has signed MRS History Sheet. Digital Woman Screen Mammo: December 26, 2020 - Exam #: [id number] Bilateral CC and MLO view(s) were taken. Technologist: RT Iker Prior study comparison: July 23, 2019, bilateral digital mammo screening bilat, performed at [facility]. June 29, 2018, bilateral digital mammo screening bilat, performed at [facility]. FINDINGS: There are scattered fibroglandular densities. Screening. Digital screening (2D) mammography was performed bilaterally in the CC and MLO projections. Additionally, breast tomosynthesis (3D mammography) was performed bilaterally in the CC and MLO projections. Todays exam was compared to the prior exams(s). By history, the patient has no complaints of a palpable breast abnormality or other significant breast complaints. The breasts are unchanged in size and shape. There are no genaro-soft tissue densities or spiculated masses. There is no internal architectural distortion.Once again, stable benign appearing calcifications are seen. There are no suspicious genaro-calcific clusters. Skin thickening or nipple retraction is not present. IMPRESSION: BI-RADS Category 2- Benign Findings(s). There is no evidence of malignant alteration of the breasts. Followup examination recommended in one year. The Volpara volumetric breast density category is B, there are scattered areas of fibroglandular density. This mammogram was read with the assistance of [facility] [employer],an FDA approved computer aided detection system for mammography. The lifetime Tyrer-Cuzick score is 6.1 % Negative x-ray reports should not delay surgical consultation if a dominant or clinically suspicious mass is present. Not all breast cancers can be identified by mammography. Therefore, we recommend that you continue to perform regular breast self-examination and physical examination and then promptly contact your physician of any concerns or changes. Adenosis and dense breasts may obscure an underlying neoplasm. Assessment: BI-RADS/ACR category 2 mammogram. Benign Findings. Recommendation Routine screening mammogram of both breasts in 1 year. Electronically Signed By: Sam Marcano DO 12/26/20 [id number]
--- NOTE | 2020-12-26 15:39 | DEXAMM ---
INDICATION: SCREENING MAMMO/DISORDER OF BONE/M85.80- MAMMO FIRST. COMPARISON: Comparison DEXA studies are dated July 23, 2019 and November 08, 2008.. TECHNIQUE: Bone density was measured using dual-energy x-ray absorptionmetry (DEXA). FINDINGS: AP SPINE L1-L4 BMD 0.839 g/cm2 Young Adult T-Score -2.9 Age Matched Z-Score -1.2. LT FEMUR, TOTAL BMD 0.738 g/cm2 Young Adult T-Score -2.1 Age Matched Z-Score -0.8. LT NECK BMD 0.640 g/cm2 Young Adult T-Score -2.9 Age Matched Z-Score -1.3. RT FEMUR, TOTAL BMD 0.735 g/cm2 Young Adult T-Score -2.2 Age Matched Z-Score -0.8. RT NECK BMD 0.672 g/cm2 Young Adult T-Score -3.0 Age Matched Z-Score -1.4. IMPRESSION: There is osteoporosis of the spine. There is osteoporosis of the left hip. There is osteoporosis of the right hip. The density of the spine has decreased 2.9% since the initial exam on November 08, 2008. The density of the spine decreased 2.6% since most recent exam on July 23, 2019. The density of the left hip has decreased 9.7% since initial exam on November 08, 2008. The density of the left hip has increased 2.9% since most recent exam on July 23, 2019. The density of the right hip has decreased 11.1% since the initial exam on November 08, 2008. The density of the right hip has decreased 3.7% since the most recent exam on July 23, 2019. FOLLOW-UP: Recommendation for the next bone density exam: 2 years. <Electronically signed by Delfino Cruz > 12/26/20 [id number]
== END ==
LOC: M WHC 13:59
PROVIDERS: ATTEND Family Medicine
DX: Z12.31 Encounter for screening mammogram for malignant neoplasm of breast (principal); M81.0 Age-related osteoporosis without current pathological fracture

== ENCOUNTER → 2020-12-26 | Outpatient (CLI) | payer MEDICARE, OTHER ==
[2020-12-26 17:34] LABS: CALCIUM LEVEL 8.9 MG/DL (8.8-10.2); CREATININE FOR GFR 1.01 MG/DL (0.55-1.30); GLOMERULAR FILTRATION RATE 58.2 (>45); POTASSIUM SERUM 4.5 MEQ/L (3.5-5.1)
== END ==
LOC: M PLALAB 14:58
PROVIDERS: ATTEND Family Medicine
DX: E87.1 Hypo-osmolality and hyponatremia (principal); Z12.31 Encounter for screening mammogram for malignant neoplasm of breast; M81.0 Age-related osteoporosis without current pathological fracture

== ENCOUNTER → 2021-01-27 | Outpatient (CLI) | payer MEDICARE, OTHER ==
[~2021-01-27] MED LIST changes: +CYCL-707 PO; +FER-15DR PO; +FLUT11IN INH; +GLUC1TAB58 PO; +LORA-243 PO; +MORP-69 PO; +NARC1SPR NARES; +ONDA8TAB10 PO; +[UNRECOGNIZED DRUG - CODE] PO
--- NOTE | 2021-01-27 12:46 | REPPI ---
INDICATION: GENERALIZED ABD PAIN R10.84. COMPARISON: None. TECHNIQUE: Supine upright views of the abdomen and pelvis. FINDINGS: Postsurgical changes including colostomy. No evidence for bowel obstruction or perforation. Skeletal structures demonstrate age-related degenerative changes. IMPRESSION: No evidence for bowel obstruction or perforation. <Electronically signed by Ez Hurd > 01/27/21 [id number]
[2021-01-27 13:22] LABS: BASO % 0.3 % (0.0-1.0); EOS # 0.2 10^3/uL (0.0-0.5); EOS % 1.5 % (0.0-3.0); HEMOGLOBIN 12.2 g/dl (12.0-15.5); LYMPH # 1.5 10^3/uL (1.5-5.0); LYMPH % 13.3 % (24.0-44.0); MEAN CORPUSCULAR HEMOGLOBIN 29.7 pg (27.0-33.0); MEAN CORPUSCULAR HGB CONC 31.3 g/dl (32.0-36.5); MEAN CORPUSCULAR VOLUME 94.9 fl (80.0-96.0); MONO # 0.8 10^3/uL (0.0-0.8); MONO % 6.7 % (2.0-8.0); NEUTROPHILS % 77.7 % (36.0-66.0); PLATELET COUNT, AUTOMATED 294 10^3/uL (150-450); RED BLOOD COUNT 4.11 10^6/uL (4.00-5.40); WHITE BLOOD COUNT 11.6 10^3/uL (4.0-10.0)
[2021-01-27 13:54] LABS: ALBUMIN 3.1 GM/DL (3.2-5.2); ALT/SGPT 11 U/L (12-78); BILIRUBIN,DIRECT 0.1 MG/DL (0.0-0.2); BILIRUBIN,TOTAL 0.3 MG/DL (0.2-1.0); BLOOD UREA NITROGEN 8 MG/DL (7-18); C REACTIVE PROTEIN QUANTITATIV 9.93 MG/DL (0.00-0.30); CALCIUM LEVEL 9.2 MG/DL (8.8-10.2); CARBON DIOXIDE LEVEL 31 MEQ/L (21-32); CHLORIDE LEVEL 92 MEQ/L (98-107); CREATININE FOR GFR 0.91 MG/DL (0.55-1.30); GLOMERULAR FILTRATION RATE > 60.0 (>45); GLUCOSE, FASTING 101 MG/DL (70-100); LIPASE 31 U/L (73-393); POTASSIUM SERUM 4.7 MEQ/L (3.5-5.1); SODIUM LEVEL 128 MEQ/L (136-145); TOTAL PROTEIN 6.4 GM/DL (6.4-8.2)
== END ==
LOC: M PLAIMG 11:51
PROVIDERS: ATTEND Physician Assistant
DX: R10.84 Generalized abdominal pain (principal)

== ENCOUNTER 2021-01-28 14:40 | Inpatient (IN) | payer MEDICARE, OTHER ==
[~2021-01-28] VITALS: Ht 154.9 cm; Wt 55.7 kg
[~2021-01-28 14:40] MED LIST changes: -CYCL-707 PO; -FER-15DR PO; -FLUT11IN INH; -GASTROGRAFIN SOLUTION 30ML (Q9963) As Ordered ONE; -GLUC1TAB58 PO; -ISOVUE-370 76% 100ML VIAL As Ordered ONE; -LORA-243 PO; -MORP-69 PO; -NARC1SPR NARES; -ONDA8TAB10 PO; -[UNRECOGNIZED DRUG - CODE] PO
[2021-01-28] MEDS ORDERED: MORP-69 PO (15:21)
[2021-01-28] MEDS ORDERED: ONDANSETRON 4MG/2ML VIAL IV ONE (16:25)
[2021-01-28] MEDS ORDERED: NS 1,000 ML IV ONE (16:25)
[2021-01-28] MEDS ORDERED: LIDOCAINE 4% TOPICAL SOLN 50 ML BTL TOP ONE (17:25)
[2021-01-28 17:28] LABS: BASO # 0.1 10^3/uL (0.0-0.2); BASO % 0.4 % (0.0-1.0); EOS # 0.2 10^3/uL (0.0-0.5); EOS % 1.5 % (0.0-3.0); HEMATOCRIT 38.2 % (36.0-47.0); HEMOGLOBIN 12.3 g/dl (12.0-15.5); LYMPH # 1.4 10^3/uL (1.5-5.0); LYMPH % 11.4 % (24.0-44.0); MEAN CORPUSCULAR HEMOGLOBIN 29.9 pg (27.0-33.0); MEAN CORPUSCULAR HGB CONC 32.2 g/dl (32.0-36.5); MEAN CORPUSCULAR VOLUME 92.7 fl (80.0-96.0); MONO # 0.7 10^3/uL (0.0-0.8); MONO % 5.4 % (2.0-8.0); NEUTROPHILS # 10.1 10^3/uL (1.5-8.5); NEUTROPHILS % 80.8 % (36.0-66.0); PLATELET COUNT, AUTOMATED 278 10^3/uL (150-450); RED BLOOD COUNT 4.12 10^6/uL (4.00-5.40); WHITE BLOOD COUNT 12.5 10^3/uL (4.0-10.0)
[2021-01-28] MEDS ORDERED: LIDOCAINE 2% JELLY 5ML TUBE TOP ONE (17:35)
[2021-01-28 17:51] LABS: ALT/SGPT 13 U/L (12-78); BILIRUBIN,DIRECT < 0.1 MG/DL (0.0-0.2); BILIRUBIN,TOTAL 0.2 MG/DL (0.2-1.0); BLOOD UREA NITROGEN 5 MG/DL (7-18); CALCIUM LEVEL 8.5 MG/DL (8.8-10.2); CARBON DIOXIDE LEVEL 26 MEQ/L (21-32); CHLORIDE LEVEL 91 MEQ/L (98-107); CREATININE FOR GFR 0.64 MG/DL (0.55-1.30); GLOMERULAR FILTRATION RATE > 60.0 (>45); GLUCOSE, FASTING 95 MG/DL (70-100); LIPASE 40 U/L (73-393); POTASSIUM SERUM 4.3 MEQ/L (3.5-5.1); SODIUM LEVEL 125 MEQ/L (136-145); TOTAL PROTEIN 6.4 GM/DL (6.4-8.2)
[2021-01-28 18:10] LABS: INR 0.96; PARTIAL THROMBOPLASTIN TIME 32.5 SECONDS (24.2-38.5)
[2021-01-28] MEDS ORDERED: MORPHINE 2 MG/ML 1ML VIAL (J2270) IV ONE (19:05)
[2021-01-28] MEDS ORDERED: LORA-243 PO (19:22)
[2021-01-28] MEDS ORDERED: [UNRECOGNIZED DRUG - CODE] PO (19:22)
[2021-01-28] MEDS ORDERED: CYCL-707 PO (19:22)
[2021-01-28] MEDS ORDERED: GABA-282 PO (19:22)
[2021-01-28] MEDS ORDERED: FLUT11IN INH (19:22)
[2021-01-28] MEDS ORDERED: CARV3.12 PO (19:22)
[2021-01-28] MEDS ORDERED: PRED5TA PO (19:22)
[2021-01-28] MEDS ORDERED: GLUC1TAB58 PO (19:23)
[2021-01-28] MEDS ORDERED: ONDA8TAB10 PO (19:23)
[2021-01-28] MEDS ORDERED: NARC1SPR NARES (19:28)
[2021-01-28] MEDS ORDERED: FER-15DR PO (19:28)
--- NOTE | 2021-01-28 19:56 | HPEPDOC ---
General Date of Admission 01/28/2021 Date of Service: Jan 28, 2021 Chief Complaint The patient is a 65-year-old female admitted with a reason for nausea, vomiting, increasing weakness and Abnormal Labs. Source: Patient, Family, RN/MD Timing/Duration: Day(s) Severity: Moderate Associated Symptoms: Malaise, Nausea, Weakness History of Present Illness Mrs. Newberry is a 65 year-old female with significant PMH of s/p stoma (Ileostomy) secondary to Ileus with Small bowel obstruction (SBO) in 03/17/20, COPD, ZITA on CPAP, no supplemental oxygen, Pneumonia, Essential Hypertension, CAD, Pacemaker placed 10/17/20, s/p Right Carotid Endarterectomy, Hypercholesterolemia, s/p Cervical fusion with chronic back pain, Fibromyalgia, Major Depression with Anxiety and Insomnia, Urinary Incontinence, Osteoarthritis, Seasonal allergies, chronic constipation, Osteoporosis,GERD, Paroxysmal Atrial Fibrillation on Amiodarone 200 mg daily and Eliquis 5mg po bid, , CAD with old right carotid endarterectomy, and 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 She was seen by Dr. Byrd, Surgeon, who will be following patient while she is admitted. Ms. Newberry will be admitted Inpatient with IV antibiotics, telemetry with continuos pulse oximetry. Home Medications Scheduled Amiodarone HCl (Amiodarone HCl) 200 Mg Tablet, 200 MG PO DAILY, (Reported) Amlodipine Besylate (Amlodipine Besylate) 5 Mg Tablet, 5 MG PO DAILY, (Reported) Apixaban (Eliquis) 5 Mg Tablet, 5 MG PO BID, (Reported) ON HOLD FOR PROCEDURE SINCE 01/23 Aspirin (Aspirin) 81 Mg Tab.chew, 81 MG PO QHS, (Reported) Bupropion HCl (Wellbutrin Xl) 150 Mg Tab.er.24h, 150 MG PO DAILY, (Reported) Calcium Carbonate/Vitamin D3 (Liquid Calcium with Vitamin D) 1 Each Capsule, 1 CAP PO BID, (Reported) Carvedilol (Carvedilol) 3.125 Mg Tablet, 3.125 MG PO BID, (Reported) Celecoxib (Celebrex) 100 Mg Capsule, 100 MG PO BID, (Reported) ON HOLD FOR PROCEDURE SINCE 01/24 Cholecalciferol (Vitamin D3) (Vitamin D3) 25 Mcg Tablet, 25 MCG PO DAILY, (Reported) Duloxetine Hcl (Duloxetine HCl) 30 Mg Capsule.dr, 60 MG PO QAM, (Reported) Duloxetine Hcl (Duloxetine HCl) 30 Mg Capsule.dr, 30 MG PO QHS, (Reported) Esomeprazole Magnesium (Nexium) 40 Mg Capsule.dr, 40 MG PO BID, (Reported) Ferrous Sulfate (Shane-in-Angela) 15 Mg/1 Ml Drops, 15 MG PO DAILY, (Reported) Fluticasone Propionate (Flovent Hfa) 110 Mcg/Act Aer.w.adap, 2 PUFF INH BID, (Reported) Folic Acid (Folic Acid) 1 Mg Tablet, 1 MG PO DAILY, (Reported) Gabapentin (Gabapentin) 300 Mg Capsule, 300 MG PO BID, (Reported) MORNING AND EVENING Gabapentin (Gabapentin) 300 Mg Capsule, 900 MG PO QHS, (Reported) Glucosamine/D3/Boswellia Sheila (Osteo Bi-Flex Tablet) 1 Each Tablet, 2 TAB PO DAILY, (Reported) L.acidoph/L.bulg/B.bif/S.therm (Jaquelin-Bid Caplet) 1 Each Tablet, 1 TAB PO TID, (Reported) Loratadine (Loratadine) 10 Mg Tablet, 10 MG PO DAILY, (Reported) Montelukast Sodium (Singulair) 10 Mg Tablet, 10 MG PO QHS, (Reported) Morphine Sulfate (Morphine Sulfate ER) 15 Mg Tablet.er, 15 MG PO Q8H, (Reported) Multivitamin,Therapeutic (Thera-Tabs) 1 Each Tablet, 1 TAB PO DAILY, (Reported) Rosuvastatin Calcium (Rosuvastatin Calcium) 10 Mg Tablet, 10 MG PO QHS, (Reported) Tolterodine Tartrate (Detrol LA) 4 Mg Cap.er.24h, 4 MG PO DAILY, (Reported) Ubidecarenone (Co Q-10) 200 Mg Capsule, 100 MG PO DAILY, (Reported) Zolpidem Tartrate (Zolpidem Tartrate) 5 Mg Tablet, 5 MG PO QHS, (Reported) Scheduled PRN Albuterol Sulfate (Proair Hfa) 8.5 Gm Hfa.aer.ad, 2 PUFFS INH QID PRN for SHORTNESS OF BREATH, (Reported) Cholestyramine (with Sugar) (Cholestyramine Packet) 4 Gm Powd.pack, 2 GM PO BID PRN for DIARRHEA, (Reported) Cyclobenzaprine HCl (Cyclobenzaprine HCl) 10 Mg Tablet, 10 MG PO TID PRN for MUSCLE SPASMS, (Reported) Hydrocodone/Acetaminophen (Hydrocodone-Acetamin 10-325 mg) 1 Each Tablet, 1 TAB PO Q6H PRN for PAIN, (Reported) CAN TAKE UP TO 2 TABLETS EVERY 6 HOURS, MDD 8 TABLETS Naloxone HCl (Narcan) 4 Mg [place], 1 SPRAY NARES ONCE PRN for OVERDOSE, (Reported) Ondansetron HCl (Ondansetron HCl) 8 Mg Tablet, 8 MG PO TID PRN for NAUSEA OR VOMITING, (Reported) Prednisone (Prednisone) 5 Mg Tablet, 5 MG PO DAILY PRN for INFLAMMATION, (Reported) Allergies Coded Allergies: Penicillins (Verified Allergy, Severe, anaphylaxis, 01/28/21) pregabalin (Verified Allergy, Severe, ANAPHYLAXIS, 01/28/21) Cephalosporins (Verified Adverse Reaction, Severe, red man syndrome, 01/28/21) Past Medical History Medical History HTN, HLD, S/P ILEUS WITH ILEOSTOMY, OSTEOPOROSIS, S/P RIGHT CAROTID ENDARTERECTOMY, CONSTIPATION, CAD, SSS PACEMAKER, S/P OLD TIA, CERVICAL FUSION WITH CHRONIC PAIN (OLD), SEASONAL ALLERGIES, PAROXYSMAL ATRIAL FIBRILLATION, COPD ON CPAP AT HOME (NO SUPPLEMENTAL OXYGEN), GERD, MUSCLE SPASM LOWER BACK, INSOMNIA, RECURRENT MAJOR DEPRESSION, ANXIETY, FIBROMYALGIA, URINARY INCONTINENCE, OSTEOARTHRITIS, OBSTRUCTIVE SLEEP APNEA, VAPES NICOTINE (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 Family History Significant Family History: No pertinent family hx Social History * Smoker: former Smoker (cigarette) Drugs: denies Psychosocial History: No pertinent psych hx A-FIB/CHADSVASC A-FIB History Current/History of A-Fib/PAF?: Yes Current PO Anticoag Therapy: Yes Age/Risk Factor Scoring CHADSVASC: CHADSVASC Response (Comments) Value Age Risk Factor Age 65-74 years old 1 Gender Risk Factor Female 1 Hx of HTN No 0 Total 2 Treatment Treatment ordered: Apixaban Review of Systems Constitutional: Reports: Malaise, Weakness, Fatigue Eyes: Denies: Pain, Vision change, Conjunctivae inflammation, Eyelid inflammation, Redness, Other ENT: Reports: Other Symptoms (mouth dry) Skin: Denies: Rash, Lesions, Jaundice, Bruising, Itching, Dry, Breakdown, Nail Changes, Other Pulmonary: Denies: Dyspnea, Cough, Pleuritic Chest Pain, Other Symptoms Cardiovascular: Reports: Orthopnea, Lt Headedness Gastrointestinal: Reports: Nausea, Vomiting, Abdominal Pain Genitourinary: Denies: Dysuria, Frequency, Incontinence, Hematuria, Retention, Other Symptoms Hematologic: Denies: Bruising, Bleeding Excessively, Petecchia, Purpura, Enlarged Lymph Nodes, Other Hematologic Endocrine: Denies: Polydipsia, Polyphagia, Polyuria, Heat Intolerance, Cold Intolerance, Other Endocrine Sx Musculoskeletal: Denies: Neck Pain, Back Pain, Shoulder Pain, Arm Pain, Hand Pain, Leg Pain, Foot Pain, Joint Pain, Muscle Pain, Spasms, Other Symptoms Neurological: Reports: Weakness Psych: Reports: Mood Normal Physical Examination General Exam: Positive: Alert, Cooperative, No Acute Distress Eye Exam: Positive: PERRLA, Conjunctiva & lids normal, EOMI ENT Exam: Positive: Atraumatic, Mucous membr. moist/pink, Pharynx Normal, Tongue Midline, Nares Patent (NG tube placed and to low wall suction) Neck Exam: Positive: Supple Chest Exam: Positive: Normal air movement, Diminished (bilateral base lobes) Telemetry: Positive: No significant arrhythmia Abdomen Exam: Positive: BS Hypoactive, Soft Extremity Exam: Positive: Normal pulses Skin Exam: Positive: Nl turgor and temperature Neuro Exam: Positive: Normal Speech, Cranial Nerves 3-12 NL Vital Signs Vital Signs Date Time Temp Pulse Resp B/P (MAP) Pulse Ox O2 Delivery O2 Flow Rate FiO2 01/28/21 15:32 16 01/28/21 14:40 98.6 92 98 Room Air Laboratory Data Labs 24H Laboratory Tests 2 01/28/21 16:27: Immature Granulocyte % (Auto) 0.5, Neutrophils (%) (Auto) 80.8H, Lymphocytes (%) (Auto) 11.4L, Monocytes (%) (Auto) 5.4, Eosinophils (%) (Auto) 1.5, Basophils (%) (Auto) 0.4, Neutrophils # (Auto) 10.1H, Lymphocytes # (Auto) 1.4L, Monocytes # (Auto) 0.7, Eosinophils # (Auto) 0.2, Basophils # (Auto) 0.1, Nucleated Red Blood Cells % (auto) 0.0, Prothrombin Time 13.0, Prothromb Time International Ratio 0.96, Activated Partial Thromboplast Time 32.5, Urine Color YELLOW, Urine Appearance CLEAR, Urine pH 6.0, Urine Specific [place] 1.045, Urine Protein NEGATIVE, Urine Glucose (UA) NEGATIVE, Urine Ketones NEGATIVE, Urine Blood NEGA TIVE, Urine Nitrite NEGATIVE, Urine Bilirubin NEGATIVE, Urine Urobilinogen 0.2, Urine Leukocyte Esterase NEGATIVE, Urine WBC (Auto) 0, Urine RBC (Auto) 1, Urine Hyaline Casts (Auto) 0, Urine Bacteria (Auto) NEGATIVE, Urine Squamous Epithelial Cells 6, Urine Sperm (Auto) , Anion Gap 8, Glomerular Filtration Rate > 60.0, Lactic Acid Level 1.2, Calcium Level 8.5L, Total Bilirubin 0.2, Direct Bilirubin < 0.1, Aspartate Amino Transf (AST/SGOT) 25, Alanine Aminotransferase (ALT/SGPT) 13, Alkaline Phosphatase 114, Total Protein 6.4, Albumin 3.0L, Albumin/Globulin Ratio 0.9L, Lipase 40L 01/28/21 17:07: Coronavirus (COVID-19)(PCR) NEGATIVE CBC/BMP Laboratory Tests 01/28/21 16:27 Problems (1) Small bowel obstruction Status: Acute Discussed With: Patient, Health Care Proxy Problem Specific Plan: Consult Specialist, Monitor Clinically, Repeat Labs Problem Text: Mrs. Newberry, is a 65 year-old female admitted to [facility] for Small bowel obstruction (SBO), Dehydration secondary to nausea and vomiting. Small Bowel Obstruction with Ileostomy-Acute on Chronic CT ABD/PELV with IV Contrast: s/p colectomy with ileostomy RUQ (right anterior abdominal wall) with peristomal hernia with mesenteric fat and multiple loops of bowel. Proximal and afferent bowel moderately dilated and fluid-filled (leading bowels); while the efferent loop of bowels exiting the hernia is collapsed. No free air or fluid found. Plan Admit to Inpatient Medical-Surgical Unit with telemetry and continuous pulse oximetry Check AM labs, replace electrolytes as needed Surgeon, Dr. Byrd, will continue to follow patient NPO with sips of water with medication, NG tube to intermittent low wall suction (placement verified with chest x-ray and per Radiologist at 2116). Monitor vs/ I&O Fall precautions Change ileostomy bag q shift or as needed Pneumonia-Acute CT ABD/PELV with contrast shows: lung bases with ground-glass opacities. Incentive spirometery q 1-2 hours 10 times O2 supplemental as needed 2-5L per N/C goal O2 saturation 88-92 IV antibiotics may be needed, will be determine by AM provider. Hyponatremia secondary to Dehydration and Hypovolemia-Acute IVF NS at 100 ml/hr Re-assess Sodium level (morning labs-BMP) Fatigue-Acute Bedrest, ambulate as tolerated Essential Hypertension-Chronic Continue home medications: Carveidolol 6.25 mg po bid; Norvasc 5 mg mike daily CAD with Hyperlipidemia; S/p SSS Pacemaker and s/p Right Carotid endarterectomy-Chronic Continue home medications: Co Q-10 100 mg po daily, ASA 81 mg po daily; Cholestryarmine 2 GM packed po bid; Atrial Fibrillation & s/p Old TIA-Chronic Placed on telemetry Continue-Amiodarone, Eliquis 5 mg po bid Chronic pain secondary to cervical fusion s/p-Chronic Continue home medication prescribed by pain management: Morphine Sulfate ER 15 mg po q 8 hours Gabapentin 600mg po bid; Celebrex 100 mg po bid COPD with ZITA (Obstructive Sleep Apnea)-Chronic CPAP at home , no supplemental O2 required at home. O2 supplemental as needed 2-5L per N/C goal O2 saturation 88-92 Osteoporosis-Chronic Continue home regimen-Vitamin D3-25 mcg daily Insomnia with Anxiety and Depression-Chronic Hold Ambien-patient taking Opiates do not want to oversedate her Continue home medication regimen: Wellbutrin XL 150 mg po daily; Duloxetine 60 mg po qAM and 30 mg po QHS; GERD-chronic Continue Omeprazole DR 40 mg po BID, MOM prn; Full code, HCP Mr. Newberry PPI Prophylaxis: Omeprazole DR 40 mg po BID DVT Prophylaxis: SCDs with CHARI YVONNE BLE; Eliquis 5 mg po bid continue home regimen Discharge: Pending clinical course (2) Fatigue Status: Acute Response to Treatment: Improving (3) Nausea & vomiting Status: Acute (4) Hyponatremia Status: Acute (5) MIQUEL (acute kidney injury) Status: Acute (6) Dehydration Status: Acute (7) Immunocompromised state due to drug therapy Status: Chronic Plan / VTE VTE Prophylaxis Ordered?: Yes HARSHIL ART Jan 28, 2021 19:05
[2021-01-28] MEDS ORDERED: NS 1,000 ML IV SCH (20:05)
--- NOTE | 2021-01-28 21:03 | ECGEPIP ---
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 Order Number: [id number] Reading MD: Shanna Velasquez Measurements Intervals [place] Rate: 94 P: 39 [place]: 138 QRS: -3 QRSD: 66 T: 4 QT: 350 QTc: 437 Interpretive Statements Normal sinus rhythm Nonspecific ST abnormality similar 10/17/20 Electronically Signed on 01-28-2021 21:03:15 EDT by Shanna Velasquez
--- NOTE | 2021-01-28 21:13 | REPVR ---
PROCEDURE INFORMATION: Exam: XR Chest Exam date and time: 01/28/2021 8:14 PM Age: 65 years old Clinical indication: Other: Ng tube; Additional info: Ng tube placement TECHNIQUE: Imaging protocol: XR of the chest. Views: 1 view. COMPARISON: [place] PORTABLE CHEST X-RAY 10/17/2020 4:14 PM FINDINGS: Tubes, catheters and devices: Dual lead left approach pacemaker. Feeding tube with its tip at the gastroesophageal junction. Advancement of the tube is recommended. Lungs: Unremarkable. No consolidation. Pleural spaces: Unremarkable. No pleural effusion. No pneumothorax. Heart/Mediastinum: Unremarkable. No cardiomegaly. Bones/joints: Unremarkable. IMPRESSION: Nasogastric tube with its tip at the gastroesophageal junction. Advancement of the tube is recommended. Electronically signed by: Kapil Avendano On 01/28/2021 21:13:05 PM
[2021-01-28 21:50] VITALS: BP 144/65
[2021-01-29] VITALS (7 sets, daily range): BP systolic 130–176; BP diastolic 60–80
[2021-01-29] MEDS ORDERED: hydrALAZINE 20MG/ML 1ML VIAL (J0360 PER 20MG) IV ONE (01:30)
[2021-01-29] MEDS: MORPHINE 15 MG SA TAB PO SCH ×4 (01:36→21:59)
[2021-01-29 05:28] LABS: ALBUMIN 2.6 GM/DL (3.2-5.2); ALT/SGPT 10 U/L (12-78); BILIRUBIN,TOTAL 0.2 MG/DL (0.2-1.0); BLOOD UREA NITROGEN 3 MG/DL (7-18); CALCIUM LEVEL 7.9 MG/DL (8.8-10.2); CARBON DIOXIDE LEVEL 26 MEQ/L (21-32); CHLORIDE LEVEL 104 MEQ/L (98-107); CREATININE FOR GFR 0.49 MG/DL (0.55-1.30); GLOMERULAR FILTRATION RATE > 60.0 (>45); GLUCOSE, FASTING 95 MG/DL (70-100); MAGNESIUM LEVEL 1.9 MG/DL (1.8-2.4); POTASSIUM SERUM 3.5 MEQ/L (3.5-5.1); SODIUM LEVEL 137 MEQ/L (136-145); TOTAL PROTEIN 5.9 GM/DL (6.4-8.2)
[2021-01-29] MEDS ORDERED: D5W 1,000 ML IV SCH (07:00)
[2021-01-29] MEDS: AMIODARONE 200 MG TAB (PACERONE) PO SCH (08:10)
[2021-01-29] MEDS: amLODIPine 5 MG TAB PO SCH (08:10)
[2021-01-29 10:22] LABS: BLOOD UREA NITROGEN 3 MG/DL (7-18); CALCIUM LEVEL 7.8 MG/DL (8.8-10.2); CARBON DIOXIDE LEVEL 27 MEQ/L (21-32); CHLORIDE LEVEL 100 MEQ/L (98-107); CREATININE FOR GFR 0.48 MG/DL (0.55-1.30); GLOMERULAR FILTRATION RATE > 60.0 (>45); GLUCOSE, FASTING 106 MG/DL (70-100); POTASSIUM SERUM 3.3 MEQ/L (3.5-5.1); SODIUM LEVEL 134 MEQ/L (136-145)
--- NOTE | 2021-01-29 10:42 | IPNPDOC ---
Text Note Date of Service The patient was seen on 01/29/21. NOTE No acute events overnight. Her ostomy is full of air. She denies any problems with nausea, or emesis, and her NG has had no output overnight. However, her NG was also never advanced after the x ray last evening. VSSAF NAD abd - soft, nt, nd, ostomy intact with air in the bag. labs - pending A) 65/yo female with partial SBO likely secondary to intermittent parastomal he rnia P) advance NG ok to have ice and water once the NG is in place if there is still minimal output then we will clamp it and start a liquid diet. Jeramie Byrd DO VS,[place], I+O VS, [place], I+O Laboratory Tests 01/28/21 16:27 01/29/21 04:48 01/29/21 09:43 Vital Signs Date Time Temp Pulse Resp B/P (MAP) Pulse Ox O2 Delivery O2 Flow Rate FiO2 01/29/21 08:10 113 154/73 01/29/21 08:01 20 91 Room Air 01/29/21 08:00 98.0 2.0 l I&O- Last 24 Hours up to 6 AM 01/29/21 06:00 Intake Total 2400 ml Output Total 300 ml Balance 2100 ml ROXANN BYRD DO Jan 29, 2021 10:42
[2021-01-29] MEDS: ACETAMINOPHEN TAB 650MG DOSE (2X325MG) PO PRN ×2 (10:56→20:25)
--- NOTE | 2021-01-29 10:59 | CR ---
CONSULTATION DATE: 01/28/2021 REASON FOR CONSULTATION: Possible bowel obstruction. HISTORY OF PRESENT ILLNESS: The patient is a 65-year-old female, patient will known to our service for a history of colon resection with ileostomy, almost a year ago. For the past few days she has had issues with nausea, vomiting, intermittent abdominal pains. She had an outpatient CT done that showed early partial obstruction due to a parastomal hernia, and her primary called her and advised her to come into the hospital. In the Emergency Room she had labs done which showed just a slightly elevated white count. The rest of her labs were okay. She did have an NG tube placed in the Emergency Room, however it was not in far enough and was not putting out much at all, slight bile tinged fluid but minimal volume. She denies any current nausea or vomiting. No fevers or chills, no abdominal pains. Her abdomen is soft and her ostomy is producing large volumes of air already. No abdominal distention to speak of. PAST MEDICAL HISTORY: The patient's past medical history is significant for: 1. Hypertension. 2. Hyperlipidemia. 3. Osteoporosis. 4. Coronary artery disease. 5. TIA. 6. Paroxysmal atrial fibrillation. 7. Chronic obstructive pulmonary disease. 8. Muscle spasms. 9. Insomnia. 10. Anxiety. 11. Fibromyalgia. 12. Osteoarthritis. 13. Sleep apnea. PAST SURGICAL HISTORY: The patient's past surgical history is significant for: 1. Bowel resection with end ileostomy. 2. Carotid endarterectomy. 3. Pacemaker placement. FAMILY HISTORY: Noncontributory. SOCIAL HISTORY: Denies current drug, alcohol or tobacco abuse. ALLERGIES: 1. PENICILLIN. 2. CEPHALOSPORINS. 3. PREGABALIN. MEDICATIONS: Please see Med Rec. REVIEW OF SYSTEMS: Pertinent positives and negatives as stated in the HPI. PHYSICAL EXAMINATION: GENERAL APPEARANCE: The patient is alert and oriented x3, in no acute distress. VITAL SIGNS: Temperature 98.6, pulse 92, respirations 18, blood pressure 142/64, pulse oximetry 98% on room air. HEENT: Pupils are equal, round and reactive to light and accommodation. HEART: S1, S2, regular rate and rhythm. LUNGS: Clear to auscultation bilaterally. ABDOMEN: Soft, nontender, nondistended. No palpable deformities or masses around the stoma. There is some liquid stool and air in the bag with audible air passage during the exam. EXTREMITIES: No clubbing, cyanosis, or edema. LABORATORY STUDIES: White count 12.5, hemoglobin 12.3, platelet count 278. Sodium 125, potassium 4.3, creatinine 0.64, albumin 3. IMAGING: CT abdomen and pelvis done outpatient yesterday showed early partial small-bowel obstruction secondary to a peristomal hernia which contains mesenteric fat and multiple loops of small bowel. No associated air or free fluid. No drainable collection or abscesses. ASSESSMENT AND PLAN: The patient is a 65-year-old female with a history of a collectomy with end ileostomy, currently presenting with a partial small bowel obstruction secondary to large peristomal hernia. There is no palpable hernia on exam. On review of Dr. Do's office notes from earlier in December, he did appreciate a hernia but was able to easily reduce it. I am under the impression that this hernia has already reduced itself since I do not palpate it on exam today. 1. Recommendation is to continue with the NG tube to low intermittent suction. Once her output is minimal, we will clamp the NG and start her on a diet and see how she does. It appears that this is likely already on the path to improvement. 2. Once she is able to tolerate a diet okay, she will be discharged home and will be able to follow up with Dr. Do in the office as an outpatient.
--- NOTE | 2021-01-29 11:08 | IPNPDOC ---
Text Note Date of Service The patient was seen on 01/29/21. NOTE Subjective: Patient is a 65-year-old female with a PMHx of Colonic ischemia s/p Subtotal colectomy and Ileostomy creation (03/28/2020), Hx of SBO, HTN, CAD, SSS s/p PM, Paroxysmal A fib (Amiodarone / Eliquis), DLP, Hx of R carotid endarterectomy, Hx of TIA, COPD, ZITA on CPAP, Chronic back pain, Fibromyalgia, Depression / Anxiety / Insomnia, GERD, who presented to [facility] because of worsening fatigue nausea and vomiting. Emergency room, patient had CT scan of her abdomen completed that revealed the possibility of a partial obstruction around her ileostomy site Gen. surgery, Dr. Byrd was contacted for consultation and patient was admitted to the hospitalist service for further evaluation and treatment. NG tube was placed overnight and advanced this morning. Patient was seen and examined at the bedside. Patient reports that her nausea, abdominal discomfort have improved. She denies any chest pain, shortness breath or palpitations. Reports that the output from her ileostomy has never stopped. Objective: Vitals (See below) General: Patient is sitting up in bed, appears to be comfortable, not in any acute distress, is oriented to person, place and time HEENT: NC, AT CVS: +S1S2 Lungs: Fair air entry b/l, no visual wheezing, rhonchi or rales Abdomen: Soft, nondistended, nontender, positive ileostomy, hypoactive bowel sounds Extremities: - Edema, - Calf tenderness Imaging: CT abdomen / pelvis 01/28: 1. Findings suggest early/partial small bowel obstruction secondary to peristomal hernia which contains mesenteric fat and multiple loops of bowel. No associated free air or free fluid/ascites. No drainable collection or abscess. 2. Lung bases demonstrate subtle ground-glass opacities which may reflect early atelectasis/pneumonia. CXR 01/28: Nasogastric tube with its tip at the gastroesophageal junction. Advancement of the tube is recommended. Assessment and plan: Abdominal pain / Nausea - possibly 2/2 partial SBO - Patient has a history of ischemic colitis s/p subtotal colectomy and Ileostomy creation (03/28/2020) - Clinically patient has reported improvement of her symptoms - Physical does not reveal any significant abdominal tenderness, hypoactive bowel sounds noted - No lactic acidosis - Imaging noted above - NG tube in place and has been advanced this morning - General surgery on consultation; appreciate their input - Diet advanced as per surgery Reported ground glass opacities on imaging - Clinically patient does not express any short of breath or cough - Has remained afebrile - Leukocytosis with neutrophil predominance - UA negative - CXR negative - Will check pro-calcitonin / blood cultures - Will hold off on antibiotics at this time s/p Hyponatremia - likely 2/2 hypotonic hypovolemic etiology - Sodium levels have been improved faster than expected - Normal saline has been discontinued overnight - Will start D5W and follow up repeat sodium levels closely HTN - BP well controlled - c/w Amlodipine - Will resume Carvedilol CAD - Will resume ASA 81 SSS s/p PM Paroxysmal A fib - c/w Amiodarone - Will resume Eliquis DLP - c/w Rosuvastatin Hx of R carotid endarterectomy / Hx of TIA - c/w ASA and Rosuvastatin Chronic COPD - No evidence of exacerbation - Continue with inhaled therapy as ordered ZITA on CPAP - May use own CPAP while inpatient Chronic back pain - Will resume Gabapentin - Will hold opiates at this time (Morphine) Fibromyalgia / Depression / Anxiety / Insomnia - c/w Bupropion / Duloxetine Osteoporosis - Vitamin D supplementation on hold; will resume on discharge GERD - c/w Omeprazole DVT prophylaxis - Will resume full anticoagulation with Eliquis VS,Fishbone, I+O VS, Fishbone, I+O Laboratory Tests 01/28/21 16:27 01/29/21 04:48 01/29/21 09:43 Vital Signs Date Time Temp Pulse Resp B/P (MAP) Pulse Ox O2 Delivery O2 Flow Rate FiO2 01/29/21 08:10 113 154/73 01/29/21 08:01 20 91 Room Air 01/29/21 08:00 98.0 2.0 I&O- Last 24 Hours up to 6 AM 01/29/21 06:00 Intake Total 2400 ml Output Total 300 ml Balance 2100 ml GERRY ARRIOLA MD Jan 29, 2021 11:08
[2021-01-29] MEDS: buPROPion **XL** TABLET 150MG (WELLBUTRIN XL) PO SCH (12:09)
[2021-01-29] MEDS: LACTOBACILLUS ACIDOPHILUS CAP (BACID) PO SCH ×3 (12:09→20:24)
[2021-01-29] MEDS: APIXABAN 5 MG TAB (ELIQUIS) PO SCH ×2 (12:11→20:25)
[2021-01-29] MEDS: CARVedilol 3.125 MG TAB PO SCH ×2 (12:11→20:26)
[2021-01-29] MEDS: GABAPENTIN 300 MG CAP PO SCH ×2 (12:12→16:38)
[2021-01-29] MEDS: PANTOPRAZOLE 40MG TAB (PROTONIX) PO SCH ×2 (12:12→20:26)
[2021-01-29] MEDS: DULoxetine 30 MG CAP (CYMBALTA) PO SCH (12:12)
[2021-01-29] MEDS ORDERED: POTASSIUM CHLORIDE INJ 40 MEQ in D5W 1,000 ML IV SCH (13:00)
[2021-01-29] MEDS: FLUTICASONE HFA 110 MCG 12 GM INHALER (FLOVENT) INH SCH ×2 (13:32→19:18)
--- NOTE | 2021-01-29 14:09 | REP ---
INDICATION: desaturations COMPARISON: 01/28/2021 TECHNIQUE: PA and lateral. FINDINGS: Nasogastric tube courses below left hemidiaphragm. The mediastinum and cardiac silhouette are normal. Pacemaker in satisfactory position. The lung narayan are clear and without acute consolidation, effusion, or pneumothorax. The skeletal structures are intact and normal. IMPRESSION: No acute consolidation or effusion. <Electronically signed by Ez Hurd > 01/29/21 [id number]
[2021-01-29 14:28] LABS: BLOOD UREA NITROGEN 2 MG/DL (7-18); CALCIUM LEVEL 8.7 MG/DL (8.8-10.2); CARBON DIOXIDE LEVEL 28 MEQ/L (21-32); CHLORIDE LEVEL 96 MEQ/L (98-107); CREATININE FOR GFR 0.58 MG/DL (0.55-1.30); GLOMERULAR FILTRATION RATE > 60.0 (>45); GLUCOSE, FASTING 105 MG/DL (70-100); POTASSIUM SERUM 3.2 MEQ/L (3.5-5.1); SODIUM LEVEL 130 MEQ/L (136-145)
[2021-01-29] MEDS ORDERED: POTASSIUM CHLORIDE 10 MEQ SR TABLET PO ONE ×2 (15:30→19:00)
[2021-01-29 18:47] LABS: BLOOD UREA NITROGEN 2 MG/DL (7-18); CALCIUM LEVEL 8.5 MG/DL (8.8-10.2); CARBON DIOXIDE LEVEL 26 MEQ/L (21-32); CHLORIDE LEVEL 95 MEQ/L (98-107); CREATININE FOR GFR 0.43 MG/DL (0.55-1.30); GLOMERULAR FILTRATION RATE > 60.0 (>45); GLUCOSE, FASTING 99 MG/DL (70-100); POTASSIUM SERUM 3.3 MEQ/L (3.5-5.1); SODIUM LEVEL 131 MEQ/L (136-145)
[2021-01-29] MEDS ORDERED: MONTELUKAST 10 MG TAB PO SCH (21:00)
[2021-01-29] MEDS ORDERED: ASPIRIN 81 MG CHEW TABLET PO SCH (21:00)
[2021-01-29] MEDS ORDERED: ROSUVASTATIN 10 MG TAB (CRESTOR) PO SCH (21:00)
[2021-01-29] MEDS ORDERED: GABAPENTIN 300 MG CAP PO SCH (21:00)
[2021-01-30] VITALS: O2SAT 92
[2021-01-30] MEDS: MORPHINE 15 MG SA TAB PO SCH ×2 (05:46→14:41)
[2021-01-30 06:00] VITALS: BP 138/88
[2021-01-30] MEDS: FLUTICASONE HFA 110 MCG 12 GM INHALER (FLOVENT) INH SCH (07:21)
--- NOTE | 2021-01-30 07:21 | IPNPDOC ---
Text Note Date of Service The patient was seen on 01/30/21. NOTE No acute events overnight. Her ostomy is full of stool. She denies any problems with nausea, or emesis and she is tolerating diet with the NG out. VSSAF NAD abd - soft, nt, nd, ostomy intact with air and stool in the bag. labs - pending A) 65/yo female with partial SBO likely secondary to intermittent parastomal hernia resolved P) reg diet d/c home f/u with Dr. Do as already scheduled. Jeramie Byrd DO VS,Franklin, I+O VS, Franklin, I+O Laboratory Tests 01/29/21 09:43 01/29/21 13:51 01/29/21 18:05 Vital Signs Date Time Temp Pulse Resp B/P (MAP) Pulse Ox O2 Delivery O2 Flow Rate FiO2 01/30/21 06:00 97.6 88 20 138/88 (105) 96 Nasal Cannula 2.0 I&O- Last 24 Hours up to 6 AM 01/30/21 05:59 Intake Total 2410 ml Output Total 2325 ml Balance 85 ml ROXANN BYRD DO Jan 30, 2021 07:21
[2021-01-30 08:03] LABS: BASO # 0.1 10^3/uL (0.0-0.2); BASO % 0.6 % (0.0-1.0); EOS # 0.2 10^3/uL (0.0-0.5); EOS % 2.6 % (0.0-3.0); HEMATOCRIT 38.7 % (36.0-47.0); HEMOGLOBIN 12.1 g/dl (12.0-15.5); LYMPH # 1.6 10^3/uL (1.5-5.0); LYMPH % 17.8 % (24.0-44.0); MEAN CORPUSCULAR HEMOGLOBIN 29.2 pg (27.0-33.0); MEAN CORPUSCULAR HGB CONC 31.3 g/dl (32.0-36.5); MEAN CORPUSCULAR VOLUME 93.3 fl (80.0-96.0); MONO # 0.7 10^3/uL (0.0-0.8); MONO % 7.6 % (2.0-8.0); NEUTROPHILS # 6.3 10^3/uL (1.5-8.5); NEUTROPHILS % 70.8 % (36.0-66.0); PLATELET COUNT, AUTOMATED 285 10^3/uL (150-450); RED BLOOD COUNT 4.15 10^6/uL (4.00-5.40); WHITE BLOOD COUNT 8.9 10^3/uL (4.0-10.0)
[2021-01-30 08:32] LABS: BLOOD UREA NITROGEN 4 MG/DL (7-18); CALCIUM LEVEL 8.6 MG/DL (8.8-10.2); CARBON DIOXIDE LEVEL 27 MEQ/L (21-32); CHLORIDE LEVEL 100 MEQ/L (98-107); CREATININE FOR GFR 0.57 MG/DL (0.55-1.30); GLOMERULAR FILTRATION RATE > 60.0 (>45); GLUCOSE, FASTING 81 MG/DL (70-100); POTASSIUM SERUM 4.1 MEQ/L (3.5-5.1); SODIUM LEVEL 133 MEQ/L (136-145)
[2021-01-30] MEDS: APIXABAN 5 MG TAB (ELIQUIS) PO SCH (10:38)
[2021-01-30 10:39] VITALS: BP 133/75
[2021-01-30] MEDS: amLODIPine 5 MG TAB PO SCH (10:39)
[2021-01-30] MEDS: buPROPion **XL** TABLET 150MG (WELLBUTRIN XL) PO SCH (10:39)
[2021-01-30] MEDS: LACTOBACILLUS ACIDOPHILUS CAP (BACID) PO SCH (10:40)
[2021-01-30] MEDS: AMIODARONE 200 MG TAB (PACERONE) PO SCH (10:40)
[2021-01-30] MEDS: DULoxetine 30 MG CAP (CYMBALTA) PO SCH (10:40)
[2021-01-30] MEDS: PANTOPRAZOLE 40MG TAB (PROTONIX) PO SCH (10:40)
[2021-01-30] MEDS: CARVedilol 3.125 MG TAB PO SCH (10:40)
[2021-01-30] MEDS: GABAPENTIN 300 MG CAP PO SCH (10:40)
--- NOTE | 2021-01-30 10:41 | DS.PDOC ---
Discharge Summary General Date of Admission Jan 28, 2021 at 19:06 Date of Discharge 01/30/2021 Discharge Summary PROCEDURES PERFORMED DURING STAY: [None]. ADMITTING DIAGNOSES / DISCHARGE DIAGNOSES: s/p Abdominal pain / Nausea - possibly 2/2 partial SBO Reported ground glass opacities on imaging Hyponatremia - likely 2/2 hypotonic hypovolemic etiology HTN CAD SSS s/p PM Paroxysmal A fib DLP Hx of R carotid endarterectomy / Hx of TIA Chronic COPD Suspected ZITA Chronic back pain Fibromyalgia / Depression / Anxiety / Insomnia Osteoporosis GERD DVT prophylaxis COMPLICATIONS/CHIEF COMPLAINT: Nausea / Vomiting / Abdominal pain HISTORY OF PRESENT ILLNESS: Patient is a 65-year-old female with a PMHx of Colonic ischemia s/p Subtotal colectomy and Ileostomy creation (03/28/2020), Hx of SBO, HTN, CAD, SSS s/p PM, Paroxysmal A fib (Amiodarone / Eliquis), DLP, Hx of R carotid endarterectomy, Hx of TIA, COPD, ZITA on CPAP, Chronic back pain, Fibromyalgia, Depression / Anxiety / Insomnia, GERD, who presented to [facility] because of worsening fatigue nausea and vomiting. In the ER, patient had CT scan of her abdomen completed that revealed the possibility of a partial obstruction around her ileostomy site. General surgery, Dr. Byrd was contacted for consultation and patient was admitted to the hospitalist service for further evaluation and treatment. HOSPITAL COURSE: s/p Abdominal pain / Nausea - possibly 2/2 partial SBO - Patient has a history of ischemic colitis s/p subtotal colectomy and Ileostomy creation (03/28/2020) - Denies any nausea, vomiting or abdominal pain - No abdominal tenderness - No lactic acidosis - Imaging noted above - NG tube has been removed and diet has been advanced - General surgery on consultation; cleared for discharge home - Diet advanced as per surgery - Will have outpatient follow-up with primary care provider and general surgery within the next 7 days Reported ground glass opacities on imaging - Clinically patient does not express any short of breath or cough - Afebrile - s/p Leukocytosis - UA negative - CXR negative - Blood cultures pending - PCT negative - Will continue to hold off on antibiotics at this time Hyponatremia - likely 2/2 hypotonic hypovolemic etiology - Sodium levels have improved and remained stable - s/p Normal saline and D5W - Improving with oral hydration currently - Will have outpatient follow-up with primary care provider within the next 7 days HTN - BP well controlled - c/w Amlodipine - c/w Carvedilol CAD - c/w ASA 81 SSS s/p PM Paroxysmal A fib - c/w Amiodarone - c/w Eliquis DLP - c/w Rosuvastatin Hx of R carotid endarterectomy / Hx of TIA - c/w ASA and Rosuvastatin Chronic COPD - No evidence of exacerbation - Continue with inhaled therapy as ordered Suspected ZITA - Not on CPAP - Patient had a positive nocturnal pulse oximetry study that they have reported - They noted that they have been advised to seek a sleep study - Will have outpatient follow up with Pulmonology for possible sleep study Chronic back pain - c/w Gabapentin and Morphine Fibromyalgia / Depression / Anxiety / Insomnia - c/w Bupropion / Duloxetine Osteoporosis - Vitamin D supplementation on hold; will resume on discharge GERD - c/w Omeprazole DVT prophylaxis - c/w full anticoagulation with Eliquis DISCHARGE MEDICATIONS: Please see below. ALLERGIES: Please see below. PHYSICAL EXAMINATION ON DISCHARGE: Vitals (See below) General: Sitting up in bed, appears comfortable, awake / alert, oriented x3 HEENT: NC, AT CVS: +S1S2 Lungs: There is fair entry bilaterally, no wheezing, rhonchi, rales Abdomen: Soft, without distention, no tenderness, ileostomy with good output noted Extremities: No evidence of edema, - Calf tenderness LABORATORY DATA: Please see below. IMAGING: CT abdomen / pelvis 01/28: 1. Findings suggest early/partial small bowel obstruction secondary to peristomal hernia which contains mesenteric fat and multiple loops of bowel. No associated free air or free fluid/ascites. No drainable collection or abscess. 2. Lung bases demonstrate subtle ground-glass opacities which may reflect early atelectasis/pneumonia. CXR /: Nasogastric tube with its tip at the gastroesophageal junction. Advancement of the tube is recommended. ACTIVITY: [As tolerated]. DISCHARGE PLAN: Follow up with PCP, Pulmonology and Dr. Do within 7 days. Remain compliant with treatment plan and medications Return to the ER if you experience any problems DISPOSITION: Home with services DISCHARGE CONDITION: [Stable]. TIME SPENT ON DISCHARGE: 35 minutes Vital Signs/I&Os Vital Signs Date Time Temp Pulse Resp B/P (MAP) Pulse Ox O2 Delivery O2 Flow Rate FiO2 01/30/21 06:00 97.6 88 20 138/88 (105) 96 Nasal Cannula 2.0 I&O- Last 24 Hours up to 6 AM 01/30/21 05:59 Intake Total 2410 ml Output Total 2325 ml Balance 85 ml Laboratory Data Labs 24H Laboratory Tests 2 01/29/21 11:22: C-Reactive Protein, Quantitative 12.50H, Procalcitonin 0.05 01/29/21 13:51: Anion Gap 6L, Glomerular Filtration Rate > 60.0, Calcium Level 8.7L 01/29/21 18:05: Anion Gap 10, Glomerular Filtration Rate > 60.0, Calcium Level 8.5L 01/30/21 07:43: Anion Gap 6L, Glomerular Filtration Rate > 60.0, Calcium Level 8.6L, Immature Granulocyte % (Auto) 0.6, Neutrophils (%) (Auto) 70.8H, Lymphocytes (%) (Auto) 17.8L, Monocytes (%) (Auto) 7.6, Eosinophils (%) (Auto) 2.6, Basophils (%) (Auto) 0.6, Neutrophils # (Auto) 6.3, Lymphocytes # (Auto) 1.6, Monocytes # (Auto) 0.7, Eosinophils # (Auto) 0.2, Basophils # (Auto) 0.1, Nucleated Red Blood Cells % (auto) 0.0, Magnesium Level 2.0 CBC/BMP Laboratory Tests 01/29/21 13:51 01/29/21 18:05 01/30/21 07:43 Microbiology Microbiology 01/29/21 Blood Culture, Received Pending 01/29/21 Blood Culture, Received Pending Discharge Medications Scheduled Amiodarone HCl (Amiodarone HCl) 200 Mg Tablet, 200 MG PO DAILY, (Reported) Amlodipine Besylate (Amlodipine Besylate) 5 Mg Tablet, 5 MG PO DAILY, (Reported) Apixaban (Eliquis) 5 Mg Tablet, 5 MG PO BID, (Reported) ON HOLD FOR PROCEDURE SINCE 01/23 Aspirin (Aspirin) 81 Mg Tab.chew, 81 MG PO QHS, (Reported) Bupropion HCl (Wellbutrin Xl) 150 Mg Tab.er.24h, 150 MG PO DAILY, (Reported) Calcium Carbonate/Vitamin D3 (Liquid Calcium with Vitamin D) 1 Each Capsule, 1 CAP PO BID, (Reported) Carvedilol (Carvedilol) 3.125 Mg Tablet, 3.125 MG PO BID, (Reported) Celecoxib (Celebrex) 100 Mg Capsule, 100 MG PO BID, (Reported) ON HOLD FOR PROCEDURE SINCE 01/24 Cholecalciferol (Vitamin D3) (Vitamin D3) 25 Mcg Tablet, 25 MCG PO DAILY, (Reported) Duloxetine Hcl (Duloxetine HCl) 30 Mg Capsule.dr, 60 MG PO QAM, (Reported) Duloxetine Hcl (Duloxetine HCl) 30 Mg Capsule.dr, 30 MG PO QHS, (Reported) Esomeprazole Magnesium (Nexium) 40 Mg Capsule.dr, 40 MG PO BID, (Reported) Ferrous Sulfate (Shane-in-Angela) 15 Mg/1 Ml Drops, 15 MG PO DAILY, (Reported) Fluticasone Propionate (Flovent Hfa) 110 Mcg/Act Aer.w.adap, 2 PUFF INH BID, (Reported) Folic Acid (Folic Acid) 1 Mg Tablet, 1 MG PO DAILY, (Reported) Gabapentin (Gabapentin) 300 Mg Capsule, 300 MG PO BID, (Reported) MORNING AND EVENING Gabapentin (Gabapentin) 300 Mg Capsule, 900 MG PO QHS, (Reported) Glucosamine/D3/Boswellia Sheila (Osteo Bi-Flex Tablet) 1 Each Tablet, 2 TAB PO DAILY, (Reported) L.acidoph/L.bulg/B.bif/S.therm (Jaquelin-Bid Caplet) 1 Each Tablet, 1 TAB PO TID, (Reported) Loratadine (Loratadine) 10 Mg Tablet, 10 MG PO DAILY, (Reported) Montelukast Sodium (Singulair) 10 Mg Tablet, 10 MG PO QHS, (Reported) Morphine Sulfate (Morphine Sulfate ER) 15 Mg Tablet.er, 15 MG PO Q8H, (Reported) Multivitamin,Therapeutic (Thera-Tabs) 1 Each Tablet, 1 TAB PO DAILY, (Reported) Rosuvastatin Calcium (Rosuvastatin Calcium) 10 Mg Tablet, 10 MG PO QHS, (Reported) Tolterodine Tartrate (Detrol LA) 4 Mg Cap.er.24h, 4 MG PO DAILY, (Reported) Ubidecarenone (Co Q-10) 200 Mg Capsule, 100 MG PO DAILY, (Reported) Zolpidem Tartrate (Zolpidem Tartrate) 5 Mg Tablet, 5 MG PO QHS, (Reported) Scheduled PRN Albuterol Sulfate (Proair Hfa) 8.5 Gm Hfa.aer.ad, 2 PUFFS INH QID PRN for SHORTNESS OF BREATH, (Reported) Cholestyramine (with Sugar) (Cholestyramine Packet) 4 Gm Powd.pack, 2 GM PO BID PRN for DIARRHEA, (Reported) Cyclobenzaprine HCl (Cyclobenzaprine HCl) 10 Mg Tablet, 10 MG PO TID PRN for MUSCLE SPASMS, (Reported) Hydrocodone/Acetaminophen (Hydrocodone-Acetamin 10-325 mg) 1 Each Tablet, 1 TAB PO Q6H PRN for PAIN, (Reported) CAN TAKE UP TO 2 TABLETS EVERY 6 HOURS, MDD 8 TABLETS Naloxone HCl (Narcan) 4 Mg Dixie, 1 SPRAY NARES ONCE PRN for OVERDOSE, (Reported) Ondansetron HCl (Ondansetron HCl) 8 Mg Tablet, 8 MG PO TID PRN for NAUSEA OR VOMITING, (Reported) Prednisone (Prednisone) 5 Mg Tablet, 5 MG PO DAILY PRN for INFLAMMATION, (Reported) Allergies Coded Allergies: Penicillins (Verified Allergy, Severe, anaphylaxis, 01/28/21) pregabalin (Verified Allergy, Severe, ANAPHYLAXIS, 01/28/21) Cephalosporins (Verified Adverse Reaction, Severe, red man syndrome, 01/28/21) GERRY ARRIOLA MD Jan 30, 2021 10:41
== END 2021-01-30 14:50 | disposition home health service (06) | DRG 389 ==
LOC: M ED 14:40 → M ED INP 19:06 → ENRESERV 20:57 → M PCU 21:44 → M MSPAV 01-29 15:00
PROVIDERS: ADMIT Family Medicine; ATTEND Internal Medicine
DX: K56.600 Partial intestinal obstruction, unspecified as to cause (principal); E87.1 Hypo-osmolality and hyponatremia; J44.9 Chronic obstructive pulmonary disease, unspecified; G47.33 Obstructive sleep apnea (adult) (pediatric); I10 Essential (primary) hypertension; I25.10 Atherosclerotic heart disease of native coronary artery without angina pectoris; E78.00 Pure hypercholesterolemia, unspecified; M79.7 Fibromyalgia; F32.9 Major depressive disorder, single episode, unspecified; F41.9 Anxiety disorder, unspecified; R32 Unspecified urinary incontinence; K59.09 Other constipation; M81.0 Age-related osteoporosis without current pathological fracture; J30.2 Other seasonal allergic rhinitis; F17.290 Nicotine dependence, other tobacco product, uncomplicated; K21.9 Gastro-esophageal reflux disease without esophagitis; I48.0 Paroxysmal atrial fibrillation; Z95.0 Presence of cardiac pacemaker; Z98.1 Arthrodesis status; Z79.01 Long term (current) use of anticoagulants; Z79.82 Long term (current) use of aspirin; Z79.891 Long term (current) use of opiate analgesic; Z79.899 Other long term (current) drug therapy; Z88.0 Allergy status to penicillin; Z88.1 Allergy status to other antibiotic agents; Z88.8 Allergy status to other drugs, medicaments and biological substances; Z20.822 Contact with and (suspected) exposure to COVID-19; Z93.2 Ileostomy status; E86.0 Dehydration; R53.83 Other fatigue; Z86.73 Personal history of transient ischemic attack (TIA), and cerebral infarction without residual deficits

== ENCOUNTER → 2021-01-28 | Outpatient (CLI) | payer MEDICARE, OTHER ==
[~2021-01-28] MED LIST changes: +GASTROGRAFIN SOLUTION 30ML (Q9963) As Ordered ONE; +ISOVUE-370 76% 100ML VIAL As Ordered ONE
--- NOTE | 2021-01-28 12:05 | REP ---
INDICATION: GENERALIZED ABDOMINAL PAIN. COMPARISON: None TECHNIQUE: Axial contrast-enhanced images from the lung bases to the pubic symphysis using 100 cc Isovue 370 intravenous contrast material. . This CT examination was performed using the following dose reduction techniques: Automated exposure control, adjustment of mA and/or kv according to the patient's size, and the use of iterative reconstruction technique. FINDINGS: The patient is noted to be status post colectomy with ileostomy via the right anterior abdominal wall. There is an associated peristomal hernia containing mesenteric fat and multiple loops of bowel. The proximal and afferent leading bowel appears moderately dilated and fluid-filled raising while the efferent loop exiting the hernia appears collapsed. Findings are compatible with early/partial obstruction related to the hernia. No free air or ascites. Liver, spleen, pancreas, bilateral adrenal glands and kidneys are normal. Evidence for prior cholecystectomy with compensatory biliary ductal dilatation again noted. Further evaluation of the pelvis demonstrates normal bladder and evidence for prior hysterectomy. Stable infrarenal abdominal aortic aneurysm measuring 3 cm diameter. Musculoskeletal structures demonstrate degenerative changes. Lung bases demonstrate chronic changes and very subtle scattered ground-glass opacities raise the possibility of early acute atelectasis/pneumonia. IMPRESSION: 1. Findings suggest early/partial small bowel obstruction secondary to peristomal hernia which contains mesenteric fat and multiple loops of bowel. No associated free air or free fluid/ascites. No drainable collection or abscess. 2. Lung bases demonstrate subtle ground-glass opacities which may reflect early atelectasis/pneumonia. <Electronically signed by Ez Hurd > 01/28/21 [id number]
== END ==
LOC: M RAD 09:25
PROVIDERS: ATTEND Physician Assistant
DX: R10.84 Generalized abdominal pain (principal); K56.609 Unspecified intestinal obstruction, unspecified as to partial versus complete obstruction
CPT/HCPCS: 74177; Q9963; Q9967

== ENCOUNTER → 2021-02-10 | Outpatient (CLI) | payer MEDICARE, OTHER ==
[~2021-02-10] MED LIST changes: +CYCL-707 PO; +FER-15DR PO; +FLUT11IN INH; +GLUC1TAB58 PO; +LORA-243 PO; +MORP-69 PO; +NARC1SPR NARES; +ONDA8TAB10 PO; +[UNRECOGNIZED DRUG - CODE] PO
[2021-02-10 11:52] LABS: BASO # 0.1 10^3/uL (0.0-0.2); BASO % 0.7 % (0.0-1.0); EOS # 0.6 10^3/uL (0.0-0.5); EOS % 7.2 % (0.0-3.0); HEMATOCRIT 37.5 % (36.0-47.0); LYMPH # 1.8 10^3/uL (1.5-5.0); LYMPH % 20.1 % (24.0-44.0); MEAN CORPUSCULAR HEMOGLOBIN 29.2 pg (27.0-33.0); MEAN CORPUSCULAR VOLUME 91.2 fl (80.0-96.0); MONO # 0.5 10^3/uL (0.0-0.8); MONO % 5.9 % (2.0-8.0); NEUTROPHILS # 5.7 10^3/uL (1.5-8.5); PLATELET COUNT, AUTOMATED 330 10^3/uL (150-450); RED BLOOD COUNT 4.11 10^6/uL (4.00-5.40); WHITE BLOOD COUNT 8.8 10^3/uL (4.0-10.0)
[2021-02-10 12:41] LABS: ALBUMIN 2.8 GM/DL (3.2-5.2); ALT/SGPT 12 U/L (12-78); BILIRUBIN,DIRECT < 0.1 MG/DL (0.0-0.2); BILIRUBIN,TOTAL 0.2 MG/DL (0.2-1.0); BLOOD UREA NITROGEN 8 MG/DL (7-18); CALCIUM LEVEL 8.9 MG/DL (8.8-10.2); CARBON DIOXIDE LEVEL 24 MEQ/L (21-32); CHLORIDE LEVEL 100 MEQ/L (98-107); CREATININE FOR GFR 0.94 MG/DL (0.55-1.30); GLOMERULAR FILTRATION RATE > 60.0 (>45); GLUCOSE, FASTING 99 MG/DL (70-100); LIPASE 70 U/L (73-393); POTASSIUM SERUM 4.7 MEQ/L (3.5-5.1); SODIUM LEVEL 130 MEQ/L (136-145); TOTAL PROTEIN 6.1 GM/DL (6.4-8.2)
== END ==
LOC: M LAB 10:47
PROVIDERS: ATTEND Physician Assistant
DX: R10.84 Generalized abdominal pain (principal)

== ENCOUNTER 2021-02-17 06:20 | Inpatient (IN) | payer MEDICARE, OTHER ==
[~2021-02-17] VITALS: Ht 152.4 cm; Wt 57.0 kg
[2021-02-17 07:12] LABS: VENOUS BASE EXCESS -3.7 (-2.0-2.0); VENOUS HCO3 21.5 MEQ/L (23.0-27.0); VENOUS O2 SATURATION 92.9 % (60.0-80.0); VENOUS PARTIAL PRESSURE CO2 39.9 mmHg (38.0-50.0); VENOUS PARTIAL PRESSURE O2 61.9 mmHg (30.0-50.0); VENOUS STANDARD HCO3 21.3 MEQ/L; VENOUS TOTAL CO2 22.8 MEQ/L (24.0-28.0)
[2021-02-17 07:17] LABS: BASO # 0.1 10^3/uL (0.0-0.2); BASO % 0.2 % (0.0-1.0); EOS # 0.5 10^3/uL (0.0-0.5); EOS % 1.8 % (0.0-3.0); HEMATOCRIT 36.2 % (36.0-47.0); HEMOGLOBIN 11.5 g/dl (12.0-15.5); LYMPH # 1.7 10^3/uL (1.5-5.0); LYMPH % 6.8 % (24.0-44.0); MEAN CORPUSCULAR HEMOGLOBIN 28.7 pg (27.0-33.0); MEAN CORPUSCULAR HGB CONC 31.8 g/dl (32.0-36.5); MEAN CORPUSCULAR VOLUME 90.3 fl (80.0-96.0); MONO # 0.5 10^3/uL (0.0-0.8); NEUTROPHILS # 22.1 10^3/uL (1.5-8.5); NEUTROPHILS % 88.4 % (36.0-66.0); PLATELET COUNT, AUTOMATED 319 10^3/uL (150-450); RED BLOOD COUNT 4.01 10^6/uL (4.00-5.40)
[2021-02-17] MEDS ORDERED: NS 500 ML IV ONE (07:35)
--- NOTE | 2021-02-17 08:02 | ECGEPIP ---
[facility] - ED Test Date: 2021-02-17 Pat Name: DUY RODRIGUEZ Department: Room: - Gender: Female [employer]: : [id number] Requested By: BEVERLEY Steiner Order Number: [id number] Reading MD: Chau Manzano Measurements Intervals [place] Rate: 92 P: 41 CO: 150 QRS: -3 QRSD: 68 T: 24 QT: 344 QTc: 425 Interpretive Statements Normal sinus rhythm Nonspecific ST-T wave abnormalities Baseline artifact Similar to tracing done 01-28-21 Electronically Signed on 02-17-2021 8:02:49 EDT by Chau Manzano
--- NOTE | 2021-02-17 08:07 | REPVR ---
PROCEDURE INFORMATION: Exam: CT Head Without Contrast Exam date and time: 02/17/2021 6:47 AM Age: 65 years old Clinical indication: Altered mental status/memory loss; Confusion or disorientation TECHNIQUE: Imaging protocol: Computed tomography of the head without contrast. Radiation optimization: All CT scans at this facility use at least one of these dose optimization techniques: automated exposure control; mA and/or kV adjustment per patient size (includes targeted exams where dose is matched to clinical indication); or iterative reconstruction. COMPARISON: CT Head without contrast 09/19/2020 3:32 AM FINDINGS: Brain: There is no acute intracranial hemorrhage or mass effect. Mild diffuse volume loss is within the range of normal for patient age. There are small vessel ischemic changes within the periventricular and subcortical white matter, but the normal rawls/white matter delineation is maintained. Chronic lacunar infarcts involve the basal ganglia. Cerebral ventricles: No ventriculomegaly. Paranasal sinuses: Visualized sinuses are unremarkable. No fluid levels. Mastoid air cells: Visualized mastoid air cells are well aerated. Bones/joints: Unremarkable. No acute fracture. Soft tissues: Unremarkable. IMPRESSION: No acute hemorrhage or edema. Electronically signed by: Muriel Gallegos On 02/17/2021 08:07:02 AM
[2021-02-17 08:08] LABS: ALT/SGPT 15 U/L (12-78); BILIRUBIN,DIRECT 0.1 MG/DL (0.0-0.2); BILIRUBIN,TOTAL 0.3 MG/DL (0.2-1.0); BLOOD UREA NITROGEN 6 MG/DL (7-18); CALCIUM LEVEL 8.3 MG/DL (8.8-10.2); CARBON DIOXIDE LEVEL 24 MEQ/L (21-32); CHLORIDE LEVEL 93 MEQ/L (98-107); CK-MB VALUE MASS 2.2 NG/ML (<3.6); CPK CREATINE PHOSPHOKINASE 94 U/L (26-192); CREATININE FOR GFR 0.81 MG/DL (0.55-1.30); ETHYL ALCOHOL (ETHANOL) < 0.003 % (0.000-0.010); GLOMERULAR FILTRATION RATE > 60.0 (>45); GLUCOSE, FASTING 75 MG/DL (70-100); MB/CK RELATIVE INDEX 2.34 (< OR =4); POTASSIUM SERUM 5.4 MEQ/L (3.5-5.1); SODIUM LEVEL 125 MEQ/L (136-145); TOTAL PROTEIN 6.1 GM/DL (6.4-8.2); TROPONIN I < 0.02 NG/ML (< 0.10)
--- NOTE | 2021-02-17 08:39 | REP ---
INDICATION: leukocytosis. COMPARISON: Comparison chest x-ray is from January 29, 2021. TECHNIQUE: Portable upright AP chest radiograph. FINDINGS: EKG monitoring electrodes are seen. There are clips in right upper quadrant the abdomen and a bipolar pacemaker is seen in the right heart view of the left side. The heart is not enlarged. The patient is status post ventral discectomy and fusion plating in the lower cervical spine. There are subtle increased markings in the left lower lobe behind the heart and more laterally. I cannot exclude a new infiltrate. No other infiltrate is seen. Pleural angles are sharp. IMPRESSION: Possible new infiltrate left lower lobe. Pacemaker.. <Electronically signed by Delfino Cruz > 02/17/21 [id number]
[2021-02-17] MEDS ORDERED: LevoFLOXacin IV 750 MG in IV 1 EA IV ONE (09:10)
[2021-02-17] MEDS ORDERED: ISOVUE-370 76% 100ML VIAL As Ordered ONE (09:15)
[2021-02-17] MEDS ORDERED: NYST50SS SS (09:48)
[2021-02-17] MEDS ORDERED: PROM25TA12 PO (09:48)
[2021-02-17 09:51] LABS: OSMOLALITY SERUM 253 MOSM/KG (280-301)
[2021-02-17 09:58] LABS: RSV AMPLIFICATION NEGATIVE (NEGATIVE)
[2021-02-17 10:58] LABS: AMPHETAMINES LEVEL URINE NEGATIVE (NEGATIVE); BARBITURATES URINE NEGATIVE (NEGATIVE); BENZODIAZEPINES URINE NEGATIVE (NEGATIVE); CANNABINOIDS URINE NEGATIVE (NEGATIVE); COCAINE METABOLITE URINE NEGATIVE (NEGATIVE); METHADONE URINE NEGATIVE (NEGATIVE); OPIATES URINE POSITIVE (NEGATIVE); PHENCYCLIDINE URINE NEGATIVE (NEGATIVE)
--- NOTE | 2021-02-17 11:09 | REP ---
INDICATION: leukocytosis/altered mental status COMPARISON: 01/28/2021. TECHNIQUE: CT Scan of the abdomen and pelvis was performed with intravenous administration of 100 cc of Isovue 370, without oral contrast. Sagittal and coronal reconstruction images are performed. FINDINGS: Lung bases: There are stable bibasilar fibrotic changes. Liver: Normal Gallbladder: Prior cholecystectomy. Spleen: Normal. Adrenals: Normal. Pancreas: Normal. Kidneys: Normal. Small and large bowel: There has been a prior colectomy with ileostomy on the right. There is an associated parastomal hernia containing fat and bowel loops. Portions of small bowel of are [id number] dilated intermittently. Some degree of partial small bowel obstruction at the level of the parastomal hernia cannot be excluded. Free fluid: None. Abdominal aorta: There is borderline aneurysmal dilatation of the distal abdominal aorta 3 cm in maximum AP diameter. Adenopathy: None. Osseous structures: There is a stable compression deformity of T12. Pelvis: No mass. Prior hysterectomy IMPRESSION: Portions of small bowel are [id number] dilated intermittently in a nonspecific pattern. Some degree of partial small-bowel obstruction at the level of the right parastomal hernia cannot be excluded. <Electronically signed by Aston Lowe > 02/17/21 5921
[2021-02-17 11:11] LABS: OSMOLALITY URINE 92 MOSM/KG (50-1400)
--- NOTE | 2021-02-17 11:12 | REP ---
INDICATION: leukocytosis/altered mental status COMPARISON: Standard chest CT without contrast obtained 06/19/2020 TECHNIQUE: CT angiography of the chest after the intravenous administration of 75 cc Isovue 370. Attention pulmonary arteries. FINDINGS: There is excellent visualization of the pulmonary arterial vasculature. No focal filling defects are present that would be considered consistent with acute pulmonary emboli. The thoracic aorta is within normal limits. There is no pleural or pericardial effusion. Mildly enlarged lymph nodes are seen in the mediastinum and pulmonary lynn. This represents a change from the prior exam although difficult for an exact comparison since the prior exam was a noncontrast enhanced exam. The imaged osseous structures shows a grade 3 T12 anterior wedge compression deformity and although representing a change from the prior chest CT it is stable from prior CT of the abdomen and pelvis 12/19/2020. There is a healing left 8th rib fracture which is also stable. Additional healing left-sided rib fractures are seen involving the 4th 5th and 6 ribs not imaged on the prior abdomen CT of 01/28/2021 in representing a change from the prior chest CT. Evaluation of the lung narayan shows scattered patchy, ground-glass, and curvilinear densities and all having developed since the last chest CT with exception of the right middle lobe opacity which was present and actually appears somewhat improved. There is irregular pleural thickening posterior at the level of the superior segment of the left lower lobe. IMPRESSION: 1. There is adenopathy, as described above, which has developed since the last chest CT in the etiology of which is uncertain. Further workup is suggested along with clinical correlation. 2. Lung field changes as described above suspicious for subsegmental atelectatic changes, however, a patchy pneumonia cannot be ruled out. 3. Stable T12 compression deformity as described above. 4. Left-sided rib fractures as described above. 5. There is no evidence of a pulmonary embolism. <Electronically signed by Sam Marcano > 02/17/21 [id number]
[2021-02-17] MEDS ORDERED: ALBUTEROL 90 MCG/ACT 8GM HFA INHALER INH PRN (12:45)
[2021-02-17] MEDS ORDERED: ONDANSETRON 4 MG TAB PO PRN (12:45)
[2021-02-17] MEDS ORDERED: CYCLOBENZAPRINE 10MG TABLET PO PRN (12:45)
[2021-02-17] MEDS ORDERED: CHOLESTYRAMINE 4 GM PWD PKT PO PRN (12:45)
[2021-02-17] MEDS ORDERED: LevoFLOXacin IV 750 MG in IV 1 EA IV SCH (12:45)
[2021-02-17] MEDS ORDERED: zolPIDEM TARTRATE 5 MG TAB PO PRN (12:45)
[2021-02-17] MEDS ORDERED: NORCO, ANEXSIA 5/325MG TABLET (HYDROcodone/ACETAMINOPHEN) PO PRN (12:45)
[2021-02-17] MEDS ORDERED: PROMETHAZINE 25 MG TAB PO PRN (12:45)
[2021-02-17 13:04] LABS: SODIUM,RANDOM URINE < 10 MEQ/L
[2021-02-17 15:04] VITALS: BP 101/67
[2021-02-17] MEDS: NYSTATIN 500,000 U/5 ML SUSP UDC SS SCH ×2 (15:12→21:55)
[2021-02-17] MEDS: CALCIUM/VITAMIN D 500 MG TAB PO SCH (15:12)
[2021-02-17] MEDS: MULTIVITAMINS/MINERALS THERAP 1 TAB PO SCH (15:13)
[2021-02-17] MEDS: buPROPion **XL** TABLET 150MG (WELLBUTRIN XL) PO SCH (15:13)
[2021-02-17] MEDS: FOLIC ACID 1 MG TAB PO SCH (15:13)
[2021-02-17] MEDS: LORATADINE 10 MG TAB PO SCH (15:13)
[2021-02-17] MEDS: AMIODARONE 200 MG TAB (PACERONE) PO SCH (15:13)
[2021-02-17] MEDS: amLODIPine 5 MG TAB PO SCH (15:14)
[2021-02-17] MEDS: MORPHINE 15 MG SA TAB PO SCH ×2 (15:17→21:56)
[2021-02-17] MEDS ORDERED: NS 1,000 ML IV ONE (15:40)
[2021-02-17] MEDS: CO-ENZYME Q10 50 MG CAP PO SCH (15:52)
[2021-02-17] MEDS: TOLTERODINE TARTRATE 2 MG LA CAP (DETROL LA) PO SCH (15:53)
[2021-02-17] MEDS ORDERED: GABAPENTIN 300 MG CAP PO SCH ×3 (16:00→21:00)
--- NOTE | 2021-02-17 17:55 | HPEPDOC ---
[facility] Medical History & Physical Date of Admission Feb 17, 2021 Date of Service: Feb 17, 2021 Primary Care Physician: THONG MOSLEY DO Attending Physician: J LUIS GRIMES MD History and Physical CHIEF COMPLAINT: Altered mental status and generalized weakness HISTORY OF PRESENT ILLNESS: Erinn is a 65yo female w/ an extensive PMHx, most notable for colonic ischemia status post subtotal colectomy and ileostomy creation (03/28/2020), coronary artery disease, sick sinus syndrome status post pacemaker, paroxysmal atrial fibrillation (on amiodarone and Eliquis), s/p right carotid endarterectomy, small bowel obstruction, TIA, SBO, 40-year smoking history with likely obstructive lung process and chronic pulmonary nodules, hypertension, and chronic back pain/fibromyalgia/anxiety/depression/insomnia who presented to the [facility] ED on the weigher and charger of 02/17/21 via personal vehicle driven by her for the chief complaint of generalized weakness over the last few days and altered mental status over the past few hours. The patient's story began a few days ago, she began to experience decreased energy and strength with some associated abdominal pain at the site of her ostomy. The lethargy continued through yesterday evening when the patient's reports the patient was "not herself." Patient's goes on to state that she appeared unsteady while ambulating. The patient awoke at 2 AM on the morning of presentation and per the patient's appeared confused discussing the presence of children in the home who were actually not there. She then awoke again at 4 AM still confused and complaining of pain and by 530 the patient's was concerned enough that he drove her in. It is important note that the patient follows with pain medicine and takes a significant amount of pain related medications. During the course of yesterday into today, she took oral morphine sulfate around 10 PM then at 1030 she took [id number] Vicodin tablets, then at 2 AM this morning she took an Ambien, and then at 4 AM she took another two, 103 25 Vicodin tablets. Of relevant note, the patient's states patient has had 2 prior episodes with similar confusion: one was in September 2019 when she was admitted to the hospital for pneumonia, the other was a month and a half ago when she had outpatient blood work that revealed hyponatremia (serum sodium of 120) and was subsequently seen in the ED. Upon presentation the ED, the patient was somewhat hypoxic and was placed on 1 L nasal cannula supplemental oxygen. She was found to have leukocytosis with a left shift (WBC 25), anemia, hemoglobin 11.5), hyponatremia (serum sodium 125) with serum osmolality of 253, a serum potassium of 5.4 but this was actually reported to be a hemolyzed sample. Urine tox screen positive for opiates. Urinalysis was unremarkable and VBG was largely unremarkable as well. Imaging in the ED was extensive (CT head, abdomen pelvis, CTA, chest x-ray) and was remarkable for adenopathy in the mediastinum and pulmonary lynn, scattered densities in the lung narayan with the exception of the right middle lobe. The abdomen pelvis study again showed partial small bowel obstruction at the site of the parastomal hernia (see below for info on admission earlier this month). Patient was administered a one-time dose of intravenous levofloxacin and a 500 cc normal saline bolus. Patient was subsequently admitted under care of the hospitalist service for altered mental status secondary to possible community-acquired pneumonia versus excess TRAY SETTER depressing home medications. Of note, the patient was admitted from predominantly for partial sm all bowel obstruction secondary to intermittent parastomal hernia. The patient was accompanied by her mEiliano in the ED. Emiliano is the patient's healthcare proxy and power of civil litigation attorney and his contact number is [phone]. Patient verbally confirms in the ED that she is a full code. PAST MEDICAL HISTORY: Colonic ischemia status post subtotal colectomy and ileostomy creation, 03/28/2020 (Dr. Do); with revision on 05/09/[address] Johnson; has follow- up with both Dr. Gutierrez and Dr. Do as outpatient Paroxysmal atrial fibrillation currently on amiodarone and Eliquis; follows with Dr. Schulte as outpatient Partial small bowel obstruction secondary to intermittent parastomal hernia that was "resolved" per documentation earlier this month for admission between 40-year cigarette smoker with likely obstructive process and possible ZITA; patient had a remarkable home NOC ox study and is waiting to do a formal sleep lab study Coronary artery disease sick sinus syndrome status post pacemaker Hypertension Dyslipidemia Prior TIA Chronic back and neck pain status post discectomy and fusion with plate in lower C-spine; follows with [facility] pain management (Ele Caballero and Dr. Singh) Osteoporosis Osteoarthritis Previous episode of hyponatremia, December 2020 History of right carotid endarterectomy Fibromyalgia Depression Anxiety Insomnia PAST SURGICAL HISTORY: Right carotid endarterectomy Lower cervical spine discectomy and plate fusion Subtotal colectomy and ileostomy creation on 03/28/2020 with revision on 05/09/2020 SOCIAL HISTORY: Patient is and lives with her Emiliano. They have 1 grown son who is 39 and lives in [facility]. 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 Patient is a 40-year cigarette smoker averaging half a pack per day ([id number] history); she reportedly had quit for a bit over the past few months but continues to vape and is now for the past 3 weeks resumed smoking. Patient has not had any alcohol in the past few years and prior to that only drink very rarely on social occasions Patient denies any current or former illegal/IV drug use FAMILY HISTORY: Father: Still living; history of kidney cancer Mother: ; history of pancreatic cancer and mesothelioma Older brother: History of mesothelioma ALLERGIES: Please see below. REVIEW OF SYSTEMS: CONSTITUTIONAL: Reports generalized weakness and lethargy over the past 3 days; denies any recent fever, chills, night sweats, or unintentional change in weight HEENT: Denies any diplopia or blurry vision CARDIOVASCULAR: Denies any chest pain, chest pressure, or palpitations RESPIRATORY: Denies any shortness of breath, increased work of breathing, cough, or pleuritic chest pain GASTROINTESTINAL: Reports some abdominal pain around the ostomy site over the past few days that is a little bit improved currently. Denies any recent nausea, vomiting, increased or decreased output from baseline from her ostomy GENITOURINARY: Denies any dysuria, hematuria, suprapubic pain, or flank pain MUSCULOSKELETAL: Reports generalized muscle weakness over the past few days NEUROLOGICAL: Reports some unsteadiness of gait last evening and lethargy over the past few days with AMS as detailed in HPI. Denies any numbness or paresthesias of extremities HEMATOLOGIC: Denies any recent easy bleeding or bruising LYMPHATIC: Denies any new lumps or bumps HOME MEDICATIONS: Please see below. PHYSICAL EXAMINATION: VITAL SIGNS: Please see below GENERAL APPEARANCE: Elderly female lying in emergency department bed. She is moderately somnolent but easily arousable to vocal stimuli. On supplemental oxygen. Company by . HEENT: Normocephalic, atraumatic. Noninjected, anicteric sclera. Wearing eyeglasses. No significant conjunctival pallor. Pupils are slightly dilated but are equal round and reactive to light and accommodation. EOMI. CARDIOVASCULAR: Regular rate, regular rhythm. There is a 2/6 systolic, machine like murmur most prominent over the right second parasternal intercostal space. No rubs are appreciated. LUNGS: Moderately diminished breath sounds throughout with decreased tidal volume. There are bilateral crackles appreciate upon inspiration from the mid lung area moving inferiorly to the bases. Breathing on 1 L nasal cannula supplemental oxygen. Speaking full sentences. No accessory muscle use noted. ABDOMEN: There is an ostomy bag present in the right lower abdominal quadrant. The skin around ostomy site is not erythematous, indurated, and has no active drainage. There are some well-healed surgical scars over the abdomen. Upon auscultation there are some scattered higher pitched bowel sounds. No guarding or rigidity. EXTREMITIES: Bilateral lower extremities are free of pitting edema. 2+ radial and posterior tibial pulses bilaterally. NEUROLOGICAL: Patient is somewhat somnolent throughout the exam but is easily arousable to vocal stimuli. She is oriented to person and place. She is able to accurately state the month and year but struggles with the day the week and the numerical day of the week. Short-term memory recall intact. No gross focal neurologic deficits are appreciated. Nondysarthric speech. PSYCHIATRIC: Somewhat subdued mood at times during exam. Affect appears appropriate. LABORATORY DATA: Please see below. IMAGING: CT head without contrast, 02/17/2021 FINDINGS: Brain: There is no acute intracranial hemorrhage or mass effect. Mild diffuse volume loss is within the range of normal for patient age. There are small vessel ischemic changes within the periventricular and subcortical white matter, but the normal rawls/white matter delineation is maintained. Chronic lacunar infarcts involve the basal ganglia. Cerebral ventricles: No ventriculomegaly. Paranasal sinuses: Visualized sinuses are unremarkable. No fluid levels. Mastoid air cells: Visualized mastoid air cells are well aerated. Bones/joints: Unremarkable. No acute fracture. Soft tissues: Unremarkable. IMPRESSION: No acute hemorrhage or edema. Portable chest x-ray, 02/17/2021 FINDINGS: EKG monitoring electrodes are seen. There are clips in right upper quadrant the abdomen and a bipolar pacemaker is seen in the right heart view of the left side. The heart is not enlarged. The patient is status post ventral discectomy and fusion plating in the lower cervical spine. There are subtle increased markings in the left lower lobe behind the heart and more laterally. I cannot exclude a new infiltrate. No other infiltrate is seen. Pleural angles are sharp. IMPRESSION: Possible new infiltrate left lower lobe. Pacemaker. CT abdomen pelvis with IV contrast, 02/17/2021 FINDINGS: Lung bases: There are stable bibasilar fibrotic changes. Liver: Normal Gallbladder: Prior cholecystectomy. Spleen: Normal. Adrenals: Normal. Pancreas: Normal. Kidneys: Normal. Small and large bowel: There has been a prior colectomy with ileostomy on the right. There is an associated parastomal hernia containing fat and bowel loops. Portions of small bowel of are [id number] dilated intermittently. Some degree of partial small bowel obstruction at the level of the parastomal hernia cannot be excluded. Free fluid: None. Abdominal aorta: There is borderline aneurysmal dilatation of the distal abdominal aorta 3 cm in maximum AP diameter. Adenopathy: None. Osseous structures: There is a stable compression deformity of T12. Pelvis: No mass. Prior hysterectomy IMPRESSION: Portions of small bowel are coqq-rq-ywivcmigco dilated intermittently in a nonspecific pattern. Some degree of partial small-bowel obstruction at the level of the right parastomal hernia cannot be excluded. CT angiography, 02/17/2021 FINDINGS: There is excellent visualization of the pulmonary arterial vasculature. No focal filling defects are present that would be considered consistent with acute pulmonary emboli. The thoracic aorta is within normal limits. There is no pleural or pericardial effusion. Mildly enlarged lymph nodes are seen in the mediastinum and pulmonary lynn. This represents a change from the prior exam although difficult for an exact comparison since the prior exam was a noncontrast enhanced exam. The imaged osseous structures shows a grade 3 T12 anterior wedge compression deformity and although representing a change from the prior chest CT it is stable from prior CT of the abdomen and pelvis 12/19/2020. There is a healing left 8th rib fracture which is also stable. Additional healing left-sided rib fractures are seen involving the 4th 5th and 6 ribs not imaged on the prior abdomen CT of 01/28/2021 in representing a change from the prior chest CT. Evaluation of the lung narayan shows scattered patchy, ground-glass, and curvilinear densities and all having developed since the last chest CT with exception of the right middle lobe opacity which was present and actually appears somewhat improved. There is irregular pleural thickening posterior at the level of the superior segment of the left lower lobe. IMPRESSION: 1. There is adenopathy, as described above, which has developed since the last chest CT in the etiology of which is uncertain. Further workup is suggested along with clinical correlation. 2. Lung field changes as described above suspicious for subsegmental atelectatic changes, however, a patchy pneumonia cannot be ruled out. 3. Stable T12 compression deformity as described above. 4. Left-sided rib fractures as described above. 5. There is no evidence of a pulmonary embolism. MICROBIOLOGY: Please see below. ASSESSMENT & PLAN: This is a 65yo female w/ extensive hx most notable for colonic ischemia status post subtotal colectomy and ileostomy, history of small bowel obstruction, paroxysmal atrial fibrillation (on Eliquis), sick sinus syndrome status post pacemaker, coronary artery disease, HTN, right carotid endarterectomy, prior TIA, 40+ year smoker with presumed COPD and possible ZITA, chronic pain/fibrom yalgia/anxiety/depression, and GERD, who presented to the ED on 02/17/2021 c/o generalized weakness and lethargy over the past 3 days with altered mental status over the past few hours. She was found to have diffuse scattered pulmonary densities with impression unable to rule out pneumonia, as well as significant leukocytosis and hyponatremia. Patient was subsequently admitted for leukocytosis with secondary to possible CAP, altered mental status, and hyponatremia. #Altered mental status, likely multifactorial -Per patient's , she was confused and hallucinating early on morning of presentation; this episode was similar to an episode a month and a half ago when she was hyponatremic as well as 16 months ago when she had pneumonia -Etiology: Likely multifactorial with leading possibilities at this time of possible pneumonia (see assessment below) versus TRAY SETTER depressing home medications -Patient takes an extensive amount of TRAY SETTER depressing medications at home and follows as outpatient with pain medicine -oral morphine at 10 PM yesterday, 4 tablets of Vicodin (79669 per tab spread out over 2 tablets at 10:30 PM and this morning at 4 AM), Ambien to 2 AM -We have stopped her home zolpidem upon admission and have decreased her scheduled evening gabapentin dose to 300 mg. -CT head without contrast was unremarkable -Fall risk precautions and assisted ambulation only ordered -VBG in the ED was relatively unremarkable -Tach screen was positive for opiates #Scattered lung field densities most prominent in left lower lobe with leukocytosis -Patient presented with an episode of altered mental status earlier this morning with leukocytosis and "scattered patchy, curvilinear densities" in all lung narayan except right middle lobe with inabilityl -impression could not to rule out pneumonia on either portable chest x-ray or CTA -There is also pulmonary and mediastinal lymphadenopathy appreciated on CTA -Patient was getting mildly hypoxic in the ED but this quickly resolved with 1 L nasal cannula; patient does not use home oxygen -Patient was diagnosed with pneumonia and admitted most recently in September 2019 -she follows with Dr. Gilbert of pulmonology service as outpatient for chronic pulmonary nodules and is currently awaiting a home sleep study for possible ZITA -There is also high suspicion for an obstructive lung process as patient has smoked for 40 years ([id number] history); patient declined nicotine patch -Procalcitonin, sputum culture ordered -IV fluids being administered -Due to patient's extensive antibiotic allergies, scheduled IV levofloxacin ordered; patient is status post IV Levaquin 1 dose in ED -Atypical bacterial pneumonia etiologies ordered -Incentive spirometry and Acapella ordered -Home Singulair continued #Leukocytosis -Patient presented with a white cell count of 25,000 with a left shift. She was afebrile, not tachypneic or tachycardic, and normotensive -Receiving IV fluids -Follow-up repeat blood count -Urinalysis unremarkable with pending blood cultures and sputum culture #S/p sub-total colectomy and ileostomy creation with revision in the past year -Patient has an extensive gastrointestinal history marked by colonic ischemia requiring the ostomy; partial SBO earlier this month 2/2 intermittent parastomal hernia -CT abdomen pelvis in the ED showed "some degree of partial small bowel obs truction" but the patient's abdominal exam was negative. -ED provider discussed abdomen pelvis image study with on-call surgeon: No acute process or surgical intervention is warranted at this time #Dyslipidemia -Home rosuvastatin continued #Depression/anxiety/fibromyalgia/chronic pain/insomnia -Home duloxetine, bupropion, gabapentin (home evening dose cut to 300 mg), Celebrex, [place] prn, po morphine jayjay continued #Coronary artery disease -Patient is status post right carotid enterectomy #HTN -Home carvedilol and amlodipine continued #Paroxysmal atrial fibrillation -Home amiodarone and Eliquis continued #DVT prophylaxis: Home Eliquis continue CODE STATUS: Full code Disposition: Admit to medical surgical floor for further evaluation of altered mental status with possible pneumonia; expect 1-2 midnight stay. Vital Signs Vital Signs Date Time Temp Pulse Resp B/P (MAP) Pulse Ox O2 Delivery O2 Flow Rate FiO2 02/17/21 15:17 16 02/17/21 15:14 91 105/63 02/17/21 15:04 97.9 92 Room Air 02/17/21 14:00 1.0 Laboratory Data Labs 24H Laboratory Tests 2 02/17/21 07:01: Immature Granulocyte % (Auto) 0.8, Neutrophils (%) (Auto) 88.4H, Lymphocytes (%) (Auto) 6.8L, Monocytes (%) (Auto) 2.0, Eosinophils (%) (Auto) 1.8, Basophils (%) (Auto) 0.2, Neutrophils # (Auto) 22.1H, Lymphocytes # (Auto) 1.7, Monocytes # (Auto) 0.5, Eosinophils # (Auto) 0.5, Basophils # (Auto) 0.1, Nucleated Red Blood Cells % (auto) 0.0, Blood Gas Bicarbonate Standard 21.3, Venous Blood pH 7.350, Venous Blood Partial Pressure CO2 39.9, Venous Blood Partial Pressure O2 61.9H, Venous Blood Total Carbon Dioxide 22.8L, Venous Blood HCO3 21.5L, Venous Blood Oxygen Saturation 92.9H, Venous Blood Base Excess -3.7L, Anion Gap 8, Glomerular Filtration Rate > 60.0, Osmolality 253L, Calcium Level 8.3L, Total Bilirubin 0.3, Direct Bilirubin 0.1, Aspartate Amino Transf (AST/SGOT) 37, Alanine Aminotransferase (ALT/SGPT) 15, Alkaline Phosphatase 102, Ammonia 31, Total Creatine Kinase 94, Creatine Kinase MB 2.2, Creatine Kinase MB Relative Index 2.34, Troponin I < 0.02, Total Protein 6.1L, Albumin 3.0L, Albumin/Globulin Ratio 1.0L, Thyroid Stimulating Hormone (TSH) 3.060, Ethyl Alcohol Level < 0.003 02/17/21 07:10: Bedside Glucose (Misc Panel) 90 02/17/21 09:10: Coronavirus (COVID-19)(PCR) NEGATIVE, Influenza Type A (RT-PCR) NEGATIVE, Influenza Type B (RT-PCR) NEGATIVE, Respiratory Syncytial Virus (PCR) NEGATIVE 02/17/21 10:15: Urine Color STRAW, Urine Appearance CLEAR, Urine pH 6.0, Urine Specific Dexter 1.003, Urine Protein NEGATIVE, Urine Glucose (UA) NEGATIVE, Urine Ketones NEGATIVE, Urine Blood NEGATIVE, Urine Nitrite NEGATIVE, Urine Bilirubin NEGATIVE, Urine Urobilinogen 0.2, Urine Leukocyte Esterase NEGATIVE, Urine WBC (Auto) 0, Urine RBC (Auto) 0, Urine Hyaline Casts (Auto) 0, Urine Bacteria (Auto) NEGATIVE, Urine Squamous Epithelial Cells 0, Urine Sperm (Auto) , Urine Opiates Screen POSITIVEH, Urine Methadone Screen NEGATIVE, Urine Barbiturates Screen NEGATIVE, Urine Phencyclidine Screen NEGATIVE, Urine Amphetamines Screen NEGATIVE, Urine Benzodiazepines Screen NEGATIVE, Urine Cocaine Metabolite Screen NEGATIVE, Urine Cannabinoids Screen NEGATIVE 02/17/21 10:16: Urine Osmolality 92, Urine Random Sodium < 10 CBC/BMP Laboratory Tests 02/17/21 07:01 Home Medications Scheduled Amiodarone HCl (Amiodarone HCl) 200 Mg Tablet, 200 MG PO DAILY Amlodipine Besylate (Amlodipine Besylate) 5 Mg Tablet, 5 MG PO DAILY Apixaban (Eliquis) 5 Mg Tablet, 5 MG PO BID Aspirin (Aspirin) 81 Mg Tab.chew, 81 MG PO QHS Bupropion HCl (Wellbutrin Xl) 150 Mg Tab.er.24h, 150 MG PO DAILY Calcium Carbonate/Vitamin D3 (Liquid Calcium with Vitamin D) 1 Each Capsule, 1 CAP PO DAILY Carvedilol (Carvedilol) 3.125 Mg Tablet, 3.125 MG PO BID Celecoxib (Celebrex) 100 Mg Capsule, 100 MG PO BID Cholecalciferol (Vitamin D3) (Vitamin D3) 25 Mcg Tablet, 25 MCG PO BID Duloxetine Hcl (Duloxetine HCl) 30 Mg Capsule.dr, 60 MG PO QAM Duloxetine Hcl (Duloxetine HCl) 30 Mg Capsule.dr, 30 MG PO QHS Esomeprazole Magnesium (Nexium) 40 Mg Capsule.dr, 40 MG PO BID Ferrous Sulfate (Shane-in-Angela) 15 Mg/1 Ml Drops, 15 MG PO DAILY Fluticasone Propionate (Flovent Hfa) 110 Mcg/Act Aer.w.adap, 2 PUFF INH BID Folic Acid (Folic Acid) 1 Mg Tablet, 1 MG PO DAILY Gabapentin (Gabapentin) 300 Mg Capsule, 300 MG PO BID MORNING AND EVENING Gabapentin (Gabapentin) 300 Mg Capsule, 900 MG PO QHS Glucosamine/D3/Boswellia Sheila (Osteo Bi-Flex Tablet) 1 Each Tablet, 1 TAB PO BID L.acidoph/L.bulg/B.bif/S.therm (Jaquelin-Bid Caplet) 1 Each Tablet, 1 TAB PO TID Loratadine (Loratadine) 10 Mg Tablet, 10 MG PO DAILY Montelukast Sodium (Singulair) 10 Mg Tablet, 10 MG PO QHS Morphine Sulfate (Morphine Sulfate ER) 15 Mg Tablet.er, 15 MG PO Q8H Multivitamin,Therapeutic (Thera-Tabs) 1 Each Tablet, 1 TAB PO DAILY Nystatin (Nystatin Oral Susp) 100,000 Unit/1 Ml Oral.susp, 5 ML SS Q8H Rosuvastatin Calcium (Rosuvastatin Calcium) 10 Mg Tablet, 10 MG PO QHS Tolterodine Tartrate (Detrol LA) 4 Mg Cap.er.24h, 4 MG PO DAILY Ubidecarenone (Co Q-10) 200 Mg Capsule, 100 MG PO DAILY Scheduled PRN Albuterol Sulfate (Proair Hfa) 8.5 Gm Hfa.aer.ad, 2 PUFFS INH QID PRN for SHORTNESS OF BREATH Cholestyramine (with Sugar) (Cholestyramine Packet) 4 Gm Powd.pack, 2 GM PO BID PRN for DIARRHEA Cyclobenzaprine HCl (Cyclobenzaprine HCl) 10 Mg Tablet, 10 MG PO TID PRN for MUSCLE SPASMS Hydrocodone/Acetaminophen (Hydrocodone-Acetamin 10-325 mg) 1 Each Tablet, 1 TAB PO Q6H PRN for PAIN CAN TAKE UP TO 2 TABLETS EVERY 6 HOURS, MDD 8 TABLETS Naloxone HCl (Narcan) 4 Mg Mcdonald, 1 SPRAY NARES ONCE PRN for OVERDOSE Ondansetron HCl (Ondansetron HCl) 8 Mg Tablet, 8 MG PO TID PRN for NAUSEA OR VOMITING Prednisone (Prednisone) 5 Mg Tablet, 5 MG PO DAILY PRN for INFLAMMATION Promethazine HCl (Promethazine HCl) 25 Mg Tablet, 25 MG PO Q6H PRN for NAUSEA OR VOMITING Zolpidem Tartrate (Zolpidem Tartrate) 5 Mg Tablet, 5 MG PO QHS PRN for SLEEP Allergies Coded Allergies: Penicillins (Verified Allergy, Severe, anaphylaxis, 01/28/21) pregabalin (Verified Allergy, Severe, ANAPHYLAXIS, 01/28/21) Cephalosporins (Verified Adverse Reaction, Severe, red man syndrome, 01/28/21) GME ATTESTATION My faculty preceptor for this patient encounter was physically present during the encounter and was fully available. All aspects of the patient interview, examination, medical decision making process, and medical care plan development were reviewed and approved by the faculty preceptor. The faculty preceptor is aware and concurs with the plan as stated in the body of this note and will attest to such by his/her cosignature. ATTENDING NOTE Ms. Newberry whom I know well, returned to the ED today with encephalopathy and generally feeling unwell and was found to have significant leukocytosis and probable PNA in chest imaging and is therefore admitted for infectious workup and management. Her encephalopathy however in addition to metabolic causes was likely also precipitated by polypharmacy given the history of multiple back to back doses of centrally acting medications the night prior to presentation. I personally examined her and discussed findings, studies and plan as described by the resident physician above. A-FIB/CHADSVASC A-FIB History Current/History of A-Fib/PAF?: Yes Current PO Anticoag Therapy: Yes LALO LE D.O. Feb 17, 2021 17:54 J LUIS GRIMES MD Feb 17, 2021 23:44
[2021-02-17] MEDS: LACTOBACILLUS ACIDOPHILUS CAP (BACID) PO SCH (18:10)
[2021-02-17 18:21] LABS: BLOOD UREA NITROGEN 3 MG/DL (7-18); C REACTIVE PROTEIN QUANTITATIV 4.53 MG/DL (0.00-0.30); CARBON DIOXIDE LEVEL 27 MEQ/L (21-32); CHLORIDE LEVEL 104 MEQ/L (98-107); CREATININE FOR GFR 0.65 MG/DL (0.55-1.30); GLOMERULAR FILTRATION RATE > 60.0 (>45); GLUCOSE, FASTING 86 MG/DL (70-100); POTASSIUM SERUM 4.3 MEQ/L (3.5-5.1); SODIUM LEVEL 136 MEQ/L (136-145)
[2021-02-17 18:35] LABS: ERYTHROCYTE SEDIMENTATION RATE 32 mm/hr (0-30)
[2021-02-17] MEDS: FLUTICASONE HFA 110 MCG 12 GM INHALER (FLOVENT) INH SCH (19:46)
[2021-02-17] MEDS ORDERED: ROSUVASTATIN 10 MG TAB (CRESTOR) PO SCH (21:00)
[2021-02-17] MEDS ORDERED: ASPIRIN 81 MG CHEW TABLET PO SCH (21:00)
[2021-02-17] MEDS ORDERED: DULoxetine 30 MG CAP (CYMBALTA) PO SCH (21:00)
[2021-02-17] MEDS ORDERED: MONTELUKAST 10 MG TAB PO SCH (21:00)
[2021-02-17] MEDS: VITAMIN D 1,000 INTERNATIONAL UNITS TABLET PO SCH (21:53)
[2021-02-17] MEDS: APIXABAN 5 MG TAB (ELIQUIS) PO SCH (21:53)
[2021-02-17] MEDS: CARVedilol 3.125 MG TAB PO SCH (21:54)
[2021-02-17] MEDS: CelecoXIB (CeleBREX) 100 MG CAP PO SCH (21:54)
[2021-02-17] MEDS: PANTOPRAZOLE 40MG TAB (PROTONIX) PO SCH (21:55)
[2021-02-17] MEDS: GABAPENTIN 300 MG CAP PO SCH (21:55)
[2021-02-17 22:00] VITALS: BP 118/64
[2021-02-18 06:00] VITALS: BP 139/63
[2021-02-18] MEDS: NYSTATIN 500,000 U/5 ML SUSP UDC SS SCH ×2 (06:02→13:48)
[2021-02-18] MEDS: MORPHINE 15 MG SA TAB PO SCH ×2 (06:03→13:49)
[2021-02-18 06:41] LABS: BASO % 0.4 % (0.0-1.0); EOS # 0.3 10^3/uL (0.0-0.5); EOS % 4.1 % (0.0-3.0); HEMATOCRIT 35.9 % (36.0-47.0); HEMOGLOBIN 11.2 g/dl (12.0-15.5); LYMPH # 1.9 10^3/uL (1.5-5.0); LYMPH % 27.2 % (24.0-44.0); MEAN CORPUSCULAR HEMOGLOBIN 28.7 pg (27.0-33.0); MEAN CORPUSCULAR HGB CONC 31.2 g/dl (32.0-36.5); MEAN CORPUSCULAR VOLUME 92.1 fl (80.0-96.0); MONO # 0.4 10^3/uL (0.0-0.8); MONO % 6.3 % (2.0-8.0); NEUTROPHILS # 4.2 10^3/uL (1.5-8.5); NEUTROPHILS % 61.3 % (36.0-66.0); PLATELET COUNT, AUTOMATED 276 10^3/uL (150-450); WHITE BLOOD COUNT 6.8 10^3/uL (4.0-10.0)
[2021-02-18] MEDS: FLUTICASONE HFA 110 MCG 12 GM INHALER (FLOVENT) INH SCH (07:28)
[2021-02-18 08:05] LABS: ALBUMIN 2.4 GM/DL (3.2-5.2); ALT/SGPT 12 U/L (12-78); BILIRUBIN,TOTAL 0.1 MG/DL (0.2-1.0); BLOOD UREA NITROGEN 4 MG/DL (7-18); CALCIUM LEVEL 8.2 MG/DL (8.8-10.2); CARBON DIOXIDE LEVEL 29 MEQ/L (21-32); CHLORIDE LEVEL 109 MEQ/L (98-107); CREATININE FOR GFR 0.62 MG/DL (0.55-1.30); GLOMERULAR FILTRATION RATE > 60.0 (>45); GLUCOSE, FASTING 79 MG/DL (70-100); MAGNESIUM LEVEL 2.2 MG/DL (1.8-2.4); POTASSIUM SERUM 4.4 MEQ/L (3.5-5.1); SODIUM LEVEL 142 MEQ/L (136-145); TOTAL PROTEIN 5.2 GM/DL (6.4-8.2)
[2021-02-18] MEDS ORDERED: DULoxetine 30 MG CAP (CYMBALTA) PO SCH (09:00)
[2021-02-18] MEDS ORDERED: LevoFLOXacin IV 750 MG in IV 1 EA IV SCH (09:00)
[2021-02-18] MEDS ORDERED: FERROUS SULFATE 325MG TAB PO SCH (09:00)
[2021-02-18] MEDS: CO-ENZYME Q10 50 MG CAP PO SCH (09:03)
[2021-02-18] MEDS: CALCIUM/VITAMIN D 500 MG TAB PO SCH (09:03)
[2021-02-18] MEDS: buPROPion **XL** TABLET 150MG (WELLBUTRIN XL) PO SCH (09:03)
[2021-02-18] MEDS: MULTIVITAMINS/MINERALS THERAP 1 TAB PO SCH (09:03)
[2021-02-18] MEDS: VITAMIN D 1,000 INTERNATIONAL UNITS TABLET PO SCH (09:04)
[2021-02-18] MEDS: TOLTERODINE TARTRATE 2 MG LA CAP (DETROL LA) PO SCH (09:04)
[2021-02-18] MEDS: PANTOPRAZOLE 40MG TAB (PROTONIX) PO SCH (09:04)
[2021-02-18] MEDS: amLODIPine 5 MG TAB PO SCH (09:04)
[2021-02-18] MEDS: AMIODARONE 200 MG TAB (PACERONE) PO SCH (09:04)
[2021-02-18] MEDS: LACTOBACILLUS ACIDOPHILUS CAP (BACID) PO SCH ×2 (09:04→13:10)
[2021-02-18] MEDS: CelecoXIB (CeleBREX) 100 MG CAP PO SCH (09:04)
[2021-02-18 09:05] VITALS: BP 139/63
[2021-02-18] MEDS: FOLIC ACID 1 MG TAB PO SCH (09:05)
[2021-02-18] MEDS: LORATADINE 10 MG TAB PO SCH (09:05)
[2021-02-18] MEDS: CARVedilol 3.125 MG TAB PO SCH (09:05)
[2021-02-18] MEDS: APIXABAN 5 MG TAB (ELIQUIS) PO SCH (09:05)
[2021-02-18] MEDS: GABAPENTIN 300 MG CAP PO SCH ×2 (09:05→16:08)
[2021-02-18] MEDS ORDERED: GABA-282 PO (12:24)
[2021-02-18] MEDS ORDERED: LEVO750T13 PO (13:57)
--- NOTE | 2021-02-18 19:19 | DS.PDOC ---
Discharge Summary General Date of Admission Feb 17, 2021 at 12:43 Date of Discharge Thursday, February 18, 2021 Primary Care Physician: THONG MOSLEY DO Attending Physician: J LUIS GRIMES MD Discharge Summary PROCEDURES PERFORMED DURING STAY: None ADMITTING DIAGNOSES: -Altered mental status, likely multifactorial -Scattered lung field densities most prominent in left lower lobe with leukocytosis -Leukocytosis -Status post subtotal colectomy and ileostomy creation with revision in the past year -Dyslipidemia -Depression -Anxiety -Fibromyalgia -Chronic pain -Insomnia -Coronary artery disease status post right carotid enterectomy -Hypertension -Paroxysmal atrial fibrillation DISCHARGE DIAGNOSES: -Altered mental status likely multifactorial but greatest contribution from effect 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 HISTORY OF PRESENT ILLNESS: Erinn is a 65yo female w/ an extensive PMHx, most notable for colonic ischemia status post subtotal colectomy and ileostomy creation (03/28/2020), coronary artery disease, sick sinus syndrome status post pacemaker, paroxysmal atrial fibrillation (on amiodarone and Eliquis), s/p right carotid endarterectomy, small bowel obstruction, TIA, SBO, 40-year smoking history with likely obstructive lung process and chronic pulmonary nodules, hypertension, and ch ronic back pain/fibromyalgia/anxiety/depression/insomnia who presented to the [facility] ED on the professional system administrator of 02/17/21 via personal vehicle driven by her for the chief complaint of generalized weakness over the last few days and altered mental status over the past few hours. The patient's story began a few days ago, she began to experience decreased energy and strength with some associated abdominal pain at the site of her ostomy. The lethargy continued through yesterday evening when the patient's reports the patient was "not herself." Patient's goes on to state that she appeared unsteady while ambulating. The patient awoke at 2 AM on the morning of presentation and per the patient's appeared confused discussing the presence of children in the home who were actually not there. She then awoke again at 4 AM still confused and complaining of pain and by 530 the patient's was concerned enough that he drove her in. It is important note that the patient follows with pain medicine and takes a significant amount of pain related medications. During the course of yesterday into today, she took oral morphine sulfate around 10 PM then at 1030 she took [id number] Vicodin tablets, then at 2 AM this morning she took an Ambien, and then at 4 AM she took another two, 103 25 Vicodin tablets. Of relevant note, the patient's states patient has had 2 prior episodes with similar confusion: one was in September 2019 when she was admitted to the hospital for pneumonia, the other was a month and a half ago when she had outpatient blood work that revealed hyponatremia (serum sodium of 120) and was subsequently seen in the ED. Upon presentation the ED, the patient was somewhat hypoxic and was placed on 1 L nasal cannula supplemental oxygen. She was found to have leukocytosis with a left shift (WBC 25), anemia, hemoglobin 11.5), hyponatremia (serum sodium 125) with serum osmolality of 253, a serum potassium of 5.4 but this was actually reported to be a hemolyzed sample. Urine tox screen positive for opiates. Urinalysis was unremarkable and VBG was largely unremarkable as well. Imaging in the ED was extensive (CT head, abdomen pelvis, CTA, chest x-ray) and was remarkable for adenopathy in the mediastinum and pulmonary lynn, scattered densities in the lung narayan with the exception of the right middle lobe. The abdomen pelvis study again showed partial small bowel obstruction at the site of the parastomal hernia (see below for info on admission earlier this month). Patient was administered a one-time dose of intravenous levofloxacin and a 500 cc normal saline bolus. Patient was subsequently admitted under care of the hospitalist service for altered mental status secondary to possible community-acquired pneumonia versus excess [employer] HEL[employer] depressing home medications. Of note, the patient was admitted from 02/21/12/17 predominantly for partial small bowel obstruction secondary to intermittent parastomal hernia. The patient was accompanied by her Emiliano in the ED. Emiliano is the patient's healthcare proxy and power of divorce attorney and his contact number is [phone]. Patient verbally confirms in the ED that she is a full code. HOSPITAL COURSE: Upon admission, patient was started on maintenance normal saline in the setting of leukocytosis with bilateral lung opacities. A procalcitonin was ordered and returned unremarkable. From day 1 to day 2, the patient's leukocytosis significantly changed and returned to normal limits; going from 25 white count down to 6. Also in the initial presenting blood work, patient was hyponatremic and hyperkalemic. On discussing these findings with the ED provider, it was believed that potentially this metabolic panel may have been hemolyzed. A repeat metabolic panel later on the day of admission showed complete resolution of both serum sodium and serum potassium after simply just starting maintenance normal saline. In fact, sodium went from 1 25-1 36 and then day 2 labs showed serum sodium of 142. There were no significant focal deficits appreciate any point during admission other than her presenting somnolence. The somnolence significantly improved upon day 2. Systemic inflammatory markers were mildly elevated and the patient no longer was requiring supplemental oxygen. With her significant improvement both clinically and lab pickard, and after being evaluated by physical therapy who deemed the patient safe for discharge continuing to ambulate with her home walker, patient medically stable and subsequently discharged. The intravenous levofloxacin started on admission was subsequently stopped after 2 days of dosing and a 3-day oral prescription was sent to patient's pharmacy to complete a total 5-day dosing should the patient have an underlying pneumonia. Ultimately, the patient's presenting altered mental status and somnolence was most likely the result of multiple [employer]PER[employer] HEL[employer] depressing medications she takes at home. Upon admission, we stopped her zolpidem and decreased her evening gabapentin from 900-300. Upon discharge, we advised the patient to only take the zolpidem when she truly felt she needed to. She already took 300 mg gabapentin twice a day during the day, so upon discharge, a prescription for 300 mg gabapentin 3 times a day dosing was sent and her evening 900 mg dose was stopped. Also advised the patient speak with her pain management providers as to why she needs concurrent scheduled morphine sulfate oral medication with as needed hydrocodone acetaminophen. On the day of her presentation, within a 4.5-hour period from 10 PM to 6:30 AM, she took 150 mg oral dose of magnesium sulfate, 2 tablets of 103 25 [place] x2, and zolpidem. DISCHARGE MEDICATIONS: Please see below. ALLERGIES: Please see below. PHYSICAL EXAMINATION ON DISCHARGE: VITAL SIGNS: Please see below. GENERAL APPEARANCE: Elderly female lying in bed. She is much more alert today versus admission exam yesterday. She is now breathing on room air. HEENT: Normocephalic, atraumatic. Noninjected, anicteric sclera. Wearing eyeglasses. No significant conjunctival pallor. Pupils are remain slightly dilated but are equal round and reactive to light and accommodation. EOMI. CARDIOVASCULAR: Regular rate, regular rhythm. There remains a 2/6 systolic, machinelike murmur most prominent over the right second parasternal intercostal space. No rubs appreciated. LUNGS: Decreased tidal volume mild bibasilar inspiratory crackles that are improved versus yesterday's exam. Breathing room air. No accessory muscle use. ABDOMEN: Ostomy bag present in the right lower abdominal quadrant; no erythema, induration, or discharge of skin surrounding ostomy. Well-healed surgical scars over the abdomen. No guarding or rigidity. Normoactive bowel sounds throughout. EXTREMITIES: Bilateral lower extremities are free of pitting edema. 2+ radial and posterior tibial pulses bilaterally. NEUROLOGICAL: Patient is significantly more alert today than she was yesterday at time of admission. She was responding appropriately to all questions commands with good eye contact and is no longer somnolent. Nondysarthric speech. No gross focal neurologic deficits appreciated. PSYCHIATRIC: Mood and affect appear appropriate LABORATORY DATA: Please see below. IMAGING: CT head without contrast, 02/17/2021 FINDINGS: Brain: There is no acute intracranial hemorrhage or mass effect. Mild diffuse volume loss is within the range of normal for patient age. There are small vessel ischemic changes within the periventricular and subcortical white matter, but the normal rawls/white matter delineation is maintained. Chronic lacunar infarcts involve the basal ganglia. Cerebral ventricles: No ventriculomegaly. Paranasal sinuses: Visualized sinuses are unremarkable. No fluid levels. Mastoid air cells: Visualized mastoid air cells are well aerated. Bones/joints: Unremarkable. No acute fracture. Soft tissues: Unremarkable. IMPRESSION: No acute hemorrhage or edema. Portable chest x-ray, 02/17/2021 FINDINGS: EKG monitoring electrodes are seen. There are clips in right upper quadrant the abdomen and a bipolar pacemaker is seen in the right heart view of the left side. The heart is not enlarged. The patient is status post ventral discectomy and fusion plating in the lower cervical spine. There are subtle increased markings in the left lower lobe behind the heart and more laterally. I cannot exclude a new infiltrate. No other infiltrate is seen. Pleural angles are sharp. IMPRESSION: Possible new infiltrate left lower lobe. Pacemaker. CT abdomen pelvis with IV contrast, 02/17/2021 FINDINGS: Lung bases: There are stable bibasilar fibrotic changes. Liver: Normal Gallbladder: Prior cholecystectomy. Spleen: Normal. Adrenals: Normal. Pancreas: Normal. Kidneys: Normal. Small and large bowel: There has been a prior colectomy with ileostomy on the right. There is an associated parastomal hernia containing fat and bowel loops. P ortions of small bowel of are [id number] dilated intermittently. Some degree of partial small bowel obstruction at the level of the parastomal hernia cannot be excluded. Free fluid: None. Abdominal aorta: There is borderline aneurysmal dilatation of the distal abdominal aorta 3 cm in maximum AP diameter. Adenopathy: None. Osseous structures: There is a stable compression deformity of T12. Pelvis: No mass. Prior hysterectomy IMPRESSION: Portions of small bowel are [id number]-[id number] dilated intermittently in a nonspecific pattern. Some degree of partial small-bowel obstruction at the level of the right parastomal hernia cannot be excluded. CT angiography, 02/17/2021 FINDINGS: There is excellent visualization of the pulmonary arterial vasculature. No focal filling defects are present that would be considered consistent with acute pulmonary emboli. The thoracic aorta is within normal limits. There is no pleural or pericardial effusion. Mildly enlarged lymph nodes are seen in the mediastinum and pulmonary lynn. This represents a change from the prior exam although difficult for an exact comparison since the prior exam was a noncontrast enhanced exam. The imaged osseous structures shows a grade 3 T12 anterior wedge compression deformity and although representing a change from the prior chest CT it is stable from prior CT of the abdomen and pelvis 12/19/2020. There is a healing left 8th rib fracture which is also stable. Additional healing left-sided rib fractures are seen involving the 4th 5th and 6 ribs not imaged on the prior abdomen CT of 01/28/2021 in representing a change from the prior chest CT. Evaluation of the lung narayan shows scattered patchy, ground-glass, and curvilinear densities and all having developed since the last chest CT with exception of the right middle lobe opacity which was present and actually appears somewhat improved. There is irregular pleural thickening posterior at the level of the superior segment of the left lower lobe. IMPRESSION: 1. There is adenopathy, as described above, which has developed since the last chest CT in the etiology of which is uncertain. Further workup is suggested along with clinical correlation. 2. Lung field changes as described above suspicious for subsegmental atelectatic changes, however, a patchy pneumonia cannot be ruled out. 3. Stable T12 compression deformity as described above. 4. Left-sided rib fractures as described above. 5. There is no evidence of a pulmonary embolism. PROGNOSIS: Fair ACTIVITY: As tolerated DIET: 2 g sodium diet DISPOSITION: Home, Self-Care. DISCHARGE INSTRUCTIONS & ITEMS TO FOLLOWUP ON ON OUTPATIENT: Please follow-up with your primary care physician in the next 3-5 days for posthospitalization appointment. Upon follow-up with primary care provider, please discuss a plan as it relates to your pain medicine care and medication regimen. We will switch to gabapentin 300 mg 3 times a day dosing. -Please only take the as needed zolpidem when you truly need it. -Please assess with your pain management provider whether or not you need to be taking both a scheduled morphine sulfate oral and and as needed [place]. -Please complete 5-day course of levofloxacin. You have already received 2 days worth here in the hospital and will need to take 3 more days upon discharge (from ). The prescription will be 1, 750 mg tablet once a day for 3 days. This prescription will be sent to your pharmacy. Please continue to follow-up as previously scheduled with your tunnel worker/general surgeon. -Please continue to ambulate with assistance of a walker as you have been doing. Please adhere to a low-salt/2 g sodium diet. Should your presenting symptoms acutely worsen and/or recur, please return the emergency department. Please comply with the above treatment plan. Thank you for the opportunity to participate in your care. DISCHARGE CONDITION: Stable TIME SPENT ON DISCHARGE: 36 minutes Vital Signs/I&Os Vital Signs Date Time Temp Pulse Resp B/P (MAP) Pulse Ox O2 Delivery O2 Flow Rate FiO2 02/18/21 13:49 16 02/18/21 09:05 88 139/63 02/18/21 06:03 Room Air 02/18/21 06:00 97.6 90 02/17/21 14:00 1.0 I&O- Last 24 Hours up to 6 AM 02/18/21 06:00 Intake Total 3090 ml Output Total 2100 ml Balance 990 ml Laboratory Data Labs 24H Laboratory Tests 2 02/18/21 05:28: Immature Granulocyte % (Auto) 0.7, Neutrophils (%) (Auto) 61.3, Lymphocytes (%) (Auto) 27.2, Monocytes (%) (Auto) 6.3, Eosinophils (%) (Auto) 4.1H, Basophils (%) (Auto) 0.4, Neutrophils # (Auto) 4.2, Lymphocytes # (Auto) 1.9, Monocytes # (Auto) 0.4, Eosinophils # (Auto) 0.3, Basophils # (Auto) 0.0, Nucleated Red Blood Cells % (auto) 0.0, Anion Gap 4L, Glomerular Filtration Rate > 60.0, Calcium Level 8.2L, Magnesium Level 2.2, Total Bilirubin 0.1#L, Aspartate Amino Transf (AST/SGOT) 17, Alanine Aminotransferase (ALT/SGPT) 12, Alkaline Phosphatase 92, Total Protein 5.2L, Albumin 2.4L, Albumin/Globulin Ratio 0.9L CBC/BMP Laboratory Tests 02/18/21 05:28 Microbiology Microbiology 02/17/21 Blood Culture - Preliminary, Resulted No growth after 24 hours . All specim... 02/17/21 Blood Culture - Preliminary, Resulted No growth after 24 hours . All specim... Discharge Medications Scheduled Amiodarone HCl (Amiodarone HCl) 200 Mg Tablet, 200 MG PO DAILY, (Reported) Amlodipine Besylate (Amlodipine Besylate) 5 Mg Tablet, 5 MG PO DAILY, (Reported) Apixaban (Eliquis) 5 Mg Tablet, 5 MG PO BID, (Reported) Aspirin (Aspirin) 81 Mg Tab.chew, 81 MG PO QHS, (Reported) Bupropion HCl (Wellbutrin Xl) 150 Mg Tab.er.24h, 150 MG PO DAILY, (Reported) Calcium Carbonate/Vitamin D3 (Liquid Calcium with Vitamin D) 1 Each Capsule, 1 CAP PO DAILY, (Reported) Carvedilol (Carvedilol) 3.125 Mg Tablet, 3.125 MG PO BID, (Reported) Celecoxib (Celebrex) 100 Mg Capsule, 100 MG PO BID, (Reported) Cholecalciferol (Vitamin D3) (Vitamin D3) 25 Mcg Tablet, 25 MCG PO BID, (Reported) Duloxetine Hcl (Duloxetine HCl) 30 Mg Capsule.dr, 60 MG PO QAM, (Reported) Duloxetine Hcl (Duloxetine HCl) 30 Mg Capsule.dr, 30 MG PO QHS, (Reported) Esomeprazole Magnesium (Nexium) 40 Mg Capsule.dr, 40 MG PO BID, (Reported) Ferrous Sulfate (Shane-in-Angela) 15 Mg/1 Ml Drops, 15 MG PO DAILY, (Reported) Fluticasone Propionate (Flovent Hfa) 110 Mcg/Act Aer.w.adap, 2 PUFF INH BID, (Reported) Folic Acid (Folic Acid) 1 Mg Tablet, 1 MG PO DAILY, (Reported) Gabapentin (Gabapentin) 300 Mg Capsule, 300 MG PO TID Glucosamine/D3/Boswellia Sheila (Osteo Bi-Flex Tablet) 1 Each Tablet, 1 TAB PO BID, (Reported) L.acidoph/L.bulg/B.bif/S.therm (Jaquelin-Bid Caplet) 1 Each Tablet, 1 TAB PO TID, (Reported) Levofloxacin (Levofloxacin) 750 Mg Tablet, 1 TAB PO DAILY Loratadine (Loratadine) 10 Mg Tablet, 10 MG PO DAILY, (Reported) Montelukast Sodium (Singulair) 10 Mg Tablet, 10 MG PO QHS, (Reported) Morphine Sulfate (Morphine Sulfate ER) 15 Mg Tablet.er, 15 MG PO Q8H, (Reported) Multivitamin,Therapeutic (Thera-Tabs) 1 Each Tablet, 1 TAB PO DAILY, (Reported) Nystatin (Nystatin Oral Susp) 100,000 Unit/1 Ml Oral.susp, 5 ML SS Q8H, (Reported) Rosuvastatin Calcium (Rosuvastatin Calcium) 10 Mg Tablet, 10 MG PO QHS, (Reported) Tolterodine Tartrate (Detrol LA) 4 Mg Cap.er.24h, 4 MG PO DAILY, (Reported) Ubidecarenone (Co Q-10) 200 Mg Capsule, 100 MG PO DAILY, (Reported) Scheduled PRN Albuterol Sulfate (Proair Hfa) 8.5 Gm Hfa.aer.ad, 2 PUFFS INH QID PRN for SHOR TNESS OF BREATH, (Reported) Cholestyramine (with Sugar) (Cholestyramine Packet) 4 Gm Powd.pack, 2 GM PO BID PRN for DIARRHEA, (Reported) Cyclobenzaprine HCl (Cyclobenzaprine HCl) 10 Mg Tablet, 10 MG PO TID PRN for MUSCLE SPASMS, (Reported) Hydrocodone/Acetaminophen (Hydrocodone-Acetamin 10-325 mg) 1 Each Tablet, 1 TAB PO Q6H PRN for PAIN, (Reported) CAN TAKE UP TO 2 TABLETS EVERY 6 HOURS, MDD 8 TABLETS Naloxone HCl (Narcan) 4 Mg [place], 1 SPRAY NARES ONCE PRN for OVERDOSE, (Reported) Ondansetron HCl (Ondansetron HCl) 8 Mg Tablet, 8 MG PO TID PRN for NAUSEA OR VOMITING, (Reported) Prednisone (Prednisone) 5 Mg Tablet, 5 MG PO DAILY PRN for INFLAMMATION, (Reported) Promethazine HCl (Promethazine HCl) 25 Mg Tablet, 25 MG PO Q6H PRN for NAUSEA OR VOMITING, (Reported) Zolpidem Tartrate (Zolpidem Tartrate) 5 Mg Tablet, 5 MG PO QHS PRN for SLEEP, (Reported) Allergies Coded Allergies: Penicillins (Verified Allergy, Severe, anaphylaxis, 02/19/21) pregabalin (Verified Allergy, Severe, ANAPHYLAXIS, 02/19/21) Cephalosporins (Verified Adverse Reaction, Severe, red man syndrome, 02/19/21) GME ATTESTATION My faculty preceptor for this patient encounter was physically present during the encounter and was fully available. All aspects of the patient interview, examination, medical decision making process, and medical care plan development were reviewed and approved by the faculty preceptor. The faculty preceptor is aware and concurs with the plan as stated in the body of this note and will attest to such by his/her cosignature. ATTENDING NOTE I personally examined the patient and discussed her findings and plan with the resident team and noted above. LALO LE D.O. Feb 18, 2021 19:19 J LUIS GRIMES MD Feb 20, 2021 08:06
[2021-02-20 13:08] LABS: BODY FLUID CULTURE Not indicated. (.); LEGIONELLA ANTIGEN URINE Negative (Negative); ORGANISM ID Not indicated. (.); SPECIMEN SOURCE Urine (.); URINE STREP PNEUMONIAE ANTIGEN Negative (Negative)
== END 2021-02-18 17:00 | disposition home or self-care (01) | DRG 948 ==
LOC: M ED 06:20 → M MSPAV 12:43 → ENRESERV 13:38
PROVIDERS: ADMIT Internal Medicine; ATTEND Internal Medicine
DX: R41.82 Altered mental status, unspecified (principal); E87.1 Hypo-osmolality and hyponatremia; I25.10 Atherosclerotic heart disease of native coronary artery without angina pectoris; I49.5 Sick sinus syndrome; I48.0 Paroxysmal atrial fibrillation; R91.8 Other nonspecific abnormal finding of lung field; I10 Essential (primary) hypertension; M79.7 Fibromyalgia; F41.9 Anxiety disorder, unspecified; E87.5 Hyperkalemia; F32.9 Major depressive disorder, single episode, unspecified; G47.00 Insomnia, unspecified; T42.75XA Adverse effect of unspecified antiepileptic and sedative-hypnotic drugs, initial encounter; R09.02 Hypoxemia; F17.210 Nicotine dependence, cigarettes, uncomplicated; Z86.73 Personal history of transient ischemic attack (TIA), and cerebral infarction without residual deficits; Z93.2 Ileostomy status; Z90.49 Acquired absence of other specified parts of digestive tract; G47.33 Obstructive sleep apnea (adult) (pediatric); E78.5 Hyperlipidemia, unspecified; Z98.1 Arthrodesis status; Z20.822 Contact with and (suspected) exposure to COVID-19; Z79.01 Long term (current) use of anticoagulants; Z79.82 Long term (current) use of aspirin; Z88.0 Allergy status to penicillin; Z88.1 Allergy status to other antibiotic agents; Z88.8 Allergy status to other drugs, medicaments and biological substances

== ENCOUNTER → 2021-02-21 | Outpatient (CLI) | payer MEDICARE, OTHER ==
[~2021-02-21] MED LIST changes: +LEVO750T13 PO; +NYST50SS SS; +PROM25TA12 PO
== END ==
LOC: M LABSMTC 11:06
PROVIDERS: ATTEND Anesthesiology
DX: Z01.818 Encounter for other preprocedural examination (principal); Z11.52 Encounter for screening for COVID-19

== ENCOUNTER 2021-02-26 09:20 | Day surgery (SDC) | payer MEDICARE, OTHER ==
[~2021-02-26] VITALS: Ht 152.4 cm; Wt 54.9 kg
[~2021-02-26 09:20] MED LIST changes: +LIDOCAINE 2% 100MG/5ML SDV (FOR ANES.) As Ordered ONE; +NS 1,000 ML IV ONE; +propofoL 200 MG/20 ML VIAL As Ordered ONE
--- NOTE | 2021-02-26 12:23 | ROOR ---
Patient Name: Mable Newberry Procedure Date: 02/26/2021 11:32 AM Date of : 1955 Age: 65 Room: [facility] Gender: Female Note Status: Finalized Procedure: Upper GI endoscopy Indications: Suspected esophageal reflux Providers: Greg Johnson MD Referring MD: LEVI Metzger Requesting Provider: Medicines: Monitored Anesthesia Care Complications: No immediate complications. Procedure: Pre-Anesthesia Assessment: - Prior to the procedure, a History and Physical was performed, and patient medications and allergies were reviewed. The patient is competent. The risks and benefits of the procedure and the sedation options and risks were discussed with the patient. All questions were answered and informed consent was obtained. Patient identification and proposed procedure were verified by the physician, the nurse and the manager of revenue in the procedure room. Mental Status Examination: alert and oriented. Prophylactic Antibiotics: The patient does not require prophylactic antibiotics. Prior Anticoagulants: The patient has taken Eliquis (apixaban), last dose was 3 days prior to procedure. ASA Grade Assessment: III - A patient with severe systemic disease. After reviewing the risks and benefits, the patient was deemed in satisfactory condition to undergo the procedure. The anesthesia plan was to use monitored anesthesia care (MAC). Immediately prior to administration of medications, the patient was re-assessed for adequacy to receive sedatives. The heart rate, respiratory rate, oxygen saturations, blood pressure, adequacy of pulmonary ventilation, and response to care were monitored throughout the procedure. The physical status of the patient was re-assessed after the procedure. The Endoscope was introduced through the mouth, and advanced to the second part of duodenum. The upper GI endoscopy was accomplished without difficulty. The patient tolerated the procedure well. Findings: The examined esophagus was normal. Striped mildly erythematous mucosa without bleeding was found in the gastric body. The first portion of the duodenum and second portion of the duodenum were normal. Impression: - Normal esophagus. - Erythematous mucosa in the gastric body. - Normal first portion of the duodenum and second portion of the duodenum. - No specimens collected. Recommendation: - Discharge patient to home. - Resume previous diet. - Continue present medications. - Return to my office at appointment to be scheduled. Procedure Code(s): --- Professional --- 61054, Esophagogastroduodenoscopy, flexible, transoral; diagnostic, including collection of specimen(s) by brushing or washing, when performed (separate procedure) Diagnosis Code(s): --- Professional --- K31.89, Other diseases of stomach and duodenum CPT copyright 2019 [employer]. All rights reserved. The codes documented in this report are preliminary and upon manager home healthcare review may be revised to meet current compliance requirements. Greg Johnson MD Greg Johnson MD 02/26/2021 12:23:19 PM Electronically signed by Greg Johnson MD Number of Addenda: 0 Note Initiated On: 02/26/2021 11:32 AM Estimated Blood Loss: Estimated blood loss: none.
--- NOTE | 2021-02-26 12:38 | ROOR ---
Patient Name: Mable Newberry Procedure Date: 02/26/2021 11:34 AM Date of : 1955 Age: 65 Room: [facility] Gender: Female Note Status: Finalized Procedure: Colonoscopy Indications: Preoperative assessment, Post-operative assessment Providers: Greg Johnson MD Referring MD: LEVI Metzger Requesting Provider: Medicines: Monitored Anesthesia Care Complications: No immediate complications. Procedure: Pre-Anesthesia Assessment: - Prior to the procedure, a History and Physical was performed, and patient medications and allergies were reviewed. The patient is competent. The risks and benefits of the procedure and the sedation options and risks were discussed with the patient. All questions were answered and informed consent was obtained. Patient identification and proposed procedure were verified by the physician, the nurse and the retail customer service specialist in the procedure room. Mental Status Examination: alert and oriented. Airway Examination: normal oropharyngeal airway and neck mobility. Prophylactic Antibiotics: The patient does not require prophylactic antibiotics. Prior Anticoagulants: The patient has taken Eliquis (apixaban), last dose was 3 days prior to procedure. ASA Grade Assessment: III - A patient with severe systemic disease. After reviewing the risks and benefits, the patient was deemed in satisfactory condition to undergo the procedure. The anesthesia plan was to use monitored anesthesia care (MAC). Immediately prior to administration of medications, the patient was re-assessed for adequacy to receive sedatives. The heart rate, respiratory rate, oxygen saturations, blood pressure, adequacy of pulmonary ventilation, and response to care were monitored throughout the procedure. The physical status of the patient was re-assessed after the procedure. The Colonoscope was introduced through the anus and advanced to the sigmoid colon to examine a stenosis. This was the intended extent. The Endoscope was introduced through the and advanced to. The colonoscopy was somewhat difficult due to abnormal anatomy. The patient tolerated the procedure well. The quality of the bowel preparation was good. Findings: The perianal and digital rectal examinations were normal. A diffuse area of mildly atrophic and inflamed mucosa was found in the rectum. With the adult colonoscope it was possible to advance only to aprox 18cm due to some narrowing and angulation. A benign-appearing, intrinsic moderate stenosis measuring of unknown length was found in the recto-sigmoid colon and was non-traversed. The scope was withdrawn and replaced with the adult endoscope because of difficulty passing the scope. With the EGD scope it was still impossible to advance proximal to 18 cm. Impression: - Atrophic and inflamed mucosa in the rectum. - Stricture in the recto-sigmoid colon. - No specimens collected. Recommendation: - Discharge patient to home. - Resume previous diet. - Continue present medications. - Return to my office at appointment to be scheduled. Procedure Code(s): --- Professional --- 95369, Colonoscopy, flexible; diagnostic, including collection of specimen(s) by brushing or washing, when performed (separate procedure) Diagnosis Code(s): --- Professional --- K62.89, Other specified diseases of anus and rectum K56.699, Other intestinal obstruction unspecified as to partial versus complete obstruction Z01.818, Encounter for other preprocedural examination Z09, Encounter for follow-up examination after completed treatment for conditions other than malignant neoplasm CPT copyright 2019 [employer]. All rights reserved. The codes documented in this report are preliminary and upon supervisor bottle machines review may be revised to meet current compliance requirements. Greg Johnson MD Greg Johnson MD 02/26/2021 12:38:25 PM Electronically signed by Greg Johnson MD Number of Addenda: 0 Note Initiated On: 02/26/2021 11:34 AM Estimated Blood Loss: Estimated blood loss: none.
[2021-02-26 13:03] VITALS: BP 107/80
== END 2021-02-26 13:04 | disposition home or self-care (01) ==
LOC: M OPP 09:20
PROVIDERS: ATTEND Surgery
DX: K62.89 Other specified diseases of anus and rectum (principal); K56.699 Other intestinal obstruction unspecified as to partial versus complete obstruction; Z93.3 Colostomy status; Z09 Encounter for follow-up examination after completed treatment for conditions other than malignant neoplasm; K31.89 Other diseases of stomach and duodenum; Z79.82 Long term (current) use of aspirin; Z79.899 Other long term (current) drug therapy; Z79.891 Long term (current) use of opiate analgesic; Z88.1 Allergy status to other antibiotic agents; Z88.0 Allergy status to penicillin; Z88.8 Allergy status to other drugs, medicaments and biological substances; F17.220 Nicotine dependence, chewing tobacco, uncomplicated

== ENCOUNTER 2021-03-08 13:02 | Inpatient (IN) | payer MEDICARE, OTHER ==
[~2021-03-08] VITALS: Ht 152.4 cm; Wt 54.5 kg
[~2021-03-08 13:02] MED LIST changes: -LIDOCAINE 2% 100MG/5ML SDV (FOR ANES.) As Ordered ONE; -NS 1,000 ML IV ONE; -propofoL 200 MG/20 ML VIAL As Ordered ONE
[2021-03-08] MEDS ORDERED: NS 1,000 ML IV SCH (13:20)
[2021-03-08] MEDS ORDERED: MORPHINE 4 MG/ML 1ML VIAL/SYRINGE (J2270) IV PRN (13:30)
[2021-03-08] MEDS ORDERED: ONDANSETRON 4MG/2ML VIAL IV ONE (14:00)
[2021-03-08] MEDS ORDERED: VALA1TAB5 PO (14:03)
[2021-03-08] MEDS ORDERED: ISOVUE-370 76% 100ML VIAL As Ordered ONE (14:17)
[2021-03-08 14:18] LABS: BASO % 0.2 % (0.0-1.0); EOS # 0.1 10^3/uL (0.0-0.5); EOS % 0.2 % (0.0-3.0); HEMATOCRIT 38.9 % (36.0-47.0); HEMOGLOBIN 12.8 g/dl (12.0-15.5); LYMPH # 1.4 10^3/uL (1.5-5.0); LYMPH % 6.9 % (24.0-44.0); MEAN CORPUSCULAR HGB CONC 32.9 g/dl (32.0-36.5); MEAN CORPUSCULAR VOLUME 91.1 fl (80.0-96.0); MONO # 0.5 10^3/uL (0.0-0.8); MONO % 2.7 % (2.0-8.0); NEUTROPHILS # 18.1 10^3/uL (1.5-8.5); NEUTROPHILS % 89.4 % (36.0-66.0); PLATELET COUNT, AUTOMATED 243 10^3/uL (150-450); RED BLOOD COUNT 4.27 10^6/uL (4.00-5.40); WHITE BLOOD COUNT 20.3 10^3/uL (4.0-10.0)
[2021-03-08 14:40] LABS: ALBUMIN 3.2 GM/DL (3.2-5.2); BILIRUBIN,DIRECT 0.1 MG/DL (0.0-0.2); BILIRUBIN,TOTAL 0.4 MG/DL (0.2-1.0); TOTAL PROTEIN 6.5 GM/DL (6.4-8.2)
--- NOTE | 2021-03-08 14:45 | REP ---
INDICATION: abdpain/v ?obstruction. COMPARISON: 02/17/2021 TECHNIQUE: Axial contrast-enhanced images from the lung bases to the pubic symphysis using 100 cc Isovue 370 intravenous contrast material. Coronal and sagittal reformations obtained. This CT examination was performed using the following dose reduction techniques: Automated exposure control, adjustment of mA and/or kv according to the patient's size, and the use of iterative reconstruction technique. FINDINGS: Patient is noted to be status post total colectomy. There is high-grade small bowel obstruction secondary to a peristomal hernia where a single loop of bowel appears to be herniating through the stoma itself causing mass effect on the most distal portion of the bowel at the stoma. No free air to suggest perforation. No ascites. Liver, spleen, pancreas, bilateral adrenal glands and kidneys are relatively normal/stable. Prior cholecystectomy noted. Pelvis demonstrates normal bladder and prior hysterectomy. Atherosclerotic changes to the aorta without aneurysm or dissection. No adenopathy. Musculoskeletal structures demonstrate age-related changes. Lung bases demonstrate chronic fibrotic and interstitial changes. IMPRESSION: High-grade distal small-bowel obstruction as detailed above secondary to obstruction at the stoma of the ileostomy in the right lower quadrant. Patient is noted to be status post total colectomy. <Electronically signed by Ez Hurd > 03/08/21 [id number]
[2021-03-08 15:55] LABS: RSV AMPLIFICATION NEGATIVE (NEGATIVE)
[2021-03-08] MEDS ORDERED: ZOLP10TA2 PO (16:15)
[2021-03-08] MEDS ORDERED: GABA-282 PO (16:15)
[2021-03-08] MEDS ORDERED: SODI1TAB6 PO (16:15)
[2021-03-08 17:30] VITALS: BP 114/81
[2021-03-08] MEDS: KCL 20MEQ IN D5/NS 1000ML 1,000 ML IV SCH (18:18)
[2021-03-08] MEDS: ENOXAPARIN 60MG/0.6ML SYRINGE (J1650 PER 10MG) SC SCH (18:18)
[2021-03-08] MEDS: MORPHINE 4 MG/ML 1ML VIAL/SYRINGE (J2270) IV PRN (20:01)
[2021-03-08 22:00] VITALS: BP 121/81
[2021-03-09 02:00] VITALS: BP 124/81
[2021-03-09] MEDS: KCL 20MEQ IN D5/NS 1000ML 1,000 ML IV SCH ×3 (03:45→22:14)
[2021-03-09 06:00] VITALS: BP 129/80
[2021-03-09 06:02] LABS: HEMOGLOBIN 11.5 g/dl (12.0-15.5); MEAN CORPUSCULAR HEMOGLOBIN 29.2 pg (27.0-33.0); MEAN CORPUSCULAR HGB CONC 31.9 g/dl (32.0-36.5); MEAN CORPUSCULAR VOLUME 91.4 fl (80.0-96.0); PLATELET COUNT, AUTOMATED 186 10^3/uL (150-450); RED BLOOD COUNT 3.94 10^6/uL (4.00-5.40); WHITE BLOOD COUNT 14.6 10^3/uL (4.0-10.0)
[2021-03-09] MEDS: ENOXAPARIN 60MG/0.6ML SYRINGE (J1650 PER 10MG) SC SCH ×2 (06:07→16:42)
[2021-03-09 06:22] LABS: BLOOD UREA NITROGEN 10 MG/DL (7-18); CALCIUM LEVEL 6.9 MG/DL (8.8-10.2); CARBON DIOXIDE LEVEL 25 MEQ/L (21-32); CHLORIDE LEVEL 105 MEQ/L (98-107); CREATININE FOR GFR 0.65 MG/DL (0.55-1.30); GLOMERULAR FILTRATION RATE > 60.0 (>45); GLUCOSE, FASTING 105 MG/DL (70-100); POTASSIUM SERUM 4.3 MEQ/L (3.5-5.1); SODIUM LEVEL 136 MEQ/L (136-145)
[2021-03-09] MEDS: MORPHINE 4 MG/ML 1ML VIAL/SYRINGE (J2270) IV PRN ×4 (08:35→22:16)
--- NOTE | 2021-03-09 09:43 | HPE ---
HISTORY AND PHYSICAL DATE OF ADMISSION: 03/08/2021 ADMITTING DIAGNOSIS: Small bowel obstruction. HISTORY OF PRESENT ILLNESS: Patient has been admitted with small bowel obstruction. She has these recurrently. She has been admitted twice in January of this year. On February 26, 2021, her surgeon, Dr. Johnson, attempted a colonoscopy. He encountered a stricture, could not get past with a colonoscope or an esophagogastroduodenoscopy (EGD) scope more proximal than 18 cm. Upper endoscopy showed severe erythema of the mucosa in the gastric body. She had been having increase in distention and pain for a few days. Echocardiogram 03/30/2020 showed moderate stenosis with very mild mitral regurgitation, ejection fraction 75-80%, severe right-sided elevation of pressures/pulmonary hypertension. PAST MEDICAL HISTORY: 1. Subtotal colectomy due to chronic ischemia. 2. Ileostomy creation 03/28/2020. 3. Current hospitalizations for bowel obstruction. 4. History of coronary artery disease. 5. Sick sinus syndrome status post pacemaker. 6. Paroxysmal atrial fibrillation, anticoagulated with Eliquis. 7. Cerebrovascular disease status post right endarterectomy. 8. Probable chronic obstructive pulmonary disease (COPD). 9. Hypertensive heart disease. 10. Chronic back pain with fibromyalgia. 11. Anxiety and depression. 12. Aortic stenosis. HOME MEDICATIONS: See list. REVIEW OF SYSTEMS: She has had a cough recently. Feels like when she had a recent pneumonia. ALLERGIES: CEPHALOSPORINS, PENICILLIN AND LYRICA. FAMILY HISTORY: Noncontributory. SOCIAL HISTORY: No longer smokes. No alcohol. She has been . PHYSICAL EXAMINATION: VITAL SIGNS: Per flow sheet. GENERAL APPEARANCE: She is alert, oriented and conversant. She has gastric tubes in place. HEENT: Grossly unremarkable. LUNGS: Clear. HEART: Regular rate and rhythm. Grade 2/6 systolic ejection murmur. ABDOMEN: Soft, mildly distended. Ostomy bag is distended with gas. EXTREMITIES: No clubbing, cyanosis or edema. LABORATORY DATA: White count 20,000, hemoglobin 12.8, platelets 243. Electrolytes: Sodium 130, potassium 4.7, BUN 15, creatinine 1. COVID test negative. IMPRESSION: 1. Small bowel obstruction. Gastric tubes are in place. Surgery has been consulted. Analgesics have been ordered. Hold her Eliquis in anticipation of intervention. 2. Atrial fibrillation. Hold the Eliquis. She is on therapeutic Lovenox, which can be discontinued the day before surgical procedure. We will have to hold her amiodarone for now. 3. Chronic obstructive pulmonary disease (COPD). Nebulized bronchodilators have been ordered. She had a recent pneumonia. I am ordering a chest x-ray. 4. Hypertensive heart disease. Blood pressure medicines are on hold due to nasogastric suctioning. 5. Chronic depression with fibromyalgia. She is on duloxetine and gabapentin as an outpatient. These are on hold due to nasogastric suctioning. 6. Hyperlipidemia. Rosuvastatin is on hold due to nasogastric suctioning. Case has been discussed with Dr. Johnson.
--- NOTE | 2021-03-09 10:09 | IPN ---
PROGRESS NOTE DATE: 03/09/2021 Mable is doing better. She is getting fluid and gas into her ostomy and apparently had over 1000 mL drained recently. Feeling much better with nasogastric suctioning. PHYSICAL EXAMINATION: Blood pressure 129/80, vital signs stable, afebrile. Alert, conversant, no distress. Nasogastric tube in place. Lungs: Clear. Heart: Regular rhythm, 2/6 systolic ejection murmur. Abdomen: Soft, less distended, functioning ostomy. No peripheral edema. LABORATORY DATA: White count is down to 14.6, hemoglobin 11.5, platelets 186, electrolytes unremarkable, calcium is 6.9. IMPRESSION: 1. Small bowel obstruction with nasogastric suctioning. She has responded to conservative treatment. General surgery is involved. Her pain needs are being met. 2. Hypertension. Her antihypertensives are currently on hold and blood pressure is still well controlled. She was on carvedilol as an outpatient and if I cannot restart this soon she will be at increased risk of beta reyes induced tachycardia and hypertension secondary to withdrawal. 3. Chronic back pain. Her medications are on hold. She was on duloxetine 60 mg daily which she is not currently getting. She will be at risk of withdrawal symptoms if this does not get restarted. 4. Atrial fibrillation. She is on therapeutic Lovenox while her Eliquis is on hold. She takes amiodarone at home which is currently on hold. When okayed by surgery, will restart a number of her outpatient oral medications. Currently, continue with nasogastric suctioning.
--- NOTE | 2021-03-09 14:30 | IPNPDOC ---
Text Note Date of Service The patient was seen on 03/09/21. NOTE General surgery. Dr. Johnson The patient is a 66-year-old female admitted with SBO 03/08/2021. This morning, the patient states abdominal pain is improved but she still has some mild discomfort across the lower abdomen. Also still some mild nausea. NG tube is in place. She is noted to have a small amount of stool and flatus in her colostomy bag. Afebrile VSS Awake and alert, sitting up in bed NG tube in place S1-S2 regular rate rhythm Lungs clear to auscultation Abdomen soft, still with some distention, ostomy with small amount of stool and air noted in the bag. EGD 02/26/2021 with erythematous mucosa in the gastric body. Colonoscopy 02/26/2021 with stricture noted in the rectosigmoid colon, no specimens. WBC 14.6, this is decreased from 20.3 on admission yesterday I/o 850/1825. 03/08 NG tube output not recorded, 1675 mL stool. Assessment/plan SBO The patient does report improvement in abdominal pain and nausea since admission. NPO NG tube in place IVF 100ml/hr. Monitor. VS,Fishbone, I+O VS, Fishbone, I+O Laboratory Tests 03/09/21 05:28 Vital Signs Date Time Temp Pulse Resp B/P (MAP) Pulse Ox O2 Delivery O2 Flow Rate FiO2 03/09/21 12:50 16 91 Room Air 03/09/21 08:50 2.0 03/09/21 06:00 97.7 92 129/80 (96) I&O- Last 24 Hours up to 6 AM 03/09/21 06:00 Intake Total 1450 ml Output Total 2380 ml Balance -930 ml Crystal Zuluaga Mar 09, 2021 14:30 Greg Johnson Mar 15, 2021 15:40
[2021-03-09] MEDS ORDERED: CEPACOL LOZENGE PO PRN (20:00)
[2021-03-09] MEDS ORDERED: CHLORASEPTIC SPRAY MT PRN (20:50)
--- NOTE | 2021-03-09 21:15 | ECGEPIP ---
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
[2021-03-09 22:00] VITALS: BP 138/79
[2021-03-10 02:00] VITALS: BP 144/80
[2021-03-10] MEDS ORDERED: HYDROMORPHONE HCL 0.5 MG/ 0.5 ML SYRINGE (J1170 PER 1) IV ONE (02:30)
[2021-03-10] MEDS ORDERED: MORPHINE 10 MG/ML 1ML VIAL (J2270) IV ONE (03:05)
[2021-03-10] MEDS: ENOXAPARIN 60MG/0.6ML SYRINGE (J1650 PER 10MG) SC SCH ×2 (05:41→17:34)
[2021-03-10 06:00] VITALS: BP 146/80
[2021-03-10 06:39] LABS: HEMATOCRIT 37.4 % (36.0-47.0); HEMOGLOBIN 12.3 g/dl (12.0-15.5); MEAN CORPUSCULAR HEMOGLOBIN 29.7 pg (27.0-33.0); MEAN CORPUSCULAR HGB CONC 32.9 g/dl (32.0-36.5); MEAN CORPUSCULAR VOLUME 90.3 fl (80.0-96.0); PLATELET COUNT, AUTOMATED 216 10^3/uL (150-450); RED BLOOD COUNT 4.14 10^6/uL (4.00-5.40); WHITE BLOOD COUNT 10.1 10^3/uL (4.0-10.0)
[2021-03-10 07:12] LABS: BLOOD UREA NITROGEN 3 MG/DL (7-18); CALCIUM LEVEL 7.4 MG/DL (8.8-10.2); CARBON DIOXIDE LEVEL 28 MEQ/L (21-32); CHLORIDE LEVEL 102 MEQ/L (98-107); GLOMERULAR FILTRATION RATE > 60.0 (>45); GLUCOSE, FASTING 120 MG/DL (70-100); POTASSIUM SERUM 3.1 MEQ/L (3.5-5.1); SODIUM LEVEL 136 MEQ/L (136-145)
--- NOTE | 2021-03-10 09:10 | REP ---
INDICATION: follow SBO COMPARISON: None. TECHNIQUE: Supine view of the abdomen and pelvis. FINDINGS: Nasogastric tube with side port above the diaphragm warrants advancement. Ostomy overlies the right lower quadrant. Dilated air-filled small bowel is appreciated and continued obstruction cannot be excluded. No obvious free air. No organomegaly. IMPRESSION: 1. Nasogastric tube requires advancement. 2. Dilated air-filled small bowel suggesting continued obstruction. <Electronically signed by Ez Hurd > 03/10/21 0906
[2021-03-10] MEDS: KCL 20MEQ IN D5/NS 1000ML 1,000 ML IV SCH ×3 (09:26→20:50)
[2021-03-10] MEDS: KCL 10MEQ/100ML SWI (KRUN) 10 MEQ in IV 1 EA IV SCH ×2 (09:26→10:58)
[2021-03-10] MEDS: MORPHINE 4 MG/ML 1ML VIAL/SYRINGE (J2270) IV PRN ×3 (09:27→17:36)
[2021-03-10 14:00] VITALS: BP 162/86
--- NOTE | 2021-03-10 15:17 | IPNPDOC ---
Subjective Date Seen The patient was seen on 03/10/21. Subjective Chief Complaint/HPI Patient is still complaining of some abdominal pain she has NG tube in and no other distress. General: Denies: ROS Unobtainable, Chills, Night Sweats, Fatigue, Malaise, Normal Appetite, Other Symptoms Constitutional: Denies: Chills, Fever, Malaise, Night Sweats, Weakness, Fatigue, Weight Loss, Lethargy, Other Eyes: Denies: Pain, Vision change, Conjunctivae inflammation, Eyelid inflammation, Redness, Other ENT: Denies: Head Aches, Ear Pain, Dysphagia, Sinus Congestion, Post Nasal Drip, Sore Throat, Epistaxis, Other Symptoms Skin: Denies: Rash, Lesions, Jaundice, Bruising, Itching, Dry, Breakdown, Nail Changes, Other Pulmonary: Denies: Dyspnea, Cough, Pleuritic Chest Pain, Other Symptoms Cardiovascular: Denies: Chest Pain, Palpitations, Orthopnea, Paroxysmal Noc. Dyspnea, Edema, Lt Headedness, Other Symptoms Gastrointestinal: Reports: Abdominal Pain Genitourinary: Denies: Dysuria, Frequency, Incontinence, Hematuria, Retention, Other Symptoms Hematologic: Denies: Bruising, Bleeding Excessively, Petecchia, Purpura, Enlarged Lymph Nodes, Other Hematologic Endocrine: Denies: Polydipsia, Polyphagia, Polyuria, Heat Intolerance, Cold Intolerance, Other Endocrine Sx Musculoskeletal: Denies: Neck Pain, Back Pain, Shoulder Pain, Arm Pain, Hand Pain, Leg Pain, Foot Pain, Joint Pain, Muscle Pain, Spasms, Other Symptoms Neurological: Denies: Weakness, Numbness, Incoordination, Change in speech, Confusion, Seizures, Other Symptoms Objective Physical Examination General Exam: Positive: Alert Eye Exam: Positive: PERRLA, Conjunctiva & lids normal Chest Exam: Positive: Clear to auscultation, Normal air movement Heart Exam: Positive: Rate Normal, Normal S1, Normal S2 Abdomen Exam: Positive: BS Hypoactive, Other (Mild tenderness all over the abdomen but no rebound tenderness) Extremity Exam: Positive: Other (No clubbing sinus edema) Skin Exam: Positive: Nl turgor and temperature Assessment /Plan Problems (1) SBO (small bowel obstruction) Status: Acute Plan/VTE VTE Prophylaxis Ordered?: Yes Plan #1:Small bowel obstruction Continue NG tube with suctioning with suctioning Patient is being followed by Dr. Gutierrez further recommendations as per surgery Patient is currently on conservative nonsurgical treatment for her SBO Pain management as per orders A.m. labs ordered #2: Hypertension Patient's p.o. antihypertensive meds are on hold As patient is currently n.p.o. we will continue IV fluids and monitor blood pressure and if needed will start IV beta-blockers to control her blood pressure. #3: Chronic back pain: All home p.o. meds on hold #4: History of A. fib, she is on therapeutic Lovenox will start Eliquis when she start taking her oral meds VS, I&O, 24H, Fishbone Vital Signs/I&O Vital Signs Date Time Temp Pulse Resp B/P (MAP) Pulse Ox O2 Delivery O2 Flow Rate FiO2 03/10/21 14:00 98.6 96 16 162/86 (111) 94 Room Air 03/09/21 16:55 94.0 I&O- Last 24 Hours up to 6 AM 03/10/21 06:00 Intake Total 1200 ml Output Total 1500 ml Balance -300 ml Laboratory Data 24H LABS Laboratory Tests 2 03/10/21 06:06: Nucleated Red Blood Cells % (auto) 0.2H, Anion Gap 6L, Glomerular Filtration Rate > 60.0, Calcium Level 7.4L CBC/BMP Laboratory Tests 03/10/21 06:06 HENRY BROOKE MD Mar 10, 2021 15:17
[2021-03-10 18:00] VITALS: BP 180/80
[2021-03-10] MEDS: ONDANSETRON 4 MG TAB PO PRN ×2 (18:55→23:05)
[2021-03-10 22:00] VITALS: BP 144/76
[2021-03-10] MEDS ORDERED: ACETAMINOPHEN TAB 650MG DOSE (2X325MG) PO PRN (22:10)
[2021-03-11] MEDS: MORPHINE 4 MG/ML 1ML VIAL/SYRINGE (J2270) IV PRN (05:12)
[2021-03-11] MEDS: ENOXAPARIN 60MG/0.6ML SYRINGE (J1650 PER 10MG) SC SCH (05:12)
[2021-03-11 06:00] VITALS: BP 179/93
[2021-03-11 06:27] LABS: BASO % 0.5 % (0.0-1.0); EOS % 0.3 % (0.0-3.0); LYMPH # 1.6 10^3/uL (1.5-5.0); LYMPH % 20.7 % (24.0-44.0); MEAN CORPUSCULAR HEMOGLOBIN 29.5 pg (27.0-33.0); MEAN CORPUSCULAR HGB CONC 32.6 g/dl (32.0-36.5); MEAN CORPUSCULAR VOLUME 90.5 fl (80.0-96.0); MONO # 0.7 10^3/uL (0.0-0.8); NEUTROPHILS # 5.2 10^3/uL (1.5-8.5); NEUTROPHILS % 68.8 % (36.0-66.0); PLATELET COUNT, AUTOMATED 286 10^3/uL (150-450); RED BLOOD COUNT 4.75 10^6/uL (4.00-5.40); WHITE BLOOD COUNT 7.5 10^3/uL (4.0-10.0)
[2021-03-11 07:14] LABS: ALBUMIN 3.1 GM/DL (3.2-5.2); ALT/SGPT 18 U/L (12-78); BILIRUBIN,TOTAL 0.4 MG/DL (0.2-1.0); BLOOD UREA NITROGEN 3 MG/DL (7-18); CALCIUM LEVEL 8.2 MG/DL (8.8-10.2); CARBON DIOXIDE LEVEL 25 MEQ/L (21-32); CHLORIDE LEVEL 102 MEQ/L (98-107); CREATININE FOR GFR 0.53 MG/DL (0.55-1.30); GLOMERULAR FILTRATION RATE > 60.0 (>45); GLUCOSE, FASTING 108 MG/DL (70-100); POTASSIUM SERUM 3.8 MEQ/L (3.5-5.1); SODIUM LEVEL 135 MEQ/L (136-145); TOTAL PROTEIN 6.6 GM/DL (6.4-8.2)
[2021-03-11] MEDS ORDERED: PERCOCET 5MG/325MG TAB PO PRN ×2 (08:25)
[2021-03-11] MEDS: TOLTERODINE TARTRATE 2 MG LA CAP (DETROL LA) PO SCH (09:00)
[2021-03-11] MEDS ORDERED: predniSONE 5 MG TAB PO PRN (09:00)
[2021-03-11] MEDS: SODIUM CHLORIDE 1 GM TAB PO SCH (09:00)
[2021-03-11] MEDS: CARVedilol 3.125 MG TAB PO SCH ×2 (09:00→19:47)
[2021-03-11] MEDS ORDERED: APIXABAN 5 MG TAB (ELIQUIS) PO SCH (09:00)
[2021-03-11 09:17] VITALS: BP 146/94
[2021-03-11 10:00] VITALS: BP 159/90
--- NOTE | 2021-03-11 10:42 | IPNPDOC ---
Text Note Date of Service The patient was seen on 03/11/21. NOTE General surgery. Dr. Johnson The patient is a 66-year-old female admitted with SBO 03/08/2021. NG tube was removed 03/10, advance to clear liquids which she is tolerating. 150 mL of stool documented yesterday, 100 mL this morning. Afebrile VSS Awake and alert, sitting up in bed S1-S2 regular rate rhythm Lungs clear to auscultation Abdomen soft, nondistended, nontender, ostomy with stool and air noted in the bag. EGD 02/26/2021 with erythematous mucosa in the gastric body. Colonoscopy 02/26/2021 with stricture noted in the rectosigmoid colon, no specimens. WBC 7.5, continues to downtrend Assessment/plan SBO The patient is reviewed and examined as per Dr. Johnson. The patient is NG tube was removed and advanced to clear liquids. Per Dr. Gutierrez okay to advance diet as tolerated. From surgical standpoint, kunalay for discharge when medically cleared. Plan for elective outpatient robotic assisted laparoscopic parastomal hernia repair with mesh as per Dr. Johnson. VS,Fishbone, I+O VS, Fishbone, I+O Laboratory Tests 03/11/21 05:31 Vital Signs Date Time Temp Pulse Resp B/P (MAP) Pulse Ox O2 Delivery O2 Flow Rate FiO2 03/11/21 10:10 18 Room Air 03/11/21 09:17 96 146/94 (111) 95 03/11/21 06:00 98.0 03/09/21 16:55 94.0 I&O- Last 24 Hours up to 6 AM 03/11/21 06:00 Intake Total 1600 ml Output Total 1450 ml Balance 150 ml Crystal Zuluaga Mar 11, 2021 10:42
[2021-03-11] MEDS: ONDANSETRON 4 MG TAB PO PRN (11:19)
[2021-03-11] MEDS: KCL 20MEQ IN D5/NS 1000ML 1,000 ML IV SCH ×2 (11:24→23:23)
[2021-03-11] MEDS ORDERED: ALBUTEROL 90 MCG/ACT 8GM HFA INHALER INH PRN (12:05)
[2021-03-11] MEDS ORDERED: CHOLESTYRAMINE 4 GM PWD PKT PO PRN (12:05)
[2021-03-11] MEDS ORDERED: zolPIDEM TARTRATE 5 MG TAB PO PRN (12:05)
[2021-03-11] MEDS ORDERED: CYCLOBENZAPRINE 10MG TABLET PO PRN (12:05)
[2021-03-11] MEDS ORDERED: PROMETHAZINE 25 MG TAB PO PRN (12:05)
[2021-03-11] MEDS ORDERED: ONDANSETRON 4 MG TAB PO PRN (12:05)
--- NOTE | 2021-03-11 12:12 | IPNPDOC ---
Subjective Date Seen The patient was seen on 03/11/21. Subjective Chief Complaint/HPI Patient is comfortable NG tube is out she is tolerating clear liquids and wants to go home, awaiting surgical follow-up General: Denies: ROS Unobtainable, Chills, Night Sweats, Fatigue, Malaise, Normal Appetite, Other Symptoms Constitutional: Denies: Chills, Fever, Malaise, Night Sweats, Weakness, Fa tigue, Weight Loss, Lethargy, Other Skin: Denies: Rash, Lesions, Jaundice, Bruising, Itching, Dry, Breakdown, Nail Changes, Other Pulmonary: Denies: Dyspnea, Cough, Pleuritic Chest Pain, Other Symptoms Cardiovascular: Denies: Chest Pain, Palpitations, Orthopnea, Paroxysmal Noc. Dyspnea, Edema, Lt Headedness, Other Symptoms Gastrointestinal: Denies: Nausea, Vomiting, Abdominal Pain, Diarrhea, Constipation, Melena, Hematochezia, Other Symptoms Musculoskeletal: Denies: Neck Pain, Back Pain, Shoulder Pain, Arm Pain, Hand Pain, Leg Pain, Foot Pain, Joint Pain, Muscle Pain, Spasms, Other Symptoms Objective Physical Examination Chest Exam: Positive: Clear to auscultation, Normal air movement Heart Exam: Positive: Rate Normal, Normal S1, Normal S2 Abdomen Exam: Positive: BS Hypoactive, Other (Mild tenderness all over the abdomen but no rebound tenderness) Extremity Exam: Positive: Other (No clubbing sinus edema) Skin Exam: Positive: Nl turgor and temperature Assessment /Plan Problems (1) SBO (small bowel obstruction) Status: Acute Plan/VTE VTE Prophylaxis Ordered?: Yes Plan #1:Small bowel obstruction: Resolving NG tube was DC'd yesterday and patient has tolerated clear liquid diet Surgical follow-up noted patient has been cleared from surgery point of view and is recommended to start regular diet Patient will be started on regular diet and observe her for 24 hours before discharge home Pain plan with morphine as needed for breakthrough pain and Percocet 5 mg and Percocet 10 mg p.o. as per pain level Continue all home meds AM labs Possible discharge in the morning Patient Mr. Newberry was called and discussed regarding patient's condition and further care #2: Hypertension Restart all home meds. #3: Chronic back pain: Restart all home meds #4: History of A. fib, restart all home meds including Eliquis VS, I&O, 24H, Fishbone Vital Signs/I&O Vital Signs Date Time Temp Pulse Resp B/P (MAP) Pulse Ox O2 Delivery O2 Flow Rate FiO2 03/11/21 10:10 18 Room Air 03/11/21 10:00 98.3 93 159/90 (113) 95 03/09/21 16:55 94.0 l I&O- Last 24 Hours up to 6 AM 03/11/21 06:00 Intake Total 1600 ml Output Total 1450 ml Balance 150 ml Laboratory Data 24H LABS Laboratory Tests 2 03/11/21 05:31: Immature Granulocyte % (Auto) 0.7, Neutrophils (%) (Auto) 68.8H, Lymphocytes (%) (Auto) 20.7L, Monocytes (%) (Auto) 9.0H, Eosinophils (%) (Auto) 0.3, Basophils (%) (Auto) 0.5, Neutrophils # (Auto) 5.2, Lymphocytes # (Auto) 1.6, Monocytes # (Auto) 0.7, Eosinophils # (Auto) 0.0, Basophils # (Auto) 0.0, Nucleated Red Blood Cells % (auto) 0.0, Anion Gap 8, Glomerular Filtration Rate > 60.0, Calcium Level 8.2L, Total Bilirubin 0.4, Aspartate Amino Transf (AST/SGOT) 26, Alanine Aminotransferase (ALT/SGPT) 18, Alkaline Phosphatase 100, Total Protein 6.6, Albumin 3.1L, Albumin/Globulin Ratio 0.9L CBC/BMP Laboratory Tests 03/11/21 05:31 HENRY BROOKE MD Mar 11, 2021 12:12
[2021-03-11] MEDS: FOLIC ACID 1 MG TAB PO SCH (13:34)
[2021-03-11] MEDS: AMIODARONE 200 MG TAB (PACERONE) PO SCH (13:34)
[2021-03-11] MEDS: buPROPion **XL** TABLET 150MG (WELLBUTRIN XL) PO SCH (13:34)
[2021-03-11] MEDS: LORATADINE 10 MG TAB PO SCH (13:35)
[2021-03-11] MEDS: CelecoXIB (CeleBREX) 100 MG CAP PO SCH ×2 (13:35→19:48)
[2021-03-11] MEDS: amLODIPine 5 MG TAB PO SCH (13:35)
[2021-03-11] MEDS: PANTOPRAZOLE 40MG TAB (PROTONIX) PO SCH ×2 (13:37→19:47)
[2021-03-11 14:00] VITALS: BP 159/90
[2021-03-11] MEDS ORDERED: ONDANSETRON 4MG/2ML VIAL IV PRN (14:30)
[2021-03-11] MEDS: MORPHINE 15 MG SA TAB PO SCH ×2 (14:45→21:53)
[2021-03-11] MEDS ORDERED: valACYclovir HCL 500 MG TAB PO PRN (15:00)
[2021-03-11] MEDS: GABAPENTIN 300 MG CAP PO SCH ×2 (17:49→19:48)
[2021-03-11] MEDS: LACTOBACILLUS ACIDOPHILUS CAP (BACID) PO SCH ×2 (17:49→19:47)
--- NOTE | 2021-03-11 18:08 | REPVR ---
PROCEDURE INFORMATION: Exam: CT Head Without Contrast Exam date and time: 03/11/2021 5:10 PM Age: 66 years old Clinical indication: Injury or trauma; Fall; Blunt trauma (contusions or hematomas) TECHNIQUE: Imaging protocol: Computed tomography of the head without contrast. Radiation optimization: All CT scans at this facility use at least one of these dose optimization techniques: automated exposure control; mA and/or kV adjustment per patient size (includes targeted exams where dose is matched to clinical indication); or iterative reconstruction. COMPARISON: CT Head without contrast 02/17/2021 6:59 AM FINDINGS: Brain: There are moderate periventricular and subcortical lucencies consistent with chronic microvascular ischemic changes. The rawls-white differentiation is maintained. No hemorrhage. No edema. Cerebral ventricles: No ventriculomegaly. Paranasal sinuses: Visualized sinuses are unremarkable. No fluid levels. Mastoid air cells: Visualized mastoid air cells are well aerated. Bones/joints: Unremarkable. No acute fracture. Soft tissues: Unremarkable. IMPRESSION: No acute intracranial abnormality. Chronic microvascular ischemic changes. Electronically signed by: Kapil Avendano On 03/11/2021 18:08:14 PM
--- NOTE | 2021-03-11 18:13 | REPVR ---
PROCEDURE INFORMATION: Exam: CT Cervical Spine Without Contrast Exam date and time: 03/11/2021 5:10 PM Age: 66 years old Clinical indication: Injury or trauma; Fall; Blunt trauma TECHNIQUE: Imaging protocol: Computed tomography images of the cervical spine without contrast. Radiation optimization: All CT scans at this facility use at least one of these dose optimization techniques: automated exposure control; mA and/or kV adjustment per patient size (includes targeted exams where dose is matched to clinical indication); or iterative reconstruction. COMPARISON: CT Spine,cervical w/o contrast 07/05/2020 3:01 AM FINDINGS: Bones/joints: Anterior spinal fixation of C4, C5 and C6 vertebra. No acute fracture. No spondylolisthesis. Discs/Spinal canal/Neural foramina: Multilevel degenerative disc disease. There is multilevel uncovertebral and facet hypertrophy with neural foramina narrowing. Lungs: Lung apices are normal. Soft tissues: Unremarkable. IMPRESSION: No acute abnormality. Electronically signed by: Kapil Avendano On 03/11/2021 18:12:36 PM
[2021-03-11] MEDS: FLUTICASONE HFA 110 MCG 12 GM INHALER (FLOVENT) INH SCH (19:44)
[2021-03-11] MEDS: VITAMIN D 1,000 INTERNATIONAL UNITS TABLET PO SCH (19:47)
[2021-03-11] MEDS: APIXABAN 5 MG TAB (ELIQUIS) PO SCH (19:48)
[2021-03-11] MEDS: FERROUS SULFATE 325MG TAB PO SCH (19:48)
[2021-03-11 19:57] LABS: MAGNESIUM LEVEL 1.7 MG/DL (1.8-2.4)
[2021-03-11 20:00] VITALS: BP 151/84
[2021-03-11] MEDS ORDERED: ASPIRIN 81 MG CHEW TABLET PO SCH (21:00)
[2021-03-11] MEDS ORDERED: ROSUVASTATIN 10 MG TAB (CRESTOR) PO SCH (21:00)
[2021-03-11] MEDS ORDERED: DULoxetine 30 MG CAP (CYMBALTA) PO SCH (21:00)
[2021-03-11] MEDS ORDERED: MONTELUKAST 10 MG TAB PO SCH (21:00)
--- NOTE | 2021-03-12 00:57 | REP ---
INDICATION: Fall,pain COMPARISON: None. TECHNIQUE: AP, lateral, bilateral oblique, and coned-down views of the lumbar spine. FINDINGS: Osteopenia and degenerative changes are appreciated. The lumbar spine demonstrates satisfactory alignment and lordosis without acute fracture/compression injury or subluxation. There is a previously identified compression fracture of T12 with approximately 55% loss of superior vertebral body height. IMPRESSION: 1. Osteopenia and degenerative changes. No lumbosacral spine fracture/compression injury or subluxation. 2. Previously identified compression fracture at T12 appears relatively subacute. <Electronically signed by Ez Hurd > 03/12/21 0053
--- NOTE | 2021-03-12 00:59 | REP ---
INDICATION: Fall,pain COMPARISON: None. TECHNIQUE: AP, lateral, and swimmers views. FINDINGS: Alignment and kyphosis is maintained. There is a compression fracture at T12 with approximately 50% loss of anterior/superior vertebral body height. No further acute fracture/compression injury or subluxation. Underlying age-related osteopenia and degenerative changes. IMPRESSION: Compression fracture at T12 with approximately 50% loss of superior vertebral body height. <Electronically signed by Ez Hurd > 03/12/21 0055
[2021-03-12 02:00] VITALS: BP 138/80
[2021-03-12] MEDS: MORPHINE 15 MG SA TAB PO SCH (05:05)
[2021-03-12 06:00] VITALS: BP 121/83
[2021-03-12 06:22] LABS: BASO % 0.3 % (0.0-1.0); EOS # 0.1 10^3/uL (0.0-0.5); EOS % 0.8 % (0.0-3.0); HEMATOCRIT 39.1 % (36.0-47.0); HEMOGLOBIN 12.6 g/dl (12.0-15.5); LYMPH # 1.6 10^3/uL (1.5-5.0); LYMPH % 18.3 % (24.0-44.0); MEAN CORPUSCULAR HEMOGLOBIN 29.4 pg (27.0-33.0); MEAN CORPUSCULAR HGB CONC 32.2 g/dl (32.0-36.5); MEAN CORPUSCULAR VOLUME 91.4 fl (80.0-96.0); MONO # 0.8 10^3/uL (0.0-0.8); MONO % 9.3 % (2.0-8.0); NEUTROPHILS # 6.1 10^3/uL (1.5-8.5); NEUTROPHILS % 70.5 % (36.0-66.0); PLATELET COUNT, AUTOMATED 236 10^3/uL (150-450); RED BLOOD COUNT 4.28 10^6/uL (4.00-5.40); WHITE BLOOD COUNT 8.7 10^3/uL (4.0-10.0)
[2021-03-12 06:55] LABS: ALBUMIN 2.5 GM/DL (3.2-5.2); ALT/SGPT 14 U/L (12-78); BILIRUBIN,TOTAL 0.2 MG/DL (0.2-1.0); BLOOD UREA NITROGEN 4 MG/DL (7-18); CALCIUM LEVEL 7.9 MG/DL (8.8-10.2); CARBON DIOXIDE LEVEL 23 MEQ/L (21-32); CHLORIDE LEVEL 109 MEQ/L (98-107); GLOMERULAR FILTRATION RATE > 60.0 (>45); GLUCOSE, FASTING 96 MG/DL (70-100); POTASSIUM SERUM 4.2 MEQ/L (3.5-5.1); SODIUM LEVEL 139 MEQ/L (136-145); TOTAL PROTEIN 5.9 GM/DL (6.4-8.2)
[2021-03-12] MEDS: FLUTICASONE HFA 110 MCG 12 GM INHALER (FLOVENT) INH SCH (07:26)
[2021-03-12] MEDS: SODIUM CHLORIDE 1 GM TAB PO SCH (08:35)
[2021-03-12] MEDS: FOLIC ACID 1 MG TAB PO SCH (08:36)
[2021-03-12] MEDS: VITAMIN D 1,000 INTERNATIONAL UNITS TABLET PO SCH (08:36)
[2021-03-12] MEDS: LORATADINE 10 MG TAB PO SCH (08:36)
[2021-03-12] MEDS: buPROPion **XL** TABLET 150MG (WELLBUTRIN XL) PO SCH (08:36)
[2021-03-12] MEDS: GABAPENTIN 300 MG CAP PO SCH (08:36)
[2021-03-12] MEDS: APIXABAN 5 MG TAB (ELIQUIS) PO SCH (08:36)
[2021-03-12] MEDS: LACTOBACILLUS ACIDOPHILUS CAP (BACID) PO SCH (08:36)
[2021-03-12] MEDS: TOLTERODINE TARTRATE 2 MG LA CAP (DETROL LA) PO SCH (08:36)
[2021-03-12] MEDS: PANTOPRAZOLE 40MG TAB (PROTONIX) PO SCH (08:36)
[2021-03-12] MEDS: CelecoXIB (CeleBREX) 100 MG CAP PO SCH (08:36)
[2021-03-12] MEDS: FERROUS SULFATE 325MG TAB PO SCH (08:36)
[2021-03-12 08:37] VITALS: BP 128/79
[2021-03-12] MEDS: amLODIPine 5 MG TAB PO SCH (08:37)
[2021-03-12] MEDS: AMIODARONE 200 MG TAB (PACERONE) PO SCH (08:37)
[2021-03-12] MEDS: CARVedilol 3.125 MG TAB PO SCH (08:37)
[2021-03-12] MEDS ORDERED: DULoxetine 30 MG CAP (CYMBALTA) PO SCH (09:00)
[2021-03-12] MEDS ORDERED: FERROUS SULFATE DROPS 50ML BTL PO SCH (09:00)
--- NOTE | 2021-03-12 09:17 | DS.PDOC ---
Discharge Summary General Date of Admission Mar 10, 2021 at 15:12 Date of Discharge 03/12/20 Attending Physician: HENRY BROOKE MD Discharge Summary PROCEDURES PERFORMED DURING STAY: None. ADMITTING DIAGNOSES: 1. SBO. DISCHARGE DIAGNOSES: 1. SBO, chronic T12 compression fracture on pain management, history of sick sinus syndrome s/p PPM, paroxysmal atrial fibrillation on anticoagulation, hypertensive heart disease, COPD. COMPLICATIONS/CHIEF COMPLAINT: Small Bowel Obstruction. HISTORY OF PRESENT ILLNESS: Patient has been admitted with small bowel obstruction. Patient has history of recurrent SBO's. she has been admitted twice in January of this year. On February 26, 2021, her surgeon, Dr. Johnson, attempted a colonoscopy. He encountered a stricture, could not get past with a colonoscope or an esophagogastroduodenoscopy (EGD) scope more proximal than 18 cm. Upper endoscopy showed severe erythema of the mucosa in the gastric body. She had been having increase in distention and pain for a few days. Echocardiogram 03/30/2020 showed moderate stenosis with very mild mitral regurgitation, ejection fraction 75-80%, severe right-sided elevation of pressures/pulmonary hypertension. Patient admitted with the diagnosis of small bowel obstruction.. HOSPITAL COURSE: #1:Small bowel obstruction: Resolved Patient was treated medically and conservatively on the floor by surgical team, small bowel obstruction is resolved NG tube was removed 2 days ago. Initially patient was started on clear liquids which were increased to regular diet and all her p.o. meds were started and Lovenox was DC'd as patient has been restarted on Eliquis. Patient is already on a longstanding morphine dosage for her back pain and also was started on as needed Percocet for breakthrough pain and morphine IV was DC'd. Unfortunately yesterday patient tried to get out of bed without help to go the bathroom and she sustained a fall she is not sure whether she hit her head or back, there was no loss of consciousness no limitation of movement no deformity patient was examined by me CT of the head C-spine and x-ray of thoracic spine and lumbar spine was ordered which did not show any acute events except old compression fracture of T12 which patient is well aware of and follows up with [facility] in pain management clinic, patient is not a candidate for kyphoplasty secondary to her ileostomy as she was told by the pain management. Patient will be discharged home today on all current medication and follow-up with pain management as per scheduleD appointment Patient will continue all her home medications.. DISCHARGE MEDICATIONS: Please see below. ALLERGIES: Please see below. PHYSICAL EXAMINATION ON DISCHARGE: VITAL SIGNS: Please see below. GENERAL: Normal HEENT: PERRLA extraocular muscles intact NECK: Supple CARDIOVASCULAR EXAMINATION: S1-S2 regular RESPIRATORY EXAMINATION: Clear to A&P ABDOMINAL EXAMINATION: Abdomen soft nontender bowel sounds present EXTREMITIES: No clubbing sinus edema SKIN: Normal NEUROLOGICAL EXAMINATION: No focal motor or sensory deficit PSYCHIATRIC EXAMINATION: LABORATORY DATA: Please see below. IMAGING: Refer to radiology reports PROGNOSIS: Good ACTIVITY: As tolerated. DIET: Regular DISCHARGE PLAN: Follow-up with pain management as an outpatient DISPOSITION: Home DISCHARGE INSTRUCTIONS: 1. As per discharge directions. ITEMS TO FOLLOWUP ON ON OUTPATIENT: 1. Follow-up with pain management as an outpatient. DISCHARGE CONDITION: Stable. TIME SPENT ON DISCHARGE: 32 minutes. Vital Signs/I&Os Vital Signs Date Time Temp Pulse Resp B/P (MAP) Pulse Ox O2 Delivery O2 Flow Rate FiO2 03/12/21 08:37 91 128/79 03/12/21 06:00 98.4 18 92 Room Air 03/09/21 16:55 94.0 I&O- Last 24 Hours up to 6 AM 03/12/21 06:00 Intake Total 3080 ml Output Total 890 ml Balance 2190 ml Laboratory Data Labs 24H Laboratory Tests 2 03/12/21 05:44: Immature Granulocyte % (Auto) 0.8, Neutrophils (%) (Auto) 70.5H, Lymphocytes (%) (Auto) 18.3L, Monocytes (%) (Auto) 9.3H, Eosinophils (%) (Auto) 0.8, Basophils (%) (Auto) 0.3, Neutrophils # (Auto) 6.1, Lymphocytes # (Auto) 1.6, Monocytes # (Auto) 0.8, Eosinophils # (Auto) 0.1, Basophils # (Auto) 0.0, Nucleated Red Blood Cells % (auto) 0.0, Anion Gap 7L, Glomerular Filtration Rate > 60.0, Calcium Level 7.9L, Total Bilirubin 0.2, Aspartate Amino Transf (AST/SGOT) 13, Alanine Aminotransferase (ALT/SGPT) 14, Alkaline Phosphatase 81, Total Protein 5.9L, Albumin 2.5L, Albumin/Globulin Ratio 0.7L CBC/BMP Laboratory Tests 03/12/21 05:44 Discharge Medications Scheduled Amiodarone HCl (Amiodarone HCl) 200 Mg Tablet, 200 MG PO DAILY, (Reported) Amlodipine Besylate (Amlodipine Besylate) 5 Mg Tablet, 5 MG PO DAILY, (Reported) Apixaban (Eliquis) 5 Mg Tablet, 5 MG PO BID, (Reported) Aspirin (Aspirin) 81 Mg Tab.chew, 81 MG PO QHS, (Reported) Bupropion HCl (Wellbutrin Xl) 150 Mg Tab.er.24h, 150 MG PO DAILY, (Reported) Calcium Carbonate/Vitamin D3 (Liquid Calcium with Vitamin D) 1 Each Capsule, 1 CAP PO DAILY, (Reported) Carvedilol (Carvedilol) 3.125 Mg Tablet, 3.125 MG PO BID, (Reported) Celecoxib (Celebrex) 100 Mg Capsule, 100 MG PO BID, (Reported) Cholecalciferol (Vitamin D3) (Vitamin D3) 25 Mcg Tablet, 25 MCG PO BID, (Repo rted) Duloxetine Hcl (Duloxetine HCl) 30 Mg Capsule.dr, 60 MG PO QAM, (Reported) Duloxetine Hcl (Duloxetine HCl) 30 Mg Capsule.dr, 30 MG PO QHS, (Reported) Esomeprazole Magnesium (Nexium) 40 Mg Capsule.dr, 40 MG PO BID, (Reported) Ferrous Sulfate (Shane-in-Angela) 15 Mg/1 Ml Drops, 15 MG PO DAILY, (Reported) Folic Acid (Folic Acid) 1 Mg Tablet, 1 MG PO DAILY, (Reported) Gabapentin (Gabapentin) 300 Mg Capsule, 300 MG PO TID, (Reported) Glucosamine/D3/Boswellia Sheila (Osteo Bi-Flex Tablet) 1 Each Tablet, 1 TAB PO BID, (Reported) L.acidoph/L.bulg/B.bif/S.therm (Jaquelin-Bid Caplet) 1 Each Tablet, 1 TAB PO TID, (Reported) Loratadine (Loratadine) 10 Mg Tablet, 10 MG PO DAILY, (Reported) Montelukast Sodium (Singulair) 10 Mg Tablet, 10 MG PO QHS, (Reported) Morphine Sulfate (Morphine Sulfate ER) 15 Mg Tablet.er, 15 MG PO Q8H, (Reported) Multivitamin,Therapeutic (Thera-Tabs) 1 Each Tablet, 1 TAB PO DAILY, (Reported) Rosuvastatin Calcium (Rosuvastatin Calcium) 10 Mg Tablet, 10 MG PO QHS, (Reported) Sodium Chloride (Sodium Chloride) 1 Gm Tablet, 1 GM PO DAILY, (Reported) Tolterodine Tartrate (Detrol LA) 4 Mg Cap.er.24h, 4 MG PO DAILY, (Reported) Ubidecarenone (Co Q-10) 200 Mg Capsule, 100 MG PO DAILY, (Reported) Zolpidem Tartrate (Zolpidem Tartrate) 10 Mg Tablet, 10 MG PO QHS, (Reported) Scheduled PRN Albuterol Sulfate (Proair Hfa) 8.5 Gm Hfa.aer.ad, 2 PUFFS INH QID PRN for SHORTNESS OF BREATH, (Reported) Cholestyramine (with Sugar) (Cholestyramine Packet) 4 Gm Powd.pack, 2 GM PO BID PRN for DIARRHEA, (Reported) Cyclobenzaprine HCl (Cyclobenzaprine HCl) 10 Mg Tablet, 10 MG PO TID PRN for MUSCLE SPASMS, (Reported) Fluticasone Propionate (Flovent Hfa) 110 Mcg/Act Aer.w.adap, 2 PUFF INH BID PRN for SHORTNESS OF BREATH, (Reported) Hydrocodone/Acetaminophen (Hydrocodone-Acetamin 10-325 mg) 1 Each Tablet, 1 TAB PO Q6H PRN for PAIN, (Reported) CAN TAKE UP TO 2 TABLETS EVERY 6 HOURS, MDD 8 TABLETS Naloxone HCl (Narcan) 4 Mg [place], 1 SPRAY NARES ONCE PRN for OVERDOSE, (Reported) Ondansetron HCl (Ondansetron HCl) 8 Mg Tablet, 8 MG PO TID PRN for NAUSEA OR VOMITING, (Reported) Prednisone (Prednisone) 5 Mg Tablet, 5 MG PO DAILY PRN for INFLAMMATION, (Reported) Promethazine HCl (Promethazine HCl) 25 Mg Tablet, 25 MG PO Q6H PRN for NAUSEA OR VOMITING, (Reported) Valacyclovir HCl (Valacyclovir) 1,000 Mg Tablet, 1,000 MG PO Q8H PRN for FLARE UPS, (Reported) Allergies Coded Allergies: Penicillins (Verified Allergy, Severe, anaphylaxis, 02/19/21) pregabalin (Verified Allergy, Severe, ANAPHYLAXIS, 02/19/21) Cephalosporins (Verified Adverse Reaction, Severe, red man syndrome, 02/19/21) HENRY BROOKE MD Mar 12, 2021 09:17
== END 2021-03-12 11:34 | disposition home or self-care (01) | DRG 390 ==
LOC: M ED 13:02 → M ED INP 13:03 → ENRESERVDT 16:25 → ENRESERVTM 16:25 → M MSPAV 19:00 → OBSVTOIN 03-10 15:12
PROVIDERS: ADMIT Family Medicine; ATTEND Internal Medicine
DX: K56.609 Unspecified intestinal obstruction, unspecified as to partial versus complete obstruction (principal); I25.10 Atherosclerotic heart disease of native coronary artery without angina pectoris; I49.5 Sick sinus syndrome; I48.0 Paroxysmal atrial fibrillation; J44.9 Chronic obstructive pulmonary disease, unspecified; I11.9 Hypertensive heart disease without heart failure; M79.7 Fibromyalgia; F41.9 Anxiety disorder, unspecified; F32.9 Major depressive disorder, single episode, unspecified; I27.20 Pulmonary hypertension, unspecified; M84.48XD Pathological fracture, other site, subsequent encounter for fracture with routine healing; E78.5 Hyperlipidemia, unspecified; I35.0 Nonrheumatic aortic (valve) stenosis; Z93.2 Ileostomy status; Z88.0 Allergy status to penicillin; Z88.1 Allergy status to other antibiotic agents; Z90.49 Acquired absence of other specified parts of digestive tract; Z88.8 Allergy status to other drugs, medicaments and biological substances; Z87.891 Personal history of nicotine dependence; Z79.891 Long term (current) use of opiate analgesic; Z79.899 Other long term (current) drug therapy; Z79.01 Long term (current) use of anticoagulants; Z95.0 Presence of cardiac pacemaker; Z79.82 Long term (current) use of aspirin

== ENCOUNTER 2021-03-20 14:43 | Emergency (ER) | payer MEDICARE, OTHER ==
[~2021-03-20 14:43] MED LIST changes: +SODI1TAB6 PO; +VALA1TAB5 PO
--- NOTE | 2021-03-20 15:13 | REP ---
INDICATION: FALL ON THINNER. COMPARISON: None. TECHNIQUE: CT BRAIN PERFORMED IN THE AXIAL PLANE. CORONAL RECONSTRUCTION IMAGES ARE PERFORMED. FINDINGS: The lateral ventricles are midline, symmetric and mildly prominent. There are unchanged. Third and 4th ventricles also mildly prominent. These are proportionate to the diffuse cerebral atrophy which is [id number] in severity, greatest in the temporal and frontal lobes but present throughout. There heterogeneous low-attenuation white matter changes bilaterally suggesting chronic small vessel ischemic disease. I do not see a vascular territory infarct, intracranial hemorrhage, mass or mass effect. Basal cisterns are intact. The brainstem unremarkable cerebellum shows no mass lesion. There is no posterior fossa hemorrhage. Mastoid aeration symmetric and clear. Visualized sinuses are clear. There is some deviation of the nasal septum towards the right side. The skull base and calvarium show no fracture or focal lesion. IMPRESSION: 1. Chronic small vessel white matter ischemic changes with ventriculomegaly and proportionate atrophy, stable. There is no intracranial hemorrhage, acute infarct, parenchymal mass or mass effect. Stable exam. 2. Mastoids, sinuses, skull base and calvarium unremarkable. <Electronically signed by Fabrice Singh > 03/20/21 1014
--- NOTE | 2021-03-20 15:22 | REP ---
INDICATION: FALL ON THINNER. COMPARISON: CT 03/11/2021 TECHNIQUE: Trauma protocol with coronal and sagittal bone window reconstructions. FINDINGS: Skull base shows no intracranial abnormality. Mastoid aeration and others bony chest findings of the skull base were normal. No posterior fossa bleed. Axial images show the spinous processes of the cervical and upper thoracic spine intact. Lamina, pedicles, facets and transverse processes are preserved. The vertebral bodies of the upper thoracic spine and associated ribs are unremarkable. Lung apices grossly clear. There is been an anterior cervical discectomy C4 through C6 with fusion plate and screws in each of the 3 levels and disc spacers at C4-5 and C5-6, well-healed. Posterior osteophytic ridging at the C4-5 through C5-6 levels with mild central canal stenosis. Foramina show mild encroachment on the left at C4-5. The dens and anterior arch of C1 align normally cervical cranial junction is normal. The dens and lateral masses of C1 align normally. Some mild the superior endplate depression T1 is noted and unchanged. No new or acute finding. IMPRESSION: 1. Status post anterior C4 through C6 plate and screw fusion post discectomy and placement of disc spacers. No new or acute compression deformity fracture or malalignment. 2. Some degenerative disc changes at C4-5 and C5-6 with posterior osteophytes and minimal central canal stenosis. Foramina mildly narrowed at C5-6 and on the left at C4-5. 3. Stable old minor superior endplate depression T1. No new or acute finding. <Electronically signed by Fabrice Singh > 03/20/21 [id number]
[2021-03-20 15:25] LABS: BASO % 0.4 % (0.0-1.0); EOS # 0.2 10^3/uL (0.0-0.5); EOS % 1.3 % (0.0-3.0); HEMATOCRIT 35.2 % (36.0-47.0); HEMOGLOBIN 11.6 g/dl (12.0-15.5); LYMPH # 1.8 10^3/uL (1.5-5.0); LYMPH % 15.4 % (24.0-44.0); MEAN CORPUSCULAR HEMOGLOBIN 30.4 pg (27.0-33.0); MEAN CORPUSCULAR VOLUME 92.1 fl (80.0-96.0); MONO # 0.7 10^3/uL (0.0-0.8); MONO % 5.7 % (2.0-8.0); NEUTROPHILS # 8.7 10^3/uL (1.5-8.5); NEUTROPHILS % 76.1 % (36.0-66.0); PLATELET COUNT, AUTOMATED 280 10^3/uL (150-450); RED BLOOD COUNT 3.82 10^6/uL (4.00-5.40); WHITE BLOOD COUNT 11.4 10^3/uL (4.0-10.0)
[2021-03-20 15:53] LABS: CREATININE FOR GFR 1.03 MG/DL (0.55-1.30); GLOMERULAR FILTRATION RATE 56.7 (>45); POTASSIUM SERUM 4.5 MEQ/L (3.5-5.1)
[2021-03-20 16:56] VITALS: BP 140/84
--- NOTE | 2021-03-21 21:21 | ECGEPIP ---
[facility] - ED Test Date: 2021-03-20 Pat Name: DUY RODRIGUEZ Department: Room: - Gender: Female Hand I Blocker: BAMIB : 1955 Requested By: Lucy Amaya Order Number: [id number] Reading MD: Shanna Velasquez Measurements Intervals [place] Rate: 80 P: 42 OR: 164 QRS: -9 QRSD: 72 T: 12 QT: 392 QTc: 452 Interpretive Statements Normal sinus rhythm Minimal voltage criteria for LVH, may be normal variant ( R in aVL ) prwp NSTTW abnormalities decreased rate 03/08/21 Electronically Signed on 03-21-2021 21:20:53 EDT by Shanna Velasquez
== END 2021-03-20 17:04 | disposition home or self-care (01) ==
LOC: EDBD 14:43 → M ED 14:43
DX: S01.81XA Laceration without foreign body of other part of head, initial encounter (principal); W18.39XA Other fall on same level, initial encounter; Y92.018 Other place in single-family (private) house as the place of occurrence of the external cause; I50.9 Heart failure, unspecified; I11.0 Hypertensive heart disease with heart failure; E78.9 Disorder of lipoprotein metabolism, unspecified; M10.9 Gout, unspecified; Z95.0 Presence of cardiac pacemaker; Z79.899 Other long term (current) drug therapy; Z79.82 Long term (current) use of aspirin; Z79.01 Long term (current) use of anticoagulants; Z88.0 Allergy status to penicillin; Z88.1 Allergy status to other antibiotic agents; Z88.8 Allergy status to other drugs, medicaments and biological substances

== ENCOUNTER 2021-03-31 07:30 | Inpatient (IN) | payer MEDICARE, OTHER ==
[~2021-03-31] VITALS: Ht 149.9 cm; Wt 52.2 kg
[2021-04-21] MEDS ORDERED: LASI20TA3 PO (09:36)
[2021-04-28] MEDS ORDERED: LR 1,000 ML IV SCH (06:00)
[2021-04-28] MEDS ORDERED: CLINDAMYCIN 600 MG in IV 1 EA IV ONE (06:00)
[2021-04-28] MEDS ORDERED: AZTREONAM 2 GM in D5W MINI-BAG PLUS 100 ML IV SCH (06:00)
[2021-05-18] MEDS ORDERED: CVS1CAP2 PO (14:41)
[2021-05-18] MEDS ORDERED: COLA100C5 PO (14:41)
[2021-05-18] MEDS ORDERED: OSTE5TAB PO (14:41)
[2021-05-18] MEDS ORDERED: ESTR62CR PV (14:41)
[2021-05-18] MEDS ORDERED: GABA600T4 PO (14:41)
[2021-05-26] VITALS (8 sets, daily range): BP systolic 115–172; BP diastolic 72–98; O2SAT 91
[2021-05-26] MEDS ORDERED: CLINDAMYCIN 900 MG in IV 1 EA IV ONE (06:30)
[2021-05-26] MEDS ORDERED: LR 1,000 ML IV SCH ×2 (06:30→14:40)
[2021-05-26] MEDS ORDERED: CLINDAMYCIN 600 MG/50 ML PREMIX BAG As Ordered ONE (06:49)
[2021-05-26] MEDS ORDERED: AZTREONAM 2 GM in D5W MINI-BAG PLUS 100 ML IV SCH (07:00)
[2021-05-26] MEDS ORDERED: BUPIVACAINE HCL 0.25% 30ML VIAL As Ordered ONE (07:13)
[2021-05-26] MEDS ORDERED: fentaNYL 100 MCG/2 ML INJECTION (J3010) As Ordered ONE ×2 (07:18→11:29)
[2021-05-26] MEDS ORDERED: MIDAZOLAM INJ 2MG/2ML VIAL (J2250 PER 1MG) As Ordered ONE (07:18)
[2021-05-26] MEDS ORDERED: propofoL 200 MG/20 ML VIAL As Ordered ONE (07:18)
[2021-05-26] MEDS ORDERED: LIDOCAINE 2% 100MG/5ML SDV (FOR ANES.) As Ordered ONE (07:18)
[2021-05-26] MEDS ORDERED: dexameTHASONE 4 MG/ML 1ML VIAL (J1100 PER 1MG) As Ordered ONE (07:19)
[2021-05-26] MEDS ORDERED: ROCURONIUM BROMIDE 50 MG/5 ML VIAL As Ordered ONE ×2 (07:19→08:48)
[2021-05-26] MEDS ORDERED: ONDANSETRON 4MG/2ML VIAL As Ordered ONE (07:19)
[2021-05-26] MEDS ORDERED: LACRILUBE (AKWA TEARS) OPHTH OINT 3.5 GM As Ordered ONE (07:25)
[2021-05-26] MEDS ORDERED: ACETAMINOPHEN 1000MG 100ML IV BTL (OFIRMEV) (J0131 PER 10MG) As Ordered ONE (07:56)
[2021-05-26] MEDS ORDERED: PHENYLEPHRINE 10MG/ML 1ML VIAL (J2370 PER 1) As Ordered ONE (08:09)
[2021-05-26] MEDS ORDERED: KETOROLAC 60MG 2ML VIAL As Ordered ONE (08:16)
[2021-05-26] MEDS ORDERED: SUGAMMADEX SODIUM 500 MG/5 ML VIAL (BRIDION) As Ordered ONE (08:16)
--- NOTE | 2021-05-26 08:18 | HPE ---
HISTORY AND PHYSICAL DATE OF ADMISSION: 05/26/2021 REASON FOR ADMISSION: Peristomal hernia. 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 Her ileostomy also became ischemic and stenotic and on May 09, 2020 she underwent a laparotomy with lysis of adhesions and creation of a new right upper quadrant ileostomy. She had initially had issues with what appeared to be a partial small bowel obstruction, but that resolved. She has developed a peristomal hernia and was admitted to the hospital in mid February 2021 with a bowel obstruction secondary to bowel entrapped in her peristomal hernia. This resolved with NG decompression and hydration. She had undergone a colonoscopy on February 26 to evaluate her rectal stomp and it was determined that there was approximately 18 cm only of healthy rectum. Though there appeared to be a small portion of sigmoid above this, imaging suggests that this is scarred and nonfunctional. The patient is now being admitted to undergo a robotic assisted laparoscopic repair of her peristomal hernia. I anticipate this may be difficult based on her prior surgical procedures and the potential for significant intraabdominal adhesions. ALLERGIES: Reported to LYRICA, PENICILLIN AND CEPHALOSPORIN. CURRENT MEDICATIONS: Include loratadine 10 mg by mouth daily, Flovent inhaler 2 puffs once daily as needed, esomeprazole 40 mg by mouth twice daily, duloxetine 60 mg every morning and 20 mg every night at bedtime, vitamin D3, amiodarone hydrochloride 200 mg by mouth daily, gabapentin 300 mg by mouth in the morning, one in the evening and three at bedtime, morphine sulfate extended release tablets with 15 mg one tablet by mouth every 8 hours, Eliquis 5 mg by mouth twice daily, aspirin 81 mg by mouth daily, albuterol 2 puffs by mouth q.i.d. As needed, CoQ10, Celebrex 100 mg twice daily, montelukast 10 mg by mouth daily, Wellbutrin SR 150 mg daily, Zolpidem 5 mg one or two tablets nightly at bedtime as needed, tolterodine tartrate 2 mg once daily, rosuvastatin 10 mg by mouth daily, magnesium oxide 250 mg by mouth daily and folic acid 1 mg by mouth daily. SURGICAL HISTORY: Significant for subtotal colectomy on March 28, 2020. She underwent resection of her stenotic ileostomy with lysis of adhesion and creation of a new right upper quadrant ileostomy in April 2020. She had a pacemaker implanted October 19, 2020. She had previously undergone a right carotid endarterectomy. She has had cervical spine fusion, cholecystectomy, section and hysterectomy. She had an EGD and colonoscopy on February 26, 2021. MEDICAL HISTORY: Significant for sick sinus syndrome and she has undergone a pacemaker placement earlier this year. She has a history of coronary artery disease. She has a history of paroxysmal atrial fibrillation and is currently on Eliquis for anticoagulation. She has cerebrovascular disease and is a status post a right carotid endarterectomy. She has probable chronic obstructive pulmonary disease and hypertensive heart disease. She has chronic back pain with fibromyalgia. She has anxiety and depression. There is a report of some aortic stenosis. She has a history of hypertension and hyperlipidemia. She suffered a right humerus fracture in June 2020 and was treated also for a T12 compression fracture which occurred more recently. FAMILY HISTORY: Noncontributory. SOCIAL HISTORY: She is former smoker, but quit tobacco approximately 5 years ago. She denies any alcohol use. The patient is . REVIEW OF SYSTEMS: The patient remains somewhat unsteady on her feet at baseline and has suffered several falls. She denies any chest pain or palpitations. She denies any current cough or sputum production. She has had some intermittent abdominal discomfort. She does note the bulging of her peristomal hernia. She denies any dysuria or hematuria. She has no definite fevers or chills. PHYSICAL EXAMINATION: The patient is awake and alert. She has skin that is warm and dry. Sclerae are anicteric. Mucous membranes are moist. Neck is supple without mass, but she does have a scar on her neck from her prior carotid endarterectomy. Heart examination revealed a regular rate and rhythm. She has a pacemaker palpable in the left clavicular fossa. Lungs are clear to auscultation bilaterally. Abdomen is flat. She has an ileostomy in the right upper quadrant. She has a long midline scar, which is somewhat depressed in the area around the umbilicus and epigastrium. There is a suggestion of some weakness of the abdominal wall in this depressed area, but there is not a definite hernia. There is some bulging around her ileostomy consistent with her known peristomal hernia. The lower portions of the abdomen are soft and nontender. Lower extremities show palpable femoral pulses. She has palpable radial pulses bilaterally. DIAGNOSES: 1. Peristomal hernia. 2. Ileostomy, status post subtotal colectomy for ischemia. 3. Paroxysmal atrial fibrillation on anticoagulation. 4. Hypertensive heart disease. 5. Chronic back pain. 6. Depression. 7. Fibromyalgia. 8. Hyperlipidemia. 9. Cerebrovascular disease, status post cerebrovascular accident (CVA). 10.Chronic obstructive pulmonary disease. 11.Sick sinus syndrome, status post pacemaker placement. PLAN: The patient is coming into the hospital on May 26 to undergo a robotic assisted laparoscopic repair of her peristomal hernia. She was counseled along with her regarding the procedure. They were counseled that the repair would require placement of prosthetic mesh to cover the area of the stoma from the inside to try to prevent recurrence of the hernia. ED
--- NOTE | 2021-05-26 08:32 | HPE ---
HISTORY AND PHYSICAL DATE OF ADMISSION: 05/26/2021 REASON FOR ADMISSION: Parastomal hernia. 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 Her ileostomy also became ischemic and stenotic and on May 092019, she underwent laparotomy with lysis of adhesions and creation of a new right upper quadrant ileostomy. She had initially had some issues with what appeared to be a partial small bowel obstruction, but that resolved. She has developed a parastomal hernia and was admitted to the hospital in mid-February of 2021 with a bowel obstruction secondary to bowel entrapped in her parastomal hernia. This resolved with NGD compression and hydration. She had undergone a colonoscopy on the 26 of February to evaluate her rectal stump and it was determined that there was approximately 18 cm only of healthy rectum. So there appeared to be a small portion of sigmoid above this. Imaging suggests that this scarred and nonfunctional. Patient is now being admitted to undergo a robotic-assisted laparoscopic repair of her parastomal hernia. I anticipate this may be difficult based on her prior surgical procedures and the potential for significant intraabdominal adhesions. ALLERGIES: Reported to Lyrica, penicillin and cephalosporins. CURRENT MEDICATIONS: Include: 1. Loratadine 10 mg p.o. daily. 2. Flovent inhaler two puffs once daily as needed. 3. Esomeprazole 40 mg p.o. twice daily. 4. Duloxetine 60 mg every morning and 30 mg every night at bedtime. 5. Vitamin D3. 6. Amiodarone Hydrochloride 200 mg p.o. daily. 7. Gabapentin 300 mg p.o. in the morning, one in the evening and three at bedtime. 8. Morphine Sulfate extended release tablets 15 mg one tablet p.o. every 8 hours. 9. Eliquis 5 mg p.o. twice daily. 10.Aspirin 81 mg p.o. daily. 11.Albuterol two puffs p.o. q.i.d. as needed. 12.Co-Q10. 13.Celebrex 100 mg p.o. twice daily. 14.Montelukast 10 mg p.o. daily. 15.Wellbutrin SR 150 mg daily. 16.Zolpidem 5 mg one or two tablets nightly at bedtime as needed. 17.Tolterodine Tartrate 2 mg once daily. 18.Rosuvastatin 10 mg p.o. daily. 19.Magnesium Oxide 250 mg p.o. daily. 20.Folic Acid 1 mg p.o. daily. PAST SURGICAL HISTORY: Significant for a subtotal colectomy on March 28, 2020. She underwent resection of her stenotic ileostomy with lysis of adhesions and creation of a new right upper quadrant ileostomy in April of 2020. She had a pacemaker implanted on October 19 2020. She has previously undergone a right carotid endarterectomy. She has had surgical spine fusion, cholecystectomy, Section and hysterectomy. She had an EGD and colonoscopy on February 262020. PAST MEDICAL HISTORY: Significant for sick sinus syndrome and she has undergone a pacemaker placement earlier this year. She has a history of coronary artery disease. She has a history of paroxysmal atrial fibrillation and is currently on Eliquis for anticoagulation. She has cerebrovascular disease and is status post a right carotid endarterectomy. She has probable chronic obstructive pulmonary disease and hypertensive heart disease. She has chronic back pain with fibromyalgia. She has anxiety and depression. There is a report of some aortic stenosis. She has a history of hypertension and hyperlipidemia. She suffered a right humerus fracture in June of 2020 and was treated also for a T12 compression fracture which occurred more recently. FAMILY HISTORY: Noncontributory. SOCIAL HISTORY: She is a former smoker, but quit tobacco approximately 5 years ago. She denies any alcohol use. She is . REVIEW OF SYSTEMS: Patient remains somewhat unsteady on her feet at baseline and has suffered several falls. She denies any chest pain or palpitations. She denies any current cough or sputum production. She has had some intermittent abdominal discomfort. She does note the bulging of her parastomal hernia. She denies any dysuria or hematuria. She has no definite fevers or chills. PHYSICAL EXAMINATION: GENERAL: The patient is alert and alert. SKIN: She has skin that is warm and dry. HEENT: Sclerae are anicteric. Mucous membranes are moist. Neck is supple without mass, but she does have a scar on her neck from her prior carotid endarterectomy. HEART: Reveals a regular rate and rhythm. She has a pacemaker palpable in the left infraclavicular fossa. LUNGS: Clear to auscultation bilaterally. ABDOMEN: Flat. She has ileostomy in the right upper quadrant. She has a long midline scar which is somewhat depressed in the area around the umbilicus and epigastrium. There is a suggestion of some weakness of the abdominal wall in the depressed area, but there is not a definite hernia. There is some bulging around her ileostomy, consistent with her known parastomal hernia. The lower portions of the abdomen are soft and nontender. EXTREMITIES: Lower extremities show palpable femoral pulses. She has palpable radial pulses bilaterally. DIAGNOSES: 1. Parastomal hernia. 2. Ileostomy; status post subtotal colectomy for ischemia. 3. Paroxysmal atrial fibrillation on anticoagulation. 4. Hypertensive heart disease. 5. Chronic back pain. 6. Depression. 7. Fibromyalgia. 8. Hyperlipidemia. 9. Cerebrovascular disease; status post CVA. 10.Chronic obstructive pulmonary disease. 11.Sick sinus syndrome; status post pacemaker placement. PLAN: The patient is coming into the hospital on the 26 of May to undergo a robotic-assisted laparoscopic repair of her parastomal hernia. She was counseled along with her regarding the procedure. They were counseled that the repair would require placement of prosthetic mesh to cover the area of the stoma from the inside to try to prevent recurrence of the hernia. She will receive preoperative antibiotics. I advised her that I would anticipate a several day hospital stay. Risks of the procedure were discussed and include but are not limited to bleeding, infection, scarring, adverse drug reaction, need for further surgery, injury of internal organ, and recurrence of her hernia. She and her had an opportunity to ask questions and these were answered to the best of my ability. She desires to proceed with the surgery. ED
[2021-05-26] MEDS ORDERED: DESFLURANE 240 ML INHALANT As Ordered ONE (11:05)
[2021-05-26] MEDS ORDERED: FLUTICASONE HFA 110 MCG 12 GM INHALER (FLOVENT) INH PRN (14:35)
[2021-05-26] MEDS ORDERED: ALBUTEROL 90 MCG/ACT 8GM HFA INHALER INH PRN (14:35)
[2021-05-26] MEDS ORDERED: ONDANSETRON 4MG/2ML VIAL IV PRN ×2 (14:35→14:40)
[2021-05-26] MEDS ORDERED: MORPHINE 2 MG/ML 1ML VIAL (J2270) IV PRN (14:40)
[2021-05-26] MEDS ORDERED: oxyCODONE 5MG TAB PO PRN (14:40)
[2021-05-26] MEDS ORDERED: fentaNYL 100 MCG/2 ML INJECTION (J3010) IV PRN (14:40)
[2021-05-26] MEDS: LR 1,000 ML IV SCH ×2 (15:01→22:47)
[2021-05-26] MEDS ORDERED: PHENYLephrine 500MCG 5ML (100MCG/ML) SYRINGE As Ordered ONE (15:34)
[2021-05-26] MEDS ORDERED: ePHEDrine SULFATE 25 MG/5 ML(5MG/ML) SYRINGE As Ordered ONE (15:34)
[2021-05-26] MEDS ORDERED: B6/F1CAP PO (20:25)
[2021-05-26] MEDS ORDERED: GABA-282 PO (20:25)
[2021-05-26] MEDS ORDERED: GNP250TA9 PO (20:25)
[2021-05-26] MEDS ORDERED: VITA-243 PO (20:25)
[2021-05-26] MEDS ORDERED: COQ1100C5 PO (20:25)
[2021-05-26] MEDS ORDERED: TURM500C PO (20:25)
[2021-05-26] MEDS ORDERED: FERR325T3 PO (20:25)
[2021-05-26] MEDS ORDERED: HOME MED LIST COMPLETE! XX SCH (20:30)
[2021-05-26] MEDS: GABAPENTIN 300 MG CAP PO SCH (21:02)
[2021-05-26] MEDS: MONTELUKAST 10 MG TAB PO SCH (21:03)
[2021-05-26] MEDS: PANTOPRAZOLE 40MG TAB (PROTONIX) PO SCH (21:03)
[2021-05-26] MEDS: CelecoXIB (CeleBREX) 100 MG CAP PO SCH (21:03)
[2021-05-26] MEDS: ROSUVASTATIN 10 MG TAB (CRESTOR) PO SCH (21:04)
[2021-05-26] MEDS: CARVedilol 3.125 MG TAB PO SCH (21:05)
[2021-05-26] MEDS: MORPHINE 15 MG SA TAB PO SCH (21:07)
[2021-05-27 02:00] VITALS: BP 170/68
[2021-05-27] MEDS: PERCOCET 5MG/325MG TAB PO PRN ×4 (02:25→21:05)
[2021-05-27] MEDS: MORPHINE 15 MG SA TAB PO SCH ×3 (05:13→22:49)
[2021-05-27 06:00] VITALS: BP 154/74
[2021-05-27 08:44] LABS: BASO % 0.1 % (0.0-1.0); HEMATOCRIT 36.9 % (36.0-47.0); HEMOGLOBIN 12.2 g/dl (12.0-15.5); LYMPH # 1.4 10^3/uL (1.5-5.0); LYMPH % 8.5 % (24.0-44.0); MEAN CORPUSCULAR HEMOGLOBIN 31.1 pg (27.0-33.0); MEAN CORPUSCULAR HGB CONC 33.1 g/dl (32.0-36.5); MEAN CORPUSCULAR VOLUME 94.1 fl (80.0-96.0); MONO # 1.1 10^3/uL (0.0-0.8); MONO % 7.1 % (2.0-8.0); NEUTROPHILS # 13.2 10^3/uL (1.5-8.5); NEUTROPHILS % 83.7 % (36.0-66.0); PLATELET COUNT, AUTOMATED 267 10^3/uL (150-450); RED BLOOD COUNT 3.92 10^6/uL (4.00-5.40); WHITE BLOOD COUNT 15.8 10^3/uL (4.0-10.0)
--- NOTE | 2021-05-27 08:46 | IPNPDOC ---
Text Note Date of Service The patient was seen on 05/27/21. NOTE General surgery. Dr. 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 Ileostomy also became ischemic and stenoti, S/P laparotomy with lysis of adhesions and creation of a new right upper quadrant ileostomy 05/18. The pt developed a parastomal hernia and bowel obstruction secondary to bowel entrapped in her parastomal hernia 03/18. The pt was now now admitted to undergo a robotic-assisted laparoscopic repair of her parastomal hernia as per Dr. Johnson 05/26/2021. This morning, the patient was concerned she was not on her usual pain regimen of morphine that she takes as an outpatient however she does have MS Contin 15 mg p.o. every 8 ordered which is what she states she takes at home. She also has supplemental Percocet as needed. She is tolerating clear liquids. Denies nausea or vomiting. She is noted to have brown stool in the colostomy bag. Afebrile. Heart rate 95, respiratory rate 12, blood pressure 154/74, 94% 3 L nasal cannula . Currently awake and alert sitting up in bed, having breakfast. Appears in no acute distress at this time. Lungs clear to auscultation S1-S2 regular rate rhythm. Abdomen. Flat, soft, mild tenderness around surgical sites, ileostomy in the right upper quadrant with brown stool noted in the bag. Incisions with dressing clean/dry/intact. Extremities with no edema Labs this morning are pending. Assessment/plan Ileostomy, status post subtotal colectomy for ischemia/parastomal hernia/status post robotic assisted laparoscopic repair of her parastomal hernia as per Dr. Johnson 05/26/2021. The patient is reviewed as per Dr. Johnson. Currently tolerating clear liquids. Incisions are clean/dry/intact. IV fluids at 75 mL/h. Continue with the patient's outpatient pain regimen. Labs this morning are pending. Encourage out of bed continue to monitor. PAF. Eliquis on hold at this time. Hypertensive heart disease takes Lasix 20 mg as needed for edema as outpatient. Monitor for fluid overload. CAD Coreg 3.125 mg p.o. twice daily Crestor aspirin 81 mg on hold at this time. Chronic back pain/fibromyalgia gabapentin 300 mg p.o. twice daily Celebrex 100 mg p.o. twice daily MS Contin 15 mg p.o. every 8 hours currently Percocet 5/325 1 tablet every 4 hours as needed follows with pain management as outpatient. COPD Flovent albuterol as needed. SSS/Pacemaker. DVT prophylaxis. SCD/teds VS,Fishbone, I+O VS, Fishbone, I+O Vital Signs Date Time Temp Pulse Resp B/P (MAP) Pulse Ox O2 Delivery O2 Flow Rate FiO2 05/27/21 06:34 91 Nasal Cannula 2.0 05/27/21 06:00 98.3 95 12 154/74 (100) I&O- Last 24 Hours up to 6 AM 05/27/21 05:59 Intake Total 3045 ml Output Total 500 ml Balance 2545 ml Attending Note Attending Note I reviewed and agree with note by Crystal. Pt very slow to move due to pain. On usual baseline MS contin and Percocet. Encouraged to be up OOB. Continue current care. Crystal Zuluaga May 27, 2021 08:46 Greg Johnson May 29, 2021 13:36
[2021-05-27 09:00] VITALS: O2SAT 91
[2021-05-27] MEDS ORDERED: AMIODARONE 200 MG TAB (PACERONE) PO SCH (09:00)
[2021-05-27 09:19] LABS: BLOOD UREA NITROGEN 7 MG/DL (7-18); CALCIUM LEVEL 8.5 MG/DL (8.8-10.2); CARBON DIOXIDE LEVEL 28 MEQ/L (21-32); CHLORIDE LEVEL 98 MEQ/L (98-107); CREATININE FOR GFR 0.52 MG/DL (0.55-1.30); GLOMERULAR FILTRATION RATE > 60.0 (>45); GLUCOSE, FASTING 107 MG/DL (70-100); POTASSIUM SERUM 4.4 MEQ/L (3.5-5.1); SODIUM LEVEL 133 MEQ/L (136-145)
[2021-05-27] MEDS: DULoxetine 30MG CAPSULE (CYMBALTA) PO SCH ×2 (09:40→21:02)
[2021-05-27] MEDS: GABAPENTIN 300 MG CAP PO SCH ×3 (09:41→21:04)
[2021-05-27] MEDS: TOLTERODINE TARTRATE 2 MG LA CAP (DETROL LA) PO SCH (09:41)
[2021-05-27] MEDS: CARVedilol 3.125 MG TAB PO SCH ×2 (09:41→21:05)
[2021-05-27] MEDS: PANTOPRAZOLE 40MG TAB (PROTONIX) PO SCH (09:41)
[2021-05-27] MEDS: CelecoXIB (CeleBREX) 100 MG CAP PO SCH ×2 (09:41→21:02)
[2021-05-27] MEDS: buPROPion **XL** TABLET 150MG (WELLBUTRIN XL) PO SCH (09:42)
[2021-05-27] MEDS ORDERED: AMLO1TAB24 PO (10:29)
[2021-05-27] MEDS: amLODIPine 5 MG TAB PO SCH (12:07)
[2021-05-27 14:00] VITALS: BP 147/77
[2021-05-27] MEDS: LR 1,000 ML IV SCH ×2 (17:15→21:07)
[2021-05-27] MEDS: FLUTICASONE HFA 110 MCG 12 GM INHALER (FLOVENT) INH SCH (20:05)
[2021-05-27] MEDS: ROSUVASTATIN 10 MG TAB (CRESTOR) PO SCH (21:03)
[2021-05-27] MEDS: MONTELUKAST 10 MG TAB PO SCH (21:03)
[2021-05-27] MEDS: NEXIUM 40 MG PO SCH (21:06)
[2021-05-27 22:00] VITALS: BP 147/67
[2021-05-28] VITALS (9 sets, daily range): BP systolic 124–140; BP diastolic 68–72; O2SAT 87–91
[2021-05-28] MEDS: PERCOCET 5MG/325MG TAB PO PRN ×6 (01:11→23:54)
[2021-05-28] MEDS: MORPHINE 15 MG SA TAB PO SCH ×3 (06:49→21:33)
[2021-05-28] MEDS: FLUTICASONE HFA 110 MCG 12 GM INHALER (FLOVENT) INH SCH ×2 (07:14→19:42)
[2021-05-28] MEDS: amLODIPine 5 MG TAB PO SCH (09:00)
[2021-05-28] MEDS: GABAPENTIN 300 MG CAP PO SCH ×3 (09:39→19:58)
[2021-05-28] MEDS: CelecoXIB (CeleBREX) 100 MG CAP PO SCH ×2 (09:40→19:59)
[2021-05-28] MEDS: buPROPion **XL** TABLET 150MG (WELLBUTRIN XL) PO SCH (09:42)
[2021-05-28] MEDS: TOLTERODINE TARTRATE 2 MG LA CAP (DETROL LA) PO SCH (09:42)
[2021-05-28] MEDS: CARVedilol 3.125 MG TAB PO SCH ×2 (09:42→20:02)
[2021-05-28] MEDS: DULoxetine 30MG CAPSULE (CYMBALTA) PO SCH ×2 (09:44→19:58)
[2021-05-28] MEDS: NEXIUM 40 MG PO SCH ×2 (09:45→19:59)
--- NOTE | 2021-05-28 10:02 | RO ---
OPERATIVE NOTE DATE OF OPERATION: 05/26/2021 PREOPERATIVE DIAGNOSIS: Parastomal hernia. POSTOPERATIVE DIAGNOSES: 1. Parastomal hernia. 2. Ventral incisional hernia. 3. Extensive abdominal adhesions. PROCEDURE PERFORMED: Robotic-assisted laparoscopic repair of parastomal and ventral incisional hernias with mesh with extensive lysis of adhesions. MESH UTILIZED: [employer] Parietex patch, reference code [id number] and lot number [id number]. SURGEON: Greg Johnson MD CLAIM ADJUSTER: None ANESTHESIA: General. INDICATIONS FOR THE PROCEDURE: Patient is a 66-year-old woman who in February 2020 had undergone a subtotal colectomy for infarction. Her ileostomy subsequently stenosed after necrosing and she underwent a revision of her ileostomy into the right upper quadrant. She has had a recent occurrence of a bowel obstruction from an incarceration of small bowel into a parastomal hernia. She is now for a robotic-assisted repair of her parastomal hernia. OPERATIVE PROCEDURE: The patient was brought to the operating room and placed on the table in a supine position. She was placed under general endotracheal anesthesia. Her ostomy appliance was removed. The abdomen was prepped with Betadine. The stoma was covered with a folded gauze sponge held in place with a medium OpSite. The patient's abdomen was draped sterilely. A first robotic trocar was placed in the left upper quadrant. 0.25% Marcaine was infiltrated at each of the trocar sites as needed. A Veress needle was inserted in the left upper quadrant and after a positive hanging drop test, the abdomen was insufflated with carbon dioxide gas. The 8-mm port was placed without difficulty. Initial examination showed that there were several loops of small bowel splayed over the anterior and left lower quadrant abdominal wall with extensive adhesions. A second 8-mm port was placed in the left mid abdomen. Using a cauterizing scissor, some of the adhesions in the left lower quadrant were lysed to free a loop of small bowel that crossed the abdominal wall in this area so that we could place a third trocar in this area. After the small bowel had been carefully freed, the third trocar was placed in the left lower quadrant. The patient was rolled slightly to the right and placed in a slight Trendelenburg position. The patient cart of the [employer] Xi robot was brought into position and the endoscope arm was docked to the middle port. The camera was inserted and targeting took place in the area of the stoma in the right upper quadrant. The additional robotic arms were then docked. A cauterizing scissor was placed in the left upper quadrant and a fenestrated bipolar in the left lower quadrant. I then moved to the control console to proceed with the operation. Initial inspection revealed extensive adhesions of the small bowel to the anterior abdominal wall. There was a flattened loop of bowel adherent into the area of the mid abdomen. An extensive lysis of adhesions was necessary to expose the abdominal wall and the parastomal hernia. Approximately two hours of dissection time was required to clear the abdominal wall and to identify the parastomal hernia. There were several loops of bowel adherent into the parastomal hernia opening and these were freed by lysing the adhesions. In the mid abdomen where the small bowel loop had been freed, there was an area of quite weakened fascia along the midline which measured approximately 8 cm in diameter. Parastomal hernia was slightly lower and to the right of this. There was a segment of the small bowel leading to the stoma that was folded on itself within the hernia and this was freed by additional lysis of adhesions and reduced into the abdomen. The edge of the liver was identified extending down toward the parastomal hernia and adhesions were lysed to free this from the abdominal wall to allow placement of mesh. A ruler was inserted and the dimensions of the parastomal hernia and the weakened area of the anterior abdominal wall were measured. I selected a 15 x 20 cm Parietex patch to be placed. Prior to placement of the patch, the parastomal hernia defect was closed with a running suture of #1 STRATAFIX. This was begun at the superior edge of the hernia and carried inferiorly to narrow the opening without impinging the lumen of the bowel. In order to utilize the #1 STRATAFIX and pass the mesh, the left upper quadrant 8-mm port was converted to a 12-mm port. A second #1 STRATAFIX was used to approximate the fascial tissues, weakened though they were, across the area of weakness in the upper midline. It was possible to achieve a significant improvement in this area by approximating the tissues across this area. The 15 x 20 cm Parietex mesh was then rolled and inserted into the abdomen. This was opened and placed into the right side of the abdomen. Before sewing in the mesh, several 2-0 Vicryl sutures were placed to tack the mesentery of the distal ileum to the lateral abdominal wall inferior to the fascial opening. The mesh was then placed over the stomal opening and extending up onto the anterior abdominal wall to cover the area of the midline fascial weakness and there was excellent coverage of both areas. The mesh was positioned so that it extended over the small bowel of the distal ileum approximately 5 cm farther than the inferior edge of the stomal opening. Several sutures of 2-0 Vicryl were placed to tack the mesh in several menendez positions to hold it for additional suturing. A 2-0 V loc was then begun at the edge of the stomal fascial opening and extending along the midline of the mesh suturing this to the abdominal wall. An additional 2-0 loc was begun at the inferior tail of the mesh where it overlapped the terminal ileum. The mesh was tacked to the abdominal wall so that it wrapped around the small bowel and the mesentery at this point to some degree and this suture was then carried up along this area suturing the mesh to the abdominal wall. Another 2-0 V-loc was used to suture down the superior overlap of the mesh to the abdominal wall so that this wrapped around the small bowel. Additional 2-0 V-Loc sutures were then used to effectively suture the entire periphery of the mesh to the abdominal wall as well as place several transverse sutures across the mesh to hold it securely to the abdominal wall. Several sutures of 3-0 silk were placed from the edge of the mesh to the wall of the bowel and the mesentery where it wrapped around the bowel below the stoma site. This appeared to give an excellent coverage of both the midline fascial defect and the parastomal hernia. The area was inspected for hemostasis, which was excellent. The robotic instruments were withdrawn. The patient cart was undocked and withdrawn. I returned to the patient's side. The 12-mm port was removed and a Caro was used to place a suture of 0 Vicryl in the inner abdominal wall layer in the 12-mm port. Once this was placed, the abdomen was deflated and the trocars were removed. The skin incisions were closed with buried sutures of 4-0 Vicryl and Steri-Strips. Light dressings were applied. The dressing was removed from the stoma and a new ostomy appliance was placed. The patient was straight catheterized with a urine catheter in the operating room. She was then awakened in the operating room, extubated and moved to the recovery room in stable condition. ED
[2021-05-28] MEDS ORDERED: ALBUTEROL 90 MCG/ACT 8GM HFA INHALER INH PRN (11:20)
--- NOTE | 2021-05-28 14:17 | IPNPDOC ---
Text Note Date of Service The patient was seen on 05/28/21. NOTE General surgery. Dr. 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 Ileostomy also became ischemic and stenoti, S/P laparotomy with lysis of adhesions and creation of a new right upper quadrant ileostomy 05/18. The pt developed a parastomal hernia and bowel obstruction secondary to bowel entrapped in her parastomal hernia 03/18. The pt was now now admitted to undergo a robotic-assisted laparoscopic repair of her parastomal hernia as per Dr. Johnson 05/26/2021. The pt continues to have pain, is known to have chronic pain. Has not been out of bed yet today. Is having output from ostomy 265 mL recorded yesterday, 175 mL so far today. Afebrile. Heart rate 79, respiratory rate 16, blood pressure 128/71, 91% 1 L nasal cannula Currently awake and alert. Appears in no acute distress at this time. Lungs clear to auscultation S1-S2 regular rate rhythm. Abdomen. Flat, soft, still with some tenderness around surgical sites, ileostomy in the right upper quadrant with brown stool noted in the bag. Incisions with dressing clean/dry/intact. Extremities with no edema No new labs today. Assessment/plan Ileostomy, status post subtotal colectomy for ischemia/parastomal hernia/status post robotic assisted laparoscopic repair of her parastomal hernia as per Dr. Johnson 05/26/2021. The patient is reviewed as per Dr. Johnson. The patient is advanced to regular diet and IV fluids discontinued. Incisions are clean/dry/intact. Continue with the patient's outpatient pain regimen. Continue to encourage out of bed. PT/OT requested Incentive spirometry continue to monitor. PAF. Eliquis on hold at this time. Hypertensive heart disease takes Lasix 20 mg as needed for edema as outpatient. Monitor for fluid overload. IV fluid discontinued CAD Coreg 3.125 mg p.o. twice daily Crestor aspirin 81 mg on hold at this time. Chronic back pain/fibromyalgia gabapentin 300 mg p.o. twice daily Celebrex 100 mg p.o. twice daily MS Contin 15 mg p.o. every 8 hours currently Percocet 5/325 1 tablet every 4 hours as needed follows with pain management as outpatient. COPD Flovent albuterol as needed. SSS/Pacemaker. DVT prophylaxis. SCD/teds VS,Fishbone, I+O VS, Fishbone, I+O Vital Signs Date Time Temp Pulse Resp B/P (MAP) Pulse Ox O2 Delivery O2 Flow Rate FiO2 05/28/21 13:47 16 05/28/21 12:00 98.2 79 128/71 (90) 91 Nasal Cannula 1.0 I&O- Last 24 Hours up to 6 AM 05/28/21 05:59 Intake Total 3250 ml Output Total 1340 ml Balance 1910 ml Attending Note Attending Note I reviewed and agree with Crystal alvarado. Patient looks better today than yesterday. PT ordered to help get pt moving. Anticipate resuming Eliquis in am 05/29 Crystal Zuluaga May 28, 2021 14:17 Greg Johnson May 29, 2021 13:59
--- NOTE | 2021-05-28 16:56 | REP ---
INDICATION: rt calf pain. COMPARISON: None. TECHNIQUE: Multiple ultrasonographic images of the deep venous structures of the right lower extremity were obtained from the inguinal ligament to the ankle. Venous compression techniques, color doppler imaging, and augmentation techniques were also obtained where appropriate. As per the ACR guidelines the anterior tibial vein can not be effectively evaluated. Only compression techniques in the calf on the peroneal and posterior tibial veins was attempted/performed. FINDINGS: There is no abnormal echogenic material seen within any of the visualized deep venous structures that would suggest acute thrombosis. Coaptation is unremarkable throughout. Doppler interrogation shows an expected response to respiratory variability and augmentation in the thigh. Compression techniques in the calf showed no abnormality. The color flow images show what appears to be a normal vascular pattern throughout the thigh. IMPRESSION: There is no ultrasonographic evidence of deep venous thrombosis involving any of the visualized deep venous structures of the right lower extremity as described above. <Electronically signed by Sam Marcano > 05/28/21 [id number]
[2021-05-28] MEDS: MONTELUKAST 10 MG TAB PO SCH (19:58)
[2021-05-28] MEDS: ROSUVASTATIN 10 MG TAB (CRESTOR) PO SCH (19:59)
[2021-05-29] VITALS (7 sets, daily range): BP systolic 131–139; BP diastolic 66–76; O2SAT 88–92
[2021-05-29] MEDS: ACETAMINOPHEN TAB 650MG DOSE (2X325MG) PO PRN ×2 (02:41→12:06)
[2021-05-29] MEDS: MORPHINE 15 MG SA TAB PO SCH ×3 (05:19→21:11)
[2021-05-29] MEDS: FLUTICASONE HFA 110 MCG 12 GM INHALER (FLOVENT) INH SCH ×2 (09:16→19:28)
[2021-05-29] MEDS: GABAPENTIN 300 MG CAP PO SCH ×3 (10:00→21:06)
[2021-05-29] MEDS: PERCOCET 5MG/325MG TAB PO PRN ×3 (10:00→22:02)
[2021-05-29] MEDS: CelecoXIB (CeleBREX) 100 MG CAP PO SCH ×2 (10:00→21:08)
[2021-05-29] MEDS: NEXIUM 40 MG PO SCH ×2 (10:00→21:09)
[2021-05-29] MEDS: APIXABAN 5 MG TAB (ELIQUIS) PO SCH ×2 (10:01→21:07)
[2021-05-29] MEDS: CARVedilol 3.125 MG TAB PO SCH ×2 (10:01→21:08)
[2021-05-29] MEDS: amLODIPine 5 MG TAB PO SCH (10:01)
[2021-05-29] MEDS: TOLTERODINE TARTRATE 2 MG LA CAP (DETROL LA) PO SCH (10:01)
[2021-05-29] MEDS: buPROPion **XL** TABLET 150MG (WELLBUTRIN XL) PO SCH (10:02)
[2021-05-29] MEDS: DULoxetine 30MG CAPSULE (CYMBALTA) PO SCH ×2 (10:02→21:07)
[2021-05-29] MEDS: ROSUVASTATIN 10 MG TAB (CRESTOR) PO SCH (21:07)
[2021-05-29] MEDS: MONTELUKAST 10 MG TAB PO SCH (21:07)
[2021-05-30] MEDS: ACETAMINOPHEN TAB 650MG DOSE (2X325MG) PO PRN (00:17)
[2021-05-30 02:00] VITALS: BP 129/70
[2021-05-30] MEDS: PERCOCET 5MG/325MG TAB PO PRN ×3 (02:05→13:18)
[2021-05-30] MEDS: MORPHINE 15 MG SA TAB PO SCH ×2 (05:39→14:24)
[2021-05-30 06:00] VITALS: BP 131/70
[2021-05-30 09:00] VITALS: O2SAT 91
[2021-05-30] MEDS: amLODIPine 5 MG TAB PO SCH (09:00)
[2021-05-30] MEDS: buPROPion **XL** TABLET 150MG (WELLBUTRIN XL) PO SCH (09:00)
[2021-05-30] MEDS: TOLTERODINE TARTRATE 2 MG LA CAP (DETROL LA) PO SCH (09:00)
[2021-05-30] MEDS: GABAPENTIN 300 MG CAP PO SCH (09:00)
[2021-05-30 09:01] VITALS: BP 131/70
[2021-05-30] MEDS: CARVedilol 3.125 MG TAB PO SCH (09:01)
[2021-05-30] MEDS: APIXABAN 5 MG TAB (ELIQUIS) PO SCH (09:01)
[2021-05-30] MEDS: NEXIUM 40 MG PO SCH (09:01)
[2021-05-30] MEDS: CelecoXIB (CeleBREX) 100 MG CAP PO SCH (09:01)
[2021-05-30] MEDS: DULoxetine 30MG CAPSULE (CYMBALTA) PO SCH (09:01)
[2021-05-30 10:00] VITALS: BP 129/72
[2021-05-30 14:00] VITALS: BP 118/72
== END 2021-05-30 16:00 | disposition home or self-care (01) | DRG 337 ==
LOC: M OR 05-26 06:08 → M MSPAV 05-26 15:42
PROVIDERS: ADMIT Surgery; ATTEND Surgery
PROC: 0WUF4JZ Supplement Abdominal Wall with Synthetic Substitute, Percutaneous Endoscopic Approach (ICD-10-PCS; 2021-05-26)
PROC: 8E0W4CZ Robotic Assisted Procedure of Trunk Region, Percutaneous Endoscopic Approach (ICD-10-PCS; 2021-05-26)
PROC: 0DN84ZZ Release Small Intestine, Percutaneous Endoscopic Approach (ICD-10-PCS; principal; 2021-05-26 07:30)
DX: K43.5 Parastomal hernia without obstruction or gangrene (principal); Z88.0 Allergy status to penicillin; Z88.1 Allergy status to other antibiotic agents; Z88.8 Allergy status to other drugs, medicaments and biological substances; Z79.01 Long term (current) use of anticoagulants; Z79.891 Long term (current) use of opiate analgesic; Z79.82 Long term (current) use of aspirin; Z79.899 Other long term (current) drug therapy; Z95.0 Presence of cardiac pacemaker; I49.5 Sick sinus syndrome; I25.10 Atherosclerotic heart disease of native coronary artery without angina pectoris; I48.0 Paroxysmal atrial fibrillation; J44.9 Chronic obstructive pulmonary disease, unspecified; I11.9 Hypertensive heart disease without heart failure; M79.7 Fibromyalgia; K43.2 Incisional hernia without obstruction or gangrene; F41.9 Anxiety disorder, unspecified; F32.9 Major depressive disorder, single episode, unspecified; I35.0 Nonrheumatic aortic (valve) stenosis; E78.5 Hyperlipidemia, unspecified; Z87.81 Personal history of (healed) traumatic fracture; R26.81 Unsteadiness on feet; R29.6 Repeated falls; Z86.73 Personal history of transient ischemic attack (TIA), and cerebral infarction without residual deficits

== ENCOUNTER → 2021-04-23 | Outpatient (CLI) | payer MEDICARE, OTHER ==
[2021-04-23 18:19] LABS: BASO # 0.1 10^3/uL (0.0-0.2); BASO % 0.5 % (0.0-1.0); EOS # 0.2 10^3/uL (0.0-0.5); EOS % 1.8 % (0.0-3.0); HEMATOCRIT 35.2 % (36.0-47.0); HEMOGLOBIN 11.3 g/dl (12.0-15.5); LYMPH # 2.1 10^3/uL (1.5-5.0); LYMPH % 22.2 % (24.0-44.0); MEAN CORPUSCULAR HEMOGLOBIN 31.2 pg (27.0-33.0); MEAN CORPUSCULAR HGB CONC 32.1 g/dl (32.0-36.5); MEAN CORPUSCULAR VOLUME 97.2 fl (80.0-96.0); MONO # 0.7 10^3/uL (0.0-0.8); MONO % 6.9 % (2.0-8.0); NEUTROPHILS # 6.5 10^3/uL (1.5-8.5); NEUTROPHILS % 68.1 % (36.0-66.0); PLATELET COUNT, AUTOMATED 226 10^3/uL (150-450); RED BLOOD COUNT 3.62 10^6/uL (4.00-5.40); WHITE BLOOD COUNT 9.6 10^3/uL (4.0-10.0)
[2021-04-23 18:31] LABS: ALBUMIN 2.6 GM/DL (3.2-5.2); ALT/SGPT 16 U/L (12-78); BILIRUBIN,DIRECT < 0.1 MG/DL (0.0-0.2); BILIRUBIN,TOTAL 0.2 MG/DL (0.2-1.0); BLOOD UREA NITROGEN 7 MG/DL (7-18); CALCIUM LEVEL 8.7 MG/DL (8.8-10.2); CARBON DIOXIDE LEVEL 27 MEQ/L (21-32); CHLORIDE LEVEL 102 MEQ/L (98-107); CREATININE FOR GFR 0.62 MG/DL (0.55-1.30); GLOMERULAR FILTRATION RATE > 60.0 (>45); GLUCOSE, FASTING 86 MG/DL (70-100); POTASSIUM SERUM 4.4 MEQ/L (3.5-5.1); SODIUM LEVEL 136 MEQ/L (136-145); TOTAL PROTEIN 5.9 GM/DL (6.4-8.2)
== END ==
LOC: M PLALAB 15:44
PROVIDERS: ATTEND Physician Assistant
DX: E87.1 Hypo-osmolality and hyponatremia (principal)

== ENCOUNTER → 2021-04-23 | Outpatient (CLI) | payer MEDICARE, OTHER | LOC: M LABSMTC 09:58 | PROVIDERS: ATTEND Anesthesiology | DX: Z01.818 Encounter for other preprocedural examination (principal); Z11.52 Encounter for screening for COVID-19 ==

== ENCOUNTER → 2021-05-01 | Outpatient (CLI) | payer MEDICARE, OTHER ==
--- NOTE | 2021-05-01 17:02 | REP ---
INDICATION: ACUTE BRONCHITIS, UNSPECIFIED COMPARISON: 02/17/2021. TECHNIQUE: PA/Lateral FINDINGS: Lungs: There are stable bilateral fibrotic changes. No definite superimposed acute infiltrate is seen. Heart: Normal in size. Mediastinum: There is some calcification and tortuosity of the thoracic aorta. The mediastinal silhouette is unremarkable and unchanged. Pleural angles: There is mild blunting of the left costophrenic angle which could represent a small left pleural effusion.. Bones and soft tissues: There are mild degenerative changes of the spine. A left pacemaker is unchanged. Metallic plate and screws are seen in the cervical spine. There are metallic clips in the right upper quadrant of the abdomen. IMPRESSION: No acute pulmonary disease. Chronic fibrotic changes. Possible small left effusion. <Electronically signed by Aston Lowe > 05/01/21 [id number]
== END ==
LOC: M PLAIMG 15:16
PROVIDERS: ATTEND Physician Assistant
DX: J90 Pleural effusion, not elsewhere classified (principal); J84.10 Pulmonary fibrosis, unspecified

== ENCOUNTER → 2021-05-21 | Outpatient (CLI) | payer MEDICARE, OTHER ==
[~2021-05-21] MED LIST changes: +COLA100C5 PO; +CVS1CAP2 PO; +ESTR62CR PV; +GABA600T4 PO; +OSTE5TAB PO
== END ==
LOC: M LABSMTC 09:48
PROVIDERS: ATTEND Anesthesiology
DX: Z01.818 Encounter for other preprocedural examination (principal); Z11.52 Encounter for screening for COVID-19

== ENCOUNTER 2021-06-07 10:48 | Inpatient (IN) | payer MEDICARE, OTHER ==
[~2021-06-07] VITALS: Ht 152.4 cm; Wt 49.6 kg
[~2021-06-07 10:48] MED LIST changes: +B6/F1CAP PO; +COQ1100C5 PO; +FERR325T3 PO; +TURM500C PO; +VITA-243 PO
[2021-06-07] MEDS ORDERED: ACETAMINOPHEN TAB 650MG DOSE (2X325MG) PO ONE (11:30)
[2021-06-07 11:42] LABS: ABG BASE EXCESS 0.6 (-2.0-2.0); ABG HCO3 25.2 MEQ/L (22.0-26.0); ABG O2 SATURATION 97.6 % (95.0-99.0); ABG PARTIAL PRESSURE CO2 40.6 mmHg (35.0-45.0); ABG PARTIAL PRESSURE O2 97.3 mmHg (75.0-100.0); ABG TOTAL CO2 26.5 MEQ/L (23.0-31.0); ABG pH (ARTERIAL) 7.411 UNITS (7.350-7.450)
[2021-06-07 11:51] LABS: BASO % 0.3 % (0.0-1.0); EOS % 0.1 % (0.0-3.0); HEMATOCRIT 33.7 % (36.0-47.0); LYMPH # 0.9 10^3/uL (1.5-5.0); LYMPH % 5.7 % (24.0-44.0); MEAN CORPUSCULAR HGB CONC 32.6 g/dl (32.0-36.5); MEAN CORPUSCULAR VOLUME 94.9 fl (80.0-96.0); MONO # 0.9 10^3/uL (0.0-0.8); MONO % 6.1 % (2.0-8.0); NEUTROPHILS # 13.4 10^3/uL (1.5-8.5); NEUTROPHILS % 87.2 % (36.0-66.0); PLATELET COUNT, AUTOMATED 324 10^3/uL (150-450); RED BLOOD COUNT 3.55 10^6/uL (4.00-5.40); WHITE BLOOD COUNT 15.4 10^3/uL (4.0-10.0)
--- NOTE | 2021-06-07 11:54 | REP ---
INDICATION: fever COMPARISON: 05/01/2021 TECHNIQUE: Portable AP view of the chest FINDINGS: The mediastinum and cardiac silhouette are stable and within normal limits for portable technique. The lung narayan demonstrates relatively stable chronic changes primarily involving the lower lobes (left greater than right). Skeletal structures are intact. IMPRESSION: Stable chronic appearing changes. Cannot exclude subtle left lower lobe airspace disease. <Electronically signed by Ez Hurd > 06/07/21 [id number]
[2021-06-07 12:27] LABS: BLOOD UREA NITROGEN 9 MG/DL (7-18); CALCIUM LEVEL 8.4 MG/DL (8.8-10.2); CARBON DIOXIDE LEVEL 30 MEQ/L (21-32); CHLORIDE LEVEL 91 MEQ/L (98-107); CK-MB VALUE MASS 1.1 NG/ML (<3.6); CPK CREATINE PHOSPHOKINASE 33 U/L (26-192); CREATININE FOR GFR 0.92 MG/DL (0.55-1.30); GLOMERULAR FILTRATION RATE > 60.0 (>45); GLUCOSE, FASTING 89 MG/DL (70-100); MB/CK RELATIVE INDEX 3.33 (< OR =4); NT-PRO BNP 993 PG/ML (<125); POTASSIUM SERUM 5.1 MEQ/L (3.5-5.1); SODIUM LEVEL 127 MEQ/L (136-145); TROPONIN I < 0.02 NG/ML (< 0.10)
[2021-06-07] MEDS ORDERED: ISOVUE-370 76% 100ML VIAL As Ordered ONE (12:39)
--- NOTE | 2021-06-07 13:30 | REP ---
INDICATION: 10 days post-op with fever. COMPARISON: 03/08/2021 TECHNIQUE: Axial contrast-enhanced images from the lung bases to the pubic symphysis using 100 cc Isovue 370 intravenous contrast material. Coronal and sagittal reformations obtained. This CT examination was performed using the following dose reduction techniques: Automated exposure control, adjustment of mA and/or kv according to the patient's size, and the use of iterative reconstruction technique. FINDINGS: Current examination demonstrates high-grade small bowel obstruction with transition to collapsed short segment of small bowel at the right anterior abdominal wall ostomy which also includes herniating mesenteric fat and what appears to be a 4.9 x 3.0 x 3.0 cm seroma versus forming abscess. Patient is noted to be status post complete colectomy with residual collapsed Ragini's pouch in the deep pelvis. No free air or drainable intraperitoneal collection. Liver, spleen, pancreas, bilateral adrenal glands and kidneys are essentially normal. Pelvis demonstrates normal bladder and prior hysterectomy. No significant ascites. No free air. No intraperitoneal or retroperitoneal adenopathy. Abdominal aorta demonstrates stable ectatic change measuring approximately 3.3 cm diameter. Musculoskeletal structures demonstrate age-related degenerative changes without acute osseous abnormality. Lung bases demonstrate significant chronic interstitial changes with superimposed ground-glass opacities and left basilar atelectasis. IMPRESSION: 1. High-grade small bowel obstruction with transition to short segment of collapsed small bowel at the enterostomy along with small amount of herniating mesenteric fat and a small fluid collection in the subcutaneous soft tissue of the ostomy site. <Electronically signed by Ez Hurd > 06/07/21 [id number]
--- NOTE | 2021-06-07 15:42 | HPEPDOC ---
General Surgery H&P Date of Admission Jun 07, 2021 Attending Physician: JARROD ABRBOZA MD History and Physical CHIEF COMPLAINT: abdominal pain, decreased ostomy output HISTORY OF PRESENT ILLNESS: Patient is a 66-year-old female, patient of Dr. Greg Johnson, who recently underwent robotic assisted laparoscopic repair of her parastomal hernia in the midline incisional hernias on May 18, 2021, discharged home May 30, 2021. She was brought in by her significant other reporting that he has noted her to be hypoxic, has had increasing abdominal discomfort ever since surgery, worsened through to the weekend and decreased output from her ostomy. When I entered her room she actually looks confused, not really giving much details and was not fully oriented to the days of the week. So I called her boyfriend and had a conversation with him on this been going on and he does report that she seemed confused to him which he noted late last night and early this morning when she woke up. Also he noted that her sats were in the low 80s. They actually called last Tuesday and had a conversation with him. She was reporting increased epigastric discomfort at that time but he was reporting that she still has some output from her ostomy though decreased in amount. She took a dose of milk of magnesia and he reports that this worked and the following morning (Tuesday) she had more output. This did not totally relieve the discomfort and she continues to complain of epigastric discomfort. She has chronic pain and for which she takes regularly high doses of morphine. She also has as needed doses of hydrocodone. This is being managed at the pain clinic. She was seen early last week and because the hydrocodone was not able to make her more comfortable this was changed to 20 mg of oxycodone every 4 hours. Her boyfriend has a log of the medication she is taking and that time she has been taking it and for the past 3 days she looks to be taking about three 20 mg tablets in the average through the course of the day. He does not report any vomiting. She has decreased intake due to the discomfort, sensation of fullness. Although he says that she has been adequately drinking liquids. No fevers or chills being reported. Her incision are bruised up but otherwise stable. In the emergency room she was evaluated and was found to have evidence for bowel obstruction and this seems to be at the level of the neck of the stoma. Thus I was called in and asked to admit the patient. ALLERGIES: Please see below. HOME MEDICATIONS: Please see below. PAST SURGICAL HISTORY: Significant for a subtotal colectomy on March 28, 2020. She underwent resection of her stenotic ileostomy with lysis of adhesions and creation of a new right upper quadrant ileostomy in April of 2020. She had a pacemaker implanted on October 19 2020. She has previously undergone a right carotid endarterectomy. She has had surgical spine fusion, cholecystectomy, Section and hysterectomy. She had an EGD and colonoscopy on February 262020. PAST MEDICAL HISTORY: Significant for sick sinus syndrome and she has undergone a pacemaker placement earlier this year. She has a history of coronary artery disease. She has a history of paroxysmal atrial fibrillation and is currently on Eliquis for anticoagulation. She has cerebrovascular disease and is status post a right carotid endarterectomy. She has probable chronic obstructive pulmonary disease and hypertensive heart disease. She has chronic back pain with fibromyalgia. She has anxiety and depression. There is a report of some aortic stenosis. She has a history of hypertension and hyperlipidemia. She suffered a right humerus fracture in June of 2020 and was treated also for a T12 compression fracture which occurred more recently. PERSONAL/SOCIAL HISTORY: Former smoker has quit more than 5 years ago. REVIEW OF SYSTEMS: Due to her confusion, I cannot formally do the detailed review of systems. From what is reported to me by her , she has had poor oral intake for at least about 3 days or so but was able to tolerate liquids. No fevers or chills being reported. No reports of unexplained weight loss. The confusion is acute probably started last night or this morning though she has had prior episodes of confusion mainly she was found mostly with hyponatremia. She does have chronic complaints of back pain and she is on chronic narcotics. From what I could tell she takes morphine tablet 50 mg every 8 hours and scheduled doses and she has originally hydrocodone 05/31/2025 for breakthrough pain and this was recently switched to oxycodone 20 mg every 4 hours for breakthrough pain. Along with this she also takes gabapentin and Celebrex. She has a history of sick sinus syndrome was found to be in atrial fibrillation. She has a pacemaker and is on Eliquis for this. Her reports that she was complaining of vague chest pains this morning. Also he has noted decreased saturations in the mid 80s. Though he reported that this was also happening even before the surgery. She has had significant medical and surgical admissions for the past year including bowel infarction requiring subtotal colectomy. She has reported bouts of constipation. He reports he normally has semiliquid/semisolid output from her ileostomy normally. PHYSICAL EXAMINATION: VITAL SIGNS: Please see below. GENERAL APPEARANCE: Patient seen awake but looks confused. She knows she is in the hospital but is somewhat disoriented with a days also with how she was doing for the past week or so. HEENT: Normocephalic, dry lips. She has a recently placed NGT (14F) at about 50 cms. this is draining thick gastric material, food remnants, nonbilious. Seems to be at the stomach on auscultation. I flushed and aspirated it multiple times and would intermittently work.. CHEST: Clear to auscultation. NECK: Supple. No thyromegaly. No lymphadenopathies. LUNGS: Lung sounds are clear to auscultation bilaterally. No wheezing appr eciated. HEART: No chest wall abnormalities. Heart rate and rhythm are regular with no murmurs. ABDOMEN: Abdomen appears soft but does look moderately distended and tympanic to percussion. Hypoactive bowel sounds. She had prior midline incision. She has a right side ostomy that appears healthy. No obvious protrusions around it. No skin redness around it. No output in the bag. No noticeable fullness to signify significant seroma or hematoma around prior parastomal hernia. She has 3 incisions over on the left paramedian area with associated skin bruising. No deep ecchymosis or hematoma noted. Mildly tender on palpation around the incision and around the midline. SKIN: Warm and dry. EXTREMITIES: No significant extremity edema. NEUROLOGICAL: Patient seems to be confused, she is not oriented primarily to time. She is oriented to place. She is very vague with the details of her symptoms. ANCILLARIES:. LABORATORY DATA: Please see below. MICROBIOLOGY: Please see below. IMAGING: She had a CT abdomen and pelvis that was performed here in the emergency room. I reviewed the images and this does show significance for what looks to be obstruction at the level of the ostomy/fascia. There is a small seroma medial to the subcutaneous portion of the ostomy. IMPRESSION AND PLAN: Postop small bowel obstruction at the level of the neck of the ostomy. She has recent robotic assisted laparoscopic parastomal hernia repair with a 20 x 15 cm composite mesh placed in an IPOm (+) fashion/Sugarbaker configuration. Hyponatremia Confusion may be related to the hyponatremia may be related to the narcotics. She has an NG tube placed in the emergency room. Try to flush test to make this work better and got some more output from this. We will keep this to low intermittent wall suction. I have held most of her narcotics for now and will just intermittently use morphine for pain control. I suspect the confusion and metabolic encephalopathy may be related to her increased narcotic use. She appears to have chronic recurring hyponatremia and have spoken to the hospitalist service with regards to this and I will let them manage this. This is suspected to be secondary to polydipsia. I will speak to Dr. Johnson, her surgeon, tomorrow morning and most likely transfer primary care to his service. Vital Signs Vital Signs Date Time Temp Pulse Resp B/P (MAP) Pulse Ox O2 Delivery O2 Flow Rate FiO2 06/07/21 15:01 82 06/07/21 15:00 17 126/64 (84) 06/07/21 14:16 91 06/07/21 13:30 99.0 06/07/21 12:16 Nasal Cannula 2.0 Laboratory Data Labs 24H Laboratory Tests 2 06/07/21 11:24: Immature Granulocyte % (Auto) 0.6, Neutrophils (%) (Auto) 87.2H, Lymphocytes (%) (Auto) 5.7L, Monocytes (%) (Auto) 6.1, Eosinophils (%) (Auto) 0.1, Basophils (%) (Auto) 0.3, Neutrophils # (Auto) 13.4H, Lymphocytes # (Auto) 0.9L, Monocytes # (Auto) 0.9H, Eosinophils # (Auto) 0.0, Basophils # (Auto) 0.0, Nucleated Red Blood Cells % (auto) 0.0, Anion Gap 6L, Glomerular Filtration Rate > 60.0, Lactic Acid Level 1.0, Calcium Level 8.4L, Total Creatine Kinase 33, Creatine Kinase MB 1.1, Creatine Kinase MB Relative Index 3.33, Troponin I < 0.02, NT- Pro-B-Type Natriuretic Peptide 993H 06/07/21 11:28: Blood Gas Bicarbonate Standard 25.0, Arterial Blood pH 7.411, Arterial Blood Partial Pressure CO2 40.6, Arterial Blood Partial Pressure O2 97.3, Arterial Blood Total CO2 26.5, Arterial Blood HCO3 25.2, Arterial Blood Base Excess 0.6, Arterial Blood Oxygen Saturation 97.6 06/07/21 12:10: Urine Color YELLOW, Urine Appearance CLEAR, Urine pH 6.0, Urine Specific Mayo 1.003, Urine Protein NEGATIVE, Urine Glucose (UA) NEGATIVE, Urine Ketones NEGATIVE, Urine Blood NEGATIVE, Urine Nitrite NEGATIVE, Urine Bilirubin NEGATIVE, Urine Urobilinogen 0.2, Urine Leukocyte Esterase NEGATIVE, Urine WBC (Auto) 0, Urine RBC (Auto) 0, Urine Hyaline Casts (Auto) 0, Urine Bacteria (Auto) NEGATIVE, Urine Squamous Epithelial Cells 0, Urine Sperm (Auto) CBC/BMP Laboratory Tests 06/07/21 11:24 Microbiology Microbiology 06/07/21 Respiratory Virus Panel (PCR) (BECKY) - Final, Complete 06/07/21 Blood Culture, Received Pending 06/07/21 Blood Culture, Received Pending Home Medications Scheduled Amlodipine Besylate (Amlodipine Besylate) 5 Mg Tablet, 5 MG PO DAILY, (Reported) Apixaban (Eliquis) 5 Mg Tablet, 5 MG PO BID, (Reported) Ascorbic Acid (Vitamin C) 500 Mg Tablet, 1,000 MG PO DAILY, (Reported) Aspirin (Aspirin) 81 Mg Tab.chew, 81 MG PO QHS, (Reported) B6/Folic/B12/Coffee/Phosphatid (Neuriva Plus Brain Perform Cap) 1.7MG-400 Capsule, 1 CAP PO QHS, (Reported) Bupropion HCl (Wellbutrin Xl) 150 Mg Tab.er.24h, 150 MG PO DAILY, (Reported) Calcium Carbonate/Vitamin D3 (Liquid Calcium with Vitamin D) 1 Each Capsule, 1 CAP PO DAILY, (Reported) Carvedilol (Carvedilol) 3.125 Mg Tablet, 3.125 MG PO BID, (Reported) Celecoxib (Celebrex) 100 Mg Capsule, 100 MG PO BID, (Reported) Cholecalciferol (Vitamin D3) (Vitamin D3) 25 Mcg Tablet, 25 MCG PO DAILY, (Reported) Duloxetine Hcl (Duloxetine HCl) 30 Mg Capsule.dr, 60 MG PO DAILY, (Reported) Duloxetine Hcl (Duloxetine HCl) 30 Mg Capsule.dr, 30 MG PO QHS, (Reported) Esomeprazole Magnesium (Nexium) 40 Mg Capsule.dr, 40 MG PO BID, (Reported) has to take name brand Ferrous Sulfate (Ferrous Sulfate) 325 Mg Tablet.dr, 325 MG PO DAILY, (Reported) Folic Acid (Folic Acid) 1 Mg Tablet, 1 MG PO DAILY, (Reported) Gabapentin (Gabapentin) 300 Mg Capsule, 300 MG PO BID, (Reported) AM AND DINNERTIME (EVENING) Gabapentin (Gabapentin) 300 Mg Capsule, 600 MG PO QHS, (Reported) Glucosamine/D3/Boswellia Sheila (Osteo Bi-Flex Caplet) 1 Each Tablet, 1 TAB PO BID, (Reported) Lactobacillus Combo No.10 (Probiotic) 1 Each Capsule, 1 CAP PO DAILY, (Reported) Loratadine (Loratadine) 10 Mg Tablet, 10 MG PO DAILY, (Reported) Magnesium Oxide (Magnesium) 250 Mg Tablet, 250 MG PO DAILY, (Reported) Montelukast Sodium (Singulair) 10 Mg Tablet, 10 MG PO QHS, (Reported) Morphine Sulfate (Morphine Sulfate ER) 15 Mg Tablet.er, 15 MG PO Q8H, (Reported) 0700, 1500, 2300 Multivitamin,Therapeutic (Thera-Tabs) 1 Each Tablet, 1 TAB PO DAILY, (Reported) Rosuvastatin Calcium (Rosuvastatin Calcium) 10 Mg Tablet, 10 MG PO QHS, (Reported) Tolterodine Tartrate (Detrol LA) 4 Mg Cap.er.24h, 4 MG PO DAILY, (Reported) Turmeric/Turmeric Root Extract (Turmeric 500 mg Capsule) 1 Each Capsule, 500 MG PO DAILY, (Reported) Ubidecarenone (Co Q-10) 100 Mg Capsule, 100 MG PO DAILY, (Reported) Scheduled PRN Albuterol Sulfate (Proair Hfa) 8.5 Gm Hfa.aer.ad, 2 PUFFS INH QID PRN for SHORTNESS OF BREATH, (Reported) Cholestyramine (with Sugar) (Cholestyramine Packet) 4 Gm Powd.pack, 2 GM PO BID PRN for DIARRHEA, (Reported) Conjugated Estrogens (Premarin) 30 Gm Cream.appl, 1 APPLIC PV 2XW PRN for ATR OPHY, (Reported) Docusate Sodium (Colace) 100 Mg Capsule, 100 MG PO DAILY PRN for CONSTIPATION, (Reported) Fluticasone Propionate (Flovent Hfa) 110 Mcg/Act Aer.w.adap, 2 PUFF INH BID PRN for SHORTNESS OF BREATH, (Reported) Furosemide (Lasix) 20 Mg Tablet, 20 MG PO DAILY PRN for EDEMA, (Reported) Naloxone HCl (Narcan) 4 Mg [place], 1 SPRAY NARES ONCE PRN for OVERDOSE, (Reported) Ondansetron HCl (Ondansetron HCl) 8 Mg Tablet, 8 MG PO TID PRN for NAUSEA OR VOMITING, (Reported) Oxycodone Hcl (Oxycodone HCl) 20 Mg Tablet, 20-30 MG PO Q4H PRN for PAIN LEVEL 5-10, (Reported) Prednisone (Prednisone) 5 Mg Tablet, 5 MG PO DAILY PRN for INFLAMMATION, (Reported) Promethazine HCl (Promethazine HCl) 25 Mg Tablet, 25 MG PO Q6H PRN for NAUSEA OR VOMITING, (Reported) Sodium Chloride (Sodium Chloride) 1 Gm Tablet, 1 GM PO DAILY PRN for LOW SODIUM, (Reported) Valacyclovir HCl (Valacyclovir) 1,000 Mg Tablet, 1,000 MG PO Q8H PRN for FLARE UPS, (Reported) Zolpidem Tartrate (Zolpidem Tartrate) 10 Mg Tablet, 5 MG PO QHS PRN for INSOMNIA, (Reported) Allergies Coded Allergies: Penicillins (Verified Allergy, Severe, anaphylaxis, 05/18/21) pregabalin (Verified Allergy, Severe, ANAPHYLAXIS, 05/18/21) Cephalosporins (Verified Adverse Reaction, Severe, red man syndrome, 05/18/21) A-FIB/CHADSVASC A-FIB History Current/History of A-Fib/PAF?: Yes Current PO Anticoag Therapy: Yes JARROD BARBOZA MD Jun 07, 2021 15:42
[2021-06-07] MEDS: PANTOPRAZOLE 40MG VIAL (C9113 PER 1) IV SCH (15:45)
[2021-06-07] MEDS: LR 1,000 ML IV SCH (15:45)
[2021-06-07] MEDS ORDERED: OXYC20TA2 PO (16:31)
[2021-06-07] MEDS ORDERED: HOME MED LIST COMPLETE! XX SCH (16:35)
--- NOTE | 2021-06-07 19:16 | ECGEPIP ---
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
[2021-06-07] MEDS ORDERED: ALBUTEROL 90 MCG/ACT 8GM HFA INHALER INH PRN (19:40)
[2021-06-07] MEDS: FLUTICASONE HFA 110 MCG 12 GM INHALER (FLOVENT) INH SCH (20:00)
[2021-06-07] MEDS: ASPIRIN 81 MG CHEW TABLET PO SCH (21:54)
[2021-06-07] MEDS: LevoFLOXacin IV 750 MG in IV 1 EA IV SCH (21:54)
[2021-06-07] MEDS: SENOKOT S TAB PO SCH (21:55)
[2021-06-07] MEDS: CARVedilol 3.125 MG TAB PO SCH (21:59)
--- NOTE | 2021-06-07 22:04 | CR.PDOC ---
General Date of Consultation: Jun 07, 2021 Consultation REASON FOR CONSULTATION/CHIEF COMPLAINT: Management of medical comorbidities HISTORY OF PRESENT ILLNESS: 66-year-old female who most recently on May 26, 2021 had a robotic assisted laparoscopic peristomal hernia and ventral hernia repair and lysis of abdominal adhesions and discharged from the hospital on May 30, 2021 presented to the ER for epigastric pain, abdominal disten tion, poor stomal output, and confusion. Patient was found to have small bowel obstruction. Patient was also noted to be hyponatremic at 127. Patient is also on high-dose of narcotics chronically at home for chronic abdominal. She was admitted under the surgical service for small bowel obstruction and hospitalist has been consulted for management of her medical comorbidities. She complained of epigastric and periumbilical pain , sharp and constant in nature with some severe cramps in between was 7/10 in intensity but now a little better after getting pain medication. She new she was in hospital but thought it was [facility], [place] . She could tell me that Dr Johnson did her abdominal surgeries. CXR showed possible left lower lobe airspace disease. CT abdomen and pelvis shows High-grade small bowel obstruction with transition to short segment of collapsed small bowel at the enterostomy along with small amount of herniating mesenteric fat and a small fluid collection in the subcutaneous soft tissue of the ostomy site. No vomiting. Decreased stomal output. ALLERGIES: Please see below. HOME MEDICATIONS: Please see below. PAST MEDICAL HISTORY: Paroxysmal Atrial fibrillation. Sick sinus syndrome s/p pacemaker placement in Sep 2020 CAD Carotid artery disease status post right carotid endarterectomy History of CVA Essential tremors Chronic hyponatremia endometriosis scleroderma SLE. Fibromyalgia. Aortic valve stenosis with chronic heart murmur. pulmonary hypertension. aortic abdominal aneurysm measuring 3.1 cm. COPD Chronic back pain Chronic abdominal pain dependent on narcotics Anxiety and depression Hypertension with hypertensive heart disease Hyperlipidemia History of right humerus fracture in June of 2020 T12 compression fracture in 2020 Ischemic colitis Recurrent small bowel obstructions PAST SURGICAL HISTORY: Subtotal colectomy with ileostomy creation for ischemic colon in February 2020 Ischemia and stenosis of the ileostomy in April 2020 status post laparotomy with lysis of adhesions and creation of a new right upper quadrant ileostomy. Development of peristomal hernia status post robotic assisted laparoscopic peristomal hernia and ventral hernia repair and lysis of adhesions Pacemaker in September 2020 Cervical spine fusion Cholecystectomy section Hysterectomy Right carotid endarterectomy FAMILY HISTORY: Father had Hypertension SOCIAL HISTORY: Former smoker Does not drink Does not use any recreational drugs REVIEW OF SYSTEMS: All 10 points review of systems are negative except those mentioned in HPI. PHYSICAL EXAMINATION: VITAL SIGNS: Please see below. GENERAL APPEARANCE: awake, alert, laying in bed no acute distress. HEENT: Normo cephalic atraumatic, anicteric eyes. RESPIRATORY: clear to auscultation CARDIOVASCULAR: S1 , S2 regular no rub or gallop. Systolic murmur present at the base of the heart. ABDOMEN: soft, mildly distended, tenderness in the epigastric region. EXTREMITIES: No edema LABORATORY DATA: Please see below. ASSESSMENT/PLAN: 66-year-old female with multiple medical problems admitted for small bowel obstruction with confusion. Small bowel obstruction As per surgery Acute metabolic encephalopathy Likely due to medications which include multiple narcotic medications and other sedative medications associated with mild hyponatremia Her sodium is at 127 which is likely due to mild dehydration and being on diuretics. We will stop Lasix. Hold Wellbutrin, Cymbalta, gabapentin. Can be restarted whenpatient taking p.o. and no longer confused Continue on IV fluid as per surgery Hyponatremia will check urine osmolality dn urine sodium in a prior admission urine osmolality was < 100 suggestive of primary polydipsia. will stop lasix and salt tabs. CXR with left lower lobe air space disease ? early pneumonia/ atelectasis will give levofloxacin. Paroxysmal A. fib/sick sinus syndrome/pacemaker We will hold Eliquis as the patient may need surgical intervention Continue aspirin and Coreg Hypertension with hypertensive heart disease Continue Coreg and amlodipine COPD Continue albuterol and fluticasone inhaler Continue Singular when taking p.o. Anxiety and depression Can restart Wellbutrin when taking p.o. Hyperlipidemia Hold statin for now can restart when taking p.o. Vital Signs/I&O Vital Signs Date Time Temp Pulse Resp B/P (MAP) Pulse Ox O2 Delivery O2 Flow Rate FiO2 06/07/21 15:45 98.8 18 139/75 (96) 95 Nasal Cannula 2.0 06/07/21 15:31 83 Laboratory Data Labs 24H Laboratory Tests 2 06/07/21 11:24: Immature Granulocyte % (Auto) 0.6, Neutrophils (%) (Auto) 87.2H, Lymphocytes (%) (Auto) 5.7L, Monocytes (%) (Auto) 6.1, Eosinophils (%) (Auto) 0.1, Basophils (%) (Auto) 0.3, Neutrophils # (Auto) 13.4H, Lymphocytes # (Auto) 0.9L, Monocytes # (Auto) 0.9H, Eosinophils # (Auto) 0.0, Basophils # (Auto) 0.0, Nucleated Red Blood Cells % (auto) 0.0, Anion Gap 6L, Glomerular Filtration Rate > 60.0, Lactic Acid Level 1.0, Calcium Level 8.4L, Total Creatine Kinase 33, Creatine Kinase MB 1.1, Creatine Kinase MB Relative Index 3.33, Troponin I < 0.02, PF-Ocs-D-Type Natriuretic Peptide 993H 06/07/21 11:28: Blood Gas Bicarbonate Standard 25.0, Arterial Blood pH 7.411, Arterial Blood Partial Pressure CO2 40.6, Arterial Blood Partial Pressure O2 97.3, Arterial Blood Total CO2 26.5, Arterial Blood HCO3 25.2, Arterial Blood Base Excess 0.6, Arterial Blood Oxygen Saturation 97.6 06/07/21 12:10: Urine Color YELLOW, Urine Appearance CLEAR, Urine pH 6.0, Urine Specific [place] 1.003, Urine Protein NEGATIVE, Urine Glucose (UA) NEGATIVE, Urine Ketones NEGATIVE, Urine Blood NEGATIVE, Urine Nitrite NEGATIVE, Urine Bilirubin NEGATIVE, Urine Urobilinogen 0.2, Urine Leukocyte Esterase NEGATIVE, Urine WBC (Auto) 0, Urine RBC (Auto) 0, Urine Hyaline Casts (Auto) 0, Urine Bacteria (Auto) NEGATIVE, Urine Squamous Epithelial Cells 0, Urine Sperm (Auto) CBC/BMP Laboratory Tests 06/07/21 11:24 Microbiology Microbiology 06/07/21 Respiratory Virus Panel (PCR) (BECKY) - Final, Complete 06/07/21 Blood Culture, Received Pending 06/07/21 Blood Culture, Received Pending Allergies Coded Allergies: Penicillins (Verified Allergy, Severe, anaphylaxis, 05/18/21) pregabalin (Verified Allergy, Severe, ANAPHYLAXIS, 05/18/21) Cephalosporins (Verified Adverse Reaction, Severe, red man syndrome, 05/18/21) Home Medications Scheduled Amlodipine Besylate (Amlodipine Besylate) 5 Mg Tablet, 5 MG PO DAILY, (Reported) Apixaban (Eliquis) 5 Mg Tablet, 5 MG PO BID, (Reported) Ascorbic Acid (Vitamin C) 500 Mg Tablet, 1,000 MG PO DAILY, (Reported) Aspirin (Aspirin) 81 Mg Tab.chew, 81 MG PO QHS, (Reported) B6/Folic/B12/Coffee/Phosphatid (Neuriva Plus Brain Perform Cap) 1.7MG-400 Capsule, 1 CAP PO QHS, (Reported) Bupropion HCl (Wellbutrin Xl) 150 Mg Tab.er.24h, 150 MG PO DAILY, (Reported) Calcium Carbonate/Vitamin D3 (Liquid Calcium with Vitamin D) 1 Each Capsule, 1 CAP PO DAILY, (Reported) Carvedilol (Carvedilol) 3.125 Mg Tablet, 3.125 MG PO BID, (Reported) Celecoxib (Celebrex) 100 Mg Capsule, 100 MG PO BID, (Reported) Cholecalciferol (Vitamin D3) (Vitamin D3) 25 Mcg Tablet, 25 MCG PO DAILY, (Reported) Duloxetine Hcl (Duloxetine HCl) 30 Mg Capsule.dr, 60 MG PO DAILY, (Reported) Duloxetine Hcl (Duloxetine HCl) 30 Mg Capsule.dr, 30 MG PO QHS, (Reported) Esomeprazole Magnesium (Nexium) 40 Mg Capsule.dr, 40 MG PO BID, (Reported) has to take name brand Ferrous Sulfate (Ferrous Sulfate) 325 Mg Tablet.dr, 325 MG PO DAILY, (Reported) Folic Acid (Folic Acid) 1 Mg Tablet, 1 MG PO DAILY, (Reported) Gabapentin (Gabapentin) 300 Mg Capsule, 300 MG PO BID, (Reported) AM AND DINNERTIME (EVENING) Gabapentin (Gabapentin) 300 Mg Capsule, 600 MG PO QHS, (Reported) Glucosamine/D3/Boswellia Sheila (Osteo Bi-Flex Caplet) 1 Each Tablet, 1 TAB PO BID, (Reported) Lactobacillus Combo No.10 (Probiotic) 1 Each Capsule, 1 CAP PO DAILY, (Reported) Loratadine (Loratadine) 10 Mg Tablet, 10 MG PO DAILY, (Reported) Magnesium Oxide (Magnesium) 250 Mg Tablet, 250 MG PO DAILY, (Reported) Montelukast Sodium (Singulair) 10 Mg Tablet, 10 MG PO QHS, (Reported) Morphine Sulfate (Morphine Sulfate ER) 15 Mg Tablet.er, 15 MG PO Q8H, (Reported) 0700, 1500, 2300 Multivitamin,Therapeutic (Thera-Tabs) 1 Each Tablet, 1 TAB PO DAILY, (Reported) Rosuvastatin Calcium (Rosuvastatin Calcium) 10 Mg Tablet, 10 MG PO QHS, (Reported) Tolterodine Tartrate (Detrol LA) 4 Mg Cap.er.24h, 4 MG PO DAILY, (Reported) AM AND DINNERTIME Turmeric/Turmeric Root Extract (Turmeric 500 mg Capsule) 1 Each Capsule, 500 MG PO DAILY, (Reported) Ubidecarenone (Co Q-10) 100 Mg Capsule, 100 MG PO DAILY, (Reported) Scheduled PRN Albuterol Sulfate (Proair Hfa) 8.5 Gm Hfa.aer.ad, 2 PUFFS INH QID PRN for SHORTNESS OF BREATH, (Reported) Cholestyramine (with Sugar) (Cholestyramine Packet) 4 Gm Powd.pack, 2 GM PO BID PRN for DIARRHEA, (Reported) Conjugated Estrogens (Premarin) 30 Gm Cream.appl, 1 APPLIC PV 2XW PRN for ATROPHY, (Reported) Docusate Sodium (Colace) 100 Mg Capsule, 100 MG PO DAILY PRN for CONSTIPATION, (Reported) Fluticasone Propionate (Flovent Hfa) 110 Mcg/Act Aer.w.adap, 2 PUFF INH BID PRN for SHORTNESS OF BREATH, (Reported) Furosemide (Lasix) 20 Mg Tablet, 20 MG PO DAILY PRN for EDEMA, (Reported) Naloxone HCl (Narcan) 4 Mg [place], 1 SPRAY NARES ONCE PRN for OVERDOSE, (Reported) Ondansetron HCl (Ondansetron HCl) 8 Mg Tablet, 8 MG PO TID PRN for NAUSEA OR VOMITING, (Reported) Oxycodone Hcl (Oxycodone HCl) 20 Mg Tablet, 20-30 MG PO Q4H PRN for PAIN LEVEL 5-10, (Reported) Prednisone (Prednisone) 5 Mg Tablet, 5 MG PO DAILY PRN for INFLAMMATION, (Reported) Promethazine HCl (Promethazine HCl) 25 Mg Tablet, 25 MG PO Q6H PRN for NAUSEA OR VOMITING, (Reported) Sodium Chloride (Sodium Chloride) 1 Gm Tablet, 1 GM PO DAILY PRN for LOW SODIUM, (Reported) Valacyclovir HCl (Valacyclovir) 1,000 Mg Tablet, 1,000 MG PO Q8H PRN for FLARE UPS, (Reported) Zolpidem Tartrate (Zolpidem Tartrate) 10 Mg Tablet, 5 MG PO QHS PRN for INSOMNIA, (Reported) Ashley Rosas MD Jun 07, 2021 17:08
[2021-06-08] VITALS: BP 135/61
[2021-06-08] MEDS: LR 1,000 ML IV SCH ×4 (01:21→17:23)
[2021-06-08 04:00] VITALS: BP 143/64
[2021-06-08 04:17] LABS: BASO % 0.2 % (0.0-1.0); EOS % 0.3 % (0.0-3.0); HEMATOCRIT 33.7 % (36.0-47.0); HEMOGLOBIN 10.8 g/dl (12.0-15.5); LYMPH # 0.8 10^3/uL (1.5-5.0); LYMPH % 6.9 % (24.0-44.0); MEAN CORPUSCULAR HEMOGLOBIN 29.9 pg (27.0-33.0); MEAN CORPUSCULAR VOLUME 93.4 fl (80.0-96.0); MONO # 0.9 10^3/uL (0.0-0.8); MONO % 7.3 % (2.0-8.0); NEUTROPHILS # 10.3 10^3/uL (1.5-8.5); NEUTROPHILS % 84.7 % (36.0-66.0); PLATELET COUNT, AUTOMATED 277 10^3/uL (150-450); RED BLOOD COUNT 3.61 10^6/uL (4.00-5.40); WHITE BLOOD COUNT 12.1 10^3/uL (4.0-10.0)
[2021-06-08 04:43] LABS: BLOOD UREA NITROGEN 8 MG/DL (7-18); CALCIUM LEVEL 7.6 MG/DL (8.8-10.2); CARBON DIOXIDE LEVEL 31 MEQ/L (21-32); CHLORIDE LEVEL 98 MEQ/L (98-107); GLOMERULAR FILTRATION RATE > 60.0 (>45); GLUCOSE, FASTING 80 MG/DL (70-100); POTASSIUM SERUM 4.1 MEQ/L (3.5-5.1); SODIUM LEVEL 134 MEQ/L (136-145)
[2021-06-08] MEDS: FLUTICASONE HFA 110 MCG 12 GM INHALER (FLOVENT) INH SCH ×2 (07:13→19:56)
[2021-06-08 08:00] VITALS: BP 151/70
[2021-06-08] MEDS: SENOKOT S TAB PO SCH ×2 (09:24→21:25)
[2021-06-08] MEDS: PANTOPRAZOLE 40MG VIAL (C9113 PER 1) IV SCH (09:24)
[2021-06-08] MEDS: amLODIPine 5 MG TAB PO SCH (09:25)
[2021-06-08] MEDS: CARVedilol 3.125 MG TAB PO SCH ×2 (09:27→21:25)
[2021-06-08 12:00] VITALS: BP 139/63
[2021-06-08] MEDS: KETOROLAC 30 MG/ML 1ML VIAL IV PRN (12:45)
[2021-06-08] MEDS: ONDANSETRON 4MG/2ML VIAL IV PRN (12:45)
[2021-06-08 16:00] VITALS: BP 144/69
--- NOTE | 2021-06-08 18:14 | IPNPDOC ---
Text Note Date of Service The patient was seen on 06/08/21. NOTE Called Emiliano and left a message. Emiliano had told nurse that patient had rolled out of bed 4 days ago and he found her on her knees ont floor he thinks patient may have hit her head so ordered a CT head. VS,Fishbone, I+O VS, Fishbone, I+O Laboratory Tests 06/08/21 03:30 Vital Signs Date Time Temp Pulse Resp B/P (MAP) Pulse Ox O2 Delivery O2 Flow Rate FiO2 06/08/21 16:00 97.6 98 20 144/69 (94) 100 Nasal Cannula 2.0 I&O- Last 24 Hours up to 6 AM 06/08/21 06:00 Intake Total 2475 ml Output Total 1350 ml Balance 1125 ml Ashley Rosas MD Jun 08, 2021 18:14
--- NOTE | 2021-06-08 18:37 | REPVR ---
PROCEDURE INFORMATION: Exam: CT Head Without Contrast Exam date and time: 06/08/2021 5:05 PM Age: 66 years old Clinical indication: Injury or trauma; Fall; Blunt trauma (contusions or hematomas); Additional info: Fall at home with possible head trauma TECHNIQUE: Imaging protocol: Computed tomography of the head without contrast. Radiation optimization: All CT scans at this facility use at least one of these dose optimization techniques: automated exposure control; mA and/or kV adjustment per patient size (includes targeted exams where dose is matched to clinical indication); or iterative reconstruction. COMPARISON: CT Head without contrast 03/20/2021 2:51 PM FINDINGS: Brain: There is no acute intracranial hemorrhage, cerebral edema, or midline shift. Chronic microvascular ischemic changes are seen in the periventricular white matter. Age-related cerebral and cerebellar volume loss is present. Cerebral ventricles: Mild ex vacuo dilation of the lateral ventricles is noted. Paranasal sinuses: There is no acute sinusitis. Mastoid air cells: The mastoid air cells are clear. Orbital cavity: The included orbital structures are unremarkable. Vasculature: Atherosclerotic calcifications are seen involving the cavernous carotid arteries. Bones/joints: No acute fracture. Soft tissues: Unremarkable. IMPRESSION: 1. No acute intracranial abnormality. 2. Atrophy and chronic deep white matter ischemic changes. Electronically signed by: Jayro Alves On 06/08/2021 18:37:12 PM
--- NOTE | 2021-06-08 19:56 | IPN ---
PROGRESS NOTE DATE: 06/08/2021 HISTORY: The patient is a 66-year-old woman who was admitted by Dr. Quesada yesterday for a small-bowel obstruction. She had undergone on the 26 of May a robotic assisted laparoscopic repair of a parastomal and ventral incisional hernia using a 15 by 20 cm piece of Parietex mesh. She did well and was discharged home on the 30 of May. She has a history of chronic pain and the [facility] has been managing her with M.S. Contin 15 mg three times daily. Apparently she was seen as an outpatient at the pain clinic and they had also added some Oxycodone as needed for more severe pain. She was admitted on the with complaints of abdominal pain with decreased ostomy output but she was also found to be somewhat confused and her had reported that she was hypoxic at home. A CT scan suggested a SBO. She has a nasogastric tube in place and has been receiving IV fluids. The Hospitalist was consulted to assist in the management of her other medical issues as well. Vital signs show that she has been afebrile over the past 24 hours. Her pulse is in eh 80's and low 90's. Her blood pressure has been in the 130's to low 150's systolic. INTAKE AND OUTPUT: Intake and output from the showed 725 in with 800 out in urine. OBJECTIVE: PHYSICAL EXAMINATION: GENERAL APPEARANCE: The patient is alert and responsive. She does seem a little vague but does recognize me though I have not seen her in some 10 days. She appears fairly comfortable at rest. The NG tube has a small amount of bilious fluid in the tubing and the container. HEART: Regular rhythm of about 90. LUNGS: Good bilateral breath sounds. ABDOMEN: Does not appear distended. Her ostomy has an appliance in place which appears to be empty. The abdomen is soft throughout and she does have some bowel sounds present. She has a small amount of bruising around her upper and lower left sided trocar sites and these all appear to be healing well. LABORATORY STUDIES: Today white count of 12 which is down from 15 yesterday. Hemoglobin is 11 with a hematocrit of 34 and the platelet count is 277. Differential count shows 85% neutrophils and 7% lymphocytes. Chemistry profile shows a sodium of 134 which is up from 127 yesterday. Potassium is 4.1, chloride 98, CO2 of 31, BUN of 8, creatinine 0.6 and a glucose of 80. IMPRESSION: The patient had presented with abdominal pain and decreased ostomy output. She was on several narcotic preparations and was also having some confusion. I reviewed her CT scan and she does appear to have a relative narrowing at the point where her distal ileum transits beneath the edge of the mesh in the right lateral abdomen. There is a small fluid collection in the parastomal hernia which is not surprising but no signs of any free air or acute inflammation. She does have some dilated proximal small bowel. PLAN: 1. We will continue the NG tube for now. 2. We will take a non-operative course at this point in hopes that her bowel obstruction will resolve. There may be some degree of ileus as well based on her significant narcotic use while at home. 3. We will try to get her moving with physical therapy in the near future as well. 4. Once her stomach has been decompressed, we may be able to undertake a water soluble contrast GI series to see if this will show flow through the bowel. ED
[2021-06-08 20:00] VITALS: BP 149/69
[2021-06-08] MEDS: ASPIRIN 81 MG CHEW TABLET PO SCH (21:25)
[2021-06-09] VITALS (10 sets, daily range): BP systolic 100–186; BP diastolic 60–85
[2021-06-09] MEDS: KETOROLAC 30 MG/ML 1ML VIAL IV PRN ×2 (00:25→19:11)
[2021-06-09] MEDS: MORPHINE 4 MG/ML 1ML VIAL/SYRINGE (J2270) IV PRN ×2 (00:26→05:02)
--- NOTE | 2021-06-09 01:28 | REPVR ---
PROCEDURE INFORMATION: Exam: XR Chest Exam date and time: 06/09/2021 1:19 AM Age: 66 years old Clinical indication: Device placement; Ng tube; Additional info: Ng tube confirmation TECHNIQUE: Imaging protocol: XR of the chest. Views: 1 view. COMPARISON: CR Chest, 1 view 06/07/2021 11:31 AM FINDINGS: Tubes, catheters and devices: Nasogastric tube in the stomach. Left chest pacemaker. Lungs: Mild nonspecific bilateral perihilar reticulonodular opacities. Pleural spaces: Unremarkable. No pleural effusion. No pneumothorax. Heart/Mediastinum: Unremarkable. No cardiomegaly. Bones/joints: Mild osteopenia. Gastrointestinal tract: Gaseous distension of multiple small bowel loops in the upper abdomen. Organs: Status post cholecystectomy. IMPRESSION: Nasogastric tube in the stomach. Electronically signed by: Seferino Velez On 06/09/2021 01:28:03 AM
[2021-06-09 04:08] LABS: BASO % 0.2 % (0.0-1.0); EOS % 0.1 % (0.0-3.0); HEMATOCRIT 37.9 % (36.0-47.0); HEMOGLOBIN 12.4 g/dl (12.0-15.5); LYMPH # 1.2 10^3/uL (1.5-5.0); LYMPH % 12.9 % (24.0-44.0); MEAN CORPUSCULAR HEMOGLOBIN 30.1 pg (27.0-33.0); MEAN CORPUSCULAR HGB CONC 32.7 g/dl (32.0-36.5); MONO % 10.4 % (2.0-8.0); NEUTROPHILS # 7.1 10^3/uL (1.5-8.5); PLATELET COUNT, AUTOMATED 304 10^3/uL (150-450); RED BLOOD COUNT 4.12 10^6/uL (4.00-5.40); WHITE BLOOD COUNT 9.4 10^3/uL (4.0-10.0)
[2021-06-09 04:35] LABS: BLOOD UREA NITROGEN 6 MG/DL (7-18); CALCIUM LEVEL 7.9 MG/DL (8.8-10.2); CARBON DIOXIDE LEVEL 29 MEQ/L (21-32); CHLORIDE LEVEL 95 MEQ/L (98-107); GLOMERULAR FILTRATION RATE > 60.0 (>45); GLUCOSE, FASTING 83 MG/DL (70-100); POTASSIUM SERUM 3.1 MEQ/L (3.5-5.1); SODIUM LEVEL 131 MEQ/L (136-145)
[2021-06-09] MEDS: KCL 40MEQ in NS 1000ML 1,000 ML IV SCH ×3 (06:03→23:54)
[2021-06-09 06:06] LABS: MAGNESIUM LEVEL 1.8 MG/DL (1.8-2.4)
[2021-06-09] MEDS: FLUTICASONE HFA 110 MCG 12 GM INHALER (FLOVENT) INH SCH ×2 (07:44→20:17)
--- NOTE | 2021-06-09 09:33 | IPNPDOC ---
Text Note Date of Service The patient was seen on 06/09/21. NOTE General surgery. Dr. Johnson The patient is a 66-year-old female status post robotic assisted laparoscopic repair of parastomal and ventral hernia 05/26/2021, admitted 06/07/2021 with small bowel obstruction. NG tube is currently in place. Afebrile. Heart rate 91, respiratory rate 17, blood pressure 172/82, 99% 2 L nasal cannula. Patient is awake and alert, sitting up in bed. Lungs are clear to auscultation S1-S2 regular rate rhythm Abdomen is soft, does not appear distended, ostomy with gas noted in the bag. 50 mL stool documented 06/08. NG tube output 200 mL yesterday, 150 mL so far today. WBC this morning 9.4, this is decreased from 12.1. Hemoglobin 12.4. Sodium 131, potassium 3.1. Assessment/plan Status post robotic assisted laparoscopic repair of parastomal and ventral hernia 05/26/2021, admitted 06/07/2021 with small bowel obstruction. The patient is reviewed as per Dr. Johnson. NG tube in place. NPO. IVF. Encourage OOB. Hypokalemia KCL suppl added to IVF. mag level WNL. Hyponatremia. IVF [id number]. VS,Fishbone, I+O VS, Fishbone, I+O Laboratory Tests 06/09/21 03:55 Vital Signs Date Time Temp Pulse Resp B/P (MAP) Pulse Ox O2 Delivery O2 Flow Rate FiO2 06/09/21 08:00 97.5 91 17 172/82 (112) 99 Nasal Cannula 2.0 I&O- Last 24 Hours up to 6 AM 06/09/21 06:00 Intake Total 2825 ml Output Total 1550 ml Balance 1275 ml Attending Note Attending Note I agree with entry by Crystal. I saw patient later in day. Looks comfortable. Increased stool out ostomy. Abd soft and nondistended/nontender. Imp: seems to be resolving obstructive process. Plan: Continue NG charmaine MEDINA in am. Crystal Zuluaga Jun 09, 2021 09:33 Greg Johnson Jun 11, 2021 19:50
[2021-06-09] MEDS: SENOKOT S TAB PO SCH ×2 (10:05→21:00)
[2021-06-09] MEDS: PANTOPRAZOLE 40MG VIAL (C9113 PER 1) IV SCH (10:05)
[2021-06-09] MEDS: CARVedilol 3.125 MG TAB PO SCH ×2 (10:06→21:45)
[2021-06-09] MEDS: amLODIPine 5 MG TAB PO SCH (10:07)
--- NOTE | 2021-06-09 11:32 | IPNPDOC ---
Text Note Date of Service The patient was seen on 06/09/21. NOTE Subjective: Patient is a 66-year-old female who was admitted by the general surgery team for a small bowel obstruction. Hospitalist were consulted due to the patient being hyponatremic. Patient was thought to have possible polydipsia. Patient also became hypokalemic overnight. Patient has IV fluids which switched to normal saline with 40 mEq of potassium last night. Patient says that she has been passing some minimal amount of gas into her ostomy. Patient says that her abdominal pain is improving. Review of systems: General: Patient denies fevers HEENT: Patient denies headaches Cardiovascular: Patient denies chest pain Respiratory: Patient denies shortness of breath, cough GI: Patient reports improved abdominal pain : Patient denies increased frequency or pain with urination Physical exam: Vitals: See below General: Alert and oriented female patient who was sitting up in bed with NG tube in nasal cannula oxygen in place when walked in. Patient did not appear to be in any acute distress. HEENT: Normocephalic, atraumatic, moist mucous membranes. Neck: No lymphadenopathy or thyromegaly Cardiac: Regular rate and rhythm, no murmurs, normal S1, normal S2 Pulm: Clear to auscultation bilaterally. No wheezes, rhonchi, rales Abd: Nondistended, nontender to palpation, normal bowel sounds Ext: No edema bilateral lower extremities Labs: See below Imaging: Chest x-ray performed on 06/09/2021 was reported to show nasogastric tube in the stomach. Assessment/plan: 66-year-old female recently had laparoscopic hernia repair performed by Dr. Johnson who presented on 06/07/2021 with small bowel obstruction who was also found to have hyponatremia. 1. Small bowel obstruction. Management per the general surgery team. 2. Hyponatremia. Urine osmolality was within normal limits. We have stopped Lasix and will continue to monitor. Patient sodium level did drop overnight and the patient's fluids have been switched to normal saline with 40 mEq of p otassium chloride. We will continue to monitor the patient sodium with a repeat BMP later on this afternoon. 3. Hypokalemia. This may be secondary to the NG tube being placed on suction. Potassium chloride added to fluids as above. Will replete if necessary on repeat labs. 4. Acute metabolic encephalopathy. Most likely secondary to multiple narcotic medications other sedate of medications associated with mild hyponatremia. Holding these at this time. Continue IV fluids. CT scan of the head was performed and did not show any acute intracranial abnormality. 5. Hypertension with hypertensive heart disease. Continue Coreg and amlodipine 6. COPD. Continue albuterol fluticasone inhaler. 7. Anxiety depression. Can restart Wellbutrin when taking p.o. 8. Hyperlipidemia. Continue statin once taking p.o. 9. Paroxysmal atrial fibrillation/sick sinus syndrome/pacemaker. Hold Eliquis due to need for possible surgical intervention. Will resume once patient is tolerating p.o. intake and no longer needs surgery. 10. Chest x-ray with left lower lobe airspace disease. Possible early pneumonia or atelectasis. Will give levofloxacin. DVT Prophylaxis: Teds and sequentials with early ambulation Disposition: Pending improvement in small bowel obstruction. VS,Fishbone, I+O VS, Fishbone, I+O Laboratory Tests 06/09/21 03:55 Vital Signs Date Time Temp Pulse Resp B/P (MAP) Pulse Ox O2 Delivery O2 Flow Rate FiO2 06/09/21 10:07 94 146/69 06/09/21 08:00 97.5 17 99 Nasal Cannula 2.0 I&O- Last 24 Hours up to 6 AM 06/09/21 06:00 Intake Total 2825 ml Output Total 1550 ml Balance 1275 ml LISETTE PASCAL DO Jun 09, 2021 11:32
--- NOTE | 2021-06-09 15:17 | REP ---
INDICATION: confirm NG tube placement COMPARISON: 06/09/2021 at 1:05 a.m. TECHNIQUE: Portable AP view of the chest FINDINGS: Nasogastric tube extends just below the left hemidiaphragm and may benefit from advancement to ensure that the side port is below the diaphragm. Mediastinum and cardiac silhouette are stable and within normal limits. Lung narayan demonstrate chronic appearing changes with subtle right upper lobe and left lower lobe airspace disease suspected. No effusion. No pneumothorax. Skeletal structures intact. IMPRESSION: 1. Consider advancement to the nasogastric tube to ensure that the side port is below the diaphragm. 2. Chronic stable changes with subtle superimposed right upper lobe and left lower lobe airspace disease suspected. <Electronically signed by Ez Hurd > 06/09/21 [id number]
[2021-06-09 17:17] LABS: BLOOD UREA NITROGEN 6 MG/DL (7-18); CARBON DIOXIDE LEVEL 25 MEQ/L (21-32); CHLORIDE LEVEL 99 MEQ/L (98-107); CREATININE FOR GFR 0.39 MG/DL (0.55-1.30); GLOMERULAR FILTRATION RATE > 60.0 (>45); GLUCOSE, FASTING 73 MG/DL (70-100); POTASSIUM SERUM 4.2 MEQ/L (3.5-5.1); SODIUM LEVEL 133 MEQ/L (136-145)
--- NOTE | 2021-06-09 19:11 | REP ---
INDICATION: confirm ng tube placement COMPARISON: 06/09/2021 at 2:42 p.m. TECHNIQUE: Portable AP view of the chest FINDINGS: The side port of the nasogastric tube is above the level of the diaphragm and requires advancement. Mediastinum and cardiac silhouette are stable. Lung narayan demonstrate chronic change and subtle left lower lobe airspace disease cannot be excluded. IMPRESSION: 1. Nasogastric tube requires advancement. 2. Subtle left lower lobe early airspace disease suspected. <Electronically signed by Ez Hurd > 06/09/21 [id number]
[2021-06-09] MEDS: ASPIRIN 81 MG CHEW TABLET PO SCH (21:44)
[2021-06-09] MEDS: LevoFLOXacin IV 750 MG in IV 1 EA IV SCH (21:45)
[2021-06-09] MEDS: ONDANSETRON 4MG/2ML VIAL IV PRN (21:54)
--- NOTE | 2021-06-09 22:34 | REPVR ---
PROCEDURE INFORMATION: Exam: XR Chest Exam date and time: 06/09/2021 8:44 PM Age: 66 years old Clinical indication: Device placement; Ng tube; Additional info: Ng tube placement confirmation TECHNIQUE: Imaging protocol: XR of the chest. Views: 1 view. COMPARISON: CR Chest, 1 view 06/09/2021 6:43 PM FINDINGS: Tubes, catheters and devices: NG tube extends into the stomach Lungs: Degree of lung inflation is normal. No evidence of pulmonary edema. No focal consolidation or parenchymal lung mass. Pleural spaces: No pleural effusion or pneumothorax. Heart/Mediastinum: Cardiac silhouette appears normal. No adenopathy or hilar mass. Pacemaker is present, with right atrial and right ventricular leads. Bones/joints: Osseous structures show no concerning abnormality. Cervical spine fixation hardware is present. IMPRESSION: 1. No acute or focal cardiopulmonary process. 2. NG tube within the gastric fundus. Electronically signed by: Lei Lawrence On 06/09/2021 22:33:31 PM
--- NOTE | 2021-06-09 23:57 | REPVR ---
PROCEDURE INFORMATION: Exam: XR Chest Exam date and time: 06/09/2021 11:51 PM Age: 66 years old Clinical indication: Device placement; Ng tube; Additional info: Ng tube placement confirmation TECHNIQUE: Imaging protocol: XR of the chest. Views: 1 view. COMPARISON: CR PORTABLE CHEST X-RAY 06/09/2021 8:32 PM FINDINGS: Tubes, catheters and devices: Nasogastric tube lies in the gastric fundus Lungs: Degree of lung inflation is normal. No evidence of pulmonary edema. No focal consolidation or parenchymal lung mass. Pleural spaces: No pleural effusion or pneumothorax. Heart/Mediastinum: Cardiac silhouette appears normal. No adenopathy or hilar mass. Pacemaker is present, with right atrial and right ventricular leads. Bones/joints: Osseous structures show no concerning abnormality. Old appearing posttraumatic deformity of the right humerus surgical neck IMPRESSION: 1. No acute or focal cardiopulmonary process. 2. NG tube appears to lie in the gastric fundus Electronically signed by: Lei Lawrence On 06/09/2021 23:56:55 PM
[2021-06-10] VITALS (11 sets, daily range): BP systolic 124–179; BP diastolic 65–90
[2021-06-10] MEDS: MORPHINE 4 MG/ML 1ML VIAL/SYRINGE (J2270) IV PRN
[2021-06-10 05:27] LABS: BASO % 0.2 % (0.0-1.0); EOS % 0.4 % (0.0-3.0); HEMATOCRIT 37.9 % (36.0-47.0); HEMOGLOBIN 12.1 g/dl (12.0-15.5); LYMPH # 1.3 10^3/uL (1.5-5.0); MEAN CORPUSCULAR HGB CONC 31.9 g/dl (32.0-36.5); MEAN CORPUSCULAR VOLUME 93.8 fl (80.0-96.0); MONO % 10.1 % (2.0-8.0); NEUTROPHILS # 7.3 10^3/uL (1.5-8.5); NEUTROPHILS % 75.6 % (36.0-66.0); PLATELET COUNT, AUTOMATED 296 10^3/uL (150-450); RED BLOOD COUNT 4.04 10^6/uL (4.00-5.40); WHITE BLOOD COUNT 9.6 10^3/uL (4.0-10.0)
[2021-06-10 05:45] LABS: BLOOD UREA NITROGEN 7 MG/DL (7-18); CALCIUM LEVEL 7.7 MG/DL (8.8-10.2); CARBON DIOXIDE LEVEL 24 MEQ/L (21-32); CHLORIDE LEVEL 101 MEQ/L (98-107); CREATININE FOR GFR 0.53 MG/DL (0.55-1.30); GLOMERULAR FILTRATION RATE > 60.0 (>45); GLUCOSE, FASTING 63 MG/DL (70-100); POTASSIUM SERUM 5.6 MEQ/L (3.5-5.1); SODIUM LEVEL 133 MEQ/L (136-145)
[2021-06-10] MEDS: CARVedilol 3.125 MG TAB PO SCH ×2 (08:18→19:54)
[2021-06-10] MEDS: amLODIPine 5 MG TAB PO SCH (08:18)
[2021-06-10] MEDS: SENOKOT S TAB PO SCH ×2 (08:19→20:30)
--- NOTE | 2021-06-10 08:19 | REP ---
INDICATION: SBO COMPARISON: None. TECHNIQUE: Supine view of the abdomen and pelvis. FINDINGS: Ostomy overlies the right mid abdomen. Mildly prominent air-filled distended loops of small bowel are noted with air in large bowel also identified. Postsurgical changes include marshall and suture material throughout the abdomen and pelvis. Differential diagnosis includes early/partial obstruction as well as enterocolitis. IMPRESSION: Nonspecific findings as described above. Cannot exclude early/partial small bowel obstruction as well as enteritis. <Electronically signed by Ez Hurd > 06/10/21 [id number]
[2021-06-10] MEDS: FLUTICASONE HFA 110 MCG 12 GM INHALER (FLOVENT) INH SCH ×2 (08:33→20:00)
[2021-06-10] MEDS: PANTOPRAZOLE 40MG VIAL (C9113 PER 1) IV SCH (09:19)
[2021-06-10] MEDS: KETOROLAC 30 MG/ML 1ML VIAL IV PRN ×2 (09:21→15:39)
[2021-06-10] MEDS: ONDANSETRON 4MG/2ML VIAL IV PRN ×2 (12:06→18:24)
--- NOTE | 2021-06-10 14:11 | IPNPDOC ---
Text Note Date of Service The patient was seen on 06/10/21. NOTE Subjective: Patient is a 66-year-old female who was admitted by general surgery for small bowel obstruction. Hospitalist were consulted due to patient being hyponatremic. Patient was thought to have possible polydipsia. Patient became hypokalemic 2 nights ago and had IV fluids switched to 40 mEq of potassium. Patient became hyperkalemic so the fluids have been stopped. Patient is alert today but is only oriented to person and place. Patient denies any pain in her abdomen. Patient pulled out her NG tube multiple times last night and has been since left out this morning. Review of systems: General: Patient denies fevers HEENT: Patient denies headaches Cardiovascular: Patient denies chest pain Respiratory: Patient denies shortness of breath, cough GI: Patient denies abdominal pain, nausea, vomiting, diarrhea : Patient denies increased frequency or pain with urination Physical exam: Vitals: See below General: Alert and oriented female patient who is oriented to person place but not time who was sitting up in bed I walked in. Patient did not appear to be in any acute distress. HEENT: Normocephalic, atraumatic, moist mucous membranes. Neck: No lymphadenopathy or thyromegaly Cardiac: Regular rate and rhythm, no murmurs, normal S1, normal S2 Pulm: Clear to auscultation bilaterally. No wheezes, rhonchi, rales Abd: Nondistended, minimal tenderness to palpation, patient has ostomy on the right side of the abdomen, no rebound tenderness, abdomen was soft Ext: No edema bilateral lower extremities Labs: See below Imaging: Chest x-ray performed on 06/09/2021 is reported to show consider advancement to the nasogastric tube to ensure that the side-port is below the diaphragm. Chronic stable changes with subtle superimposed right lobe upper lobe and left lower lobe airspace disease suspected. Chest x-ray performed on 06/09/2021 was reported to show nasogastric tube requires advancement. Subtle left lower lobe early airspace disease suspected. Chest x-ray performed on 06/09/2021 is reported to show no acute or focal cardiopulmonary process. NG tube within the gastric fundus. Chest x-ray performed on 06/09/2021 was reported to show no acute or focal cardiopulmonary process. NG tube appears to lie in the gastric fundus. Abdominal x-ray performed on 06/10/2021 is reported to show mildly prominent air-filled distended loops of small bowel are noted with air in the large bowel also identified. Nonspecific findings. Cannot exclude early/partial small bowel obstruction as well as enteritis. Assessment/plan: 66-year-old female who recently had laparoscopic hernia repair presented to the hospital on 06/07/2021 with small bowel obstruction was also found to have hyponatremia 1. Small bowel obstruction. This appears to be improving with increased output in her ostomy. Dr. Johnson of general surgery has remove the NG tube. We will continue to monitor. 2. Hyponatremia. This appears chronic in nature. Diuretics have been stopped. Patient's sodium level has slightly increased but is still lower than the normal range. We will continue to monitor. 3. Hypokalemia. This is resolved and patient is actually hyperkalemic today. Patient is most likely hyperkalemic due to the fact that she was receiving IV fluids with potassium in them and the nasogastric tube being removed from suction. We will recheck the BMP later on today. 4. Acute metabolic cephalopathy. Most likely secondary to multiple narcotic medications with mild hyponatremia. CT scan of the head was performed not show any acute intracranial abnormality. 5. Hypertension with hypertensive heart disease. Continue Coreg and amlodipine. 6. COPD. Continue albuterol and fluticasone inhalers. 7. Anxiety and depression. Can restart Wellbutrin now that she is taking p.o. 8. Hyperlipidemia. Can restart statin once taking p.o. 9. Paroxysmal atrial fibrillation/sick sinus syndrome/pacemaker. Does not appear the patient will need surgical intervention so Eliquis can be restarted tomorrow. We will continue with Coreg. 10. Chest x-ray with left lower lobe airspace disease. Possible early pneumonia or atelectasis. Levofloxacin was given. DVT Prophylaxis: Teds and sequentials Disposition: Pending improvement in small bowel obstruction. Late entry: I was called by the patient's nurse stating the patient had gone into atrial fibrillation with rapid ventricular response in the 120s 130s. I started 25 mg of metoprolol p.o. to be given once. I went down to evaluate the patient and the patient's heart rate was in the 150s 170s on hall monitor. EKG was ordered and the first EKG that was done did show atrial fibrillation with a rapid ventricular response of a heart rate in the 150s. The second EKG that the nurse handed me showed sinus tachycardia with a heart rate of 109. Patient was consistently in atrial fibrillation with an RVR in the 150s to 170s. The decision was made to bolus the patient as the patient appeared clinically dry on exam. Patient was also given 5 mg of IV Lopressor. Patient's heart rate was coming down at the time I left the bedside at 1858 to sign out to the night team. Patient was hemodynamically stable with a blood pressure in the 120s/80s prior to the metoprolol being given. VS,Fishbone, I+O VS, Fishbone, I+O Laboratory Tests 06/09/21 16:29 06/10/21 04:31 Vital Signs Date Time Temp Pulse Resp B/P (MAP) Pulse Ox O2 Delivery O2 Flow Rate FiO2 06/10/21 12:00 97.5 88 18 137/65 (89) 94 Room Air 06/10/21 04:00 2.0 I&O- Last 24 Hours up to 6 AM 06/10/21 06:00 Intake Total 3125 ml Output Total 2925 ml Balance 200 ml LISETTE PASCAL DO Jun 10, 2021 14:11
--- NOTE | 2021-06-10 15:08 | IPNPDOC ---
Text Note Date of Service The patient was seen on 06/10/21. NOTE General surgery. Dr. Johnson The patient is a 66-year-old female status post robotic assisted laparoscopic repair of parastomal and ventral hernia 05/26/2021, admitted 06/07/2021 with small bowel obstruction. The pt pulled out her NGT multiple times overnight and it was subsequently left out. Afebrile. VSS 600 mL stool documented yesterday. NG tube output 375 mL yesterday. WBC this morning 9.6 Hemoglobin 12.1 Sodium 133, potassium 5.6. AXR Ostomy overlies the right mid abdomen. Mildly prominent air-filled distended loops of small bowel are noted with air in large bowel also identified. Postsurgical changes include marshall and suture material throughout the abdomen and pelvis. Differential diagnosis includes early/partial obstruction as well as enterocolitis. IMPRESSION: Nonspecific findings as described above. Cannot exclude early/partial small bowel obstruction as well as enteritis. <Electronically signed by Ez Hurd > 06/10/21 0815 Assessment/plan Status post robotic assisted laparoscopic repair of parastomal and ventral hernia 05/26/2021, admitted 06/07/2021 with small bowel obstruction. The patient is reviewed as per Dr. Johnson. NG tube left out this AM NPO with ice chips. IVF discontinued. Imaging reviewed as per Dr Johnson, similar c/w previous imaging. Continue to monitor. VS,Fishbone, I+O VS, Fishbone, I+O Laboratory Tests 06/09/21 16:29 06/10/21 04:31 Vital Signs Date Time Temp Pulse Resp B/P (MAP) Pulse Ox O2 Delivery O2 Flow Rate FiO2 06/10/21 12:00 97.5 88 18 137/65 (89) 94 Room Air 06/10/21 04:00 2.0 I&O- Last 24 Hours up to 6 AM 06/10/21 06:00 Intake Total 3125 ml Output Total 2925 ml Balance 200 ml Attending Note Attending Note I agree with note by LEVI Zuluaga. Pt seen later in day. Abdomen soft and nontender. Increased ostomy output. KUB with some irregular air filled loops of SB. Similar to appearance from CT, perhaps less air. As pt had pulled out NG 3 times per nursing I elected to leave it out. Imp: resolving obstruction. Plan: Get water soluble contrast SBFT in am. Crystal Zuluaga Jun 10, 2021 15:08 Greg Johnson Jun 11, 2021 19:55
[2021-06-10] MEDS ORDERED: METOPROLOL TART 25 MG TABLET PO ONE (18:30)
[2021-06-10 18:48] LABS: BLOOD UREA NITROGEN 6 MG/DL (7-18); CALCIUM LEVEL 8.4 MG/DL (8.8-10.2); CARBON DIOXIDE LEVEL 23 MEQ/L (21-32); CHLORIDE LEVEL 98 MEQ/L (98-107); GLOMERULAR FILTRATION RATE > 60.0 (>45); GLUCOSE, FASTING 69 MG/DL (70-100); POTASSIUM SERUM 3.9 MEQ/L (3.5-5.1); SODIUM LEVEL 133 MEQ/L (136-145)
[2021-06-10] MEDS: METOPROLOL 5 MG/5 ML VIAL IV SCH ×3 (18:57→22:42)
[2021-06-10] MEDS ORDERED: NS 500 ML IV ONE (19:00)
[2021-06-10] MEDS: ASPIRIN 81 MG CHEW TABLET PO SCH (20:30)
[2021-06-10] MEDS: KCL 20MEQ in NS 1000ML 1,000 ML IV SCH (20:30)
[2021-06-11] VITALS: BP 156/69
[2021-06-11 03:38] VITALS: BP 146/67
[2021-06-11] MEDS: KCL 20MEQ in NS 1000ML 1,000 ML IV SCH ×2 (04:36→13:27)
[2021-06-11 05:19] LABS: BASO # 0.1 10^3/uL (0.0-0.2); BASO % 0.6 % (0.0-1.0); EOS # 0.1 10^3/uL (0.0-0.5); EOS % 1.4 % (0.0-3.0); HEMATOCRIT 40.6 % (36.0-47.0); LYMPH # 1.5 10^3/uL (1.5-5.0); LYMPH % 15.3 % (24.0-44.0); MEAN CORPUSCULAR HEMOGLOBIN 29.7 pg (27.0-33.0); MEAN CORPUSCULAR VOLUME 92.7 fl (80.0-96.0); MONO # 0.9 10^3/uL (0.0-0.8); MONO % 8.6 % (2.0-8.0); NEUTROPHILS # 7.2 10^3/uL (1.5-8.5); PLATELET COUNT, AUTOMATED 316 10^3/uL (150-450); RED BLOOD COUNT 4.38 10^6/uL (4.00-5.40); WHITE BLOOD COUNT 9.9 10^3/uL (4.0-10.0)
[2021-06-11 05:43] LABS: BLOOD UREA NITROGEN 6 MG/DL (7-18); CALCIUM LEVEL 7.4 MG/DL (8.8-10.2); CARBON DIOXIDE LEVEL 23 MEQ/L (21-32); CHLORIDE LEVEL 102 MEQ/L (98-107); CREATININE FOR GFR 0.54 MG/DL (0.55-1.30); GLOMERULAR FILTRATION RATE > 60.0 (>45); GLUCOSE, FASTING 62 MG/DL (70-100); POTASSIUM SERUM 3.8 MEQ/L (3.5-5.1); SODIUM LEVEL 137 MEQ/L (136-145)
[2021-06-11 08:00] VITALS: BP 149/71
[2021-06-11] MEDS ORDERED: E-Z-PAQUE 96% w/w SUSP 176GM BTL As Ordered ONE (08:41)
[2021-06-11] MEDS ORDERED: GASTROGRAFIN SOLUTION 30ML (Q9963) As Ordered ONE (08:54)
--- NOTE | 2021-06-11 09:31 | IPNPDOC ---
Text Note Date of Service The patient was seen on 06/11/21. NOTE General surgery. Dr. Johnson The patient is a 66-year-old female status post robotic assisted laparoscopic repair of parastomal and ventral hernia 05/26/2021, admitted 06/07/2021 with small bowel obstruction. The pt had episode of PAF last evening. Metoprolol IV as per hospitalist. Afebrile. Heart rate 81, respiratory rate 16, blood pressure 146/67, 94% room air Awake and alert, resting in bed Lungs are clear to auscultation S1-S2 with regular rate rhythm. Abdomen. Soft, mild tenderness with palpation noted, nondistended, ostomy with brown stool noted in the bag Ostomy output not recorded yesterday. WBC 9.9, hemoglobin 13.0. Potassium 3.8 Assessment/plan Status post robotic assisted laparoscopic repair of parastomal and ventral hernia 05/26/2021, admitted 06/07/2021 with small bowel obstruction. The patient is reviewed as per Dr. Johnson. NG tube left out 06/10/2021 NPO with ice chips. IVF Plan for upper GI with small bowel follow-through this morning, further recommendations as per Dr. Johnson after review of imaging. Continue to monitor. VS,Fishbone, I+O VS, Fishbone, I+O Laboratory Tests 06/10/21 17:43 06/11/21 04:58 Vital Signs Date Time Temp Pulse Resp B/P (MAP) Pulse Ox O2 Delivery O2 Flow Rate FiO2 06/11/21 03:38 97.7 81 16 146/67 (93) 94 Room Air 06/10/21 04:00 2.0 l I&O- Last 24 Hours up to 6 AM 06/11/21 06:00 Intake Total 1230 ml Output Total 750 ml Balance 480 ml Attending Note Attending Note I agree with LEVI Zuluaga note. I saw patient in afternoon. SBFT with flow to ostomy within 15 mins or so. Some narrowing in TI in area of bowel covered by mesh. Brisk ostomy output since SBFT. Imp: Resolving obstruction. May have some limitation at TI level. Plan: Clears and follow. PT Crystal Zuluaga Jun 11, 2021 09:31 Greg Johnson Jun 11, 2021 19:58
[2021-06-11] MEDS: SENOKOT S TAB PO SCH ×2 (11:12→20:19)
[2021-06-11] MEDS: amLODIPine 5 MG TAB PO SCH (11:18)
[2021-06-11] MEDS: CARVedilol 3.125 MG TAB PO SCH ×2 (11:19→20:21)
[2021-06-11] MEDS: PANTOPRAZOLE 40MG VIAL (C9113 PER 1) IV SCH (11:20)
[2021-06-11] MEDS: FLUTICASONE HFA 110 MCG 12 GM INHALER (FLOVENT) INH SCH ×2 (11:32→20:40)
[2021-06-11 12:00] VITALS: BP 147/70
--- NOTE | 2021-06-11 14:04 | IPNPDOC ---
Text Note Date of Service The patient was seen on 06/11/21. NOTE Subjective: Patient is a 66-year-old female is admitted by general surgery for small bowel obstruction. Hospitalist were consulted due to patient being hyponatremic. Patient had a run of atrial fibrillation with RVR last evening up to the 170s. This was broken with IV Lopressor. Patient's heart rate remained within normal range overnight. Patient has been doing otherwise well. Patient is still having some abdominal tenderness. Patient has been advanced to clear liquids as the NG tube remained out. Review of systems: General: Patient denies fevers HEENT: Patient denies headaches Cardiovascular: Patient denies chest pain Respiratory: Patient denies shortness of breath, cough GI: Patient denies abdominal pain, nausea, vomiting : Patient denies increased frequency or pain with urination Physical exam: Vitals: See below General: Alert and oriented female patient who was sitting up in bed when I walked in. Patient did not appear to be in any acute distress. HEENT: Normocephalic, atraumatic, moist mucous membranes. Neck: No lymphadenopathy or thyromegaly Cardiac: Regular rate and rhythm, no murmurs, normal S1, normal S2 Pulm: Clear to auscultation bilaterally. No wheezes, rhonchi, rales Abd: Nondistended, tenderness to palpation of the abdomen, patient has ostomy on the right side of the abdomen, no rebound tenderness abdomen soft Ext: No edema bilateral lower extremities Labs: See below Imaging: Small bowel follow-through x-ray was performed and read is pending at the time of this note been written. Assessment/plan: 58-year-old female who recently had laparoscopic hernia repair presented to the hospital on with small bowel obstruction was also found to have hyponatremia 1. Small bowel obstruction. This appears to be improving. Dr. Johnson of general surgery has removed her NG tube and will continue to advance the aubrey ent's diet. 2. Hyponatremia. This appears chronic in nature and has resolved at this time. Patient is currently on IV fluids but these will be discontinued once patient is able to tolerate a p.o. diet. 3. Hypokalemia. Patient's potassium level was elevated yesterday but is now back within the normal range. We will continue to monitor. 4. Acute metabolic encephalopathy. Patient is improving and was alert and oriented yesterday and this morning when I saw her. 5. Hypertension with hypertensive heart disease. Continue Coreg and amlodipine. 6. COPD. Continue albuterol and fluticasone inhalers. 7. Anxiety depression. Can restart Wellbutrin. 8. Hyperlipidemia. Statin can be restarted. 9. Paroxysmal atrial fibrillation with RVR yesterday. This was broken with a dose of oral metoprolol and 2 doses of 5 mg IV metoprolol. Patient's heart rate is now in sinus and is normal. 10. Chest x-ray with left lower lobe airspace disease. Possible early pneumonia. 7 days levofloxacin. DVT Prophylaxis: Teds and sequentials Disposition: Pending improvement in small bowel obstruction. VS,Flynne, I+O VS, Flynne, I+O Laboratory Tests 06/10/21 17:43 06/11/21 04:58 Vital Signs Date Time Temp Pulse Resp B/P (MAP) Pulse Ox O2 Delivery O2 Flow Rate FiO2 06/11/21 11:19 83 142/65 06/11/21 08:00 97.8 20 97 Room Air 06/10/21 04:00 2.0 I&O- Last 24 Hours up to 6 AM 06/11/21 06:00 Intake Total 1230 ml Output Total 750 ml Balance 480 ml LISETTE PASCAL DO Jun 11, 2021 14:04
[2021-06-11 16:00] VITALS: BP 158/72
--- NOTE | 2021-06-11 17:29 | REP ---
INDICATION: water soluble contrast study for partial vs complete SBO. COMPARISON: None. TECHNIQUE: The procedure was performed under the direct supervision of Dr. Lowe. The images were reviewed with Dr. Lowe. A 50 50 solution of Gastrografin and water was administered and the contrast was followed through the small bowel to the level of the terminal ileum. 1.2 minutes of fluoro time was utilized for this procedure. FINDINGS: The drier feeder film shows no organomegaly or pathological masses. The intestinal gas pattern is nonspecific. There are multiple bowel sutures and surgical clips noted throughout the abdomen. There is an ostomy overlying the right abdomen. Small bowel transit time is approximately 15 minutes. During fluoroscopy gentle palpation shows all loops are freely movable and pliable. There are no fixed or angulated loops. The small bowel mucosal pattern is normal in course and caliber. There is a 5 cm segment of narrowing in the distal ileum, however, this has overall improved from a previous exam performed on 05/06/2020. There is no evidence of obstruction or extravasation. IMPRESSION: There is a 5 cm segment of narrowing in the distal ileum, however, this has overall improved from a previous exam performed on 05/06/2020. There is no evidence of obstruction or extravasation. <Electronically signed by Rakesh Zapata > 06/11/21 1527 <Electronically signed by Aston Lowe > 06/11/21 0232
--- NOTE | 2021-06-11 19:17 | ECGEPIP ---
[facility] Test Date: 2021-06-10 Pat Name: DUY RODRIGUEZ Department: Room: [place] [address] Gender: Female Grill Cook: SOPHIA : 1955 Requested By: LISETTE PASCAL Order Number: [id number] Reading MD: Chau Manznao Measurements Intervals [place] Rate: 109 P: 41 FL: 142 QRS: -5 QRSD: 66 T: 37 QT: 304 QTc: 409 Interpretive Statements Sinus tachycardia with premature atrial complexes Possible Left atrial enlargement Minimal voltage criteria for LVH, may be normal variant ( R in aVL ) Septal infarct , age undetermined Delayed anterior R wave progression Rate increased from tracing done 06-07-21 Electronically Signed on 06-11-2021 19:17:37 EDT by Chau Manzano
[2021-06-11 20:00] VITALS: BP 137/65
[2021-06-11] MEDS: ASPIRIN 81 MG CHEW TABLET PO SCH (20:21)
[2021-06-11] MEDS: LevoFLOXacin IV 750 MG in IV 1 EA IV SCH (20:23)
[2021-06-12] VITALS (7 sets, daily range): BP systolic 137–168; BP diastolic 63–86
[2021-06-12 04:32] LABS: BASO # 0.1 10^3/uL (0.0-0.2); BASO % 0.6 % (0.0-1.0); EOS # 0.2 10^3/uL (0.0-0.5); EOS % 1.7 % (0.0-3.0); HEMATOCRIT 39.4 % (36.0-47.0); HEMOGLOBIN 13.2 g/dl (12.0-15.5); LYMPH % 19.3 % (24.0-44.0); MEAN CORPUSCULAR HEMOGLOBIN 29.7 pg (27.0-33.0); MEAN CORPUSCULAR HGB CONC 33.5 g/dl (32.0-36.5); MEAN CORPUSCULAR VOLUME 88.7 fl (80.0-96.0); MONO # 1.2 10^3/uL (0.0-0.8); MONO % 11.7 % (2.0-8.0); NEUTROPHILS # 6.9 10^3/uL (1.5-8.5); NEUTROPHILS % 65.6 % (36.0-66.0); PLATELET COUNT, AUTOMATED 295 10^3/uL (150-450); RED BLOOD COUNT 4.44 10^6/uL (4.00-5.40); WHITE BLOOD COUNT 10.5 10^3/uL (4.0-10.0)
[2021-06-12 04:52] LABS: BLOOD UREA NITROGEN 7 MG/DL (7-18); CALCIUM LEVEL 8.1 MG/DL (8.8-10.2); CARBON DIOXIDE LEVEL 25 MEQ/L (21-32); CHLORIDE LEVEL 104 MEQ/L (98-107); CREATININE FOR GFR 0.74 MG/DL (0.55-1.30); GLOMERULAR FILTRATION RATE > 60.0 (>45); GLUCOSE, FASTING 94 MG/DL (70-100); POTASSIUM SERUM 3.3 MEQ/L (3.5-5.1); SODIUM LEVEL 136 MEQ/L (136-145)
[2021-06-12] MEDS ORDERED: POTASSIUM CHLORIDE 10MEQ SR TABLET PO ONE (06:50)
[2021-06-12 07:03] LABS: MAGNESIUM LEVEL 1.7 MG/DL (1.8-2.4)
[2021-06-12] MEDS ORDERED: MAG SULF 1GM/100ML (MAG RUN) 1 GM in IV 1 EA IV ONE (07:05)
[2021-06-12] MEDS: FLUTICASONE HFA 110 MCG 12 GM INHALER (FLOVENT) INH SCH ×2 (07:32→19:28)
[2021-06-12] MEDS: SENOKOT S TAB PO SCH ×2 (09:00→21:22)
--- NOTE | 2021-06-12 09:42 | IPNPDOC ---
Text Note Date of Service The patient was seen on 06/12/21. NOTE General surgery. Dr. Johnson The patient is a 66-year-old female status post robotic assisted laparoscopic repair of parastomal and ventral hernia 05/26/2021, admitted 06/07/2021 with small bowel obstruction. SBFT yesterday indicated improvement from previous exam, 5 cm segment of narrowing in the distal ileum, no obstruction. The pt was started on clear liquids and has been tolerating. Afebrile. Heart rate 81, respiratory rate 16, blood pressure 146/67, 94% room air Awake and alert, resting in bed Lungs are clear to auscultation S1-S2 with regular rate rhythm. Abdomen. Soft, mild tenderness with palpation noted, nondistended, ostomy with brown stool noted in the bag Ostomy output 1075 mL yesterday WBC 10.5, hemoglobin 13.2 Potassium 3.3 SBFT IMPRESSION: There is a 5 cm segment of narrowing in the distal ileum, however, this has overall improved from a previous exam performed on 05/06/2020. There is no evidence of obstruction or extravasation. <Electronically signed by Rakesh Zapata > 06/11/21 1527 <Electronically signed by Aston Lowe > 06/11/21 1725 Assessment/plan Status post robotic assisted laparoscopic repair of parastomal and ventral hernia 05/26/2021, admitted 06/07/2021 with small bowel obstruction. The patient is reviewed as per Dr. Johnson. NG tube left out 06/10/2021 SBFT yesterday indicated improvement from previous exam, 5 cm segment of narrowing in the distal ileum, no obstruction. The pt was started on clear liquids and has been tolerating. Continue clears for now. IVF d/cd Continue to monitor. Hypokalemia. Supplement ordered as per hospitalist. Hypomagnesemia. Supplement ordered as per hospitalist. VS,Fishbone, I+O VS, Fishbone, I+O Laboratory Tests 06/12/21 04:01 Vital Signs Date Time Temp Pulse Resp B/P (MAP) Pulse Ox O2 Delivery O2 Flow Rate FiO2 06/12/21 07:23 98.5 106 18 168/86 (113) 95 Room Air 06/10/21 04:00 2.0 I&O- Last 24 Hours up to 6 AM 06/12/21 06:00 Intake Total 940 ml Output Total 2975 ml Balance -2035 ml Attending Note Attending Note I agree with note by LEVI Zuluaga. Patient tolerating liquids with good ostomy output. Patient remains quite weak. Will need to continue PT. Plan: continue liquid diet/ PT Crystal Zuluaga Jun 12, 2021 09:21 Greg Johnson Jun 17, 2021 08:45
[2021-06-12] MEDS: PANTOPRAZOLE 40MG VIAL (C9113 PER 1) IV SCH (09:55)
[2021-06-12] MEDS: amLODIPine 5 MG TAB PO SCH (09:56)
[2021-06-12] MEDS: CARVedilol 3.125 MG TAB PO SCH ×2 (09:56→21:23)
[2021-06-12] MEDS: ONDANSETRON 4MG/2ML VIAL IV PRN (11:55)
--- NOTE | 2021-06-12 15:40 | IPNPDOC ---
Text Note Date of Service The patient was seen on 06/12/21. NOTE Subjective: Patient is a 66-year-old female who was admitted by general surgery for small bowel obstruction. Hospitalist were consulted the patient being hyponatremic. Patient had a run of atrial fibrillation with RVR 2 nights ago this was broken with IV Lopressor. Patient has been doing well with this. Patient's heart rate has been under control. Patient is otherwise doing well. Patient still remains confused on the date but is otherwise not complaining of any pain. Review of systems: General: Patient denies fevers HEENT: Patient denies headaches Cardiovascular: Patient denies chest pain Respiratory: Patient denies shortness of breath, cough GI: Patient denies abdominal pain, nausea, vomiting, diarrhea : Patient denies increased frequency or pain with urination Extremities: Patient denies swelling or pain in extremities Neurological: Patient denies numbness or tingling in legs Physical exam: Vitals: See below General: Alert and oriented x2 female, not oriented to time, who was sitting in bed when I walked in. Patient. Acute distress. HEENT: Normocephalic, atraumatic, moist mucous membranes. Neck: No lymphadenopathy or thyromegaly Cardiac: Regular rate and rhythm, no murmurs, normal S1, normal S2 Pulm: Clear to auscultation bilaterally. No wheezes, rhonchi, rales Abd: Nondistended, mild tenderness to palpation of the abdomen, no rebound t enderness, abdomen soft, ostomy on the right side of the abdomen draining brown stool Ext: No edema bilateral lower extremities Labs: See below Imaging: Small bowel follow-through performed on 06/11/2021 is reported to show there is a 5 cm segment of narrowing of the distal ileum, however this is o verall improved from previous exam found on 05/06/2020. There is no evidence of obstruction or extravasation. Assessment/plan: 66-year-old female who was recently had laparoscopic hernia repair presented to hospital on 06/07/2021 with small bowel obstruction was found to have hyponatremia. 1. Small bowel obstruction. This appears to be improving. Dr. Johnson of general surgery has remove the NG tube and advancing the diet to full liquids today. 2. Hyponatremia. This appears chronic in nature and is resolved at this time. We will continue to monitor. 3. Hypokalemia. We have have repleted potassium today. Continue to monitor. 4. Acute metabolic cephalopathy. Patient is alert and oriented to person and place but is not oriented to time. Patient keeps saying that is 1954 which is her year. Patient has had confusion in the past while hospitalized according to her . So this may be hospital delirium. 5. Hypertension with hypertensive heart disease. Continue Coreg and amlodipine. 6. COPD. Continue inhalers. 7. Anxiety and depression. Restart Wellbutrin. 8. Hyperlipidemia. Restart statin. 9. Paroxysmal atrial fibrillation with RVR 2 days ago. Continue with home medications. Eliquis can be restarted now that surgical intervention is not eminent. 10. Chest x-ray with left lower lung airspace disease. Possible early pneumonia. Continue 7 days levofloxacin. DVT Prophylaxis: Teds and sequentials Disposition: Pending improvement in small bowel obstruction. VS,Fishbone, I+O VS, Fishbone, I+O Laboratory Tests 06/12/21 04:01 Vital Signs Date Time Temp Pulse Resp B/P (MAP) Pulse Ox O2 Delivery O2 Flow Rate FiO2 06/12/21 12:00 97.5 87 18 147/67 (93) 94 Room Air 06/10/21 04:00 2.0 I&O- Last 24 Hours up to 6 AM 06/12/21 06:00 Intake Total 940 ml Output Total 2975 ml Balance -2035 ml LISETTE PASCAL DO Jun 12, 2021 15:40
[2021-06-12] MEDS: GABAPENTIN 300 MG CAP PO SCH ×2 (17:43→21:22)
[2021-06-12] MEDS: MONTELUKAST 10 MG TAB PO SCH (21:22)
[2021-06-12] MEDS: ASPIRIN 81 MG CHEW TABLET PO SCH (21:23)
[2021-06-12] MEDS: ROSUVASTATIN 10 MG TAB (CRESTOR) PO SCH (21:23)
[2021-06-12] MEDS ORDERED: oxyCODONE 5MG TAB PO PRN (23:20)
[2021-06-13] VITALS (7 sets, daily range): BP systolic 126–149; BP diastolic 59–72
[2021-06-13 05:34] LABS: BASO # 0.1 10^3/uL (0.0-0.2); BASO % 0.5 % (0.0-1.0); EOS # 0.2 10^3/uL (0.0-0.5); EOS % 2.5 % (0.0-3.0); HEMATOCRIT 37.6 % (36.0-47.0); HEMOGLOBIN 12.4 g/dl (12.0-15.5); MEAN CORPUSCULAR HEMOGLOBIN 30.1 pg (27.0-33.0); MEAN CORPUSCULAR VOLUME 91.3 fl (80.0-96.0); MONO # 1.2 10^3/uL (0.0-0.8); MONO % 12.7 % (2.0-8.0); NEUTROPHILS # 5.6 10^3/uL (1.5-8.5); PLATELET COUNT, AUTOMATED 256 10^3/uL (150-450); RED BLOOD COUNT 4.12 10^6/uL (4.00-5.40); WHITE BLOOD COUNT 9.2 10^3/uL (4.0-10.0)
[2021-06-13 05:54] LABS: BLOOD UREA NITROGEN 6 MG/DL (7-18); CALCIUM LEVEL 8.1 MG/DL (8.8-10.2); CARBON DIOXIDE LEVEL 25 MEQ/L (21-32); CHLORIDE LEVEL 106 MEQ/L (98-107); GLOMERULAR FILTRATION RATE > 60.0 (>45); GLUCOSE, FASTING 90 MG/DL (70-100); POTASSIUM SERUM 3.7 MEQ/L (3.5-5.1); SODIUM LEVEL 137 MEQ/L (136-145)
[2021-06-13] MEDS: FLUTICASONE HFA 110 MCG 12 GM INHALER (FLOVENT) INH SCH ×2 (07:42→19:25)
[2021-06-13] MEDS: amLODIPine 5 MG TAB PO SCH (09:22)
[2021-06-13] MEDS: SENOKOT S TAB PO SCH ×2 (09:22→21:01)
[2021-06-13] MEDS: PANTOPRAZOLE 40MG VIAL (C9113 PER 1) IV SCH (09:22)
[2021-06-13] MEDS: CARVedilol 3.125 MG TAB PO SCH ×2 (09:23→21:01)
[2021-06-13] MEDS: FOLIC ACID 1 MG TAB PO SCH (09:23)
[2021-06-13] MEDS: LORATADINE 10 MG TAB PO SCH (09:23)
[2021-06-13] MEDS: buPROPion **XL** TABLET 150MG (WELLBUTRIN XL) PO SCH (09:23)
[2021-06-13] MEDS: GABAPENTIN 300 MG CAP PO SCH ×3 (09:23→21:01)
[2021-06-13] MEDS: DULoxetine 30MG CAPSULE (CYMBALTA) PO SCH (09:23)
--- NOTE | 2021-06-13 14:24 | IPNPDOC ---
Text Note Date of Service The patient was seen on 06/13/21. NOTE Subjective: Patient is a 66-year-old female who was admitted by general surgery for small bowel obstruction. Hospitalist were consulted due to patient being hyponatremic. Patient had a run of atrial fibrillation with RVR 3 nights ago which was broken with IV Lopressor. Patient has been doing well since this time. Patient is doing otherwise well. Patient is currently on a full liquid diet. Patient denies any complaints at this time. Review of systems: General: Patient denies fevers HEENT: Patient denies headaches Cardiovascular: Patient denies chest pain Respiratory: Patient denies shortness of breath, cough GI: Patient denies abdominal pain, nausea, vomiting, diarrhea : Patient denies increased frequency or pain with urination Extremities: Patient denies swelling or pain in extremities Neurological: Patient denies numbness or tingling in legs Physical exam: Vitals: See below General: Alert and oriented x3 female, not oriented to time, who was laying in bed when I walked in. Patient did not appear to be in any acute distress. HEENT: Normocephalic, atraumatic, moist mucous membranes. Neck: No lymphadenopathy or thyromegaly Cardiac: Regular rate and rhythm, no murmurs, normal S1, normal S2 Pulm: Clear to auscultation bilaterally. No wheezes, rhonchi, rales Abd: Nondistended, mild tenderness to palpation of the abdomen, no rebound tenderness, abdomen soft, ostomy in the right side of the abdomen draining brown stool Ext: No edema bilateral lower extremities Labs: See below Imaging: No new imaging is been performed Assessment/plan: 66-year-old female who recently had laparoscopic hernia repair presented to the hospital on 06/07/2021 with small bowel obstruction was found to have hyponatremia. 1. Small bowel obstruction. This appears to be improving. Dr. Johnson of general surgery will continue full liquid diet for this time as there appears to be a narrowing of the terminal ileum which may be secondary to the patient's obstruction. Patient obstruction may also be secondary to possible ileus from narcotic use after the surgery. Patient will continue on full liquid diet at this time. 2. Hyponatremia. This appears chronic in nature and has resolved at this time. 3. Hypokalemia. Within normal range, daily supplementation has been added. Continue to monitor. 4. Acute metabolic encephalopathy patient is alert and oriented to person place but not oriented to time. She keeps saying the year is 1954 which is her year. When speaking with the yesterday patient appears to be have been confused during her last hospitalization. Her metabolic encephalopathy may be secondary to hospital delirium. 5. Hypertension. Continue Coreg and amlodipine. 6. COPD. Continue inhalers. 7. Anxiety depression. Restart Wellbutrin. 8. Hyperlipidemia. Restart statin. 9. Paroxysmal atrial fibrillation. Continue home medications. Eliquis can be restarted not a surgical intervention is not imminent. 10. Chest x-ray with left lower lung airspace disease. Possible early pneumonia. Levaquin completed. DVT Prophylaxis: Teds and sequentials, starting Eliquis. Disposition: Pending improvement in small bowel obstruction VS,Franklin, I+O VS, Franklin, I+O Laboratory Tests 06/13/21 05:06 Vital Signs Date Time Temp Pulse Resp B/P (MAP) Pulse Ox O2 Delivery O2 Flow Rate FiO2 06/13/21 12:00 98.2 71 18 130/59 (82) 94 Room Air 06/10/21 04:00 2.0 I&O- Last 24 Hours up to 6 AM 06/13/21 06:00 Intake Total 1030 ml Output Total 1550 ml Balance -520 ml LISETTE PASCAL DO Jun 13, 2021 14:24
[2021-06-13] MEDS: TOLTERODINE TARTRATE 2 MG LA CAP (DETROL LA) PO SCH (17:33)
[2021-06-13] MEDS: ONDANSETRON 4MG/2ML VIAL IV PRN (18:55)
[2021-06-13] MEDS: ROSUVASTATIN 10 MG TAB (CRESTOR) PO SCH (21:01)
[2021-06-13] MEDS: APIXABAN 5 MG TAB (ELIQUIS) PO SCH (21:01)
[2021-06-13] MEDS: ASPIRIN 81 MG CHEW TABLET PO SCH (21:01)
[2021-06-13] MEDS: LevoFLOXacin IV 750 MG in IV 1 EA IV SCH (21:01)
[2021-06-13] MEDS: MONTELUKAST 10 MG TAB PO SCH (21:01)
--- NOTE | 2021-06-13 23:11 | IPN ---
PROGRESS NOTE DATE: 06/13/2021 HISTORY: The patient was admitted on the 07 of June with evidence for a bowel obstruction. She was also found to be disoriented at the time of admission which may have been related to her significant use of narcotics at home. Her head has cleared and she is using no narcotic medications currently. She had a small-bowel follow through study during this hospital stay that shows good flow through her ileostomy with some narrowing just proximal to this in the area of her recently placed prosthetic mesh. She is now tolerating full liquids with good ostomy output. Vital signs show that she has been afebrile over the past 24 hours. Pulse is quite regular in the 70's and 80's. Blood pressure is excellent and her room air oxygenation is in the mid 90's. INTAKE AND OUTPUT: Yesterday she had 1,030 in with 1,750 recorded out. OBJECTIVE: PHYSICAL EXAMINATION: GENERAL APPEARANCE: When I came to see her today the patient was sitting up in a chair with her in attendance. She is alert and seems generally oriented. She certainly is behaving as she has when I have seen her before. SKIN: Warm and dry. HEENT: Sclerae are anicteric. HEART: Unremarkable. LUNGS: Unremarkable. ABDOMEN: Soft and without significant tenderness. LABORATORY STUDIES: Today white count of 9, hemoglobin 12, hematocrit 38 and a platelet count of 256,000. Differential count showed 61% neutrophils, 22% lymphocytes and 13% monocytes. Her chemistry profile today shows a sodium of 137, potassium 3.7, chloride 106, CO2 of 25, BUN of 6, creatinine 0.8 and a glucose of 90. IMPRESSION: The patient seems to be doing quite well at the moment. Her bowel obstruction has resolved. She is tolerating a full liquid diet. I had asked for a dietary consult for recommendations regarding nutritional supplements, but this is pending. She seems quite comfortable at rest without any of the narcotics that she had been using regularly previously. PLAN: The patient and her were encouraged that she should be up to ambulate and participate with physical therapy as much as possible. I will order her some Ensure three times daily to try to improve her nutritional support. I advised them that when she is strong enough to care for herself at home and be steady on her feet with ambulation, that I believe she would at that point be ready for discharge. I did speak with Dr. Pathak earlier today about this patient as well. He did express some concerns that she may be still a little disoriented, but I thin she is about at her baseline on my evaluation currently. We will see how things go over the next day or two.
[2021-06-14] VITALS (8 sets, daily range): BP systolic 115–146; BP diastolic 56–81
[2021-06-14 05:00] LABS: BASO # 0.1 10^3/uL (0.0-0.2); BASO % 0.6 % (0.0-1.0); EOS # 0.4 10^3/uL (0.0-0.5); EOS % 4.1 % (0.0-3.0); HEMATOCRIT 35.8 % (36.0-47.0); HEMOGLOBIN 11.5 g/dl (12.0-15.5); LYMPH # 1.9 10^3/uL (1.5-5.0); LYMPH % 18.3 % (24.0-44.0); MEAN CORPUSCULAR HEMOGLOBIN 29.3 pg (27.0-33.0); MEAN CORPUSCULAR HGB CONC 32.1 g/dl (32.0-36.5); MEAN CORPUSCULAR VOLUME 91.1 fl (80.0-96.0); MONO # 0.9 10^3/uL (0.0-0.8); MONO % 8.5 % (2.0-8.0); NEUTROPHILS # 7.1 10^3/uL (1.5-8.5); NEUTROPHILS % 67.6 % (36.0-66.0); PLATELET COUNT, AUTOMATED 225 10^3/uL (150-450); RED BLOOD COUNT 3.93 10^6/uL (4.00-5.40); WHITE BLOOD COUNT 10.5 10^3/uL (4.0-10.0)
[2021-06-14 05:22] LABS: BLOOD UREA NITROGEN 8 MG/DL (7-18); CALCIUM LEVEL 8.2 MG/DL (8.8-10.2); CARBON DIOXIDE LEVEL 24 MEQ/L (21-32); CHLORIDE LEVEL 105 MEQ/L (98-107); CREATININE FOR GFR 0.83 MG/DL (0.55-1.30); GLOMERULAR FILTRATION RATE > 60.0 (>45); GLUCOSE, FASTING 87 MG/DL (70-100); POTASSIUM SERUM 3.7 MEQ/L (3.5-5.1); SODIUM LEVEL 136 MEQ/L (136-145)
[2021-06-14] MEDS: FLUTICASONE HFA 110 MCG 12 GM INHALER (FLOVENT) INH SCH ×2 (07:11→19:05)
[2021-06-14] MEDS: SENOKOT S TAB PO SCH ×2 (08:55→21:22)
[2021-06-14] MEDS: TOLTERODINE TARTRATE 2 MG LA CAP (DETROL LA) PO SCH (08:55)
[2021-06-14] MEDS: PANTOPRAZOLE 40MG VIAL (C9113 PER 1) IV SCH (08:55)
[2021-06-14] MEDS: DULoxetine 30MG CAPSULE (CYMBALTA) PO SCH (08:55)
[2021-06-14] MEDS: POTASSIUM CHLORIDE 10MEQ SR TABLET PO SCH (08:55)
[2021-06-14] MEDS: GABAPENTIN 300 MG CAP PO SCH ×3 (08:56→21:23)
[2021-06-14] MEDS: APIXABAN 5 MG TAB (ELIQUIS) PO SCH ×2 (08:56→21:23)
[2021-06-14] MEDS: CARVedilol 3.125 MG TAB PO SCH ×2 (08:56→21:23)
[2021-06-14] MEDS: FOLIC ACID 1 MG TAB PO SCH (08:56)
[2021-06-14] MEDS: amLODIPine 5 MG TAB PO SCH (08:57)
[2021-06-14] MEDS: LORATADINE 10 MG TAB PO SCH (08:57)
[2021-06-14] MEDS: buPROPion **XL** TABLET 150MG (WELLBUTRIN XL) PO SCH (08:58)
[2021-06-14] MEDS ORDERED: ONDANSETRON 4 MG TAB PO PRN (11:20)
--- NOTE | 2021-06-14 12:17 | IPNPDOC ---
Text Note Date of Service The patient was seen on 06/14/21. NOTE Subjective: Patient is a 66-year-old female who was admitted by general surgery for small bowel obstruction. Hospitalist were consulted due to the patient being hyponatremic. Patient had a run of atrial fibrillation with RVR 4 nights ago which needed IV Lopressor in order to bring the heart rate in the normal range. Patient is doing much better this morning. She patient is sitting up. Patient is alert and oriented to time today. Patient says that she is feeling much better and is much most conversive today. Patient is currently on a full liquid diet. Patient denies any complaints at this time. Review of systems: General: Patient denies fevers HEENT: Patient denies headaches Cardiovascular: Patient denies chest pain Respiratory: Patient denies shortness of breath, cough GI: Patient denies abdominal pain, nausea, vomiting, diarrhea : Patient denies increased frequency or pain with urination Extremities: Patient denies swelling or pain in extremities Neurological: Patient denies numbness or tingling in legs Physical exam: Vitals: See below General: Alert and oriented female patient who was sitting in bedside chair when I walked in. Patient knew her name, the name of the hospital, the year and who the shank cementer hand was. Patient did not appear to be in any acute distress. HEENT: Normocephalic, atraumatic, moist mucous membranes. Neck: No lymphadenopathy or thyromegaly Cardiac: Regular rate and rhythm, no murmurs, normal S1, normal S2 Pulm: Clear to auscultation bilaterally. No wheezes, rhonchi, rales Abd: Nondistended, mild tenderness to palpation, no rebound tenderness, abdomen soft, ostomy on the right side of the abdomen draining brown stool, normal bowel sounds Ext: No edema bilateral lower extremities Labs: See below Imaging: No new imaging is been performed Assessment/plan: 66-year-old female recently had laparoscopic hernia repair presented to the hospital on 06/07/2021 with small bowel obstruction who was found to have hyponatremia 1. Small bowel obstruction. This appears to be resolved at this time. Patient's diet is slowly improving. General surgery will continue full liquid diet at this time. Patient has a narrowing of the terminal ileum which may have contributed to the patient's obstruction. Patient's obstruction could also been possible ileus from narcotic use after surgery. Continue full liquid diet at this time. 2. Hyponatremia. This appears chronic in nature and has resolved at this time. We will continue to monitor. 3. Hypokalemia. The normal range today. Daily segmentation has been added. Continue monitoring. 4. Acute metabolic encephalopathy. This is improved at this time. Patient is much more alert and oriented today. Patient's gabapentin and Wellbutrin were restarted yesterday which may have contributed to some of her delirium. Patient also appears to have delirium when hospitalized. Patient is doing much better today. 5. Hypertension. Continue Coreg and amlodipine. 6. COPD. Continue inhalers. 7. Anxiety depression. Wellbutrin has been restarted. 8. Hyperlipidemia. Continue statin. 9. Paroxysmal atrial fibrillation. Continue home medications. Eliquis can be restarted if surgical intervention is not imminent at this time. 10. Chest x-ray with left lower lobe airspace disease. Possibly early pneumonia. Levaquin has been completed DVT Prophylaxis: Eliquis Disposition: Pending improvement in small bowel obstruction. Patient may benefit from acute rehab unit stay. VS,Fishbone, I+O VS, Fishbone, I+O Laboratory Tests 06/14/21 04:44 Vital Signs Date Time Temp Pulse Resp B/P (MAP) Pulse Ox O2 Delivery O2 Flow Rate FiO2 06/14/21 12:01 99.4 82 18 115/72 (86) 98 Room Air 06/10/21 04:00 2.0 I&O- Last 24 Hours up to 6 AM 06/14/21 05:59 Intake Total 860 ml Output Total 1325 ml Balance -465 ml LISETTE PASCAL DO Jun 14, 2021 12:17
[2021-06-14] MEDS: PANTOPRAZOLE 40MG TAB (PROTONIX) PO SCH (12:41)
[2021-06-14] MEDS: ACETAMINOPHEN TAB 650MG DOSE (2X325MG) PO PRN (16:06)
[2021-06-14] MEDS: ASPIRIN 81 MG CHEW TABLET PO SCH (21:23)
[2021-06-14] MEDS: ROSUVASTATIN 10 MG TAB (CRESTOR) PO SCH (21:23)
[2021-06-14] MEDS: MONTELUKAST 10 MG TAB PO SCH (21:23)
[2021-06-15] VITALS: BP 134/62
[2021-06-15 04:00] VITALS: BP 136/89
[2021-06-15 05:56] LABS: BASO # 0.1 10^3/uL (0.0-0.2); BASO % 0.6 % (0.0-1.0); EOS # 0.5 10^3/uL (0.0-0.5); EOS % 3.7 % (0.0-3.0); HEMATOCRIT 39.6 % (36.0-47.0); HEMOGLOBIN 12.8 g/dl (12.0-15.5); LYMPH % 16.2 % (24.0-44.0); MEAN CORPUSCULAR HEMOGLOBIN 29.8 pg (27.0-33.0); MEAN CORPUSCULAR HGB CONC 32.3 g/dl (32.0-36.5); MEAN CORPUSCULAR VOLUME 92.3 fl (80.0-96.0); MONO # 1.1 10^3/uL (0.0-0.8); MONO % 8.6 % (2.0-8.0); NEUTROPHILS # 8.9 10^3/uL (1.5-8.5); NEUTROPHILS % 70.2 % (36.0-66.0); PLATELET COUNT, AUTOMATED 270 10^3/uL (150-450); RED BLOOD COUNT 4.29 10^6/uL (4.00-5.40); WHITE BLOOD COUNT 12.6 10^3/uL (4.0-10.0)
--- NOTE | 2021-06-15 06:03 | IPN ---
PROGRESS NOTE DATE: 06/14/2021 SUBJECTIVE: Patient was admitted approximately a week ago with a bowel obstruction. This has resolved and she is now tolerating full liquids well. She has been noted to have some narrowing of the terminal ileum beneath the mesh of her parastomal hernia repair. She denies any abdominal pain. She has had no nausea or vomiting. The patient reports that she has been up ambulating to the bathroom several times today. Vital signs shows that she has been afebrile over the past 24 hours. Her pulse is in the 80s. Blood pressure is good and her room air oxygen saturation is normal. Intake and output showed that she had 560 ml recorded in yesterday with 1225 out. She had 1000 out in stool with 200 of urine output recorded. OBJECTIVE: The patient is lying propped up in bed looking quite comfortable. She is alert and oriented. Skin is warm and dry. Sclera are anicteric. Abdomen is flat and soft with bowel sounds present. The ostomy is pink and she has some stool in her ostomy appliance. LABORATORY DATA: Laboratory studies today shows a white count of 10, hemoglobin of 12, hematocrit of 36 and a platelet count of 225,000. Differential count showed 68% neutrophils, 18% lymphocytes and 8% monocytes. Chemistry profile showed normal electrolytes with a BUN of 8 and creatinine of 0.8 and a glucose of 87. IMPRESSION: Patient is doing very well tolerating a full liquid diet without any apparent symptoms. Her ostomy is functioning well. She appears to remain quite week. She indicates to me that she has been up ambulating to the bathroom four or five times today although her nurse indicates that she does not think it has been that many. The patient thinks she has been doing very well with ambulation and again the nurse reports that it took nearly two full assists to help her to the bathroom the last time they had assisted her. PLAN: Patient will remain on her full liquid diet for now. I placed a consultation for an acute rehabilitation unit screen to see if she might be a candidate for some acute rehab in preparation for discharge home. She otherwise appears to be doing quite well.
[2021-06-15 06:17] LABS: BLOOD UREA NITROGEN 10 MG/DL (7-18); CALCIUM LEVEL 8.4 MG/DL (8.8-10.2); CARBON DIOXIDE LEVEL 26 MEQ/L (21-32); CHLORIDE LEVEL 104 MEQ/L (98-107); CREATININE FOR GFR 0.95 MG/DL (0.55-1.30); GLOMERULAR FILTRATION RATE > 60.0 (>45); GLUCOSE, FASTING 80 MG/DL (70-100); POTASSIUM SERUM 4.4 MEQ/L (3.5-5.1); SODIUM LEVEL 137 MEQ/L (136-145)
[2021-06-15] MEDS: FLUTICASONE HFA 110 MCG 12 GM INHALER (FLOVENT) INH SCH (07:15)
[2021-06-15 08:00] VITALS: BP 148/78
--- NOTE | 2021-06-15 08:45 | IPNPDOC ---
Text Note Date of Service The patient was seen on 06/15/21. NOTE General surgery. Dr. Johnson The patient is a 66-year-old female status post robotic assisted laparoscopic repair of parastomal and ventral hernia 05/26/2021, admitted 06/07/2021 with small bowel obstruction. The patient is tolerating full liquid diet. Denies nausea or vomiting. Afebrile. VSS Awake and alert, out of bed to the chair participating with occupational therapy aides teacher apy. Abdomen. Soft, nondistended, ostomy with brown stool noted in the bag Ostomy output 650 mL yesterday WBC 12.6, hemoglobin 12.8. Assessment/plan Status post robotic assisted laparoscopic repair of parastomal and ventral hernia 05/26/2021, admitted 06/07/2021 with small bowel obstruction. The patient is reviewed as per Dr. Johnson. NG tube left out 06/10/2021 SBFT yesterday indicated improvement from previous exam, 5 cm segment of narrowing in the distal ileum, no obstruction. Tolerating full liquids. 650 mL output from ostomy yesterday. ARU screen pending. She is out of bed working with therapy this morning. Continue to monitor. VS,Fishbone, I+O VS, Fishbone, I+O Laboratory Tests 06/15/21 04:44 Vital Signs Date Time Temp Pulse Resp B/P (MAP) Pulse Ox O2 Delivery O2 Flow Rate FiO2 06/15/21 08:00 97.6 85 18 148/78 (101) 96 Room Air 06/10/21 04:00 2.0 I&O- Last 24 Hours up to 6 AM 06/15/21 06:00 Intake Total 1675 ml Output Total 1100 ml Balance 575 ml Crystal Zuluaga Jun 15, 2021 08:45
[2021-06-15] MEDS: GABAPENTIN 300 MG CAP PO SCH (09:39)
[2021-06-15] MEDS: DULoxetine 30MG CAPSULE (CYMBALTA) PO SCH (09:40)
[2021-06-15] MEDS: SENOKOT S TAB PO SCH (09:40)
[2021-06-15] MEDS: CARVedilol 3.125 MG TAB PO SCH (09:40)
[2021-06-15] MEDS: POTASSIUM CHLORIDE 10MEQ SR TABLET PO SCH (09:40)
[2021-06-15] MEDS: APIXABAN 5 MG TAB (ELIQUIS) PO SCH (09:41)
[2021-06-15] MEDS: FOLIC ACID 1 MG TAB PO SCH (09:41)
[2021-06-15] MEDS: PANTOPRAZOLE 40MG TAB (PROTONIX) PO SCH (09:41)
[2021-06-15] MEDS: TOLTERODINE TARTRATE 2 MG LA CAP (DETROL LA) PO SCH (09:41)
[2021-06-15] MEDS: amLODIPine 5 MG TAB PO SCH (09:42)
[2021-06-15] MEDS: buPROPion **XL** TABLET 150MG (WELLBUTRIN XL) PO SCH (09:43)
[2021-06-15] MEDS: LORATADINE 10 MG TAB PO SCH (09:43)
--- NOTE | 2021-06-15 10:59 | IPNPDOC ---
Text Note Date of Service The patient was seen on 06/15/21. NOTE SUBJECTIVE: Patient seen and examined this morning at bedside. She states she is feeling well and has no concerns today. She denies any nausea or vomiting. She reports good ostomy output and drains her back to 3 times a day. She continues on a full liquid diet and states she tolerates this without any issues. OBJECTIVE: VITAL SIGNS: See below GENERAL: Alert, comfortable, in no acute distress HEENT: Normocephalic, atraumatic, moist mucous membranes NECK: Supple, trachea midline, no lymphadenopathy CARDIOVASCULAR: Regular rate and rhythm, normal S1 and S2. 3/6 systolic ejection murmur heard best at the right upper sternal border RESPIRATORY: Clear to auscultation bilaterally with equal air entry bilaterally. No wheezing, rhonchi, or rales. ABDOMEN: Soft, nontender, nondistended, bowel sounds present. There is a colostomy bag present on the right side of the abdomen. Stool in the bag appears normal without blood. EXTREMITIES: No cyanosis or edema. 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 #Small bowel obstruction, likely resolved Management per surgical service Status post NG tube decompression Patient currently is on full liquid diet and tolerating this #Hyponatremia, resolved Continue to monitor electrolytes daily while inpatient #Hypokalemia, resolved Continue daily supplementation #Acute metabolic encephalopathy, resolved Suspect delirium secondary to acute illness and hospitalization, now resolved #Hypertension. Continue home medications #COPD. Continue home inhalers #Anxiety/depression. -Continue home Wellbutrin #Hyperlipidemia. Continue home statin #Paroxysmal atrial fibrillation. Continue home medications. On Eliquis for anticoagulation. #Chest x-ray with left lower lobe airspace disease Question of an early developing pneumonia. Patient completed 7-day course of Levaquin. DVT Prophylaxis: on Eliquis for full anticoagulation Disposition: Patient is stable for discharge to ARU from a hospital standpoint. Patient will be discharged by general surgery to the acute rehab unit today. VS,Franklin, I+O VS, Jerrybone, I+O Laboratory Tests 06/15/21 04:44 Vital Signs Date Time Temp Pulse Resp B/P (MAP) Pulse Ox O2 Delivery O2 Flow Rate FiO2 06/15/21 08:00 97.6 85 18 148/78 (101) 96 Room Air 06/10/21 04:00 2.0 I&O- Last 24 Hours up to 6 AM 06/15/21 06:00 Intake Total 1675 ml Output Total 1100 ml Balance 575 ml GME ATTESTATION GME ATTESTATION My faculty preceptor for this patient encounter was physically present during the encounter and was fully available. All aspects of the patient interview, examination, medical decision making process, and medical care plan development were reviewed and approved by the faculty preceptor. The faculty preceptor is aware and concurs with the plan as stated in the body of this note and will attest to such by his/her cosignature. ATTENDING NOTE I, Dav Pascal DO, have independently examined this patient and performed my own physical exam, as well as reviewed the documentation and edited where necessary. I have discussed in detail with the resident the findings and plan of treatment as documented by the resident and edited their note. I agree with their findings and treatment plan and have edited their documentation. I will continue to follow the patient during this hospital stay. ELDA SIMPSON D.O. Jun 15, 2021 10:59 DAV PASCAL DO Jun 15, 2021 16:17
[2021-06-15] MEDS: ACETAMINOPHEN TAB 650MG DOSE (2X325MG) PO PRN (11:07)
[2021-06-15 12:00] VITALS: BP 136/71
[2021-06-15] MEDS ORDERED: SENN-52 PO (13:54)
[2021-06-15] MEDS ORDERED: POTA-136 PO (13:54)
== END 2021-06-15 15:31 | DRG 388 ==
LOC: M ED 10:48 → M ED INP 15:01 → ENRESERV 20:16 → M PCU 21:28
PROVIDERS: ADMIT Surgery; ATTEND Surgery
DX: K56.609 Unspecified intestinal obstruction, unspecified as to partial versus complete obstruction (principal); G93.41 Metabolic encephalopathy; E87.1 Hypo-osmolality and hyponatremia; Z98.1 Arthrodesis status; I49.5 Sick sinus syndrome; I25.10 Atherosclerotic heart disease of native coronary artery without angina pectoris; I48.0 Paroxysmal atrial fibrillation; J44.9 Chronic obstructive pulmonary disease, unspecified; I11.9 Hypertensive heart disease without heart failure; M79.7 Fibromyalgia; G25.0 Essential tremor; I35.0 Nonrheumatic aortic (valve) stenosis; M32.9 Systemic lupus erythematosus, unspecified; F41.9 Anxiety disorder, unspecified; F32.9 Major depressive disorder, single episode, unspecified; E78.5 Hyperlipidemia, unspecified; Z87.891 Personal history of nicotine dependence; Z79.01 Long term (current) use of anticoagulants; Z79.82 Long term (current) use of aspirin; Z79.899 Other long term (current) drug therapy; Z88.0 Allergy status to penicillin; Z88.1 Allergy status to other antibiotic agents; Z88.8 Allergy status to other drugs, medicaments and biological substances; Z95.0 Presence of cardiac pacemaker; Z93.3 Colostomy status

== ENCOUNTER 2021-06-15 13:57 | Inpatient (IN) | payer MEDICARE, OTHER ==
[~2021-06-15] VITALS: Ht 152.4 cm; Wt 47.4 kg
[~2021-06-15 13:57] MED LIST changes: +OXYC20TA2 PO; +POTA-136 PO; +SENN-52 PO
[2021-06-15 15:00] VITALS: BP 130/68
[2021-06-15] MEDS: REMEDY PHYTOPLEX Z-GUARD PASTE 113GM TUBE (FROM STOREROOM PRODUCT) TOP SCH ×2 (16:00→21:00)
[2021-06-15] MEDS: GABAPENTIN 300 MG CAP PO SCH ×2 (18:10→21:06)
[2021-06-15] MEDS: ACETAMINOPHEN TAB 650MG DOSE (2X325MG) PO PRN ×2 (18:11→23:54)
[2021-06-15 20:00] VITALS: BP 126/62
[2021-06-15] MEDS: COMBIVENT RESPIMAT 100-20MCG INHALER 4GM INH SCH (20:00)
[2021-06-15] MEDS: FLUTICASONE HFA 110 MCG 12 GM INHALER (FLOVENT) INH SCH (21:00)
[2021-06-15] MEDS: ASPIRIN 81MG ENTERIC TABLET PO SCH (21:05)
[2021-06-15] MEDS: APIXABAN 5 MG TAB (ELIQUIS) PO SCH (21:05)
[2021-06-15] MEDS: MONTELUKAST 10 MG TAB PO SCH (21:05)
[2021-06-15] MEDS: DOCUSATE SODIUM 100MG CAPSULE PO SCH (21:05)
[2021-06-15] MEDS: ROSUVASTATIN 10 MG TAB (CRESTOR) PO SCH (21:05)
[2021-06-15] MEDS: SENNA 8.6 MG TAB (SENOKOT) PO SCH (21:05)
[2021-06-15] MEDS: CARVedilol 3.125 MG TAB PO SCH (21:06)
[2021-06-16 06:00] VITALS: BP 142/65
[2021-06-16 06:40] LABS: BASO # 0.1 10^3/uL (0.0-0.2); BASO % 1.1 % (0.0-1.0); EOS # 0.6 10^3/uL (0.0-0.5); EOS % 8.1 % (0.0-3.0); HEMOGLOBIN 11.6 g/dl (12.0-15.5); LYMPH % 28.5 % (24.0-44.0); MEAN CORPUSCULAR HEMOGLOBIN 29.4 pg (27.0-33.0); MEAN CORPUSCULAR HGB CONC 32.2 g/dl (32.0-36.5); MEAN CORPUSCULAR VOLUME 91.1 fl (80.0-96.0); MONO # 0.8 10^3/uL (0.0-0.8); MONO % 11.4 % (2.0-8.0); NEUTROPHILS # 3.6 10^3/uL (1.5-8.5); NEUTROPHILS % 50.5 % (36.0-66.0); PLATELET COUNT, AUTOMATED 253 10^3/uL (150-450); RED BLOOD COUNT 3.95 10^6/uL (4.00-5.40); WHITE BLOOD COUNT 7.1 10^3/uL (4.0-10.0)
[2021-06-16 07:10] LABS: BLOOD UREA NITROGEN 8 MG/DL (7-18); CREATININE FOR GFR 0.86 MG/DL (0.55-1.30); GLOMERULAR FILTRATION RATE > 60.0 (>45); GLUCOSE, FASTING 87 MG/DL (70-100); SODIUM LEVEL 137 MEQ/L (136-145)
[2021-06-16 07:11] LABS: ALBUMIN 2.5 GM/DL (3.2-5.2); ALT/SGPT 13 U/L (12-78); BILIRUBIN,TOTAL 0.2 MG/DL (0.2-1.0); CALCIUM LEVEL 8.9 MG/DL (8.8-10.2); CARBON DIOXIDE LEVEL 26 MEQ/L (21-32); CHLORIDE LEVEL 107 MEQ/L (98-107); POTASSIUM SERUM 4.4 MEQ/L (3.5-5.1); TOTAL PROTEIN 5.8 GM/DL (6.4-8.2)
--- NOTE | 2021-06-16 08:41 | IPNPDOC ---
Text Note Date of Service The patient was seen on 06/16/21. NOTE General surgery. Dr. Johnson The patient is a 66-year-old female status post robotic assisted laparoscopic repair of parastomal and ventral hernia 05/26/2021, admitted 06/07/2021 with small bowel obstruction, transferred to ARU 06/15/21. The patient is up out of bed and sitting in the chair. Denies abdominal pain. Denies nausea or vomiting. Currently on full liquid diet. States she has been participating with therapy. Afebrile. VSS Abdomen. Soft, nondistended, ostomy with brown stool noted in the bag Ostomy output 250 mL output documented yesterday No new labs Assessment/plan Status post robotic assisted laparoscopic repair of parastomal and ventral jean ia 05/26/2021, admitted 06/07/2021 with small bowel obstruction. The patient is reviewed as per Dr. Johnson. NG tube left out 06/10/2021 SBFT yesterday indicated improvement from previous exam, 5 cm segment of narrowing in the distal ileum, no obstruction. Continuing to tolerate full liquids. Good output from ostomy. ARU, Participating with therapy. VS,Fishbone, I+O VS, Fishbone, I+O Laboratory Tests 06/16/21 06:18 Vital Signs Date Time Temp Pulse Resp B/P (MAP) Pulse Ox O2 Delivery O2 Flow Rate FiO2 06/16/21 06:00 97.5 76 17 142/65 (90) 97 Room Air I&O- Last 24 Hours up to 6 AM 06/16/21 05:59 Intake Total 60 ml Balance 60 ml Attending Note Attending Note I agree with above PA note. Now on ARU. Ostomy working well. Tolerating diet without problems. No abd pain. Imp: progressing well Recs: Continue on full liquids for now. Can try some pureed foods. If no pain or obstructive signs for a time I will discuss with her advancing to soft foods Crystal Zuluaga Jun 16, 2021 08:41 Greg Johnson Jun 18, 2021 21:58
[2021-06-16] MEDS: PANTOPRAZOLE 40MG TAB (PROTONIX) PO SCH (08:52)
[2021-06-16] MEDS: buPROPion **XL** TABLET 150MG (WELLBUTRIN XL) PO SCH (08:52)
[2021-06-16] MEDS: amLODIPine 5 MG TAB PO SCH (08:52)
[2021-06-16] MEDS: POTASSIUM CHLORIDE 10MEQ SR TABLET PO SCH (08:52)
[2021-06-16] MEDS: GABAPENTIN 300 MG CAP PO SCH ×3 (08:52→20:28)
[2021-06-16] MEDS: FOLIC ACID 1 MG TAB PO SCH (08:52)
[2021-06-16] MEDS: APIXABAN 5 MG TAB (ELIQUIS) PO SCH ×2 (08:53→20:27)
[2021-06-16] MEDS: CARVedilol 3.125 MG TAB PO SCH ×2 (08:53→20:28)
[2021-06-16] MEDS: LORATADINE 10 MG TAB PO SCH (08:53)
[2021-06-16] MEDS: DOCUSATE SODIUM 100MG CAPSULE PO SCH ×2 (08:53→20:29)
[2021-06-16] MEDS: DULoxetine 30MG CAPSULE (CYMBALTA) PO SCH (08:53)
[2021-06-16] MEDS: TOLTERODINE TARTRATE 2 MG LA CAP (DETROL LA) PO SCH (08:53)
[2021-06-16] MEDS: REMEDY PHYTOPLEX Z-GUARD PASTE 113GM TUBE (FROM STOREROOM PRODUCT) TOP SCH ×3 (08:54→20:29)
[2021-06-16] MEDS: COMBIVENT RESPIMAT 100-20MCG INHALER 4GM INH SCH ×3 (09:30→20:00)
--- NOTE | 2021-06-16 09:34 | HPEPDOC ---
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 SOURCE OF ADMISSION INFORMATION: [facility] record and patient CHIEF COMPLAINT: debility following SBO HISTORY OF PRESENT ILLNESS: 66F pmh Afib, CVA s/p right CEA, T12 compression fracture, abdominal aortic aneurysm, sick sinus syndrome with PM, essential tremor, fibromyalgia, COPD, chronic back pain on chronic opioids, anxiety/depression, HTN, recurrent SBOs presented to [facility] ED on 06-07-21 following a robotic assisted laparoscopic nazario- stomal hernia and ventral hernia repair with lysis of adhesions on 05-26-21 with worsening abdominal pain and distension with poor ostomy output. She was evaluated by surgery and diagnosed with small bowel obstruction for which she was made NPO, an NGT was placed. She had leukocytosis, electrolyte abnormalities, and developed RVR which required IV beta-blockade. Her diet was gradually advanced, she had an episode of hospital acquired delirium, was treated for a PNA, had persistent mobility and ADL impairments and deemed medically appropriate for discharge to ARU on 06-15-21. REVIEW OF SYSTEMS: The following is a completed review of systems and has been reviewed. Review of systems otherwise unremarkable. PAIN: Patient self reports no pain EYES: No recent vision changes EARS, NOSE, & THROAT: No throat pain, or dysphagia, or rhinorrhea CARDIOVASCULAR: Denies chest pain or palpitations PULMONARY: Denies shortness of breath GASTROINTESTINAL: Denies constipation/diarrhea, +ostomy GENITOURINARY: denies dysuria MUSCULOSKELETAL: generalized weakness NEUROLOGICAL:denies paresthesias HEMATOLOGICAL: denies easy bruising SKIN: +ostomy PSYCHIATRIC: +anxiety/depression All other review of systems found to be negative. PAST MEDICAL HISTORY: as per HPI PAST SURGICAL HISTORY: Subtotal colectomy 02/2020, resection of her stenotic ileostomy with new RUW ile ostomy 04/2020, PM [id number], spinal fusion, cholecystectomy, cesearan, hysterectomy, EGD/colonoscopy 02/2021 ALLERGIES: Please see below. MEDICATIONS: Please see below. SOCIAL HISTORY: Former smoker, no etoh/illicit drugs DIET: full liquid PHYSICAL EXAMINATION: VITAL SIGNS: Please see below. GENERAL: Pleasant and cooperative. No acute distress. HEENT: PERRL. Extraocular movements intact. Clear conjunctiva CARDIOVASCULAR: Regular rate and rhythm. No murmurs, rubs, or gallops, + PM LUNGS: Clear to auscultation bilaterally. No wheezes. No rhonchi]. ABDOMEN: Soft, nontender, nondistended. Positive bowel sounds. +osotomy with soft formed stool output NEUROLOGICAL: Alert and oriented times three. Cranial nerves II through XII grossly intact. Sensation grossly intact EXTREMITIES: 5\5 strength bilateral upper extremities. 4+\5 strength right lower extremity. 4+/5 strength in left lower extremity. SKIN: nazario-stoma site c/d/i LABORATORY DATA: Please see below. IMAGING: Imaging documentation personally reviewed by record. FUNCTIONAL STATUS: Premorbid: mod-Independent with all activities of daily life as well as mobility On Admission:Contact guard-Min assist for functional transfers, ambulation, dressing, toileting GOALS: Mod-I for bed mobility, functional transfers, ambulation, dressing, toileting, bathing, ostomy care ASSESSMENT:66-year-old F with past medical history of multiple abdominal surgeries who presents status post Small bowel obstruction with debility PLAN: 1. Rehab- PT/OT advance mobility and ADLs, strengthen/stretch/maintain ROM all 4 limbs 2. Neuro- patient with intermittent episodes of encephalopathy possible due to fluctuating electrolyte abnormalities vs opioids, may have some degree of cognitive impairments -refer to neurology on d/c for formal cog eval -hx of stroke s/p right CEA cont secondary stroke prevention- ASA and statin 3. Cardaic- hx of Afib with PM cont eliquis, beta-reyes -HTN cont BP meds -HLD cont statin -abdominal aortic aneurysm- to be followed by PCP -medicine consulted to assist in overall management 4. Resp- monitor for infection, cont breathing treatments, singulair, and claritin for hx of COPD -s/p course of Levaquin for PNA 5. GI- s/p robotic assisted laparoscopic nazario-stomal hernia and ventral hernia repair with lysis of adhesions on 05-26-21 complicated by SBO, treated with NGT decompression- cont full liquid diet- to be advanced per surgery who has been consulted -ostomy care -on omeprazole for ppx 6. Pain- patient with chronic pain with history of chronic opioid use, Avoid /minimize opioids as this likely has been contributing patients episodes of ileus vs obstruction -cont gabapentin 7. Psych- anxiety/depression with fibromyalgia cont Wellbutrin 8. - cont Detrol, monitor PVRs 9. DVT ppx- on eliquis 10. Dispo- TBD POST ADMISSION PHYSICIAN EVALUATION: Medical and functional status: Description of medical status, medical asse ssment: As above. Rehabilitation diagnosis and current and prior cold morbid medical conditions as above. Risk of complications and plans to mitigate them as above. Description of functional status current status is as above. Prior status as above. Status compared to preadmission: There are no clinically significant differences between the patient's current status and the information described on the preadmission screening document. Treatment plan anticipated: Treatment plan is as described above. Required disciplines including physical therapy, occupational therapy, others as noted above. Intensity of services: 3 hours a day, 6 days a week. Special considerations: There are no specific special or safety considerations that would likely preclude immediate implementation of an intensive re habilitation program or subsequently influence the plan of care. ATTESTATION: Considering all the information above, it is my best judgment that this patient requires intensive rehabilitation therapy as described above and an inpatient hospital environment due to the complexity of nursing, medical, and rehabilitation needs required by the patient. Furthermore, this patient can reasonably be expected to participate in an benefit from an inpatient rehabilitation stay with an interdisciplinary team approach to the delivery of rehabilitation care under the direction and supervision of rehabilitation physician. PROGNOSIS: good ESTIMATED LENGTH OF STAY:7-10 days. PROJECTED DISCHARGE DESTINATION: Home with family support and any durable medical equipment required to increase functional safety and mobility. TIME SPENT COUNSELING AND COORDINATING INITIAL CARE: Greater than 70 minutes. Vital Signs Vital Sign - Last 24 Hours 06/15/21 06/15/21 06/15/21 06/16/21 15:00 20:00 21:06 06:00 Temp 98.2 97.5 97.5 Pulse 90 87 87 76 Resp 20 18 17 B/P (MAP) 130/68 (88) 126/62 (83) 126/62 142/65 (90) Pulse Ox 95 94 97 O2 Delivery Room Air Room Air Room Air 06/16/21 06/16/21 08:52 08:53 Pulse 76 76 B/P (MAP) 142/65 142/65 Laboratory Data CBC/BMP Laboratory Tests 06/16/21 06:18 Labs 24H Laboratory Tests 2 06/16/21 06:18: Immature Granulocyte % (Auto) 0.4, Neutrophils (%) (Auto) 50.5, Lymphocytes (%) (Auto) 28.5, Monocytes (%) (Auto) 11.4H, Eosinophils (%) (Auto) 8.1H, Basophils (%) (Auto) 1.1H, Neutrophils # (Auto) 3.6, Lymphocytes # (Auto) 2.0, Monocytes # (Auto) 0.8, Eosinophils # (Auto) 0.6H, Basophils # (Auto) 0.1, Nucleated Red Blood Cells % (auto) 0.0, Anion Gap 4L, Glomerular Filtration Rate > 60.0, Calcium Level 8.9, Total Bilirubin 0.2, Aspartate Amino Transf (AST/SGOT) 12, Alanine Aminotransferase (ALT/SGPT) 13, Alkaline Phosphatase 63, Total Protein 5.8L, Albumin 2.5L, Albumin/Globulin Ratio 0.8L Home Medications Scheduled Amlodipine Besylate (Amlodipine Besylate) 5 Mg Tablet, 5 MG PO DAILY, (Reported) Apixaban (Eliquis) 5 Mg Tablet, 5 MG PO BID, (Reported) Aspirin (Aspirin) 81 Mg Tab.chew, 81 MG PO QHS, (Reported) B6/Folic/B12/Coffee/Phosphatid (Neuriva Plus Brain Perform Cap) 1.7MG-400 Capsule, 1 CAP PO QHS, (Reported) Bupropion HCl (Wellbutrin Xl) 150 Mg Tab.er.24h, 150 MG PO DAILY, (Reported) Carvedilol (Carvedilol) 3.125 Mg Tablet, 3.125 MG PO BID, (Reported) Cholecalciferol (Vitamin D3) (Vitamin D3) 25 Mcg Tablet, 25 MCG PO DAILY, (Reported) Duloxetine Hcl (Duloxetine HCl) 30 Mg Capsule.dr, 60 MG PO DAILY, (Reported) Esomeprazole Magnesium (Nexium) 40 Mg Capsule.dr, 40 MG PO BID, (Reported) has to take name brand Folic Acid (Folic Acid) 1 Mg Tablet, 1 MG PO DAILY, (Reported) Gabapentin (Gabapentin) 300 Mg Capsule, 300 MG PO BID, (Reported) AM AND DINNERTIME (EVENING) Gabapentin (Gabapentin) 300 Mg Capsule, 600 MG PO QHS, (Reported) Loratadine (Loratadine) 10 Mg Tablet, 10 MG PO DAILY, (Reported) Magnesium Oxide (Magnesium) 250 Mg Tablet, 250 MG PO DAILY, (Reported) Montelukast Sodium (Singulair) 10 Mg Tablet, 10 MG PO QHS, (Reported) Multivitamin,Therapeutic (Thera-Tabs) 1 Each Tablet, 1 TAB PO DAILY, (Reported) Potassium Chloride (Klor-Con M10) 10 Meq Tab.er.prt, 20 MEQ PO DAILY Rosuvastatin Calcium (Rosuvastatin Calcium) 10 Mg Tablet, 10 MG PO QHS, (Reported) Sennosides/Docusate Sodium (Senna Plus Tablet) 1 Each Tablet, 1 TAB PO BID Tolterodine Tartrate (Detrol LA) 4 Mg Cap.er.24h, 4 MG PO DAILY, (Reported) Scheduled PRN Albuterol Sulfate (Proair Hfa) 8.5 Gm Hfa.aer.ad, 2 PUFFS INH QID PRN for SHORTNESS OF BREATH, (Reported) Conjugated Estrogens (Premarin) 30 Gm Cream.appl, 1 APPLIC PV 2XW PRN for ATROPHY, (Reported) Fluticasone Propionate (Flovent Hfa) 110 Mcg/Act Aer.w.adap, 2 PUFF INH BID PRN for SHORTNESS OF BREATH, (Reported) Allergies Coded Allergies: Penicillins (Verified Allergy, Severe, anaphylaxis, 05/18/21) pregabalin (Verified Allergy, Severe, ANAPHYLAXIS, 05/18/21) Cephalosporins (Verified Adverse Reaction, Severe, red man syndrome, 05/18/21) A-FIB/CHADSVASC A-FIB History Current/History of A-Fib/PAF?: Yes Current PO Anticoag Therapy: Yes EDIE TORRES MD Jun 16, 2021 09:34
--- NOTE | 2021-06-16 09:35 | HPEPDOC ---
[employer] Note DATE OF ADMISSION: DATE OF SERVICE: TIME OF ADMISSION: Please refer to physician's admission order. SOURCE OF ADMISSION INFORMATION: CHIEF COMPLAINT: . HISTORY OF PRESENT ILLNESS: REVIEW OF SYSTEMS: The following is a completed review of systems and has been reviewed. Review of systems otherwise unremarkable. PAIN: Patient self reports [no pain]. EYES: [No recent vision changes]. EARS, NOSE, & THROAT: [No throat pain, or dysphagia, or rhinorrhea]. CARDIOVASCULAR: [Denies chest pain or palpitations]. PULMONARY: [Denies shortness of breath]. GASTROINTESTINAL: [Denies constipation/diarrhea]. GENITOURINARY: . MUSCULOSKELETAL: . NEUROLOGICAL:. HEMATOLOGICAL: . SKIN: . PSYCHIATRIC: [Unremarkable]. All other review of systems found to be negative. PAST MEDICAL HISTORY: 1. . 2. . 3. . 4. . 5. . PAST SURGICAL HISTORY: 1. . 2. . 3. . 4. . 5. . ALLERGIES: Please see below. MEDICATIONS: Please see below. FAMILY HISTORY: . SOCIAL HISTORY: . DIET: . PHYSICAL EXAMINATION: VITAL SIGNS: Please see below. GENERAL: [Pleasant and cooperative. No acute distress. Alert and oriented times three.] HEENT: [PERRL. Extraocular movements intact. Clear conjunctiva]. CARDIOVASCULAR: [Regular rate and rhythm. No murmurs, rubs, or gallops]. LUNGS: [Clear to auscultation bilaterally. No wheezes. No rhonchi]. ABDOMEN: [Soft, nontender, nondistended. Positive bowel sounds. Normal active bowel sounds]. NEUROLOGICAL: [Alert and oriented times three. Cranial nerves II through XII grossly intact. Sensation grossly intact]. EXTREMITIES: [\5 strength bilateral upper extremities. \5 strength right lower extremity. /5 strength in left lower extremity. range of motion in left lower extremity]. SKIN: . LABORATORY DATA: Please see below. IMAGING:[Imaging documentation personally reviewed by record]. FUNCTIONAL STATUS: Premorbid: [Independent with all activities of daily life as well as mobility]. On Admission: [Total assistance for lower body dressing, shower transfers, stairs]. [Maximum] assistance for bathing, upper body dressing, bed chair and wheelchair transfers, toilet transfers, ambulation. [Minimum] assistance for grooming. [Supervision] for memory and problem solving. [Modified] independence for social interaction, expression, comprehension, bowel and bladder. GOALS: ASSESSMENT:-year-old with past medical history of who presents status post PLAN: 1. . 2. . 3. . 3. . 4. . POST ADMISSION PHYSICIAN EVALUATION: Medical and functional status: Description of medical status, medical assessment: As above. Rehabilitation diagnosis and current and prior cold morbid medical conditions as above. Risk of complications and plans to mitigate them as above. Description of functional status current status is as above. Prior status as above. Status compared to preadmission: There are no clinically significant differences between the patient's current status and the information described on the preadmission screening document. Treatment plan anticipated: Treatment plan is as described above. Required disciplines including physical therapy, occupational therapy, others as noted above]. Intensity of services: hours a day, days a week. Special considerations: [There are no specific special or safety considerations that would likely preclude immediate implementation of an intensive rehabilitation program or subsequently influence the plan of care]. ATTESTATION: [Considering all the information above, it is my best judgment that this patient requires intensive rehabilitation therapy as described above and an inpatient hospital environment due to the complexity of nursing, medical, and rehabilitation needs required by the patient. Furthermore, this patient can reasonably be expected to participate in an benefit from an inpatient rehabilit ation stay with an interdisciplinary team approach to the delivery of rehabilitation care under the direction and supervision of rehabilitation physician]. PROGNOSIS: [Excellent]. ESTIMATED LENGTH OF STAY:- days. PROJECTED DISCHARGE DESTINATION: [Home with family support and any durable medical equipment required to increase functional safety and mobility]. TIME SPENT COUNSELING AND COORDINATING INITIAL CARE: Greater than minutes. Vital Signs Vital Sign - Last 24 Hours 06/15/21 06/15/21 06/15/21 06/16/21 15:00 20:00 21:06 06:00 Temp 98.2 97.5 97.5 Pulse 90 87 87 76 Resp 20 18 17 B/P (MAP) 130/68 (88) 126/62 (83) 126/62 142/65 (90) Pulse Ox 95 94 97 O2 Delivery Room Air Room Air Room Air 06/16/21 06/16/21 08:52 08:53 Pulse 76 76 B/P (MAP) 142/65 142/65 Laboratory Data CBC/BMP Laboratory Tests 06/16/21 06:18 Labs 24H Laboratory Tests 2 06/16/21 06:18: Immature Granulocyte % (Auto) 0.4, Neutrophils (%) (Auto) 50.5, Lymphocytes (%) (Auto) 28.5, Monocytes (%) (Auto) 11.4H, Eosinophils (%) (Auto) 8.1H, Basophils (%) (Auto) 1.1H, Neutrophils # (Auto) 3.6, Lymphocytes # (Auto) 2.0, Monocytes # (Auto) 0.8, Eosinophils # (Auto) 0.6H, Basophils # (Auto) 0.1, Nucleated Red Blood Cells % (auto) 0.0, Anion Gap 4L, Glomerular Filtration Rate > 60.0, Calcium Level 8.9, Total Bilirubin 0.2, Aspartate Amino Transf (AST/SGOT) 12, Alanine Aminotransferase (ALT/SGPT) 13, Alkaline Phosphatase 63, Total Protein 5.8L, Albumin 2.5L, Albumin/Globulin Ratio 0.8L Home Medications Scheduled Amlodipine Besylate (Amlodipine Besylate) 5 Mg Tablet, 5 MG PO DAILY, (Reported) Apixaban (Eliquis) 5 Mg Tablet, 5 MG PO BID, (Reported) Aspirin (Aspirin) 81 Mg Tab.chew, 81 MG PO QHS, (Reported) B6/Folic/B12/Coffee/Phosphatid (Neuriva Plus Brain Perform Cap) 1.7MG-400 Capsule, 1 CAP PO QHS, (Reported) Bupropion HCl (Wellbutrin Xl) 150 Mg Tab.er.24h, 150 MG PO DAILY, (Reported) Carvedilol (Carvedilol) 3.125 Mg Tablet, 3.125 MG PO BID, (Reported) Cholecalciferol (Vitamin D3) (Vitamin D3) 25 Mcg Tablet, 25 MCG PO DAILY, (Reported) Duloxetine Hcl (Duloxetine HCl) 30 Mg Capsule.dr, 60 MG PO DAILY, (Reported) Esomeprazole Magnesium (Nexium) 40 Mg Capsule.dr, 40 MG PO BID, (Reported) has to take name brand Folic Acid (Folic Acid) 1 Mg Tablet, 1 MG PO DAILY, (Reported) Gabapentin (Gabapentin) 300 Mg Capsule, 300 MG PO BID, (Reported) AM AND DINNERTIME (EVENING) Gabapentin (Gabapentin) 300 Mg Capsule, 600 MG PO QHS, (Reported) Loratadine (Loratadine) 10 Mg Tablet, 10 MG PO DAILY, (Reported) Magnesium Oxide (Magnesium) 250 Mg Tablet, 250 MG PO DAILY, (Reported) Montelukast Sodium (Singulair) 10 Mg Tablet, 10 MG PO QHS, (Reported) Multivitamin,Therapeutic (Thera-Tabs) 1 Each Tablet, 1 TAB PO DAILY, (Reported) Potassium Chloride (Klor-Con M10) 10 Meq Tab.er.prt, 20 MEQ PO DAILY Rosuvastatin Calcium (Rosuvastatin Calcium) 10 Mg Tablet, 10 MG PO QHS, (Repo rted) Sennosides/Docusate Sodium (Senna Plus Tablet) 1 Each Tablet, 1 TAB PO BID Tolterodine Tartrate (Detrol LA) 4 Mg Cap.er.24h, 4 MG PO DAILY, (Reported) Scheduled PRN Albuterol Sulfate (Proair Hfa) 8.5 Gm Hfa.aer.ad, 2 PUFFS INH QID PRN for SHORTNESS OF BREATH, (Reported) Conjugated Estrogens (Premarin) 30 Gm Cream.appl, 1 APPLIC PV 2XW PRN for ATROPHY, (Reported) Fluticasone Propionate (Flovent Hfa) 110 Mcg/Act Aer.w.adap, 2 PUFF INH BID PRN for SHORTNESS OF BREATH, (Reported) Allergies Coded Allergies: Penicillins (Verified Allergy, Severe, anaphylaxis, 05/18/21) pregabalin (Verified Allergy, Severe, ANAPHYLAXIS, 05/18/21) Cephalosporins (Verified Adverse Reaction, Severe, red man syndrome, 05/18/21) EDIE TORRES MD Jun 16, 2021 09:35
[2021-06-16] MEDS: ACETAMINOPHEN TAB 650MG DOSE (2X325MG) PO PRN ×2 (11:06→18:15)
--- NOTE | 2021-06-16 12:12 | IPNPDOC ---
Text Note Date of Service The patient was seen on 06/16/21. NOTE Subjective: Patient is a 66-year-old female with a PMHx of Ischemic bowel / Recurrent SBO s/p Ileostomy, who presented to the emergency room with complaints of abdominal pain. Patient was found to have small bowel structure on 06/07 and was admitted to the surgical service. Patient was transitioned to acute rehabilitation on 06/15. Hospital services been consulted for medical comanagement. Patient was seen and examined at the bedside. Patient denies any nausea, vomiting or any significant abdominal pain. Reports that Tylenol has been effective has been having output from her ostomy. Denies any urinary discomfort. Denies any chest pain, shortness of breath or palpitations. Patient is requesting her diet to be advanced; advised her that we would discuss with surgery. Objective: Vitals (See below) General: Lying in bed, no acute distress, comfortable, AAOx3 HEENT: NC, AT CVS: +S1S2 Lungs: Fair air entry b/l, -w/r/r Abdomen: Soft, ND, NT, +ostomy w/ mushy stool noted Extremities: - Edema, - Calf tenderness Imaging: No new imaging Assessment and plan: s/p Abdominal pain - 2/2 SBO - Clinically patient is doing well, tolerating a diet. - Denies any nausea, vomiting and has been having output from her ostomy - Physical without any significant tenderness - Management as per Surgery; s/p NG tube - Currently on full liquid diet s/p Hyponatremia s/p Hypokalemia s/p Acute metabolic encephalopathy - possibly 2/2 delirium 2/2 acute illness / hospitalization - Currently oriented to person/place/time HTN - BP well controlled - c/w Amlodipine / Carvedilol Chronic COPD - No evidence of exacerbation - c/w inhaled therapy as ordered Anxiety / Depression. - c/w Bupropion / Duloxetine DLP - c/w Rosuvastatin Paroxysmal atrial fibrillation - c/w Carvedilol - c/w full anticoagulation with Eliquis CXR w/ left lower lobe airspace disease - Possibly early PNA - s/p 7-day course of Levaquin. Neuropathy - c/w Gabapentin Overactive bladder - c/w Tolterodine GI prophylaxis - c/w Protonix DVT prophylaxis - c/w full anticoagulation with Eliquis Disposition: - As per ARU VS,[place], I+O VS, [place], I+O Laboratory Tests 06/16/21 06:18 Vital Signs Date Time Temp Pulse Resp B/P (MAP) Pulse Ox O2 Delivery O2 Flow Rate FiO2 06/16/21 08:53 76 142/65 06/16/21 06:00 97.5 17 97 Room Air I&O- Last 24 Hours up to 6 AM 06/16/21 06:00 Intake Total 60 ml Output Total 150 ml Balance -90 ml GERRY ARRIOLA MD Jun 16, 2021 12:12
[2021-06-16] MEDS ORDERED: PILL CUTTER 1 EACH XX PRN (12:15)
[2021-06-16] MEDS ORDERED: ACETAMINOPHEN 500 MG TAB PO ONE (12:15)
[2021-06-16] MEDS: traMADol 50 MG TAB PO PRN ×2 (12:19→20:34)
[2021-06-16] MEDS: FLUTICASONE HFA 110 MCG 12 GM INHALER (FLOVENT) INH SCH ×2 (13:22→21:00)
[2021-06-16 14:00] VITALS: BP 144/65
[2021-06-16 17:28] LABS: FOLATE > 24.0 NG/ML (>5.4); VITAMIN B12 LEVEL 802 PG/ML (247-911)
[2021-06-16 20:00] VITALS: BP 147/74
[2021-06-16] MEDS: ASPIRIN 81MG ENTERIC TABLET PO SCH (20:28)
[2021-06-16] MEDS: ROSUVASTATIN 10 MG TAB (CRESTOR) PO SCH (20:28)
[2021-06-16] MEDS: MONTELUKAST 10 MG TAB PO SCH (20:28)
[2021-06-16] MEDS: SENNA 8.6 MG TAB (SENOKOT) PO SCH (20:29)
[2021-06-17 06:00] VITALS: BP 138/77
[2021-06-17 06:24] LABS: BASO # 0.1 10^3/uL (0.0-0.2); BASO % 1.2 % (0.0-1.0); EOS # 0.7 10^3/uL (0.0-0.5); EOS % 8.9 % (0.0-3.0); HEMATOCRIT 38.4 % (36.0-47.0); HEMOGLOBIN 12.5 g/dl (12.0-15.5); LYMPH % 26.9 % (24.0-44.0); MEAN CORPUSCULAR HEMOGLOBIN 29.7 pg (27.0-33.0); MEAN CORPUSCULAR HGB CONC 32.6 g/dl (32.0-36.5); MEAN CORPUSCULAR VOLUME 91.2 fl (80.0-96.0); MONO % 13.6 % (2.0-8.0); NEUTROPHILS # 3.6 10^3/uL (1.5-8.5); NEUTROPHILS % 48.9 % (36.0-66.0); PLATELET COUNT, AUTOMATED 296 10^3/uL (150-450); RED BLOOD COUNT 4.21 10^6/uL (4.00-5.40); WHITE BLOOD COUNT 7.4 10^3/uL (4.0-10.0)
[2021-06-17 06:36] LABS: BLOOD UREA NITROGEN 9 MG/DL (7-18); CALCIUM LEVEL 9.1 MG/DL (8.8-10.2); CARBON DIOXIDE LEVEL 25 MEQ/L (21-32); CHLORIDE LEVEL 107 MEQ/L (98-107); CREATININE FOR GFR 0.95 MG/DL (0.55-1.30); GLOMERULAR FILTRATION RATE > 60.0 (>45); GLUCOSE, FASTING 84 MG/DL (70-100); POTASSIUM SERUM 4.5 MEQ/L (3.5-5.1); SODIUM LEVEL 136 MEQ/L (136-145)
[2021-06-17] MEDS: LORATADINE 10 MG TAB PO SCH (08:28)
[2021-06-17] MEDS: FOLIC ACID 1 MG TAB PO SCH (08:28)
[2021-06-17] MEDS: DULoxetine 30MG CAPSULE (CYMBALTA) PO SCH (08:28)
[2021-06-17] MEDS: CARVedilol 3.125 MG TAB PO SCH ×2 (08:28→20:58)
[2021-06-17] MEDS: amLODIPine 5 MG TAB PO SCH (08:28)
[2021-06-17] MEDS: POTASSIUM CHLORIDE 10MEQ SR TABLET PO SCH (08:28)
[2021-06-17] MEDS: GABAPENTIN 300 MG CAP PO SCH ×3 (08:28→20:57)
[2021-06-17] MEDS: PANTOPRAZOLE 40MG TAB (PROTONIX) PO SCH (08:29)
[2021-06-17] MEDS: ACETAMINOPHEN TAB 650MG DOSE (2X325MG) PO PRN (08:29)
[2021-06-17] MEDS: buPROPion **XL** TABLET 150MG (WELLBUTRIN XL) PO SCH (08:29)
[2021-06-17] MEDS: DOCUSATE SODIUM 100MG CAPSULE PO SCH ×2 (08:29→20:59)
[2021-06-17] MEDS: APIXABAN 5 MG TAB (ELIQUIS) PO SCH ×2 (08:29→20:57)
[2021-06-17] MEDS: REMEDY PHYTOPLEX Z-GUARD PASTE 113GM TUBE (FROM STOREROOM PRODUCT) TOP SCH ×3 (09:00→21:00)
[2021-06-17] MEDS: TOLTERODINE TARTRATE 2 MG LA CAP (DETROL LA) PO SCH (09:54)
[2021-06-17] MEDS: traMADol 50 MG TAB PO PRN (09:54)
[2021-06-17] MEDS: COMBIVENT RESPIMAT 100-20MCG INHALER 4GM INH SCH ×3 (10:02→21:15)
[2021-06-17] MEDS: FLUTICASONE HFA 110 MCG 12 GM INHALER (FLOVENT) INH SCH ×2 (13:31→21:15)
[2021-06-17 14:12] VITALS: BP 117/92
--- NOTE | 2021-06-17 16:16 | REP ---
INDICATION: r/o infiltrate. COMPARISON: 06/18/2012 the latest prior portable exam TECHNIQUE: PA and lateral FINDINGS: The superior mediastinal structures are midline. The dual chamber bipolar pacemaker devices unchanged. The cardiac silhouette is unremarkable in size, shape, and position. The diaphragmatic surfaces of the lungs are regular, and the costophrenic angles are clear. The pulmonary narayan are clear. The imaged osseous structures are intact. IMPRESSION: There is no acute cardiopulmonary disease. <Electronically signed by Sam Marcano > 06/17/21 [id number]
[2021-06-17] MEDS: guaiFENesin 200 MG TAB PO SCH ×2 (16:18→20:56)
[2021-06-17 20:30] VITALS: BP 152/63
[2021-06-17] MEDS: MONTELUKAST 10 MG TAB PO SCH (20:57)
[2021-06-17] MEDS: ROSUVASTATIN 10 MG TAB (CRESTOR) PO SCH (20:57)
[2021-06-17] MEDS: ASPIRIN 81MG ENTERIC TABLET PO SCH (20:58)
[2021-06-17] MEDS: SENNA 8.6 MG TAB (SENOKOT) PO SCH (20:58)
[2021-06-18 05:41] VITALS: BP 147/67
[2021-06-18] MEDS: COMBIVENT RESPIMAT 100-20MCG INHALER 4GM INH SCH ×3 (06:41→19:55)
[2021-06-18] MEDS: FLUTICASONE HFA 110 MCG 12 GM INHALER (FLOVENT) INH SCH (06:41)
[2021-06-18] MEDS: DOCUSATE SODIUM 100MG CAPSULE PO SCH ×2 (09:00→21:00)
[2021-06-18] MEDS: REMEDY PHYTOPLEX Z-GUARD PASTE 113GM TUBE (FROM STOREROOM PRODUCT) TOP SCH ×3 (09:00→21:00)
[2021-06-18] MEDS: APIXABAN 5 MG TAB (ELIQUIS) PO SCH ×2 (09:10→20:31)
[2021-06-18] MEDS: DULoxetine 30MG CAPSULE (CYMBALTA) PO SCH (09:10)
[2021-06-18] MEDS: buPROPion **XL** TABLET 150MG (WELLBUTRIN XL) PO SCH (09:10)
[2021-06-18] MEDS: TOLTERODINE TARTRATE 2 MG LA CAP (DETROL LA) PO SCH (09:10)
[2021-06-18] MEDS: guaiFENesin 200 MG TAB PO SCH ×3 (09:10→20:28)
[2021-06-18] MEDS: PANTOPRAZOLE 40MG TAB (PROTONIX) PO SCH (09:10)
[2021-06-18] MEDS: LORATADINE 10 MG TAB PO SCH (09:11)
[2021-06-18] MEDS: amLODIPine 5 MG TAB PO SCH (09:11)
[2021-06-18] MEDS: POTASSIUM CHLORIDE 10MEQ SR TABLET PO SCH (09:11)
[2021-06-18] MEDS: FOLIC ACID 1 MG TAB PO SCH (09:12)
[2021-06-18] MEDS: GABAPENTIN 300 MG CAP PO SCH ×3 (09:12→20:32)
[2021-06-18] MEDS: CARVedilol 3.125 MG TAB PO SCH ×2 (09:12→20:31)
[2021-06-18] MEDS: ACETAMINOPHEN TAB 650MG DOSE (2X325MG) PO PRN ×2 (09:13→20:34)
--- NOTE | 2021-06-18 13:14 | IPNPDOC ---
PM&R Progress Note DATE OF SERVICE: Jun 17, 2021 Cash Manager Progress Note Subjective: Patient reporting she has developed a cough, she denies fevers/chills. She is concerned tramadol is making her lose her balance. REVIEW OF SYSTEMS: The following is a completed review of systems and has been reviewed. Review of systems otherwise unremarkable. PAIN: Patient self reports no pain EYES: No recent vision changes EARS, NOSE, & THROAT: No throat pain, or dysphagia, or rhinorrhea CARDIOVASCULAR: Denies chest pain or palpitations PULMONARY: Denies shortness of breath GASTROINTESTINAL: Denies constipation/diarrhea, +ostomy GENITOURINARY: denies dysuria MUSCULOSKELETAL: generalized weakness NEUROLOGICAL:denies paresthesias HEMATOLOGICAL: denies easy bruising SKIN: +ostomy PSYCHIATRIC: +anxiety/depression All other review of systems found to be negative. PAST MEDICAL HISTORY: as per HPI PAST SURGICAL HISTORY: Subtotal colectomy 02/2020, resection of her stenotic ileostomy with new RUW ileostomy 04/2020, PM [id number], spinal fusion, cholecystectomy, cesearan, hysterectomy, EGD/colonoscopy 02/2021 ALLERGIES: Please see below. MEDICATIONS: Please see below. SOCIAL HISTORY: Former smoker, no etoh/illicit drugs DIET: full liquid PHYSICAL EXAMINATION: VITAL SIGNS: Please see below. GENERAL: Pleasant and cooperative. No acute distress. HEENT: PERRL. Extraocular movements intact. Clear conjunctiva CARDIOVASCULAR: Regular rate and rhythm. No murmurs, rubs, or gallops, + PM LUNGS: Clear to auscultation bilaterally. No wheezes. No rhonchi]. ABDOMEN: Soft, nontender, nondistended. Positive bowel sounds. +osotomy with soft formed stool output NEUROLOGICAL: Alert and oriented times three. Cranial nerves II through XII grossly intact. Sensation grossly intact EXTREMITIES: 5\5 strength bilateral upper extremities. 4+\5 strength right lower extremity. 4+/5 strength in left lower extremity. SKIN: nazario-stoma site c/d/i LABORATORY DATA: Please see below. IMAGING: Imaging documentation personally reviewed by record. FUNCTIONAL STATUS: Premorbid: mod-Independent with all activities of daily life as well as mobility On Admission:Contact guard-Min assist for functional transfers, ambulation, dressing, toileting GOALS: Mod-I for bed mobility, functional transfers, ambulation, dressing, toileting, bathing, ostomy care ASSESSMENT:66-year-old F with past medical history of multiple abdominal surgeries who presents status post Small bowel obstruction with debility PLAN: 1. Rehab- PT/OT advance mobility and ADLs, strengthen/stretch/maintain ROM all 4 limbs 2. Neuro- patient with intermittent episodes of encephalopathy possible due to fluctuating electrolyte abnormalities vs opioids, may have some degree of cognitive impairments -refer to neurology on d/c for formal cog eval -hx of stroke s/p right CEA cont secondary stroke prevention- ASA and statin 3. Cardaic- hx of Afib with PM cont eliquis, beta-reyes -HTN cont BP meds -HLD cont statin -abdominal aortic aneurysm- to be followed by PCP -medicine consulted to assist in overall management 4. Resp- monitor for infection, cont breathing treatments, singulair, and claritin for hx of COPD -s/p course of Levaquin for PNA-patient reporting new cough, will order repeat CXR, encourage incentive spirometry, will add guaifenesin 5. GI- s/p robotic assisted laparoscopic nazario-stomal hernia and ventral hernia repair with lysis of adhesions on 05-26-21 complicated by SBO, treated with NGT decompression- cont full liquid diet- to be advanced per surgery who has been consulted -ostomy care -on omeprazole for ppx 6. Pain- patient with chronic pain with history of chronic opioid use, Avoid/minimize opioids as this likely has been contributing patients episodes of ileus vs obstruction -cont gabapentin, irene trop trial of low dose tramadol prn 7. Psych- anxiety/depression with fibromyalgia cont Wellbutrin 8. - cont Detrol, monitor PVRs 9. DVT ppx- on eliquis 10. Dispo- TBD Allergies Coded Allergies: Penicillins (Verified Allergy, Severe, anaphylaxis, 05/18/21) pregabalin (Verified Allergy, Severe, ANAPHYLAXIS, 05/18/21) Cephalosporins (Verified Adverse Reaction, Severe, red man syndrome, 05/18/21) Vital Signs Vital Signs Date Time Temp Pulse Resp B/P (MAP) Pulse Ox O2 Delivery O2 Flow Rate FiO2 06/18/21 09:12 79 147/67 06/18/21 05:41 98.0 18 100 Room Air Current Medications Current Medications Current Medications Medications (Trade) Dose Ordered Sig/Nicolas Route PRN Reason Start Time Stop Time Status Last Admin Dose Admin Acetaminophen (Tylenol Tab) 650 mg Q4HP PRN PO fever/MILD PAIN (PS 1-4) 06/15/21 14:50 06/18/21 09:13 Albuterol/ Ipratropium (Combivent Respimat 100-20mcg) 1 puff RTID INH 06/15/21 20:00 06/18/21 06:41 Amlodipine Besylate (Norvasc) 5 mg DAILY PO 06/16/21 09:00 06/18/21 09:11 Apixaban (Eliquis) 5 mg BID PO 06/15/21 21:00 06/18/21 09:10 Aspirin (Ecotrin) 81 mg QHS PO 06/15/21 21:00 06/17/21 20:58 Bupropion HCl (Wellbutrin Xl) 150 mg DAILY PO 06/16/21 09:00 06/18/21 09:10 Carvedilol (COReg) 3.125 mg BID PO 06/15/21 21:00 06/18/21 09:12 Docusate Sodium (Colace) 100 mg BID PO 06/15/21 21:00 06/16/21 20:29 Duloxetine HCl (Cymbalta) 60 mg DAILY PO 06/16/21 09:00 06/18/21 09:10 Fluticasone Propionate (Flovent Hfa 110 Mcg) 2 puff BID INH 06/15/21 21:00 06/18/21 06:41 Folic Acid (Folic Acid) 1 mg DAILY PO 06/16/21 09:00 06/18/21 09:12 Gabapentin (Neurontin) 300 mg BID@0900,1800 PO 06/15/21 18:00 06/18/21 12:51 DC 06/18/21 09:12 Gabapentin (Neurontin) 600 mg QHS PO 06/15/21 21:00 06/18/21 12:51 DC 06/17/21 20:57 Gabapentin (Neurontin) 600 mg TID PO 06/18/21 16:00 UNV Guaifenesin (Robitussin Tab) 400 mg TID PO 06/17/21 16:00 06/18/21 09:10 Loratadine (Claritin) 10 mg DAILY PO 06/16/21 09:00 06/18/21 09:11 Montelukast Sodium (Singulair) 10 mg QHS PO 06/15/21 21:00 06/17/21 20:57 Ondansetron HCl (Zofran Odt) 4 mg Q6HP PRN PO NAUSEA OR VOMITING 06/15/21 14:50 Pantoprazole Sodium (Protonix) 40 mg DAILY PO 06/16/21 09:00 06/18/21 09:10 Potassium Chloride (Micro-K Extencaps) 20 meq DAILY PO 06/16/21 09:00 06/18/21 09:11 Rosuvastatin Calcium (Crestor) 10 mg QHS PO 06/15/21 21:00 06/17/21 20:57 Senna (Senokot) 1 tab QHS PO 06/15/21 21:00 06/16/21 20:29 Tolterodine Tartrate (Detrol La) 4 mg DAILY PO 06/16/21 09:00 06/18/21 09:10 Tramadol HCl (Ultram) 25 mg Q8HP PRN PO MODERATE PAIN (PS >7/10) 06/16/21 12:00 06/17/21 13:22 DC 06/17/21 09:54 EDIE TORRES MD Jun 18, 2021 13:14
--- NOTE | 2021-06-18 13:15 | IPNPDOC ---
PM&R Progress Note DATE OF SERVICE: Jun 18, 2021 Makeup Editor Progress Note Subjective: Patient reporting her cough has resolved, she is concerned that even tylenol is making her feel a little out of it. She states she is having incisional pain and would like to try going up on her gabapentin and taking less of the tylenol. REVIEW OF SYSTEMS: The following is a completed review of systems and has been reviewed. Review of systems otherwise unremarkable. PAIN: Patient self reports incisional site pain EYES: No recent vision changes EARS, NOSE, & THROAT: No throat pain, or dysphagia, or rhinorrhea CARDIOVASCULAR: Denies chest pain or palpitations PULMONARY: Denies shortness of breath GASTROINTESTINAL: Denies constipation/diarrhea, +ostomy GENITOURINARY: denies dysuria MUSCULOSKELETAL: generalized weakness NEUROLOGICAL:denies paresthesias HEMATOLOGICAL: denies easy bruising SKIN: +ostomy PSYCHIATRIC: +anxiety/depression All other review of systems found to be negative. PHYSICAL EXAMINATION: VITAL SIGNS: Please see below. GENERAL: Pleasant and cooperative. No acute distress. HEENT: PERRL. Extraocular movements intact. Clear conjunctiva CARDIOVASCULAR: Regular rate and rhythm. No murmurs, rubs, or gallops, + PM LUNGS: Clear to auscultation bilaterally. No wheezes. No rhonchi]. ABDOMEN: Soft, nontender, nondistended. Positive bowel sounds. +osotomy with soft formed stool output NEUROLOGICAL: Alert and oriented times three. Cranial nerves II through XII gr ossly intact. Sensation grossly intact EXTREMITIES: 5\5 strength bilateral upper extremities. 4+\5 strength right lower extremity. 4+/5 strength in left lower extremity. SKIN: nazario-stoma site c/d/i ASSESSMENT:66-year-old F with past medical history of multiple abdominal surgeries who presents status post Small bowel obstruction with debility PLAN: 1. Rehab- PT/OT advance mobility and ADLs, strengthen/stretch/maintain ROM all 4 limbs 2. Neuro- patient with intermittent episodes of encephalopathy possible due to fluctuating electrolyte abnormalities vs opioids, may have some degree of cognitive impairments -refer to neurology on d/c for formal cog eval -hx of stroke s/p right CEA cont secondary stroke prevention- ASA and statin 3. Cardaic- hx of Afib with PM cont eliquis, beta-reyes -HTN cont BP meds -HLD cont statin -abdominal aortic aneurysm- to be followed by PCP -medicine consulted to assist in overall management 4. Resp- monitor for infection, cont breathing treatments, singulair, and claritin for hx of COPD -s/p course of Levaquin for PNA-patient reporting new cough on 06-17-21 with repeat CXR negative, today reporting no cough, encourage incentive spirometry, cont guaifenesin 5. GI- s/p robotic assisted laparoscopic nazario-stomal hernia and ventral hernia repair with lysis of adhesions on 05-26-21 complicated by SBO, treated with NGT decompression- cont full liquid diet- to be advanced per surgery who has been consulted -ostomy care -on omeprazole for ppx 6. Pain- patient with chronic pain with history of chronic opioid use, Avoid/minimize opioids as this likely has been contributing patients episodes of ileus vs obstruction -cont gabapentin (will increase to 600 TID), tramadol d/c'd, cont tylenol prn 7. Psych- anxiety/depression with fibromyalgia cont Wellbutrin 8. - cont Detrol, monitor PVRs 9. DVT ppx- on eliquis 10. Dispo- TBD Allergies Coded Allergies: Penicillins (Verified Allergy, Severe, anaphylaxis, 05/18/21) pregabalin (Verified Allergy, Severe, ANAPHYLAXIS, 05/18/21) Cephalosporins (Verified Adverse Reaction, Severe, red man syndrome, 05/18/21) Vital Signs Vital Signs Date Time Temp Pulse Resp B/P (MAP) Pulse Ox O2 Delivery O2 Flow Rate FiO2 06/18/21 09:12 79 147/67 06/18/21 05:41 98.0 18 100 Room Air Current Medications Current Medications Current Medications Medications (Trade) Dose Ordered Sig/Nicolas Route PRN Reason Start Time Stop Time Status Last Admin Dose Admin Acetaminophen (Tylenol Tab) 650 mg Q4HP PRN PO fever/MILD PAIN (PS 1-4) 06/15/21 14:50 06/18/21 09:13 Albuterol/ Ipratropium (Combivent Respimat 100-20mcg) 1 puff RTID INH 06/15/21 20:00 06/18/21 06:41 Amlodipine Besylate (Norvasc) 5 mg DAILY PO 06/16/21 09:00 06/18/21 09:11 Apixaban (Eliquis) 5 mg BID PO 06/15/21 21:00 06/18/21 09:10 Aspirin (Ecotrin) 81 mg QHS PO 06/15/21 21:00 06/17/21 20:58 Bupropion HCl (Wellbutrin Xl) 150 mg DAILY PO 06/16/21 09:00 06/18/21 09:10 Carvedilol (COReg) 3.125 mg BID PO 06/15/21 21:00 06/18/21 09:12 Docusate Sodium (Colace) 100 mg BID PO 06/15/21 21:00 06/16/21 20:29 Duloxetine HCl (Cymbalta) 60 mg DAILY PO 06/16/21 09:00 06/18/21 09:10 Fluticasone Propionate (Flovent Hfa 110 Mcg) 2 puff BID INH 06/15/21 21:00 06/18/21 06:41 Folic Acid (Folic Acid) 1 mg DAILY PO 06/16/21 09:00 06/18/21 09:12 Gabapentin (Neurontin) 300 mg BID@0900,1800 PO 06/15/21 18:00 06/18/21 12:51 DC 06/18/21 09:12 Gabapentin (Neurontin) 600 mg QHS PO 06/15/21 21:00 06/18/21 12:51 DC 06/17/21 20:57 Gabapentin (Neurontin) 600 mg TID PO 06/18/21 16:00 UNV Guaifenesin (Robitussin Tab) 400 mg TID PO 06/17/21 16:00 06/18/21 09:10 Loratadine (Claritin) 10 mg DAILY PO 06/16/21 09:00 06/18/21 09:11 Montelukast Sodium (Singulair) 10 mg QHS PO 06/15/21 21:00 06/17/21 20:57 Ondansetron HCl (Zofran Odt) 4 mg Q6HP PRN PO NAUSEA OR VOMITING 06/15/21 14:50 Pantoprazole Sodium (Protonix) 40 mg DAILY PO 06/16/21 09:00 06/18/21 09:10 Potassium Chloride (Micro-K Extencaps) 20 meq DAILY PO 06/16/21 09:00 06/18/21 09:11 Rosuvastatin Calcium (Crestor) 10 mg QHS PO 06/15/21 21:00 06/17/21 20:57 Senna (Senokot) 1 tab QHS PO 06/15/21 21:00 06/16/21 20:29 Tolterodine Tartrate (Detrol La) 4 mg DAILY PO 06/16/21 09:00 06/18/21 09:10 Tramadol HCl (Ultram) 25 mg Q8HP PRN PO MODERATE PAIN (PS >7/10) 06/16/21 12:00 06/17/21 13:22 DC 06/17/21 09:54 EDIE TORRES MD Jun 18, 2021 13:15
[2021-06-18 14:09] VITALS: BP 135/63
[2021-06-18] MEDS: ONDANSETRON 4 MG ORAL DISINTEGRATING TAB PO PRN (19:35)
[2021-06-18 20:00] VITALS: BP 122/57
[2021-06-18] MEDS: ASPIRIN 81MG ENTERIC TABLET PO SCH (20:31)
[2021-06-18] MEDS: MONTELUKAST 10 MG TAB PO SCH (20:31)
[2021-06-18] MEDS: ROSUVASTATIN 10 MG TAB (CRESTOR) PO SCH (20:31)
[2021-06-18] MEDS: SENNA 8.6 MG TAB (SENOKOT) PO SCH (21:00)
[2021-06-19] MEDS: ONDANSETRON 4 MG ORAL DISINTEGRATING TAB PO PRN ×3 (02:45→19:23)
[2021-06-19 06:00] VITALS: BP 147/68
[2021-06-19] MEDS: guaiFENesin 200 MG TAB PO SCH ×3 (09:00→21:00)
[2021-06-19] MEDS: DOCUSATE SODIUM 100MG CAPSULE PO SCH ×2 (09:00→21:00)
[2021-06-19] MEDS: REMEDY PHYTOPLEX Z-GUARD PASTE 113GM TUBE (FROM STOREROOM PRODUCT) TOP SCH ×3 (09:00→21:00)
[2021-06-19] MEDS: POTASSIUM CHLORIDE 10MEQ SR TABLET PO SCH (09:06)
[2021-06-19] MEDS: TOLTERODINE TARTRATE 2 MG LA CAP (DETROL LA) PO SCH (09:06)
[2021-06-19] MEDS: buPROPion **XL** TABLET 150MG (WELLBUTRIN XL) PO SCH (09:06)
[2021-06-19] MEDS: ACETAMINOPHEN TAB 650MG DOSE (2X325MG) PO PRN (09:07)
[2021-06-19] MEDS: DULoxetine 30MG CAPSULE (CYMBALTA) PO SCH (09:08)
[2021-06-19] MEDS: APIXABAN 5 MG TAB (ELIQUIS) PO SCH ×2 (09:09→22:28)
[2021-06-19] MEDS: CARVedilol 3.125 MG TAB PO SCH ×2 (09:09→22:29)
[2021-06-19] MEDS: FOLIC ACID 1 MG TAB PO SCH (09:09)
[2021-06-19] MEDS: PANTOPRAZOLE 40MG TAB (PROTONIX) PO SCH (09:09)
[2021-06-19] MEDS: LORATADINE 10 MG TAB PO SCH (09:10)
[2021-06-19] MEDS: amLODIPine 5 MG TAB PO SCH (09:10)
[2021-06-19] MEDS: GABAPENTIN 300 MG CAP PO SCH ×3 (09:10→22:28)
[2021-06-19] MEDS: COMBIVENT RESPIMAT 100-20MCG INHALER 4GM INH SCH ×3 (10:08→20:00)
--- NOTE | 2021-06-19 10:21 | IPNPDOC ---
PM&R Progress Note DATE OF SERVICE: Jun 19, 2021 Horticulture Superintendent Progress Note Subjective: Patient stating she felt a little nauseous today and vomited, but otherwise has good energy ans is able to participate well in therapy. Denies fevers, abdominal pain or chills. She admitted to feeling gassy, REVIEW OF SYSTEMS: The following is a completed review of systems and has been reviewed. Review of systems otherwise unremarkable. PAIN: Patient self reports incisional site pain EYES: No recent vision changes EARS, NOSE, & THROAT: No throat pain, or dysphagia, or rhinorrhea CARDIOVASCULAR: Denies chest pain or palpitations PULMONARY: Denies shortness of breath GASTROINTESTINAL: Denies constipation/diarrhea, +ostomy GENITOURINARY: denies dysuria MUSCULOSKELETAL: generalized weakness NEUROLOGICAL:denies paresthesias HEMATOLOGICAL: denies easy bruising SKIN: +ostomy PSYCHIATRIC: +anxiety/depression All other review of systems found to be negative. PHYSICAL EXAMINATION: VITAL SIGNS: Please see below. GENERAL: Pleasant and cooperative. No acute distress. HEENT: PERRL. Extraocular movements intact. Clear conjunctiva CARDIOVASCULAR: Regular rate and rhythm. No murmurs, rubs, or gallops, + PM LUNGS: Clear to auscultation bilaterally. No wheezes. No rhonchi]. ABDOMEN: Soft, nontender, nondistended. Positive bowel sounds. +osotomy with soft formed stool output and bubbles NEUROLOGICAL: Alert and oriented times three. Cranial nerves II through XII grossly intact. Sensation grossly intact EXTREMITIES: 5\5 strength bilateral upper extremities. 4+\5 strength right lower extremity. 4+/5 strength in left lower extremity. SKIN: nazario-stoma site c/d/i ASSESSMENT:66-year-old F with past medical history of multiple abdominal surgeries who presents status post Small bowel obstruction with debility PLAN: 1. Rehab- PT/OT advance mobility and ADLs, strengthen/stretch/maintain ROM all 4 limbs 2. Neuro- patient with intermittent episodes of encephalopathy possible due to fluctuating electrolyte abnormalities vs opioids, may have some degree of cognitive impairments -refer to neurology on d/c for formal cog eval -hx of stroke s/p right CEA cont secondary stroke prevention- ASA and statin 3. Cardaic- hx of Afib with PM cont eliquis, beta-reyes -HTN cont BP meds -HLD cont statin -abdominal aortic aneurysm- to be followed by PCP -medicine consulted to assist in overall management 4. Resp- monitor for infection, cont breathing treatments, singulair, and claritin for hx of COPD -s/p course of Levaquin for PNA-patient reporting new cough on 06-17-21 with repeat CXR negative, today reporting no cough, encourage incentive spirometry, cont guaifenesin 5. GI- s/p robotic assisted laparoscopic nazario-stomal hernia and ventral hernia repair with lysis of adhesions on 05-26-21 complicated by SBO, treated with NGT decompression- cont full liquid diet- to be advanced per surgery who has been consulted -ostomy care -on omeprazole for ppx -will add simethicone for brijesh, cont zofran prn 6. Pain- patient with chronic pain with history of chronic opioid use, Avoid/minimize opioids as this likely has been contributing patients episodes of ileus vs obstruction -cont gabapentin (will increase to 600 TID), tramadol d/c'd, cont tylenol prn 7. Psych- anxiety/depression with fibromyalgia cont Wellbutrin 8. - cont Detrol, monitor PVRs 9. DVT ppx- on eliquis 10. Dispo- 06/24/21 Allergies Coded Allergies: Penicillins (Verified Allergy, Severe, anaphylaxis, 05/18/21) pregabalin (Verified Allergy, Severe, ANAPHYLAXIS, 05/18/21) Cephalosporins (Verified Adverse Reaction, Severe, red man syndrome, 05/18/21) Vital Signs Vital Signs Date Time Temp Pulse Resp B/P (MAP) Pulse Ox O2 Delivery O2 Flow Rate FiO2 06/19/21 09:10 76 147/68 06/19/21 06:00 96.9 17 98 Room Air Current Medications Current Medications Current Medications Medications (Trade) Dose Ordered Sig/Nicolas Route PRN Reason Start Time Stop Time Status Last Admin Dose Admin Acetaminophen (Tylenol Tab) 650 mg Q4HP PRN PO fever/MILD PAIN (PS 1-4) 06/15/21 14:50 06/19/21 09:07 Albuterol/ Ipratropium (Combivent Respimat 100-20mcg) 1 puff RTID INH 06/15/21 20:00 06/18/21 19:55 Amlodipine Besylate (Norvasc) 5 mg DAILY PO 06/16/21 09:00 06/19/21 09:10 Apixaban (Eliquis) 5 mg BID PO 06/15/21 21:00 06/19/21 09:09 Aspirin (Ecotrin) 81 mg QHS PO 06/15/21 21:00 06/18/21 20:31 Bupropion HCl (Wellbutrin Xl) 150 mg DAILY PO 06/16/21 09:00 06/19/21 09:06 Carvedilol (COReg) 3.125 mg BID PO 06/15/21 21:00 06/19/21 09:09 Docusate Sodium (Colace) 100 mg BID PO 06/15/21 21:00 06/16/21 20:29 Duloxetine HCl (Cymbalta) 60 mg DAILY PO 06/16/21 09:00 06/19/21 09:08 Fluticasone Propionate (Flovent Hfa 110 Mcg) 2 puff BID INH 06/15/21 21:00 06/18/21 06:41 Folic Acid (Folic Acid) 1 mg DAILY PO 06/16/21 09:00 06/19/21 09:09 Gabapentin (Neurontin) 300 mg BID@0900,1800 PO 06/15/21 18:00 06/18/21 12:51 DC 06/18/21 09:12 Gabapentin (Neurontin) 600 mg QHS PO 06/15/21 21:00 06/18/21 12:51 DC 06/17/21 20:57 Gabapentin (Neurontin) 600 mg TID@0900,1800,2100 PO 06/18/21 18:00 06/19/21 09:10 Guaifenesin (Robitussin Tab) 400 mg TID PO 06/17/21 16:00 06/18/21 20:28 Loratadine (Claritin) 10 mg DAILY PO 06/16/21 09:00 06/19/21 09:10 Montelukast Sodium (Singulair) 10 mg QHS PO 06/15/21 21:00 06/18/21 20:31 Ondansetron HCl (Zofran Odt) 4 mg Q6HP PRN PO NAUSEA OR VOMITING 06/15/21 14:50 06/19/21 02:45 Pantoprazole Sodium (Protonix) 40 mg DAILY PO 06/16/21 09:00 06/19/21 09:09 Potassium Chloride (Micro-K Extencaps) 20 meq DAILY PO 06/16/21 09:00 06/19/21 09:06 Rosuvastatin Calcium (Crestor) 10 mg QHS PO 06/15/21 21:00 06/18/21 20:31 Senna (Senokot) 1 tab QHS PO 06/15/21 21:00 06/16/21 20:29 Tolterodine Tartrate (Detrol La) 4 mg DAILY PO 06/16/21 09:00 06/19/21 09:06 Tramadol HCl (Ultram) 25 mg Q8HP PRN PO MODERATE PAIN (PS >7/10) 06/16/21 12:00 06/17/21 13:22 DC 06/17/21 09:54 EDIE TORRES MD Jun 19, 2021 10:21
[2021-06-19 11:34] LABS: BASO # 0.1 10^3/uL (0.0-0.2); BASO % 0.8 % (0.0-1.0); EOS # 0.6 10^3/uL (0.0-0.5); EOS % 6.3 % (0.0-3.0); HEMATOCRIT 40.3 % (36.0-47.0); HEMOGLOBIN 12.5 g/dl (12.0-15.5); LYMPH # 1.7 10^3/uL (1.5-5.0); LYMPH % 18.3 % (24.0-44.0); MEAN CORPUSCULAR HEMOGLOBIN 29.3 pg (27.0-33.0); MEAN CORPUSCULAR VOLUME 94.4 fl (80.0-96.0); MONO # 0.8 10^3/uL (0.0-0.8); MONO % 8.1 % (2.0-8.0); NEUTROPHILS # 6.3 10^3/uL (1.5-8.5); NEUTROPHILS % 66.1 % (36.0-66.0); PLATELET COUNT, AUTOMATED 297 10^3/uL (150-450); RED BLOOD COUNT 4.27 10^6/uL (4.00-5.40); WHITE BLOOD COUNT 9.5 10^3/uL (4.0-10.0)
[2021-06-19 12:05] LABS: BLOOD UREA NITROGEN 8 MG/DL (7-18); CALCIUM LEVEL 9.4 MG/DL (8.8-10.2); CARBON DIOXIDE LEVEL 26 MEQ/L (21-32); CHLORIDE LEVEL 108 MEQ/L (98-107); CREATININE FOR GFR 0.98 MG/DL (0.55-1.30); GLOMERULAR FILTRATION RATE > 60.0 (>45); GLUCOSE, FASTING 97 MG/DL (70-100); POTASSIUM SERUM 4.6 MEQ/L (3.5-5.1); SODIUM LEVEL 138 MEQ/L (136-145)
[2021-06-19] MEDS: FLUTICASONE HFA 110 MCG 12 GM INHALER (FLOVENT) INH SCH ×2 (13:42→21:00)
[2021-06-19 14:00] VITALS: BP 128/70
[2021-06-19] MEDS: SIMETHICONE 80MG CHEW TAB PO SCH (16:55)
--- NOTE | 2021-06-19 17:49 | IPN ---
PROGRESS NOTE DATE: 06/19/2021 HISTORY: Patient was transferred to acute rehabilitation on June 15, 2021 after her bowel obstruction had resolved. I have left her on a full liquid diet to ensure that her obstruction has completely resolved. She reports no problems at this point. She denies any nausea or vomiting and reports that her ileostomy is functioning well. Vital signs show that she has been afebrile over the past 24 hours. Her pulse is in the 70s. Blood pressure is good and her room air oxygen saturation is normal. Intake and output shows that yesterday she had 680 recorded in with 3 voids and some stool. PHYSICAL EXAMINATION: GENERAL: Patient is lying quietly in the hospital bed. She appears quite comfortable. SKIN: Warm and dry. ABDOMEN: Flat. She has active bowel sounds. The abdomen is soft and nontender. The ostomy appears healthy with some stool in the bag. LABORATORY STUDIES: From June 19, 2021 show a white count of 10, hemoglobin 12, hematocrit 40 and a platelet count of 297,000. Differential count showed 66% neutrophils, 18% lymphocytes, 8% monocytes and 6% eosinophils. Chemistry profile showed sodium 138, potassium 4.6, chloride 108, CO2 26, BUN 8, creatinine 1 and a glucose of 97. IMPRESSION: Patient appears to be doing well and has tolerated her full liquids. RECOMMENDATIONS: At this point, I think it would be reasonable to advance the patient to a soft diet. I counseled her against particularly tough or stringy foods like bamboo shoots, green beans, cabbage, or other raw fruits or vegetables. She should chew her foods well. We will see how she does with her soft diet. ED
[2021-06-19 20:00] VITALS: BP 146/85
[2021-06-19] MEDS ORDERED: traZODone 25MG PER 1/2 TABLET PO PRN (20:45)
[2021-06-19] MEDS: SENNA 8.6 MG TAB (SENOKOT) PO SCH (21:00)
[2021-06-19] MEDS: PROCHLORPERAZINE 5 MG TAB (S0183) PO PRN (21:44)
[2021-06-19] MEDS: ASPIRIN 81MG ENTERIC TABLET PO SCH (22:28)
[2021-06-19] MEDS: ROSUVASTATIN 10 MG TAB (CRESTOR) PO SCH (22:28)
[2021-06-19] MEDS: MONTELUKAST 10 MG TAB PO SCH (22:28)
[2021-06-19] MEDS: traZODone 25MG PER 1/2 TABLET PO SCH (22:34)
[2021-06-20 06:00] VITALS: BP 111/64
[2021-06-20] MEDS: DOCUSATE SODIUM 100MG CAPSULE PO SCH ×2 (07:19→20:46)
[2021-06-20] MEDS: TOLTERODINE TARTRATE 2 MG LA CAP (DETROL LA) PO SCH (07:29)
[2021-06-20] MEDS: amLODIPine 5 MG TAB PO SCH (07:29)
[2021-06-20] MEDS: ACETAMINOPHEN TAB 650MG DOSE (2X325MG) PO PRN (07:29)
[2021-06-20] MEDS: PANTOPRAZOLE 40MG TAB (PROTONIX) PO SCH (07:29)
[2021-06-20] MEDS: SIMETHICONE 80MG CHEW TAB PO SCH ×2 (07:30→13:28)
[2021-06-20] MEDS: buPROPion **XL** TABLET 150MG (WELLBUTRIN XL) PO SCH (07:30)
[2021-06-20] MEDS: POTASSIUM CHLORIDE 10MEQ SR TABLET PO SCH (07:30)
[2021-06-20] MEDS: APIXABAN 5 MG TAB (ELIQUIS) PO SCH ×2 (07:30→20:37)
[2021-06-20] MEDS: LORATADINE 10 MG TAB PO SCH (07:30)
[2021-06-20] MEDS: FOLIC ACID 1 MG TAB PO SCH (07:30)
[2021-06-20] MEDS: GABAPENTIN 300 MG CAP PO SCH ×3 (07:31→20:38)
[2021-06-20] MEDS: DULoxetine 30MG CAPSULE (CYMBALTA) PO SCH (07:31)
[2021-06-20] MEDS: CARVedilol 3.125 MG TAB PO SCH ×2 (07:31→20:38)
[2021-06-20] MEDS: REMEDY PHYTOPLEX Z-GUARD PASTE 113GM TUBE (FROM STOREROOM PRODUCT) TOP SCH ×3 (07:31→20:40)
[2021-06-20] MEDS: guaiFENesin 200 MG TAB PO SCH ×3 (07:32→20:46)
[2021-06-20] MEDS: FLUTICASONE HFA 110 MCG 12 GM INHALER (FLOVENT) INH SCH ×2 (07:50→21:00)
[2021-06-20] MEDS: COMBIVENT RESPIMAT 100-20MCG INHALER 4GM INH SCH ×3 (07:50→20:00)
[2021-06-20] MEDS: ONDANSETRON 4 MG ORAL DISINTEGRATING TAB PO PRN ×2 (12:22→20:38)
[2021-06-20 14:00] VITALS: BP 117/56
[2021-06-20 20:00] VITALS: BP 115/77
[2021-06-20] MEDS: MONTELUKAST 10 MG TAB PO SCH (20:37)
[2021-06-20] MEDS: traZODone 25MG PER 1/2 TABLET PO SCH (20:38)
[2021-06-20] MEDS: ROSUVASTATIN 10 MG TAB (CRESTOR) PO SCH (20:38)
[2021-06-20] MEDS: ASPIRIN 81MG ENTERIC TABLET PO SCH (20:40)
[2021-06-20] MEDS: SENNA 8.6 MG TAB (SENOKOT) PO SCH (20:46)
[2021-06-21 06:00] VITALS: BP 131/63
[2021-06-21] MEDS: CARVedilol 3.125 MG TAB PO SCH ×2 (07:33→20:45)
[2021-06-21] MEDS: TOLTERODINE TARTRATE 2 MG LA CAP (DETROL LA) PO SCH (07:33)
[2021-06-21] MEDS: DULoxetine 30MG CAPSULE (CYMBALTA) PO SCH (07:33)
[2021-06-21] MEDS: SIMETHICONE 80MG CHEW TAB PO SCH ×2 (07:33→13:27)
[2021-06-21] MEDS: APIXABAN 5 MG TAB (ELIQUIS) PO SCH ×2 (07:33→20:44)
[2021-06-21] MEDS: FOLIC ACID 1 MG TAB PO SCH (07:33)
[2021-06-21] MEDS: LORATADINE 10 MG TAB PO SCH (07:34)
[2021-06-21] MEDS: buPROPion **XL** TABLET 150MG (WELLBUTRIN XL) PO SCH (07:34)
[2021-06-21] MEDS: PANTOPRAZOLE 40MG TAB (PROTONIX) PO SCH (07:34)
[2021-06-21] MEDS: POTASSIUM CHLORIDE 10MEQ SR TABLET PO SCH (07:34)
[2021-06-21] MEDS: ONDANSETRON 4 MG ORAL DISINTEGRATING TAB PO PRN ×3 (07:34→22:07)
[2021-06-21] MEDS: amLODIPine 5 MG TAB PO SCH (07:34)
[2021-06-21] MEDS: GABAPENTIN 300 MG CAP PO SCH ×3 (07:34→20:43)
[2021-06-21] MEDS: DOCUSATE SODIUM 100MG CAPSULE PO SCH ×2 (07:35→20:44)
[2021-06-21] MEDS: guaiFENesin 200 MG TAB PO SCH ×3 (07:35→20:43)
[2021-06-21] MEDS: REMEDY PHYTOPLEX Z-GUARD PASTE 113GM TUBE (FROM STOREROOM PRODUCT) TOP SCH ×3 (07:39→21:00)
[2021-06-21] MEDS: FLUTICASONE HFA 110 MCG 12 GM INHALER (FLOVENT) INH SCH ×2 (07:41→20:55)
[2021-06-21] MEDS: COMBIVENT RESPIMAT 100-20MCG INHALER 4GM INH SCH ×3 (07:41→20:00)
[2021-06-21] MEDS: ACETAMINOPHEN TAB 650MG DOSE (2X325MG) PO PRN ×3 (11:19→22:50)
[2021-06-21 14:00] VITALS: BP 128/72
[2021-06-21] MEDS: PROCHLORPERAZINE 5 MG TAB (S0183) PO PRN (20:43)
[2021-06-21] MEDS: ROSUVASTATIN 10 MG TAB (CRESTOR) PO SCH (20:44)
[2021-06-21] MEDS: ASPIRIN 81MG ENTERIC TABLET PO SCH (20:44)
[2021-06-21] MEDS: MONTELUKAST 10 MG TAB PO SCH (20:44)
[2021-06-21] MEDS: SENNA 8.6 MG TAB (SENOKOT) PO SCH (20:44)
[2021-06-21] MEDS: traZODone 25MG PER 1/2 TABLET PO SCH (20:44)
[2021-06-21 22:25] VITALS: BP 139/63
[2021-06-21] MEDS ORDERED: ONDANSETRON 4 MG TAB PO ONE (22:45)
[2021-06-21] MEDS ORDERED: PROMETHAZINE 25 MG TAB PO ONE (23:40)
[2021-06-22] MEDS ORDERED: SCOPOLAMINE 1MG TRANSDERMAL PATCH TOP ONE (02:40)
[2021-06-22] MEDS: PROCHLORPERAZINE 5 MG TAB (S0183) PO PRN (02:58)
[2021-06-22 06:15] VITALS: BP 134/76
[2021-06-22] MEDS: COMBIVENT RESPIMAT 100-20MCG INHALER 4GM INH SCH ×3 (08:00→20:00)
[2021-06-22] MEDS: ONDANSETRON 4 MG ORAL DISINTEGRATING TAB PO PRN (08:08)
--- NOTE | 2021-06-22 08:23 | REP ---
INDICATION: recent sbo, persistent nausea. COMPARISON: KUB, 06/10/2021. TECHNIQUE: Portable supine image of the abdomen was obtained. FINDINGS: There is decreased bowel gas consistent with enterocolitis or ileus. There is an ostomy in the right lower quadrant. The patient is status post total colectomy by history. There is no evidence of free intraperitoneal air. There are cholecystectomy clips in the right upper quadrant. There are no significant bony abnormalities. IMPRESSION: Enteritis or ileus. Bowel obstruction less likely. <Electronically signed by James Garcia > 06/22/21 [id number]
[2021-06-22 08:42] LABS: BASO # 0.1 10^3/uL (0.0-0.2); BASO % 0.5 % (0.0-1.0); EOS # 0.1 10^3/uL (0.0-0.5); EOS % 0.9 % (0.0-3.0); HEMATOCRIT 43.1 % (36.0-47.0); HEMOGLOBIN 14.2 g/dl (12.0-15.5); LYMPH # 1.7 10^3/uL (1.5-5.0); LYMPH % 11.1 % (24.0-44.0); MEAN CORPUSCULAR HEMOGLOBIN 29.5 pg (27.0-33.0); MEAN CORPUSCULAR HGB CONC 32.9 g/dl (32.0-36.5); MEAN CORPUSCULAR VOLUME 89.4 fl (80.0-96.0); MONO % 6.3 % (2.0-8.0); NEUTROPHILS # 12.4 10^3/uL (1.5-8.5); NEUTROPHILS % 80.8 % (36.0-66.0); PLATELET COUNT, AUTOMATED 343 10^3/uL (150-450); RED BLOOD COUNT 4.82 10^6/uL (4.00-5.40); WHITE BLOOD COUNT 15.3 10^3/uL (4.0-10.0)
[2021-06-22] MEDS: FLUTICASONE HFA 110 MCG 12 GM INHALER (FLOVENT) INH SCH (09:00)
[2021-06-22] MEDS ORDERED: LR 1,000 ML IV SCH (09:05)
[2021-06-22] MEDS ORDERED: ACETAMINOPHEN 650 MG SUPP PR PRN ×2 (09:10→09:45)
[2021-06-22 09:11] LABS: CALCIUM LEVEL 10.4 MG/DL (8.8-10.2); CREATININE FOR GFR 1.21 MG/DL (0.55-1.30); GLOMERULAR FILTRATION RATE 47.1 (>45)
[2021-06-22] MEDS ORDERED: ISOVUE-370 76% 100ML VIAL As Ordered ONE (09:56)
[2021-06-22] MEDS: SIMETHICONE 80MG CHEW TAB PO SCH ×2 (10:49→14:00)
[2021-06-22] MEDS: LORATADINE 10 MG TAB PO SCH (10:49)
[2021-06-22] MEDS: POTASSIUM CHLORIDE 10MEQ SR TABLET PO SCH (10:50)
[2021-06-22] MEDS: DULoxetine 30MG CAPSULE (CYMBALTA) PO SCH (10:50)
[2021-06-22] MEDS: DOCUSATE SODIUM 100MG CAPSULE PO SCH ×2 (10:50→21:52)
[2021-06-22] MEDS: TOLTERODINE TARTRATE 2 MG LA CAP (DETROL LA) PO SCH (10:50)
[2021-06-22] MEDS: FOLIC ACID 1 MG TAB PO SCH (10:50)
[2021-06-22] MEDS: CARVedilol 3.125 MG TAB PO SCH ×2 (10:50→21:44)
[2021-06-22] MEDS: buPROPion **XL** TABLET 150MG (WELLBUTRIN XL) PO SCH (10:51)
[2021-06-22] MEDS: guaiFENesin 200 MG TAB PO SCH ×3 (10:51→21:43)
[2021-06-22] MEDS: amLODIPine 5 MG TAB PO SCH (10:51)
[2021-06-22] MEDS: PANTOPRAZOLE 40MG TAB (PROTONIX) PO SCH (10:51)
[2021-06-22] MEDS: GABAPENTIN 300 MG CAP PO SCH ×3 (10:51→21:43)
[2021-06-22] MEDS: REMEDY PHYTOPLEX Z-GUARD PASTE 113GM TUBE (FROM STOREROOM PRODUCT) TOP SCH ×3 (10:52→21:00)
--- NOTE | 2021-06-22 11:02 | REP ---
INDICATION: sbo. COMPARISON: Multiple the latest 06/07/2021 also after intravenous contrast TECHNIQUE: Standard helical technique after the intravenous administration of 100 cc Isovue 370 FINDINGS: The lung bases have improved since the latest prior exam. The previously present patchy opacities have nearly completely resolved. There are no pleural or pericardial effusions. Since the last examination a nasogastric tube has been passed the tip of the tube is in the stomach fundal region. The stomach is somewhat gas and fluid filled/mildly distended. The duodenal sweep across the midline is again seen to be collapsed. The fluid collection seen previously at the enterostomy site has decreased previously measuring approximately 6 cm today measuring approximately 2.8 cm. The loop of bowel along the right side of the fluid collection is again seen to be narrowed and having an unchanged appearance. The remainder of the imaged bowel loops are unremarkable. There is an unchanged 3.1 cm sized infrarenal abdominal aortic aneurysm. The adrenal glands, kidneys, and pancreas are unchanged. The liver and spleen are unchanged. There is intrahepatic ductal dilatation secondary to the patient's post cholecystectomy state status quo. No free fluid or free air has developed. There is no significant change in appearance of the osseous structures. There is an unchanged grade 4 appearing T12 compression fracture. IMPRESSION: 1. Improved lung bases. 2. Distention of the stomach and 1st 3 parts of the duodenum representing a change from the prior exam. There is a nasogastric tube in place as described above. 3. Collapsed and unchanged appearing duodenal sweep across the midline. Stricture cannot be ruled out. 4. Improved parastomal fluid collection with persistently collapsed bowel at the enterostomy site as described above. 5. Unchanged infrarenal abdominal aortic aneurysm. 6. Fluid-filled esophagus. 7. Other findings as described above. <Electronically signed by Sam Marcano > 06/22/21 [id number]
[2021-06-22] MEDS: LIDOCAINE 5% (LIDODERM) PATCH TD SCH (12:20)
[2021-06-22 14:00] VITALS: BP 139/72
--- NOTE | 2021-06-22 15:18 | IPNPDOC ---
Text Note Date of Service The patient was seen on 06/22/21. NOTE Patient was seen and examined at the bedside. Has been having a lot of vomiting which is bilious in nature and for that reason the patient has an NG tube in place and has drawn around 1200 cc since morning. The patient on my encounter was comfortable after the NG tube with no abdominal distention and completely benign abdomen. Objective: General: Lying in bed, no acute distress, comfortable, AAOx3, NG tube in place HEENT: NC, AT CVS: +S1S2 Lungs: Fair air entry b/l, -w/r/r Abdomen: Soft, ND, NT, +ostomy w/ dark brown semisolid stool present Extremities: - Edema, - Calf tenderness Imaging reviewed. Assessment and plan: Patient is a 66-year-old female with a PMHx of Ischemic bowel / Recurrent SBO s/p Ileostomy, who presented to the emergency room with complaints of abdominal pain. Patient was found to have small bowel structure on 06/07 and was admitted to the surgical service. Patient was transitioned to acute rehabilitation on 06/15. Hospital services been consulted for medical comanagement. 1. abdominal pain secondary to SBO: The patient has had a history of recurrent small bowel obstruction because of an ischemic bowel where she required an ileostomy. The patient has had a recent hernia repair and presented to the hospital this time because of abdominal pain and was found to have small bowel obstruction. The patient initially had NG tube in place but the patient improved on her own and currently again is having the issues with possible obstruction. The CT scan of the abdomen pelvis was done which shows that the patient has distention in the first third of duodenum and stomach and there is complete collapse of the duodenal sleeve. I spoke with Dr. Varela in the surgery regarding the patient and as per her she has contacted Dr. Quesada. I also had a detailed discussion with him and apparently the only recommendation is decompression and Dr. Carter from GI is aware of the case and will follow up. Currently the patient will be kept n.p.o. IV fluids with LR at 75 cc will be continued and the NG tube decompression with low intermittent suction will be continued as well. 2. S/p Hypokalemia. Would continue to monitor and replace. 3. S/p Acute metabolic encephalopathy -now improved and the patient is at her baseline. Possibly 2/2 delirium 2/2 acute illness / hospitalization . Currently oriented to person/place/time. We will continue to monitor. 4. HTN. c/w Amlodipine / Carvedilol. She is n.p.o. except meds 5. Chronic COPD. At baseline no evidence of exacerbation. 6. Paroxysmal atrial fibrillation. c/w Carvedilol. Eliquis on hold in case she would require any surgery. 7. CXR w/ left lower lobe airspace disease: Complete 7-day course of Levaquin. GI prophylaxis Disposition unknown at this time. VS,Fishbone, I+O VS, Fishbone, I+O Laboratory Tests 06/22/21 08:18 Vital Signs Date Time Temp Pulse Resp B/P (MAP) Pulse Ox O2 Delivery O2 Flow Rate FiO2 06/22/21 06:15 98.0 94 18 134/76 (95) 93 Room Air I&O- Last 24 Hours up to 6 AM 06/22/21 05:59 Intake Total 1080 ml Output Total 300 ml Balance 780 ml MARIPOSA CARRION MD Jun 22, 2021 15:18
--- NOTE | 2021-06-22 15:34 | IPNPDOC ---
PM&R Progress Note DATE OF SERVICE: Jun 22, 2021 Lease Picker Progress Note DATE OF ADMISSION: Jun 15, 2021 at 15:45 INPATIENT REHABILITATION ADMISSION DAY: #7 SUBJECTIVE: This is a 66 year old female with PMH of previous opioid dependent chronic intractable pain status post anterior C4-C6 plate and screw fusion, T12 compression fracture and history of incidental finding of AAA. She is status p ost Posterior discectomy and placement of disc spacers,episode of bowel ischemia leading to small bowel obstruction requiring surgical intervention and placement of ileostomy approximately a year ago, who was admitted for debility status post laparoscopic lysis of adhesions, drainage of fluid collection around the ostomy and alleviation of recurrent obstruction. Pain management has been challenging as a recommendation was to avoid potential further aggravation of the chronic ileus use of opioids. Patient was noted to have escalating nausea, vomiting, any food or liquid was placed nothing by mouth overnight, given Zofran, however, continues to have severe vomiting. Leukocytosis 15.3 aAlso noted. Patient remains afebrile, heart rate slightly up in high 90s, output from ileostomy was noted to be scant compared to usual per the , apparently diet slowly progressed over weekend. Soft half sandwich, very small amount of intake attempted.. Today,patient was continued nothing by mouth, placed on IV fluids, blood and urine cultures obtained and put on therapy hold. I discussed the case briefly with Dr. Johnson who graciously responded from his break advised follow-up should proceed with the covering surgeon.. We proceeded with CT of the abdomen/pelvis and placement of an NGT, which drained large amounts of bilious fluid. Patient had some relief with decompression, Tylenol suppository, however, continues to have significant abdominal pain and unable to participate in therapy at this time. REVIEW OF SYSTEMS: The following is a completed review of systems and has been reviewed. Review of systems otherwise unremarkable. PAIN: Patient notes general abdominal discomfort and mid and low back pain 5- 9/10 EYES: No recent vision changes EARS, NOSE, & THROAT: No throat pain, or dysphagia, or rhinorrhea CARDIOVASCULAR: Denies chest pain or palpitations PULMONARY: Denies shortness of breath GASTROINTESTINAL: Notes decreased output via ostomy, general cramping and pain, severe nausea and intractable vomiting GENITOURINARY: denies dysuria MUSCULOSKELETAL: generalized weakness NEUROLOGICAL:denies paresthesias HEMATOLOGICAL: admits easy bruising SKIN: +ostomy PSYCHIATRIC: +anxiety/depression All other review of systems found to be negative. PHYSICAL EXAMINATION: VITAL SIGNS: Please see below. GENERAL: Moderate distress, observed to vomit bilious vomitus several times throughout the morning and also draining from the NGT. HEENT: PERRL. Extraocular movements intact. Clear conjunctiva CARDIOVASCULAR: Regular rate and rhythm. II/ SM LUNGS: Clear to auscultation bilaterally. No wheezes. No rhonchi]. ABDOMEN: Soft, nontender, nondistended. Positive bowel sounds. +osotomy with small amount of soft formed brown stool output NEUROLOGICAL: Alert and oriented times three. Cranial nerves II through XII grossly intact. Sensation grossly intact EXTREMITIES: 5\5 strength bilateral upper extremities. 4+\5 strength right lower extremity. 4+/5 strength in left lower extremity. No peripheral edema SKIN: nazario-stoma site ASSESSMENT: -Abdominal pain status post laparoscopic peristomal hernia and ventral hernia repair with revision of ileostomy and lysis of adhesions 05/26/[address] Johnson -Status post small bowel obstruction with leukocytosis, left slight abnormalities, RVR, requiring IV beta blockade. -Intractable vomiting -Status posts episode of hospital-acquired delirium -Recurrent Leukocytosis. -Hypercalcemia. -Hypoalbuminemia. -T12 compression fracture. -Abdominal aortic aneurysm. - Sick Sinus syndrome. -Essential tremor. -COPD -Anxiety with depression. -Hypertension. -Fibromyalgia -PMH CVA s/p R CEA This is a debilitated 66-year-old Female with past medical history of multiple abdominal surgeries who presents status post Small bowel obstruction with debility, cervical and abdominal pain, intractable vomiting and generalized weakness with poor activity tolerance. Workup thus far today noted for CT Abdomen Pelvis: Since the last examination a nasogastric tube has been passed the tip of the tube is in the stomach fundal region. The stomach is somewhat gas and fluid filled/mildly distended. The duodenal sweep across the midline is again seen to be collapsed. The fluid collection seen previously at the enterostomy site has decreased previously measuring approximately 6 cm today measuring approximately 2.8 cm. The loop of bowel along the right side of the fluid collection is again seen to be narrowed and having an unchanged appearance. The remainder of the imaged bowel loops are unremarkable. There is an unchanged 3.1 cm sized infrarenal abdominal aortic aneurysm. The adrenal glands, kidneys, and pancreas are unchanged. The liver and spleen are unchanged. There is intrahepatic ductal dilatation secondary to the patient's post cholecystectomy state status quo. No free fluid or free air has developed. There is no significant change in appearance of the osseous structures. There is an unchanged grade 4 appearing T12 compression fracture. 1. Improved lung bases. 2. Distention of the stomach and 1st 3 parts of the duodenum representing a change from the prior exam. There is a nasogastric tube in place as described above. 3. Collapsed and unchanged appearing duodenal sweep across the midline. Stricture cannot be ruled out. 4. Improved parastomal fluid collection with persistently collapsed bowel at the enterostomy site as described above. 5. Unchanged infrarenal abdominal aortic aneurysm. 6. Fluid-filled esophagus. PLAN: 1. Rehab- PT/OT advance mobility and ADLs, strengthen/stretch/maintain ROM all 4 limbs 2. Neuro- patient with intermittent episodes of encephalopathy possible due to fluctuating electrolyte abnormalities vs infectious or polypharmacy side effects, may have some degree of cognitive impairments -refer to neurology on d/c for formal cog eval -hx of stroke s/p right CEA cont secondary stroke prevention- ASA and statin 3. Cardaic- hx of Afib with PM held eliquis possible pre-op, will discuss with IM on best plan, beta-reyes -HTN cont BP meds -HLD cont statin -abdominal aortic aneurysm- to be followed by PCP -medicine consulted to assist in overall management 4. Resp- monitor for infection, cont breathing treatments, singulair, and claritin for hx of COPD -s/p course of Levaquin for PNA-patient reporting new cough on 06-17-21 with interim repeat CXR negative, CT today lungs clear, clinical exam lungs clear, reporting no cough, encourage incentive spirometry, cont guaifenesin 5. GI- s/p robotic assisted laparoscopic nazario-stomal hernia and ventral hernia repair with lysis of adhesions on 05-26-21 complicated by SBO, treated with NGT decompression- not tolerating trial of progression to soft diet from full liquid diet- placed back NPO, has had Zofran wafers, scopolamine patch and Cymetra: and added IV Reglan per surgery and she is to be advanced per surgery who has been consulted -ostomy care -on omeprazole for ppx - added simethicone for gas, cont zofran prn 6. Pain- patient with chronic pain with history of chronic opioid use, recommendation noted to avoid/minimize opioids as possibly contributing to patients episodes of ileus vs obstruction -cont gabapentin (was increased to 600 TID), tramadol d/c'd, but might need to resume, trial of , tylenol suppository for pain, if insufficient, IV Tylenol could be helpful given limited options. 7. Psych- anxiety/depression with fibromyalgia cont Wellbutrin, Coreg, trazodone, Cymbalta, may need adjustment in this polypharmacy to help alleviate the nausea and vomiting episodes 8. - cont Detrol, monitor PVRs 9. DVT ppx- on eliquis ALLERGIES: See Below MEDICATIONS: Reviewed, see below. FUNCTIONAL STATUS: Modified independent with supine to sit, rolling, standby assistance to stand, bed to chair, toilet commode, shower tub transfers. Ambulating with 4 wheeled walker, bathing and dressing upper body with standby assistance. LABORATORY DATA: Reviewed. Please see below. MICROBIOLOGY: See below DISPOSITION Home with TIME SPENT: Chart Review, examination and documentation 60 minutes. Allergies Coded Allergies: Penicillins (Verified Allergy, Severe, anaphylaxis, 05/18/21) pregabalin (Verified Allergy, Severe, ANAPHYLAXIS, 05/18/21) Cephalosporins (Verified Adverse Reaction, Severe, red man syndrome, 05/18/21) Vital Signs Vital Signs Date Time Temp Pulse Resp B/P (MAP) Pulse Ox O2 Delivery O2 Flow Rate FiO2 06/22/21 14:00 98.4 97 18 139/72 (94) 97 Room Air Laboratory Data CBC/BMP Laboratory Tests 06/22/21 08:18 Labs 24H Laboratory Tests 2 06/22/21 08:18: Immature Granulocyte % (Auto) 0.4, Neutrophils (%) (Auto) 80.8H, Lymphocytes (%) (Auto) 11.1L, Monocytes (%) (Auto) 6.3, Eosinophils (%) (Auto) 0.9, Basophils (%) (Auto) 0.5, Neutrophils # (Auto) 12.4H, Lymphocytes # (Auto) 1.7, Monocytes # (Auto) 1.0H, Eosinophils # (Auto) 0.1, Basophils # (Auto) 0.1, Nucleated Red Blood Cells % (auto) 0.0, Anion Gap 7L, Glomerular Filtration Rate 47.1, Calcium Level 10.4H Microbiology Microbiology 06/22/21 Urine Culture, Received Pending 06/22/21 Blood Culture, Received Pending 06/22/21 Blood Culture, Received Pending Current Medications Current Medications Current Medications Medications (Trade) Dose Ordered Sig/Nicolas Route PRN Reason Start Time Stop Time Status Last Admin Dose Admin Acetaminophen (Tylenol Suppository) 650 mg Q4HP PRN [place] MILD PAIN or TEMP > 101 06/22/21 09:45 06/22/21 14:54 Acetaminophen (Tylenol Suppository) 650 mg Q6HP PRN [place] MILD PAIN or TEMP > 101 06/22/21 09:10 06/22/21 09:43 DC Acetaminophen (Tylenol Tab) 650 mg Q4HP PRN PO fever/MILD PAIN (PS 1-4) 06/15/21 14:50 06/22/21 09:55 DC 06/21/21 22:50 Albuterol/ Ipratropium (Combivent Respimat 100-20mcg) 1 puff RTID INH 06/15/21 20:00 06/22/21 13:43 Amlodipine Besylate (Norvasc) 5 mg DAILY PO 06/16/21 09:00 06/21/21 07:34 Apixaban (Eliquis) 5 mg BID PO 06/15/21 21:00 06/22/21 10:30 DC 06/21/21 20:44 Aspirin (Ecotrin) 81 mg QHS PO 06/15/21 21:00 06/21/21 20:44 Bupropion HCl (Wellbutrin Xl) 150 mg DAILY PO 06/16/21 09:00 06/21/21 07:34 Carvedilol (COReg) 3.125 mg BID PO 06/15/21 21:00 06/21/21 20:45 Docusate Sodium (Colace) 100 mg BID PO 06/15/21 21:00 06/21/21 20:44 Duloxetine HCl (Cymbalta) 60 mg DAILY PO 06/16/21 09:00 06/21/21 07:33 Fluticasone Propionate (Flovent Hfa 110 Mcg) 2 puff BID INH 06/15/21 21:00 06/21/21 20:55 Folic Acid (Folic Acid) 1 mg DAILY PO 06/16/21 09:00 06/21/21 07:33 Gabapentin (Neurontin) 300 mg BID@0900,1800 PO 06/15/21 18:00 06/18/21 12:51 DC 06/18/21 09:12 Gabapentin (Neurontin) 600 mg QHS PO 06/15/21 21:00 06/18/21 12:51 DC 06/17/21 20:57 Gabapentin (Neurontin) 600 mg TID@0900,1800,2100 PO 06/18/21 18:00 06/21/21 20:43 Guaifenesin (Robitussin Tab) 400 mg TID PO 06/17/21 16:00 06/21/21 20:43 Lactated Ringer's 1,000 ml @ 125 mls/hr Q8H IV 06/22/21 09:05 06/22/21 09:44 Lidocaine (Lidoderm Patch) 1 patch DAILY TD 06/22/21 09:00 06/22/21 12:20 Loratadine (Claritin) 10 mg DAILY PO 06/16/21 09:00 06/21/21 07:34 Metoclopramide HCl (REGLAN INJection) 10 mg Q6H IV 06/22/21 15:00 Montelukast Sodium (Singulair) 10 mg QHS PO 06/15/21 21:00 06/21/21 20:44 Non-Formulary Medication ( See Comment Field Below ) REMOVE LIDODERM PATCH DAILY@21 XX 06/22/21 21:00 Ondansetron HCl (Zofran Odt) 4 mg Q6HP PRN PO NAUSEA OR VOMITING 06/15/21 14:50 06/22/21 08:08 Pantoprazole Sodium (Protonix) 40 mg DAILY PO 06/16/21 09:00 06/21/21 07:34 Potassium Chloride (Micro-K Extencaps) 20 meq DAILY PO 06/16/21 09:00 06/21/21 07:34 Prochlorperazine (Compazine) 5 mg Q4HP PRN PO NAUSEA OR VOMITING 06/19/21 21:05 06/22/21 02:58 Rosuvastatin Calcium (Crestor) 10 mg QHS PO 06/15/21 21:00 06/21/21 20:44 Senna (Senokot) 1 tab QHS PO 06/15/21 21:00 06/21/21 20:44 Simethicone (Mylicon) 80 mg 0800,1400 PO 06/19/21 14:00 06/21/21 13:27 Tolterodine Tartrate (Detrol La) 4 mg DAILY PO 06/16/21 09:00 06/21/21 07:33 Tramadol HCl (Ultram) 25 mg Q8HP PRN PO MODERATE PAIN (PS >7/10) 06/16/21 12:00 06/17/21 13:22 DC 06/17/21 09:54 Trazodone HCl (Desyrel) 25 mg QHS PO 06/19/21 21:00 06/21/21 20:44 Trazodone HCl (Desyrel) 25 mg QHSP PRN PO INSOMNIA 06/19/21 20:45 CAIN FERNANDEZ MD Jun 22, 2021 15:34
[2021-06-22] MEDS: METOCLOPRAMIDE INJ 10MG/2ML VIAL (J2765 PER 1) IV SCH ×2 (17:15→21:44)
[2021-06-22] MEDS: D5W/0.45% SODIUM CHLORIDE 1,000 ML IV SCH (17:21)
[2021-06-22] MEDS ORDERED: ACETAMINOPHEN *IV* 1,000 MG IV ONE ×2 (18:00)
[2021-06-22] MEDS: SENNA 8.6 MG TAB (SENOKOT) PO SCH (21:00)
[2021-06-22] MEDS: MONTELUKAST 10 MG TAB PO SCH (21:42)
[2021-06-22] MEDS: ASPIRIN 81MG ENTERIC TABLET PO SCH (21:43)
[2021-06-22] MEDS: ROSUVASTATIN 10 MG TAB (CRESTOR) PO SCH (21:44)
[2021-06-22 22:58] VITALS: BP 139/73
[2021-06-23 00:57] VITALS: BP 117/60
[2021-06-23] MEDS: D5W/0.45% SODIUM CHLORIDE 1,000 ML IV SCH ×4 (03:04→23:55)
[2021-06-23] MEDS: METOCLOPRAMIDE INJ 10MG/2ML VIAL (J2765 PER 1) IV SCH ×4 (03:04→21:54)
[2021-06-23] MEDS ORDERED: ACETAMINOPHEN TAB 650MG DOSE (2X325MG) PO ONE (05:55)
[2021-06-23 06:39] VITALS: BP 144/70
[2021-06-23 08:31] LABS: HEMOGLOBIN 11.9 g/dl (12.0-15.5); MEAN CORPUSCULAR HEMOGLOBIN 29.5 pg (27.0-33.0); MEAN CORPUSCULAR HGB CONC 32.2 g/dl (32.0-36.5); MEAN CORPUSCULAR VOLUME 91.8 fl (80.0-96.0); PLATELET COUNT, AUTOMATED 241 10^3/uL (150-450); RED BLOOD COUNT 4.03 10^6/uL (4.00-5.40)
--- NOTE | 2021-06-23 08:54 | IPNPDOC ---
Text Note Date of Service The patient was seen on 06/23/21. NOTE No acute events overnight. She is tolerating the NG in place and has no more nausea, emesis, or abd pains. NG still has bilious output, and her ostomy is still producing. VSSAF NAD abd - soft, TTP appropriate to incision sites, no rebound or guarding, there is succus in the bag. labs - below CT - no signs of obstruction, there is collapse of the distal duodenum with proximal distention A) 66y/o female s/p RA VHR and parastomal hernia repair duodenal ileus from unknown cause, no signs of obstruction on CT, and the recent SBFT was normal P) NGT to LIS for one more day, then possibly restart liquid diet tomorrow reglan ATC monitor electrolytes ok to clamp NG and participate in therapy Jeramie Byrd DO VS,[place], I+O VS, [place], I+O Laboratory Tests 06/23/21 08:01 Vital Signs Date Time Temp Pulse Resp B/P (MAP) Pulse Ox O2 Delivery O2 Flow Rate FiO2 06/23/21 06:39 97.3 81 18 144/70 (94) 92 Room Air I&O- Last 24 Hours up to 6 AM 06/23/21 06:00 Intake Total 3595 ml Output Total 1350 ml Balance 2245 ml ROXANN BYRD DO Jun 23, 2021 08:54
--- NOTE | 2021-06-23 08:54 | IPNPDOC ---
Text Note Date of Service The patient was seen on 06/23/21. NOTE General surgery. Dr Byrd The patient is a 66-year-old female status post robotic assisted laparoscopic repair of parastomal and ventral hernia 05/26/2021, admitted 06/07/2021 with small bowel obstruction, transferred to ARU 06/15/21. The patient was advanced to soft diet 06/19 and subsequently had recurrent abdominal pain, nausea and vomiting 06/22. NG tube is currently in place. This morning, the patient states she is feeling better. Denies nausea. Denies abdominal pain. Afebrile. VSS NG tube in place Lungs are clear to auscultation S1-S2 regular rate rhythm Abdomen is soft, nontender, nondistended, there is brown stool in the ostomy bag. WBC 12.0 this morning, this is decreased from 15.3 yesterday. 1150 mL documented from NG tube yesterday. Stool output not documented yesterday. CT abdomen/pelvis 06/22/2021 indicated 1. Improved lung bases. 2. Distention of the stomach and 1st 3 parts of the duodenum representing a change from the prior exam. There is a nasogastric tube in place as described above. 3. Collapsed and unchanged appearing duodenal sweep across the midline. Stricture cannot be ruled out. 4. Improved parastomal fluid collection with persistently collapsed bowel at the enterostomy site as described above. 5. Unchanged infrarenal abdominal aortic aneurysm. 6. Fluid-filled esophagus. 7. Other findings as described above. Assessment/plan Status post robotic assisted laparoscopic repair of parastomal and ventral hernia 05/26/2021, admitted 06/07/2021 with small bowel obstruction. The patient was advanced to soft diet 06/19 and subsequently had recurrent abdominal pain, nausea and vomiting 06/22. NG tube is currently in place CT abdomen/pelvis indicated distention of the stomach and 1st 3 parts of the duodenum representing a change from the prior exam. Patient reports feeling better this morning. 1150 mL documented output from NG tube yesterday. The patient is continuing to have output from the ostomy. WBC downtrending. Will review with Dr. Byrd who is covering for Dr. Johnson. Currently NPO. IVF 100 mL/hour VS,Fishbone, I+O VS, Fishbone, I+O Vital Signs Date Time Temp Pulse Resp B/P (MAP) Pulse Ox O2 Delivery O2 Flow Rate FiO2 06/23/21 06:39 97.3 81 18 144/70 (94) 92 Room Air I&O- Last 24 Hours up to 6 AM 06/23/21 06:00 Intake Total 3595 ml Output Total 1350 ml Balance 2245 ml Crystal Zuluaga Jun 23, 2021 08:40
[2021-06-23] MEDS: NEXIUM 40MG CAPSULE (PATIENT'S OWN MED) PO SCH ×2 (09:00→21:58)
[2021-06-23] MEDS: REMEDY PHYTOPLEX Z-GUARD PASTE 113GM TUBE (FROM STOREROOM PRODUCT) TOP SCH ×3 (09:00→21:00)
[2021-06-23] MEDS: DOCUSATE SODIUM 100MG CAPSULE PO SCH ×2 (09:13→21:55)
[2021-06-23] MEDS: CARVedilol 3.125 MG TAB PO SCH ×2 (09:13→21:58)
[2021-06-23] MEDS: SIMETHICONE 80MG CHEW TAB PO SCH ×2 (09:13→15:51)
[2021-06-23] MEDS: buPROPion **XL** TABLET 150MG (WELLBUTRIN XL) PO SCH (09:13)
[2021-06-23] MEDS: amLODIPine 5 MG TAB PO SCH (09:14)
[2021-06-23] MEDS: guaiFENesin 200 MG TAB PO SCH ×3 (09:22→21:55)
[2021-06-23] MEDS: TOLTERODINE TARTRATE 2 MG LA CAP (DETROL LA) PO SCH (09:23)
[2021-06-23] MEDS: DULoxetine 30MG CAPSULE (CYMBALTA) PO SCH (09:23)
[2021-06-23] MEDS: GABAPENTIN 300 MG CAP PO SCH ×3 (09:23→21:56)
[2021-06-23] MEDS: FOLIC ACID 1 MG TAB PO SCH (09:23)
[2021-06-23] MEDS: LORATADINE 10 MG TAB PO SCH (09:24)
[2021-06-23] MEDS: PANTOPRAZOLE 40MG TAB (PROTONIX) PO SCH (09:24)
[2021-06-23] MEDS: POTASSIUM CHLORIDE 10MEQ SR TABLET PO SCH (09:24)
[2021-06-23] MEDS: LIDOCAINE 5% (LIDODERM) PATCH TD SCH (09:25)
--- NOTE | 2021-06-23 09:25 | IPNPDOC ---
PM&R Progress Note DATE OF SERVICE: Jun 23, 2021 Supply Room Clerk Progress Note DATE OF ADMISSION: Jun 15, 2021 at 15:45 Chief Complaint: Abdominal pain Back and generalized pain Generalized weakness Sore throat SUBJECTIVE: This is a 66 year old female with PMH of previous opioid dependent chronic int ractable pain status post anterior C4-C6 plate and screw fusion, T12 compression fracture and history of incidental finding of AAA. She is status post Posterior discectomy and placement of disc spacers,episode of bowel ischemia leading to small bowel obstruction requiring surgical intervention and placement of ileostomy approximately a year ago, who was admitted for debility status post laparoscopic lysis of adhesions, drainage of fluid collection around the ostomy and alleviation of recurrent obstruction. Pain management has been challenging as a recommendation was to avoid potential further aggravation of the chronic ileus use of opioids. Patient was noted to have escalating nausea, vomiting, any food or liquid was placed nothing by mouth 06.21.21, given Zofran, however, continued to have severe vomiting. Leukocytosis 15.3 also noted. Patient remained afebrile (on RTC Tylenol), heart rate slightly up in high 90s, output from ileostomy was noted to be scant compared to usual per the , apparently diet slowly progressed over weekend. Soft half sandwich, very small amount of intake attempted.. 06.22.2021 Today,patient was continued nothing by mouth, placed on IV fluids, blood and urine cultures obtained and put on therapy hold. I discussed the case briefly with Dr. Johnson who graciously responded from his break advised follow-up should proceed with the covering surgeon.. We proceeded with CT of the abdomen/pelvis and placement of an NGT, which drained large amounts of bilious fluid. Patient had some relief with decompression, Tylenol suppository, however, continues to have significant abdominal pain and unable to participate in therapy at this time. 06.23.2021 Brighter affect, 1400+ output via NGT overnight, IV Tylenol seemed to help reduce pain as well as addition of Reglan which may have helped improve intestinal motility, by end of day yesterday had increased bowel sounds and output from Ileostomy. Emesis has abated. Abdominal pain now down to 6 from 7-9 yesterday. Her baseline chronic pain is about 4-6. She denies recollection of CVA after endarterectomy, upon further exploration of history with and available medical records, possibly she had a TIA, no persisting hemiparesis, has had encephalopathic changes related to polypharmacy attempted to alleviate her pain. We discussed resuming routine meds with sips of water today and resuming bedside therapies to help move things along if possible. Creatinine noted to be creeping up, WBC improving down to 12. BC pending, Urine negative. REVIEW OF SYSTEMS: The following is a completed review of systems and has been reviewed. Review of systems otherwise unremarkable. PAIN: Patient notes general abdominal discomfort and mid and low back pain 5- 02/05 EYES: No recent vision changes EARS, NOSE, & THROAT: No throat pain, or dysphagia, or rhinorrhea CARDIOVASCULAR: Denies chest pain or palpitations PULMONARY: Denies shortness of breath GASTROINTESTINAL: Improved output via ostomy, less cramping and pain, severe nausea and intractable vomiting GENITOURINARY: denies dysuria MUSCULOSKELETAL: generalized weakness NEUROLOGICAL:denies paresthesias HEMATOLOGICAL: admits easy bruising SKIN: +ostomy PSYCHIATRIC: +anxiety/depression All other review of systems found to be negative. PHYSICAL EXAMINATION: VITAL SIGNS: Please see below. GENERAL: Less distress, brighter affect, more spontaneous movement HEENT: PERRL. Extraocular movements intact. Clear conjunctiva, healead anterior right endarterectomy scar, No point tenderness CT region, no adenopathy, full range of motion CARDIOVASCULAR: Regular rate and rhythm. II/ SM LUNGS: Clear to auscultation bilaterally. No wheezes. No rhonchi]. ABDOMEN: Soft, nontender, nondistended. Positive bowel sounds. +osotomy with small amount of soft formed brown stool output healing LLQ laparascopy site, non tender NEUROLOGICAL: Alert and oriented. Cranial nerves II through XII grossly intact. Sensation grossly intact EXTREMITIES: 5\5 strength all four extremities. No peripheral edema SKIN: nazario-stoma site ASSESSMENT: -Abdominal pain status post laparoscopic peristomal hernia and ventral hernia repair with revision of ileostomy and lysis of adhesions 05/26/[address] Johnson -Status post small bowel obstruction with leukocytosis, left slight abnormalities, RVR, requiring IV beta blockade. -Recurrent Ileus, possible obstruction, under observation -Intractable vomiting -Status posts episode of hospital-acquired delirium -Recurrent Leukocytosis. -Hypercalcemia. -Hypoalbuminemia. -MIQUEL -T12 compression fracture. -Abdominal aortic aneurysm. - Sick Sinus syndrome. -Essential tremor. -COPD -Anxiety with depression. -Hypertension. -Fibromyalgia -PMH CVA s/p R CEA This is a debilitated 66-year-old Female with past medical history of multiple abdominal surgeries who presents status post Small bowel obstruction with debility, generalized and abdominal pain, episode of intractable vomiting and ge neralized weakness with poor activity tolerance. Workup thus far noted for CT Abdomen Pelvis: Since the last examination a nasogastric tube has been passed the tip of the tube is in the stomach fundal region. The stomach is somewhat gas and fluid filled/mildly distended. The duodenal sweep across the midline is again seen to be collapsed. The fluid collection seen previously at the enterostomy site has decreased previously measuring approximately 6 cm today measuring approximately 2.8 cm. The loop of bowel along the right side of the fluid collection is again seen to be narrowed and having an unchanged appearance. The remainder of the imaged bowel loops are unremarkable. There is an unchanged 3.1 cm sized infrarenal abdominal aortic aneurysm. The adrenal glands, kidneys, and pancreas are unchanged. The liver and spleen are unchanged. There is intrahepatic ductal dilatation secondary to the patient's post cholecystectomy state status quo. No free fluid or free air has developed. There is no significant change in appearance of the osseous structures. There is an unchanged grade 4 appearing T12 compression fracture. 1. Improved lung bases. 2. Distention of the stomach and 1st 3 parts of the duodenum representing a change from the prior exam. There is a nasogastric tube in place as described above. 3. Collapsed and unchanged appearing duodenal sweep across the midline. Stricture cannot be ruled out. 4. Improved parastomal fluid collection with persistently collapsed bowel at the enterostomy site as described above. 5. Unchanged infrarenal abdominal aortic aneurysm. 6. Fluid-filled esophagus. Repeat KUB today noted dilated loops of bowel, no free air. Surgery suggests continue NGT, clamped for therapies, tolerated, patient more active in room and during the day today. PLAN: 1. Rehab- PT/OT advance mobility and ADLs, strengthen/stretch/maintain ROM all 4 limbs 2. Neuro- patient with intermittent episodes of encephalopathy possible due to fluctuating electrolyte abnormalities vs infectious or polypharmacy side effects, may have some degree of cognitive impairments -refer to neurology on d/c for formal cog eval - Probable hx of TIA s/p right CEA cont secondary stroke prevention- ASA and statin 3. Cardaic- hx of Afib with PM held eliquis possible pre-op, IM monitoring on best plan given possible pre-op status, beta-reyes -HTN cont BP meds -HLD cont statin -abdominal aortic aneurysm- to be followed by PCP -medicine consulted to assist in overall management 4. Resp- monitor for infection, cont breathing treatments, singulair, and claritin for hx of COPD -s/p course of Levaquin for PNA-patient reporting new cough on 06-17-21 with interim repeat CXR negative, CT negative, lungs clear, reporting no cough, encourage incentive spirometry, cont guaifenesin 5. GI- s/p robotic assisted laparoscopic nazario-stomal hernia and ventral hernia repair with lysis of adhesions on 05-26-21 complicated by SBO, treated with NGT decompression- not tolerating trial of progression to soft diet from full liquid diet- placed back NPO, has had Zofran wafers, scopolamine patch and added IV Reglan per surgery and she is to be advanced per surgery who has been consulted. Will permit meds with sips of water and continue to monitor KUB , seems to be turning a corner. -ostomy care -on omeprazole for ppx, patient requesting switch to home med, Nexium - added simethicone for gas, cont zofran prn and space out Reglan, monitor cardiac function -Emphasizing control of GI challenges will help reduce pain-simethicone, antacids, tylenol, 6. Pain- patient with chronic pain with history of chronic opioid use, recommendation noted to avoid/minimize opioids as possibly contributing to patients episodes of ileus vs obstruction -cont gabapentin (was increased to 600 TID), tramadol d/c'd, but might need to resume, trial of , tylenol suppository for pain, was insufficient, had to trial IV Tylenol which was helpful given limited options. Will observe for AMS, GI, electrolyte changes, will trial small dose Vistaril to see if may also help reduce anxiety/pain component prior to very careful trial resuming Tramadol with observation for confusion/AMS. 7. Psych- anxiety/depression with fibromyalgia cont Wellbutrin, Coreg, trazodone, Cymbalta, may need adjustment in this polypharmacy to help alleviate the nausea and vomiting episodes, started with DC Trazodone, slept fine without it. 8. - cont Detrol, monitor PVRs 9. DVT ppx- on eliquis ALLERGIES: See Below MEDICATIONS: Reviewed, see below. FUNCTIONAL STATUS: Modified independent with supine to sit, rolling, standby assistance to stand, bed to chair, toilet commode, shower tub transfers. Ambulating with 4 wheeled walker, bathing and dressing upper body with standby assistance. LABORATORY DATA: Reviewed. Please see below. MICROBIOLOGY: See below UA neg. DISPOSITION Home with TIME SPENT: Chart Review, examination and documentation 60 minutes. Allergies Coded Allergies: Penicillins (Verified Allergy, Severe, anaphylaxis, 05/18/21) pregabalin (Verified Allergy, Severe, ANAPHYLAXIS, 05/18/21) Cephalosporins (Verified Adverse Reaction, Severe, red man syndrome, 05/18/21) Vital Signs Vital Signs Date Time Temp Pulse Resp B/P (MAP) Pulse Ox O2 Delivery O2 Flow Rate FiO2 06/23/21 06:39 97.3 81 18 144/70 (94) 92 Room Air Laboratory Data CBC/BMP Laboratory Tests 06/23/21 08:01 Labs 24H Laboratory Tests 2 06/23/21 08:01: Nucleated Red Blood Cells % (auto) 0.0 Microbiology Microbiology 06/22/21 Urine Culture - Final, Complete 06/22/21 Blood Culture, Received Pending 06/22/21 Blood Culture, Received Pending Current Medications Current Medications Current Medications Medications (Trade) Dose Ordered Sig/Nicolas Route PRN Reason Start Time Stop Time Status Last Admin Dose Admin Acetaminophen (Tylenol Suppository) 650 mg Q4HP PRN FL MILD PAIN or TEMP > 101 06/22/21 09:45 06/22/21 14:54 Acetaminophen (Tylenol Suppository) 650 mg Q6HP PRN FL MILD PAIN or TEMP > 101 06/22/21 09:10 06/22/21 09:43 DC Acetaminophen (Tylenol Tab) 650 mg Q4HP PRN PO fever/MILD PAIN (PS 1-4) 06/15/21 14:50 06/22/21 09:55 DC 06/21/21 22:50 Albuterol/ Ipratropium (Combivent Respimat 100-20mcg) 1 puff RTID INH 06/15/21 20:00 06/22/21 13:43 Amlodipine Besylate (Norvasc) 5 mg DAILY PO 06/16/21 09:00 06/21/21 07:34 Apixaban (Eliquis) 5 mg BID PO 06/15/21 21:00 06/22/21 10:30 DC 06/21/21 20:44 Aspirin (Ecotrin) 81 mg QHS PO 06/15/21 21:00 06/22/21 21:43 Bupropion HCl (Wellbutrin Xl) 150 mg DAILY PO 06/16/21 09:00 06/21/21 07:34 Carvedilol (COReg) 3.125 mg BID PO 06/15/21 21:00 06/22/21 21:44 Dextrose/Sodium Chloride 1,000 ml @ 100 mls/hr Q10H IV 06/22/21 17:20 06/23/21 03:04 Docusate Sodium (Colace) 100 mg BID PO 06/15/21 21:00 06/22/21 21:52 Duloxetine HCl (Cymbalta) 60 mg DAILY PO 06/16/21 09:00 06/21/21 07:33 Fluticasone Propionate (Flovent Hfa 110 Mcg) 2 puff BID INH 06/15/21 21:00 06/21/21 20:55 Folic Acid (Folic Acid) 1 mg DAILY PO 06/16/21 09:00 06/21/21 07:33 Gabapentin (Neurontin) 300 mg BID@0900,1800 PO 06/15/21 18:00 06/18/21 12:51 DC 06/18/21 09:12 Gabapentin (Neurontin) 600 mg QHS PO 06/15/21 21:00 06/18/21 12:51 DC 06/17/21 20:57 Gabapentin (Neurontin) 600 mg TID@0900,1800,2100 PO 06/18/21 18:00 06/22/21 21:43 Guaifenesin (Robitussin Tab) 400 mg TID PO 06/17/21 16:00 06/22/21 21:43 Lactated Ringer's 1,000 ml @ 125 mls/hr Q8H IV 06/22/21 09:05 06/22/21 17:18 DC 06/22/21 09:44 Lidocaine (Lidoderm Patch) 1 patch DAILY TD 06/22/21 09:00 06/22/21 12:20 Loratadine (Claritin) 10 mg DAILY PO 06/16/21 09:00 06/21/21 07:34 Metoclopramide HCl (REGLAN INJection) 10 mg Q6H IV 06/22/21 15:00 06/23/21 03:04 Montelukast Sodium (Singulair) 10 mg QHS PO 06/15/21 21:00 06/22/21 21:42 Non-Formulary Medication ( See Comment Field Below ) REMOVE LIDODERM PATCH DAILY@21 XX 06/22/21 21:00 06/22/21 21:53 Ondansetron HCl (Zofran Odt) 4 mg Q6HP PRN PO NAUSEA OR VOMITING 06/15/21 14:50 06/22/21 08:08 Pantoprazole Sodium (Protonix) 40 mg DAILY PO 06/16/21 09:00 06/21/21 07:34 Phenol (Chloraseptic Dutton) 1 spray Q2HP PRN MT SORE THROAT 06/23/21 05:55 Potassium Chloride (Micro-K Extencaps) 20 meq DAILY PO 06/16/21 09:00 06/21/21 07:34 Prochlorperazine (Compazine) 5 mg Q4HP PRN PO NAUSEA OR VOMITING 06/19/21 21:05 06/22/21 02:58 Rosuvastatin Calcium (Crestor) 10 mg QHS PO 06/15/21 21:00 06/22/21 21:44 Senna (Senokot) 1 tab QHS PO 06/15/21 21:00 06/21/21 20:44 Simethicone (Mylicon) 80 mg 0800,1400 PO 06/19/21 14:00 06/21/21 13:27 Tolterodine Tartrate (Detrol La) 4 mg DAILY PO 06/16/21 09:00 06/21/21 07:33 Tramadol HCl (Ultram) 25 mg Q8HP PRN PO MODERATE PAIN (PS >7/10) 06/16/21 12:00 06/17/21 13:22 DC 06/17/21 09:54 Trazodone HCl (Desyrel) 25 mg QHS PO 06/19/21 21:00 06/22/21 21:34 DC 06/21/21 20:44 Trazodone HCl (Desyrel) 25 mg QHSP PRN PO INSOMNIA 06/19/21 20:45 CAIN Le MD Jun 23, 2021 09:25
--- NOTE | 2021-06-23 13:12 | REP ---
INDICATION: tracking progress of improving ileus. COMPARISON: KUB, 06/22/2021. TECHNIQUE: Portable supine image of the abdomen was obtained. FINDINGS: There are multiple air containing loops of small bowel a few of which are abnormally dilated. There is no free intraperitoneal air. Enterostomy is noted in the right lower quadrant. There is intravenous contrast noted in the urinary bladder. The patient is status post total colectomy. IMPRESSION: Findings most consistent with ileus. Partial small bowel obstruction not excluded. No significant change. <Electronically signed by James Garcia > 06/23/21 [id number]
[2021-06-23 14:00] VITALS: BP 156/74
[2021-06-23 14:44] LABS: ALBUMIN 2.9 GM/DL (3.2-5.2); BILIRUBIN,TOTAL 0.2 MG/DL (0.2-1.0); CALCIUM LEVEL 8.7 MG/DL (8.8-10.2); GLOMERULAR FILTRATION RATE 58.7 (>45); POTASSIUM SERUM 3.7 MEQ/L (3.5-5.1); TOTAL PROTEIN 5.8 GM/DL (6.4-8.2)
[2021-06-23] MEDS: hydrOXYzine 10 MG TAB PO PRN ×2 (15:47→22:12)
[2021-06-23] MEDS ORDERED: ENTER DRUG NAME HERE (PATIENT'S OWN MED) PO ONE (16:25)
[2021-06-23] MEDS: PROCHLORPERAZINE 5 MG TAB (S0183) PO PRN ×2 (18:57→23:44)
[2021-06-23 20:00] VITALS: BP 132/60
[2021-06-23] MEDS: COMBIVENT RESPIMAT 100-20MCG INHALER 4GM INH SCH (20:00)
[2021-06-23] MEDS: FLUTICASONE HFA 110 MCG 12 GM INHALER (FLOVENT) INH SCH (21:00)
[2021-06-23] MEDS: ROSUVASTATIN 10 MG TAB (CRESTOR) PO SCH (21:55)
[2021-06-23] MEDS: MONTELUKAST 10 MG TAB PO SCH (21:55)
[2021-06-23] MEDS: ASPIRIN 81MG ENTERIC TABLET PO SCH (21:55)
[2021-06-23] MEDS: SENNA 8.6 MG TAB (SENOKOT) PO SCH (21:55)
[2021-06-23] MEDS: MORPHINE 4 MG/ML 1ML VIAL/SYRINGE (J2270) IV PRN (23:44)
[2021-06-24] MEDS: METOCLOPRAMIDE INJ 10MG/2ML VIAL (J2765 PER 1) IV SCH ×4 (03:57→20:15)
[2021-06-24] MEDS: MORPHINE 4 MG/ML 1ML VIAL/SYRINGE (J2270) IV PRN (03:58)
[2021-06-24] MEDS: PROCHLORPERAZINE 5 MG TAB (S0183) PO PRN (05:27)
[2021-06-24 06:00] VITALS: BP 131/61
[2021-06-24] MEDS: COMBIVENT RESPIMAT 100-20MCG INHALER 4GM INH SCH ×3 (08:00→20:19)
[2021-06-24] MEDS: D5W/0.45% SODIUM CHLORIDE 1,000 ML IV SCH (08:21)
[2021-06-24] MEDS: FOLIC ACID 1 MG TAB PO SCH (08:21)
[2021-06-24] MEDS: TOLTERODINE TARTRATE 2 MG LA CAP (DETROL LA) PO SCH (08:21)
[2021-06-24] MEDS: SIMETHICONE 80MG CHEW TAB PO SCH ×2 (08:21→14:20)
[2021-06-24] MEDS: LORATADINE 10 MG TAB PO SCH (08:21)
[2021-06-24] MEDS: DULoxetine 30MG CAPSULE (CYMBALTA) PO SCH (08:21)
[2021-06-24] MEDS: NEXIUM 40MG CAPSULE (PATIENT'S OWN MED) PO SCH ×2 (08:21→20:16)
[2021-06-24] MEDS: amLODIPine 5 MG TAB PO SCH (08:22)
[2021-06-24] MEDS: PANTOPRAZOLE 40MG TAB (PROTONIX) PO SCH (08:22)
[2021-06-24] MEDS: DOCUSATE SODIUM 100MG CAPSULE PO SCH ×2 (08:22→20:15)
[2021-06-24] MEDS: GABAPENTIN 300 MG CAP PO SCH ×3 (08:22→20:14)
[2021-06-24] MEDS: buPROPion **XL** TABLET 150MG (WELLBUTRIN XL) PO SCH (08:22)
[2021-06-24] MEDS: POTASSIUM CHLORIDE 10MEQ SR TABLET PO SCH (08:22)
[2021-06-24] MEDS: CARVedilol 3.125 MG TAB PO SCH ×2 (08:23→20:16)
[2021-06-24] MEDS: LIDOCAINE 5% (LIDODERM) PATCH TD SCH (08:24)
[2021-06-24] MEDS: ACETAMINOPHEN 500 MG TAB PO SCH ×3 (08:26→20:15)
[2021-06-24 08:33] LABS: BASO # 0.1 10^3/uL (0.0-0.2); BASO % 0.7 % (0.0-1.0); EOS # 0.5 10^3/uL (0.0-0.5); EOS % 3.4 % (0.0-3.0); HEMATOCRIT 34.2 % (36.0-47.0); HEMOGLOBIN 10.9 g/dl (12.0-15.5); LYMPH % 14.8 % (24.0-44.0); MEAN CORPUSCULAR HEMOGLOBIN 29.2 pg (27.0-33.0); MEAN CORPUSCULAR HGB CONC 31.9 g/dl (32.0-36.5); MEAN CORPUSCULAR VOLUME 91.7 fl (80.0-96.0); MONO # 1.1 10^3/uL (0.0-0.8); MONO % 8.2 % (2.0-8.0); NEUTROPHILS # 9.7 10^3/uL (1.5-8.5); NEUTROPHILS % 72.5 % (36.0-66.0); PLATELET COUNT, AUTOMATED 197 10^3/uL (150-450); RED BLOOD COUNT 3.73 10^6/uL (4.00-5.40); WHITE BLOOD COUNT 13.4 10^3/uL (4.0-10.0)
[2021-06-24] MEDS: guaiFENesin 200 MG TAB PO SCH ×3 (09:00→20:15)
[2021-06-24] MEDS: FLUTICASONE HFA 110 MCG 12 GM INHALER (FLOVENT) INH SCH ×2 (09:00→21:00)
[2021-06-24] MEDS: REMEDY PHYTOPLEX Z-GUARD PASTE 113GM TUBE (FROM STOREROOM PRODUCT) TOP SCH ×3 (09:00→20:16)
--- NOTE | 2021-06-24 09:03 | IPNPDOC ---
Text Note Date of Service The patient was seen on 06/24/21. NOTE General surgery. Dr Byrd The patient is a 66-year-old female status post robotic assisted laparoscopic repair of parastomal and ventral hernia 05/26/2021, admitted 06/07/2021 with small bowel obstruction, transferred to ARU 06/15/21. The patient was advanced to soft diet 06/19 and subsequently had recurrent abdominal pain, nausea and vomiting 06/22. NG tube is currently in place. This morning, the patient denies abdominal pain. Denies nausea. Has continued to have output from ostomy. Anticipated with therapy yesterday. Afebrile. VSS NG tube in place Lungs are clear to auscultation S1-S2 regular rate rhythm Abdomen is soft, nontender, nondistended, there is brown stool in the ostomy bag. WBC 13.4 this morning, 12.0 yesterday. 200 mL documented from NG tube yesterday. Stool output yesterday 150 mL documented, 225 mL documented so far today. CT abdomen/pelvis 06/22/2021 indicated 1. Improved lung bases. 2. Distention of the stomach and 1st 3 parts of the duodenum representing a change from the prior exam. There is a nasogastric tube in place as described above. 3. Collapsed and unchanged appearing duodenal sweep across the midline. Stricture cannot be ruled out. 4. Improved parastomal fluid collection with persistently collapsed bowel at the enterostomy site as described above. 5. Unchanged infrarenal abdominal aortic aneurysm. 6. Fluid-filled esophagus. 7. Other findings as described above. Assessment/plan Status post robotic assisted laparoscopic repair of parastomal and ventral hernia 05/26/2021, admitted 06/07/2021 with small bowel obstruction. The patient was advanced to soft diet 06/19 and subsequently had recurrent abdominal pain, nausea and vomiting 06/22. NG tube is currently in place CT abdomen/pelvis indicated distention of the stomach and 1st 3 parts of the duodenum representing a change from the prior exam. Reglan 10mg IV Q6h The patient is reviewed with Dr. Byrd who is covering for Dr. Johnson. Plan for trial of clamping NGT and trial of clear liquids today. Continue to monitor. VS,Fishbone, I+O VS, Fishbone, I+O Laboratory Tests 06/23/21 12:07 06/24/21 08:18 Vital Signs Date Time Temp Pulse Resp B/P (MAP) Pulse Ox O2 Delivery O2 Flow Rate FiO2 06/24/21 08:23 88 131/61 06/24/21 06:00 98.5 18 86 Room Air I&O- Last 24 Hours up to 6 AM 06/24/21 05:59 Intake Total 2428 ml Output Total 2350 ml Balance 78 ml Crystal Zuluaga Jun 24, 2021 09:03
[2021-06-24 09:08] LABS: ALBUMIN 2.7 GM/DL (3.2-5.2); ALT/SGPT 12 U/L (12-78); BILIRUBIN,TOTAL 0.3 MG/DL (0.2-1.0); BLOOD UREA NITROGEN 4 MG/DL (7-18); CALCIUM LEVEL 8.3 MG/DL (8.8-10.2); CARBON DIOXIDE LEVEL 25 MEQ/L (21-32); CHLORIDE LEVEL 106 MEQ/L (98-107); CREATININE FOR GFR 0.78 MG/DL (0.55-1.30); GLOMERULAR FILTRATION RATE > 60.0 (>45); GLUCOSE, FASTING 101 MG/DL (70-100); POTASSIUM SERUM 3.3 MEQ/L (3.5-5.1); SODIUM LEVEL 138 MEQ/L (136-145); TOTAL PROTEIN 5.6 GM/DL (6.4-8.2)
--- NOTE | 2021-06-24 11:33 | IPNPDOC ---
PM&R Progress Note DATE OF SERVICE: Jun 24, 2021 Catering Associate Progress Note DATE OF ADMISSION: Jun 15, 2021 at 15:45 REHABILITATION DAY # 9 Chief Complaint: Abdominal pain Back and generalized pain Generalized weakness Sore throat SUBJECTIVE: This is a 66 year old female with PMH of previous opioid dependent chronic in tractable pain status post anterior C4-C6 plate and screw fusion, T12 compression fracture and history of incidental finding of AAA. She is status post Posterior discectomy and placement of disc spacers,episode of bowel ischemia leading to small bowel obstruction requiring surgical intervention and placement of ileostomy approximately a year ago, who was admitted for debility status post laparoscopic lysis of adhesions, drainage of fluid collection around the ostomy and alleviation of recurrent obstruction. Pain management has been challenging as a recommendation was to avoid potential further aggravation of the chronic ileus use of opioids. Patient was noted to have escalating nausea, vomiting, any food or liquid was placed nothing by mouth 06.21.21, given Zofran, however, continued to have severe vomiting. Leukocytosis 15.3 also noted. Patient remained afebrile (on RTC Tylenol), heart rate slightly up in high 90s, output from ileostomy was noted to be scant compared to usual per the , apparently diet slowly progressed over weekend. Soft half sandwich, very small amount of intake attempted.. 06.22.2021 Today,patient was continued nothing by mouth, placed on IV fluids, bl ood and urine cultures obtained and put on therapy hold. I discussed the case briefly with Dr. Johnson who graciously responded from his break advised follow-up should proceed with the covering surgeon.. We proceeded with CT of the abdomen/pelvis and placement of an NGT, which drained large amounts of bilious fluid. Patient had some relief with decompression, Tylenol suppository, however, continues to have significant abdominal pain and unable to participate in therapy at this time. 06.23.2021 Brighter affect, 1400+ output via NGT overnight, IV Tylenol seemed to help reduce pain as well as addition of Reglan which may have helped improve intestinal motility, by end of day yesterday had increased bowel sounds and output from Ileostomy. Emesis has abated. Abdominal pain now down to 6 from 7-9 yesterday. Her baseline chronic pain is about 4-6. She denies recollection of CVA after endarterectomy, upon further exploration of history with and available medical records, possibly she had a TIA, no persisting hemiparesis, has had encephalopathic changes related to polypharmacy attempted to alleviate her pain. We discussed resuming routine meds with sips of water today and resuming bedside therapies to help move things along if possible. Creatinine noted to be creeping up, WBC improving down to 12. BC pending, Urine negative. 06.24.2021 patient requested pain meds overnight, apparently refused Tylenol suppository, no oral Tylenol available and morphine was provided. Patient is quite comfortable today. Pain level is down to 4, surgery and foot noted. She has been progressed to trial of liquids limping NG tube. We will continue close monitoring of CECILIA. She has resumed and tolerated therapies yesterday, has had no further episodes of emesis with sips of water and medications. Vistaril seemed to help her sleep, however, the combination of that and morphine seems to have led to a hangover effect this morning. Has noted by therapy, the patient is more unsteady and has some cognitive impairments as compared to earlier in the week.. Discussed with patient that we seem to be making progress in dressing the root cause of her pain, she is in agreement with proceeding with scheduled Oral Tylenol.and continue with various therapy modalities to see if we can increase intestinal motility and continue to manage the pain. REVIEW OF SYSTEMS: The following is a completed review of systems and has been reviewed. Review of systems otherwise unremarkable. PAIN: Patient notes general abdominal discomfort and mid and low back pain 5- 6/10 EYES: No recent vision changes EARS, NOSE, & THROAT: No throat pain, or dysphagia, or rhinorrhea CARDIOVASCULAR: Denies chest pain or palpitations PULMONARY: Denies shortness of breath GASTROINTESTINAL: Improved output via ostomy, less abdominal cramping and pain, resolution of the severe nausea and intractable vomiting GENITOURINARY: denies dysuria MUSCULOSKELETAL: generalized weakness NEUROLOGICAL:denies paresthesias HEMATOLOGICAL: admits easy bruising SKIN: +ostomy PSYCHIATRIC: +anxiety/depression All other review of systems found to be negative. PHYSICAL EXAMINATION: VITAL SIGNS: Please see below. GENERAL: Less distress, flat affect, less spontaneous movement HEENT: PERRL. Extraocular movements intact. Clear conjunctiva, healed anterior right endarterectomy scar, No point tenderness CT region, no adenopathy, full range of motion CARDIOVASCULAR: Regular rate and rhythm. III/ SM LUNGS: Clear to auscultation bilaterally. No wheezes. No rhonchi. ABDOMEN: Soft, nontender, nondistended. Positive although quieter bowel sounds than yesterday, mostly present RLQ. +osotomy with small amount of soft formed brown stool output healing LLQ laparascopy site, non tender NEUROLOGICAL: Alert and oriented. Cranial nerves II through XII grossly intact. Sensation grossly intact EXTREMITIES: 5\5 strength all four extremities. No peripheral edema SKIN: nazario-stoma site pink, no irritation. FUNCTIONAL STATUS: Pt. seated at EOB while performing UE HEP using yellow theraband (green too challenging, brought yellow from home). Pt. ambulated to bathroom with CGA/SBA using 4WW and emptied/cleaned ostomy. Pt. unsteady on feet during ambulation requiring very close SBA /CGA. Pt. ambulated to kitchen where she reached into overhead cupboards and removed items. After seated rest break, pt. attempts to rearrage and organize cupboards but was very fatigued and asked to rest again. Pt. relates fatigue to her poor night's sleep and medical status. Pt. ambulated back to her room. As she was walking toward her bed, she left 4WW, her foot caught on the walker and she tripped requiring maximal assistance to correct loss of balance. Still impulsive and needs further safety awareness. ASSESSMENT: -Abdominal pain status post laparoscopic peristomal hernia and ventral hernia repair with revision of ileostomy and lysis of adhesions 05/26/[address] Johnson -Status post small bowel obstruction with leukocytosis, left slight abnormalities, RVR, requiring IV beta blockade. -Recurrent Ileus, possible obstruction, under observation -Intractable vomiting improving -Status posts episode of hospital-acquired delirium, possible reactivating -Recurrent Leukocytosis. -Hypercalcemia. -Hypoalbuminemia. -Hypokalemia -MIQUEL -T12 compression fracture. -Abdominal aortic aneurysm. - Sick Sinus syndrome. -Heart Murmur -Essential tremor. -COPD -Anxiety with depression. -Hypertension. -Fibromyalgia -PMH CVA s/p R CEA This is a debilitated 66-year-old Female with past medical history of multiple abdominal surgeries who presents status post Small bowel obstruction with debility, generalized and abdominal pain, episode of intractable vomiting and generalized weakness with poor activity tolerance. Workup thus far noted for CT Abdomen Pelvis: Since the last examination a nasogastric tube has been passed the tip of the tube is in the stomach fundal region. The stomach is somewhat gas and fluid filled/mildly distended. The duodenal sweep across the midline is again seen to be collapsed. The fluid collection seen previously at the enterostomy site has decreased previously measuring approximately 6 cm today measuring approximately 2.8 cm. The loop of bowel along the right side of the fluid collection is again seen to be narrowed and having an unchanged appearance. The remainder of the imaged bowel loops are unremarka ble. There is an unchanged 3.1 cm sized infrarenal abdominal aortic aneurysm. The adrenal glands, kidneys, and pancreas are unchanged. The liver and spleen are unchanged. There is intrahepatic ductal dilatation secondary to the patient's post cholecystectomy state status quo. No free fluid or free air has developed. There is no significant change in appearance of the osseous structures. There is an unchanged grade 4 appearing T12 compression fracture. 1. Improved lung bases. 2. Distention of the stomach and 1st 3 parts of the duodenum representing a change from the prior exam. There is a nasogastric tube in place as described above. 3. Collapsed and unchanged appearing duodenal sweep across the midline. Stricture cannot be ruled out. 4. Improved parastomal fluid collection with persistently collapsed bowel at the enterostomy site as described above. 5. Unchanged infrarenal abdominal aortic aneurysm. 6. Fluid-filled esophagus. Repeat KUB 10.26.21 noted dilated loops of bowel, no free air. Surgery suggested continue NGT, clamped for therapies, tolerated, patient more active in room and during the day today. PLAN: 1. Rehab- PT/OT advance mobility and ADLs, strengthen/stretch/maintain ROM all 4 limbs 2. Neuro- patient with intermittent episodes of encephalopathy possible due to fluctuating electrolyte abnormalities vs infectious or polypharmacy side effects, may have some degree of cognitive impairments -refer to neurology on d/c for formal cog eval - Probable hx of TIA s/p right CEA cont secondary stroke prevention- ASA and statin 3. Cardaic- hx of Afib with PM held eliquis possible pre-op, IM monitoring on best plan given possible pre-op status, beta-reyes -HTN cont BP meds -HLD cont statin -abdominal aortic aneurysm- to be followed by PCP -medicine consulted to assist in overall management 4. Resp- monitor for infection, cont breathing treatments, singulair, and claritin for hx of COPD -s/p course of Levaquin for PNA-patient reporting new cough on 06-17-21 with interim repeat CXR negative, CT negative, lungs clear, reporting no cough, encourage incentive spirometry, cont guaifenesin 5. GI- s/p robotic assisted laparoscopic nazario-stomal hernia and ventral hernia repair with lysis of adhesions on 05-26-21 complicated by SBO, treated with NGT decompression- not tolerating trial of progression to soft diet from full liquid diet- placed back NPO, has had Zofran wafers, scopolamine patch and added IV Reglan per surgery and she is to be advanced per surgery who has been consulted. Will permit meds with sips of water and continue to monitor KUB , seems to be turning a corner. -ostomy care -on omeprazole for ppx, patient requesting switch to home med, Nexium, helps reduce pain - added simethicone for gas, cont zofran prn and space out Reglan, monitor cardiac function -Emphasizing control of GI challenges will help reduce pain-simethicone, antaci ds, tylenol, -Very slowly resumption of PO intake.Requested Calorie Count with Dietary. 6. Pain- patient with chronic pain with history of chronic opioid use, recommendation noted to avoid/minimize opioids as possibly contributing to patients episodes of ileus vs obstruction -cont gabapentin (was increased to 600 TID), tramadol d/c'd, but might need to resume, trial of , tylenol suppository for pain, was insufficient, had trial IV Tylenol which was helpful given limited options. Will observe for AMS, GI, electrolyte changes, the trial of small dose Vistaril helped reduce anxiety/pain component however difficult to fully asses as MS also given overnight. We will proceed with Tylenol and very careful trial resuming Tramadol with observation for confusion/AMS. 7. Psych- anxiety/depression with fibromyalgia cont Wellbutrin, trazodone, Cymbalta, may need adjustment in this polypharmacy to help alleviate the nausea and vomiting episodes, started with DC Trazodone, slept fine without it. 8. - cont Detrol, monitor PVRs 9. DVT ppx- ambulatory. Support hose ALLERGIES: See Below MEDICATIONS: Reviewed, see below. FUNCTIONAL STATUS: Modified independent with supine to sit, rolling, standby assistance to stand, bed to chair, toilet commode, shower tub transfers. Ambulating with 4 wheeled walker, bathing and dressing upper body with standby assistance. LABORATORY DATA: Reviewed. Please see below. MICROBIOLOGY: See below UA neg. DISPOSITION Home with TIME SPENT: Chart Review, examination and documentation 60 minutes. Allergies Coded Allergies: Penicillins (Verified Allergy, Severe, anaphylaxis, 05/18/21) pregabalin (Verified Allergy, Severe, ANAPHYLAXIS, 05/18/21) Cephalosporins (Verified Adverse Reaction, Severe, red man syndrome, 05/18/21) Vital Signs Vital Signs Date Time Temp Pulse Resp B/P (MAP) Pulse Ox O2 Delivery O2 Flow Rate FiO2 06/24/21 08:23 88 131/61 06/24/21 06:00 98.5 18 86 Room Air Laboratory Data CBC/BMP Laboratory Tests 06/23/21 12:07 06/24/21 08:18 Labs 24H Laboratory Tests 2 06/23/21 12:07: Anion Gap 7L, Glomerular Filtration Rate 58.7, Calcium Level 8.7#L, Total Bilirubin 0.2, Aspartate Amino Transf (AST/SGOT) 11, Alanine Aminotransferase (ALT/SGPT) 15, Alkaline Phosphatase 53, Total Protein 5.8L, Albumin 2.9L, Albumin/Globulin Ratio 1.0L 06/24/21 08:18: Anion Gap 7L, Glomerular Filtration Rate > 60.0, Calcium Level 8.3L, Total Bilirubin 0.3, Aspartate Amino Transf (AST/SGOT) 12, Alanine Aminotransferase (ALT/SGPT) 12, Alkaline Phosphatase 54, Total Protein 5.6L, Albumin 2.7L, Albumin/Globulin Ratio 0.9L, Immature Granulocyte % (Auto) 0.4, Neutrophils (%) (Auto) 72.5H, Lymphocytes (%) (Auto) 14.8L, Monocytes (%) (Auto) 8.2H, Eosinophils (%) (Auto) 3.4H, Basophils (%) (Auto) 0.7, Neutrophils # (Auto) 9.7H, Lymphocytes # (Auto) 2.0, Monocytes # (Auto) 1.1H, Eosinophils # (Auto) 0.5, Basophils # (Auto) 0.1, Nucleated Red Blood Cells % (auto) 0.0 Microbiology Microbiology 06/22/21 Urine Culture - Final, Complete 06/22/21 Blood Culture - Preliminary, Resulted No growth after 24 hours . All specim... 06/22/21 Blood Culture - Preliminary, Resulted No growth after 24 hours . All specim... Current Medications Current Medications Current Medications Medications (Trade) Dose Ordered Sig/Nicolas Route PRN Reason Start Time Stop Time Status Last Admin Dose Admin Acetaminophen (Tylenol Suppository) 650 mg Q4HP PRN RI MILD PAIN or TEMP > 101 06/22/21 09:45 06/24/21 07:36 DC 06/22/21 14:54 Acetaminophen (Tylenol Suppository) 650 mg Q6HP PRN RI MILD PAIN or TEMP > 101 06/22/21 09:10 06/22/21 09:43 DC Acetaminophen (Tylenol Tab) 650 mg Q12HP PRN PO MILD PAIN or TEMP > 101 06/24/21 07:35 Acetaminophen (Tylenol Tab) 650 mg Q4HP PRN PO fever/MILD PAIN (PS 1-4) 06/15/21 14:50 06/22/21 09:55 DC 06/21/21 22:50 Acetaminophen (Tylenol Tab) 1,000 mg TID PO 06/24/21 09:00 06/24/21 08:26 Albuterol/ Ipratropium (Combivent Respimat 100-20mcg) 1 puff RTID INH 06/15/21 20:00 06/22/21 13:43 Amlodipine Besylate (Norvasc) 5 mg DAILY PO 06/16/21 09:00 06/24/21 08:22 Apixaban (Eliquis) 5 mg BID PO 06/15/21 21:00 06/22/21 10:30 DC 06/21/21 20:44 Aspirin (Ecotrin) 81 mg QHS PO 06/15/21 21:00 06/23/21 21:55 Bupropion HCl (Wellbutrin Xl) 150 mg DAILY PO 06/16/21 09:00 06/24/21 08:22 Carvedilol (COReg) 3.125 mg BID PO 06/15/21 21:00 06/24/21 08:23 Dextrose/Sodium Chloride 1,000 ml @ 100 mls/hr Q10H IV 06/22/21 17:20 06/24/21 10:29 DC 06/24/21 08:21 Docusate Sodium (Colace) 100 mg BID PO 06/15/21 21:00 06/24/21 08:22 Duloxetine HCl (Cymbalta) 60 mg DAILY PO 06/16/21 09:00 06/24/21 08:21 Fluticasone Propionate (Flovent Hfa 110 Mcg) 2 puff BID INH 06/15/21 21:00 06/21/21 20:55 Folic Acid (Folic Acid) 1 mg DAILY PO 06/16/21 09:00 06/24/21 08:21 Gabapentin (Neurontin) 300 mg BID@0900,1800 PO 06/15/21 18:00 06/18/21 12:51 DC 06/18/21 09:12 Gabapentin (Neurontin) 600 mg QHS PO 06/15/21 21:00 06/18/21 12:51 DC 06/17/21 20:57 Gabapentin (Neurontin) 600 mg TID@0900,1800,2100 PO 06/18/21 18:00 06/24/21 08:22 Guaifenesin (Robitussin Tab) 400 mg TID PO 06/17/21 16:00 06/23/21 21:55 Hydroxyzine HCl (Atarax) 10 mg Q6HP PRN PO ANXIETY/AGITATION 06/23/21 14:45 06/23/21 22:12 Lactated Ringer's 1,000 ml @ 125 mls/hr Q8H IV 06/22/21 09:05 06/22/21 17:18 DC 06/22/21 09:44 Lidocaine (Lidoderm Patch) 1 patch DAILY TD 06/22/21 09:00 06/24/21 08:24 Loratadine (Claritin) 10 mg DAILY PO 06/16/21 09:00 06/24/21 08:21 Metoclopramide HCl (REGLAN INJection) 10 mg Q6H IV 06/22/21 15:00 06/24/21 08:23 Montelukast Sodium (Singulair) 10 mg QHS PO 06/15/21 21:00 06/23/21 21:55 Morphine Sulfate (Morphine Sulfate Inj) 2 mg Q4HP PRN IV MODERATE PAIN (PS 5-7) 06/23/21 22:35 06/24/21 07:36 DC 06/24/21 03:58 Non-Formulary Medication ( See Comment Field Below ) REMOVE LIDODERM PATCH DAILY@21 XX 06/22/21 21:00 06/23/21 21:59 Ondansetron HCl (Zofran Odt) 4 mg Q6HP PRN PO NAUSEA OR VOMITING 06/15/21 14:50 06/22/21 08:08 Pantoprazole Sodium (Protonix) 40 mg DAILY PO 06/16/21 09:00 06/24/21 08:22 Patient Own Medication (Patient'S Own Med) Nexium 40mg BID home med BID PO 06/23/21 09:00 06/24/21 08:21 Phenol (Chloraseptic [place]) 1 spray Q2HP PRN MT SORE THROAT 06/23/21 05:55 Potassium Chloride (Micro-K Extencaps) 10 meq DAILY PO 06/24/21 09:00 06/24/21 08:22 Potassium Chloride (Micro-K Extencaps) 20 meq DAILY PO 06/16/21 09:00 06/23/21 14:43 DC 06/23/21 09:24 Prochlorperazine (Compazine) 5 mg Q4HP PRN PO NAUSEA OR VOMITING 06/19/21 21:05 06/24/21 05:27 Rosuvastatin Calcium (Crestor) 10 mg QHS PO 06/15/21 21:00 06/23/21 21:55 Senna (Senokot) 1 tab QHS PO 06/15/21 21:00 06/23/21 21:55 Simethicone (Mylicon) 80 mg 0800,1400 PO 06/19/21 14:00 06/24/21 08:21 Tolterodine Tartrate (Detrol [place]) 4 mg DAILY PO 06/16/21 09:00 06/24/21 08:21 Tramadol HCl (Ultram) 25 mg Q8HP PRN PO MODERATE PAIN (PS >7/10) 06/16/21 12:00 06/17/21 13:22 DC 06/17/21 09:54 Trazodone HCl (Desyrel) 25 mg QHS PO 06/19/21 21:00 06/22/21 21:34 DC 06/21/21 20:44 Trazodone HCl (Desyrel) 25 mg QHSP PRN PO INSOMNIA 06/19/21 20:45 CAIN Le MD Jun 24, 2021 11:32
[2021-06-24 14:00] VITALS: BP 135/70
[2021-06-24 20:00] VITALS: BP 144/72
[2021-06-24] MEDS: SENNA 8.6 MG TAB (SENOKOT) PO SCH (20:15)
[2021-06-24] MEDS: ROSUVASTATIN 10 MG TAB (CRESTOR) PO SCH (20:15)
[2021-06-24] MEDS: ASPIRIN 81MG ENTERIC TABLET PO SCH (20:15)
[2021-06-24] MEDS: MONTELUKAST 10 MG TAB PO SCH (20:15)
[2021-06-24] MEDS: CHLORASEPTIC SPRAY MT PRN (20:17)
[2021-06-24] MEDS: hydrOXYzine 10 MG TAB PO PRN (20:17)
[2021-06-25] MEDS: METOCLOPRAMIDE INJ 10MG/2ML VIAL (J2765 PER 1) IV SCH ×3 (03:00→17:25)
[2021-06-25] MEDS: PROCHLORPERAZINE 5 MG TAB (S0183) PO PRN ×2 (05:38→13:10)
[2021-06-25] MEDS: ACETAMINOPHEN TAB 650MG DOSE (2X325MG) PO PRN ×2 (05:38→18:26)
[2021-06-25] MEDS: CHLORASEPTIC SPRAY MT PRN (05:39)
[2021-06-25 06:00] VITALS: BP 142/62
[2021-06-25] MEDS: FLUTICASONE HFA 110 MCG 12 GM INHALER (FLOVENT) INH SCH ×2 (07:15→21:08)
[2021-06-25] MEDS: COMBIVENT RESPIMAT 100-20MCG INHALER 4GM INH SCH ×3 (07:15→21:07)
[2021-06-25] MEDS ORDERED: SILVER SULFADIAZINE 1% CR 50 GM JAR TOP SCH (09:00)
--- NOTE | 2021-06-25 09:24 | IPNPDOC ---
Text Note Date of Service The patient was seen on 06/25/21. NOTE General surgery. Dr Johnson The patient is a 66-year-old female status post robotic assisted laparoscopic repair of parastomal and ventral hernia 05/26/2021, admitted 06/07/2021 with small bowel obstruction, transferred to ARU 06/15/21. The patient was advanced to soft diet 06/19 and subsequently had recurrent abdominal pain, nausea and vomiting 06/22. NG tube is currently clamped. This morning, the patient denies abdominal pain. Has been tolerating clear liquids without nausea or vomiting. Afebrile. VSS NG tube in place, clamped Lungs are clear to auscultation S1-S2 regular rate rhythm Abdomen is soft, nontender, nondistended, there is brown stool in the ostomy bag. No new labs today. Stool output yesterday 475 mL. [address] abdomen/pelvis 06/22/2021 indicated 1. Improved lung bases. 2. Distention of the stomach and 1st 3 parts of the duodenum representing a change from the prior exam. There is a nasogastric tube in place as described above. 3. Collapsed and unchanged appearing duodenal sweep across the midline. Stricture cannot be ruled out. 4. Improved parastomal fluid collection with persistently collapsed bowel at the enterostomy site as described above. 5. Unchanged infrarenal abdominal aortic aneurysm. 6. Fluid-filled esophagus. 7. Other findings as described above. Assessment/plan Status post robotic assisted laparoscopic repair of parastomal and ventral hernia 05/26/2021, admitted 06/07/2021 with small bowel obstruction. The patient was advanced to soft diet 06/19 and subsequently had recurrent abdominal pain, nausea and vomiting 06/22. NG tube is currently in place CT abdomen/pelvis indicated distention of the stomach and 1st 3 parts of the duodenum representing a change from the prior exam. Continue with Reglan 10mg IV Q6h The patient is reviewed with Dr. Johnson. NG tube is clamped. The patient is tolerating clear liquids with no nausea or vomiting and is having output from her ostomy. Continue to monitor. VS,Fishbone, I+O VS, Fishbone, I+O Vital Signs Date Time Temp Pulse Resp B/P (MAP) Pulse Ox O2 Delivery O2 Flow Rate FiO2 06/25/21 06:00 97.2 90 18 142/62 (88) 97 Room Air I&O- Last 24 Hours up to 6 AM 06/25/21 06:00 Intake Total 630 ml Output Total 375 ml Balance 255 ml Attending Note Attending Note Agree with note by Crystal. Patient tolerating clears around clamped NG. Can remove NG and continue liquid diet. Advance diet slowly. Crystal Zuluaga Jun 25, 2021 09:24 Greg Johnson Jun 27, 2021 14:38
[2021-06-25] MEDS: FOLIC ACID 1 MG TAB PO SCH (10:04)
[2021-06-25] MEDS: PANTOPRAZOLE 40MG TAB (PROTONIX) PO SCH (10:04)
[2021-06-25] MEDS: GABAPENTIN 300 MG CAP PO SCH ×3 (10:04→20:31)
[2021-06-25] MEDS: LIDOCAINE 5% (LIDODERM) PATCH TD SCH (10:04)
[2021-06-25] MEDS: POTASSIUM CHLORIDE 10MEQ SR TABLET PO SCH (10:04)
[2021-06-25] MEDS: SIMETHICONE 80MG CHEW TAB PO SCH ×2 (10:04→13:11)
[2021-06-25] MEDS: DOCUSATE SODIUM 100MG CAPSULE PO SCH ×2 (10:05→20:31)
[2021-06-25] MEDS: TOLTERODINE TARTRATE 2 MG LA CAP (DETROL LA) PO SCH (10:05)
[2021-06-25] MEDS: buPROPion **XL** TABLET 150MG (WELLBUTRIN XL) PO SCH (10:05)
[2021-06-25] MEDS: guaiFENesin 200 MG TAB PO SCH ×3 (10:05→20:31)
[2021-06-25] MEDS: DULoxetine 30MG CAPSULE (CYMBALTA) PO SCH (10:05)
[2021-06-25] MEDS: LORATADINE 10 MG TAB PO SCH (10:05)
[2021-06-25] MEDS: ACETAMINOPHEN 500 MG TAB PO SCH ×3 (10:06→20:32)
[2021-06-25] MEDS: CARVedilol 3.125 MG TAB PO SCH ×2 (10:07→20:32)
[2021-06-25] MEDS: amLODIPine 5 MG TAB PO SCH (10:07)
[2021-06-25] MEDS: REMEDY PHYTOPLEX Z-GUARD PASTE 113GM TUBE (FROM STOREROOM PRODUCT) TOP SCH ×3 (10:08→20:33)
[2021-06-25] MEDS: NEXIUM 40MG CAPSULE (PATIENT'S OWN MED) PO SCH ×2 (10:09→20:35)
[2021-06-25] MEDS: hydrOXYzine 10 MG TAB PO PRN ×2 (10:54→20:31)
--- NOTE | 2021-06-25 11:58 | IPNPDOC ---
PM&R Progress Note DATE OF SERVICE: Jun 25, 2021 Critical Care Nurse Specialist Progress Note DATE OF ADMISSION: Jun 15, 2021 at 15:45 REHABILITATION DAY # 10 Chief Complaint: Abdominal pain Back and generalized pain Generalized weakness Sore throat SUBJECTIVE: This is a 66 year old female with PMH of previous opioid dependent chronic intractable pain status post anterior C4-C6 plate and screw fusion, T12 compression fracture and history of incidental finding of AAA. She is status post Posterior discectomy and placement of disc spacers,episode of bowel ischemia leading to small bowel obstruction requiring surgical intervention and placement of ileostomy approximately a year ago, who was admitted for debility status post laparoscopic lysis of adhesions, drainage of fluid collection around the ostomy and alleviation of recurrent obstruction. Pain management has been challenging as a recommendation was to avoid potential further aggravation of the chronic ileus use of opioids. Patient was noted to have escalating nausea, vomiting, any food or liquid was placed nothing by mouth 06.21.21, given Zofran, however, continued to have severe vomiting. Leukocytosis 15.3 also noted. Patient remained afebrile (on RTC Tylenol), heart rate slightly up in high 90s, output from ileostomy was noted to be scant compared to usual per the , apparently diet slowly progressed over weekend. Soft half sandwich, very small amount of intake attempted.. 06.22.2021 Today,patient was continued nothing by mouth, placed on IV fluids, blood and urine cultures obtained and put on therapy hold. I discussed the case briefly with Dr. Johnson who graciously responded from his break advised follow-up should proceed with the covering surgeon.. We proceeded with CT of the abdomen/pelvis and placement of an NGT, which drained large amounts of bilious fluid. Patient had some relief with decompression, Tylenol suppository, however, continues to have significant abdominal pain and unable to participate in therapy at this time. 06.23.2021 Brighter affect, 1400+ output via NGT overnight, IV Tylenol seemed to help reduce pain as well as addition of Reglan which may have helped improve intestinal motility, by end of day yesterday had increased bowel sounds and output from Ileostomy. Emesis has abated. Abdominal pain now down to 6 from 7-9 yesterday. Her baseline chronic pain is about 4-6. She denies recollection of CVA after endarterectomy, upon further exploration of history with and available medical records, possibly she had a TIA, no persisting hemiparesis, has had encephalopathic changes related to polypharmacy attempted to alleviate her pain. We discussed resuming routine meds with sips of water today and resuming bedside therapies to help move things along if possible. Creatinine noted to be creeping up, WBC improving down to 12. BC pending, Urine negative. 06.24.2021 patient requested pain meds overnight, apparently refused Tylenol suppository, no oral Tylenol available and morphine was provided. Patient is quite comfortable today. Pain level is down to 4, surgery and foot noted. She has been progressed to trial of liquids limping NG tube. We will continue close monitoring of CECILIA. She has resumed and tolerated therapies yesterday, has had no further episodes of emesis with sips of water and medications. Vistaril seemed to help her sleep, however, the combination of that and morphine seems to have led to a hangover effect this morning. Has noted by therapy, the patient is more unsteady and has some cognitive impairments as compared to earlier in the week.. Discussed with patient that we seem to be making progress in dressing the root cause of her pain, she is in agreement with proceeding with scheduled Oral Tylenol.and continue with various therapy modalities to see if we can increase intestinal motility and continue to manage the pain. 06.25.2021 Patient did well overnight still. Output 5 mL NG tube. However keeping down food diet with no furtheremesis.There is greater output and less gas through the ileostomy and she is able to participate in therapy. Cognition begin to clear with further medication adjustments. She notes abdominal pain level is down to a 2 but has significant sore throat. White count remains elevated at 13.4 Communicated with surgery who agrees with attempt to remove NG tube see how she does. She is increasing strength and ability to attend to various therapy modalities. REVIEW OF SYSTEMS: The following is a completed review of systems and has been reviewed. Review of systems otherwise unremarkable. PAIN: Patient less abdominal discomfort and mid and low back pain 2-510 EYES: No recent vision changes EARS, NOSE, & THROAT: No throat pain, or dysphagia, or rhinorrhea CARDIOVASCULAR: Denies chest pain or palpitations PULMONARY: Denies shortness of breath GASTROINTESTINAL: Improved output via ostomy, less abdominal cramping and pain, resolution of the severe nausea and intractable vomiting GENITOURINARY: denies dysuria MUSCULOSKELETAL: generalized weakness NEUROLOGICAL:denies paresthesias HEMATOLOGICAL: admits easy bruising SKIN: +ostomy PSYCHIATRIC: +anxiety/depression All other review of systems found to be negative. PHYSICAL EXAMINATION: VITAL SIGNS: Please see below. GENERAL: Less distress, brighter affect HEENT: PERRL. Extraocular movements intact. Clear conjunctiva, healed anterior right endarterectomy scar, No point tenderness CT region, no adenopathy, full range of motion CARDIOVASCULAR: Regular rate and rhythm. III/ SM LUNGS: Clear to auscultation bilaterally. No wheezes. No rhonchi. ABDOMEN: Soft, nontender, nondistended. Positive bowel sounds. +osotomy full with small soft formed brown stool healing LLQ laparascopy site, non tender NEUROLOGICAL: Alert and oriented. Cranial nerves II through XII grossly intact. Sensation grossly intact EXTREMITIES: 5\5 strength all four extremities. No peripheral edema SKIN: nazario-stoma site pink, no irritation. FUNCTIONAL STATUS: Patient continues to work on mobility and self-care skills, therapist working on reorientation and cognitive processing issues. Tolerating fluids, may progress to softer diet this afternoon. ASSESSMENT: -Abdominal pain status post laparoscopic peristomal hernia and ventral hernia repair with revision of ileostomy and lysis of adhesions 05/26/[address] Johnson -Status post small bowel obstruction with leukocytosis, left slight abnormalities, RVR, requiring IV beta blockade. -Recurrent Ileus, possible obstruction, under observation -Intractable vomiting improving -Status posts episode of hospital-acquired delirium, possible reactivating -Recurrent Leukocytosis. -Hypercalcemia. -Hypoalbuminemia. -Hypokalemia -MIQUEL -T12 compression fracture. -Abdominal aortic aneurysm. - Sick Sinus syndrome. -Heart Murmur -Essential tremor. -COPD -Anxiety with depression. -Hypertension. -Fibromyalgia -PMH CVA s/p R CEA This is a debilitated 66-year-old Female with past medical history of multiple abdominal surgeries who presents status post Small bowel obstruction with debility, generalized and abdominal pain, episode of intractable vomiting and generalized weakness with poor activity tolerance. Workup thus far noted for CT Abdomen Pelvis: The stomach is somewhat gas and fluid filled/mildly distended. The duodenal sweep across the midline is again seen to be collapsed. The fluid collection seen previously at the enterostomy site has decreased previously measuring approximately 6 cm today measuring approximately 2.8 cm. The loop of bowel along the right side of the fluid collection is again seen to be narrowed and having an unchanged appearance. The remainder of the imaged bowel loops are unremarkable. There is an unchanged 3.1 cm sized infrarenal abdominal aortic aneurysm. The adrenal glands, kidneys, and pancreas are unchanged. The liver and spleen are unc hanged. There is intrahepatic ductal dilatation secondary to the patient's post cholecystectomy state status quo. There is no significant change in appearance of the osseous structures. There is an unchanged grade 4 appearing T12 compression fracture. Repeat KUB 10.26.21 noted dilated loops of bowel, no free air. PLAN: 1. Rehab- PT/OT advance mobility and ADLs, strengthen/stretch/maintain ROM all 4 limbs 2. Neuro- patient with intermittent episodes of encephalopathy possible due to fluctuating electrolyte abnormalities vs infectious or polypharmacy side effects, may have some degree of cognitive impairments -refer to neurology on d/c for formal cog eval - Probable hx of TIA s/p right CEA cont secondary stroke prevention- ASA and statin 3. Cardaic- hx of Afib with PM held eliquis possible pre-op, IM monitoring on best plan given possible pre-op status, beta-reyes -HTN cont BP meds -HLD cont statin -abdominal aortic aneurysm- to be followed by PCP -medicine consulted to assist in overall management 4. Resp- monitor for infection, cont breathing treatments, singulair, and claritin for hx of COPD -s/p course of Levaquin for PNA-patient reporting new cough on 06-17-21 with interim repeat CXR negative, CT negative, lungs clear, reporting no cough, encourage incentive spirometry, cont guaifenesin 5. GI- s/p robotic assisted laparoscopic nazario-stomal hernia and ventral hernia repair with lysis of adhesions on 05-26-21 complicated by SBO, treated with NGT decompression- not tolerating trial of progression to soft diet from full liquid diet- has slowly improved with NG tube and cramping yesterday, progression to full liquids.. Will remove NGT, space out Reglan monitor cardiac function and continue slow , dietary progression. -ostomy care -on omeprazole for ppx, patient requested switch to home med, Nexium, helps reduce pain - added simethicone for gas, cont zofran prn, -Emphasizing control of GI challenges will help reduce pain-simethicone, antacids, tylenol, -Very slowly resumption of PO intake.Requested Calorie Count with Dietary. 6. Pain- patient with chronic pain with history of chronic opioid use, recommendation noted to avoid/minimize opioids as possibly contributing to patients episodes of ileus vs obstruction -cont gabapentin (was increased to 600 TID), tramadol d/c'd, but might need to resume, trial of , tylenol suppository for pain, was insufficient, had trial IV Tylenol which was helpful given limited options. Will observe for AMS, GI, electrolyte changes, the trial of small dose Vistaril helped reduce anxiety/pain component however difficult to fully asses as MS also given overnight. We will proceed with Tylenol and very careful trial resuming Tramadol with observation for confusion/AMS. 7. Psych- anxiety/depression with fibromyalgia cont Wellbutrin, trazodone, Cymbalta, DCd Trazodone, slept fine without it. 8. - cont Detrol, monitor PVRs 9. DVT ppx- ambulatory. Support hose ALLERGIES: See Below MEDICATIONS: Reviewed, see below. LABORATORY DATA: Reviewed. Please see below. MICROBIOLOGY: See below UA neg. DISPOSITION Home with TIME SPENT: Chart Review, examination and documentation 30 minutes. Allergies Coded Allergies: Penicillins (Verified Allergy, Severe, anaphylaxis, 05/18/21) pregabalin (Verified Allergy, Severe, ANAPHYLAXIS, 05/18/21) Cephalosporins (Verified Adverse Reaction, Severe, red man syndrome, 05/18/21) Vital Signs Vital Signs Date Time Temp Pulse Resp B/P (MAP) Pulse Ox O2 Delivery O2 Flow Rate FiO2 06/25/21 10:07 90 142/62 06/25/21 06:00 97.2 18 97 Room Air Microbiology Microbiology 06/22/21 Urine Culture - Final, Complete 06/22/21 Blood Culture - Preliminary, Resulted No Growth after 48 hours. All Specime... 06/22/21 Blood Culture - Preliminary, Resulted No Growth after 48 hours. All Specime... Current Medications Current Medications Current Medications Medications (Trade) Dose Ordered Sig/Nicolas Route PRN Reason Start Time Stop Time Status Last Admin Dose Admin Acetaminophen (Tylenol Suppository) 650 mg Q4HP PRN DE MILD PAIN or TEMP > 101 06/22/21 09:45 06/24/21 07:36 DC 06/22/21 14:54 Acetaminophen (Tylenol Suppository) 650 mg Q6HP PRN DE MILD PAIN or TEMP > 101 06/22/21 09:10 06/22/21 09:43 DC Acetaminophen (Tylenol Tab) 650 mg Q12HP PRN PO MILD PAIN or TEMP > 101 06/24/21 07:35 06/25/21 05:38 Acetaminophen (Tylenol Tab) 650 mg Q4HP PRN PO fever/MILD PAIN (PS 1-4) 06/15/21 14:50 06/22/21 09:55 DC 06/21/21 22:50 Acetaminophen (Tylenol Tab) 1,000 mg TID PO 06/24/21 09:00 06/25/21 10:06 Albuterol/ Ipratropium (Combivent Respimat 100-20mcg) 1 puff RTID INH 06/15/21 20:00 06/25/21 07:15 Amlodipine Besylate (Norvasc) 5 mg DAILY PO 06/16/21 09:00 06/25/21 10:07 Apixaban (Eliquis) 5 mg BID PO 06/15/21 21:00 06/22/21 10:30 DC 06/21/21 20:44 Aspirin (Ecotrin) 81 mg QHS PO 06/15/21 21:00 06/24/21 20:15 Bupropion HCl (Wellbutrin Xl) 150 mg DAILY PO 06/16/21 09:00 06/25/21 10:05 Carvedilol (COReg) 3.125 mg BID PO 06/15/21 21:00 06/25/21 10:07 Dextrose/Sodium Chloride 1,000 ml @ 100 mls/hr Q10H IV 06/22/21 17:20 06/24/21 10:29 DC 06/24/21 08:21 Docusate Sodium (Colace) 100 mg BID PO 06/15/21 21:00 06/25/21 10:05 Duloxetine HCl (Cymbalta) 60 mg DAILY PO 06/16/21 09:00 06/25/21 10:05 Fluticasone Propionate (Flovent Hfa 110 Mcg) 2 puff BID INH 06/15/21 21:00 06/25/21 07:15 Folic Acid (Folic Acid) 1 mg DAILY PO 06/16/21 09:00 06/25/21 10:04 Gabapentin (Neurontin) 300 mg BID@0900,1800 PO 06/15/21 18:00 06/18/21 12:51 DC 06/18/21 09:12 Gabapentin (Neurontin) 600 mg QHS PO 06/15/21 21:00 06/18/21 12:51 DC 06/17/21 20:57 Gabapentin (Neurontin) 600 mg TID@0900,1800,2100 PO 06/18/21 18:00 06/25/21 10:04 Guaifenesin (Robitussin Tab) 400 mg TID PO 06/17/21 16:00 06/25/21 10:05 Hydroxyzine HCl (Atarax) 10 mg Q12H PRN PO ANXIETY OR INSOMNIA 06/24/21 11:35 06/25/21 10:54 Hydroxyzine HCl (Atarax) 10 mg Q6HP PRN PO ANXIETY/AGITATION 06/23/21 14:45 06/24/21 11:35 DC 06/23/21 22:12 Lactated Ringer's 1,000 ml @ 125 mls/hr Q8H IV 06/22/21 09:05 06/22/21 17:18 DC 06/22/21 09:44 Lidocaine (Lidoderm Patch) 1 patch DAILY TD 06/22/21 09:00 06/25/21 10:04 Loratadine (Claritin) 10 mg DAILY PO 06/16/21 09:00 06/25/21 10:05 Metoclopramide HCl (REGLAN INJection) 10 mg Q6H IV 06/22/21 15:00 06/25/21 11:41 DC 06/25/21 10:04 Metoclopramide HCl (REGLAN INJection) 10 mg Q8H IV 06/25/21 17:00 Montelukast Sodium (Singulair) 10 mg QHS PO 06/15/21 21:00 06/24/21 20:15 Morphine Sulfate (Morphine Sulfate Inj) 2 mg Q4HP PRN IV MODERATE PAIN (PS 5-7) 06/23/21 22:35 06/24/21 07:36 DC 06/24/21 03:58 Non-Formulary Medication ( See Comment Field Below ) REMOVE LIDODERM PATCH DAILY@21 XX 06/22/21 21:00 06/24/21 20:17 Ondansetron HCl (Zofran Odt) 4 mg Q6HP PRN PO NAUSEA OR VOMITING 06/15/21 14:50 06/22/21 08:08 Pantoprazole Sodium (Protonix) 40 mg DAILY PO 06/16/21 09:00 06/25/21 10:04 Patient Own Medication (Patient'S Own Med) Nexium 40mg BID home med BID PO 06/23/21 09:00 06/25/21 10:09 Phenol (Chloraseptic Pattison) 1 spray Q2HP PRN MT SORE THROAT 06/23/21 05:55 06/25/21 05:39 Potassium Chloride (Micro-K Extencaps) 10 meq DAILY PO 06/24/21 09:00 06/25/21 10:04 Potassium Chloride (Micro-K Extencaps) 20 meq DAILY PO 06/16/21 09:00 06/23/21 14:43 DC 06/23/21 09:24 Prochlorperazine (Compazine) 5 mg Q4HP PRN PO NAUSEA OR VOMITING 06/19/21 21:05 06/25/21 05:38 Rosuvastatin Calcium (Crestor) 10 mg QHS PO 06/15/21 21:00 06/24/21 20:15 Senna (Senokot) 1 tab QHS PO 06/15/21 21:00 06/24/21 20:15 Simethicone (Mylicon) 80 mg 0800,1400 PO 06/19/21 14:00 06/25/21 10:04 Tolterodine Tartrate (Detrol La) 4 mg DAILY PO 06/16/21 09:00 06/25/21 10:05 Tramadol HCl (Ultram) 25 mg Q8HP PRN PO MODERATE PAIN (PS >7/10) 06/16/21 12:00 06/17/21 13:22 DC 06/17/21 09:54 Trazodone HCl (Desyrel) 25 mg QHS PO 06/19/21 21:00 06/22/21 21:34 DC 06/21/21 20:44 Trazodone HCl (Desyrel) 25 mg QHSP PRN PO INSOMNIA 06/19/21 20:45 Cancel CAIN FERNANDEZ MD Jun 25, 2021 11:58
[2021-06-25 14:00] VITALS: BP 131/67
--- NOTE | 2021-06-25 15:09 | IPNPDOC ---
Text Note Date of Service The patient was seen on 06/25/21. NOTE Patient was seen and examined . She has had a good improvement and currently has been tolerating soft diet. Her NG tube output is extremely low and ileostomy output is good. She also denies any nausea. Physical examination General: Lying in bed, no acute distress, comfortable, AAOx3, NG tube in place HEENT: No icterus no pallor CVS: +S1S2, Lungs: Fair air entry bilaterally no wheezing no rhonchi no rails Abdomen: Soft, ND, NT, +ostomy w/ dark brown semisolid stool present, surgical dressing is also clean Extremities: No edema no calf tenderness Imaging reviewed. Assessment and plan: Patient is a 66-year-old female with a PMHx of Ischemic bowel / Recurrent SBO s/p Ileostomy, who presented to the emergency room with complaints of abdominal pain. Patient was found to have small bowel structure on 06/07 and was admitted to the surgical service. Patient was transitioned to acute rehabilitation on 06/15. Hospital services been consulted for medical comanagement. 1. abdominal pain secondary to SBO: The patient has been followed by surgery and currently the patient's NG tube has been clamped and the patient has been tolerating clear liquid and soft diet. The patient has had no vomiting since morning and ileostomy output is also good. The patient has good bowel sounds and the oral medications also have been restarted. Continue serial abdominal exams 2. Hypokalemia. Would continue to monitor and replace. 3. S/p Acute metabolic encephalopathy . Improved and the patient is at her baseline. Possibly 2/2 delirium 2/2 acute illness / hospitalization . Currently oriented to person/place/time. We will continue to monitor. 4. HTN. c/w Amlodipine / Carvedilol. 5. Chronic COPD. At baseline no evidence of exacerbation. 6. Paroxysmal atrial fibrillation. c/w Carvedilol. Eliquis will be restarted today as she has been tolerating the diet and it does not seem like that there is any need of surgery at this point. Her hemoglobin is also stable GI prophylaxis Disposition unknown at this time. VS,Fishbone, I+O VS, Fishbone, I+O Vital Signs Date Time Temp Pulse Resp B/P (MAP) Pulse Ox O2 Delivery O2 Flow Rate FiO2 06/25/21 14:00 97.7 79 18 131/67 (88) 90 Room Air I&O- Last 24 Hours up to 6 AM 06/25/21 05:59 Intake Total 580 ml Output Total 375 ml Balance 205 ml MARIPOSA CARRION MD Jun 25, 2021 15:09
[2021-06-25 20:00] VITALS: BP 122/72
[2021-06-25] MEDS: MONTELUKAST 10 MG TAB PO SCH (20:31)
[2021-06-25] MEDS: ROSUVASTATIN 10 MG TAB (CRESTOR) PO SCH (20:31)
[2021-06-25] MEDS: SENNA 8.6 MG TAB (SENOKOT) PO SCH (20:31)
[2021-06-25] MEDS: APIXABAN 5 MG TAB (ELIQUIS) PO SCH (20:31)
[2021-06-25] MEDS: ASPIRIN 81MG ENTERIC TABLET PO SCH (20:31)
[2021-06-26] MEDS: METOCLOPRAMIDE INJ 10MG/2ML VIAL (J2765 PER 1) IV SCH ×3 (00:39→17:18)
[2021-06-26 06:00] VITALS: BP 130/61
[2021-06-26] MEDS: COMBIVENT RESPIMAT 100-20MCG INHALER 4GM INH SCH ×3 (07:23→20:23)
[2021-06-26] MEDS: FLUTICASONE HFA 110 MCG 12 GM INHALER (FLOVENT) INH SCH ×2 (07:23→20:23)
[2021-06-26] MEDS: NEXIUM 40MG CAPSULE (PATIENT'S OWN MED) PO SCH ×2 (09:25→20:34)
[2021-06-26] MEDS: PROCHLORPERAZINE 5 MG TAB (S0183) PO PRN ×2 (09:25→17:24)
[2021-06-26] MEDS: TOLTERODINE TARTRATE 2 MG LA CAP (DETROL LA) PO SCH (09:25)
[2021-06-26] MEDS: LORATADINE 10 MG TAB PO SCH (09:26)
[2021-06-26] MEDS: SIMETHICONE 80MG CHEW TAB PO SCH ×2 (09:26→15:11)
[2021-06-26] MEDS: DULoxetine 30MG CAPSULE (CYMBALTA) PO SCH (09:26)
[2021-06-26] MEDS: GABAPENTIN 300 MG CAP PO SCH ×3 (09:26→20:31)
[2021-06-26] MEDS: amLODIPine 5 MG TAB PO SCH (09:26)
[2021-06-26] MEDS: CARVedilol 3.125 MG TAB PO SCH ×2 (09:26→20:32)
[2021-06-26] MEDS: FOLIC ACID 1 MG TAB PO SCH (09:27)
[2021-06-26] MEDS: POTASSIUM CHLORIDE 10MEQ SR TABLET PO SCH (09:27)
[2021-06-26] MEDS: APIXABAN 5 MG TAB (ELIQUIS) PO SCH ×2 (09:27→20:33)
[2021-06-26] MEDS: DOCUSATE SODIUM 100MG CAPSULE PO SCH ×2 (09:27→20:31)
[2021-06-26] MEDS: PANTOPRAZOLE 40MG TAB (PROTONIX) PO SCH (09:27)
[2021-06-26] MEDS: guaiFENesin 200 MG TAB PO SCH ×3 (09:28→20:30)
[2021-06-26] MEDS: buPROPion **XL** TABLET 150MG (WELLBUTRIN XL) PO SCH (09:28)
[2021-06-26] MEDS: ACETAMINOPHEN 500 MG TAB PO SCH ×3 (09:29→20:31)
[2021-06-26] MEDS: LIDOCAINE 5% (LIDODERM) PATCH TD SCH (09:30)
[2021-06-26] MEDS: REMEDY PHYTOPLEX Z-GUARD PASTE 113GM TUBE (FROM STOREROOM PRODUCT) TOP SCH ×3 (09:30→20:35)
--- NOTE | 2021-06-26 09:55 | IPNPDOC ---
PM&R Progress Note DATE OF SERVICE: Jun 26, 2021 Extension Agent Progress Note DATE OF ADMISSION: Jun 15, 2021 at 15:45 REHABILITATION DAY # 11 Chief Complaint: Abdominal pain Back and generalized pain Generalized weakness Sore throat SUBJECTIVE: This is a 66 year old female with PMH of previous opioid dependent chronic intractable pain status post anterior C4-C6 plate and screw fusion, T12 compression fracture and history of incidental finding of AAA. She is status post Posterior discectomy and placement of disc spacers,episode of bowel ischemia leading to small bowel obstruction requiring surgical intervention and placement of ileostomy approximately a year ago, who was admitted for debility status post laparoscopic lysis of adhesions, drainage of fluid collection around the ostomy and alleviation of recurrent obstruction. Pain management has been challenging as a recommendation was to avoid potential further aggravation of the chronic ileus use of opioids, coming under better control as we reduce gas and possible subsequent obstruction with conservative measures, Reglan Q6 IV, intermittent NGT, NPO progressing to liquids mid week, tolerating with no further emesis.. Leukocytosis 15.3 earlier this week now down to 13, mild fever this morning at 99 and heart rate has been up. 10. Today, patient was continued nothing by mouth, placed on IV fluids, blood and urine cultures obtained and put on therapy hold. I discussed the case briefly with Dr. Johnson who graciously responded from his break advised follow-up should proceed with the covering surgeon.. We proceeded with CT of the abdomen/pelvis and placement of an NGT, which drained large amounts of bilious fluid. Patient had some relief with decompression, Tylenol suppository, however, continues to have significant abdominal pain and unable to participate in therapy at this time. 06.23.2021 Brighter affect, 1400+ output via NGT overnight, IV Tylenol seemed to help reduce pain as well as addition of Reglan which may have helped improve intestinal motility, by end of day yesterday had increased bowel sounds and output from Ileostomy. Emesis has abated. Abdominal pain now down to 6 from 7-9 yesterday. Her baseline chronic pain is about 4-6. She denies recollection of CVA after endarterectomy, upon further exploration of history with and available medical records, possibly she had a TIA, no persisting hemiparesis, has had encephalopathic changes related to polypharmacy attempted to alleviate her pain. We discussed resuming routine meds with sips of water today and resuming bedside therapies to help move things along if possible. Creatinine noted to be creeping up, WBC improving down to 12. BC pending, Urine negative. 06.24.2021 patient requested pain meds overnight, apparently refused Tylenol suppository, no oral Tylenol available and morphine was provided. Patient is quite comfortable today. Pain level is down to 4, surgery and foot noted. She has been progressed to trial of liquids limping NG tube. We will continue close monitoring of CECILIA. She has resumed and tolerated therapies yesterday, has had no further episodes of emesis with sips of water and medications. Vistaril seemed to help her sleep, however, the combination of that and morphine seems to have led to a hangover effect this morning. Has noted by therapy, the patient is more unsteady and has some cognitive impairments as compared to earlier in the week.. Discussed with patient that we seem to be making progress in dressing the root cause of her pain, she is in agreement with proceeding with scheduled Oral Tylenol.and continue with various therapy modalities to see if we can increase intestinal motility and continue to manage the pain. 06.25.2021 Patient did well overnight still. Output 500 mL NG tube. However keeping down food diet with no further emesis.There is greater output and less gas through the ileostomy and she is able to participate in therapy. Cognition begin to clear with further medication adjustments. She notes abdominal pain level is down to a 2 but has significant sore throat. White count remains elevated at 13.4 Communicated with surgery who agrees with attempt to remove NG tube see how she does. She is increasing strength and ability to attend to various therapy modalities. 06.26.2021 Slept well overnight, reduced Vistaril as and nursing noted AMS/owning, pain much better controlled 2 today. Ileostomy blew out last night, so putting out well, still some gas. Have spaced out Reglan to Q8. No further emesis and steady urine output. REVIEW OF SYSTEMS: The following is a completed review of systems and has been reviewed. Review of systems otherwise unremarkable. PAIN: Patient less abdominal discomfort and mid and low back pain 2-5/10 EYES: No recent vision changes EARS, NOSE, & THROAT: throat pain worse with swallowing, no dysphagia, or rhinorrhea CARDIOVASCULAR: Denies chest pain or palpitations PULMONARY: Denies shortness of breath GASTROINTESTINAL: Improved output via ostomy, less abdominal cramping and pain, resolution of the severe nausea and intractable vomiting GENITOURINARY: denies dysuria MUSCULOSKELETAL: generalized weakness NEUROLOGICAL:denies paresthesias HEMATOLOGICAL: admits easy bruising SKIN: +ostomy PSYCHIATRIC: +anxiety/depression All other review of systems found to be negative. PHYSICAL EXAMINATION: VITAL SIGNS: Please see below. GENERAL: Less distress, brighter affect HEENT: PERRL. Extraocular movements intact. Clear conjunctiva, healed anterior right endarterectomy scar, No point tenderness CT region, no adenopathy, full range of motion, throat injected (also eating mass quantities of red jello) CARDIOVASCULAR: Regular rate and rhythm. III/ SM LUNGS: Clear to auscultation bilaterally. No wheezes. No rhonchi. ABDOMEN: Soft, nontender, nondistended. Positive bowel sounds. +osotomy full with small soft formed brown stool healing LLQ laparascopy site, non tender NEUROLOGICAL: Alert and oriented. Cranial nerves II through XII grossly intact. Sensation grossly intact EXTREMITIES: 5\5 strength all four extremities. No peripheral edema SKIN: nazario-stoma site pink, no irritation. FUNCTIONAL STATUS: Patient continues to work on mobility and self-care skills, therapist working on reorientation and cognitive processing issues. Tolerating fluids, will progress to softer diet discussed with dietary ASSESSMENT: -Abdominal pain status post laparoscopic peristomal hernia and ventral hernia repair with revision of ileostomy and lysis of adhesions 05/26/[address] Johnson -Status post small bowel obstruction with leukocytosis, left slight abnormalities, RVR, requiring IV beta blockade. -Recurrent Ileus, possible re-obstruction, appears to be releasing, under observation -Intractable vomiting improving -Status posts episode of hospital-acquired delirium, possible reactivating, improving with reduced pain and anxiety meds -Recurrent Leukocytosis, intermittent low grade fever (on regular Tylenol could be masking) -Hypercalcemia. -Hypoalbuminemia. -Hypokalemia -MIQUEL -T12 compression fracture. -Abdominal aortic aneurysm. - Sick Sinus syndrome. -Heart Murmur -Essential tremor. -COPD -Anxiety with depression. -Hypertension. -Fibromyalgia -PMH CVA s/p R CEA This is a debilitated 66-year-old Female with past medical history of multiple abdominal surgeries who presents status post Small bowel obstruction with debility, generalized and abdominal pain, episode of intractable vomiting and generalized weakness with poor activity tolerance. Workup thus far noted for CT Abdomen Pelvis: The stomach is somewhat gas and fluid filled/mildly distended. The duodenal sweep across the midline is again seen to be collapsed. The fluid collection seen previously at the enterostomy site has decreased previously measuring approximately 6 cm today measuring approximately 2.8 cm. The loop of bowel along the right side of the fluid collection is again seen to be narrowed and having an unchanged appearance. The remainder of the imaged bowel loops are unremarkable. There is an unchanged 3.1 cm sized infrarenal abdominal aortic aneurysm. The adrenal glands, kidneys, and pancreas are unchanged. The liver and spleen are unchanged. There is intrahepatic ductal dilatation secondary to the patient's post cholecystectomy state status quo. There is no significant change in appearance of the osseous structures. There is an unchanged grade 4 appearing T12 compression fracture. Repeat KUB 10.26.21 noted dilated loops of bowel, no free air. PLAN: 1. Rehab- PT/OT advance mobility and ADLs, strengthen/stretch/maintain ROM all 4 limbs 2. Neuro- patient with intermittent episodes of encephalopathy possible due to fluctuating electrolyte abnormalities vs infectious or polypharmacy side effects, may have some degree of cognitive impairments, patient and deny knowledge of prior CVA -refer to neurology on d/c for formal cog eval - Probable hx of TIA s/p right CEA cont secondary stroke prevention- ASA and statin 3. Cardaic- hx of Afib with PM held eliquis possible pre-op, IM monitoring on best plan given possible pre-op status, beta-reyes -HTN cont BP meds -HLD cont statin -abdominal aortic aneurysm- to be followed by PCP -medicine consulted to assist in overall management 4. Resp- monitor for infection, cont breathing treatments, singulair, and claritin for hx of COPD -s/p course of Levaquin for PNA-patient reporting new cough on 06-17-21 with interim repeat CXR negative, CT negative, lungs clear, reporting no cough, encourage incentive spirometry, cont guaifenesin 5. GI- s/p robotic assisted laparoscopic nazario-stomal hernia and ventral hernia repair with lysis of adhesions on 05-26-21 complicated by SBO, treated with NGT decompression- was not tolerating trial of progression to soft diet from full liquid diet- has slowly improved with NPO/ NG tube earlier this week and subsequentprogression to D/C NGT progress to full liquids, soft diet today goal regular diet next week. -ostomy care - patient requested switch to home med, Nexium, helps reduce pain - added simethicone for gas, cont zofran prn, -Emphasizing control of GI challenges will help reduce pain-simethicone, antacids, tylenol, - Calorie Count with Dietary. -Warm saline gargle and continue chloraseptic for sore throat 6. Pain- patient with chronic pain with history of chronic opioid use, recommendation noted to avoid/minimize opioids as possibly contributing to patients episodes of ileus vs obstruction -cont gabapentin (was increased to 600 TID), tramadol d/c'd, but might need to resume We will proceed with Tylenol 7. Psych- anxiety/depression with fibromyalgia cont Wellbutrin, trazodone, Cymbalta, DCd Trazodone, slept fine without it. 8. - cont Detrol, monitor PVRs 9. DVT ppx- ambulatory. Support hose ALLERGIES: See Below MEDICATIONS: Reviewed, see below. LABORATORY DATA: Reviewed. Please see below. MICROBIOLOGY: See below UA neg. DISPOSITION Home with TIME SPENT: Chart Review, examination and documentation 30 minutes. Allergies Coded Allergies: Penicillins (Verified Allergy, Severe, anaphylaxis, 05/18/21) pregabalin (Verified Allergy, Severe, ANAPHYLAXIS, 05/18/21) Cephalosporins (Verified Adverse Reaction, Severe, red man syndrome, 05/18/21) Vital Signs Vital Signs Date Time Temp Pulse Resp B/P (MAP) Pulse Ox O2 Delivery O2 Flow Rate FiO2 06/26/21 09:26 78 130/61 06/26/21 06:00 99.1 18 94 Room Air Microbiology Microbiology 06/22/21 Urine Culture - Final, Complete 06/22/21 Blood Culture - Preliminary, Resulted No Growth after 72 hours. All specime... 06/22/21 Blood Culture - Preliminary, Resulted No Growth after 72 hours. All specime... Current Medications Current Medications Current Medications Medications (Trade) Dose Ordered Sig/Nicolas Route PRN Reason Start Time Stop Time Status Last Admin Dose Admin Acetaminophen (Tylenol Suppository) 650 mg Q4HP PRN [place] MILD PAIN or TEMP > 101 06/22/21 09:45 06/24/21 07:36 DC 06/22/21 14:54 Acetaminophen (Tylenol Suppository) 650 mg Q6HP PRN [place] MILD PAIN or TEMP > 101 06/22/21 09:10 06/22/21 09:43 DC Acetaminophen (Tylenol Tab) 650 mg Q12HP PRN PO MILD PAIN or TEMP > 101 06/24/21 07:35 06/25/21 05:38 Acetaminophen (Tylenol Tab) 650 mg Q4HP PRN PO fever/MILD PAIN (PS 1-4) 06/15/21 14:50 06/22/21 09:55 DC 06/21/21 22:50 Acetaminophen (Tylenol Tab) 1,000 mg TID PO 06/24/21 09:00 06/26/21 09:29 Albuterol/ Ipratropium (Combivent Respimat 100-20mcg) 1 puff RTID INH 06/15/21 20:00 06/26/21 07:23 Amlodipine Besylate (Norvasc) 5 mg DAILY PO 06/16/21 09:00 06/26/21 09:26 Apixaban (Eliquis) 5 mg BID PO 06/15/21 21:00 06/22/21 10:30 DC 06/21/21 20:44 Apixaban (Eliquis) 5 mg BID PO 06/25/21 21:00 06/26/21 09:27 Aspirin (Ecotrin) 81 mg QHS PO 06/15/21 21:00 06/25/21 20:31 Bupropion HCl (Wellbutrin Xl) 150 mg DAILY PO 06/16/21 09:00 06/26/21 09:28 Carvedilol (COReg) 3.125 mg BID PO 06/15/21 21:00 06/26/21 09:26 Dextrose/Sodium Chloride 1,000 ml @ 100 mls/hr Q10H IV 06/22/21 17:20 06/24/21 10:29 DC 06/24/21 08:21 Docusate Sodium (Colace) 100 mg BID PO 06/15/21 21:00 06/26/21 09:27 Duloxetine HCl (Cymbalta) 60 mg DAILY PO 06/16/21 09:00 06/26/21 09:26 Fluticasone Propionate (Flovent Hfa 110 Mcg) 2 puff BID INH 06/15/21 21:00 06/26/21 07:23 Folic Acid (Folic Acid) 1 mg DAILY PO 06/16/21 09:00 06/26/21 09:27 Gabapentin (Neurontin) 300 mg BID@0900,1800 PO 06/15/21 18:00 06/18/21 12:51 DC 06/18/21 09:12 Gabapentin (Neurontin) 600 mg QHS PO 06/15/21 21:00 06/18/21 12:51 DC 06/17/21 20:57 Gabapentin (Neurontin) 600 mg TID@0900,1800,2100 PO 06/18/21 18:00 06/26/21 09:26 Guaifenesin (Robitussin Tab) 400 mg TID PO 06/17/21 16:00 06/26/21 09:28 Hydroxyzine HCl (Atarax) 10 mg DAILYPRN PRN PO ANXIETY OR INSOMNIA 06/26/21 20:00 Hydroxyzine HCl (Atarax) 10 mg Q12H PRN PO ANXIETY OR INSOMNIA 06/24/21 11:35 06/26/21 07:25 DC 06/25/21 20:31 Hydroxyzine HCl (Atarax) 10 mg Q6HP PRN PO ANXIETY/AGITATION 06/23/21 14:45 06/24/21 11:35 DC 06/23/21 22:12 Lactated Ringer's 1,000 ml @ 125 mls/hr Q8H IV 06/22/21 09:05 06/22/21 17:18 DC 06/22/21 09:44 Lidocaine (Lidoderm Patch) 1 patch DAILY TD 06/22/21 09:00 06/26/21 09:30 Loratadine (Claritin) 10 mg DAILY PO 06/16/21 09:00 06/26/21 09:26 Metoclopramide HCl (REGLAN INJection) 10 mg Q6H IV 06/22/21 15:00 06/25/21 11:41 DC 06/25/21 10:04 Metoclopramide HCl (REGLAN INJection) 10 mg Q8H IV 06/25/21 17:00 06/26/21 09:29 Montelukast Sodium (Singulair) 10 mg QHS PO 06/15/21 21:00 06/25/21 20:31 Morphine Sulfate (Morphine Sulfate Inj) 2 mg Q4HP PRN IV MODERATE PAIN (PS 5-7) 06/23/21 22:35 06/24/21 07:36 DC 06/24/21 03:58 Non-Formulary Medication ( See Comment Field Below ) REMOVE LIDODERM PATCH DAILY@21 XX 06/22/21 21:00 06/25/21 20:33 Ondansetron HCl (Zofran Odt) 4 mg Q6HP PRN PO NAUSEA OR VOMITING 06/15/21 14:50 06/22/21 08:08 Pantoprazole Sodium (Protonix) 40 mg DAILY PO 06/16/21 09:00 06/26/21 09:27 Patient Own Medication (Patient'S Own Med) Nexium 40mg BID home med BID PO 06/23/21 09:00 06/26/21 09:25 Phenol (Chloraseptic [place]) 1 spray Q2HP PRN [place] SORE THROAT 06/23/21 05:55 06/25/21 05:39 Potassium Chloride (Micro-K Extencaps) 10 meq DAILY PO 06/24/21 09:00 06/26/21 09:27 Potassium Chloride (Micro-K Extencaps) 20 meq DAILY PO 06/16/21 09:00 06/23/21 14:43 DC 06/23/21 09:24 Prochlorperazine (Compazine) 5 mg Q4HP PRN PO NAUSEA OR VOMITING 06/19/21 21:05 06/26/21 09:25 Rosuvastatin Calcium (Crestor) 10 mg QHS PO 06/15/21 21:00 06/25/21 20:31 Senna (Senokot) 1 tab QHS PO 06/15/21 21:00 06/25/21 20:31 Silver Sulfadiazine (Silvadene 1%) Q2D TOP 06/25/21 09:00 06/25/21 15:42 DC Simethicone (Mylicon) 80 mg 0800,1400 PO 06/19/21 14:00 06/26/21 09:26 Tolterodine Tartrate (Detrol La) 4 mg DAILY PO 06/16/21 09:00 06/26/21 09:25 Tramadol HCl (Ultram) 25 mg Q8HP PRN PO MODERATE PAIN (PS >7/10) 06/16/21 12:00 06/17/21 13:22 DC 06/17/21 09:54 Trazodone HCl (Desyrel) 25 mg QHS PO 06/19/21 21:00 06/22/21 21:34 DC 06/21/21 20:44 Trazodone HCl (Desyrel) 25 mg QHSP PRN PO INSOMNIA 06/19/21 20:45 CAIN Le MD Jun 26, 2021 09:55
[2021-06-26 14:00] VITALS: BP 108/57
[2021-06-26] MEDS: CYANOCOBALAMIN 500 MCG TAB PO SCH (15:11)
[2021-06-26 20:00] VITALS: BP 145/69
[2021-06-26] MEDS: MONTELUKAST 10 MG TAB PO SCH (20:32)
[2021-06-26] MEDS: hydrOXYzine 10 MG TAB PO PRN (20:33)
[2021-06-26] MEDS: ROSUVASTATIN 10 MG TAB (CRESTOR) PO SCH (20:33)
[2021-06-26] MEDS: SENNA 8.6 MG TAB (SENOKOT) PO SCH (20:33)
[2021-06-26] MEDS: ASPIRIN 81MG ENTERIC TABLET PO SCH (20:33)
[2021-06-27] MEDS: METOCLOPRAMIDE INJ 10MG/2ML VIAL (J2765 PER 1) IV SCH ×3 (00:31→17:11)
[2021-06-27 06:00] VITALS: BP 139/71
[2021-06-27] MEDS: FLUTICASONE HFA 110 MCG 12 GM INHALER (FLOVENT) INH SCH ×2 (07:33→21:00)
[2021-06-27] MEDS: COMBIVENT RESPIMAT 100-20MCG INHALER 4GM INH SCH ×3 (07:33→20:00)
[2021-06-27] MEDS: GABAPENTIN 300 MG CAP PO SCH ×3 (08:53→20:17)
[2021-06-27] MEDS: POTASSIUM CHLORIDE 10MEQ SR TABLET PO SCH (08:53)
[2021-06-27] MEDS: SIMETHICONE 80MG CHEW TAB PO SCH ×2 (08:53→13:58)
[2021-06-27] MEDS: TOLTERODINE TARTRATE 2 MG LA CAP (DETROL LA) PO SCH (08:54)
[2021-06-27] MEDS: PANTOPRAZOLE 40MG TAB (PROTONIX) PO SCH (08:54)
[2021-06-27] MEDS: guaiFENesin 200 MG TAB PO SCH ×3 (08:54→20:17)
[2021-06-27] MEDS: CYANOCOBALAMIN 500 MCG TAB PO SCH (08:54)
[2021-06-27] MEDS: FOLIC ACID 1 MG TAB PO SCH (08:54)
[2021-06-27] MEDS: DOCUSATE SODIUM 100MG CAPSULE PO SCH ×2 (08:54→20:17)
[2021-06-27] MEDS: DULoxetine 30MG CAPSULE (CYMBALTA) PO SCH (08:55)
[2021-06-27] MEDS: buPROPion **XL** TABLET 150MG (WELLBUTRIN XL) PO SCH (08:55)
[2021-06-27] MEDS: APIXABAN 5 MG TAB (ELIQUIS) PO SCH ×2 (08:55→20:18)
[2021-06-27] MEDS: ACETAMINOPHEN 500 MG TAB PO SCH ×3 (08:55→20:18)
[2021-06-27] MEDS: LORATADINE 10 MG TAB PO SCH (08:55)
[2021-06-27] MEDS: CARVedilol 3.125 MG TAB PO SCH ×2 (08:56→20:19)
[2021-06-27] MEDS: amLODIPine 5 MG TAB PO SCH (08:56)
[2021-06-27] MEDS: REMEDY PHYTOPLEX Z-GUARD PASTE 113GM TUBE (FROM STOREROOM PRODUCT) TOP SCH ×3 (08:57→20:25)
[2021-06-27] MEDS: LIDOCAINE 5% (LIDODERM) PATCH TD SCH (08:57)
[2021-06-27] MEDS: NEXIUM 40MG CAPSULE (PATIENT'S OWN MED) PO SCH ×2 (08:57→20:20)
[2021-06-27] MEDS: hydrOXYzine 10 MG TAB PO PRN (12:14)
--- NOTE | 2021-06-27 13:28 | IPN ---
PROGRESS NOTE DATE: 06/27/2021 HISTORY: Patient had undergone repair of a parastomal and ventral hernia using robotic-assisted laparoscopic techniques back on May 26. She presented with a bowel obstruction on June 07. At that time the obstruction appeared to lie in the distal ilium, where the bowel went beneath the overlying mesh for repair of her hernia. She was decompressed with a nasogastric tube for several days, and her symptoms remitted. She was gradually advanced back onto a diet with clear liquids and then full liquids. She was subsequently transferred to the acute rehabilitation unit, given some generalized weakness. She was transferred to the rehabilitation unit on June 15. She appeared to be making appropriate progress, but on or about June 22 she developed some abdominal distention with nausea and vomiting. A CT scan at that time showed an obstruction that appeared to lie at the level of the third portion of the duodenum. Her stomach and proximal duodenum were quite distended and full, but there was no evidence of obstruction at the previous site of blockage. A nasogastric tube was placed. This has now been removed several days ago, and she is back on a diet. Vital signs show that she has been afebrile over the past 24 hours. Her pulse is in the 70s and 80s, and her blood pressure is good. Intake and output show that she had 600 mL in recorded yesterday with two voids and some stool from her ostomy. PHYSICAL EXAMINATION: Patient is sitting up eating some fruit. She is looking quite perky. She is alert, oriented, and appears comfortable. She reports that her ostomy is working fine. LABORATORY STUDIES: There are no new labs since June 24. IMPRESSION: Patient appears to be doing well and appears to have regained some strength. She reports that she is eating well and having good bowel function from her stoma. RECOMMENDATIONS: At this point, I believe she can be discharged whenever she has satisfied her need for rehabilitation. She should probably followup in my office several weeks after discharge. ED
[2021-06-27 14:07] VITALS: BP 154/75
[2021-06-27 20:00] VITALS: BP 150/67
[2021-06-27] MEDS ORDERED: ANALGESIC BALM CRM 3OZ TOP PRN (20:00)
[2021-06-27] MEDS: ROSUVASTATIN 10 MG TAB (CRESTOR) PO SCH (20:18)
[2021-06-27] MEDS: ASPIRIN 81MG ENTERIC TABLET PO SCH (20:18)
[2021-06-27] MEDS: SENNA 8.6 MG TAB (SENOKOT) PO SCH (20:19)
[2021-06-27] MEDS: MONTELUKAST 10 MG TAB PO SCH (20:19)
[2021-06-28] MEDS: METOCLOPRAMIDE INJ 10MG/2ML VIAL (J2765 PER 1) IV SCH ×2 (00:50→08:12)
[2021-06-28 06:00] VITALS: BP 140/88
[2021-06-28] MEDS: COMBIVENT RESPIMAT 100-20MCG INHALER 4GM INH SCH ×2 (07:23→14:00)
[2021-06-28] MEDS: FLUTICASONE HFA 110 MCG 12 GM INHALER (FLOVENT) INH SCH (07:24)
[2021-06-28] MEDS: SIMETHICONE 80MG CHEW TAB PO SCH ×2 (08:12→14:14)
[2021-06-28] MEDS: LIDOCAINE 5% (LIDODERM) PATCH TD SCH (08:12)
[2021-06-28] MEDS: NEXIUM 40MG CAPSULE (PATIENT'S OWN MED) PO SCH ×2 (08:12→21:42)
[2021-06-28] MEDS: CYANOCOBALAMIN 500 MCG TAB PO SCH (08:12)
[2021-06-28] MEDS: DULoxetine 30MG CAPSULE (CYMBALTA) PO SCH (08:12)
[2021-06-28] MEDS: DOCUSATE SODIUM 100MG CAPSULE PO SCH ×2 (08:13→21:43)
[2021-06-28] MEDS: TOLTERODINE TARTRATE 2 MG LA CAP (DETROL LA) PO SCH (08:13)
[2021-06-28] MEDS: GABAPENTIN 300 MG CAP PO SCH ×3 (08:13→21:43)
[2021-06-28] MEDS: POTASSIUM CHLORIDE 10MEQ SR TABLET PO SCH (08:13)
[2021-06-28] MEDS: CARVedilol 3.125 MG TAB PO SCH ×2 (08:13→21:45)
[2021-06-28] MEDS: ACETAMINOPHEN 500 MG TAB PO SCH ×3 (08:14→21:44)
[2021-06-28] MEDS: PANTOPRAZOLE 40MG TAB (PROTONIX) PO SCH (08:15)
[2021-06-28] MEDS: APIXABAN 5 MG TAB (ELIQUIS) PO SCH ×2 (08:15→21:44)
[2021-06-28] MEDS: buPROPion **XL** TABLET 150MG (WELLBUTRIN XL) PO SCH (08:15)
[2021-06-28] MEDS: amLODIPine 5 MG TAB PO SCH (08:15)
[2021-06-28] MEDS: guaiFENesin 200 MG TAB PO SCH ×3 (08:15→21:43)
[2021-06-28] MEDS: LORATADINE 10 MG TAB PO SCH (08:15)
[2021-06-28] MEDS: FOLIC ACID 1 MG TAB PO SCH (08:15)
[2021-06-28] MEDS: REMEDY PHYTOPLEX Z-GUARD PASTE 113GM TUBE (FROM STOREROOM PRODUCT) TOP SCH ×3 (08:16→21:00)
[2021-06-28 13:57] VITALS: BP 144/65
[2021-06-28] MEDS: PROCHLORPERAZINE 5 MG TAB (S0183) PO PRN ×2 (18:20→22:20)
[2021-06-28 19:22] VITALS: BP 144/76
[2021-06-28] MEDS: ONDANSETRON 4 MG ORAL DISINTEGRATING TAB PO PRN (19:22)
[2021-06-28] MEDS: ROSUVASTATIN 10 MG TAB (CRESTOR) PO SCH (21:43)
[2021-06-28] MEDS: SENNA 8.6 MG TAB (SENOKOT) PO SCH (21:43)
[2021-06-28] MEDS: MONTELUKAST 10 MG TAB PO SCH (21:43)
[2021-06-28] MEDS: ASPIRIN 81MG ENTERIC TABLET PO SCH (21:43)
[2021-06-29] MEDS: hydrOXYzine 10 MG TAB PO PRN (01:26)
[2021-06-29] MEDS: ACETAMINOPHEN TAB 650MG DOSE (2X325MG) PO PRN (01:27)
[2021-06-29 06:00] VITALS: BP 131/68
[2021-06-29] MEDS: FLUTICASONE HFA 110 MCG 12 GM INHALER (FLOVENT) INH SCH ×2 (09:00→09:50)
[2021-06-29] MEDS ORDERED: DICLOFENAC EPOLAMINE 1.3 % PATCH TOP SCH (09:00)
[2021-06-29] MEDS: NEXIUM 40MG CAPSULE (PATIENT'S OWN MED) PO SCH (09:01)
[2021-06-29] MEDS: TOLTERODINE TARTRATE 2 MG LA CAP (DETROL LA) PO SCH (09:02)
[2021-06-29] MEDS: SIMETHICONE 80MG CHEW TAB PO SCH (09:02)
[2021-06-29] MEDS: guaiFENesin 200 MG TAB PO SCH (09:02)
[2021-06-29] MEDS: DOCUSATE SODIUM 100MG CAPSULE PO SCH (09:02)
[2021-06-29] MEDS: FOLIC ACID 1 MG TAB PO SCH (09:02)
[2021-06-29] MEDS: APIXABAN 5 MG TAB (ELIQUIS) PO SCH (09:03)
[2021-06-29] MEDS: POTASSIUM CHLORIDE 10MEQ SR TABLET PO SCH (09:03)
[2021-06-29] MEDS: CYANOCOBALAMIN 500 MCG TAB PO SCH (09:03)
[2021-06-29] MEDS: GABAPENTIN 300 MG CAP PO SCH (09:03)
[2021-06-29] MEDS: PANTOPRAZOLE 40MG TAB (PROTONIX) PO SCH (09:03)
[2021-06-29] MEDS: DULoxetine 30MG CAPSULE (CYMBALTA) PO SCH (09:03)
[2021-06-29] MEDS: LORATADINE 10 MG TAB PO SCH (09:03)
[2021-06-29 09:04] VITALS: BP 131/68
[2021-06-29] MEDS: amLODIPine 5 MG TAB PO SCH (09:04)
[2021-06-29] MEDS: ACETAMINOPHEN 500 MG TAB PO SCH (09:04)
[2021-06-29] MEDS: CARVedilol 3.125 MG TAB PO SCH (09:04)
[2021-06-29] MEDS: LIDOCAINE 5% (LIDODERM) PATCH TD SCH (09:05)
[2021-06-29] MEDS: buPROPion **XL** TABLET 150MG (WELLBUTRIN XL) PO SCH (09:05)
[2021-06-29] MEDS: REMEDY PHYTOPLEX Z-GUARD PASTE 113GM TUBE (FROM STOREROOM PRODUCT) TOP SCH (09:05)
--- NOTE | 2021-06-29 09:49 | REP ---
INDICATION: acute change right shoulder pain. COMPARISON: X-ray and CT 07/05/2020 TECHNIQUE: Three views FINDINGS: Prior comminuted greater tuberosity fracture of the humeral head seen with contour deformity and impaction. There are well corticated fragments over the greater tuberosity humeral head which appear to represent avulsion fragments from that previous fracture. There is no subluxation or dislocation. The AC joint is unremarkable. Clavicle, ribs and scapula without evidence of acute fracture. Incidental note made of multilevel plate and screw fixation in the cervical spine and some surgical clips in the right neck as well. Dual pacer leads are also noted. IMPRESSION: 1. Contour deformity and impaction related to healed prior humeral head fracture seen on 07/05/2020 CT and x-ray. There are a few well corticated ossific densities over the greater tuberosity of the humeral head which I suspect are related to that prior fracture. I do not have history of interval trauma or other signs of acute fracture. No subluxation or dislocation. Please correlate clinically. <Electronically signed by Fabrice Singh > 06/29/21 1043
[2021-06-29] MEDS: COMBIVENT RESPIMAT 100-20MCG INHALER 4GM INH SCH (10:00)
[2021-06-29] MEDS ORDERED: DICL1PAT6 TOP (10:13)
[2021-06-29] MEDS ORDERED: MUSCCRE9 TOP (10:13)
[2021-06-29] MEDS ORDERED: GABA-282 PO (10:13)
[2021-06-29] MEDS ORDERED: LIDO5TD TD (10:13)
[2021-06-29] MEDS ORDERED: VITA500T40 PO (10:13)
[2021-06-29] MEDS ORDERED: COLA100C5 PO (10:13)
--- NOTE | 2021-06-29 10:15 | DS.PDOC ---
PM&R Discharge Summary Licensed Physical Therapy Assistant Discharge Note DATE OF ADMISSION: Jun 15, 2021 at 15:45 DATE OF DISCHARGE: 06.29.2021 DISCHARGE DIAGNOSES: -Abdominal pain status post laparoscopic peristomal hernia and ventral hernia repair with revision of ileostomy and lysis of adhesions 05/26/[address] Johnson -Status post small bowel obstruction -leukocytosis -Recurrent Ileus, possible re-obstruction, appears to be releasing, under observation -Intractable vomiting improving -Status posts episode of hospital-acquired delirium -Recurrent Leukocytosis, intermittent low grade fever. -Hypoxic encephalopathy -Hypercalcemia. -Hypoalbuminemia. -Hypokalemia -MIQUEL -T12 compression fracture. -Abdominal aortic aneurysm. - Sick Sinus syndrome. -Heart Murmur -Essential tremor. -COPD -Anxiety with depression. -Hypertension. -Fibromyalgia. -Right shoulder pain, probable bicipital tendinitis, possible heterotopic ossification secondary to prior fracture trauma PAST MEDICAL HISTORY: Sick Sinus syndrome status post pacemaker placement, September 2020 Heart murmur Clarification denies prior CVA s/p CEA, possible TIA. CAD, aortic stenosis with paroxysmal A. fib managed with Eliquis Hypertension. Hyperlipidemia Right humeral fracture June 2020 treated conservatively. T12 compression fracture Cervical stenosis and multilevel OA changes. Recurrent falls. COPD Depression and anxiety. 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 Her ileostomy also became ischemic and stenotic and on May 09, 2020 she underwent a laparotomy with lysis of adhesions and creation of a new right upper quadrant ileostomy History of peristomal hernia and was admitted to the hospital in mid February 2021 with a bowel obstruction secondary to bowel entrapped in her peristomal hernia. This resolved with NG decompression and hydration colonoscopy on February 26 to evaluate her rectal stomp and it was determined that there was approximately 18 cm only of healthy rectum. Though there appeared to be a small portion of sigmoid above this, imaging suggests that this is scarred and nonfunctional S/P Cervical disckectomy/fusion surgery Cervical CT 03/18-'Status post anterior C4 through C6 plate and screw fusion post discectomy and placement of disc spacers S/P Carotid endarterectomy pacemaker implanted October 19, 2020 section and hysterectomy HOSPITAL COURSE: The patient was admitted once stable post op for lysis of adhesions/repair of ileostomy hernia/fluid collection 05/26/[address] Johnson , prior to that was noted to be hypoxic in the 80s and postoperatively demonstrated encephalopathy/delirium. She was enrolled in comprehensive PT/OT, speech, language pathology program. She received 24 hour nursing supervision and weekly team meetings were held to discuss her progress. Gen. surgery service was deborah alvaradoy consulted as we had to drop back on. initial attempts for oral intake over a week ago when patient experienced intractable vomiting despite zofran/phenergan. KUB showed ileus and compressed duodenum which began to clear with addition of IV Reglan and resuming NPO/ bowel rest. We then slowly progressed her oral intake from NPO/NGT with intermittent suction to clamping with trial full liquids by end of last week. Pain management was challenging from combined effect of generalized chronic pain and more acute post operative/bowel partial small bowel obstruction pain. Opiates were held, good result from IV Tylenol, additional pain management adjustments of increased Gabapentin and addition of Lidoderm patches helped manage low back and abdominal pain which began to ease once increased output gas/BM in ileostomy helped decompress backed up bowels. She got a dose of Morphine overnight one night from long term care pharmacist team, slowed bowel activity, improved with greater physical activity and dietary interventions. No further opiates permitted and strongly recommended to avoid future usage for pain management. IV discontinued and adequate PO intake noted with calorie count of soft then regular diet noted last 2 days with good output into ileostomy. However morning of discharge, patient noted acute right shoulder pain after doing some exercises in therapy with upper body reaching, strengthening, and notes similar discomfort to prior fracture in that area about a year ago. X-rays were obtained, confirming prior comminuted right humeral fracture with multiple avulsion fragments, negative for acute changes patient given Flector patch and sling for right shoulder and has appointment with Ortho 06.30.2021 for follow up, 07.02.2021 with primary care specialist. PHYSICAL EXAMINATION: VITAL SIGNS: GENERAL: Less distress, brighter affect HEENT: PERRL. Extraocular movements intact. Clear conjunctiva, healed anterior right endarterectomy scar, No point tenderness CT region, no adenopathy, full range of motion CARDIOVASCULAR: Regular rate and rhythm. III/ SM, pacemaker pectoral region LUNGS: Clear to auscultation bilaterally. No wheezes. No rhonchi. ABDOMEN: Soft, nontender, nondistended. Positive bowel sounds. +. Right lower quadrant osotomy full with small soft formed brown stool healing LLQ laparascopy site, non tender, healed old midline abdominal incision NEUROLOGICAL: Alert and oriented. Cranial nerves II through XII grossly intact. Sensation grossly intact EXTREMITIES: 5\5 strength all four extremities, decreased right shoulder abd uction or forward flexion with pain. No crepitus. Tender right biciptal tendon and AC joint region.. No peripheral edema SKIN: nazario-stoma site pink, no irritation. FUNCTIONAL STATUS AT DISCHARGE: Supine to Sit Modified Independant Sit to Supine Modified Independent Rolling Modified Independent Bed Mobility Notes Mod I with HOB slightly elevated Sit to Stand Standby Assist Stand to Sit Standby Assist Bed to Chair Standby Assist Chair to Bed Standby Assist Toilet/Commode Standby Assist Shower/Tub Contact Guard Assist Functional Transfer Notes: with 4ww, continues to require cuing at least 50% for safe turning and brake management Bathing Standby Assist Dressing-Upper Body Standby Assist Dressing-Lower Body Standby Assist Grooming Standby Assist OTHER TESTS: LABORATORY DATA: Please see below. IMAGES: Xray right shoulder Prior comminuted greater tuberosity fracture of the humeral head seen with contour deformity and impaction. There are well corticated fragments over the greater tuberosity humeral head which appear to represent avulsion fragments from that previous fracture. There is no subluxation or dislocation. The AC joint is unremarkable. Clavicle, ribs and scapula without evidence of acute fracture. Incidental note made of multilevel plate and screw fixation in the cervical spine and some surgical clips in the right neck as well. Dual pacer leads are also noted. ALLERGIES: See below. MEDICATIONS: See Below. DISCHARGE DISPOSITION: Home with TIME SPENT: Chart Review, examination and documentation 60 minutes. This document is generated using speech recognition software which may result in grammatical, typographical and individual word errors. Vital Signs/I&O Vital Sign - Last 24 Hours 06/28/21 06/28/21 06/28/21 06/29/21 13:57 19:22 21:45 06:00 Temp 97.9 98.0 98.3 Pulse 78 80 80 83 Resp 18 18 16 B/P (MAP) 144/65 (91) 144/76 (98) 144/76 131/68 (89) Pulse Ox 97 96 97 O2 Delivery Room Air Room Air Room Air 06/29/21 09:04 Pulse 83 B/P (MAP) 131/68 I&O- Last 24 Hours up to 6 AM 06/29/21 05:59 Intake Total 600 ml Balance 600 ml Microbiology Microbiology 06/22/21 Urine Culture - Final, Complete 06/22/21 Blood Culture - Final, Complete NO GROWTH AFTER 5 DAYS 06/22/21 Blood Culture - Final, Complete NO GROWTH AFTER 5 DAYS Medications Medications Current Medications Medications (Trade) Dose Ordered Sig/Nicolas Route PRN Reason Start Time Stop Time Status Last Admin Dose Admin Acetaminophen (Tylenol Suppository) 650 mg Q4HP PRN CO MILD PAIN or TEMP > 101 06/22/21 09:45 06/24/21 07:36 DC 06/22/21 14:54 Acetaminophen (Tylenol Suppository) 650 mg Q6HP PRN CO MILD PAIN or TEMP > 101 06/22/21 09:10 06/22/21 09:43 DC Acetaminophen (Tylenol Tab) 650 mg Q12HP PRN PO MILD PAIN or TEMP > 101 06/24/21 07:35 06/29/21 01:27 Acetaminophen (Tylenol Tab) 650 mg Q4HP PRN PO fever/MILD PAIN (PS 1-4) 06/15/21 14:50 06/22/21 09:55 DC 06/21/21 22:50 Acetaminophen (Tylenol Tab) 1,000 mg TID PO 06/24/21 09:00 06/29/21 09:04 Albuterol/ Ipratropium (Combivent Respimat 100-20mcg) 1 puff RTID INH 06/15/21 20:00 06/28/21 07:23 Amlodipine Besylate (Norvasc) 5 mg DAILY PO 06/16/21 09:00 06/29/21 09:04 Apixaban (Eliquis) 5 mg BID PO 06/15/21 21:00 06/22/21 10:30 DC 06/21/21 20:44 Apixaban (Eliquis) 5 mg BID PO 06/25/21 21:00 06/29/21 09:03 Aspirin (Ecotrin) 81 mg QHS PO 06/15/21 21:00 06/28/21 21:43 Bupropion HCl (Wellbutrin Xl) 150 mg DAILY PO 06/16/21 09:00 06/29/21 09:05 Carvedilol (COReg) 3.125 mg BID PO 06/15/21 21:00 06/29/21 09:04 Cyanocobalamin (Vitamin B12) 500 mcg DAILY PO 06/26/21 09:00 06/29/21 09:03 Dextrose/Sodium Chloride 1,000 ml @ 100 mls/hr Q10H IV 06/22/21 17:20 06/24/21 10:29 DC 06/24/21 08:21 Diclofenac Epolamine (Flector 1.3%) 1 patch Q12H TOP 06/29/21 09:00 06/29/21 09:12 Docusate Sodium (Colace) 100 mg BID PO 06/15/21 21:00 06/29/21 09:02 Duloxetine HCl (Cymbalta) 60 mg DAILY PO 06/16/21 09:00 06/29/21 09:03 Fluticasone Propionate (Flovent Hfa 110 Mcg) 2 puff BID INH 06/15/21 21:00 06/29/21 09:50 Folic Acid (Folic Acid) 1 mg DAILY PO 06/16/21 09:00 06/29/21 09:02 Gabapentin (Neurontin) 300 mg BID@0900,1800 PO 06/15/21 18:00 06/18/21 12:51 DC 06/18/21 09:12 Gabapentin (Neurontin) 600 mg QHS PO 06/15/21 21:00 06/18/21 12:51 DC 06/17/21 20:57 Gabapentin (Neurontin) 600 mg TID@0900,1800,2100 PO 06/18/21 18:00 06/29/21 09:03 Guaifenesin (Robitussin Tab) 400 mg TID PO 06/17/21 16:00 06/29/21 09:02 Hydroxyzine HCl (Atarax) 10 mg DAILYPRN PRN PO ANXIETY OR INSOMNIA 06/26/21 20:00 06/29/21 01:26 Hydroxyzine HCl (Atarax) 10 mg Q12H PRN PO ANXIETY OR INSOMNIA 06/24/21 11:35 06/26/21 07:25 DC 06/25/21 20:31 Hydroxyzine HCl (Atarax) 10 mg Q6HP PRN PO ANXIETY/AGITATION 06/23/21 14:45 06/24/21 11:35 DC 06/23/21 22:12 Lactated Ringer's 1,000 ml @ 125 mls/hr Q8H IV 06/22/21 09:05 06/22/21 17:18 DC 06/22/21 09:44 Lidocaine (Lidoderm Patch) 1 patch DAILY TD 06/22/21 09:00 06/29/21 09:05 Loratadine (Claritin) 10 mg DAILY PO 06/16/21 09:00 06/29/21 09:03 Menthol/Methyl Salicylate (Bengay Cream) 1 dose TID PRN TOP BACK PAIN 06/27/21 20:00 06/27/21 22:01 Metoclopramide HCl (REGLAN INJection) 10 mg Q6H IV 06/22/21 15:00 06/25/21 11:41 DC 06/25/21 10:04 Metoclopramide HCl (REGLAN INJection) 10 mg Q8H IV 06/25/21 17:00 06/28/21 12:20 DC 06/28/21 08:12 Montelukast Sodium (Singulair) 10 mg QHS PO 06/15/21 21:00 06/28/21 21:43 Morphine Sulfate (Morphine Sulfate Inj) 2 mg Q4HP PRN IV MODERATE PAIN (PS 5-7) 06/23/21 22:35 06/24/21 07:36 DC 06/24/21 03:58 Non-Formulary Medication ( See Comment Field Below ) REMOVE LIDODERM PATCH DAILY@21 XX 06/22/21 21:00 06/28/21 21:45 Ondansetron HCl (Zofran Odt) 4 mg Q6HP PRN PO NAUSEA OR VOMITING 06/15/21 14:50 06/28/21 19:22 Pantoprazole Sodium (Protonix) 40 mg DAILY PO 06/16/21 09:00 06/29/21 09:03 Patient Own Medication (Patient'S Own Med) Nexium 40mg BID home med BID PO 06/23/21 09:00 06/29/21 09:01 Phenol (Chloraseptic [place]) 1 spray Q2HP PRN MT SORE THROAT 06/23/21 05:55 06/25/21 05:39 Potassium Chloride (Micro-K Extencaps) 10 meq DAILY PO 06/24/21 09:00 06/29/21 09:03 Potassium Chloride (Micro-K Extencaps) 20 meq DAILY PO 06/16/21 09:00 06/23/21 14:43 DC 06/23/21 09:24 Prochlorperazine (Compazine) 5 mg Q4HP PRN PO NAUSEA OR VOMITING 06/19/21 21:05 06/28/21 22:20 Rosuvastatin Calcium (Crestor) 10 mg QHS PO 06/15/21 21:00 06/28/21 21:43 Senna (Senokot) 1 tab QHS PO 06/15/21 21:00 06/28/21 21:43 Silver Sulfadiazine (Silvadene 1%) Q2D TOP 06/25/21 09:00 06/25/21 15:42 DC Simethicone (Mylicon) 80 mg 0800,1400 PO 06/19/21 14:00 06/29/21 09:02 Tolterodine Tartrate (Detrol La) 4 mg DAILY PO 06/16/21 09:00 06/29/21 09:02 Tramadol HCl (Ultram) 25 mg Q8HP PRN PO MODERATE PAIN (PS >7/10) 06/16/21 12:00 06/17/21 13:22 DC 06/17/21 09:54 Trazodone HCl (Desyrel) 25 mg QHS PO 06/19/21 21:00 06/22/21 21:34 DC 06/21/21 20:44 Trazodone HCl (Desyrel) 25 mg QHSP PRN PO INSOMNIA 06/19/21 20:45 Cancel Scheduled Amlodipine Besylate (Amlodipine Besylate) 5 Mg Tablet, 5 MG PO DAILY, (Reported) Apixaban (Eliquis) 5 Mg Tablet, 5 MG PO BID, (Reported) Aspirin (Aspirin) 81 Mg Tab.chew, 81 MG PO QHS, (Reported) B6/Folic/B12/Coffee/Phosphatid (Neuriva Plus Brain Perform Cap) 1.7MG-400 Capsule, 1 CAP PO QHS, (Reported) Bupropion HCl (Wellbutrin Xl) 150 Mg Tab.er.24h, 150 MG PO DAILY, (Reported) Carvedilol (Carvedilol) 3.125 Mg Tablet, 3.125 MG PO BID, (Reported) Cholecalciferol (Vitamin D3) (Vitamin D3) 25 Mcg Tablet, 25 MCG PO DAILY, (Reported) Cyanocobalamin (Vitamin B-12) (Vitamin B-12) 500 Mcg Tablet, 500 MCG PO DAILY Diclofenac Epolamine (Diclofenac Epolamine) 1.3% Patch, 1 PATCH TOP Q12H Docusate Sodium (Colace) 100 Mg Capsule, 100 MG PO BID Duloxetine Hcl (Duloxetine HCl) 30 Mg Capsule.dr, 60 MG PO DAILY, (Reported) Esomeprazole Magnesium (Nexium) 40 Mg Capsule.dr, 40 MG PO BID, (Reported) has to take name brand Folic Acid (Folic Acid) 1 Mg Tablet, 1 MG PO DAILY, (Reported) Gabapentin (Gabapentin) 300 Mg Capsule, 600 MG PO TID@0900,1800,2100 Lidocaine (Lidocaine) 5% Adh..patch, 1 PATCH TD DAILY Loratadine (Loratadine) 10 Mg Tablet, 10 MG PO DAILY, (Reported) Magnesium Oxide (Magnesium) 250 Mg Tablet, 250 MG PO DAILY, (Reported) Montelukast Sodium (Singulair) 10 Mg Tablet, 10 MG PO QHS, (Reported) Multivitamin,Therapeutic (Thera-Tabs) 1 Each Tablet, 1 TAB PO DAILY, (Reported) Potassium Chloride (Klor-Con M10) 10 Meq Tab.er.prt, 20 MEQ PO DAILY Rosuvastatin Calcium (Rosuvastatin Calcium) 10 Mg Tablet, 10 MG PO QHS, (Reported) Sennosides/Docusate Sodium (Senna Plus Tablet) 1 Each Tablet, 1 TAB PO BID Tolterodine Tartrate (Detrol LA) 4 Mg Cap.er.24h, 4 MG PO DAILY, (Reported) Scheduled PRN Albuterol Sulfate (Proair Hfa) 8.5 Gm Hfa.aer.ad, 2 PUFFS INH QID PRN for SHORTNESS OF BREATH, (Reported) Conjugated Estrogens (Premarin) 30 Gm Cream.appl, 1 APPLIC PV 2XW PRN for ATROPHY, (Reported) Fluticasone Propionate (Flovent Hfa) 110 Mcg/Act Aer.w.adap, 2 PUFF INH BID PRN for SHORTNESS OF BREATH, (Reported) Methyl Salicylate/Menthol (Muscle Rub Cream) 85 Gm Cream..g., 1 DOSE TOP TID PRN for BACK PAIN Allergies Coded Allergies: Penicillins (Verified Allergy, Severe, anaphylaxis, 05/18/21) pregabalin (Verified Allergy, Severe, ANAPHYLAXIS, 05/18/21) Cephalosporins (Verified Adverse Reaction, Severe, red man syndrome, 05/18/21) CAIN FERNANDEZ MD Jun 29, 2021 10:15
[2021-06-29 11:42] LABS: BASO # 0.1 10^3/uL (0.0-0.2); BASO % 0.4 % (0.0-1.0); EOS # 0.5 10^3/uL (0.0-0.5); EOS % 3.7 % (0.0-3.0); HEMATOCRIT 36.7 % (36.0-47.0); HEMOGLOBIN 11.6 g/dl (12.0-15.5); LYMPH # 1.6 10^3/uL (1.5-5.0); LYMPH % 11.1 % (24.0-44.0); MEAN CORPUSCULAR HEMOGLOBIN 29.1 pg (27.0-33.0); MEAN CORPUSCULAR HGB CONC 31.6 g/dl (32.0-36.5); MEAN CORPUSCULAR VOLUME 92.2 fl (80.0-96.0); MONO # 0.9 10^3/uL (0.0-0.8); MONO % 6.5 % (2.0-8.0); NEUTROPHILS % 77.9 % (36.0-66.0); PLATELET COUNT, AUTOMATED 192 10^3/uL (150-450); RED BLOOD COUNT 3.98 10^6/uL (4.00-5.40); WHITE BLOOD COUNT 14.2 10^3/uL (4.0-10.0)
[2021-06-29 12:16] LABS: ALBUMIN 2.8 GM/DL (3.2-5.2); ALT/SGPT 12 U/L (12-78); BILIRUBIN,TOTAL 0.2 MG/DL (0.2-1.0); BLOOD UREA NITROGEN 8 MG/DL (7-18); CALCIUM LEVEL 8.7 MG/DL (8.8-10.2); CARBON DIOXIDE LEVEL 19 MEQ/L (21-32); CHLORIDE LEVEL 113 MEQ/L (98-107); CREATININE FOR GFR 0.87 MG/DL (0.55-1.30); GLOMERULAR FILTRATION RATE > 60.0 (>45); GLUCOSE, FASTING 88 MG/DL (70-100); POTASSIUM SERUM 4.1 MEQ/L (3.5-5.1); SODIUM LEVEL 139 MEQ/L (136-145)
== END 2021-06-29 14:37 | disposition home health service (06) | DRG 948 ==
LOC: M PM&R 15:45
PROVIDERS: ADMIT Physical Medicine & Rehabilitation; ATTEND Physical Medicine & Rehabilitation
DX: R53.81 Other malaise (principal); K56.7 Ileus, unspecified; N17.9 Acute kidney failure, unspecified; R41.0 Disorientation, unspecified; I48.91 Unspecified atrial fibrillation; I71.4 Abdominal aortic aneurysm, without rupture; I49.5 Sick sinus syndrome; G25.0 Essential tremor; M79.7 Fibromyalgia; J44.9 Chronic obstructive pulmonary disease, unspecified; R53.1 Weakness; F41.9 Anxiety disorder, unspecified; F32.9 Major depressive disorder, single episode, unspecified; M54.9 Dorsalgia, unspecified; G89.29 Other chronic pain; D72.829 Elevated white blood cell count, unspecified; R26.81 Unsteadiness on feet; E88.09 Other disorders of plasma-protein metabolism, not elsewhere classified; E83.52 Hypercalcemia; M75.21 Bicipital tendinitis, right shoulder; J02.9 Acute pharyngitis, unspecified; I10 Essential (primary) hypertension; Z93.2 Ileostomy status; Z74.09 Other reduced mobility; Z74.1 Need for assistance with personal care; Z87.891 Personal history of nicotine dependence; Z86.73 Personal history of transient ischemic attack (TIA), and cerebral infarction without residual deficits; Z79.891 Long term (current) use of opiate analgesic; Z79.899 Other long term (current) drug therapy; Z79.01 Long term (current) use of anticoagulants; Z88.0 Allergy status to penicillin; Z88.1 Allergy status to other antibiotic agents; Z88.8 Allergy status to other drugs, medicaments and biological substances; Z95.0 Presence of cardiac pacemaker

== ENCOUNTER → 2021-07-06 | Outpatient (CLI) | payer MEDICARE, OTHER ==
[~2021-07-06] MED LIST changes: +DICL1PAT6 TOP; +LIDO5TD TD; +MUSCCRE9 TOP; +VITA500T40 PO
== END ==
LOC: M LABSMTC 11:53
PROVIDERS: ATTEND Family Medicine
DX: Z20.822 Contact with and (suspected) exposure to COVID-19 (principal)
CPT/HCPCS: C9803; U0003

== ENCOUNTER → 2021-07-14 | Outpatient (CLI) | payer MEDICARE, OTHER ==
[2021-07-14 15:42] LABS: BASO % 0.3 % (0.0-1.0); EOS # 0.2 10^3/uL (0.0-0.5); EOS % 3.9 % (0.0-3.0); HEMATOCRIT 33.6 % (36.0-47.0); HEMOGLOBIN 10.5 g/dl (12.0-15.5); LYMPH # 1.6 10^3/uL (1.5-5.0); LYMPH % 25.6 % (24.0-44.0); MEAN CORPUSCULAR HEMOGLOBIN 29.2 pg (27.0-33.0); MEAN CORPUSCULAR HGB CONC 31.3 g/dl (32.0-36.5); MEAN CORPUSCULAR VOLUME 93.6 fl (80.0-96.0); MONO # 0.4 10^3/uL (0.0-0.8); MONO % 7.1 % (2.0-8.0); NEUTROPHILS # 3.9 10^3/uL (1.5-8.5); NEUTROPHILS % 62.6 % (36.0-66.0); PLATELET COUNT, AUTOMATED 205 10^3/uL (150-450); RED BLOOD COUNT 3.59 10^6/uL (4.00-5.40); WHITE BLOOD COUNT 6.2 10^3/uL (4.0-10.0)
[2021-07-14 15:59] LABS: HEMOGLOBIN A1c 5.3 %
[2021-07-14 16:06] LABS: OSMOLALITY SERUM 273 MOSM/KG (280-301)
[2021-07-14 16:13] LABS: ALBUMIN 2.8 GM/DL (3.2-5.2); ALT/SGPT 13 U/L (12-78); BILIRUBIN,DIRECT < 0.1 MG/DL (0.0-0.2); BILIRUBIN,TOTAL 0.2 MG/DL (0.2-1.0); BLOOD UREA NITROGEN 5 MG/DL (7-18); CALCIUM LEVEL 8.9 MG/DL (8.8-10.2); CARBON DIOXIDE LEVEL 28 MEQ/L (21-32); CHLORIDE LEVEL 101 MEQ/L (98-107); GLOMERULAR FILTRATION RATE > 60.0 (>45); GLUCOSE, FASTING 84 MG/DL (70-100); POTASSIUM SERUM 4.6 MEQ/L (3.5-5.1); SODIUM LEVEL 134 MEQ/L (136-145); TOTAL PROTEIN 6.1 GM/DL (6.4-8.2)
== END ==
LOC: M PLALAB 14:21
PROVIDERS: ATTEND Physician Assistant
DX: E87.1 Hypo-osmolality and hyponatremia (principal)

== ENCOUNTER → 2021-07-25 | Outpatient (CLI) | payer MEDICARE, OTHER | LOC: M LABSMTC 09:38 | PROVIDERS: ATTEND Family Medicine | DX: Z11.52 Encounter for screening for COVID-19 (principal) ==

== ENCOUNTER → 2021-07-25 | Outpatient (CLI) | payer MEDICARE, OTHER ==
--- NOTE | 2021-07-25 10:32 | REP ---
INDICATION: PLEURODYNIA,PAIN RIGHT HIP COMPARISON: None. TECHNIQUE: Frontal view of the pelvis with neutral and frog lateral views of the right hip. FINDINGS: Age-related degenerative changes noted. Hip joints demonstrate mildly increased sclerosis to the acetabular roof with very subtle marginal spurring and mild joint space narrowing. No further overt osteoarthritic changes are appreciated. There is no evidence for acute fracture or dislocation. IMPRESSION: Age-related degenerative changes to the pelvis and hips. <Electronically signed by Ez Hurd > 07/25/21 1027
--- NOTE | 2021-07-25 10:34 | REP ---
INDICATION: PLEURODYNIA,PAIN RIGHT HIP COMPARISON: None. TECHNIQUE: Frontal view of the chest with multiple views of the right hemithorax. Five total views. FINDINGS: Frontal view of the chest demonstrates chronic appearing changes without acute cardiopulmonary process, contusion, effusion, or pneumothorax. Multiple views of the hemithorax demonstrates no acute rib fracture/injury or pathology. IMPRESSION: Age-appropriate examination. <Electronically signed by Ez Hurd > 07/25/21 0608
== END ==
LOC: M RAD 09:55
PROVIDERS: ATTEND Physician Assistant
DX: Z11.52 Encounter for screening for COVID-19 (principal); R07.81 Pleurodynia; E78.2 Mixed hyperlipidemia
CPT/HCPCS: 71101; 73502; C9803; U0003

== ENCOUNTER → 2021-08-13 | Outpatient (CLI) | payer MEDICARE, OTHER ==
[~2021-08-13] MED LIST changes: -AMIO200T3 PO; +AMIO200T49 PO; +ONDA-84 PO; -ONDA8TAB10 PO
== END ==
LOC: M LABSMTC 10:12
PROVIDERS: ATTEND Pediatrics
DX: Z11.52 Encounter for screening for COVID-19 (principal)
CPT/HCPCS: C9803; U0003